=== PATIENT | female | born 1965 | race African-American/Black ===

== ENCOUNTER 2016-10-24 15:32 | Emergency (ER) | payer OTHER ==
[~2016-10-24] VITALS: Ht 167.6 cm; Wt 121.9 kg
[~2016-10-24 15:32] MED LIST: AMOX500C3 PO; ASPCH81X PO; ATOR-54 PO; DEXT1CAP PO; GABA-112 PO; GUAISYP4 PO; HYDR-5688 PO; ISOS30TA35 PO; METO25TA56 PO; MOME100A INH; NICO1DIS TD; NRV5 PO; PARO1TAB29 PO; PRLSR20 PO
[2016-10-24 15:37] VITALS: TEMP 36.7; O2SAT 96; Ht 167.6 cm; Wt 121.9 kg
[2016-10-24] MEDS ORDERED: HYDR-3983 PO (16:12)
--- NOTE | 2016-10-24 16:22 | DIAGNOSTIC IMAGING REPORT ---
CHEST ONE VIEW PORTABLE CLINICAL HISTORY: Atypical chest pain COMPARISON STUDY: 10/01/2016 FINDINGS: The cardiac and mediastinal contours are normal. There is no evidence of focal pulmonary consolidation. There is no evidence of failure. No pleural effusions are visualized.[ IMPRESSION: No active disease in the chest. Electronically signed by: Gómez Verma M.D. 10/24/2016 4:20 PM
[2016-10-24 16:26] LABS: HEMATOCRIT 39.8 % (37-47); MEAN CELL VOLUME 93.2 fL (80-100); MEAN CORPUSCULAR HEMOGLOBIN 30.7 pg (25-34); MEAN CORPUSCULAR HGB CONC 32.9 g/dl (32-36); MEAN PLATELET VOLUME 11.3 fL (7.4-10.4); PLATELET COUNT 241 K/uL (130-400); RED BLOOD COUNT 4.27 M/uL (4.2-5.4); WHITE BLOOD COUNT 8.29 K/uL (4.8-10.8)
[2016-10-24] MEDS ORDERED: METHYLPREDNISOLONE 125 MG VIAL IV STA (16:29)
[2016-10-24] MEDS ORDERED: NITROGLYCERIN 0.4 MG SL PER TAB CHARGE SL PRN (16:30)
[2016-10-24] MEDS ORDERED: ALBUT/IPRATROP 3MG/0.5MG NEB 3 ML VIAL INH ONE (16:30)
[2016-10-24 16:33] LABS: BUN/CREATININE RATIO 11.5 (10-20); CALCIUM 8.9 mg/dl (8.5-10.1); CREATININE 1.1 mg/dl (0.60-1.20)
[2016-10-24 16:36] LABS: INR 0.9 (0.9-1.1); PARTIAL THROMBOPLASTIN RATIO 0.9; PROTHROMBIN TIME (PATIENT) 10.1 SECONDS (9.0-12.0)
[2016-10-24 16:38] LABS: ALB/GLOB RATIO 0.8 (0.9-2); CKMB/CK RATIO 0.8 (0-3.0)
--- NOTE | 2016-10-24 16:43 | EMERGENCY ROOM VISIT NOTE ---
History Report prepared by Lisa: Alexis Garcia Under the Supervision of: Dr. Андрей Reyes D.O. First contact with patient: 16:13 Chief Complaint: CHEST PAIN Stated Complaint: CHST PAIN Nursing Triage Summary: Patient presents with a one day history of left sided chest pain with radiation to left arm. Patient has a chronic history of intermittent chest pain, usually resolved with indur. Patient denies any SOB. Audible wheezing noted, patient has a signifficant smokig history. Negative nausea/vomiting or diaphoresis. History of Present Illness The patient is a 51 year old female who presents to the Emergency Room via ambulance with complaints of persistent left sided chest pain beginning one day prior to arrival. She currently rates her discomfort as a 10/10 in severity. The patient associates shortness of breath, chest pain that radiates into her left shoulder and upper left back, left earache, difficulty swallowing, resolved headache, hot and cold episodes, and intermittent diaphoresis with today's symptoms. She states her chest pain has been worsening and constant today for the past fourteen hours. Her chest pain began yesterday in the early evening but went away while she slept. The patient notes a history of TIAs, in which, she experienced similar chest discomfort. She states she had a stress test, and two stents were placed around 2009. The patient notes she was last on Prednisone for three days, two weeks ago for similar throat symptoms. She states her doctor wanted her to be admitted but she declined at that time. The patient states she is working on quitting smoking, but she smoked four cigarettes yesterday. She notes she has an inhaler and a nebulizer that she uses every six hours. The patient notes a history of asthma. She states she was on a blood thinner, while she was in the hospital a couple of months ago. Pt denies LOC, fevers, visual changes, neck pain, nausea, vomiting, abdominal pain , melena, hematochezia, urinary symptoms, numbness, weakness, lymphadenopathy, rash, or other complaints. 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 A total of ten systems were reviewed and were otherwise negative. Past Medical & Surgical Medical Problems: (1) Acute coronary syndrome (2) Acute CVA (cerebrovascular accident) (3) Acute postoperative pain of right foot (4) Anxiety State Nos (5) Asthma exacerbation (6) Asthma, Unspecified (7) Asthmatic bronchitis (8) CAD (coronary artery disease) (9) Chest pain (10) Depressive Disorder Nec (11) Diab Estrellita Wo Compl, Type Ii Or Unspec Type, Not Uncntrld (12) Diabetes (13) Exacerbation of chronic back pain (14) Exacerbation of chronic back pain (15) Fall (16) Hyperlipidemia Nec/Nos (17) Hypertension Nos (18) Ischemic cerebrovascular accident (CVA) of frontal lobe (19) Left elbow pain (20) Lower back pain (21) Lumbar Disc Displacement (22) Lumbosacral Neuritis Nos (23) Migraine (24) Non-hemorrhagic cerebrovascular accident (25) Osteoarthros Nos-Unspec (26) Posttraumatic Stress Disorder (27) Precordial chest pain (28) Received intravenous tissue plasminogen activator (t-PA) in emergency department (29) Unstable angina Surgical Problems: (1) Stented coronary artery Family History Diabetes mellitus Hypertension Social History Smoking Status: Current Every Day Smoker Alcohol Use: none Drug Use: none Marital Status: in relationship Housing Status: lives with family Occupation Status: unemployed Current/Historical Medications Scheduled Amlodipine Besylate (Amlodipine Besylate), 5 MG PO QAM Amoxicillin (Amoxil), 500 MG PO BID Aspirin (Aspirin Chewable), 81 MG PO QAM Atorvastatin (Lipitor), 40 MG PO QPM Azithromycin (Zithromax Z-Shaan), 0 PO UD Gabapentin (Neurontin), 100 MG PO BID Isosorbide Mononitrate Ext Rel (Imdur Ext Rel), 30 MG PO DAILY Methylprednisolone (Medrol Dosepak), 1 PKT PO UD Metoprolol Tartrate (Lopressor) (Lopressor), 1 TAB PO BID Mometasone Furoate-Formoterol (Dulera 100/5 Mcg), 2 PUFFS INH BID Nicotine (Hm Nicotine Transdermal S), 1 DOSE TD DIRECTED Omeprazole (Prilosec), 20 MG PO QAM Paroxetine (Paxil), 40 MG PO QAM Scheduled PRN Albuterol Hfa (Ventolin Hfa), 2 PUFF INH Q4-6H PRN for Shortness of Breath Hydrocodone/Acetaminophen 7.5MG/325MG ([place] 7.5MG/325MG), 1 TAB PO QID PRN for Pain Maalox/Diphen/Visc. Yahir/Glyc (Magic Swizzle), 5 ML PO Q4H PRN for SORE THROAT Promethazine (Phenergan ), 12.5 MG PO Q12 PRN for Migraine Allergies Coded Allergies: No Known Allergies (Unverified , 10/24/16) Physical Exam Vital Signs Date Time Temp Pulse Resp B/P Pulse Ox O2 Delivery O2 Flow Rate FiO2 10/24/16 19:10 94 20 124/74 97 10/24/16 16:56 90 24 104/59 98 10/24/16 16:46 88 16 95 Room Air 10/24/16 16:13 93 10/24/16 15:42 96 Room Air 10/24/16 15:37 96 Room Air 10/24/16 15:37 36.7 94 22 143/97 95 Room Air Physical Exam GENERAL: Awake, alert, well-appearing, in no distress HENT: Normocephalic, atraumatic. Left ear was dull behind the TM without erythema. Right ear normal. Mild erythema to posterior pharynx, no obvious exudate. EYES: Normal conjunctiva. Sclera non-icteric. NECK: Anterior cervical lymphadenopathy with mild tenderness. Supple. No nuchal rigidity. FROM. No JVD. RESPIRATORY: Coarse rales in the bilateral upper lobes. Rhonchi throughout. Diminished in the bases. CARDIAC: Mildly tachycardic, normal rhythm. No murmurs, gallops, or rubs. ABDOMEN: Soft, non-distended. No tenderness to palpation. No rebound or guarding. No masses. RECTAL: Deferred. MUSCULOSKELETAL: Chest examination reveals no tenderness. The back is symmetrical on inspection without obvious abnormality. There is no CVA tenderness to palpation. No joint edema. LOWER EXTREMITIES: Calves are equal size bilaterally and non-tender. No edema. No discoloration. NEURO: Normal sensorium. No sensory or motor deficits noted. SKIN: No rash or jaundice noted. Medical Decision & Procedures ER Provider Diagnostic Interpretation: X-ray: Per my interpretation, radiologist review. CHEST ONE VIEW PORTABLE CLINICAL HISTORY: Atypical chest pain COMPARISON STUDY: 10/01/2016 FINDINGS: The cardiac and mediastinal contours are normal. There is no evidence of focal pulmonary consolidation. There is no evidence of failure. No pleural effusions are visualized.[ IMPRESSION: No active disease in the chest. Electronically signed by: Gómez Verma M.D. 10/24/2016 4:20 PM Laboratory Results 10/24/16 16:00 10/24/16 16:00 Test 10/24/16 16:00 10/24/16 16:09 Red Blood Count 4.27 M/uL (4.2-5.4) Mean Corpuscular Volume 93.2 fL (80-100) Mean Corpuscular Hemoglobin 30.7 pg (25-34) Mean Corpuscular Hemoglobin Concent 32.9 g/dl (32-36) RDW Standard Deviation 47.9 fL (36.4-46.3) RDW Coefficient of Variation 14.2 % (11.5-14.5) Mean Platelet Volume 11.3 fL (7.4-10.4) Prothrombin Time 10.1 SECONDS (9.0-12.0) Prothromb Time International Ratio 0.9 (0.9-1.1) Activated Partial Thromboplast Time 24.5 SECONDS (21.0-31.0) Partial Thromboplastin Ratio 0.9 Anion Gap 7.0 mmol/L (3-11) Est Creatinine Clear Calc Drug Dose 79.6 ml/min Estimated GFR () 66.8 Estimated GFR (Non- 57.7 BUN/Creatinine Ratio 11.5 (10-20) Calcium Level 8.9 mg/dl (8.5-10.1) Total Bilirubin 0.2 mg/dl (0.2-1) Aspartate Amino Transf (AST/SGOT) 20 U/L (15-37) Alanine Aminotransferase (ALT/SGPT) 24 U/L (12-78) Alkaline Phosphatase 98 U/L (45-117) Total Creatine Kinase 139 U/L (26-192) Creatine Kinase MB 1.1 ng/ml (0.5-3.6) Creatine Kinase MB Ratio 0.8 (0-3.0) Total Protein 6.8 gm/dl (6.4-8.2) Albumin 3.0 gm/dl (3.4-5.0) Globulin 3.8 gm/dl (2.5-4.0) Albumin/Globulin Ratio 0.8 (0.9-2) Bedside Troponin I 0.000 ng/ml (0-0.045) Laboratory results reviewed by me Medications Administered Medications (Trade) Dose Ordered Sig/Jaxon Route Start Time Stop Time Status Last Admin Dose Admin Nitroglycerin (Nitrostat Tab) 0.4 mg Q5M PRN SL 10/24/16 16:30 10/24/16 19:43 DC 10/24/16 16:41 0.4 MG Albuterol/ Ipratropium (Duoneb) 12 ml ONE ONCE INH 10/24/16 16:30 10/24/16 16:31 DC 10/24/16 16:46 12 ML Methylprednisolone Sodium Succinate (Solu-Medrol IV) 125 mg NOW STAT IV 10/24/16 16:29 10/24/16 16:30 DC 10/24/16 16:41 125 MG Azithromycin 500 mg NOW ONCE PO 10/24/16 18:15 10/24/16 18:16 DC 10/24/16 19:03 500 MG Dexamethasone/ Nystatin/ Diphenhydramine HCl/Sucrose/ Microcrystalline Cellulose/Barcode (Decadron Conc Soln/Mycostatin Susp/Benadryl Syrup/Ora-Sweet Syrup/Ora-Plus Susp. Vehicle) TODAY@1815 ONCE PO 10/24/16 18:15 10/24/16 18:51 DC 10/24/16 19:03 5 ML ECG Indication: chest pain Rate (beats per minute): 91 Rhythm: normal sinus Findings: ST elevation (Very mild J-point elevation in V1 and V2.), other ( Regular intervals and segments. Not specific for ischemia, more consistent with LVH.) ED Course 1618: The patient was evaluated in room B10. A complete history and physical exam was performed. It is noted on the portable chest x-ray: No obvious infiltrate or consolidation. 1629: Ordered Solu-Medrol IV 125 mg IV. 1630: Ordered Duoneb 12 ml INH, Nitrostat Tab 0.4 mg SL. 1803: Reevaluated the patient at this time, and she is feeling much better. The lung sounds are clear on the left. Mild expiratory wheeze on the right. While in the room, the patient was on the phone with her doctor, and she will follow up with her physician on Monday. I discussed results and discharge instructions: She verbalized understanding and agreement. The patient is ready for discharge. 1814: Ordered Azithromycin 500 mg PO. Medical Decision Differential diagnosis: Etiologies such as infections, reactive airway disease, pneumonia, pneumothorax , COPD, CHF, cardiac ischemia, pulmonary embolism, musculoskeletal, gastrointestinal, as well as others were entertained. MDM: Patient is a 51-year-old female with history of COPD still smoking 1-2 packs of cigarettes a day. She has had chest pain or shortness of breath since yesterday and constant. She does have a remote history of coronary artery disease that was diagnosed with a stress test which she subsequently underwent 2 coronary stents placed 2 years ago. She's had stable coronary disease since however she has had uncontrolled hypertension. He has been started on new blood pressure medication within the last month. The chest pain that she is currently having is more consistent with a COPD. Denies ever having a heart attack. During her ED evaluation and treatment she was given an hour-long continuous nebulizer with chest x-ray and blood work. Chest x-ray was negative for infiltrate or consolidation. Lab work was unrevealing for anything significant and undetectable troponins. Given that her chest pain and shortness of breath. Greater than 24 hours a single troponin is significant enough to rule out ACS. She feels much better after this CNT and steroids. She also complains of a mildly sore throat and runny nose. Will treat her URI symptoms with pharyngitis as well as bronchospasm COPD exacerbation with steroids and antibiotics and symptomatic treatment she is using Magic mouthwash in the past and would like to use at again. Patient was very much improved with emergency department care provided. She remained stable and comfortable with care will follow-up his primary care provider in a couple of days and take medications as prescribed. The patient's presentation and history is c/w the impression provided. A partial list of DDx that has been considered is listed above. By the evaluation outlined above other emergent etiologies such as those listed in the differential, as well as others, were deemed relatively unlikely. The patient has been informed about today's findings. All questions were answered to satisfaction and understanding. They are pleased with the care provided. Patient education and return instructions were discussed as per my usual and the patient was discharged in stable condition as agreed upon by the patient. The patient was referred for close follow-up and informed that they will need to call to schedule appointment during the next business hours. The chart was completed utilizing a scribe and [employer] Speech voice recognition software. Utilizing these services results in errors at time as they are imperfect. Grammatical errors, random word insertions, pronoun errors, and incomplete sentences are an occasional consequence of this system due to software limitations, ambient noise, and hardware issues. Any formal questions or concerns about the content, text, or information contained within the body of this dictation should be directly addressed to the physician for clarification. Impression Primary Impression: COPD exacerbation Additional Impressions: Bronchospasm, Nonspecific chest pain Scribe Attestation The scribe's documentation has been prepared under my direction and personally reviewed by me in its entirety. I confirm that the note above accurately reflects all work, treatment, procedures, and medical decision making performed by me. Departure Information Dispostion Home / Self-Care Prescriptions Methylprednisolone (MEDROL DOSEPAK) 4 Mg Shaan 1 PKT PO UD for 6 Days, #1 PKT Prov: Андрей Reyes JR., DO 10/24/16 Maalox/Diphen/Visc. Yahir/Glyc (Magic Swizzle) 240 Ml Btl 5 ML PO Q4H Y for SORE THROAT for 5 Days, #1 BTL 0 Refills Prov: Андрей Reyes JR., DO 10/24/16 Azithromycin (ZITHROMAX Z-SHAAN) 250 Mg Tab 0 PO UD, #1 PKT 2 TABS DAY 1, THEN 1 TAB DAILY FOR 4 DAYS Prov: Андрей Reyes JR., DO 10/24/16 Referrals Del Bucio D.[facility] (PCP) Forms HOME CARE DOCUMENTATION FORM, IMPORTANT VISIT INFORMATION, Work Instructions Patient Instructions A Signature Page, ED COPD Flare, ED Chest Pain Atypical Unkn Cause, ED Pharyngitis Viral, My [facility] Additional Instructions Please take all of your medications as directed to completion. See your doctor on Monday. If you are using your nebulizer more than every 3 hours return to the emergency department. Please return to the emergency department if you developed any severe chest pain or any severe shortness of breath not improved with nebulizer.
[2016-10-24 16:46] VITALS: PULSE 88; O2SAT 95
[2016-10-24] MEDS ORDERED: AZITTAB PO (18:12)
[2016-10-24] MEDS ORDERED: MGCS/ PO (18:12)
[2016-10-24] MEDS ORDERED: METH4PAK PO (18:12)
[2016-10-24] MEDS ORDERED: MAGIC MOUTHWASH PO ONE (18:15)
[2016-10-24] MEDS ORDERED: AZITHROMYCIN 250 MG TAB PO ONE (18:15)
[2016-10-24] MEDS ORDERED: DEXAMETHASONE CONC SOLN 3.75 MG, NYSTATIN SUSP 30 ML, DiphenhydrAMINE HCL SYRUP 300 MG,... PO ONE ×5 (18:15)
[2016-10-24 19:10] VITALS: BP 124/74; PULSE 94; O2SAT 97
[2016-11-23] MEDS ORDERED: NTRSLP4 SL (09:39)
[2016-11-23] MEDS ORDERED: IMDSR60 PO (09:39)
[2016-11-23] MEDS ORDERED: NCDT14 TD (09:39)
[2016-11-23] MEDS ORDERED: LPR25 PO (09:39)
[2016-12-14] MEDS ORDERED: GLC/500 PO (12:11)
[2016-12-14] MEDS ORDERED: VNTHFA/IN INH (14:02)
== END 2016-10-24 19:25 | disposition home or self-care (01) ==
LOC: EDBD 15:32 → C.EDB 15:33
DX: J44.1 Chronic obstructive pulmonary disease with (acute) exacerbation (principal); J98.01 Acute bronchospasm; R07.9 Chest pain, unspecified; I25.10 Atherosclerotic heart disease of native coronary artery without angina pectoris; E11.9 Type 2 diabetes mellitus without complications; I10 Essential (primary) hypertension; M19.90 Unspecified osteoarthritis, unspecified site; F32.9 Major depressive disorder, single episode, unspecified; F41.9 Anxiety disorder, unspecified; E78.5 Hyperlipidemia, unspecified; F17.210 Nicotine dependence, cigarettes, uncomplicated; Z91.81 History of falling; Z86.73 Personal history of transient ischemic attack (TIA), and cerebral infarction without residual deficits; Z79.82 Long term (current) use of aspirin; Z79.899 Other long term (current) drug therapy

== ENCOUNTER 2016-11-21 11:48 | Observation (INO) | payer OTHER ==
[~2016-11-21] VITALS: Ht 167.6 cm; Wt 120.3 kg
[~2016-11-21 11:48] MED LIST changes: -DEXT1CAP PO; -GUAISYP4 PO; +HYDR-3983 PO; -HYDR-5688 PO; +MGCS/ PO
[2016-11-21] MEDS ORDERED: TIZA4CAP PO (12:11)
[2016-11-21] MEDS ORDERED: GLC/500 PO (12:11)
[2016-11-21] MEDS ORDERED: PRLSR20 PO (12:11)
[2016-11-21] MEDS ORDERED: ZNTT/150 PO (12:11)
[2016-11-21] MEDS ORDERED: NRN300 PO (12:11)
[2016-11-21 12:18] LABS: MEAN CELL VOLUME 93.4 fL (80-100); MEAN CORPUSCULAR HGB CONC 33.2 g/dl (32-36); MEAN PLATELET VOLUME 11.2 fL (7.4-10.4); PLATELET COUNT 289 K/uL (130-400); RED BLOOD COUNT 4.71 M/uL (4.2-5.4); WHITE BLOOD COUNT 6.77 K/uL (4.8-10.8)
--- NOTE | 2016-11-21 12:27 | DIAGNOSTIC IMAGING REPORT ---
SINGLE VIEW CHEST CLINICAL HISTORY: Atypical chest pain. FINDINGS: An AP, portable, upright chest radiograph is compared to study dated 10/24/2016 and correlated with chest CT dated 03/31/2016. The examination is degraded by portable technique, large body habitus, and patient rotation. The cardiomediastinal silhouette is unremarkable. There is mild elevation of left hemidiaphragm and minimal bibasilar atelectasis. The lungs and pleural spaces are clear. No pneumothorax is seen. The bony thorax is grossly intact. IMPRESSION: No active disease in the chest. Electronically signed by: Marin De La Rosa M.D. 11/21/2016 12:26 PM Dictated Date/Time: 11/21/2016 12:24 PM
[2016-11-21 12:28] LABS: INR 0.9 (0.9-1.1); PARTIAL THROMBOPLASTIN RATIO 0.9; PROTHROMBIN TIME (PATIENT) 10.1 SECONDS (9.0-12.0)
[2016-11-21 12:38] LABS: BUN/CREATININE RATIO 16.4 (10-20); CALCIUM 9.2 mg/dl (8.5-10.1); CREATININE 0.84 mg/dl (0.60-1.20); POTASSIUM 4.1 mmol/L (3.5-5.1)
[2016-11-21 12:43] LABS: ALB/GLOB RATIO 0.9 (0.9-2); CKMB/CK RATIO 1.1 (0-3.0)
[2016-11-21] MEDS ORDERED: MoRPHine SULFATE 4 MG/ML 1 ML CARP\\VIAL IV STA (12:48)
--- NOTE | 2016-11-21 12:56 | EMERGENCY ROOM VISIT NOTE ---
History First contact with patient: 12:37 Chief Complaint: CHEST PAIN Stated Complaint: CHEST PAIN Nursing Triage Summary: PT PRESENTS VIA ALS FROM HOME. PT HAD A SUDDEN ONSET OF SUBSTERNAL "SQUEEZING IN NATURE" CP RADIATING INTO HER BACK, NECK, AND LEFT SHOULDER. PT HAS HX OF CAD. 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 EN [facility] ADMINISTERED SL NITRO SPRAY X3 AND 324 ASA. PT ALSO VERBALIZES FOR THE PAST 4 DAYS SHE HAS HAD A GI ILLNESS WITH NAUSEA AND VOMITING BUT THAT SEEMS TO HAVE RESOLVED TODAY. History of Present Illness The patient is a 51 year old female who presents to the Emergency Room with complaints of chest pain. The patient states she had a GI bug last week for 4 days but that has completely resolved. The patient states she has had a cough and some shortness of breath over the last week. The patient states that she had a headache all day today. She states that around 11 AM she developed a sudden onset of pain in the left side of her chest that radiates to her neck. She states she noticed some tingling in her left hand. The ambulance was summoned. She was given nitroglycerin and aspirin in the ambulance. She states that the third dose of nitroglycerin took her pain from a 10/10 to a 7/ 10. The patient denies any fevers. She denies any weakness. She denies any abdominal pain, nausea or vomiting. The patient is a smoker. She reports history of TIA. The patient states that she had a negative cardiac catheterization 4-5 months ago. The patient is a diabetic. She is obese. She has hyperlipidemia. She states her father age 52 of a myocardial infarction. Review of Systems A 10 system review of systems was completed with positives and pertinent negatives listed in the HPI. Past Medical/Surgical History Medical Problems: (1) Acute coronary syndrome (2) Acute CVA (cerebrovascular accident) (3) Acute postoperative pain of right foot (4) Anxiety State Nos (5) Asthma exacerbation (6) Asthma, Unspecified (7) Asthmatic bronchitis (8) CAD (coronary artery disease) (9) Chest pain (10) Depressive Disorder Nec (11) Diab Estrellita Wo Compl, Type Ii Or Unspec Type, Not Uncntrld (12) Diabetes (13) Exacerbation of chronic back pain (14) Exacerbation of chronic back pain (15) Fall (16) Hyperlipidemia Nec/Nos (17) Hypertension Nos (18) Ischemic cerebrovascular accident (CVA) of frontal lobe (19) Left elbow pain (20) Lower back pain (21) Lumbar Disc Displacement (22) Lumbosacral Neuritis Nos (23) Migraine (24) Non-hemorrhagic cerebrovascular accident (25) Osteoarthros Nos-Unspec (26) Posttraumatic Stress Disorder (27) Precordial chest pain (28) Received intravenous tissue plasminogen activator (t-PA) in emergency department (29) Unstable angina Surgical Problems: (1) Stented coronary artery Family History Diabetes mellitus Hypertension Social History Smoking Status: Current Every Day Smoker Alcohol Use: none Drug Use: none Marital Status: in relationship Housing Status: lives with family Occupation Status: unemployed Current/Historical Medications Scheduled Amlodipine Besylate (Amlodipine Besylate), 5 MG PO QAM Aspirin (Aspirin Chewable), 81 MG PO QAM Atorvastatin (Lipitor), 40 MG PO QPM Gabapentin (Gabapentin), 300 MG PO Q12 Isosorbide Mononitrate Ext Rel (Imdur Ext Rel), 30 MG PO DAILY Metformin Hcl (Glucophage), 1,000 MG PO QAM Metformin Hcl (Glucophage), 500 MG PO QPM Metoprolol Tartrate (Lopressor) (Lopressor), 12.5 MG PO BID Mometasone Furoate-Formoterol (Dulera 100/5 Mcg), 2 PUFFS INH BID Omeprazole (Prilosec), 4 MG PO DAILY Paroxetine (Paxil), 40 MG PO QAM Ranitidine (Zantac), 150 MG PO HS Tizanidine (Zanaflex), 2-4 MG PO TID Scheduled PRN Albuterol Hfa (Ventolin Hfa), 2 PUFF INH Q4-6H PRN for Shortness of Breath Hydrocodone/Acetaminophen 7.5MG/325MG ([place] 7.5MG/325MG), 1 TAB PO QID PRN for Pain Promethazine (Phenergan ), 12.5 MG PO Q12 PRN for Migraine Allergies Coded Allergies: No Known Allergies (Unverified , 10/24/16) Physical Exam Vital Signs Date Time Temp Pulse Resp B/P Pulse Ox O2 Delivery O2 Flow Rate FiO2 11/21/16 14:28 135/92 11/21/16 14:18 104 21 98 11/21/16 13:58 119/73 1/30/17 13:48 97 20 97 11/21/16 13:28 129/81 11/21/16 13:23 111/88 11/21/16 13:14 102 11/21/16 13:03 100 20 116/76 97 Nasal Cannula 2.0 11/21/16 13:02 116/76 11/21/16 12:13 98 Nasal Cannula 2.0 11/21/16 12:13 98 Nasal Cannula 2.0 11/21/16 11:59 96 Room Air 11/21/16 11:59 36.7 110 20 136/89 96 Room Air Physical Exam VITALS: Vitals are noted on the nurse's note and reviewed by myself. Vital signs stable. GENERAL: This is a 51-year-old female, in no acute distress, nondiaphoretic, well-developed well-nourished. SKIN: The skin was without rashes, erythema, edema, or bruising. There is no tenting of the skin. Capillary reflex less than 2 seconds. HEAD: Normocephalic atraumatic. EARS: The external ears are normal in appearance. EYES: Pupils equal round and reactive to light and accommodation. Conjunctivae without injection, sclerae without icterus. Extraocular movements intact. NOSE: Patent, turbinates without inflammation or discharge. MOUTH: Mucous membranes moist. Tonsils are not enlarged. Pharynx without erythema or exudate. Uvula midline. Airway patent. Tongue does not deviate. NECK: Supple without nuchal rigidity. No JVD. HEART: Regular rate and rhythm without murmurs gallops or rubs. LUNGS: Clear to auscultation bilaterally without wheezes, rales or rhonchi. No retractions or accessory muscle use. ABDOMEN: Positive bowel sounds x 4. Soft, nontender, without masses or organomegaly. Wilkes sign negative. MUSCULOSKELETAL: No muscle atrophy, erythema, or edema noted. Full range of motion without joint tenderness in all extremities. With passive range of motion, the patient seems to have weakness in the left lower extremity but when asked to lift the leg off the bed she does so without any difficulty and can hold the left leg up off the bed without any difficulty. The mini extremities are otherwise unremarkable. NEURO: Patient was alert and oriented to person place and time. Cranial nerves II through XII intact. No focal neurological deficits. Medical Decision & Procedures ER Provider Diagnostic Interpretation: SINGLE VIEW CHEST CLINICAL HISTORY: Atypical chest pain. FINDINGS: An AP, portable, upright chest radiograph is compared to study dated 10/24/2016 and correlated with chest CT dated 03/31/2016. The examination is degraded by portable technique, large body habitus, and patient rotation. The cardiomediastinal silhouette is unremarkable. There is mild elevation of left hemidiaphragm and minimal bibasilar atelectasis. The lungs and pleural spaces are clear. No pneumothorax is seen. The bony thorax is grossly intact. IMPRESSION: No active disease in the chest. [~ rep ct add3]] CT SCAN OF THE BRAIN WITHOUT IV CONTRAST CLINICAL HISTORY: Headache. COMPARISON STUDY: CT the brain dated 12/28/2015. MRI of the brain dated 12/29/2015. TECHNIQUE: Unenhanced axial CT scan of the brain is performed from the vertex to the skull base. CT DOSE: 709.48 mGy.cm FINDINGS: Brain parenchyma: The brain parenchyma is normal in appearance. There is no hemorrhage, mass effect, or evidence of acute territorial ischemia by CT criteria. Jose-white matter is preserved. No extra-axial fluid collection is seen. Ventricles, sulci, cisterns: Prominent secondary to involutional change. Intracranial vasculature: There is atherosclerotic calcification of the cavernous carotid arteries. Calvarium: Unremarkable. Sinuses and mastoids: The visualized paranasal sinuses are clear. The mastoid air cells are well pneumatized. Orbits: Postoperative change is identified in the right orbit. The bony orbits are grossly intact. IMPRESSION: There is no hemorrhage, mass effect, or evidence of acute territorial ischemia by CT criteria. Laboratory Results Test 11/21/16 12:00 11/21/16 12:10 Prothrombin Time 10.1 SECONDS (9.0-12.0) Prothromb Time International Ratio 0.9 (0.9-1.1) Activated Partial Thromboplast Time 24.3 SECONDS (21.0-31.0) Partial Thromboplastin Ratio 0.9 Total Bilirubin 0.4 mg/dl (0.2-1) Aspartate Amino Transf (AST/SGOT) 14 U/L (15-37) Alanine Aminotransferase (ALT/SGPT) 25 U/L (12-78) Alkaline Phosphatase 102 U/L (45-117) Total Protein 8.0 gm/dl (6.4-8.2) Albumin 3.7 gm/dl (3.4-5.0) Globulin 4.3 gm/dl (2.5-4.0) Albumin/Globulin Ratio 0.9 (0.9-2) Bedside Troponin I 0.000 ng/ml (0-0.045) Medications Administered Medications (Trade) Dose Ordered Sig/Jaxon Route Start Time Stop Time Status Last Admin Dose Admin Morphine Sulfate (MoRPHine SULFATE INJ) 4 mg NOW STAT IV 11/21/16 12:48 11/21/16 15:16 DC 11/21/16 13:07 4 MG Procedure 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 They maintained a normal sinus rhythm without ectopy. ECG Indication: chest pain Rate (beats per minute): 103 Rhythm: sinus tachycardia Findings: nonspecific-ST abn Change: no significant change ED Course The patient was seen and examined. Previous visits were reviewed. The patient does not have a fever or leukocytosis. She does not have any significant electrolyte abnormalities. Cardiac enzymes were not elevated. INR was 0.9. EKG reveals nonspecific ST-T wave changes which is not significantly changed from previous CT scan of the brain does not reveal any acute abnormality The patient was given 4 mg IV morphine The patient presents with chest pain that radiates to her neck and left arm. She is obese. She has a history of diabetes, hyperlipidemia and hypertension. Her father of an AK at age 52. The patient also reports a history of TIA. The patient would benefit from further evaluation and management in hospital. I discussed the case with the [facility] hospitalist service and they will evaluate the patient. The case was discussed with Dr. Horton who agrees with the assessment and treatment plan Medical Decision DIFFERENTIAL DIAGNOSIS: Aortic dissection, myocarditis, pericarditis, cervical disc disease, costochondritis, herpes zoster, rib fracture, pleuritis, pneumonia , pulmonary embolus, tension pneumothorax, anxiety disorder, somatoform disorder , choledocholithiasis, status, esophagitis, esophageal spasm, esophageal reflux , esophageal rupture, pancreatitis, peptic ulcer disease, cardiac ischemia, ST elevation AK, acute coronary syndrome, arrhythmia, coronary artery vasospasm. vavular heart disease, coronary artery disease, TIA, CVA, among others. Impression Primary Impression: Precordial chest pain Additional Impression: Headache Departure Information Referrals Del Bucio D.O.Int.Med. (PCP) Patient Instructions My [facility] Problem Qualifiers
--- NOTE | 2016-11-21 13:25 | DIAGNOSTIC IMAGING REPORT ---
CT SCAN OF THE BRAIN WITHOUT IV CONTRAST CLINICAL HISTORY: Headache. COMPARISON STUDY: CT the brain dated 12/28/2015. MRI of the brain dated 12/29/2015. TECHNIQUE: Unenhanced axial CT scan of the brain is performed from the vertex to the skull base. CT DOSE: 709.48 mGy.cm FINDINGS: Brain parenchyma: The brain parenchyma is normal in appearance. There is no hemorrhage, mass effect, or evidence of acute territorial ischemia by CT criteria. Jose-white matter is preserved. No extra-axial fluid collection is seen. Ventricles, sulci, cisterns: Prominent secondary to involutional change. Intracranial vasculature: There is atherosclerotic calcification of the cavernous carotid arteries. Calvarium: Unremarkable. Sinuses and mastoids: The visualized paranasal sinuses are clear. The mastoid air cells are well pneumatized. Orbits: Postoperative change is identified in the right orbit. The bony orbits are grossly intact. IMPRESSION: There is no hemorrhage, mass effect, or evidence of acute territorial ischemia by CT criteria. Electronically signed by: Marin De La Rosa M.D. 11/21/2016 1:24 PM Dictated Date/Time: 11/21/2016 1:20 PM
[2016-11-21] MEDS ORDERED: ONDANSETRON INJ 2 MG/ML 2 ML VIAL IV PRN (14:45)
[2016-11-21] MEDS ORDERED: ALUMINUM/MAGNESIUM/SIMETH (MAALOX MAX) 30 ML UDC PO PRN (14:45)
[2016-11-21] MEDS ORDERED: ACETAMINOPHEN 325 MG TAB PO PRN (14:45)
[2016-11-21] MEDS ORDERED: POLYETHYLENE (MIRALAX) 17 GM PACK PO PRN (14:45)
[2016-11-21] MEDS ORDERED: HYDROCODONE/ACETAMINOPHEN 7.5/325MG TAB PO PRN (14:45)
[2016-11-21] MEDS ORDERED: MAGNESIUM HYDROXIDE SUSP 30 ML UDC PO PRN (14:45)
[2016-11-21] MEDS ORDERED: NITROGLYCERIN 0.4 MG SL PER TAB CHARGE SL PRN (14:45)
--- NOTE | 2016-11-21 14:47 | History and Physical ---
History & Physical Date & Time of Service: Nov 21, 2016 at 14:43 Chief Complaint: Chest Pain Primary Care Physician: Del Bucio D.O.Int.Med. History of Present Illness Source: patient, clinic records, hospital records Ms. Islas is a 51 y/o female with PMHx of CAD S/P PCI x 2 with Stent, TIA, Asthma, T2DM, HLD, HTN, Obesity, Tobacco Abuse who presents to the ED c/o sudden onset of L sided CP with radiation to the back and neck with numbness/tingling of L arm that started at 1100 on 11/21/16. She states when she woke up she was her normal self and was standing in the kitchen cooking when the CP occurred. Per patient pointing the area of the most pain is under the L breast with radiation up to the neck. She describes this pain as an ache with exacerbation of a sharp sensation. Rates the pain a 10/10 with improvement to 7/ 10 with Nitro SL spray x 3 and ASA 324 mg en route to ED. Exacerbated with deep breathing but cannot delineate alleviating factors. Associated SOB when pain exacerbates. Reports multiple episodes of similar chest pain in the past prior to the catheterizations. Also reports chronic neck and back pain but states the pain today is not similar to the pain she has from that. Does report LUE and LLE weakness that is greater than baseline. Reports recent GI illness over passed 4 days that has resolved today. Reports nausea and vomiting with this illness. Her last cardiac catheterization was 2014 which was clean. Per [employer], suggestion of Prinzmetal's angina. FMHx significant for father who at 52 due to [place]. She denies fever/chills, N/V, abdominal pain, constipation /diarrhea. In the ED, cardiac enzymes initially negative. EKG with sinus tachy without ST elevations or ischemia present. Head CT negative for acute intracranial findings. CXR without infectious findings. Past Medical/Surgical History Medical Problems: (1) Acute coronary syndrome Status: Resolved (2) Acute CVA (cerebrovascular accident) Status: Resolved (3) Acute postoperative pain of right foot Status: Resolved (4) Anxiety State Nos Status: Chronic (5) Asthma, Unspecified Status: Chronic (6) CAD (coronary artery disease) Status: Chronic (7) Chest pain Status: Resolved (8) Depressive Disorder Nec Status: Chronic (9) Diab Estrellita Wo Compl, Type Ii Or Unspec Type, Not Uncntrld Status: Chronic (10) Diabetes Status: Chronic (11) Exacerbation of chronic back pain Status: Resolved (12) Exacerbation of chronic back pain Status: Resolved (13) Fall Status: Resolved (14) Hyperlipidemia Nec/Nos Status: Chronic (15) Hypertension Nos Status: Chronic (16) Ischemic cerebrovascular accident (CVA) of frontal lobe Status: Resolved (17) Left elbow pain Status: Resolved (18) Lower back pain Status: Chronic (19) Lumbar Disc Displacement Status: Chronic (20) Lumbosacral Neuritis Nos Status: Chronic (21) Migraine Status: Chronic (22) Non-hemorrhagic cerebrovascular accident Status: Resolved (23) Osteoarthros Nos-Unspec Status: Chronic (24) Posttraumatic Stress Disorder Status: Chronic (25) Precordial chest pain Status: Resolved (26) Received intravenous tissue plasminogen activator (t-PA) in emergency department Status: Resolved (27) Unstable angina Status: Resolved Surgical Problems: (1) Stented coronary artery Status: Chronic Family History Diabetes mellitus Hypertension Social History Smoking Status: Current Every Day Smoker Drug Use: none Marital Status: in relationship Housing status: lives with significant other Occupational Status: unemployed Immunizations History of Influenza Vaccine: Yes Influenza Vaccine Date: Aug 17, 2016 History of Tetanus Vaccine?: No History of Pneumococcal: Yes Pneumococcal Date: Sep 07, 2015 History of Hepatitis B Vaccine: No Multi-Drug Resistant Organisms History of MDRO: No Allergies Coded Allergies: No Known Allergies (Unverified , 10/24/16) Home Medications Scheduled Amlodipine Besylate (Amlodipine Besylate), 5 MG PO QAM Aspirin (Aspirin Chewable), 81 MG PO QAM Atorvastatin (Lipitor), 40 MG PO QPM Gabapentin (Gabapentin), 300 MG PO Q12 Isosorbide Mononitrate Ext Rel (Imdur Ext Rel), 30 MG PO DAILY Metformin Hcl (Glucophage), 1,000 MG PO QAM Metformin Hcl (Glucophage), 500 MG PO QPM Metoprolol Tartrate (Lopressor) (Lopressor), 12.5 MG PO BID Mometasone Furoate-Formoterol (Dulera 100/5 Mcg), 2 PUFFS INH BID Omeprazole (Prilosec), 4 MG PO DAILY Paroxetine (Paxil), 40 MG PO QAM Ranitidine (Zantac), 150 MG PO HS Tizanidine (Zanaflex), 2-4 MG PO TID Scheduled PRN Albuterol Hfa (Ventolin Hfa), 2 PUFF INH Q4-6H PRN for Shortness of Breath Hydrocodone/Acetaminophen 7.5MG/325MG ([place] 7.5MG/325MG), 1 TAB PO QID PRN for Pain Promethazine (Phenergan ), 12.5 MG PO Q12 PRN for Migraine Review of Systems Constitutional: No chills, No fever Eyes: No worsening of vision Respiratory: + cough, + shortness of breath Cardiovascular: + chest pain Abdomen: No nausea, No pain, No vomiting Musculoskeletal: + joint pain (neck pain) Genitourinary - Female: No dysuria Neurologic: + numbness/tingling (L arm), + weakness (LUE and LLE) Integumentary: No rash Physical Exam Vital Signs Date Time Temp Pulse Resp B/P Pulse Ox O2 Delivery O2 Flow Rate FiO2 11/21/16 13:14 102 11/21/16 13:03 100 20 116/76 97 Nasal Cannula 2.0 11/21/16 12:13 98 Nasal Cannula 2.0 11/21/16 12:13 98 Nasal Cannula 2.0 11/21/16 11:59 96 Room Air 11/21/16 11:59 36.7 110 20 136/89 96 Room Air General Appearance: WD/WN, + mild distress, + obese Head: normocephalic, atraumatic Eyes: PERRL, sclerae normal ENT: hearing grossly normal Neck: supple, no JVD, trachea midline Respiratory/Chest: lungs clear, normal breath sounds, no respiratory distress, no accessory muscle use Cardiovascular: no gallop, no murmur, + tachycardia Abdomen/GI: normal bowel sounds, non tender, soft Extremities/Musculoskelatal: no pedal edema Neurologic/Psych: alert, oriented x 3, + motor weakness (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, flexion, and extension; RLE weakness to dorsiflexion/plantarflexion and flexion at hip) Skin: normal color, warm/dry Diagnostics Laboratory Results Results Past 24 Hours Test 11/21/16 12:00 11/21/16 12:10 Range/Units White Blood Count 6.77 4.8-10.8 K/uL Red Blood Count 4.71 4.2-5.4 M/uL Hemoglobin 14.6 12.0-16.0 g/dL Hematocrit 44.0 37-47 % Mean Corpuscular Volume 93.4 80-100 fL Mean Corpuscular Hemoglobin 31.0 25-34 pg Mean Corpuscular Hemoglobin Concent 33.2 32-36 g/dl RDW Standard Deviation 47.9 36.4-46.3 fL RDW Coefficient of Variation 14.0 11.5-14.5 % Platelet Count 289 130-400 K/uL Mean Platelet Volume 11.2 7.4-10.4 fL Prothrombin Time 10.1 9.0-12.0 SECONDS Prothromb Time International Ratio 0.9 0.9-1.1 Activated Partial Thromboplast Time 24.3 21.0-31.0 SECONDS Partial Thromboplastin Ratio 0.9 Sodium Level 140 136-145 mmol/L Potassium Level 4.1 3.5-5.1 mmol/L Chloride Level 107 98-107 mmol/L Carbon Dioxide Level 23 21-32 mmol/L Anion Gap 10.0 3-11 mmol/L Blood Urea Nitrogen 14 7-18 mg/dl Creatinine 0.84 0.60-1.20 mg/dl Est Creatinine Clear Calc Drug Dose 104.2 ml/min Estimated GFR () 92.6 Estimated GFR (Non- 79.9 BUN/Creatinine Ratio 16.4 10-20 Random Glucose 100 70-99 mg/dl Calcium Level 9.2 8.5-10.1 mg/dl Total Bilirubin 0.4 0.2-1 mg/dl Aspartate Amino Transf (AST/SGOT) 14 15-37 U/L Alanine Aminotransferase (ALT/SGPT) 25 12-78 U/L Alkaline Phosphatase 102 45-117 U/L Total Creatine Kinase 97 26-192 U/L Creatine Kinase MB 1.1 0.5-3.6 ng/ml Creatine Kinase MB Ratio 1.1 0-3.0 Total Protein 8.0 6.4-8.2 gm/dl Albumin 3.7 3.4-5.0 gm/dl Globulin 4.3 2.5-4.0 gm/dl Albumin/Globulin Ratio 0.9 0.9-2 Bedside Troponin I 0.000 0-0.045 ng/ml Diagnostic Radiology CT SCAN OF THE BRAIN WITHOUT IV CONTRAST CLINICAL HISTORY: Headache. COMPARISON STUDY: CT the brain dated 12/28/2015. MRI of the brain dated 12/29/2015. TECHNIQUE: Unenhanced axial CT scan of the brain is performed from the vertex to the skull base. CT DOSE: 709.48 mGy.cm FINDINGS: Brain parenchyma: The brain parenchyma is normal in appearance. There is no hemorrhage, mass effect, or evidence of acute territorial ischemia by CT criteria. Jose-white matter is preserved. No extra-axial fluid collection is seen. Ventricles, sulci, cisterns: Prominent secondary to involutional change. Intracranial vasculature: There is atherosclerotic calcification of the cavernous carotid arteries. Calvarium: Unremarkable. Sinuses and mastoids: The visualized paranasal sinuses are clear. The mastoid air cells are well pneumatized. Orbits: Postoperative change is identified in the right orbit. The bony orbits are grossly intact. IMPRESSION: There is no hemorrhage, mass effect, or evidence of acute territorial ischemia by CT criteria. SINGLE VIEW CHEST CLINICAL HISTORY: Atypical chest pain. FINDINGS: An AP, portable, upright chest radiograph is compared to study dated 10/24/2016 and correlated with chest CT dated 03/31/2016. The examination is degraded by portable technique, large body habitus, and patient rotation. The cardiomediastinal silhouette is unremarkable. There is mild elevation of left hemidiaphragm and minimal bibasilar atelectasis. The lungs and pleural spaces are clear. No pneumothorax is seen. The bony thorax is grossly intact. IMPRESSION: No active disease in the chest. EKG Sinus tachycardia Possible Left atrial enlargement Left ventricular hypertrophy Nonspecific T wave abnormality Abnormal ECG When compared with ECG of 24-OCT-2016 15:37, No significant change was found Confirmed by BLAINE SIERRA MD ([id number]) on 11/21/2016 2:33:47 PM Impression Assessment and Plan Ms. Islas is a 51 y/o female with PMHx of CAD S/P PCI x 2 with Stent, TIA, Asthma, T2DM, HLD, HTN, Obesity, Tobacco Abuse who presents to the ED c/o sudden onset of L sided CP with radiation to the back and neck with numbness/tingling of L arm that started at 1100 on 11/21/16. Chest Pain: ACS vs Prinzmetal's vs Musculoskeletal: - Patient pinpoints pain in L Chest under breast with radiation and describes this as the pain she has had in the past prior to catheterization -- Significant risk factors of obesity, tobacco abuse, known CAD, T2DM, HTN, HLD - Morphine 2 mg IV PRN and Nitro 0.4 mg SL PRN - ASA 81 mg daily - Serial cardiac enzymes - Stress Echo HTN; HLD; CAD S/P PCI x 2: - Amlodipine 5 mg daily - Atorvastatin 40 mg daily - Imdur 30 mg daily - Metoprolol Tartrate 12.5 mg BID LUE and LLE Weakness: - Patient reports baseline L sided weakness but reports symptoms worsening today - MRI Brain - pending T2DM: - Hold Metformin - due to plan for MRI Combo - SSI - goal range 100-150; correction factor 35 - HbA1c GERD: - Zantac 150 mg HS - Protonix 40 mg daily DVT Prophylaxis: - Will withhold chemical prophylaxis until MRI confirms no intracranial findings Code Status: - FULL RESUSCITATION Level of Care Telemetry Resuscitation Status FULL RESUSCITATION VTE Prophylaxis VTE Risk Assessment Done? Y/N: Yes Risk Level: Moderate Assessment and Plan Attending Addendum: I have physically seen and examined this patient, have directed their medical care, have supervised the PA's activity, and agree with the H&P as noted above, with the following changes: NONE.
[2016-11-21] MEDS ORDERED: IV FLUIDS COMPLETED PRN (15:15)
[2016-11-21] MEDS: MoRPHine SULFATE 2 MG/ML CARP IV PRN ×3 (15:28→20:59)
[2016-11-21 15:45] VITALS: BP 107/70; PULSE 105; TEMP 36.7; O2SAT 97
[2016-11-21 15:59] VITALS: BP 184/85; PULSE 75; TEMP 36.4; O2SAT 95
[2016-11-21] MEDS ORDERED: GLUCOSE 10 TABS/TUBE PO PRN (16:00)
[2016-11-21] MEDS ORDERED: GLUCOSE 40% GEL 15 GM TUBE PO PRN (16:00)
[2016-11-21] MEDS ORDERED: DEXTROSE 50% 50 ML SYR IV PRN (16:00)
[2016-11-21] MEDS ORDERED: GLUCAGON FOR INJ 1 MG VIAL SQ PRN (16:00)
[2016-11-21] MEDS: INSULIN ASPART 100 UNITS/ML 3 ML PEN SC SCH ×2 (16:30→21:09)
[2016-11-21] MEDS ORDERED: NICOTINE 14 MG/24 HR TDSY TD PRN (17:30)
[2016-11-21 17:42] VITALS: BP 138/78; PULSE 111
[2016-11-21 19:04] VITALS: BP 137/87; PULSE 112; TEMP 37; O2SAT 95
[2016-11-21 20:54] VITALS: BP 125/80; PULSE 110; O2SAT 95
[2016-11-21] MEDS: GABAPENTIN 300 MG CAP PO SCH (21:06)
[2016-11-21] MEDS: ATORVASTATIN 40 MG TAB PO SCH (21:06)
[2016-11-21] MEDS: RANITIDINE HCL 150 MG TAB PO SCH (21:06)
[2016-11-21] MEDS: METOPROLOL TARTRATE 25 MG TAB PO SCH (21:06)
[2016-11-21] MEDS ORDERED: GADAVIST IV PRN (23:00)
[2016-11-21 23:46] VITALS: BP 125/80; PULSE 110; PULSE 111; TEMP 37; O2SAT 97; Ht 167.6 cm; Wt 120.3 kg
[2016-11-22] VITALS (10 sets, daily range): BP systolic 113–167; BP diastolic 72–95; PULSE 74–107; TEMP 36.4–36.8; O2SAT 92–99
[2016-11-22] MEDS: MoRPHine SULFATE 2 MG/ML CARP IV PRN ×6 (01:02→20:13)
[2016-11-22 01:27] LABS: CKMB/CK RATIO 0.6 (0-3.0)
[2016-11-22 06:36] LABS: BLOOD UREA NITROGEN 16 mg/dl (7-18); CALCIUM 8.7 mg/dl (8.5-10.1); CARBON DIOXIDE 23 mmol/L (21-32); CHLORIDE 108 mmol/L (98-107); CREATININE 0.83 mg/dl (0.60-1.20); GLUCOSE 110 mg/dl (70-99); SODIUM 140 mmol/L (136-145)
--- NOTE | 2016-11-22 06:48 | DIAGNOSTIC IMAGING REPORT ---
MRI OF THE BRAIN WITHOUT AND WITH IV CONTRAST CLINICAL HISTORY: Increasing left-sided weakness COMPARISON STUDY: CT scan dated 11/21/2016, MRI the brain dated 12/29/2015. TECHNIQUE: MRI of the brain was performed from the vertex to the skull base utilizing various T1 and T2 weighted sequences. Following the IV administration of 12 mL of Gadavist contrast, additional enhanced images were obtained. FINDINGS: Sagittal T1, axial diffusion, proton density and T2 weighted axial, coronal FLAIR, and pre and post axial T1-weighted images were acquired. These were supplemented with post gadolinium coronal T1 weighted images. No intra or extra-axial mass lesions are visualized. Axial diffusion-weighted images reveal no evidence of acute or subacute infarction. There is no evidence of ventricular dilatation. Proton density T2-weighted and FLAIR images reveal a few small foci of increased T2 signal within the white matter, likely a small vessel basis. The largest is located within the right frontal lobe measuring 4 mm. This remains unchanged from the preceding study. There is also a small subtle focus of increased T2 signal within the right lentiform nucleus, possibly related to an old lacunar infarct. There are no abnormal flow voids. There is no evidence of pathologic enhancement. There is a small right frontal scalp lipoma. IMPRESSION: No acute intracranial findings. No evidence of acute or subacute infarction. No evidence of intracranial mass. Electronically signed by: Gómez Verma M.D. 11/22/2016 6:46 AM Dictated Date/Time: 11/22/2016 6:42 AM
[2016-11-22 07:04] LABS: HEMATOCRIT 39.2 % (37-47); MEAN CELL VOLUME 95.4 fL (80-100); MEAN CORPUSCULAR HEMOGLOBIN 30.9 pg (25-34); MEAN PLATELET VOLUME 10.9 fL (7.4-10.4); PLATELET COUNT 248 K/uL (130-400); RED BLOOD COUNT 4.11 M/uL (4.2-5.4); WHITE BLOOD COUNT 6.88 K/uL (4.8-10.8)
[2016-11-22 07:10] LABS: ESTIMATED AVERAGE GLUCOSE 160 mg/dl; HA1C FLAG Normal (Normal)
[2016-11-22 07:12] LABS: MEAN CORPUSCULAR HGB CONC 32.4 g/dl (32-36)
[2016-11-22 07:27] LABS: MAGNESIUM 2.1 mg/dl (1.8-2.4); POTASSIUM 4.3 mmol/L (3.5-5.1)
[2016-11-22] MEDS: PANTOprazole SOD 40 MG TAB PO SCH (08:28)
[2016-11-22] MEDS: GABAPENTIN 300 MG CAP PO SCH ×2 (08:28→20:15)
[2016-11-22] MEDS: METOPROLOL TARTRATE 25 MG TAB PO SCH ×2 (08:28→20:17)
[2016-11-22] MEDS: ASPIRIN 81 MG ECTAB PO SCH (08:29)
[2016-11-22] MEDS: AMLODIPINE BESYLATE 5 MG TAB PO SCH (08:29)
[2016-11-22] MEDS: PAROXETINE 20 MG TAB PO SCH (08:29)
[2016-11-22] MEDS: INSULIN ASPART 100 UNITS/ML 3 ML PEN SC SCH ×4 (08:30→20:24)
[2016-11-22] MEDS ORDERED: ISOSORBIDE MONONITRATE 30 MG TABCR PO SCH (09:00)
--- NOTE | 2016-11-22 11:01 | Progress Note ---
Subjective Date of Service: Nov 22, 2016. Subjective Pt evaluation today including: conversation w/ patient, conversation w/ family , physical exam, chart review, lab review, review of studies, conversation w/ senior consultant, review of inpatient medication list Nurse reported has been asking frequent pain medication by oral or IV because of chest pain When I see her she has no chest pain, however described to me she has deep left chest pain radiation to the shoulder and neck No other complaint Has been sleeping a lot Problem List Medical Problems: (1) Abnormal EKG Status: Acute (2) Anxiety State Nos Status: Chronic (3) Asthma, Unspecified Status: Chronic (4) Bronchospasm Status: Acute (5) CAD (coronary artery disease) Status: Chronic (6) Depressive Disorder Nec Status: Chronic (7) Diab Estrellita Wo Compl, Type Ii Or Unspec Type, Not Uncntrld Status: Chronic (8) Diabetes Status: Chronic (9) Fall Status: Acute (10) Headache Status: Acute (11) Hyperlipidemia Nec/Nos Status: Chronic (12) Hypertension Nos Status: Chronic (13) Hypoxia Status: Acute (14) Lower back pain Status: Chronic (15) Lumbar Disc Displacement Status: Chronic (16) Lumbosacral Neuritis Nos Status: Chronic (17) Migraine Status: Chronic (18) Nonspecific chest pain Status: Acute (19) Osteoarthros Nos-Unspec Status: Chronic (20) Posttraumatic Stress Disorder Status: Chronic (21) Precordial chest pain Status: Acute (22) Precordial chest pain Status: Acute (23) Sacral contusion Status: Acute Review of Systems Constitutional: No chills, No fatigue, No fever, No problem reported, No sweats , No weakness, No weight loss Eyes: No diplopia, No discharge, No eye pain, No redness, No worsening of vision ENT: No dental problems, No hearing loss, No nasal symptoms, No sore throat, No tinnitus, No trouble swallowing, No unusual epistaxis Respiratory: No cough, No dyspnea at rest, No dyspnea on exertion, No hemoptysis, No shortness of breath, No sputum, No wheezing Cardiac: + see HPI, No PND, No claudication, No edema, No palpitations Abdomen: No constipation, No diarrhea, No nausea, No pain, No vomiting Musculoskeletal: No calf pain, No joint pain, No muscle pain, No swelling Female : No abnormal vaginal bleeding, No dysuria, No hematuria, No incontinence, No urinary frequency, No vaginal discharge Neurologic: No balance problems, No memory loss, No numbness/tingling, No paralysis, No vertigo, No weakness Psychiatric: No anhedonism, No anxiety, No depression symptoms, No insomnia, No substance abuse Heme: No abnormal bleeding/bruising, No clotting problems, No night sweats, No swollen lymph nodes Endo: No excessive thirst, No excessive urination, No fatigue Skin: No bleeding, No color change, No itch, No new/changing skin lesions, No rash Objective Vital Signs Date Time Temp Pulse Resp B/P Pulse Ox O2 Delivery O2 Flow Rate FiO2 11/22/16 07:47 36.4 97 18 167/92 99 Room Air 11/22/16 04:05 Room Air 11/22/16 03:52 36.8 107 16 143/95 94 Room Air 107 11/22/16 00:05 Room Air 11/21/16 23:46 37.0 110 20 125/80 97 111 11/21/16 20:54 110 125/80 95 Room Air 11/21/16 19:04 37.0 112 20 137/87 95 Room Air 11/21/16 17:42 111 138/78 11/21/16 15:59 36.4 75 20 184/85 95 Nasal Cannula 2.0 11/21/16 15:45 36.7 105 22 107/70 97 Nasal Cannula 2.0 11/21/16 15:18 106 21 96 11/21/16 14:58 123/79 11/21/16 14:48 106 14 99 11/21/16 14:28 135/92 11/21/16 14:18 104 21 98 11/21/16 13:58 119/73 11/21/16 13:48 97 20 97 11/21/16 13:28 129/81 11/21/16 13:23 111/88 11/21/16 13:14 102 11/21/16 13:03 100 20 116/76 97 Nasal Cannula 2.0 11/21/16 13:02 116/76 11/21/16 12:13 98 Nasal Cannula 2.0 11/21/16 12:13 98 Nasal Cannula 2.0 11/21/16 11:59 96 Room Air 11/21/16 11:59 36.7 110 20 136/89 96 Room Air Physical Exam General Appearance: WD/WN, no apparent distress, + obese Eyes: normal inspection, PERRL, EOMI, sclerae normal ENT: normal ENT inspection, hearing grossly normal, pharynx normal Neck: supple, no adenopathy, thyroid normal, no JVD, no carotid bruits, trachea midline Respiratory/Chest: chest non-tender, normal breath sounds, no respiratory distress, no accessory muscle use, + decreased breath sounds Cardiovascular: regular rate, rhythm, no edema, no gallop, no JVD, no murmur Abdomen: normal bowel sounds, non tender, soft, no organomegaly, no pulsatile mass Extremities: normal range of motion, non-tender, normal inspection, no pedal edema, no calf tenderness, normal capillary refill, pelvis stable Neurologic/Psychiatric: 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, no motor/sensory deficits, alert, normal mood/affect, oriented x 3 Skin: normal color, warm/dry, no rash Lymphatic: no adenopathy Laboratory Results Last 24 Hours Test 11/21/16 12:00 11/21/16 12:10 11/21/16 16:31 11/21/16 18:10 White Blood Count 6.77 K/uL Red Blood Count 4.71 M/uL Hemoglobin 14.6 g/dL Hematocrit 44.0 % Mean Corpuscular Volume 93.4 fL Mean Corpuscular Hemoglobin 31.0 pg Mean Corpuscular Hemoglobin Concent 33.2 g/dl RDW Standard Deviation 47.9 fL RDW Coefficient of Variation 14.0 % Platelet Count 289 K/uL Mean Platelet Volume 11.2 fL Prothrombin Time 10.1 SECONDS Prothromb Time International Ratio 0.9 Activated Partial Thromboplast Time 24.3 SECONDS Partial Thromboplastin Ratio 0.9 Sodium Level 140 mmol/L Potassium Level 4.1 mmol/L Chloride Level 107 mmol/L Carbon Dioxide Level 23 mmol/L Anion Gap 10.0 mmol/L Blood Urea Nitrogen 14 mg/dl Creatinine 0.84 mg/dl Est Creatinine Clear Calc Drug Dose 104.2 ml/min Estimated GFR () 92.6 Estimated GFR (Non- 79.9 BUN/Creatinine Ratio 16.4 Random Glucose 100 mg/dl Calcium Level 9.2 mg/dl Total Bilirubin 0.4 mg/dl Aspartate Amino Transf (AST/SGOT) 14 U/L Alanine Aminotransferase (ALT/SGPT) 25 U/L Alkaline Phosphatase 102 U/L Total Creatine Kinase 97 U/L 127 U/L Creatine Kinase MB 1.1 ng/ml < 0.5 ng/ml Creatine Kinase MB Ratio 1.1 Total Protein 8.0 gm/dl Albumin 3.7 gm/dl Globulin 4.3 gm/dl Albumin/Globulin Ratio 0.9 Bedside Troponin I 0.000 ng/ml Bedside Glucose 132 mg/dl Troponin I < 0.015 ng/ml Test 11/21/16 20:44 11/22/16 00:45 11/22/16 05:25 11/22/16 06:55 Bedside Glucose 177 mg/dl Total Creatine Kinase 179 U/L Creatine Kinase MB 1.0 ng/ml Creatine Kinase MB Ratio 0.6 Troponin I < 0.015 ng/ml Sodium Level 140 mmol/L Potassium Level mmol/L 4.3 mmol/L Chloride Level 108 mmol/L Carbon Dioxide Level 23 mmol/L Anion Gap 9.0 mmol/L Blood Urea Nitrogen 16 mg/dl Creatinine 0.83 mg/dl Est Creatinine Clear Calc Drug Dose 105.4 ml/min Estimated GFR () 94.0 Estimated GFR (Non- 81.1 BUN/Creatinine Ratio 19.0 Random Glucose 110 mg/dl Calcium Level 8.7 mg/dl Magnesium Level mg/dl 2.1 mg/dl White Blood Count 6.88 K/uL Red Blood Count 4.11 M/uL Hemoglobin 12.7 g/dL Hematocrit 39.2 % Mean Corpuscular Volume 95.4 fL Mean Corpuscular Hemoglobin 30.9 pg Mean Corpuscular Hemoglobin Concent 32.4 g/dl RDW Standard Deviation 48.4 fL RDW Coefficient of Variation 13.9 % Platelet Count 248 K/uL Mean Platelet Volume 10.9 fL Estimated Average Glucose 160 mg/dl Hemoglobin A1c 7.2 % Hepatitis C Antibody Screen NEG Test 11/22/16 07:40 Bedside Glucose 115 mg/dl Assessment and Plan 51 y/o female with PMHx of CAD S/P PCI x 2 with Stent, TIA, Asthma, T2DM, HLD, HTN, Obesity, Tobacco Abuse who presents to the ED c/o sudden onset of L sided CP with radiation to the back and neck with numbness/ tingling of L arm that started at 1100 on 1/30/17. She was admitted as observation in the hospital on 11/21/2016 Chest Pain: ACS vs Prinzmetal's vs Musculoskeletal: Her heart score is 4 with Significant risk factors of obesity, tobacco abuse, known CAD, T2DM, HTN, HLD Cardiac enzyme troponin were negative 3 Pending stress echo - Morphine 2 mg IV PRN and Nitro 0.4 mg SL PRN - ASA 81 mg daily HTN; HLD; CAD S/P PCI x 2: - Amlodipine 5 mg daily - Atorvastatin 40 mg daily - Imdur 30 mg daily - Metoprolol Tartrate 12.5 mg BID Morbid obesity with BMI 43: Has counselling her to follow-up with PCP with lifestyle modification I will check d-dimer to rule out PE because of her morbid obesity and risk of PE LUE and LLE Weakness: Totally resolved - Patient reports baseline L sided weakness but reports symptoms worsening upon admission - I feel it is nonspecific - Brain MRI was done has no CVA T2DM: - Hold Metformin - due to plan for MRI Combo - SSI - goal range 100-150; correction factor 35 - HbA1c 7.2 GERD: - Zantac 150 mg HS - Protonix 40 mg daily DVT Prophylaxis: Lovenox Code Status: - FULL RESUSCITATION Will consult cardiology if stress test positive Will discharge home if stress test negative Continued [facility] stay due to: multiple IV medications needed Discharge planning: home
[2016-11-22] MEDS ORDERED: METOPROLOL TARTRATE 1 MG/ML VIAL ONE (11:19)
[2016-11-22] MEDS ORDERED: ATROPINE SULFATE 0.1 MG/ML 5ML SYR ONE (11:19)
[2016-11-22] MEDS ORDERED: DOBUTamine HCL 12.5 MG/ML 20 ML VIAL ONE (11:19)
[2016-11-22] MEDS ORDERED: OPTIRAY 320 IV PRN (13:00)
--- NOTE | 2016-11-22 13:35 | DIAGNOSTIC IMAGING REPORT ---
CHEST CTA for PULMONARY ARTERIES CT DOSE: 614.85 mGy.cm HISTORY: Chest pain dyspnea TECHNIQUE: Multiaxial CT images of the chest were performed following the intravenous administration of contrast to evaluate the pulmonary arteries. Maximal intensity projection images were also obtained. COMPARISON STUDY: 03/31/2016 FINDINGS: There is a normal caliber thoracic aorta with no evidence for dissection. There is no evidence for pulmonary embolus. No pleural effusions. No pneumothorax. The liver and spleen are unremarkable. No mediastinal or hilar lymphadenopathy. The central airways are patent. The lungs are clear. IMPRESSION: No evidence for pulmonary embolus. Lungs are currently considered clear. Electronically signed by: Tl Grullon M.D. 11/22/2016 1:34 PM Dictated Date/Time: 11/22/2016 1:31 PM
--- NOTE | 2016-11-22 14:25 | DOBUTAMINE ECHO ---
*NOTICE TO RECEIVING REPUBL[employer] AGENCY This information is strictly Confidential and protected under [place] law. [place] law prohibits you from making any further disclosure of this information unless further disclosure is expressly permitted by the written consent of the person to whom it pertains or is authorized by law. A general authorization for the release of medical or other information is not sufficient for this purpose. Hospital accepts no responsibility if the information is made available to any other person, INCLUDING THE PATIENT. Interpretation Summary * The stress ECG response was normal * No arrhythmia were noted with stress. * Stress wall motion was normal. * The left ventricular ejection fraction increases normally with stress. The left ventricular end-systolic cavity size reduces post-stress (normal response). The left ventricular wall motion with stress is normal. * -- Conclusions -- * 1Negative dobutamine stress echo for myocardial ischemia at 89% MPHR. * Left ventricular systolic function is mild to moderately reduced. * Ejection Fraction = 40-45%. * There is mild to moderate global hypokinesis of the left ventricle. * There is mild to moderate mitral regurgitation. * Compared with resting echocardiogram, modest decline in systolic dysfunction noted. Procedure Details * DOBUTAMINE ECHO, CPT#[id number] * ECHO COLOR FLOW, CPT #[id number] * ECHO DOPPLER, CPT #[id number] Left Ventricle * The left ventricle is normal in size. * There is normal left ventricular wall thickness. * Left ventricular systolic function is mild to moderately reduced. * Ejection Fraction = 40-45%. * There is mild to moderate global hypokinesis of the left ventricle. Right Ventricle * The right ventricle is normal in size and function. Atria * The left atrial size is normal. * Right atrial size is normal. * The interatrial septum is intact with no evidence for an atrial septal defect. Mitral Valve * The mitral valve is normal in structure and function. * There is mild to moderate mitral regurgitation. Tricuspid Valve * The tricuspid valve is normal in structure and function. * Significant tricuspid regurgitation is absent. Aortic Valve * The aortic valve is normal in structure and function. * No aortic regurgitation is present. Pulmonic Valve * The pulmonary valve is not well seen, but the Doppler examination is normal without significant regurgitation or stenosis. * There is no significant pulmonary regurgitation. Great Vessels * The aortic root is normal size. * No obvious dissection could be visualized. * The pulmonary is not well visualized. Pericardium * There is no pericardial effusion. Stress Parameters * Normal baseline electrocardiogram. * Stress ECG: No ST changes. No arrhythmias. * The stress portion of this study was personally supervised by the undersigned interpreting physician. * Rest heart rate was '82' BPM. * Rest blood pressure was '113/80' * Maximum heart rate achieved was 151 bpm. * Maximum heart rate was 89 % of maximum age-predicted heart rate. * Maximum blood pressure was '200/41' * Maximum Dobutamine infusion rate was '50' mcg/kg/min. * A total of 0.7 mg of intravenous Atropine was used to supplement Dobutamine for heart rate response. * Dobutamine infusion was terminated due to end of protocol/maximum medication doses * A total of 10 mg of IV Metoprolol was administered to reverse Dobutamine-induced tachycardia. Left Ventricular Diastolic Function * Grade I diastolic dysfunction, (abnormal relaxation pattern). MMode 2D Measurements and Calculations IVSd 1.4 cm IVSs 1.8 cm LVIDd 5.1 cm LVIDs 3.9 cm LVPWd 1.3 cm LVPWs 1.4 cm IVS/LVPW 1.1 FS 23.8 % EDV(Teich) 126.0 ml ESV(Teich) 66.5 ml EF(Teich) 47.3 % EDV(cubed) 135.7 ml ESV(cubed) 59.9 ml EF(cubed) 55.8 % % IVS thick 30.5 % % LVPW thick 11.3 % LV mass(C)d 279.6 grams LV mass(C)dI 123.7 grams/m\S\2 LV mass(C)s 251.2 grams LV mass(C)sI 111.1 grams/m\S\2 SV(Teich) 59.5 ml SI(Teich) 26.3 ml/m\S\2 SV(cubed) 75.8 ml SI(cubed) 33.5 ml/m\S\2 Ao root diam 3.0 cm Ao root area 7.2 cm\S\2 ACS 2.0 cm LA dimension 3.4 cm LA/Ao 1.1 LVOT diam 2.3 cm LVOT area 4.3 cm\S\2 LVAd ap4 29.3 cm\S\2 LVLd ap4 7.8 cm EDV(MOD-sp4) 94.1 ml EDV(sp4-el) 93.5 ml LVAs ap4 19.2 cm\S\2 LVLs ap4 6.3 cm ESV(MOD-sp4) 49.9 ml ESV(sp4-el) 49.9 ml EF(MOD-sp4) 47.0 % EF(sp4-el) 46.6 % LVAd ap2 30.6 cm\S\2 LVLd ap2 8.4 cm EDV(MOD-sp2) 93.6 ml EDV(sp2-el) 95.0 ml LVAs ap2 18.6 cm\S\2 LVLs ap2 6.8 cm ESV(MOD-sp2) 44.3 ml ESV(sp2-el) 42.8 ml EF(MOD-sp2) 52.7 % EF(sp2-el) 54.9 % LVLd %diff 7.2 % EDV(MOD-bp) 96.1 ml LVLs %diff 8.0 % ESV(MOD-bp) 48.3 ml EF(MOD-bp) 49.7 % SV(MOD-sp4) 44.2 ml SI(MOD-sp4) 19.6 ml/m\S\2 SV(MOD-sp2) 49.3 ml SI(MOD-sp2) 21.8 ml/m\S\2 SV(MOD-bp) 47.8 ml SI(MOD-bp) 21.1 ml/m\S\2 SV(sp4-el) 43.6 ml SI(sp4-el) 19.3 ml/m\S\2 SV(sp2-el) 52.2 ml SI(sp2-el) 23.1 ml/m\S\2 Doppler Measurements and Calculations MV E max shaq 68.5 cm/sec MV A max shaq 83.6 cm/sec MV E/A 0.82 MV P1/2t max shaq 76.7 cm/sec MV P1/2t 66.2 msec MVA(P1/2t) 3.3 cm\S\2 MV dec slope 339.0 cm/sec\S\2 MV dec time 0.20 sec Ao V2 max 143.8 cm/sec Ao max PG 8.3 mmHg Ao max PG (full) 6.8 mmHg YANDY(V,A) 1.8 cm\S\2 YANDY(V,D) 1.8 cm\S\2 LV V1 max PG 1.4 mmHg LV V1 max 60.0 cm/sec MR max shaq 534.9 cm/sec MR max PG 114.5 mmHg PA V2 max 91.8 cm/sec PA max PG 3.4 mmHg
--- NOTE | 2016-11-22 18:14 | Cardiology Consultation ---
Cardiology Consultation CARDIOLOGY CONSULTATION DATE OF CONSULTATION: November 22, 2016. REFERRING PHYSICIAN: Twin Abbott MD REASON FOR CONSULT: Chest pain in coronary artery disease patient. HISTORY OF PRESENT ILLNESS: 51-year-old woman with history of coronary artery disease (left circumflex distal vessel stenting remotely, widely patent coronaries at cath 2014), asthma , tobacco use, and obesity who was admitted on 11/21/2016 with left-sided chest pain radiating to the back and neck associated with left arm paresthesias. ECG and enzymes overnight were unremarkable. A dobutamine stress echocardiogram this morning showed no ischemia at 89 % maximum predicted heart rate. Of note, her resting left ventricular systolic function was mildly reduced (EF 45 %). She did have a further episode of chest discomfort after (not during) her pharmacologic stress study. MEDICATIONS: Albuterol p.r.n. Amlodipine 5 mg Aspirin 81 mg Atorvastatin 40 mg Gabapentin Isosorbide mononitrate 30 mg daily Metoprolol tartrate 12.5 mg b.i.d. Sixteen patch Nitrostat p.r.n. Protonix Ranitidine ALLERGIES: No known drug allergies. PAST MEDICAL HISTORY: Coronary artery disease, as noted above Possible CVA (? Precipitated by migraine) Asthma Anxiety Depression Diabetes mellitus, type 2 Chronic low back pain Dyslipidemia Hypertension Osteo arthritis Posttraumatic stress disorder PAST SURGICAL HISTORY: Orthopedic procedures. SOCIAL HISTORY: Lives with significant other, unemployed, smokes daily. No drug use. Drinks 3 cans of beer per week. FAMILY HISTORY: Hypertension and diabetes. REVIEW OF SYSTEMS: As per HPI. PHYSICAL EXAMINATION: No distress. Vitals: Afebrile. BP normotensive to mildly hypertensive. Heart rate between 75 and 112. Normal respiratory rate Skin: No unusual lesions or ecchymosis. HEENT: Unremarkable. Neck: Jugular venous pulse at the clavicle at 90, no carotid bruits. Lungs: Clear and equal breath sounds bilaterally. No wheezing or crackles. Cardiac: Regular rhythm with normal S1 and S2. No murmur or gallop. Abdomen: Benign. Extremities: Nontender without edema. Intact peripheral pulses. Neurologic: Normal affect, nonfocal. DATA: Serial ECGs show sinus rhythm/sinus tachycardia with voltage criteria for LVH and left atrial enlargement but no ST abnormalities or Q-waves. Chest x-ray and CT of the chest unremarkable. CT of the head and brain MRI unremarkable. Troponin negative x3. CK negative x3. Normal electrolytes, BUN 16, creatinine 0.8. Hemoglobin A1c 7.2 %. Normal coagulation studies and D-dimer. Normal CBC. Dobutamine stress echocardiogram showed mildly reduced left ventricular systolic function at baseline (EF 45 %) with mild global hypokinesis. Ejection fraction improved appropriately and left ventricular systolic function decline during pharmacologic stress at peak heart rate of 89% maximum predicted. IMPRESSION: 1. Chest pain, etiology uncertain. 2. No evidence of inducible/spontaneous myocardial ischemia. 3. Apparent history of prior coronary artery disease, widely patent coronaries at catheterization 2014. 4. History of asthma, no bronchospasm currently. 5. Hypertension, generally controlled. 6. Mild left ventricular systolic dysfunction (EF 45 %). 7. Diabetes mellitus, on oral agents at home. 8. Obesity. 9. Tobacco use. 10. Other medical problems as noted above. DISCUSSION: Patient with multiple medical problems including apparent history of prior coronary artery disease requiring remote stenting but with widely patent coronaries at cath less than 2 years ago. Etiology of her chest discomfort remains uncertain, but there was no inducible ischemia at high heart rate (89 % predicted maximum). There is a small chance that her symptoms result from supply/demand mismatch due to suboptimally controlled hypertension, as such it is reasonable to increase her metoprolol. Also, the possibility of coronary spasm cannot be excluded, increasing her oral nitrates is reasonable as well. Although these atypical cardiac etiologies are possible, her pain is more likely noncardiac. In a multitude of prior admissions, she has never had a significantly elevated troponin, suggesting an alternative explanation for her chronically recurring chest pain. Recommend increasing activity by walking, in the absence of enzyme elevations or chest pain associated with dynamic ST changes, would not pursue invasive strategy but would attempt to manage her symptoms medically. Thank you for this consultation. Case was discussed with Dr. Abbott.
[2016-11-22] MEDS: ATORVASTATIN 40 MG TAB PO SCH (20:16)
[2016-11-22] MEDS: RANITIDINE HCL 150 MG TAB PO SCH (20:17)
[2016-11-23] VITALS (7 sets, daily range): BP systolic 96–132; BP diastolic 60–93; PULSE 76–87; TEMP 36.6–36.8; O2SAT 92–95
[2016-11-23] MEDS: MoRPHine SULFATE 2 MG/ML CARP IV PRN ×2 (05:26→08:59)
[2016-11-23] MEDS: ALBUTEROL HFA 8 GM INHALER INH PRN ×2 (06:01→08:52)
[2016-11-23] MEDS: INSULIN ASPART 100 UNITS/ML 3 ML PEN SC SCH ×2 (06:30→11:00)
[2016-11-23] MEDS: GABAPENTIN 300 MG CAP PO SCH (08:50)
[2016-11-23] MEDS: PANTOprazole SOD 40 MG TAB PO SCH (08:50)
[2016-11-23] MEDS: ASPIRIN 81 MG ECTAB PO SCH (08:51)
[2016-11-23] MEDS: PAROXETINE 20 MG TAB PO SCH (08:51)
[2016-11-23] MEDS: METOPROLOL TARTRATE 25 MG TAB PO SCH (08:51)
[2016-11-23] MEDS: AMLODIPINE BESYLATE 5 MG TAB PO SCH (08:51)
[2016-11-23] MEDS ORDERED: ISOSORBIDE MONONITRATE 60 MG TABCR PO SCH (09:00)
[2016-11-23] MEDS ORDERED: IMDSR60 PO (09:39)
[2016-11-23] MEDS ORDERED: LPR25 PO (09:39)
[2016-11-23] MEDS ORDERED: NTRSLP4 SL (09:39)
[2016-11-23] MEDS ORDERED: NCDT14 TD (09:39)
--- NOTE | 2016-11-23 09:39 | Discharge Instructions ---
Discharge Instructions Admission Reason for Admission: Chest Pain Discharge Discharge Diagnosis / Problem: atypical chest pain Discharge Goals Goal(s): Decrease discomfort, Improve function, Increase independence, Improve disease control, Improve nutritional status, Learn about illness, Diagnostic testing, Therapeutic intervention, Prevent Disease Progression, Specific goals Activity Recommendations Activity Limitations: resume your previous activity Lifting Limitations: none Exercise/Sports Limitations: none May Resume Sexual Activity: when tolerated Shower/Bathe: no limitations . Instructions / Follow-Up Instructions / Follow-Up you have chest pain , likely from acid reflex but you do have coronary artery disease, hypertension, and decreased heart function, you need to follow up with Dr. Whittington in 2-4 week, RN please give Dr. Whittington' s phone to call for appointment I have your medicine adjusted, please take as instructed - you need to follow up with your primary care physician in 1 week, - take medication as instructed, never overdose or any misuse, or take with alcohol, because misuse of medicine may cause organ damage or , call your primary care physician if have questions of medicaitons. - call your primary care physician OR go to local emergency room if has any fever/chill, chest pain, shortness of breathing, nausea/vomiting/abdominal pain , facial droop/slurry speech/local weakness, or if has any questions. - fall precaution - diet as instructed - you need to follow up with your subspecialists - you should understand that it is important to follow up the above instruction , and "not following the above instruction" may cause delayed or missed care of your medical conditions which may cause permanent organ damage and even . Current Hospital Diet Patient's current hospital diet: AHA Diet (Heart Healthy), Diabetes Type 2 Diet Discharge Diet Recommended Diet: Diabetes Type 2 Diet Procedures Procedures Performed: no Pending Studies Studies pending at discharge: no Laboratory Results Hemoglobin A1c Test 11/22/16 06:55 Range/Units Estimated Average Glucose 160 mg/dl Hemoglobin A1c 7.2 H 4.5-5.6 % Medical Emergencies . Who to Call and When: Medical Emergencies: If at any time you feel your situation is an emergency, please call 911 immediately. . Non-Emergent Contact Non-Emergency issues call your: Primary Care Provider, Graduate Engineer . . "Provider Documentation" section prepared by Twin Abbott. VTE Core Measure Inpt VTE Proph given/why not?: SCD's
--- NOTE | 2016-11-23 10:47 | Discharge Summary ---
Discharge Summary Admission Date: Nov 21, 2016 at 14:41 Discharge Date: Nov 23, 2016 Discharge Disposition: Home Principal Diagnosis: Atypical chest pain , likely from acid reflex Problems/Secondary Diagnoses: coronary artery disease, hypertension chronic congestive heart failure with CHF with EF 40%, compensated (1) Anxiety State Nos Status: Chronic (2) Asthma, Unspecified Status: Chronic (3) CAD (coronary artery disease) Status: Chronic (4) Depressive Disorder Nec Status: Chronic (5) Diab Estrellita Wo Compl, Type Ii Or Unspec Type, Not Uncntrld Status: Chronic (6) Diabetes Status: Chronic (7) Hyperlipidemia Nec/Nos Status: Chronic (8) Hypertension Nos Status: Chronic (9) Lower back pain Status: Chronic (10) Lumbar Disc Displacement Status: Chronic (11) Lumbosacral Neuritis Nos Status: Chronic (12) Migraine Status: Chronic (13) Osteoarthros Nos-Unspec Status: Chronic (14) Posttraumatic Stress Disorder Status: Chronic Immunizations: Have You Had Influenza Vaccine: Yes Influenza Vaccine Date: Aug 17, 2016 History of Tetanus Vaccine?: No History of Pneumococcal: Yes Pneumococcal Date: Sep 07, 2015 History of Hepatitis B Vaccine: No Procedures: Chest CT for PE has rule out PE, Dobutamine stress echo was negative for ACS Consultations: [employer] Medication Reconciliation New Medications: Isosorbide Mononitrate (Isosorbide Mononitrate ER) 60 Mg Tab 60 MG PO DAILY for 30 Days, #30 TAB Metoprolol Tartrate (Lopressor) 25 Mg Tab 25 MG PO BID for 30 Days, #60 TAB hold when sbp<105, or dbp<65, or HR <65 Nicotine (Nicotine) 1 Patch Tdsy 1 PATCH TD DAILY PRN for Cigarette Cravings for 30 Days Nitroglycerin (Nitrostat) 0.4 Mg/1 Tab Subl 0.4 MG SL UD PRN for Chest Pain for 30 Days, #50 Continued Medications: Albuterol Hfa (Ventolin Hfa) 200 Puffs/69917 Mcg Aers 2 PUFF INH Q4-6H PRN for Shortness of Breath Amlodipine Besylate (Amlodipine Besylate) 5 Mg Tab 5 MG PO QAM, #30 TAB Aspirin (Aspirin Chewable) 81 Mg Chew 81 MG PO QAM Atorvastatin (Lipitor) 20 Mg Tab 40 MG PO QPM, TAB Gabapentin (Gabapentin) 300 Mg Cap 300 MG PO Q12 Hydrocodone/Acetaminophen 7.5MG/325MG ([place] 7.5MG/325MG) Tab 1 TAB PO QID PRN for Pain, TAB PRN PAIN Metformin Hcl (Glucophage) 500 Mg Tab 1000 MG PO QAM, TAB Metformin Hcl (Glucophage) 500 Mg Tab 500 MG PO QPM, TAB Mometasone Furoate-Formoterol (Dulera 100/5 Mcg) 1 Aer Aer 2 PUFFS INH BID for 30 Days, #13 GM 2 Refills Omeprazole (Prilosec) 20 Mg Capcr 4 MG PO DAILY, CAP Paroxetine (Paxil) 40 Mg Tab 40 MG PO QAM, TAB Promethazine (Phenergan ) 12.5 Mg Tab 12.5 MG PO Q12 PRN for Migraine, TAB Ranitidine (Zantac) 150 Mg Tab 150 MG PO HS, TAB Tizanidine (Zanaflex) 4 Mg Cap 2-4 MG PO TID, CAP Discontinued Medications: Isosorbide Mononitrate Ext Rel (Imdur Ext Rel) 30 Mg Tabcr 30 MG PO DAILY, #30 Metoprolol Tartrate (Lopressor) (Lopressor) 25 Mg Tab 12.5 MG PO BID for 90 Days, #90 TAB 1 Refill Discharge Exam Feeling okay, no more chest pain, out of bed and eating drinking, no other complaints Review of Systems: Constitutional: + fatigue, No chills, No fever, No problem reported, No sweats, No weakness, No weight loss Eyes: No diplopia, No discharge, No eye pain, No problem reported, No redness, No worsening of vision ENT: No dental problems, No hearing loss, No nasal symptoms, No problem reported, No sore throat, No tinnitus, No trouble swallowing, No unusual epistaxis Respiratory: No cough, No dyspnea at rest, No dyspnea on exertion, No hemoptysis, No problem reported, No shortness of breath, No sputum, No wheezing Cardiovascular: No PND, No chest pain, No claudication, No edema, No orthopnea, No palpitations, No problem reported Abdomen: No GI bleeding, No constipation, No diarrhea, No nausea, No pain, No problem reported, No vomiting Musculoskeletal: No calf pain, No joint pain, No muscle pain, No problem reported, No swelling Genitourinary - Female: No dysmenorrhea, No dysuria, No hematuria, No menorrhagia, No metrorrhagia, No , No problem reported, No rash, No urinary frequency, No urinary incontinence, No urinary retention, No urinary urgency, No vaginal bleeding, No vaginal discharge, No vaginal itching, No vulvodynia Neurologic: No balance problems, No memory loss, No numbness/tingling, No paralysis, No problem reported, No vertigo, No weakness Psychiatric: No anhedonism, No anxiety, No depression symptoms, No insomnia , No problem reported, No substance abuse Endocrine: No excessive thirst, No excessive urination, No fatigue, No problem reported Hematologic / Lymphatic: No abnormal bleeding/bruising, No clotting problems , No night sweats, No problem reported, No swollen lymph nodes Integumentary: No bleeding, No color change, No itch, No new/changing skin lesions, No problem reported, No rash Physical Exam: General Appearance: WD/WN, no apparent distress, + obese Eyes: normal inspection, PERRL, EOMI ENT: normal ENT inspection, hearing grossly normal, TMs normal Neck: supple, no adenopathy, thyroid normal Respiratory/Chest: chest non-tender, normal breath sounds, no respiratory distress, no accessory muscle use, + decreased breath sounds Cardiovascular: regular rate, rhythm, no edema, no gallop Abdomen / GI: normal bowel sounds, non tender, soft, no organomegaly, no pulsatile mass Extremities: normal inspection, no calf tenderness, normal capillary refill , no pedal edema, normal range of motion Neurologic/Psychiatric: supervisor calibration II-XII nml as tested, no motor/sensory deficits , alert, normal mood/affect, normal reflexes, oriented x 3 Skin: normal color, warm/dry, no rash Hospital Course 51 y/o female with PMHx of CAD S/P PCI x 2 with Stent, TIA, Asthma, T2DM, HLD, HTN, Obesity, Tobacco Abuse who presents to the ED c/o sudden onset of L sided CP with radiation to the back and neck with numbness/ tingling of L arm that started at 1100 on 11/21/16. She was admitted as observation in the hospital on 11/21/2016 Chest Pain: ACS vs Prinzmetal's vs Musculoskeletal: Totally resolved, possible from acid reflux, However, Her heart score is 4 with Significant risk factors of obesity, tobacco abuse, known CAD, T2DM, HTN, HLD Cardiac enzyme troponin were negative 3 Stress echo was done was negative there was No evidence of inducible/spontaneous myocardial ischemia. History of prior coronary artery disease, patent coronaries at catheterization 2014. Mild left ventricular systolic dysfunction (EF 45 %). Has increased beta irene metoprolol from 12.5 to 25 mg by mouth twice a day, increased Imdur from 30 to 60mg by mouth daily Cardiology was recs metoprolol could be up to 50 mg by mouth twice a day, I'm doing in a smalled dose for now at 25 mg twice a day, PCP please adjust if need per recommendation from cardiology Morbid obesity with BMI 43: Has counselling her to follow-up with PCP with lifestyle modification checked d-dimer, and chest CT has ruled out PE LUE and LLE Weakness when arriving to the ER per self-report: Totally resolved - Patient reports baseline L sided weakness but reports symptoms worsening upon admission - it is nonspecific - Brain MRI was done, has no CVA T2DM: - Hold Metformin - due to plan for MRI Combo - SSI - goal range 100-150; correction factor 35 - HbA1c 7.2 GERD: - Zantac 150 mg HS - Protonix 40 mg daily Has detail discussion with patient about the care plan and discharge plan, emphasized to follow-up with PCP and director health, patient agreed Tobacco abuse disorder, has counselled to quit smoking and has prescribed a nicotine patch DVT Prophylaxis: Lovenox Code Status: - FULL RESUSCITATION Instructions / Follow-Up you have chest pain , likely from acid reflex but you do have coronary artery disease, hypertension, and decreased heart function, you need to follow up with Dr. Whittington in 2-4 week, RN please give Dr. Whittington' s phone to call for appointment I have your medicine adjusted, please take as instructed - you need to follow up with your primary care physician in 1 week, - take medication as instructed, never overdose or any misuse, or take with alcohol, because misuse of medicine may cause organ damage or , call your primary care physician if have questions of medicaitons. - call your primary care physician OR go to local emergency room if has any fever/chill, chest pain, shortness of breathing, nausea/vomiting/abdominal pain , facial droop/slurry speech/local weakness, or if has any questions. - fall precaution - diet as instructed - you need to follow up with your subspecialists - you should understand that it is important to follow up the above instruction , and "not following the above instruction" may cause delayed or missed care of your medical conditions which may cause permanent organ damage and even . Total Time Spent: Greater than 30 minutes This includes examination of the patient, discharge planning, medication reconciliation, and communication with other providers. Discharge Instructions Please refer to the electronic Patient Visit Report (Discharge Instructions) for additional information. Additional Copies To Rene Whittington M.D.; Del Bucio D.O.Int.Med.
[2016-12-14] MEDS ORDERED: GLC/500 PO (12:11)
[2016-12-14] MEDS ORDERED: VNTHFA/IN INH (14:02)
== END 2016-11-23 13:45 | disposition home or self-care (01) ==
LOC: ENRESERVDT → ENRESERVTM → EDBD 11:48 → C.EDC 11:49 → C.MED 14:41 → EEVIPCON 14:41
PROVIDERS: ADMIT Hospitalist; ATTEND Hospitalist
DX: R07.89 Other chest pain (principal); J45.909 Unspecified asthma, uncomplicated; E11.9 Type 2 diabetes mellitus without complications; I25.10 Atherosclerotic heart disease of native coronary artery without angina pectoris; I10 Essential (primary) hypertension; F17.200 Nicotine dependence, unspecified, uncomplicated; K21.9 Gastro-esophageal reflux disease without esophagitis; E78.5 Hyperlipidemia, unspecified; F32.9 Major depressive disorder, single episode, unspecified; M19.90 Unspecified osteoarthritis, unspecified site; M51.26 Other intervertebral disc displacement, lumbar region; Z98.61 Coronary angioplasty status; E66.01 Morbid (severe) obesity due to excess calories; Z68.41 Body mass index [BMI] 40.0-44.9, adult; Z79.82 Long term (current) use of aspirin; Z86.73 Personal history of transient ischemic attack (TIA), and cerebral infarction without residual deficits; Z82.49 Family history of ischemic heart disease and other diseases of the circulatory system; Z83.3 Family history of diabetes mellitus

== ENCOUNTER 2016-12-14 16:27 | Emergency (ER) | payer OTHER ==
[~2016-12-14] VITALS: Ht 167.6 cm; Wt 115.0 kg
[~2016-12-14 16:27] MED LIST changes: -AMOX500C3 PO; -GABA-112 PO; +GLC/500 PO; +IMDSR60 PO; -ISOS30TA35 PO; +LPR25 PO; -METO25TA56 PO; -MGCS/ PO; +NCDT14 TD; -NICO1DIS TD; +NRN300 PO; +NTRSLP4 SL; +TIZA4CAP PO; +VNTHFA/IN INH; +ZNTT/150 PO
[2016-12-14 16:32] VITALS: TEMP 36.9; Ht 167.6 cm; Wt 115.0 kg
[2016-12-14] MEDS ORDERED: HYDROmorphone INJ 0.5 MG/0.5 ML SYR IV STA ×2 (16:42→19:20)
[2016-12-14] MEDS ORDERED: ONDANSETRON INJ 2 MG/ML 2 ML VIAL IV STA (16:42)
--- NOTE | 2016-12-14 16:51 | EMERGENCY ROOM VISIT NOTE ---
History First contact with patient: 16:29 Chief Complaint: KNEEPAIN Stated Complaint: LEFT KNEE PAIN & SWELLING History of Present Illness The patient is a 51 year old female who presents to the Emergency Room via ambulance with complaints of "left knee pain and swelling". Patient states that she developed left knee pain yesterday while walking in the knee gave out. She states that the pain is worse today, and with flexion of the knee there is extreme pain. She points to the prepatellar region as the location of the pain that she rates as a 10/10 which is worse with walking. She has a history of crushed tibia and fibula which she has had surgical repair in 2009 by a physician in [place]. She notes now that there is left leg swelling which she has had in the past but not like this. She notes that she called the ambulance today because she could not walk on the left knee. She is accompanied by her significant other. She denies any fevers, chills, chest pain, shortness of breath, abdominal pain, falls or trauma to the area. She is a smoker and her tetanus is up-to-date. Review of Systems A complete 10-point Review of Systems was discussed with the patient, with pertinent positives and negatives listed in the History of Present Illness. All remaining Review of Systems questions can be considered negative unless otherwise specified. Past Medical/Surgical History Medical Problems: (1) Acute coronary syndrome (2) Acute CVA (cerebrovascular accident) (3) Acute postoperative pain of right foot (4) Anxiety State Nos (5) Asthma exacerbation (6) Asthma, Unspecified (7) Asthmatic bronchitis (8) CAD (coronary artery disease) (9) Chest pain (10) Depressive Disorder Nec (11) Diab Estrellita Wo Compl, Type Ii Or Unspec Type, Not Uncntrld (12) Diabetes (13) Exacerbation of chronic back pain (14) Exacerbation of chronic back pain (15) Fall (16) Hyperlipidemia Nec/Nos (17) Hypertension Nos (18) Ischemic cerebrovascular accident (CVA) of frontal lobe (19) Left elbow pain (20) Lower back pain (21) Lumbar Disc Displacement (22) Lumbosacral Neuritis Nos (23) Migraine (24) Non-hemorrhagic cerebrovascular accident (25) Osteoarthros Nos-Unspec (26) Posttraumatic Stress Disorder (27) Precordial chest pain (28) Received intravenous tissue plasminogen activator (t-PA) in emergency department (29) Unstable angina Surgical Problems: (1) Stented coronary artery Family History Diabetes mellitus Hypertension Social History Smoking Status: Current Every Day Smoker Alcohol Use: none Drug Use: none Marital Status: in relationship Housing Status: lives with family Occupation Status: unemployed Current/Historical Medications Scheduled Amlodipine Besylate (Amlodipine Besylate), 5 MG PO DAILY Aspirin (Aspirin Ec), 81 MG PO DAILY Atorvastatin (Atorvastatin Calcium), 40 MG PO HS Gabapentin (Gabapentin), 300 MG PO Q12 Isosorbide Mononitrate (Isosorbide Mononitrate ER), 60 MG PO DAILY Metformin HCl (Metformin HCl), 1,000 MG PO QAM Metformin Hcl (Glucophage), 500 MG PO QPM Metoprolol Tartrate (Lopressor) (Lopressor), 25 MG PO BID Mometasone Furoate-Formoterol (Dulera 200/5 Mcg), 2 PUFFS INH BID Nicotine (Sm Nicotine Transdermal S), 1 PATCH TOP DAILY Omeprazole (Prilosec), 40 MG PO DAILY Paroxetine (Paroxetine HCl), 40 MG PO DAILY Ranitidine HCl (Ranitidine HCl), 150 MG PO HS Tizanidine (Tizanidine HCl), 2-4 MG PO TID Scheduled PRN Acetaminophen/Hydrocodone (Hydrocodone/Acetaminophen 5-325 mg), 1 TAB PO Q6H PRN for Pain Albuterol Hfa (Ventolin Hfa), 2 PUFFS INH Q4-6H PRN for Shortness of Breath Ipratropium-Albuterol (Duoneb), 1 TREATMENT INH Q6H PRN for Shortness of Breath Nitroglycerin (Nitrostat), 0.4 MG UT UD PRN for Chest Pain Promethazine (Phenergan ), 12.5 MG PO Q12 PRN for Migraine Allergies Coded Allergies: No Known Allergies (Unverified , 10/24/16) Physical Exam Vital Signs Date Time Temp Pulse Resp B/P Pulse Ox O2 Delivery O2 Flow Rate FiO2 12/14/16 19:32 116 18 149/91 94 12/14/16 18:24 104 20 141/86 96 12/14/16 16:32 36.9 109 20 134/94 96 Room Air Physical Exam VITAL SIGNS - Vital signs and nursing notes were reviewed. Patient is afebrile , unremarkable vital signs other than she is tachycardic rate of 109 bpm. Review GENERAL -51-year-old female appearing her stated age who is in no acute distress. Communicates well with provider and answers questions appropriately. SKIN - Without rashes. No petechial rashes. There is slight edema of the left knee without erythema or excessive warmth. HEAD - NC/AT. EYES - Sclera anicteric. Palpebral conjunctiva pink and moist with no injection noted. EARS - No deformities of external structures noted on gross examination bilaterally. NOSE - Midline and without cyanosis. No epistaxis or purulent drainage noted. Septum midline without deviation or septal hematoma noted. MOUTH/OROPHARYNX - Without perioral cyanosis. Buccal mucosa pink and moist and without leukoplakia. Tongue midline with equal elevation of palate bilaterally. No tonsillar hypertrophy, erythema, or exudates noted. NECK - Neck with FROM. Supple to palpation. No lymphadenopathy noted. No nuchal rigidity. LUNGS - Chest wall symmetric without accessory muscle use, intercostals retractions, or central cyanosis. Normal vesicular breath sounds CTA B/L. No wheezes, rales, or rhonchi appreciated. CARDIAC - RRR with S1/S2. No murmur, rubs, or gallops appreciated. ABDOMEN - Abdominal contour without pulsations or visible masses. BS normoactive all four quadrants. No tenderness, palpable masses, hepatosplenomegaly, or ascites noted. EXTREMITIES - No clubbing or peripheral cyanosis. No pretibial edema present. There is tenderness to palpation of the hips bilaterally as well as the left anterior knee, and left ankle. They're unremarkable to visual inspection. Skin is intact without petechiae. Decreased range of motion of the knee secondary to pain. Vascularly and neurologically intact. +5/5 strength noted in UE/LE bilaterally. NEUROLOGIC - Cranial nerves II through XII grossly intact. Sensory intact to light touch throughout. PSYCH -Pt is very pleasant and interacts well with examiner. Medical Decision & Procedures ER Provider Diagnostic Interpretation: AP PELVIS/BILAT HIP MIN 3-4V, LEFT KNEE 3 VIEWS, LEFT TIBIA/FIBULA 2 VIEWS ROUTINE CLINICAL HISTORY: BILATERAL HIP PAIN. Left leg pain. COMPARISON STUDY: Sacrum/coccyx 02/12/2016. FINDINGS: Mild to moderate degenerative disc disease within the lower lumbar spine. The sacrum appears intact. There is mild osteoarthritis within the bilateral hips and sacroiliac joints. No acute fracture or dislocation within the pelvis, hips, left knee, left tibia, or left fibula. Mild cartilage space narrowing within the medial compartment of the left knee consistent with osteoarthritis. No significant knee effusion. Soft tissues are unremarkable. There is an intramedullary ayaan within the tibia with an old, healed distal tibial fracture. The hardware appears intact. Small plantar heel spur. IMPRESSION: 1. No acute fracture or dislocation within the pelvis, hips, left knee, or left lower leg. 2. Old posttraumatic and postoperative changes within the left tibia. 3. Mild osteoarthritis as described above. Electronically signed by: Octaviano Garcia M.D. LEFT LOWER EXTREMITY ARTERIAL DOPPLER STUDY CLINICAL HISTORY: Left lower leg pain COMPARISON STUDY: None. FINDINGS: The left ankle-brachial index measured with the posterior tibial and dorsalis pedis arteries was 1.2. There are normal biphasic to triphasic waveforms within the left lower extremity arterial system. Velocities are within normal limits. No significant stenosis or occlusion identified. IMPRESSION: No hemodynamically significant stenosis or occlusion seen within the left lower extremity arterial system. Electronically signed by: Octaviano Garcia M.D. 12/14/2016 6:04 PM Dictated Date/Time: 12/14/2016 6:02 PM Laboratory Results 12/14/16 17:00 Red Blood Count 4.23, Mean Corpuscular Volume 93.6, Mean Corpuscular Hemoglobin 30.7, Mean Corpuscular Hemoglobin Concent 32.8, Mean Platelet Volume 11.3, Neutrophils (%) (Auto) 51.0, Lymphocytes (%) (Auto) 41.2, Monocytes (%) (Auto) 5.4, Eosinophils (%) (Auto) 2.0, Basophils (%) (Auto) 0.3, Neutrophils # (Auto) 4.07, Lymphocytes # (Auto) 3.28, Monocytes # (Auto) 0.43, Eosinophils # (Auto) 0.16, Basophils # (Auto) 0.02 12/14/16 17:00 Test 12/14/16 00:00 12/14/16 17:00 Lyme Disease IgG Antibody NEG (NEG) Lyme Disease IgM Antibody NEG (NEG) White Blood Count 7.97 K/uL (4.8-10.8) Red Blood Count 4.23 M/uL (4.2-5.4) Hemoglobin 13.0 g/dL (12.0-16.0) Hematocrit 39.6 % (37-47) Mean Corpuscular Volume 93.6 fL (80-100) Mean Corpuscular Hemoglobin 30.7 pg (25-34) Mean Corpuscular Hemoglobin Concent 32.8 g/dl (32-36) Platelet Count 255 K/uL (130-400) Mean Platelet Volume 11.3 fL (7.4-10.4) Neutrophils (%) (Auto) 51.0 % Lymphocytes (%) (Auto) 41.2 % Monocytes (%) (Auto) 5.4 % Eosinophils (%) (Auto) 2.0 % Basophils (%) (Auto) 0.3 % Neutrophils # (Auto) 4.07 K/uL (1.4-6.5) Lymphocytes # (Auto) 3.28 K/uL (1.2-3.4) Monocytes # (Auto) 0.43 K/uL (0.11-0.59) Eosinophils # (Auto) 0.16 K/uL (0-0.5) Basophils # (Auto) 0.02 K/uL (0-0.2) RDW Standard Deviation 48.4 fL (36.4-46.3) RDW Coefficient of Variation 14.0 % (11.5-14.5) Immature Granulocyte % (Auto) 0.1 % Immature Granulocyte # (Auto) 0.01 K/uL (0.00-0.02) Erythrocyte Sedimentation Rate 48 mm/hr (0-21) Anion Gap 10.0 mmol/L (3-11) Est Creatinine Clear Calc Drug Dose 85.6 ml/min Estimated GFR () 75.9 Estimated GFR (Non- 65.5 BUN/Creatinine Ratio 18.2 (10-20) Calcium Level 9.2 mg/dl (8.5-10.1) C-Reactive Protein 0.95 mg/dl (0-0.29) Medications Administered Medications (Trade) Dose Ordered Sig/Jaxon Route Start Time Stop Time Status Last Admin Dose Admin Hydromorphone HCl (Dilaudid Inj) 0.5 mg NOW STAT IV 12/14/16 16:42 12/14/16 16:47 DC 12/14/16 17:05 0.5 MG Ondansetron HCl (Zofran Inj) 4 mg NOW STAT IV 12/14/16 16:42 12/14/16 16:47 DC 12/14/16 17:05 4 MG Hydromorphone HCl (Dilaudid Inj) 0.5 mg NOW STAT IV 12/14/16 19:20 12/14/16 19:21 DC 12/14/16 19:24 0.5 MG Medical Decision Patient was seen and evaluated as above. After obtaining a thorough history and physical examination the above workup was initiated. The patient does present via ambulance. It was apparent the patient was complaining of pain in the left knee, and inability to bear weight with pain also in the left ankle. She is not complaining of any other symptoms. She denied chest pain, shortness of breath. Previous visit was reviewed, patient does have a history of COPD, as well as vascular history. Due to this concern and arterial study was obtained of the right leg, and although I was able to appreciate pulses I was concerned that in the absence of injury the patient may be experiencing arterial compromise. Results of the study as above. I agree with radiologist findings. Arterial supply is within normal limits. Patient did not have any signs or symptoms suggestive of DVT. Her leg pain was anterior and posterior in the calf. She wanted something for pain, noted that she itches with morphine there she was given 0.5 mg of Dilaudid for her pain. She was also given 4 mg of Zofran for any potential nausea this may elicit. Chest did not reveal any acute finding, this was ordered as the patient was tachycardic and hypertensive. Patient was educated upon her vital sign findings and notes this is usual for her. She notes that she has a problem with hypertension, and is usually tachycardic. I informed her that these are certainly risk factors for life-threatening ailments and that she should follow up with her family doctor soon as possible for further management of this. I do not feel that any management at this time is necessary. In review of her previous medication she is on medication already for her blood pressure. These may need to be adjusted in the outpatient setting. Therefore necessitating prompt follow-up with her family doctor. CBC reveals no leukocytosis or anemia. Inflammatory markers such as ESR and CRP were elevated. PRP reveals slight elevation in chloride, random glucose elevation, and negative Lyme. Radiograph reveals degenerative changes, no fractures. Stable ayaan. Patient is likely experiencing an exacerbation of the arthritis. She was instructed to follow-up with her family doctor regarding this finding as well as orthopedic groups. She was fitted with a knee immobilizer and given crutches. She seemed happy with plan of care. She was given another 0.5 mg of Dilaudid prior to departure. She was in good condition prior to departure. She was educated upon management of these findings, had questions answered prior to discharge, was educated upon worrisome symptoms in which to return and was discharged home in good condition. Although the inflammatory markers were elevated, the knee did not reveal any erythema, edema or undue warmth. I do not suspect septic knee. In the evaluation and treatment of this patient, the following differential diagnoses were considered: Patellar Fracture, Tibial Plateau Fracture, Distal Femur Fracture, ACL Injury, PCL Injury, Collateral Ligament Injury, Pes Anserine Bursitis, Maisonneuve Fracture. Impression Primary Impression: Knee pain Departure Information Dispostion Home / Self-Care Condition GOOD Referrals Del Bucio D.O.[facility].Med. (PCP) Kwaku Poe MD Patient Instructions [facility] Additional Instructions You have been treated in the Emergency Department for Knee Pain. You have received pain medicine in the emergency department which impairs your ability to operate a vehicle. It is illegal for you to drive after receiving these medicines. You may continue your prescribed medications. For pain control, you can use the following [id number] medicines (if >12 yo): - Regular strength (325mg/tab) Tylenol (acetaminophen) 2 tabs every 4-6 hours as needed. Do not exceed 12 tablets in a 24 hour period. Avoid taking more than 4 grams (4000 mg) of Tylenol per day. This includes any other sources of acetaminophen you may take on a regular basis. - Regular strength (200 mg/tab) Advil (ibuprofen) 1-2 tabs every 4-6 hours as needed. Do not exceed a dose of 3200 mg per day. If this is a recent injury (<24 hrs), ice can be applied to the area of pain for the first 3 days to help decrease pain and inflammation. Ice massages can be performed by freezing water in a paper cup, peeling back the cup to expose the ice and then massaging over the affected area. You have been provided the number for an Orthopaedic Surgeon. You should call this number as soon as possible to establish a follow-up visit from today's Emergency Department visit. (Dr. Poe) Your glucose/blood sugar today was 131. Keep the knee brace in place until cleared by Orthopedics. Use the crutches you have been provided to keep ALL weight off of the knee until weight bearing is tolerable. Return to the Emergency Department if your current symptoms worsen despite treatment course outlined above.
[2016-12-14] MEDS ORDERED: PROM12.57 PO (17:07)
[2016-12-14 17:13] LABS: BASO % 0.3 %; BASO ABS # 0.02 K/uL (0-0.2); COMPLETE YES; HEMATOCRIT 39.6 % (37-47); IG% 0.1 %; LYMPH % 41.2 %; LYMPH ABS # 3.28 K/uL (1.2-3.4); MEAN CELL VOLUME 93.6 fL (80-100); MEAN CORPUSCULAR HEMOGLOBIN 30.7 pg (25-34); MEAN CORPUSCULAR HGB CONC 32.8 g/dl (32-36); MEAN PLATELET VOLUME 11.3 fL (7.4-10.4); MONO % 5.4 %; PLATELET COUNT 255 K/uL (130-400); RED BLOOD COUNT 4.23 M/uL (4.2-5.4); WHITE BLOOD COUNT 7.97 K/uL (4.8-10.8)
[2016-12-14] MEDS ORDERED: METO25TA56 PO (17:25)
[2016-12-14] MEDS ORDERED: GABA1CAP4 PO (17:25)
[2016-12-14] MEDS ORDERED: HYDR-4313 PO (17:25)
[2016-12-14] MEDS ORDERED: ZNF/4 PO (17:25)
[2016-12-14] MEDS ORDERED: NRV/5 PO (17:25)
[2016-12-14] MEDS ORDERED: GLC500 PO (17:25)
[2016-12-14] MEDS ORDERED: PRX/40 PO (17:25)
[2016-12-14] MEDS ORDERED: IMDSR/60 PO (17:25)
[2016-12-14] MEDS ORDERED: NTRGSL/4 UT (17:25)
[2016-12-14] MEDS ORDERED: LPT40 PO (17:25)
[2016-12-14] MEDS ORDERED: NICO1DIS TOP (17:25)
[2016-12-14] MEDS ORDERED: MOME200A INH (17:28)
[2016-12-14] MEDS ORDERED: RANI150T2 PO (17:28)
[2016-12-14] MEDS ORDERED: OMEP40CA41 PO (17:28)
[2016-12-14] MEDS ORDERED: IPRASOL4 INH (17:31)
[2016-12-14] MEDS ORDERED: ASPI81TA28 PO (17:31)
[2016-12-14 17:42] LABS: BUN/CREATININE RATIO 18.2 (10-20); C-REACTIVE PROTEIN 0.95 mg/dl (0-0.29); CALCIUM 9.2 mg/dl (8.5-10.1); CREATININE 0.99 mg/dl (0.60-1.20)
[2016-12-14 17:47] LABS: POTASSIUM 4.2 mmol/L (3.5-5.1)
--- NOTE | 2016-12-14 18:05 | DIAGNOSTIC IMAGING REPORT ---
LEFT LOWER EXTREMITY ARTERIAL DOPPLER STUDY CLINICAL HISTORY: Left lower leg pain COMPARISON STUDY: None. FINDINGS: The left ankle-brachial index measured with the posterior tibial and dorsalis pedis arteries was 1.2. There are normal biphasic to triphasic waveforms within the left lower extremity arterial system. Velocities are within normal limits. No significant stenosis or occlusion identified. IMPRESSION: No hemodynamically significant stenosis or occlusion seen within the left lower extremity arterial system. Electronically signed by: Octaviano Garcia M.D. 12/14/2016 6:04 PM Dictated Date/Time: 12/14/2016 6:02 PM
--- NOTE | 2016-12-14 18:32 | DIAGNOSTIC IMAGING REPORT ---
CHEST 1 VW FRONT-NOT PORTABLE HISTORY: TACHYCARDIC COMPARISON: Chest 11/21/2016. FINDINGS: The lungs are clear. Cardiac silhouette is normal in size. No pleural effusions. No pneumothorax. IMPRESSION: No acute process. Electronically signed by: Octaviano Garcia M.D. 12/14/2016 6:31 PM Dictated Date/Time: 12/14/2016 6:30 PM
--- NOTE | 2016-12-14 18:38 | DIAGNOSTIC IMAGING REPORT ---
AP PELVIS/BILAT HIP MIN 3-4V, LEFT KNEE 3 VIEWS, LEFT TIBIA/FIBULA 2 VIEWS ROUTINE CLINICAL HISTORY: BILATERAL HIP PAIN. Left leg pain. COMPARISON STUDY: Sacrum/coccyx 02/12/2016. FINDINGS: Mild to moderate degenerative disc disease within the lower lumbar spine. The sacrum appears intact. There is mild osteoarthritis within the bilateral hips and sacroiliac joints. No acute fracture or dislocation within the pelvis, hips, left knee, left tibia, or left fibula. Mild cartilage space narrowing within the medial compartment of the left knee consistent with osteoarthritis. No significant knee effusion. Soft tissues are unremarkable. There is an intramedullary ayaan within the tibia with an old, healed distal tibial fracture. The hardware appears intact. Small plantar heel spur. IMPRESSION: 1. No acute fracture or dislocation within the pelvis, hips, left knee, or left lower leg. 2. Old posttraumatic and postoperative changes within the left tibia. 3. Mild osteoarthritis as described above. Electronically signed by: Octaviano Garcia M.D. 12/14/2016 6:36 PM Dictated Date/Time: 12/14/2016 6:31 PM
[2016-12-14 19:32] VITALS: BP 149/91; PULSE 116; O2SAT 94
[2016-12-14 19:59] LABS: LYME DISEASE AB IGG NEG (NEG); LYME DISEASE AB IGM NEG (NEG)
== END 2016-12-14 19:32 | disposition home or self-care (01) ==
LOC: EDBD 16:27 → C.EDD 16:28
DX: M25.562 Pain in left knee (principal); Z98.890 Other specified postprocedural states; Z86.73 Personal history of transient ischemic attack (TIA), and cerebral infarction without residual deficits; J45.909 Unspecified asthma, uncomplicated; I25.10 Atherosclerotic heart disease of native coronary artery without angina pectoris; E11.9 Type 2 diabetes mellitus without complications; I10 Essential (primary) hypertension; E78.5 Hyperlipidemia, unspecified; F32.9 Major depressive disorder, single episode, unspecified; F17.200 Nicotine dependence, unspecified, uncomplicated; Z79.82 Long term (current) use of aspirin; Z83.3 Family history of diabetes mellitus; Z82.49 Family history of ischemic heart disease and other diseases of the circulatory system; Z79.899 Other long term (current) drug therapy

== ENCOUNTER 2017-01-30 16:13 | Observation (INO) | payer OTHER ==
[~2017-01-30] VITALS: Ht 167.6 cm; Wt 127.4 kg
[~2017-01-30 16:13] MED LIST changes: -ASPCH81X PO; +ASPI81TA28 PO; -ATOR-54 PO; +GABA1CAP4 PO; +GLC500 PO; -HYDR-3983 PO; +HYDR-4313 PO; +IMDSR/60 PO; -IMDSR60 PO; +IPRASOL4 INH; -LPR25 PO; +LPT40 PO; +METO25TA56 PO; -MOME100A INH; +MOME200A INH; -NCDT14 TD; +NICO1DIS TOP; -NRN300 PO; +NRV/5 PO; -NRV5 PO; +NTRGSL/4 UT; -NTRSLP4 SL; +OMEP40CA41 PO; -PARO1TAB29 PO; -PRLSR20 PO; +PROM12.57 PO; +PRX/40 PO; +RANI150T2 PO; -TIZA4CAP PO; +ZNF/4 PO; -ZNTT/150 PO
[2017-01-30] MEDS ORDERED: SODIUM CHLORIDE 0.9% 1000ML 1,000 ML IV STA (16:19)
--- NOTE | 2017-01-30 16:47 | DIAGNOSTIC IMAGING REPORT ---
CHEST ONE VIEW PORTABLE CLINICAL HISTORY: EVALUATE WEAKNESS mental status change COMPARISON STUDY: 12/14/2016 FINDINGS: The bones soft tissues and hemidiaphragms are normal. The cardiomediastinal silhouette is normal. The lungs are clear. The pulmonary vasculature is normal. IMPRESSION: Negative chest. Electronically signed by: Tl Grullon M.D. 01/30/2017 4:45 PM Dictated Date/Time: 01/30/2017 4:43 PM
[2017-01-30] MEDS ORDERED: ONDANSETRON INJ 2 MG/ML 2 ML VIAL IV STA (16:50)
[2017-01-30] MEDS ORDERED: FENTANYL CITRATE INJ 50 MCG/1 ML 2 ML VIAL IV PRN (17:00)
[2017-01-30 18:10] LABS: HEMATOCRIT 40.1 % (37-47); MEAN CELL VOLUME 91.1 fL (80-100); MEAN CORPUSCULAR HEMOGLOBIN 30.5 pg (25-34); MEAN CORPUSCULAR HGB CONC 33.4 g/dl (32-36); MEAN PLATELET VOLUME 10.9 fL (7.4-10.4); PLATELET COUNT 241 K/uL (130-400); WHITE BLOOD COUNT 9.86 K/uL (4.8-10.8)
[2017-01-30 18:20] LABS: INR 0.9 (0.9-1.1); PARTIAL THROMBOPLASTIN RATIO 0.9; PROTHROMBIN TIME (PATIENT) 10.1 SECONDS (9.0-12.0)
[2017-01-30 18:35] LABS: BLOOD UREA NITROGEN 22 mg/dl (7-18); BUN/CREATININE RATIO 24.6 (10-20); CALCIUM 9.3 mg/dl (8.5-10.1); CARBON DIOXIDE 27 mmol/L (21-32); CHLORIDE 109 mmol/L (98-107); CREATININE 0.88 mg/dl (0.60-1.20); GLUCOSE 102 mg/dl (70-99); MAGNESIUM 2.3 mg/dl (1.8-2.4); POTASSIUM 3.9 mmol/L (3.5-5.1); SODIUM 141 mmol/L (136-145)
[2017-01-30 18:40] LABS: PREG INTERNAL NEGATIVE QC NEG CLEAR BACKGROUND; PREG INTERNAL POSITIVE QC POS CONTROL LINE
[2017-01-30 18:47] LABS: ALKALINE PHOSPHATASE 107 U/L (45-117); ALT/SGPT 24 U/L (12-78); AST/SGOT 15 U/L (15-37); CKMB/CK RATIO 0.4 (0-3.0)
[2017-01-30 19:29] LABS: BASO % 0.2 %; BASO ABS # 0.02 K/uL (0-0.2); COMPLETE YES; EOS % 1.1 %; IG% 0.2 %; LYMPH % 40.9 %; LYMPH ABS # 4.03 K/uL (1.2-3.4); MONO % 6.5 %; NEUT % 51.1 %
[2017-01-30 19:39] LABS: URINE APPEARANCE CLEAR (CLEAR); URINE BILIRUBIN NEG (NEG); URINE COLOR YELLOW; URINE EPITHELIAL CELL AUTO 20-30 /lpf (0-5); URINE NITRITE NEG (NEG); URINE SPECIFIC GRAVITY 1.028 (1.000-1.030); UROBILINOGEN NEG (NEG)
[2017-01-30 19:47] LABS: MANUAL MICROSCOPIC REQUIRED? NO; REVIEW REQ? NO
[2017-01-30] MEDS ORDERED: NITROGLYCERIN OINT 2% 1GM PACKET EXT ONE (20:45)
[2017-01-30] MEDS ORDERED: METOPROLOL TARTRATE 50 MG TAB PO ONE (22:09)
[2017-01-30] MEDS ORDERED: ALBUTEROL HFA 8 GM INHALER INH PRN (22:15)
[2017-01-30] MEDS ORDERED: ALBUT/IPRATROP 3MG/0.5MG NEB 3 ML VIAL INH PRN (22:15)
[2017-01-30] MEDS ORDERED: ACETAMINOPHEN 325 MG TAB PO PRN (22:15)
[2017-01-30] MEDS ORDERED: PROMETHAZINE HCL 25 MG TAB PO PRN (22:15)
[2017-01-30] MEDS ORDERED: NITROGLYCERIN 0.4 MG SL PER TAB CHARGE SL PRN (22:15)
[2017-01-30] MEDS ORDERED: ZOLPIDEM TARTRATE 5 MG TAB PO PRN (22:15)
--- NOTE | 2017-01-30 22:20 | History and Physical ---
History & Physical Date & Time of Service: Jan 30, 2017 at 22:20 Chief Complaint: Chest Pain Primary Care Physician: Del Bucio D.O.Int.Med. History of Present Illness Source: patient, partner The patient is a 51-year-old female who presents emergency department complaining of sudden onset of left-sided chest pain radiating toward her left arm that began just prior to arrival. This began while she was walking. She did have some milder episodes of discomfort the previous 2 days that did resolve with 1 sublingual nitroglycerin, but when the discomfort of today did not resolve with 2 sublingual nitroglycerins, she became concerned and thus is in the emergency department for assessment. She does have a history of coronary artery disease and coronary artery stents having been placed. Her last stress test in October 2016 was normal. Past Medical/Surgical History Medical Problems: (1) Acute coronary syndrome Status: Resolved (2) Acute CVA (cerebrovascular accident) Status: Resolved (3) Acute postoperative pain of right foot Status: Resolved (4) Anxiety State Nos Status: Chronic (5) Asthma, Unspecified Status: Chronic (6) CAD (coronary artery disease) Status: Chronic (7) Chest pain Status: Resolved (8) Depressive Disorder Nec Status: Chronic (9) Diab Estrellita Wo Compl, Type Ii Or Unspec Type, Not Uncntrld Status: Chronic (10) Diabetes Status: Chronic (11) Exacerbation of chronic back pain Status: Resolved (12) Exacerbation of chronic back pain Status: Resolved (13) Fall Status: Resolved (14) Hyperlipidemia Nec/Nos Status: Chronic (15) Hypertension Nos Status: Chronic (16) Ischemic cerebrovascular accident (CVA) of frontal lobe Status: Resolved (17) Left elbow pain Status: Resolved (18) Lower back pain Status: Chronic (19) Lumbar Disc Displacement Status: Chronic (20) Lumbosacral Neuritis Nos Status: Chronic (21) Migraine Status: Chronic (22) Non-hemorrhagic cerebrovascular accident Status: Resolved (23) Osteoarthros Nos-Unspec Status: Chronic (24) Posttraumatic Stress Disorder Status: Chronic (25) Precordial chest pain Status: Resolved (26) Received intravenous tissue plasminogen activator (t-PA) in emergency department Status: Resolved (27) Unstable angina Status: Resolved Surgical Problems: (1) Stented coronary artery Status: Chronic Family History Diabetes mellitus Heart disease Hypertension Social History Smoking Status: Current Every Day Smoker Smokeless Tobacco Use: No Alcohol Use: none Drug Use: none Marital Status: in relationship Housing status: lives with significant other Occupational Status: unemployed Immunizations History of Influenza Vaccine: Yes Influenza Vaccine Date: Aug 17, 2016 History of Tetanus Vaccine?: No History of Pneumococcal: Yes Pneumococcal Date: Sep 07, 2015 History of Hepatitis B Vaccine: No Multi-Drug Resistant Organisms History of MDRO: No Allergies Coded Allergies: No Known Allergies (Unverified , 01/30/17) Home Medications Scheduled Amlodipine Besylate (Amlodipine Besylate), 5 MG PO DAILY Aspirin (Aspirin Ec), 81 MG PO DAILY Atorvastatin (Atorvastatin Calcium), 40 MG PO HS Gabapentin (Gabapentin), 300 MG PO Q12 Isosorbide Mononitrate (Isosorbide Mononitrate ER), 60 MG PO DAILY Metformin HCl (Metformin HCl), 500 MG PO HS Metformin Hcl (Glucophage), 1,000 MG PO QAM Metoprolol Tartrate (Lopressor) (Lopressor), 25 MG PO BID Mometasone Furoate-Formoterol (Dulera 200/5 Mcg), 2 PUFFS INH BID Nicotine (Sm Nicotine Transdermal S), 1 PATCH TOP DAILY Omeprazole (Prilosec), 40 MG PO DAILY Paroxetine (Paroxetine HCl), 40 MG PO DAILY Ranitidine HCl (Ranitidine HCl), 150 MG PO HS Scheduled PRN Acetaminophen/Hydrocodone (Hydrocodone/Acetaminophen 5-325 mg), 1 TAB PO Q6H PRN for Pain Albuterol Hfa (Ventolin Hfa), 2 PUFFS INH Q4-6H PRN for Shortness of Breath Ipratropium-Albuterol (Duoneb), 1 TREATMENT INH Q6H PRN for Shortness of Breath Nitroglycerin (Nitrostat), 0.4 MG UT UD PRN for Chest Pain Promethazine (Phenergan ), 12.5 MG PO Q12 PRN for Migraine Review of Systems The patient denies palpitations, cough, lower extremity swelling, vision change , hearing change, sore throat, fevers, chills, sweats, weight change, fatigue, nausea, vomiting, abdominal pain, pelvic pain, blood in urine or stool, dysuria , urinary frequency or urgency, lightheadedness, dizziness, headache, memory loss, rash, abnormal bruising or bleeding, imbalance, focal or generalized weakness, numbness or tingling in legs, arthralgias or myalgias, back or neck pain, night sweats, or allergy symptoms. The review of systems is otherwise negative other than for that already noted above, and at least 10 systems have been reviewed. Physical Exam Vital Signs Date Time Temp Pulse Resp B/P Pulse Ox O2 Delivery O2 Flow Rate FiO2 01/30/17 22:00 152/94 01/30/17 21:53 107 23 93 01/30/17 21:30 150/101 01/30/17 21:26 106 01/30/17 21:23 106 28 97 01/30/17 21:18 104 22 92 01/30/17 21:00 163/101 01/30/17 20:48 109 23 92 01/30/17 20:30 139/98 01/30/17 20:18 111 22 91 01/30/17 20:13 110 24 93 01/30/17 20:00 156/92 01/30/17 19:43 110 24 92 01/30/17 19:30 140/93 01/30/17 19:24 117 16 149/103 95 Room Air 01/30/17 19:23 149/103 01/30/17 19:13 113 30 93 01/30/17 18:43 113 20 90 01/30/17 18:33 102 20 140/79 93 Room Air 01/30/17 18:31 140/79 01/30/17 18:13 105 33 01/30/17 17:43 110 29 01/30/17 17:16 102 01/30/17 16:42 99 Room Air 01/30/17 16:34 36.9 112 20 119/85 99 Room Air 01/30/17 16:34 99 Room Air 01/30/17 16:18 119/85 The patient is awake, well-developed and adequately nourished, alert and oriented 3, normocephalic and atraumatic, lying in bed and in no acute distress. HEENT--PERRL, EOMI, mucous membranes and oropharynx normal. Neck--supple, no JVD or bruits, thyroid normal, trachea midline, no adenopathy. Heart--normal S1 and S2, no extra beats, no murmurs, rubs or gallops. Lungs--clear bilaterally but diminished throughout, no respiratory distress, no accessory muscle use. Abdomen--normal bowel sounds and soft, nontender and nondistended, no hernias or masses, no organomegaly and obese. Extremities--no cyanosis, clubbing or edema. There are good distal pulses b/l. Dermatologic--normal skin turgor, normal color, warm and dry, no abnormal lymph nodes, no rash. Neurologic--cranial nerves II through XII grossly intact, motor and sensory examination normal. Rheumatologic--normal range of motion, nontender, muscles and joints. Psychiatric--normal affect. Diagnostics Laboratory Results Results Past 24 Hours Test 01/30/17 18:02 01/30/17 19:20 01/30/17 22:17 Range/Units White Blood Count 9.86 4.8-10.8 K/uL Red Blood Count 4.40 4.2-5.4 M/uL Hemoglobin 13.4 12.0-16.0 g/dL Hematocrit 40.1 37-47 % Mean Corpuscular Volume 91.1 80-100 fL Mean Corpuscular Hemoglobin 30.5 25-34 pg Mean Corpuscular Hemoglobin Concent 33.4 32-36 g/dl Platelet Count 241 130-400 K/uL Mean Platelet Volume 10.9 7.4-10.4 fL Neutrophils (%) (Auto) 51.1 % Lymphocytes (%) (Auto) 40.9 % Monocytes (%) (Auto) 6.5 % Eosinophils (%) (Auto) 1.1 % Basophils (%) (Auto) 0.2 % Neutrophils # (Auto) 5.04 1.4-6.5 K/uL Lymphocytes # (Auto) 4.03 1.2-3.4 K/uL Monocytes # (Auto) 0.64 0.11-0.59 K/uL Eosinophils # (Auto) 0.11 0-0.5 K/uL Basophils # (Auto) 0.02 0-0.2 K/uL RDW Standard Deviation 48.4 36.4-46.3 fL RDW Coefficient of Variation 14.4 11.5-14.5 % Immature Granulocyte % (Auto) 0.2 % Immature Granulocyte # (Auto) 0.02 0.00-0.02 K/uL Prothrombin Time 10.1 9.0-12.0 SECONDS Prothromb Time International Ratio 0.9 0.9-1.1 Activated Partial Thromboplast Time 23.8 21.0-31.0 SECONDS Partial Thromboplastin Ratio 0.9 D-Dimer 210 0-500 ug/L FEU Sodium Level 141 136-145 mmol/L Potassium Level 3.9 3.5-5.1 mmol/L Chloride Level 109 98-107 mmol/L Carbon Dioxide Level 27 21-32 mmol/L Anion Gap 5.0 3-11 mmol/L Blood Urea Nitrogen 22 7-18 mg/dl Creatinine 0.88 0.60-1.20 mg/dl Est Creatinine Clear Calc Drug Dose 102.1 ml/min Estimated GFR () 87.6 Estimated GFR (Non- 75.5 BUN/Creatinine Ratio 24.6 10-20 Random Glucose 102 70-99 mg/dl Calcium Level 9.3 8.5-10.1 mg/dl Magnesium Level 2.3 1.8-2.4 mg/dl Total Bilirubin 0.2 0.2-1 mg/dl Direct Bilirubin < 0.1 0-0.2 mg/dl Aspartate Amino Transf (AST/SGOT) 15 15-37 U/L Alanine Aminotransferase (ALT/SGPT) 24 12-78 U/L Alkaline Phosphatase 107 45-117 U/L Total Creatine Kinase 214 26-192 U/L Creatine Kinase MB 0.9 0.5-3.6 ng/ml Creatine Kinase MB Ratio 0.4 0-3.0 Troponin I < 0.015 0-0.045 ng/ml Total Protein 7.6 6.4-8.2 gm/dl Albumin 3.6 3.4-5.0 gm/dl Thyroid Stimulating Hormone (TSH) 1.000 0.300-4.500 uIu/ml Human Chorionic Gonadotropin, Qual NEG NEG Urine Color YELLOW Urine Appearance CLEAR CLEAR Urine pH 5.0 4.5-7.5 Urine Specific [place] 1.028 1.000-1.030 Urine Protein NEG NEG Urine Glucose (UA) NEG NEG Urine Ketones NEG NEG Urine Occult Blood NEG NEG Urine Nitrite NEG NEG Urine Bilirubin NEG NEG Urine Urobilinogen NEG NEG Urine Leukocyte Esterase TRACE NEG Urine WBC (Auto) 1-5 0-5 /hpf Urine RBC (Auto) 0-4 0-4 /hpf Urine Hyaline Casts (Auto) 1-5 0-5 /lpf Urine Epithelial Cells (Auto) 20-30 0-5 /lpf Urine Bacteria (Auto) NEG NEG Diagnostic Radiology Patient Name: CYRUS BLACKWOOD Unit Number: [id number] Dictated: 01/30/171642 Transcribed: 01/30/171642 MS Printed Date/Time: [~ rep prt dt]/[~ rep prt tm] [~ rep ct labl] - [~ rep ct ivnm] [facility] [place] [address] Dictated: 01/30/171642 Transcribed: 01/30/171642 MS Printed Date/Time: [~ rep prt dt]/[~ rep prt tm] [~ rep ct labl] - [~ rep ct ivnm] [~ rep ct add3]] CHEST ONE VIEW PORTABLE CLINICAL HISTORY: EVALUATE WEAKNESS mental status change COMPARISON STUDY: 12/14/2016 FINDINGS: The bones soft tissues and hemidiaphragms are normal. The cardiomediastinal silhouette is normal. The lungs are clear. The pulmonary vasculature is normal. IMPRESSION: Negative chest. Electronically signed by: Tl Grullon M.D. 01/30/2017 4:45 PM Dictated Date/Time: 01/30/2017 4:43 PM The status of this report is Signed. Draft = Not yet reviewed or approved by Radiologist. Signed = Reviewed and approved by Radiologist. <AttendingPhy></AttendingPhy> <FamilyPhy>Del Bucio D.O.Int.Med.</ FamilyPhy> <PrimaryPhy>Del Bucio D.O.Int.Med.</PrimaryPhy> <UnitNumber> [id number]</UnitNumber> <VisitNumber>[id number]</VisitNumber> <PatientName> CYRUS BLACKWOOD</PatientName> <DateOfBirth>1965</DateOfBirth> <Location> [facility]</Location> <ServiceDate>01/30/17</ServiceDate> <MNE>ESINDI</MNE> < OrderingPhy>Alex Cobb MD</OrderingPhy> <OrderingPhyMNE>f rep gautam ortez </OrderingPhyMNE> <DictatingPhyMNE>f rep dict dr ortez</DictatingPhyMNE> < CCListMNE>f rep ct pérez</CCListMNE> <AdmittingPhyMNE>f pt admit dr ortez</ AdmittingPhyMNE> <AttendingPhyMNE>f pt attend dr ortez</AttendingPhyMNE> <ConsultingPhyMNE>f pt consult dr ortez</ConsultingPhyMNE> <FamilyPhyMNE>f pt fam dr ortez</FamilyPhyMNE> <OtherPhyMNE>f pt other dr ortez</OtherPhyMNE> < PrimaryPhyMNE>f pt prim care dr ortez</PrimaryPhyMNE> <ReferringPhyMNE>f pt referring dr ortez</ReferringPhyMNE> EKG EKG shows normal sinus rhythm at 96 bpm, LVH, no change compared to 11/23/2016. Impression Assessment and Plan Unstable angina/CAD/coronary artery stents--the patient will be admitted to the telemetry unit for serial cardiac enzymes, cardiac rhythm monitoring and a 2-D echocardiogram with Dopplers. We will continue amlodipine 5 mg by mouth daily, enteric-coated aspirin 81 mg by mouth daily, isosorbide mononitrate ER 60 mg by mouth daily, metoprolol tartrate 25 mg by mouth twice a day, and will add Nitropaste when his anterior chest wall every 6 hours. Diabetes mellitus--hold metformin 1000 mg by mouth every morning and 500 mg by mouth at bedtime. Place on Accu-Cheks before meals and at bedtime with NovoLog coverage scale. GERD--change omeprazole 40 mg by mouth daily to pantoprazole 40 mg by mouth daily, and continue ranitidine 150 mg by mouth at bedtime. Hypercholesterolemia--continue atorvastatin 40 mg by mouth at bedtime. Cerebrovascular disease/history of ischemic CVA of frontal lobe/history of IV TPA use in the emergency department--no symptoms at this time. Asthma--changed to Dulera 200/5, which is nonformulary, his Symbicort 160/4.5, 2 puffs twice a day. We'll do nebs available to use Q4 hours when necessary. Peripheral neuropathy--continue gabapentin 300 mg by mouth every 12 hours. Depression--continue Peroxin 1540 mg by mouth daily. History of tobacco abuse--continue Transderm nicotine patch. Level of Care Telemetry Advanced Directives Existing Advance Directive: No Existing Living Will: No Existing Power of .Net Programmer: No Resuscitation Status FULL RESUSCITATION VTE Prophylaxis VTE Risk Assessment Done? Y/N: Yes Risk Level: Moderate Given or contraindicated: SCD's Social Service Consult None Apply
[2017-01-30] MEDS ORDERED: GLUCOSE 10 TABS/TUBE PO PRN (22:30)
[2017-01-30] MEDS ORDERED: GLUCAGON FOR INJ 1 MG VIAL SQ PRN (22:30)
[2017-01-30] MEDS ORDERED: DEXTROSE 50% 50 ML SYR IV PRN (22:30)
[2017-01-30] MEDS ORDERED: ONDANSETRON INJ 2 MG/ML 2 ML VIAL IV PRN (22:30)
[2017-01-30] MEDS ORDERED: GLUCOSE 40% GEL 15 GM TUBE PO PRN (22:30)
[2017-01-30 22:46] VITALS: Ht 167.6 cm; Wt 127.4 kg
[2017-01-30 23:10] VITALS: O2SAT 92
[2017-01-30 23:13] LABS: CKMB/CK RATIO 0.5 (0-3.0)
--- NOTE | 2017-01-30 23:28 | EMERGENCY ROOM VISIT NOTE ---
History Report prepared by Lisa: Alexis Garcia Under the Supervision of: Dr. Alex Cobb M.D. First contact with patient: 16:19 Chief Complaint: CHEST PAIN Stated Complaint: CHEST PAIN Nursing Triage Summary: Patient arrived via ALS. Per paramedics and patient went for walk. Came home from walk and was sitting on couch when sudden, aching chest pain began. Patient took nitro x2 at home with little relief. Paramedics noted heavy breathing which patients stated was normal. Patient was given 2 more nitro and 324 aspirin while transporting. Patient c/o 8/10 chest pain that radiates to left arm upon arrival to ER. Patient was here 1 month ago for similar chest pain. Patient has hx of stent x2. History of Present Illness The patient is a 51 year old female who presents to the Emergency Room with complaints of sudden left sided chest pain beginning just prior to arrival. She describes her discomfort as an "ache" and currently rates her discomfort as a 6/ 10 in severity. The patient associates left arm tingling, upper left back pain, left shoulder pain, and feet and leg swelling with today's symptoms. She states she went for two walks, and when she got home and sat on the cough that the chest pain came on suddenly. The patient notes she took two Nitros at home, which alleviated her chest discomfort, but it is returning. She states the paramedics gave her aspirin. The patient notes she has had heart issues in the past, in which, she had cardiac stents placed. She states today's episode feels similar to her previous episodes. The patient notes she experienced chest pains in October, and she had a normal stress test. Pt denies LOC, headache, fevers, chills, diaphoresis, visual changes, neck pain, breathing difficulties, nausea, vomiting, abdominal pain, melena, hematochezia, urinary symptoms, numbness, weakness, lymphadenopathy, rash, recent long travel or other complaints. Source of History: patient Onset: just prior to arrival Position: chest (left) Symptom Intensity: 6/10 Quality: ache Timing: other (sudden) Modifying Factors (Worsening): exertion Modifying Factors (Relieving): other (Nitro) Associated Symptoms: + back pain (upper left), + chest pain Note: Associated symptoms: left arm tingling, left shoulder pain, feet and leg swelling Review of Systems See HPI for pertinent positives and negatives. A total of ten systems were reviewed and were otherwise negative. Past Medical & Surgical Medical Problems: (1) Acute coronary syndrome (2) Acute CVA (cerebrovascular accident) (3) Acute postoperative pain of right foot (4) Anxiety State Nos (5) Asthma exacerbation (6) Asthma, Unspecified (7) Asthmatic bronchitis (8) CAD (coronary artery disease) (9) Chest pain (10) Chest pain radiating to arm (11) Depressive Disorder Nec (12) Diab Estrellita Wo Compl, Type Ii Or Unspec Type, Not Uncntrld (13) Diabetes (14) KLINE (dyspnea on exertion) (15) Exacerbation of chronic back pain (16) Exacerbation of chronic back pain (17) Fall (18) Hyperlipidemia Nec/Nos (19) Hypertension Nos (20) Ischemic cerebrovascular accident (CVA) of frontal lobe (21) Left elbow pain (22) Lower back pain (23) Lumbar Disc Displacement (24) Lumbosacral Neuritis Nos (25) Migraine (26) Non-hemorrhagic cerebrovascular accident (27) Osteoarthros Nos-Unspec (28) Posttraumatic Stress Disorder (29) Precordial chest pain (30) Received intravenous tissue plasminogen activator (t-PA) in emergency department (31) Unstable angina Surgical Problems: (1) Stented coronary artery Family History Diabetes mellitus Heart disease Hypertension Social History Smoking Status: Current Every Day Smoker Alcohol Use: none Drug Use: none Marital Status: in relationship Housing Status: lives with family Occupation Status: unemployed Current/Historical Medications Scheduled Amlodipine Besylate (Amlodipine Besylate), 5 MG PO DAILY Aspirin (Aspirin Ec), 81 MG PO DAILY Atorvastatin (Atorvastatin Calcium), 40 MG PO HS Gabapentin (Gabapentin), 300 MG PO Q12 Isosorbide Mononitrate (Isosorbide Mononitrate ER), 60 MG PO DAILY Metformin HCl (Metformin HCl), 500 MG PO HS Metformin Hcl (Glucophage), 1,000 MG PO QAM Metoprolol Tartrate (Lopressor) (Lopressor), 25 MG PO BID Mometasone Furoate-Formoterol (Dulera 200/5 Mcg), 2 PUFFS INH BID Nicotine (Sm Nicotine Transdermal S), 1 PATCH TOP DAILY Omeprazole (Prilosec), 40 MG PO DAILY Paroxetine (Paroxetine HCl), 40 MG PO DAILY Ranitidine HCl (Ranitidine HCl), 150 MG PO HS Scheduled PRN Acetaminophen/Hydrocodone (Hydrocodone/Acetaminophen 5-325 mg), 1 TAB PO Q6H PRN for Pain Albuterol Hfa (Ventolin Hfa), 2 PUFFS INH Q4-6H PRN for Shortness of Breath Ipratropium-Albuterol (Duoneb), 1 TREATMENT INH Q6H PRN for Shortness of Breath Nitroglycerin (Nitrostat), 0.4 MG UT UD PRN for Chest Pain Promethazine (Phenergan ), 12.5 MG PO Q12 PRN for Migraine Allergies Coded Allergies: No Known Allergies (Unverified , 01/30/17) Physical Exam Vital Signs Date Time Temp Pulse Resp B/P Pulse Ox O2 Delivery O2 Flow Rate FiO2 01/30/17 23:05 99 20 94 01/30/17 23:00 131/84 01/30/17 22:46 Room Air 01/30/17 22:35 102 20 92 01/30/17 22:30 160/101 01/30/17 22:05 104 18 94 01/30/17 22:00 152/94 01/30/17 21:53 107 23 93 01/30/17 21:30 150/101 01/30/17 21:26 106 01/30/17 21:23 106 28 97 01/30/17 21:18 104 22 92 01/30/17 21:00 163/101 01/30/17 20:48 109 23 92 01/30/17 20:30 139/98 01/30/17 20:18 111 22 91 01/30/17 20:13 110 24 93 01/30/17 20:00 156/92 01/30/17 19:43 110 24 92 01/30/17 19:30 140/93 01/30/17 19:24 117 16 149/103 95 Room Air 01/30/17 19:23 149/103 01/30/17 19:13 113 30 93 01/30/17 18:43 113 20 90 01/30/17 18:33 102 20 140/79 93 Room Air 01/30/17 18:31 140/79 01/30/17 18:13 105 33 01/30/17 17:43 110 29 01/30/17 17:16 102 01/30/17 16:42 99 Room Air 01/30/17 16:34 36.9 112 20 119/85 99 Room Air 01/30/17 16:34 99 Room Air 01/30/17 16:18 119/85 Physical Exam GENERAL: Awake, alert, uncomfortable-appearing, in no distress HENT: Normocephalic, atraumatic. Oropharynx unremarkable. EYES: Normal conjunctiva. Sclera non-icteric. NECK: Supple. No nuchal rigidity. FROM. No JVD. RESPIRATORY: Clear to auscultation. CARDIAC: Borderline tachycardic, normal rhythm. Extremities warm and well perfused. Pulses equal. ABDOMEN: Soft, non-distended. No tenderness to palpation. No rebound or guarding. No masses. RECTAL: Deferred. MUSCULOSKELETAL: Chest examination reveals no tenderness. The back is symmetrical on inspection without obvious abnormality. There is no CVA tenderness to palpation. No joint edema. LOWER EXTREMITIES: Calves are equal size bilaterally and non-tender. No edema. No discoloration. NEURO: Normal sensorium. No sensory or motor deficits noted. SKIN: No rash or jaundice noted. Medical Decision & Procedures ER Provider Diagnostic Interpretation: X-ray: Per my interpretation, radiologist review. CHEST ONE VIEW PORTABLE CLINICAL HISTORY: EVALUATE WEAKNESS mental status change COMPARISON STUDY: 12/14/2016 FINDINGS: The bones soft tissues and hemidiaphragms are normal. The cardiomediastinal silhouette is normal. The lungs are clear. The pulmonary vasculature is normal. IMPRESSION: Negative chest. Electronically signed by: Tl Grullon M.D. 01/30/2017 4:45 PM Laboratory Results 01/30/17 18:02 Red Blood Count 4.40, Mean Corpuscular Volume 91.1, Mean Corpuscular Hemoglobin 30.5, Mean Corpuscular Hemoglobin Concent 33.4, Mean Platelet Volume 10.9, Neutrophils (%) (Auto) 51.1, Lymphocytes (%) (Auto) 40.9, Monocytes (%) (Auto) 6.5, Eosinophils (%) (Auto) 1.1, Basophils (%) (Auto) 0.2, Neutrophils # (Auto) 5.04, Lymphocytes # (Auto) 4.03, Monocytes # (Auto) 0.64, Eosinophils # (Auto) 0.11, Basophils # (Auto) 0.02 01/30/17 18:02 Test 01/30/17 18:02 01/30/17 19:20 01/30/17 22:43 White Blood Count 9.86 K/uL (4.8-10.8) Red Blood Count 4.40 M/uL (4.2-5.4) Hemoglobin 13.4 g/dL (12.0-16.0) Hematocrit 40.1 % (37-47) Mean Corpuscular Volume 91.1 fL (80-100) Mean Corpuscular Hemoglobin 30.5 pg (25-34) Mean Corpuscular Hemoglobin Concent 33.4 g/dl (32-36) Platelet Count 241 K/uL (130-400) Mean Platelet Volume 10.9 fL (7.4-10.4) Neutrophils (%) (Auto) 51.1 % Lymphocytes (%) (Auto) 40.9 % Monocytes (%) (Auto) 6.5 % Eosinophils (%) (Auto) 1.1 % Basophils (%) (Auto) 0.2 % Neutrophils # (Auto) 5.04 K/uL (1.4-6.5) Lymphocytes # (Auto) 4.03 K/uL (1.2-3.4) Monocytes # (Auto) 0.64 K/uL (0.11-0.59) Eosinophils # (Auto) 0.11 K/uL (0-0.5) Basophils # (Auto) 0.02 K/uL (0-0.2) RDW Standard Deviation 48.4 fL (36.4-46.3) RDW Coefficient of Variation 14.4 % (11.5-14.5) Immature Granulocyte % (Auto) 0.2 % Immature Granulocyte # (Auto) 0.02 K/uL (0.00-0.02) Prothrombin Time 10.1 SECONDS (9.0-12.0) Prothromb Time International Ratio 0.9 (0.9-1.1) Activated Partial Thromboplast Time 23.8 SECONDS (21.0-31.0) Partial Thromboplastin Ratio 0.9 D-Dimer 210 ug/L FEU (0-500) Anion Gap 5.0 mmol/L (3-11) Est Creatinine Clear Calc Drug Dose 102.1 ml/min Estimated GFR () 87.6 Estimated GFR (Non- 75.5 BUN/Creatinine Ratio 24.6 (10-20) Calcium Level 9.3 mg/dl (8.5-10.1) Magnesium Level 2.3 mg/dl (1.8-2.4) Total Bilirubin 0.2 mg/dl (0.2-1) Direct Bilirubin < 0.1 mg/dl (0-0.2) Aspartate Amino Transf (AST/SGOT) 15 U/L (15-37) Alanine Aminotransferase (ALT/SGPT) 24 U/L (12-78) Alkaline Phosphatase 107 U/L (45-117) Total Protein 7.6 gm/dl (6.4-8.2) Albumin 3.6 gm/dl (3.4-5.0) Thyroid Stimulating Hormone (TSH) 1.000 uIu/ml (0.300-4.500) Human Chorionic Gonadotropin, Qual NEG (NEG) Urine Color YELLOW Urine Appearance CLEAR (CLEAR) Urine pH 5.0 (4.5-7.5) Urine Specific [place] 1.028 (1.000-1.030) Urine Protein NEG (NEG) Urine Glucose (UA) NEG (NEG) Urine Ketones NEG (NEG) Urine Occult Blood NEG (NEG) Urine Nitrite NEG (NEG) Urine Bilirubin NEG (NEG) Urine Urobilinogen NEG (NEG) Urine Leukocyte Esterase TRACE (NEG) Urine WBC (Auto) 1-5 /hpf (0-5) Urine RBC (Auto) 0-4 /hpf (0-4) Urine Hyaline Casts (Auto) 1-5 /lpf (0-5) Urine Epithelial Cells (Auto) 20-30 /lpf (0-5) Urine Bacteria (Auto) NEG (NEG) Total Creatine Kinase 183 U/L (26-192) Creatine Kinase MB 0.9 ng/ml (0.5-3.6) Creatine Kinase MB Ratio 0.5 (0-3.0) Troponin I < 0.015 ng/ml (0-0.045) Laboratory results reviewed by me Medications Administered Medications (Trade) Dose Ordered Sig/Jaxon Route Start Time Stop Time Status Last Admin Dose Admin Sodium Chloride (Nss 1000ml) 1,000 ml @ 125 mls/hr Q8H STAT IV 01/30/17 16:19 01/31/17 00:18 01/30/17 18:32 125 MLS/HR Fentanyl Citrate (Fentanyl Inj) 100 mcg Q15M PRN IV 01/30/17 17:00 02/13/17 16:59 01/30/17 18:32 100 MCG Ondansetron HCl (Zofran Inj) 4 mg NOW STAT IV 01/30/17 16:50 01/30/17 16:51 DC 01/30/17 18:32 4 MG Nitroglycerin (Nitroglycerin 2% Oint) 0.5 inch NOW ONCE EXT 01/30/17 20:45 01/30/17 20:46 DC 01/30/17 21:03 0.5 INCH Metoprolol Tartrate (Lopressor Tab) 50 mg 9 ONCE PO 01/30/17 22:09 01/30/17 22:41 DC 01/30/17 23:07 50 MG ECG Indication: chest pain Rate (beats per minute): 96 Rhythm: normal sinus Findings: no acute ischemic change, no ectopy, other (LVH) Change: Pre-hospital EKG: Sinus tachycardia. Rate 111. No acute ischemia. ED Course 161: Ordered Sodium Chloride 1,000 ml @ 125 mls/hr IV. 164: The patient was evaluated in room C9. A complete history and physical exam was performed. 1649: Ordered Zofran Inj 4 mg IV. 1699: Ordered Fentanyl Inj 100 mcg. 1744: Reevaluated the patient at this time, and the nurses are still working on getting an IV and labs. 2043: Reevaluated the patient at this time, and she is doing well but her chest pain returned a little. 2044: Ordered Nitroglycerin 0.5 inch EXT. 2048: I spoke to NUHA Knox (Hospitalist) about the patient's case, and he will follow the patient for further evaluation. Medical Decision Triage Nursing notes reviewed. The patient's presentation and history were concerning for chest pain. Etiologies such as cardiac ischemia, aortic dissection, pulmonary embolism, pneumonia, pneumothorax, musculoskeletal, infections, gastrointestinal, as well as others were entertained. The patient was evaluated. She had tachycardia but no ischemia on prehospital and ED Ecg. The patient was a difficult lab and IV stick. She was given zofran and fentanyl for symptom control. Xray was unremarkable. Her CBC, chemistry panel, d-dimer, cardiac markers were negative 1. The patient had a slight recurrence of pain. She was given nitro paste. Because of her history and symptoms she will need further evaluation and management in the hospital. Consultation was made with internal medicine and the patient was evaluated for further treatment. The chart was completed utilizing [employer] Speech voice recognition software. Grammatical errors, random word insertions, pronoun errors, and incomplete sentences are an occasional consequence of this system due to software limitations, ambient noise, and hardware issues. Any formal questions or concerns about the content, text, or information contained within the body of this dictation should be directly addressed to the physician for clarification. Consults Time Called: 2045 Consulting Physician: NUHA Knox (Hospitalist) Returned Call: 2048 I spoke to NUHA Knox (Hospitalist) about the patient's case, and he will follow the patient for further evaluation. Impression Primary Impression: Left sided chest pain Scribe Attestation The scribe's documentation has been prepared under my direction and personally reviewed by me in its entirety. I confirm that the note above accurately reflects all work, treatment, procedures, and medical decision making performed by me. Departure Information Dispostion Being Evaluated By Hospitalist (NUHA Knox (Hospitalist)) Referrals Del Bucio D.O.Int.[facility]. (PCP)
[2017-01-30] MEDS ORDERED: IV FLUIDS COMPLETED PRN (23:30)
[2017-01-31 00:08] VITALS: BP 132/82; PULSE 102; TEMP 36.6; O2SAT 92
[2017-01-31] MEDS: MoRPHine SULFATE 2 MG/ML CARP IV PRN ×6 (00:33→17:19)
[2017-01-31] MEDS: NITROGLYCERIN OINT 2% 1GM PACKET EXT SCH ×2 (03:36→12:06)
[2017-01-31 03:38] VITALS: BP 131/87; PULSE 88; TEMP 36.7; O2SAT 94
[2017-01-31 06:59] LABS: BASO % 0.1 %; BASO ABS # 0.01 K/uL (0-0.2); COMPLETE YES; EOS % 1.5 %; HEMATOCRIT 38.4 % (37-47); IG% 0.1 %; LYMPH % 49.4 %; LYMPH ABS # 4.24 K/uL (1.2-3.4); MEAN CELL VOLUME 94.8 fL (80-100); MEAN CORPUSCULAR HEMOGLOBIN 30.6 pg (25-34); MEAN CORPUSCULAR HGB CONC 32.3 g/dl (32-36); MEAN PLATELET VOLUME 11.3 fL (7.4-10.4); MONO % 6.9 %; PLATELET COUNT 244 K/uL (130-400); RED BLOOD COUNT 4.05 M/uL (4.2-5.4); WHITE BLOOD COUNT 8.58 K/uL (4.8-10.8)
[2017-01-31 07:08] LABS: INR 0.9 (0.9-1.1)
[2017-01-31 07:15] LABS: ALT/SGPT 23 U/L (12-78); BLOOD UREA NITROGEN 18 mg/dl (7-18); BUN/CREATININE RATIO 20.1 (10-20); CALCIUM 8.2 mg/dl (8.5-10.1); CARBON DIOXIDE 24 mmol/L (21-32); CHLORIDE 107 mmol/L (98-107); GLUCOSE 156 mg/dl (70-99); SODIUM 139 mmol/L (136-145)
[2017-01-31 07:20] LABS: ALKALINE PHOSPHATASE 102 U/L (45-117); AST/SGOT 17 U/L (15-37); CKMB/CK RATIO 0.6 (0-3.0)
[2017-01-31 07:47] VITALS: BP 127/66; PULSE 97; TEMP 36.7; O2SAT 92
--- NOTE | 2017-01-31 08:13 | Hospitalist Progress Note ---
Hospitalist Progress Note Date of Service Jan 31, 2017. Subjective Pt evaluation today including: conversation w/ patient, physical exam, chart review, lab review, review of studies, review of inpatient medication list Voiding: no voiding problems, no incontinence Patient still complains of left-sided chest pressure radiating to back, left arm /jaw. She states these symptoms are similar when she had an IN. She was seen in October for angina- at that time, cardiology workup unremarkable. Her symptoms are more intense/longer in duration from October visit. Normally her angina is relieved with Nitro- unsuccessful yesterday. She admits to smoking 7-8 cigarettes per day. She states her sugars have been controlled 100-120. She admits to associated lightheadedness and SOB. Patient denies any fever, chills, sweats, dizziness, vision changes, palpitations, edema, wheezing, cough, abdominal pain, nausea, vomiting, diarrhea, urinary symptoms, melena, numbness/ tingling, weakness, muscle/joint pain, anxiety/depression, active bleeding, or new skin discoloration/changes. Medications Current Inpatient Medications Medications (Trade) Dose Ordered Sig/Jaxon Route Start Time Stop Time Status Last Admin Dose Admin Fentanyl Citrate (Fentanyl Inj) 100 mcg Q15M PRN IV 01/30/17 17:00 02/13/17 16:59 01/30/17 18:32 100 MCG Acetaminophen (Tylenol Tab) 650 mg Q4H PRN PO 01/30/17 22:15 03/01/17 22:14 Zolpidem Tartrate (Ambien Tab) 5 mg HSZ PRN PO 01/30/17 22:15 03/01/17 22:14 Nitroglycerin (Nitrostat Tab) 0.4 mg UD PRN SL 01/30/17 22:15 03/01/17 22:14 Nitroglycerin (Nitroglycerin 2% Oint) 1 inch Q6 EXT 01/31/17 04:00 03/02/17 03:59 01/31/17 03:36 1 INCH Morphine Sulfate (MoRPHine SULFATE INJ) 2 mg Q30M PRN IV 01/30/17 22:15 02/13/17 22:14 01/31/17 08:43 2 MG Albuterol (Ventolin Hfa Inhaler) 2 puffs QID PRN INH 01/30/17 22:15 03/01/17 22:14 01/31/17 05:51 2 PUFFS Amlodipine Besylate (Norvasc Tab) 5 mg DAILY PO 01/31/17 09:00 03/02/17 08:59 01/31/17 08:33 5 MG Aspirin (Ecotrin Tab) 81 mg DAILY PO 01/31/17 09:00 03/02/17 08:59 01/31/17 08:34 81 MG Atorvastatin Calcium (Lipitor Tab) 40 mg HS PO 01/31/17 21:00 03/02/17 20:59 Gabapentin (Neurontin Cap) 300 mg Q12 PO 01/31/17 09:00 03/02/17 08:59 01/31/17 08:33 300 MG Albuterol/ Ipratropium (Duoneb) 3 ml Q6H PRN INH 01/30/17 22:15 03/01/17 22:14 Isosorbide Mononitrate (Imdur Ext Rel Tab) 60 mg DAILY PO 01/31/17 09:00 03/02/17 08:59 01/31/17 08:34 60 MG Metoprolol Tartrate (Lopressor Tab) 50 mg BID PO 01/31/17 09:00 03/02/17 08:59 01/31/17 08:34 50 MG Nicotine (Nicoderm Cq 21MG Patch) 1 patch DAILY TD 01/31/17 09:00 03/02/17 08:59 01/31/17 08:36 1 PATCH Promethazine HCl (Phenergan Tab) 12.5 mg Q6H PRN PO 01/30/17 22:15 03/01/17 22:14 Ranitidine HCl (zANTac TAB) 150 mg HS PO 01/31/17 21:00 03/02/17 20:59 Pantoprazole Sodium (Protonix Tab) 40 mg QAM PO 01/31/17 09:00 03/02/17 08:59 01/31/17 08:33 40 MG Paroxetine HCl (pAXil TAB) 40 mg QAM PO 01/31/17 09:00 03/02/17 08:59 01/31/17 08:33 40 MG Ondansetron HCl (Zofran Inj) 4 mg Q6H PRN IV 01/30/17 22:30 03/01/17 22:29 Insulin Aspart (novoLOG ASPART) SLIDING SCALE If C... ACHS SC 01/31/17 06:30 03/02/17 06:59 01/31/17 08:38 4 UNITS Glucose (Glucose 40% Gel) UD PRN PO 01/30/17 22:30 03/01/17 22:29 Glucose (Glucose Chew Tab) 1 tabs UD PRN PO 01/30/17 22:30 03/01/17 22:29 Dextrose (Dextrose 50% 50ML Syringe) 50 ml UD PRN IV 01/30/17 22:30 03/01/17 22:29 Glucagon (Glucagon Inj) 1 mg UD PRN SQ 01/30/17 22:30 03/01/17 22:29 Miscellaneous (Remove Nicoderm Patch) 1 ea QAM N/A 01/31/17 09:00 03/02/17 08:59 Miscellaneous (Iv Fluids Completed) 1 ea PRN PRN N/A 01/30/17 23:30 01/30/18 23:29 Objective Vital Signs Date Time Temp Pulse Resp B/P Pulse Ox O2 Delivery O2 Flow Rate FiO2 01/31/17 07:47 36.7 97 18 127/66 92 Room Air 01/31/17 04:00 Room Air 01/31/17 03:38 36.7 88 18 131/87 94 Room Air 01/31/17 00:30 Room Air 01/31/17 00:08 36.6 102 22 132/82 92 Room Air 01/30/17 23:30 137/77 01/30/17 23:10 105 22 92 01/30/17 23:05 99 20 94 01/30/17 23:00 131/84 01/30/17 22:46 Room Air 01/30/17 22:35 102 20 92 01/30/17 22:30 160/101 01/30/17 22:05 104 18 94 01/30/17 22:00 152/94 01/30/17 21:53 107 23 93 01/30/17 21:30 150/101 01/30/17 21:26 106 01/30/17 21:23 106 28 97 01/30/17 21:18 104 22 92 01/30/17 21:00 163/101 01/30/17 20:48 109 23 92 01/30/17 20:30 139/98 01/30/17 20:18 111 22 91 01/30/17 20:13 110 24 93 01/30/17 20:00 156/92 01/30/17 19:43 110 24 92 01/30/17 19:30 140/93 01/30/17 19:24 117 16 149/103 95 Room Air 01/30/17 19:23 149/103 01/30/17 19:13 113 30 93 01/30/17 18:43 113 20 90 01/30/17 18:33 102 20 140/79 93 Room Air 01/30/17 18:31 140/79 01/30/17 18:13 105 33 01/30/17 17:43 110 29 01/30/17 17:16 102 01/30/17 16:42 99 Room Air 01/30/17 16:34 36.9 112 20 119/85 99 Room Air 01/30/17 16:34 99 Room Air 01/30/17 16:18 119/85 Physical Exam General Appearance: no apparent distress, + obese Eyes: normal inspection, PERRL ENT: hearing grossly normal Neck: supple Respiratory/Chest: no respiratory distress, no accessory muscle use, + rhonchi (throughout all lung mohr ), + wheezing (slight expiratory wheeze throughout lung mohr ) Cardiovascular: regular rate, rhythm Abdomen: normal bowel sounds, non tender, soft Extremities: no pedal edema, no calf tenderness Neurologic/Psychiatric: alert, normal mood/affect, oriented x 3 Skin: normal color, warm/dry, no rash Laboratory Results Last 24 Hours Test 01/30/17 18:02 01/30/17 19:20 01/30/17 22:43 01/31/17 06:17 White Blood Count 9.86 K/uL 8.58 K/uL Red Blood Count 4.40 M/uL 4.05 M/uL Hemoglobin 13.4 g/dL 12.4 g/dL Hematocrit 40.1 % 38.4 % Mean Corpuscular Volume 91.1 fL 94.8 fL Mean Corpuscular Hemoglobin 30.5 pg 30.6 pg Mean Corpuscular Hemoglobin Concent 33.4 g/dl 32.3 g/dl Platelet Count 241 K/uL 244 K/uL Mean Platelet Volume 10.9 fL 11.3 fL Neutrophils (%) (Auto) 51.1 % 42.0 % Lymphocytes (%) (Auto) 40.9 % 49.4 % Monocytes (%) (Auto) 6.5 % 6.9 % Eosinophils (%) (Auto) 1.1 % 1.5 % Basophils (%) (Auto) 0.2 % 0.1 % Neutrophils # (Auto) 5.04 K/uL 3.60 K/uL Lymphocytes # (Auto) 4.03 K/uL 4.24 K/uL Monocytes # (Auto) 0.64 K/uL 0.59 K/uL Eosinophils # (Auto) 0.11 K/uL 0.13 K/uL Basophils # (Auto) 0.02 K/uL 0.01 K/uL RDW Standard Deviation 48.4 fL 50.8 fL RDW Coefficient of Variation 14.4 % 14.7 % Immature Granulocyte % (Auto) 0.2 % 0.1 % Immature Granulocyte # (Auto) 0.02 K/uL 0.01 K/uL Prothrombin Time 10.1 SECONDS 10.0 SECONDS Prothromb Time International Ratio 0.9 0.9 Activated Partial Thromboplast Time 23.8 SECONDS 25.0 SECONDS Partial Thromboplastin Ratio 0.9 1.0 D-Dimer 210 ug/L FEU Sodium Level 141 mmol/L 139 mmol/L Potassium Level 3.9 mmol/L 4.0 mmol/L Chloride Level 109 mmol/L 107 mmol/L Carbon Dioxide Level 27 mmol/L 24 mmol/L Anion Gap 5.0 mmol/L 8.0 mmol/L Blood Urea Nitrogen 22 mg/dl 18 mg/dl Creatinine 0.88 mg/dl 0.90 mg/dl Est Creatinine Clear Calc Drug Dose 102.1 ml/min 99.9 ml/min Estimated GFR () 87.6 85.2 Estimated GFR (Non- 75.5 73.5 BUN/Creatinine Ratio 24.6 20.1 Random Glucose 102 mg/dl 156 mg/dl Calcium Level 9.3 mg/dl 8.2 mg/dl Magnesium Level 2.3 mg/dl 2.0 mg/dl Total Bilirubin 0.2 mg/dl 0.2 mg/dl Direct Bilirubin < 0.1 mg/dl < 0.1 mg/dl Aspartate Amino Transf (AST/SGOT) 15 U/L 17 U/L Alanine Aminotransferase (ALT/SGPT) 24 U/L 23 U/L Alkaline Phosphatase 107 U/L 102 U/L Total Creatine Kinase 214 U/L 183 U/L 159 U/L Creatine Kinase MB 0.9 ng/ml 0.9 ng/ml 0.9 ng/ml Creatine Kinase MB Ratio 0.4 0.5 0.6 Troponin I < 0.015 ng/ml < 0.015 ng/ml < 0.015 ng/ml Total Protein 7.6 gm/dl 6.5 gm/dl Albumin 3.6 gm/dl 3.0 gm/dl Thyroid Stimulating Hormone (TSH) 1.000 uIu/ml Human Chorionic Gonadotropin, Qual NEG Urine Color YELLOW Urine Appearance CLEAR Urine pH 5.0 Urine Specific [place] 1.028 Urine Protein NEG Urine Glucose (UA) NEG Urine Ketones NEG Urine Occult Blood NEG Urine Nitrite NEG Urine Bilirubin NEG Urine Urobilinogen NEG Urine Leukocyte Esterase TRACE Urine WBC (Auto) 1-5 /hpf Urine RBC (Auto) 0-4 /hpf Urine Hyaline Casts (Auto) 1-5 /lpf Urine Epithelial Cells (Auto) 20-30 /lpf Urine Bacteria (Auto) NEG Test 01/31/17 07:21 Bedside Glucose 124 mg/dl Assessment and Plan The patient is a 51-year-old female who presents emergency department complaining of sudden onset of left-sided chest pain radiating toward her left arm that began just prior to arrival. This began while she was walking. She did have some milder episodes of discomfort the previous 2 days that did resolve with 1 sublingual nitroglycerin, but when the discomfort of today did not resolve with 2 sublingual nitroglycerins, she became concerned and thus is in the emergency department for assessment. She does have a history of coronary artery disease and coronary artery stents having been placed. Her last stress test in October 2016 was normal. Unstable angina/CAD s/p left circumflex distal vessel stenting remotely, widely patent coronaries at cath 2015: - Admit to tele observation for cardiac monitoring- NSR - Trend cardiac enzymes- negative - EKG- no significant changes - Continue Amlodipine 5 mg daily, ASA 81 mg daily, Isosorbide mononitrate ER 60 mg daily, Metoprolol tartrate 25 mg BID - Nitropaste q6 hrs - ECHO- Left ventricular systolic function is moderately reduced. Grade I diastolic dysfunction, (abnormal relaxation pattern). There is moderate mitral regurgitation. Compared to a study performed several weeks ago, there is little change - Consult cardiology, appreciate recommendations T2DM: - Hold Metformin 1000 mg QAM and 500 mg HS - BSG ACHS w/ sliding insulin scale - ha1c of 7.2 on 11/22- diabetic eduction GERD: Change Omeprazole 40 mg daily to Pantoprazole 40 mg daily, and continue Ranitidine 150 mg HS Hypercholesterolemia: - Continue Atorvastatin 40 mg HS - Lipid panel 12/27- triglycerides 166, total cholesterol 176, LDL 104, HDL 39 Cerebrovascular disease/history of ischemic CVA of frontal lobe/history of IV TPA use in the emergency department--no symptoms at this time. Asthma: - Changed to Dulera 200/5, which is nonformulary, Symbicort 160/4.5, 2 puffs BID - DuoNebs q4 hrs PRN Peripheral neuropathy: Continue Gabapentin 300 mg BID Depression: Continue Peroxin 1540 mg daily History of tobacco abuse: Continue Transderm nicotine patch GI Prophylaxis: Maalox PRN, IV Zofran PRN, Colace and/or Milk of Mag PRN DVT prophylaxis: HILDA and SCDs, ambulation Code Status: LEVEL I, FULL Dispo: Discharge to home once medically stable
[2017-01-31] MEDS: INSULIN ASPART 100 UNITS/ML 3 ML PEN SC SCH ×3 (08:38→17:21)
[2017-01-31] MEDS ORDERED: AMLODIPINE BESYLATE 5 MG TAB PO SCH (09:00)
[2017-01-31] MEDS ORDERED: PANTOprazole SOD 40 MG TAB PO SCH (09:00)
[2017-01-31] MEDS ORDERED: NICOTINE 21 MG/24 HR TDSY TD SCH (09:00)
[2017-01-31] MEDS ORDERED: GABAPENTIN 300 MG CAP PO SCH (09:00)
[2017-01-31] MEDS ORDERED: ASPIRIN 81 MG ECTAB PO SCH (09:00)
[2017-01-31] MEDS ORDERED: PAROXETINE 20 MG TAB PO SCH (09:00)
[2017-01-31] MEDS ORDERED: ISOSORBIDE MONONITRATE 60 MG TABCR PO SCH (09:00)
[2017-01-31] MEDS ORDERED: METOPROLOL TARTRATE 50 MG TAB PO SCH (09:00)
[2017-01-31 11:03] VITALS: BP 122/61; PULSE 73; TEMP 36.5; O2SAT 95
--- NOTE | 2017-01-31 11:11 | ECHOCARDIOGRAM REPORT ---
*NOTICE TO RECEIVING [employer] This information is strictly Confidential and protected under [place] law. [place] law prohibits you from making any further disclosure of this information unless further disclosure is expressly permitted by the written consent of the person to whom it pertains or is authorized by law. A general authorization for the release of medical or other information is not sufficient for this purpose. Hospital accepts no responsibility if the information is made available to any other person, INCLUDING THE PATIENT. Interpretation Summary * Name: CYRUS BLACKWOOD Study Date: 01/31/2017 09:48 AM BP: 131/87 mmHg * Patient Location: .[facility]\S\N280\S\1 HR: 88 * : 1965 (M/d/yyyy) Gender: Female Height: 66 in * Age: 51 yrs Ethnicity: AA Weight: 280 lb * Ordering Physician: Haresh Jung * Referring Physician: Self, Referred * Performed By: Ana Laura Martinez RCS * * Reason For Study: CHEST PAIN * BSA: 2.3 m2 * -- Conclusions -- * Left ventricular systolic function is moderately reduced. * Grade I diastolic dysfunction, (abnormal relaxation pattern). * There is moderate mitral regurgitation. * Compared to a study performed several weeks ago, there is little change Procedure Details * Left Ventricle The left ventricle is normal in size. There is normal left ventricular wall thickness. Ejection Fraction = 40-45%. Left ventricular systolic function is moderately reduced. Grade I diastolic dysfunction, (abnormal relaxation pattern). * Right Ventricle The right ventricle is grossly normal size. The right ventricular systolic function is normal. * Atria The left atrial size is normal. Right atrial size is normal. * Mitral Valve The mitral valve leaflets appear thickened, but open well. The mitral regurgitant jet is eccentrically directed. There is moderate mitral regurgitation. * Tricuspid Valve The tricuspid valve is not well visualized, but is grossly normal. Significant tricuspid regurgitation is absent. * Aortic Valve The aortic valve is normal in structure and function. No hemodynamically significant valvular aortic stenosis. No aortic regurgitation is present. * Great Vessels The aortic root and proximal ascending aorta are normal sized. * Pericardium/Pleural There is no pericardial effusion. * * MMode 2D Measurements and Calculations * IVSd 0.93 cm * IVSs 1.4 cm * * LVIDd 5.7 cm * LVIDs 4.4 cm * LVPWd 0.95 cm * LVPWs 1.6 cm * * IVS/LVPW 0.98 * FS 22.4 % * EDV(Teich) 160.9 ml * ESV(Teich) 89.2 ml * EF(Teich) 44.5 % * * EDV(cubed) 186.4 ml * ESV(cubed) 87.1 ml * EF(cubed) 53.3 % * % IVS thick 51.4 % * % LVPW thick 65.8 % * * LV mass(C)d 210.2 grams * LV mass(C)dI 91.1 grams/m\S\2 * LV mass(C)s 268.3 grams * LV mass(C)sI 116.3 grams/m\S\2 * * CO(Teich) 5.6 l/min * CI(Teich) 2.4 l/min/m\S\2 * SV(Teich) 71.6 ml * SI(Teich) 31.0 ml/m\S\2 * CO(cubed) 7.7 l/min * CI(cubed) 3.4 l/min/m\S\2 * SV(cubed) 99.3 ml * SI(cubed) 43.0 ml/m\S\2 * * ACS 1.6 cm * LA dimension 3.8 cm * * asc Aorta Diam 3.2 cm * * LVAd ap4 35.3 cm\S\2 * LVLd ap4 8.4 cm * EDV(MOD-sp4) 124.0 ml * LVAs ap4 25.0 cm\S\2 * LVLs ap4 7.8 cm * ESV(MOD-sp4) 67.0 ml * EF(MOD-sp4) 46.0 % * * LVAd ap2 34.1 cm\S\2 * LVLd ap2 9.1 cm * EDV(MOD-sp2) 108.0 ml * LVAs ap2 24.2 cm\S\2 * LVLs ap2 7.9 cm * ESV(MOD-sp2) 64.0 ml * EF(MOD-sp2) 40.7 % * * CO(MOD-sp4) 4.4 l/min * CI(MOD-sp4) 1.9 l/min/m\S\2 * SV(MOD-sp4) 57.0 ml * SI(MOD-sp4) 24.7 ml/m\S\2 * * CO(MOD-sp2) 3.4 l/min * CI(MOD-sp2) 1.5 l/min/m\S\2 * SV(MOD-sp2) 44.0 ml * SI(MOD-sp2) 19.1 ml/m\S\2 * * * Doppler Measurements and Calculations * MV E max shaq 82.4 cm/sec * MV A max shaq 97.7 cm/sec * * MV E/A 0.84 * * MV P1/2t max shaq 96.4 cm/sec * MV P1/2t 91.9 msec * MVA(P1/2t) 2.4 cm\S\2 * MV dec slope 307.1 cm/sec\S\2 * MV dec time 0.31 sec * * Ao V2 max 136.4 cm/sec * Ao max PG 7.4 mmHg * Ao max PG (full) 4.5 mmHg * * LV V1 max PG 3.0 mmHg * * LV V1 max 85.9 cm/sec * * MR max shaq 501.0 cm/sec * MR max PG 100.4 mmHg * * PA V2 max 92.3 cm/sec * PA max PG 3.4 mmHg * * PI max shaq 169.0 cm/sec * PI max PG 11.5 mmHg * PI dec slope 166.4 cm/sec\S\2 * PI P1/2t 297.4 msec * * * * *
--- NOTE | 2017-01-31 14:32 | CARDIOLOGY CONSULTATION ---
DATE OF CONSULTATION: 01/31/2017 REFERRING PHYSICIAN: Dr. Haresh Jung. CHIEF COMPLAINT: Chest pain. HISTORY OF PRESENT ILLNESS: Ms. Deb Islas is a 51-year-old woman with a history of coronary artery disease, who presented to [facility] after experiencing acute onset of left-sided chest pain. The patient states that she was resting when she was awoken by severe sudden sharp pain in the precordial area. This pain radiated through to the back and the left shoulder and eventually generalized to include the left side of her chest and some left arm numbness. She describes a numbness in her left arm and is feeling as if her left arm fell asleep. At that point, she took 1 nitroglycerin with some relief in her symptoms. The pain later returned, however and was more severe. The symptoms were similar in nature and did not respond to 2 sublingual nitroglycerins. At that point, she call 911 and was administered additional nitroglycerin en route without relief of her symptoms. In the Emergency Room of [facility], she was likely administered some analgesics with some improvement in her discomfort. She did have some associated mild dyspnea. The patient states that these symptoms are not characteristic of chest pain she experienced over the past several years and in fact, she was admitted to [facility] in late October with similar symptoms. She states that her current symptoms are more severe, but somewhat similar in character. Generally speaking, she does not have exertional chest pain. She does have an element of exertional dyspnea and reports having some mild shortness of breath when ascending a hill back to her house from the store. This has perhaps been progressive over the past few months. She does not have orthopnea, but does not lay flat on her back due to back pain. She tends to sleep on her left side. She does not generally weak up in the middle of the night with breathing difficulties. She does apparently snore at nighttime and has some date times somnolence. Generally speaking, she is an active individual and was able to ambulate with some limitations due to what she describes as asthma. She does not have exertional chest pain. She denies common dizziness or lightheadedness, but on occasion will have episodes with changes in position. She has not recently suffered a syncopal episode. She is not aware of any current palpitations. PAST MEDICAL HISTORY: Significant for, 1. Coronary artery disease. According to the patient, she had percutaneous intervention in 2007 involving the left circumflex. Her records suggest that this was performed in 2011. The patient has had multiple episodes of chest discomfort, eventually evaluated with coronary angiography in 2014. This demonstrated widely patent left complex and stents as well as no obstructive disease in the main coronary arteries. The patient also underwent stress echocardiography in October of this year, which did not demonstrate any evidence of inducible ischemia. 2. Asthma. 3. Congestive heart failure. The patient was noted on echocardiography in October 2016 to have ejection fraction of 40%-45%. 4. Hyperlipidemia. 5. Hypertension. 6. Lumbar radiculopathy. 7. Migraine. 8. Posttraumatic stress disorder. 9. Transient ischemic attack. 10. History of urinary incontinent. 11. Diabetes. PAST SURGICAL HISTORY: Significant for a left knee surgery secondary to traumatic injury. FAMILY HISTORY: Significant for diabetes and premature coronary artery disease in her father, who at age 52. SOCIAL HISTORY: The patient currently lives alone. She does continue to smoke cigarettes. She has occasional alcohol use and has a history of illicit drugs use. OUTPATIENT MEDICATIONS: Include amlodipine, aspirin, atorvastatin, insulin, divalproex, Dulera, gabapentin, isosorbide mononitrate, metformin, metoprolol, omeprazole, paroxetine, ranitidine, tizanidine and a variety of inhalers for asthma. MEDICAL ALLERGIES: No known medical allergies. REVIEW OF SYSTEMS: A complete 10-system review of systems was performed and the pertinent positives are noted in the history of present illness. The remainder of the review of systems was negative with the swallowing notes. The patient's current chest pain appears to have a positional element as well. She feels better lying on her left side and less comfortable lying on her right side. Very minimal change with deep inspiration. She has occasional headaches. She has occasional indigestion, which appears to be well controlled with her current medical regimen. She denies any recent nausea or vomiting. She has not had any change in her bowel or bladder habits. She has occasional swelling in her lower extremities, which appears to have resolved recently. PHYSICAL EXAMINATION: GENERAL: She was alert and oriented. Mood and affect appeared normal. She answered all questions appropriately. VITAL SIGNS: Include blood pressure 122/61 with pulse of 73. HEENT: Sclerae are anicteric. Pupils are equal and reactive to light and accommodation. Extraocular movements were intact. NECK: Palpation of submandibular region did not reveal any significant lymphadenopathy. The carotids were palpable bilaterally. There were no bruits on auscultation. I did not appreciate jugular venous distention, although the neck tissues are somewhat redundant. There is no thyromegaly. LUNGS: Auscultation of both lungs revealed the absence of rales, but she did have some very mild expiratory wheezing. She had normal respiratory effort, however, without use of accessory muscles. CARDIAC EXAMINATION: Revealed her to be in a regular rhythm. I did not appreciate any murmurs on exam. S1 and S2 appeared to be normal. The PMI was not markedly displaced on palpation. There was no reproduction of her pain with palpation in the sternum. ABDOMEN: Soft and nontender. EXTREMITIES: Evaluation both wrists revealed radial pulses that were equal in intensity. There is no evidence of cyanosis or clubbing. Evaluation of lower extremities did not reveal any significant peripheral edema. I do not appreciate any rashes on exam today. LABORATORY STUDIES: Include a sodium of 139, potassium of 4.0, BUN was 18, and creatinine was 0.9. Liver function tests were normal. Serial cardiac biomarkers were all less than detectable limit. White cell count of 8.5, hemoglobin was 12.4, and platelet count was 244. Single view chest x-ray was obtained at the time of admission, which did not reveal any evidence of acute cardiopulmonary disease. There is no evidence of pulmonary edema. I reviewed the results of her stress echocardiography performed on 11/22/2016. I reviewed an echocardiogram that was performed today, revealing mildly reduced left ventricular systolic function and an element of mitral regurgitation. ASSESSMENT AND PLAN: 1. Noncardiac chest pain: While the patient does have a history of coronary artery disease, her symptoms are somewhat atypical and they began at rest and were fairly extended in duration. The character was somewhat atypical for cardiac ischemia and despite an extended episode, there was no elevation in cardiac biomarkers. She has had similar symptoms over the years. This is a fairly chronic complaint and noninvasive and invasive testing had both suggested this as a noncardiac origin. At this point, I would not advocate any additional testing for recurrent symptoms. 2. Coronary artery disease. Given her history of coronary artery disease, she is on a good medical regimen for secondary prevention to include aspirin and atorvastatin. No current symptoms to suggest angina or coronary ischemia, i.e. no symptoms with exertion. 3. Nonischemic cardiomyopathy. The patient likely has a nonischemic etiology for reduced left ventricular systolic function. She had good augmentation of all ivey with dobutamine infusion, but no associated chest pain and coronary angiography was previously negative. She is on a beta irene and would benefit with being on an VINICIUS inhibitor as well. I think discontinuation of her amlodipine in favor of lisinopril would be a good start. At this point, she does not appear to have significant pulmonary vascular congestion and likely has not required diuretic therapy. FINAL RECOMMENDATIONS: 1. No additional cardiac testing at this time. 2. Continuation of beta irene, aspirin and atorvastatin. 3. Discontinue amlodipine and start lisinopril, perhaps 10 mg daily with followup for increasing titration in the cardiology clinic. MTDD
[2017-01-31 14:54] LABS: CKMB/CK RATIO 0.7 (0-3.0)
[2017-01-31] MEDS ORDERED: LSN5 PO (15:01)
--- NOTE | 2017-01-31 15:06 | Discharge Instructions ---
Discharge Instructions Date of Service Jan 31, 2017. Admission Reason for Admission: Chest Pain Radiating To Arm, [facility] Discharge Discharge Diagnosis / Problem: Angina Discharge Goals Goal(s): Decrease discomfort, Learn about illness, Diagnostic testing, Prevent Disease Progression Activity Recommendations Activity Limitations: resume your previous activity . Instructions / Follow-Up Instructions / Follow-Up New/changed medications: 1. Stop Amlodipine (Norvasc) 2. Start Lisinopril 10 mg by mouth daily This medication is used to treat hypertension (high blood pressure) This medication change was recommended by cardiology. The prescription has been sent to you pharmacy Resume all other regular home medications Please follow-up with your PCP within 5-7 days Please follow-up with Cardiology as instructed by them Please follow-up/keep all of your subspecialty appointments Current Hospital Diet Patient's current hospital diet: AHA Diet (Heart Healthy) Discharge Diet Recommended Diet: AHA Diet (Heart Healthy), Diabetes Type 2 Diet Procedures Procedures Performed: 1. Chest x-ray Pending Studies Studies pending at discharge: no Laboratory Results Hemoglobin A1c Test 11/22/16 06:55 Range/Units Estimated Average Glucose 160 mg/dl Hemoglobin A1c 7.2 H 4.5-5.6 % Medical Emergencies . Who to Call and When: Medical Emergencies: If at any time you feel your situation is an emergency, please call 911 immediately. . Non-Emergent Contact Non-Emergency issues call your: Primary Care Provider . . "Provider Documentation" section prepared by Antoinette Land. VTE Core Measure Inpt VTE Proph given/why not?: SCD's
--- NOTE | 2017-01-31 15:12 | Discharge Summary ---
Discharge Summary Date of Service Jan 31, 2017. Discharge Summary Admission Date: Jan 30, 2017 at 22:17 Discharge Date: Jan 31, 2017 Discharge Disposition: Home Principal Diagnosis: Angina Problems/Secondary Diagnoses: 1. Unstable angina/CAD s/p left circumflex distal vessel stenting remotely, widely patent coronaries at cath 2015: 2. HTN 3. T2DM 4. GERD 5. Hypercholesterolemia 6. Cerebrovascular disease/history of ischemic CVA of frontal lobe/history of IV TPA use in the emergency department 7. Asthma 8. Peripheral neuropathy 9. Depression 10. History of tobacco abuse Immunizations: Have You Had Influenza Vaccine: Yes Influenza Vaccine Date: Aug 17, 2016 History of Tetanus Vaccine?: No History of Pneumococcal: Yes Pneumococcal Date: Sep 07, 2015 History of Hepatitis B Vaccine: No Procedures: CHEST ONE VIEW PORTABLE CLINICAL HISTORY: EVALUATE WEAKNESS mental status change COMPARISON STUDY: 12/14/2016 FINDINGS: The bones soft tissues and hemidiaphragms are normal. The cardiomediastinal silhouette is normal. The lungs are clear. The pulmonary vasculature is normal. IMPRESSION: Negative chest. Electronically signed by: Tl Grullon M.D. 01/30/2017 4:45 PM Dictated Date/Time: 01/30/2017 4:43 PM The status of this report is Signed. Draft = Not yet reviewed or approved by Radiologist. Signed = Reviewed and approved by Radiologist. ECHOCARDIOGRAM: Interpretation Summary * Name: CYRUS BLACKWOOD Study Date: 01/31/2017 09:48 AM BP: 131/87 mmHg * Patient Location: [facility]\\80\S\1 HR: 88 * : 1965 (M/d/yyyy) Gender: Female Height: 66 in * Age: 51 yrs Ethnicity: AA Weight: 280 lb * Ordering Physician: Haresh Jung * Referring Physician: Self, Referred * Performed By: Ana Laura Martinez RCS * * Reason For Study: CHEST PAIN * BSA: 2.3 m2 * -- Conclusions -- * Left ventricular systolic function is moderately reduced. * Grade I diastolic dysfunction, (abnormal relaxation pattern). * There is moderate mitral regurgitation. * Compared to a study performed several weeks ago, there is little change Procedure Details * Left Ventricle The left ventricle is normal in size. There is normal left ventricular wall thickness. Ejection Fraction = 40-45%. Left ventricular systolic function is moderately reduced. Grade I diastolic dysfunction, (abnormal relaxation pattern). * Right Ventricle The right ventricle is grossly normal size. The right ventricular systolic function is normal. * Atria The left atrial size is normal. Right atrial size is normal. * Mitral Valve The mitral valve leaflets appear thickened, but open well. The mitral regurgitant jet is eccentrically directed. There is moderate mitral regurgitation. * Tricuspid Valve The tricuspid valve is not well visualized, but is grossly normal. Significant tricuspid regurgitation is absent. * Aortic Valve The aortic valve is normal in structure and function. No hemodynamically significant valvular aortic stenosis. No aortic regurgitation is present. * Great Vessels The aortic root and proximal ascending aorta are normal sized. * Pericardium/Pleural There is no pericardial effusion. * * MMode 2D Measurements and Calculations * IVSd 0.93 cm * IVSs 1.4 cm * * LVIDd 5.7 cm * LVIDs 4.4 cm * LVPWd 0.95 cm * LVPWs 1.6 cm * * IVS/LVPW 0.98 * FS 22.4 % * EDV(Teich) 160.9 ml * ESV(Teich) 89.2 ml * EF(Teich) 44.5 % * * EDV(cubed) 186.4 ml * ESV(cubed) 87.1 ml * EF(cubed) 53.3 % * % IVS thick 51.4 % * % LVPW thick 65.8 % * * LV mass(C)d 210.2 grams * LV mass(C)dI 91.1 grams/m\S\2 * LV mass(C)s 268.3 grams * LV mass(C)sI 116.3 grams/m\S\2 * * CO(Teich) 5.6 l/min * CI(Teich) 2.4 l/min/m\S\2 * SV(Teich) 71.6 ml * SI(Teich) 31.0 ml/m\S\2 * CO(cubed) 7.7 l/min * CI(cubed) 3.4 l/min/m\S\2 * SV(cubed) 99.3 ml * SI(cubed) 43.0 ml/m\S\2 * * ACS 1.6 cm * LA dimension 3.8 cm * * asc Aorta Diam 3.2 cm * * LVAd ap4 35.3 cm\S\2 * LVLd ap4 8.4 cm * EDV(MOD-sp4) 124.0 ml * LVAs ap4 25.0 cm\S\2 * LVLs ap4 7.8 cm * ESV(MOD-sp4) 67.0 ml * EF(MOD-sp4) 46.0 % * * LVAd ap2 34.1 cm\S\2 * LVLd ap2 9.1 cm * EDV(MOD-sp2) 108.0 ml * LVAs ap2 24.2 cm\S\2 * LVLs ap2 7.9 cm * ESV(MOD-sp2) 64.0 ml * EF(MOD-sp2) 40.7 % * * CO(MOD-sp4) 4.4 l/min * CI(MOD-sp4) 1.9 l/min/m\S\2 * SV(MOD-sp4) 57.0 ml * SI(MOD-sp4) 24.7 ml/m\S\2 * * CO(MOD-sp2) 3.4 l/min * CI(MOD-sp2) 1.5 l/min/m\S\2 * SV(MOD-sp2) 44.0 ml * SI(MOD-sp2) 19.1 ml/m\S\2 * * * Doppler Measurements and Calculations * MV E max shaq 82.4 cm/sec * MV A max shaq 97.7 cm/sec * * MV E/A 0.84 * * MV P1/2t max shaq 96.4 cm/sec * MV P1/2t 91.9 msec * MVA(P1/2t) 2.4 cm\S\2 * MV dec slope 307.1 cm/sec\S\2 * MV dec time 0.31 sec * * Ao V2 max 136.4 cm/sec * Ao max PG 7.4 mmHg * Ao max PG (full) 4.5 mmHg * * LV V1 max PG 3.0 mmHg * * LV V1 max 85.9 cm/sec * * MR max shaq 501.0 cm/sec * MR max PG 100.4 mmHg * * PA V2 max 92.3 cm/sec * PA max PG 3.4 mmHg * * PI max shaq 169.0 cm/sec * PI max PG 11.5 mmHg * PI dec slope 166.4 cm/sec\S\2 * PI P1/2t 297.4 msec * * * * * Consultations: Cardiology- Dr. Dominguez Medication Reconciliation New Medications: Lisinopril (Lisinopril) 5 Mg Tab 10 MG PO DAILY for 30 Days, #60 TABS Continued Medications: Acetaminophen/Hydrocodone (Hydrocodone/Acetaminophen 5-325 mg) 1 Ea Tab 1 TAB PO Q6H PRN for Pain Albuterol Hfa (Ventolin Hfa) 200 Puffs/84968 Mcg Aers 2 PUFFS INH Q4-6H PRN for Shortness of Breath Aspirin (Aspirin Ec) 81 Mg Tab 81 MG PO DAILY Atorvastatin (Atorvastatin Calcium) 40 Mg Tab 40 MG PO HS Gabapentin (Gabapentin) 300 Mg Cap 300 MG PO Q12 Ipratropium-Albuterol (Duoneb) 3 Ml Nebu 1 TREATMENT INH Q6H PRN for Shortness of Breath, INHA Isosorbide Mononitrate (Isosorbide Mononitrate ER) 60 Mg Tabcr 60 MG PO DAILY Metformin Hcl (Glucophage) 500 Mg Tab 1000 MG PO QAM, TAB TAKE THIS MEDICATION WITH FOOD Metformin HCl (Metformin HCl) 500 Mg Tab 500 MG PO HS TAKE THIS MEDICATION WITH FOOD Metoprolol Tartrate (Lopressor) (Lopressor) 25 Mg Tab 25 MG PO BID, TAB Mometasone Furoate-Formoterol (Dulera 200/5 Mcg) 1 Aer Aer 2 PUFFS INH BID Nicotine (Sm Nicotine Transdermal S) 21 Mg/24 Hr Dis 1 PATCH TOP DAILY Nitroglycerin (Nitrostat) 0.4 Mg Tab 0.4 MG UT UD PRN for Chest Pain, BTL PLACE ONE TABLET UNDER THE TONGUE IF NEEDED FOR CHEST PAIN Omeprazole (Prilosec) 40 Mg Cap 40 MG PO DAILY TAKE THIS MEDICATION ONCE DAILY 30 MINUTES BEFORE BREAKFAST Paroxetine (Paroxetine HCl) 40 Mg Tab 40 MG PO DAILY Promethazine (Phenergan ) 12.5 Mg Tab 12.5 MG PO Q12 PRN for Migraine, TAB Ranitidine HCl (Ranitidine HCl) 150 Mg Tab 150 MG PO HS Discontinued Medications: Amlodipine Besylate (Amlodipine Besylate) 5 Mg Tab 5 MG PO DAILY Discharge Exam Review of Systems: Constitutional: No chills, No fatigue, No fever, No sweats, No weakness Respiratory: + shortness of breath, No cough, No hemoptysis Cardiovascular: + chest pain, No edema, No palpitations Abdomen: No constipation, No diarrhea, No nausea, No pain, No vomiting Musculoskeletal: No calf pain, No joint pain, No muscle pain, No swelling Genitourinary - Female: No dysuria, No hematuria Neurologic: No numbness/tingling, No weakness Psychiatric: No anxiety, No depression symptoms Hematologic / Lymphatic: No abnormal bleeding/bruising Integumentary: No itch, No new/changing skin lesions, No rash Physical Exam: General Appearance: no apparent distress, + obese Eyes: normal inspection, PERRL ENT: hearing grossly normal Neck: supple Respiratory/Chest: no respiratory distress, no accessory muscle use, + rhonchi (throughout all lung mohr), + wheezing (slight wheezing throughout all lung mohr ) Cardiovascular: regular rate, rhythm Abdomen / GI: normal bowel sounds, non tender, soft Extremities: no calf tenderness, no pedal edema Neurologic/Psychiatric: alert, normal mood/affect, oriented x 3 Skin: normal color, warm/dry, no rash Hospital Course The patient is a 51-year-old female who presents emergency department complaining of sudden onset of left-sided chest pain radiating toward her left arm that began just prior to arrival. This began while she was walking. She did have some milder episodes of discomfort the previous 2 days that did resolve with 1 sublingual nitroglycerin, but when the discomfort of today did not resolve with 2 sublingual nitroglycerins, she became concerned and thus is in the emergency department for assessment. She does have a history of coronary artery disease and coronary artery stents having been placed. Her last stress test in October 2016 was normal. Unstable angina/CAD s/p left circumflex distal vessel stenting remotely, widely patent coronaries at cath 2015: - Admit to tele observation for cardiac monitoring- NSR - Trend cardiac enzymes- negative - EKG- no significant changes - Continue Amlodipine 5 mg daily, ASA 81 mg daily, Isosorbide mononitrate ER 60 mg daily, Metoprolol tartrate 25 mg BID - Nitropaste q6 hrs - ECHO- Left ventricular systolic function is moderately reduced. Grade I diastolic dysfunction, (abnormal relaxation pattern). There is moderate mitral regurgitation. Compared to a study performed several weeks ago, there is little change - Consult cardiology, appreciate recommendations -- No further cardiac workup at this time HTN: - Norvasc 5 mg PO daily changed to Lisinopril 10 mg daily as per cardiology recommendations T2DM: - Hold Metformin 1000 mg QAM and 500 mg HS - resume at discharge - BSG ACHS w/ sliding insulin scale - ha1c of 7.2 on 11/22- diabetic eduction GERD: Change Omeprazole 40 mg daily to Pantoprazole 40 mg daily, and continue Ranitidine 150 mg HS Hypercholesterolemia: - Continue Atorvastatin 40 mg HS - Lipid panel 12/27- triglycerides 166, total cholesterol 176, LDL 104, HDL 39 Cerebrovascular disease/history of ischemic CVA of frontal lobe/history of IV TPA use in the emergency department--no symptoms at this time. Asthma: - Changed to Dulera 200/5, which is nonformulary, Symbicort 160/4.5, 2 puffs BID - DuoNebs q4 hrs PRN Peripheral neuropathy: Continue Gabapentin 300 mg BID Depression: Continue Peroxin 1540 mg daily History of tobacco abuse: Continue Transderm nicotine patch GI Prophylaxis: Maalox PRN, IV Zofran PRN, Colace and/or Milk of Mag PRN DVT prophylaxis: HILDA and SCDs, ambulation Code Status: LEVEL I, FULL Dispo: Discharge to home Total Time Spent: Greater than 30 minutes This includes examination of the patient, discharge planning, medication reconciliation, and communication with other providers. Discharge Instructions Please refer to the electronic Patient Visit Report (Discharge Instructions) for additional information. Follow-Up Please follow-up with your PCP within 5-7 days Please follow-up with Cardiology as instructed by them Please follow-up/keep all of your subspecialty appointments Additional Copies To [facility].
[2017-01-31 15:14] VITALS: BP 110/70; PULSE 81; TEMP 36.7; O2SAT 95
[2017-01-31 17:30] VITALS: BP 110/70; PULSE 81; TEMP 36.7; O2SAT 95
[2017-01-31] MEDS ORDERED: ATORVASTATIN 40 MG TAB PO SCH (21:00)
[2017-01-31] MEDS ORDERED: RANITIDINE HCL 150 MG TAB PO SCH (21:00)
[2017-02-01] MEDS ORDERED: LISINOPRIL 10 MG TAB PO SCH (09:00)
== END 2017-01-31 17:53 | disposition home or self-care (01) ==
LOC: ENRESERVDT → ENRESERVTM → EDBD 16:13 → C.EDC 16:15 → C.MED 22:17
PROVIDERS: ADMIT Hospitalist; ATTEND Hospitalist
DX: I20.0 Unstable angina (principal); I25.10 Atherosclerotic heart disease of native coronary artery without angina pectoris; Z95.5 Presence of coronary angioplasty implant and graft; I10 Essential (primary) hypertension; E11.9 Type 2 diabetes mellitus without complications; K21.9 Gastro-esophageal reflux disease without esophagitis; E78.00 Pure hypercholesterolemia, unspecified; Z86.73 Personal history of transient ischemic attack (TIA), and cerebral infarction without residual deficits; J45.909 Unspecified asthma, uncomplicated; G62.9 Polyneuropathy, unspecified; Z87.891 Personal history of nicotine dependence; Z83.3 Family history of diabetes mellitus; Z82.49 Family history of ischemic heart disease and other diseases of the circulatory system; F17.200 Nicotine dependence, unspecified, uncomplicated

== ENCOUNTER 2017-05-04 01:14 | Emergency (ER) | payer OTHER ==
[~2017-05-04] VITALS: Ht 167.6 cm; Wt 119.3 kg
[~2017-05-04 01:14] MED LIST changes: -GABA1CAP4 PO; -GLC/500 PO; -GLC500 PO; -HYDR-4313 PO; +LSN5 PO; -NRV/5 PO; -PRX/40 PO; -ZNF/4 PO
[2017-05-04 01:21] VITALS: TEMP 36.6; Ht 167.6 cm; Wt 119.3 kg
[2017-05-04] MEDS ORDERED: ONDANSETRON INJ 2 MG/ML 2 ML VIAL IV STA (01:24)
[2017-05-04] MEDS ORDERED: MoRPHine SULFATE 4 MG/ML 1 ML CARP IV STA (01:24)
[2017-05-04 02:37] LABS: ALKALINE PHOSPHATASE 109 U/L (45-117); ALT/SGPT 30 U/L (12-78); BLOOD UREA NITROGEN 19 mg/dl (7-18); BUN/CREATININE RATIO 20.5 (10-20); CALCIUM 9.4 mg/dl (8.5-10.1); CARBON DIOXIDE 27 mmol/L (21-32); CHLORIDE 106 mmol/L (98-107); CREATININE 0.91 mg/dl (0.60-1.20); GLUCOSE 123 mg/dl (70-99); SODIUM 139 mmol/L (136-145)
[2017-05-04 02:49] VITALS: PULSE 96
[2017-05-04] MEDS ORDERED: LISI-729 PO (02:56)
[2017-05-04] MEDS ORDERED: MELO15TA4 PO (02:58)
[2017-05-04] MEDS ORDERED: KETOROLAC TROMETHAMINE 30 MG/ML VIAL IV STA (03:01)
[2017-05-04 03:52] LABS: BASO % 0.1 %; BASO ABS # 0.01 K/uL (0-0.2); COMPLETE YES; HEMATOCRIT 43.1 % (37-47); IG% 0.1 %; LYMPH % 45.3 %; LYMPH ABS # 4.07 K/uL (1.2-3.4); MEAN CELL VOLUME 93.9 fL (80-100); MEAN CORPUSCULAR HEMOGLOBIN 30.5 pg (25-34); MEAN CORPUSCULAR HGB CONC 32.5 g/dl (32-36); MEAN PLATELET VOLUME 11.6 fL (7.4-10.4); MONO % 6.9 %; NEUT % 45.6 %; PLATELET COUNT 231 K/uL (130-400); RED BLOOD COUNT 4.59 M/uL (4.2-5.4); WHITE BLOOD COUNT 8.99 K/uL (4.8-10.8)
[2017-05-04 04:00] LABS: POTASSIUM 4.3 mmol/L (3.5-5.1)
[2017-05-04 04:06] LABS: AST/SGOT 18 U/L (15-37)
--- NOTE | 2017-05-04 04:14 | EMERGENCY ROOM VISIT NOTE ---
History First contact with patient: 01:21 Chief Complaint: CHEST PAIN Stated Complaint: BACK PAIN,CHEST PAIN Nursing Triage Summary: Patient reports that chest pain began 3 days ago, then patient had a fall today , landing on her back. Patient states that her back pain is much worse than her chest pain. Denies recent travel, denies SOB History of Present Illness The patient is a 51 year old female who presents to the Emergency Room with complaints of left-sided chest pain described as discomfort, ranging in severity currently 8 out of 10. Nothing makes it better or worse. Patient has traveled to [place] recently. No shortness of breath. She does smoke. Prior heart disease. Patient states today she slipped and fell striking her tailbone and her left knee. She's had prior knee surgery and fracture to her coccyx. Patient describes that pain as aching, ranging in severity 7 out of 10 worse with movement and better with rest. Patient denies headache, head injury, neck pain, upper back pain, mid back pain, low back pain, numbness, tingling, loss of bowel or bladder control, abdominal pain, diaphoresis, dyspnea. She is tolerate by mouth fluids and food. Review of Systems See HPI for pertinent positives & negatives. A total of 10 systems reviewed and were otherwise negative. Past Medical/Surgical History Medical Problems: (1) Acute coronary syndrome (2) Acute CVA (cerebrovascular accident) (3) Acute postoperative pain of right foot (4) Anxiety State Nos (5) Asthma exacerbation (6) Asthma, Unspecified (7) Asthmatic bronchitis (8) CAD (coronary artery disease) (9) Chest pain (10) Chest pain radiating to arm (11) Depressive Disorder Nec (12) Diab Estrellita Wo Compl, Type Ii Or Unspec Type, Not Uncntrld (13) Diabetes (14) KLINE (dyspnea on exertion) (15) Exacerbation of chronic back pain (16) Exacerbation of chronic back pain (17) Fall (18) Hyperlipidemia Nec/Nos (19) Hypertension Nos (20) Ischemic cerebrovascular accident (CVA) of frontal lobe (21) Left elbow pain (22) Lower back pain (23) Lumbar Disc Displacement (24) Lumbosacral Neuritis Nos (25) Migraine (26) Non-hemorrhagic cerebrovascular accident (27) Osteoarthros Nos-Unspec (28) Posttraumatic Stress Disorder (29) Precordial chest pain (30) Received intravenous tissue plasminogen activator (t-PA) in emergency department (31) Unstable angina Surgical Problems: (1) Stented coronary artery Family History Diabetes mellitus Heart disease Hypertension Social History Smoking Status: Current Every Day Smoker Alcohol Use: none Drug Use: none Marital Status: in relationship Housing Status: lives with family Occupation Status: unemployed Current/Historical Medications Scheduled Aspirin (Aspirin Ec), 81 MG PO DAILY Atorvastatin (Atorvastatin Calcium), 40 MG PO HS Isosorbide Mononitrate (Isosorbide Mononitrate ER), 60 MG PO DAILY Lisinopril (Zestril), 10 MG PO DAILY Meloxicam (Mobic), 15 MG PO DAILY Metoprolol Tartrate (Lopressor) (Lopressor), 25 MG PO BID Mometasone Furoate-Formoterol (Dulera 200/5 Mcg), 2 PUFFS INH BID Nicotine (Sm Nicotine Transdermal S), 1 PATCH TOP DAILY Omeprazole (Prilosec), 40 MG PO DAILY Ranitidine HCl (Ranitidine HCl), 150 MG PO HS Scheduled PRN Albuterol Hfa (Ventolin Hfa), 2 PUFFS INH Q4-6H PRN for Shortness of Breath Ipratropium-Albuterol (Duoneb), 1 TREATMENT INH Q6H PRN for Shortness of Breath Nitroglycerin (Nitrostat), 0.4 MG UT UD PRN for Chest Pain Promethazine (Phenergan ), 12.5 MG PO Q12 PRN for Migraine Allergies Coded Allergies: No Known Allergies (Unverified , 01/30/17) Physical Exam Vital Signs Date Time Temp Pulse Resp B/P (MAP) Pulse Ox O2 Delivery O2 Flow Rate FiO2 05/04/17 02:49 96 24 150/102 98 Room Air 05/04/17 01:40 Room Air 05/04/17 01:37 103 05/04/17 01:25 98 Room Air 05/04/17 01:21 36.6 82 20 122/93 98 Room Air Physical Exam PHYSICAL EXAM: VITALS: Vitals are noted on the nurse's note and reviewed by myself. Vital signs stable. GENERAL: pleasant female, in no acute distress, nondiaphoretic, well-developed well-nourished. SKIN: The skin was without obvious lacerations or abrasions. Capillary reflex less than 2 seconds. HEAD: Normocephalic atraumatic. EARS: External auditory canals clear, tympanic membranes pearly brennan without erythema or effusion bilaterally. No hemotympanums. No hatch sign. No mastoid tenderness. EYES: Pupils equal round and reactive to light and accommodation. Conjunctivae without injection, sclerae without icterus. Extraocular movements intact. NOSE: Patent, turbinates without inflammation or discharge. MOUTH: Mucous membranes moist. Pharynx without erythema or exudate. Uvula midline. Airway patent. Tongue does not deviate. NECK: Supple without nuchal rigidity. Cervical spine is nontender. Full range of motion of the neck without tenderness. No JVD. HEART: Regular rate and rhythm without murmurs gallops or rubs. LUNGS: Clear to auscultation bilaterally without wheezes, rales or rhonchi. No dullness to percussion. No retractions or accessory muscle use. No chest wall tenderness. ABDOMEN: Positive bowel sounds x 4. Normal tympanic percussion. Soft, nontender, without masses or organomegaly. No guarding or rebound tenderness. MUSCULOSKELETAL: No tenderness of the thoracic or lumbar spine. sacrum TTP left knee tender to palpation with increased pain with range of motion Full range of motion without tenderness to palpation in all other extremities. Normal gait. Strength 5/5 throughout. Peripheral pulses 2+. NEURO: Patient was alert and oriented to person place and time. Normal Mini- Mental status exam. Normal sensation to light and sharp touch. Negative Romberg and pronator drift. Cerebellar function intact. No focal neurological deficits. Medical Decision & Procedures Laboratory Results 05/04/17 02:40 Red Blood Count 4.59, Mean Corpuscular Volume 93.9, Mean Corpuscular Hemoglobin 30.5, Mean Corpuscular Hemoglobin Concent 32.5, Mean Platelet Volume 11.6, Neutrophils (%) (Auto) 45.6, Lymphocytes (%) (Auto) 45.3, Monocytes (%) (Auto) 6.9, Eosinophils (%) (Auto) 2.0, Basophils (%) (Auto) 0.1, Neutrophils # (Auto) 4.10, Lymphocytes # (Auto) 4.07, Monocytes # (Auto) 0.62, Eosinophils # (Auto) 0.18, Basophils # (Auto) 0.01 05/04/17 01:50 05/04/17 02:40 Test 05/04/17 01:50 05/04/17 02:40 05/04/17 03:55 Anion Gap 6.0 mmol/L (3-11) Est Creatinine Clear Calc Drug Dose 95.1 ml/min Estimated GFR () 84.1 Estimated GFR (Non- 72.5 BUN/Creatinine Ratio 20.5 (10-20) Calcium Level 9.4 mg/dl (8.5-10.1) Total Bilirubin 0.2 mg/dl (0.2-1) Alanine Aminotransferase (ALT/SGPT) 30 U/L (12-78) Alkaline Phosphatase 109 U/L (45-117) Troponin I < 0.015 ng/ml (0-0.045) Total Protein 7.3 gm/dl (6.4-8.2) Albumin 3.2 gm/dl (3.4-5.0) Lipase 328 U/L (73-393) White Blood Count 8.99 K/uL (4.8-10.8) Red Blood Count 4.59 M/uL (4.2-5.4) Hemoglobin 14.0 g/dL (12.0-16.0) Hematocrit 43.1 % (37-47) Mean Corpuscular Volume 93.9 fL (80-100) Mean Corpuscular Hemoglobin 30.5 pg (25-34) Mean Corpuscular Hemoglobin Concent 32.5 g/dl (32-36) Platelet Count 231 K/uL (130-400) Mean Platelet Volume 11.6 fL (7.4-10.4) Neutrophils (%) (Auto) 45.6 % Lymphocytes (%) (Auto) 45.3 % Monocytes (%) (Auto) 6.9 % Eosinophils (%) (Auto) 2.0 % Basophils (%) (Auto) 0.1 % Neutrophils # (Auto) 4.10 K/uL (1.4-6.5) Lymphocytes # (Auto) 4.07 K/uL (1.2-3.4) Monocytes # (Auto) 0.62 K/uL (0.11-0.59) Eosinophils # (Auto) 0.18 K/uL (0-0.5) Basophils # (Auto) 0.01 K/uL (0-0.2) RDW Standard Deviation 48.7 fL (36.4-46.3) RDW Coefficient of Variation 14.2 % (11.5-14.5) Immature Granulocyte % (Auto) 0.1 % Immature Granulocyte # (Auto) 0.01 K/uL (0.00-0.02) D-Dimer 290 ug/L FEU (0-500) Direct Bilirubin < 0.1 mg/dl (0-0.2) Aspartate Amino Transf (AST/SGOT) 18 U/L (15-37) Bedside Troponin I < 0.030 ng/ml (0-0.045) Medications Administered Medications (Trade) Dose Ordered Sig/Jaxon Route Start Time Stop Time Status Last Admin Dose Admin Morphine Sulfate (MoRPHine SULFATE INJ) 4 mg NOW STAT IV 05/04/17 01:24 05/04/17 01:28 DC 05/04/17 01:54 4 MG Ondansetron HCl (Zofran Inj) 4 mg NOW STAT IV 05/04/17 01:24 05/04/17 01:28 DC 05/04/17 01:54 4 MG Ketorolac Tromethamine (Toradol Inj) 30 mg NOW STAT IV 05/04/17 03:01 05/04/17 03:03 DC 05/04/17 03:07 30 MG ED Course Prior records/ancillary studies reviewed. Triage Nursing notes reviewed. Additional history obtained from family. The patient's history was concerning for chest pain, back pain and knee pain. Differential diagnosis: Etiologies such as cardiac ischemia, aortic dissection, pulmonary embolism, pneumonia, pneumothorax, musculoskeletal, infections, pericarditis, myocarditis , esophageal rupture, gastrointestinal, sprain, strain, fracture, dislocation as well as others were entertained. Physical examination: As above. ER treatment provided: morphine, zofran On reassessment the patient felt better. Diagnostic interpretation by me: The electrocardiogram was normal sinus, normal intervals, no acute ST-T wave changes, rate of 105. Impression sinus tachycardia interpreted by myself. Repeat EKG is unchanged. Prior EKGs were reviewed and is unchanged. The labs revealed negative troponin 2 that is 2 hours apart. Negative d-dimer Imaging studies: Chest x-ray with no acute consolidation, pneumothorax or free air per my interpretation Knee x-ray with hardware present without acute fracture Coccyx sacrum x-ray concerning for acute on chronic fracture I reviewed the patient's recent admission for cardiac workup and had an unchanged echo. Cardiac cath in 2015. Exam and history seem consistent with chest pain, knee injury and coccyx injury. Patient had unchanged EKG. 2 troponins that are negative 2 hours apart. She was well-appearing. Symptoms have been ongoing for several days now. She is advised to follow-up with family care in orthopedics in a few days or here in the ER sooner for chest pain, difficulty breathing, diaphoresis, worsening signs or symptoms or as needed. Patient had an echo a few months ago that was unchanged. By the evaluation outlined above emergent etiologies such as cardiac ischemia, aortic dissection, pulmonary embolism, pneumonia, pneumothorax, infections, pericarditis, myocarditis, gastrointestinal, as well as others were deemed relatively unlikely. The pt informed about the findings as listed above. All questions were answered and pleased with the treatment. Return instructions were outlined and the patient was discharged in stable condition. Outpatient prescription management: OxyIR Referral: The patient was referred back to orthopedics and primary care physician for follow-up in 2 to 3 days for a recheck of the current condition. Case reviewed with my attending Medical Decision As above [place] Drug Monitoring Program Search Results: patient reviewed within database, see additional documentation (no recent narcotics) Impression Primary Impression: Substernal precordial chest pain Additional Impressions: Left knee injury Fx sacrum/coccyx-closed Departure Information Dispostion Home / Self-Care Condition GOOD Referrals Del Bucio D.O.Int.Med. (PCP) Patient Instructions [facility] Additional Instructions Chest pain: Ibuprofen(Motrin, Advil) may be used for fever or pain. Use 600mg every six hours as needed. Take with food. Avoid using more than 2400mg in a 24 hour period. Do not use 2400mg per day for more than three consecutive days without physician direction. Prolonged inappropriate use can lead to stomach upset or ulcers. (AND/OR) Acetaminophen(Tylenol) may be used for fever or pain. Use 1000mg every six hours as needed. Avoid using more than 4000mg in a 24 hour period. Rest and drink plenty of fluids as tolerated. Continue current medications. Avoid strenuous activities and anything that worsens your pain. Resume normal activities once your symptoms resolve. Return to the ER immediately for worsening or persistent chest pain, abdominal pain, vomiting, fevers, chest pains, difficulty breathing, worsening of your condition, or as needed. Follow up with your primary physician in 2-3 days for a recheck of your current condition. Orthopedic injury: DO NOT drive, drink alcohol, operate machinery, or perform dangerous activities today. You were given medications in the ER that can affect your ability to safely function or operate a vehicle. Oxycodone (OxyIR) 5mg: Take 1-2 pills every four hours for breakthrough pain. Avoid alcohol, operating machinery or dangerous equipment, working on ladders or roofs, DRIVING, or situations where being under the influence may be dangerous. It is recommended to use an [id number] stool softener such as Colace, 100mg twice daily while taking this medication to avoid constipation. Ibuprofen(Motrin, Advil) may be used for fever or pain. Use 600mg every six hours as needed. Take with food. Avoid using more than 2400mg in a 24 hour period. Do not use 2400mg per day for more than three consecutive days without physician direction. Prolonged inappropriate use can lead to stomach upset or ulcers. This medication can be taken if you need to drive, work, or perform activities which may be dangerous when taking narcotic pain medication. (AND/OR) Acetaminophen(Tylenol) may be used for fever or pain. Use 1000mg every six hours as needed. Avoid using more than 3000mg in a 24 hour period. This medication can be taken if you need to drive, work, or perform activities which may be dangerous when taking narcotic pain medication. Ice compresses for 20 minutes at a time four times daily for 2-3 days. Use the crutches as instructed. Sit on doughnut for your tailbone injury. Take a stool softener. Do not strain when you go the bathroom. Rest and elevate your injury. Continue current medications. Return to the ER immediately for any numbness, tingling, severe pain, extreme swelling in the extremity or as needed. Call Orthopedics in 3-5 days if symptoms persist to arrange follow up for your injury. Problem Qualifiers Additional Impressions: Left knee injury Encounter type: initial encounter Qualified Codes: S89.92XA - Unspecified injury of left lower leg, initial encounter Fx sacrum/coccyx-closed Encounter type: initial encounter Qualified Codes: S32.10XA - Unspecified fracture of sacrum, initial encounter for closed fracture; S32.2XXA - Fracture of coccyx, initial encounter for closed fracture
[2017-05-04] MEDS ORDERED: OXYCODONE IR HOME PACK PO ONE (04:15)
[2017-05-04 04:30] VITALS: BP 150/100; O2SAT 95
--- NOTE | 2017-05-04 07:44 | DIAGNOSTIC IMAGING REPORT ---
SACRUM COCCYX MIN 2 VIEWS CLINICAL HISTORY: 51 years-old Female presenting with fall, pain. TECHNIQUE: Frontal and lateral views of the sacrum and coccyx were obtained. COMPARISON: 02/12/2016. FINDINGS: Degenerative changes of the lower lumbar spine noted. No gross evidence of disruption of the arcuate lines to suggest a sacral fracture. Sacroiliac joints congruent. Apparent widening of the sacrococcygeal joint, which measures 4 to 5 mm. Had a similar appearance on prior exam. Visualized osseous pelvis within normal limits. IMPRESSION: 1. No acute osseous injury of the sacrococcygeal region. Widening at the sacrococcygeal joint is chronic. Electronically signed by: Juanito Tsang M.D. 05/04/2017 7:42 AM Dictated Date/Time: 05/04/2017 7:39 AM
--- NOTE | 2017-05-04 08:03 | DIAGNOSTIC IMAGING REPORT ---
CHEST ONE VIEW PORTABLE CLINICAL HISTORY: 51 years-old Female presenting with CHEST PAIN. TECHNIQUE: Portable upright AP view of the chest was obtained. COMPARISON: None. FINDINGS: Cardiomediastinal silhouette normal. Lungs and pleural spaces clear. Osseous structures and upper abdomen normal. IMPRESSION: 1. No acute cardiopulmonary disease. Electronically signed by: Juanito Tsang M.D. 05/04/2017 8:01 AM Dictated Date/Time: 05/04/2017 8:01 AM
--- NOTE | 2017-05-04 08:05 | DIAGNOSTIC IMAGING REPORT ---
LEFT KNEE 3 VIEWS CLINICAL HISTORY: 51 years-old Female presenting with fall, pain. TECHNIQUE: Frontal and crosstable lateral views of the left knee were obtained. COMPARISON: 12/14/2016. FINDINGS: Intramedullary ayaan and interlocking screw fixation of the proximal tibial metadiaphysis with chronic thick periosteal reaction along the lateral aspect of the proximal tibial metaphysis. No apparent hardware complication. Knee joint congruent. Mild asymmetric narrowing of the medial compartment of the knee joint may suggest mild degenerative change. No osteophytosis or subchondral sclerosis. No acute fracture, malalignment, or unexpected radiopaque foreign body. No knee joint effusion. Soft tissues grossly normal. IMPRESSION: 1. No acute osseous injury of the left knee. No hardware complication of the tibial and internal fixation. Electronically signed by: Juanito Tsang M.D. 05/04/2017 8:04 AM Dictated Date/Time: 05/04/2017 8:01 AM
== END 2017-05-04 04:30 | disposition home or self-care (01) ==
LOC: C.EDB 01:15 → C.EDA 04:30
DX: R07.2 Precordial pain (principal); S89.92XA Unspecified injury of left lower leg, initial encounter; S32.10XA Unspecified fracture of sacrum, initial encounter for closed fracture; S32.2XXA Fracture of coccyx, initial encounter for closed fracture; W01.0XXA Fall on same level from slipping, tripping and stumbling without subsequent striking against object, initial encounter; F17.200 Nicotine dependence, unspecified, uncomplicated; M53.3 Sacrococcygeal disorders, not elsewhere classified; F41.1 Generalized anxiety disorder; J45.909 Unspecified asthma, uncomplicated; I25.10 Atherosclerotic heart disease of native coronary artery without angina pectoris; F32.9 Major depressive disorder, single episode, unspecified; E11.9 Type 2 diabetes mellitus without complications; M54.9 Dorsalgia, unspecified; G89.29 Other chronic pain; E78.5 Hyperlipidemia, unspecified; I10 Essential (primary) hypertension; M51.26 Other intervertebral disc displacement, lumbar region; M54.17 Radiculopathy, lumbosacral region; M19.90 Unspecified osteoarthritis, unspecified site; F43.10 Post-traumatic stress disorder, unspecified; Z86.73 Personal history of transient ischemic attack (TIA), and cerebral infarction without residual deficits; Z95.5 Presence of coronary angioplasty implant and graft; Z79.82 Long term (current) use of aspirin; Z83.3 Family history of diabetes mellitus; Z82.49 Family history of ischemic heart disease and other diseases of the circulatory system

== ENCOUNTER 2017-11-04 13:32 | Emergency (ER) | payer OTHER ==
[~2017-11-04] VITALS: Ht 167.6 cm; Wt 128.0 kg
[~2017-11-04 13:32] MED LIST changes: +LISI-729 PO; -LSN5 PO; +MELO15TA4 PO
[2017-11-04 14:00] VITALS: BP 134/93; PULSE 104; TEMP 36.6; O2SAT 97; Ht 167.6 cm; Wt 128.0 kg
--- NOTE | 2017-11-04 14:59 | DIAGNOSTIC IMAGING REPORT ---
R RIBS UNILATERAL WITH PA CHEST CLINICAL HISTORY: R lateral rib pain trauma. Pain. COMPARISON STUDY: FINDINGS: Negative right ribs. No evidence for fracture. Lungs are clear. Diaphragms smooth. IMPRESSION: Negative right ribs. Negative chest. The above report was generated using voice recognition software. It may contain grammatical, syntax or spelling errors. Electronically signed by: Tl Grullon M.D. 11/04/2017 2:58 PM Dictated Date/Time: 11/04/2017 2:57 PM
--- NOTE | 2017-11-04 15:00 | DIAGNOSTIC IMAGING REPORT ---
C-SPINE ROUTINE 4 OR 5 VIEWS HISTORY: Trauma fall, neck pain COMPARISON: None. FINDINGS: The cervical spine is visualized from C1 through the superior endplate of T1. There is no fracture. No subluxation. Moderate degenerative disc change. Prevertebral soft tissues and the atlantodens interval are intact. IMPRESSION: Moderate degenerative change. No acute bony abnormality. The above report was generated using voice recognition software. It may contain grammatical, syntax or spelling errors. Electronically signed by: Tl Grullon M.D. 11/04/2017 2:58 PM Dictated Date/Time: 11/04/2017 2:58 PM
--- NOTE | 2017-11-04 15:01 | DIAGNOSTIC IMAGING REPORT ---
R SHOULDER MIN 2 VIEWS ROUTINE CLINICAL HISTORY: R shoulder pain pain. Trauma. COMPARISON: None. DISCUSSION: The bones and joint spaces appear intact. There is no evidence of fracture, dislocation or bony disease. There is no evidence for soft tissue swelling. IMPRESSION: Negative study. The above report was generated using voice recognition software. It may contain grammatical, syntax or spelling errors. Electronically signed by: Tl Grullon M.D. 11/04/2017 2:59 PM Dictated Date/Time: 11/04/2017 2:59 PM
--- NOTE | 2017-11-04 15:01 | DIAGNOSTIC IMAGING REPORT ---
PELVIS 1 OR 2 VIEW ROUTINE CLINICAL HISTORY: Right iliac crest pain pain COMPARISON: None. DISCUSSION: The bones and joint spaces appear intact. There is no evidence of fracture, dislocation or bony disease. There is no evidence for soft tissue swelling. IMPRESSION: Negative study. The above report was generated using voice recognition software. It may contain grammatical, syntax or spelling errors. Electronically signed by: Tl Grullon M.D. 11/04/2017 3:00 PM Dictated Date/Time: 11/04/2017 3:00 PM
[2017-11-04] MEDS ORDERED: HYDROCODONE/ACETAMOPHEN 5/325MG TAB PO SCH (15:30)
[2017-11-04] MEDS ORDERED: HYDR-5688 PO (15:44)
--- NOTE | 2017-11-04 18:05 | EMERGENCY ROOM VISIT NOTE ---
History First contact with patient: 13:35 Chief Complaint: FALL Stated Complaint: FALL History of Present Illness The patient is a 52 year old -[place] female who presents to the Emergency Room with complaints of neck discomfort, right shoulder pain, right rib pain, and right hip pain after falling today. She walked into the [employer] grocery store and slipped on some water that was in the flower section. She fell onto her right side. She states she did strike a metal table. She laid on the ground for proximate 20 minutes before EMS arrived. She states her head was cocked in an awkward position which caused her neck pain. There was no loss of consciousness. She denies striking her head. Her worst discomfort is over the right ribs and right pelvis. She has not been ambulatory. No symptoms on the left. No numbness or tingling. No nausea or vomiting. She arrives by BLS. Review of Systems REVIEW OF SYSTEM: HEENT: No dizziness, visual problems, hearing loss, or tinnitus. There is no difficulty swallowing and no oral lesions are present. LYMPH: No adenopathy. PULMONARY: No cough, shortness of breath, sputum production or hemoptysis. CARDIOVASCULAR: No chest pain, palpitations, shortness of breath or peripheral edema. GASTROINTESTINAL: No diarrhea, constipation, nausea, vomiting, or abdominal pain. GENITOURINARY: No dysuria, frequency, urgency or nocturia. NEUROLOGIC: No weakness, muscle tenderness, or epilepsy. Positive history of stroke. MUSCULOSKELETAL: No history of joint tenderness/swelling. No history of arthritis or arthralgias. SKIN: No rashes or lesions. PSYCHIATRIC: Positive history of anxiety and PTSD. ENDOCRINE: No history of thyroid disorders, or abnormal hair growth. Past Medical/Surgical History Medical Problems: (1) Acute coronary syndrome (2) Acute CVA (cerebrovascular accident) (3) Acute postoperative pain of right foot (4) Anxiety State Nos (5) Asthma exacerbation (6) Asthma, Unspecified (7) Asthmatic bronchitis (8) CAD (coronary artery disease) (9) Chest pain (10) Chest pain radiating to arm (11) Depressive Disorder Nec (12) Diab Estrellita Wo Compl, Type Ii Or Unspec Type, Not Uncntrld (13) Diabetes (14) KLINE (dyspnea on exertion) (15) Exacerbation of chronic back pain (16) Exacerbation of chronic back pain (17) Fall (18) Hyperlipidemia Nec/Nos (19) Hypertension Nos (20) Ischemic cerebrovascular accident (CVA) of frontal lobe (21) Left elbow pain (22) Lower back pain (23) Lumbar Disc Displacement (24) Lumbosacral Neuritis Nos (25) Migraine (26) Non-hemorrhagic cerebrovascular accident (27) Osteoarthros Nos-Unspec (28) Posttraumatic Stress Disorder (29) Precordial chest pain (30) Received intravenous tissue plasminogen activator (t-PA) in emergency department (31) Unstable angina Surgical Problems: (1) Stented coronary artery Family History Diabetes mellitus Heart disease Hypertension Social History Smoking Status: Never Smoker Smokeless Tobacco Use: No Alcohol Use: none Drug Use: none Marital Status: in relationship Housing Status: lives with family Occupation Status: unemployed Current/Historical Medications Scheduled Aspirin (Aspirin Ec), 81 MG PO DAILY Atorvastatin (Lipitor), 40 MG PO HS Isosorbide Mononitrate (Isosorbide Mononitrate ER), 60 MG PO DAILY Lisinopril (Zestril), 10 MG PO DAILY Meloxicam (Mobic), 15 MG PO DAILY Metoprolol Tartrate (Lopressor) (Lopressor), 25 MG PO BID Mometasone Furoate-Formoterol (Dulera 200/5 Mcg), 2 PUFFS INH BID Omeprazole (Prilosec), 40 MG PO DAILY Ranitidine HCl (Ranitidine HCl), 150 MG PO HS Scheduled PRN Albuterol Hfa (Ventolin Hfa), 2 PUFFS INH Q4-6H PRN for Shortness of Breath Hydrocodone/Acetaminophen 5MG/325MG (Sch[place]enburg 5MG/325MG), 1 TABLET PO Q6H PRN for Pain Ipratropium-Albuterol (Duoneb), 1 TREATMENT INH Q6H PRN for Shortness of Breath Nitroglycerin (Nitrostat), 0.4 MG UT UD PRN for Chest Pain Promethazine (Phenergan ), 12.5 MG PO Q12 PRN for Migraine Physical Exam Vital Signs Date Time Temp Pulse Resp B/P (MAP) Pulse Ox O2 Delivery O2 Flow Rate FiO2 11/04/17 14:00 36.6 104 16 134/93 97 Room Air Physical Exam Gen.: Well-developed, well-nourished, middle-aged -[place] female, in obvious discomfort. No acute distress. Laying on a bed. Alert and oriented. Obese. Skin:Warm and dry with good turgor. No rashes or lesions. No ecchymosis or erythema. The patient is not diaphoretic. Minor abrasions present over her right iliac crest. HEENT: Normocephalic atraumatic. Eyes PERRLA, EOMI. No conjunctiva or scleral injection. Ears TMs intact bilaterally with good light reflexes. No erythema or bulging. No hemotympanum. Canals are patent. Nares patent bilaterally without turbinate enlargement. No significant drainage. No epistaxis. Oropharynx without erythema or exudate. Uvula midline, oral mucosa moist. No lesions present. Lymphatics are palpated without anterior or posterior chain enlargement or tenderness. Heart: Heart RRR. No MGR. Peripheral pulses are 2+. Lungs: Lungs are clear to auscultation. No crackles rhonchi or wheezing. Good air movement. The patient is able to take a deep breath. Abdomen: Abdomen was inspected, auscultated, and palpated. Obese. Bowel sounds present x 4. Soft, nontender to palpation. No hepato-splenomegaly. No masses noted. No rebound, no CVA tenderness. Musculoskeletal: Patient has discomfort with palpation over her right trapezius and paraspinal musculature. Good range of motion of the neck. Right shoulder has no obvious asymmetry or deformity. She has discomfort with palpation over the before meals joint. No pain with palpation over the glenohumeral joint. She describes soreness with palpation over the posterior rotator cuff musculature. Limited shoulder motion secondary to pain. Full range of motion of the elbow, wrist, and digits. Lower extremity evaluation reveals full motion of the left hip, knee, and ankle. She has lateral hip pain and pain over the iliac crest with motion of the right hip. Intact motion to the knee and ankle. No pain with palpation of the groin. No pain with log rolling. Her worst discomfort is over the abrasion at the top of her iliac crest. She also complains of pain with palpation over the right lateral ribs. There is lateral discomfort with AP compression of the chest wall. Neurologic: Gross sensation is intact across the upper and lower extremities by soft touch. Medical Decision & Procedures ER Provider Diagnostic Interpretation: Radiographic imaging obtained today of the cervical spine, right shoulder, right ribs, and pelvis were reviewed by me and read by radiology. No evidence for fracture in any of the films. She does have degenerative change within her lumbar spine and cervical spine. Medications Administered Medications (Trade) Dose Ordered Sig/Jaxon Route Start Time Stop Time Status Last Admin Dose Admin Acetaminophen/ Hydrocodone Bitart (Sch[place] 5/325 Tab) 1 tab TODAY@1530 PO 11/04/17 15:30 11/04/17 16:47 DC 11/04/17 15:56 1 TAB Schulenburg 1 tablet by mouth ED Course Patient was educated regarding today's findings. Conservative care measures were discussed. Thorough examination was performed in A3. Imaging studies were obtained. Patient was reassured that there is no evidence for fracture or dislocation. She was given a tablet of Schulenburg. She likely has multiple contusions and strains. This should resolve on their own. Gentle stretching daily. Ice and elevate intermittently as needed over the next 3 days, then use moist heat. Tylenol and Motrin every 6 hours as needed for mild to moderate discomfort. Substitute Schulenburg 5 mg every 6 hours as needed for more severe pain. Driving precautions were given. Follow-up with her PCP for a therapy referral if symptoms are not improving. She may also return to the ED for any acute changes. Medical Decision Possibility of fracture, contusion, pulmonary injury, and head injury were considered. [place] Drug Monitoring Program Search Results: no issues identified Medication Reconcilliation Current Medication List: was personally reviewed by me Blood Pressure Screening Patient's blood pressure: Normal blood pressure Impression Primary Impression: Contusion of multiple sites Additional Impression: Fall Departure Information Dispostion Home / Self-Care Condition FAIR Prescriptions Hydrocodone/Acetaminophen 5MG/325MG (Schulenburg 5MG/325MG) Tab 1 TABLET PO Q6H Y for Pain, #12 TAB For Initial Treatment Prov: Tremayne Coronado,P.A. 11/04/17 Forms HOME CARE DOCUMENTATION FORM, MOTRIN USE, TYLENOL USE, IMPORTANT VISIT INFORMATION Patient Instructions My [facility] Additional Instructions Gentle stretching daily You may be more sore tomorrow than you are today Follow-up with your PCP this week for reexamination if symptoms persist Return to the ED for any acute worsening of symptoms Use the sling as needed for comfort Tylenol and Motrin every 6 hours as needed for mild to moderate pain Schulenburg 1 tablet every 6 hours as needed for more severe pain-no driving ice and elevate intermittently as needed for discomfort Problem Qualifiers Additional Impression: Fall Encounter type: initial encounter Qualified Codes: W19.XXXA - Unspecified fall, initial encounter
== END 2017-11-04 16:03 | disposition home or self-care (01) ==
LOC: EDBD 13:32 → C.EDA 13:33
DX: S40.011A Contusion of right shoulder, initial encounter (principal); S70.01XA Contusion of right hip, initial encounter; S20.211A Contusion of right front wall of thorax, initial encounter; W01.190A Fall on same level from slipping, tripping and stumbling with subsequent striking against furniture, initial encounter; Y92.512 Supermarket, store or market as the place of occurrence of the external cause; M54.2 Cervicalgia; S70.211A Abrasion, right hip, initial encounter; J45.909 Unspecified asthma, uncomplicated; F41.9 Anxiety disorder, unspecified; I25.10 Atherosclerotic heart disease of native coronary artery without angina pectoris; F32.9 Major depressive disorder, single episode, unspecified; E11.9 Type 2 diabetes mellitus without complications; M54.17 Radiculopathy, lumbosacral region; G89.29 Other chronic pain; E78.5 Hyperlipidemia, unspecified; I10 Essential (primary) hypertension; F43.10 Post-traumatic stress disorder, unspecified; M19.90 Unspecified osteoarthritis, unspecified site; E66.9 Obesity, unspecified; M47.812 Spondylosis without myelopathy or radiculopathy, cervical region; M47.816 Spondylosis without myelopathy or radiculopathy, lumbar region; Z86.73 Personal history of transient ischemic attack (TIA), and cerebral infarction without residual deficits; Z95.5 Presence of coronary angioplasty implant and graft; Z79.82 Long term (current) use of aspirin; Z83.3 Family history of diabetes mellitus; Z82.49 Family history of ischemic heart disease and other diseases of the circulatory system

== ENCOUNTER 2017-11-27 22:12 | Emergency (ER) | payer OTHER ==
[~2017-11-27] VITALS: Ht 167.6 cm; Wt 125.3 kg
[~2017-11-27 22:12] MED LIST changes: +HYDR-5688 PO; -NICO1DIS TOP
[2017-11-27 22:17] VITALS: TEMP 36.6; Ht 167.6 cm; Wt 125.3 kg
[2017-11-27 22:20] VITALS: O2SAT 98
--- NOTE | 2017-11-27 22:38 | DIAGNOSTIC IMAGING REPORT ---
CHEST ONE VIEW PORTABLE CLINICAL HISTORY: Atypical chest pain COMPARISON STUDY: May 04, 2017 FINDINGS: The cardiac and mediastinal contours are normal. There is no evidence of focal pulmonary consolidation. There is no evidence of failure. No pleural effusions are visualized.[ IMPRESSION: No active disease in the chest. Electronically signed by: Gómez Verma M.D. 11/27/2017 10:37 PM Dictated Date/Time: 11/27/2017 10:36 PM
[2017-11-27] MEDS ORDERED: ASPIRIN 324 MG CHEW PO STA (23:11)
[2017-11-27] MEDS ORDERED: NITROGLYCERIN 0.4 MG SL PER TAB CHARGE SL STA (23:11)
[2017-11-27] MEDS ORDERED: HYDR-5688 PO (23:28)
[2017-11-27 23:33] LABS: HEMATOCRIT 40.9 % (37-47); HEMOGLOBIN 13.4 g/dL (12.0-16.0); MEAN CELL VOLUME 94.2 fL (80-100); MEAN CORPUSCULAR HEMOGLOBIN 30.9 pg (25-34); MEAN CORPUSCULAR HGB CONC 32.8 g/dl (32-36); MEAN PLATELET VOLUME 11.3 fL (7.4-10.4); PLATELET COUNT 259 K/uL (130-400); RED CELL DISTRIBUTION WIDTH CV 14.2 % (11.5-14.5); RED CELL DISTRIBUTION WIDTH SD 48.3 fL (36.4-46.3); WHITE BLOOD COUNT 9.18 K/uL (4.8-10.8)
[2017-11-27 23:49] LABS: PTT PATIENT 22.9 SECONDS (21.0-31.0)
[2017-11-27 23:51] LABS: ALBUMIN 3.3 gm/dl (3.4-5.0); ALT/SGPT 26 U/L (12-78); AST/SGOT 18 U/L (15-37); BLOOD UREA NITROGEN 15 mg/dl (7-18); CALCIUM 9.9 mg/dl (8.5-10.1); CARBON DIOXIDE 25 mmol/L (21-32); CREATININE 0.91 mg/dl (0.60-1.20); GLUCOSE 126 mg/dl (70-99); SODIUM 142 mmol/L (136-145)
[2017-11-27 23:57] LABS: ALKALINE PHOSPHATASE 96 U/L (45-117); CKMB 0.7 ng/ml (0.5-3.6); TOTAL PROTEIN 7.4 gm/dl (6.4-8.2)
[2017-11-28] MEDS ORDERED: FAMOTIDINE 20MG/5ML IV PUSH IV STA (00:28)
[2017-11-28] MEDS ORDERED: FENTANYL CITRATE INJ 50 MCG/1 ML 2 ML VIAL IV STA (00:28)
--- NOTE | 2017-11-28 01:12 | EMERGENCY ROOM VISIT NOTE ---
History Report prepared by Lisa: Maranda Dow Under the Supervision of: Dr. Chino James M.D. First contact with patient: 23:05 Chief Complaint: CHEST PAIN Stated Complaint: CHEST PAIN History of Present Illness The patient is a 52 year old female who presents to the Emergency Room with complaints of persistent chest pain starting 45 minutes ago. The pain feels like her previous [place]. The pain radiates into her left shoulder, but not into her arm. She was watching TV in bed when the pain started. She has taken 2 nitro to no significant relief. She has not taken aspirin. She is SOB. She denies any nausea or vomiting. She last had chest pain 2 months ago. She did not see a doctor at that time. 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 She had stents in 2011. Source of History: patient Onset: 45 minutes ago Position: chest Quality: other (pain) Timing: other (persistent) Associated Symptoms: + SOB, No nausea, No vomiting Note: Pt reports left shoulder pain. Review of Systems See HPI for pertinent positives and negatives. A total of ten systems were reviewed and were otherwise negative. Past Medical & Surgical Medical Problems: (1) Acute coronary syndrome (2) Acute CVA (cerebrovascular accident) (3) Acute postoperative pain of right foot (4) Anxiety State Nos (5) Asthma exacerbation (6) Asthma, Unspecified (7) Asthmatic bronchitis (8) CAD (coronary artery disease) (9) Chest pain (10) Chest pain radiating to arm (11) Depressive Disorder Nec (12) Diab Estrellita Wo Compl, Type Ii Or Unspec Type, Not Uncntrld (13) Diabetes (14) KLINE (dyspnea on exertion) (15) Exacerbation of chronic back pain (16) Exacerbation of chronic back pain (17) Fall (18) Hyperlipidemia Nec/Nos (19) Hypertension Nos (20) Ischemic cerebrovascular accident (CVA) of frontal lobe (21) Left elbow pain (22) Lower back pain (23) Lumbar Disc Displacement (24) Lumbosacral Neuritis Nos (25) Migraine (26) Non-hemorrhagic cerebrovascular accident (27) Osteoarthros Nos-Unspec (28) Posttraumatic Stress Disorder (29) Precordial chest pain (30) Received intravenous tissue plasminogen activator (t-PA) in emergency department (31) Unstable angina Surgical Problems: (1) Stented coronary artery Family History Diabetes mellitus Heart disease Hypertension Social History Smoking Status: Current Every Day Smoker Alcohol Use: none Drug Use: none Marital Status: in relationship Housing Status: lives with family Occupation Status: unemployed Current/Historical Medications Scheduled Aspirin (Aspirin Ec), 81 MG PO DAILY Atorvastatin (Lipitor), 40 MG PO HS Isosorbide Mononitrate (Isosorbide Mononitrate ER), 60 MG PO DAILY Lisinopril (Zestril), 10 MG PO DAILY Meloxicam (Mobic), 15 MG PO DAILY Metoprolol Tartrate (Lopressor) (Lopressor), 25 MG PO BID Mometasone Furoate-Formoterol (Dulera 200/5 Mcg), 2 PUFFS INH BID Omeprazole (Prilosec), 40 MG PO DAILY Ranitidine HCl (Ranitidine HCl), 150 MG PO HS Scheduled PRN Albuterol Hfa (Ventolin Hfa), 2 PUFFS INH Q4-6H PRN for Shortness of Breath Hydrocodone/Acetaminophen 5MG/325MG ([place] 5MG/325MG), 1 TABLET PO Q6 PRN for Pain Ipratropium-Albuterol (Duoneb), 1 TREATMENT INH Q6H PRN for Shortness of Breath Nitroglycerin (Nitrostat), 0.4 MG UT UD PRN for Chest Pain Promethazine (Phenergan ), 12.5 MG PO Q12 PRN for Migraine Allergies Coded Allergies: No Known Allergies (Unverified , 11/27/17) Physical Exam Vital Signs Date Time Temp Pulse Resp B/P (MAP) Pulse Ox O2 Delivery O2 Flow Rate FiO2 11/28/17 02:55 88 20 144/70 98 11/28/17 02:19 96 11/28/17 02:11 97 20 122/77 98 Room Air 11/28/17 00:40 100 20 127/79 98 Room Air 11/27/17 23:31 101 20 146/94 97 Room Air 11/27/17 23:01 104 132/91 99 Room Air 11/27/17 22:24 108 11/27/17 22:22 98 Room Air 11/27/17 22:20 98 Room Air 11/27/17 22:17 36.6 109 23 171/103 97 Room Air Physical Exam GENERAL: Awake, alert, uncomfortable-appearing, in no distress HENT: Normocephalic, atraumatic. Dry mucous membranes otherwise oropharynx unremarkable. EYES: Normal conjunctiva. Sclera non-icteric. NECK: Supple. No nuchal rigidity. FROM. No JVD. RESPIRATORY: Clear to auscultation. CARDIAC: Regular rate, normal rhythm. Extremities warm and well perfused. Pulses equal. ABDOMEN: Obese. Soft, non-distended. No tenderness to palpation. No rebound or guarding. No masses. RECTAL: Deferred. MUSCULOSKELETAL: Chest examination reveals no tenderness. The back is symmetrical on inspection without obvious abnormality. There is no CVA tenderness to palpation. No joint edema. LOWER EXTREMITIES: Calves are equal size bilaterally and non-tender. Scant edema. No discoloration. NEURO: Normal sensorium. No sensory or motor deficits noted. SKIN: No rash or jaundice noted. Medical Decision & Procedures ER Provider Diagnostic Interpretation: Xray results as stated below per my and radiologist interpretation: CHEST ONE VIEW PORTABLE CLINICAL HISTORY: Atypical chest pain COMPARISON STUDY: May 04, 2017 FINDINGS: The cardiac and mediastinal contours are normal. There is no evidence of focal pulmonary consolidation. There is no evidence of failure. No pleural effusions are visualized.[ IMPRESSION: No active disease in the chest. Electronically signed by: Gómez Verma M.D. 11/27/2017 10:37 PM Dictated Date/Time: 11/27/2017 10:36 PM Laboratory Results 11/27/17 23:20 11/27/17 23:20 Test 11/27/17 23:20 11/28/17 02:08 Red Blood Count 4.34 M/uL (4.2-5.4) Mean Corpuscular Volume 94.2 fL (80-100) Mean Corpuscular Hemoglobin 30.9 pg (25-34) Mean Corpuscular Hemoglobin Concent 32.8 g/dl (32-36) RDW Standard Deviation 48.3 fL (36.4-46.3) RDW Coefficient of Variation 14.2 % (11.5-14.5) Mean Platelet Volume 11.3 fL (7.4-10.4) Prothrombin Time 10.0 SECONDS (9.0-12.0) Prothromb Time International Ratio 1.0 (0.9-1.1) Activated Partial Thromboplast Time 22.9 SECONDS (21.0-31.0) Partial Thromboplastin Ratio 0.9 Anion Gap 9.0 mmol/L (3-11) Est Creatinine Clear Calc Drug Dose 96.7 ml/min Estimated GFR () 83.5 Estimated GFR (Non- 72.0 BUN/Creatinine Ratio 16.3 (10-20) Calcium Level 9.9 mg/dl (8.5-10.1) Magnesium Level 2.3 mg/dl (1.8-2.4) Total Bilirubin 0.3 mg/dl (0.2-1) Aspartate Amino Transf (AST/SGOT) 18 U/L (15-37) Alanine Aminotransferase (ALT/SGPT) 26 U/L (12-78) Alkaline Phosphatase 96 U/L (45-117) Total Creatine Kinase 93 U/L (26-192) Creatine Kinase MB 0.7 ng/ml (0.5-3.6) Creatine Kinase MB Ratio 0.8 (0-3.0) Troponin I < 0.015 ng/ml (0-0.045) Total Protein 7.4 gm/dl (6.4-8.2) Albumin 3.3 gm/dl (3.4-5.0) Globulin 4.1 gm/dl (2.5-4.0) Albumin/Globulin Ratio 0.8 (0.9-2) Bedside Troponin I < 0.030 ng/ml (0-0.045) Laboratory results reviewed by me Medications Administered Medications (Trade) Dose Ordered Sig/Jaxon Route Start Time Stop Time Status Last Admin Dose Admin Nitroglycerin (Nitrostat Tab) 0.4 mg NOW STAT SL 11/27/17 23:11 11/27/17 23:14 DC 11/27/17 23:11 0.4 MG Aspirin (Aspirin Chew) 324 mg NOW STAT PO 11/27/17 23:11 11/27/17 23:14 DC 11/27/17 23:30 324 MG Fentanyl Citrate (Fentanyl Inj) 50 mcg NOW STAT IV 11/28/17 00:28 11/28/17 00:29 DC 11/28/17 00:37 50 MCG Famotidine (Pepcid 20mg Iv Push) 20 mg NOW STAT IV 11/28/17 00:28 11/28/17 00:29 DC 11/28/17 00:37 20 MG Ketorolac Tromethamine (Toradol Inj) 15 mg NOW STAT IV 11/28/17 01:56 11/28/17 01:58 DC 11/28/17 02:10 15 MG ECG Indication: chest pain Rate (beats per minute): 111 Rhythm: sinus tachycardia Findings: no acute ischemic change, other (normal axis) Change: Patient's electrocardiogram interpreted by me. ED Course 2306: The patient was evaluated in room A9A. A complete history and physical exam was performed. Medical Decision I reviewed the patient's past medical history, medications, and the nursing notes as described above. Differential diagnosis: Etiologies such as cardiac ischemia, aortic dissection, pulmonary embolism, pneumonia, pneumothorax, musculoskeletal, infections, pericarditis, myocarditis , esophageal rupture, gastrointestinal, as well as others were entertained. The patient is a 51-year-old woman with a past medical history of CAD status post stent placement who presents emergency Department with acute onset chest pain per hpi. On arrival patient is uncomfortable but in no acute distress, afebrile stable vital signs. EKG is unremarkable without evidence of acute ischemia. Initial troponin was negative. Labs otherwise unremarkable. Patient was given nitroglycerin without effect. Subsequently given fentanyl and pepcid. Patient has a heart score of 5, moderate risk. Case was d/w Dr. Jung for possible admission. He is familiar with the patient from her previous admission for similar symptoms last year and patient was evaluated by cardiology who believed patient's symptoms were not cardiac at that time given that she had non-obstructive coronary disease with patent stents on [facility] 2014. Thus, plan will be to check and 2 hour delta troponin in the setting of the patient's constant pain. If negative, unlikely to have cardiac etiology to her pain and will be d/c with pcp f/u. Delta troponin negative and unchanged > 4 hours form onset of sx, thus unlikely to be cardiac at this time. Patient's pain improved after Toradol. Findings and plan for follow-up reviewed with patient. Patient agreeable and d/c'd per discharge instructions. Medication Reconcilliation Current Medication List: was personally reviewed by me Blood Pressure Screening Patient's blood pressure: Elevated blood pressure Referred to hospitalist. Impression Primary Impression: Substernal precordial chest pain Scribe Attestation The scribe's documentation has been prepared under my direction and personally reviewed by me in its entirety. I confirm that the note above accurately reflects all work, treatment, procedures, and medical decision making performed by me. Departure Information Dispostion Home / Self-Care Referrals No Doctor, Assigned (PCP) Patient Instructions ED Chest Pain Atypical Unkn Cause, My [facility] Additional Instructions Please follow up with your primary care physician in the next 1-3 days for re- evaluation. The cause of your symptoms is unclear at this time. However, your exam, EKG, chest xray, and lab results did not show signs of an emergent condition at this time. Acetaminophen or ibuprofen for pain and fevers as needed. Drink plenty of fluids to ensure hydration. Return to the emergency department for worsening symptoms as described in the accompanying instructions.
[2017-11-28] MEDS ORDERED: KETOROLAC TROMETHAMINE 30 MG/ML VIAL IV STA (01:56)
[2017-11-28 02:55] VITALS: BP 144/70; PULSE 88; O2SAT 98
== END 2017-11-28 02:56 | disposition home or self-care (01) ==
LOC: C.EDB 22:13 → C.EDA 11-28 02:56
DX: R07.2 Precordial pain (principal); I25.110 Atherosclerotic heart disease of native coronary artery with unstable angina pectoris; I10 Essential (primary) hypertension; I25.2 Old myocardial infarction; Z95.5 Presence of coronary angioplasty implant and graft; E78.5 Hyperlipidemia, unspecified; J45.909 Unspecified asthma, uncomplicated; E11.9 Type 2 diabetes mellitus without complications; F17.200 Nicotine dependence, unspecified, uncomplicated; Z79.82 Long term (current) use of aspirin; Z79.1 Long term (current) use of non-steroidal anti-inflammatories (NSAID); Z79.51 Long term (current) use of inhaled steroids; Z86.73 Personal history of transient ischemic attack (TIA), and cerebral infarction without residual deficits; Z83.3 Family history of diabetes mellitus; Z82.49 Family history of ischemic heart disease and other diseases of the circulatory system

== ENCOUNTER → 2018-05-23 | Outpatient (CLI) | payer OTHER ==
[~2018-05-23] MED LIST changes: +ALPR0.254 PO; +ATOR-26 PO; +ATOR80TA PO; +CLOP1TAB15 PO; +DICL1GEL12 TOP; -HYDR-5688 PO; +INSUINJ20 SC; +IPRA-64 INH; -IPRASOL4 INH; -LPT40 PO; +LVQ500 PO; -MELO15TA4 PO; +METF-384 PO; +METF1000 PO; -METO25TA56 PO; +MRLP17X PO; +NICO14DI5 TD; +NPR250 PO; -OMEP40CA41 PO; +PANT1TAB4 PO; +PANT40TA PO; +PARO40TA3 PO; +PLV75 PO; +POLY335019 PO; +PRD10 PO; +PRED20TA PO; -PROM12.57 PO; +PROM25TA9 PO; +PROP80CA PO; +RBX500 PO; +TRAM-10 PO; +ULT50X PO; +VLTG EXT; +VRP40 PO
[2018-05-23 12:25] LABS: BASO % 0.2 %; BASO ABS # 0.02 K/uL (0-0.2); EOS % 2.1 %; EOS ABS # 0.17 K/uL (0-0.5); HEMATOCRIT 43.2 % (37-47); HEMOGLOBIN 14.1 g/dL (12.0-16.0); IG# 0.01 K/uL (0.00-0.02); LYMPH % 45.3 %; LYMPH ABS # 3.72 K/uL (1.2-3.4); MEAN CELL VOLUME 93.7 fL (80-100); MEAN CORPUSCULAR HEMOGLOBIN 30.6 pg (25-34); MEAN CORPUSCULAR HGB CONC 32.6 g/dl (32-36); MEAN PLATELET VOLUME 11.7 fL (7.4-10.4); MONO % 6.8 %; MONO ABS # 0.56 K/uL (0.11-0.59); NEUT % 45.5 %; NEUT ABS # 3.74 K/uL (1.4-6.5); PLATELET COUNT 231 K/uL (130-400); RED CELL DISTRIBUTION WIDTH CV 14.1 % (11.5-14.5); RED CELL DISTRIBUTION WIDTH SD 47.8 fL (36.4-46.3); WHITE BLOOD COUNT 8.22 K/uL (4.8-10.8)
[2018-05-23 12:40] LABS: HEMOGLOBIN A1C 7.7 % (4.5-5.6)
[2018-05-23 12:48] LABS: ALBUMIN 3.4 gm/dl (3.4-5.0); ALKALINE PHOSPHATASE 110 U/L (45-117); ALT/SGPT 19 U/L (12-78); AST/SGOT 16 U/L (15-37); BLOOD UREA NITROGEN 15 mg/dl (7-18); CALCIUM 9.6 mg/dl (8.5-10.1); CARBON DIOXIDE 25 mmol/L (21-32); CHOLESTEROL 156 mg/dl (0-200); CREATININE 0.85 mg/dl (0.60-1.20); GLUCOSE 141 mg/dl (70-99); LDL CHOLESTEROL CALCULATED 66 mg/dl; POTASSIUM 4.1 mmol/L (3.5-5.1); SODIUM 140 mmol/L (136-145); TOTAL PROTEIN 7.6 gm/dl (6.4-8.2)
== END | disposition home or self-care (01) ==
LOC: C.LAB 09:55
PROVIDERS: ATTEND Family Medicine Adult Medicine
DX: Z51.81 Encounter for therapeutic drug level monitoring (principal); E78.5 Hyperlipidemia, unspecified; E11.9 Type 2 diabetes mellitus without complications

== ENCOUNTER 2018-05-25 09:52 | Emergency (ER) | payer OTHER ==
[~2018-05-25] VITALS: Ht 167.6 cm; Wt 120.2 kg
[~2018-05-25 09:52] MED LIST changes: -ALPR0.254 PO; -ATOR-26 PO; -CLOP1TAB15 PO; -DICL1GEL12 TOP; -INSUINJ20 SC; -LVQ500 PO; -METF-384 PO; -PANT40TA PO; -POLY335019 PO; -PRD10 PO; -PRED20TA PO; -TRAM-10 PO; -VRP40 PO
[2018-05-25 10:02] VITALS: TEMP 36.8; Ht 167.6 cm; Wt 120.2 kg
[2018-05-25] MEDS ORDERED: METHYLPREDNISOLONE 125 MG VIAL IV STA (10:10)
[2018-05-25] MEDS ORDERED: ALBUT/IPRATROP 3MG/0.5MG NEB 3 ML VIAL INH STA (10:10)
[2018-05-25 10:18] LABS: BASO % 0.3 %; BASO ABS # 0.02 K/uL (0-0.2); EOS % 2.8 %; HEMOGLOBIN 12.8 g/dL (12.0-16.0); IG# 0.02 K/uL (0.00-0.02); LYMPH ABS # 2.18 K/uL (1.2-3.4); MEAN CELL VOLUME 93.8 fL (80-100); MEAN CORPUSCULAR HEMOGLOBIN 30.8 pg (25-34); MEAN CORPUSCULAR HGB CONC 32.8 g/dl (32-36); MEAN PLATELET VOLUME 11.3 fL (7.4-10.4); MONO % 8.9 %; MONO ABS # 0.63 K/uL (0.11-0.59); NEUT % 56.7 %; NEUT ABS # 3.99 K/uL (1.4-6.5); PLATELET COUNT 206 K/uL (130-400); RED CELL DISTRIBUTION WIDTH CV 14.3 % (11.5-14.5); RED CELL DISTRIBUTION WIDTH SD 48.6 fL (36.4-46.3); WHITE BLOOD COUNT 7.04 K/uL (4.8-10.8)
[2018-05-25 10:31] LABS: PTT PATIENT 25.1 SECONDS (21.0-31.0)
[2018-05-25] MEDS ORDERED: CLOP1TAB15 PO (10:40)
[2018-05-25] MEDS ORDERED: METF-384 PO (10:40)
[2018-05-25] MEDS ORDERED: POLY335019 PO (10:40)
[2018-05-25] MEDS ORDERED: TRAM-10 PO (10:40)
[2018-05-25] MEDS ORDERED: DICL1GEL12 TOP (10:40)
[2018-05-25] MEDS ORDERED: ATOR-26 PO (10:40)
[2018-05-25] MEDS ORDERED: PANT40TA PO (10:40)
[2018-05-25 10:42] LABS: ALBUMIN 3.4 gm/dl (3.4-5.0); ALKALINE PHOSPHATASE 112 U/L (45-117); ALT/SGPT 24 U/L (12-78); AST/SGOT 21 U/L (15-37); BLOOD UREA NITROGEN 11 mg/dl (7-18); CALCIUM 9.1 mg/dl (8.5-10.1); CARBON DIOXIDE 25 mmol/L (21-32); CKMB < 1.0 ng/ml (0.5-3.6); CREATININE 0.99 mg/dl (0.60-1.20); GLUCOSE 161 mg/dl (70-99); POTASSIUM 3.8 mmol/L (3.5-5.1); SODIUM 142 mmol/L (136-145); TOTAL PROTEIN 7.5 gm/dl (6.4-8.2)
--- NOTE | 2018-05-25 10:42 | DIAGNOSTIC IMAGING REPORT ---
CHEST ONE VIEW PORTABLE HISTORY: 52 years-old Female sob acute shortness of breath COMPARISON: Chest radiograph 03/02/2018 TECHNIQUE: Portable AP view of the chest FINDINGS: Cardiomediastinal and hilar silhouettes are within normal limits. No pneumothorax, pleural effusion, focal airspace consolidation or overt pulmonary edema. Bones of the chest appear grossly intact. IMPRESSION: No acute process. The above report was generated using voice recognition software. It may contain grammatical, syntax or spelling errors. Electronically signed by: Aroldo Cruz M.D. 05/25/2018 10:41 AM Dictated Date/Time: 05/25/2018 10:40 AM
[2018-05-25] MEDS ORDERED: PRED20TA PO (11:59)
--- NOTE | 2018-05-25 12:00 | EMERGENCY ROOM VISIT NOTE ---
History Report prepared by Lisa: Ramo Desai Under the Supervision of: Dr. Hiren Parsons D.O. First contact with patient: 09:58 Chief Complaint: COUGH Stated Complaint: SHORTNESS OF BREATH Nursing Triage Summary: Nonproductive cough, sore throat, ear pain, nasal congestion x3 days. History of asthma, using nebulizers at home. Pain in chest when coughing. History of Present Illness The patient is a 52 year old female who presents to the Emergency Room with complaints of worsening SOB that began 3 days ago. Patient adds she has a productive cough and sore throat. She states the mucous from her cough "stays in her chest". Past medical history includes asthma, CAD, and fluid fill up in her lungs. Patient states she used four nebulizers last night and one this morning without relief of her symptoms. She adds she has an inhaler. Patient states she is a former smoker. She adds she had a fever 3 days ago but it has resolved. She denies leg swelling, weight gain, or any recent use of steroids or antibiotics. Source of History: patient Onset: 3 days ago Position: chest Timing: worsening Modifying Factors (Relieving): other (None) Associated Symptoms: + sorethroat, + cough, No fevers Note: Negative leg swelling. Review of Systems See HPI for pertinent positives & negatives. A total of 10 systems reviewed and were otherwise negative. Past Medical & Surgical Medical Problems: (1) Acute coronary syndrome (2) Acute CVA (cerebrovascular accident) (3) Acute postoperative pain of right foot (4) Anxiety State Nos (5) Asthma (6) Asthma exacerbation (7) Asthma, Unspecified (8) Asthmatic bronchitis (9) CAD (coronary artery disease) (10) CAD (coronary artery disease) (11) Chest pain (12) Chest pain radiating to arm (13) Chronic back pain (14) Depressive Disorder Nec (15) Diab Estrellita Wo Compl, Type Ii Or Unspec Type, Not Uncntrld (16) Diabetes (17) KLINE (dyspnea on exertion) (18) Exacerbation of chronic back pain (19) Exacerbation of chronic back pain (20) Fall (21) Hyperlipidemia Nec/Nos (22) Hypertension Nos (23) Ischemic cerebrovascular accident (CVA) of frontal lobe (24) Left elbow pain (25) Lower back pain (26) Lumbar Disc Displacement (27) Lumbosacral Neuritis Nos (28) Migraine (29) Non-hemorrhagic cerebrovascular accident (30) Osteoarthros Nos-Unspec (31) Posttraumatic Stress Disorder (32) Precordial chest pain (33) Received intravenous tissue plasminogen activator (t-PA) in emergency department (34) TIA (transient ischemic attack) (35) Unstable angina Surgical Problems: (1) Stented coronary artery Family History Diabetes mellitus Heart disease Hypertension Social History Smoking Status: Former Smoker Alcohol Use: none Drug Use: none Marital Status: single Housing Status: lives with family Occupation Status: disabled Current/Historical Medications Scheduled Aspirin (Aspirin Ec), 81 MG PO QAM Atorvastatin (Lipitor), 80 MG PO HS Clopidogrel (Plavix), 75 MG PO QAM Diclofenac Sodium (Topical) (Voltaren 1% Top Gel), 1 APPLN TOP 3XDQ4 Isosorbide Mononitrate (Isosorbide Mononitrate ER), 60 MG PO QAM Lisinopril (Zestril), 15 MG PO QAM Metformin Hcl (Glucophage), 1,000 MG PO BID Mometasone Furoate-Formoterol (Dulera 200/5 Mcg), 2 PUFFS INH BID Pantoprazole (Protonix), 40 MG PO QAM Paroxetine Hcl (Paxil), 1 TAB PO QAM Propranolol Hcl (Propranolol Hcl Er), 60 MG PO QAM Ranitidine HCl (Ranitidine HCl), 150 MG PO HS Scheduled PRN Albuterol Hfa (Ventolin Hfa), 2 PUFFS INH Q4-6H PRN for Shortness of Breath Ipratropium-Albuterol (Duoneb), 1 TREATMENT INH Q6H PRN for Shortness of Breath Nitroglycerin (Nitrostat), 0.4 MG UT UD PRN for Chest Pain Polyethylene Glycol 3350 (Miralax), 17 GM PO DAILY PRN for Constipation Promethazine Hcl (Phenergan), 12.5 MG PO BID PRN for Nausea Tramadol (Ultram), 50 MG PO Q4H PRN for Pain Allergies Coded Allergies: No Known Allergies (Unverified , 05/25/18) Physical Exam Vital Signs Date Time Temp Pulse Resp B/P (MAP) Pulse Ox O2 Delivery O2 Flow Rate FiO2 05/25/18 10:53 99 20 111/102 96 Room Air 05/25/18 10:22 104 05/25/18 10:02 36.8 102 28 136/73 97 Room Air 05/25/18 10:02 97 Room Air Physical Exam CONSTITUTIONAL/VITAL SIGNS: Reviewed / noted above. GENERAL: Non-toxic in appearance. INTEGUMENTARY: Warm, dry, and [place]. HEAD: Normocephalic. EYES: without scleral icterus or trauma. ENT/OROPHARYNX: clear and moist. LYMPHADENOPATHY/NECK: Is supple without lymphadenopathy or meningismus. RESPIRATORY: Lungs reveal scattered rhonchi and wheezes bilaterally. There is mild increased work of breathing. CARDIOVASCULAR: Regular rate and rhythm. GI/ABDOMEN: Soft and nontender. No organomegaly or pulsatile mass. No rebound or guarding. Normal bowel sounds. EXTREMITIES: Warm and well perfused. BACK: No CVA tenderness. NEUROLOGICAL: Intact without focal deficits. PSYCHIATRIC: normal affect. MUSCULOSKELETAL: Normally developed with good muscle tone. TRIAGE NURSING DOCUMENTATION REVIEWED. Medical Decision & Procedures ER Provider Diagnostic Interpretation: Radiology results as stated below per my review and radiologist interpretation: CHEST ONE VIEW PORTABLE HISTORY: 52 years-old Female sob acute shortness of breath COMPARISON: Chest radiograph 03/02/2018 TECHNIQUE: Portable AP view of the chest FINDINGS: Cardiomediastinal and hilar silhouettes are within normal limits. No pneumothorax, pleural effusion, focal airspace consolidation or overt pulmonary edema. Bones of the chest appear grossly intact. IMPRESSION: No acute process. The above report was generated using voice recognition software. It may contain grammatical, syntax or spelling errors. Electronically signed by: Aroldo Cruz M.D. 05/25/2018 10:41 AM Laboratory Results 05/25/18 10:00 Red Blood Count 4.16, Mean Corpuscular Volume 93.8, Mean Corpuscular Hemoglobin 30.8, Mean Corpuscular Hemoglobin Concent 32.8, Mean Platelet Volume 11.3, Neutrophils (%) (Auto) 56.7, Lymphocytes (%) (Auto) 31.0, Monocytes (%) (Auto) 8.9, Eosinophils (%) (Auto) 2.8, Basophils (%) (Auto) 0.3, Neutrophils # (Auto) 3.99, Lymphocytes # (Auto) 2.18, Monocytes # (Auto) 0.63, Eosinophils # (Auto) 0.20, Basophils # (Auto) 0.02 05/25/18 10:00 Test 05/25/18 10:00 White Blood Count 7.04 K/uL (4.8-10.8) Red Blood Count 4.16 M/uL (4.2-5.4) Hemoglobin 12.8 g/dL (12.0-16.0) Hematocrit 39.0 % (37-47) Mean Corpuscular Volume 93.8 fL (80-100) Mean Corpuscular Hemoglobin 30.8 pg (25-34) Mean Corpuscular Hemoglobin Concent 32.8 g/dl (32-36) Platelet Count 206 K/uL (130-400) Mean Platelet Volume 11.3 fL (7.4-10.4) Neutrophils (%) (Auto) 56.7 % Lymphocytes (%) (Auto) 31.0 % Monocytes (%) (Auto) 8.9 % Eosinophils (%) (Auto) 2.8 % Basophils (%) (Auto) 0.3 % Neutrophils # (Auto) 3.99 K/uL (1.4-6.5) Lymphocytes # (Auto) 2.18 K/uL (1.2-3.4) Monocytes # (Auto) 0.63 K/uL (0.11-0.59) Eosinophils # (Auto) 0.20 K/uL (0-0.5) Basophils # (Auto) 0.02 K/uL (0-0.2) RDW Standard Deviation 48.6 fL (36.4-46.3) RDW Coefficient of Variation 14.3 % (11.5-14.5) Immature Granulocyte % (Auto) 0.3 % Immature Granulocyte # (Auto) 0.02 K/uL (0.00-0.02) Prothrombin Time 10.4 SECONDS (9.0-12.0) Prothromb Time International Ratio 1.0 (0.9-1.1) Activated Partial Thromboplast Time 25.1 SECONDS (21.0-31.0) Partial Thromboplastin Ratio 1.0 Anion Gap 7.0 mmol/L (3-11) Est Creatinine Clear Calc Drug Dose 86.8 ml/min Estimated GFR () 75.4 Estimated GFR (Non- 65.1 BUN/Creatinine Ratio 11.1 (10-20) Calcium Level 9.1 mg/dl (8.5-10.1) Total Bilirubin 0.3 mg/dl (0.2-1) Aspartate Amino Transf (AST/SGOT) 21 U/L (15-37) Alanine Aminotransferase (ALT/SGPT) 24 U/L (12-78) Alkaline Phosphatase 112 U/L (45-117) Total Creatine Kinase 432 U/L (26-192) Creatine Kinase MB < 1.0 ng/ml (0.5-3.6) Creatine Kinase MB Ratio (0-3.0) Troponin I < 0.015 ng/ml (0-0.045) Pro-B-Type Natriuretic Peptide 47 pg/ml (0-900) Total Protein 7.5 gm/dl (6.4-8.2) Albumin 3.4 gm/dl (3.4-5.0) Globulin 4.1 gm/dl (2.5-4.0) Albumin/Globulin Ratio 0.8 (0.9-2) Laboratory results as stated above per my review. Medications Administered Medications (Trade) Dose Ordered Sig/Jaxon Route Start Time Stop Time Status Last Admin Dose Admin Albuterol/ Ipratropium (Duoneb) 3 ml NOW STAT INH 05/25/18 10:10 05/25/18 10:12 DC 05/25/18 10:15 3 ML Methylprednisolone Sodium Succinate (Solu-Medrol IV) 125 mg NOW STAT IV 05/25/18 10:10 05/25/18 10:12 DC 05/25/18 10:16 125 MG ECG Per My Interpretation Indication: SOB/dyspnea Rate (beats per minute): 92 Rhythm: normal sinus Findings: no ectopy, other (No ST elevation) ED Course 1006: Previous medical records were reviewed. The patient was evaluated in room A12B. A complete history and physical examination was performed. 1010: Solu-Medrol IV 125mg IV and Duoneb 3ml INH 1202: On reevaluation, the patient is resting comfortably. I discussed the results and findings with the patient. She verbalized agreement of the treatment plan. She was discharged home. Medical Decision the differential was considered includes acute myocardial infarction, acute coronary syndrome, myocarditis, pericarditis, pericardial effusions /tamponad, esophageal perforation, pulmonary embolism, pneumonia, pneumothorax, cardiomyopathy, congestive heart, anemia , COPD/asthma exacerbation. This is a 52-year-old female who presents to the ED with a chief complaint of cough for the past 3 days. She reports that it is a chronic dry cough. She does have a history of asthma and has inhalers and albuterol at home but they do not seem to be helping. She reports some shortness of breath associated with her coughing. She reports that she had a fever on the first day but has not had a fever since. Patient is afebrile here today. Her physical exam reveals scattered rhonchi and wheezes in the bilateral lungs. She has some mild increased work of breathing but her oxygen saturations are within normal limits on room air. A chest x-ray did not show acute process. CBC and complete metabolic panel was unremarkable. Glucose is 161. The patient was told the results of the test. She was treated with a DuoNeb treatment here and IV Solu-Medrol. On reassessment, she seems to be improved. She is felt to be stable for discharge. Prescription for prednisone provided. She will continue inhalers and albuterol nebulizers at home. Impression Primary Impression: Acute bronchiolitis Additional Impression: Asthma exacerbation Scribe Attestation The scribe's documentation has been prepared under my direction and personally reviewed by me in its entirety. I confirm that the note above accurately reflects all work, treatment, procedures, and medical decision making performed by me. Departure Information Dispostion Home / Self-Care Prescriptions Prednisone (Prednisone) 20 Mg Tab 2 TAB PO DAILY for 4 Days, #8 TAB Prov: Hiren Parsons D.O. 05/25/18 Referrals Nita Torres M.D. (PCP) Patient Instructions My [facility] [address] Additional Instructions Prednisone as prescribed. Continue albuterol inhalers and nebulizers at home. Follow-up with your doctor for further care and evaluation in 1-5 days. Return to the emergency department for worsening or new symptoms or any concerns. You have been examined and treated today on an emergency basis only. This is not a substitute for, or an effort to provide, complete comprehensive medical care. It is impossible to recognize and treat all injuries or illnesses in a single emergency department visit. It is therefore important that you follow up closely with your doctor. Call as soon as possible for an appointment. Problem Qualifiers
[2018-05-25 12:11] VITALS: BP 112/79; PULSE 113; O2SAT 94
== END 2018-05-25 12:11 | disposition home or self-care (01) ==
LOC: EDBD 09:52 → C.EDA 09:53
DX: J21.9 Acute bronchiolitis, unspecified (principal); J45.901 Unspecified asthma with (acute) exacerbation; E78.5 Hyperlipidemia, unspecified; I10 Essential (primary) hypertension; E11.9 Type 2 diabetes mellitus without complications; Z79.84 Long term (current) use of oral hypoglycemic drugs; Z79.02 Long term (current) use of antithrombotics/antiplatelets; Z79.82 Long term (current) use of aspirin; F32.9 Major depressive disorder, single episode, unspecified; Z86.73 Personal history of transient ischemic attack (TIA), and cerebral infarction without residual deficits; Z86.79 Personal history of other diseases of the circulatory system; Z87.891 Personal history of nicotine dependence; Z82.49 Family history of ischemic heart disease and other diseases of the circulatory system

== ENCOUNTER 2018-05-29 02:18 | Inpatient (IN) | payer OTHER ==
[2018-05-29] VITALS (19 sets, daily range): BP systolic 124–153; BP diastolic 77–91; PULSE 67–125; TEMP 36.4–37.1; O2SAT 93–100; BMI 43.2
[~2018-05-29] VITALS: Ht 167.6 cm; Wt 117.3 kg
[~2018-05-29 02:18] MED LIST changes: +ATOR-26 PO; -ATOR80TA PO; +CLOP1TAB15 PO; +DICL1GEL12 TOP; +METF-384 PO; -METF1000 PO; -MRLP17X PO; -NICO14DI5 TD; -NPR250 PO; -PANT1TAB4 PO; +PANT40TA PO; -PLV75 PO; +POLY335019 PO; +PRED20TA PO; -RBX500 PO; +TRAM-10 PO; -ULT50X PO; -VLTG EXT
[2018-05-29] MEDS ORDERED: MAGNESIUM SULFATE 1GM / D5W 1 GM BAG IV STA (02:24)
--- NOTE | 2018-05-29 02:29 | EMERGENCY ROOM VISIT NOTE ---
History Report prepared by Lisa: Nataly Ortega Under the Supervision of: Dr. Twin Hannon M.D. First contact with patient: 02:19 Chief Complaint: RESPIRATORY PROBLEMS Stated Complaint: ASTHMA EXCERBATION History of Present Illness The patient is a 52 year old female who presents to the Emergency Room with complaints of an episode of asthma exacerbation. She states she has persistently been having respiratory issues for 4 days and was prescribe Prednisone. She notes she has been getting worse since then. She denies any recent exposure to smoke or animal that could have triggered her asthma. She denies a history of low magnesium. She also complains of chest pain and a headache. She denies fevers, chills, or leg swelling. The patient has a history of diabetes and reports her sugars have been high. Source of History: patient Onset: 4 days ago Position: other (lungs) Timing: other (persistent) Associated Symptoms: + headache, + chest pain, No fevers, No chills Review of Systems See HPI for pertinent positives & negatives. A total of 10 systems reviewed and were otherwise negative. Past Medical & Surgical Medical Problems: (1) Acute coronary syndrome (2) Acute CVA (cerebrovascular accident) (3) Acute postoperative pain of right foot (4) Acute respiratory failure with hypoxemia (5) Acute respiratory failure with hypoxia (6) Anxiety State Nos (7) Asthma (8) Asthma exacerbation (9) Asthma, Unspecified (10) Asthmatic bronchitis (11) CAD (coronary artery disease) (12) CAD (coronary artery disease) (13) Chest pain (14) Chest pain radiating to arm (15) Chronic back pain (16) Depressive Disorder Nec (17) Diab Estrellita Wo Compl, Type Ii Or Unspec Type, Not Uncntrld (18) Diabetes (19) KLINE (dyspnea on exertion) (20) Exacerbation of chronic back pain (21) Exacerbation of chronic back pain (22) Fall (23) Hyperlipidemia Nec/Nos (24) Hypertension Nos (25) Ischemic cerebrovascular accident (CVA) of frontal lobe (26) Left elbow pain (27) Lower back pain (28) Lumbar Disc Displacement (29) Lumbosacral Neuritis Nos (30) Migraine (31) Non-hemorrhagic cerebrovascular accident (32) Osteoarthros Nos-Unspec (33) Posttraumatic Stress Disorder (34) Precordial chest pain (35) Received intravenous tissue plasminogen activator (t-PA) in emergency department (36) TIA (transient ischemic attack) (37) Unstable angina Surgical Problems: (1) Stented coronary artery Family History Diabetes mellitus Heart disease Hypertension Social History Smoking Status: Former Smoker Alcohol Use: none Drug Use: none Marital Status: single Housing Status: lives with family Occupation Status: disabled Current/Historical Medications Scheduled Aspirin (Aspirin Ec), 81 MG PO QAM Atorvastatin (Lipitor), 80 MG PO HS Clopidogrel (Plavix), 75 MG PO QAM Diclofenac Sodium (Topical) (Voltaren 1% Top Gel), 1 APPLN TOP 3XDQ4 Isosorbide Mononitrate (Isosorbide Mononitrate ER), 60 MG PO QAM Lisinopril (Zestril), 15 MG PO QAM Metformin Hcl (Glucophage), 1,000 MG PO BID Mometasone Furoate-Formoterol (Dulera 200/5 Mcg), 2 PUFFS INH BID Pantoprazole (Protonix), 40 MG PO QAM Paroxetine Hcl (Paxil), 1 TAB PO QAM Prednisone (Prednisone), 2 TAB PO DAILY Propranolol Hcl (Propranolol Hcl Er), 60 MG PO QAM Ranitidine HCl (Ranitidine HCl), 150 MG PO HS Scheduled PRN Albuterol Hfa (Ventolin Hfa), 2 PUFFS INH Q4-6H PRN for Shortness of Breath Ipratropium-Albuterol (Duoneb), 1 TREATMENT INH Q6H PRN for Shortness of Breath Nitroglycerin (Nitrostat), 0.4 MG UT UD PRN for Chest Pain Polyethylene Glycol 3350 (Miralax), 17 GM PO DAILY PRN for Constipation Promethazine Hcl (Phenergan), 12.5 MG PO BID PRN for Nausea Tramadol (Ultram), 50 MG PO Q4H PRN for Pain Allergies Coded Allergies: No Known Allergies (Unverified , 05/29/18) Physical Exam Vital Signs Date Time Temp Pulse Resp B/P (MAP) Pulse Ox O2 Delivery O2 Flow Rate FiO2 05/29/18 05:01 105 19 145/84 100 BiPAP 50 05/29/18 04:32 112 24 131/74 100 BiPAP 50 05/29/18 04:06 110 18 117/64 100 BiPAP 50 05/29/18 03:31 112 17 115/77 99 BiPAP 50 05/29/18 03:02 123 24 132/74 100 BiPAP 50 05/29/18 02:39 125 100 50 05/29/18 02:32 125 33 100 BiPAP/CPAP 50 05/29/18 02:29 125 05/29/18 02:20 96 Nasal Cannula 4.0 05/29/18 02:20 96 Nasal Cannula 4.0 05/29/18 02:20 37.1 134 18 128/98 96 Nasal Cannula 4.0 Physical Exam GENERAL: Patient is very unwell appearing and in severe distress. EYES: No scleral icterus, unremarkable pupils. ENT: Mucous membranes moist, no nasal congestion. NECK: No masses appreciated, no meningismus, trachea is midline. RESPIRATORY: Tachypneic, dyspneic, very tight lung sounds with diffuse inspiratory and expiratory wheezing. CARDIOVASCULAR: Tachycardic. No murmurs, rubs, gallops appreciated. GASTROINTESTINAL: Abdomen soft, nontender, no peritonitis. Bowel sounds positive. No masses appreciated. BACK: No midline tenderness, no CVA tenderness EXTREMITIES: Normal motion all extremities, no cyanosis, no edema. NEUROLOGIC: Alert and oriented, no acute motor or sensory deficits, no focal weakness, cranial nerves grossly intact. SKIN: No rash, no jaundice, no diaphoresis. Medical Decision & Procedures ER Provider Diagnostic Interpretation: X ray results are stated below per my interpretation: CHEST X-RAY: 1 VIEW: No infiltrate, no effusion, normal cardiac border. Slightly hyperinflated lungs. Laboratory Results 05/29/18 02:50 Red Blood Count 4.18, Mean Corpuscular Volume 93.8, Mean Corpuscular Hemoglobin 30.1, Mean Corpuscular Hemoglobin Concent 32.1, Mean Platelet Volume 11.5, Neutrophils (%) (Auto) 57.4, Lymphocytes (%) (Auto) 36.2, Monocytes (%) (Auto) 5.9, Eosinophils (%) (Auto) 0.1, Basophils (%) (Auto) 0.1, Neutrophils # (Auto) 9.33, Lymphocytes # (Auto) 5.89, Monocytes # (Auto) 0.96, Eosinophils # (Auto) 0.02, Basophils # (Auto) 0.02 05/29/18 02:50 Test 05/29/18 02:50 05/29/18 02:58 White Blood Count 16.27 K/uL (4.8-10.8) Red Blood Count 4.18 M/uL (4.2-5.4) Hemoglobin 12.6 g/dL (12.0-16.0) Hematocrit 39.2 % (37-47) Mean Corpuscular Volume 93.8 fL (80-100) Mean Corpuscular Hemoglobin 30.1 pg (25-34) Mean Corpuscular Hemoglobin Concent 32.1 g/dl (32-36) Platelet Count 253 K/uL (130-400) Mean Platelet Volume 11.5 fL (7.4-10.4) Neutrophils (%) (Auto) 57.4 % Lymphocytes (%) (Auto) 36.2 % Monocytes (%) (Auto) 5.9 % Eosinophils (%) (Auto) 0.1 % Basophils (%) (Auto) 0.1 % Neutrophils # (Auto) 9.33 K/uL (1.4-6.5) Lymphocytes # (Auto) 5.89 K/uL (1.2-3.4) Monocytes # (Auto) 0.96 K/uL (0.11-0.59) Eosinophils # (Auto) 0.02 K/uL (0-0.5) Basophils # (Auto) 0.02 K/uL (0-0.2) RDW Standard Deviation 50.1 fL (36.4-46.3) RDW Coefficient of Variation 14.7 % (11.5-14.5) Immature Granulocyte % (Auto) 0.3 % Immature Granulocyte # (Auto) 0.05 K/uL (0.00-0.02) Anion Gap 10.0 mmol/L (3-11) Est Creatinine Clear Calc Drug Dose 79.3 ml/min Estimated GFR () 67.1 Estimated GFR (Non- 57.9 BUN/Creatinine Ratio 18.5 (10-20) Estimated Average Glucose 180 mg/dl Hemoglobin A1c 7.9 % (4.5-5.6) Calcium Level 8.9 mg/dl (8.5-10.1) Magnesium Level 2.3 mg/dl (1.8-2.4) Total Creatine Kinase 293 U/L (26-192) Creatine Kinase MB 1.9 ng/ml (0.5-3.6) Creatine Kinase MB Ratio 0.6 (0-3.0) Troponin I < 0.015 ng/ml (0-0.045) Triglycerides Level 159 mg/dl (0-150) Cholesterol Level 154 mg/dl (0-200) HDL Cholesterol 48 mg/dl LDL Cholesterol, Calculated 74 mg/dl VLDL Cholesterol, Calculated 32 mg/dl Cholesterol/HDL Ratio 3.2 Procalcitonin < 0.05 ng/ml (0-0.5) Venous Blood pH 7.37 (7.36-7.41) Venous Blood Partial Pressure CO2 44 mmHg (38.0-50.0) Venous Blood Partial Pressure O2 67 mmHg Venous Blood HCO3 24 mmol/L Venous Blood Oxygen Saturation 91.4 % Venous Blood Base Excess -1.1 mEq/L Bedside Lactic Acid Venous 3.00 mmol/L (0.90-1.70) Laboratory results as reviewed by me. Medications Administered Medications (Trade) Dose Ordered Sig/Jaxon Route Start Time Stop Time Status Last Admin Dose Admin Magnesium Sulfate (Magnesium Sulfate 1gm / D5W) 2 gm NOW STAT IV 05/29/18 02:24 05/29/18 02:25 DC 05/29/18 03:07 2 GM Albuterol/ Ipratropium (Duoneb) 12 ml ONE ONCE INH 05/29/18 02:30 05/29/18 02:31 DC 05/29/18 02:31 12 ML Acetaminophen (Tylenol Tab) 1,000 mg NOW STAT PO 05/29/18 03:23 05/29/18 03:24 DC 05/29/18 03:29 1,000 MG Sodium Chloride 1,000 ml @ 999 mls/hr Q1H1M STAT IV 05/29/18 03:24 05/29/18 04:24 DC 05/29/18 03:28 999 MLS/HR Levofloxacin (Levaquin / D5W) 750 mg NOW ONCE IV 05/29/18 03:45 05/29/18 03:46 DC 05/29/18 04:49 750 MG ECG Per My Interpretation Indication: SOB/dyspnea Rate (beats per minute): 128 Rhythm: sinus tachycardia Findings: no acute ischemic change, no ectopy, other (QTC 449) ED Course 0220: The patient was evaluated in room A9B. A complete history and physical exam was performed. 0305: I rechecked the patient. Her heart rate is coming down and she is breathing more comfortably on BiPAP. She still has diffuse wheezing and tight lung sounds throughout. 0350: I rechecked the patient and she is feeling better. 399: I spoke with Dr. Jung [facility] Hospitalist. He will evaluate the patient for further management. Medical Decision Differential: Acute Asthma, Pneumonia, Pneumothorax, CHF, ACS, Pulmonary Embolism, Dissection, amongst other etiologies entertained. 52 yr old female with asthma who continues to smoke arrives in acute respiratory distress. She is in severe distress with very tight lung mohr and diffuse wheezing. Emergently placed on Bipap with continuous neb. IV obtained and cultures sent. Magnesium ordered. Held Solu-Medrol initially given she reported HIGH glucose and just took Prednisone tonight. Mild lactic acidosis I suspect is secondary to her work of breathing and wbc elevation likely prednisone related, however with her severe symptoms I did feel it prudent to at least start IV abx just in case. She is breathing much more comfortably on Bipap after short while but even just removing for a few moments she becomes severely dyspneic again. I do not feel this is PE given her history and the much higher likelihood this is asthma related. I do not find evidence of ACS, CHF, dissection. No clear evidence of pneumonia. Patient oxygen stable and HR coming down nicely while in ED. Admitted to hospitalist for further management. Medication Reconcilliation Current Medication List: was personally reviewed by me Blood Pressure Screening Patient's blood pressure: Normal blood pressure Consults Time Called: [phone] Consulting Physician: Dr. Jung [facility] Hospitalist Returned Call: [phone] Jung [facility] Hospitalist. He will evaluate the patient for further management. Impression Primary Impression: Acute asthma exacerbation Additional Impression: Respiratory failure Critical Care I have personally spent greater than 45 minutes of critical care time in the direct management of this patient. This was a life/limb threatening event. This includes time spent evaluating patient, direct bedside care, chart review, placing orders, interpretation of diagnostic studies, discussion with consultants, patient, and family members, as well as other required patient management activities. This 45 minutes is in excess of all separately billable procedures. Scribe Attestation The scribe's documentation has been prepared under my direction and personally reviewed by me in its entirety. I confirm that the note above accurately reflects all work, treatment, procedures, and medical decision making performed by me. Departure Information Dispostion Being Evaluated By Hospitalist Referrals Nita Torres M.D. (PCP) Patient Instructions My [facility] Problem Qualifiers
[2018-05-29] MEDS ORDERED: ALBUT/IPRATROP 3MG/0.5MG NEB 3 ML VIAL INH ONE (02:30)
[2018-05-29 03:11] LABS: HEMATOCRIT 39.2 % (37-47); HEMOGLOBIN 12.6 g/dL (12.0-16.0); MEAN CELL VOLUME 93.8 fL (80-100); MEAN CORPUSCULAR HEMOGLOBIN 30.1 pg (25-34); MEAN CORPUSCULAR HGB CONC 32.1 g/dl (32-36); MEAN PLATELET VOLUME 11.5 fL (7.4-10.4); PLATELET COUNT 253 K/uL (130-400); RED CELL DISTRIBUTION WIDTH CV 14.7 % (11.5-14.5); RED CELL DISTRIBUTION WIDTH SD 50.1 fL (36.4-46.3); WHITE BLOOD COUNT 16.27 K/uL (4.8-10.8)
[2018-05-29] MEDS ORDERED: ACETAMINOPHEN 500 MG TAB PO STA (03:23)
[2018-05-29] MEDS ORDERED: PRED20TA PO (03:24)
[2018-05-29] MEDS ORDERED: SODIUM CHLORIDE 0.9% 1000ML 1,000 ML IV STA (03:24)
[2018-05-29 03:30] LABS: BASO % 0.1 %; BASO ABS # 0.02 K/uL (0-0.2); EOS % 0.1 %; EOS ABS # 0.02 K/uL (0-0.5); IG# 0.05 K/uL (0.00-0.02); LYMPH % 36.2 %; LYMPH ABS # 5.89 K/uL (1.2-3.4); MONO % 5.9 %; MONO ABS # 0.96 K/uL (0.11-0.59); NEUT % 57.4 %; NEUT ABS # 9.33 K/uL (1.4-6.5)
[2018-05-29 03:34] LABS: BLOOD UREA NITROGEN 20 mg/dl (7-18); CALCIUM 8.9 mg/dl (8.5-10.1); CARBON DIOXIDE 22 mmol/L (21-32); CKMB 1.9 ng/ml (0.5-3.6); CREATININE 1.09 mg/dl (0.60-1.20); GLUCOSE 226 mg/dl (70-99); POTASSIUM 3.5 mmol/L (3.5-5.1); SODIUM 143 mmol/L (136-145)
[2018-05-29] MEDS ORDERED: LEVAQUIN 750MG / 150ML D5W IV ONE (03:45)
[2018-05-29] MEDS ORDERED: PROMETHAZINE HCL 25 MG TAB PO PRN (05:15)
[2018-05-29] MEDS ORDERED: ONDANSETRON INJ 2 MG/ML 2 ML VIAL IV PRN (05:15)
[2018-05-29] MEDS ORDERED: NITROGLYCERIN 0.4 MG SL PER TAB CHARGE SL PRN (05:15)
[2018-05-29] MEDS ORDERED: POLYETHYLENE (MIRALAX) 17 GM PACK PO PRN (05:15)
[2018-05-29] MEDS ORDERED: GLUCAGON FOR INJ 1 MG VIAL SQ PRN (06:00)
[2018-05-29] MEDS ORDERED: DEXTROSE 50% 50 ML SYR IV PRN (06:00)
[2018-05-29] MEDS ORDERED: CARBOHYDRATES FOR HYPOGLYCEMIA PO PRN (06:00)
[2018-05-29] MEDS ORDERED: GLUCOSE 10 TABS/TUBE PO PRN (06:00)
[2018-05-29] MEDS ORDERED: GLUCOSE 40% GEL 15 GM TUBE PO PRN (06:00)
--- NOTE | 2018-05-29 06:00 | History and Physical ---
History & Physical Date & Time of Service: May 29, 2018 at 05:47 Chief Complaint: Asthma Excerbation Primary Care Physician: Nita Torres M.D. History of Present Illness Source: patient, partner, hospital records The patient is a 52-year-old female initially seen at the emergency department 4 days ago for asthma exacerbation, sent home on oral prednisone, who unfortunately continued to worsen over the past 4 days and now presents to the emergency department with worsening shortness of breath. She feels chest congestion but is unable to clear with a cough. She has a mild frontal headache as well. She does live in the basement of an old house, and reports that she can smell her neighbors cat coming in through the ivey. There has been mold in her house recently as well. She has never had allergy testing performed. She has been using her home metered-dose inhalers and duo nebs as directed. Past Medical/Surgical History Medical Problems: (1) Abnormal EKG (2) Acute bronchiolitis (3) Acute coronary syndrome (4) Acute CVA (cerebrovascular accident) (5) Acute postoperative pain of right foot (6) Acute respiratory failure with hypoxemia (7) Acute respiratory failure with hypoxia (8) Anxiety State Nos (9) Asthma (10) Asthma exacerbation (11) Asthma, Unspecified (12) Asthmatic bronchitis (13) Bronchospasm (14) CAD (coronary artery disease) (15) CAD (coronary artery disease) (16) Chest pain (17) Chest pain radiating to arm (18) Chest pain syndrome (19) Chronic back pain (20) Contusion of multiple sites (21) Contusion of multiple sites (22) COPD exacerbation (23) Depressive Disorder Nec (24) Diab Estrellita Wo Compl, Type Ii Or Unspec Type, Not Uncntrld (25) Diabetes (26) KLINE (dyspnea on exertion) (27) Exacerbation of chronic back pain (28) Exacerbation of chronic back pain (29) Fall (30) Fall (31) Fall (32) Fall (33) Frontal headache (34) Fx sacrum/coccyx-closed (35) Headache (36) Headache (37) Hyperlipidemia Nec/Nos (38) Hypertension Nos (39) Hypoxia (40) Ischemic cerebrovascular accident (CVA) of frontal lobe (41) Knee pain (42) Left elbow pain (43) Left knee injury (44) Left shoulder pain (45) Left sided chest pain (46) Left-sided weakness (47) Lower back pain (48) Lumbar Disc Displacement (49) Lumbosacral Neuritis Nos (50) Migraine (51) Migraine (52) Non-hemorrhagic cerebrovascular accident (53) Nonspecific chest pain (54) Osteoarthros Nos-Unspec (55) Pharyngitis with viral syndrome (56) Posttraumatic Stress Disorder (57) Precordial chest pain (58) Precordial chest pain (59) Precordial chest pain (60) Received intravenous tissue plasminogen activator (t-PA) in emergency department (61) Sacral contusion (62) Substernal precordial chest pain (63) Substernal precordial chest pain (64) TIA (transient ischemic attack) (65) Unstable angina (66) Vertebral artery stenosis (67) Weakness Surgical Problems: (1) Stented coronary artery Family History Diabetes mellitus Heart disease Hypertension Social History Smoking Status: Never Smoker Smokeless Tobacco Use: No Alcohol Use: none Drug Use: none Marital Status: single Housing status: lives with significant other Occupational Status: disabled Immunizations History of Influenza Vaccine: Yes Influenza Vaccine Date: Aug 17, 2016 History of Tetanus Vaccine?: No History of Pneumococcal: Yes Pneumococcal Date: Sep 07, 2015 History of Hepatitis B Vaccine: No Allergies Coded Allergies: No Known Allergies (Unverified , 05/29/18) Home Medications Scheduled Aspirin (Aspirin Ec), 81 MG PO QAM Atorvastatin (Lipitor), 80 MG PO HS Clopidogrel (Plavix), 75 MG PO QAM Diclofenac Sodium (Topical) (Voltaren 1% Top Gel), 1 APPLN TOP [id number] Isosorbide Mononitrate (Isosorbide Mononitrate ER), 60 MG PO QAM Lisinopril (Zestril), 15 MG PO QAM Metformin Hcl (Glucophage), 1,000 MG PO BID Mometasone Furoate-Formoterol (Dulera 200/5 Mcg), 2 PUFFS INH BID Pantoprazole (Protonix), 40 MG PO QAM Paroxetine Hcl (Paxil), 1 TAB PO QAM Prednisone (Prednisone), 2 TAB PO DAILY Propranolol Hcl (Propranolol Hcl Er), 60 MG PO QAM Ranitidine HCl (Ranitidine HCl), 150 MG PO HS Scheduled PRN Albuterol Hfa (Ventolin Hfa), 2 PUFFS INH Q4-6H PRN for Shortness of Breath Ipratropium-Albuterol (Duoneb), 1 TREATMENT INH Q6H PRN for Shortness of Breath Nitroglycerin (Nitrostat), 0.4 MG UT UD PRN for Chest Pain Polyethylene Glycol 3350 (Miralax), 17 GM PO DAILY PRN for Constipation Promethazine Hcl (Phenergan), 12.5 MG PO BID PRN for Nausea Tramadol (Ultram), 50 MG PO Q4H PRN for Pain Review of Systems The patient denies chest pain, lower extremity swelling, sore throat, fevers, chills, sweats, nausea, vomiting, diarrhea, constipation, abdominal pain, pelvic pain, blood in urine or stool, dysuria, urinary frequency or urgency, lightheadedness , dizziness, memory loss, loss of consciousness, rash, abnormal bruising or bleeding, imbalance, focal or generalized weakness, numbness or tingling in arms or legs, generalized arthralgias or myalgias, back or neck pain, or night sweats. The review of systems is otherwise negative other than for that already noted above, and at least 10 systems have been reviewed. Physical Exam Vital Signs Date Time Temp Pulse Resp B/P (MAP) Pulse Ox O2 Delivery O2 Flow Rate FiO2 05/29/18 05:31 106 20 140/83 99 BiPAP 50 05/29/18 05:01 105 19 145/84 100 BiPAP 50 05/29/18 04:32 112 24 131/74 100 BiPAP 50 05/29/18 04:06 110 18 117/64 100 BiPAP 50 05/29/18 03:31 112 17 115/77 99 BiPAP 50 05/29/18 03:02 123 24 132/74 100 BiPAP 50 05/29/18 02:39 125 100 50 05/29/18 02:32 125 33 100 BiPAP/CPAP 50 05/29/18 02:29 125 05/29/18 02:20 96 Nasal Cannula 4.0 05/29/18 02:20 96 Nasal Cannula 4.0 05/29/18 02:20 37.1 134 18 128/98 96 Nasal Cannula 4.0 The patient is awake, alert and oriented 3, normocephalic and atraumatic, has BiPAP mask on, lying in bed and in mild to moderate respiratory distress. HEENT--PERRL, EOMI, mucous membranes and oropharynx dry. Neck--supple. No JVD. No bruits. Thyroid normal, trachea midline, no adenopathy. Heart--normal S1 and S2. No murmurs, rubs or gallops. Lungs--coarse breath sounds and wheezes bilaterally, right greater than left. Mild to moderate respiratory distress. No accessory muscle use. Abdomen--normal bowel sounds and soft. Nontender. Nondistended. Mildly tympanitic Extremities--no cyanosis or clubbing. No edema. There are good distal pulses b/ l. Dermatologic--normal skin turgor, normal color, no abnormal lymph nodes, no rash. Neurologic--cranial nerves II through XII grossly intact. Rheumatologic--normal range of motion. Psychiatric--normal affect. Diagnostics Laboratory Results Results Past 24 Hours Test 05/29/18 02:50 05/29/18 02:58 05/29/18 04:19 05/29/18 05:16 Range/Units White Blood Count 16.27 4.8-10.8 K/uL Red Blood Count 4.18 4.2-5.4 M/uL Hemoglobin 12.6 12.0-16.0 g/dL Hematocrit 39.2 37-47 % Mean Corpuscular Volume 93.8 80-100 fL Mean Corpuscular Hemoglobin 30.1 25-34 pg Mean Corpuscular Hemoglobin Concent 32.1 32-36 g/dl Platelet Count 253 130-400 K/uL Mean Platelet Volume 11.5 7.4-10.4 fL Neutrophils (%) (Auto) 57.4 % Lymphocytes (%) (Auto) 36.2 % Monocytes (%) (Auto) 5.9 % Eosinophils (%) (Auto) 0.1 % Basophils (%) (Auto) 0.1 % Neutrophils # (Auto) 9.33 1.4-6.5 K/uL Lymphocytes # (Auto) 5.89 1.2-3.4 K/uL Monocytes # (Auto) 0.96 0.11-0.59 K/uL Eosinophils # (Auto) 0.02 0-0.5 K/uL Basophils # (Auto) 0.02 0-0.2 K/uL RDW Standard Deviation 50.1 36.4-46.3 fL RDW Coefficient of Variation 14.7 11.5-14.5 % Immature Granulocyte % (Auto) 0.3 % Immature Granulocyte # (Auto) 0.05 0.00-0.02 K/uL Sodium Level 143 136-145 mmol/L Potassium Level 3.5 3.5-5.1 mmol/L Chloride Level 111 98-107 mmol/L Carbon Dioxide Level 22 21-32 mmol/L Anion Gap 10.0 3-11 mmol/L Blood Urea Nitrogen 20 7-18 mg/dl Creatinine 1.09 0.60-1.20 mg/dl Est Creatinine Clear Calc Drug Dose 79.3 ml/min Estimated GFR () 67.1 Estimated GFR (Non- 57.9 BUN/Creatinine Ratio 18.5 10-20 Random Glucose 226 70-99 mg/dl Calcium Level 8.9 8.5-10.1 mg/dl Magnesium Level 2.3 1.8-2.4 mg/dl Total Creatine Kinase 293 26-192 U/L Creatine Kinase MB 1.9 0.5-3.6 ng/ml Creatine Kinase MB Ratio 0.6 0-3.0 Troponin I < 0.015 0-0.045 ng/ml Venous Blood pH 7.37 7.36-7.41 Venous Blood Partial Pressure CO2 44 38.0-50.0 mmHg Venous Blood Partial Pressure O2 67 mmHg Venous Blood HCO3 24 mmol/L Venous Blood Oxygen Saturation 91.4 % Venous Blood Base Excess -1.1 mEq/L Bedside Lactic Acid Venous 3.00 0.90-1.70 mmol/L Microbiology Results 05/29/18 Blood Culture, Received Pending 05/29/18 Blood Culture, Received Pending Impression Assessment and Plan Acute respiratory failure with hypoxia and hypercapnia/asthma exacerbation-- The patient will be admitted to a monitored bed. Levofloxacin 500 mg IV every 24 hours Xopenex/Atrovent nebulizers every 6 hours while awake and every 2 hours as needed. Pulmicort Respules 0.5 mg inhaled twice daily Solu-Medrol 40 mg IV every 6 hours. Guaifenesin extended release 600 mg by mouth twice a day BiPAP / at 60%, with decreased to 50%, then repeat ABG, and follow serial ABGs. Sputum Gram stain and culture. RAST testing for Zone 3 allergens and basic food profile. Consult pulmonology. CAD/stent to coronary artery/cerebrovascular disease/hypertension-- Continue aspirin 81 mg every morning, clopidogrel 75 mg every morning, isosorbide mononitrate ER 60 mg every morning, propranolol ER 60 mg every morning. Hold lisinopril 15 mg every morning. Diabetes mellitus--hold metformin 1000 mg p.o. twice daily. Placed on Accu-Cheks before meals and at bedtime with NovoLog coverage per scale. Follow closely while on Solu-Medrol. Check hemoglobin A1c Hyperlipidemia-- Continue atorvastatin 80 mg at bedtime. Check a fasting lipid panel GERD-- Continue pantoprazole 40 mg every morning and ranitidine at 50 mg in evening. Anxiety-- Continue paroxetine daily every morning. Advanced Directives Existing Advance Directive: No Existing Living Will: No Existing Power of Swimming Coach Or Instructor: No Resuscitation Status VTE Prophylaxis Will order VTE Prophylaxis: Yes Social Service Consult None Apply
[2018-05-29] MEDS: TRAMADOL HCL 50 MG TAB PO PRN ×2 (06:17→17:07)
--- NOTE | 2018-05-29 06:55 | DIAGNOSTIC IMAGING REPORT ---
CHEST ONE VIEW PORTABLE CLINICAL HISTORY: Shortness of breath. COMPARISON STUDY: Chest CT March 02, 2018 and chest radiograph May 25, 2018. FINDINGS: Lung volumes are normal. No pneumothorax or pleural effusion is noted. There is no consolidation or evidence for pulmonary edema. Cardiac size is normal. Mediastinal contours are normal. IMPRESSION: No acute cardiopulmonary findings. Electronically signed by: Giuliano Juares M.D. 05/29/2018 6:54 AM Dictated Date/Time: 05/29/2018 6:53 AM
[2018-05-29] MEDS: LEVALBUTEROL 1.25MG/0.5ML NEB INH SCH ×3 (07:04→19:31)
[2018-05-29] MEDS: IPRATROPIUM BROMIDE NEB SOLN 0.02% 2.5 ML VIAL INH SCH ×3 (07:04→19:31)
[2018-05-29 07:21] LABS: HEMOGLOBIN A1C 7.9 % (4.5-5.6)
[2018-05-29] MEDS ORDERED: BUDESONIDE 0.5 MG/2 ML VIAL (PULMICORT) INH SCH (08:00)
[2018-05-29] MEDS: ACETAMINOPHEN 325 MG TAB PO PRN (08:52)
[2018-05-29] MEDS: GUAIFENESIN 600 MG TABCR PO SCH ×2 (08:52→20:42)
[2018-05-29] MEDS: CLOPIDOGREL BISULFATE 75 MG TAB PO SCH (08:53)
[2018-05-29] MEDS: PAROXETINE 20 MG TAB PO SCH (08:53)
[2018-05-29] MEDS: ISOSORBIDE MONONITRATE 60 MG TABCR PO SCH (08:53)
[2018-05-29] MEDS: PROPRANOLOL HCL 60 MG LA CAP PO SCH (08:53)
[2018-05-29] MEDS: PANTOprazole SOD 40 MG TAB PO SCH (08:53)
[2018-05-29] MEDS: ASPIRIN 81 MG ECTAB PO SCH (08:53)
[2018-05-29] MEDS: METHYLPREDNISOLONE IV 40 MG in SYRINGE 0 ML IV SCH ×3 (08:53→20:02)
[2018-05-29] MEDS: NSS + 20MEQ KCL 1000ML 1,000 ML IV SCH ×2 (08:54→20:01)
[2018-05-29] MEDS: HEPARIN SOD 5000 UNIT/0.5 ML CARP SQ SCH ×3 (08:58→22:16)
[2018-05-29] MEDS ORDERED: MoRPHine SULFATE 2 MG/ML CARP IV STA (08:59)
[2018-05-29] MEDS ORDERED: LISINOPRIL 5 MG TAB PO SCH (09:00)
[2018-05-29] MEDS ORDERED: LEVALBUTEROL/IPRATROPIUM NEB INH SCH (09:00)
[2018-05-29] MEDS: DICLOFENAC SOD 1% GEL 100 GM TUBE EXT SCH ×3 (10:06→16:15)
[2018-05-29] MEDS: INSULIN ASPART 100 UNITS/ML 3 ML PEN SC SCH ×4 (10:08→20:48)
--- NOTE | 2018-05-29 19:39 | Pulmonary Consultation ---
History General Date of Service: May 29, 2018. Stated Complaint: Acute Asthma Excerb.,Acute Resp Failure W/ Hypoxia HPI Dear Dr. Mason, Thank you for your kind referral Mrs. Islas to pulmonary service. This is 52- year-old female with history of COPD, active smoker, also history of asthma since teenage years, presented to the hospital 6 days ago with increasing shortness of breath and cough while she continues to smoke, she was treated with prednisone p.o. in the ER and sent home. The patient returned to the hospital with increasing shortness of breath and cough with sputum production according to her it was colored. The patient did not have any chest pain, hemoptysis, postnasal drip. She did not have any fever or constitutional symptoms. No sick contact. She does not have any pets in the house or birds but she does have a neighbor's pets who come through her corridor according to her. She is active smoker and she lives with a house full of smokers as well including her son and her significant other. The patient did not quit and not willing to quit at this point. She has a nebulizer and an inhaler and she does not use oxygen. The patient did not have any increased swelling in her lower extremities. She does have orthopnea but no nocturnal symptoms. She does not measure her peak flow. Historian: patient, other (Records) Review of Systems Constitutional: denies: no symptoms, as stated in HPI, chills, diaphoresis, fever, malaise, weakness, weight gain, weight loss, other ENT: denies: no symptoms, as stated in HPI, ear pain, ear discharge, loss of hearing, tinnitus, nasal pain, nasal congestion, rhinorrhea, epistaxis, sore throat, stridor, throat swelling, mouth pain, mouth swelling, dental pain, gum swelling, other Respiratory: reports: cough, shortness of breath, stridor, wheezing Gastrointestinal: denies: no symptoms, as stated in HPI, abdominal pain, constipation, diarrhea, nausea, vomiting, hematemesis, hematochezia, hemorrhoids , anorexia, appetite changes, stool changes, flatulence, belching, food intolerance, jaundice, other Genitourinary - Female: denies: no symptoms, as stated in HPI, dysmenorrhea, dysuria, hematuria, hesitancy, menorrhagia, metrorrhagia, , rash, urinary frequency, urinary incontinence, urinary retention, urinary urgency, vaginal bleeding, vaginal discharge, vaginal itching, vulvadynia, other Musculoskeletal: denies: no symptoms, as stated in HPI, arthralgias, neck pain , back pain, joint pain, joint swelling, deformity, myalgias, muscle spasms, other Integumentary: denies: no symptoms, as stated in HPI, rash, redness, warmth, itching, dryness, lesions, lumps, change in color, change in hair/nails, other Neurologic: denies: no symptoms, as stated in HPI, headache, dizziness, general weakness, focal weakness, numbness, tingling, paresthesia, pre-existing deficit, tremors, tics, vertigo, seizure, lethargy, memory loss, other Psychiatric: reports: anxiety Endocrine: denies: no symptoms, as stated in HPI, cold intolerance, heat intolerance, hair changes, goiter, polydipsia, polyuria, skin changes, other Allergic / Immunologic: denies: no symptoms, as stated in HPI, eczema, environmental allergies, frequent infections, hives, multiple food allergies, seasonal allergies, pet sensitivities, poor healing, prolonged convalescence, other Past Medical History Past Medical History: Extensive past medical history significant for COPD, asthma, active smoking, migraine, history of TIA in the past, coronary artery disease, hypertension, hyperlipidemia, anxiety. Family History Diabetes mellitus Heart disease Hypertension Social History Hx Tobacco Use In Past Year?: No Smoking Status: Former Smoker Marital status: single Housing status: lives with significant other Occupational Status: disabled Immunizations History of Influenza Vaccine: Yes Influenza Vaccine Date: Aug 17, 2016 History of Tetanus Vaccine?: No History of Pneumococcal: Yes Pneumococcal Date: Sep 07, 2015 History of Hepatitis B Vaccine: No History of MDRO History of MDRO: No Allergies Coded Allergies: No Known Allergies (Unverified , 05/29/18) Current Medications Reported Home Medications Medications Dose Route/Sig Max Daily Dose Days Date Category Dose Instructions Prednisone 20 Mg Tab 2 Tab PO DAILY 05/29/18 Reported Ultram (Tramadol HCl) 50 Mg Tab 50 Mg PO Q4H PRN 05/25/18 Reported Miralax (Polyethylene Glycol 3350) 1 Pow Pow 17 Gm PO DAILY PRN 05/25/18 Reported Protonix (Pantoprazole Sodium) 40 Mg Tab 40 Mg PO QAM 05/25/18 Reported Glucophage (Metformin Hcl) 1,000 Mg Tab 1,000 Mg PO BID 05/25/18 Reported Voltaren 1% Top Gel (Diclofenac Sodium (Topical)) 1 % Gel 1 Appln TOP [id number] 05/25/18 Reported Plavix (Clopidogrel Bisulfate) 75 Mg Tab 75 Mg PO QAM 05/25/18 Reported Lipitor (Atorvastatin Calcium) 80 Mg Tab 80 Mg PO HS 05/25/18 Reported Phenergan (Promethazine HCl) 25 Mg Tab 12.5 Mg PO BID PRN 03/02/18 Reported Propranolol Hcl Er (Propranolol Hcl) 80 Mg Cap 60 Mg PO QAM 03/02/18 Reported Paxil (Paroxetine Hcl) 40 Mg Tab 1 Tab PO QAM 03/02/18 Reported Zestril (Lisinopril) 5 Mg Tab 15 Mg PO QAM 05/04/17 Reported Duoneb (Ipratropium-Albuterol) 3 Ml Nebu 1 Treatment INH Q6H PRN 12/14/16 Reported Aspirin Ec (Aspirin) 81 Mg Tab 81 Mg PO QAM 12/14/16 Reported Ranitidine HCl 150 Mg Tab 150 Mg PO HS 12/14/16 Reported Dulera 200/5 Mcg (Mometasone Furoate-Formoterol) 1 Aer Aer 2 Puffs INH BID 12/14/16 Reported Nitrostat (Nitroglycerin) 0.4 Mg Tab 0.4 Mg UT UD PRN 12/14/[address] ONE TABLET UNDER THE TONGUE IF NEEDED FOR CHEST PAIN Isosorbide Mononitrate ER (Isosorbide Mononitrate) 60 Mg Tabcr 60 Mg PO QAM 12/14/16 Reported Ventolin Hfa (Albuterol) 200 Puffs/00674 Mcg Aers 2 Puffs INH Q4-6H PRN 07/18/16 Reported Physical Physical Exam Vital Signs: Date Time Temp Pulse Resp B/P (MAP) Pulse Ox O2 Delivery O2 Flow Rate FiO2 05/29/18 18:56 36.4 80 23 137/88 (104) 93 Oxymask 4.0 05/29/18 18:04 67 94 30 05/29/18 17:03 37.1 83 20 153/91 (111) 97 Nasal Cannula 6.0 8/7/18 16:00 97 BiPAP 30 05/29/18 14:14 87 99 40 05/29/18 14:12 87 18 99 BiPAP/CPAP 40 05/29/18 12:12 36.6 84 20 135/90 (105) 99 CPAP 40 05/29/18 08:00 97 CPAP 4.0 40 05/29/18 07:47 36.5 100 18 124/77 (93) 97 CPAP 40 05/29/18 07:07 100 99 50 05/29/18 07:05 100 18 99 BiPAP/CPAP 50 05/29/18 06:24 36.4 100 22 125/80 100 BiPAP 05/29/18 05:51 106 20 140/83 99 05/29/18 05:31 106 20 140/83 99 BiPAP 50 05/29/18 05:01 105 19 145/84 100 BiPAP 50 05/29/18 04:32 112 24 131/74 100 BiPAP 50 05/29/18 04:06 110 18 117/64 100 BiPAP 50 05/29/18 03:31 112 17 115/77 99 BiPAP 50 05/29/18 03:02 123 24 132/74 100 BiPAP 50 05/29/18 02:39 125 100 50 05/29/18 02:32 125 33 100 BiPAP/CPAP 50 05/29/18 02:29 125 05/29/18 02:20 96 Nasal Cannula 4.0 05/29/18 02:20 96 Nasal Cannula 4.0 05/29/18 02:20 37.1 134 18 128/98 96 Nasal Cannula 4.0 General Appearance: NO APPARENT DISTRESS Eyes: EOMI ENT: NORMAL THROAT EXAM, other (Stridor) Neck: TRACHEA MIDLINE Respiratory: rhonchi, wheezing Cardiovasular: REGULAR RATE/RHYTHM, NORMAL S1S2, NO M/G/R Abdomen: NO GUARDING Lower Extremities: NO EDEMA Neuro: ALERT, ORIENTED x 3, NORMAL MOTOR EXAM, NORMAL SENSATION Psychiatric: anxious Diagnostics Labs Results Past 24 Hours Test 05/29/18 02:50 05/29/18 02:58 05/29/18 05:51 05/29/18 07:29 Range/Units White Blood Count 16.27 4.8-10.8 K/uL Red Blood Count 4.18 4.2-5.4 M/uL Hemoglobin 12.6 12.0-16.0 g/dL Hematocrit 39.2 37-47 % Mean Corpuscular Volume 93.8 80-100 fL Mean Corpuscular Hemoglobin 30.1 25-34 pg Mean Corpuscular Hemoglobin Concent 32.1 32-36 g/dl Platelet Count 253 130-400 K/uL Mean Platelet Volume 11.5 7.4-10.4 fL Neutrophils (%) (Auto) 57.4 % Lymphocytes (%) (Auto) 36.2 % Monocytes (%) (Auto) 5.9 % Eosinophils (%) (Auto) 0.1 % Basophils (%) (Auto) 0.1 % Neutrophils # (Auto) 9.33 1.4-6.5 K/uL Lymphocytes # (Auto) 5.89 1.2-3.4 K/uL Monocytes # (Auto) 0.96 0.11-0.59 K/uL Eosinophils # (Auto) 0.02 0-0.5 K/uL Basophils # (Auto) 0.02 0-0.2 K/uL RDW Standard Deviation 50.1 36.4-46.3 fL RDW Coefficient of Variation 14.7 11.5-14.5 % Immature Granulocyte % (Auto) 0.3 % Immature Granulocyte # (Auto) 0.05 0.00-0.02 K/uL Sodium Level 143 136-145 mmol/L Potassium Level 3.5 3.5-5.1 mmol/L Chloride Level 111 98-107 mmol/L Carbon Dioxide Level 22 21-32 mmol/L Anion Gap 10.0 3-11 mmol/L Blood Urea Nitrogen 20 7-18 mg/dl Creatinine 1.09 0.60-1.20 mg/dl Est Creatinine Clear Calc Drug Dose 79.3 ml/min Estimated GFR () 67.1 Estimated GFR (Non- 57.9 BUN/Creatinine Ratio 18.5 10-20 Random Glucose 226 70-99 mg/dl Estimated Average Glucose 180 mg/dl Hemoglobin A1c 7.9 4.5-5.6 % Calcium Level 8.9 8.5-10.1 mg/dl Magnesium Level 2.3 1.8-2.4 mg/dl Total Creatine Kinase 293 26-192 U/L Creatine Kinase MB 1.9 0.5-3.6 ng/ml Creatine Kinase MB Ratio 0.6 0-3.0 Troponin I < 0.015 0-0.045 ng/ml Triglycerides Level 159 0-150 mg/dl Cholesterol Level 154 0-200 mg/dl HDL Cholesterol 48 mg/dl LDL Cholesterol, Calculated 74 mg/dl VLDL Cholesterol, Calculated 32 mg/dl Cholesterol/HDL Ratio 3.2 Procalcitonin < 0.05 0-0.5 ng/ml Venous Blood pH 7.37 7.36-7.41 Venous Blood Partial Pressure CO2 44 38.0-50.0 mmHg Venous Blood Partial Pressure O2 67 mmHg Venous Blood HCO3 24 mmol/L Venous Blood Oxygen Saturation 91.4 % Venous Blood Base Excess -1.1 mEq/L Bedside Lactic Acid Venous 3.00 0.90-1.70 mmol/L Lactic Acid Level 2.1 0.4-2.0 mmol/L Bedside Glucose 173 70-90 mg/dl Test 05/29/18 11:32 05/29/18 16:19 Range/Units Bedside Glucose 144 232 70-90 mg/dl Microbiology Results 05/29/18 Blood Culture, Received Pending 05/29/18 Blood Culture, Received Pending 05/29/18 Gram Stain - Final, Resulted 05/29/18 Sputum Culture, Resulted Pending Diagnostic Radiology Labs were reviewed personally which showed leukocytosis, chest x-ray was completely normal but hyperinflated. Impression Assessment and Plan 1. COPD exacerbation rather than just asthma, the patient does have a fixed defect, she is active smoker. 2. Nicotine addiction. 3. Anxiety is contributing to her upper airway wheezing, stridor which likely representing vocal cord dysfunction as well. 4. I do not see any infectious process at this point. Plan: 1. Continue Solu-Medrol 40 mg IV every 6 hours. 2. The patient needs education about her illness including quitting smoking and measuring her peak flow as well as be yarsani about her inhalers. 3. Discontinue Pulmicort while the patient is on high-dose systemic steroids. 4. Continue current bronchodilators. 5. Add Xanax 0.25 mg p.o. every 8 hours. 6. The patient is on propranolol which has the propensity to cause bronchospasm. The patient takes it due to migraine. May seek alternative. 7. Continue with oxygen, ambulate the patient, will follow daily. Thank you
[2018-05-29] MEDS ORDERED: ALPRAZOLAM 0.25 MG TAB PO SCH (19:45)
[2018-05-29] MEDS: ATORVASTATIN 40 MG TAB PO SCH (20:42)
[2018-05-29] MEDS: RANITIDINE HCL 150 MG TAB PO SCH (20:43)
[2018-05-29] MEDS: IPRATROPIUM BROMIDE NEB SOLN 0.02% 2.5 ML VIAL INH PRN (22:44)
[2018-05-29] MEDS: LEVALBUTEROL 1.25MG/0.5ML NEB INH PRN (22:45)
[2018-05-30] VITALS (14 sets, daily range): BP systolic 138–174; BP diastolic 74–99; PULSE 71–86; TEMP 36.4–37.1; O2SAT 93–97; BMI 43.0
[2018-05-30] MEDS: IPRATROPIUM BROMIDE NEB SOLN 0.02% 2.5 ML VIAL INH SCH ×4 (01:36→19:39)
[2018-05-30] MEDS: LEVALBUTEROL 1.25MG/0.5ML NEB INH SCH ×4 (01:36→19:39)
[2018-05-30] MEDS: METHYLPREDNISOLONE IV 40 MG in SYRINGE 0 ML IV SCH ×4 (01:47→22:10)
[2018-05-30] MEDS ORDERED: COUGH DROP (SUGAR FREE) LOZ 24 LOZ/1 BOX LOZ ONE (03:23)
[2018-05-30] MEDS ORDERED: COUGH DROP (SUGAR FREE) LOZ 24 LOZ/1 BOX LOZ PRN (03:30)
[2018-05-30] MEDS: LEVOFLOXACIN / D5W 500 MG in PREMIXED IN D5W 100 ML IV SCH (05:21)
[2018-05-30] MEDS: ALPRAZOLAM 0.25 MG TAB PO SCH ×3 (05:21→22:09)
[2018-05-30] MEDS: NSS + 20MEQ KCL 1000ML 1,000 ML IV SCH (05:21)
[2018-05-30] MEDS: HEPARIN SOD 5000 UNIT/0.5 ML CARP SQ SCH ×3 (05:26→22:12)
[2018-05-30 06:26] LABS: BASO % 0.1 %; BASO ABS # 0.01 K/uL (0-0.2); HEMATOCRIT 37.2 % (37-47); HEMOGLOBIN 11.9 g/dL (12.0-16.0); IG# 0.07 K/uL (0.00-0.02); LYMPH % 16.6 %; LYMPH ABS # 2.79 K/uL (1.2-3.4); MEAN CELL VOLUME 93.7 fL (80-100); MEAN PLATELET VOLUME 11.7 fL (7.4-10.4); MONO % 1.8 %; MONO ABS # 0.31 K/uL (0.11-0.59); NEUT % 81.1 %; NEUT ABS # 13.67 K/uL (1.4-6.5); PLATELET COUNT 225 K/uL (130-400); RED CELL DISTRIBUTION WIDTH CV 14.2 % (11.5-14.5); RED CELL DISTRIBUTION WIDTH SD 48.9 fL (36.4-46.3); WHITE BLOOD COUNT 16.85 K/uL (4.8-10.8)
[2018-05-30 06:33] LABS: INR 0.9 (0.9-1.1); PTT PATIENT 23.1 SECONDS (21.0-31.0)
[2018-05-30 07:02] LABS: CALCIUM 8.1 mg/dl (8.5-10.1); CREATININE 0.85 mg/dl (0.60-1.20); POTASSIUM 4.4 mmol/L (3.5-5.1)
[2018-05-30] MEDS: ASPIRIN 81 MG ECTAB PO SCH (08:20)
[2018-05-30] MEDS: CLOPIDOGREL BISULFATE 75 MG TAB PO SCH (08:20)
[2018-05-30] MEDS: PAROXETINE 20 MG TAB PO SCH (08:21)
[2018-05-30] MEDS: GUAIFENESIN 600 MG TABCR PO SCH ×2 (08:21→20:46)
[2018-05-30] MEDS: PROPRANOLOL HCL 60 MG LA CAP PO SCH (08:21)
[2018-05-30] MEDS: ISOSORBIDE MONONITRATE 60 MG TABCR PO SCH (08:21)
[2018-05-30] MEDS: DICLOFENAC SOD 1% GEL 100 GM TUBE EXT SCH ×3 (08:21→16:42)
[2018-05-30] MEDS: PANTOprazole SOD 40 MG TAB PO SCH (08:21)
[2018-05-30] MEDS: INSULIN ASPART 100 UNITS/ML 3 ML PEN SC SCH ×4 (08:27→20:51)
[2018-05-30] MEDS ORDERED: LANTUS PER UNIT CHARGE SQ ONE (11:15)
[2018-05-30] MEDS: ACETAMINOPHEN 325 MG TAB PO PRN (12:31)
[2018-05-30] MEDS: TRAMADOL HCL 50 MG TAB PO PRN ×2 (14:18→20:48)
--- NOTE | 2018-05-30 15:17 | Pharmacy Progress Note ---
Glycemic Control: Initial Note Date of Service May 30, 2018. Scope Glycemic Pharmacist to provide recommendations to improve glycemic control (all ICU patients are screened for hyperglycemia and treatment recommendations are provided per protocol). Pt identified with hyperglycemia (BSG above 180) [place] [facility] [place] [facility] Subjective The patient is a 52 year old female admitted on May 29, 2018 at 05:14 for acute asthma exacerbation w hypoxia. Patient's past medical history is significant for type 2 diabetes mellitus. Objective Height (Feet): 5 Height (Inches): 6.00 Weight (Kilograms): 120.800 Accuchecks BSG (last 24hrs): Test 05/29/18 16:19 05/29/18 20:40 05/30/18 05:40 05/30/18 07:24 Bedside Glucose 232 mg/dl (70-90) 329 mg/dl (70-90) 260 mg/dl (70-90) Random Glucose 270 mg/dl (70-99) Test 05/30/18 11:18 Bedside Glucose 224 mg/dl (70-90) Laboratory Data (last 24hrs) Test 05/30/18 05:40 Anion Gap 7.0 mmol/L BUN/Creatinine Ratio 18.5 Blood Urea Nitrogen 16 mg/dl Creatinine 0.85 mg/dl Potassium Level 4.4 mmol/L Sodium Level 136 mmol/L White Blood Count 16.85 K/uL Red Blood Count 3.97 M/uL Hemoglobin 11.9 g/dL Hematocrit 37.2 % Mean Corpuscular Volume 93.7 fL Mean Corpuscular Hemoglobin 30.0 pg Mean Corpuscular Hemoglobin Concent 32.0 g/dl Platelet Count 225 K/uL Mean Platelet Volume 11.7 fL Neutrophils (%) (Auto) 81.1 % Lymphocytes (%) (Auto) 16.6 % Monocytes (%) (Auto) 1.8 % Eosinophils (%) (Auto) 0.0 % Basophils (%) (Auto) 0.1 % Neutrophils # (Auto) 13.67 K/uL Lymphocytes # (Auto) 2.79 K/uL Monocytes # (Auto) 0.31 K/uL Eosinophils # (Auto) 0.00 K/uL Basophils # (Auto) 0.01 K/uL Recent Pertinent Medications Outpatient Anti-diabetic Regimen: * Metformin 1gm PO BID * A1c 7.9% The patient is currently receiving: * Basal Insulin: None * Correctional Insulin: Novolog Correction per scale ACHS Goal Range: Low 110 mg/dL - High 150 mg/dL Correction Factor: 30 mg/dL/unit * Prandial Insulin: Per carb ratio of 1 unit per 10 grams CHO consumed * Oral Agents: None currently Risk Factors for Insulin Resistance: * Steroids: Solu-Medrol 40mg IV Q 8 hours * Infection: Levofloxacin Assessment & Plan ASSESSMENT: * Type 2 diabetic admitted w/ resp failure secondary to COPD / asthma exac * Glycemic control has been poor for > 24 hrs with all BSGs greater than 180 * Poor glycemic control likely attributed to high dose IV steroids and lack of basal insulin * Would recommend adding basal insulin and adjusting rapid acting bolus regimen to allow for larger doses; would recommend basing doses on wt and stress level of 2 to start RECOMMEND: * Holding outpatient oral diabetes medications * Start Lantus 20 units SQ BID - 1st dose STAT * Changing correction factor 20 mg/dl/unit * Changing carb ratio 1 unit per 7 grams CHO consumed * Changing goal range Low 110 mg/dL - High 140 mg/dL * Reassess insulin doses with each step down in steroid dose Pharmacy will continue to provide recommendations in EMR while patient admitted to 1E/2E. Physicians may request pharmacy to continue to follow patient when transferred out of the ICU and/or consult pharmacy to write glycemic control orders * Please note that the plan above was derived based on current level of insulin resistance and hospital stress. These recommendations are appropriate for inpatient admission only. Plan of care upon discharge will need to be reassessed to avoid potential outpatient hypo/hyperglycemia. Thank you.
--- NOTE | 2018-05-30 16:07 | Progress Note ---
Subjective Date of Service: May 30, 2018. Subjective Pt evaluation today including: conversation w/ patient, physical exam, lab review, conversation w/ [facility] adf consultant, review of inpatient medication list Pain: no pain PO Intake: adequate Voiding: no voiding problems patient breathing better today, says that the BIPAP provides her with a lot of relief discussed that she needed to come off positive pressure support, she understood she admitted to snoring at home, tired a lot during the day, falls asleep while sitting on couch she is obese, large neck circumference, discussed that sleep apnea is a real possibility encouraged her to get a sleep study as outpatient reviewed labs, sugars running high due to steroids discussed case with Dr. Brown, appreciate his recommendations Problem List Medical Problems: (1) Abnormal EKG Status: Acute (2) Acute asthma exacerbation Status: Acute (3) Acute bronchiolitis Status: Acute (4) Anxiety State Nos Status: Chronic (5) Asthma, Unspecified Status: Chronic (6) Bronchospasm Status: Acute (7) CAD (coronary artery disease) Status: Chronic (8) Contusion of multiple sites Status: Acute (9) Depressive Disorder Nec Status: Chronic (10) Diab Estrellita Wo Compl, Type Ii Or Unspec Type, Not Uncntrld Status: Chronic (11) Diabetes Status: Chronic (12) Fall Status: Acute (13) Fall Status: Acute (14) Fx sacrum/coccyx-closed Status: Acute (15) Headache Status: Acute (16) Hyperlipidemia Nec/Nos Status: Chronic (17) Hypertension Nos Status: Chronic (18) Hypoxia Status: Acute (19) Knee pain Status: Acute (20) Left knee injury Status: Acute (21) Left sided chest pain Status: Acute (22) Lower back pain Status: Chronic (23) Lumbar Disc Displacement Status: Chronic (24) Lumbosacral Neuritis Nos Status: Chronic (25) Migraine Status: Chronic (26) Migraine Status: Acute (27) Nonspecific chest pain Status: Acute (28) Osteoarthros Nos-Unspec Status: Chronic (29) Posttraumatic Stress Disorder Status: Chronic (30) Precordial chest pain Status: Acute (31) Precordial chest pain Status: Acute (32) Respiratory failure Status: Acute (33) Sacral contusion Status: Acute (34) Substernal precordial chest pain Status: Acute (35) Substernal precordial chest pain Status: Acute (36) Weakness Status: Acute Review of Systems Constitutional: + weakness, + fatigue Respiratory: + cough, + shortness of breath All Other Systems: Reviewed and Negative Medications Current Inpatient Medications Medications (Trade) Dose Ordered Sig/Jaxon Route Start Time Stop Time Status Last Admin Dose Admin Heparin Sodium (Porcine) (Heparin Sq 5000 Unit/0.5ml) 5,000 unit Q8 SQ 05/29/18 07:00 06/28/18 06:59 05/30/18 14:26 5,000 UNIT Acetaminophen (Tylenol Tab) 650 mg Q4H PRN PO 05/29/18 05:15 06/28/18 05:14 05/30/18 12:31 650 MG Nitroglycerin (Nitrostat Tab) 0.4 mg UD PRN SL 05/29/18 05:15 06/28/18 05:14 Aspirin (Ecotrin Tab) 81 mg QAM PO 05/29/18 09:00 06/28/18 08:59 05/30/18 08:20 81 MG Atorvastatin Calcium (Lipitor Tab) 80 mg HS PO 05/29/18 21:00 06/28/18 20:59 05/29/18 20:42 80 MG Clopidogrel Bisulfate (plAVix TAB) 75 mg QAM PO 05/29/18 09:00 06/28/18 08:59 05/30/18 08:20 75 MG Diclofenac Sodium (Voltaren 1% Top Gel) 1 appln [id number] EXT 05/29/18 08:00 06/28/18 07:59 05/30/18 12:31 1 APPLN Isosorbide Mononitrate (Imdur Ext Rel Tab) 60 mg QAM PO 05/29/18 09:00 06/28/18 08:59 05/30/18 08:21 60 MG Pantoprazole Sodium (Protonix Tab) 40 mg QAM PO 05/29/18 09:00 06/28/18 08:59 05/30/18 08:21 40 MG Paroxetine HCl (pAXil TAB) 40 mg QAM PO 05/29/18 09:00 06/28/18 08:59 05/30/18 08:21 40 MG Promethazine HCl (Phenergan Tab) 12.5 mg BID PRN PO 05/29/18 05:15 06/28/18 05:14 Ranitidine HCl (zANTac TAB) 150 mg HS PO 05/29/18 21:00 06/28/18 20:59 05/29/18 20:43 150 MG Tramadol HCl (Ultram Tab) 50 mg Q4H PRN PO 05/29/18 05:15 06/28/18 05:14 05/30/18 14:18 50 MG Polyethylene (Miralax Powder Packet) 17 gm DAILY PRN PO 05/29/18 05:15 06/28/18 05:14 Ondansetron HCl (Zofran Inj) 4 mg Q6H PRN IV 05/29/18 05:15 06/28/18 05:14 Levofloxacin 500 mg/Prmx 100 ml @ 100 mls/hr Q24H IV 05/30/18 05:00 06/04/18 05:59 05/30/18 05:21 100 MLS/HR Guaifenesin (Mucinex Contr Rel Tab) 600 mg Q12 PO 05/29/18 09:00 06/28/18 08:59 05/30/18 08:21 600 MG Ipratropium [place] (Atrovent 0.02% 0.5MG/2.5ML Neb) 0.5 mg Q6R INH 05/29/18 09:00 06/28/18 08:59 05/30/18 14:12 0.5 MG Levalbuterol (Xopenex 1.25MG/ 0.5ML Neb) 1.25 mg Q6R INH 05/29/18 09:00 06/28/18 08:59 05/30/18 14:12 1.25 MG Ipratropium [place] (Atrovent 0.02% 0.5MG/2.5ML Neb) 0.5 mg Q2H PRN INH 05/29/18 05:45 06/28/18 05:44 05/29/18 22:44 0.5 MG Levalbuterol (Xopenex 1.25MG/ 0.5ML Neb) 1.25 mg Q2H PRN INH 05/29/18 05:45 06/28/18 05:44 05/29/18 22:45 1.25 MG Insulin Aspart (novoLOG ASPART) SLIDING SCALE If C... ACHS SC 05/29/18 07:00 06/28/18 06:59 05/30/18 12:33 8 UNITS Glucose (Glucose 40% Gel) 15-30 GRAMS 15 GRAMS... UD PRN PO 05/29/18 06:00 06/28/18 05:59 Glucose (Glucose Chew Tab) 4-8 Tablets 4 Tabl... UD PRN PO 05/29/18 06:00 06/28/18 05:59 Dextrose (Dextrose 50% 50ML Syringe) 25-50ML OF 50% DW IV FOR... UD PRN IV 05/29/18 06:00 06/28/18 05:59 Glucagon (Glucagon Inj) 1 mg UD PRN SQ 05/29/18 06:00 06/28/18 05:59 Carbohydrates (Carbohydrates For Hypoglycemia) 15-30 GRAMS 15 grams if BSG 54-69... UD PRN PO 05/29/18 06:00 06/28/18 05:59 Alprazolam (Xanax Tab) 0.25 mg Q8H PO 05/30/18 06:00 06/29/18 05:59 05/30/18 14:17 0.25 MG Menthol (Nice Julianne) 1 julianne PRN PRN JULIANNE 05/30/18 03:30 06/29/18 03:29 Methylprednisolone Sodium Succinate 40 mg/Syringe 0.64 ml @ 1.5 mls/min Q8 IV 05/30/18 14:00 06/28/18 05:14 05/30/18 14:18 1.5 MLS/MIN Verapamil HCl (Isoptin Tab) 80 mg TID PO 05/31/18 09:00 06/30/18 08:59 Objective Vital Signs Date Time Temp Pulse Resp B/P (MAP) Pulse Ox O2 Delivery O2 Flow Rate FiO2 05/30/18 15:13 37.1 83 22 144/74 (97) 96 Nasal Cannula 3.0 05/30/18 14:12 78 16 97 Nasal Cannula 3.0 05/30/18 11:45 36.9 78 19 142/80 (100) 97 Nasal Cannula 2.0 05/30/18 08:30 94 Nasal Cannula 3.0 05/30/18 07:18 83 95 30 05/30/18 07:18 83 14 95 BiPAP/CPAP 30 05/30/18 07:00 36.4 81 19 156/98 (117) 96 CPAP 05/30/18 05:07 86 96 30 05/30/18 03:12 36.4 80 18 159/98 (118) 95 BiPAP 05/30/18 01:36 71 95 30 05/30/18 01:36 71 14 95 BiPAP/CPAP 30 05/29/18 23:38 BiPAP 05/29/18 23:28 36.8 77 17 142/86 (104) 97 BiPAP 05/29/18 22:45 80 22 97 BiPAP/CPAP 30 05/29/18 22:44 80 97 30 05/29/18 19:37 81 96 30 05/29/18 19:35 81 26 96 BiPAP/CPAP 30 05/29/18 18:56 36.4 80 23 137/88 (104) 93 Oxymask 4.0 05/29/18 18:04 67 94 30 05/29/18 17:03 37.1 83 20 153/91 (111) 97 Nasal Cannula 6.0 05/29/18 16:00 97 BiPAP 30 Physical Exam General Appearance: no apparent distress, + obese Eyes: normal inspection, EOMI ENT: normal ENT inspection, hearing grossly normal, pharynx normal Neck: supple, no adenopathy, no JVD, trachea midline Respiratory/Chest: chest non-tender, normal breath sounds, no respiratory distress, no accessory muscle use, + wheezing (expiratory, bilaterally) Cardiovascular: regular rate, rhythm, no edema, no gallop, no JVD, no murmur Abdomen: normal bowel sounds, non tender, soft, no organomegaly Extremities: normal range of motion, non-tender, normal inspection, no pedal edema, no calf tenderness, pelvis stable Neurologic/Psychiatric: commissioner of conciliation II-XII nml as tested, no motor/sensory deficits, alert, normal mood/affect, oriented x 3 Skin: normal color, warm/dry, no rash Laboratory Results Last 24 Hours Test 05/29/18 16:19 05/29/18 20:40 05/30/18 05:40 05/30/18 07:24 Bedside Glucose 232 mg/dl 329 mg/dl 260 mg/dl White Blood Count 16.85 K/uL Red Blood Count 3.97 M/uL Hemoglobin 11.9 g/dL Hematocrit 37.2 % Mean Corpuscular Volume 93.7 fL Mean Corpuscular Hemoglobin 30.0 pg Mean Corpuscular Hemoglobin Concent 32.0 g/dl Platelet Count 225 K/uL Mean Platelet Volume 11.7 fL Neutrophils (%) (Auto) 81.1 % Lymphocytes (%) (Auto) 16.6 % Monocytes (%) (Auto) 1.8 % Eosinophils (%) (Auto) 0.0 % Basophils (%) (Auto) 0.1 % Neutrophils # (Auto) 13.67 K/uL Lymphocytes # (Auto) 2.79 K/uL Monocytes # (Auto) 0.31 K/uL Eosinophils # (Auto) 0.00 K/uL Basophils # (Auto) 0.01 K/uL RDW Standard Deviation 48.9 fL RDW Coefficient of Variation 14.2 % Immature Granulocyte % (Auto) 0.4 % Immature Granulocyte # (Auto) 0.07 K/uL Prothrombin Time 9.8 SECONDS Prothromb Time International Ratio 0.9 Activated Partial Thromboplast Time 23.1 SECONDS Partial Thromboplastin Ratio 0.9 Sodium Level 136 mmol/L Potassium Level 4.4 mmol/L Chloride Level 107 mmol/L Carbon Dioxide Level 22 mmol/L Anion Gap 7.0 mmol/L Blood Urea Nitrogen 16 mg/dl Creatinine 0.85 mg/dl Est Creatinine Clear Calc Drug Dose 101.4 ml/min Estimated GFR () 90.7 Estimated GFR (Non- 78.2 BUN/Creatinine Ratio 18.5 Random Glucose 270 mg/dl Calcium Level 8.1 mg/dl Magnesium Level 2.4 mg/dl Test 05/30/18 11:18 Bedside Glucose 224 mg/dl Assessment and Plan 52 yo female with h/o asthma, possible COPD, presented with acute worsening of shortness of breath, placed on BIPAP at time of admission Acute respiratory failure with hypoxia and hypercapnia/asthma/COPD exacerbation - improving with Solu Medrol, taper to q8 from q6 - continue Levaquin IV - tapered off of BIPAP today, use CPAP HS - allergen testing sent, still pending - continue nebulizers - appreciate recommendations from Dr. 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 - snores at night, always tired, falls asleep during the day, obese, large neck circumference - use CPAP HS - encouraged her to get sleep study outpatient Migraine headaches - takes propranolol for prophylaxis, change to Verapamil 80mg TID starting tomorrow CAD/stent to coronary artery/cerebrovascular disease/hypertension-- Continue aspirin 81 mg every morning, clopidogrel 75 mg every morning, isosorbide mononitrate ER 60 mg every morning, propranolol ER 60 mg every morning. Hold lisinopril 15 mg every morning. Diabetes mellitus--hold metformin 1000 mg p.o. twice daily. hyperglycemia due to steroids cut back on Solu Medrol, gave a dose of Lantus 15 units, follow sugars Hyperlipidemia-- Continue atorvastatin 80 mg at bedtime. Check a fasting lipid panel GERD-- Continue pantoprazole 40 mg every morning and ranitidine at 50 mg in evening. Anxiety-- Continue paroxetine daily every morning.
--- NOTE | 2018-05-30 17:53 | Pulmonology Progress Note ---
Pulmonary Progress Note Date of Service May 30, 2018. Attending Dr. Brown Subjective The patient is improving clinically, she was sleeping soundly when I saw her, when she wakes up she did not have any shortness of breath, no stridor, occasional cough, she was ambulatory earlier, no chest pain reported. Objective Physical exam on 05/30/2018 showed no stridor, O2 saturation 95% on nasal cannula , no wheezing, S1-S2 regular rate and rhythm, abdomen is benign, no edema. Assessment & Plan 1. COPD exacerbation, gold level 3, with history of asthma according to her since childhood. 2. Nicotine addiction. 3. Stridor, related to vocal cord dysfunction, improving with Xanax. Plan: 1. Continue Solu-Medrol today and change to prednisone p.o. daily starting in a.m. I noted that the dose was decreased to every 8 hours. 2. Keep the patient off Pulmicort. 3. Continue Xanax 3 times daily for at least 14 days. 4. Obtain peak flow measurement. 5. The patient will need pulmonary function test as an outpatient. 6. She will need a follow-up with pulmonary in the office. 7. Ambulate the patient. Thank you Data Medications: Current Inpatient Medications Medications (Trade) Dose Ordered Sig/Jaxon Route Start Time Stop Time Status Last Admin Dose Admin Heparin Sodium (Porcine) (Heparin Sq 5000 Unit/0.5ml) 5,000 unit Q8 SQ 05/29/18 07:00 06/28/18 06:59 05/30/18 14:26 5,000 UNIT Acetaminophen (Tylenol Tab) 650 mg Q4H PRN PO 05/29/18 05:15 06/28/18 05:14 05/30/18 12:31 650 MG Nitroglycerin (Nitrostat Tab) 0.4 mg UD PRN SL 05/29/18 05:15 06/28/18 05:14 Aspirin (Ecotrin Tab) 81 mg QAM PO 05/29/18 09:00 06/28/18 08:59 05/30/18 08:20 81 MG Atorvastatin Calcium (Lipitor Tab) 80 mg HS PO 05/29/18 21:00 06/28/18 20:59 05/29/18 20:42 80 MG Clopidogrel Bisulfate (plAVix TAB) 75 mg QAM PO 05/29/18 09:00 06/28/18 08:59 05/30/18 08:20 75 MG Diclofenac Sodium (Voltaren 1% Top Gel) 1 appln [id number] EXT 05/29/18 08:00 06/28/18 07:59 05/30/18 16:42 1 APPLN Isosorbide Mononitrate (Imdur Ext Rel Tab) 60 mg QAM PO 05/29/18 09:00 06/28/18 08:59 05/30/18 08:21 60 MG Pantoprazole Sodium (Protonix Tab) 40 mg QAM PO 05/29/18 09:00 06/28/18 08:59 05/30/18 08:21 40 MG Paroxetine HCl (pAXil TAB) 40 mg QAM PO 05/29/18 09:00 06/28/18 08:59 05/30/18 08:21 40 MG Promethazine HCl (Phenergan Tab) 12.5 mg BID PRN PO 05/29/18 05:15 06/28/18 05:14 Ranitidine HCl (zANTac TAB) 150 mg HS PO 05/29/18 21:00 06/28/18 20:59 05/29/18 20:43 150 MG Tramadol HCl (Ultram Tab) 50 mg Q4H PRN PO 05/29/18 05:15 06/28/18 05:14 05/30/18 14:18 50 MG Polyethylene (Miralax Powder Packet) 17 gm DAILY PRN PO 05/29/18 05:15 06/28/18 05:14 Ondansetron HCl (Zofran Inj) 4 mg Q6H PRN IV 05/29/18 05:15 06/28/18 05:14 Levofloxacin 500 mg/Prmx 100 ml @ 100 mls/hr Q24H IV 05/30/18 05:00 06/04/18 05:59 05/30/18 05:21 100 MLS/HR Guaifenesin (Mucinex Contr Rel Tab) 600 mg Q12 PO 05/29/18 09:00 06/28/18 08:59 05/30/18 08:21 600 MG Ipratropium [place] (Atrovent 0.02% 0.5MG/2.5ML Neb) 0.5 mg Q6R INH 05/29/18 09:00 06/28/18 08:59 05/30/18 14:12 0.5 MG Levalbuterol (Xopenex 1.25MG/ 0.5ML Neb) 1.25 mg Q6R INH 05/29/18 09:00 06/28/18 08:59 05/30/18 14:12 1.25 MG Ipratropium [place] (Atrovent 0.02% 0.5MG/2.5ML Neb) 0.5 mg Q2H PRN INH 05/29/18 05:45 06/28/18 05:44 05/29/18 22:44 0.5 MG Levalbuterol (Xopenex 1.25MG/ 0.5ML Neb) 1.25 mg Q2H PRN INH 05/29/18 05:45 06/28/18 05:44 05/29/18 22:45 1.25 MG Insulin Aspart (novoLOG ASPART) SLIDING SCALE If C... ACHS SC 05/29/18 07:00 06/28/18 06:59 05/30/18 17:48 10 UNITS Glucose (Glucose 40% Gel) 15-30 GRAMS 15 GRAMS... UD PRN PO 05/29/18 06:00 06/28/18 05:59 Glucose (Glucose Chew Tab) 4-8 Tablets 4 Tabl... UD PRN PO 05/29/18 06:00 06/28/18 05:59 Dextrose (Dextrose 50% 50ML Syringe) 25-50ML OF 50% DW IV FOR... UD PRN IV 05/29/18 06:00 06/28/18 05:59 Glucagon (Glucagon Inj) 1 mg UD PRN SQ 05/29/18 06:00 06/28/18 05:59 Carbohydrates (Carbohydrates For Hypoglycemia) 15-30 GRAMS 15 grams if BSG 54-69... UD PRN PO 05/29/18 06:00 06/28/18 05:59 Alprazolam (Xanax Tab) 0.25 mg Q8H PO 05/30/18 06:00 06/29/18 05:59 05/30/18 14:17 0.25 MG Menthol (Nice [place]) 1 tayo PRN PRN TAYO 05/30/18 03:30 06/29/18 03:29 Methylprednisolone Sodium Succinate 40 mg/Syringe 0.64 ml @ 1.5 mls/min Q8 IV 05/30/18 14:00 06/28/18 05:14 05/30/18 14:18 1.5 MLS/MIN Verapamil HCl (Isoptin Tab) 80 mg TID PO 05/31/18 09:00 06/30/18 08:59 I & O: 24-Hour Column 05/31/18 08:00 Intake Total 430 ml Output Total 800 ml Balance -370 ml Vital Signs: Date Time Temp Pulse Resp B/P (MAP) Pulse Ox O2 Delivery O2 Flow Rate FiO2 05/30/18 15:13 37.1 83 22 144/74 (97) 96 Nasal Cannula 3.0 05/30/18 14:12 78 16 97 Nasal Cannula 3.0 05/30/18 11:45 36.9 78 19 142/80 (100) 97 Nasal Cannula 2.0 05/30/18 08:30 94 Nasal Cannula 3.0 05/30/18 07:18 83 95 30 05/30/18 07:18 83 14 95 BiPAP/CPAP 30 05/30/18 07:00 36.4 81 19 156/98 (117) 96 CPAP 05/30/18 05:07 86 96 30 05/30/18 03:12 36.4 80 18 159/98 (118) 95 BiPAP 05/30/18 01:36 71 95 30 05/30/18 01:36 71 14 95 BiPAP/CPAP 30 05/29/18 23:38 BiPAP 05/29/18 23:28 36.8 77 17 142/86 (104) 97 BiPAP 05/29/18 22:45 80 22 97 BiPAP/CPAP 30 05/29/18 22:44 80 97 30 05/29/18 19:37 81 96 30 05/29/18 19:35 81 26 96 BiPAP/CPAP 30 05/29/18 18:56 36.4 80 23 137/88 (104) 93 Oxymask 4.0 05/29/18 18:04 67 94 30 Laboratory Results: Last 24 Hours Test 05/29/18 20:40 05/30/18 05:40 05/30/18 07:24 05/30/18 11:18 Bedside Glucose 329 mg/dl 260 mg/dl 224 mg/dl White Blood Count 16.85 K/uL Red Blood Count 3.97 M/uL Hemoglobin 11.9 g/dL Hematocrit 37.2 % Mean Corpuscular Volume 93.7 fL Mean Corpuscular Hemoglobin 30.0 pg Mean Corpuscular Hemoglobin Concent 32.0 g/dl Platelet Count 225 K/uL Mean Platelet Volume 11.7 fL Neutrophils (%) (Auto) 81.1 % Lymphocytes (%) (Auto) 16.6 % Monocytes (%) (Auto) 1.8 % Eosinophils (%) (Auto) 0.0 % Basophils (%) (Auto) 0.1 % Neutrophils # (Auto) 13.67 K/uL Lymphocytes # (Auto) 2.79 K/uL Monocytes # (Auto) 0.31 K/uL Eosinophils # (Auto) 0.00 K/uL Basophils # (Auto) 0.01 K/uL RDW Standard Deviation 48.9 fL RDW Coefficient of Variation 14.2 % Immature Granulocyte % (Auto) 0.4 % Immature Granulocyte # (Auto) 0.07 K/uL Prothrombin Time 9.8 SECONDS Prothromb Time International Ratio 0.9 Activated Partial Thromboplast Time 23.1 SECONDS Partial Thromboplastin Ratio 0.9 Sodium Level 136 mmol/L Potassium Level 4.4 mmol/L Chloride Level 107 mmol/L Carbon Dioxide Level 22 mmol/L Anion Gap 7.0 mmol/L Blood Urea Nitrogen 16 mg/dl Creatinine 0.85 mg/dl Est Creatinine Clear Calc Drug Dose 101.4 ml/min Estimated GFR () 90.7 Estimated GFR (Non- 78.2 BUN/Creatinine Ratio 18.5 Random Glucose 270 mg/dl Calcium Level 8.1 mg/dl Magnesium Level 2.4 mg/dl
[2018-05-30] MEDS: ATORVASTATIN 40 MG TAB PO SCH (20:46)
[2018-05-30] MEDS: RANITIDINE HCL 150 MG TAB PO SCH (20:47)
[2018-05-31] VITALS (11 sets, daily range): BP systolic 138–175; BP diastolic 72–118; PULSE 61–87; TEMP 36.4–36.7; O2SAT 93–98; Ht 167.6 cm; Wt 117.3 kg
[2018-05-31] MEDS: TRAMADOL HCL 50 MG TAB PO PRN ×2 (01:14→07:30)
[2018-05-31] MEDS: IPRATROPIUM BROMIDE NEB SOLN 0.02% 2.5 ML VIAL INH SCH ×4 (01:30→19:06)
[2018-05-31] MEDS: LEVALBUTEROL 1.25MG/0.5ML NEB INH SCH ×4 (01:31→19:05)
[2018-05-31] MEDS: LEVOFLOXACIN / D5W 500 MG in PREMIXED IN D5W 100 ML IV SCH (05:22)
[2018-05-31] MEDS: METHYLPREDNISOLONE IV 40 MG in SYRINGE 0 ML IV SCH (05:23)
[2018-05-31] MEDS: ALPRAZOLAM 0.25 MG TAB PO SCH ×3 (05:24→21:10)
[2018-05-31] MEDS: HEPARIN SOD 5000 UNIT/0.5 ML CARP SQ SCH ×3 (05:29→21:06)
[2018-05-31 06:09] LABS: BASO ABS # 0.01 K/uL (0-0.2); HEMATOCRIT 37.8 % (37-47); HEMOGLOBIN 12.2 g/dL (12.0-16.0); IG# 0.07 K/uL (0.00-0.02); LYMPH % 16.2 %; LYMPH ABS # 3.29 K/uL (1.2-3.4); MEAN CELL VOLUME 92.6 fL (80-100); MEAN CORPUSCULAR HEMOGLOBIN 29.9 pg (25-34); MEAN CORPUSCULAR HGB CONC 32.3 g/dl (32-36); MEAN PLATELET VOLUME 11.5 fL (7.4-10.4); MONO ABS # 1.01 K/uL (0.11-0.59); NEUT % 78.5 %; NEUT ABS # 15.89 K/uL (1.4-6.5); PLATELET COUNT 246 K/uL (130-400); RED CELL DISTRIBUTION WIDTH CV 14.1 % (11.5-14.5); RED CELL DISTRIBUTION WIDTH SD 47.5 fL (36.4-46.3); WHITE BLOOD COUNT 20.27 K/uL (4.8-10.8)
[2018-05-31 06:38] LABS: CALCIUM 8.5 mg/dl (8.5-10.1); CREATININE 0.98 mg/dl (0.60-1.20); POTASSIUM 4.1 mmol/L (3.5-5.1)
[2018-05-31 06:43] LABS: PTT PATIENT 23.3 SECONDS (21.0-31.0)
[2018-05-31] MEDS: DICLOFENAC SOD 1% GEL 100 GM TUBE EXT SCH ×3 (07:30→17:03)
[2018-05-31] MEDS: GUAIFENESIN 600 MG TABCR PO SCH ×2 (07:31→21:00)
[2018-05-31] MEDS: PANTOprazole SOD 40 MG TAB PO SCH (07:31)
[2018-05-31] MEDS: ISOSORBIDE MONONITRATE 60 MG TABCR PO SCH (07:31)
[2018-05-31] MEDS: ASPIRIN 81 MG ECTAB PO SCH (07:32)
[2018-05-31] MEDS: CLOPIDOGREL BISULFATE 75 MG TAB PO SCH (07:32)
[2018-05-31] MEDS: PAROXETINE 20 MG TAB PO SCH (07:32)
[2018-05-31] MEDS: VERAPAMIL HCL 40 MG TAB PO SCH ×3 (07:33→20:59)
[2018-05-31] MEDS: INSULIN ASPART 100 UNITS/ML 3 ML PEN SC SCH ×4 (07:39→21:05)
[2018-05-31] MEDS ORDERED: PHARMACY GLYCEMIC MGMT CONSULT PRN (08:16)
[2018-05-31] MEDS ORDERED: INSULIN GLARGINE SOLOSTAR 100 UNITS/ML 3 ML PEN SC ONE (08:45)
--- NOTE | 2018-05-31 11:33 | Pulmonology Progress Note ---
Pulmonary Progress Note Date of Service May 31, 2018. Attending Dr. Brown Subjective The patient is feeling better, she does not have any wheezing, no events overnight, no shortness of breath, she was ambulatory with oxygen. Objective Physical exam on 05/30/2018 showed no stridor, O2 saturation 95% on nasal cannula , no wheezing, S1-S2 regular rate and rhythm, abdomen is benign, no edema. Physical exam on 05/31/2018 showed O2 saturation of 94% on nasal cannula, no wheezing, upper respiratory stridor has resolved, no edema, S1-S2 regular rate and rhythm, abdomen is benign. Labs were consistent with leukocytosis secondary to steroids. Assessment & Plan 1. COPD exacerbation, gold level 3, with history of asthma according to her since childhood. 2. Nicotine addiction. 3. Stridor, related to vocal cord dysfunction, resolved. Plan: 1. Discontinue Solu-Medrol. 2. Start prednisone 60 mg p.o. daily and taper by 10 mg every third day. 3. Continue Xanax 3 times daily for at least 14 days. 4. Patient should be instructed how to use peak flow measurement at home. 5. The patient will need pulmonary function test as an outpatient. 6. She will need a follow-up with pulmonary in the office. 7. Ambulate the patient. 8. Smoking cessation counseling. 9. Discharge the patient to home. She is already on home O2 as she does have inhalers as well. Thank you for your kind referral, will follow as needed. Data Medications: Current Inpatient Medications Medications (Trade) Dose Ordered Sig/Jaxon Route Start Time Stop Time Status Last Admin Dose Admin Heparin Sodium (Porcine) (Heparin Sq 5000 Unit/0.5ml) 5,000 unit Q8 SQ 05/29/18 07:00 06/28/18 06:59 05/31/18 05:29 5,000 UNIT Acetaminophen (Tylenol Tab) 650 mg Q4H PRN PO 05/29/18 05:15 06/28/18 05:14 05/30/18 12:31 650 MG Nitroglycerin (Nitrostat Tab) 0.4 mg UD PRN SL 05/29/18 05:15 06/28/18 05:14 05/30/18 19:26 0.4 MG Aspirin (Ecotrin Tab) 81 mg QAM PO 05/29/18 09:00 06/28/18 08:59 05/31/18 07:32 81 MG Atorvastatin Calcium (Lipitor Tab) 80 mg HS PO 05/29/18 21:00 06/28/18 20:59 05/30/18 20:46 80 MG Clopidogrel Bisulfate (plAVix TAB) 75 mg QAM PO 05/29/18 09:00 06/28/18 08:59 05/31/18 07:32 75 MG Diclofenac Sodium (Voltaren 1% Top Gel) 1 appln [id number] EXT 05/29/18 08:00 06/28/18 07:59 05/31/18 07:30 1 APPLN Isosorbide Mononitrate (Imdur Ext Rel Tab) 60 mg QAM PO 05/29/18 09:00 06/28/18 08:59 05/31/18 07:31 60 MG Pantoprazole Sodium (Protonix Tab) 40 mg QAM PO 05/29/18 09:00 06/28/18 08:59 05/31/18 07:31 40 MG Paroxetine HCl (pAXil TAB) 40 mg QAM PO 05/29/18 09:00 06/28/18 08:59 05/31/18 07:32 40 MG Promethazine HCl (Phenergan Tab) 12.5 mg BID PRN PO 05/29/18 05:15 06/28/18 05:14 Ranitidine HCl (zANTac TAB) 150 mg HS PO 05/29/18 21:00 06/28/18 20:59 05/30/18 20:47 150 MG Tramadol HCl (Ultram Tab) 50 mg Q4H PRN PO 05/29/18 05:15 06/28/18 05:14 05/31/18 07:30 50 MG Polyethylene (Miralax Powder Packet) 17 gm DAILY PRN PO 05/29/18 05:15 06/28/18 05:14 Ondansetron HCl (Zofran Inj) 4 mg Q6H PRN IV 05/29/18 05:15 06/28/18 05:14 Guaifenesin (Mucinex Contr Rel Tab) 600 mg Q12 PO 05/29/18 09:00 06/28/18 08:59 05/31/18 07:31 600 MG Ipratropium [place] (Atrovent 0.02% 0.5MG/2.5ML Neb) 0.5 mg Q6R INH 05/29/18 09:00 06/28/18 08:59 05/31/18 07:00 0.5 MG Levalbuterol (Xopenex 1.25MG/ 0.5ML Neb) 1.25 mg Q6R INH 05/29/18 09:00 06/28/18 08:59 05/31/18 06:59 1.25 MG Ipratropium [place] (Atrovent 0.02% 0.5MG/2.5ML Neb) 0.5 mg Q2H PRN INH 05/29/18 05:45 06/28/18 05:44 05/29/18 22:44 0.5 MG Levalbuterol (Xopenex 1.25MG/ 0.5ML Neb) 1.25 mg Q2H PRN INH 05/29/18 05:45 06/28/18 05:44 05/29/18 22:45 1.25 MG Insulin Aspart (novoLOG ASPART) SLIDING SCALE If C... ACHS SC 05/29/18 07:00 06/28/18 06:59 05/31/18 07:39 11 UNITS Glucose (Glucose 40% Gel) 15-30 GRAMS 15 GRAMS... UD PRN PO 05/29/18 06:00 06/28/18 05:59 Glucose (Glucose Chew Tab) 4-8 Tablets 4 Tabl... UD PRN PO 05/29/18 06:00 06/28/18 05:59 Dextrose (Dextrose 50% 50ML Syringe) 25-50ML OF 50% DW IV FOR... UD PRN IV 05/29/18 06:00 06/28/18 05:59 Glucagon (Glucagon Inj) 1 mg UD PRN SQ 05/29/18 06:00 06/28/18 05:59 Carbohydrates (Carbohydrates For Hypoglycemia) 15-30 GRAMS 15 grams if BSG 54-69... UD PRN PO 05/29/18 06:00 06/28/18 05:59 Alprazolam (Xanax Tab) 0.25 mg Q8H PO 05/30/18 06:00 06/29/18 05:59 05/31/18 05:24 0.25 MG Menthol (Nice Tayo) 1 tayo PRN PRN TAYO 05/30/18 03:30 06/29/18 03:29 Verapamil HCl (Isoptin Tab) 80 mg TID PO 05/31/18 09:00 06/30/18 08:59 05/31/18 07:33 80 MG Miscellaneous Information (Consult Glycemic Management Pharmacy) 1 ea UD PRN N/A 05/31/18 08:16 06/30/18 08:15 Methylprednisolone Sodium Succinate 40 mg/Syringe 0.64 ml @ 1.5 mls/min Q12 IV 05/31/18 21:00 05/31/18 22:00 Prednisone (PredniSONE TAB) 40 mg QAM PO 06/01/18 09:00 07/01/18 08:59 Levofloxacin (Levaquin Tab) 500 mg DAILY@11 PO 06/01/18 11:00 06/08/18 10:59 UNV Vital Signs: Date Time Temp Pulse Resp B/P (MAP) Pulse Ox O2 Delivery O2 Flow Rate FiO2 05/31/18 09:49 152/88 (109) 93 Nasal Cannula 2.0 05/31/18 08:00 94 Nasal Cannula 2.0 05/31/18 07:17 36.4 71 18 175/118 (137) 94 BiPAP 05/31/18 07:00 70 16 93 BiPAP/CPAP 21 05/31/18 07:00 70 93 21 05/31/18 03:43 36.7 85 19 166/104 (124) 96 BiPAP 05/31/18 01:33 61 95 21 05/31/18 01:33 61 16 95 BiPAP/CPAP 21 05/31/18 01:23 Nasal Cannula 05/30/18 23:32 36.7 72 19 174/89 (117) 94 BiPAP 05/30/18 22:15 71 94 21 05/30/18 20:00 37.0 80 22 138/99 (112) 93 Room Air 05/30/18 19:41 72 14 93 Room Air 05/30/18 16:00 96 Nasal Cannula 3.0 05/30/18 15:13 37.1 83 22 144/74 (97) 96 Nasal Cannula 3.0 05/30/18 14:12 78 16 97 Nasal Cannula 3.0 05/30/18 11:45 36.9 78 19 142/80 (100) 97 Nasal Cannula 2.0 Laboratory Results: Last 24 Hours Test 05/30/18 16:30 05/30/18 20:28 05/31/18 05:55 05/31/18 07:21 Bedside Glucose 277 mg/dl 333 mg/dl 299 mg/dl White Blood Count 20.27 K/uL Red Blood Count 4.08 M/uL Hemoglobin 12.2 g/dL Hematocrit 37.8 % Mean Corpuscular Volume 92.6 fL Mean Corpuscular Hemoglobin 29.9 pg Mean Corpuscular Hemoglobin Concent 32.3 g/dl Platelet Count 246 K/uL Mean Platelet Volume 11.5 fL Neutrophils (%) (Auto) 78.5 % Lymphocytes (%) (Auto) 16.2 % Monocytes (%) (Auto) 5.0 % Eosinophils (%) (Auto) 0.0 % Basophils (%) (Auto) 0.0 % Neutrophils # (Auto) 15.89 K/uL Lymphocytes # (Auto) 3.29 K/uL Monocytes # (Auto) 1.01 K/uL Eosinophils # (Auto) 0.00 K/uL Basophils # (Auto) 0.01 K/uL RDW Standard Deviation 47.5 fL RDW Coefficient of Variation 14.1 % Immature Granulocyte % (Auto) 0.3 % Immature Granulocyte # (Auto) 0.07 K/uL Prothrombin Time 10.3 SECONDS Prothromb Time International Ratio 1.0 Activated Partial Thromboplast Time 23.3 SECONDS Partial Thromboplastin Ratio 0.9 Sodium Level 134 mmol/L Potassium Level 4.1 mmol/L Chloride Level 103 mmol/L Carbon Dioxide Level 25 mmol/L Anion Gap 6.0 mmol/L Blood Urea Nitrogen 19 mg/dl Creatinine 0.98 mg/dl Est Creatinine Clear Calc Drug Dose 86.5 ml/min Estimated GFR () 76.3 Estimated GFR (Non- 65.9 BUN/Creatinine Ratio 19.0 Random Glucose 266 mg/dl Calcium Level 8.5 mg/dl Magnesium Level 2.3 mg/dl Test 05/31/18 11:24 Bedside Glucose 319 mg/dl
[2018-05-31] MEDS ORDERED: INSULIN HUMAN REGULAR PER UNIT 7 UNITS in SYRINGE 6.93 ML IV STA (12:49)
--- NOTE | 2018-05-31 13:18 | Pharmacy Progress Note ---
Glycemic Control Intl Consult Date of Service May 31, 2018. Scope Glycemic Pharmacist consulted by Dr Ralph on 05/31/18 for glycemic control and to write orders per [facility] inpatient glycemic control protocol Objective Weight (Kilograms): 117.500 Accuchecks BSG (last 24hrs): Test 05/30/18 16:30 05/30/18 20:28 05/31/18 05:55 05/31/18 07:21 Bedside Glucose 277 mg/dl (70-90) 333 mg/dl (70-90) 299 mg/dl (70-90) Random Glucose 266 mg/dl (70-99) Test 05/31/18 11:24 Bedside Glucose 319 mg/dl (70-90) Laboratory Data (last 24hrs) Test 05/31/18 05:55 Anion Gap 6.0 mmol/L BUN/Creatinine Ratio 19.0 Blood Urea Nitrogen 19 mg/dl Creatinine 0.98 mg/dl Potassium Level 4.1 mmol/L Sodium Level 134 mmol/L White Blood Count 20.27 K/uL Red Blood Count 4.08 M/uL Hemoglobin 12.2 g/dL Hematocrit 37.8 % Mean Corpuscular Volume 92.6 fL Mean Corpuscular Hemoglobin 29.9 pg Mean Corpuscular Hemoglobin Concent 32.3 g/dl Platelet Count 246 K/uL Mean Platelet Volume 11.5 fL Neutrophils (%) (Auto) 78.5 % Lymphocytes (%) (Auto) 16.2 % Monocytes (%) (Auto) 5.0 % Eosinophils (%) (Auto) 0.0 % Basophils (%) (Auto) 0.0 % Neutrophils # (Auto) 15.89 K/uL Lymphocytes # (Auto) 3.29 K/uL Monocytes # (Auto) 1.01 K/uL Eosinophils # (Auto) 0.00 K/uL Basophils # (Auto) 0.01 K/uL HbA1c Test 05/29/18 02:50 Hemoglobin A1c 7.9 % (4.5-5.6) H Recent Pertinent Medications Outpatient Anti-diabetic Regimen: * Metformin 1 g po BID * A1c = 7.9 % on 05/29/18 The patient is currently receiving: * Basal insulin: Lantus 15 units x1 8/8 AM * Correctional Insulin: Novolog Correction per scale ACHS Goal Range: Low 100 mg/dL - High 150 mg/dL Correction Factor: 30 mg/dL/unit * Prandial insulin: Per carb ratio of 1 unit per 10 grams CHO consumed * Oral Agents: On hold Risk Factors for Insulin Resistance: * Steroids: Methylprednisolone 40 mg IV q8h tapered today to prednisone 60 mg po daily * Infection: asthma exacerbation on levofloxacin * Diet: T2DM Assessment & Plan ASSESSMENT: * 52 yo F with asthma exacerbation and acute respiratory failure, now transferred out of MICU to 2W * BSG's ranging 277-319 mg/dL over the last 24 hours * Will give one-time IV bolus dose to immediately bring BSG's less than 300 mg/ dL * Doubled Lantus dose this AM as compared to yesterday (while patient was still on methylprednisolone q8h) * Steroids tapered to prednisone once daily - will change basal insulin from Lantus to NPH for similar pharmacokinetics while on prednisone qAM * Hyperglycemia likely steroid-induced - responds best to tighter CHO ratio. Will tighten significantly today. * Correction factor insufficient overnight to bring BSG's into range this AM - will tighten * Will add one overnight check 2nd significant hyperglycemia today. However, will loosen parameters as compared to above adjustments as steroids tapered to prednisone (effects will dissipate overnight) and given a larger dose of Lantus this AM (effects will persist overnight) PLAN FOR INPATIENT GLYCEMIC CONTROL: * Holding outpatient oral diabetes medications * Basal insulin with LANTUS 30 units SQ x1 (already given this AM) * Change basal insulin to NPH qAM (starting 8/10 AM) * 10 units for BSG less than 120 mg/dL * 20 units for BSG 120-180 mg/dL * 30 units for BSG > 180 mg/dL * Correctional Insulin with NOVOLOG per scale ACHS or Q6hrs while NPO * Goal Range: Low 110 mg/dL - High 150 mg/dL * Correction Factor: 20 mg/dL/unit * Nutritional / Prandial insulin per carb ratio of 1 unit per 6 grams CHO consumed * Correctional Insulin with NOVOLOG x1 overnight check * Goal Range: Low 140 mg/dL - High 180 mg/dL * Correction Factor: 25 mg/dL/unit * Nutritional / Prandial insulin per carb ratio of 1 unit per 9 grams CHO consumed * Please note that the plan above was derived based on current level of insulin resistance and hospital stress. These recommendations are appropriate for inpatient admission only. Plan of care upon discharge will need to be reassessed to avoid potential outpatient hypo/hyperglycemia. Thank you.
[2018-05-31] MEDS ORDERED: METHYLPREDNISOLONE IV 40 MG in SYRINGE 0 ML IV SCH (21:00)
[2018-05-31] MEDS: ATORVASTATIN 40 MG TAB PO SCH (21:00)
[2018-05-31] MEDS: RANITIDINE HCL 150 MG TAB PO SCH (21:00)
--- NOTE | 2018-05-31 22:10 | Progress Note ---
Subjective Date of Service: May 31, 2018. Subjective Pt evaluation today including: conversation w/ patient, conversation w/ family ( at the bedside), physical exam, lab review, conversation w/ business management consultant , review of inpatient medication list Pain: no pain PO Intake: adequate Voiding: no voiding problems breathing better today, stable on 2L NC still with some wheezing, non-productive cough discussed getting sleep study at home, she agreed sugars elevated, consulted pharmacy for glycemic management discussed with Dr. Brown, appreciate his recommendations Problem List Medical Problems: (1) Abnormal EKG Status: Acute (2) Acute asthma exacerbation Status: Acute (3) Acute bronchiolitis Status: Acute (4) Anxiety State Nos Status: Chronic (5) Asthma, Unspecified Status: Chronic (6) Bronchospasm Status: Acute (7) CAD (coronary artery disease) Status: Chronic (8) Contusion of multiple sites Status: Acute (9) Depressive Disorder Nec Status: Chronic (10) Diab Estrellita Wo Compl, Type Ii Or Unspec Type, Not Uncntrld Status: Chronic (11) Diabetes Status: Chronic (12) Fall Status: Acute (13) Fall Status: Acute (14) Fx sacrum/coccyx-closed Status: Acute (15) Headache Status: Acute (16) Hyperlipidemia Nec/Nos Status: Chronic (17) Hypertension Nos Status: Chronic (18) Hypoxia Status: Acute (19) Knee pain Status: Acute (20) Left knee injury Status: Acute (21) Left sided chest pain Status: Acute (22) Lower back pain Status: Chronic (23) Lumbar Disc Displacement Status: Chronic (24) Lumbosacral Neuritis Nos Status: Chronic (25) Migraine Status: Chronic (26) Migraine Status: Acute (27) Nonspecific chest pain Status: Acute (28) Osteoarthros Nos-Unspec Status: Chronic (29) Posttraumatic Stress Disorder Status: Chronic (30) Precordial chest pain Status: Acute (31) Precordial chest pain Status: Acute (32) Respiratory failure Status: Acute (33) Sacral contusion Status: Acute (34) Substernal precordial chest pain Status: Acute (35) Substernal precordial chest pain Status: Acute (36) Weakness Status: Acute Review of Systems Constitutional: + weakness, + fatigue Respiratory: + cough, + wheezing, + shortness of breath, + dyspnea on exertion All Other Systems: Reviewed and Negative Medications Current Inpatient Medications Medications (Trade) Dose Ordered Sig/Jaxon Route Start Time Stop Time Status Last Admin Dose Admin Heparin Sodium (Porcine) (Heparin Sq 5000 Unit/0.5ml) 5,000 unit Q8 SQ 05/29/18 07:00 06/28/18 06:59 05/31/18 21:06 5,000 UNIT Acetaminophen (Tylenol Tab) 650 mg Q4H PRN PO 05/29/18 05:15 06/28/18 05:14 05/30/18 12:31 650 MG Nitroglycerin (Nitrostat Tab) 0.4 mg UD PRN SL 05/29/18 05:15 06/28/18 05:14 05/30/18 19:26 0.4 MG Aspirin (Ecotrin Tab) 81 mg QAM PO 05/29/18 09:00 06/28/18 08:59 05/31/18 07:32 81 MG Atorvastatin Calcium (Lipitor Tab) 80 mg HS PO 05/29/18 21:00 06/28/18 20:59 05/31/18 21:00 80 MG Clopidogrel Bisulfate (plAVix TAB) 75 mg QAM PO 05/29/18 09:00 06/28/18 08:59 05/31/18 07:32 75 MG Diclofenac Sodium (Voltaren 1% Top Gel) 1 appln [id number] EXT 05/29/18 08:00 06/28/18 07:59 05/31/18 17:03 1 APPLN Isosorbide Mononitrate (Imdur Ext Rel Tab) 60 mg QAM PO 05/29/18 09:00 06/28/18 08:59 05/31/18 07:31 60 MG Pantoprazole Sodium (Protonix Tab) 40 mg QAM PO 05/29/18 09:00 06/28/18 08:59 05/31/18 07:31 40 MG Paroxetine HCl (pAXil TAB) 40 mg QAM PO 05/29/18 09:00 06/28/18 08:59 05/31/18 07:32 40 MG Promethazine HCl (Phenergan Tab) 12.5 mg BID PRN PO 05/29/18 05:15 06/28/18 05:14 Ranitidine HCl (zANTac TAB) 150 mg HS PO 05/29/18 21:00 9/6/18 20:59 05/31/18 21:00 150 MG Tramadol HCl (Ultram Tab) 50 mg Q4H PRN PO 05/29/18 05:15 06/28/18 05:14 05/31/18 07:30 50 MG Polyethylene (Miralax Powder Packet) 17 gm DAILY PRN PO 05/29/18 05:15 06/28/18 05:14 Ondansetron HCl (Zofran Inj) 4 mg Q6H PRN IV 05/29/18 05:15 06/28/18 05:14 Guaifenesin (Mucinex Contr Rel Tab) 600 mg Q12 PO 05/29/18 09:00 06/28/18 08:59 05/31/18 21:00 600 MG Ipratropium [place] (Atrovent 0.02% 0.5MG/2.5ML Neb) 0.5 mg Q6R INH 05/29/18 09:00 06/28/18 08:59 05/31/18 19:06 0.5 MG Levalbuterol (Xopenex 1.25MG/ 0.5ML Neb) 1.25 mg Q6R INH 05/29/18 09:00 06/28/18 08:59 05/31/18 19:05 1.25 MG Ipratropium [place] (Atrovent 0.02% 0.5MG/2.5ML Neb) 0.5 mg Q2H PRN INH 05/29/18 05:45 06/28/18 05:44 05/29/18 22:44 0.5 MG Levalbuterol (Xopenex 1.25MG/ 0.5ML Neb) 1.25 mg Q2H PRN INH 05/29/18 05:45 06/28/18 05:44 05/29/18 22:45 1.25 MG Insulin Aspart (novoLOG ASPART) SLIDING SCALE If C... ACHS SC 05/29/18 07:00 06/28/18 06:59 05/31/18 21:05 7 UNITS Glucose (Glucose 40% Gel) 15-30 GRAMS 15 GRAMS... UD PRN PO 05/29/18 06:00 06/28/18 05:59 Glucose (Glucose Chew Tab) 4-8 Tablets 4 Tabl... UD PRN PO 05/29/18 06:00 06/28/18 05:59 Dextrose (Dextrose 50% 50ML Syringe) 25-50ML OF 50% DW IV FOR... UD PRN IV 05/29/18 06:00 06/28/18 05:59 Glucagon (Glucagon Inj) 1 mg UD PRN SQ 05/29/18 06:00 06/28/18 05:59 Carbohydrates (Carbohydrates For Hypoglycemia) 15-30 GRAMS 15 grams if BSG 54-69... UD PRN PO 05/29/18 06:00 06/28/18 05:59 Alprazolam (Xanax Tab) 0.25 mg Q8H PO 05/30/18 06:00 06/29/18 05:59 05/31/18 21:10 0.25 MG Menthol (Nice Julianne) 1 julianne PRN PRN JULIANNE 05/30/18 03:30 06/29/18 03:29 Verapamil HCl (Isoptin Tab) 80 mg TID PO 05/31/18 09:00 06/30/18 08:59 05/31/18 20:59 80 MG Miscellaneous Information (Consult Glycemic Management Pharmacy) 1 ea UD PRN N/A 05/31/18 08:16 06/30/18 08:15 Levofloxacin (Levaquin Tab) 500 mg DAILY@11 PO 06/01/18 11:00 06/05/18 10:59 Prednisone (PredniSONE TAB) 60 mg DAILY PO 05/31/18 12:00 06/30/18 11:59 05/31/18 14:00 60 MG Insulin Human NPH (novoLIN-N NPH) QDB SC 06/01/18 08:00 07/01/18 07:59 Insulin Aspart (novoLOG ASPART) SLIDING SCALE If C... TODAY@0200 ONCE SC 06/01/18 02:00 06/01/18 02:01 Objective Vital Signs Date Time Temp Pulse Resp B/P (MAP) Pulse Ox O2 Delivery O2 Flow Rate FiO2 05/31/18 19:06 87 16 95 Nasal Cannula 2.0 05/31/18 16:00 Nasal Cannula 2.0 05/31/18 14:54 36.7 69 20 144/75 (98) 98 Nasal Cannula 3.0 05/31/18 14:14 77 16 96 Nasal Cannula 2.0 05/31/18 09:49 152/88 (109) 93 Nasal Cannula 2.0 05/31/18 08:00 94 Nasal Cannula 2.0 05/31/18 07:17 36.4 71 18 175/118 (137) 94 BiPAP 05/31/18 07:00 70 16 93 BiPAP/CPAP 21 05/31/18 07:00 70 93 21 05/31/18 03:43 36.7 85 19 166/104 (124) 96 BiPAP 05/31/18 01:33 61 95 21 05/31/18 01:33 61 16 95 BiPAP/CPAP 21 05/31/18 01:23 Nasal Cannula 05/30/18 23:32 36.7 72 19 174/89 (117) 94 BiPAP 05/30/18 22:15 71 94 21 Physical Exam General Appearance: no apparent distress, + obese Eyes: normal inspection, EOMI, sclerae normal ENT: normal ENT inspection, hearing grossly normal, pharynx normal Neck: supple, no adenopathy, no JVD, trachea midline Respiratory/Chest: chest non-tender, normal breath sounds, no respiratory distress, no accessory muscle use, + decreased breath sounds, + wheezing Cardiovascular: regular rate, rhythm, no edema, no gallop, no JVD, no murmur Abdomen: normal bowel sounds, non tender, soft, no organomegaly Extremities: normal range of motion, non-tender, normal inspection, no pedal edema, no calf tenderness Neurologic/Psychiatric: table tender sludge II-XII nml as tested, no motor/sensory deficits, alert, normal mood/affect, oriented x 3 Skin: normal color, warm/dry, no rash Laboratory Results Last 24 Hours Test 05/31/18 05:55 05/31/18 07:21 05/31/18 11:24 05/31/18 16:15 White Blood Count 20.27 K/uL Red Blood Count 4.08 M/uL Hemoglobin 12.2 g/dL Hematocrit 37.8 % Mean Corpuscular Volume 92.6 fL Mean Corpuscular Hemoglobin 29.9 pg Mean Corpuscular Hemoglobin Concent 32.3 g/dl Platelet Count 246 K/uL Mean Platelet Volume 11.5 fL Neutrophils (%) (Auto) 78.5 % Lymphocytes (%) (Auto) 16.2 % Monocytes (%) (Auto) 5.0 % Eosinophils (%) (Auto) 0.0 % Basophils (%) (Auto) 0.0 % Neutrophils # (Auto) 15.89 K/uL Lymphocytes # (Auto) 3.29 K/uL Monocytes # (Auto) 1.01 K/uL Eosinophils # (Auto) 0.00 K/uL Basophils # (Auto) 0.01 K/uL RDW Standard Deviation 47.5 fL RDW Coefficient of Variation 14.1 % Immature Granulocyte % (Auto) 0.3 % Immature Granulocyte # (Auto) 0.07 K/uL Prothrombin Time 10.3 SECONDS Prothromb Time International Ratio 1.0 Activated Partial Thromboplast Time 23.3 SECONDS Partial Thromboplastin Ratio 0.9 Sodium Level 134 mmol/L Potassium Level 4.1 mmol/L Chloride Level 103 mmol/L Carbon Dioxide Level 25 mmol/L Anion Gap 6.0 mmol/L Blood Urea Nitrogen 19 mg/dl Creatinine 0.98 mg/dl Est Creatinine Clear Calc Drug Dose 86.5 ml/min Estimated GFR () 76.3 Estimated GFR (Non- 65.9 BUN/Creatinine Ratio 19.0 Random Glucose 266 mg/dl Calcium Level 8.5 mg/dl Magnesium Level 2.3 mg/dl Bedside Glucose 299 mg/dl 319 mg/dl 179 mg/dl Test 05/31/18 20:16 Bedside Glucose 285 mg/dl Assessment and Plan 52 yo female with h/o asthma, possible COPD, presented with acute worsening of shortness of breath, placed on BIPAP at time of admission Acute respiratory failure with hypoxia and hypercapnia/asthma/COPD exacerbation - improving with Solu Medrol, change to Prednisone 60mg daily tomorrow - continue Levaquin IV - tapered off of BIPAP today, use CPAP HS - allergen testing sent, still pending - continue nebulizers - appreciate recommendations from Dr. 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 - snores at night, always tired, falls asleep during the day, obese, large neck circumference - use CPAP HS - encouraged her to get sleep study outpatient, can set up for home study, will sign order and arrange through case management - confirms that she snores, is tired all the time during the day Migraine headaches - was taking propranolol for prophylaxis, changed to Verapamil 80mg TID to prevent possible bronchospasm CAD/stent to coronary artery/cerebrovascular disease/hypertension-- Continue aspirin 81 mg every morning, clopidogrel 75 mg every morning, isosorbide mononitrate ER 60 mg every morning, propranolol ER 60 mg every morning. Hold lisinopril 15 mg every morning. Diabetes mellitus--hold metformin 1000 mg p.o. twice daily. hyperglycemia due to steroids consult pharmacy for control Hyperlipidemia-- Continue atorvastatin 80 mg at bedtime. Check a fasting lipid panel GERD-- Continue pantoprazole 40 mg every morning and ranitidine at 50 mg in evening. Anxiety-- Continue paroxetine daily every morning. transfer to medical floor
[2018-06-01] VITALS (9 sets, daily range): BP systolic 121–167; BP diastolic 62–111; PULSE 66–102; TEMP 36.3–36.8; O2SAT 93–98
[2018-06-01] MEDS: LEVALBUTEROL 1.25MG/0.5ML NEB INH SCH ×3 (01:47→14:28)
[2018-06-01] MEDS: IPRATROPIUM BROMIDE NEB SOLN 0.02% 2.5 ML VIAL INH SCH ×3 (01:47→14:28)
[2018-06-01] MEDS ORDERED: INSULIN ASPART 100 UNITS/ML 3 ML PEN SC ONE (02:00)
[2018-06-01] MEDS ORDERED: INSULIN ASPART 100 UNITS/ML 3 ML PEN SC STA (02:15)
[2018-06-01] MEDS: ALPRAZOLAM 0.25 MG TAB PO SCH ×2 (06:39→13:52)
[2018-06-01] MEDS: HEPARIN SOD 5000 UNIT/0.5 ML CARP SQ SCH ×2 (06:40→13:54)
[2018-06-01 07:29] LABS: HEMATOCRIT 41.8 % (37-47); HEMOGLOBIN 13.7 g/dL (12.0-16.0); MEAN CELL VOLUME 92.1 fL (80-100); MEAN CORPUSCULAR HEMOGLOBIN 30.2 pg (25-34); MEAN CORPUSCULAR HGB CONC 32.8 g/dl (32-36); MEAN PLATELET VOLUME 11.5 fL (7.4-10.4); PLATELET COUNT 267 K/uL (130-400); RED CELL DISTRIBUTION WIDTH CV 14.3 % (11.5-14.5); RED CELL DISTRIBUTION WIDTH SD 47.8 fL (36.4-46.3)
[2018-06-01] MEDS ORDERED: INSULIN HUMAN NPH SC SCH (08:00)
[2018-06-01] MEDS: VERAPAMIL HCL 40 MG TAB PO SCH ×2 (08:10→13:52)
[2018-06-01] MEDS: ISOSORBIDE MONONITRATE 60 MG TABCR PO SCH (08:10)
[2018-06-01] MEDS: ASPIRIN 81 MG ECTAB PO SCH (08:10)
[2018-06-01] MEDS: PAROXETINE 20 MG TAB PO SCH (08:10)
[2018-06-01] MEDS: GUAIFENESIN 600 MG TABCR PO SCH (08:10)
[2018-06-01] MEDS: PANTOprazole SOD 40 MG TAB PO SCH (08:11)
[2018-06-01] MEDS: CLOPIDOGREL BISULFATE 75 MG TAB PO SCH (08:11)
[2018-06-01] MEDS: DICLOFENAC SOD 1% GEL 100 GM TUBE EXT SCH ×3 (08:11→16:00)
[2018-06-01] MEDS: INSULIN ASPART 100 UNITS/ML 3 ML PEN SC SCH ×3 (08:16→17:12)
[2018-06-01 08:17] LABS: BASO % 0.1 %; BASO ABS # 0.02 K/uL (0-0.2); EOS % 0.1 %; EOS ABS # 0.01 K/uL (0-0.5); IG# 0.13 K/uL (0.00-0.02); LYMPH % 30.2 %; LYMPH ABS # 5.97 K/uL (1.2-3.4); MONO % 7.1 %; NEUT % 61.8 %; NEUT ABS # 12.27 K/uL (1.4-6.5)
[2018-06-01] MEDS ORDERED: LEVOFLOXACIN 500 MG TAB PO SCH (11:00)
[2018-06-01] MEDS: IPRATROPIUM BROMIDE NEB SOLN 0.02% 2.5 ML VIAL INH PRN ×2 (12:16→17:33)
[2018-06-01] MEDS: LEVALBUTEROL 1.25MG/0.5ML NEB INH PRN ×2 (12:16→17:33)
[2018-06-01] MEDS: TRAMADOL HCL 50 MG TAB PO PRN (13:30)
--- NOTE | 2018-06-01 13:42 | Pharmacy Progress Note ---
Pharmacy Glycemic Short Note 2 Date of Service Jun 01, 2018. Outpatient Anti-diabetic Regimen: * Metformin 1 gm po BID * A1c = 7.9 % on 05/29/18 ASSESSMENT: * BSGs have been reasonable so far today since SoluMedrol was discontinued yesterday. * Still expect to see steroid-induced hyperglycemia with Prednisone 60mg daily, so will continue "tight" carb coverage for now. * No additional changes at this time. PLAN FOR INPATIENT GLYCEMIC CONTROL: * Holding outpatient oral diabetes medications * Basal insulin: NPH per scale qAM * 10 units for BSG less than 120 mg/dL * 20 units for BSG 120-180 mg/dL * 30 units for BSG > 180 mg/dL * Correctional Insulin with NOVOLOG per scale ACHS or Q6hrs while NPO * Goal Range: Low 110 mg/dL - High 150 mg/dL * Correction Factor: 20 mg/dL/unit * Nutritional / Prandial insulin per carb ratio of 1 unit per 6 grams CHO consumed PLAN FOR DISCHARGE: * Current A1c (7.9%) indicates suboptimal glycemic control for a 52yo patient. * Expect that patient may resume home regimen on discharge and work toward optimizing A1c with diet/lifestyle modifications. * Consider CDE consult. * Please note that the plan above was derived based on current level of insulin resistance and hospital stress. These recommendations are appropriate for inpatient admission only. Plan of care upon discharge will need to be reassessed to avoid potential outpatient hypo/hyperglycemia. Thank you.
--- NOTE | 2018-06-01 14:52 | Pulmonology Progress Note ---
Pulmonary Progress Note Date of Service Jun 01, 2018. Attending Dr. Brown Subjective The patient did have an episode of stridor today as well as wheezing, the patient is not using the oxygen properly, although she was instructed to do so. Objective Physical exam on 05/30/2018 showed no stridor, O2 saturation 95% on nasal cannula , no wheezing, S1-S2 regular rate and rhythm, abdomen is benign, no edema. Physical exam on 05/31/2018 showed O2 saturation of 94% on nasal cannula, no wheezing, upper respiratory stridor has resolved, no edema, S1-S2 regular rate and rhythm, abdomen is benign. Labs were consistent with leukocytosis secondary to steroids. Her physical exam on 06/01/2018 showed O2 saturation of 93% on room air, no wheezing, minimal stridor, abdomen is benign, no edema. Hyperglycemia noted. Assessment & Plan 1. COPD exacerbation, gold level 3, with history of asthma according to her since childhood. 2. Nicotine addiction. 3. Stridor, related to vocal cord dysfunction, resolved. Plan: 1. Discontinue Solu-Medrol. 2. Start prednisone 60 mg p.o. daily and taper by 10 mg every third day. 3. Continue Xanax 3 times daily for at least 14 days. 4. Patient should be instructed how to use peak flow measurement at home. 5. The patient will need pulmonary function test as an outpatient. 6. She will need a follow-up with pulmonary in the office. 7. Ambulate the patient. With and without oxygen. Evaluation for home O2. Although the patient claims that she does not have the oxygen although she told me before that she did. 8. Smoking cessation counseling. 9. Discharge the patient to home. She is already on home O2 as she does have inhalers as well. Thank you for your kind referral, will follow as needed. Data Medications: Current Inpatient Medications Medications (Trade) Dose Ordered Sig/Jaxon Route Start Time Stop Time Status Last Admin Dose Admin Heparin Sodium (Porcine) (Heparin Sq 5000 Unit/0.5ml) 5,000 unit Q8 SQ 05/29/18 07:00 06/28/18 06:59 06/01/18 13:54 5,000 UNIT Acetaminophen (Tylenol Tab) 650 mg Q4H PRN PO 05/29/18 05:15 06/28/18 05:14 05/30/18 12:31 650 MG Nitroglycerin (Nitrostat Tab) 0.4 mg UD PRN SL 05/29/18 05:15 06/28/18 05:14 05/30/18 19:26 0.4 MG Aspirin (Ecotrin Tab) 81 mg QAM PO 05/29/18 09:00 06/28/18 08:59 06/01/18 08:10 81 MG Atorvastatin Calcium (Lipitor Tab) 80 mg HS PO 05/29/18 21:00 06/28/18 20:59 05/31/18 21:00 80 MG Clopidogrel Bisulfate (plAVix TAB) 75 mg QAM PO 05/29/18 09:00 06/28/18 08:59 06/01/18 08:11 75 MG Diclofenac Sodium (Voltaren 1% Top Gel) 1 appln 3XDQ4 EXT 05/29/18 08:00 06/28/18 07:59 06/01/18 11:47 1 APPLN Isosorbide Mononitrate (Imdur Ext Rel Tab) 60 mg QAM PO 05/29/18 09:00 06/28/18 08:59 06/01/18 08:10 60 MG Pantoprazole Sodium (Protonix Tab) 40 mg QAM PO 05/29/18 09:00 06/28/18 08:59 06/01/18 08:11 40 MG Paroxetine HCl (pAXil TAB) 40 mg QAM PO 05/29/18 09:00 06/28/18 08:59 06/01/18 08:10 40 MG Promethazine HCl (Phenergan Tab) 12.5 mg BID PRN PO 05/29/18 05:15 06/28/18 05:14 Ranitidine HCl (zANTac TAB) 150 mg HS PO 05/29/18 21:00 06/28/18 20:59 05/31/18 21:00 150 MG Tramadol HCl (Ultram Tab) 50 mg Q4H PRN PO 05/29/18 05:15 06/28/18 05:14 06/01/18 13:30 50 MG Polyethylene (Miralax Powder Packet) 17 gm DAILY PRN PO 05/29/18 05:15 06/28/18 05:14 Ondansetron HCl (Zofran Inj) 4 mg Q6H PRN IV 05/29/18 05:15 9/6/18 05:14 Guaifenesin (Mucinex Contr Rel Tab) 600 mg Q12 PO 05/29/18 09:00 06/28/18 08:59 06/01/18 08:10 600 MG Ipratropium [place] (Atrovent 0.02% 0.5MG/2.5ML Neb) 0.5 mg Q6R INH 05/29/18 09:00 06/28/18 08:59 06/01/18 14:28 0.5 MG Levalbuterol (Xopenex 1.25MG/ 0.5ML Neb) 1.25 mg Q6R INH 05/29/18 09:00 06/28/18 08:59 06/01/18 14:28 1.25 MG Ipratropium [place] (Atrovent 0.02% 0.5MG/2.5ML Neb) 0.5 mg Q2H PRN INH 05/29/18 05:45 06/28/18 05:44 06/01/18 12:16 0.5 MG Levalbuterol (Xopenex 1.25MG/ 0.5ML Neb) 1.25 mg Q2H PRN INH 05/29/18 05:45 06/28/18 05:44 06/01/18 12:16 1.25 MG Insulin Aspart (novoLOG ASPART) SLIDING SCALE If C... ACHS SC 05/29/18 07:00 06/28/18 06:59 06/01/18 11:49 10 UNITS Glucose (Glucose 40% Gel) 15-30 GRAMS 15 GRAMS... UD PRN PO 05/29/18 06:00 06/28/18 05:59 Glucose (Glucose Chew Tab) 4-8 Tablets 4 Tabl... UD PRN PO 05/29/18 06:00 06/28/18 05:59 Dextrose (Dextrose 50% 50ML Syringe) 25-50ML OF 50% DW IV FOR... UD PRN IV 05/29/18 06:00 06/28/18 05:59 Glucagon (Glucagon Inj) 1 mg UD PRN SQ 05/29/18 06:00 06/28/18 05:59 Carbohydrates (Carbohydrates For Hypoglycemia) 15-30 GRAMS 15 grams if BSG 54-69... UD PRN PO 05/29/18 06:00 06/28/18 05:59 Alprazolam (Xanax Tab) 0.25 mg Q8H PO 05/30/18 06:00 06/29/18 05:59 06/01/18 13:52 0.25 MG Menthol (Nice Tayo) 1 tayo PRN PRN TAYO 05/30/18 03:30 06/29/18 03:29 Verapamil HCl (Isoptin Tab) 80 mg TID PO 05/31/18 09:00 06/30/18 08:59 06/01/18 13:52 80 MG Miscellaneous Information (Consult Glycemic Management Pharmacy) 1 ea UD PRN N/A 05/31/18 08:16 06/30/18 08:15 Levofloxacin (Levaquin Tab) 500 mg DAILY@11 PO 06/01/18 11:00 06/05/18 10:59 06/01/18 11:46 500 MG Prednisone (PredniSONE TAB) 60 mg DAILY PO 05/31/18 12:00 06/30/18 11:59 06/01/18 08:11 60 MG Insulin Human NPH (novoLIN-N NPH) QDB SC 06/01/18 08:00 07/01/18 07:59 06/01/18 08:16 20 UNITS I & O: 24-Hour Column 06/02/18 08:00 Intake Total 600 ml Balance 600 ml Vital Signs: Date Time Temp Pulse Resp B/P (MAP) Pulse Ox O2 Delivery O2 Flow Rate FiO2 06/01/18 14:28 99 18 98 Nasal Cannula 4.0 06/01/18 12:17 79 18 97 Nasal Cannula 2.0 06/01/18 08:00 Nasal Cannula 2.0 06/01/18 07:53 36.3 80 18 167/111 (129) 95 BiPAP 06/01/18 07:26 74 18 96 BiPAP/CPAP 06/01/18 01:48 66 93 06/01/18 01:47 66 18 95 BiPAP/CPAP 06/01/18 00:05 Nasal Cannula 2.0 05/31/18 23:48 70 95 05/31/18 23:33 36.6 82 18 138/72 (94) 96 Nasal Cannula 2.0 05/31/18 19:06 87 16 95 Nasal Cannula 2.0 05/31/18 16:00 Nasal Cannula 2.0 05/31/18 14:54 36.7 69 20 144/75 (98) 98 Nasal Cannula 3.0 Laboratory Results: Last 24 Hours Test 05/31/18 16:15 05/31/18 20:16 06/01/18 02:04 06/01/18 07:17 Bedside Glucose 179 mg/dl 285 mg/dl 311 mg/dl White Blood Count 19.80 K/uL Red Blood Count 4.54 M/uL Hemoglobin 13.7 g/dL Hematocrit 41.8 % Mean Corpuscular Volume 92.1 fL Mean Corpuscular Hemoglobin 30.2 pg Mean Corpuscular Hemoglobin Concent 32.8 g/dl Platelet Count 267 K/uL Mean Platelet Volume 11.5 fL Neutrophils (%) (Auto) 61.8 % Lymphocytes (%) (Auto) 30.2 % Monocytes (%) (Auto) 7.1 % Eosinophils (%) (Auto) 0.1 % Basophils (%) (Auto) 0.1 % Neutrophils # (Auto) 12.27 K/uL Lymphocytes # (Auto) 5.97 K/uL Monocytes # (Auto) 1.40 K/uL Eosinophils # (Auto) 0.01 K/uL Basophils # (Auto) 0.02 K/uL RDW Standard Deviation 47.8 fL RDW Coefficient of Variation 14.3 % Immature Granulocyte % (Auto) 0.7 % Immature Granulocyte # (Auto) 0.13 K/uL Test 06/01/18 07:49 06/01/18 11:24 Bedside Glucose 156 mg/dl 137 mg/dl
[2018-06-01] MEDS ORDERED: VRP40 PO (16:10)
[2018-06-01] MEDS ORDERED: ALPR0.254 PO (16:10)
[2018-06-01] MEDS ORDERED: PRD10 PO (16:10)
[2018-06-01] MEDS ORDERED: LVQ500 PO (16:10)
[2018-06-01] MEDS ORDERED: INSUINJ20 SC (16:26)
--- NOTE | 2018-06-01 16:35 | Discharge Instructions ---
Discharge Instructions Date of Service Jun 01, 2018. Admission Reason for Admission: Acute Asthma Excerb.,Acute Resp Failure W/ Hypoxia Discharge Discharge Diagnosis / Problem: COPD exacerbation, asthma exacerbation, suspected SMITA Discharge Goals Goal(s): Improve function, Improve disease control, Diagnostic testing ( Pulmonary function testing, sleep study) Activity Recommendations Activity Limitations: resume your previous activity . Instructions / Follow-Up Instructions / Follow-Up Medications: - PREDNISONE: 60mg x 2 days, 50mg x 3 days, 40mg x 3 days, 30mg x 3 days, 20mg x 3 days, 10mg x 3 days - NOVOLIN INSULIN: check sugar in morning * 10 units for BSG less than 120 mg/dL * 20 units for BSG 120-180 mg/dL * 30 units for BSG > 180 mg/dL - XANAX: take three times a day for the next 14 days - LEVAQUIN: 500mg daily for 2 more days - VERAPAMIL: 80mg three times a day for migraine prophylaxis COPD/asthma exacerbation improved with steroids, antibiotics will d/c on Prednisone taper as above, Levaquin for two more days you need to get pulmonary function testing as outpatient, this can be arranged per Dr. Torres you need to take the Xanax three times a day for the next two weeks for vocal cord dysfunction suspected sleep apnea will arrange for sleep study at home, our rifle case repairer will help arrange diabetes with high sugars for the next 8 days, follow the above sliding scale for NPH insulin in the morning this will help prevent high blood sugars due to the Prednisone resume Metformin 1000mg twice a day follow a low carbohydrate diet migraine headaches: changed Propranolol to Verapamil to help prevent bronchospasm FOLLOW UP - Dr. Torres in one week, call on Monday for appointment - she needs to refer you to pulmonology as outpatient for PFT and a follow up visit Current Hospital Diet Patient's current hospital diet: AHA Diet (Heart Healthy), Diabetes Type 2 Diet Discharge Diet Recommended Diet: AHA Diet (Heart Healthy), Diabetes Type 2 Diet Pending Studies Studies pending at discharge: no Laboratory Results Hemoglobin A1c Test 05/29/18 02:50 Range/Units Estimated Average Glucose 180 mg/dl Hemoglobin A1c 7.9 H 4.5-5.6 % Lipid Panel Test 05/29/18 02:50 Range/Units Triglycerides Level 159 H 0-150 mg/dl Cholesterol Level 154 0-200 mg/dl HDL Cholesterol 48 mg/dl Cholesterol/HDL Ratio 3.2 LDL Cholesterol, Calculated 74 mg/dl Medical Emergencies . Who to Call and When: Medical Emergencies: If at any time you feel your situation is an emergency, please call 911 immediately. . Non-Emergent Contact Non-Emergency issues call your: Primary Care Provider Call Non-Emergent contact if: you have any medication questions . . "Provider Documentation" section prepared by Nickolas Ralph. . [place] Drug Monitoring Program Search Results: no issues identified
[2018-06-01] MEDS ORDERED: TRAM-10 PO (17:21)
[2018-06-04 22:19] LABS: RAST ALMOND CLASS 0; RAST ALMOND IGE <0.10 KU/L; SCALLOP CLASS 0; SCALLOP IGE <0.10 KU/L; SHRIMP CLASS 0; SHRIMP IGE <0.10 KU/L
--- NOTE | 2018-06-04 23:17 | Discharge Summary ---
Discharge Summary Date of Service Jun 01, 2018. 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 Brown Medication Reconciliation New Medications: Insulin Isophane (Human) (Novolin N U-100) 100 Unit/Ml Inj 10 UNITS SC QAM for 10 Days, #1 PEN 0 Refills administer per sliding scale provided Alprazolam (Alprazolam) 0.25 Mg Tab 0.25 MG PO Q8H for 14 Days, #42 TAB 0 Refills Levofloxacin (Levofloxacin) 500 Mg Tab 500 MG PO DAILY@11, #2 TAB 0 Refills Prednisone (Prednisone) 10 Mg Tab 60 MG PO DAILY, #57 TABS 0 Refills 60mg (6 tabs) x 2 days, 50mg x 3 days, 40mg x 3 days, 30mg x 3 days, 20mg x 3 days, 10mg x 3 days Verapamil HCl (Verapamil HCl) 40 Mg Tab 80 MG PO TID, #90 TAB 2 Refills Continued Medications: Albuterol Hfa (Ventolin Hfa) 200 Puffs/45051 Mcg Aers 2 PUFFS INH Q4-6H PRN for Shortness of Breath Aspirin (Aspirin Ec) 81 Mg Tab 81 MG PO QAM Atorvastatin (Lipitor) 80 Mg Tab 80 MG PO HS Clopidogrel (Plavix) 75 Mg Tab 75 MG PO QAM Diclofenac Sodium (Topical) (Voltaren 1% Top Gel) 1 % Gel 1 APPLN TOP [id number] Ipratropium-Albuterol (Duoneb) 3 Ml Nebu 1 TREATMENT INH Q6H PRN for Shortness of Breath Isosorbide Mononitrate (Isosorbide Mononitrate ER) 60 Mg Tabcr 60 MG PO QAM Lisinopril (Zestril) 5 Mg Tab 15 MG PO QAM Metformin Hcl (Glucophage) 1,000 Mg Tab 1000 MG PO BID Mometasone Furoate-Formoterol (Dulera 200/5 Mcg) 1 Aer Aer 2 PUFFS INH BID Nitroglycerin (Nitrostat) 0.4 Mg Tab 0.4 MG UT UD PRN for Chest Pain, BTL PLACE ONE TABLET UNDER THE TONGUE IF NEEDED FOR CHEST PAIN Pantoprazole (Protonix) 40 Mg Tab 40 MG PO QAM Paroxetine Hcl (Paxil) 40 Mg Tab 1 TAB PO QAM Polyethylene Glycol 3350 (Miralax) 1 Pow Pow 17 GM PO DAILY PRN for Constipation Promethazine Hcl (Phenergan) 25 Mg Tab 12.5 MG PO BID PRN for Nausea Ranitidine HCl (Ranitidine HCl) 150 Mg Tab 150 MG PO HS Tramadol (Ultram) 50 Mg Tab 50 MG PO Q4H PRN for Pain for 3 Days, #18 (This prescription has been renewed) Discontinued Medications: Prednisone (Prednisone) 20 Mg Tab 2 TAB PO DAILY, #5 TAB Propranolol Hcl (Propranolol Hcl Er) 80 Mg Cap 60 MG PO QAM Discharge Exam Patient feeling well on the day of discharge, breathing easier at rest and on exertion. Dr. Brown recommended two step test to evaluate for oxygen but after that she could be discharged. Two step showed that the patient did not need oxygen either at rest or on exertion. Discussed sleep study at home, nurse navigator had script and would help arrange for testing. Sugars elevated in the afternoon, discussed using NPH insulin at home while on Prednisone high doses. Patient said she felt comfortable doing this, said that she had a meter that works at home. Review of Systems: Constitutional: No fever, No chills, No sweats, No weight loss, No weakness , No fatigue, No problem reported Eyes: No worsening of vision, No eye pain, No redness, No discharge, No diplopia, No problem reported ENT: No hearing loss, No unusual epistaxis, No nasal symptoms, No sore throat, No tinnitus, No dental problems, No trouble swallowing, No problem reported Respiratory: + cough, + dyspnea on exertion, No sputum, No wheezing, No shortness of breath, No dyspnea at rest, No hemoptysis, No problem reported Cardiovascular: No chest pain, No orthopnea, No PND, No edema, No claudication, No palpitations, No problem reported Abdomen: No pain, No nausea, No vomiting, No diarrhea, No constipation, No GI bleeding, No problem reported Musculoskeletal: No joint pain, No muscle pain, No swelling, No calf pain, No problem reported Genitourinary - Female: No dysuria, No urinary frequency, No urinary urgency , No urinary incontinence Neurologic: No memory loss, No paralysis, No weakness, No numbness/tingling , No vertigo, No balance problems, No problem reported Psychiatric: No depression symptoms, No anhedonism, No anxiety, No insomnia , No substance abuse, No problem reported Endocrine: No fatigue, No excessive thirst, No excessive urination, No problem reported Hematologic / Lymphatic: No abnormal bleeding/bruising, No clotting problems , No swollen lymph nodes, No night sweats, No problem reported Integumentary: No rash, No itch, No new/changing skin lesions, No color change, No bleeding, No problem reported Physical Exam: General Appearance: no apparent distress, + obese Eyes: normal inspection, EOMI, sclerae normal ENT: normal ENT inspection, hearing grossly normal, pharynx normal Neck: supple, no adenopathy, no JVD, trachea midline Respiratory/Chest: chest non-tender, normal breath sounds, no respiratory distress, no accessory muscle use, + wheezing (faint, end exhalation) Cardiovascular: regular rate, rhythm, no edema, no gallop, no JVD, no murmur , normal peripheral pulses Abdomen / GI: normal bowel sounds, non tender, soft, no organomegaly Extremities: normal inspection, no calf tenderness, normal capillary refill , no pedal edema, normal range of motion, pelvis stable Neurologic/Psychiatric: executive administrator II-XII nml as tested, no motor/sensory deficits , alert, normal mood/affect, normal reflexes, oriented x 3 Skin: normal color, warm/dry, no rash Hospital Course 52 yo female with h/o asthma, possible COPD, presented with acute worsening of shortness of breath, placed on BIPAP at time of admission Acute respiratory failure with hypoxia and hypercapnia/asthma/COPD exacerbation - improved with Solu Medrol, changed to Prednisone 60mg daily will complete extended taper 60mg x 2 days, then 50mg x 3 days, 40mg x 3 days, 30mg x 3 days, 20mg x 3 days and 10mg x 3 days and stop - complete Levaquin PO daily for 2 more days - allergen testing sent, still pending - continue nebulizers - appreciate recommendations from Dr. 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 - snores at night, always tired, falls asleep during the day, obese, large neck circumference - use CPAP HS, patient felt much better on CPAP, well rested, less fatigue - encouraged her to get sleep study outpatient, can set up for home study, will sign order and arrange through case management - confirms that she snores, is tired all the time during the day Migraine headaches - was taking propranolol for prophylaxis, changed to Verapamil 80mg TID to prevent possible bronchospasm CAD/stent to coronary artery/cerebrovascular disease/hypertension-- Continue aspirin 81 mg every morning, clopidogrel 75 mg every morning, isosorbide mononitrate ER 60 mg every morning, propranolol ER 60 mg every morning. Hold lisinopril 15 mg every morning. Diabetes mellitus--resume metformin 1000 mg p.o. twice daily on discharge hyperglycemia due to steroids will use NPH insulin the next 8 days while on higher doses of Prednisone if morning glucose < 120 she will take 10 units if 120-180 she will take 20 units if > 180 she will take 30 units after 8 days she can just use Metformin instructed to follow low carb diet Hyperlipidemia-- Continue atorvastatin 80 mg at bedtime. Check a fasting lipid panel GERD-- Continue pantoprazole 40 mg every morning and ranitidine at 50 mg in evening. Anxiety-- Continue paroxetine daily every morning. will use Xanax TID for the next 14 days to help prevent any vocal cord spasm Total Time Spent: Greater than 30 minutes This includes examination of the patient, discharge planning, medication reconciliation, and communication with other providers. Discharge Instructions Please refer to the electronic Patient Visit Report (Discharge Instructions) for additional information. Follow-Up Dr. Torres in one week Additional Copies To Nita Torres M.D.
== END 2018-06-01 17:47 | disposition home or self-care (01) | DRG 190 ==
LOC: EDBD 02:18 → C.EDA 02:20 → C.2E 05:14 → ENRESERV 05:42 → C.MS2W 05-31 10:46
PROVIDERS: ADMIT Hospitalist; ATTEND Internal Medicine
DX: J44.1 Chronic obstructive pulmonary disease with (acute) exacerbation (principal); J96.01 Acute respiratory failure with hypoxia; J96.02 Acute respiratory failure with hypercapnia; J45.901 Unspecified asthma with (acute) exacerbation; E11.9 Type 2 diabetes mellitus without complications; I10 Essential (primary) hypertension; E78.5 Hyperlipidemia, unspecified; I25.10 Atherosclerotic heart disease of native coronary artery without angina pectoris; K21.9 Gastro-esophageal reflux disease without esophagitis; F41.9 Anxiety disorder, unspecified; F17.200 Nicotine dependence, unspecified, uncomplicated; G47.33 Obstructive sleep apnea (adult) (pediatric); Z79.02 Long term (current) use of antithrombotics/antiplatelets; Z79.52 Long term (current) use of systemic steroids; Z79.82 Long term (current) use of aspirin; Z79.84 Long term (current) use of oral hypoglycemic drugs; Z79.899 Other long term (current) drug therapy

== ENCOUNTER 2018-12-04 21:14 | Observation (INO) ==
[2018-12-04] MEDS ORDERED: fentaNYL citrate 100 MCG/2 ML VIAL IV STA ×2 (21:28→23:05)
[2018-12-04 21:55] LABS: Hematocrit (blood only) 39.8 % (37-47); Hemoglobin 12.8 g/dL (12.0-16.0); Mean Corpuscular Hgb Conc 32.2 g/dL (32-36); Mean Corpuscular Volume 94.3 fL (80-100); Mean Platelet Volume 10.9 fL (7.4-10.4); Platelet Count 234 K/uL (130-400); RDW Coefficient of Variation 14.3 % (11.5-14.5); RDW Standard Deviation 48.9 fL (36.4-46.3); Red Blood Count 4.22 M/uL (4.2-5.4); White Blood Count 9.06 K/uL (4.8-10.8)
[2018-12-04 21:59] LABS: iSTAT Hemoglobin 13.3 g/dl (12.0-16.0); iSTAT Ionized Calcium 1.2 mmol/l (1.12-1.32)
[2018-12-04] MEDS ORDERED: NITROGLYCERIN 2% OINTMENT 30GM TUBE EXT ONE (22:06)
[2018-12-04 22:14] LABS: Alanine Aminotransferase 25 U/L (12-78); Albumin Level 3.2 gm/dl (3.4-5.0); Aspartate Aminotransferase 15 U/L (15-37); BUN Creatinine Ratio 18.1 (10-20); Blood Urea Nitrogen 16 mg/dl (7-18); Carbon Dioxide 24 mmol/L (21-32); Chloride 108 mmol/L (98-107); Creatinine Clr Calc Pharmacy 92.2 ml/min; Est GFR (African American) 85.2; Est GFR (Non-African American) 73.5; Glucose 143 mg/dl (70-99); Potassium 3.7 mmol/L (3.5-5.1); Sodium 142 mmol/L (136-145)
[2018-12-04 22:19] LABS: Albumin Globulin Ratio 0.8 (0.9-2); Alkaline Phosphatase 105 U/L (45-117); Bilirubin,Total 0.2 mg/dl (0.2-1); Globulin 4.1 gm/dl (2.5-4.0); NT Pro B Type Natriuretic Pept 86 pg/ml (0-900); Total Protein 7.3 gm/dl (6.4-8.2); Troponin I < 0.015 ng/ml (0-0.045)
[2018-12-04] MEDS ORDERED: OPTIRAY 320 125ml IV PRN (22:19)
--- NOTE | 2018-12-04 22:38 | CT Scan Report ---
CT angio chest dissec wo/w con CT DOSE: HISTORY: Pain cp into back TECHNIQUE: Multiaxial CT images of the chest, abdomen, and pelvis were performed both before and afte r the intravenous administration of contrast to evaluate the aorta. Maximal intensity projection imag es were also obtained. A dose lowering technique was utilized adhering to the principles of ALARA. COMPARISON STUDY: 03/02/2018 FINDINGS: Lungs are clear. The thoracic aorta is normal in course and caliber. No evidence for aneury sm or dissection. No significant mediastinal or hilar adenopathy. Moderate degenerative changes thoracic spine. No evidence for compression deformity. IMPRESSION: 1. No evidence for aortic dissection. 2. The lungs are clear. 3. Moderate degenerative changes thoracic spine. The above report was generated using voice recognition software. It may contain grammatical, syntax or spelling errors. Electronically signed by: Tl Grullon M.D. 12/04/2018 10:36 PM
--- NOTE | 2018-12-04 22:42 | CT Scan Report ---
Study: CT angiogram abdomen and pelvis HISTORY: Pain. Prior studies 09/11/2015 FINDINGS: Mild atherosclerotic change of the abdominal and pelvic arterial vasculature. No evidence f or aneurysm or dissection. Overall configuration of liver spleen and pancreas are unremarkable. Nonobstructive bowel pattern. Bl adder is midline. No acute bony abnormality. Moderate degenerative change of the low thoracic as well as lumbar spine. IMPRESSION: 1. Mild scattered abdominal and pelvic atherosclerotic change. 2. No evidence for aneurysm or dissection. 3. Moderate degenerative change of the thoracic and lumbar spine Electronically signed by: Tl Grullon M.D. 12/04/2018 10:41 PM
[2018-12-04 23:11] LABS: Eosinophils # (manual) 0.16 K/uL (0-0.5); Monocytes # (manual) 0.48 K/uL (0.11-0.59); Monocytes % (manual) 5.3 %; Neutrophils % (manual) 28.9 %; RBC Morphology Unremarkable
--- NOTE | 2018-12-05 00:38 | History & Physical Report ---
Date of Service December 04, 2018 Assessment & Plan (1) Chest pain: Known CAD. Multiple risk factors. Atypical presentation of CP. EKG with no evidence of acute ischemia. Troponin x 1 negative -Admit to medical floor with tele -Trend cardiac enzymes -Continue ASA 81mg po daily -Continue Atorvastatin 80mg po daily -Continue Plavix -Continue Lisinopril -Patient may benefit from BB therapy -Patient may benefit from f/u with Cardiology on DC (2) CAD (coronary artery disease): As above. -Continue ASA, Plavix, Lipitor and Lisinopril -Continue Imdur -Patient may benefit from BB therapy (3) Diabetes: EB=999 at present. A1C=8.2 11/07/18 -Lantus 10u BID -ISS (4) Hypertension: Blood pressure stable at present -Continue medications as above -Continue to monitor (5) Asthma: Patient with scattered wheezing on exam -Smoking cessation counseling -Continue tiotropium -Nebs PRN -Continue Singulair (6) GERD (gastroesophageal reflux disease): Continue Protonix and Ranitidine (7) Anxiety: Continue Welbutrin F/E/N - Heplock. Monitor electrolytes and replete as needed. Heart healthy diet Ppx - Ambulation, low risk for DVT. On ASA and Plavix for CAD Code - Full Dispo - Med tele History of Present Illness Chief Complaint: chest pain Primary Care Provider: Nita Torres MD 53yo female with history of CAD s/p stent x 2 in 2011, HTN, HLP, DM, TIA, GERD Anxiety and Asthma presenting with acute onset left sided CP. Patient was washing dishes this evening when she had acute onset of CP on the left side of her chest. Pain radiated to her arm, neck and back. 10/10 in severity, sharp in nature. She became dizzy and diaphoretic and almost fell. Her gave her a Nitro which improved pain to 7/10. Then the patient laid down and the CP returned approximately 30 minutes later with nausea and 3 episodes of non-bloody /non-bilious vomiting. Nitro again with no relief. Patient has been seen in the past for non-cardiac chest pain, most recently 2016. She had a cardiac catheterization performed 04/03/15 which was negative, stents patent. She had a dobutamine stress echocardiogram on 11/21/16 which was negative for inducible ischemia as well. Patient states that she has occasional substernal chest pressure after walking up a hill by her home which is relieved with rest and Nitro. That pain is not like her CP tonight These pains have not become more frequent or severe and typically do not occur at rest. ER Course: Fentanyl 100mcg, Nitropaste, Fentanyl Allergies Allergy/AdvReac Type Severity Reaction Status Date / Time No Known Allergies Allergy Verified 12/04/18 23:14 Home Medications Home Medications Medication Instructions Recorded Confirmed Type albuterol sulfate 2 puff INHALATION Q4 PRN #0 07/18/16 12/04/18 History aspirin [Aspirin Low Dose] 81 mg PO QAM #0 12/14/16 12/04/18 History ipratropium-albuterol 3 ml INHALATION Q6 PRN #0 12/14/16 12/04/18 History isosorbide mononitrate 60 mg PO QAM #0 12/14/16 12/04/18 History nitroglycerin [Nitrostat] 0.4 mg SUBLINGUAL DIRECTED PRN 12/14/16 12/04/18 History #0 btl ranitidine HCl 150 mg PO HS #0 12/14/16 12/04/18 History lisinopril 10 mg PO QAM #0 05/04/17 12/04/18 History atorvastatin 80 mg PO HS #0 05/25/18 12/04/18 History clopidogrel [Plavix] 75 mg PO QAM #0 05/25/18 12/04/18 History diclofenac sodium [Voltaren] 2 g TOPICAL QID PRN #0 05/25/18 12/04/18 History pantoprazole 40 mg PO QAM #0 05/25/18 12/04/18 History insulin NPH isoph U-100 human 10 - 30 unit SUBCUT BIDM 06/28/18 12/04/18 History [Novolin N NPH U-100 Insulin] bupropion HCl 150 mg PO BID 12/04/18 12/04/18 History diclofenac potassium 50 mg PO Q8 PRN 12/04/18 12/04/18 History docusate sodium [Colace] 100 mg PO BID 12/04/18 12/04/18 History ergocalciferol (vitamin D2) 50,000 unit PO WK 12/04/18 12/04/18 History [Vitamin D2] gabapentin 300 mg PO BID 12/04/18 12/04/18 History hydrocortisone-pramoxine 1 applic [place] DIRECTED PRN 12/04/18 12/04/18 History [Proctofoam HC] metformin 1,500 mg PO QDD 12/04/18 12/04/18 History mometasone-formoterol [Dulera] 2 puff INHALATION BID 12/04/18 12/04/18 History montelukast [Singulair] 10 mg PO HS 12/04/18 12/04/18 History polyethylene glycol 3350 [Miralax] 17 g PO DAILY 12/04/18 12/04/18 History prochlorperazine maleate 10 mg PO Q6 PRN 12/04/18 12/04/18 History tiotropium bromide [Spiriva 2 puff INHALATION DAILY 12/04/18 12/04/18 History Respimat] verapamil 80 mg PO TID 12/04/18 12/04/18 History Past Med/Surg History Medical History CAD (coronary artery disease) CHF (congestive heart failure) Leaky heart valve Obstructive sleep apnea on CPAP Anxiety Asthma Atrial tachycardia [facility] Chronic back pain Chronic obstructive pulmonary disease Degenerative disc disease Depression Diabetes mellitus, type 2 IDDM Facial fracture (2014) WITH RECONSTRUCTION Fracture tibia/fibula LEFT WITH ORIF GERD (gastroesophageal reflux disease) History of recent steroid use FINISHED (MEDROL DOSEPAK) MAY 2018 --> ASTHMA FLARE UP Hyperlipidemia Hypertension Migraine Morbid obesity Osteoarthritis Post traumatic stress disorder Transient ischemic attack (TIA) PLAVIX. FOLLOWS WITH PCP Surgical History History of bilateral tubal ligation History of cardiac cath X2 STENTS - (~2010, IN [place], [place]). NO STENTS - ([facility] @ ~2014) History of colonoscopy History of esophagogastroduodenoscopy (EGD) History of heart artery stent X2 STENTS (2010) UNSURE OF KIND. NO STENT CARDS PER PT. Status post right foot surgery Family History Mother Family history of diabetes mellitus Father Family history of diabetes mellitus Social History Current Living Situation: Spouse Other Information That Helps Us Care for You: No Feels Safe at Home: Yes Safety Concerns: Feels Safe At This Time Smoking Status: Current every day smoker Tobacco Type: cigarettes Do You Dip or Chew Tobacco: No Second Hand Exposure: Yes Tobacco Cessation Education Requested by Patient: No Hx Alcohol Use: No Hx Substance Use: No Beliefs That Will Affect Care: None Preferred Language: [place] Communication Ability: Effective Designer Architect Required: No Review of Systems All systems reviewed & are unremarkable except as noted in HPI & below Patient denies worsening anxiety symptoms or GERD symptoms at present Patient denies pulling muscle or straining Physical Exam 2 Vital Signs (Past 24 Hours): Last Vital Signs Temp 36.2 C L 12/04/18 21:12 Pulse 95 H 12/04/18 23:55 Resp 19 12/04/18 23:55 BP 106/67 12/04/18 23:55 Pulse Ox 94 12/04/18 23:55 Physical Exam: General: patient resting comfortably, NAD, non-toxic in appearance, AA&O x 4 Skin: warm, dry, intact, no rashes or lesions HEENT: NC/AT, PERRL, EOMI, anicteric sclera, conjunctiva without injection, external ear normal to inspection and nontender, nares patent, moist mucus membranes, dentition intact, no oropharyngeal lesions, neck supple, trachea midline, no LAD, no thyromegaly, no JVD Heart: +S1/S2, regular, no m/r/g, +CW pain with palpation of left ribs Lungs: equal air entry bilaterally, no rales/rhonchi/wheezes Abd: +BS, soft, NT/ND, no masses/organomegaly/ascites Ext: warm, 2+ pulses in UE/LE bilaterally, no clubbing/cyanosis or edema Neuro: nonfocal, patient AA&O x 4, speech intact, no facial droop, moving all extremities on command with equal strength 5/5 Results & Data Laboratory Results Lab Results 12/04/18 12/04/18 12/04/18 Range/Units 21:38 21:38 21:38 WBC 9.06 (4.8-10.8) K/uL RBC 4.22 (4.2-5.4) M/uL Hgb 12.8 (12.0-16.0) g/dL POC Hgb (12.0-16.0) g/dl Hct 39.8 (37-47) % POC Hct (37-47) % MCV 94.3 (80-100) fL MCH 30.3 (25-34) pg MCHC 32.2 (32-36) g/dL RDW Std Deviation 48.9 H (36.4-46.3) fL RDW Coeff of Majo 14.3 (11.5-14.5) % Plt Count 234 (130-400) K/uL MPV 10.9 H (7.4-10.4) fL Neutrophils % (Manual) 28.9 % Lymphocytes % (Manual) 64.0 % Monocytes % (Manual) 5.3 % Eosinophils % (Manual) 1.8 % Neutrophils # (Manual) 2.62 (1.4-6.5) K/uL Total Absolute Neuts 2.62 (1.4-6.5) K/uL Lymphocytes # (Manual) 5.80 H (1.2-3.4) K/uL Total Abs Lymphocytes 5.80 H (1.2-3.4) K/uL Monocytes # (Manual) 0.48 (0.11-0.59) K/uL Eosinophils # (Manual) 0.16 (0-0.5) K/uL RBC Morphology Unremarkable PT 10.1 (9.0-12.0) Seconds INR 1.0 (0.9-1.1) POC Sodium (135-144) mEq/L Sodium 142 (136-145) mmol/L POC Potassium (3.3-5.0) mEq/L Potassium 3.7 (3.5-5.1) mmol/L POC Chloride (101-112) mEq/L Chloride 108 H (98-107) mmol/L Carbon Dioxide 24 (21-32) mmol/L POC Total CO2 (24-31) mEq/l Anion Gap 10.0 (3-11) POC Anion Gap (16-25) mmol/L POC BUN (7-18) mg/dl BUN 16 (7-18) mg/dl Creatinine 0.89 (0.6-1.2) mg/dl POC Creatinine (0.6-1.3) mg/dl Est Cr Clr Drug Dosing 92.2 ml/min Est GFR ( Amer) 85.2 Est GFR (Non-Af Amer) 73.5 BUN/Creatinine Ratio 18.1 (10-20) Glucose 143 H (70-99) mg/dl POC Glucose (70-99) POC Glucose (other) (70-99) mg/dl Calcium 9.0 (8.5-10.1) mg/dl POC Ioniz Calcium Wilfredo (1.12-1.32) mmol/l Magnesium 2.0 (1.8-2.4) mg/dl Total Bilirubin 0.2 (0.2-1) mg/dl AST 15 (15-37) U/L ALT 25 (12-78) U/L Alkaline Phosphatase 105 (45-117) U/L POC Troponin I (0-0.045) ng/ml Troponin I < 0.015 (0-0.045) ng/ml NT-Pro-B Natriuret Pep 86 (0-900) pg/ml Total Protein 7.3 (6.4-8.2) gm/dl Albumin 3.2 L (3.4-5.0) gm/dl Globulin 4.1 H (2.5-4.0) gm/dl Albumin/Globulin Ratio 0.8 L (0.9-2) Lipase 310 (73-393) U/L 12/04/18 12/04/18 12/05/18 Range/Units 21:44 21:46 01:46 WBC (4.8-10.8) K/uL RBC (4.2-5.4) M/uL Hgb (12.0-16.0) g/dL POC Hgb 13.3 (12.0-16.0) g/dl Hct (37-47) % POC Hct 39 (37-47) % MCV (80-100) fL MCH (25-34) pg MCHC (32-36) g/dL RDW Std Deviation (36.4-46.3) fL RDW Coeff of Majo (11.5-14.5) % Plt Count (130-400) K/uL MPV (7.4-10.4) fL Neutrophils % (Manual) % Lymphocytes % (Manual) % Monocytes % (Manual) % Eosinophils % (Manual) % Neutrophils # (Manual) (1.4-6.5) K/uL Total Absolute Neuts (1.4-6.5) K/uL Lymphocytes # (Manual) (1.2-3.4) K/uL Total Abs Lymphocytes (1.2-3.4) K/uL Monocytes # (Manual) (0.11-0.59) K/uL Eosinophils # (Manual) (0-0.5) K/uL RBC Morphology PT (9.0-12.0) Seconds INR (0.9-1.1) POC Sodium 144 (135-144) mEq/L Sodium (136-145) mmol/L POC Potassium 3.7 (3.3-5.0) mEq/L Potassium (3.5-5.1) mmol/L POC Chloride 106 (101-112) mEq/L Chloride (98-107) mmol/L Carbon Dioxide (21-32) mmol/L POC Total CO2 26 (24-31) mEq/l Anion Gap (3-11) POC Anion Gap 17.0 (16-25) mmol/L POC BUN 16 (7-18) mg/dl BUN (7-18) mg/dl Creatinine (0.6-1.2) mg/dl POC Creatinine 0.9 (0.6-1.3) mg/dl Est Cr Clr Drug Dosing ml/min Est GFR ( Amer) Est GFR (Non-Af Amer) BUN/Creatinine Ratio (10-20) Glucose (70-99) mg/dl POC Glucose 167 H (70-99) POC Glucose (other) 140 H (70-99) mg/dl Calcium (8.5-10.1) mg/dl POC Ioniz Calcium Wilfredo 1.20 (1.12-1.32) mmol/l Magnesium (1.8-2.4) mg/dl Total Bilirubin (0.2-1) mg/dl AST (15-37) U/L ALT (12-78) U/L Alkaline Phosphatase (45-117) U/L POC Troponin I < 0.03 (0-0.045) ng/ml Troponin I (0-0.045) ng/ml NT-Pro-B Natriuret Pep (0-900) pg/ml Total Protein (6.4-8.2) gm/dl Albumin (3.4-5.0) gm/dl Globulin (2.5-4.0) gm/dl Albumin/Globulin Ratio (0.9-2) Lipase (73-393) U/L Diagnostic Findings Study: CT angiogram abdomen and pelvis HISTORY: Pain. Prior studies 09/11/2015 FINDINGS: Mild atherosclerotic change of the abdominal and pelvic arterial vasculature. No evidence for aneurysm or dissection. Overall configuration of liver spleen and pancreas are unremarkable. Nonobstructive bowel pattern. Bladder is midline. No acute bony abnormality. Moderate degenerative change of the low thoracic as well as lumbar spine. IMPRESSION: 1. Mild scattered abdominal and pelvic atherosclerotic change. 2. No evidence for aneurysm or dissection. 3. Moderate degenerative change of the thoracic and lumbar spine Electronically signed by: Tl Grullon M.D. 12/04/2018 10:41 PM Dictated: 12/04/182237 Transcribed: 12/04/182237 CT angio chest dissec wo/w con CT DOSE: HISTORY: Pain cp into back TECHNIQUE: Multiaxial CT images of the chest, abdomen, and pelvis were performed both before and after the intravenous administration of contrast to evaluate the aorta. Maximal intensity projection images were also obtained. A dose lowering technique was utilized adhering to the principles of ALARA. COMPARISON STUDY: 03/02/2018 FINDINGS: Lungs are clear. The thoracic aorta is normal in course and caliber. No evidence for aneurysm or dissection. No significant mediastinal or hilar adenopathy. Moderate degenerative changes thoracic spine. No evidence for compression deformity. IMPRESSION: 1. No evidence for aortic dissection. 2. The lungs are clear. 3. Moderate degenerative changes thoracic spine. The above report was generated using voice recognition software. It may contain grammatical, syntax or spelling errors. Electronically signed by: Tl Grullon M.D. 12/04/2018 10:36 PM ECG Additional Comments: NSR at 100bpm, normal axis, LVH, non-specific TW abnormality, no acute ishemia, [id number] Code Status & VTE Plan Code Status FULL VTE Prophylaxis Plan VTE Prophylaxis will be ordered: Yes Critical Care Time Critical Care Time: No _ (1) Diabetes Diabetes mellitus type: type 2 Diabetes mellitus alf insulin use: with alf use Diabetes mellitus complication status: without complication Qualified Code(s): E11.9 - Type 2 diabetes mellitus without complications; Z79.4 - assisted (current) use of insulin (2) CAD (coronary artery disease) Coronary Disease-Associated Artery/Lesion type: [place] artery [place] vs. transplanted heart: [place] heart Associated angina: with unstable angina Qualified Code(s): I25.110 - Atherosclerotic heart disease of [place] coronary artery with unstable angina pectoris (3) GERD (gastroesophageal reflux disease) Esophagitis presence: esophagitis presence not specified Qualified Code(s): K21.9 - Gastro-esophageal reflux disease without esophagitis (4) Chest pain Chest pain type: unspecified Ischemic chest pain type: Qualified Code(s): R07.9 - Chest pain, unspecified (5) Hypertension Hypertension type: essential hypertension Qualified Code(s): I10 - Essential (primary) hypertension (6) Asthma Asthma severity: mild Asthma persistence: persistent Asthma complication type: uncomplicated Qualified Code(s): J45.30 - Mild persistent asthma, uncomplicated
[2018-12-05] MEDS ORDERED: ACETAMINOPHEN 325 MG TAB PO PRN (01:04)
[2018-12-05] MEDS ORDERED: GLUCOSE 40% GEL 15 GM TUBE PO PRN (01:04)
[2018-12-05] MEDS ORDERED: DICLOFENAC SOD 1% GEL 100 GM TUBE EXT PRN (01:04)
[2018-12-05] MEDS ORDERED: DEXTROSE 50% 50 ML SYRINGE IV PRN (01:04)
[2018-12-05] MEDS ORDERED: ONDANSETRON INJ 2 MG/ML 2 ML VIAL IV PRN (01:04)
[2018-12-05] MEDS ORDERED: GLUCAGON FOR INJ 1 MG VIAL SQ PRN (01:04)
[2018-12-05] MEDS ORDERED: GLUCOSE 10 TABS/TUBE PO PRN (01:04)
[2018-12-05] MEDS ORDERED: ALBUTEROL 0.083% NEBU SOLN 3 ML VIAL NEB PRN (01:04)
[2018-12-05] MEDS ORDERED: CARBOHYDRATES FOR HYPOGLYCEMIA PO PRN (01:04)
[2018-12-05] MEDS: MoRPHine SULFATE 4 MG/ML 1 ML CARP\\VIAL IV PRN ×2 (01:48→03:53)
[2018-12-05] MEDS: INSULIN GLARGINE SOLOSTAR 100 UNITS/ML 3 ML PEN SC SCH ×3 (01:48→21:42)
[2018-12-05 01:50] LABS: Prothrombin Time 10.1 Seconds (9.0-12.0)
[2018-12-05] MEDS: ALBUT/IPRATROP 3MG/0.5MG NEB 3 ML VIAL NEB SCH ×6 (03:30→23:13)
--- NOTE | 2018-12-05 03:59 | Emergency Department Note ---
Entered by Thelma Garcia acting as a scribe for Juana Benavidez DO History of Present Illness General Chief complaint: Chest Pain Stated complaint: CHEST PAIN Time Seen by Provider: 12/04/18 21:15 Source: patient Mode of arrival: EMS Limitations: no limitations History of Present Illness Provider complaint: Chest pain Onset (ago): hour(s) less than 1 Location: chest Radiation: back, neck and other (down left arm) Severity: moderate Pain Consistency: + constant Maximum Pain Intensity: 8 Relieved By: not by immobilization Treatments prior to arrival: other (2 nitro, 1 aspirin) Patient is a 53 year old female presenting to the ED via EMS with left sided chest pain beginning just [employer]. Patient states that she was doing the dishes when she began to feel lightheaded and chest pain started to develop. She notes she lowered herself to the floor upon onset. Patient then adds her took her to lay down to help subside the pain and took 1 nitro. After pain returned, patient took another nitroglycerin and called EMS. EMS did give aspirin in the unit. Patient shares pain was moderate in severity and rated an 8/10. She states pain radiated to up the left jaw, down the left arm and straight through to the back. She shares that she does have a history of TIA and todays lightheadedness feels slightly similar to previous TIA episodes, but new left sided chest pain and radiation is new. She denies feeling lightheaded or dizzy at the moment, but still is having CP. She shares she did have 2 stents placed in 2004 as precaution after stress test showed abnormalities. Patient notes her father of [place] at 53, and mother had heart problems. Patient also includes she has a history of gallbladder infections, but denies kidney problems. She lastly shares she was recently placed on Vitamin D. She did have an increase of metformin from 1000mg to 1500mg, and is now taking her insulin everyday instead of as needed. No recent trauma or illness, no other change in activity recently. Home Medications Home Medications Medication Instructions Recorded Confirmed Type albuterol sulfate 2 puff INHALATION Q4 PRN #0 07/18/16 12/04/18 History aspirin [Aspirin Low Dose] 81 mg PO QAM #0 12/14/16 12/04/18 History ipratropium-albuterol 3 ml INHALATION Q6 PRN #0 12/14/16 12/04/18 History isosorbide mononitrate 60 mg PO QAM #0 12/14/16 12/04/18 History nitroglycerin [Nitrostat] 0.4 mg SUBLINGUAL DIRECTED PRN 12/14/16 12/04/18 History #0 btl ranitidine HCl 150 mg PO HS #0 12/14/16 12/04/18 History lisinopril 10 mg PO QAM #0 05/04/17 12/04/18 History atorvastatin 80 mg PO HS #0 05/25/18 12/04/18 History clopidogrel [Plavix] 75 mg PO QAM #0 05/25/18 12/04/18 History diclofenac sodium [Voltaren] 2 g TOPICAL QID PRN #0 05/25/18 12/04/18 History pantoprazole 40 mg PO QAM #0 05/25/18 12/04/18 History insulin NPH isoph U-100 human 10 - 30 unit SUBCUT BIDM 06/28/18 12/04/18 History [Novolin N NPH U-100 Insulin] bupropion HCl 150 mg PO BID 12/04/18 12/04/18 History diclofenac potassium 50 mg PO Q8 PRN 12/04/18 12/04/18 History docusate sodium [Colace] 100 mg PO BID 12/04/18 12/04/18 History ergocalciferol (vitamin D2) 50,000 unit PO WK 12/04/18 12/04/18 History [Vitamin D2] gabapentin 300 mg PO BID 12/04/18 12/04/18 History hydrocortisone-pramoxine 1 applic SD DIRECTED PRN 12/04/18 12/04/18 History [Proctofoam HC] metformin 1,500 mg PO QDD 12/04/18 12/04/18 History mometasone-formoterol [Dulera] 2 puff INHALATION BID 12/04/18 12/04/18 History montelukast [Singulair] 10 mg PO HS 12/04/18 12/04/18 History polyethylene glycol 3350 [Miralax] 17 g PO DAILY 12/04/18 12/04/18 History prochlorperazine maleate 10 mg PO Q6 PRN 12/04/18 12/04/18 History tiotropium bromide [Spiriva 2 puff INHALATION DAILY 12/04/18 12/04/18 History Respimat] verapamil 80 mg PO TID 12/04/18 12/04/18 History Allergies Allergy/AdvReac Type Severity Reaction Status Date / Time No Known Allergies Allergy Verified 12/04/18 23:14 Past Med/Surg History Medical History CAD (coronary artery disease) CHF (congestive heart failure) Leaky heart valve Obstructive sleep apnea on CPAP Anxiety Asthma Atrial tachycardia [facility] Chronic back pain Chronic obstructive pulmonary disease Degenerative disc disease Depression Diabetes mellitus, type 2 IDDM Facial fracture (2014) WITH RECONSTRUCTION Fracture tibia/fibula LEFT WITH ORIF GERD (gastroesophageal reflux disease) History of recent steroid use FINISHED (MEDROL DOSEPAK) MAY 2018 --> ASTHMA FLARE UP Hyperlipidemia Hypertension Migraine Morbid obesity Osteoarthritis Post traumatic stress disorder Transient ischemic attack (TIA) PLAVIX. FOLLOWS WITH PCP Surgical History History of bilateral tubal ligation History of cardiac cath X2 STENTS - (~2010, IN [place], [place]). NO STENTS - ([facility] @ ~2014) History of colonoscopy History of esophagogastroduodenoscopy (EGD) History of heart artery stent X2 STENTS (2010) UNSURE OF KIND. NO STENT CARDS PER PT. Status post right foot surgery Family History Mother Family history of diabetes mellitus Father Family history of diabetes mellitus Social History Current Living Situation: Spouse Other Information That Helps Us Care for You: No Feels Safe at Home: Yes Safety Concerns: Feels Safe At This Time Smoking Status: Current every day smoker Tobacco Type: cigarettes Do You Dip or Chew Tobacco: No Second Hand Exposure: Yes Tobacco Cessation Education Requested by Patient: No Hx Alcohol Use: No Hx Substance Use: No Beliefs That Will Affect Care: None Preferred Language: Hungarian Communication Ability: Effective Fiscal Accountant Required: No Review of Systems See HPI for pertinent positives & negatives. and A total of 10 systems reviewed and were otherwise negative Physical Exam Vital Signs Vital Signs - 24 hr 12/04/18 21:12 12/04/18 21:40 12/04/18 21:55 Temperature 36.2 C L Temperature Source Oral Sepsis Recent Fever Within 48 Hours No Sepsis New/Unexplained Change in Mental Status No Sepsis Action Taken by Nursing No Action Required Pulse Rate 107 H Pulse Rate [Left Finger] 99 H Pulse Rhythm [Left Finger] Pulse Strength [Left Finger] Respiratory Rate 25 H 27 H Respiratory Effort / Characteristics Respiratory Depth Respiratory Pattern Blood Pressure 128/79 Blood Pressure [Left Arm] 125/77 Blood Pressure [Right Arm] Blood Pressure Mean 95 Blood Pressure Mean [Left Arm] 93 Blood Pressure Mean [Right Arm] Blood Pressure Position [Left Arm] Blood Pressure Position [Right Arm] Pulse Oximetry 96 96 94 Oxygen Delivery Method Room Air Room Air Room Air 12/04/18 23:25 12/04/18 23:55 12/05/18 00:52 Temperature Temperature Source Sepsis Recent Fever Within 48 Hours Sepsis New/Unexplained Change in Mental Status Sepsis Action Taken by Nursing Pulse Rate 95 H Pulse Rate [Left Finger] 90 95 H Pulse Rhythm [Left Finger] Regular Regular Pulse Strength [Left Finger] Normal Normal Respiratory Rate 16 19 16 Respiratory Effort / Characteristics Non-Labored Non-Labored Respiratory Depth Normal Normal Respiratory Pattern Regular Blood Pressure 107/68 Blood Pressure [Left Arm] 110/68 106/67 Blood Pressure [Right Arm] Blood Pressure Mean Blood Pressure Mean [Left Arm] 82 80 Blood Pressure Mean [Right Arm] Blood Pressure Position [Left Arm] Lying Lying Blood Pressure Position [Right Arm] Pulse Oximetry 95 94 98 Oxygen Delivery Method Room Air Room Air Room Air 12/05/18 01:05 12/05/18 01:23 12/05/18 01:43 Temperature 37 C Temperature Source Oral Sepsis Recent Fever Within 48 Hours Sepsis New/Unexplained Change in Mental Status Sepsis Action Taken by Nursing Pulse Rate 92 H Pulse Rate [Left Finger] 108 H Pulse Rhythm [Left Finger] Pulse Strength [Left Finger] Respiratory Rate 22 16 Respiratory Effort / Characteristics Non-Labored Spontaneous Non-Labored Spontaneous Respiratory Depth Normal Normal Respiratory Pattern Regular Regular Blood Pressure Blood Pressure [Left Arm] 128/66 Blood Pressure [Right Arm] Blood Pressure Mean Blood Pressure Mean [Left Arm] 86 Blood Pressure Mean [Right Arm] Blood Pressure Position [Left Arm] Blood Pressure Position [Right Arm] Pulse Oximetry 97 97 Oxygen Delivery Method Room Air Room Air 12/05/18 03:17 12/05/18 03:30 Temperature 36.5 C Temperature Source Oral Sepsis Recent Fever Within 48 Hours Sepsis New/Unexplained Change in Mental Status Sepsis Action Taken by Nursing Pulse Rate Pulse Rate [Left Finger] 96 H 99 H Pulse Rhythm [Left Finger] Pulse Strength [Left Finger] Respiratory Rate 18 17 Respiratory Effort / Characteristics Non-Labored Spontaneous Respiratory Depth Respiratory Pattern Blood Pressure Blood Pressure [Left Arm] Blood Pressure [Right Arm] 115/78 Blood Pressure Mean Blood Pressure Mean [Left Arm] Blood Pressure Mean [Right Arm] 90 Blood Pressure Position [Left Arm] Blood Pressure Position [Right Arm] Lying Pulse Oximetry 98 99 Oxygen Delivery Method CPAP CPAP GENERAL: alert, uncomfortable appearing, mild distress EYE EXAM: normal conjunctiva, PERRL and EOM's grossly intact OROPHARYNX: no exudate, no erythema, lips, buccal mucosa, and tongue normal and mucous membranes are moist NECK: supple, no nuchal rigidity, no adenopathy, non-tender LUNGS: Clear to auscultation. Normal chest wall mechanics, no w/r/r HEART: no murmurs, S1 normal and S2 normal ABDOMEN: abdomen soft, non-tender, normo-active bowel sounds, no masses, no rebound or guarding. BACK: Back is symmetrical on inspection and there is no deformity, no midline tenderness, no CVA tenderness. SKIN: no rashes and no bruising UPPER EXTREMITIES: upper extremities are grossly normal. FROM, nml pulses b/l. LOWER EXTREMITIES: No pitting edema. FROM, nml pulses b/l. NEURO EXAM: Normal sensorium, awake, alert, nml strength b/l UE and LE, nml sensory exam b/l UE and LE, oriented, no ataxia, no facial droop, nml speech. Course 2118: Past medical records reviewed. The patient was evaluated in room B10, and a complete history and physical examination were performed. 2301: Updated patient on lab and radiology results. Discussed plan for admission for cardiac workup. Patient is agreeable to admission. 2308: Discussed patient case with Dr. Livingston, who accepts patient for admission. Administered Medications Albuterol (Duoneb) 3 ml NEB Q4R KARLA Stop: 01/04/19 03:59 Last Admin: 12/05/18 03:30 Dose: 3 ml Insulin Glargine (Lantus Solostar Pen) 10 units SC BID KARLA Stop: 01/04/19 01:44 Last Admin: 12/05/18 01:48 Dose: 10 units Morphine Sulfate (Morphine Sulfate) 2 mg IV Q2H PRN PRN Reason: Pain Stop: 12/19/18 01:03 Last Admin: 12/05/18 01:48 Dose: 2 mg Discontinued Medications Fentanyl Citrate (Fentanyl Citrate) 100 mcg IV NOW STA Stop: 12/04/18 21:29 Last Admin: 12/04/18 21:54 Dose: 100 mcg Fentanyl Citrate (Fentanyl Citrate) 100 mcg IV NOW STA Stop: 12/04/18 23:06 Last Admin: 12/05/18 00:05 Dose: 100 mcg Ioversol (Optiray 320 125ml) 116 ml IV ONCE PRN PRN Reason: Interaction Checking Stop: 12/08/18 22:18 Last Admin: 12/04/18 22:20 Dose: 116 ml Nitroglycerin (Nitro-Bid 2%) 0.5 inch EXT NOW ONE Stop: 12/04/18 22:07 Last Admin: 12/04/18 22:46 Dose: 0.5 inch Medical Decision Making Differential Diagnosis Differential diagnosis: Etiologies such as cardiac ischemia, aortic dissection, pulmonary embolism, pneumonia, pneumothorax, musculoskeletal, infections, pericarditis, myocarditis , esophageal rupture, gastrointestinal, as well as others were entertained. Medical Records Attestation: I reviewed the patient's medical records. Home Medications Current Medication List: was personally reviewed by me Laboratory Data Attestation: I reviewed the patient's lab results. Result diagrams: 12/04/18 21:38 12/04/18 21:38 Lab Results 12/04/18 12/04/18 12/04/18 Range/Units 21:38 21:38 21:38 WBC 9.06 (4.8-10.8) K/uL RBC 4.22 (4.2-5.4) M/uL Hgb 12.8 (12.0-16.0) g/dL POC Hgb (12.0-16.0) g/dl Hct 39.8 (37-47) % POC Hct (37-47) % MCV 94.3 (80-100) fL MCH 30.3 (25-34) pg MCHC 32.2 (32-36) g/dL RDW Std Deviation 48.9 H (36.4-46.3) fL RDW Coeff of Majo 14.3 (11.5-14.5) % Plt Count 234 (130-400) K/uL MPV 10.9 H (7.4-10.4) fL Neutrophils % (Manual) 28.9 % Lymphocytes % (Manual) 64.0 % Monocytes % (Manual) 5.3 % Eosinophils % (Manual) 1.8 % Neutrophils # (Manual) 2.62 (1.4-6.5) K/uL Total Absolute Neuts 2.62 (1.4-6.5) K/uL Lymphocytes # (Manual) 5.80 H (1.2-3.4) K/uL Total Abs Lymphocytes 5.80 H (1.2-3.4) K/uL Monocytes # (Manual) 0.48 (0.11-0.59) K/uL Eosinophils # (Manual) 0.16 (0-0.5) K/uL RBC Morphology Unremarkable PT 10.1 (9.0-12.0) Seconds INR 1.0 (0.9-1.1) POC Sodium (135-144) mEq/L Sodium 142 (136-145) mmol/L POC Potassium (3.3-5.0) mEq/L Potassium 3.7 (3.5-5.1) mmol/L POC Chloride (101-112) mEq/L Chloride 108 H (98-107) mmol/L Carbon Dioxide 24 (21-32) mmol/L POC Total CO2 (24-31) mEq/l Anion Gap 10.0 (3-11) POC Anion Gap (16-25) mmol/L POC BUN (7-18) mg/dl BUN 16 (7-18) mg/dl Creatinine 0.89 (0.6-1.2) mg/dl POC Creatinine (0.6-1.3) mg/dl Est Cr Clr Drug Dosing 92.2 ml/min Est GFR ( Amer) 85.2 Est GFR (Non-Af Amer) 73.5 BUN/Creatinine Ratio 18.1 (10-20) Glucose 143 H (70-99) mg/dl POC Glucose (70-99) POC Glucose (other) (70-99) mg/dl Calcium 9.0 (8.5-10.1) mg/dl POC Ioniz Calcium Wilfredo (1.12-1.32) mmol/l Magnesium 2.0 (1.8-2.4) mg/dl Total Bilirubin 0.2 (0.2-1) mg/dl AST 15 (15-37) U/L ALT 25 (12-78) U/L Alkaline Phosphatase 105 (45-117) U/L POC Troponin I (0-0.045) ng/ml Troponin I < 0.015 (0-0.045) ng/ml NT-Pro-B Natriuret Pep 86 (0-900) pg/ml Total Protein 7.3 (6.4-8.2) gm/dl Albumin 3.2 L (3.4-5.0) gm/dl Globulin 4.1 H (2.5-4.0) gm/dl Albumin/Globulin Ratio 0.8 L (0.9-2) Lipase 310 (73-393) U/L 12/04/18 12/04/18 12/05/18 Range/Units 21:44 21:46 01:46 WBC (4.8-10.8) K/uL RBC (4.2-5.4) M/uL Hgb (12.0-16.0) g/dL POC Hgb 13.3 (12.0-16.0) g/dl Hct (37-47) % POC Hct 39 (37-47) % MCV (80-100) fL MCH (25-34) pg MCHC (32-36) g/dL RDW Std Deviation (36.4-46.3) fL RDW Coeff of Majo (11.5-14.5) % Plt Count (130-400) K/uL MPV (7.4-10.4) fL Neutrophils % (Manual) % Lymphocytes % (Manual) % Monocytes % (Manual) % Eosinophils % (Manual) % Neutrophils # (Manual) (1.4-6.5) K/uL Total Absolute Neuts (1.4-6.5) K/uL Lymphocytes # (Manual) (1.2-3.4) K/uL Total Abs Lymphocytes (1.2-3.4) K/uL Monocytes # (Manual) (0.11-0.59) K/uL Eosinophils # (Manual) (0-0.5) K/uL RBC Morphology PT (9.0-12.0) Seconds INR (0.9-1.1) POC Sodium 144 (135-144) mEq/L Sodium (136-145) mmol/L POC Potassium 3.7 (3.3-5.0) mEq/L Potassium (3.5-5.1) mmol/L POC Chloride 106 (101-112) mEq/L Chloride (98-107) mmol/L Carbon Dioxide (21-32) mmol/L POC Total CO2 26 (24-31) mEq/l Anion Gap (3-11) POC Anion Gap 17.0 (16-25) mmol/L POC BUN 16 (7-18) mg/dl BUN (7-18) mg/dl Creatinine (0.6-1.2) mg/dl POC Creatinine 0.9 (0.6-1.3) mg/dl Est Cr Clr Drug Dosing ml/min Est GFR ( Amer) Est GFR (Non-Af Amer) BUN/Creatinine Ratio (10-20) Glucose (70-99) mg/dl POC Glucose 167 H (70-99) POC Glucose (other) 140 H (70-99) mg/dl Calcium (8.5-10.1) mg/dl POC Ioniz Calcium Wilfredo 1.20 (1.12-1.32) mmol/l Magnesium (1.8-2.4) mg/dl Total Bilirubin (0.2-1) mg/dl AST (15-37) U/L ALT (12-78) U/L Alkaline Phosphatase (45-117) U/L POC Troponin I < 0.03 (0-0.045) ng/ml Troponin I (0-0.045) ng/ml NT-Pro-B Natriuret Pep (0-900) pg/ml Total Protein (6.4-8.2) gm/dl Albumin (3.4-5.0) gm/dl Globulin (2.5-4.0) gm/dl Albumin/Globulin Ratio (0.9-2) Lipase (73-393) U/L Imaging Data Radiologist's Impression: Study: CT angiogram abdomen and pelvis HISTORY: Pain. Prior studies 09/11/2015 FINDINGS: Mild atherosclerotic change of the abdominal and pelvic arterial vasculature. No evidence for aneurysm or dissection. Overall configuration of liver spleen and pancreas are unremarkable. Nonobstructive bowel pattern. Bladder is midline. No acute bony abnormality. Moderate degenerative change of the low thoracic as well as lumbar spine. IMPRESSION: 1. Mild scattered abdominal and pelvic atherosclerotic change. 2. No evidence for aneurysm or dissection. 3. Moderate degenerative change of the thoracic and lumbar spine Electronically signed by: Tl Grullon M.D. 12/04/2018 10:[address] angio chest dissec wo/w con CT DOSE: HISTORY: Pain cp into back TECHNIQUE: Multiaxial CT images of the chest, abdomen, and pelvis were performed both before and after the intravenous administration of contrast to evaluate the aorta. Maximal intensity projection images were also obtained. A dose lowering technique was utilized adhering to the principles of ALARA. COMPARISON STUDY: 03/02/2018 FINDINGS: Lungs are clear. The thoracic aorta is normal in course and caliber. No evidence for aneurysm or dissection. No significant mediastinal or hilar adenopathy. Moderate degenerative changes thoracic spine. No evidence for compression deformity. IMPRESSION: 1. No evidence for aortic dissection. 2. The lungs are clear. 3. Moderate degenerative changes thoracic spine. The above report was generated using voice recognition software. It may contain grammatical, syntax or spelling errors. Electronically signed by: Tl Grullon M.D. 12/04/2018 10:36 PM ECG Data Attestation: I personally reviewed and interpreted this ECG as follows: Indication: chest pain Rate (beats per minute): 100 Rhythm: normal sinus Findings: + other (normal axis, normal intervals); no acute ischemic change and no ectopy Blood Pressure Blood Pressure Findings: Normal blood pressure MDM Narrative Pt here with concerning story and initiall ill appearing. VS stable. Pt with multiple risk factors for ACS and hx of CAD. Given description of pain and accompanying symptoms, concern also initially for dissection and PE. Pt does take asa and plavix daily given hx of CAD. No evidence of acute vascular pathology or PE, no evidence of occult infection. Pt given IV fentanyl. Pt had already had nitro at home and ASA by ems. Given risk and concerning story, despite initial negative troponin, case discussed with hospitalist for additional cardiology evaluation and monitoring. Impression & Plan Chest pain, Lightheadedness, Tobacco abuse, Hyperglycemia Discharge Plan Visit Data *Final* Discharge Date/Time: 12/05/18 00:52 Chief Complaint: Chest Pain Stated Complaint: CHEST PAIN ED Provider: Juana Benavidez Discharge Problem: Chest pain, Lightheadedness, Tobacco abuse, Hyperglycemia Patient Disposition: Admitted As Inpatient Condition: Fair Discharge Instructions Interventions: ED Discharge Assessment Last Done: 12/05/18 00:52 The scribe's documentation has been prepared under my direction and personally reviewed by me in its entirety. I confirm that the note above accurately reflects all work, treatment, procedures, and medical decision making performed by me.
[2018-12-05] MEDS ORDERED: INFLUENZA VIRUS QUAD VACCINE 0.5 ML SYR IM ONE (05:30)
[2018-12-05] MEDS ORDERED: INFLUENZA ADMINISTRATION CHARGE ONE (05:30)
[2018-12-05] MEDS ORDERED: PNEUMOCOCCAL ADMINISTRATION CHARGE ONE (05:30)
[2018-12-05] MEDS ORDERED: PNEUMOCOCCAL POLYSACCHARIDES 25 MCG/0.5 ML VIAL/SYR IM ONE (05:30)
[2018-12-05 06:37] LABS: Hemoglobin 12.8 g/dL (12.0-16.0); Mean Corpuscular Volume 94.3 fL (80-100); Mean Platelet Volume 10.7 fL (7.4-10.4); Platelet Count 224 K/uL (130-400); RDW Coefficient of Variation 14.4 % (11.5-14.5); RDW Standard Deviation 49.4 fL (36.4-46.3); Red Blood Count 4.24 M/uL (4.2-5.4); White Blood Count 8.66 K/uL (4.8-10.8)
[2018-12-05 07:09] LABS: Blood Urea Nitrogen 16 mg/dl (7-18); Calcium 8.5 mg/dl (8.5-10.1); Carbon Dioxide 26 mmol/L (21-32); Chloride 109 mmol/L (98-107); Creatinine Clr Calc Pharmacy 117.1 ml/min; Est GFR (African American) 113.8; Est GFR (Non-African American) 98.2; Glucose 89 mg/dl (70-99); Potassium 3.8 mmol/L (3.5-5.1); Sodium 142 mmol/L (136-145)
[2018-12-05 07:14] LABS: Troponin I < 0.015 ng/ml (0-0.045)
[2018-12-05 07:32] LABS: Basophils # (auto) 0.02 K/uL (0-0.2); Basophils % (auto) 0.2 %; Eosinophils # (auto) 0.21 K/uL (0-0.5); Eosinophils % (auto) 2.4 %; Immature Granulocytes # (auto) 0.02 K/uL (0.00-0.02); Immature Granulocytes % (auto) 0.2 %; Lymphocytes # (auto) 4.76 K/uL (1.2-3.4); Monocytes # (auto) 0.68 K/uL (0.11-0.59); Monocytes % (auto) 7.9 %; Neutrophils # (auto) 2.97 K/uL (1.4-6.5); Neutrophils % (auto) 34.3 %; Smudge Cells Present
[2018-12-05] MEDS: TIOTROPIUM BROMIDE 5 PUFF/90 MCG INH INH SCH (08:27)
[2018-12-05] MEDS: VERAPAMIL HCL 40 MG TAB PO SCH ×3 (08:27→20:24)
[2018-12-05] MEDS: DOCUSATE SODIUM 100 MG CAP PO SCH ×2 (08:28→20:25)
[2018-12-05] MEDS: PANTOprazole 40 MG TAB PO SCH (08:28)
[2018-12-05] MEDS: BuPROPion SR 150 MG TABCR PO SCH ×2 (08:28→20:27)
[2018-12-05] MEDS: LISINOPRIL 10 MG TAB PO SCH (08:28)
[2018-12-05] MEDS: CLOPIDOGREL BISULFATE 75 MG TAB PO SCH (08:28)
[2018-12-05] MEDS: POLYETHYLENE (MIRALAX) 17 GM PACK PO SCH (08:28)
[2018-12-05] MEDS: ASPIRIN 81 MG ECTAB PO SCH (08:28)
[2018-12-05] MEDS: GABAPENTIN 300 MG CAP PO SCH ×2 (08:28→20:25)
[2018-12-05] MEDS: ISOSORBIDE MONO EXTENDED REL 60 MG TABCR PO SCH (08:28)
[2018-12-05] MEDS: INSULIN ASPART 100 UNITS/ML 3 ML PEN SC SCH ×4 (08:30→21:45)
[2018-12-05] MEDS: DULERA~ORDER AWAITING ACTION SCH ×2 (08:37→15:44)
[2018-12-05] MEDS ORDERED: ENOXAPARIN INJ 40 MG/0.4 ML SYR SQ SCH (09:00)
[2018-12-05] MEDS: NITROGLYCERIN SL 0.4 MG/TAB TAB SL PRN ×3 (09:52→10:27)
--- NOTE | 2018-12-05 16:43 | Family Medicine Progress Note ---
Date of Service December 05, 2018 Assessment & Plan (1) Chest pain: 53-year-old female with a past medical history of CAD status post 2 stents in 2011, COPD presents with chest pain. Patient is being evaluated for rule out of acute coronary syndrome. Chest painACS rule out Patient has a history of CAD status post 2 stents in 2011, cardiac catheterization in March 2015negative for obstructive lesions, dobutamine stress test was negative in 2016 EKG was negative for acute changes and troponins were negative x3 CT was negative for dissection Patient is going to be evaluated for a dobutamine stress test tomorrow morning , n.p.o. overnight CAD Continue aspirin, atorvastatin, Plavix Diabetes A1c was 8.2 Continue Lantus 10 units twice daily Hypertension Continue lisinopril, verapamil COPD Continue Spiriva, Singulair Chronic pain Continue gabapentin Depression Continue Wellbutrin Stephanie.p.o. overnight DVT prophylaxisambulation, low risk (2) CAD (coronary artery disease): (3) Asthma: Supervising Physician Co-Signing Physician Notes Resident Physician Supervision Note: I independently interviewed and examined the patient and verified the duran history and physical, reviewed labs and image studies, discussed the case with the resident Dr. Varghese and agree with the findings and care plan. Subjective 53-year-old female with a past medical history of CAD status post 2 stents in 2011, COPD presents with chest pain. Patient is being evaluated for rule out of acute coronary syndrome. Today when I came into the room, the patient describes feeling periods of chest pain this morning. She describes the chest pain as similar to last night which was left-sided, radiating to her neck and back. She stated that the pain was like a wave coming up and was associated with nausea and vomiting. She did receive nitro this morning which relieved the pain. Review of Systems Constitutional; patient denies fevers, chills, night sweats Cardio; chest pain as described above, no palpitations, no shortness of breath Pulmonary; no shortness of breath, no respiratory distress, no cough GI; nausea and vomiting as described above, no abdominal pain Physical Exam 2 Vital Signs (Past 24 Hours): Last Vital Signs Temp 36.8 C 12/05/18 15:07 Pulse 66 12/05/18 15:48 Resp 16 12/05/18 15:48 BP 98/61 L 12/05/18 16:28 Pulse Ox 98 12/05/18 15:48 Physical Exam: General; no acute distress, normocephalic/atraumatic HEENT; neck is supple, nontender, no LAD Cardio; regular rate and rhythm, normal S1-S2, no murmurs/rubs/gallops Pulmonary; diffused wheezing throughout, no respiratory distress, normal respiratory effort GI; nontender, nondistended, normal bowel sounds MSK; no lesions, no deformities, no edema of bilateral lower extremities Results & Data Laboratory Results Laboratory Last Values WBC 8.66 K/uL (4.8-10.8) 12/05/18 06:25 RBC 4.24 M/uL (4.2-5.4) 12/05/18 06:25 Hgb 12.8 g/dL (12.0-16.0) 12/05/18 06:25 POC Hgb 13.3 g/dl (12.0-16.0) 12/04/18 21:46 Hct 40.0 % (37-47) 12/05/18 06:25 POC Hct 39 % (37-47) 12/04/18 21:46 MCV 94.3 fL (80-100) 12/05/18 06:25 MCH 30.2 pg (25-34) 12/05/18 06:25 MCHC 32.0 g/dL (32-36) 12/05/18 06:25 RDW Std Deviation 49.4 fL (36.4-46.3) H 12/05/18 06:25 RDW Coeff of Majo 14.4 % (11.5-14.5) 12/05/18 06:25 Plt Count 224 K/uL (130-400) 12/05/18 06:25 MPV 10.7 fL (7.4-10.4) H 12/05/18 06:25 Immature Gran % (Auto) 0.2 % 12/05/18 06:25 Neut % (Auto) 34.3 % 12/05/18 06:25 Lymph % (Auto) 55.0 % 12/05/18 06:25 [place] % (Auto) 7.9 % 12/05/18 06:25 Eos % (Auto) 2.4 % 12/05/18 06:25 Baso % (Auto) 0.2 % 12/05/18 06:25 Immature Gran # (Auto) 0.02 K/uL (0.00-0.02) 12/05/18 06:25 Neut # (Auto) 2.97 K/uL (1.4-6.5) 12/05/18 06:25 Lymph # (Auto) 4.76 K/uL (1.2-3.4) H 12/05/18 06:25 [place] # (Auto) 0.68 K/uL (0.11-0.59) H 12/05/18 06:25 Eos # (Auto) 0.21 K/uL (0-0.5) 12/05/18 06:25 Baso # (Auto) 0.02 K/uL (0-0.2) 12/05/18 06:25 Neutrophils % (Manual) 28.9 % 12/04/18 21:38 Lymphocytes % (Manual) 64.0 % 12/04/18 21:38 Monocytes % (Manual) 5.3 % 12/04/18 21:38 Eosinophils % (Manual) 1.8 % 12/04/18 21:38 Neutrophils # (Manual) 2.62 K/uL (1.4-6.5) 12/04/18 21:38 Total Absolute Neuts 2.62 K/uL (1.4-6.5) 12/04/18 21:38 Lymphocytes # (Manual) 5.80 K/uL (1.2-3.4) H 12/04/18 21:38 Total Abs Lymphocytes 5.80 K/uL (1.2-3.4) H 12/04/18 21:38 Monocytes # (Manual) 0.48 K/uL (0.11-0.59) 12/04/18 21:38 Eosinophils # (Manual) 0.16 K/uL (0-0.5) 12/04/18 21:38 Smudge Cells Present 12/05/18 06:25 Blood Smear Review 12/04/18 21:38 RBC Morphology Unremarkable 12/04/18 21:38 PT 10.1 Seconds (9.0-12.0) 12/04/18 21:38 INR 1.0 (0.9-1.1) 12/04/18 21:38 POC Sodium 144 mEq/L (135-144) 12/04/18 21:46 Sodium 142 mmol/L (136-145) 12/05/18 06:25 POC Potassium 3.7 mEq/L (3.3-5.0) 12/04/18 21:46 Potassium 3.8 mmol/L (3.5-5.1) 12/05/18 06:25 POC Chloride 106 mEq/L (101-112) 12/04/18 21:46 Chloride 109 mmol/L (98-107) H 12/05/18 06:25 Carbon Dioxide 26 mmol/L (21-32) 12/05/18 06:25 POC Total CO2 26 mEq/l (24-31) 12/04/18 21:46 Anion Gap 7.0 (3-11) 12/05/18 06:25 POC Anion Gap 17.0 mmol/L (16-25) 12/04/18 21:46 POC BUN 16 mg/dl (7-18) 12/04/18 21:46 BUN 16 mg/dl (7-18) 12/05/18 06:25 Creatinine 0.70 mg/dl (0.6-1.2) 12/05/18 06:25 POC Creatinine 0.9 mg/dl (0.6-1.3) 12/04/18 21:46 Est Cr Clr Drug Dosing 117.1 ml/min 12/05/18 06:25 Est GFR ( Amer) 113.8 12/05/18 06:25 Est GFR (Non-Af Amer) 98.2 12/05/18 06:25 BUN/Creatinine Ratio 23.0 (10-20) H 12/05/18 06:25 Glucose 89 mg/dl (70-99) 12/05/18 06:25 POC Glucose 70 (70-99) 12/05/18 11:09 POC Glucose (other) 140 mg/dl (70-99) H 12/04/18 21:46 Calcium 8.5 mg/dl (8.5-10.1) 12/05/18 06:25 POC Ioniz Calcium Wilfredo 1.20 mmol/l (1.12-1.32) 12/04/18 21:46 Magnesium 2.0 mg/dl (1.8-2.4) 12/04/18 21:38 Total Bilirubin 0.2 mg/dl (0.2-1) 12/04/18 21:38 AST 15 U/L (15-37) 12/04/18 21:38 ALT 25 U/L (12-78) 12/04/18 21:38 Alkaline Phosphatase 105 U/L (45-117) 12/04/18 21:38 POC Troponin I < 0.03 ng/ml (0-0.045) 12/04/18 21:44 Troponin I < 0.015 ng/ml (0-0.045) 12/05/18 11:11 NT-Pro-B Natriuret Pep 86 pg/ml (0-900) 12/04/18 21:38 Total Protein 7.3 gm/dl (6.4-8.2) 12/04/18 21:38 Albumin 3.2 gm/dl (3.4-5.0) L 12/04/18 21:38 Globulin 4.1 gm/dl (2.5-4.0) H 12/04/18 21:38 Albumin/Globulin Ratio 0.8 (0.9-2) L 12/04/18 21:38 Lipase 310 U/L (73-393) 12/04/18 21:38 Resident Activity Tracking Resident Involvement: Resident Care Provided Care Provided: [facility] _ (1) CAD (coronary artery disease) Associated angina: with unstable angina Coronary Disease-Associated Artery/ Lesion type: [place] artery [place] vs. transplanted heart: [place] heart Qualified Code(s): I25.110 - Atherosclerotic heart disease of [place] coronary artery with unstable angina pectoris (2) Asthma Asthma complication type: uncomplicated Asthma persistence: persistent Asthma severity: mild Qualified Code(s): J45.30 - Mild persistent asthma, uncomplicated
[2018-12-05] MEDS ORDERED: MONTELUKAST SODIUM 10 MG TABLET PO SCH (21:00)
[2018-12-05] MEDS ORDERED: ATORVASTATIN 40 MG TAB PO SCH (21:00)
[2018-12-06] MEDS ORDERED: BISACODYL 10 MG SUPP PR STA (00:04)
[2018-12-06] MEDS: DULERA~ORDER AWAITING ACTION SCH (01:42)
[2018-12-06] MEDS: ALBUT/IPRATROP 3MG/0.5MG NEB 3 ML VIAL NEB SCH ×4 (03:42→15:09)
[2018-12-06 07:07] LABS: Basophils # (auto) 0.01 K/uL (0-0.2); Basophils % (auto) 0.1 %; Eosinophils # (auto) 0.15 K/uL (0-0.5); Eosinophils % (auto) 1.8 %; Hematocrit (blood only) 38.6 % (37-47); Hemoglobin 12.3 g/dL (12.0-16.0); Immature Granulocytes # (auto) 0.02 K/uL (0.00-0.02); Immature Granulocytes % (auto) 0.2 %; Lymphocytes # (auto) 3.97 K/uL (1.2-3.4); Lymphocytes % (auto) 47.3 %; Mean Corpuscular Hgb Conc 31.9 g/dL (32-36); Mean Corpuscular Volume 94.4 fL (80-100); Monocytes # (auto) 0.59 K/uL (0.11-0.59); Neutrophils # (auto) 3.66 K/uL (1.4-6.5); Neutrophils % (auto) 43.6 %; Platelet Count 226 K/uL (130-400); RDW Coefficient of Variation 14.1 % (11.5-14.5); RDW Standard Deviation 48.9 fL (36.4-46.3); Red Blood Count 4.09 M/uL (4.2-5.4)
[2018-12-06 07:40] LABS: Calcium 8.5 mg/dl (8.5-10.1); Creatinine Clr Calc Pharmacy 96.2 ml/min; Est GFR (Non-African American) 77.7; Potassium 3.9 mmol/L (3.5-5.1)
[2018-12-06] MEDS: INSULIN ASPART 100 UNITS/ML 3 ML PEN SC SCH ×2 (08:58→13:16)
[2018-12-06] MEDS ORDERED: METOPROLOL TARTRATE 1 MG/ML VIAL IV ONE ×2 (09:31→09:32)
[2018-12-06] MEDS ORDERED: DOBUTamine HCL 12.5 MG/ML 20 ML VIAL IV ONE (09:31)
[2018-12-06] MEDS ORDERED: ATROPINE SULFATE 0.1 MG/ML 10ML SYR IV ONE (09:32)
[2018-12-06] MEDS: LISINOPRIL 10 MG TAB PO SCH (11:03)
[2018-12-06] MEDS: DOCUSATE SODIUM 100 MG CAP PO SCH (11:03)
[2018-12-06] MEDS: GABAPENTIN 300 MG CAP PO SCH (11:03)
[2018-12-06] MEDS: CLOPIDOGREL BISULFATE 75 MG TAB PO SCH (11:04)
[2018-12-06] MEDS: PANTOprazole 40 MG TAB PO SCH (11:04)
[2018-12-06] MEDS: BuPROPion SR 150 MG TABCR PO SCH (11:04)
[2018-12-06] MEDS: ISOSORBIDE MONO EXTENDED REL 60 MG TABCR PO SCH (11:04)
[2018-12-06] MEDS: VERAPAMIL HCL 40 MG TAB PO SCH ×2 (11:05→13:18)
[2018-12-06] MEDS: POLYETHYLENE (MIRALAX) 17 GM PACK PO SCH (11:05)
[2018-12-06] MEDS: TIOTROPIUM BROMIDE 5 PUFF/90 MCG INH INH SCH (11:06)
[2018-12-06] MEDS: ASPIRIN 81 MG ECTAB PO SCH (11:06)
[2018-12-06] MEDS: INSULIN GLARGINE SOLOSTAR 100 UNITS/ML 3 ML PEN SC SCH (11:13)
--- NOTE | 2018-12-06 14:43 | Discharge Summary ---
Date of Service December 06, 2018 Admission HPI Per Admitting Provider 53yo female with history of CAD s/p stent x 2 in 2011, HTN, HLP, DM, TIA, GERD Anxiety and Asthma presenting with acute onset left sided CP. Patient was washing dishes this evening when she had acute onset of CP on the left side of her chest. Pain radiated to her arm, neck and back. 10/10 in severity, sharp in nature. She became dizzy and diaphoretic and almost fell. Her gave her a Nitro which improved pain to 7/10. Then the patient laid down and the CP returned approximately 30 minutes later with nausea and 3 episodes of non-bloody /non-bilious vomiting. Nitro again with no relief. Patient has been seen in the past for non-cardiac chest pain, most recently 2016. She had a cardiac catheterization performed 04/03/15 which was negative, stents patent. She had a dobutamine stress echocardiogram on 11/21/16 which was negative for inducible ischemia as well. Patient states that she has occasional substernal chest pressure after walking up a hill by her home which is relieved with rest and Nitro. That pain is not like her CP tonight These pains have not become more frequent or severe and typically do not occur at rest. ER Course: Fentanyl 100mcg, Nitropaste, Fentanyl Principal Diagnosis Viral gastroenteritis/esophageal spasm Discharge Exam Constitutional WD/WN, vitals as above Eyes PERRL, conjunctivae normal, anicteric sclerae ENMT external ear and nose normal, oropharynx normal Neck trachea midline, no thyromegaly Respiratory normal respiratory effort and + cough Auscultation: + wheezes (Diffuse, bilateral) Cardiovascular RRR, no murmur, no edema Gastrointestinal (Abdomen) normal bowel sounds, soft, nontender, no hepatosplenomegaly Musculoskeletal no cyanosis or clubbing, extremities motor strength 5/5 Skin no rashes, warm and dry Discharge Data Allergies Allergy/AdvReac Type Severity Reaction Status Date / Time No Known Allergies Allergy Verified 12/04/18 23:14 Consultations 12/04/18 23:12 ED Decision to Admit Stat Ordered Studies 12/04/18 21:58 CT angio abd pelvis wo/w con Stat CT angio chest dissec wo/w con Stat Dobutamine stress test interpretation summary Normal dobutamine echocardiogram without evidence of inducible ischemia There is borderline concentric left ventricular hypertrophy Left ventricular systolic function is normal Grade 1 diastolic dysfunction, abnormal relaxation pattern There is mild mitral regurgitation Hospital Course (1) Chest pain: 53-year-old female with a past medical history of CAD status post 2 stents in 2011 & COPD presents with chest pain. Patient was evaluated for rule out of acute coronary syndrome. Chest painACS rule out Dobutamine stress test negative for ischemic changes EKG was negative for acute changes, troponins were negative x3 CT was negative for dissection - Chest pain likely GI origin. Nausea/vomiting Patient has had multiple episodes of nausea and vomiting. Likely due to viral gastroenteritis. She may be experiencing esophageal spasm, contributing to pain Recommended continue ranitidine/Protonix Continue chronic disease managementno changes made CAD Continue aspirin, atorvastatin, Plavix Diabetes A1c was 8.2 Hypertension Continue lisinopril, verapamil COPD Continue Spiriva, Singulair Chronic pain Continue gabapentin Depression Continue Wellbutrin (2) CAD (coronary artery disease): (3) Asthma: Total Time Total Time Spent Total Time Spent (In Minutes): Greater than 30 minutes Total Time Includes: Examination of the Patient, Discharge Planning, Medication Reconciliation and Communication With Other Providers Discharge Plan Discharge Items Patient Disposition: Home - Self-Care Reason For Visit: CHEST PAIN Discharge Diagnosis: Viral gastroenteritis/GERD Condition: Fair Discharge Goals: Improve disease control, Improve function and Learn about illness Activity: Per 'Additional Instructions' section Non-emergency contact: Primary Care Provider and [facility] Call non-emergency contact if: you have any medication questions Follow-up/Referrals: Dwayne Guy MD [Tin [facility]acker] - 12/13/18 3:00 pm (Please, follow up at Dr. Guy's office with his phys assistant, Lorraine Mccauley PA-C, on December 13 at 3:00 pm. *This office is located in [address] of [facility] - [facility] building next to this hospital. If you need to change this appointment, call the office at [phone].) Nita Torres MD [Primary Care Provider] - 12/10/18 3:00 pm (Please, follow up with Dr. Torres on MondayDecember 10 at 3:00 pm. *If you need to change this appointment, call the office at [phone].) Diet: Heart Healthy Add Provider Instructions: Ms. Islas, you were admitted to the hospital with chest pain. You are also having episodes of vomiting. We did testing to evaluate for cardiovascular disease. Considering your past medical history of chest pain and stent placement, we decided to do extensive testing. All the testing that we did came back negative. We also did a dobutamine stress test, a test that that allows us to take an image of your heart while it is working hard. This test did not show any signs of decreased blood flow to your heart, making your chest pain unlikely to new heart disease. There is a possibility that your chest pain is related to the stomach symptoms that you are having. As we discussed, your nausea and vomiting may be due to a viral illness. Considering your history of gastric reflux, this in connection with the virus may be causing a esophageal spasm. The esophagus is a tube that runs from your mouth to your stomach. When this tube contracts, "spasms", he can give a pain very similar to chest pain related to cardiovascular disease. With all of this, we would like you to still have very close follow-up with your primary care doctor. We believe that the symptoms will resolve as the virus resolves. You are already on 2 medications for gastric reflux pantoprazole and ranitidine. Continue to take these medications. In addition, be aware of dehydration drink water throughout the day. Prescriptions: Continue albuterol sulfate 90 mcg/actuation Hfa Aerosol Inhaler 2 puff INHALATION Q4 PRN (Reason: Shortness Of Breath Or Wheezing) Qty: 0 RF : 0 isosorbide mononitrate 60 mg Tablet Extended Release 24 Hr 60 mg PO QAM Qty: 0 RF: 0 nitroglycerin [Nitrostat] 0.4 mg Tablet, Sublingual 0.4 mg Sublingual DIRECTED PRN (Reason: Chest Pain) Qty: 0 RF: 0 ranitidine HCl 150 mg Tablet 150 mg PO HS Qty: 0 RF: 0 ipratropium-albuterol 0.5 mg-3 mg(2.5 mg base)/3 mL Solution For Nebulization 3 ml INHALATION Q6 PRN (Reason: Shortness Of Breath Or Wheezing) Qty: 0 RF: 0 aspirin [Aspirin Low Dose] 81 mg Tablet,Delayed Release (Dr/Ec) 81 mg PO QAM Qty: 0 RF: 0 lisinopril 10 mg Tablet 10 mg PO QAM Qty: 0 RF: 0 atorvastatin 80 mg Tablet 80 mg PO HS Qty: 0 RF: 0 clopidogrel [Plavix] 75 mg Tablet 75 mg PO QAM Qty: 0 RF: 0 pantoprazole 40 mg Tablet,Delayed Release (Dr/Ec) 40 mg PO QAM Qty: 0 RF: 0 diclofenac sodium [Voltaren] 1 % Gel 2 g TOPICAL QID PRN (Reason: Pain) Qty: 0 RF: 0 bupropion HCl 150 mg Tablet Sustained-Release 12 Hr 150 mg PO BID RF: 0 polyethylene glycol 3350 [Miralax] 17 gram Powder In Packet 17 g PO DAILY RF: 0 prochlorperazine maleate 10 mg Tablet 10 mg PO Q6 PRN (Reason: Nausea) RF: 0 hydrocortisone-pramoxine [Proctofoam HC] 1-1 % Foam 1 applic AR DIRECTED PRN (Reason: Pain) RF: 0 diclofenac potassium 50 mg Tablet 50 mg PO Q8 PRN (Reason: Pain) RF: 0 docusate sodium [Colace] 100 mg Capsule 100 mg PO BID RF: 0 gabapentin 300 mg Capsule 300 mg PO BID RF: 0 montelukast [Singulair] 10 mg Tablet 10 mg PO HS RF: 0 ergocalciferol (vitamin D2) [Vitamin D2] 50,000 unit Capsule 50,000 unit PO WK RF: 0 verapamil 80 mg Tablet 80 mg PO TID RF: 0 metformin 750 mg Tablet Extended Release 24 Hr 1,500 mg PO QDD RF: 0 mometasone-formoterol [Dulera] 200-5 mcg/actuation Hfa Aerosol Inhaler 2 puff INHALATION BID RF: 0 tiotropium bromide [Spiriva Respimat] 1.25 mcg/actuation Mist 2 puff INHALATION DAILY RF: 0 insulin NPH isoph U-100 human [Novolin N NPH U-100 Insulin] 100 unit/mL Suspension 10 - 30 unit SUBCUT BIDM RF: 0 Stand-Alone Forms: [facility] Discharge Orders: Discharge Order (Routine); Ordered 12/06/18 Ordered By: Izaiah Varghese Admission Data Admit Date/Time: 12/05/18 00:30 Attending Provider: Kristen Castillo Admit Provider: Eve Livnigston Primary Care Provider: Nita Torres Other Providers: Eve Livingston Service: Telemetry Other Interventions: Discharge Summary Assessment (RN) Last Done: 12/06/18 15:08 DC Date/Time DO NOT enter until pt leaves facility: 12/06/18 17:21 Supervising Physician Co-Signing Physician Notes Resident Physician Supervision Note: I independently interviewed and examined the patient and verified the duran history and physical, reviewed labs and image studies, discussed the case with the resident Dr. Varghese and agree with the findings and care plan. Time spent in discharge 35 min Resident Activity Tracking Resident Involvement: Resident Care Provided Care Provided: Adult Hospital Medicine
== END 2018-12-06 17:21 | disposition home or self-care (01) ==
LOC: 2S 21:14 → ED 21:14 → SUATTDRO 12-05 00:30 → 2S 12-05 00:52

== ENCOUNTER 2019-02-07 12:21 | Inpatient (IN) ==
[2019-02-07] MEDS ORDERED: ALBUT/IPRATROP 3MG/0.5MG NEB 3 ML VIAL NEB ONE (12:27)
[2019-02-07] MEDS ORDERED: methylPREDNISolone 125 MG/2 ML VIAL IV STA (12:30)
[2019-02-07 12:52] LABS: Basophils # (auto) 0.03 K/uL (0-0.2); Basophils % (auto) 0.3 %; Eosinophils # (auto) 0.11 K/uL (0-0.5); Immature Granulocytes # (auto) 0.03 K/uL (0.00-0.02); Immature Granulocytes % (auto) 0.3 %; Lymphocytes # (auto) 4.64 K/uL (1.2-3.4); Lymphocytes % (auto) 41.8 %; Mean Corpuscular Hgb Conc 32.5 g/dL (32-36); Mean Corpuscular Volume 95.2 fL (80-100); Mean Platelet Volume 10.4 fL (7.4-10.4); Monocytes # (auto) 0.74 K/uL (0.11-0.59); Monocytes % (auto) 6.7 %; Neutrophils # (auto) 5.55 K/uL (1.4-6.5); Neutrophils % (auto) 49.9 %; Platelet Count 267 K/uL (130-400); RDW Coefficient of Variation 14.8 % (11.5-14.5); RDW Standard Deviation 51.5 fL (36.4-46.3)
--- NOTE | 2019-02-07 12:55 | XRay Report ---
XR chest 1V portable CLINICAL HISTORY: Dyspnea dyspnea COMPARISON STUDY: 02/03/2019 FINDINGS: Minimal atelectasis left base. Lungs otherwise appear clear. Diaphragms are smooth. IMPRESSION: Focal atelectasis left base. Otherwise negative study. The above report was generated using voice recognition software. It may contain grammatical, syntax or spelling errors. Electronically signed by: Tl Grullon M.D. 02/07/2019 12:54 PM
[2019-02-07 13:06] LABS: Partial Thromboplastin Ratio 0.8; Partial Thromboplastin Time 22.2 Seconds (21.0-31.0); Prothrombin Time 10.2 Seconds (9.0-12.0)
[2019-02-07 13:09] LABS: Alanine Aminotransferase 26 U/L (12-78); Albumin Level 3.4 gm/dl (3.4-5.0); Aspartate Aminotransferase 15 U/L (15-37); BUN Creatinine Ratio 12.2 (10-20); Blood Urea Nitrogen 10 mg/dl (7-18); Calcium 9.2 mg/dl (8.5-10.1); Carbon Dioxide 27 mmol/L (21-32); Chloride 108 mmol/L (98-107); Creatinine Clr Calc Pharmacy 96.5 ml/min; Est GFR (Non-African American) 77.7; Glucose 112 mg/dl (70-99); Magnesium 2.1 mg/dl (1.8-2.4); Potassium 3.4 mmol/L (3.5-5.1); Sodium 139 mmol/L (136-145)
[2019-02-07 13:14] LABS: Albumin Globulin Ratio 0.9 (0.9-2); Alkaline Phosphatase 112 U/L (45-117); Bilirubin,Total 0.3 mg/dl (0.2-1); Total Protein 7.4 gm/dl (6.4-8.2); Troponin I < 0.015 ng/ml (0-0.045)
[2019-02-07 13:44] LABS: Influenza A virus by PCR Neg for Influ A (Neg); Influenza B virus by PCR Neg for Influ B (Neg)
--- NOTE | 2019-02-07 14:16 | Emergency Department Note ---
Entered by Bekah Astorga acting as a scribe for History of Present Illness General Chief complaint: Shortness of Breath/Dyspnea Stated complaint: sob Source: patient History of Present Illness Onset (ago): day(s) 4 Location: chest Severity: severe Pain Consistency: + other (episode) Maximum Pain Intensity: 3 Quality: + other (shortness of breath) Relieved By: not by other (breathing treatment) Associated symptoms: + chest pain (secondary to cough) and + other (wheezing); no fever/chills (fever) The patient is a 53 year old female that is presenting to the Emergency Room with complaints of an episode of severe shortness of breath that started four days ago and then worsened this morning during a physical therapy appointment. That patient reports she cannot breath and has an associated productive cough and wheezing. She states that she has had three breathing treatments today. She notes that she had surgery on her left knee 10 days ago and was in the Emergency Room 9 days ago due to a fall. She reports that she received a steroid shot and similar breathing treatment at that time. She denies taking any steroids currently. She notes that her left leg is swollen from the surgery. She reports that she had a similar episode 4 months ago. She notes she has a history of asthma and that she takes Plavix. She states she has chest pain secondary to the coughing. She denies any fever. Home Medications Home Medications Medication Instructions Recorded Confirmed Type albuterol sulfate 2 puff INHALATION Q4 PRN #0 07/18/16 02/07/19 History aspirin [Aspirin Low Dose] 81 mg PO QAM #0 12/14/16 02/07/19 History isosorbide mononitrate 60 mg PO QAM #0 12/14/16 02/07/19 History nitroglycerin [Nitrostat] 0.4 mg SUBLINGUAL DIRECTED PRN 12/14/16 02/07/19 History #0 btl ranitidine HCl 150 mg PO HS #0 12/14/16 02/07/19 History lisinopril 10 mg PO QAM #0 05/04/17 02/07/19 History atorvastatin 80 mg PO HS #0 05/25/18 02/07/19 History clopidogrel [Plavix] 75 mg PO QAM #0 05/25/18 02/07/19 History diclofenac sodium [Voltaren] 2 g TOPICAL QID PRN #0 05/25/18 02/07/19 History pantoprazole 40 mg PO QAM #0 05/25/18 02/07/19 History Novolin N NPH U-100 Insulin 10 - 30 unit SUBCUT BIDM 06/28/18 02/07/19 History Dulera 2 puff INHALATION BID 12/04/18 02/07/19 History Proctofoam HC 1 applic [place] DIRECTED PRN 12/04/18 02/07/19 History Spiriva Respimat 2 puff INHALATION DAILY 12/04/18 02/07/19 History bupropion HCl 150 mg PO BID 12/04/18 02/07/19 History diclofenac potassium 50 mg PO Q8 PRN 12/04/18 02/07/19 History docusate sodium [Colace] 100 mg PO BID 12/04/18 02/07/19 History ergocalciferol (vitamin D2) 50,000 unit PO WK 12/04/18 02/07/19 History [Vitamin D2] gabapentin 300 mg PO BID 12/04/18 02/07/19 History montelukast [Singulair] 10 mg PO HS 12/04/18 02/07/19 History prochlorperazine maleate 10 mg PO Q6 PRN 12/04/18 02/07/19 History verapamil 80 mg PO TID 12/04/18 02/07/19 History metformin 1,500 mg PO DAILY 02/03/19 02/07/19 History oxycodone 5 mg PO Q6H PRN #12 tab 02/03/19 02/07/19 Rx Allergies Allergy/AdvReac Type Severity Reaction Status Date / Time No Known Allergies Allergy Verified 02/07/19 13:34 Past Med/Surg History Medical History Asthma Chronic obstructive pulmonary disease Hypertension Hyperlipidemia Atrial tachycardia [facility] Transient ischemic attack (TIA) PLAVIX. FOLLOWS WITH PCP Migraine Anxiety Depression Post traumatic stress disorder Diabetes mellitus, type 2 IDDM History of recent steroid use FINISHED (MEDROL DOSEPAK) MAY 2018 --> ASTHMA FLARE UP GERD (gastroesophageal reflux disease) Chronic back pain Degenerative disc disease Osteoarthritis Fracture tibia/fibula LEFT WITH ORIF Facial fracture (2014) WITH RECONSTRUCTION Morbid obesity CHF (congestive heart failure) Leaky heart valve CAD (coronary artery disease) Obstructive sleep apnea on CPAP Surgical History History of cardiac cath X2 STENTS - (~2010, IN [place], [place]). NO STENTS - ([facility] @ ~2014) History of heart artery stent X2 STENTS (2010) UNSURE OF KIND. NO STENT CARDS PER PT. History of colonoscopy History of esophagogastroduodenoscopy (EGD) Status post right foot surgery History of bilateral tubal ligation Family History Mother Family history of diabetes mellitus Father Family history of diabetes mellitus Social History Preferred Language: Citizen Of [place] Communication Ability: Effective Visual Impairment: No Limitations Beliefs That Will Affect Care: None Current Living Situation: Spouse Feels Safe at Home: Yes Smoking Status: Former smoker Tobacco Type: cigarettes Cigarettes Per Day: 10 Second Hand Exposure: No Hx Alcohol Use: No Hx Substance Use: No Review of Systems See HPI for pertinent positives & negatives. and A total of 10 systems reviewed and were otherwise negative Physical Exam Vital Signs Vital Signs - 24 hr 02/07/19 12:27 02/07/19 12:43 02/07/19 12:46 Temperature Source Oral Sepsis Recent Fever Within 48 Hours No Sepsis New/Unexplained Change in Mental Status No Sepsis Action Taken by Nursing No Action Required Pulse Rate [Apical] Respiratory Rate 26 H 22 Respiratory Effort / Characteristics Labored Non-Labored Spontaneous Blood Pressure 138/91 Blood Pressure [Left Arm] Blood Pressure Mean 106 Blood Pressure Mean [Left Arm] Blood Pressure Position Sitting Pulse Oximetry 100 98 100 Oxygen Delivery Method Nebulizer Room Air Nebulizer Oxygen Flow Rate 10 10 02/07/19 13:14 02/07/19 15:13 Temperature Source Sepsis Recent Fever Within 48 Hours Sepsis New/Unexplained Change in Mental Status Sepsis Action Taken by Nursing Pulse Rate [Apical] 102 H 102 H Respiratory Rate 17 26 H Respiratory Effort / Characteristics Blood Pressure Blood Pressure [Left Arm] 155/95 H 137/101 H Blood Pressure Mean Blood Pressure Mean [Left Arm] 115 113 Blood Pressure Position Pulse Oximetry 100 100 Oxygen Delivery Method Room Air Nasal Cannula Oxygen Flow Rate 2 GENERAL: Patient is awake alert. She is somewhat anxious appearing. She appears to be having difficulty breathing. EYES: The conjunctivae are clear. The pupils are round and reactive. EARS, NOSE, MOUTH AND THROAT: The nose is without any evidence of any deformity. Mucous membranes are moist tongue is midline NECK: The neck is nontender and supple. RESPIRATORY: Diminished breath sounds were noted throughout. There is expiratory wheezing in both upper lung mohr. There was significant tachypnea with conversational dyspnea. CARDIOVASCULAR: Tachycardic rate with regular rhythm was noted. There is no definite murmur noted. GASTROINTESTINAL: The abdomen is soft. Bowel sounds are present in all quadrants. Abdomen is nontender PELVIS: The Pelvis is stable. No tenderness to palpation is noted. BACK: No midline tenderness or or step-off noted range of motion in flexion extension as well as rotation no signs of muscle spasm noted MUSCULOSKELETAL/EXTREMITIES: Knee immobilizer was noted in the left lower extremity. SKIN: Trace pedal edema was noted bilaterally. Skin was warm and dry. Pulses were symmetric in both feet. NEUROLOGIC: Patient is awake alert and oriented x3. Course 1227:The patient was evaluated in room C10. A complete history and physical examination was performed. 1330: I updated the patient on her current lab and imaging results. 1445: I reviewed the patient's case with Dr. Nickolas Ralph [facility]. He will evaluate the patient for further management. 1457: I discussed laboratory and radiographic results with the patient. She verbalized agreement of the treatment plan. The patient will be evaluated for further management and care. Administered Medications Discontinued Medications Albuterol (Duoneb) 12 ml NEB ONE ONE Stop: 02/07/19 12:28 Last Admin: 02/07/19 12:42 Dose: 12 ml Documented by: [id number] Methylprednisolone (Solumedrol) 125 mg IV NOW STA Stop: 02/07/19 12:31 Last Admin: 02/07/19 12:45 Dose: 125 mg Documented by: [id number] Oxycodone HCl (Roxicodone Immediate Rel) 5 mg PO NOW STA Stop: 02/07/19 15:10 Last Admin: 02/07/19 15:12 Dose: 5 mg Documented by: [id number] Medical Decision Making Differential Diagnosis Differential diagnosis: Etiologies such as infections, reactive airway disease, pneumonia, pneumothorax, COPD, CHF, cardiac ischemia, pulmonary embolism, musculoskeletal, gastrointestinal, as well as others were entertained. Medical Records Attestation: I reviewed the patient's medical records. Home Medications Current Medication List: was personally reviewed by me Laboratory Data Attestation: I reviewed the patient's lab results. Result diagrams: 02/07/19 12:41 02/07/19 12:41 Lab Results 02/07/19 02/07/19 02/07/19 Range/Units 12:41 12:41 12:41 WBC 11.10 H (4.8-10.8) K/uL RBC 4.20 (4.2-5.4) M/uL Hgb 13.0 (12.0-16.0) g/dL Hct 40.0 (37-47) % MCV 95.2 (80-100) fL MCH 31.0 (25-34) pg MCHC 32.5 (32-36) g/dL RDW Std Deviation 51.5 H (36.4-46.3) fL RDW Coeff of Majo 14.8 H (11.5-14.5) % Plt Count 267 (130-400) K/uL MPV 10.4 (7.4-10.4) fL Immature Gran % (Auto) 0.3 % Neut % (Auto) 49.9 % Lymph % (Auto) 41.8 % Stevens % (Auto) 6.7 % Eos % (Auto) 1.0 % Baso % (Auto) 0.3 % Immature Gran # (Auto) 0.03 H (0.00-0.02) K/uL Neut # (Auto) 5.55 (1.4-6.5) K/uL Lymph # (Auto) 4.64 H (1.2-3.4) K/uL Stevens # (Auto) 0.74 H (0.11-0.59) K/uL Eos # (Auto) 0.11 (0-0.5) K/uL Baso # (Auto) 0.03 (0-0.2) K/uL PT 10.2 (9.0-12.0) Seconds INR 1.0 (0.9-1.1) APTT 22.2 (21.0-31.0) Seconds PTT Ratio 0.8 VBG pH (7.36-7.41) VBG pCO2 (38-50) mmHg VBG pO2 mmHg VBG HCO3 mmol/L VBG O2 Saturation % VBG Base Excess mEq/L Barometric Pressure mm/Hg Sodium 139 (136-145) mmol/L Potassium 3.4 L (3.5-5.1) mmol/L Chloride 108 H (98-107) mmol/L Carbon Dioxide 27 (21-32) mmol/L Anion Gap 4.0 (3-11) BUN 10 (7-18) mg/dl Creatinine 0.85 (0.6-1.2) mg/dl Est Cr Clr Drug Dosing 96.5 ml/min Est GFR ( Amer) 90.0 Est GFR (Non-Af Amer) 77.7 BUN/Creatinine Ratio 12.2 (10-20) Glucose 112 H (70-99) mg/dl Calcium 9.2 (8.5-10.1) mg/dl Magnesium 2.1 (1.8-2.4) mg/dl Total Bilirubin 0.3 (0.2-1) mg/dl AST 15 (15-37) U/L ALT 26 (12-78) U/L Alkaline Phosphatase 112 (45-117) U/L Troponin I < 0.015 (0-0.045) ng/ml Total Protein 7.4 (6.4-8.2) gm/dl Albumin 3.4 (3.4-5.0) gm/dl Globulin 4.0 (2.5-4.0) gm/dl Albumin/Globulin Ratio 0.9 (0.9-2) Influenza Type A (PCR) (Neg) Influenza Type B (PCR) (Neg) 02/07/19 02/07/19 Range/Units 12:42 14:59 WBC (4.8-10.8) K/uL RBC (4.2-5.4) M/uL Hgb (12.0-16.0) g/dL Hct (37-47) % MCV (80-100) fL MCH (25-34) pg MCHC (32-36) g/dL RDW Std Deviation (36.4-46.3) fL RDW Coeff of Majo (11.5-14.5) % Plt Count (130-400) K/uL MPV (7.4-10.4) fL Immature Gran % (Auto) % Neut % (Auto) % Lymph % (Auto) % Stevens % (Auto) % Eos % (Auto) % Baso % (Auto) % Immature Gran # (Auto) (0.00-0.02) K/uL Neut # (Auto) (1.4-6.5) K/uL Lymph # (Auto) (1.2-3.4) K/uL Stevens # (Auto) (0.11-0.59) K/uL Eos # (Auto) (0-0.5) K/uL Baso # (Auto) (0-0.2) K/uL PT (9.0-12.0) Seconds INR (0.9-1.1) APTT (21.0-31.0) Seconds PTT Ratio VBG pH 7.47 H (7.36-7.41) VBG pCO2 31 L (38-50) mmHg VBG pO2 43 mmHg VBG HCO3 22 mmol/L VBG O2 Saturation 80.1 % VBG Base Excess -1.1 mEq/L Barometric Pressure 727.5 mm/Hg Sodium (136-145) mmol/L Potassium (3.5-5.1) mmol/L Chloride (98-107) mmol/L Carbon Dioxide (21-32) mmol/L Anion Gap (3-11) BUN (7-18) mg/dl Creatinine (0.6-1.2) mg/dl Est Cr Clr Drug Dosing ml/min Est GFR ( Amer) Est GFR (Non-Af Amer) BUN/Creatinine Ratio (10-20) Glucose (70-99) mg/dl Calcium (8.5-10.1) mg/dl Magnesium (1.8-2.4) mg/dl Total Bilirubin (0.2-1) mg/dl AST (15-37) U/L ALT (12-78) U/L Alkaline Phosphatase (45-117) U/L Troponin I (0-0.045) ng/ml Total Protein (6.4-8.2) gm/dl Albumin (3.4-5.0) gm/dl Globulin (2.5-4.0) gm/dl Albumin/Globulin Ratio (0.9-2) Influenza Type A (PCR) Neg for Influ A (Neg) Influenza Type B (PCR) Neg for Influ B (Neg) Imaging Data Radiologist's Impression: Radiology results as stated below per my review and the radiologist's interpretation: XR chest 1V portable CLINICAL HISTORY: Dyspnea dyspnea COMPARISON STUDY: 02/03/2019 FINDINGS: Minimal atelectasis left base. Lungs otherwise appear clear. Diaphragms are smooth. IMPRESSION: Focal atelectasis left base. Otherwise negative study. The above report was generated using voice recognition software. It may contain grammatical, syntax or spelling errors. Electronically signed by: Tl Grullon M.D. 02/07/2019 12:54 PM ECG Data Attestation: I personally reviewed and interpreted this ECG as follows: Indication: SOB/dyspnea Rate (beats per minute): 99 Rhythm: normal sinus Findings: no PAC, no PVC, no ST depression, no ST elevation, no acute ischemic change and no ectopy Comparison ECG Date: from (02/03/19) Change: no significant change Blood Pressure Blood Pressure Findings: Normal blood pressure MDM Narrative The patient is a 53-year-old female who presented to the emergency department for an evaluation of difficulty breathing. The patient does have a history of a sthma and COPD. The patient was treated with bronchodilator therapy in the emergency department. She was reevaluated multiple times. She was treated with IV steroids. She received an hour-long nebulizer. She was reevaluated and was found to have considerable improvement in her air movement but was still very tachypneic. I discussed the patient's laboratory and radiographic studies with her. I also discussed her case with the on-call [facility] hospitalist. They have agreed to evaluate the patient in the emergency department for further management and disposition. The patient had recent surgery on her leg. She has no signs of acute DVT on physical exam. Given her respiratory findings on physical exam I did not pursue workup for pulmonary embolism at this time. Impression & Plan Respiratory distress, COPD exacerbation Discharge Plan Visit Data Chief Complaint: Shortness of Breath/Dyspnea Stated Complaint: sob ED Provider: Dwayne Pradhan Discharge Problem: Respiratory distress, COPD exacerbation Patient Disposition: Being Evaluated by Hospitalist Forms Stand Alone Forms: My [facility] Prescriptions Prescriptions: No Action albuterol sulfate 90 mcg/actuation Hfa Aerosol Inhaler 2 puff INHALATION Q4 PRN (Reason: Shortness Of Breath Or Wheezing) Qty: 0 RF: 0 isosorbide mononitrate 60 mg Tablet Extended Release 24 Hr 60 mg PO QAM Qty: 0 RF: 0 nitroglycerin [Nitrostat] 0.4 mg Tablet, Sublingual 0.4 mg Sublingual DIRECTED PRN (Reason: Chest Pain) Qty: 0 RF: 0 ranitidine HCl 150 mg Tablet 150 mg PO HS Qty: 0 RF: 0 aspirin [Aspirin Low Dose] 81 mg Tablet,Delayed Release (Dr/Ec) 81 mg PO QAM Qty: 0 RF: 0 lisinopril 10 mg Tablet 10 mg PO QAM Qty: 0 RF: 0 atorvastatin 80 mg Tablet 80 mg PO HS Qty: 0 RF: 0 clopidogrel [Plavix] 75 mg Tablet 75 mg PO QAM Qty: 0 RF: 0 pantoprazole 40 mg Tablet,Delayed Release (Dr/Ec) 40 mg PO QAM Qty: 0 RF: 0 diclofenac sodium [Voltaren] 1 % Gel 2 g TOPICAL QID PRN (Reason: Pain) Qty: 0 RF: 0 bupropion HCl 150 mg Tablet Sustained-Release 12 Hr 150 mg PO BID RF: 0 prochlorperazine maleate 10 mg Tablet 10 mg PO Q6 PRN (Reason: Nausea) RF: 0 Proctofoam HC 1-1 % Foam 1 applic [place] DIRECTED PRN (Reason: Pain) RF: 0 diclofenac potassium 50 mg Tablet 50 mg PO Q8 PRN (Reason: Pain) RF: 0 docusate sodium [Colace] 100 mg Capsule 100 mg PO BID RF: 0 gabapentin 300 mg Capsule 300 mg PO BID RF: 0 montelukast [Singulair] 10 mg Tablet 10 mg PO HS RF: 0 ergocalciferol (vitamin D2) [Vitamin D2] 50,000 unit Capsule 50,000 unit PO WK RF: 0 verapamil 80 mg Tablet 80 mg PO TID RF: 0 Dulera 200-5 mcg/actuation Hfa Aerosol Inhaler 2 puff INHALATION BID RF: 0 Spiriva Respimat 1.25 mcg/actuation Mist 2 puff INHALATION DAILY RF: 0 metformin 750 mg tablet extended release 24 hr 1,500 mg PO DAILY RF: 0 oxycodone 5 mg tablet 5 mg PO Q6H PRN (Reason: pain) Qty: 12 RF: 0 Novolin N NPH U-100 Insulin 100 unit/mL Suspension 10 - 30 unit SUBCUT BIDM RF: 0 Referrals Referrals: Nita Torres MD [Primary Care Provider] - The scribe's documentation has been prepared under my direction and personally reviewed by me in its entirety. I confirm that the note above accurately reflects all work, treatment, procedures, and medical decision making performed by me.
[2019-02-07] MEDS ORDERED: OXYCODONE HCL IR 5 MG TAB (IMMEDIATE RELEASE) PO STA (15:09)
[2019-02-07 15:11] LABS: Base Excess VBG -1.1 mEq/L; Oxygen Saturation VBG 80.1 %; pH VBG 7.47 (7.36-7.41)
--- NOTE | 2019-02-07 16:14 | History & Physical Report ---
Date of Service February 07, 2019 Assessment & Plan (1) Asthma: With acute exacerbation, presented with significant respiratory distress. She was not significantly hypoxic around upon arrival in the ER but had already received treatment with oxygen and nebulizers en route to the hospital. With tachypnea, severe wheezing, use of accessory muscles on admission. Chest x-ray without pneumonia but does have atelectasis possibly from mucous plugging -Admit to telemetry -Continue supplemental O2 to keep pulse ox greater than 90%, make use of BiPAP if pulse ox dropping or patient appears to be tiring out -Continue IV Solu-Medrol at 60 mg IV every 8 hours -Start scheduled duo nebs every 6 hours and every 2 as needed -Given history of smoking and with productive cough, will treat with Levaquin 500 mg IV every 24 hours -Continue home Dulera 2 puffs twice daily (2) Hypertension: Elevated pressures here likely secondary to respiratory distress -Continue home isosorbide 60 mg daily, lisinopril 10 mg daily, and verapamil 80 mg 3 times daily -IV hydralazine as needed SBP greater than 180 or DBP greater than 110 (3) Hyperlipidemia: -Continue atorvastatin (4) Migraine: None currently -Continue verapamil 80 mg p.o. 3 times daily as prophylaxis -Takes diclofenac 50 mg as needed for headache (5) Anxiety: Stable -Continue bupropion (6) Depression: Stable-continue bupropion (7) Diabetes mellitus, type 2: Diabetes mellitus on mealtime insulin and metformin at home, with hyperglycemia here secondary to corticosteroids -Start Lantus 10 units SQ nightly and sliding scale insulin -Accu-Cheks q. before meals and at bedtime -ADA diet -Check hemoglobin A1c in the morning (8) GERD (gastroesophageal reflux disease): -Continue Protonix 40 mg daily and ranitidine 150 mg p.o. nightly (9) Chronic back pain: Is prescribed gabapentin at home but is not taking this -Continue oxycodone as needed (10) Morbid obesity: BMI is 40.2 -Needs counseling on weight loss and dietary changes (11) CHF (congestive heart failure): With chronic diastolic CHF and LVH. No evidence of volume overload at this time -ECG here without ischemic changes -Needs good blood pressure control -Watch for volume overload (12) CAD (coronary artery disease): With a history of stents, no ischemic changes here on ECG -Continue aspirin, Plavix, statin, isosorbide, lisinopril (13) Obstructive sleep apnea on CPAP: -Use CPAP at night at 12 cm H2O (14) Transient ischemic attack (TIA): History of such -Continue aspirin, Plavix, statin (15) Left knee pain: With arthroscopic surgery on the knee on 01/28/[address] Starks -Sustained a fall on 02/03 onto the left knee and now with bruising and swelling with pain Knee x-ray on 02/03 is negative for fracture -Continue icing the area -Orthopedic consult to see her while she is here -Pain meds as needed (16) Hypokalemia: Potassium mildly low at 3.4 on admission (17) Current smoker: Smoked a pack a day x40 years, quit 2 days prior to admission due to severe asthma exacerbation -Encouraged continued sensation -Nicotine patch as needed (18) DVT prophylaxis: Lovenox SQ Disposition-admit to medical floor with telemetry May need PT/OT evaluations given 2 falls in the last 4 days with recent left knee surgery-we will await orthopedic consult before placing PT/OT orders History of Present Illness Chief Complaint: Shortness of breath Primary Care Provider: Ntia Torres MD This patient is a 53-year-old female with a history of asthma, current smoker, HTN, HL, TIA, DM 2, CHF, SMITA on CPAP, obesity, GERD, chronic back pain, depression and PTSD, migraines and OA who presents to the ER with several days of progressively worsening shortness of breath and wheezing. She was seen in the ER for a fall onto her left knee 4 days ago and at that time was noted to have a mild cough and shortness of breath. She was treated with steroids x1 dose in the ER and sent home. She reports her symptoms worsen since then and she quit smoking 2 days ago. She has pain in the chest only with coughing and pain in her abdomen from coughing. Her cough is mildly productive but she cannot get the sputum out. No fevers at home. She has been using her nebulizers at home without relief. She came in by EMS and received oxygen by facemask and a nebulizer treatment on the way here for severe respiratory distress. Her pulse ox here after that treatment was 93% on room air, but she was severely tachypneic and audibly wheezing with evidence of acute respiratory distress. She was treated with IV Solu-Medrol and nebulizer treatment in the ER. She was afebrile and her laboratory values were otherwise fairly unremarkable except for a WBC count of 11.1 and a potassium of 3.4. Her ECG was with normal sinus rhythm and LVH by voltage criteria. Her chest x-ray showed some atelectasis at the left base but no pneumonia. Her VBG was 7.47/31 Allergies Allergy/AdvReac Type Severity Reaction Status Date / Time No Known Allergies Allergy Verified 02/07/19 13:34 Home Medications Home Medications Medication Instructions Recorded Confirmed Type albuterol sulfate 2 puff INHALATION Q4 PRN #0 07/18/16 02/07/19 History aspirin [Aspirin Low Dose] 81 mg PO QAM #0 12/14/16 02/07/19 History isosorbide mononitrate 60 mg PO QAM #0 12/14/16 02/07/19 History nitroglycerin [Nitrostat] 0.4 mg SUBLINGUAL DIRECTED PRN 12/14/16 02/07/19 History #0 btl ranitidine HCl 150 mg PO HS #0 12/14/16 02/07/19 History lisinopril 10 mg PO QAM #0 05/04/17 02/07/19 History atorvastatin 80 mg PO HS #0 05/25/18 02/07/19 History clopidogrel [Plavix] 75 mg PO QAM #0 05/25/18 02/07/19 History diclofenac sodium [Voltaren] 2 g TOPICAL QID PRN #0 05/25/18 02/07/19 History pantoprazole 40 mg PO QAM #0 05/25/18 02/07/19 History Novolin N NPH U-100 Insulin 10 - 30 unit SUBCUT BIDM 06/28/18 02/07/19 History Dulera 2 puff INHALATION BID 12/04/18 02/07/19 History Proctofoam HC 1 applic [place] DIRECTED PRN 12/04/18 02/07/19 History Spiriva Respimat 2 puff INHALATION DAILY 12/04/18 02/07/19 History bupropion HCl 150 mg PO BID 12/04/18 02/07/19 History diclofenac potassium 50 mg PO Q8 PRN 12/04/18 02/07/19 History docusate sodium [Colace] 100 mg PO BID 12/04/18 02/07/19 History ergocalciferol (vitamin D2) 50,000 unit PO WK 12/04/18 02/07/19 History [Vitamin D2] gabapentin 300 mg PO BID 12/04/18 02/07/19 History montelukast [Singulair] 10 mg PO HS 12/04/18 02/07/19 History prochlorperazine maleate 10 mg PO Q6 PRN 12/04/18 02/07/19 History verapamil 80 mg PO TID 12/04/18 02/07/19 History metformin 1,500 mg PO DAILY 02/03/19 02/07/19 History oxycodone 5 mg PO Q6H PRN #12 tab 02/03/19 02/07/19 Rx Past Med/Surg History Medical History Asthma Chronic obstructive pulmonary disease Hypertension Hyperlipidemia Atrial tachycardia [facility] Transient ischemic attack (TIA) PLAVIX. FOLLOWS WITH PCP Migraine Anxiety Depression Post traumatic stress disorder Diabetes mellitus, type 2 IDDM History of recent steroid use FINISHED (MEDROL DOSEPAK) MAY 2018 --> ASTHMA FLARE UP GERD (gastroesophageal reflux disease) Chronic back pain Degenerative disc disease Osteoarthritis Fracture tibia/fibula LEFT WITH ORIF Facial fracture (2014) WITH RECONSTRUCTION Morbid obesity CHF (congestive heart failure) Leaky heart valve CAD (coronary artery disease) Obstructive sleep apnea on CPAP Surgical History History of cardiac cath X2 STENTS - (~2010, IN [place], [place]). NO STENTS - ([facility] @ ~2014) History of heart artery stent X2 STENTS (2010) UNSURE OF KIND. NO STENT CARDS PER PT. History of colonoscopy History of esophagogastroduodenoscopy (EGD) Status post right foot surgery History of bilateral tubal ligation History of mandibular surgery S/P left knee arthroscopy Family History Mother Breast cancer Diabetes Father Diabetes Coronary heart disease Social History Preferred Language: Slovenian Communication Ability: Effective Visual Impairment: No Limitations Beliefs That Will Affect Care: None marital status: Current Living Situation: Spouse Feels Safe at Home: Yes Safety Concerns: Feels Safe At This Time Smoking Status: Current every day smoker Tobacco Type: cigarettes Years Smoked: 40 Cigarettes Per Day: 20 Smoking End Date: 02/05/19 Second Hand Exposure: No Hx Alcohol Use: No Hx Substance Use: No Review of Systems Review of Systems: All systems reviewed & are unremarkable except as noted in HPI & below Physical Exam Constitutional: + acute distress (Tachypneic, speaking only with words and not fluent sentences) and + obese Eyes: PERRL, conjunctivae normal, anicteric sclerae ENMT: external ear and nose normal, oropharynx normal Neck: trachea midline, no thyromegaly Respiratory: + respiratory distress, + labored breathing, + uses accessory muscles and + tachypneic Auscultation: + diminished lung sounds and + wheezes (Diffuse inspiratory and expiratory); no crackles and no rhonchi Cardiovascular: RRR, no murmur, no edema Gastrointestinal (Abdomen): normal bowel sounds, soft, nontender, no hepatosplenomegaly Musculoskeletal: Extremities: + extremities abnormal to inspection (Left knee with moderate effusion, ecchymosis, sutures in place x2 ), no cyanosis and no clubbing Skin: no rashes, warm and dry Neurologic: moves all extremities and awake; no focal motor deficits Psychiatric: A+Ox3, euthymic affect Results & Data Vital Signs (Past 12 Hours) Vital Signs Pulse Resp BP BP Pulse Ox 02/07/19 15:13 102 H 26 H 137/101 H 100 02/07/19 13:14 102 H 17 155/95 H 100 02/07/19 12:46 100 02/07/19 12:43 22 98 02/07/19 12:27 26 H 138/91 100 Laboratory Results 02/07/19 02/07/19 02/07/19 Range/Units 17:43 14:59 12:42 WBC (4.8-10.8) K/uL RBC (4.2-5.4) M/uL Hgb (12.0-16.0) g/dL Hct (37-47) % MCV (80-100) fL MCH (25-34) pg MCHC (32-36) g/dL RDW Std Deviation (36.4-46.3) fL RDW Coeff of Majo (11.5-14.5) % Plt Count (130-400) K/uL MPV (7.4-10.4) fL Immature Gran % (Auto) % Neut % (Auto) % Lymph % (Auto) % Stafford % (Auto) % Eos % (Auto) % Baso % (Auto) % Immature Gran # (Auto) (0.00-0.02) K/uL Neut # (Auto) (1.4-6.5) K/uL Lymph # (Auto) (1.2-3.4) K/uL Stafford # (Auto) (0.11-0.59) K/uL Eos # (Auto) (0-0.5) K/uL Baso # (Auto) (0-0.2) K/uL PT (9.0-12.0) Seconds INR (0.9-1.1) APTT (21.0-31.0) Seconds PTT Ratio VBG pH 7.47 H (7.36-7.41) VBG pCO2 31 L (38-50) mmHg VBG pO2 43 mmHg VBG HCO3 22 mmol/L VBG O2 Saturation 80.1 % VBG Base Excess -1.1 mEq/L Barometric Pressure 727.5 mm/Hg Sodium (136-145) mmol/L Potassium (3.5-5.1) mmol/L Chloride (98-107) mmol/L Carbon Dioxide (21-32) mmol/L Anion Gap (3-11) BUN (7-18) mg/dl Creatinine (0.6-1.2) mg/dl Est Cr Clr Drug Dosing ml/min Est GFR ( Amer) Est GFR (Non-Af Amer) BUN/Creatinine Ratio (10-20) Glucose (70-99) mg/dl POC Glucose 295 H (70-99) Calcium (8.5-10.1) mg/dl Magnesium (1.8-2.4) mg/dl Total Bilirubin (0.2-1) mg/dl AST (15-37) U/L ALT (12-78) U/L Alkaline Phosphatase (45-117) U/L Troponin I (0-0.045) ng/ml Total Protein (6.4-8.2) gm/dl Albumin (3.4-5.0) gm/dl Globulin (2.5-4.0) gm/dl Albumin/Globulin Ratio (0.9-2) Influenza Type A (PCR) Neg for Influ A (Neg) Influenza Type B (PCR) Neg for Influ B (Neg) 02/07/19 02/07/19 02/07/19 Range/Units 12:41 12:41 12:41 WBC 11.10 H (4.8-10.8) K/uL RBC 4.20 (4.2-5.4) M/uL Hgb 13.0 (12.0-16.0) g/dL Hct 40.0 (37-47) % MCV 95.2 (80-100) fL MCH 31.0 (25-34) pg MCHC 32.5 (32-36) g/dL RDW Std Deviation 51.5 H (36.4-46.3) fL RDW Coeff of Majo 14.8 H (11.5-14.5) % Plt Count 267 (130-400) K/uL MPV 10.4 (7.4-10.4) fL Immature Gran % (Auto) 0.3 % Neut % (Auto) 49.9 % Lymph % (Auto) 41.8 % Stafford % (Auto) 6.7 % Eos % (Auto) 1.0 % Baso % (Auto) 0.3 % Immature Gran # (Auto) 0.03 H (0.00-0.02) K/uL Neut # (Auto) 5.55 (1.4-6.5) K/uL Lymph # (Auto) 4.64 H (1.2-3.4) K/uL Stafford # (Auto) 0.74 H (0.11-0.59) K/uL Eos # (Auto) 0.11 (0-0.5) K/uL Baso # (Auto) 0.03 (0-0.2) K/uL PT 10.2 (9.0-12.0) Seconds INR 1.0 (0.9-1.1) APTT 22.2 (21.0-31.0) Seconds PTT Ratio 0.8 VBG pH (7.36-7.41) VBG pCO2 (38-50) mmHg VBG pO2 mmHg VBG HCO3 mmol/L VBG O2 Saturation % VBG Base Excess mEq/L Barometric Pressure mm/Hg Sodium 139 (136-145) mmol/L Potassium 3.4 L (3.5-5.1) mmol/L Chloride 108 H (98-107) mmol/L Carbon Dioxide 27 (21-32) mmol/L Anion Gap 4.0 (3-11) BUN 10 (7-18) mg/dl Creatinine 0.85 (0.6-1.2) mg/dl Est Cr Clr Drug Dosing 96.5 ml/min Est GFR ( Amer) 90.0 Est GFR (Non-Af Amer) 77.7 BUN/Creatinine Ratio 12.2 (10-20) Glucose 112 H (70-99) mg/dl POC Glucose (70-99) Calcium 9.2 (8.5-10.1) mg/dl Magnesium 2.1 (1.8-2.4) mg/dl Total Bilirubin 0.3 (0.2-1) mg/dl AST 15 (15-37) U/L ALT 26 (12-78) U/L Alkaline Phosphatase 112 (45-117) U/L Troponin I < 0.015 (0-0.045) ng/ml Total Protein 7.4 (6.4-8.2) gm/dl Albumin 3.4 (3.4-5.0) gm/dl Globulin 4.0 (2.5-4.0) gm/dl Albumin/Globulin Ratio 0.9 (0.9-2) Influenza Type A (PCR) (Neg) Influenza Type B (PCR) (Neg) Diagnostic Findings Chest x-ray image personally reviewed by me and agree with the following report: XR chest 1V portable CLINICAL HISTORY: Dyspnea dyspnea COMPARISON STUDY: 02/03/2019 FINDINGS: Minimal atelectasis left base. Lungs otherwise appear clear. Diaphragms are smooth. IMPRESSION: Focal atelectasis left base. Otherwise negative study. Code Status & VTE Plan Code Status Full code VTE Prophylaxis Plan VTE Prophylaxis will be ordered: Yes (1) Asthma Asthma severity: moderate Asthma persistence: persistent Asthma complication type: with acute exacerbation Qualified Code(s): J45.41 - Moderate persistent asthma with (acute) exacerbation (2) Hypertension Hypertension type: essential hypertension Qualified Code(s): I10 - Essential (primary) hypertension (3) Hyperlipidemia Hyperlipidemia type: unspecified Qualified Code(s): E78.5 - Hyperlipidemia, unspecified (4) Transient ischemic attack (TIA) Transient cerebral ischemia type: unspecified Qualified Code(s): G45.9 - Transient cerebral ischemic attack, unspecified (5) Migraine Migraine type: unspecified Status migrainosus presence: without status migrainosus Intractability: not intractable Qualified Code(s): G43.909 - Migraine, unspecified, not intractable, without status migrainosus (6) Depression Depression Type: unspecified Qualified Code(s): F32.9 - Major depressive disorder, single episode, unspecified (7) Diabetes mellitus, type 2 Diabetes mellitus senior living insulin use: with lobsterman use Diabetes mellitus complication status: with hyperglycemia Qualified Code(s): E11.65 - Type 2 diabetes mellitus with hyperglycemia; Z79.4 - detention (current) use of insulin
[2019-02-07] MEDS ORDERED: PROCHLORPERAZINE MALEATE 10 MG TAB PO PRN (17:56)
[2019-02-07] MEDS ORDERED: GLUCOSE 40% GEL 15 GM TUBE PO PRN (17:56)
[2019-02-07] MEDS ORDERED: ONDANSETRON INJ 2 MG/ML 2 ML VIAL IV PRN (17:56)
[2019-02-07] MEDS ORDERED: MAGNESIUM HYDROXIDE SUSP 30 ML UDC PO PRN (17:56)
[2019-02-07] MEDS ORDERED: DICLOFENAC SOD 1% GEL 100 GM TUBE EXT PRN (17:56)
[2019-02-07] MEDS ORDERED: GLUCOSE 10 TABS/TUBE PO PRN (17:56)
[2019-02-07] MEDS ORDERED: NITROGLYCERIN SL 0.4 MG/TAB TAB SL PRN (17:56)
[2019-02-07] MEDS ORDERED: POLYETHYLENE (MIRALAX) 17 GM PACK PO PRN (17:56)
[2019-02-07] MEDS ORDERED: CARBOHYDRATES FOR HYPOGLYCEMIA PO PRN (17:56)
[2019-02-07] MEDS ORDERED: DEXTROSE 50% 50 ML SYRINGE IV PRN (17:56)
[2019-02-07] MEDS ORDERED: GLUCAGON FOR INJ 1 MG VIAL SQ PRN (17:56)
[2019-02-07] MEDS ORDERED: ACETAMINOPHEN 325 MG TAB PO PRN (17:56)
[2019-02-07] MEDS ORDERED: ALUMINUM/MAGNESIUM SUSP 30 ML UDC PO PRN (17:56)
[2019-02-07] MEDS: INSULIN ASPART 100 UNITS/ML 3 ML PEN SC SCH ×2 (18:48→21:17)
[2019-02-07] MEDS: LEVOFLOXACIN/D5W 500 MG/100 ML BAG IV SCH (19:50)
[2019-02-07] MEDS: methylPREDNISolone 60 MG in SYRINGE 0 ML IV SCH (19:50)
[2019-02-07] MEDS ORDERED: POTASSIUM CHLORIDE 20 MEQ TABCR PO STA (19:59)
[2019-02-07] MEDS: ALBUT/IPRATROP 3MG/0.5MG NEB 3 ML VIAL NEB SCH (20:09)
[2019-02-07] MEDS ORDERED: INSULIN GLARGINE SOLOSTAR 100 UNITS/ML 3 ML PEN SC SCH (21:00)
[2019-02-07] MEDS ORDERED: NON-FORMULARY MEDICATION (Mometasone-Formoterol [Dulera] 2 PUFFS) INH SCH (21:00)
[2019-02-07] MEDS: DOCUSATE SODIUM 100 MG CAP PO SCH (21:09)
[2019-02-07] MEDS: BuPROPion SR 150 MG TABCR PO SCH (21:10)
[2019-02-07] MEDS: ATORVASTATIN 40 MG TAB PO SCH (21:11)
[2019-02-07] MEDS: ENOXAPARIN INJ 40 MG/0.4 ML SYR SQ SCH (21:11)
[2019-02-07] MEDS: MONTELUKAST SODIUM 10 MG TABLET PO SCH (21:12)
[2019-02-07] MEDS: VERAPAMIL HCL 40 MG TAB PO SCH (21:13)
[2019-02-07] MEDS: OXYCODONE HCL IR 5 MG TAB (IMMEDIATE RELEASE) PO PRN (21:24)
[2019-02-07 23:23] LABS: Appearance Urine Clear (Clear); Bilirubin Urine Negative (Negative); Blood Urine Negative (Negative); Color Urine Yellow; Glucose Urine UA 2+ (Negative); Ketones Urine Negative (Negative); Leukocyte Esterase Urine Negative (Negative); Nitrite Urine Negative (Negative); Protein Urine Negative (Negative); Specific Gravity Urine 1.017 (1.000-1.030); Urobilinogen Urine Negative (Negative)
[2019-02-08] MEDS: OXYCODONE HCL IR 5 MG TAB (IMMEDIATE RELEASE) PO PRN ×4 (03:28→21:31)
[2019-02-08] MEDS: methylPREDNISolone 60 MG in SYRINGE 0 ML IV SCH ×3 (03:29→20:38)
[2019-02-08] MEDS: ALBUT/IPRATROP 3MG/0.5MG NEB 3 ML VIAL NEB SCH ×4 (06:51→19:35)
[2019-02-08 07:03] LABS: BUN Creatinine Ratio 16.7 (10-20); Calcium 9.7 mg/dl (8.5-10.1); Creatinine Clr Calc Pharmacy 86.9 ml/min; Est GFR (African American) 78.7; Est GFR (Non-African American) 67.9; Potassium 4.3 mmol/L (3.5-5.1)
[2019-02-08] MEDS: ISOSORBIDE MONO EXTENDED REL 60 MG TABCR PO SCH (07:39)
[2019-02-08] MEDS: LISINOPRIL 10 MG TAB PO SCH (07:40)
[2019-02-08] MEDS: VERAPAMIL HCL 40 MG TAB PO SCH ×3 (07:40→20:39)
[2019-02-08] MEDS: DOCUSATE SODIUM 100 MG CAP PO SCH ×2 (07:40→20:40)
[2019-02-08] MEDS: PANTOprazole 40 MG TAB PO SCH (07:41)
[2019-02-08] MEDS: BuPROPion SR 150 MG TABCR PO SCH ×2 (07:41→20:45)
[2019-02-08] MEDS: CLOPIDOGREL BISULFATE 75 MG TAB PO SCH (07:41)
[2019-02-08] MEDS: ASPIRIN 81 MG ECTAB PO SCH (07:41)
[2019-02-08] MEDS: INSULIN GLARGINE SOLOSTAR 100 UNITS/ML 3 ML PEN SC SCH ×2 (07:45→20:47)
[2019-02-08] MEDS: INSULIN ASPART 100 UNITS/ML 3 ML PEN SC SCH ×4 (08:24→20:59)
[2019-02-08 09:18] LABS: Estimated Average Glucose 174 mg/dl; Hemoglobin A1C 7.7 % (4.5-5.6)
--- NOTE | 2019-02-08 11:43 | Orthopedic Consultation ---
Date of Consultation February 08, 2019 Assessment & Plan (1) Contusion of left knee: Patient is about 11 days s/p left knee arthroscopy by Dr. Starks. She sustained a mechanical fall and is having increased pain since. X-rays were negative for fracture. I feel patient is having pain from contusion compounded by her surgical pain from recent arthroscopy. Recommend continuing ice as needed, WBAT. Will get sutures out if patient is still inpatient into next week and is unable to keep f/u with Dr. Starks's office. Thank you for this consult, we will follow with patient while she is admitted. (2) S/P left knee arthroscopy: History of Present Illness Reason for Consultation: Left knee pain Attending Physician: Booker Hall History of Present Illness Patient is a 53 year old female who was admitted to medical service for exacerbation of asthma. She is having complaint of left knee pain. She had left knee arthroscopy by Dr. Starks on 01/28/19. On 01/31 she sustained a mechanical fall and landed on her knee. She did go to ED at that time and x-rays in ED were negative for fracture. She has been going to PT 2x's per week. She has an appointment for follow up with Dr. Starks in the office on Monday02/12/19. Allergies Allergy/AdvReac Type Severity Reaction Status Date / Time No Known Allergies Allergy Verified 02/07/19 13:34 Home Medications Home Medications Medication Instructions Recorded Confirmed Type albuterol sulfate 2 puff INHALATION Q4 PRN #0 07/18/16 02/07/19 History aspirin [Aspirin Low Dose] 81 mg PO QAM #0 12/14/16 02/07/19 History isosorbide mononitrate 60 mg PO QAM #0 12/14/16 02/07/19 History nitroglycerin [Nitrostat] 0.4 mg SUBLINGUAL DIRECTED PRN 12/14/16 02/07/19 History #0 btl ranitidine HCl 150 mg PO HS #0 12/14/16 02/07/19 History lisinopril 10 mg PO QAM #0 05/04/17 02/07/19 History atorvastatin 80 mg PO HS #0 05/25/18 02/07/19 History clopidogrel [Plavix] 75 mg PO QAM #0 05/25/18 02/07/19 History diclofenac sodium [Voltaren] 2 g TOPICAL QID PRN #0 05/25/18 02/07/19 History pantoprazole 40 mg PO QAM #0 05/25/18 02/07/19 History Novolin N NPH U-100 Insulin 10 - 30 unit SUBCUT BIDM 06/28/18 02/07/19 History Dulera 2 puff INHALATION BID 12/04/18 02/07/19 History Proctofoam HC 1 applic [place] DIRECTED PRN 12/04/18 02/07/19 History Spiriva Respimat 2 puff INHALATION DAILY 12/04/18 02/07/19 History bupropion HCl 150 mg PO BID 12/04/18 02/07/19 History diclofenac potassium 50 mg PO Q8 PRN 12/04/18 02/07/19 History docusate sodium [Colace] 100 mg PO BID 12/04/18 02/07/19 History ergocalciferol (vitamin D2) 50,000 unit PO WK 12/04/18 02/07/19 History [Vitamin D2] gabapentin 300 mg PO BID 12/04/18 02/07/19 History montelukast [Singulair] 10 mg PO HS 12/04/18 02/07/19 History prochlorperazine maleate 10 mg PO Q6 PRN 12/04/18 02/07/19 History verapamil 80 mg PO TID 12/04/18 02/07/19 History metformin 1,500 mg PO DAILY 02/03/19 02/07/19 History oxycodone 5 mg PO Q6H PRN #12 tab 02/03/19 02/07/19 Rx Patient History Medical History Asthma Chronic obstructive pulmonary disease Hypertension Hyperlipidemia Atrial tachycardia [facility] Transient ischemic attack (TIA) PLAVIX. FOLLOWS WITH PCP Migraine Anxiety Depression Post traumatic stress disorder Diabetes mellitus, type 2 IDDM History of recent steroid use FINISHED (MEDROL DOSEPAK) MAY 2018 --> ASTHMA FLARE UP GERD (gastroesophageal reflux disease) Chronic back pain Degenerative disc disease Osteoarthritis Fracture tibia/fibula LEFT WITH ORIF Facial fracture (2014) WITH RECONSTRUCTION Morbid obesity CHF (congestive heart failure) Leaky heart valve CAD (coronary artery disease) Obstructive sleep apnea on CPAP Surgical History History of cardiac cath X2 STENTS - (~2010, IN [place], [place]). NO STENTS - ([facility] @ ~2014) History of heart artery stent X2 STENTS (2010) UNSURE OF KIND. NO STENT CARDS PER PT. History of colonoscopy History of esophagogastroduodenoscopy (EGD) Status post right foot surgery History of bilateral tubal ligation History of mandibular surgery S/P left knee arthroscopy Family History Mother Breast cancer Diabetes Father Diabetes Coronary heart disease Social History Preferred Language: Frisian Communication Ability: Effective Visual Impairment: No Limitations Beliefs That Will Affect Care: None marital status: Current Living Situation: Spouse Feels Safe at Home: Yes Safety Concerns: Feels Safe At This Time Smoking Status: Current every day smoker Tobacco Type: cigarettes Years Smoked: 40 Cigarettes Per Day: 20 Smoking End Date: 02/05/19 Second Hand Exposure: No Hx Alcohol Use: No Hx Substance Use: No Review of Systems Review of Systems: All systems reviewed & are unremarkable except as noted in HPI & below Physical Exam Constitutional: WD/WN, vitals as above Respiratory: + labored breathing; no audible wheezes Cardiovascular: Rate/Rhythm: regular rate and regular rhythm Musculoskeletal: Left knee with mild swelling noted, does not have a large effusion. She does have mild to moderate ecchymosis. Portals are intact with no drainage or erythema. No erythema to her knee. Calf is soft and non tender. ROM is mildly decreased secondary to pain. Skin: no rashes, warm and dry Psychiatric: A+Ox3, euthymic affect Results & Data Vital Signs (Past 12 Hours) Vital Signs Temp Pulse Pulse Resp BP BP Pulse Ox 02/08/19 11:08 90 18 96 02/08/19 08:00 96 H 02/08/19 07:17 35.9 C L 97 H 20 159/99 H 98 02/08/19 06:53 102 H 18 96 02/08/19 03:33 97 H 166/97 H 02/08/19 03:24 36.7 C 111 H 24 97 02/08/19 02:07 100 H 02/08/19 02:00 36.8 C 52 L 18 177/99 H 95
--- NOTE | 2019-02-08 11:50 | CT Scan Report ---
CT head/brain wo con CT DOSE: HISTORY: Trauma reason fall, head injury TECHNIQUE: Multiaxial CT images of the head were performed without the use of intravenous contrast. A dose lowering technique was utilized adhering to the principles of ALARA. Comparison: None. Findings: The paranasal sinuses and mastoid air cells are clear. The calvarium and skull base are int act. The ventricles and sulci are within normal limits. There is no mass, hematoma, midline shift, or acute infarct. Impression: No acute intracranial abnormality. The above report was generated using voice recognition software. It may contain grammatical, syntax or spelling errors. Electronically signed by: Tl Grullon M.D. 02/08/2019 11:48 AM
--- NOTE | 2019-02-08 11:53 | CT Scan Report ---
CT cervical spine wo con CT DOSE: HISTORY: Trauma. Pain. exquisite tenderness lower c-spine s/p fall TECHNIQUE: Multiaxial CT images of the cervical spine were performed and reformatted in the sagittal and coronal plane without the use of contrast. A dose lowering technique was utilized adhering to th e principles of ALARA. COMPARISON: 03/02/2018 FINDINGS: No evidence for compression deformity. Reversal of the normal cervical curvature consistent with muscular spasm. Considerable degenerative disc change as well as anterior and posterior osteophytic reaction througho ut the entire cervical region. No acute process of the C1-C2 articulation. Posterior arch is intact at all levels. IMPRESSION: 1. No acute process. 2. Muscle spasm. 3. Degenerative change. The above report was generated using voice recognition software. It may contain grammatical, syntax or spelling errors. Electronically signed by: Tl Grullon M.D. 02/08/2019 11:52 AM
--- NOTE | 2019-02-08 11:59 | XRay Report ---
XR chest 2V routine CLINICAL HISTORY: b/l wheezing; eval pneumonia COMPARISON STUDY: 02/07/2019 FINDINGS: Improved exam. Lungs are now considered clear. Diaphragms are smooth. IMPRESSION: No acute process. The lungs are now clear. The above report was generated using voice recognition software. It may contain grammatical, syntax or spelling errors. Electronically signed by: Tl Grullon M.D. 02/08/2019 11:57 AM
[2019-02-08] MEDS: LIDOCAINE 5% 1 PATCH TD SCH (12:05)
--- NOTE | 2019-02-08 12:05 | CT Scan Report ---
CT thoracic spine wo con CT DOSE: 2141.70 mGy.cm HISTORY: Pain. Trauma. pain, t-spine, s/p fall TECHNIQUE: Multiaxial CT images of the thoracic spine were performed and reformatted in the sagittal and coronal plane without the use of contrast. A dose lowering technique was utilized adhering to th e principles of ALARA. COMPARISON: None. FINDINGS: No fractures. No subluxation. Paraspinal soft tissues are unremarkable. Moderate degenerati ve disc and endplate change throughout the entire thoracic region. No evidence for compression deform ity. IMPRESSION: No fractures within the thoracic spine. Moderate degenerative change. The above report was generated using voice recognition software. It may contain grammatical, syntax or spelling errors. Electronically signed by: Tl Grullon M.D. 02/08/2019 12:04 PM
[2019-02-08] MEDS: guaiFENesin 600 MG TABCR PO SCH ×2 (12:06→20:43)
[2019-02-08] MEDS: LEVOFLOXACIN/D5W 500 MG/100 ML BAG IV SCH (17:29)
[2019-02-08] MEDS: ATORVASTATIN 40 MG TAB PO SCH (20:41)
[2019-02-08] MEDS: ENOXAPARIN INJ 40 MG/0.4 ML SYR SQ SCH (20:42)
[2019-02-08] MEDS: MONTELUKAST SODIUM 10 MG TABLET PO SCH (20:44)
--- NOTE | 2019-02-08 20:54 | Hospitalist Progress Note ---
Date of Service February 08, 2019 Assessment & Plan (1) Acute respiratory failure with hypoxia: 2nd to severe asthma exacerbation. cont high-dose IV steroids, nebs, supportive care. repeat cxr today. (2) Asthma: With acute exacerbation. No wean on high-dose IV steroids today. Cont nebs. Cont inhalers. Mucinex. Incentive spirometry. Currently on levaquin - uncertain if needed. Repeat cxr today. Present on Admission?: Yes (3) Left knee pain: s/p arthroscopic surgery 01/28/[address] Starks. Had fall on 02/03 onto the left knee. Continues with pain from that fall. Knee x-rays on 02/03 negative for fracture. Ortho consulted for their opinion. (4) Diabetes mellitus, type 2: Uncontrolled - 2nd to steroids. Increase lantus to 20 units BID. May need larger amounts. Adjust novolog. A1c noted to be 7.7%. Present on Admission?: Yes (5) Neck pain: In the setting of trauma from a fall at home. head CT, CT of c-spine, and CT of t-spine ordered to exclude fractures from the fall. Lidoderm patches. K-pad heating. Present on Admission?: Yes (6) Hypertension: Cont isosorbide 60 mg daily, lisinopril 10 mg daily, and verapamil 80 mg 3 times daily Adjust as needed. (7) Hyperlipidemia: atorvastatin (8) Migraine: Continue verapamil 80 mg p.o. TID for prophylaxis diclofenac 50 mg as needed for headache (9) Anxiety: bupropion (10) Depression: bupropion (11) GERD (gastroesophageal reflux disease): Protonix 40 mg daily and ranitidine 150 mg p.o. nightly (12) Morbid obesity: BMI is 40.7 (13) CAD (coronary artery disease): With a history of stents, no ischemic changes here on ECG or ischemic symptoms at this time. Continue aspirin, Plavix, statin, isosorbide, lisinopril. Uncertain why she is not on beta irene. (14) Obstructive sleep apnea on CPAP: Cont CPAP at night (12 cm H2O) (15) Transient ischemic attack (TIA): History of. Continue aspirin, Plavix, statin for secondary prevention. (16) Current smoker: Long-standing. Smoking cessation counseling. Nicoderm if desired. (17) DVT prophylaxis: Lovenox will obtain PT, OT Subjective pt reports having fallen in the shower at home prior to admission, striking a shower chair and the chair breaking into 2 pieces. her head/neck hit the chair on the way down to the floor of the shower. since that fall she has had significant upper back/lower neck pain and left arm numbness traveling down the back of the arm and into the 4th/5th digits. tele stable overnight. asthma - still very wheezy; minimal cough. Review of Systems Constitutional: no fever Respiratory: + dyspnea on exertion and + wheezing; no hemoptysis Cardiovascular: no chest pain Gastrointestinal: no abdominal pain Physical Exam Constitutional: + acute distress (tachypneic, audible wheezing ) and + morbidly obese ENMT: external ear and nose normal, oropharynx normal Respiratory: + labored breathing and + uses accessory muscles Auscultation: + diminished lung sounds, + rhonchi and + wheezes; no rales Cardiovascular: Rate/Rhythm: regular rate and regular rhythm Heart Sounds: normal S1 and normal S2; no murmur Vessels: normal peripheral pulses; no JVD Extremities: no edema Gastrointestinal (Abdomen): normal bowel sounds, soft, nontender, no hepatosplenomegaly Musculoskeletal: 1. neck - very tender to palpation over lower cervical seg ments/higher thoracic segments. no obvious deformity. 2. no lumbar spine pain to palpation 3. neck - restricted passive range of motion due to pain 4. left knee - arthroscopic incision sites clean, sutures intact; mild effusion present; no deformity. Neurologic: moves all extremities; no focal motor deficits Psychiatric: A+Ox3, euthymic affect Results & Data Vital Signs (Past 12 Hours) Vital Signs Temp Pulse Pulse Resp BP Pulse Ox 02/08/19 20:00 36.7 C 103 H 18 131/79 93 02/08/19 19:36 94 H 18 97 02/08/19 16:00 90 02/08/19 15:10 81 20 99 02/08/19 15:03 37.1 C 85 20 118/67 95 02/08/19 11:45 36.8 C 90 20 104/63 96 02/08/19 11:08 90 18 96 Laboratory Results Laboratory Results - last 24 hr 02/07/19 02/07/19 02/08/19 21:06 22:45 06:17 Sodium Potassium Chloride Carbon Dioxide Anion Gap BUN Creatinine Est Cr Clr Drug Dosing Est GFR ( Amer) Est GFR (Non-Af Amer) BUN/Creatinine Ratio Glucose POC Glucose 298 H Estimat Average Glucose 174 Hemoglobin A1c 7.7 H Calcium Urine Color Yellow Urine Appearance Clear Urine pH 6.0 Ur Specific [place] 1.017 Urine Protein Negative Urine Glucose (UA) 2+ H Urine Ketones Negative Urine Blood Negative Urine Nitrite Negative Urine Bilirubin Negative Urine Urobilinogen Negative Ur Leukocyte Esterase Negative 02/08/19 02/08/19 02/08/19 06:17 08:03 12:08 Sodium 138 Potassium 4.3 D Chloride 106 Carbon Dioxide 24 Anion Gap 8.0 BUN 16 D Creatinine 0.95 Est Cr Clr Drug Dosing 86.9 Est GFR ( Amer) 78.7 Est GFR (Non-Af Amer) 67.9 BUN/Creatinine Ratio 16.7 Glucose 257 H POC Glucose 258 H 192 H Estimat Average Glucose Hemoglobin A1c Calcium 9.7 Urine Color Urine Appearance Urine pH Ur Specific [place] Urine Protein Urine Glucose (UA) Urine Ketones Urine Blood Urine Nitrite Urine Bilirubin Urine Urobilinogen Ur Leukocyte Esterase 02/08/19 16:25 Sodium Potassium Chloride Carbon Dioxide Anion Gap BUN Creatinine Est Cr Clr Drug Dosing Est GFR ( Amer) Est GFR (Non-Af Amer) BUN/Creatinine Ratio Glucose POC Glucose 256 H Estimat Average Glucose Hemoglobin A1c Calcium Urine Color Urine Appearance Urine pH Ur Specific [place] Urine Protein Urine Glucose (UA) Urine Ketones Urine Blood Urine Nitrite Urine Bilirubin Urine Urobilinogen Ur Leukocyte Esterase (1) Diabetes mellitus, type 2 Diabetes mellitus complication status: with hyperglycemia Diabetes mellitus intermediate insulin use: with bed bug exterminator use Qualified Code(s): E11.65 - Type 2 diabetes mellitus with hyperglycemia; Z79.4 - FDC (current) use of insulin (2) CAD (coronary artery disease) Coronary Disease-Associated Artery/Lesion type: [place] artery [place] vs. transplanted heart: [place] heart Associated angina: without angina Qualified Code(s): I25.10 - Atherosclerotic heart disease of [place] coronary artery without angina pectoris (3) Depression Depression Type: unspecified Qualified Code(s): F32.9 - Major depressive disorder, single episode, unspecified (4) Migraine Intractability: not intractable Migraine type: unspecified Status migrainosus presence: without status migrainosus Qualified Code(s): G43.909 - Migraine, unspecified, not intractable, without status migrainosus (5) Hyperlipidemia Hyperlipidemia type: unspecified Qualified Code(s): E78.5 - Hyperlipidemia, unspecified (6) Left knee pain Chronicity: acute Qualified Code(s): M25.562 - Pain in left knee (7) GERD (gastroesophageal reflux disease) Esophagitis presence: esophagitis presence not specified Qualified Code(s): K21.9 - Gastro-esophageal reflux disease without esophagitis (8) Transient ischemic attack (TIA) Transient cerebral ischemia type: unspecified Qualified Code(s): G45.9 - Transient cerebral ischemic attack, unspecified (9) Hypertension Hypertension type: essential hypertension Qualified Code(s): I10 - Essential (primary) hypertension (10) Asthma Asthma complication type: with acute exacerbation Asthma persistence: persistent Asthma severity: moderate Qualified Code(s): J45.41 - Moderate persistent asthma with (acute) exacerbation
[2019-02-08] MEDS ORDERED: INSULIN GLARGINE SOLOSTAR 100 UNITS/ML 3 ML PEN SC ONE (21:15)
[2019-02-09] MEDS: ALBUT/IPRATROP 3MG/0.5MG NEB 3 ML VIAL NEB SCH ×3 (00:02→11:10)
[2019-02-09] MEDS: OXYCODONE HCL IR 5 MG TAB (IMMEDIATE RELEASE) PO PRN ×4 (03:13→22:22)
[2019-02-09] MEDS: methylPREDNISolone 60 MG in SYRINGE 0 ML IV SCH ×3 (03:14→21:13)
[2019-02-09 06:42] LABS: BUN Creatinine Ratio 25.5 (10-20); Calcium 9.5 mg/dl (8.5-10.1); Creatinine Clr Calc Pharmacy 90.7 ml/min; Est GFR (African American) 82.9; Est GFR (Non-African American) 71.5; Potassium 4.6 mmol/L (3.5-5.1)
[2019-02-09] MEDS: LIDOCAINE 5% 1 PATCH TD SCH (08:05)
[2019-02-09] MEDS: ISOSORBIDE MONO EXTENDED REL 60 MG TABCR PO SCH (08:06)
[2019-02-09] MEDS: DOCUSATE SODIUM 100 MG CAP PO SCH ×2 (08:06→20:48)
[2019-02-09] MEDS: VERAPAMIL HCL 40 MG TAB PO SCH ×3 (08:06→20:48)
[2019-02-09] MEDS: PANTOprazole 40 MG TAB PO SCH (08:06)
[2019-02-09] MEDS: ASPIRIN 81 MG ECTAB PO SCH (08:06)
[2019-02-09] MEDS: guaiFENesin 600 MG TABCR PO SCH ×2 (08:06→20:49)
[2019-02-09] MEDS: LISINOPRIL 10 MG TAB PO SCH (08:07)
[2019-02-09] MEDS: BuPROPion SR 150 MG TABCR PO SCH ×2 (08:07→20:49)
[2019-02-09] MEDS: CLOPIDOGREL BISULFATE 75 MG TAB PO SCH (08:07)
[2019-02-09] MEDS: INSULIN ASPART 100 UNITS/ML 3 ML PEN SC SCH ×4 (08:09→21:16)
[2019-02-09] MEDS ORDERED: COUGH DROP (SUGAR FREE) LOZ 24 LOZ/1 BOX BUCCAL ONE (08:19)
[2019-02-09] MEDS ORDERED: INSULIN GLARGINE SOLOSTAR 100 UNITS/ML 3 ML PEN SC SCH (09:00)
--- NOTE | 2019-02-09 09:04 | Orthopedic Progress Note ---
Date of Service February 09, 2019 Assessment & Plan (1) Contusion of left knee: Patient is 12days s/p left knee arthroscopy by Dr. Starks. She has appointment with Dr. Starks on Monday. Knee pain is stable. Continue supportive care. She may be WBAT. Ortho will sign off at this time. F/u with Dr. Starks at scheduled visit for reevaluation and suture removal. Please let us know if you have any questions. (2) S/P left knee arthroscopy: Subjective Patient is resting in bed doing nebulizer treatment. Knee pain is stable. She is POD#12 left knee scope. Physical Exam Physical Exam: Mild to moderate ecchymosis about the knee. Limited ROM secondary to pain. No calf tenderness. N/V status and sensation intact. Results & Data Vital Signs (Past 12 Hours) Vital Signs Temp Pulse Pulse Resp BP BP Pulse Ox 02/09/19 08:04 36.5 C 95 H 22 175/103 H 96 02/09/19 07:28 98 H 02/09/19 07:16 102 H 18 97 02/09/19 03:14 36.6 C 94 H 18 151/92 H 95 02/09/19 01:35 101 H 02/09/19 00:02 91 H 18 94 02/08/19 23:04 37 C 103 H 22 162/89 H 94
[2019-02-09] MEDS ORDERED: INSULIN GLARGINE SOLOSTAR 100 UNITS/ML 3 ML PEN SC STA (09:13)
[2019-02-09] MEDS: INSULIN GLARGINE SOLOSTAR 100 UNITS/ML 3 ML PEN SC SCH ×2 (10:02→21:15)
[2019-02-09] MEDS: LEVALBUTEROL 1.25MG/0.5ML NEB INH SCH ×2 (15:09→19:38)
[2019-02-09] MEDS: IPRATROPIUM BROMIDE NEB SOLN 0.02% 2.5 ML VIAL INH SCH ×2 (15:10→19:38)
[2019-02-09] MEDS: DICLOFENAC SODIUM 25 MG TABDR PO PRN (17:27)
[2019-02-09] MEDS: LEVOFLOXACIN/D5W 500 MG/100 ML BAG IV SCH (17:31)
[2019-02-09] MEDS ORDERED: XOPENEX/ATROVENT 1.25mg/0.5MG NEB COMBO NEB SCH (20:00)
--- NOTE | 2019-02-09 20:44 | Hospitalist Progress Note ---
Date of Service February 09, 2019 Assessment & Plan (1) Acute respiratory failure with hypoxia: 2nd to severe asthma exacerbation. Improving. Cut steroids to q12h dosing. cont nebs, supportive care. repeat cxr yesterday w/o pneumonia. (2) Asthma: With acute exacerbation. IMPROVING. Wean high-dose IV steroids to q12h dosing. Cont nebs. Cont inhalers. Mucinex. Incentive spirometry. Currently on levaquin - uncertain if needed - will d/c especially in light of negative cxr yesterday. (3) Left knee pain: s/p arthroscopic surgery 01/28/[address] Starks. Had fall on 02/03 onto the left knee. Continues with pain from that fall. Knee x-rays on 02/03 negative for fracture. Ortho consulted - contusion suspected - ice, NSAIDs. (4) Diabetes mellitus, type 2: Uncontrolled - 2nd to steroids. Increase lantus again and adjust novolog. Should start to improve w/ weaning of steroids. (5) Neck pain: In the setting of trauma from a fall at home. head CT, CT of c-spine, and CT of t-spine negative for fractures. Lidoderm patches. K-pad heating. NSAIDs prn. Steroids for asthma should help as well. (6) Hypertension: Cont isosorbide 60 mg daily, lisinopril 10 mg daily, and verapamil 80 mg 3 times daily Labile/high - probably due to steroids, pain, etc. Consider titration of VINICIUS tomorrow. (7) Hyperlipidemia: atorvastatin (8) Migraine: Continue verapamil 80 mg p.o. TID for prophylaxis diclofenac 50 mg as needed for headache (9) Anxiety: bupropion (10) Depression: bupropion (11) GERD (gastroesophageal reflux disease): Protonix 40 mg daily and ranitidine 150 mg p.o. nightly (12) Morbid obesity: BMI is 40.7 (13) CAD (coronary artery disease): With a history of stents, no ischemic changes here on ECG or ischemic symptoms at this time. Continue aspirin, Plavix, statin, isosorbide, lisinopril. Uncertain why she is not on beta irene. (14) Obstructive sleep apnea on CPAP: Cont CPAP at night (12 cm H2O) (15) Transient ischemic attack (TIA): History of. Continue aspirin, Plavix, statin for secondary prevention. (16) Current smoker: Long-standing. Smoking cessation counseling. (17) DVT prophylaxis: Lovenox PT / OT evals progressing Subjective patient overall feels better. less cough, much less wheezing. no dyspnea at rest. does have KLINE w/ walking to bathroom. neck/back pain improved. no further paresthesias left arm. left knee pain is similar to past visit. tele stable w/ periods of sinus tach. Review of Systems Constitutional: no fever Respiratory: no change in sputum and no hemoptysis Cardiovascular: no chest pain Gastrointestinal: no abdominal pain, no constipation and no diarrhea/loose stools Physical Exam Constitutional: + morbidly obese; no acute distress and not ill appearing ENMT: external ear and nose normal, oropharynx normal Respiratory: no respiratory distress and no labored breathing Auscultation: + wheezes (improved from yesterday's exam); no rales Cardiovascular: Rate/Rhythm: regular rate and regular rhythm Heart Sounds: normal S1 and normal S2; no murmur Vessels: normal peripheral pulses; no JVD Extremities: no edema Gastrointestinal (Abdomen): normal bowel sounds, soft, nontender, no hepatosplenomegaly Musculoskeletal: minimal tenderness to palpation over upper t-spine and lower c-spine; left knee w/ mild effusion and overlying ecchymoses Neurologic: no focal motor deficits Psychiatric: A+Ox3, euthymic affect Results & Data Vital Signs (Past 12 Hours) Vital Signs Temp Pulse Pulse Resp BP Pulse Ox 02/09/19 19:38 108 H 18 94 02/09/19 19:36 37.1 C 89 17 152/88 H 95 02/09/19 15:14 96 H 18 96 02/09/19 14:59 36.7 C 93 H 20 144/87 H 96 02/09/19 11:38 36.6 C 94 H 18 147/84 H 98 02/09/19 11:10 109 H 20 93 Laboratory Results Laboratory Results - last 24 hr 02/08/19 02/09/19 02/09/19 20:37 05:33 07:48 Sodium 136 Potassium 4.6 Chloride 104 Carbon Dioxide 24 Anion Gap 7.0 BUN 23 H Creatinine 0.91 Est Cr Clr Drug Dosing 90.7 Est GFR ( Amer) 82.9 Est GFR (Non-Af Amer) 71.5 BUN/Creatinine Ratio 25.5 H Glucose 284 H POC Glucose 255 H 259 H Calcium 9.5 Specimen Hemolysis 02/09/19 02/09/19 02/09/19 11:46 16:38 20:27 Sodium Potassium Chloride Carbon Dioxide Anion Gap BUN Creatinine Est Cr Clr Drug Dosing Est GFR ( Amer) Est GFR (Non-Af Amer) BUN/Creatinine Ratio Glucose POC Glucose 291 H 214 H 222 H Calcium Specimen Hemolysis (1) Diabetes mellitus, type 2 Diabetes mellitus complication status: with hyperglycemia 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 transplanted heart: [place] heart Qualified Code(s): I25.10 - Atherosclerotic heart disease of [place] coronary artery without angina pectoris (3) Depression Depression Type: unspecified Qualified Code(s): F32.9 - Major depressive disorder, single episode, unspecified (4) Migraine Intractability: not intractable Migraine type: unspecified Status migrainosus presence: without status migrainosus Qualified Code(s): G43.909 - Migraine, unspecified, not intractable, without status migrainosus (5) Hyperlipidemia Hyperlipidemia type: unspecified Qualified Code(s): E78.5 - Hyperlipidemia, unspecified (6) Left knee pain Chronicity: acute Qualified Code(s): M25.562 - Pain in left knee (7) GERD (gastroesophageal reflux disease) Esophagitis presence: esophagitis presence not specified Qualified Code(s): K21.9 - Gastro-esophageal reflux disease without esophagitis (8) Transient ischemic attack (TIA) Transient cerebral ischemia type: unspecified Qualified Code(s): G45.9 - Transient cerebral ischemic attack, unspecified (9) Hypertension Hypertension type: essential hypertension Qualified Code(s): I10 - Essential (primary) hypertension (10) Asthma Asthma complication type: with acute exacerbation Asthma persistence: persistent Asthma severity: moderate Qualified Code(s): J45.41 - Moderate persistent asthma with (acute) exacerbation
[2019-02-09] MEDS: ATORVASTATIN 40 MG TAB PO SCH (20:48)
[2019-02-09] MEDS: ENOXAPARIN INJ 40 MG/0.4 ML SYR SQ SCH (20:49)
[2019-02-09] MEDS: MONTELUKAST SODIUM 10 MG TABLET PO SCH (20:49)
[2019-02-10] MEDS: IPRATROPIUM BROMIDE NEB SOLN 0.02% 2.5 ML VIAL INH SCH ×4 (01:46→19:28)
[2019-02-10] MEDS: LEVALBUTEROL 1.25MG/0.5ML NEB INH SCH ×4 (01:46→19:27)
[2019-02-10] MEDS: OXYCODONE HCL IR 5 MG TAB (IMMEDIATE RELEASE) PO PRN ×3 (04:19→22:31)
[2019-02-10] MEDS: ISOSORBIDE MONO EXTENDED REL 60 MG TABCR PO SCH (07:58)
[2019-02-10] MEDS: PANTOprazole 40 MG TAB PO SCH (07:58)
[2019-02-10] MEDS: DOCUSATE SODIUM 100 MG CAP PO SCH ×2 (07:58→21:06)
[2019-02-10] MEDS: guaiFENesin 600 MG TABCR PO SCH ×2 (07:58→21:06)
[2019-02-10] MEDS: DICLOFENAC SODIUM 25 MG TABDR PO PRN ×2 (07:59→14:38)
[2019-02-10] MEDS: VERAPAMIL HCL 40 MG TAB PO SCH ×3 (07:59→21:08)
[2019-02-10] MEDS: ASPIRIN 81 MG ECTAB PO SCH (07:59)
[2019-02-10] MEDS: CLOPIDOGREL BISULFATE 75 MG TAB PO SCH (07:59)
[2019-02-10] MEDS: BuPROPion SR 150 MG TABCR PO SCH ×2 (07:59→21:09)
[2019-02-10] MEDS: LIDOCAINE 5% 1 PATCH TD SCH (08:00)
[2019-02-10] MEDS: methylPREDNISolone 60 MG in SYRINGE 0 ML IV SCH (08:01)
[2019-02-10] MEDS: FLUTICASONE/SALMETEROL 250/50 (ADVAIR) 14 PUFF/1 INHALER INH SCH ×2 (08:06→21:04)
[2019-02-10] MEDS: METFORMIN HCL ER 500 MG TABCR PO SCH ×2 (08:06→17:24)
[2019-02-10] MEDS: TIOTROPIUM BROMIDE 5 PUFF/90 MCG INH INH SCH (08:07)
[2019-02-10] MEDS: LISINOPRIL 20 MG TAB PO SCH (08:07)
[2019-02-10] MEDS: INSULIN ASPART 100 UNITS/ML 3 ML PEN SC SCH ×4 (08:54→21:13)
[2019-02-10] MEDS: INSULIN GLARGINE SOLOSTAR 100 UNITS/ML 3 ML PEN SC SCH ×2 (08:54→21:13)
--- NOTE | 2019-02-10 16:00 | Hospitalist Progress Note ---
Date of Service February 10, 2019 Assessment & Plan (1) Acute respiratory failure with hypoxia: 2nd to severe asthma exacerbation. Improving but I feel she would benefit from 1 more day of IV steroids. Cut steroid dose to 40mg q12h then change to po prednisone in am. cont nebs, supportive care. cont pulmonary toilet. Present on Admission?: Yes (2) Asthma: With acute exacerbation. IMPROVING. Cut IV steroids to 40mg q12h then likely PO prednisone in am. Cont nebs. Cont inhalers. Mucinex. Incentive spirometry. Had received IV levaquin; will use doxy 100mg BID to complete antibiotic course (her asthma is likely COPD given her extensive smoking history). (3) Left knee pain: s/p arthroscopic surgery 01/28/[address] Starks. Had fall on 02/03 onto the left knee. Knee x-rays on 02/03 negative for fracture. Ortho consulted - contusion suspected - ice, NSAIDs. WBAT. Brace. (4) Diabetes mellitus, type 2: Improving. Since we are weaning steroids will cut lantus back to 25 units BID. Add metformin 500 BID. Will need to reduce steroids again tomorrow. (5) Neck pain: In the setting of trauma from a fall at home. head CT, CT of c-spine, and CT of t-spine negative for fractures. Lidoderm patches. NSAIDs prn. Steroids for asthma/COPD should help. Overall improved. (6) Hypertension: Cont isosorbide 60 mg daily, lisinopril 10 mg daily, and verapamil 80 mg 3 times daily Labile/high - probably due to steroids, pain, etc. Increase lisinopril to 20mg/day today. (7) Hyperlipidemia: atorvastatin (8) Migraine: Continue verapamil 80 mg p.o. TID for prophylaxis diclofenac 50 mg as needed for headache (9) Anxiety: bupropion (10) Depression: bupropion this should help with smoking cessation as well (11) GERD (gastroesophageal reflux disease): Protonix 40 mg daily and ranitidine 150 mg p.o. nightly (12) Morbid obesity: BMI is 40.7 (13) CAD (coronary artery disease): With a history of stents, no ischemic changes here on ECG or ischemic symptoms at this time. Continue aspirin, Plavix, statin, isosorbide, lisinopril. Uncertain why she is not on beta irene. (14) Obstructive sleep apnea on CPAP: Cont CPAP at night (12 cm H2O) (15) Transient ischemic attack (TIA): History of. Continue aspirin, Plavix, statin for secondary prevention. (16) Current smoker: Long-standing. Smoking cessation counseling. Has been quit for 2 weeks. (17) DVT prophylaxis: Lovenox PT / OT evals appreciated will give a dose of IV steroid tonight, then in am, then hopefully d/c home tomorrow with prednisone updated at bedside Subjective patient again states she is feeling much better. still with chest tightness and KLINE at peak exertion. staff have continued to note tachycardia with minimal exertion and then a prolonged recovery time of the fast heart rate once she rests. cough is becoming productive. she is using incentive and flutter valve. Review of Systems Constitutional: no fever Respiratory: + cough, + dyspnea, + dyspnea on exertion and + wheezing; no hemoptysis and no pain on inspiration Cardiovascular: no chest pain, no orthopnea and no paroxysmal nocturnal dyspnea Gastrointestinal: no abdominal pain and no constipation Physical Exam Constitutional: + morbidly obese; no acute distress and not ill appearing ENMT: external ear and nose normal, oropharynx normal Respiratory: no respiratory distress and no labored breathing Auscultation: + wheezes (mild b/l); no rales Cardiovascular: Rate/Rhythm: regular rhythm and + tachycardic Heart Sounds: normal S1 and normal S2; no murmur Vessels: normal peripheral pulses; no JVD Extremities: no edema Gastrointestinal (Abdomen): normal bowel sounds, soft, nontender, no hepatosplenomegaly Musculoskeletal: tender over lower c-spine to palpation but only mild tenderness; left knee w/ mild joint effusion Neurologic: no focal motor deficits Psychiatric: A+Ox3, euthymic affect Results & Data Vital Signs (Past 12 Hours) Vital Signs Temp Pulse Pulse Pulse Resp BP Pulse Ox 02/10/19 14:53 107 H 02/10/19 13:58 104 H 18 99 02/10/19 11:25 36.6 C 96 H 18 149/89 H 92 02/10/19 07:57 36.5 C 96 H 20 170/101 H 94 02/10/19 07:13 88 02/10/19 06:57 93 H 18 99 02/10/19 06:55 93 H 18 99 02/10/19 04:50 35.9 C L 91 H 18 167/92 H 96 02/10/19 04:22 36.5 C 101 H 18 174/94 H 96 (1) Asthma Asthma severity: moderate Asthma persistence: persistent Asthma complication type: with acute exacerbation Qualified Code(s): J45.41 - Moderate persistent asthma with (acute) exacerbation (2) Left knee pain Chronicity: acute Qualified Code(s): M25.562 - Pain in left knee (3) Diabetes mellitus, type 2 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: with laborer marine terminal use Diabetes mellitus complication status: with hyperglycemia Qualified Code(s): E11.65 - Type 2 diabetes mellitus with hyperglycemia; Z79.4 - skilled nursing (current) use of insulin (4) Hypertension Hypertension type: essential hypertension Qualified Code(s): I10 - Essential (primary) hypertension (5) Hyperlipidemia Hyperlipidemia type: unspecified Qualified Code(s): E78.5 - Hyperlipidemia, unspecified (6) Migraine Migraine type: unspecified Status migrainosus presence: without status migrainosus Intractability: not intractable Qualified Code(s): G43.909 - Migraine, unspecified, not intractable, without status migrainosus (7) Depression Depression Type: unspecified Qualified Code(s): F32.9 - Major depressive disorder, single episode, unspecified (8) GERD (gastroesophageal reflux disease) Esophagitis presence: esophagitis presence not specified Qualified Code(s): K21.9 - Gastro-esophageal reflux disease without esophagitis (9) CAD (coronary artery disease) Coronary Disease-Associated Artery/Lesion type: [place] artery [place] vs. transplanted heart: [place] heart Associated angina: without angina Qualified Code(s): I25.10 - Atherosclerotic heart disease of [place] coronary artery without angina pectoris (10) Transient ischemic attack (TIA) Transient cerebral ischemia type: unspecified Qualified Code(s): G45.9 - Transient cerebral ischemic attack, unspecified
[2019-02-10] MEDS: methylPREDNISolone 40 MG in SYRINGE 0 ML IV SCH (19:52)
[2019-02-10] MEDS: ENOXAPARIN INJ 40 MG/0.4 ML SYR SQ SCH (21:07)
[2019-02-10] MEDS: ATORVASTATIN 40 MG TAB PO SCH (21:07)
[2019-02-10] MEDS: MONTELUKAST SODIUM 10 MG TABLET PO SCH (21:08)
[2019-02-11] MEDS: LEVALBUTEROL 1.25MG/0.5ML NEB INH SCH ×3 (01:43→14:04)
[2019-02-11] MEDS: IPRATROPIUM BROMIDE NEB SOLN 0.02% 2.5 ML VIAL INH SCH ×3 (01:43→14:04)
[2019-02-11] MEDS: OXYCODONE HCL IR 5 MG TAB (IMMEDIATE RELEASE) PO PRN ×2 (04:45→11:08)
[2019-02-11] MEDS: methylPREDNISolone 40 MG in SYRINGE 0 ML IV SCH (08:22)
[2019-02-11] MEDS: INSULIN ASPART 100 UNITS/ML 3 ML PEN SC SCH ×2 (08:22→12:38)
[2019-02-11] MEDS: FLUTICASONE/SALMETEROL 250/50 (ADVAIR) 14 PUFF/1 INHALER INH SCH (08:22)
[2019-02-11] MEDS: LISINOPRIL 20 MG TAB PO SCH (08:23)
[2019-02-11] MEDS: BuPROPion SR 150 MG TABCR PO SCH (08:23)
[2019-02-11] MEDS: LIDOCAINE 5% 1 PATCH TD SCH (08:23)
[2019-02-11] MEDS: guaiFENesin 600 MG TABCR PO SCH (08:23)
[2019-02-11] MEDS: DOCUSATE SODIUM 100 MG CAP PO SCH (08:23)
[2019-02-11] MEDS: VERAPAMIL HCL 40 MG TAB PO SCH (08:23)
[2019-02-11] MEDS: CLOPIDOGREL BISULFATE 75 MG TAB PO SCH (08:24)
[2019-02-11] MEDS: PANTOprazole 40 MG TAB PO SCH (08:24)
[2019-02-11] MEDS: ASPIRIN 81 MG ECTAB PO SCH (08:24)
[2019-02-11] MEDS: ISOSORBIDE MONO EXTENDED REL 60 MG TABCR PO SCH (08:24)
[2019-02-11] MEDS: TIOTROPIUM BROMIDE 5 PUFF/90 MCG INH INH SCH (08:25)
[2019-02-11] MEDS: INSULIN GLARGINE SOLOSTAR 100 UNITS/ML 3 ML PEN SC SCH (08:25)
[2019-02-11] MEDS ORDERED: METFORMIN HCL ER 500 MG TABCR PO SCH (17:00)
[2019-02-13] MEDS ORDERED: ERGOCALCIFEROL 50,000 UNITS CAP PO SCH (09:00)
--- NOTE | 2019-02-21 21:12 | Discharge Summary ---
Date of Service date of admission - February 07, 2019 date of discharge - February 11, 2019 Admission HPI Per Admitting Provider This patient is a 53-year-old female with a history of asthma, current smoker, HTN, HL, TIA, DM 2, CHF, SMITA on CPAP, obesity, GERD, chronic back pain, depression and PTSD, migraines and OA who presents to the ER with several days of progressively worsening shortness of breath and wheezing. She was seen in the ER for a fall onto her left knee 4 days ago and at that time was noted to have a mild cough and shortness of breath. She was treated with steroids x1 dose in the ER and sent home. She reports her symptoms have worsened since then. She also reports that she quit smoking 2 days ago. She has pain in the chest only with coughing and pain in her abdomen from coughing. Her cough is mildly productive but she cannot get the sputum out. No fevers at home. She has been using her nebulizers at home without relief. She came in by EMS and received oxygen by facemask and a nebulizer treatment on the way here for severe respiratory distress. Her pulse ox here after that treatment was 93% on room air, but she was severely tachypneic and audibly wheezing with evidence of acute respiratory distress. She was treated with IV Solu-Medrol and nebulizer treatment in the ER. She was afebrile and her laboratory values were otherwise fairly unremarkable except for a WBC count of 11.1 and a potassium of 3.4. Her ECG was with normal sinus rhythm and LVH by voltage criteria. Her chest x-ray showed some atelectasis at the left base but no pneumonia. Her VBG was 7.47/31 Principal Diagnosis asthma/COPD with exacerbation Discharge Exam Constitutional + morbidly obese; no acute distress and not ill appearing ENMT external ear and nose normal, oropharynx normal Respiratory no respiratory distress and no labored breathing Auscultation: + wheezes (mild b/l); no rales Cardiovascular Rate/Rhythm: regular rhythm and + tachycardic Heart Sounds: normal S1 and normal S2; no murmur Vessels: normal peripheral pulses; no JVD Extremities: no edema Gastrointestinal (Abdomen) normal bowel sounds, soft, nontender, no hepatosplenomegaly Musculoskeletal left knee - minimal effusion, sutures clean/dry/intact; no erythema or warmth Neurologic no focal motor deficits Psychiatric A+Ox3, euthymic affect Discharge Data Allergies Allergy/AdvReac Type Severity Reaction Status Date / Time No Known Allergies Allergy Verified 02/07/19 13:34 Consultations 1. Orthopedic surgery - Juanito Grande M.D.; Alex Almeida PA 2. PT, OT Ordered Studies 1. CT cervical spine - no fractures. 2. CT head - no fracture, no ICH. 3. CT thoracic spine - no fractures. 4. chest x-rays Hospital Course (1) Acute respiratory failure with hypoxia: 2nd to severe asthma exacerbation. Resolved. O2 weaned off. Asthma exacerbation treated with IV steroids. (2) Asthma: With acute exacerbation. Treated with IV steroids, nebs, inhalers, mucolytics, etc. Patient also treated with antibiotics as she likely has a COPD component to her chronic lung disease due to long-standing smoking. All pulmonary symptoms improved with the above. She will complete a steroid taper after discharge, will complete a few more days of antibiotics, and was encouraged to remain smoke-free. Chest x-rays did not demonstrate any pneumonia while hospitalized. (3) Left knee pain: s/p arthroscopic surgery 01/28/[address] Starks. Had a fall on 02/03/2019 onto the left knee. Knee x-rays on 02/03/2019 were negative for fracture. Orthopedics was consulted and left knee contusion was suspected. Ice and NSAIDs were recommended along with brace. She can weight-bear as tolerated on the left leg/knee. (4) Diabetes mellitus, type 2: She required higher amounts of insulin while hospitalized due to steroid use. At discharge she will resume her normal DM medication regimen. (5) Neck pain: The patient had neck pain in the setting of trauma from a fall at home prior to admission. Head CT, CT of c-spine, and CT of t-spine were all negative for fractures. Pain improved with lidoderm patches, heat, etc. (6) Hypertension: Labile/high likely due to steroids, pain, etc while here. Lisinopril was increased to 20mg/day. Other home medications were continued. (7) Hyperlipidemia: atorvastatin (8) Migraine: Continue verapamil 80 mg p.o. TID for prophylaxis. diclofenac 50 mg as needed for headache. (9) Anxiety: Continue bupropion. (10) Depression: Continue bupropion. This should help with smoking cessation as well. (11) GERD (gastroesophageal reflux disease): Protonix 40 mg daily and ranitidine 150 mg p.o. nightly. (12) Morbid obesity: BMI is 40.9. (13) CAD (coronary artery disease): With a history of stents. No ischemic changes on ECG or ischemic symptoms while hospitalized. Continue aspirin, Plavix, statin, isosorbide, lisinopril. Uncertain why she is not on beta irene. (14) Obstructive sleep apnea on CPAP: Cont CPAP at night (12 cm H2O). (15) Transient ischemic attack (TIA): History of. Continue aspirin, Plavix, statin for secondary prevention. (16) Current smoker: Long-standing. Smoking cessation counseling provided. Total Time Total Time Spent Total Time Spent (In Minutes): 45 Total Time Includes: Examination of the Patient, Discharge Planning and Medication Reconciliation Discharge Plan Discharge Items Patient Disposition: Home - Home Health Services Reason For Visit: ASTHMA EXACERBATION Discharge Diagnosis: asthma/COPD exacerbation ("flare up") - improved Discharge Goals: Diagnostic testing and Therapeutic intervention Activity: As commented below Activity Comment: please follow any instructions previously given to you by orthopedics Non-emergency contact: Primary Care Provider Call non-emergency contact if: you have any medication questions and your temperature is above 100.5 Follow-up/Referrals: Nita Torres MD [Primary Care Provider] - 02/15/19 10:00 am (Please, follow up with Dr. Torres on MondayFebruary 15 at 10:00 am. *If you need to change this appointment, call the office at [phone].) Diet: Carb Consistent or DM2 Addtl Provider Instructions: From [facility] Hospitalist - You were treated for asthma/COPD exacerbation with IV steroids, antibiotics, neb treatments, etc. You gradually improved with the above and oxygen was weaned off. Your chest x-rays did not show pneumonia. In addition your neck/upper back hurt from a recent fall - your pain improved with lidoderm patches. Orthopedics saw you for your left knee and they have recommended ongoing use of ice (frequently), weight bearing as tolerated, and use of diclofenac as needed for swelling/pain. At this time please - 1. complete a course of prednisone - start this TOMORROW 02/12/19. Know that the prednisone will make your sugars go up. 2. complete a course of doxycycline antibiotic. Start this TODAY. Know that doxycycline can cause heartburn. It can also cause rash if you go out in the sun while taking it. Cover up in the sun 3. INCREASE your lisinopril to 20mg each day. Start this TOMORROW. New prescription called in. 4. May use lidoderm patches to your neck/back for pain. 5. SCHEDULE your albuterol nebulizer 4 times a day for the next 3-4 days, then use as needed thereafter. 6. Follow-up - * see orthopedics for your left knee as scheduled * see your family doctor as scheduled 7. Return to [facility] [address] if --- * you have fevers over 100.5 degrees * you have worsening shortness of breath or chest pain * you have worsening left knee pain * any other concerns Congratulations on quitting smoking ! -Dr Hall Prescriptions: New prednisone 10 mg tablet 10 mg PO DIRECTED Qty: 27 RF: 0 lisinopril 20 mg tablet 20 mg PO DAILY Qty: 30 RF: 2 lidocaine [Lidoderm] 5 % adhesive patch,medicated 2 patch TOP DAILY Qty: 30 RF: 0 Continued albuterol sulfate 90 mcg/actuation Hfa Aerosol Inhaler 2 puff INHALATION Q4 PRN (Reason: Shortness Of Breath Or Wheezing) Qty: 0 RF: 0 isosorbide mononitrate 60 mg Tablet Extended Release 24 Hr 60 mg PO QAM Qty: 0 RF: 0 nitroglycerin [Nitrostat] 0.4 mg Tablet, Sublingual 0.4 mg Sublingual DIRECTED PRN (Reason: Chest Pain) Qty: 0 RF: 0 ranitidine HCl 150 mg Tablet 150 mg PO HS Qty: 0 RF: 0 aspirin [Aspirin Low Dose] 81 mg Tablet,Delayed Release (Dr/Ec) 81 mg PO QAM Qty: 0 RF: 0 atorvastatin 80 mg Tablet 80 mg PO HS Qty: 0 RF: 0 clopidogrel [Plavix] 75 mg Tablet 75 mg PO QAM Qty: 0 RF: 0 pantoprazole 40 mg Tablet,Delayed Release (Dr/Ec) 40 mg PO QAM Qty: 0 RF: 0 diclofenac sodium [Voltaren] 1 % Gel 2 g TOPICAL QID PRN (Reason: Pain) Qty: 0 RF: 0 bupropion HCl 150 mg Tablet Sustained-Release 12 Hr 150 mg PO BID RF: 0 prochlorperazine maleate 10 mg Tablet 10 mg PO Q6 PRN (Reason: Nausea) RF: 0 Proctofoam HC 1-1 % Foam 1 applic FL DIRECTED PRN (Reason: Pain) RF: 0 diclofenac potassium 50 mg Tablet 50 mg PO Q8 PRN (Reason: Pain) RF: 0 docusate sodium [Colace] 100 mg Capsule 100 mg PO BID RF: 0 gabapentin 300 mg Capsule 300 mg PO BID RF: 0 montelukast [Singulair] 10 mg Tablet 10 mg PO HS RF: 0 ergocalciferol (vitamin D2) [Vitamin D2] 50,000 unit Capsule 50,000 unit PO WK RF: 0 verapamil 80 mg Tablet 80 mg PO TID RF: 0 Dulera 200-5 mcg/actuation Hfa Aerosol Inhaler 2 puff INHALATION BID RF: 0 Spiriva Respimat 1.25 mcg/actuation Mist 2 puff INHALATION DAILY RF: 0 metformin 750 mg tablet extended release 24 hr 1,500 mg PO DAILY RF: 0 oxycodone 5 mg tablet 5 mg PO Q6H PRN (Reason: pain) Qty: 12 RF: 0 Novolin N NPH U-100 Insulin 100 unit/mL Suspension 10 - 30 unit SUBCUT BIDM RF: 0 Stand-Alone Forms: [facility] Discharge Orders: Discharge Order (Routine); Ordered 02/11/19 Ordered By: [facility] Admission Data Admit Date/Time: 02/07/19 16:25 Attending Provider: [facility] Admit Provider: Annemarie Oakes Primary Care Provider: Nita Torres Other Providers: Juanito Grande Service: Telemetry Medical Other Interventions: Discharge Summary Assessment (RN) Last Done: 02/11/19 14:18 DC Date/Time DO NOT enter until pt leaves facility: 02/11/19 14:42
== END 2019-02-11 14:42 | disposition home health service (06) | DRG 190 ==
LOC: ED 12:21 → 2N 16:25 → SUATTDRO 16:25 → 2N 17:21
DX: K21.9 Gastro-esophageal reflux disease without esophagitis; Z68.41 Body mass index [BMI] 40.0-44.9, adult; Z79.4 Long term (current) use of insulin; S80.02XA Contusion of left knee, initial encounter; G43.909 Migraine, unspecified, not intractable, without status migrainosus; E78.5 Hyperlipidemia, unspecified; T38.0X5A Adverse effect of glucocorticoids and synthetic analogues, initial encounter; F41.9 Anxiety disorder, unspecified; M54.2 Cervicalgia; J96.01 Acute respiratory failure with hypoxia; I11.0 Hypertensive heart disease with heart failure; Z79.82 Long term (current) use of aspirin; Z83.3 Family history of diabetes mellitus; F32.9 Major depressive disorder, single episode, unspecified; Z79.02 Long term (current) use of antithrombotics/antiplatelets; G47.33 Obstructive sleep apnea (adult) (pediatric); I25.10 Atherosclerotic heart disease of native coronary artery without angina pectoris; F17.210 Nicotine dependence, cigarettes, uncomplicated; G89.29 Other chronic pain; I50.32 Chronic diastolic (congestive) heart failure; Z98.890 Other specified postprocedural states; Y99.8 Other external cause status; Z51.81 Encounter for therapeutic drug level monitoring; Y92.009 Unspecified place in unspecified non-institutional (private) residence as the place of occurrence of the external cause; E11.65 Type 2 diabetes mellitus with hyperglycemia; E87.6 Hypokalemia; W19.XXXA Unspecified fall, initial encounter; E66.01 Morbid (severe) obesity due to excess calories; Z82.49 Family history of ischemic heart disease and other diseases of the circulatory system; Z86.73 Personal history of transient ischemic attack (TIA), and cerebral infarction without residual deficits; Z79.899 Other long term (current) drug therapy; J44.1 Chronic obstructive pulmonary disease with (acute) exacerbation; Z95.5 Presence of coronary angioplasty implant and graft

== ENCOUNTER 2019-09-04 15:22 | Observation (INO) ==
[2019-09-04] MEDS ORDERED: ONDANSETRON INJ 2 MG/ML 2 ML VIAL IV STA (16:07)
[2019-09-04] MEDS ORDERED: NITROGLYCERIN 2% OINTMENT 30GM TUBE EXT STA (16:07)
[2019-09-04] MEDS ORDERED: fentaNYL citrate 100 MCG/2 ML VIAL IV STA ×2 (16:07→18:59)
[2019-09-04 16:22] LABS: Basophils # (auto) 0.01 K/uL (0-0.2); Basophils % (auto) 0.1 %; Eosinophils # (auto) 0.13 K/uL (0-0.5); Eosinophils % (auto) 1.5 %; Hematocrit (blood only) 42.9 % (37-47); Hemoglobin 13.7 g/dL (12.0-16.0); Immature Granulocytes # (auto) 0.01 K/uL (0.00-0.02); Immature Granulocytes % (auto) 0.1 %; Lymphocytes # (auto) 3.43 K/uL (1.2-3.4); Lymphocytes % (auto) 39.7 %; Mean Corpuscular Hemoglobin 30.4 pg (25-34); Mean Corpuscular Hgb Conc 31.9 g/dL (32-36); Mean Corpuscular Volume 95.1 fL (80-100); Mean Platelet Volume 11.8 fL (7.4-10.4); Monocytes # (auto) 0.45 K/uL (0.11-0.59); Monocytes % (auto) 5.2 %; Neutrophils # (auto) 4.62 K/uL (1.4-6.5); Neutrophils % (auto) 53.4 %; Platelet Count 254 K/uL (130-400); RDW Coefficient of Variation 14.6 % (11.5-14.5); RDW Standard Deviation 50.9 fL (36.4-46.3); Red Blood Count 4.51 M/uL (4.2-5.4); White Blood Count 8.65 K/uL (4.8-10.8)
[2019-09-04 16:28] LABS: Albumin Level 3.3 gm/dl (3.4-5.0); BUN Creatinine Ratio 16.5 (10-20); Calcium 9.2 mg/dl (8.5-10.1); Creatinine Clr Calc Pharmacy 82.1 ml/min; Est GFR (African American) 73.1; Est GFR (Non-African American) 63.1; Potassium 3.9 mmol/L (3.5-5.1)
[2019-09-04 16:31] LABS: Albumin Globulin Ratio 0.9 (0.9-2); Bilirubin,Total 0.2 mg/dl (0.2-1); Globulin 3.8 gm/dl (2.5-4.0); Total Protein 7.1 gm/dl (6.4-8.2)
[2019-09-04 16:32] LABS: Partial Thromboplastin Ratio 0.9; Partial Thromboplastin Time 23.1 Seconds (21.0-31.0); Prothrombin Time 10.3 Seconds (9.0-12.0)
--- NOTE | 2019-09-04 16:50 | XRay Report ---
XR chest 2V PA/lateral HISTORY: 53 years-old Female Chest Pain acute atypical chest pain with cough COMPARISON: Chest radiograph 02/08/2019 TECHNIQUE: PA and lateral views of the chest FINDINGS: Cardiomediastinal and hilar silhouettes are within normal limits. No pneumothorax, pleural effusion, focal airspace consolidation or overt pulmonary edema. Degenerative changes of the shoulders and spin e. IMPRESSION: No acute process. The above report was generated using voice recognition software. It may contain grammatical, syntax o r spelling errors. Electronically signed by: Aroldo Cruz M.D. 09/04/2019 4:49 PM
--- NOTE | 2019-09-04 20:08 | Emergency Department Note ---
Entered by Corin Gamboa acting as a scribe for Ramo Link MD History of Present Illness General Chief complaint: Chest Pain Stated complaint: CHEST PAIN Time Seen by Provider: 09/04/19 16:00 Source: patient History of Present Illness Provider complaint: Chest Pain Onset (ago): day(s) 2 Location: chest (Left sided) Radiation: back, neck and extremity (Shoulder (left)) Pain Consistency: + intermittent Maximum Pain Intensity: 8 Quality: + aching and + sharp Exacerbated By: + movement Associated symptoms: + diaphoresis; no cough, no nausea/vomiting and no shortne ss of breath The patient is a 53 year old female who presents to the Emergency Room with complaints of sharp/achy intermittent left sided chest pain that began 2 days ago and worsened today. The patient states that the pain radiates into her left shoulder, neck and trapezius area and is exacerbated by movement, especially when she coughs. The patient reports experiencing diaphoresis while in the ambulance but denies any shortness of breath. The patient also denies experiencing any cough or nausea/vomiting. The patient mentioned that she has a history of CAD and CHF and that this chest pain feels similar to previous episodes of chest pain. The patient also notes that she took nitro at home but it did not help with the pain. She does state that the ambulance gave her nit roglycerin that seemed to help a little bit. She was also given an aspirin. She states that she has never had an TX but she had an abnormal stress test when she had chest pain. She then had a catheterization which showed CAD without any intervention indicated. Home Medications Home Medications Medication Instructions Recorded Confirmed Type isosorbide mononitrate 60 mg PO QAM #0 12/14/16 09/04/19 History nitroglycerin [Nitrostat] 0.4 mg SUBLINGUAL DIRECTED PRN 12/14/16 09/04/19 History #0 btl ranitidine HCl 150 mg PO HS #0 12/14/16 09/04/19 History clopidogrel [Plavix] 75 mg PO QAM #0 05/25/18 09/04/19 History diclofenac sodium [Voltaren] 2 g TOPICAL QID PRN #0 05/25/18 09/04/19 History pantoprazole 40 mg PO QAM #0 05/25/18 09/04/19 History Novolin N NPH U-100 Insulin 10 - 30 unit SUBCUT BIDM 06/28/18 09/04/19 History Dulera 2 puff INHALATION BID 12/04/18 09/04/19 History docusate sodium [Colace] 100 mg PO BID 12/04/18 09/04/19 History verapamil 80 mg PO TID 12/04/18 09/04/19 History lisinopril 20 mg PO DAILY #30 tab 02/11/19 09/04/19 Rx prochlorperazine maleate 10 mg 10 mg PO Q6 PRN 30 Days #20 tab 03/28/19 09/04/19 Rx tablet aspirin 81 mg tablet,delayed 81 mg PO DAILY #0 tab 07/09/19 09/04/19 History release atorvastatin 80 mg tablet 80 mg PO DAILY 07/09/19 09/04/19 History blood sugar diagnostic #10 ea 07/09/19 07/12/19 History diclofenac potassium 50 mg tablet 50 mg PO Q8H PRN tab 07/09/19 09/04/19 History hydrocortisone 1 %-pramoxine 1 % 1 appln HI QID PRN 07/09/19 09/04/19 History rectal foam insulin syringe-needle U-100 0.5 #1 ea 07/09/19 07/12/19 History mL 30 gauge x 1/2" ipratropium-albuterol 0.5 mg-3 3 ml INH Q6H PRN ml 07/09/19 09/04/19 History mg(2.5 mg base)/3 mL nebulization soln lancets 33 gauge #100 ea 07/09/19 07/12/19 History metformin 500 mg tablet,extended 500 mg PO QAM 07/09/19 09/04/19 History release 24hr montelukast 10 mg tablet 10 mg PO QPM 07/09/19 09/04/19 History metformin 1,000 mg PO QPM 09/04/19 09/04/19 History Allergies Allergy/AdvReac Type Severity Reaction Status Date / Time No Known Allergies Allergy Verified 09/04/19 16:42 Past Med/Surg History Medical History Acid reflux (Acute) Angina pectoris (Acute) Anxiety Arthritis of knee (Acute) Asthma Atrial tachycardia [facility] CAD (coronary artery disease) CHF (congestive heart failure) CHF (congestive heart failure) (Acute) Chronic back pain Chronic obstructive pulmonary disease Degeneration of cervical intervertebral disc (Acute) Degenerative disc disease Depression Depression (Acute) Diabetes mellitus (Acute) Diabetes mellitus, type 2 (Chronic) IDDM External hemorrhoids (Acute) Facial fracture (2015) WITH RECONSTRUCTION Fracture tibia/fibula LEFT WITH ORIF Frequent falls (Acute) GERD (gastroesophageal reflux disease) Hemiplegic migraine (Acute) History of recent steroid use FINISHED (MEDROL DOSEPAK) MAY 2018 --> ASTHMA FLARE UP Hyperlipidemia Hyperlipidemia (Acute) Hypertension Hypertension (Acute) Leaky heart valve Migraine Morbid obesity Obstructive sleep apnea on CPAP Osteoarthritis Post traumatic stress disorder Severe sleep apnea (Acute) Transient ischemic attack (TIA) PLAVIX. FOLLOWS WITH PCP Urinary incontinence (Acute) Vitamin D deficiency (Acute) Surgical History History of bilateral tubal ligation History of cardiac cath X2 STENTS - (~2010, IN [place], [place]). NO STENTS - ([facility] @ ~2014) History of colonoscopy History of esophagogastroduodenoscopy (EGD) History of heart artery stent X2 STENTS (2010) UNSURE OF KIND. NO STENT CARDS PER PT. 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 and A total of 10 systems reviewed and were otherwise negative Physical Exam Vital Signs Vital Signs - 24 hr 09/04/19 15:26 09/04/19 15:28 09/04/19 15:31 Temperature 37.2 C Temperature Source Oral Pulse Rate 109 H 108 H 108 H Pulse Rate from SpO2 Sensor 109 H 108 H Respiratory Rate 16 24 20 Respiratory Effort / Characteristics Non-Labored Spontaneous Respiratory Depth Normal Blood Pressure 112/63 112/63 Blood Pressure Mean 81 79 Pulse Oximetry 96 98 98 Oxygen Delivery Method Room Air Sepsis Recent Fever Within 48 Hours No Sepsis New/Unexplained Change in Mental Status No Sepsis Action Taken by Nursing No Action Required 09/04/19 16:00 09/04/19 16:13 09/04/19 16:30 Temperature Temperature Source Pulse Rate 104 H 99 H Pulse Rate from SpO2 Sensor 103 H 98 H Respiratory Rate 20 22 Respiratory Effort / Characteristics Respiratory Depth Blood Pressure Blood Pressure Mean Pulse Oximetry 97 95 95 Oxygen Delivery Method Room Air Sepsis Recent Fever Within 48 Hours Sepsis New/Unexplained Change in Mental Status Sepsis Action Taken by Nursing 09/04/19 17:05 09/04/19 17:30 09/04/19 17:54 Temperature Temperature Source Pulse Rate 101 H 101 H 102 H Pulse Rate from SpO2 Sensor Respiratory Rate 15 22 Respiratory Effort / Characteristics Respiratory Depth Blood Pressure 121/68 Blood Pressure Mean 92 Pulse Oximetry Oxygen Delivery Method Sepsis Recent Fever Within 48 Hours Sepsis New/Unexplained Change in Mental Status Sepsis Action Taken by Nursing 09/04/19 18:00 09/04/19 18:30 09/04/19 18:31 Temperature Temperature Source Pulse Rate 101 H 103 H 104 H Pulse Rate from SpO2 Sensor Respiratory Rate Respiratory Effort / Characteristics Respiratory Depth Blood Pressure 117/67 Blood Pressure Mean 97 Pulse Oximetry Oxygen Delivery Method Sepsis Recent Fever Within 48 Hours Sepsis New/Unexplained Change in Mental Status Sepsis Action Taken by Nursing 09/04/19 19:00 09/04/19 19:01 09/04/19 19:30 Temperature Temperature Source Pulse Rate 100 H 100 H 99 H Pulse Rate from SpO2 Sensor Respiratory Rate 23 Respiratory Effort / Characteristics Respiratory Depth Blood Pressure 114/75 118/85 Blood Pressure Mean 92 92 Pulse Oximetry Oxygen Delivery Method Sepsis Recent Fever Within 48 Hours Sepsis New/Unexplained Change in Mental Status Sepsis Action Taken by Nursing 09/04/19 19:31 Temperature Temperature Source Pulse Rate 98 H Pulse Rate from SpO2 Sensor Respiratory Rate 24 Respiratory Effort / Characteristics Respiratory Depth Blood Pressure Blood Pressure Mean Pulse Oximetry Oxygen Delivery Method Sepsis Recent Fever Within 48 Hours Sepsis New/Unexplained Change in Mental Status Sepsis Action Taken by Nursing Constitutional: Vital signs reviewed. Eyes: Pupils are equal round reactive to light. Conjunctiva are noninjected. ENT: Pharynx is clear without erythema or exudate. Mucous membranes are moist. Neck supple without meningeal signs. Respiratory: Clear to auscultation bilaterally. Breath sounds are equal bilaterally. Cardiovascular: Regular rate and rhythm. No rubs or gallops. GI: Soft, nondistended and nontender. Bowel sounds are present. Musculoskeletal: No peripheral edema. No lower extremity tenderness. Integumentary: No cyanosis. Neurological: The patient is awake and alert. No focal deficits. Psychiatric: Normal affect. Course Course 1603: Past medical records reviewed. The patient was evaluated in room A11B. A complete history and physical exam was performed. 1718: I reevaluated and discussed test results with the patient. The patient says her chest pain is better and I recommended hospitalization. 1746: I spoke with Dr. Powell- Lenin about the patient's case and she will accept the patient for further evaluation. 1851: Patient is complaining of more chest pain. Administered Medications Discontinued Medications Fentanyl Citrate (Fentanyl Citrate) 50 mcg IV NOW STA Stop: 09/04/19 16:08 Last Admin: 09/04/19 16:18 Dose: 50 mcg Documented by: [id number] Fentanyl Citrate (Fentanyl Citrate) 50 mcg IV NOW STA Stop: 09/04/19 19:00 Last Admin: 09/04/19 19:01 Dose: 50 mcg Documented by: [id number] Nitroglycerin (Nitro-Bid 2%) 0.5 inch EXT NOW STA Stop: 09/04/19 16:08 Last Admin: 09/04/19 16:18 Dose: 0.5 inch Documented by: [id number] Ondansetron HCl (Zofran) 4 mg IV NOW STA Stop: 09/04/19 16:08 Last Admin: 09/04/19 16:18 Dose: 4 mg Documented by: [id number] Medical Decision Making Differential Diagnosis Differential diagnosis includes: Unstable angina, TX, Pleurisy, PE, Pneumonia, as well as others were considered. Medical Records Attestation: I reviewed the patient's medical records. I did perform a limited focused review of portions of the patient's old chart on the electronic medical record. The patient has had no recent pertinent visits to this hospital. Home Medications Current Medication List: was personally reviewed by me Laboratory Data Attestation: I reviewed the patient's lab results. Result diagrams: 09/04/19 15:34 09/04/19 15:34 Lab Results 09/04/19 09/04/19 09/04/19 Range/Units 15:34 15:34 15:34 WBC 8.65 (4.8-10.8) K/uL RBC 4.51 (4.2-5.4) M/uL Hgb 13.7 (12.0-16.0) g/dL Hct 42.9 (37-47) % MCV 95.1 (80-100) fL MCH 30.4 (25-34) pg MCHC 31.9 L (32-36) g/dL RDW Std Deviation 50.9 H (36.4-46.3) fL RDW Coeff of Majo 14.6 H (11.5-14.5) % Plt Count 254 (130-400) K/uL MPV 11.8 H (7.4-10.4) fL Immature Gran % (Auto) 0.1 % Neut % (Auto) 53.4 % Lymph % (Auto) 39.7 % [place] % (Auto) 5.2 % Eos % (Auto) 1.5 % Baso % (Auto) 0.1 % Immature Gran # (Auto) 0.01 (0.00-0.02) K/uL Neut # (Auto) 4.62 (1.4-6.5) K/uL Lymph # (Auto) 3.43 H (1.2-3.4) K/uL [place] # (Auto) 0.45 (0.11-0.59) K/uL Eos # (Auto) 0.13 (0-0.5) K/uL Baso # (Auto) 0.01 (0-0.2) K/uL PT 10.3 (9.0-12.0) Seconds INR 1.0 (0.9-1.1) APTT 23.1 (21.0-31.0) Seconds PTT Ratio 0.9 POC D-Dimer (0-450) ng/mlFEU Sodium 142 (136-145) mmol/L Potassium 3.9 (3.5-5.1) mmol/L Chloride 110 H (98-107) mmol/L Carbon Dioxide 25 (21-32) mmol/L Anion Gap 7.0 (3-11) BUN 17 (7-18) mg/dl Creatinine 1.01 (0.6-1.2) mg/dl Est Cr Clr Drug Dosing 82.1 ml/min Est GFR ( Amer) 73.1 Est GFR (Non-Af Amer) 63.1 BUN/Creatinine Ratio 16.5 (10-20) Glucose 183 H (70-99) mg/dl Calcium 9.2 (8.5-10.1) mg/dl Total Bilirubin 0.2 (0.2-1) mg/dl AST 12 L (15-37) U/L ALT 19 (12-78) U/L Alkaline Phosphatase 123 H (45-117) U/L POC Troponin I (0-0.045) ng/ml Total Protein 7.1 (6.4-8.2) gm/dl Albumin 3.3 L (3.4-5.0) gm/dl Globulin 3.8 (2.5-4.0) gm/dl Albumin/Globulin Ratio 0.9 (0.9-2) 11//19 Range/Units 16:11 WBC (4.8-10.8) K/uL RBC (4.2-5.4) M/uL Hgb (12.0-16.0) g/dL Hct (37-47) % MCV (80-100) fL MCH (25-34) pg MCHC (32-36) g/dL RDW Std Deviation (36.4-46.3) fL RDW Coeff of Majo (11.5-14.5) % Plt Count (130-400) K/uL MPV (7.4-10.4) fL Immature Gran % (Auto) % Neut % (Auto) % Lymph % (Auto) % [place] % (Auto) % Eos % (Auto) % Baso % (Auto) % Immature Gran # (Auto) (0.00-0.02) K/uL Neut # (Auto) (1.4-6.5) K/uL Lymph # (Auto) (1.2-3.4) K/uL [place] # (Auto) (0.11-0.59) K/uL Eos # (Auto) (0-0.5) K/uL Baso # (Auto) (0-0.2) K/uL PT (9.0-12.0) Seconds INR (0.9-1.1) APTT (21.0-31.0) Seconds PTT Ratio POC D-Dimer 388 (0-450) ng/mlFEU Sodium (136-145) mmol/L Potassium (3.5-5.1) mmol/L Chloride (98-107) mmol/L Carbon Dioxide (21-32) mmol/L Anion Gap (3-11) BUN (7-18) mg/dl Creatinine (0.6-1.2) mg/dl Est Cr Clr Drug Dosing ml/min Est GFR ( Amer) Est GFR (Non-Af Amer) BUN/Creatinine Ratio (10-20) Glucose (70-99) mg/dl Calcium (8.5-10.1) mg/dl Total Bilirubin (0.2-1) mg/dl AST (15-37) U/L ALT (12-78) U/L Alkaline Phosphatase (45-117) U/L POC Troponin I < 0.03 (0-0.045) ng/ml Total Protein (6.4-8.2) gm/dl Albumin (3.4-5.0) gm/dl Globulin (2.5-4.0) gm/dl Albumin/Globulin Ratio (0.9-2) Imaging Data Radiologist's Impression: Radiology results as stated below per my review and the radiologist's interpretation: XR chest 2V PA/lateral HISTORY: 53 years-old Female Chest Pain acute atypical chest pain with cough COMPARISON: Chest radiograph 02/08/2019 TECHNIQUE: PA and lateral views of the chest FINDINGS: Cardiomediastinal and hilar silhouettes are within normal limits. No pneumothorax, pleural effusion, focal airspace consolidation or overt pulmonary edema. Degenerative changes of the shoulders and spine. IMPRESSION: No acute process. The above report was generated using voice recognition software. It may contain grammatical, syntax or spelling errors. Electronically signed by: Aroldo Cruz M.D. 09/04/2019 4:49 PM ECG Data Attestation: I personally reviewed and interpreted this ECG as follows: Indication: + chest pain Rate (beats per minute): 107 Rhythm: + sinus tachycardia ECG ST segments: + Normal ST segments ECG Findings: + Other (Biphasic T Waves in lateral leads); no PVCs Comparison ECG Date: from (02/07/2019) Change: no significant change Additional Comments: Repeat EKG done at 1844 showed: Sinus tachycardia with a rate of 101. No ST elevation. No PVCs. No significant change from prior done today at 1526. Blood Pressure Blood Pressure Findings: Normal blood pressure Blood Pressure Disposition: further management by hospitalist QUINN Ohara I did evaluate the patient as noted above. Patient is presenting with left- sided chest pain. She has a known history of CAD. She had some mild relief with nitroglycerin prior to arrival but still has some chest discomfort. I did treat her with IV fentanyl and Zofran. She was also given nitroglycerin paste. The patient was placed on a continuous equipment monitor phototypesetting. I did order and personally review the patient's 12-lead EKG as described above. She had some nonspecific T wave changes but otherwise no ischemia. I did order and personally reviewed the images of the patient's chest x-ray as described above. There is no evidence of infiltrate or acute pathology. I did order and review the patient's blood work as noted in the electronic medical record. Troponin is negative. CBC is unremarkable. Electrolytes are unremarkable. D-dimer is negative. I did reassess the patient. I did discuss the test results with her. She stated that her chest pain was improved. She is agreeable to hospitalization. I did speak to the hospitalist and outpatient case manager. Later the patient complained of increased chest pain. A repeat twelve-lead EKG was performed which showed no acute ischemia. She was given additional fentanyl IV. Impression & Plan Acute chest pain Discharge Plan Visit Data Chief Complaint: Chest Pain Stated Complaint: CHEST PAIN ED Provider: Ramo Link Discharge Problem: Acute chest pain Forms Stand Alone Forms: Call Back Authorization, [facility] Prescriptions Prescriptions: No Action isosorbide mononitrate 60 mg Tablet Extended Release 24 Hr 60 mg PO QAM Qty: 0 RF: 0 nitroglycerin [Nitrostat] 0.4 mg Tablet, Sublingual 0.4 mg Sublingual DIRECTED PRN (Reason: Chest Pain) Qty: 0 RF: 0 ranitidine HCl 150 mg Tablet 150 mg PO HS Qty: 0 RF: 0 clopidogrel [Plavix] 75 mg Tablet 75 mg PO QAM Qty: 0 RF: 0 pantoprazole 40 mg Tablet,Delayed Release (Dr/Ec) 40 mg PO QAM Qty: 0 RF: 0 diclofenac sodium [Voltaren] 1 % Gel 2 g TOPICAL QID PRN (Reason: Pain) Qty: 0 RF: 0 prochlorperazine maleate 10 mg tablet 10 mg PO Q6 PRN (Reason: Nausea) 30 Days Qty: 20 RF: 5 aspirin [Aspirin Low Dose] 81 mg tablet,delayed release (DR/EC) 81 mg PO DAILY Qty: 0 RF: 0 atorvastatin 80 mg tablet 80 mg PO DAILY RF: 0 (DME) insulin syringe-needle U-100 [BD Insulin Syringe Ultra-Fine] 0.5 mL 30 gauge x 1/2" syringe See Dose Instructions .ROUTE .MEDSUPPLY Qty: 1 RF: 0 diclofenac potassium 50 mg tablet 50 mg PO Q8H PRN (Reason: Pain) RF: 0 ipratropium-albuterol 0.5 mg-3 mg(2.5 mg base)/3 mL solution for nebulization 3 ml INH Q6H PRN (Reason: Shortness Of Breath) RF: 0 metformin 500 mg tablet extended release 24hr 500 mg PO QAM RF: 0 montelukast 10 mg tablet 10 mg PO QPM RF: 0 (DME) lancets [OneTouch Delica Lancets] 33 gauge misc See Dose Instructions .ROUTE .MEDSUPPLY Qty: 100 RF: 0 (DME) OneTouch Ultra Blue Test Strip strip See Dose Instructions .ROUTE .MEDSUPPLY Qty: 10 RF: 0 Proctofoam HC 1-1 % foam 1 appln HI QID PRN (Reason: Hemorrhoids) RF: 0 docusate sodium [Colace] 100 mg Capsule 100 mg PO BID RF: 0 verapamil 80 mg Tablet 80 mg PO TID RF: 0 Dulera 200-5 mcg/actuation Hfa Aerosol Inhaler 2 puff INHALATION BID RF: 0 metformin 500 mg Tablet 1,000 mg PO QPM RF: 0 Novolin N NPH U-100 Insulin 100 unit/mL Suspension 10 - 30 unit SUBCUT BIDM RF: 0 lisinopril 20 mg tablet 20 mg PO DAILY Qty: 30 RF: 2 The scribe's documentation has been prepared under my direction and personally reviewed by me in its entirety. I confirm that the note above accurately reflects all work, treatment, procedures, and medical decision making performed by me.
[2019-09-04] MEDS ORDERED: fentaNYL citrate 100 MCG/2 ML VIAL ONE (21:08)
[2019-09-04] MEDS ORDERED: DEXTROSE 50% 50 ML SYRINGE IV PRN (21:32)
[2019-09-04] MEDS ORDERED: GLUCOSE 40% GEL 15 GM TUBE PO PRN (21:32)
[2019-09-04] MEDS ORDERED: MONTELUKAST SODIUM 10 MG TABLET PO SCH (21:32)
[2019-09-04] MEDS ORDERED: DICLOFENAC SOD 1% GEL 100 GM TUBE EXT PRN (21:32)
[2019-09-04] MEDS ORDERED: ALBUT/IPRATROP 3MG/0.5MG NEB 3 ML VIAL INH PRN (21:32)
[2019-09-04] MEDS ORDERED: PROCHLORPERAZINE MALEATE 10 MG TAB PO PRN (21:32)
[2019-09-04] MEDS ORDERED: INSULIN GLARGINE SOLOSTAR 100 UNITS/ML 3 ML PEN SC SCH (21:32)
[2019-09-04] MEDS ORDERED: CARBOHYDRATES FOR HYPOGLYCEMIA PO PRN (21:32)
[2019-09-04] MEDS ORDERED: GLUCOSE 10 TABS/TUBE PO PRN (21:32)
[2019-09-04] MEDS ORDERED: GLUCAGON FOR INJ 1 MG VIAL SQ PRN (21:32)
[2019-09-04] MEDS ORDERED: DICLOFENAC SODIUM 25 MG TABDR PO PRN (21:49)
[2019-09-04] MEDS: NITROGLYCERIN SL 0.4 MG/TAB TAB SL PRN ×3 (22:00→22:16)
[2019-09-04] MEDS: DOCUSATE SODIUM 100 MG CAP PO SCH (22:05)
[2019-09-04] MEDS: INSULIN ASPART 100 UNITS/ML 3 ML PEN SC SCH (22:07)
[2019-09-04] MEDS: MoRPHine SULFATE 2 MG/ML CARP IV PRN ×2 (22:19→22:55)
--- NOTE | 2019-09-04 22:44 | History & Physical Report ---
Date of Service September 04, 2019 Assessment & Plan (1) Acute chest pain: Ms. Islas is a 53-year-old female with a past medical history of CAD s/p placement of 2 stents, obstructive sleep apnea, CHF, GERD, history of TIA, type 2 diabetes mellitus, GERD, asthma and COPD, anxiety and depression, and history of migraines who presents to the emergency department due to chest pain. ED course: 50 mcg IV fentanyl x2, 4 mg IV Zofran, 0.5 inch nitroglycerin paste Chest pain -admit to telemetry -pt has a history of known CAD w/multiple risk factors -Patient has been seen several times in the past for noncardiac chest pain. She underwent a cardiac cath in 2011 for the placement of 2 stents. This was done for a positive stress test. She had a cath performed again in 03/2015 which was negative, and showed patent stents. She had a dobutamine stress echo done in 11/08 which was negative, and again in 12/11 which was also negative. -EKG with no evidence of acute ischemia. Troponin x 1 negative -Low suspicion that this is cardiac in nature, but will monitor and trend trop q6h x2 given significant risk factors -Nitro and morphine ordered as needed for chest pain CAD s/p placement of 2 stents -Continue ASA, plavix, atorvastatin, lisinopril -pt not on a beta irene -Continue Imdur Hx of TIA -continue secondary preventative medications as above Diabetes Mellitus type 2 -HgbA1c = 7.7 on 02/08/19 -hold home metformin -Lantus 10 units BID -BSG AC/HS and ISS Hypertension: -Blood pressure stable at present -Continue medications as above Asthma/COPD -Patient with scattered wheezing on exam -continue home inhalers and nebs -Continue montelukast GERD -Continue Protonix and Ranitidine SMITA -CPAP ordered qhs Migraines -continue verapamil for migraine prevention Code: Full DVT prophylaxis: SCDs Disposition: admit to telemetry (2) Acid reflux: (3) CHF (congestive heart failure): (4) Diabetes mellitus: (5) Severe sleep apnea: (6) Asthma: (7) Chronic obstructive pulmonary disease: (8) Hypertension: (9) Hyperlipidemia: (10) Transient ischemic attack (TIA): (11) History of cardiac cath: (12) Anxiety: (13) Depression: History of Present Illness Chief Complaint: Chest Pain Primary Care Provider: Nita Torres MD Ms. Islas is a 53-year-old female with a past medical history of CAD s/p placement of 2 stents, obstructive sleep apnea, CHF, GERD, history of TIA, type 2 diabetes mellitus, GERD, asthma and COPD, anxiety and depression, and history of migraines who presents to the emergency department due to chest pain. The patient states that her chest pain began 3 days ago, and worsened suddenly today while she was shopping at [email or web address]. The patient states that she normally ambulates with a power chair, however decided to leave it at home today. The patient states that her chest pain was over the left side of her chest, and radiated to the left side of her shoulder and back. This was not relieved with nitroglycerin. She denies associated shortness of breath, diaphoresis, nausea, or vomiting. She states that she has had a cold over the past couple of days, and has a nonproductive cough. She states that her chest pain is worse after she coughs. She reports a long-standing history of chest pain, and states that she cannot walk more than 5 feet without having chest pain. She states that her chest pain is never relieved by rest. She reports that she had 2 stents placed in 2004. She did not have an AK at this time, but rather a positive stress test, and then underwent a cath. She reports that she had another cath in 2014, which was normal. Of note, she has a significant past smoking history. She smoked 1 pack/day for 40 years, and quit on February 11, 2019. Allergies Allergy/AdvReac Type Severity Reaction Status Date / Time No Known Allergies Allergy Verified 09/04/19 16:42 Home Medications Home Medications Medication Instructions Recorded Confirmed Type isosorbide mononitrate 60 mg PO QAM #0 12/14/16 09/04/19 History nitroglycerin [Nitrostat] 0.4 mg SUBLINGUAL DIRECTED PRN 12/14/16 09/04/19 History #0 btl ranitidine HCl 150 mg PO HS #0 12/14/16 09/04/19 History clopidogrel [Plavix] 75 mg PO QAM #0 05/25/18 09/04/19 History diclofenac sodium [Voltaren] 2 g TOPICAL QID PRN #0 05/25/18 09/04/19 History pantoprazole 40 mg PO QAM #0 05/25/18 09/04/19 History Novolin N NPH U-100 Insulin 10 - 30 unit SUBCUT BIDM 06/28/18 09/04/19 History Dulera 2 puff INHALATION BID 12/04/18 09/04/19 History docusate sodium [Colace] 100 mg PO BID 12/04/18 09/04/19 History verapamil 80 mg PO TID 12/04/18 09/04/19 History lisinopril 20 mg PO DAILY #30 tab 02/11/19 09/04/19 Rx prochlorperazine maleate 10 mg 10 mg PO Q6 PRN 30 Days #20 tab 03/28/19 09/04/19 Rx tablet aspirin 81 mg tablet,delayed 81 mg PO DAILY #0 tab 07/09/19 09/04/19 History release atorvastatin 80 mg tablet 80 mg PO DAILY 07/09/19 09/04/19 History blood sugar diagnostic #10 ea 07/09/19 07/12/19 History diclofenac potassium 50 mg tablet 50 mg PO Q8H PRN tab 07/09/19 09/04/19 History hydrocortisone 1 %-pramoxine 1 % 1 appln [place] QID PRN 07/09/19 09/04/19 History rectal foam insulin syringe-needle U-100 0.5 #1 ea 07/09/19 07/12/19 History mL 30 gauge x 1/2" ipratropium-albuterol 0.5 mg-3 3 ml INH Q6H PRN ml 07/09/19 09/04/19 History mg(2.5 mg base)/3 mL nebulization soln lancets 33 gauge #100 ea 07/09/19 07/12/19 History metformin 500 mg tablet,extended 500 mg PO QAM 07/09/19 09/04/19 History release 24hr montelukast 10 mg tablet 10 mg PO QPM 07/09/19 09/04/19 History metformin 1,000 mg PO QPM 09/04/19 09/04/19 History tramadol 50 mg PO Q8H PRN #14 tab 09/05/19 Rx Past Med/Surg History Medical History Acid reflux (Acute) Angina pectoris (Acute) Anxiety Arthritis of knee (Acute) Asthma Atrial tachycardia [facility] CAD (coronary artery disease) CHF (congestive heart failure) CHF (congestive heart failure) (Acute) Chronic back pain Chronic obstructive pulmonary disease Degeneration of cervical intervertebral disc (Acute) Degenerative disc disease Depression Depression (Acute) Diabetes mellitus (Acute) Diabetes mellitus, type 2 (Chronic) IDDM External hemorrhoids (Acute) Facial fracture (2014) WITH RECONSTRUCTION Fracture tibia/fibula LEFT WITH ORIF Frequent falls (Acute) GERD (gastroesophageal reflux disease) Hemiplegic migraine (Acute) History of recent steroid use FINISHED (MEDROL DOSEPAK) MAY 2018 --> ASTHMA FLARE UP Hyperlipidemia Hyperlipidemia (Acute) Hypertension Hypertension (Acute) Leaky heart valve Migraine Morbid obesity Obstructive sleep apnea on CPAP Osteoarthritis Post traumatic stress disorder Severe sleep apnea (Acute) Transient ischemic attack (TIA) PLAVIX. FOLLOWS WITH PCP Urinary incontinence (Acute) Vitamin D deficiency (Acute) Surgical History History of bilateral tubal ligation History of cardiac cath X2 STENTS - (~2010, IN [place], [place]). NO STENTS - ([facility] @ ~2014) History of colonoscopy History of esophagogastroduodenoscopy (EGD) History of heart artery stent X2 STENTS (2010) UNSURE OF KIND. NO STENT CARDS PER PT. 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 Beliefs That Will Affect Care: None marital status: Single Current Living Situation: Spouse Feels Safe at Home: Yes Smoking Status: Never smoker Tobacco Type: cigarettes ; Cigarettes Per Day: 20 ; Second Hand Exposure: Yes ; Hx Alcohol Use: No Hx Substance Use: No Review of Systems Constitutional: no fever and no chills Ear, Nose, Mouth, Throat: no nasal congestion and no sore throat Respiratory: + cough and + wheezing; no dyspnea and no sputum production Cardiovascular: no chest pain, no radiating jaw, neck or arm pain, no palpitations, no syncope, no edema and no calf pain Gastrointestinal: no abdominal pain, no nausea, no vomiting and no change in bowel habits Genitourinary: no dysuria, no difficulty urinating and no urinary frequency Physical Exam Constitutional: WD/WN, vitals as above + well hydrated and + morbidly obese; no acute distress Eyes: PERRL, conjunctivae normal, anicteric sclerae ENMT: external ear and nose normal, oropharynx normal Respiratory: normal respiratory effort Auscultation: + wheezes (Scattered wheezing noted) Cardiovascular: RRR, no murmur, no edema Vessels: posterior tibial pulses present and dorsalis pedis pulses present Extremities: normal capillary refill; no calf tenderness and no pedal edema Gastrointestinal (Abdomen): Inspection/Auscultation: + abdomen distended Percussion/Palpation: abdomen soft; abdomen nontender, no guarding and abdomen not rigid Musculoskeletal: no cyanosis or clubbing, extremities motor strength 5/5 Skin: no rashes, warm and dry Results & Data Vital Signs (Past 12 Hours) Vital Signs Temp Pulse Resp BP BP Pulse Ox 09/04/19 22:15 118/74 09/04/19 22:00 112/72 09/04/19 21:23 36.7 C 18 115/74 94 09/04/19 20:31 102 H 18 09/04/19 20:30 102 H 114/78 09/04/19 20:01 99 H 09/04/19 20:00 103 H 18 130/79 09/04/19 19:31 98 H 24 09/04/19 19:30 99 H 118/85 09/04/19 19:01 100 H 23 09/04/19 19:00 100 H 114/75 09/04/19 18:31 104 H 09/04/19 18:30 103 H 117/67 09/04/19 18:00 101 H 09/04/19 17:54 102 H 121/68 09/04/19 17:30 101 H 22 09/04/19 17:05 101 H 15 09/04/19 16:30 99 H 22 95 09/04/19 16:13 95 09/04/19 16:00 104 H 20 97 09/04/19 15:31 108 H 20 98 09/04/19 15:28 37.2 C 108 H 24 112/63 98 09/04/19 15:26 109 H 16 112/63 96 Code Status & VTE Plan VTE Prophylaxis Plan VTE Prophylaxis will be ordered: Yes Supervising Physician Co-Signing Physician Notes Attending addendum: I have physically seen this patient, have supervised the medical residents activities, and agree with the H&P unless as otherwise noted. Assessment and Plan: Chest pain/CAD/hypertension/history of stented coronary arteries x2- The patient will be admitted to telemetry for serial cardiac enzymes, serial EKG's, cardiac rhythm monitoring and a 2-D echocardiogram with Dopplers. Continue aspirin, clopidogrel, lisinopril, isosorbide mononitrate and atorvastatin. Diabetes mellitus- Hold metformin. Placed on Accu-Cheks before meals and at bedtime with NovoLog coverage per scale. Continue Lantus 10 units subcu twice daily. Remainder of orders and notations as noted. Resident Activity Tracking Resident Involvement: Resident Care Provided Care Provided: Adult Hospital Medicine (1) Depression Depression Type: unspecified Qualified Code(s): F32.9 - Major depressive disorder, single episode, unspecified (2) Hyperlipidemia Hyperlipidemia type: unspecified Qualified Code(s): E78.5 - Hyperlipidemia, unspecified (3) Transient ischemic attack (TIA) Transient cerebral ischemia type: unspecified Qualified Code(s): G45.9 - Transient cerebral ischemic attack, unspecified (4) Hypertension Hypertension type: essential hypertension Qualified Code(s): I10 - Essential (primary) hypertension (5) Asthma Asthma complication type: with acute exacerbation Asthma persistence: persistent Asthma severity: moderate Qualified Code(s): J45.41 - Moderate persistent asthma with (acute) exacerbation
[2019-09-04] MEDS: ACETAMINOPHEN 325 MG TAB PO PRN (23:04)
[2019-09-04] MEDS: DULERA~ORDER AWAITING ACTION SCH (23:45)
[2019-09-05] MEDS ORDERED: INFLUENZA VIRUS QUAD VACCINE 0.5 ML SYR IM ONE (00:30)
[2019-09-05] MEDS ORDERED: PNEUMOCOCCAL ADMINISTRATION CHARGE ONE (00:30)
[2019-09-05] MEDS ORDERED: INFLUENZA ADMINISTRATION CHARGE ONE (00:30)
[2019-09-05] MEDS ORDERED: PNEUMOCOCCAL POLYSACCHARIDES 25 MCG/0.5 ML VIAL/SYR IM ONE (00:30)
[2019-09-05] MEDS: ACETAMINOPHEN 325 MG TAB PO PRN ×2 (03:20→08:05)
[2019-09-05] MEDS: MoRPHine SULFATE 2 MG/ML CARP IV PRN ×2 (03:20→08:05)
[2019-09-05] MEDS: VERAPAMIL HCL 40 MG TAB PO SCH ×2 (08:00→13:27)
[2019-09-05] MEDS: DOCUSATE SODIUM 100 MG CAP PO SCH (08:00)
[2019-09-05] MEDS: INSULIN ASPART 100 UNITS/ML 3 ML PEN SC SCH ×2 (08:18→12:15)
[2019-09-05] MEDS ORDERED: CLOPIDOGREL BISULFATE 75 MG TAB PO SCH (09:00)
[2019-09-05] MEDS ORDERED: ASPIRIN 81 MG ECTAB PO SCH (09:00)
[2019-09-05] MEDS ORDERED: ISOSORBIDE MONO EXTENDED REL 60 MG TABCR PO SCH (09:00)
[2019-09-05] MEDS ORDERED: PANTOprazole 40 MG TAB PO SCH (09:00)
[2019-09-05] MEDS ORDERED: ATORVASTATIN 40 MG TAB PO SCH (09:00)
[2019-09-05] MEDS ORDERED: INSULIN GLARGINE SOLOSTAR 100 UNITS/ML 3 ML PEN SC SCH (09:00)
[2019-09-05] MEDS ORDERED: LISINOPRIL 20 MG TAB PO SCH (09:00)
[2019-09-05] MEDS: DULERA~ORDER AWAITING ACTION SCH (09:44)
--- NOTE | 2019-09-05 16:10 | Discharge Summary ---
Date of Service September 05, 2019 Admission HPI Per Admitting Provider Ms. Islas is a 53-year-old female with a past medical history of CAD s/p placement of 2 stents, obstructive sleep apnea, CHF, GERD, history of TIA, type 2 diabetes mellitus, GERD, asthma and COPD, anxiety and depression, and history of migraines who presents to the emergency department due to chest pain. The patient states that her chest pain began 3 days ago, and worsened suddenly today while she was shopping at [employer]. The patient states that she normally ambulates with a power chair, however decided to leave it at home today. The patient states that her chest pain was over the left side of her chest, and radiated to the left side of her shoulder and back. This was not relieved with nitroglycerin. She denies associated shortness of breath, diaphoresis, nausea, or vomiting. She states that she has had a cold over the past couple of days, and has a nonproductive cough. She states that her chest pain is worse after she coughs. She reports a long-standing history of chest pain, and states that she cannot walk more than 5 feet without having chest pain. She states that her chest pain is never relieved by rest. She reports that she had 2 stents placed in 2004. She did not have an NH at this time, but rather a positive stress test, and then underwent a cath. She reports that she had another cath in 2014, which was normal. Of note, she has a significant past smoking history. She smoked 1 pack/day for 40 years, and quit on February 11, 2019. Principal Diagnosis chest pain, non-cardiac Discharge Data Allergies Allergy/AdvReac Type Severity Reaction Status Date / Time No Known Allergies Allergy Verified 09/04/19 16:42 Consultations 09/04/19 17:18 ED Decision to Admit Stat Hospital Course (1) Acute chest pain: Ms. Islas is a 53-year-old female with a past medical history of CAD s/p placement of 2 stents, obstructive sleep apnea, CHF, GERD, history of TIA, type 2 diabetes mellitus, GERD, asthma and COPD, anxiety and depression, and history of migraines who presents to the emergency department due to chest pain. ED course: 50 mcg IV fentanyl x2, 4 mg IV Zofran, 0.5 inch nitroglycerin paste Chest pain -admit to telemetry -pt has a history of known CAD w/multiple risk factors -Patient has been seen several times in the past for noncardiac chest pain. She underwent a cardiac cath in 2011 for the placement of 2 stents. This was done for a positive stress test. She had a cath performed again in 03/2015 which was negative, and showed patent stents. She had a dobutamine stress echo done in 11/08 which was negative, and again in 12/11 which was also negative. -EKG with no evidence of acute ischemia. Troponin x 1 negative -Low suspicion that this is cardiac in nature, but will monitor and trend trop q6h x2 given significant risk factors -Nitro and morphine ordered as needed for chest pain CAD s/p placement of 2 stents -Continue ASA, plavix, atorvastatin, lisinopril -pt not on a beta irene -Continue Imdur Hx of TIA -continue secondary preventative medications as above Diabetes Mellitus type 2 -HgbA1c = 7.7 on 02/08/19 -hold home metformin -Lantus 10 units BID -BSG AC/HS and ISS Hypertension: -Blood pressure stable at present -Continue medications as above Asthma/COPD -Patient with scattered wheezing on exam -continue home inhalers and nebs -Continue montelukast GERD -Continue Protonix and Ranitidine SMITA -CPAP ordered qhs Migraines -continue verapamil for migraine prevention Code: Full DVT prophylaxis: SCDs Disposition: admit to telemetry (2) Acid reflux: (3) CHF (congestive heart failure): (4) Depression: (5) Diabetes mellitus: (6) Hyperlipidemia: (7) Hypertension: (8) Severe sleep apnea: (9) Asthma: (10) Chronic obstructive pulmonary disease: (11) Transient ischemic attack (TIA): (12) History of cardiac cath: (13) Anxiety: Discharge Plan Discharge Items Patient Disposition: Home - Self-Care Reason For Visit: CHEST PAIN Discharge Diagnosis: Atypical chest pain, non-cardiac Likely musculoskeletal pain Condition on Discharge: Good Goals: improve pain control Activity: Resume your previous activity Non-emergency contact: Primary Care Provider Call non-emergency contact if: you have any medication questions, your symptoms worsen, your pain is not controlled and you have a fever Follow-up/Referrals: Nita Torres MD [Primary Care Provider] - 09/09/19 3:00 pm (Please, follow up with Dr. Torres on MondaySeptember 09 at 3:00 pm. *If you need to change this appointment, call the office at [phone].) Diet: Carb Consistent or DM2 and Heart Healthy Addtl Attending Provider Instructions: Medications: - TRAMADOL: use as needed for pain Chest pain: type of pain, presentation is very atypical for any pain related to your heart since the pain is worse with coughing, makes it more likely musculoskeletal Chest x-ray was normal EKG without ischemic changes troponin (heart enzyme) was negative for three sets recommend that you continue to use anti-inflammatory in form of Diclofenac use Tylenol 650mg every 4 hours scheduled use Tramadol 50mg every 8 hours as needed for pain follow up with PCP in one week for hospital follow up, call for appt Pending Studies at Discharge: No Stand-Alone Forms: Call Back Authorization, My [facility] [employer], Smoking Cessation Medications and DC Order Prescriptions: New tramadol 50 mg tablet 50 mg PO Q8H PRN (Reason: pain) Qty: 14 RF: 0 Continued isosorbide mononitrate 60 mg Tablet Extended Release 24 Hr 60 mg PO QAM Qty: 0 RF: 0 nitroglycerin [Nitrostat] 0.4 mg Tablet, Sublingual 0.4 mg Sublingual DIRECTED PRN (Reason: Chest Pain) Qty: 0 RF: 0 ranitidine HCl 150 mg Tablet 150 mg PO HS Qty: 0 RF: 0 clopidogrel [Plavix] 75 mg Tablet 75 mg PO QAM Qty: 0 RF: 0 pantoprazole 40 mg Tablet,Delayed Release (Dr/Ec) 40 mg PO QAM Qty: 0 RF: 0 diclofenac sodium [Voltaren] 1 % Gel 2 g TOPICAL QID PRN (Reason: Pain) Qty: 0 RF: 0 prochlorperazine maleate 10 mg tablet 10 mg PO Q6 PRN (Reason: Nausea) 30 Days Qty: 20 RF: 5 aspirin [Aspirin Low Dose] 81 mg tablet,delayed release (DR/EC) 81 mg PO DAILY Qty: 0 RF: 0 atorvastatin 80 mg tablet 80 mg PO DAILY RF: 0 (DME) insulin syringe-needle U-100 [BD Insulin Syringe Ultra-Fine] 0.5 mL 30 gauge x 1/2" syringe See Dose Instructions .ROUTE .MEDSUPPLY Qty: 1 RF: 0 diclofenac potassium 50 mg tablet 50 mg PO Q8H PRN (Reason: Pain) RF: 0 ipratropium-albuterol 0.5 mg-3 mg(2.5 mg base)/3 mL solution for nebulization 3 ml INH Q6H PRN (Reason: Shortness Of Breath) RF: 0 metformin 500 mg tablet extended release 24hr 500 mg PO QAM RF: 0 montelukast 10 mg tablet 10 mg PO QPM RF: 0 (DME) lancets [OneTouch Delica Lancets] 33 gauge misc See Dose Instructions .ROUTE .MEDSUPPLY Qty: 100 RF: 0 (DME) OneTouch Ultra Blue Test Strip strip See Dose Instructions .ROUTE .MEDSUPPLY Qty: 10 RF: 0 Proctofoam HC 1-1 % foam 1 appln [place] QID PRN (Reason: Hemorrhoids) RF: 0 docusate sodium [Colace] 100 mg Capsule 100 mg PO BID RF: 0 verapamil 80 mg Tablet 80 mg PO TID RF: 0 Dulera 200-5 mcg/actuation Hfa Aerosol Inhaler 2 puff INHALATION BID RF: 0 metformin 500 mg Tablet 1,000 mg PO QPM RF: 0 Novolin N NPH U-100 Insulin 100 unit/mL Suspension 10 - 30 unit SUBCUT BIDM RF: 0 lisinopril 20 mg tablet 20 mg PO DAILY Qty: 30 RF: 2 Discharge Orders: Discharge Order (Routine); Ordered 09/05/19 Ordered By: Nickolas Ralph Admission Data Admit Date/Time: 09/04/19 20:17 Attending Provider: Nickolas Ralph Admit Provider: Vidal Hernandez Primary Care Provider: Nita Torres Other Providers: Haresh Jung Other Interventions: Discharge Summary Assessment (RN) Last Done: 09/05/19 13:19 DC Date/Time DO NOT enter until pt leaves facility: 09/05/19 14:05
--- NOTE | 2019-09-06 00:44 | Billing Data ---
Coding Level of Care Code 77054 Initial Inpt Care Lvl 3
== END 2019-09-05 14:05 | disposition home or self-care (01) ==
LOC: 2S 15:22 → ED 15:22 → SUATTDRO 20:17 → 2S 20:52

== ENCOUNTER 2019-10-27 03:06 | Observation (INO) ==
[2019-10-27] MEDS ORDERED: ASPIRIN CHEW 324 MG ONE (03:17)
[2019-10-27] MEDS ORDERED: fentaNYL citrate 100 MCG/2 ML VIAL IV ONE (03:24)
[2019-10-27] MEDS ORDERED: ONDANSETRON INJ 2 MG/ML 2 ML VIAL IV STA (04:06)
[2019-10-27 04:14] LABS: Basophils # (auto) 0.01 K/uL (0-0.2); Basophils % (auto) 0.1 %; Eosinophils # (auto) 0.15 K/uL (0-0.5); Eosinophils % (auto) 1.8 %; Hematocrit (blood only) 40.7 % (37-47); Hemoglobin 13.1 g/dL (12.0-16.0); Immature Granulocytes # (auto) 0.01 K/uL (0.00-0.02); Immature Granulocytes % (auto) 0.1 %; Lymphocytes # (auto) 4.08 K/uL (1.2-3.4); Mean Corpuscular Hemoglobin 30.5 pg (25-34); Mean Corpuscular Hgb Conc 32.2 g/dL (32-36); Mean Corpuscular Volume 94.9 fL (80-100); Mean Platelet Volume 11.3 fL (7.4-10.4); Monocytes # (auto) 0.53 K/uL (0.11-0.59); Monocytes % (auto) 6.4 %; Neutrophils # (auto) 3.54 K/uL (1.4-6.5); Neutrophils % (auto) 42.6 %; Platelet Count 222 K/uL (130-400); RDW Coefficient of Variation 14.3 % (11.5-14.5); Red Blood Count 4.29 M/uL (4.2-5.4); White Blood Count 8.32 K/uL (4.8-10.8)
[2019-10-27 04:35] LABS: Alanine Aminotransferase 20 U/L (12-78); Albumin Level 2.8 gm/dl (3.4-5.0); Aspartate Aminotransferase 18 U/L (15-37); BUN Creatinine Ratio 19.5 (10-20); Blood Urea Nitrogen 16 mg/dl (7-18); Calcium 8.6 mg/dl (8.5-10.1); Carbon Dioxide 26 mmol/L (21-32); Chloride 114 mmol/L (98-107); Creatinine Clr Calc Pharmacy 97.3 ml/min; Est GFR (Non-African American) 79.4; Glucose 131 mg/dl (70-99); Lipase 282 U/L (73-393); Potassium 4.1 mmol/L (3.5-5.1); Sodium 142 mmol/L (136-145)
[2019-10-27 04:40] LABS: Albumin Globulin Ratio 0.7 (0.9-2); Alkaline Phosphatase 94 U/L (45-117); Bilirubin,Total 0.2 mg/dl (0.2-1); Globulin 4.1 gm/dl (2.5-4.0); Total Protein 6.9 gm/dl (6.4-8.2); Troponin I < 0.015 ng/ml (0-0.045)
--- NOTE | 2019-10-27 05:35 | History & Physical Report ---
Date of Service October 27, 2019 Assessment & Plan (1) Left-sided chest pain: Obs tele serial trops NTG prn continue isosorbide. Pain and nausea control DVT prophylaxis = SCDs and Lovenox. (2) Chronic obstructive pulmonary disease: No exacerbation Continue prn albuterol nebs, Dulera, and Spiriva. (3) Hypertension: Continue lisinopril (4) Hyperlipidemia: Continue Atorvastatin. (5) Diabetes mellitus, type 2: ADA diet Continue NPH at 20 units BID with meal Sliding scale fast acting insulin Hold Metformin in event she may require dye load. (6) GERD (gastroesophageal reflux disease): Continue pantoprazole and Pepcid (in lieu of Zantac) (7) CAD (coronary artery disease): Continue aspirin and Plavix. Patient had 2 stents placed in 2011. Cath in 03/2015 showed patent stents. dobutamine stress echo on 11/08 and 12/11 were both negative for ischemia. History of Present Illness 54 y/o female presented to the ED via EMS with substernal chest pain radiating to the left chest associated with SOB. No diaphoresis, cough, F/C, abdominal pain, N/V/D, or swelling in the ankles. She had taken 2 NTG around 2030 last night which resolved her symptoms. Then chest pain recurred and awoke her from sleep. As I am seeing the patient, chest pain is improved. Primary Care Provider: Nita Torres MD Allergies Allergy/AdvReac Type Severity Reaction Status Date / Time No Known Allergies Allergy Verified 10/27/19 03:25 Home Medications Home Medications Medication Instructions Recorded Confirmed Type isosorbide mononitrate 60 mg PO QAM #0 12/14/16 10/27/19 History nitroglycerin [Nitrostat] 0.4 mg SUBLINGUAL DIRECTED PRN 12/14/16 10/27/19 History #0 btl ranitidine HCl 150 mg PO HS #0 12/14/16 10/27/19 History clopidogrel [Plavix] 75 mg PO QAM #0 05/25/18 10/27/19 History diclofenac sodium [Voltaren] 2 g TOPICAL QID PRN #0 05/25/18 10/27/19 History pantoprazole 40 mg PO QAM #0 05/25/18 10/27/19 History Novolin N NPH U-100 Insulin 10 - 30 unit SUBCUT BIDM 06/28/18 10/27/19 History Dulera 2 puff INHALATION BID 12/04/18 10/27/19 History docusate sodium [Colace] 100 mg PO BID 12/04/18 10/27/19 History verapamil 80 mg PO TID 12/04/18 10/27/19 History lisinopril 20 mg PO DAILY #30 tab 02/11/19 10/27/19 Rx aspirin 81 mg tablet,delayed 81 mg PO QAM #0 tab 07/09/19 10/27/19 History release atorvastatin 80 mg tablet 80 mg PO HS 07/09/19 10/27/19 History blood sugar diagnostic #10 ea 07/09/19 07/12/19 History diclofenac potassium 50 mg tablet 50 mg PO Q8H PRN tab 07/09/19 10/27/19 History hydrocortisone 1 %-pramoxine 1 % 1 appln TX QID PRN 07/09/19 10/27/19 History rectal foam insulin syringe-needle U-100 0.5 #1 ea 07/09/19 07/12/19 History mL 30 gauge x 1/2" lancets 33 gauge #100 ea 07/09/19 07/12/19 History metformin 500 mg tablet,extended 500 mg PO QPM 07/09/19 10/27/19 History release 24hr montelukast 10 mg tablet 10 mg PO HS 07/09/19 10/27/19 History metformin 1,000 mg PO QAM 09/04/19 10/27/19 History albuterol sulfate 2 puff INHALATION Q4 PRN 09/24/19 10/27/19 History bupropion HCl 150 mg PO BID 09/24/19 10/27/19 History ergocalciferol (vitamin D2) 50,000 unit PO WK 09/24/19 10/27/19 History [Vitamin D2] gabapentin 300 mg PO BID 09/24/19 10/27/19 History lidocaine [Lidoderm] 2 patch TOPICAL DAILY 09/24/19 10/27/19 History prochlorperazine maleate 10 mg PO Q6H PRN 09/24/19 10/27/19 History tiotropium bromide [Spiriva 2 puff INHALATION DAILY 09/24/19 10/27/19 History Respimat] Past Med/Surg History Medical History Angina pectoris (Acute) Anxiety Arthritis of knee (Acute) Asthma Atrial tachycardia [facility] CAD (coronary artery disease) CHF (congestive heart failure) Chronic back pain Chronic obstructive pulmonary disease CSF leak Degeneration of cervical intervertebral disc (Acute) Depression Diabetes mellitus, type 2 (Chronic) IDDM External hemorrhoids (Acute) Fracture tibia/fibula (Resolved) LEFT WITH ORIF Frequent falls (Acute) GERD (gastroesophageal reflux disease) Hemiplegic migraine (Acute) Hyperlipidemia Hypertension Obstructive sleep apnea on CPAP Osteoarthritis Post traumatic stress disorder Transient ischemic attack (TIA) PLAVIX. FOLLOWS WITH PCP Urinary incontinence (Acute) Vitamin D deficiency (Acute) Surgical History Facial fracture (Resolved) (2015) WITH RECONSTRUCTION History of bilateral tubal ligation (Resolved) History of cardiac cath X2 STENTS - (~2010, IN [place], [place]). NO STENTS - ([facility] @ ~2014) History of colonoscopy (Resolved) History of esophagogastroduodenoscopy (EGD) (Resolved) History of heart artery stent (Resolved) X2 STENTS (2010) UNSURE OF KIND. NO STENT CARDS PER PT. History of mandibular surgery S/P left knee arthroscopy Status post right foot surgery (Resolved) Family History Mother Breast cancer Type 2 diabetes mellitus Father Diabetes Coronary heart disease Type 2 diabetes mellitus Myocardial infarction Family/Other Hypertension Social History Preferred Language: Telugu Communication Ability: Effective Visual Impairment: No Limitations Senior Network Architect Required: No Beliefs That Will Affect Care: None marital status: Single Current Living Situation: Spouse Feels Safe at Home: Yes Smoking Status: Current every day smoker Tobacco Type: cigarettes ; Cigarettes Per Day: 20 ; Second Hand Exposure: Yes ; Hx Alcohol Use: No Hx Substance Use: No Review of Systems Review of Systems: Constitutional- no fever; no weight loss Eyes- no acute visual changes ENT- no sinus drainage; no pharyngitis Pulmonary- no cough, no wheezing, no shortness of breath Cardiac- As in HPI. GI- no nausea, no vomiting, no diarrhea, no melena, no hematochezia - no dysuria, no hematuria Musculoskeletal- + chronic back pain, no myalgias Derm- no rashes, no new skin lesions, no changing skin lesions Hematologic- no unusual bruising, no unusual bleeding Lymphatics- no adenopathy Endocrine- no polyuria or polydipsia; no heat or cold intolerance Neuro- no headaches, no focal neurologic symptoms Psych- no anxiety, no depression Physical Exam Physical Exam: General- adult female, NAD Head- atraumatic Eyes- PERRL, EOMI, anicteric ENT- oropharynx clear Neck- supple, no JVD, no adenopathy, no thyromegaly. Lungs- CTA b/l no R/R/W. Heart- regular rhythm; no murmur, no gallop, no rub appreciated Abdomen- normal bowel sounds, soft, nontender. 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 Skin- warm & dry Results & Data Vital Signs (Past 12 Hours) Vital Signs Temp Pulse Resp BP Pulse Ox 10/27/19 04:38 85 14 110/60 95 10/27/19 04:37 85 18 110/60 98 10/27/19 04:30 83 24 97/63 L 95 10/27/19 04:15 87 21 89/54 L 93 10/27/19 04:00 89 22 108/63 95 10/27/19 03:45 88 17 119/66 94 10/27/19 03:30 89 16 99/63 L 96 10/27/19 03:22 37.0 C 97 H 18 92/65 L 97 Laboratory Results Laboratory Results WBC 8.32 K/uL (4.8-10.8) 10/27/19 03:52 RBC 4.29 M/uL (4.2-5.4) 10/27/19 03:52 Hgb 13.1 g/dL (12.0-16.0) 10/27/19 03:52 Hct 40.7 % (37-47) 10/27/19 03:52 MCV 94.9 fL (80-100) 10/27/19 03:52 MCH 30.5 pg (25-34) 10/27/19 03:52 MCHC 32.2 g/dL (32-36) 10/27/19 03:52 RDW Std Deviation 49.0 fL (36.4-46.3) H 10/27/19 03:52 RDW Coeff of Majo 14.3 % (11.5-14.5) 10/27/19 03:52 Plt Count 222 K/uL (130-400) 10/27/19 03:52 MPV 11.3 fL (7.4-10.4) H 10/27/19 03:52 Immature Gran % (Auto) 0.1 % 10/27/19 03:52 Neut % (Auto) 42.6 % 10/27/19 03:52 Lymph % (Auto) 49.0 % 10/27/19 03:52 [place] % (Auto) 6.4 % 10/27/19 03:52 Eos % (Auto) 1.8 % 10/27/19 03:52 Baso % (Auto) 0.1 % 10/27/19 03:52 Immature Gran # (Auto) 0.01 K/uL (0.00-0.02) 10/27/19 03:52 Neut # (Auto) 3.54 K/uL (1.4-6.5) 10/27/19 03:52 Lymph # (Auto) 4.08 K/uL (1.2-3.4) H 10/27/19 03:52 [place] # (Auto) 0.53 K/uL (0.11-0.59) 10/27/19 03:52 Eos # (Auto) 0.15 K/uL (0-0.5) 10/27/19 03:52 Baso # (Auto) 0.01 K/uL (0-0.2) 10/27/19 03:52 Sodium 142 mmol/L (136-145) 10/27/19 03:52 Potassium 4.1 mmol/L (3.5-5.1) 10/27/19 03:52 Chloride 114 mmol/L (98-107) H 10/27/19 03:52 Carbon Dioxide 26 mmol/L (21-32) 10/27/19 03:52 Anion Gap 2.0 (3-11) L 10/27/19 03:52 BUN 16 mg/dl (7-18) 10/27/19 03:52 Creatinine 0.83 mg/dl (0.6-1.2) 10/27/19 03:52 Est Cr Clr Drug Dosing 97.3 ml/min 10/27/19 03:52 Est GFR ( Amer) 92.0 10/27/19 03:52 Est GFR (Non-Af Amer) 79.4 10/27/19 03:52 BUN/Creatinine Ratio 19.5 (10-20) 10/27/19 03:52 Glucose 131 mg/dl (70-99) H 10/27/19 03:52 Calcium 8.6 mg/dl (8.5-10.1) 10/27/19 03:52 Total Bilirubin 0.2 mg/dl (0.2-1) 10/27/19 03:52 AST 18 U/L (15-37) 10/27/19 03:52 ALT 20 U/L (12-78) 10/27/19 03:52 Alkaline Phosphatase 94 U/L (45-117) 10/27/19 03:52 Troponin I < 0.015 ng/ml (0-0.045) 10/27/19 03:52 Total Protein 6.9 gm/dl (6.4-8.2) 10/27/19 03:52 Albumin 2.8 gm/dl (3.4-5.0) L 10/27/19 03:52 Globulin 4.1 gm/dl (2.5-4.0) H 10/27/19 03:52 Albumin/Globulin Ratio 0.7 (0.9-2) L 10/27/19 03:52 Lipase 282 U/L (73-393) 10/27/19 03:52 Code Status & VTE Plan VTE Prophylaxis Plan VTE Prophylaxis will be ordered: Yes PG Care Time/CCT Total # of Minutes Spent Total Time Spent: 50 Total Time Spent with Patient: Total time spent is greater than 50% in coordination of care (as documented) at patient's floor/unit and/or counseling patient: (1) Hypertension Hypertension type: essential hypertension Qualified Code(s): I10 - Essential (primary) hypertension (2) Hyperlipidemia Hyperlipidemia type: unspecified Qualified Code(s): E78.5 - Hyperlipidemia, unspecified (3) Diabetes mellitus, type 2 Diabetes mellitus assisted insulin use: with assisted use Diabetes mellitus complication status: with hyperglycemia Qualified Code(s): E11.65 - Type 2 diabetes mellitus with hyperglycemia; Z79.4 - MCFP (current) use of insulin (4) GERD (gastroesophageal reflux disease) Esophagitis presence: esophagitis presence not specified Qualified Code(s): K21.9 - Gastro-esophageal reflux disease without esophagitis (5) CAD (coronary artery disease) Coronary Disease-Associated Artery/Lesion type: [place] artery [place] vs. transplanted heart: [place] heart Associated angina: with unstable angina Qualified Code(s): I25.110 - Atherosclerotic heart disease of [place] coronary artery with unstable angina pectoris
[2019-10-27] MEDS ORDERED: ACETAMINOPHEN 325 MG TAB PO PRN (06:07)
[2019-10-27] MEDS ORDERED: DEXTROSE 50% 50 ML SYRINGE IV PRN (06:07)
[2019-10-27] MEDS ORDERED: CARBOHYDRATES FOR HYPOGLYCEMIA PO PRN (06:07)
[2019-10-27] MEDS ORDERED: GLUCAGON FOR INJ 1 MG VIAL SQ PRN (06:07)
[2019-10-27] MEDS ORDERED: MoRPHine SULFATE 4 MG/ML 1 ML CARP\\VIAL IV PRN (06:07)
[2019-10-27] MEDS ORDERED: NITROGLYCERIN SL 0.4 MG/TAB TAB SL PRN (06:07)
[2019-10-27] MEDS ORDERED: GLUCOSE 10 TABS/TUBE PO PRN (06:07)
[2019-10-27] MEDS ORDERED: ALBUTEROL 0.083% NEBU SOLN 3 ML VIAL NEB PRN (06:07)
[2019-10-27] MEDS ORDERED: ONDANSETRON INJ 2 MG/ML 2 ML VIAL IV PRN (06:07)
[2019-10-27] MEDS ORDERED: GLUCOSE 40% GEL 15 GM TUBE PO PRN (06:07)
--- NOTE | 2019-10-27 07:03 | XRay Report ---
XR chest 1V portable CLINICAL HISTORY: Chest Pain COMPARISON STUDY: Chest CT December 04, 2018. Chest radiograph September 04, 2019. FINDINGS: Lung volumes are normal. Lungs are clear. There is no pneumothorax or pleural effusion. Car diac size is normal. Mediastinal contours are normal. There is no evidence for pulmonary edema. IMPRESSION: No acute cardiopulmonary findings. ACT 112: Negative or not required by law. Electronically signed by: Giuliano Juares M.D. 10/27/2019 7:02 AM
--- NOTE | 2019-10-27 08:00 | Emergency Department Note ---
Entered by Praful Brown acting as a scribe for History of Present Illness General Chief complaint: Chest Pain Stated complaint: chest pain Time Seen by Provider: 10/27/19 03:12 Source: patient History of Present Illness Onset (ago): day(s) (1999 yesterday) Location: chest (left-sided) Pain Consistency: + constant Maximum Pain Intensity: 5 Current Pain Intensity: 5 Associated symptoms: + other (Positive for swelling in her feet, lightheadedness, weakness, and SOB. Negative for abdominal pain, SOB, and nausea.) The patient is a 54 year old female who presents to the emergency department with complaints of constant left-sided chest pain beginning at 1999 yesterday. The patient states that she was watching TV when her chest pain began. She notes that she then took two nitro and went to bed at 2300. She reports that her chest pain then woke up her this morning. The patient states that she took another nitro and called 911. She notes that she received another nitro en route to the emergency department. She rates her pain as a 5/10. She also complains of swelling in her feet, lightheadedness, weakness, and SOB. She denies any abdominal pain, diaphoresis, and nausea. She reports that she has a history of a previous TIA and two cardiac stents. The patient states that her pain does not feel like GERD. She notes that she is cutting back on smoking cigarettes. Home Medications Home Medications Medication Instructions Recorded Confirmed Type isosorbide mononitrate 60 mg PO QAM #0 12/14/16 10/27/19 History nitroglycerin [Nitrostat] 0.4 mg SUBLINGUAL DIRECTED PRN 12/14/16 10/27/19 History #0 btl ranitidine HCl 150 mg PO HS #0 12/14/16 10/27/19 History clopidogrel [Plavix] 75 mg PO QAM #0 05/25/18 10/27/19 History diclofenac sodium [Voltaren] 2 g TOPICAL QID PRN #0 05/25/18 10/27/19 History pantoprazole 40 mg PO QAM #0 05/25/18 10/27/19 History Novolin N NPH U-100 Insulin 10 - 30 unit SUBCUT BIDM 06/28/18 10/27/19 History Dulera 2 puff INHALATION BID 12/04/18 10/27/19 History docusate sodium [Colace] 100 mg PO BID 12/04/18 10/27/19 History verapamil 80 mg PO TID 12/04/18 10/27/19 History lisinopril 20 mg PO DAILY #30 tab 02/11/19 10/27/19 Rx aspirin 81 mg tablet,delayed 81 mg PO QAM #0 tab 07/09/19 10/27/19 History release atorvastatin 80 mg tablet 80 mg PO HS 07/09/19 10/27/19 History blood sugar diagnostic #10 ea 07/09/19 07/12/19 History diclofenac potassium 50 mg tablet 50 mg PO Q8H PRN tab 07/09/19 10/27/19 History hydrocortisone 1 %-pramoxine 1 % 1 appln MS QID PRN 07/09/19 10/27/19 History rectal foam insulin syringe-needle U-100 0.5 #1 ea 07/09/19 07/12/19 History mL 30 gauge x 1/2" lancets 33 gauge #100 ea 07/09/19 07/12/19 History metformin 500 mg tablet,extended 500 mg PO QPM 07/09/19 10/27/19 History release 24hr montelukast 10 mg tablet 10 mg PO HS 07/09/19 10/27/19 History metformin 1,000 mg PO QAM 09/04/19 10/27/19 History albuterol sulfate 2 puff INHALATION Q4 PRN 09/24/19 10/27/19 History bupropion HCl 150 mg PO BID 09/24/19 10/27/19 History ergocalciferol (vitamin D2) 50,000 unit PO WK 09/24/19 10/27/19 History [Vitamin D2] gabapentin 300 mg PO BID 09/24/19 10/27/19 History lidocaine [Lidoderm] 2 patch TOPICAL DAILY 09/24/19 10/27/19 History prochlorperazine maleate 10 mg PO Q6H PRN 09/24/19 10/27/19 History tiotropium bromide [Spiriva 2 puff INHALATION DAILY 09/24/19 10/27/19 History Respimat] Allergies Allergy/AdvReac Type Severity Reaction Status Date / Time No Known Allergies Allergy Verified 10/27/19 03:25 Past Med/Surg History Medical History Angina pectoris (Acute) Anxiety Arthritis of knee (Acute) Asthma Atrial tachycardia [facility] CAD (coronary artery disease) CHF (congestive heart failure) Chronic back pain Chronic obstructive pulmonary disease CSF leak Degeneration of cervical intervertebral disc (Acute) Depression Diabetes mellitus, type 2 (Chronic) IDDM External hemorrhoids (Acute) Fracture tibia/fibula (Resolved) LEFT WITH ORIF Frequent falls (Acute) GERD (gastroesophageal reflux disease) Hemiplegic migraine (Acute) Hyperlipidemia Hypertension Obstructive sleep apnea on CPAP Osteoarthritis Post traumatic stress disorder Transient ischemic attack (TIA) PLAVIX. FOLLOWS WITH PCP Urinary incontinence (Acute) Vitamin D deficiency (Acute) Surgical History Facial fracture (Resolved) (2015) WITH RECONSTRUCTION History of bilateral tubal ligation (Resolved) History of cardiac cath X2 STENTS - (~2010, IN [place], [place]). NO STENTS - ([facility] @ ~2014) History of colonoscopy (Resolved) History of esophagogastroduodenoscopy (EGD) (Resolved) History of heart artery stent (Resolved) X2 STENTS (2010) UNSURE OF KIND. NO STENT CARDS PER PT. 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 and A total of 10 systems reviewed and were otherwise negative Physical Exam Vital Signs Vital Signs - 24 hr 10/27/19 03:22 10/27/19 03:30 10/27/19 03:45 Temperature 37.0 C Temperature Source Oral Pulse Rate 97 H 89 88 Pulse Rate from SpO2 Sensor 89 88 Pulse Rhythm Regular Pulse Strength Normal Respiratory Rate 18 16 17 Respiratory Effort / Characteristics Non-Labored Spontaneous Respiratory Depth Normal Respiratory Pattern Regular Blood Pressure 92/65 L 99/63 L 119/66 Blood Pressure Mean 74 75 83 Blood Pressure Position Lying Pulse Oximetry 97 96 94 Oxygen Delivery Method Room Air Room Air Room Air Sepsis Recent Fever Within 48 Hours No Sepsis Action Taken by Nursing No Action Required 10/27/19 04:00 10/27/19 04:15 10/27/19 04:30 Temperature Temperature Source Pulse Rate 89 87 83 Pulse Rate from SpO2 Sensor 90 86 83 Pulse Rhythm Pulse Strength Respiratory Rate 22 21 24 Respiratory Effort / Characteristics Respiratory Depth Respiratory Pattern Blood Pressure 108/63 89/54 L 97/63 L Blood Pressure Mean 75 64 78 Blood Pressure Position Pulse Oximetry 95 93 95 Oxygen Delivery Method Room Air Room Air Room Air Sepsis Recent Fever Within 48 Hours Sepsis Action Taken by Nursing 10/27/19 04:37 10/27/19 04:38 10/27/19 04:45 Temperature Temperature Source Pulse Rate 85 85 89 Pulse Rate from SpO2 Sensor 86 84 90 Pulse Rhythm Pulse Strength Respiratory Rate 18 14 25 H Respiratory Effort / Characteristics Respiratory Depth Respiratory Pattern Blood Pressure 110/60 110/60 102/62 Blood Pressure Mean 69 76 72 Blood Pressure Position Pulse Oximetry 98 95 93 Oxygen Delivery Method Room Air Sepsis Recent Fever Within 48 Hours Sepsis Action Taken by Nursing 10/27/19 05:01 10/27/19 05:15 10/27/19 05:16 Temperature Temperature Source Pulse Rate 85 82 83 Pulse Rate from SpO2 Sensor 84 83 82 Pulse Rhythm Pulse Strength Respiratory Rate 21 24 19 Respiratory Effort / Characteristics Respiratory Depth Respiratory Pattern Blood Pressure 117/62 113/71 Blood Pressure Mean 80 83 Blood Pressure Position Pulse Oximetry 96 94 94 Oxygen Delivery Method Room Air Sepsis Recent Fever Within 48 Hours Sepsis Action Taken by Nursing HEENT: Head - normocephalic and atraumatic Pupils are equal, round, and reactive to light. Extraocular eye muscles are intact, and sclera are anicteric. Nose - moist nasal mucosa without discharge. Mouth - moist buccal mucosa. Oropharynx is nonerythematous and there is no tonsillar exudate or edema noted. Neck: Supple; no JVD or auscultated bruits. Heart: Regular rate and rhythm. There is a normal S1 and S2 with no murmurs, clicks, or gallops appreciated. Lungs: Clear to auscultation bilaterally with no wheezes, rales, or rhonchi. Abdomen: Soft, completely nontender, nondistended, with good bowel sounds. There are no palpable pulsatile masses or hepatosplenomegaly. There is no guarding, rigidity, or rebound noted. Extremities: No evidence of cyanosis, clubbing, or edema. There are easily palpable peripheral pulses. Skin: warm and dry with good turgor and no rashes. Course Course 0314: The patient was evaluated in room A11. A complete history and physical exam was performed. Previous electronic medical records were reviewed. Laboratory studies were drawn as above. A twelve-lead EKG was obtained. 0335: Fentanyl Citrate 50mcg IV 0413: Ondansetron 4mg IV. A chest x-ray was performed. I reviewed some of the laboratory studies with the patient. She is currently comfortable. 0503: I rechecked the patient. She is still having some left-sided discomfort. 0508: Upon reevaluation, the patient is stable. I discussed the findings and the treatment plan with the patient. She expresses agreement and understanding. I spoke with Dr. Land of the [facility]. The patient will be evaluated for further management. Consultations Consultation #1: I reviewed the patient's case with Dr. Land - Hospitalist, [facility]. He will evaluate the patient for further management. Time: 05:08 Administered Medications Discontinued Medications Fentanyl Citrate (Fentanyl Citrate) 50 mcg IV NOW ONE Stop: 10/27/19 03:25 Last Admin: 10/27/19 03:35 Dose: 50 mcg Documented by: [id number] Ondansetron HCl (Zofran) 4 mg IV NOW STA Stop: 10/27/19 04:07 Last Admin: 10/27/19 04:13 Dose: 4 mg Documented by: [id number] Medical Decision Making Differential Diagnosis Differential diagnoses include: acute coronary syndrome, STEMI, GERD, aortic dissection, anxiety, and angina. Medical Records Attestation: I reviewed the patient's medical records. Home Medications Current Medication List: was personally reviewed by me Laboratory Data Attestation: I reviewed the patient's lab results. Result diagrams: 10/27/19 03:52 10/27/19 03:52 Lab Results 10/27/19 10/27/19 Range/Units 03:52 03:52 WBC 8.32 (4.8-10.8) K/uL RBC 4.29 (4.2-5.4) M/uL Hgb 13.1 (12.0-16.0) g/dL Hct 40.7 (37-47) % MCV 94.9 (80-100) fL MCH 30.5 (25-34) pg MCHC 32.2 (32-36) g/dL RDW Std Deviation 49.0 H (36.4-46.3) fL RDW Coeff of Majo 14.3 (11.5-14.5) % Plt Count 222 (130-400) K/uL MPV 11.3 H (7.4-10.4) fL Immature Gran % (Auto) 0.1 % Neut % (Auto) 42.6 % Lymph % (Auto) 49.0 % Brewster % (Auto) 6.4 % Eos % (Auto) 1.8 % Baso % (Auto) 0.1 % Immature Gran # (Auto) 0.01 (0.00-0.02) K/uL Neut # (Auto) 3.54 (1.4-6.5) K/uL Lymph # (Auto) 4.08 H (1.2-3.4) K/uL Brewster # (Auto) 0.53 (0.11-0.59) K/uL Eos # (Auto) 0.15 (0-0.5) K/uL Baso # (Auto) 0.01 (0-0.2) K/uL Sodium 142 (136-145) mmol/L Potassium 4.1 (3.5-5.1) mmol/L Chloride 114 H (98-107) mmol/L Carbon Dioxide 26 (21-32) mmol/L Anion Gap 2.0 L (3-11) BUN 16 (7-18) mg/dl Creatinine 0.83 (0.6-1.2) mg/dl Est Cr Clr Drug Dosing 97.3 ml/min Est GFR ( Amer) 92.0 Est GFR (Non-Af Amer) 79.4 BUN/Creatinine Ratio 19.5 (10-20) Glucose 131 H (70-99) mg/dl Calcium 8.6 (8.5-10.1) mg/dl Total Bilirubin 0.2 (0.2-1) mg/dl AST 18 (15-37) U/L ALT 20 (12-78) U/L Alkaline Phosphatase 94 (45-117) U/L Troponin I < 0.015 (0-0.045) ng/ml Total Protein 6.9 (6.4-8.2) gm/dl Albumin 2.8 L (3.4-5.0) gm/dl Globulin 4.1 H (2.5-4.0) gm/dl Albumin/Globulin Ratio 0.7 L (0.9-2) Lipase 282 (73-393) U/L Imaging Data Attestation: I personally reviewed and interpreted this imaging study as follows: My Impression: CHEST X-RAY: Borderline cardiomegaly. No pulmonary infiltrate or consolidation. ECG Data Attestation: I personally reviewed and interpreted this ECG as follows: Indication: + chest pain Rate (beats per minute): 98 Rhythm: + normal sinus ECG ST segments: no ST depression and no ST elevation ECG Findings: + LVH Comparison ECG Date: from (09/04/2019) Change: no significant change Additional Comments: Prolonged QT. Blood Pressure Blood Pressure Findings: Normal blood pressure Blood Pressure Disposition: did not require urgent referral MDM Narrative The patient is a 54 year old female who presents to the emergency department w ith complaints of constant left-sided chest pain beginning at 1999 yesterday. The patient describes having a cardiac history with previous stent placement in 2009. She denies doing any strenuous activity but does describe feeling somewhat nauseated and short of breath with her left-sided chest discomfort. The pain was not reproducible. The patient has no significant EKG changes but with her cardiac history, her symptoms are concerning. I discussed the case with the [facility] Hospitalist and they will evaluate for further management. Impression & Plan Left-sided chest pain Discharge Plan Visit Data *Final* Discharge Date/Time: 10/27/19 05:42 Chief Complaint: Chest Pain Stated Complaint: chest pain ED Provider: Aga Castaneda Discharge Problem: Left-sided chest pain Patient Disposition: Admitted As Inpatient Discharge Instructions Interventions: ED Discharge Assessment Last Done: 10/27/19 05:42 The scribe's documentation has been prepared under my direction and personally reviewed by me in its entirety. I confirm that the note above accurately reflects all work, treatment, procedures, and medical decision making performed by me.
[2019-10-27] MEDS: MoRPHine SULFATE 2 MG/ML CARP IV PRN ×2 (08:38→21:27)
[2019-10-27] MEDS: INSULIN ASPART 100 UNITS/ML 3 ML PEN SC SCH ×4 (08:39→21:21)
[2019-10-27] MEDS: ISOSORBIDE MONO EXTENDED REL 60 MG TABCR PO SCH (08:40)
[2019-10-27] MEDS: BuPROPion SR 150 MG TABCR PO SCH ×2 (08:40→21:20)
[2019-10-27] MEDS: CLOPIDOGREL BISULFATE 75 MG TAB PO SCH (08:40)
[2019-10-27] MEDS: PANTOprazole 40 MG TAB PO SCH (08:40)
[2019-10-27] MEDS: FAMOTIDINE 20 MG TAB PO SCH ×2 (08:41→21:22)
[2019-10-27] MEDS: VERAPAMIL HCL 40 MG TAB PO SCH ×2 (08:41→13:05)
[2019-10-27] MEDS: INSULIN HUMAN NPH SC SCH ×2 (08:41→17:52)
[2019-10-27] MEDS: ASPIRIN 81 MG ECTAB PO SCH (08:41)
[2019-10-27] MEDS: ENOXAPARIN INJ 40 MG/0.4 ML SYR SQ SCH (08:43)
[2019-10-27] MEDS: DOCUSATE SODIUM 100 MG CAP PO SCH ×2 (08:44→21:20)
[2019-10-27] MEDS: TIOTROPIUM BROMIDE 5 PUFF/90 MCG INH INH SCH (08:44)
[2019-10-27] MEDS: GABAPENTIN 300 MG CAP PO SCH ×2 (08:44→21:21)
[2019-10-27] MEDS ORDERED: NON-FORMULARY MEDICATION (Mometasone-Formoterol [Dulera] 2 PUFFS) INH SCH (09:00)
[2019-10-27] MEDS ORDERED: lisinopriL 20 MG TAB PO SCH (09:00)
[2019-10-27] MEDS: FLUTICASONE/SALMETEROL (ADVAIR) 500/50 INH 14 PUFF INH SCH ×2 (12:13→21:19)
[2019-10-27] MEDS: SODIUM CHLORIDE 0.9% 1000ML 1,000 ML IV SCH ×2 (13:06→23:56)
--- NOTE | 2019-10-27 13:08 | Electrocardiogram Report ---
Test Reason : Blood Pressure : / mmHG Vent. Rate : 098 BPM Atrial Rate : 098 BPM P-R Int : 154 ms QRS Dur : 082 ms QT Int : 386 ms P-R-T Axes : 029 -04 040 degrees QTc Int : 492 ms Normal sinus rhythm Possible Left atrial enlargement Left ventricular hypertrophy Nonspecific T wave abnormality Prolonged QT Abnormal ECG When compared with ECG of 04-SEP-2019 21:51, No significant change was found Confirmed by Dwayne Guy ([id number]) on 10/27/2019 1:07:48 PM Referred By: REFERRED SELF Confirmed By:Dwayne Gyu
--- NOTE | 2019-10-27 14:53 | History & Physical Bridge Note ---
Date of Service October 27, 2019 History & Physical Bridge Note I have examined the patient, reviewed the History & Physical and in the interval since the performance of the History & Physical I have noted the following changes of clinical significance: no changes noted -Will add NSS @ 80ml/hr for total of 1 L, given BP 86/46 -- patient low 100s systolic this AM and did receive all anti-HTN agents. Monitor volume status. CXR without evidence of pulmonary edema. Trop negative x 2. Third trop this evening. EKG NSR 98bpm with LAE, LVH. Nonspecific T wave abnormality, prolonged QT at 492ms -Cardiology consult added
[2019-10-27] MEDS ORDERED: MONTELUKAST SODIUM 10 MG TABLET PO SCH (21:00)
[2019-10-27] MEDS ORDERED: ATORVASTATIN 40 MG TAB PO SCH (21:00)
[2019-10-28 07:34] LABS: Hematocrit (blood only) 37.5 % (37-47); Hemoglobin 11.7 g/dL (12.0-16.0); Mean Corpuscular Hgb Conc 31.2 g/dL (32-36); Mean Corpuscular Volume 96.2 fL (80-100); Platelet Count 211 K/uL (130-400); RDW Coefficient of Variation 14.4 % (11.5-14.5); White Blood Count 6.29 K/uL (4.8-10.8)
[2019-10-28 07:35] LABS: Base Excess VBG -0.4 mEq/L; Oxygen Saturation VBG 89.8 %; pH VBG 7.38 (7.36-7.41)
[2019-10-28 08:08] LABS: Albumin Level 2.8 gm/dl (3.4-5.0); BUN Creatinine Ratio 19.7 (10-20); Calcium 8.9 mg/dl (8.5-10.1); Creatinine Clr Calc Pharmacy 93.1 ml/min; Est GFR (African American) 86.9; Potassium 4.1 mmol/L (3.5-5.1)
[2019-10-28 08:11] LABS: Albumin Globulin Ratio 0.8 (0.9-2); Bilirubin,Total 0.2 mg/dl (0.2-1); Globulin 3.7 gm/dl (2.5-4.0); Total Protein 6.5 gm/dl (6.4-8.2)
[2019-10-28] MEDS: ENOXAPARIN INJ 40 MG/0.4 ML SYR SQ SCH (08:13)
[2019-10-28] MEDS: PANTOprazole 40 MG TAB PO SCH (08:14)
[2019-10-28] MEDS: ASPIRIN 81 MG ECTAB PO SCH (08:14)
[2019-10-28] MEDS: FAMOTIDINE 20 MG TAB PO SCH (08:15)
[2019-10-28] MEDS: CLOPIDOGREL BISULFATE 75 MG TAB PO SCH (08:15)
[2019-10-28] MEDS: ISOSORBIDE MONO EXTENDED REL 60 MG TABCR PO SCH (08:15)
[2019-10-28] MEDS: GABAPENTIN 300 MG CAP PO SCH (08:15)
[2019-10-28] MEDS: DOCUSATE SODIUM 100 MG CAP PO SCH (08:15)
[2019-10-28] MEDS: BuPROPion SR 150 MG TABCR PO SCH (08:15)
[2019-10-28] MEDS: FLUTICASONE/SALMETEROL (ADVAIR) 500/50 INH 14 PUFF INH SCH (08:16)
[2019-10-28] MEDS: TIOTROPIUM BROMIDE 5 PUFF/90 MCG INH INH SCH (08:16)
[2019-10-28] MEDS: INSULIN HUMAN NPH SC SCH (08:18)
[2019-10-28] MEDS: INSULIN ASPART 100 UNITS/ML 3 ML PEN SC SCH ×2 (08:19→12:34)
[2019-10-28] MEDS ORDERED: KETOROLAC 30 MG/ML VIAL IV STA (09:08)
--- NOTE | 2019-10-28 09:17 | Cardiology Consultation ---
Date of Consultation October 28, 2019 Assessment & Plan (1) Atypical chest pain: Deb is a 54-year-old obese female with a history of CAD s/p ? LCx Stents x 2 in 2011, Long-Standing Type 2 Diabetes Mellitus, Dyslipidemia, COPD, GERD, CHF, Atypical Chest Pain, Hemiplegic Migraine Headaches, Depression, Anxiety, and PTSD who was admitted to [facility] on 10/27/2019 with an Atypical Chest Pain Syndrome. Thus far her Cardiac Enzymes are negative x 3, her EKG's show no acute or dynamic changes (even while patient having severe chest pain). Her chest pain is described as "sharp and stabbing", is without associated symptoms, does not radiate, and is worsened by coughing, breathing, and certain positions -- which is not consistent with cardiac chest pain. As she is currently having severe chest pain I've ordered IV Toradol 30 mg x one dose now. I have reassured her that in November 2018 her baseline echocardiogram was normal and there was no evidence of myocardial ischemia on dobutamine stress echo, and she had a relatively recent Cardiac Catheterization in 2014 which showed essentially NORMAL CORONARY ARTERIES (with a patent distal LCx, ? presence of a stent in distal LCx). I have also reassured her that she is on the appropriate medications to prevent the development of vascular disease. Based on these factors -- would recommend that patient ambulate in hallway and assess for any symptoms. If she remains asymptomatic would recommend sending her home with a course of NSAID's. If she has exertional symptoms we could do a DSE -- but it most likely be negative. I suspect that some of her symptoms may be secondary to anxiety -- as she was recently notified that her son (against whom she has a PFA order) was recently released from [facility]. Patient was strongly advised to stop smoking. She was also encouraged to aggressively manage her underlying diabetes mellitus. Continue Atorvastatin 80 mg, Aspirin 81 mg, Lisinopril 20 mg, Imdur 60 mg, Plavix 75 mg, and Verapamil 80 mg. (2) CAD (coronary artery disease): Essentially normal coronary arteries on cardiac catheterization 2014, negative DSE in November 2018. -- Continue medications as outlined above. (3) Hypertension: Controlled: -- Continue current medications as outlined above. (4) Hyperlipidemia: Controlled: -- Continue high intensity statin therapy. Supervising Physician Co-Signing Physician Notes Dwayne Guy MD History of Present Illness Reason for Consultation: -- Chest Pain, atypical. Requesting Physician: Addy Sanders MD Attending Physician: Dwayne Guy MD History of Present Illness Deb is a 54-year-old obese female with a history of CAD s/p ? LCx Stents x 2 i n 2011, Long-Standing Type 2 Diabetes Mellitus, Dyslipidemia, COPD, GERD, CHF, Atypical Chest Pain, Hemiplegic Migraine Headaches, Depression, Anxiety, and PTSD who was admitted to [facility] on 10/27/2019 with sharp left-sided chest pain that began intermittently on Monday and her awakened her early in the morning on Monday. She describes it as very sharp stabbing pain in her left chest under her breast, which does not radiate, and is without associated symptoms. She specifically denies any associated nausea, vomiting, diaphoresis, or dyspnea. When it initially began on Monday she took 2 sublingual nitroglycerin and eventually discomfort eased up. When she awakened in the meter tester polyphase hours on Monday she took a sublingual nitroglycerin and went back to sleep. She admits the pain gets worse with position changes, deep breathing, and with coughing. She is currently complaining of severe, stabbing chest pain. And she is repositioning herself multiple times trying to get into a comfortable position. An EKG done this morning while having severe chest pain showed no ST segment deviations. She was given 4 mg of IV morphine and that reduced her chest discomfort significantly. On further questioning today, the patient admitted to having significant stress in her life. She has 2 grown sons, 1 of whom she has a PFA against. She was recently notified that this son was released from [facility] and that has been stressing me out. He has not approached her nor has he made threats towards her. She currently feels safe in her own home. She lives alone. Patient continues to smoke cigarettes. She has not had any recent illnesses, fevers, chills, or viral syndromes. Please note patient underwent cardiac catheterization in 2014 which showed essentially normal coronary arteries, possibly a stent present in distal LCx. Also patient was admitted to [facility] in November 2018 with similar symptoms and had a Negative Stress Echocardiogram at that time. Allergies Allergy/AdvReac Type Severity Reaction Status Date / Time No Known Allergies Allergy Verified 10/27/19 03:25 Home Medications Home Medications Medication Instructions Recorded Confirmed Type isosorbide mononitrate 60 mg PO QAM #0 12/14/16 10/27/19 History nitroglycerin [Nitrostat] 0.4 mg SUBLINGUAL DIRECTED PRN 12/14/16 10/27/19 History #0 btl ranitidine HCl 150 mg PO HS #0 12/14/16 10/27/19 History clopidogrel [Plavix] 75 mg PO QAM #0 05/25/18 10/27/19 History diclofenac sodium [Voltaren] 2 g TOPICAL QID PRN #0 05/25/18 10/27/19 History pantoprazole 40 mg PO QAM #0 05/25/18 10/27/19 History Novolin N NPH U-100 Insulin 10 - 30 unit SUBCUT BIDM 06/28/18 10/27/19 History Dulera 2 puff INHALATION BID 12/04/18 10/27/19 History docusate sodium [Colace] 100 mg PO BID 12/04/18 10/27/19 History verapamil 80 mg PO TID 12/04/18 10/27/19 History lisinopril 20 mg PO DAILY #30 tab 02/11/19 10/27/19 Rx aspirin 81 mg tablet,delayed 81 mg PO QAM #0 tab 07/09/19 10/27/19 History release atorvastatin 80 mg tablet 80 mg PO HS 07/09/19 10/27/19 History blood sugar diagnostic #10 ea 07/09/19 07/12/19 History diclofenac potassium 50 mg tablet 50 mg PO Q8H PRN tab 07/09/19 10/27/19 History hydrocortisone 1 %-pramoxine 1 % 1 appln WI QID PRN 07/09/19 10/27/19 History rectal foam insulin syringe-needle U-100 0.5 #1 ea 07/09/19 07/12/19 History mL 30 gauge x 1/2" lancets 33 gauge #100 ea 07/09/19 07/12/19 History metformin 500 mg tablet,extended 500 mg PO QPM 07/09/19 10/27/19 History release 24hr montelukast 10 mg tablet 10 mg PO HS 07/09/19 10/27/19 History metformin 1,000 mg PO QAM 09/04/19 10/27/19 History albuterol sulfate 2 puff INHALATION Q4 PRN 09/24/19 10/27/19 History bupropion HCl 150 mg PO BID 09/24/19 10/27/19 History ergocalciferol (vitamin D2) 50,000 unit PO WK 09/24/19 10/27/19 History [Vitamin D2] gabapentin 300 mg PO BID 09/24/19 10/27/19 History lidocaine [Lidoderm] 2 patch TOPICAL DAILY 09/24/19 10/27/19 History prochlorperazine maleate 10 mg PO Q6H PRN 09/24/19 10/27/19 History tiotropium bromide [Spiriva 2 puff INHALATION DAILY 09/24/19 10/27/19 History Respimat] Patient History Medical History Angina pectoris (Acute) Anxiety Arthritis of knee (Acute) Asthma Atrial tachycardia [facility] CAD (coronary artery disease) CHF (congestive heart failure) Chronic back pain Chronic obstructive pulmonary disease CSF leak Degeneration of cervical intervertebral disc (Acute) Depression Diabetes mellitus, type 2 (Chronic) IDDM External hemorrhoids (Acute) Fracture tibia/fibula (Resolved) LEFT WITH ORIF Frequent falls (Acute) GERD (gastroesophageal reflux disease) Hemiplegic migraine (Acute) Hyperlipidemia Hypertension Obstructive sleep apnea on CPAP Osteoarthritis Post traumatic stress disorder Transient ischemic attack (TIA) PLAVIX. FOLLOWS WITH PCP Urinary incontinence (Acute) Vitamin D deficiency (Acute) Surgical History Facial fracture (Resolved) (2014) WITH RECONSTRUCTION History of bilateral tubal ligation (Resolved) History of cardiac cath X2 STENTS - (~2010, IN [place], [place]). NO STENTS - ([facility] @ ~2014) History of colonoscopy (Resolved) History of esophagogastroduodenoscopy (EGD) (Resolved) History of heart artery stent (Resolved) X2 STENTS (2010) UNSURE OF KIND. NO STENT CARDS PER PT. History of mandibular surgery S/P left knee arthroscopy Status post right foot surgery (Resolved) Family History Mother Breast cancer Type 2 diabetes mellitus Father Diabetes Coronary heart disease Type 2 diabetes mellitus Myocardial infarction Family/Other Hypertension Social History Preferred Language: Albanian Communication Ability: Effective Visual Impairment: No Limitations Shearer Screen Measurer And Trimmer Required: No Beliefs That Will Affect Care: None marital status: Single Current Living Situation: Spouse Feels Safe at Home: Yes Smoking Status: Current every day smoker Tobacco Type: cigarettes ; Cigarettes Per Day: 20 ; Second Hand Exposure: No ; Hx Alcohol Use: No Hx Substance Use: No Physical Exam Physical Exam: General: Patient lying in bed, she repositions herself frequently. HEENT: Head is atraumatic, normocephalic. EOMs intact. Sclerae anicteric. Facies symmetric. No perioral cyanosis. Neck: No JVD. Carotid upstrokes +2 bilaterally without bruits. JVP is at the level of the clavicle sitting upright. Chest and Lungs: Clear to auscultation throughout all lung mohr, no wheezes, rales, or rhonchi. CVS: S1 and S2 are regular without murmurs, gallops, or rubs. PMI is nonpalpable. No lifts, heaves, or thrills. No abdominal aortic or renal bruits. Abdominal Exam: Bowel sounds present. No masses, organomegaly, or tenderness. Extremities: No clubbing, cyanosis, or edema. Intact posterior tibial and radial pulses bilaterally. Neurologic Exam: Patient is awake, alert, and oriented. Pleasant and cooperative. Answers questions appropriately. Speech is clear. Normal movement in all 4 extremities. Musculoskeletal Exam: No reproducible chest wall tenderness. EKG's have all show normal sinus rhythm with moderate voltage criteria for LVH, non specific T wave abnormalities. Serial cardiac enzymes negative x 3 Negative DSE 12/06/2018. CARDIAC CATHETERIZATION 04/03/2015: -- LMCA -- Angiographically normal. -- LAD -- Angiographically normal. -- LCx -- Co-dominant vessel, normal with possible distal stent - patent. -- RCA -- Co-dominant. Angiographically normal. Results & Data Vital Signs (Past 12 Hours) Vital Signs Temp Pulse Pulse Resp BP BP Pulse Ox 10/28/19 07:46 36.5 C 84 18 122/79 97 10/28/19 04:00 36.5 C 98 H 20 109/69 94 10/28/19 00:48 88 10/28/19 00:21 36.9 C 73 20 106/57 L 94 Laboratory Results Laboratory Results - last 24 hr 10/27/19 10/27/19 10/27/19 11:41 12:01 16:28 WBC RBC Hgb Hct MCV MCH MCHC RDW Std Deviation RDW Coeff of Majo Plt Count MPV VBG pH VBG pCO2 VBG pO2 VBG HCO3 VBG O2 Saturation VBG Base Excess Barometric Pressure Sodium Potassium Chloride Carbon Dioxide Anion Gap BUN Creatinine Est Cr Clr Drug Dosing Est GFR ( Amer) Est GFR (Non-Af Amer) BUN/Creatinine Ratio Glucose POC Glucose 93 295 H Calcium Total Bilirubin AST ALT Alkaline Phosphatase Troponin I < 0.015 Total Protein Albumin Globulin Albumin/Globulin Ratio 10/27/19 10/27/19 10/27/19 16:47 20:03 20:05 WBC RBC Hgb Hct MCV MCH MCHC RDW Std Deviation RDW Coeff of Majo Plt Count MPV VBG pH VBG pCO2 VBG pO2 VBG HCO3 VBG O2 Saturation VBG Base Excess Barometric Pressure Sodium Potassium Chloride Carbon Dioxide Anion Gap BUN Creatinine Est Cr Clr Drug Dosing Est GFR ( Amer) Est GFR (Non-Af Amer) BUN/Creatinine Ratio Glucose POC Glucose 128 H 154 H Calcium Total Bilirubin AST ALT Alkaline Phosphatase Troponin I < 0.015 Total Protein Albumin Globulin Albumin/Globulin Ratio 10/28/19 10/28/19 10/28/19 07:25 07:25 07:25 WBC 6.29 RBC 3.90 L Hgb 11.7 L Hct 37.5 MCV 96.2 MCH 30.0 MCHC 31.2 L RDW Std Deviation 51.0 H RDW Coeff of Majo 14.4 Plt Count 211 MPV 11.0 H VBG pH 7.38 VBG pCO2 43 VBG pO2 59 VBG HCO3 25 VBG O2 Saturation 89.8 VBG Base Excess -0.4 Barometric Pressure 729.4 Sodium 143 Potassium 4.1 Chloride 112 H Carbon Dioxide 24 Anion Gap 7.0 BUN 17 Creatinine 0.87 Est Cr Clr Drug Dosing 93.1 Est GFR ( Amer) 86.9 Est GFR (Non-Af Amer) 75.0 BUN/Creatinine Ratio 19.7 Glucose 102 H POC Glucose Calcium 8.9 Total Bilirubin 0.2 AST 14 L ALT 15 Alkaline Phosphatase 88 Troponin I Total Protein 6.5 Albumin 2.8 L Globulin 3.7 Albumin/Globulin Ratio 0.8 L 10/28/19 07:34 WBC RBC Hgb Hct MCV MCH MCHC RDW Std Deviation RDW Coeff of Majo Plt Count MPV VBG pH VBG pCO2 VBG pO2 VBG HCO3 VBG O2 Saturation VBG Base Excess Barometric Pressure Sodium Potassium Chloride Carbon Dioxide Anion Gap BUN Creatinine Est Cr Clr Drug Dosing Est GFR ( Amer) Est GFR (Non-Af Amer) BUN/Creatinine Ratio Glucose POC Glucose 115 H Calcium Total Bilirubin AST ALT Alkaline Phosphatase Troponin I Total Protein Albumin Globulin Albumin/Globulin Ratio Medications Administered Active Medications Generic Name Dose Route Start Last Admin Trade Name Freq PRN Reason Stop Dose Admin Acetaminophen 650 mg 10/27/19 06:07 10/28/19 08:22 Tylenol PO 11/26/19 06:06 650 mg Q4H PRN Administration mild pain or fever Albuterol 2.5 mg 10/27/19 06:07 Ventolin 0.083% 2.5mg/3ml NEB 11/26/19 06:06 Q4H PRN Shortness Of Breath Or Wheezing Aspirin 81 mg 10/27/19 09:00 10/28/19 08:14 Ecotrin Ectab PO 11/26/19 08:59 81 mg QAM KARLA Administration Atorvastatin Calcium 80 mg 10/27/19 21:00 10/27/19 21:21 Lipitor PO 11/26/19 20:59 80 mg HS KARLA Administration Bupropion HCl 150 mg 10/27/19 09:00 10/28/19 08:15 Wellbutrin-Sr PO 11/26/19 08:59 150 mg BID KARLA Administration Clopidogrel Bisulfate 75 mg 10/27/19 09:00 10/28/19 08:15 Plavix PO 11/26/19 08:59 75 mg QAM KARLA Administration Dextrose 25 - 50 ml 10/27/19 06:07 Dextrose 50% IV 11/26/19 06:06 UD PRN Hypoglycemia Protocol Protocol Docusate Sodium 100 mg 10/27/19 09:00 10/28/19 08:15 Colace PO 11/26/19 08:59 100 mg BID KARLA Administration Enoxaparin Sodium 40 mg 10/27/19 08:00 10/28/19 08:13 Lovenox SQ 11/26/19 07:59 40 mg Q24H KARLA Administration Famotidine 20 mg 10/27/19 09:00 10/28/19 08:15 Pepcid PO 11/26/19 08:59 20 mg BID KARLA Administration Gabapentin 300 mg 10/27/19 09:00 10/28/19 08:15 Neurontin PO 11/26/19 08:59 300 mg BID KARLA Administration Glucagon 1 mg 10/27/19 06:07 Glucagen SQ 11/26/19 06:06 UD PRN Hypoglycemia Protocol Protocol Glucose 4 - 8 tabs 10/27/19 06:07 Dex4 Glucose PO 11/26/19 06:06 UD PRN Hypoglycemia Protocol Protocol Glucose 15 - 30 gm 10/27/19 06:07 Glucose 40% PO 11/26/19 06:06 UD PRN Hypoglycemia Protocol Protocol Sodium Chloride 1,000 mls @ 100 mls/hr 10/27/19 12:45 10/27/19 23:56 Nss 1000ml IV 10/28/19 12:44 100 mls/hr .Q10H KARLA Administration Insulin Aspart 0 units 10/27/19 07:30 10/28/19 08:19 Novolog Flexpen SC 11/26/19 07:29 5 units ACHS KARLA Administration Insulin Human NPH 20 units 10/27/19 08:00 10/28/19 08:18 Novolin N Nph SC 11/26/19 07:59 20 units BIDM KARLA Administration Isosorbide Mononitrate 60 mg 10/27/19 09:00 10/28/19 08:15 Imdur Extended Rel PO 11/26/19 08:59 60 mg QAM KARLA Administration Lisinopril 20 mg 10/27/19 09:00 10/27/19 08:44 Zestril PO 11/26/19 08:59 20 mg DAILY KARLA Administration Miscellaneous 15 - 30 gm 10/27/19 06:07 Carbohydrates For Hypoglycemia PO 11/26/19 06:06 UD PRN Hypoglycemia Protocol Montelukast Sodium 10 mg 10/27/19 21:00 10/27/19 21:23 Singulair PO 11/26/19 20:59 10 mg HS KARLA Administration Morphine Sulfate 2 mg 10/27/19 06:07 10/27/19 21:27 Morphine Sulfate IV 11/10/19 06:06 2 mg Q3H PRN Administration Moderate Pain Morphine Sulfate 4 mg 10/27/19 06:07 10/28/19 08:11 Morphine Sulfate IV 11/10/19 06:06 4 mg Q4H PRN Administration Severe Pain Nitroglycerin 0.4 mg 10/27/19 06:07 Nitrostat SL 11/26/19 06:06 PRN PRN Chest Pain Ondansetron HCl 4 mg 10/27/19 06:07 Zofran IV 11/26/19 06:06 Q6H PRN nausea or vomiting Pantoprazole Sodium 40 mg 10/27/19 09:00 10/28/19 08:14 Protonix PO 11/26/19 08:59 40 mg QAM KARLA Administration Fluticasone/Salmeterol 1 puffs 10/27/19 09:00 10/28/19 08:16 Advair Diskus 500/50 INH 11/26/19 08:59 1 puffs BID KARLA Administration Protocol Tiotropium [place] 2 puffs 10/27/19 09:00 10/28/19 08:16 Spiriva INH 11/26/19 08:59 2 puffs DAILY KARLA Administration Verapamil HCl 80 mg 10/27/19 09:00 10/27/19 13:05 Calan PO 11/26/19 08:59 Not Given TID KARLA PG Care Time/CCT Total # of Minutes Spent Total Time Spent with Patient: Total time spent is greater than 50% in coordination of care (as documented) at patient's floor/unit and/or counseling patient: (1) CAD (coronary artery disease) Associated angina: with unstable angina Coronary Disease-Associated Artery/Lesion type: nome artery [place] vs. transplanted heart: nome heart Qualified Code(s): I25.110 - Atherosclerotic heart disease of nome coronary artery with unstable angina pectoris (2) Hyperlipidemia Hyperlipidemia type: unspecified Qualified Code(s): E78.5 - Hyperlipidemia, unspecified (3) Hypertension Hypertension type: essential hypertension Qualified Code(s): I10 - Essential (primary) hypertension
[2019-10-28] MEDS: SODIUM CHLORIDE 0.9% 1000ML 1,000 ML IV SCH (09:58)
[2019-10-28] MEDS ORDERED: LIDOCAINE 5% 1 PATCH TD SCH (12:15)
--- NOTE | 2019-10-28 14:48 | Electrocardiogram Report ---
Test Reason : Blood Pressure : / mmHG Vent. Rate : 078 BPM Atrial Rate : 078 BPM P-R Int : 164 ms QRS Dur : 082 ms QT Int : 424 ms P-R-T Axes : 035 006 023 degrees QTc Int : 483 ms Normal sinus rhythm Moderate voltage criteria for LVH, may be normal variant Nonspecific T wave abnormality Prolonged QT Abnormal ECG When compared with ECG of 27-OCT-2019 03:10, No significant change was found Confirmed by Dwayne Guy ([id number]) on 10/28/2019 2:47:31 PM Referred By: REFERRED SELF Confirmed By:Dwayne Guy
--- NOTE | 2019-10-28 15:14 | Electrocardiogram Report ---
Test Reason : Blood Pressure : / mmHG Vent. Rate : 083 BPM Atrial Rate : 083 BPM P-R Int : 156 ms QRS Dur : 082 ms QT Int : 386 ms P-R-T Axes : 032 002 020 degrees QTc Int : 453 ms Normal sinus rhythm Left ventricular hypertrophy Nonspecific T wave abnormality Abnormal ECG When compared with ECG of 27-OCT-2019 15:37, (unconfirmed) No significant change was found Confirmed by Dwayne Guy ([id number]) on 10/28/2019 3:13:59 PM Referred By: REFERRED SELF Confirmed By:Dwayne Guy
--- NOTE | 2019-10-28 17:49 | Discharge Summary ---
Date of Service October 28, 2019 Principal Diagnosis Musculoskeletal chest pain Discharge Exam Constitutional WD/WN, vitals as above Eyes EOM intact bilaterally; no conjunctival abnormality ENMT external ear and nose normal, oropharynx normal Neck trachea midline, no thyromegaly normal visual inspection Respiratory normal respiratory effort, lungs clear to auscultation no respiratory distress Cardiovascular RRR, no murmur, no edema Gastrointestinal (Abdomen) Inspection/Auscultation: abdomen normal to inspection; abdomen not distended Musculoskeletal no cyanosis or clubbing, extremities motor strength 5/5 Skin no rashes, warm and dry Neurologic moves all extremities and awake Psychiatric Orientation: alert, oriented to person and cooperative Discharge Data Allergies Allergy/AdvReac Type Severity Reaction Status Date / Time No Known Allergies Allergy Verified 10/27/19 03:25 Consultations 10/27/19 05:09 ED Decision to Admit Stat 10/27/19 14:18 Consult Cardiology Routine Hospital Course (1) Left-sided chest pain: Serial trops were negative. EKGs were negative for acute ischemia. - Seen by cardiology who did not feel it was cardiac in nature. - Attempted Toradol and lidocaine patch. The patient was chest pain free all afternoon even with ambulation around the halls. - Discharged with conservative measures - Sent script for lidocaine patch which she reports helped in the past, but insurance wouldn't pay for previously. She is also already on Voltaren and diclofenac. - Continue isosorbide & nitroglycerin. - Pain and nausea control (2) Chronic obstructive pulmonary disease: No exacerbation. - Continue prn albuterol nebs, Dulera, and Spiriva. (3) Hypertension: Continue lisinopril (4) Hyperlipidemia: Continue atorvastatin. (5) Diabetes mellitus, type 2: ADA diet Continue NPH at 20 units BID with meal Sliding scale fast acting insulin Hold metformin in event she may require dye load. (6) GERD (gastroesophageal reflux disease): Do not think this is GERD. - Continue pantoprazole and Pepcid (in lieu of Zantac). (7) CAD (coronary artery disease): Patient had 2 stents placed in 2011. Cath in 03/2015 showed patent stents. Dobutamine stress echo on 11/08 and 12/11 were both negative for ischemia. - Continue aspirin and Plavix. Total Time Total Time Spent Total Time Spent (In Minutes): 35 Discharge Plan Discharge Items Patient Disposition: Home - Self-Care Reason For Visit: CHEST PAIN Discharge Diagnosis: Musculoskeletal chest pain Activity: Resume your previous activity Non-emergency contact: Primary Care Provider and Medical Lab Technologist Call non-emergency contact if: your symptoms worsen and your pain is not controlled Follow-up/Referrals: Nita Torres MD [Primary Care Provider] - Diet: Heart Healthy Addtl Attending Provider Instructions: You were admitted for chest pain. Your troponins (heart tests) all looked normal and you did not have a heart attack. You were able to walk around without any chest pain. The cardiologists saw you and felt you were able to go home. Please use ibuprofen or your diclofenac pill if you have more chest pain. You can also try lidocaine patches (I sent some to the pharmacy.), hot/cold packs, or your topical Voltaran gel on your chest if it is sore. Pending Studies at Discharge: No Stand-Alone Forms: Call Back Authorization, [facility], Smoking Cessation Medications and DC Order Prescriptions: Continued isosorbide mononitrate 60 mg Tablet Extended Release 24 Hr 60 mg PO QAM Qty: 0 RF: 0 nitroglycerin [Nitrostat] 0.4 mg Tablet, Sublingual 0.4 mg Sublingual DIRECTED PRN (Reason: Chest Pain) Qty: 0 RF: 0 ranitidine HCl 150 mg Tablet 150 mg PO HS Qty: 0 RF: 0 clopidogrel [Plavix] 75 mg Tablet 75 mg PO QAM Qty: 0 RF: 0 pantoprazole 40 mg Tablet,Delayed Release (Dr/Ec) 40 mg PO QAM Qty: 0 RF: 0 diclofenac sodium [Voltaren] 1 % Gel 2 g TOPICAL QID PRN (Reason: Pain) Qty: 0 RF: 0 aspirin [Aspirin Low Dose] 81 mg tablet,delayed release (DR/EC) 81 mg PO QAM Qty: 0 RF: 0 atorvastatin 80 mg tablet 80 mg PO HS RF: 0 (DME) insulin syringe-needle U-100 [BD Insulin Syringe Ultra-Fine] 0.5 mL 30 gauge x 1/2" syringe See Dose Instructions .ROUTE .MEDSUPPLY Qty: 1 RF: 0 diclofenac potassium 50 mg tablet 50 mg PO Q8H PRN (Reason: Pain) RF: 0 metformin 500 mg tablet extended release 24hr 500 mg PO QPM RF: 0 montelukast 10 mg tablet 10 mg PO HS RF: 0 (DME) lancets [OneTouch Delica Lancets] 33 gauge misc See Dose Instructions .ROUTE .MEDSUPPLY Qty: 100 RF: 0 (DME) OneTouch Ultra Blue Test Strip strip See Dose Instructions .ROUTE .MEDSUPPLY Qty: 10 RF: 0 Proctofoam HC 1-1 % foam 1 appln WI QID PRN (Reason: Hemorrhoids) RF: 0 docusate sodium [Colace] 100 mg Capsule 100 mg PO BID RF: 0 verapamil 80 mg Tablet 80 mg PO TID RF: 0 Dulera 200-5 mcg/actuation Hfa Aerosol Inhaler 2 puff INHALATION BID RF: 0 metformin 500 mg Tablet 1,000 mg PO QAM RF: 0 Novolin N NPH U-100 Insulin 100 unit/mL Suspension 10 - 30 unit SUBCUT BIDM RF: 0 lisinopril 20 mg tablet 20 mg PO DAILY Qty: 30 RF: 2 ergocalciferol (vitamin D2) [Vitamin D2] 50,000 unit capsule 50,000 unit PO WK RF: 0 Spiriva Respimat 1.25 mcg/actuation Mist 2 puff INHALATION DAILY RF: 0 bupropion HCl 150 mg Tablet Sustained-Release 12 Hr 150 mg PO BID RF: 0 prochlorperazine maleate 10 mg Tablet 10 mg PO Q6H PRN (Reason: Nausea) RF: 0 gabapentin 300 mg Capsule 300 mg PO BID RF: 0 albuterol sulfate 90 mcg/actuation Hfa Aerosol Inhaler 2 puff INHALATION Q4 PRN (Reason: Shortness Of Breath Or Wheezing) RF: 0 Changed lidocaine [Lidoderm] 5 % adhesive patch,medicated 1 patch topical DAILY Qty: 30 RF: 0 Discharge Orders: Discharge Order (Routine); Ordered 10/28/19 Ordered By: Addy Sanders Admission Data Admit Date/Time: 10/27/19 05:22 Attending Provider: Addy Sanders Admit Provider: Miguel Land Primary Care Provider: Nita Torres Other Providers: Dwayne Guy ; Addy Sanders Other Interventions: Discharge Summary Assessment (RN) Last Done: 10/28/19 15:24 DC Date/Time DO NOT enter until pt leaves facility: 10/28/19 17:19
== END 2019-10-28 17:19 | disposition home or self-care (01) ==
LOC: 2W 03:06 → ED 03:06 → SUATTDRO 05:22 → 2W 05:42

== ENCOUNTER 2020-06-09 18:46 | Observation (INO) ==
[2020-06-09] MEDS ORDERED: MECLIZINE HCL 25 MG TAB PO STA (18:56)
[2020-06-09] MEDS ORDERED: ONDANSETRON INJ 2 MG/ML 2 ML VIAL IV STA (18:56)
[2020-06-09] MEDS ORDERED: DIAZEPAM 5 MG/ML INJ 10ML VIAL IV STA ×2 (18:56→22:45)
[2020-06-09] MEDS ORDERED: ALBUT/IPRATROP 3MG/0.5MG NEB 3 ML VIAL NEB STA (18:56)
--- NOTE | 2020-06-09 18:56 | Emergency Department Note ---
Impression & Plan Dizziness, Nausea & vomiting ED Provider Note INFORMANT: Patient ED PROVIDER(S): Alxe Cobb MD CHIEF COMPLAINT: Dizziness PLAN: Disposition: Admitted Condition: Good MEDICAL DECISION MAKING: Patient presented due to significant dizziness. She had an examination that seemed consistent with positional vertigo however she has an extensive medical history including TIA. Because of this she underwent MR imaging. She was treated with Zofran, meclizine, and Valium. Her laboratory studies including CBC, chemistry panel, troponin, and TSH were negative. Her ECG showed a normal sinus rhythm without ischemia or dysrhythmia. Monitoring was unremarkable. The patient had chronic findings on MRI/MRA. No acute process was noted. The patient was reassessed and was still dizzy. She was given a second dose of IV V alium. She rested. She was observed. She was doing somewhat better lying down and then an ambulatory trial was performed. She did not do well with this. She was extremely dizzy and unsteady. Because of this the patient is not safe to go home at this point time. Internal medicine was consulted. The patient will be admitted under the care of Dr. Haresh Jung for further management. Triage Nursing notes reviewed and agree them. Additional history obtained from her significant other Vital Signs: reviewed and remarkable for mild hypertension Differential diagnosis: Benign positional vertigo, dehydration, hypovolemia, anemia, tumor, infection, hypoglycemia, electrolyte abnormalities, cardiac sources, intracerebral event, toxicologic, neurologic, as well as other pathologies. Diagnostics interpreted by me: ECG:Rate: 83 Rhythm:Normal sinus [place]:Normal QRS:Normal ST segements:No elevation or depression Other:No PACs or PVCs. LVH. Left atrial enlargement Cardiac Monitoring: Cardiac monitoring ordered by me: The patient was placed on continuous cardiac monitoring and observed. It revealed a normal sinus rhythm at 77 beats per minute without ectopy or evidence of dysrhythmia. Imaging studies: MRI and MRA of the head and neck vasculature revealed chronic findings. Mild stenosis noted in the carotids. No acute process. Refer you to the EMR for further details. Consultation(s): [facility] HPI: The patient is a 54 year old female who presents to the Emergency Room with complaints of dizziness. This started 30 minutes ago while driving to the store in her motorized wheelchair and is persistent. The patient also notes the following associated symptoms, ANGELO, nausea and vomiting. Worse with head movement and sitting up. The patient has noted lying flat and still as relieving factors. Current pain is rated as 6/10. No hx of vertigo. Pt denies LOC, headache, fevers, chills, diaphoresis, visual changes, neck pain, chest pain, breathing difficulties, abdominal pain, back pain, melena, hematochezia, urinary symptoms, numbness, weakness, lymphadenopathy, rash, or other complaints. ROS: See above HPI for pertinent positives & negatives. A total of 10 systems reviewed and were otherwise negative. PAST MEDICAL HISTORY:See Below HTN, hyperlipidemia, CHF, TIA, CAD PAST SURGICAL HISTORY:See Below FAMILY HISTORY:See Below SOCIAL HISTORY:See Below no smoking HOME MEDICATIONS:See Below ALLERGIES:See Below VITALS:See Below PHYSICAL EXAMINATION: GENERAL: Awake, alert, well-appearing, in no distress HENT: Normocephalic, atraumatic. Oropharynx unremarkable. EYES: Normal conjunctiva. Sclera non-icteric. EOMI, mild nystagmus. NECK: Inspection normal. Non-tender. Supple. No nuchal rigidity. FROM. No masses. RESPIRATORY: Clear to auscultation. No wheezes. No rales. Normal respiratory effort. CARDIAC: Normal rate. Normal rhythm. HSM present. No rubs. Extremities warm and well perfused. Pulses equal. No JVD. GI: Soft, non-distended. No tenderness to palpation. No rebound or guarding. No masses. RECTAL: Deferred. MUSCULOSKELETAL: Atraumatic. Chest examination reveals no tenderness. The back is symmetrical on inspection without obvious abnormality. There is no CVA tenderness to palpation. No joint edema. LOWER EXTREMITIES: Calves are equal size bilaterally and non-tender. No edema. No discoloration. NEURO: Normal sensorium. No sensory or motor deficits noted. No drift. NML heel to haines and TANGELA. SKIN: No rash or jaundice noted. ED COURSE: Critical Care: None Alex Cobb MD Past Med/Surg History Medical History (Updated 06/09/20 @ 18:53 by Alex Cobb MD) Arthritis of knee CHF (congestive heart failure) Chronic back pain CSF leak Degeneration of cervical intervertebral disc External hemorrhoids Frequent falls TIA (transient ischemic attack) Urinary incontinence Vertebral artery stenosis Surgical History Facial fracture (2014) WITH RECONSTRUCTION History of bilateral tubal ligation History of cardiac cath X2 STENTS - (~2010, IN [place], [place]). NO STENTS - ([facility] @ ~2014) History of colonoscopy History of esophagogastroduodenoscopy (EGD) History of heart artery stent X2 STENTS (2010) UNSURE OF KIND. NO STENT CARDS PER PT. History of mandibular surgery S/P left knee arthroscopy S/p tibial fracture open treatment of Fx with plate/screws, Left leg Status post right foot surgery Family History Mother Breast cancer, Onset Age: 64 Type 2 diabetes mellitus Father Diabetes Coronary heart disease Type 2 diabetes mellitus Myocardial infarction, Onset Age: 52 Family/Other Hypertension sibling Denies family history of Ovarian cancer Social History Smoking Status: Never smoker Second Hand Exposure: No; Hx Alcohol Use: No Hx Substance Use: No Preferred Language: [place] Communication Ability: Effective Visual Impairment: No Limitations Ophthalmology Technician Required: No Beliefs That Will Affect Care: None marital status: Single Current Living Situation: Spouse Feels Safe at Home: Yes Allergies Allergies Allergy/AdvReac Type Severity Reaction Status Date / Time No Known Allergies Allergy Verified 06/09/20 21:43 Home Meds Home Medications Medication Instructions Recorded Confirmed isosorbide mononitrate 60 mg PO QAM #0 12/14/16 06/09/20 nitroglycerin [Nitrostat] 0.4 mg SUBLINGUAL DIRECTED PRN 12/14/16 06/09/20 #0 btl clopidogrel [Plavix] 75 mg PO QAM #0 05/25/18 06/09/20 pantoprazole 40 mg PO QAM #0 05/25/18 06/09/20 Novolin N NPH U-100 Insulin 10 - 30 unit SUBCUT AC 06/28/18 06/09/20 Dulera 2 puff INHALATION BID 12/04/18 06/09/20 docusate sodium [Colace] 100 mg PO BID 12/04/18 06/09/20 aspirin 81 mg tablet,delayed 81 mg PO QAM #0 tab 07/09/19 06/09/20 release atorvastatin 80 mg tablet 80 mg PO HS 07/09/19 06/09/20 montelukast 10 mg tablet 10 mg PO HS 07/09/19 06/09/20 prochlorperazine maleate 10 mg PO Q6H PRN 09/24/19 06/09/20 acetaminophen [Tylenol Extra 1,000 mg PO Q6H PRN 12/23/19 06/09/20 Strength] lisinopril 20 mg PO QAM 12/23/19 06/09/20 metformin 500 mg PO TIDM 12/23/19 06/09/20 lidocaine [Lidoderm] 1 patch TOPICAL DAILY PRN 06/09/20 06/09/20 Previous Rx's Medication Instructions Recorded gabapentin 600 mg tablet 300 mg PO BID #90 tab 11/04/19 verapamil 80 mg tablet 80 mg PO TID #90 tab 11/04/19 hydrocortisone 1 %-pramoxine 1 % 1 appln RI QID PRN #10 gm 12/03/19 rectal foam albuterol sulfate 0.63 mg/3 mL 0.63 mg INH Q6H PRN #75 ml 03/24/20 solution for nebulization albuterol sulfate 90 mcg/actuation 2 puffs INH Q6H PRN #8 gm 03/24/20 aerosol inhaler diclofenac sodium 1 % topical gel 2 g TOPICAL QID PRN #100 gm 03/24/20 hydrocodone-acetaminophen [[place]] 1 tab PO Q6H PRN #10 tab 05/22/20 Results & Data (ED) Vital Signs Vital Signs - 24 hr 06/09/20 19:00 06/09/20 19:09 06/09/20 19:17 Temperature 36.4 C L Temperature Source Oral Pulse Rate 98 H Pulse Rate [Right Finger] Pulse Rhythm [Right Finger] Pulse Strength [Right Finger] Respiratory Rate 22 Respiratory Effort / Characteristics Respiratory Depth Blood Pressure 139/108 H Blood Pressure [Left Arm] Blood Pressure Mean 118 Blood Pressure Mean [Left Arm] Blood Pressure Position [Left Arm] Pulse Oximetry 99 99 99 Oxygen Delivery Method Room Air Room Air Room Air Sepsis Recent Fever Within 48 Hours No Sepsis New/Unexplained Change in Mental Status No Sepsis Action Taken by Nursing No Action Required 06/09/20 19:20 06/09/20 21:06 06/09/20 22:50 Temperature Temperature Source Pulse Rate Pulse Rate [Right Finger] 90 90 86 Pulse Rhythm [Right Finger] Pulse Strength [Right Finger] Respiratory Rate 18 16 20 Respiratory Effort / Characteristics Non-Labored Spontaneous Respiratory Depth Blood Pressure Blood Pressure [Left Arm] 130/78 128/89 Blood Pressure Mean Blood Pressure Mean [Left Arm] 95 102 Blood Pressure Position [Left Arm] Pulse Oximetry 93 97 98 Oxygen Delivery Method Room Air Room Air Room Air Sepsis Recent Fever Within 48 Hours Sepsis New/Unexplained Change in Mental Status Sepsis Action Taken by Nursing 06/10/20 00:27 Temperature Temperature Source Pulse Rate Pulse Rate [Right Finger] 99 H Pulse Rhythm [Right Finger] Regular Pulse Strength [Right Finger] Normal Respiratory Rate 19 Respiratory Effort / Characteristics Non-Labored Spontaneous Respiratory Depth Normal Blood Pressure Blood Pressure [Left Arm] 136/92 Blood Pressure Mean Blood Pressure Mean [Left Arm] 106 Blood Pressure Position [Left Arm] Lying Pulse Oximetry 98 Oxygen Delivery Method Room Air Sepsis Recent Fever Within 48 Hours Sepsis New/Unexplained Change in Mental Status Sepsis Action Taken by Nursing Laboratory Data Result diagrams: 06/09/20 19:38 06/09/20 19:38 Lab Results 06/09/20 06/09/20 Range/Units 19:38 19:38 WBC 8.78 (4.8-10.8) K/uL RBC 4.45 (4.2-5.4) M/uL Hgb 13.5 (12.0-16.0) g/dL Hct 41.9 (37-47) % MCV 94.2 (80-100) fL MCH 30.3 (25-34) pg MCHC 32.2 (32-36) g/dL RDW Std Deviation 47.6 H (36.4-46.3) fL RDW Coeff of Majo 13.8 (11.5-14.5) % Plt Count 232 (130-400) K/uL MPV 11.3 H (7.4-10.4) fL Immature Gran % (Auto) 0.2 % Neut % (Auto) 53.7 % Lymph % (Auto) 36.0 % [place] % (Auto) 9.0 % Eos % (Auto) 1.0 % Baso % (Auto) 0.1 % Neut # (Auto) 4.71 (1.4-6.5) K/uL Lymph # (Auto) 3.16 (1.2-3.4) K/uL [place] # (Auto) 0.79 H (0.11-0.59) K/uL Eos # (Auto) 0.09 (0-0.5) K/uL Baso # (Auto) 0.01 (0-0.2) K/uL Immature Gran # (Auto) 0.02 (0.00-0.02) K/uL Sodium 144 (136-145) mmol/L Potassium 4.0 (3.5-5.1) mmol/L Chloride 111 H (98-107) mmol/L Carbon Dioxide 26 (21-32) mmol/L Anion Gap 6.0 (3-11) BUN 14 (7-18) mg/dl Creatinine 0.93 (0.6-1.2) mg/dl Est Cr Clr Drug Dosing 87.2 ml/min Est GFR ( Amer) 80.2 Est GFR (Non-Af Amer) 69.2 BUN/Creatinine Ratio 14.9 (10-20) Glucose 102 H (70-99) mg/dl Calcium 9.3 (8.5-10.1) mg/dl Magnesium 2.2 (1.8-2.4) mg/dl Total Bilirubin 0.2 (0.2-1) mg/dl AST 17 (15-37) U/L ALT 20 (12-78) U/L Alkaline Phosphatase 108 (45-117) U/L Troponin I < 0.015 (0-0.045) ng/ml Total Protein 7.4 (6.4-8.2) gm/dl Albumin 3.3 L (3.4-5.0) gm/dl Globulin 4.1 H (2.5-4.0) gm/dl Albumin/Globulin Ratio 0.8 L (0.9-2) TSH 1.180 (0.300-4.500) uIu/ml Specimen Hemolysis Administered Medications Discontinued Medications Albuterol (Albut/Ipratrop 3mg/0.5mg Neb 3 Ml Vial) 3 ml NEB NOW STA Stop: 06/09/20 18:57 Last Admin: 06/09/20 19:20 Dose: 3 ml Documented by: [id number] Diazepam (Diazepam 5 Mg/Ml Inj 10ml Vial) 5 mg IV NOW STA Stop: 06/09/20 18:57 Last Admin: 06/09/20 19:30 Dose: 5 mg Documented by: [id number] Diazepam (Diazepam 5 Mg/Ml Inj 10ml Vial) 5 mg IV NOW STA Stop: 06/09/20 22:46 Last Admin: 06/09/20 22:49 Dose: 5 mg Documented by: [id number] Gadobutrol (Gadobutrol 65ml Vial) 11.3 ml IV ONCE ONE Stop: 06/09/20 20:36 Last Admin: 06/09/20 20:36 Dose: 11.3 ml Documented by: [id number] Sodium Chloride (Nss) 500 mls @ 999 mls/hr IV .Q31M KARLA Stop: 06/09/20 19:30 Last Infusion: 06/09/20 20:04 Dose: 0 mls/hr Documented by: [id number] Admin: 06/09/20 19:30 Dose: 999 mls/hr Documented by: [id number] Meclizine HCl (Meclizine Hcl 25 Mg Tab) 25 mg PO NOW STA Stop: 06/09/20 18:57 Last Admin: 06/09/20 19:30 Dose: 25 mg Documented by: [id number] Ondansetron HCl (Ondansetron Inj 2 Mg/Ml 2 Ml Vial) 4 mg IV NOW STA Stop: 06/09/20 18:57 Last Admin: 06/09/20 19:30 Dose: 4 mg Documented by: [id number] Discharge Plan Visit Data Chief Complaint: Dizziness Stated Complaint: dizziness ED Provider: Alex Cobb Discharge Problem: Dizziness, Nausea & vomiting Prescriptions Prescriptions: No Action isosorbide mononitrate 60 mg Tablet Extended Release 24 Hr 60 mg PO QAM Qty: 0 RF: 0 nitroglycerin [Nitrostat] 0.4 mg Tablet, Sublingual 0.4 mg Sublingual DIRECTED PRN (Reason: Chest Pain) Qty: 0 RF: 0 clopidogrel [Plavix] 75 mg Tablet 75 mg PO QAM Qty: 0 RF: 0 pantoprazole 40 mg Tablet,Delayed Release (Dr/Ec) 40 mg PO QAM Qty: 0 RF: 0 aspirin [Aspirin Low Dose] 81 mg tablet,delayed release (DR/EC) 81 mg PO QAM Qty: 0 RF: 0 Proctofoam HC 1-1 % foam 1 appln RI QID PRN (Reason: Hemorrhoids) Qty: 10 RF: 5 albuterol sulfate 90 mcg/actuation HFA aerosol inhaler 2 puffs INH Q6H PRN (Reason: shortness of breath or wheezing) Qty: 8 RF: 0 diclofenac sodium [Voltaren] 1 % gel 2 g TOPICAL QID PRN (Reason: Pain) Qty: 100 RF: 5 albuterol sulfate 0.63 mg/3 mL solution for nebulization 0.63 mg INH Q6H PRN (Reason: shortness of breath or wheezing) Qty: 75 RF: 1 verapamil 80 mg tablet 80 mg PO TID Qty: 90 RF: 5 gabapentin 600 mg tablet 300 mg PO BID Qty: 90 RF: 2 atorvastatin 80 mg tablet 80 mg PO HS RF: 0 montelukast 10 mg tablet 10 mg PO HS RF: 0 docusate sodium [Colace] 100 mg Capsule 100 mg PO BID RF: 0 Dulera 200-5 mcg/actuation Hfa Aerosol Inhaler 2 puff INHALATION BID RF: 0 metformin 500 mg Tablet 500 mg PO TIDM RF: 0 acetaminophen [Tylenol Extra Strength] 500 mg Tablet 1,000 mg PO Q6H PRN (Reason: Pain) RF: 0 lisinopril 20 mg tablet 20 mg PO QAM RF: 0 hydrocodone-acetaminophen [[place]] 5-325 mg tablet 1 tab PO Q6H PRN (Reason: pain) Qty: 10 RF: 0 Novolin N NPH U-100 Insulin 100 unit/mL Suspension 10 - 30 unit SUBCUT AC RF: 0 prochlorperazine maleate 10 mg Tablet 10 mg PO Q6H PRN (Reason: Nausea) RF: 0 lidocaine [Lidoderm] 5 % adhesive patch,medicated 1 patch topical DAILY PRN (Reason: Pain) RF: 0
[2020-06-09] MEDS ORDERED: SODIUM CHLORIDE 0.9% 500 ML IV SCH (19:00)
[2020-06-09 19:45] LABS: Basophils # (auto) 0.01 K/uL (0-0.2); Basophils % (auto) 0.1 %; Eosinophils # (auto) 0.09 K/uL (0-0.5); Hematocrit (blood only) 41.9 % (37-47); Hemoglobin 13.5 g/dL (12.0-16.0); Immature Granulocytes # (auto) 0.02 K/uL (0.00-0.02); Immature Granulocytes % (auto) 0.2 %; Lymphocytes # (auto) 3.16 K/uL (1.2-3.4); Mean Corpuscular Hemoglobin 30.3 pg (25-34); Mean Corpuscular Hgb Conc 32.2 g/dL (32-36); Mean Corpuscular Volume 94.2 fL (80-100); Mean Platelet Volume 11.3 fL (7.4-10.4); Monocytes # (auto) 0.79 K/uL (0.11-0.59); Neutrophils # (auto) 4.71 K/uL (1.4-6.5); Neutrophils % (auto) 53.7 %; Platelet Count 232 K/uL (130-400); RDW Coefficient of Variation 13.8 % (11.5-14.5); RDW Standard Deviation 47.6 fL (36.4-46.3); Red Blood Count 4.45 M/uL (4.2-5.4); White Blood Count 8.78 K/uL (4.8-10.8)
[2020-06-09 20:04] LABS: Alanine Aminotransferase 20 U/L (12-78); Albumin Level 3.3 gm/dl (3.4-5.0); Aspartate Aminotransferase 17 U/L (15-37); BUN Creatinine Ratio 14.9 (10-20); Blood Urea Nitrogen 14 mg/dl (7-18); Calcium 9.3 mg/dl (8.5-10.1); Carbon Dioxide 26 mmol/L (21-32); Chloride 111 mmol/L (98-107); Creatinine Clr Calc Pharmacy 87.2 ml/min; Est GFR (African American) 80.2; Est GFR (Non-African American) 69.2; Glucose 102 mg/dl (70-99); Magnesium 2.2 mg/dl (1.8-2.4); Sodium 144 mmol/L (136-145)
[2020-06-09 20:16] LABS: Albumin Globulin Ratio 0.8 (0.9-2); Alkaline Phosphatase 108 U/L (45-117); Bilirubin,Total 0.2 mg/dl (0.2-1); Globulin 4.1 gm/dl (2.5-4.0); Total Protein 7.4 gm/dl (6.4-8.2); Troponin I < 0.015 ng/ml (0-0.045)
--- NOTE | 2020-06-09 20:29 | Magnetic Resonance Report ---
MR ANGIOGRAPHY OF THE [place] NO CONTRAST CLINICAL HISTORY: dizziness, vomiting, headache COMPARISON STUDY: 03/02/2018 A 3-D [id number] MR angiographic sequence of the [place] was performed. Both the source and projection images were reviewed. There is no evidence of major intracranial branch occlusion. There is a stable less than 50% percent stenosis of the left carotid siphon. There are no lesions suspicious for aneurysm. There is hypoplasi a of the left A1 segment. There is a stable right frontal scalp lipoma IMPRESSION: 1. No acute findings 2. Stable less than 50% stenosis of the left carotid siphon 3. Stable right frontal scalp lipoma 4. No evidence of aneurysm. No evidence of major intracranial branch occlusion. ACT 112: Negative or not required by law. Electronically signed by: Gómez Verma M.D. 06/09/2020 8:28 PM
[2020-06-09] MEDS ORDERED: GADOBUTROL 65ML VIAL IV ONE (20:35)
--- NOTE | 2020-06-09 20:41 | Magnetic Resonance Report ---
MRI OF THE BRAIN WITHOUT CONTRAST CLINICAL HISTORY: dizziness, vomiting COMPARISON STUDY: February 2018, March 2015 FINDINGS: Sagittal T1, axial diffusion, proton density and T2 weighted axial, coronal FLAIR, and axial T1-weigh bubba images were acquired. No intra or extra-axial mass lesions are visualized Axial diffusion-weighted images reveal no evidence of acute or subacute infarction. There is no evidence of ventricular dilatation. Proton density T2-weighted and FLAIR images reveal there is a stable 4 mm focus of increased signal w ithin the right frontal white matter. This is of doubtful clinical significance given the 5 years sta bility. There are minimal foci of increased T2 signal within the mastoids,, similar to the prior stud y and likely on a chronic inflammatory basis. There is a stable focus of increased signal within the region of the right posterior limb of the internal capsule. This could represent a dilated perivascul ar space or old lacunar infarct. There is a persistent right frontal scalp lipoma There are no abnormal flow voids. IMPRESSION: No change from the preceding study. No acute intracranial findings. ACT 112: Negative or not required by law. Electronically signed by: Gómez Verma M.D. 06/09/2020 8:40 PM
--- NOTE | 2020-06-10 01:19 | History & Physical Report ---
Date of Service June 10, 2020 Assessment & Plan (1) Vertigo: Deb is a 54-year-old female with a past medical history of asthma, hypertension, hyperlipidemia, chronic obstructive pulmonary disease, and obesity, atrial tachycardia, PTSD, type 2 diabetes, GERD, OA, and CAD who presents with acute onset of vertigo 12 hours prior to admission. Vertigo suspect labyrinthitis versus BPPV MRI/MRA performed in ED without acute findings Positive Pallavi-Hallpike Symptoms unresolved with bilateral Shanika Patient not improved with meclizine and Valium given on arrival to ED Patient discussed that with lack of concerning findings on MRI/MRA and her otherwise benign physical exam her symptoms are appropriate to follow-up as outpatient. Patient reports that she "cannot function at home "with the dizziness and would like to be admitted for observation. Continue meclizine, admit for observation. Neuro checks every 4 hours Suspect patient may have BPPV versus labyrinthitis, may take several days to resolve. No other neurologic findings on exam. Observe at this time. CAD with history of atrial tachycardia Continue aspirin daily Continue atorvastatin daily Continue Plavix daily Continue lisinopril Continue verapamil GERD Famotidine as needed Type 2 diabetes Hold BLOCK PILER oral anti-glycemic's Weight-based SSI Glucose checks AC/at bedtime COPD, SMITA Albuterol every 6 as needed Continue Dulera Hypertension Continue verapamil, lisinopril as above DVT prophylaxis: Heparin weight-based subcu Diet: Heart healthy, diabetic CODE STATUS: Full code Disposition: [facility]Sur observation (2) Dizziness: (3) Hemiplegic migraine: (4) Obstructive sleep apnea on CPAP: (5) GERD (gastroesophageal reflux disease): (6) Depression: (7) Atrial tachycardia: (8) Anxiety: History of Present Illness Chief Complaint: Dizziness Primary Care Provider: Nita Torres MD Deb was home all day and feeling well. her came home from work and they went out to the store. She got in her power chair, and she was very dizzy when she sat in it. She rode the powerchair through the store. Her head then 'started spinning and getting worse.' She had an episode of nausea and started to return home when she had sudden onset of vomiting. Her head kept spinning and she had two more episodes of vomiting, nonbloody and nonbilious. She returned home and layed on the couch, but 'my head was spinning so bad I had to lay on the floor.' She had one episode of vomiting, then her symptoms started to improve when she was laying on the floor. She waiting for some time, but when she sat up she because dizzy and had one more episode of voming. She then layed down on bed and felt OK, but everytime she sat up or turned her head she viktoria denly got dizzy again. She has never had an episode like this before. Her brother was hospitalized with similar symptoms and recovered normally, and who has no other health problems.No recent illness. No fevers, chills, sweats. She had a slight cough a few days which was normal for her with her asthma. No worsening. no shortness of breath or congestion. She reports she gets ear infections almost every year, but has not had one recently and has no ear pain at time of HPI. No hearing change. At time of HPI she feels 'ok'. No numbness, tingling, or weakness. Medication: Last took her medications Monday. MedHx: Reviewed SurgicalHx:Reviewed Allergies: Reviewed Social: Rare alcohol use, no tobacco use, no marijuana use. Lives at home with her . Allergies Allergy/AdvReac Type Severity Reaction Status Date / Time No Known Allergies Allergy Verified 06/09/20 21:43 Home Medications Home Medications Medication Instructions Recorded Confirmed Type isosorbide mononitrate 60 mg PO QAM #0 12/14/16 06/09/20 History nitroglycerin [Nitrostat] 0.4 mg SUBLINGUAL DIRECTED PRN 12/14/16 06/09/20 History #0 btl clopidogrel [Plavix] 75 mg PO QAM #0 05/25/18 06/09/20 History pantoprazole 40 mg PO QAM #0 05/25/18 06/09/20 History Novolin N NPH U-100 Insulin 10 - 30 unit SUBCUT AC 06/28/18 06/09/20 History Dulera 2 puff INHALATION BID 12/04/18 06/09/20 History docusate sodium [Colace] 100 mg PO BID 12/04/18 06/09/20 History aspirin 81 mg tablet,delayed 81 mg PO QAM #0 tab 07/09/19 06/09/20 History release atorvastatin 80 mg tablet 80 mg PO HS 07/09/19 06/09/20 History montelukast 10 mg tablet 10 mg PO HS 07/09/19 06/09/20 History prochlorperazine maleate 10 mg PO Q6H PRN 09/24/19 06/09/20 History gabapentin 600 mg tablet 300 mg PO BID #90 tab 11/04/19 06/09/20 Rx verapamil 80 mg tablet 80 mg PO TID #90 tab 11/04/19 06/09/20 Rx hydrocortisone 1 %-pramoxine 1 % 1 appln MA QID PRN #10 gm 12/03/19 06/09/20 Rx rectal foam acetaminophen [Tylenol Extra 1,000 mg PO Q6H PRN 12/23/19 06/09/20 History Strength] lisinopril 20 mg PO QAM 12/23/19 06/09/20 History metformin 500 mg PO TIDM 12/23/19 06/09/20 History albuterol sulfate 0.63 mg/3 mL 0.63 mg INH Q6H PRN #75 ml 03/24/20 06/09/20 Rx solution for nebulization albuterol sulfate 90 mcg/actuation 2 puffs INH Q6H PRN #8 gm 03/24/20 06/09/20 Rx aerosol inhaler diclofenac sodium 1 % topical gel 2 g TOPICAL QID PRN #100 gm 03/24/20 06/09/20 Rx hydrocodone-acetaminophen [[place]] 1 tab PO Q6H PRN #10 tab 05/22/20 06/09/20 Rx lidocaine [Lidoderm] 1 patch TOPICAL DAILY PRN 06/09/20 06/09/20 History Past Med/Surg History Medical History (Updated 06/10/20 @ 01:39 by Juanito Moise MD) Arthritis of knee CHF (congestive heart failure) Chronic back pain CSF leak Degeneration of cervical intervertebral disc External hemorrhoids Frequent falls TIA (transient ischemic attack) Urinary incontinence Vertebral artery stenosis Surgical History Facial fracture (2014) WITH RECONSTRUCTION History of bilateral tubal ligation History of cardiac cath X2 STENTS - (~2010, IN [place], [place]). NO STENTS - ([facility] @ ~2014) History of colonoscopy History of esophagogastroduodenoscopy (EGD) History of heart artery stent X2 STENTS (2010) UNSURE OF KIND. NO STENT CARDS PER PT. History of mandibular surgery S/P left knee arthroscopy S/p tibial fracture open treatment of Fx with plate/screws, Left leg Status post right foot surgery Family History Mother Breast cancer, Onset Age: 64 Type 2 diabetes mellitus Father Diabetes Coronary heart disease Type 2 diabetes mellitus Myocardial infarction, Onset Age: 52 Family/Other Hypertension sibling Denies family history of Ovarian cancer Social History Smoking Status: Former smoker Second Hand Exposure: No; Hx Alcohol Use: No Hx Substance Use: No Preferred Language: [place] Communication Ability: Effective Visual Impairment: No Limitations [employer] Teacher Required: No Beliefs That Will Affect Care: None marital status: Single Current Living Situation: Spouse Feels Safe at Home: Yes Review of Systems Review of Systems: All systems reviewed & are unremarkable except as noted in HPI & below Physical Exam Physical Exam: General: A&Ox3. NAD. Cooperative. HEENT: Atraumatic, normocephalic. Pulm: CTAB A&P. -wheezes, -rales, -rhonchi. Symmetrical chest rise. No increase work of breathing. No respiratory distress. Cardiac: RRR, -mrg. Radial pulses intact and symmetrical. Abdominal: Obese, nontender, nondistended, soft. BS present. CN II: Visual mohr are full to confrontation. Pupils are equal and react to light and accomidation. Visual acuity grossly intact. CN III, IV, : At primary gaze, there is no eye deviation. No visual field cuts. Pallavi-Hallpike produces horizontal nystagmus which extinguishes after 2-3 beats and induces vertigo. Bilateral Shanika unsuccessful in resolving vertigo CN V: Facial sensation is intact to soft touch in all 3 divisions bilaterally. CN VII: No facial asymmetry, full strength to eyebrow raise, smile, eye close, and cheek puff. CN VII: Hearing is grossly intact. CN IX, X: Palate elevates symmetrically. Phonation is normal without dysarthria. CN XI: Head turning and shoulder shrug are intact CN XII: Tongue protrudes midline. Strength: RUE: Shoulder flexion/extension/internal rotation/external rotation, elbow flexion/extension, finger flexion/extension, social worker school strength, interosseous 5/5 LUE: Shoulder flexion/extension/internal rotation/external rotation, elbow flexion/extension, finger flexion/extension, social worker school strength, interosseous 5/5 RLE: Hip flexion, knee flexion/extension, ankle plantar flexion/dorsiflexion 5/5 LLE: Hip flexion, knee flexion/extension, ankle plantar flexion/dorsiflexion 5/5 Results & Data Results & Data ([facility]) Vital Signs (Past 12 Hours) Vital Signs Temp Pulse Pulse Resp BP BP Pulse Ox 06/10/20 00:27 99 H 19 136/92 98 06/09/20 22:50 86 20 128/89 98 06/09/20 21:06 90 16 130/78 97 06/09/20 19:20 90 18 93 06/09/20 19:17 36.4 C L 98 H 22 139/108 H 99 06/09/20 19:09 99 06/09/20 19:00 99 Supervising Physician Co-Signing Physician Notes Attending addendum: I have physically seen this patient, have supervised the medical residents activities, and agree with the H&P unless as otherwise noted. Assessment and Plan: Intractable vertigo- Main differential is labyrinthitis versus BPPV. MRI of brain and MRA's normal Positive Pallavi-Hallpike maneuver Patient has ambulatory dysfunction chronically, and feels that she cannot function at home, and therefore will be admitted. CAD/atrial tachycardia- Continue aspirin, clopidogrel, lisinopril, verapamil and atorvastatin. Diabetes mellitus- Hold metformin. Hold Novolin NPH that she is using as needed before meals Placed on Accu-Cheks before meals and at bedtime with NovoLog coverage per scale. Remainder of orders and notations as noted Resident Activity Tracking Resident Involvement: Resident Care Provided Care Provided: Adult Hospital Medicine (1) Depression Depression Type: unspecified Qualified Code(s): F32.9 - Major depressive disorder, single episode, unspecified (2) GERD (gastroesophageal reflux disease) Esophagitis presence: esophagitis presence not specified Qualified Code(s): K21.9 - Gastro-esophageal reflux disease without esophagitis
[2020-06-10] MEDS ORDERED: DICLOFENAC SOD 1% GEL 100 GM TUBE EXT PRN (03:13)
[2020-06-10] MEDS ORDERED: CARBOHYDRATES FOR HYPOGLYCEMIA PO PRN (03:13)
[2020-06-10] MEDS ORDERED: ACETAMINOPHEN 500 MG TAB PO PRN (03:13)
[2020-06-10] MEDS ORDERED: GLUCOSE 10 TABS/TUBE PO PRN (03:13)
[2020-06-10] MEDS ORDERED: GLUCAGON FOR INJ 1 MG VIAL SQ PRN (03:13)
[2020-06-10] MEDS ORDERED: MECLIZINE HCL 25 MG TAB PO PRN (03:13)
[2020-06-10] MEDS ORDERED: DEXTROSE 50% 50 ML SYRINGE IV PRN (03:13)
[2020-06-10] MEDS ORDERED: GLUCOSE 40% GEL 15 GM TUBE PO PRN (03:13)
[2020-06-10] MEDS: HEPARIN SOD 5,000 UNIT/0.5 ML VIAL SQ SCH ×3 (06:19→21:40)
[2020-06-10] MEDS: FLUTICASONE/VILANTEROL 100/25MCG 14 PUFFS/INHALER INH SCH (07:41)
--- NOTE | 2020-06-10 07:41 | Magnetic Resonance Report ---
NECK CTA HISTORY: dizziness, vomiting, headache TECHNIQUE: Multiaxial CT images of the neck were performed following the intravenous administration o f contrast to evaluate the major cervical vessels. Maximum intensity projection images were also obta ined. All measurements were calculated based on NASCET criteria. A dose lowering technique was utili zed adhering to the principles of ALARA. COMPARISON STUDY: Neck MRA 12/27/2015. FINDINGS: The aortic arch and proximal great vessels are widely patent. Bilateral carotid bifurcatio n atherosclerosis. This results in approximately 50% stenosis at the proximal right internal carotid artery and the bilateral external carotid arteries. No significant stenosis within the left internal carotid artery. The bilateral common carotid and vertebral arteries appear patent. IMPRESSION: 1. Approximately 50% stenosis of the proximal right internal carotid artery and bilateral external ca rotid arteries. 2. No significant stenosis within the left carotid arteries. ACT 112: Negative or not required by law. Electronically signed by: Octaviano Garcia M.D. 06/10/2020 7:40 AM
[2020-06-10] MEDS: PANTOprazole 40 MG TAB PO SCH (07:42)
[2020-06-10] MEDS: VERAPAMIL HCL 40 MG TAB PO SCH ×3 (07:42→21:37)
[2020-06-10] MEDS: CLOPIDOGREL BISULFATE 75 MG TAB PO SCH (07:42)
[2020-06-10] MEDS: ISOSORBIDE MONO EXTENDED REL 60 MG TABCR PO SCH (07:43)
[2020-06-10] MEDS: lisinopriL 20 MG TAB PO SCH (07:43)
[2020-06-10] MEDS: HYDROCODONE/ACETAMOPHEN 5/325MG TAB PO PRN ×3 (07:50→21:49)
[2020-06-10] MEDS ORDERED: GABAPENTIN 600 MG TAB PO SCH (09:00)
[2020-06-10 09:04] LABS: Appearance Urine Clear (Clear); Bilirubin Urine Negative (Negative); Blood Urine Negative (Negative); Color Urine Dark Yellow; Glucose Urine UA Negative (Negative); Ketones Urine Negative (Negative); Leukocyte Esterase Urine Negative (Negative); Nitrite Urine Negative (Negative); Protein Urine Negative (Negative); Specific Gravity Urine 1.035 (1.000-1.030); Urobilinogen Urine Negative (Negative)
[2020-06-10] MEDS: ALBUT/IPRATROP 3MG/0.5MG NEB 3 ML VIAL NEB PRN ×2 (09:15→21:55)
[2020-06-10] MEDS: INSULIN GLARGINE SOLOSTAR 100 UNITS/ML 3 ML PEN SC SCH ×2 (09:26→21:39)
[2020-06-10] MEDS: INSULIN ASPART 100 UNITS/ML 3 ML PEN SC SCH ×4 (09:27→21:39)
--- NOTE | 2020-06-10 12:07 | Electrocardiogram Report ---
Test Reason : Blood Pressure : / mmHG Vent. Rate : 083 BPM Atrial Rate : 083 BPM P-R Int : 158 ms QRS Dur : 086 ms QT Int : 408 ms P-R-T Axes : 040 015 040 degrees QTc Int : 479 ms Normal sinus rhythm Possible Left atrial enlargement Left ventricular hypertrophy Abnormal ECG When compared with ECG of 23-DEC-2019 11:53, No significant change was found Confirmed by Dwayne Guy ([id number]) on 06/10/2020 12:06:39 PM Referred By: REFERRED SELF Confirmed By:Dwayne Guy
--- NOTE | 2020-06-10 12:56 | History & Physical Bridge Note ---
Date of Service June 10, 2020 History & Physical Bridge Note Patient more comfortable while lying in bed. Still with vertigo when sits up, but less so than on admission. - PT/OT for Shanika maneuver
[2020-06-10] MEDS: GABAPENTIN 300 MG CAP PO SCH (21:37)
[2020-06-10] MEDS: ATORVASTATIN 40 MG TAB PO SCH (21:37)
[2020-06-10] MEDS: MONTELUKAST SODIUM 10 MG TABLET PO SCH (21:38)
[2020-06-11] MEDS ORDERED: ALBUT/IPRATROP 3MG/0.5MG NEB 3 ML VIAL NEB STA ×2 (00:37→09:43)
--- NOTE | 2020-06-11 04:21 | Billing Data ---
Date of Service June 11, 2020 Coding Level of Care Code 79450 OBS Care - Level 3
[2020-06-11] MEDS: HEPARIN SOD 5,000 UNIT/0.5 ML VIAL SQ SCH ×3 (05:53→22:10)
[2020-06-11] MEDS: ALBUT/IPRATROP 3MG/0.5MG NEB 3 ML VIAL NEB PRN (08:13)
[2020-06-11] MEDS: FLUTICASONE/VILANTEROL 100/25MCG 14 PUFFS/INHALER INH SCH (09:11)
[2020-06-11] MEDS: ISOSORBIDE MONO EXTENDED REL 60 MG TABCR PO SCH (09:12)
[2020-06-11] MEDS: GABAPENTIN 300 MG CAP PO SCH ×2 (09:12→21:44)
[2020-06-11] MEDS: VERAPAMIL HCL 40 MG TAB PO SCH ×3 (09:12→21:45)
[2020-06-11] MEDS: PANTOprazole 40 MG TAB PO SCH (09:13)
[2020-06-11] MEDS: CLOPIDOGREL BISULFATE 75 MG TAB PO SCH (09:13)
[2020-06-11] MEDS: lisinopriL 20 MG TAB PO SCH (09:14)
[2020-06-11] MEDS: INSULIN GLARGINE SOLOSTAR 100 UNITS/ML 3 ML PEN SC SCH ×2 (09:17→21:36)
[2020-06-11] MEDS: INSULIN ASPART 100 UNITS/ML 3 ML PEN SC SCH ×5 (09:17→21:35)
[2020-06-11] MEDS: HYDROCODONE/ACETAMOPHEN 5/325MG TAB PO PRN ×3 (09:23→22:09)
[2020-06-11] MEDS ORDERED: methylPREDNISolone 125 MG in SYRINGE 0 ML IV STA (09:43)
--- NOTE | 2020-06-11 10:24 | XRay Report ---
XR chest 1V portable CLINICAL HISTORY: dyspnea COMPARISON STUDY: 12/23/2019 FINDINGS: The heart is borderline enlarged. There is mild diffuse elevation of interstitium. There ar e subtle septal lines. The findings likely mild interstitial edema.. An interstitial inflammatory pro cesses could appear similar. There are no pleural effusions.[ IMPRESSION: 1. Diffuse elevation of the interstitium, likely secondary to congestive failure with mild interstiti al edema. Clinical and radiographic follow-up is recommended. ACT 112: Negative or not required by law. Electronically signed by: Gómez Verma M.D. 06/11/2020 10:22 AM
[2020-06-11] MEDS: cefTRIAXone SODIUM 1,000 MG in DEXTROSE 5% 50 ML IV SCH (10:35)
[2020-06-11] MEDS ORDERED: FUROSEMIDE 40 MG in SYRINGE 0 ML IV SCH (11:00)
[2020-06-11] MEDS: ALBUT/IPRATROP 3MG/0.5MG NEB 3 ML VIAL NEB SCH ×3 (11:03→19:31)
[2020-06-11] MEDS: AZITHROMYCIN 500 MG in DEXTROSE 5% 250 ML IV SCH (11:08)
--- NOTE | 2020-06-11 12:02 | Hospitalist Progress Note ---
Date of Service June 11, 2020 Assessment & Plan (1) Vertigo: Appears to be benign positional vertigo. MRA/MRI negative on admission. Much improved with meclizine (2) Dizziness: Due to suspected BPV. Resolved Present on Admission?: Yes (3) Hemiplegic migraine: No complaints of migraine symptoms at this time (4) Obstructive sleep apnea on CPAP: Nighttime CPAP has been ordered Present on Admission?: Yes (5) GERD (gastroesophageal reflux disease): Antacid therapy (6) Depression: Continue current medical management (7) Atrial tachycardia: History of paroxysmal atrial tachycardia. Currently normal sinus rhythm (8) Anxiety: Supportive care. Benzodiazepine as needed (9) Acute bronchitis: Start azithromycin and Rocephin. Obtain sputum culture if sputum is produced (10) Exacerbation of asthma: Intravenous Solu-Medrol. Scheduled nebulizer treatments. Treat bronchitis Present on Admission?: No (11) Chest pain: Telemetry. Serial troponins. EKG. Present on Admission?: No Admission and Anticipated Discharge Date Admission Date: June 10, 2020 Subjective Alert but appears anxious. Complaining of shortness of breath and chest pain. She is audibly wheezing. She has developed a nonproductive cough. Stat EKG reveals nonspecific ST and T wave changes. Chest x-ray suggests pulmonary vascular congestion. Solu-Medrol and nebulizer treatment ordered along with a azithromycin and Rocephin. She is asking for her CPAP at bedtime. Troponin is also pending. She will not be able to go home today. Her vertigo however is much better with as needed meclizine. Review of Systems Review of Systems: Constitutional-no fever or chills ENT-no blurred vision, no double vision, no epistaxis, no sore throat Respiratory-short of breath at rest, wheezing, nonproductive cough Cardiac-left parasternal dull chest pain that is not palpable and unchanged with deep inspiration GI-no nausea, vomiting, diarrhea, melena, hematochezia -no urinary retention, no urinary incontinence, no dysuria, no hematuria Musculoskeletal-no joint pain, no muscle tenderness Skin-no bruising, no rashes, no pruritus Neuro-no isolated weakness, no paresthesia, no weakness. Vertigo is much improved Psych-no depression, no anxiety Physical Exam Physical Exam: General-alert and oriented x3, no fevers, no chills HEENT-head atraumatic and normocephalic, TMs intact bilaterally, pupils equal and reactive to light, extraocular muscles intact Neck-no lymphadenopathy or thyromegaly, trachea midline Chest-mildly tachypneic. Midline rhonchi. Bilateral and expiratory wheezes. Prolonged expiratory phase Cardiac-mild sinus tachycardia, normal S1 and S2, no murmurs Abdomen-normal bowel sounds, nontender, no hepatosplenomegaly Extremities-no cyanosis, clubbing, or edema Neuro-cranial nerves II through XII intact, motor and sensory function within normal limits, strength symmetrical 5/5, no focal deficits Psych-normal affect, normal mood Results & Data Results & Data ([facility]) Vital Signs (Past 12 Hours) Vital Signs Temp Pulse Resp BP Pulse Ox 06/11/20 11:05 89 94 06/11/20 10:00 81 20 96 06/11/20 08:14 77 19 95 06/11/20 07:18 36.5 C 89 18 130/84 92 06/11/20 00:49 74 18 96 Laboratory Results 06/09/20 19:38 06/09/20 19:38 PG Care Time/CCT Total # of Minutes Spent Total Time Spent with Patient: Total time spent is greater than 50% in coordin ation of care (as documented) at patient's floor/unit and/or counseling patient: Coding Level of Care Code 30014 Subseq Hosp Care Lvl 3 Diagnoses Vertigo R42 Dizziness R42 Hemiplegic migraine G43.409 Obstructive sleep apnea on CPAP G47.33; Z99.89 GERD (gastroesophageal reflux disease) K21.9 Esophagitis presence: esophagitis presence not specified Depression F32.9 Depression Type: unspecified Atrial tachycardia I47.1 Anxiety F41.9 Acute bronchitis J20.9 Exacerbation of asthma J45.901 Chest pain R07.9 (1) GERD (gastroesophageal reflux disease) Esophagitis presence: esophagitis presence not specified Qualified Code(s): K21.9 - Gastro-esophageal reflux disease without esophagitis (2) Depression Depression Type: unspecified Qualified Code(s): F32.9 - Major depressive disorder, single episode, unspecified
[2020-06-11 12:17] LABS: Basophils # (auto) 0.01 K/uL (0-0.2); Basophils % (auto) 0.1 %; Eosinophils # (auto) 0.09 K/uL (0-0.5); Eosinophils % (auto) 1.2 %; Hematocrit (blood only) 38.8 % (37-47); Hemoglobin 12.2 g/dL (12.0-16.0); Immature Granulocytes # (auto) 0.01 K/uL (0.00-0.02); Immature Granulocytes % (auto) 0.1 %; Lymphocytes # (auto) 2.92 K/uL (1.2-3.4); Lymphocytes % (auto) 37.5 %; Mean Corpuscular Hemoglobin 30.3 pg (25-34); Mean Corpuscular Volume 96.3 fL (80-100); Mean Platelet Volume 11.2 fL (7.4-10.4); Monocytes # (auto) 0.26 K/uL (0.11-0.59); Monocytes % (auto) 3.3 %; Neutrophils # (auto) 4.49 K/uL (1.4-6.5); Neutrophils % (auto) 57.8 %; Platelet Count 223 K/uL (130-400); RDW Coefficient of Variation 13.8 % (11.5-14.5); RDW Standard Deviation 48.9 fL (36.4-46.3); Red Blood Count 4.03 M/uL (4.2-5.4); White Blood Count 7.78 K/uL (4.8-10.8)
[2020-06-11 12:19] LABS: Mean Corpuscular Hgb Conc 31.4 g/dL (32-36)
[2020-06-11 12:36] LABS: BUN Creatinine Ratio 16.6 (10-20); Blood Urea Nitrogen 15 mg/dl (7-18); Calcium 8.6 mg/dl (8.5-10.1); Carbon Dioxide 24 mmol/L (21-32); Chloride 109 mmol/L (98-107); Creatinine Clr Calc Pharmacy 91.7 ml/min; Est GFR (African American) 83.4; Glucose 213 mg/dl (70-99); Potassium 3.8 mmol/L (3.5-5.1); Sodium 140 mmol/L (136-145)
[2020-06-11 12:40] LABS: Troponin I < 0.015 ng/ml (0-0.045)
[2020-06-11] MEDS: methylPREDNISolone 40 MG in SYRINGE 0 ML IV SCH ×2 (14:36→21:42)
[2020-06-11] MEDS ORDERED: INSULIN ASPART 100 UNITS/ML 3 ML PEN SC ONE (17:45)
[2020-06-11] MEDS: MONTELUKAST SODIUM 10 MG TABLET PO SCH (21:44)
[2020-06-11] MEDS: ATORVASTATIN 40 MG TAB PO SCH (21:44)
[2020-06-11] MEDS ORDERED: INSULIN HUMAN REGULAR PER UNIT 5 UNITS in SYRINGE 0 ML IV STA (23:15)
[2020-06-11] MEDS ORDERED: NovoLIN-R INSULIN PER UNIT CHARGE SQ ONE (23:30)
--- NOTE | 2020-06-12 05:33 | Electrocardiogram Report ---
Test Reason : Blood Pressure : / mmHG Vent. Rate : 084 BPM Atrial Rate : 084 BPM P-R Int : 158 ms QRS Dur : 082 ms QT Int : 380 ms P-R-T Axes : 026 009 033 degrees QTc Int : 449 ms Normal sinus rhythm Moderate voltage criteria for LVH, may be normal variant Abnormal ECG When compared with ECG of 09-JUN-2020 19:06, No significant change was found Confirmed by Mor Solis ([id number]) on 06/12/2020 5:33:29 AM Referred By: REFERRED SELF Confirmed By:Mor Solis
[2020-06-12 06:28] LABS: Hematocrit (blood only) 40.1 % (37-47); Hemoglobin 13.2 g/dL (12.0-16.0); Immature Granulocytes # (auto) 0.05 K/uL (0.00-0.02); Immature Granulocytes % (auto) 0.3 %; Lymphocytes # (auto) 2.08 K/uL (1.2-3.4); Lymphocytes % (auto) 12.6 %; Mean Corpuscular Hemoglobin 31.6 pg (25-34); Mean Corpuscular Hgb Conc 32.9 g/dL (32-36); Mean Corpuscular Volume 95.9 fL (80-100); Mean Platelet Volume 11.7 fL (7.4-10.4); Monocytes # (auto) 0.26 K/uL (0.11-0.59); Monocytes % (auto) 1.6 %; Neutrophils # (auto) 14.15 K/uL (1.4-6.5); Neutrophils % (auto) 85.5 %; Platelet Count 255 K/uL (130-400); RDW Coefficient of Variation 14.2 % (11.5-14.5); RDW Standard Deviation 49.8 fL (36.4-46.3); Red Blood Count 4.18 M/uL (4.2-5.4); White Blood Count 16.54 K/uL (4.8-10.8)
[2020-06-12] MEDS: HEPARIN SOD 5,000 UNIT/0.5 ML VIAL SQ SCH (06:32)
[2020-06-12 07:01] LABS: Blood Urea Nitrogen 19 mg/dl (7-18); Carbon Dioxide 23 mmol/L (21-32); Chloride 108 mmol/L (98-107); Creatinine Clr Calc Pharmacy 77.9 ml/min; Est GFR (African American) 68.5; Est GFR (Non-African American) 59.1; Glucose 264 mg/dl (70-99); Potassium 4.2 mmol/L (3.5-5.1); Sodium 139 mmol/L (136-145)
[2020-06-12 07:02] LABS: Troponin I < 0.015 ng/ml (0-0.045)
[2020-06-12 07:03] LABS: Calcium 10.1 mg/dl (8.5-10.1)
[2020-06-12] MEDS: ALBUT/IPRATROP 3MG/0.5MG NEB 3 ML VIAL NEB SCH ×2 (07:19→11:25)
[2020-06-12] MEDS: methylPREDNISolone 40 MG in SYRINGE 0 ML IV SCH (08:45)
[2020-06-12] MEDS: FLUTICASONE/VILANTEROL 100/25MCG 14 PUFFS/INHALER INH SCH (08:52)
[2020-06-12] MEDS: ISOSORBIDE MONO EXTENDED REL 60 MG TABCR PO SCH (08:52)
[2020-06-12] MEDS: GABAPENTIN 300 MG CAP PO SCH (08:53)
[2020-06-12] MEDS: PANTOprazole 40 MG TAB PO SCH (08:53)
[2020-06-12] MEDS: CLOPIDOGREL BISULFATE 75 MG TAB PO SCH (08:53)
[2020-06-12] MEDS: lisinopriL 20 MG TAB PO SCH (08:54)
[2020-06-12] MEDS: VERAPAMIL HCL 40 MG TAB PO SCH (08:54)
[2020-06-12] MEDS ORDERED: Nursing to Pharmacy Communication SCH (09:00)
[2020-06-12] MEDS: AZITHROMYCIN 500 MG in DEXTROSE 5% 250 ML IV SCH (09:02)
[2020-06-12] MEDS: HYDROCODONE/ACETAMOPHEN 5/325MG TAB PO PRN (09:03)
[2020-06-12] MEDS: INSULIN GLARGINE SOLOSTAR 100 UNITS/ML 3 ML PEN SC SCH (09:06)
[2020-06-12] MEDS: INSULIN ASPART 100 UNITS/ML 3 ML PEN SC SCH (09:07)
--- NOTE | 2020-06-12 10:27 | Discharge Summary ---
Date of Service June 12, 2020 Admission HPI Per Admitting Provider Deb was home all day and feeling well. her came home from work and they went out to the store. She got in her power chair, and she was very dizzy when she sat in it. She rode the powerchair through the store. Her head then 'started spinning and getting worse.' She had an episode of nausea and started to return home when she had sudden onset of vomiting. Her head kept spinning and she had two more episodes of vomiting, nonbloody and nonbilious. She returned home and layed on the couch, but 'my head was spinning so bad I had to lay on the floor.' She had one episode of vomiting, then her symptoms started to improve when she was laying on the floor. She waiting for some time, but when she sat up she because dizzy and had one more episode of voming. She then layed down on bed and felt OK, but everytime she sat up or turned her head she suddenly got dizzy again. She has never had an episode like this before. Her brother was hospitalized with similar symptoms and recovered normally, and who has no other health problems.No recent illness. No fevers, chills, sweats. She had a slight cough a few days which was normal for her with her asthma. No worsening. no shortness of breath or congestion. She reports she gets ear infections almost every year, but has not had one recently and has no ear pain at time of HPI. No hearing change. At time of HPI she feels 'ok'. No numbness, tingling, or weakness. Medication: Last took her medications Monday. MedHx: Reviewed SurgicalHx:Reviewed Allergies: Reviewed Social: Rare alcohol use, no tobacco use, no marijuana use. Lives at home with her . Principal Diagnosis BPV Discharge Exam Constitutional WD/WN, vitals as above Eyes PERRL, conjunctivae normal, anicteric sclerae ENMT external ear and nose normal, oropharynx normal Neck trachea midline, no thyromegaly Respiratory diminished breath sounds bilaterally, faint end exp. wheezes and midline ronchi Cardiovascular RRR, no murmur, no edema Gastrointestinal (Abdomen) normal bowel sounds, soft, nontender, no hepatosplenomegaly Musculoskeletal no cyanosis or clubbing, extremities motor strength 5/5 Skin no rashes, warm and dry Neurologic PERRL, EOMI, accommodation nl, no face palsy, no dysarthria CN's II-XI intact bilaterally Psychiatric A+Ox3, euthymic affect Discharge Data Allergies Allergy/AdvReac Type Severity Reaction Status Date / Time No Known Allergies Allergy Verified 06/09/20 21:43 Ordered Studies 06/09/20 18:56 MR angio head wo con Stat MR angio neck wo/w con Stat MR brain wo con Stat Hospital Course (1) Vertigo: Appears to be benign positional vertigo. MRA/MRI negative on admission. Much improved with meclizine (2) Dizziness: Due to suspected BPV. Resolved (3) Hemiplegic migraine: No complaints of migraine symptoms at this time (4) Obstructive sleep apnea on CPAP: Nighttime CPAP has been ordered (5) GERD (gastroesophageal reflux disease): Antacid therapy (6) Depression: Continue current medical management (7) Atrial tachycardia: History of paroxysmal atrial tachycardia. Currently normal sinus rhythm (8) Anxiety: Supportive care. Benzodiazepine as needed (9) Acute bronchitis: Start azithromycin and Rocephin. Obtain sputum culture if sputum is produced (10) Exacerbation of asthma: Intravenous Solu-Medrol. Scheduled nebulizer treatments. Treat bronchitis (11) Chest pain: Telemetry. Serial troponins. EKG. Total Time Total Time Spent Total Time Spent (In Minutes): 35 minutes Discharge Plan Discharge Items Reason For Visit: VERTIGO Medications and DC Order Prescriptions: No Action isosorbide mononitrate 60 mg Tablet Extended Release 24 Hr 60 mg PO QAM Qty: 0 RF: 0 nitroglycerin [Nitrostat] 0.4 mg Tablet, Sublingual 0.4 mg Sublingual DIRECTED PRN (Reason: Chest Pain) Qty: 0 RF: 0 clopidogrel [Plavix] 75 mg Tablet 75 mg PO QAM Qty: 0 RF: 0 pantoprazole 40 mg Tablet,Delayed Release (Dr/Ec) 40 mg PO QAM Qty: 0 RF: 0 aspirin [Aspirin Low Dose] 81 mg tablet,delayed release (DR/EC) 81 mg PO QAM Qty: 0 RF: 0 Proctofoam HC 1-1 % foam 1 appln MO QID PRN (Reason: Hemorrhoids) Qty: 10 RF: 5 albuterol sulfate 90 mcg/actuation HFA aerosol inhaler 2 puffs INH Q6H PRN (Reason: shortness of breath or wheezing) Qty: 8 RF: 0 diclofenac sodium [Voltaren] 1 % gel 2 g TOPICAL QID PRN (Reason: Pain) Qty: 100 RF: 5 albuterol sulfate 0.63 mg/3 mL solution for nebulization 0.63 mg INH Q6H PRN (Reason: shortness of breath or wheezing) Qty: 75 RF: 1 verapamil 80 mg tablet 80 mg PO TID Qty: 90 RF: 5 gabapentin 600 mg tablet 300 mg PO BID Qty: 90 RF: 2 atorvastatin 80 mg tablet 80 mg PO HS RF: 0 montelukast 10 mg tablet 10 mg PO HS RF: 0 docusate sodium [Colace] 100 mg Capsule 100 mg PO BID RF: 0 Dulera 200-5 mcg/actuation Hfa Aerosol Inhaler 2 puff INHALATION BID RF: 0 metformin 500 mg Tablet 500 mg PO TIDM RF: 0 acetaminophen [Tylenol Extra Strength] 500 mg Tablet 1,000 mg PO Q6H PRN (Reason: Pain) RF: 0 lisinopril 20 mg tablet 20 mg PO QAM RF: 0 hydrocodone-acetaminophen [[place]] 5-325 mg tablet 1 tab PO Q6H PRN (Reason: pain) Qty: 10 RF: 0 Novolin N NPH U-100 Insulin 100 unit/mL Suspension 10 - 30 unit SUBCUT AC RF: 0 prochlorperazine maleate 10 mg Tablet 10 mg PO Q6H PRN (Reason: Nausea) RF: 0 lidocaine [Lidoderm] 5 % adhesive patch,medicated 1 patch topical DAILY PRN (Reason: Pain) RF: 0 Admission Data Admit Date/Time: 06/11/20 16:40 Attending Provider: Bunny Ac Admit Provider: Juanito Moise Primary Care Provider: Nita Torres Coding Level of Care Code D/C Day Management >30 mins Diagnoses Vertigo R42 Dizziness R42 Hemiplegic migraine G43.409 Obstructive sleep apnea on CPAP G47.33; Z99.89 GERD (gastroesophageal reflux disease) K21.9 Esophagitis presence: esophagitis presence not specified Depression F32.9 Depression Type: unspecified Atrial tachycardia I47.1 Anxiety F41.9 Acute bronchitis J20.9 Exacerbation of asthma J45.901 Chest pain R07.9
[2020-06-12] MEDS: cefTRIAXone SODIUM 1,000 MG in DEXTROSE 5% 50 ML IV SCH (11:04)
[2020-06-12] MEDS ORDERED: methylPREDNISolone 40 MG in SYRINGE 0 ML IV SCH (16:00)
== END 2020-06-12 11:34 | disposition home or self-care (01) ==
LOC: 3W 18:46 → ED 18:46 → SUATTDRO 06-10 01:49 → 3W 06-10 02:33

== ENCOUNTER 2020-08-07 12:30 | Observation (INO) ==
[2020-08-07] MEDS ORDERED: methylPREDNISolone 125 MG/2 ML VIAL IV STA (13:38)
[2020-08-07] MEDS ORDERED: ALBUT/IPRATROP 3MG/0.5MG NEB 3 ML VIAL NEB ONE (13:38)
[2020-08-07] MEDS ORDERED: MAGNESIUM SULFATE / D5W 1 GM/100 ML BAG IV STA (13:39)
--- NOTE | 2020-08-07 13:41 | XRay Report ---
XR chest 1V portable CLINICAL HISTORY: Shortness of breath. Chest pain. COMPARISON STUDY: Chest radiograph June 20, 2020. FINDINGS: Lung volumes are normal. Lungs are clear. There is no pneumothorax or pleural effusion. Car diac size is normal. Mediastinal contours are normal. There is no evidence for pulmonary edema. IMPRESSION: No acute cardiopulmonary findings. ACT 112: Negative or not required by law. Electronically signed by: Giuliano Juares M.D. 08/07/2020 1:40 PM
--- NOTE | 2020-08-07 13:45 | Emergency Department Note ---
History of Present Illness General Chief complaint: Shortness of Breath/Dyspnea Stated complaint: chest pain sob dry cough x1 week Time Seen by Provider: 08/07/20 13:21 Source: patient History of Present Illness Provider complaint: Chest pain Onset (ago): day(s) Location: chest and left Radiation: non-radiation Severity: moderate Pain Consistency: + intermittent Maximum Pain Intensity: 8 Quality: + aching Exacerbated By: + other (Coughing) Associated symptoms: + chest pain, + cough, + headaches, + nausea/vomiting and + shortness of breath; no fever/chills This is a 54-year-old female who presents with chest pain since yesterday. She describes it as an ache on the left side of her chest. She believes it is from coughing and it is worse with coughing. She has been coughing for about a week. She developed cold symptoms about a week ago. She has had a nonproductive cough with sore throat and a headache. She denies any myalgias or fevers. She has had no contact with [place] [id number] as far she knows and lives with her who is not sick. She does not go out without a mask and is disabled so stays home. She does have a history of asthma and started to become short of breath 2 days ago. She has been wheezing and is using her nebulizer 4 times a day with mild relief. She is not currently on steroids. She denies any loss of taste or smell, abdominal pain, diarrhea or urinary symptoms. She did have one episode of vomiting but believes it was from taking NyQuil. Home Medications Home Medications Medication Instructions Recorded Confirmed Type Dulera 2 puff INHALATION BID 12/04/18 06/22/20 History docusate sodium [Colace] 100 mg PO BID 12/04/18 06/22/20 History aspirin 81 mg tablet,delayed 81 mg PO QAM #0 tab 07/09/19 06/22/20 History release prochlorperazine maleate 10 mg PO Q6H PRN 09/24/19 06/22/20 History verapamil 80 mg tablet 80 mg PO TID #90 tab 11/04/19 06/22/20 Rx hydrocortisone 1 %-pramoxine 1 % 1 appln TN QID PRN #10 gm 12/03/19 06/22/20 Rx rectal foam acetaminophen [Tylenol Extra 1,000 mg PO Q6H PRN 12/23/19 06/22/20 History Strength] albuterol sulfate 0.63 mg/3 mL 0.63 mg INH Q6H PRN #75 ml 03/24/20 06/22/20 Rx solution for nebulization albuterol sulfate 90 mcg/actuation 2 puffs INH Q6H PRN #8 gm 03/24/20 06/22/20 Rx aerosol inhaler diclofenac sodium 1 % topical gel 2 g TOPICAL QID PRN #100 gm 03/24/20 06/22/20 Rx hydrocodone-acetaminophen [Desha] 1 tab PO Q6H PRN #10 tab 05/22/20 06/22/20 Rx lidocaine [Lidoderm] 1 patch TOPICAL DAILY PRN 06/09/20 06/22/20 History meclizine 25 mg PO Q6 PRN #20 tab 06/12/20 06/22/20 Rx atorvastatin 80 mg tablet 80 mg PO HS #90 tab 06/22/20 06/22/20 Rx clopidogrel 75 mg tablet 75 mg PO QAM #90 tab 06/22/20 06/22/20 Rx insulin NPH isoph U-100 human 100 10 - 30 unit SUBCUT AC #30 ml 06/22/20 06/22/20 Rx unit/mL subcutaneous suspension isosorbide mononitrate 60 mg 60 mg PO QAM #90 tab 06/22/20 06/22/20 Rx tablet,extended release 24 hr lisinopril 20 mg tablet 20 mg PO QAM #90 tab 06/22/20 06/22/20 Rx metformin 500 mg tablet 500 mg PO TIDM #270 tab 06/22/20 06/22/20 Rx montelukast 10 mg tablet 10 mg PO HS #90 tab 06/22/20 06/22/20 Rx pantoprazole 40 mg tablet,delayed 40 mg PO QAM #90 tab 06/22/20 06/22/20 Rx release nitroglycerin 0.4 mg sublingual 0.4 mg SUBLINGUAL Q5M PRN #100 tab 06/26/20 Rx tablet Allergies Allergy/AdvReac Type Severity Reaction Status Date / Time No Known Allergies Allergy Verified 06/22/20 09:33 Past Med/Surg History Medical History Arthritis of knee CHF (congestive heart failure) Chronic back pain Chronic low back pain CSF leak Degeneration of cervical intervertebral disc External hemorrhoids Frequent falls TIA (transient ischemic attack) Urinary incontinence Vertebral artery stenosis Surgical History Facial fracture (2014) WITH RECONSTRUCTION History of bilateral tubal ligation History of cardiac cath X2 STENTS - (~2010, [place], [place] NO STENTS - ([facility] @ ~2014) History of colonoscopy History of esophagogastroduodenoscopy (EGD) History of heart artery stent X2 STENTS (2010) UNSURE OF KIND. NO STENT CARDS PER PT. History of mandibular surgery S/P left knee arthroscopy S/p tibial fracture open treatment of Fx with plate/screws, Left leg Status post right foot surgery Family History Mother Breast cancer, Onset Age: 64 Type 2 diabetes mellitus Father Diabetes Coronary heart disease Type 2 diabetes mellitus Myocardial infarction, Onset Age: 52 Family/Other Hypertension sibling Denies family history of Ovarian cancer Social History Smoking Status: Never smoker Tobacco Type: Cigarettes Second Hand Exposure: No; Hx Alcohol Use: No Hx Substance Use: No Preferred Language: Wolof Communication Ability: Effective Visual Impairment: No Limitations Postal Worker Required: No Beliefs That Will Affect Care: None marital status: Current Living Situation: Spouse Feels Safe at Home: Yes Assistive Devices: None Review of Systems See HPI for pertinent positives & negatives. and A total of 10 systems reviewed and were otherwise negative Physical Exam Vital Signs Vital Signs - 24 hr 08/07/20 12:36 08/07/20 12:40 08/07/20 12:55 Temperature 36.8 C Temperature Source Oral Pulse Rate 110 H 110 H 108 H Pulse Rate [Right Finger] Pulse Rate from SpO2 Sensor 109 H 110 H 109 H Pulse Rhythm Regular Pulse Strength Normal Respiratory Rate 24 29 H 29 H Respiratory Effort / Characteristics Respiratory Depth Respiratory Pattern Regular Blood Pressure 120/71 123/69 Blood Pressure Mean 83 81 Pulse Oximetry 96 95 93 Oxygen Delivery Method Room Air Oxygen Flow Rate 0 Fraction of Inspired Oxygen Sepsis Recent Fever Within 48 Hours No Sepsis New/Unexplained Change in Mental Status No Sepsis Action Taken by Nursing No Action Required 08/07/20 13:00 08/07/20 13:01 08/07/20 13:30 Temperature Temperature Source Pulse Rate 108 H 106 H 102 H Pulse Rate [Right Finger] Pulse Rate from SpO2 Sensor 105 H 107 H 98 H Pulse Rhythm Pulse Strength Respiratory Rate 19 19 29 H Respiratory Effort / Characteristics Respiratory Depth Respiratory Pattern Blood Pressure 134/106 H 133/76 Blood Pressure Mean 111 89 Pulse Oximetry 97 96 96 Oxygen Delivery Method Oxygen Flow Rate Fraction of Inspired Oxygen Sepsis Recent Fever Within 48 Hours Sepsis New/Unexplained Change in Mental Status Sepsis Action Taken by Nursing 08/07/20 14:00 08/07/20 14:02 08/07/20 14:30 Temperature Temperature Source Pulse Rate 96 H 96 H 95 H Pulse Rate [Right Finger] Pulse Rate from SpO2 Sensor 92 H 96 H 95 H Pulse Rhythm Pulse Strength Respiratory Rate 25 H 19 16 Respiratory Effort / Characteristics Respiratory Depth Respiratory Pattern Blood Pressure 96/62 L 133/84 Blood Pressure Mean 72 102 Pulse Oximetry 100 98 98 Oxygen Delivery Method Oxygen Flow Rate Fraction of Inspired Oxygen Sepsis Recent Fever Within 48 Hours Sepsis New/Unexplained Change in Mental Status Sepsis Action Taken by Nursing 08/07/20 15:00 08/07/20 15:11 08/07/20 15:30 Temperature Temperature Source Pulse Rate 92 H 94 H Pulse Rate [Right Finger] 91 H Pulse Rate from SpO2 Sensor 94 H Pulse Rhythm Pulse Strength Respiratory Rate 17 19 16 Respiratory Effort / Characteristics Non-Labored Spontaneous Respiratory Depth Respiratory Pattern Blood Pressure 136/73 125/86 Blood Pressure Mean 86 92 Pulse Oximetry 100 100 Oxygen Delivery Method Room Air Oxygen Flow Rate Fraction of Inspired Oxygen Sepsis Recent Fever Within 48 Hours Sepsis New/Unexplained Change in Mental Status Sepsis Action Taken by Nursing 08/07/20 16:00 08/07/20 16:02 08/07/20 16:03 Temperature Temperature Source Pulse Rate 102 H 102 H 101 H Pulse Rate [Right Finger] Pulse Rate from SpO2 Sensor Pulse Rhythm Pulse Strength Respiratory Rate 24 22 15 Respiratory Effort / Characteristics Respiratory Depth Respiratory Pattern Blood Pressure 107/75 Blood Pressure Mean 85 Pulse Oximetry Oxygen Delivery Method Oxygen Flow Rate Fraction of Inspired Oxygen Sepsis Recent Fever Within 48 Hours Sepsis New/Unexplained Change in Mental Status Sepsis Action Taken by Nursing 08/07/20 17:11 Temperature Temperature Source Pulse Rate 88 Pulse Rate [Right Finger] Pulse Rate from SpO2 Sensor Pulse Rhythm Pulse Strength Respiratory Rate 23 Respiratory Effort / Characteristics Non-Labored Spontaneous Respiratory Depth Normal Respiratory Pattern Blood Pressure Blood Pressure Mean Pulse Oximetry 99 Oxygen Delivery Method Oxygen Flow Rate Fraction of Inspired Oxygen 30 Sepsis Recent Fever Within 48 Hours Sepsis New/Unexplained Change in Mental Status Sepsis Action Taken by Nursing Constitutional: Vital signs reviewed. Coughing Eyes: Pupils are equal round reactive to light. Conjunctiva are noninjected. ENT: Pharynx is clear without erythema or exudate. Mucous membranes are moist. Neck supple without meningeal signs. Respiratory: Diffuse wheezing bilaterally. Difficulty speaking in complete sentences. Breath sounds are equal bilaterally. Cardiovascular: Regular rate and rhythm. No rubs or gallops. GI: Soft, nondistended and nontender. Bowel sounds are present. Musculoskeletal: No peripheral edema. No lower extremity tenderness. Integumentary: No cyanosis. or jaundice. Neurological: The patient is awake and alert. No focal deficits. Psychiatric: Normal affect. Not anxious appearing. Course Administered Medications Discontinued Medications Albuterol (Albut/Ipratrop 3mg/0.5mg Neb 3 Ml Vial) 12 ml NEB ONE ONE Stop: 08/07/20 13:39 Last Admin: 08/07/20 15:08 Dose: 12 ml Documented by: [id number] Albuterol (Albut/Ipratrop 3mg/0.5mg Neb 3 Ml Vial) 3 ml NEB NOW STA Stop: 08/07/20 16:47 Last Admin: 08/07/20 16:49 Dose: Not Given Documented by: [id number] Magnesium Sulfate/Dextrose (Magnesium Sulfate / D5w) 1 gm in 100 mls @ 100 mls/hr IV NOW STA Stop: 08/07/20 14:38 Last Infusion: 08/07/20 16:20 Dose: 0 mls/hr Documented by: [id number] Admin: 08/07/20 15:19 Dose: 100 mls/hr Documented by: [id number] Methylprednisolone (Methylprednisolone 125 Mg/2 Ml Vial) 125 mg IV NOW STA Stop: 08/07/20 13:39 Last Admin: 08/07/20 15:20 Dose: 125 mg Documented by: [id number] Critical Care Time Critical Care Time: Yes Total Critical Care Time: 40 I have personally spent approximately 40 minutes of critical care time in the direct management of this patient. This includes bedside care, interpretation of diagnostic studies, and testing, discussion with consultants, patient, and family members, and other required patient management activities. These minutes are in excess of all separately billable procedures. Medical Decision Making Differential Diagnosis Asthma exacerbation, URI, bronchitis, pneumonia, COVID-19 Medical Records Attestation: I reviewed the patient's medical records. The patient was seen here June 20 for left-sided chest pain. This was thought to be musculoskeletal. She had a negative D-dimer and troponin at that time. She was treated with Toradol. Home Medications Current Medication List: was personally reviewed by me Laboratory Data Attestation: I reviewed the patient's lab results. Result diagrams: 08/07/20 14:55 08/07/20 14:55 Lab Results 08/07/20 08/07/20 08/07/20 Range/Units 13:45 13:45 14:55 WBC 8.72 (4.8-10.8) K/uL RBC 4.39 (4.2-5.4) M/uL Hgb 13.3 (12.0-16.0) g/dL Hct 41.7 (37-47) % MCV 95.0 (80-100) fL MCH 30.3 (25-34) pg MCHC 31.9 L (32-36) g/dL RDW Std Deviation 49.8 H (36.4-46.3) fL RDW Coeff of Majo 14.2 (11.5-14.5) % Plt Count 261 (130-400) K/uL MPV 11.6 H (7.4-10.4) fL Immature Gran % (Auto) 0.2 % Neut % (Auto) 49.0 % Lymph % (Auto) 43.7 % Logan % (Auto) 5.7 % Eos % (Auto) 1.1 % Baso % (Auto) 0.3 % Neut # (Auto) 4.26 (1.4-6.5) K/uL Lymph # (Auto) 3.81 H (1.2-3.4) K/uL Logan # (Auto) 0.50 (0.11-0.59) K/uL Eos # (Auto) 0.10 (0-0.5) K/uL Baso # (Auto) 0.03 (0-0.2) K/uL Immature Gran # (Auto) 0.02 (0.00-0.02) K/uL PT INR APTT PTT Ratio Carboxyhemoglobin % THgb Sodium (136-145) mmol/L Potassium (3.5-5.1) mmol/L Chloride (98-107) mmol/L Carbon Dioxide (21-32) mmol/L Anion Gap (3-11) BUN (7-18) mg/dl Creatinine (0.6-1.2) mg/dl Est Cr Clr Drug Dosing ml/min Est GFR ( Amer) Est GFR (Non-Af Amer) BUN/Creatinine Ratio (10-20) Glucose (70-99) mg/dl Calcium (8.5-10.1) mg/dl Total Bilirubin (0.2-1) mg/dl AST (15-37) U/L ALT (12-78) U/L Alkaline Phosphatase (45-117) U/L Troponin I (0-0.045) ng/ml Total Protein (6.4-8.2) gm/dl Albumin (3.4-5.0) gm/dl Globulin (2.5-4.0) gm/dl Albumin/Globulin Ratio (0.9-2) Lipase (73-393) U/L COVID-19 Eval Order Covid19 Done at [facility] COVID-19 PCR NEGATIVE (Negative) 08/07/20 08/07/20 08/07/20 Range/Units 14:55 14:55 15:54 WBC (4.8-10.8) K/uL RBC (4.2-5.4) M/uL Hgb (12.0-16.0) g/dL Hct (37-47) % MCV (80-100) fL MCH (25-34) pg MCHC (32-36) g/dL RDW Std Deviation (36.4-46.3) fL RDW Coeff of Majo (11.5-14.5) % Plt Count (130-400) K/uL MPV (7.4-10.4) fL Immature Gran % (Auto) % Neut % (Auto) % Lymph % (Auto) % Logan % (Auto) % Eos % (Auto) % Baso % (Auto) % Neut # (Auto) (1.4-6.5) K/uL Lymph # (Auto) (1.2-3.4) K/uL Logan # (Auto) (0.11-0.59) K/uL Eos # (Auto) (0-0.5) K/uL Baso # (Auto) (0-0.2) K/uL Immature Gran # (Auto) (0.00-0.02) K/uL PT Cancelled INR Cancelled APTT Cancelled PTT Ratio Cancelled Carboxyhemoglobin 0.0 % THgb Sodium 145 (136-145) mmol/L Potassium 4.4 (3.5-5.1) mmol/L Chloride 111 H (98-107) mmol/L Carbon Dioxide 28 (21-32) mmol/L Anion Gap 6.0 (3-11) BUN 15 (7-18) mg/dl Creatinine 0.99 (0.6-1.2) mg/dl Est Cr Clr Drug Dosing 83.1 ml/min Est GFR ( Amer) 74.4 Est GFR (Non-Af Amer) 64.2 BUN/Creatinine Ratio 15.1 (10-20) Glucose 139 H (70-99) mg/dl Calcium 9.9 (8.5-10.1) mg/dl Total Bilirubin 0.3 (0.2-1) mg/dl AST 19 (15-37) U/L ALT 24 (12-78) U/L Alkaline Phosphatase 120 H (45-117) U/L Troponin I < 0.015 (0-0.045) ng/ml Total Protein 7.7 (6.4-8.2) gm/dl Albumin 3.3 L (3.4-5.0) gm/dl Globulin 4.4 H (2.5-4.0) gm/dl Albumin/Globulin Ratio 0.7 L (0.9-2) Lipase 181 (73-393) U/L COVID-19 Eval Order COVID-19 PCR (Negative) 08/07/20 Range/Units 15:54 WBC (4.8-10.8) K/uL RBC (4.2-5.4) M/uL Hgb (12.0-16.0) g/dL Hct (37-47) % MCV (80-100) fL MCH (25-34) pg MCHC (32-36) g/dL RDW Std Deviation (36.4-46.3) fL RDW Coeff of Majo (11.5-14.5) % Plt Count (130-400) K/uL MPV (7.4-10.4) fL Immature Gran % (Auto) % Neut % (Auto) % Lymph % (Auto) % Logan % (Auto) % Eos % (Auto) % Baso % (Auto) % Neut # (Auto) (1.4-6.5) K/uL Lymph # (Auto) (1.2-3.4) K/uL Logan # (Auto) (0.11-0.59) K/uL Eos # (Auto) (0-0.5) K/uL Baso # (Auto) (0-0.2) K/uL Immature Gran # (Auto) (0.00-0.02) K/uL PT 10.2 INR 1.0 APTT 24.0 PTT Ratio 0.9 Carboxyhemoglobin % THgb Sodium (136-145) mmol/L Potassium (3.5-5.1) mmol/L Chloride (98-107) mmol/L Carbon Dioxide (21-32) mmol/L Anion Gap (3-11) BUN (7-18) mg/dl Creatinine (0.6-1.2) mg/dl Est Cr Clr Drug Dosing ml/min Est GFR ( Amer) Est GFR (Non-Af Amer) BUN/Creatinine Ratio (10-20) Glucose (70-99) mg/dl Calcium (8.5-10.1) mg/dl Total Bilirubin (0.2-1) mg/dl AST (15-37) U/L ALT (12-78) U/L Alkaline Phosphatase (45-117) U/L Troponin I (0-0.045) ng/ml Total Protein (6.4-8.2) gm/dl Albumin (3.4-5.0) gm/dl Globulin (2.5-4.0) gm/dl Albumin/Globulin Ratio (0.9-2) Lipase (73-393) U/L COVID-19 Eval Order COVID-19 PCR (Negative) Imaging Data Radiologist's Impression: XR chest 1V portable CLINICAL HISTORY: Shortness of breath. Chest pain. COMPARISON STUDY: Chest radiograph June 20, 2020. FINDINGS: Lung volumes are normal. Lungs are clear. There is no pneumothorax or pleural effusion. Cardiac size is normal. Mediastinal contours are normal. There is no evidence for pulmonary edema. IMPRESSION: No acute cardiopulmonary findings. ACT 112: Negative or not required by law. Electronically signed by: Giuliano Juares M.D. 08/07/2020 1:40 PM ECG Data Attestation: I personally reviewed and interpreted this ECG as follows: Indication: + chest pain Rate (beats per minute): 111 Rhythm: + sinus tachycardia ECG ST segments: no ST elevation ECG Findings: + LVH; no PVCs MDM Narrative I did evaluate the patient as noted above. The patient is presenting with shortness of breath with cough and cold symptoms and left-sided chest pain. The nurse also informed me that there was a reported gas leak in her apartment building. The patient was placed in respiratory isolation. Rapid Covid testing was obtained. I did treat her with an hour-long continuous DuoNeb as well as Solu-Medrol 125 mg IV and magnesium 1 g IV. IV access was established. I did place an order for continuous cardiac monitoring. The monitor showed sinus tachycardia at a rate of 111. I did order and personally review the patient's 12-lead EKG as described above. She has sinus tachycardia without acute ischemia. There is evidence of LVH. I did order and personally reviewed the images of the patient's chest x-ray as described above. There is no evidence of acute process. I did order and review the patient's blood work as noted in the electronic medical record. CBC is unremarkable with no evidence of leukocytosis or anemia. Carboxyhemoglobin level is 0. LFTs, troponin and electrolytes are unremarkable other than a chloride of 111. COVID-19 testing is negative. She was taken out of respiratory isolation. I did reassess the patient. She is still rather dyspneic. She cannot talk in full sentences. She has still has diffuse wheezing throughout her lung mohr and accessory muscle use. She remains tachypneic. She states she is on CPAP at home when she sleeps. She was agreeable to a trial of BiPAP here. I did order BiPAP for the patient. I did recommend hospitalization. I did discuss the case with the hospitalist and casework manager. Impression & Plan Severe asthma with acute exacerbation, Flu-like symptoms, Left-sided chest pain Discharge Plan Visit Data Chief Complaint: Shortness of Breath/Dyspnea Stated Complaint: chest pain sob dry cough x1 week ED Provider: Ramo Link Discharge Problem: Severe asthma with acute exacerbation, Flu-like symptoms, Left-sided chest pain Forms Stand Alone Forms: [facility] [employer] Prescriptions Prescriptions: No Action aspirin [Aspirin Low Dose] 81 mg tablet,delayed release (DR/EC) 81 mg PO QAM Qty: 0 RF: 0 Proctofoam HC 1-1 % foam 1 appln TN QID PRN (Reason: Hemorrhoids) Qty: 10 RF: 5 albuterol sulfate 90 mcg/actuation HFA aerosol inhaler 2 puffs INH Q6H PRN (Reason: shortness of breath or wheezing) Qty: 8 RF: 0 diclofenac sodium [Voltaren] 1 % gel 2 g TOPICAL QID PRN (Reason: Pain) Qty: 100 RF: 5 albuterol sulfate 0.63 mg/3 mL solution for nebulization 0.63 mg INH Q6H PRN (Reason: shortness of breath or wheezing) Qty: 75 RF: 1 nitroglycerin [Nitrostat] 0.4 mg tablet, sublingual 0.4 mg Sublingual Q5M PRN (Reason: Chest Pain) Qty: 100 RF: 0 verapamil 80 mg tablet 80 mg PO TID Qty: 90 RF: 5 clopidogrel [Plavix] 75 mg tablet 75 mg PO QAM Qty: 90 RF: 3 lisinopril 20 mg tablet 20 mg PO QAM Qty: 90 RF: 3 pantoprazole 40 mg tablet,delayed release (DR/EC) 40 mg PO QAM Qty: 90 RF: 3 montelukast 10 mg tablet 10 mg PO HS Qty: 90 RF: 3 metformin 500 mg tablet 500 mg PO TIDM Qty: 270 RF: 3 Novolin N NPH U-100 Insulin 100 unit/mL suspension 10 - 30 unit SUBCUT AC Qty: 30 RF: 3 atorvastatin 80 mg tablet 80 mg PO HS Qty: 90 RF: 3 isosorbide mononitrate 60 mg tablet extended release 24 hr 60 mg PO QAM Qty: 90 RF: 3 docusate sodium [Colace] 100 mg Capsule 100 mg PO BID RF: 0 Dulera 200-5 mcg/actuation Hfa Aerosol Inhaler 2 puff INHALATION BID RF: 0 acetaminophen [Tylenol Extra Strength] 500 mg Tablet 1,000 mg PO Q6H PRN (Reason: Pain) RF: 0 hydrocodone-acetaminophen [Desha] 5-325 mg tablet 1 tab PO Q6H PRN (Reason: pain) Qty: 10 RF: 0 prochlorperazine maleate 10 mg Tablet 10 mg PO Q6H PRN (Reason: Nausea) RF: 0 lidocaine [Lidoderm] 5 % adhesive patch,medicated 1 patch topical DAILY PRN (Reason: Pain) RF: 0 meclizine 25 mg Tablet 25 mg PO Q6 PRN (Reason: dizziness) Qty: 20 RF: 0 Discharge Problem: Severe asthma with acute exacerbation Qualifiers: Asthma persistence: persistent Qualified Code(s): J45.51 - Severe persistent asthma with (acute) exacerbation
--- NOTE | 2020-08-07 14:54 | Electrocardiogram Report ---
Test Reason : Blood Pressure : / mmHG Vent. Rate : 111 BPM Atrial Rate : 111 BPM P-R Int : 146 ms QRS Dur : 082 ms QT Int : 342 ms P-R-T Axes : 033 002 060 degrees QTc Int : 465 ms Sinus tachycardia Voltage criteria for left ventricular hypertrophy Nonspecific T wave abnormality Abnormal ECG When compared with ECG of 20-JUN-2020 14:15, No significant change was found Confirmed by Dwayne Guy ([id number]) on 08/07/2020 2:54:12 PM Referred By: ED Confirmed By:Dwayne Guy
[2020-08-07 15:26] LABS: Basophils # (auto) 0.03 K/uL (0-0.2); Basophils % (auto) 0.3 %; Eosinophils % (auto) 1.1 %; Hematocrit (blood only) 41.7 % (37-47); Hemoglobin 13.3 g/dL (12.0-16.0); Immature Granulocytes # (auto) 0.02 K/uL (0.00-0.02); Immature Granulocytes % (auto) 0.2 %; Lymphocytes # (auto) 3.81 K/uL (1.2-3.4); Lymphocytes % (auto) 43.7 %; Mean Corpuscular Hemoglobin 30.3 pg (25-34); Mean Corpuscular Hgb Conc 31.9 g/dL (32-36); Mean Platelet Volume 11.6 fL (7.4-10.4); Monocytes % (auto) 5.7 %; Neutrophils # (auto) 4.26 K/uL (1.4-6.5); Platelet Count 261 K/uL (130-400); RDW Coefficient of Variation 14.2 % (11.5-14.5); RDW Standard Deviation 49.8 fL (36.4-46.3); Red Blood Count 4.39 M/uL (4.2-5.4); White Blood Count 8.72 K/uL (4.8-10.8)
[2020-08-07 15:30] LABS: Troponin I < 0.015 ng/ml (0-0.045)
[2020-08-07 15:34] LABS: Alanine Aminotransferase 24 U/L (12-78); Albumin Globulin Ratio 0.7 (0.9-2); Albumin Level 3.3 gm/dl (3.4-5.0); Alkaline Phosphatase 120 U/L (45-117); BUN Creatinine Ratio 15.1 (10-20); Bilirubin,Total 0.3 mg/dl (0.2-1); Blood Urea Nitrogen 15 mg/dl (7-18); Calcium 9.9 mg/dl (8.5-10.1); Carbon Dioxide 28 mmol/L (21-32); Chloride 111 mmol/L (98-107); Creatinine Clr Calc Pharmacy 83.1 ml/min; Est GFR (African American) 74.4; Est GFR (Non-African American) 64.2; Globulin 4.4 gm/dl (2.5-4.0); Glucose 139 mg/dl (70-99); Lipase 181 U/L (73-393); Potassium 4.4 mmol/L (3.5-5.1); Sodium 145 mmol/L (136-145); Total Protein 7.7 gm/dl (6.4-8.2)
[2020-08-07 15:37] LABS: Aspartate Aminotransferase 19 U/L (15-37)
[2020-08-07 16:19] LABS: Partial Thromboplastin Ratio 0.9; Prothrombin Time 10.2 Seconds (9.0-12.0)
[2020-08-07] MEDS ORDERED: ALBUT/IPRATROP 3MG/0.5MG NEB 3 ML VIAL NEB STA (16:46)
[2020-08-07 19:01] LABS: Base Excess ABG 0.5 mEq/L (-9-1.8); HCO3 ABG 25 mmol/L (19-24); Oxygen Saturation ABG 97.8 % (90-95); PCO2 ABG 39 mmHg (35-46); PO2 ABG 101 mmHg (80-95); pH ABG 7.42 (7.35-7.45)
[2020-08-07 19:02] LABS: Allen Test Pos (Pos)
[2020-08-07] MEDS ORDERED: PHARMACY GLYCEMIC MGMT CONSULT PRN (20:04)
[2020-08-07] MEDS ORDERED: ACETAMINOPHEN 500 MG TAB PO PRN (20:04)
[2020-08-07] MEDS ORDERED: PROCHLORPERAZINE MALEATE 10 MG TAB PO PRN (20:04)
[2020-08-07] MEDS ORDERED: DICLOFENAC SOD 1% GEL 100 GM TUBE EXT PRN (20:04)
[2020-08-07] MEDS ORDERED: NITROGLYCERIN SL 0.4 MG/TAB TAB SL PRN (20:04)
[2020-08-07] MEDS ORDERED: ONDANSETRON INJ 2 MG/ML 2 ML VIAL IV PRN (20:04)
[2020-08-07] MEDS ORDERED: ALBUT/IPRATROP 3MG/0.5MG NEB 3 ML VIAL ONE (20:25)
[2020-08-07] MEDS: ALBUT/IPRATROP 3MG/0.5MG NEB 3 ML VIAL NEB SCH ×2 (20:26→22:50)
[2020-08-07] MEDS ORDERED: MECLIZINE HCL 25 MG TAB PO PRN (20:38)
[2020-08-07] MEDS ORDERED: GLUCOSE 40% GEL 15 GM TUBE PO PRN (21:00)
[2020-08-07] MEDS ORDERED: INFLUENZA ADMINISTRATION CHARGE ONE (21:00)
[2020-08-07] MEDS ORDERED: CARBOHYDRATES FOR HYPOGLYCEMIA PO PRN (21:00)
[2020-08-07] MEDS ORDERED: INFLUENZA VIRUS QUAD VACCINE 0.5 ML SYR IM ONE (21:00)
[2020-08-07] MEDS ORDERED: GLUCAGON FOR INJ 1 MG VIAL IM PRN (21:00)
[2020-08-07] MEDS ORDERED: GLUCOSE 10 TABS/TUBE PO PRN (21:00)
[2020-08-07] MEDS ORDERED: DEXTROSE 50% 50 ML SYRINGE IV PRN (21:00)
--- NOTE | 2020-08-07 21:36 | History & Physical Report ---
Date of Service August 07, 2020 Assessment & Plan (1) Severe asthma with acute exacerbation: Suspect exacerbation due to natural gas leak in [place]. Patient reports compliance with maintenance asthma medication. No hypoxia but patient has acute respiratory distress with increased accessory muscle use, labored and increased respiratory rate ABG stat to assess for hypercapnia. Repeat if altered mental state or reduced respiratory drive. COVID-19 PCR negative Carboxyhemoglobin/methemoglobin WNL Continue usual Dulera maintenance inhaler or hospital formulary equivalent Mg sulphate 1g given in ER Duonebs Q4H Methylprednisone 125mg IV given in ER. Further doses based on clinical course. (2) Chest pain: Although she reports this is new it has been recorded multiple times on prior notes and imaging. However given CAD will repeat troponin. EKG reassuring. Most likely chest tightness related to asthma exacerbation. ?GERD - pt notes it feels different to her usual heartburn. Given alternative explanation for shortness of breath, no findings to suggest DVT, low suspicion of PE at this time. May need to be considered if not improving. (3) Obstructive sleep apnea on CPAP: Continue BiPAP at night and as needed (4) Hypertension: Continue verapamil 80 mg p.o. 3 times daily, isosorbide mononitrate 60 mg p.o. every morning, lisinopril 20 mg p.o. every morning (5) Hyperlipidemia: Continue atorvastatin 80 mg p.o. at bedtime (6) Atrial tachycardia: Notable history of this. Currently normal sinus tachycardia Continue verapamil 80 mg p.o. 3 times daily (7) Diabetes mellitus, type 2: HbA1c 7.27 January 2019. We will repeat with a.m. labs. Hold Metformin. Patient reports taking her usual insulin this morning. Due to need for steroids will consult pharmacy for glycemic control (8) GERD (gastroesophageal reflux disease): Continue pantoprazole 40 mg PO every morning (9) CAD (coronary artery disease): Continue aspirin, clopidogrel, atorvastatin (10) DVT prophylaxis: Lovenox 40 mg SQ twice daily Admission and Anticipated Discharge Date Admission Date: 08/07/2020 History of Present Illness Chief Complaint: Shortness of breath, cough Primary Care Provider: Nita Torres MD Deb IslasBerto is a 54-year-old female who presents to the ER with short ness of breath, cough, chest pain. Difficulty taking complete history from the patient due to respiratory distress and currently using BiPAP. She reports her symptoms been getting progressively worse over the last week. She has been taking all her routine medications and using her duo nebs frequently. She has been given asthma rescue packs in the past but currently does not have one and has taken no prednisone since her last hospitalization for asthma exacerbation. She reports having cold-like symptoms 1 week ago with nasal congestion. No known COVID-19 contacts, loss of taste or smell, fevers, chills. COVID-19 testing in the ER was negative. She reports associated symptom of headache for the past 3 days, this is correlated with her smelling natural gas outside her house. Just in the last few hours a natural gas leak has been confirmed in the [facility] where she lives. Regarding her chest pain. Started suddenly today around 1:00pm. Constant aching, tightness in lower chest. No worse on inspiration, palpation, position, exertion. She notes a past medical history of coronary artery disease requiring 2 stents in 2010 of a positive stress test. She denies any history of myocardial infarction. In the ER she was given an hour-long nebulizer, 125 mg IV methylprednisolone and Mg sulphate with mild improvement in her shortness of breath. Allergies Allergy/AdvReac Type Severity Reaction Status Date / Time No Known Allergies Allergy Verified 08/07/20 17:38 Home Medications Home Medications Medication Instructions Recorded Confirmed Type Dulera 2 puff INHALATION BID 12/04/18 08/07/20 History docusate sodium [Colace] 100 mg PO BID 12/04/18 08/07/20 History aspirin 81 mg tablet,delayed 81 mg PO QAM #0 tab 07/09/19 08/07/20 History release prochlorperazine maleate 10 mg PO Q6H PRN 09/24/19 08/07/20 History verapamil 80 mg tablet 80 mg PO TID #90 tab 11/04/19 08/07/20 Rx hydrocortisone 1 %-pramoxine 1 % [address] QID PRN #10 gm 12/03/19 08/07/20 Rx rectal foam acetaminophen [Tylenol Extra 1,000 mg PO Q6H PRN 12/23/19 08/07/20 History Strength] albuterol sulfate 0.63 mg/3 mL 0.63 mg INH Q6H PRN #75 ml 06/02/20 10/16/20 Rx solution for nebulization albuterol sulfate 90 mcg/actuation 2 puffs INH Q6H PRN #8 gm 03/24/20 08/07/20 Rx aerosol inhaler diclofenac sodium 1 % topical gel 2 g TOPICAL QID PRN #100 gm 03/24/20 08/07/20 Rx hydrocodone-acetaminophen [[place]] 1 tab PO Q6H PRN #10 tab 05/22/20 08/07/20 Rx lidocaine [Lidoderm] 1 patch TOPICAL DAILY PRN 06/09/20 08/07/20 History meclizine 25 mg PO Q6 PRN #20 tab 06/12/20 08/07/20 Rx atorvastatin 80 mg tablet 80 mg PO HS #90 tab 06/22/20 08/07/20 Rx clopidogrel 75 mg tablet 75 mg PO QAM #90 tab 06/22/20 08/07/20 Rx insulin NPH isoph U-100 human 100 10 - 30 unit SUBCUT AC #30 ml 06/22/20 08/07/20 Rx unit/mL subcutaneous suspension isosorbide mononitrate 60 mg 60 mg PO QAM #90 tab 06/22/20 08/07/20 Rx tablet,extended release 24 hr lisinopril 20 mg tablet 20 mg PO QAM #90 tab 06/22/20 08/07/20 Rx metformin 500 mg tablet 500 mg PO TIDM #270 tab 06/22/20 08/07/20 Rx montelukast 10 mg tablet 10 mg PO HS #90 tab 06/22/20 08/07/20 Rx pantoprazole 40 mg tablet,delayed 40 mg PO QAM #90 tab 06/22/20 08/07/20 Rx release nitroglycerin 0.4 mg sublingual 0.4 mg SUBLINGUAL Q5M PRN #100 tab 06/26/20 08/07/20 Rx tablet Past Med/Surg History Medical History Arthritis of knee CAD (coronary artery disease) CHF (congestive heart failure) Chronic back pain Chronic low back pain CSF leak Degeneration of cervical intervertebral disc External hemorrhoids Frequent falls TIA (transient ischemic attack) Urinary incontinence Vertebral artery stenosis Surgical History Facial fracture (2014) WITH RECONSTRUCTION History of bilateral tubal ligation History of cardiac cath X2 STENTS - (~2010, IN [place], [place]). NO STENTS - ([facility] @ ~2014) History of colonoscopy History of esophagogastroduodenoscopy (EGD) History of heart artery stent X2 STENTS (2010) UNSURE OF KIND. NO STENT CARDS PER PT. History of mandibular surgery S/P left knee arthroscopy S/p tibial fracture open treatment of Fx with plate/screws, Left leg Status post right foot surgery Family History Mother Breast cancer, Onset Age: 64 Type 2 diabetes mellitus Father Diabetes Coronary heart disease Type 2 diabetes mellitus Myocardial infarction, Onset Age: 52 Family/Other Hypertension sibling Denies family history of Ovarian cancer Social History Smoking Status: Former smoker Tobacco Type: Cigarettes Second Hand Exposure: No; Do You Dip or Chew Tobacco: No; Hx Alcohol Use: No Hx Substance Use: No Preferred Language: Beninese Communication Ability: Effective Visual Impairment: No Limitations Director Community Organization Required: No Beliefs That Will Affect Care: None marital status: Current Living Situation: Spouse Other Information That Helps Us Care for You: No Feels Safe at Home: Yes Safety Concerns: Feels Safe At This Time Assistive Devices: CPAP, Denture - Upper and Glasses Review of Systems Review of Systems: All systems reviewed & are unremarkable except as noted in HPI & below Physical Exam Constitutional: well developed, + acute distress (Respiratory) and + morbidly obese; + not well nourished Eyes: + anicteric sclerae; normal pupil size Neck: normal visual inspection and trachea midline; no tracheal deviation Respiratory: + respiratory distress, + labored breathing, + retractions, + uses accessory muscles and + cough (Frequent dry); + not able to speak in complete sentence Auscultation: + diminished lung sounds (Throughout) and + crackles (Coarse breath sounds throughout); no rales, no rhonchi and no wheezes Cardiovascular: Rate/Rhythm: regular rhythm and + tachycardic Heart Sounds: no murmur Vessels: no JVD Extremities: normal capillary refill; no calf tenderness and no pedal edema Gastrointestinal (Abdomen): normal bowel sounds, soft, nontender, no hepatosplenomegaly Musculoskeletal: no cyanosis or clubbing, extremities motor strength 5/5 Skin: no rashes, warm and dry Neurologic: moves all extremities and awake; no focal motor deficits and not confused Psychiatric: Orientation: alert and oriented x 3 Affect: + anxious affect Genitourinary: no CVA tenderness Lymphatic: no cervical or axillary lymphadenopathy Results & Data Results & Data ([facility]) Vital Signs (Past 12 Hours) Vital Signs Temp Pulse Pulse Resp BP Pulse Ox 08/07/20 17:11 88 23 99 08/07/20 16:03 101 H 15 08/07/20 16:02 102 H 22 107/75 08/07/20 16:00 102 H 24 08/07/20 15:30 94 H 16 125/86 100 08/07/20 15:11 91 H 19 100 08/07/20 15:00 92 H 17 136/73 08/07/20 14:30 95 H 16 133/84 98 08/07/20 14:02 96 H 19 96/62 L 98 08/07/20 14:00 96 H 25 H 100 08/07/20 13:30 102 H 29 H 133/76 96 08/07/20 13:01 106 H 19 134/106 H 96 08/07/20 13:00 108 H 19 97 08/07/20 12:55 108 H 29 H 123/69 93 08/07/20 12:40 110 H 29 H 95 08/07/20 12:36 36.8 C 110 H 24 120/71 96 Diagnostic Findings XR chest 1V portable IMPRESSION: No acute cardiopulmonary findings. ECG Indication: chest pain Rate (beats per minute): 111 Findings: + other (Voltage criteria for left ventricular hypertrophy); no acute ischemic change Comparison ECG Date: from (June 20, 2020) Change: no significant change Code Status & VTE Plan Code Status Full VTE Prophylaxis Plan VTE Prophylaxis will be ordered: Yes PG Care Time/CCT Total # of Minutes Spent Total Time Spent with Patient: Total time spent is greater than 50% in coordination of care (as documented) at patient's floor/unit and/or counseling patient: Coding Level of Care Code 61068 OBS Care - Level 3 Diagnoses Severe asthma with acute exacerbation J45.51 Asthma persistence: persistent Chest pain R07.9 Obstructive sleep apnea on CPAP G47.33; Z99.89 Hypertension I10 Hypertension type: essential hypertension Hyperlipidemia E78.5 Hyperlipidemia type: unspecified Atrial tachycardia I47.1 Diabetes mellitus, type 2 E11.65; Z79.4 Diabetes mellitus complication status: with hyperglycemia Diabetes mellitus prison insulin use: with predatory animal exterminator use GERD (gastroesophageal reflux disease) K21.9 Esophagitis presence: esophagitis presence not specified CAD (coronary artery disease) I25.110 Associated angina: with unstable angina Coronary Disease-Associated Artery/Lesion type: [place] artery [place] vs. transplanted heart: [place] heart DVT prophylaxis Z29.9 (1) Diabetes mellitus, type 2 Diabetes mellitus complication status: with hyperglycemia Diabetes mellitus predatory animal exterminator insulin use: with predatory animal exterminator use Qualified Code(s): E11.65 - Type 2 diabetes mellitus with hyperglycemia; Z79.4 - half-way (current) use of insulin (2) CAD (coronary artery disease) Associated angina: with unstable angina Coronary Disease-Associated Artery/Lesion type: [place] artery [place] vs. transplanted heart: [place] heart Qualified Code(s): I25.110 - Atherosclerotic heart disease of [place] coronary artery with unstable angina pectoris (3) Hyperlipidemia Hyperlipidemia type: unspecified Qualified Code(s): E78.5 - Hyperlipidemia, unspecified (4) GERD (gastroesophageal reflux disease) Esophagitis presence: esophagitis presence not specified Qualified Code(s): K21.9 - Gastro-esophageal reflux disease without esophagitis (5) Hypertension Hypertension type: essential hypertension Qualified Code(s): I10 - Essential (primary) hypertension (6) Severe asthma with acute exacerbation Asthma persistence: persistent Qualified Code(s): J45.51 - Severe persistent asthma with (acute) exacerbation
[2020-08-07] MEDS ORDERED: methylPREDNISolone 60 MG in SYRINGE 0 ML IV STA (21:38)
[2020-08-07] MEDS ORDERED: INSULIN HUMAN REGULAR PER UNIT 10 UNITS in SYRINGE 9.9 ML IV ONE (21:45)
[2020-08-07] MEDS ORDERED: LANTUS PER UNIT CHARGE SQ ONE (22:00)
[2020-08-07] MEDS: INSULIN ASPART 100 UNITS/ML 3 ML PEN SC SCH (22:13)
[2020-08-07] MEDS: VERAPAMIL HCL 40 MG TAB PO SCH (22:17)
[2020-08-07] MEDS: MONTELUKAST SODIUM 10 MG TABLET PO SCH (22:17)
[2020-08-07] MEDS: DOCUSATE SODIUM 100 MG CAP PO SCH (22:18)
[2020-08-07] MEDS: ATORVASTATIN 40 MG TAB PO SCH (22:18)
[2020-08-07] MEDS: ENOXAPARIN INJ 40 MG/0.4 ML SYR SQ SCH (22:25)
[2020-08-08] MEDS: INSULIN ASPART 100 UNITS/ML 3 ML PEN SC SCH ×6 (00:23→20:17)
[2020-08-08] MEDS: ALBUT/IPRATROP 3MG/0.5MG NEB 3 ML VIAL NEB SCH ×6 (03:06→23:03)
--- NOTE | 2020-08-08 08:31 | Hospitalist Progress Note ---
Date of Service August 08, 2020 Assessment & Plan (1) Severe asthma with acute exacerbation: 54 yo F admitted for asthma exacerbation following exposure to gas leak in [facility] for 2 days. 1) Asthma Exacerbation - Methylpred 40 mg IV TID - Duonebs Q4 - Incentive Spirometry - home inhalers of dulera + prn albuterol - singulair 10 mg HS - O2 as needed for SPo2 <90% - COVID 19 negative, pna or viral process unlikely. - titrate down steroids with improvement in pulm exam. Pt likely needs adjustment of home regimen to optimize at home. 2) CAD - continue daily statin, asa 3) HTN - continue imdur, lisinopril, verapamil 4) DM2 - sliding scale insulin for coverage - A1c pending 5) atrial tachycardia - hx, per [facility] cards - apparent on tele. abnormal baseline however does not appear to be abnormal SVT. - continue to monitor and control with home cardiac medications 6) GERD - PPI 40 mg daily - zofran for nausea PRN DVT ppx: lovenox 40 mg FEN/GI: advance as tolerated, encourage PO fluid intake Code Status: Full Code Dispo: Med/Surg with Tele (2) CAD (coronary artery disease): (3) Hypertension: (4) Atrial tachycardia: (5) Hyperlipidemia: (6) Post traumatic stress disorder: (7) Diabetes mellitus, type 2: (8) GERD (gastroesophageal reflux disease): (9) Osteoarthritis: (10) Obstructive sleep apnea on CPAP: Admission and Anticipated Discharge Date Admission Date: August 07, 2020 Supervising Physician Co-Signing Physician Notes I personally examined the patient and verified all duran points of history and exam, discussed case, and agree with decision making with Dr Chang feeling better but still dyspnic. ongoing mild conversational dyspnea as well. does feel less sob than when she came in though. vitals noted nad heent nc at mmm lungs w diffuse expiratory wheeze fortunately good air entry on inhalation and no accessory muscles good mild conversational dyspnea effort skin no rashes no pallor or icterus. asthma exac -improving but still ill -continue current care and follow closely -anticipate improvement Subjective 54 yo F admitted for asthma exacerbation secondary to gas leak in [place]. Feeling better this AM, breathing easier, able to tolerate advancement of diet from clear liquids to thick liquids. No chest pressure or pain. continues to be short of breath if up and walking around. comfortable on room oxygen. Review of Systems Constitutional: no fever and no chills Respiratory: + cough, + dyspnea on exertion and + wheezing; no change in sputum, no dyspnea and no sputum production Cardiovascular: no chest pain and no chest pain with activity Physical Exam Physical Exam: Constitutional: obese, in no apparent distress, sitting comfortably in bed. Eyes: EOMI, pupils equal and reactive bilaterally, no scleral icterus Cardiac: RRR, no murmurs, gallops or rubs. Normal S1, S2 Pulm: CTA BL, end expiratory wheezing, diffuse rhonchi in left mid to lower lungs, audibly wheezing with deep breaths, some conversational dyspnea Results & Data Results & Data ([facility]) Vital Signs (Past 12 Hours) Vital Signs Temp Pulse Pulse Resp BP Pulse Ox 08/08/20 07:48 37.0 C 105 H 18 157/78 H 97 08/08/20 07:25 114 H 20 98 08/08/20 03:28 93 H 27 H 98 08/08/20 03:05 119 H 20 98 08/07/20 23:00 36.7 C 98 H 20 144/74 H 96 08/07/20 22:53 106 H 26 H 96 08/07/20 22:52 106 H 26 H 96 Laboratory Results WBC 8.72 K/uL (4.8-10.8) 08/07/20 14:55 RBC 4.39 M/uL (4.2-5.4) 08/07/20 14:55 Hgb 13.3 g/dL (12.0-16.0) 08/07/20 14:55 Hct 41.7 % (37-47) 08/07/20 14:55 MCV 95.0 fL (80-100) 08/07/20 14:55 MCH 30.3 pg (25-34) 08/07/20 14:55 MCHC 31.9 g/dL (32-36) L 08/07/20 14:55 RDW Std Deviation 49.8 fL (36.4-46.3) H 08/07/20 14:55 RDW Coeff of Majo 14.2 % (11.5-14.5) 08/07/20 14:55 Plt Count 261 K/uL (130-400) 08/07/20 14:55 MPV 11.6 fL (7.4-10.4) H 08/07/20 14:55 Immature Gran % (Auto) 0.2 % 08/07/20 14:55 Neut % (Auto) 49.0 % 08/07/20 14:55 Lymph % (Auto) 43.7 % 08/07/20 14:55 Dundy % (Auto) 5.7 % 08/07/20 14:55 Eos % (Auto) 1.1 % 08/07/20 14:55 Baso % (Auto) 0.3 % 08/07/20 14:55 Neut # (Auto) 4.26 K/uL (1.4-6.5) 08/07/20 14:55 Lymph # (Auto) 3.81 K/uL (1.2-3.4) H 08/07/20 14:55 Dundy # (Auto) 0.50 K/uL (0.11-0.59) 08/07/20 14:55 Eos # (Auto) 0.10 K/uL (0-0.5) 08/07/20 14:55 Baso # (Auto) 0.03 K/uL (0-0.2) 08/07/20 14:55 Immature Gran # (Auto) 0.02 K/uL (0.00-0.02) 08/07/20 14:55 PT 10.2 Seconds (9.0-12.0) 08/07/20 15:54 INR 1.0 (0.9-1.1) 08/07/20 15:54 APTT 24.0 Seconds (21.0-31.0) 08/07/20 15:54 PTT Ratio 0.9 08/07/20 15:54 ABG pH 7.42 (7.35-7.45) 08/07/20 18:46 ABG pCO2 39 mmHg (35-46) 08/07/20 18:46 ABG pO2 101 mmHg (80-95) H 08/07/20 18:46 ABG HCO3 25 mmol/L (19-24) H 08/07/20 18:46 ABG O2 Saturation 97.8 % (90-95) H 08/07/20 18:46 ABG Base Excess 0.5 mEq/L (-9-1.8) 08/07/20 18:46 Luis Test Pos (Pos) 08/07/20 18:46 Carboxyhemoglobin 0.0 % THgb 08/07/20 15:54 Methemoglobin 1.1 % (0.0-1.5) 08/07/20 15:54 Barometric Pressure 735.3 mm/Hg 08/07/20 18:46 Oxygen Given 30% 08/07/20 18:46 Sodium 145 mmol/L (136-145) 08/07/20 14:55 Potassium 4.4 mmol/L (3.5-5.1) 08/07/20 14:55 Chloride 111 mmol/L (98-107) H 08/07/20 14:55 Carbon Dioxide 28 mmol/L (21-32) 08/07/20 14:55 Anion Gap 6.0 (3-11) 08/07/20 14:55 BUN 15 mg/dl (7-18) 08/07/20 14:55 Creatinine 0.99 mg/dl (0.6-1.2) 08/07/20 14:55 Est Cr Clr Drug Dosing 83.1 ml/min 08/07/20 14:55 Est GFR ( Amer) 74.4 08/07/20 14:55 Est GFR (Non-Af Amer) 64.2 08/07/20 14:55 BUN/Creatinine Ratio 15.1 (-20) 08/07/20 14:55 Glucose 139 mg/dl (70-99) H 08/07/20 14:55 POC Glucose 168 mg/dl (70-99) H 08/08/20 11:53 Calcium 9.9 mg/dl (8.5-10.1) 08/07/20 14:55 Total Bilirubin 0.3 mg/dl (0.2-1) 08/07/20 14:55 AST 19 U/L (15-37) 08/07/20 14:55 ALT 24 U/L (12-78) 08/07/20 14:55 Alkaline Phosphatase 120 U/L (45-117) H 08/07/20 14:55 Troponin I < 0.015 ng/ml (0-0.045) 08/07/20 18:46 Total Protein 7.7 gm/dl (6.4-8.2) 08/07/20 14:55 Albumin 3.3 gm/dl (3.4-5.0) L 08/07/20 14:55 Globulin 4.4 gm/dl (2.5-4.0) H 08/07/20 14:55 Albumin/Globulin Ratio 0.7 (0.9-2) L 08/07/20 14:55 Lipase 181 U/L (73-393) 08/07/20 14:55 COVID-19 Eval Order Covid19 Done at [facility] 08/07/20 13:45 COVID-19 PCR NEGATIVE (Negative) 08/07/20 13:45 Resident Activity Tracking Resident Involvement: Resident Care Provided Care Provided: Adult Hospital Medicine (1) Diabetes mellitus, type 2 Diabetes mellitus complication status: with hyperglycemia Diabetes mellitus long term care phlebotomist insulin use: with long term care phlebotomist use Qualified Code(s): E11.65 - Type 2 diabetes mellitus with hyperglycemia; Z79.4 - group home (current) use of insulin (2) CAD (coronary artery disease) Associated angina: with unstable angina Coronary Disease-Associated Artery/Lesion type: [place] artery [place] vs. transplanted heart: [place] heart Qualified Code(s): I25.110 - Atherosclerotic heart disease of [place] coronary ar deborah with unstable angina pectoris (3) Hyperlipidemia Hyperlipidemia type: unspecified Qualified Code(s): E78.5 - Hyperlipidemia, unspecified (4) GERD (gastroesophageal reflux disease) Esophagitis presence: esophagitis presence not specified Qualified Code(s): K21.9 - Gastro-esophageal reflux disease without esophagitis (5) Hypertension Hypertension type: essential hypertension Qualified Code(s): I10 - Essential (primary) hypertension (6) Severe asthma with acute exacerbation Asthma persistence: persistent Qualified Code(s): J45.51 - Severe persistent asthma with (acute) exacerbation
[2020-08-08] MEDS: lisinopril 20 MG TAB PO SCH (09:47)
[2020-08-08] MEDS: VERAPAMIL HCL 40 MG TAB PO SCH ×3 (09:47→20:15)
[2020-08-08] MEDS: PANTOprazole 40 MG TAB PO SCH (09:47)
[2020-08-08] MEDS: DOCUSATE SODIUM 100 MG CAP PO SCH ×2 (09:47→20:30)
[2020-08-08] MEDS: ISOSORBIDE MONO EXTENDED REL 60 MG TABCR PO SCH (09:47)
[2020-08-08] MEDS: CLOPIDOGREL BISULFATE 75 MG TAB PO SCH (09:47)
[2020-08-08] MEDS: ASPIRIN 81 MG ECTAB PO SCH (09:47)
[2020-08-08] MEDS: FLUTICASONE/VILANTEROL 200/25MCG 14 PUFFS/INHALER INH SCH (09:48)
[2020-08-08] MEDS: LIDOCAINE 5% 1 PATCH TD SCH (09:52)
[2020-08-08] MEDS: INSULIN HUMAN NPH SC SCH ×2 (09:53→18:21)
[2020-08-08] MEDS: ENOXAPARIN INJ 40 MG/0.4 ML SYR SQ SCH ×2 (10:12→20:16)
[2020-08-08] MEDS: ACETAMINOPHEN 325 MG TAB PO PRN (10:12)
[2020-08-08] MEDS: methylPREDNISolone 40 MG in SYRINGE 0 ML IV SCH ×3 (10:12→20:14)
--- NOTE | 2020-08-08 14:27 | Pharmacy Report ---
Glycemic Control Consultation - Date of Service August 08, 2020 - Scope Scope: Glycemic Pharmacist consulted for glycemic control and to write orders per [facility] inpatient glycemic control protocol. - Objective Weight: 114.8 kg Accuchecks BSG (last 24hrs): 08/07/20 08/07/20 08/07/20 14:55 21:22 21:25 Glucose 139 H POC Glucose 377 H* 352 H* 08/08/20 08/08/20 08/08/20 00:05 00:07 03:56 Glucose POC Glucose 313 H* 292 H 238 H 08/08/20 08/08/20 07:49 11:53 Glucose POC Glucose 204 H 168 H Laboratory Data (last 24hrs): 08/07/20 14:55 Potassium 4.4 Carbon Dioxide 28 Anion Gap 6.0 Creatinine 0.99 Est Cr Clr Drug Dosing 83.1 - Recent Pertinent Medications Outpatient Anti-diabetic Regimen: * Metformin 500mg TIDm * NPH 10-20 units AC * A1c = 7.7 % 02/08/19, updated A1c ordered Risk Factors for Insulin Resistance: * Steroids: Solu-medrol - 125mg x1 & 60mg x 1 yesterday then 40mg IV TID today * Diet: Clears, Type 2 DM - Assessment & Plan Assessment & Plan: ASSESSMENT: * 54 year old female admitted with SOB, cough, chest pain, asthma exacerbation, possibly d/t natural gas leak last evening. * Type 2 diabetic, steroid induced hyperglycemia, required 10 units IV regular insulin, and one does of Lantus last night, will tighten Novolog parameters and use NPH for basal as patient is on NPH at home and IV Steroids. * Check blood sugars overnight tonight. PLAN FOR INPATIENT GLYCEMIC CONTROL: * Holding outpatient oral diabetes medications * Basal insulin * NPH 30 units SQ BID with meals * Bolus insulin * NovoLog per scale ACHS or Q6hrs while NPO and at 0000 and 0400 * Goal Range: Low 110 mg/dL - High 140 mg/dL * Correction Factor: 15 mg/dL/unit * Nutritional / Prandial insulin per carb ratio of 1 unit per 4 grams CHO consumed * Please note that the plan above was derived based on current level of insulin resistance and hospital stress. These recommendations are appropriate for inpatient admission only. Plan of care upon discharge will need to be reassessed to avoid potential outpatient hypo/hyperglycemia. Thank you.
--- NOTE | 2020-08-08 17:27 | Billing Data ---
Date of Service August 08, 2020 Coding Level of Care Code 03664 Subseq Obs Care Lvl 3
[2020-08-08] MEDS: ATORVASTATIN 40 MG TAB PO SCH (20:15)
[2020-08-08] MEDS: MONTELUKAST SODIUM 10 MG TABLET PO SCH (20:15)
[2020-08-09] MEDS: INSULIN ASPART 100 UNITS/ML 3 ML PEN SC SCH ×6 (01:05→20:37)
[2020-08-09] MEDS: ALBUT/IPRATROP 3MG/0.5MG NEB 3 ML VIAL NEB SCH ×6 (02:52→22:17)
[2020-08-09] MEDS: ASPIRIN 81 MG ECTAB PO SCH (08:12)
[2020-08-09] MEDS: VERAPAMIL HCL 40 MG TAB PO SCH ×3 (08:12→20:38)
[2020-08-09] MEDS: PANTOprazole 40 MG TAB PO SCH (08:12)
[2020-08-09] MEDS: lisinopril 20 MG TAB PO SCH (08:12)
[2020-08-09] MEDS: DOCUSATE SODIUM 100 MG CAP PO SCH ×2 (08:12→20:42)
[2020-08-09] MEDS: LIDOCAINE 5% 1 PATCH TD SCH (08:12)
[2020-08-09] MEDS: ISOSORBIDE MONO EXTENDED REL 60 MG TABCR PO SCH (08:12)
[2020-08-09] MEDS: FLUTICASONE/VILANTEROL 200/25MCG 14 PUFFS/INHALER INH SCH (08:12)
[2020-08-09] MEDS: CLOPIDOGREL BISULFATE 75 MG TAB PO SCH (08:12)
[2020-08-09] MEDS: INSULIN HUMAN NPH SC SCH ×2 (08:13→17:21)
[2020-08-09] MEDS: ENOXAPARIN INJ 40 MG/0.4 ML SYR SQ SCH ×3 (08:22→20:44)
[2020-08-09] MEDS: methylPREDNISolone 40 MG in SYRINGE 0 ML IV SCH ×3 (08:22→20:38)
--- NOTE | 2020-08-09 12:50 | Hospitalist Progress Note ---
Date of Service August 09, 2020 Assessment & Plan (1) Severe asthma with acute exacerbation: 54 yo F admitted for asthma exacerbation following exposure to gas leak in [facility] for 2 days. 1) Asthma Exacerbation : improving - Methylpred 40 mg IV TID - Duonebs Q4 - Incentive Spirometry - singulair 10 mg HS - O2 as needed for SPo2 <90% - COVID 19 negative, pna or viral process unlikely. - titrate down steroids with improvement in pulm exam. Pt likely needs adj ustment of home regimen to optimize at home. Currently on Dulera 200/5 at home, would benefit from switching to 400/10 daily. 2) CAD - continue daily statin, asa 3) HTN - continue imdur, lisinopril, verapamil 4) DM2 - pharmacy consult for glycemic control; baseline Dm2 with concurrent steroid use - sliding scale insulin for coverage - A1c pending monday 5) atrial tachycardia - hx, per [facility] cards - apparent on tele. abnormal baseline however does not appear to be abnormal SVT. - continue to monitor and control with home cardiac medications 6) GERD - PPI 40 mg daily - zofran for nausea PRN DVT ppx: lovenox 40 mg FEN/GI: Dm2, cardiac diet Code Status: Full Code Dispo: Med/Surg with Tele (2) CAD (coronary artery disease): (3) Hypertension: (4) Atrial tachycardia: (5) Hyperlipidemia: (6) Post traumatic stress disorder: (7) Diabetes mellitus, type 2: (8) GERD (gastroesophageal reflux disease): (9) Osteoarthritis: (10) Obstructive sleep apnea on CPAP: Admission and Anticipated Discharge Date Admission Date: August 07, 2020 Supervising Physician Co-Signing Physician Notes I personally examined the patient and verified all duran points of history and exam, discussed case, and agree with decision making with Dr Chang less dyspnea than yesterday - less conversational but still a lot of KLINE. cough wtih feeling like she needs to bring something up but nothign comes - that is getting less as day progresses vitals noted nad heent nc at mmm lungs w faint wheeze diffusely throughout, good air entry on inhalation and no accessory muscles good now no conversational dyspnea but looks fatigued from talking, good effort skin no rashes no pallor or icterus. asthma exac -improving but still ill -continue current care and follow closely, hopefully can start to wean steroids by tomorrow - notes gas leak cleared and they are able to return home - so once she is better will have safe environment otherwise as above Subjective improving with breathing this morning. states her cough has worsened but mucus still not coming up. has been wearing the cpap all night and partially throughout the day. also concerned for some redness of the upper chest and midsternal chest pain, worse when she coughs. Review of Systems Constitutional: no fever, no chills, no body aches and no fatigue Respiratory: + cough; no dyspnea Cardiovascular: + chest pain; no dyspnea and no edema Gastrointestinal: no abdominal pain, no nausea, no vomiting, no constipation and no diarrhea/loose stools Genitourinary: no dysuria Physical Exam Physical Exam: Constitutional: obese, in no apparent distress, sitting comfortably in bed. Cardiac: RRR, no murmurs, gallops or rubs. Normal S1, S2 Pulm: moving more air bilaterally, loud rhonchorous breath sounds all the way through Chest: mild reddening of the chest between clavicle and sternal notch. TTP of sternum/costochondral junctions Results & Data Results & Data ([facility]) Vital Signs (Past 12 Hours) Vital Signs Temp Pulse Pulse Resp BP Pulse Ox 08/09/20 11:19 36.8 C 91 H 20 117/65 93 08/09/20 11:15 93 H 18 96 08/09/20 07:44 36.9 C 91 H 22 111/64 92 08/09/20 07:40 100 H 24 94 08/09/20 07:12 65 08/09/20 03:43 36.7 C 82 18 121/68 97 08/09/20 02:55 78 78 18 98 Laboratory Results WBC 8.72 K/uL (4.8-10.8) 08/07/20 14:55 RBC 4.39 M/uL (4.2-5.4) 08/07/20 14:55 Hgb 13.3 g/dL (12.0-16.0) 08/07/20 14:55 Hct 41.7 % (37-47) 08/07/20 14:55 MCV 95.0 fL (80-100) 08/07/20 14:55 MCH 30.3 pg (25-34) 08/07/20 14:55 MCHC 31.9 g/dL (32-36) L 08/07/20 14:55 RDW Std Deviation 49.8 fL (36.4-46.3) H 08/07/20 14:55 RDW Coeff of Majo 14.2 % (11.5-14.5) 08/07/20 14:55 Plt Count 261 K/uL (130-400) 08/07/20 14:55 MPV 11.6 fL (7.4-10.4) H 08/07/20 14:55 Immature Gran % (Auto) 0.2 % 08/07/20 14:55 Neut % (Auto) 49.0 % 08/07/20 14:55 Lymph % (Auto) 43.7 % 08/07/20 14:55 Greene % (Auto) 5.7 % 08/07/20 14:55 Eos % (Auto) 1.1 % 08/07/20 14:55 Baso % (Auto) 0.3 % 08/07/20 14:55 Neut # (Auto) 4.26 K/uL (1.4-6.5) 08/07/20 14:55 Lymph # (Auto) 3.81 K/uL (1.2-3.4) H 08/07/20 14:55 Greene # (Auto) 0.50 K/uL (0.11-0.59) 08/07/20 14:55 Eos # (Auto) 0.10 K/uL (0-0.5) 08/07/20 14:55 Baso # (Auto) 0.03 K/uL (0-0.2) 08/07/20 14:55 Immature Gran # (Auto) 0.02 K/uL (0.00-0.02) 08/07/20 14:55 PT 10.2 Seconds (9.0-12.0) 08/07/20 15:54 INR 1.0 (0.9-1.1) 08/07/20 15:54 APTT 24.0 Seconds (21.0-31.0) 08/07/20 15:54 PTT Ratio 0.9 08/07/20 15:54 ABG pH 7.42 (7.35-7.45) 08/07/20 18:46 ABG pCO2 39 mmHg (35-46) 08/07/20 18:46 ABG pO2 101 mmHg (80-95) H 08/07/20 18:46 ABG HCO3 25 mmol/L (19-24) H 08/07/20 18:46 ABG O2 Saturation 97.8 % (90-95) H 08/07/20 18:46 ABG Base Excess 0.5 mEq/L (-9-1.8) 08/07/20 18:46 Luis Test Pos (Pos) 08/07/20 18:46 Carboxyhemoglobin 0.0 % THgb 08/07/20 15:54 Methemoglobin 1.1 % (0.0-1.5) 08/07/20 15:54 Barometric Pressure 735.3 mm/Hg 08/07/20 18:46 Oxygen Given 30% 08/07/20 18:46 Sodium 145 mmol/L (136-145) 08/07/20 14:55 Potassium 4.4 mmol/L (3.5-5.1) 08/07/20 14:55 Chloride 111 mmol/L (98-107) H 08/07/20 14:55 Carbon Dioxide 28 mmol/L (21-32) 08/07/20 14:55 Anion Gap 6.0 (3-11) 08/07/20 14:55 BUN 15 mg/dl (7-18) 08/07/20 14:55 Creatinine 0.99 mg/dl (0.6-1.2) 08/07/20 14:55 Est Cr Clr Drug Dosing 83.1 ml/min 08/07/20 14:55 Est GFR ( Amer) 74.4 08/07/20 14:55 Est GFR (Non-Af Amer) 64.2 08/07/20 14:55 BUN/Creatinine Ratio 15.1 (10-20) 08/07/20 14:55 Glucose 139 mg/dl (70-99) H 08/07/20 14:55 POC Glucose 244 mg/dl (70-99) H 08/09/20 11:33 Calcium 9.9 mg/dl (8.5-10.1) 08/07/20 14:55 Total Bilirubin 0.3 mg/dl (0.2-1) 08/07/20 14:55 AST 19 U/L (15-37) 08/07/20 14:55 ALT 24 U/L (12-78) 08/07/20 14:55 Alkaline Phosphatase 120 U/L (45-117) H 08/07/20 14:55 Troponin I < 0.015 ng/ml (0-0.045) 08/07/20 18:46 Total Protein 7.7 gm/dl (6.4-8.2) 08/07/20 14:55 Albumin 3.3 gm/dl (3.4-5.0) L 08/07/20 14:55 Globulin 4.4 gm/dl (2.5-4.0) H 08/07/20 14:55 Albumin/Globulin Ratio 0.7 (0.9-2) L 08/07/20 14:55 Lipase 181 U/L (73-393) 08/07/20 14:55 COVID-19 Eval Order Covid19 Done at [facility] 08/07/20 13:45 COVID-19 PCR NEGATIVE (Negative) 08/07/20 13:45 Resident Activity Tracking Resident Involvement: Resident Care Provided Care Provided: Adult Hospital Medicine (1) Diabetes mellitus, type 2 Diabetes mellitus complication status: with hyperglycemia Diabetes mellitus long term care phlebotomist insulin use: with long term care phlebotomist use Qualified Code(s): E11.65 - Type 2 diabetes mellitus with hyperglycemia; Z79.4 - long term care phlebotomist (current) use of insulin (2) CAD (coronary artery disease) Associated angina: with unstable angina Coronary Disease-Associated Artery/Lesion type: [place] artery [place] vs. transplanted heart: [place] heart Qualified Code(s): I25.110 - Atherosclerotic heart disease of [place] coronary artery with unstable angina pectoris (3) Hyperlipidemia Hyperlipidemia type: unspecified Qualified Code(s): E78.5 - Hyperlipidemia, unspecified (4) GERD (gastroesophageal reflux disease) Esophagitis presence: esophagitis presence not specified Qualified Code(s): K21.9 - Gastro-esophageal reflux disease without esophagitis (5) Hypertension Hypertension type: essential hypertension Qualified Code(s): I10 - Essential (primary) hypertension (6) Severe asthma with acute exacerbation Asthma persistence: persistent Qualified Code(s): J45.51 - Severe persistent asthma with (acute) exacerbation
--- NOTE | 2020-08-09 14:01 | Pharmacy Report ---
Pharmacy Glycemic Short Note 2 - Date of Service August 09, 2020 - Glycemic Short BSG Results (Last 24 hours): 08/08/20 08/08/20 08/09/20 17:27 19:45 01:04 POC Glucose 164 H 278 H 179 H 08/09/20 08/09/20 08/09/20 04:26 07:40 11:33 POC Glucose 181 H 160 H 244 H OUTPATIENT ANTIDIABETIC REGIMEN: * Metformin 500mg TIDm * NPH 10-20 units AC * A1c = 7.7 % 02/08/19, updated A1c ordered Risk Factors for Insulin Resistance: * Steroids: Solu-medrol 40mg IV TID * Diet: Clears, Type 2 DM ASSESSMENT: 08/09/20 * Patient received 141 units of insulin yesterday, 60 units basal * Blood sugars still above goal d/t IV steroids, increase NPH and tighten CF/CR * A1c pending 08/08/20 * 54 year old female admitted with SOB, cough, chest pain, asthma exacerbation, possibly d/t natural gas leak last evening. * Type 2 diabetic, steroid induced hyperglycemia, required 10 units IV regular insulin, and one does of Lantus last night, will tighten Novolog parameters and use NPH for basal as patient is on NPH at home and IV Steroids. * Check blood sugars overnight tonight. PLAN FOR INPATIENT GLYCEMIC CONTROL: * Holding outpatient oral diabetes medications * Basal insulin - increase * NPH 40 units SQ BID with meals * Bolus insulin * NovoLog per scale ACHS or Q6hrs while NPO * Goal Range: Low 110 mg/dL - High 140 mg/dL * tighten: Correction Factor: 10 mg/dL/unit * tighten: Nutritional / Prandial insulin per carb ratio of 1 unit per 3 grams CHO consumed PLAN FOR DISCHARGE: * TBD
--- NOTE | 2020-08-09 17:02 | Billing Data ---
Date of Service August 09, 2020 Coding Level of Care Code 87506 Subseq Hosp Care Lvl 3
[2020-08-09] MEDS: MONTELUKAST SODIUM 10 MG TABLET PO SCH (20:38)
[2020-08-09] MEDS: ATORVASTATIN 40 MG TAB PO SCH (20:38)
[2020-08-10] MEDS: ALBUT/IPRATROP 3MG/0.5MG NEB 3 ML VIAL NEB SCH ×6 (03:03→23:40)
[2020-08-10 06:46] LABS: Estimated Average Glucose 192 mg/dl; Hemoglobin A1C 8.3 % (4.5-5.6)
[2020-08-10] MEDS: VERAPAMIL HCL 40 MG TAB PO SCH ×3 (08:28→21:47)
[2020-08-10] MEDS: ISOSORBIDE MONO EXTENDED REL 60 MG TABCR PO SCH (08:28)
[2020-08-10] MEDS: methylPREDNISolone 40 MG in SYRINGE 0 ML IV SCH ×3 (08:28→21:50)
[2020-08-10] MEDS: PANTOprazole 40 MG TAB PO SCH (08:29)
[2020-08-10] MEDS: ASPIRIN 81 MG ECTAB PO SCH (08:29)
[2020-08-10] MEDS: CLOPIDOGREL BISULFATE 75 MG TAB PO SCH (08:29)
[2020-08-10] MEDS: FLUTICASONE/VILANTEROL 200/25MCG 14 PUFFS/INHALER INH SCH (08:29)
[2020-08-10] MEDS: lisinopril 20 MG TAB PO SCH (08:29)
[2020-08-10] MEDS: LIDOCAINE 5% 1 PATCH TD SCH (08:30)
[2020-08-10] MEDS: INSULIN HUMAN NPH SC SCH ×2 (08:31→17:37)
[2020-08-10] MEDS: INSULIN ASPART 100 UNITS/ML 3 ML PEN SC SCH ×4 (08:34→21:51)
[2020-08-10] MEDS: ACETAMINOPHEN 325 MG TAB PO PRN (08:35)
--- NOTE | 2020-08-10 08:36 | Medical Student Progress Note ---
Date of Service August 10, 2020 Assessment & Plan (1) Severe asthma with acute exacerbation: Ms. Lara is a 54 y/o F with a hx of asthma and possible COPD (no recent PFT), SMITA on CPAP, HTN, HLD, DM2 (A1c 8.3), GERD, CAD (s/p 2x LCX stents in 2011), former smoker (20 pk yrs) who is admitted for hypoxemic respiratory failure following cold symptoms and exposure to natural gas leak. She has much improved, but not near her baseline status. hypoxemic respiratory failure pt with hx of asthma, possible COPD exacerbation 2/2 preceding cold symptoms and natural gas exposure continue breo-ellipta continue methylpred 40mg IV TID continue duoneb q4h continue incentive spirometry continue home singulair 10mg HS continue o2 supp PRN sat >90% continue CPAP when sleeping given former smoking hx (20pk yrs), concern for COPD exacerbation as well will give azithromycin 500mg IV first day, then 250mg IV QD 4 days for COPD exacerbation advise possible increase in dulera to 10/400 on discharge will need to f/u with pulmonology on discharge for PFT chest pain likely costochondritis 2/2 coughing continue voltaren PRN R leg pain new onset this AM concern for DVT given sedentary condition during this admission ordered duplex to r/o DVT CAD s/p 2x LCX stents in 2011 2019: echocardiogram normal, no evidence of myocardial ischemia on dobutamine stress echo Cardiac Catheterization in 2014: NORMAL CORONARY ARTERIES continue home statin, aspirin, imdur HTN continue home lisinopril, verapamil DM2 hold home glargine and tresiba continue ISS while admitted 08/10 A1c: 8.3 advise discussing better glucose control with PCP atrial tachycardia managed with home verapamil GERD continue home pantoprazole zofran PRN DVT ppx: lovenox 40 FEN/GI: DM/cardiac diet full code admitted to med/surg with tele for continued tx of reactive airway disease with steroids and azithromycin, home pending respiratory status Asthma persistence: persistent Qualified Code(s): J45.51 - Severe persistent asthma with (acute) exacerbation Admission and Anticipated Discharge Date Admission Date: August 09, 2020 Supervising Attestation Medical Student Supervision Note: I was personally present during medical student patient encounter and independen tly interviewed and examined the patient and verified the duran history and physical, reviewed labs and image studies, discussed the case with Nickolas Taylor and agree with the findings and care plan. Acute respiratory failure secondary to asthma exacerbation and likely with COPD considering 30pak h/o smoking continue IV steroids, added zithromycin should get PFTs once stable follow. Subjective Ms. Lara was able to sleep through the night on CPAP without issue. She tolerated breathing treatments well. She is continuing to have some chest p ain likely secondary to bouts of coughing associated with some heaviness. The redness on her chest has improved. She continues to have shortness of breath and wheezing, which is exacerbated with any exertion such as walking to the bathroom. She has been attempting to walk around the donis with her . Review of Systems Constitutional: + fatigue Respiratory: + dyspnea and + dyspnea on exertion Cardiovascular: no chest pain, no palpitations and no edema Gastrointestinal: no abdominal pain, no nausea, no vomiting, no change in bowel habits, no change in stools and no constipation Genitourinary: no dysuria and no urinary frequency Musculoskeletal: R leg pain Physical Exam Physical Exam: slight TTP across chest Constitutional: + obese; no acute distress Respiratory: + labored breathing, + audible wheezes and symmetric chest movement; + not able to speak in complete sentence Auscultation: + wheezes and + bronchial breath sounds Cardiovascular: Rate/Rhythm: regular rhythm and + tachycardic Heart Sounds: normal S1 and normal S2; no gallop, no murmur and no cardiac rub Vessels: normal peripheral pulses Extremities: + edema (1+ edema R lower ext) Gastrointestinal (Abdomen): normal bowel sounds, soft, nontender, no hepatosplenomegaly Musculoskeletal: TTP posterior distal right leg Results & Data ([facility]) Vital Signs (Past 12 Hours) Vital Signs Temp Pulse Pulse Resp BP Pulse Ox 08/10/20 07:57 36.9 C 97 H 18 125/78 91 08/10/20 07:11 104 H 22 97 08/10/20 06:58 84 08/10/20 03:42 81 08/10/20 03:34 36.7 C 88 18 151/92 H 95 08/10/20 03:06 74 17 96 08/10/20 03:05 74 17 96 08/09/20 23:07 36.7 C 94 H 18 105/62 94 08/09/20 22:18 79 89 22 97
[2020-08-10] MEDS: DOCUSATE SODIUM 100 MG CAP PO SCH ×2 (08:40→21:54)
[2020-08-10] MEDS ORDERED: AZITHROMYCIN 500 MG in DEXTROSE 5% 250 ML IV ONE (10:30)
[2020-08-10] MEDS: ENOXAPARIN INJ 40 MG/0.4 ML SYR SQ SCH ×2 (10:38→21:50)
[2020-08-10] MEDS: HYDROCODONE/ACETAMOPHEN 5/325MG TAB PO PRN ×2 (13:03→21:53)
--- NOTE | 2020-08-10 14:31 | Pharmacy Report ---
Pharmacy Glycemic Short Note 2 - Date of Service August 10, 2020 - Glycemic Short BSG Results (Last 24 hours): 08/09/20 08/09/20 08/10/20 16:30 20:10 07:42 POC Glucose 201 H 286 H 169 H 08/10/20 08/10/20 08/10/20 11:44 11:47 12:04 POC Glucose 61 L* 62 L* 130 H OUTPATIENT ANTIDIABETIC REGIMEN: * Metformin 500mg TIDm * NPH 10-20 units AC * A1c = 7.7 % 02/08/19, updated A1c ordered * A1c 8.3% 08/08/20 Risk Factors for Insulin Resistance: * Steroids: Solu-medrol 40mg IV TID * Diet: Clears, Type 2 DM ASSESSMENT: 08/10/20 * Patient received 158 units of insulin yesterday, 80 of basal, 78 of prandial/correctional * Patient continues on Solu-medrol 40 mg TID- pts BSGs remained elevated yesterday after tightening CF/CR, therefore tightened CR to 2.5 this AM, patient did have hypoglycemic event prior to lunch (62 mg/dL), therefore loosened again, expect increased basal contributing as well 08/09/20 * Patient received 141 units of insulin yesterday, 60 units basal * Blood sugars still above goal d/t IV steroids, increase NPH and tighten CF/CR * A1c pending 08/08/20 * 54 year old female admitted with SOB, cough, chest pain, asthma exacerbation, possibly d/t natural gas leak last evening. * Type 2 diabetic, steroid induced hyperglycemia, required 10 units IV regular insulin, and one does of Lantus last night, will tighten Novolog parameters and use NPH for basal as patient is on NPH at home and IV Steroids. * Check blood sugars overnight tonight. PLAN FOR INPATIENT GLYCEMIC CONTROL: * Holding outpatient oral diabetes medications * Basal insulin - increase * NPH 40 units SQ BID with meals * Bolus insulin * NovoLog per scale ACHS or Q6hrs while NPO * Goal Range: Low 110 mg/dL - High 140 mg/dL * Correction Factor: 12 mg/dL/unit * tighten: Nutritional / Prandial insulin per carb ratio of 1 unit per 4 grams CHO consumed PLAN FOR DISCHARGE: * TBD
[2020-08-10] MEDS ORDERED: methylPREDNISolone 40 MG in SYRINGE 0 ML IV SCH (21:00)
[2020-08-10] MEDS: ATORVASTATIN 40 MG TAB PO SCH (21:48)
[2020-08-10] MEDS: MONTELUKAST SODIUM 10 MG TABLET PO SCH (21:49)
[2020-08-11] MEDS ORDERED: INSULIN ASPART 100 UNITS/ML 3 ML PEN SC SCH
[2020-08-11] MEDS: ALBUT/IPRATROP 3MG/0.5MG NEB 3 ML VIAL NEB SCH ×6 (03:18→23:02)
[2020-08-11] MEDS: LIDOCAINE 5% 1 PATCH TD SCH (08:20)
[2020-08-11] MEDS: FLUTICASONE/VILANTEROL 200/25MCG 14 PUFFS/INHALER INH SCH (08:20)
[2020-08-11] MEDS: methylPREDNISolone 40 MG in SYRINGE 0 ML IV SCH ×3 (08:20→21:36)
[2020-08-11] MEDS: lisinopril 20 MG TAB PO SCH (08:20)
[2020-08-11] MEDS: CLOPIDOGREL BISULFATE 75 MG TAB PO SCH (08:20)
[2020-08-11] MEDS: ASPIRIN 81 MG ECTAB PO SCH (08:20)
[2020-08-11] MEDS: ENOXAPARIN INJ 40 MG/0.4 ML SYR SQ SCH ×2 (08:20→21:00)
[2020-08-11] MEDS: VERAPAMIL HCL 40 MG TAB PO SCH ×3 (08:20→21:34)
[2020-08-11] MEDS: PANTOprazole 40 MG TAB PO SCH (08:20)
[2020-08-11] MEDS: ISOSORBIDE MONO EXTENDED REL 60 MG TABCR PO SCH (08:20)
[2020-08-11] MEDS: INSULIN HUMAN NPH SC SCH ×2 (08:21→17:20)
[2020-08-11] MEDS: INSULIN ASPART 100 UNITS/ML 3 ML PEN SC SCH ×4 (08:21→21:35)
[2020-08-11] MEDS: DOCUSATE SODIUM 100 MG CAP PO SCH ×2 (08:26→21:38)
--- NOTE | 2020-08-11 08:31 | Medical Student Progress Note ---
Date of Service August 11, 2020 Assessment & Plan (1) Severe asthma with acute exacerbation: Ms. Lara is a 54 y/o F with a hx of asthma and possible COPD (no recent PFT), SMITA on CPAP, HTN, HLD, DM2 (A1c 8.3), GERD, CAD (s/p 2x LCX stents in 2011), former smoker (20 pk yrs) who is admitted for hypoxemic respiratory failure following cold symptoms and exposure to natural gas leak. She has much improved, but still not near her baseline status. hypoxemic respiratory failure pt with hx of asthma, possible COPD exacerbation pt at baseline has some KLINE 2/2 preceding cold symptoms and natural gas exposure continue breo-ellipta continue methylpred 40mg IV TID continue duoneb q4h continue incentive spirometry continue home singulair 10mg HS continue o2 supp PRN sat >90% continue CPAP when sleeping given former smoking hx (20pk yrs), concern for COPD exacerbation as well given azithromycin 500mg IV first day, today is day 1 of 4 of 250mg for COPD exacerbation azithromycin will be switched PO advise possible increase in dulera to 10/400 on discharge will need to f/u with pulmonology on discharge for PFT chest pain likely costochondritis 2/2 coughing continue voltaren PRN R leg pain - resolved concern for DVT given sedentary condition during this admission Duplex: no evidence of right lower extremity DVT CAD s/p 2x LCX stents in 2011 2019: echocardiogram normal, no evidence of myocardial ischemia on dobutamine stress echo Cardiac Catheterization in 2015: NORMAL CORONARY ARTERIES continue home statin, aspirin, imdur HTN continue home lisinopril, verapamil DM2 hold home glargine and tresiba continue ISS while admitted 08/10 A1c: 8.3 advise discussing better glucose control with PCP atrial tachycardia managed with home verapamil GERD continue home pantoprazole zofran PRN DVT ppx: lovenox 40 FEN/GI: DM/cardiac diet full code admitted to med/surg with tele for continued tx of reactive airway disease with steroids and azithromycin, home pending respiratory status improvement to baseline and steroid taper Asthma persistence: persistent Qualified Code(s): J45.51 - Severe persistent asthma with (acute) exacerbation Admission and Anticipated Discharge Date Admission Date: August 09, 2020 Supervising Attestation Medical Student Supervision Note: I was personally present during medical student patient encounter and independently interviewed and examined the patient and verified the duran history and physical, reviewed labs and image studies, discussed the case with Nickolas Taylor and agree with the findings and care plan. Acute respiratory failure Asthma/?COPD exacerbation Deconditioning Increased BMI continue IV steroid- wean dose. continue azithromycin. assess need for O2 on discharge. assess need for sleep study/nocturnal hypoxia if daytime oxygen needs resolved consider echo. Subjective Ms. Lara was able to sleep through the night on CPAP without issue. She had 3 breathing treatments overnight. She is continuing to have some chest pain likely secondary to bouts of coughing relieved with voltaren. She continues to have shortness of breath and wheezing, which is exacerbated with any exertion such as walking to the bathroom. She has been attempting to walk around the donis with her . This morning, she was having significant shortness of breath after having walked to and from the bathroom. She was initially not able to speak in complete sentences but shortness of breath improved after 5-10minutes of rest. She told us today that she normally has some dyspnea on exertion, but she does not feel that she is back yet to that baseline. Overall showing improvement at rest. Review of Systems Constitutional: + fatigue Respiratory: + dyspnea and + dyspnea on exertion Musculoskeletal: minimal chest pain, no palpitations and some leg swelling at baseline no abdominal pain, no nausea, no vomiting, no change in bowel habits, no change in stools and no constipation no dysuria and no urinary frequency R leg pain Physical Exam Physical Exam: slight TTP across chest Constitutional: + obese; no acute distress Respiratory: + labored breathing, + audible wheezes and symmetric chest movement Auscultation: + wheezes and + bronchial breath sounds Cardiovascular: RRR, no murmur, no edema Rate/Rhythm: regular rhythm and + tachycardic Heart Sounds: normal S1 and normal S2; no gallop, no murmur and no cardiac rub Vessels: normal peripheral pulses Extremities: + edema (1+ edema R lower ext) Gastrointestinal (Abdomen): normal bowel sounds, soft, nontender, no hepatosplenomegaly Musculoskeletal: TTP posterior distal right leg Results & Data ([facility]) Vital Signs (Past 12 Hours) Vital Signs Temp Pulse Pulse Resp BP Pulse Ox 08/11/20 07:45 85 08/11/20 07:39 36.5 C 66 18 163/71 H 95 08/11/20 07:31 100 H 22 95 08/11/20 04:00 36.4 C L 88 18 135/80 93 08/11/20 03:20 88 88 20 96 08/10/20 23:54 36.7 C 89 18 134/78 94 08/10/20 23:43 105 H 24 98 08/10/20 23:42 105 H 24 95 08/10/20 23:36 87
[2020-08-11 08:38] LABS: Basophils # (auto) 0.01 K/uL (0-0.2); Basophils % (auto) 0.1 %; Hematocrit (blood only) 37.9 % (37-47); Hemoglobin 11.9 g/dL (12.0-16.0); Immature Granulocytes # (auto) 0.15 K/uL (0.00-0.02); Lymphocytes # (auto) 2.73 K/uL (1.2-3.4); Lymphocytes % (auto) 17.8 %; Mean Corpuscular Hemoglobin 29.9 pg (25-34); Mean Corpuscular Hgb Conc 31.4 g/dL (32-36); Mean Corpuscular Volume 95.2 fL (80-100); Mean Platelet Volume 11.6 fL (7.4-10.4); Monocytes % (auto) 5.9 %; Neutrophils # (auto) 11.56 K/uL (1.4-6.5); Neutrophils % (auto) 75.2 %; Platelet Count 271 K/uL (130-400); RDW Coefficient of Variation 14.6 % (11.5-14.5); RDW Standard Deviation 51.3 fL (36.4-46.3); Red Blood Count 3.98 M/uL (4.2-5.4); White Blood Count 15.35 K/uL (4.8-10.8)
[2020-08-11] MEDS ORDERED: AZITHROMYCIN 250 MG in DEXTROSE 5% 250 ML IV SCH (09:00)
[2020-08-11 09:05] LABS: BUN Creatinine Ratio 23.8 (10-20); Calcium 8.9 mg/dl (8.5-10.1); Creatinine Clr Calc Pharmacy 87.9 ml/min; Est GFR (African American) 78.2; Est GFR (Non-African American) 67.4; Potassium 3.9 mmol/L (3.5-5.1)
--- NOTE | 2020-08-11 10:43 | Pharmacy Report ---
Pharmacy Glycemic Short Note 2 - Date of Service August 11, 2020 - Glycemic Short BSG Results (Last 24 hours): 08/10/20 08/10/20 08/10/20 11:44 11:47 12:04 Glucose POC Glucose 61 L* 62 L* 130 H 08/10/20 08/10/20 08/10/20 16:28 20:18 20:19 Glucose POC Glucose 127 H 345 H* 348 H* 08/11/20 08/11/20 08/11/20 00:45 07:45 07:54 Glucose 151 H POC Glucose 263 H 151 H OUTPATIENT ANTIDIABETIC REGIMEN: * Metformin 500mg TIDm * NPH 10-20 units AC * A1c = 7.7 % 02/08/19, updated A1c ordered * A1c 8.3% 08/08/20 Risk Factors for Insulin Resistance: * Steroids: Solu-medrol 40mg IV TID * Diet: Clears, Type 2 DM ASSESSMENT: 08/11/20: * Pt has been receiving 140-160 units of insulin per day with near adequate control * Glycemic control is complicated by steroids and snacking. Pt with severe hyperglycemia last evening at bedtime because she ate applebees for dinner without CHO coverage. No changes made or orders since high was d/t lack of coverage. Added an additional overnight NovoLog check/coverage for hyperglycemia. * CR adjusted yesterday after pt had LOW BSG at lunch (too much CHO coverage {CR too tight} given at breakfast) * No changes needed today. 08/10/20 * Patient received 158 units of insulin yesterday, 80 of basal, 78 of prandial/correctional * Patient continues on Solu-medrol 40 mg TID- pts BSGs remained elevated yesterday after tightening CF/CR, therefore tightened CR to 2.5 this AM, patient did have hypoglycemic event prior to lunch (62 mg/dL), therefore loosened again, expect increased basal contributing as well 08/09/20 * Patient received 141 units of insulin yesterday, 60 units basal * Blood sugars still above goal d/t IV steroids, increase NPH and tighten CF/CR * A1c pending 08/08/20 * 54 year old female admitted with SOB, cough, chest pain, asthma exacerbation, possibly d/t natural gas leak last evening. * Type 2 diabetic, steroid induced hyperglycemia, required 10 units IV regular insulin, and one does of Lantus last night, will tighten Novolog parameters and use NPH for basal as patient is on NPH at home and IV Steroids. * Check blood sugars overnight tonight. PLAN FOR INPATIENT GLYCEMIC CONTROL: * Holding outpatient oral diabetes medications * Basal insulin * NPH 40 units SQ BID with meals * Bolus insulin * NovoLog per scale ACHS or Q6hrs while NPO * Goal Range: Low 110 mg/dL - High 140 mg/dL * Correction Factor: 12 mg/dL/unit * Nutritional / Prandial insulin per carb ratio of 1 unit per 4 grams CHO consumed * Adjust insulin regimen for each step down in steroid dosing. PLAN FOR DISCHARGE: * TBD
--- NOTE | 2020-08-11 10:48 | Ultrasound Report ---
US venous doppler LE RT CLINICAL HISTORY: calf pain COMPARISON STUDY: 04/29/2020 FINDINGS: Real-time and color flow Doppler imaging were performed. Flow was seen within the femoral, popliteal and calf veins with no intraluminal thrombus demonstrated. The saphenous vein is patent. IMPRESSION: No evidence of right lower extremity DVT ACT 112: Negative or not required by law. Electronically signed by: Gómez Verma M.D. 08/11/2020 10:46 AM
[2020-08-11] MEDS: HYDROCODONE/ACETAMOPHEN 5/325MG TAB PO PRN ×2 (16:51→21:38)
[2020-08-11] MEDS: ATORVASTATIN 40 MG TAB PO SCH (21:35)
[2020-08-11] MEDS: MONTELUKAST SODIUM 10 MG TABLET PO SCH (21:36)
[2020-08-12] MEDS: ALBUT/IPRATROP 3MG/0.5MG NEB 3 ML VIAL NEB SCH ×4 (03:40→15:08)
[2020-08-12 06:16] LABS: Basophils # (auto) 0.01 K/uL (0-0.2); Basophils % (auto) 0.1 %; Hematocrit (blood only) 38.8 % (37-47); Hemoglobin 12.4 g/dL (12.0-16.0); Immature Granulocytes # (auto) 0.15 K/uL (0.00-0.02); Immature Granulocytes % (auto) 0.8 %; Lymphocytes # (auto) 3.14 K/uL (1.2-3.4); Lymphocytes % (auto) 17.3 %; Mean Corpuscular Hemoglobin 30.3 pg (25-34); Mean Corpuscular Volume 94.9 fL (80-100); Mean Platelet Volume 11.4 fL (7.4-10.4); Monocytes # (auto) 0.91 K/uL (0.11-0.59); Neutrophils # (auto) 13.98 K/uL (1.4-6.5); Neutrophils % (auto) 76.8 %; Platelet Count 265 K/uL (130-400); RDW Coefficient of Variation 14.4 % (11.5-14.5); Red Blood Count 4.09 M/uL (4.2-5.4); White Blood Count 18.19 K/uL (4.8-10.8)
[2020-08-12] MEDS ORDERED: AZITHROMYCIN 250 MG TAB PO SCH (09:00)
[2020-08-12] MEDS: methylPREDNISolone 40 MG in SYRINGE 0 ML IV SCH ×2 (09:03→15:07)
[2020-08-12] MEDS: HYDROCODONE/ACETAMOPHEN 5/325MG TAB PO PRN ×2 (09:03→15:10)
[2020-08-12] MEDS: ASPIRIN 81 MG ECTAB PO SCH (09:04)
[2020-08-12] MEDS: FLUTICASONE/VILANTEROL 200/25MCG 14 PUFFS/INHALER INH SCH (09:04)
[2020-08-12] MEDS: ISOSORBIDE MONO EXTENDED REL 60 MG TABCR PO SCH (09:04)
[2020-08-12] MEDS: lisinopril 20 MG TAB PO SCH (09:04)
[2020-08-12] MEDS: CLOPIDOGREL BISULFATE 75 MG TAB PO SCH (09:04)
[2020-08-12] MEDS: PANTOprazole 40 MG TAB PO SCH (09:04)
[2020-08-12] MEDS: VERAPAMIL HCL 40 MG TAB PO SCH ×2 (09:04→15:08)
[2020-08-12] MEDS: LIDOCAINE 5% 1 PATCH TD SCH (09:05)
[2020-08-12] MEDS: ENOXAPARIN INJ 40 MG/0.4 ML SYR SQ SCH (09:05)
[2020-08-12] MEDS: INSULIN ASPART 100 UNITS/ML 3 ML PEN SC SCH ×2 (09:06→12:28)
[2020-08-12] MEDS: INSULIN HUMAN NPH SC SCH (09:07)
[2020-08-12] MEDS: DOCUSATE SODIUM 100 MG CAP PO SCH (09:09)
--- NOTE | 2020-08-12 10:12 | Hospitalist Progress Note ---
Date of Service August 12, 2020 Assessment & Plan Admission and Anticipated Discharge Date Admission Date: August 09, 2020 Subjective Patient without acute events overnight. On first interview patient was seen sleeping comfortably without increased respiratory effort. Results & Data Results & Data ([facility]) Vital Signs (Past 12 Hours) Vital Signs Temp Pulse Pulse Resp BP BP Pulse Ox 08/12/20 09:00 85 08/12/20 08:01 36.8 C 73 20 127/70 96 08/12/20 07:32 81 19 98 08/12/20 04:00 36.4 C L 82 18 131/79 97 08/12/20 03:41 79 14 99 08/12/20 03:40 79 14 99 08/12/20 00:30 88 08/12/20 00:00 36.5 C 80 18 126/70 93 08/11/20 23:06 83 83 18 98
--- NOTE | 2020-08-12 15:44 | Discharge Summary ---
Date of Service August 12, 2020 Admission HPI Per Admitting Provider Deb Lara is a 54-year-old female who presents to the ER with shortness of breath, cough, chest pain. Difficulty taking complete history from the patient due to respiratory distress and currently using BiPAP. She reports her symptoms been getting progressively worse over the last week. She has been taking all her routine medications and using her duo nebs frequently. She has been given asthma rescue packs in the past but currently does not have one and has taken no prednisone since her last hospitalization for asthma exacerbation. She reports having cold-like symptoms 1 week ago with nasal congestion. No known COVID-19 contacts, loss of taste or smell, fevers, chills. COVID-19 testing in the ER was negative. She reports associated symptom of headache for the past 3 days, this is correlated with her smelling natural gas outside her house. Just in the last few hours a natural gas leak has been confirmed in the [facility] where she lives. Regarding her chest pain. Started suddenly today around 1:00pm. Constant aching, tightness in lower chest. No worse on inspiration, palpation, position, exertion. She notes a past medical history of coronary artery disease requiring 2 stents in 2010 of a positive stress test. She denies any history of myocardial infarction. In the ER she was given an hour-long nebulizer, 125 mg IV methylprednisolone and Mg sulphate with mild improvement in her shortness of breath. Admission Exam Per Admitting Provider Constitutional: well developed, + acute distress (Respiratory) and + morbidly obese; + not well nourished Eyes: + anicteric sclerae; normal pupil size Neck: normal visual inspection and trachea midline; no tracheal deviation Respiratory: + respiratory distress, + labored breathing, + retractions, + uses accessory muscles and + cough (Frequent dry); + not able to speak in complete sentence Auscultation: + diminished lung sounds (Throughout) and + crackles (Coarse breath sounds throughout); no rales, no rhonchi and no wheezes Cardiovascular: Rate/Rhythm: regular rhythm and + tachycardic Heart Sounds: no murmur Vessels: no JVD Extremities: normal capillary refill; no calf tenderness and no pedal edema Gastrointestinal (Abdomen): normal bowel sounds, soft, nontender, no hepatosplenomegaly Musculoskeletal: no cyanosis or clubbing, extremities motor strength 5/5 Skin: no rashes, warm and dry Neurologic: moves all extremities and awake; no focal motor deficits and not confused Psychiatric: Orientation: alert and oriented x 3 Affect: + anxious affect Genitourinary: no CVA tenderness Lymphatic: no cervical or axillary lymphadenopathy Principal Diagnosis COPD exacerbation in patient with asthma Discharge Exam Constitutional well developed and + obese; no acute distress and not ill appearing Neck normal visual inspection Respiratory normal respiratory effort, lungs with mild expiratory wheeze but not rhonchorous , saturating well on room air Cardiovascular RRR, no murmur, no edema Gastrointestinal (Abdomen) normal bowel sounds, soft, nontender, no hepatosplenomegaly Skin no rashes, warm and dry Discharge Data Allergies Allergy/AdvReac Type Severity Reaction Status Date / Time No Known Allergies Allergy Verified 08/07/20 17:38 Consultations 08/07/20 16:28 ED Decision to Admit Stat Ordered Studies 08/11/20 10:30 US venous doppler LE RT Routine Hospital Course (1) Severe asthma with acute exacerbation: Ms. Lara is a 54 y/o F with a hx of asthma and possible COPD (no recent PFT), SMITA on CPAP, HTN, HLD, DM2 (A1c 8.3), GERD, CAD (s/p 2x LCX stents in 2011), former smoker (20 pk yrs) who is admitted for hypoxemic respiratory failure following cold symptoms and exposure to natural gas leak. She has much improved, but still not near her baseline status. Acute Hypoxemic respiratory failure 2/2 asthma/COPD exacerbation: - Patient with history of asthma, and long-standing smoking history with COPD. - Has a baseline of dyspnea with activities such as climbing stairs. - On admission with concern for COPD exacerbation, started on IV methylpred and azithromycin. - With continued improvement during admission despite decreasing doses of s teroids. - Will send patient with prednisone taper, starting with 60 milligrams and decreasing by 10 milligrams every 2 days until complete. - Azithromycin to complete total of 5 day course. - Before discharge patient passed 2 Step and does not require home oxygen. - Continue home albuterol inhaler/nebs as needed for SOB. - Increased patient's Dulera to 10/200 given what appears to be fairly sig nificant obstructive airway disease. - Continue montelukast. - Have scheduled patient with follow up with Pulmonology for PFTs and further discussion of inhaler options. May benefit from Spiriva. - Have advised patient to continue CPAP with sleep; given body habitus may benefit from BiPAP if element of obesity hypoventilation. Costochondritis: - Developed while admitted due to coughing spells. - May use Tylenol and Voltaren gel in outpatient setting PRN pain. R Leg Pain: - Has since resolved. - RLE Doppler negative for DVT. CAD: - s/p 2x LCX stents in 2011 - 2018: echocardiogram normal, no evidence of myocardial ischemia on dobutamine stress echo - Most recent Echo in October 2019 showed EF 50-55% without regional wall motion abnormalities or significant valvular pathology. - Continue home statin, aspirin, Imdur. HTN: - Continue home lisinopril, verapamil. DM2: - A1c 8.3% on admission. - Resume home insulin, metformin. - Will need follow up by PCP regarding dietary changes and possible medication changes. Atrial tachycardia: - Managed with home verapamil. GERD: - Continue home pantoprazole (2) CAD (coronary artery disease): (3) Obstructive sleep apnea on CPAP: (4) GERD (gastroesophageal reflux disease): (5) Diabetes mellitus, type 2: (6) Atrial tachycardia: (7) Hyperlipidemia: (8) Hypertension: (9) COPD exacerbation: Total Time Total Time Spent Total Time Spent (In Minutes): see attending attestation Discharge Plan Discharge Items Patient Disposition: Home - Self-Care Reason For Visit: ASTHMA EXACERBATION,CHEST PAIN,NATURAL GAS Discharge Diagnosis: COPD/asthma exacerbation Activity: Per Instructions section Non-emergency contact: Primary Care Provider and Senior Quality Engineer Call non-emergency contact if: you have any medication questions, your symptoms worsen and your temperature is above 101 Follow-up/Referrals: Nita Torres MD [Primary Care Provider] - 08/17/20 10:00 am Adrián Meza MD [Physician] - 08/31/20 10:30 am (DR HERMOSILLO WILL SEE YOU.Follow up following discharge) Diet: Carb Consistent or DM2 and Heart Healthy Addtl Attending Provider Instructions: You were admitted to the hospital for trouble breathing after exposure to gas leak in [place]. You were started on treatment for COPD and asthma exacerbation. This included antibiotics and steroids. With several days of treatment you kept improving, and you were felt to be safe for discharge home with the following recommendations: 1) You will take azithromycin, an anti-inflammatory and antibiotic, one pill daily starting tomorrow. 2) Your steroid medication, called prednisone, will be on a tapered dose. These means that your dose will change every couple of days. See below for the dosing. You will start this medication tomorrow. 08/13 and 08/14: six 10 milligram pills once daily. 08/15 and 08/16: five 10 milligram pills once daily. 08/15 and 08/16: four 10 milligram pills once daily. 08/17 and 08/18: three 10 milligram pills once daily. 08/19 and 08/20: two 10 milligram pills once daily. 08/21 and 08/22: one 10 milligram pills once daily. 08/23 and 08/24: one 10 milligram pills once daily. 3) You can use your albuterol nebulizer and inhalers at home as needed for shortness of breath. You should continue taking your montelukast medication. 4) We increased the dose of your Dulera inhaler medication. You will take 2 puffs twice daily, every day, regardless of how you feel. These medications were sent to the [facility] on [facility]. 5) You should follow up with your primary care doctor within 7 days of discharge. We have provided above the contact information for Pulmonology services; you should have follow up with them to have pulmonary function testing and to discuss medication cahnges to help your respiratory status. Pending Studies at Discharge: No Stand-Alone Forms: My [facility], Smoking Cessation Medications and DC Order Prescriptions: New azithromycin 250 mg Tablet 250 mg PO QAM Qty: 2 RF: 0 Dulera 200-5 mcg/actuation HFA aerosol inhaler 2 inh inhalation BID Qty: 13 RF: 0 prednisone 10 mg tablet See Rx Instructions .ROUTE .COMPLEX Qty: 42 RF: 0 Continued aspirin [Aspirin Low Dose] 81 mg tablet,delayed release (DR/EC) 81 mg PO QAM Qty: 0 RF: 0 Proctofoam HC 1-1 % foam 1 appln IN QID PRN (Reason: Hemorrhoids) Qty: 10 RF: 5 albuterol sulfate 90 mcg/actuation HFA aerosol inhaler 2 puffs INH Q6H PRN (Reason: shortness of breath or wheezing) Qty: 8 RF: 0 diclofenac sodium [Voltaren] 1 % gel 2 g TOPICAL QID PRN (Reason: Pain) Qty: 100 RF: 5 albuterol sulfate 0.63 mg/3 mL solution for nebulization 0.63 mg INH Q6H PRN (Reason: shortness of breath or wheezing) Qty: 75 RF: 1 nitroglycerin [Nitrostat] 0.4 mg tablet, sublingual 0.4 mg Sublingual Q5M PRN (Reason: Chest Pain) Qty: 100 RF: 0 verapamil 80 mg tablet 80 mg PO TID Qty: 90 RF: 5 clopidogrel [Plavix] 75 mg tablet 75 mg PO QAM Qty: 90 RF: 3 lisinopril 20 mg tablet 20 mg PO QAM Qty: 90 RF: 3 pantoprazole 40 mg tablet,delayed release (DR/EC) 40 mg PO QAM Qty: 90 RF: 3 montelukast 10 mg tablet 10 mg PO HS Qty: 90 RF: 3 metformin 500 mg tablet 500 mg PO TIDM Qty: 270 RF: 3 Novolin N NPH U-100 Insulin 100 unit/mL suspension 10 - 30 unit SUBCUT AC Qty: 30 RF: 3 atorvastatin 80 mg tablet 80 mg PO HS Qty: 90 RF: 3 isosorbide mononitrate 60 mg tablet extended release 24 hr 60 mg PO QAM Qty: 90 RF: 3 docusate sodium [Colace] 100 mg Capsule 100 mg PO BID RF: 0 acetaminophen [Tylenol Extra Strength] 500 mg Tablet 1,000 mg PO Q6H PRN (Reason: Pain) RF: 0 hydrocodone-acetaminophen [[place]] 5-325 mg tablet 1 tab PO Q6H PRN (Reason: pain) Qty: 10 RF: 0 prochlorperazine maleate 10 mg Tablet 10 mg PO Q6H PRN (Reason: Nausea) RF: 0 lidocaine [Lidoderm] 5 % adhesive patch,medicated 1 patch topical DAILY PRN (Reason: Pain) RF: 0 meclizine 25 mg Tablet 25 mg PO Q6 PRN (Reason: dizziness) Qty: 20 RF: 0 Discontinued Dulera 200-5 mcg/actuation Hfa Aerosol Inhaler 2 puff INHALATION BID RF: 0 Discharge Orders: Discharge Order (Routine); Ordered 08/12/20 Ordered By: Cheyenne Stallworth/Other Patient Handouts: Managing Type 2 Diabetes, Managing Diabetes: The A1C Test Admission Data Admit Date/Time: 08/09/20 16:55 Attending Provider: Kristen Castillo Admit Provider: Booker Rodriguez Primary Care Provider: Nita Torres Other Providers: Booker Rodriguez ; Jelena Chang ; Shaji Cedillo Other Interventions: Discharge Summary Assessment (RN) Last Done: 08/12/20 14:36 Supervising Physician Co-Signing Physician Notes Resident Physician Supervision Note: I independently interviewed and examined the patient and verified the duran history and physical, reviewed labs and image studies, discussed the case with the resident Dr. Arango and agree with the findings and care plan. Resident Activity Tracking Resident Involvement: Resident Care Provided Care Provided: Adult Hospital Medicine
== END 2020-08-12 17:16 | disposition home or self-care (01) ==
LOC: 2W 12:30 → ED 12:30 → SUATTDRO 17:46 → 2W 19:47 → 2N 08-08 03:27 → SUATTDRO 08-09 16:55

== ENCOUNTER 2020-08-17 10:55 | Observation (INO) ==
[2020-08-17 11:28] LABS: Hemoglobin 13.5 g/dL (12.0-16.0); Mean Corpuscular Hemoglobin 30.6 pg (25-34); Mean Corpuscular Hgb Conc 32.1 g/dL (32-36); Mean Corpuscular Volume 95.2 fL (80-100); Mean Platelet Volume 11.3 fL (7.4-10.4); Platelet Count 253 K/uL (130-400); RDW Coefficient of Variation 14.9 % (11.5-14.5); RDW Standard Deviation 51.4 fL (36.4-46.3); Red Blood Count 4.41 M/uL (4.2-5.4); White Blood Count 17.64 K/uL (4.8-10.8)
[2020-08-17 11:39] LABS: Partial Thromboplastin Ratio 0.7; Partial Thromboplastin Time < 20.0 Seconds (21.0-31.0); Prothrombin Time 10.3 Seconds (9.0-12.0)
[2020-08-17 11:41] LABS: Alanine Aminotransferase 39 U/L (12-78); Aspartate Aminotransferase 15 U/L (15-37); BUN Creatinine Ratio 20.4 (10-20); Blood Urea Nitrogen 16 mg/dl (7-18); Calcium 8.7 mg/dl (8.5-10.1); Carbon Dioxide 27 mmol/L (21-32); Chloride 109 mmol/L (98-107); Creatinine Clr Calc Pharmacy 101.4 ml/min; Est GFR (African American) 96.2; Glucose 121 mg/dl (70-99); Potassium 4.1 mmol/L (3.5-5.1); Sodium 142 mmol/L (136-145)
[2020-08-17 11:43] LABS: Basophils # (auto) 0.01 K/uL (0-0.2); Basophils % (auto) 0.1 %; Eosinophils % (auto) 0.6 %; Immature Granulocytes # (auto) 0.09 K/uL (0.00-0.02); Immature Granulocytes % (auto) 0.5 %; Lymphocytes # (auto) 6.78 K/uL (1.2-3.4); Lymphocytes % (auto) 38.4 %; Monocytes # (auto) 0.85 K/uL (0.11-0.59); Monocytes % (auto) 4.8 %; Neutrophils # (auto) 9.81 K/uL (1.4-6.5); Neutrophils % (auto) 55.6 %
[2020-08-17 11:46] LABS: Albumin Globulin Ratio 0.8 (0.9-2); Alkaline Phosphatase 111 U/L (45-117); Bilirubin,Total 0.5 mg/dl (0.2-1); Globulin 3.9 gm/dl (2.5-4.0); Total Protein 6.9 gm/dl (6.4-8.2); Troponin I < 0.015 ng/ml (0-0.045)
[2020-08-17] MEDS ORDERED: methylPREDNISolone 125 MG/2 ML VIAL IV STA (11:48)
[2020-08-17] MEDS ORDERED: ALBUTEROL 0.083% NEBU SOLN 3 ML VIAL NEB STA (11:48)
--- NOTE | 2020-08-17 11:55 | Emergency Department Note ---
History of Present Illness General Chief complaint: Chest Pain Time Seen by Provider: 08/17/20 11:40 Source: patient, EMS and RN notes reviewed Mode of arrival: EMS Limitations: no limitations History of Present Illness Maximum Pain Intensity: 7 This patient has a history of severe asthma as well as cardiac disease, is sent over by ambulance from her doctor's office after presenting there for a follow- up visit and having chest pain and shortness of breath. She was hospitalized for similar complaints here from August 07 through the . She was on steroids and antibiotic she has tapered off the steroids. She is seen at [facility] today and was feeling worse this sent her here by ambulance. On route they did give her aspirin and nitroglycerin apparently. She has expiratory wheezes. She was Covid negative within the last week when she has similar symptoms. She had no fever chills or cough. This feels like when her asthma gets bad. It hurts when she breathes. No lower extremity pain or swelling no fall or trauma. No blood or melena in her stool. Home Medications Home Medications Medication Instructions Recorded Confirmed Type docusate sodium [Colace] 100 mg PO BID 12/04/18 08/17/20 History aspirin 81 mg tablet,delayed 81 mg PO QAM #0 tab 07/09/19 08/17/20 History release prochlorperazine maleate 10 mg PO Q6H PRN 09/24/19 08/17/20 History verapamil 80 mg tablet 80 mg PO TID #90 tab 11/04/19 08/17/20 Rx hydrocortisone 1 %-pramoxine 1 % 1 appln OK QID PRN #10 gm 12/03/19 08/17/20 Rx rectal foam acetaminophen [Tylenol Extra 1,000 mg PO Q6H PRN 12/23/19 08/17/20 History Strength] albuterol sulfate 0.63 mg/3 mL 0.63 mg INH Q6H PRN #75 ml 03/24/20 08/17/20 Rx solution for nebulization albuterol sulfate 90 mcg/actuation 2 puffs INH Q6H PRN #8 gm 03/24/20 08/17/20 Rx aerosol inhaler diclofenac sodium 1 % topical gel 2 g TOPICAL QID PRN #100 gm 03/24/20 08/17/20 Rx hydrocodone-acetaminophen [[place]] 1 tab PO Q6H PRN #10 tab 05/22/20 08/17/20 Rx lidocaine [Lidoderm] 1 patch TOPICAL DAILY PRN 06/09/20 08/17/20 History meclizine 25 mg PO Q6 PRN #20 tab 06/12/20 08/17/20 Rx atorvastatin 80 mg tablet 80 mg PO HS #90 tab 06/22/20 08/17/20 Rx clopidogrel 75 mg tablet 75 mg PO QAM #90 tab 06/22/20 08/17/20 Rx insulin NPH isoph U-100 human 100 10 - 30 unit SUBCUT AC #30 ml 06/22/20 08/17/20 Rx unit/mL subcutaneous suspension isosorbide mononitrate 60 mg 60 mg PO QAM #90 tab 06/22/20 08/17/20 Rx tablet,extended release 24 hr lisinopril 20 mg tablet 20 mg PO QAM #90 tab 06/22/20 08/17/20 Rx metformin 500 mg tablet 500 mg PO TIDM #270 tab 06/22/20 08/17/20 Rx montelukast 10 mg tablet 10 mg PO HS #90 tab 06/22/20 08/17/20 Rx pantoprazole 40 mg tablet,delayed 40 mg PO QAM #90 tab 06/22/20 08/17/20 Rx release nitroglycerin 0.4 mg sublingual 0.4 mg SUBLINGUAL Q5M PRN #100 tab 06/26/20 08/17/20 Rx tablet mometasone-formoterol [Dulera] 2 inh INHALATION BID #13 g 08/12/20 08/17/20 Rx prednisone See Rx Instructions .ROUTE 08/12/20 08/17/20 Rx .COMPLEX #42 tab Allergies Allergy/AdvReac Type Severity Reaction Status Date / Time No Known Allergies Allergy Verified 08/17/20 09:37 Past Med/Surg History Medical History Arthritis of knee CAD (coronary artery disease) CHF (congestive heart failure) Chronic low back pain CSF leak Degeneration of cervical intervertebral disc External hemorrhoids Frequent falls Left-sided chest pain Severe asthma with acute exacerbation TIA (transient ischemic attack) Urinary incontinence Vertebral artery stenosis Surgical History Facial fracture (2014) WITH RECONSTRUCTION History of bilateral tubal ligation History of cardiac cath X2 STENTS - (~2010, IN [place], [place]). NO STENTS - ([facility] @ ~2014) History of colonoscopy History of esophagogastroduodenoscopy (EGD) History of heart artery stent X2 STENTS (2010) UNSURE OF KIND. NO STENT CARDS PER PT. History of mandibular surgery S/P left knee arthroscopy S/p tibial fracture open treatment of Fx with plate/screws, Left leg Status post right foot surgery Family History Mother Breast cancer, Onset Age: 64 Type 2 diabetes mellitus Father Diabetes Coronary heart disease Type 2 diabetes mellitus Myocardial infarction, Onset Age: 52 Family/Other Hypertension sibling Denies family history of Ovarian cancer Social History Smoking Status: Former smoker Tobacco Type: Cigarettes Second Hand Exposure: No; Hx Alcohol Use: No Hx Substance Use: No Preferred Language: [place]an Communication Ability: Effective Visual Impairment: No Limitations 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/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 Required: No Beliefs That Will Affect Care: None marital status: Current Living Situation: Spouse Feels Safe at Home: Yes Assistive Devices: BiPap Review of Systems A total of 10 systems reviewed and were otherwise negative Physical Exam Vital Signs Vital Signs - 24 hr 08/17/20 11:06 08/17/20 11:09 08/17/20 11:25 Temperature 36.9 C Temperature Source Oral Pulse Rate 104 H Pulse Rate [Finger] 92 H Pulse Rate from SpO2 Sensor Respiratory Rate 22 Respiratory Effort / Characteristics Labored Labored Respiratory Depth Normal Blood Pressure 116/83 Blood Pressure Mean 94 Pulse Oximetry 99 97 Oxygen Delivery Method Room Air Room Air Sepsis Recent Fever Within 48 Hours No Sepsis New/Unexplained Change in Mental Status No Sepsis Action Taken by Nursing No Action Required 08/17/20 11:48 08/17/20 12:00 08/17/20 12:13 Temperature Temperature Source Pulse Rate 96 H 94 H Pulse Rate [Finger] 82 Pulse Rate from SpO2 Sensor 95 H 94 H Respiratory Rate 18 23 18 Respiratory Effort / Characteristics Non-Labored Spontaneous Respiratory Depth Blood Pressure 123/89 Blood Pressure Mean 104 Pulse Oximetry 100 98 98 Oxygen Delivery Method Nasal Cannula Sepsis Recent Fever Within 48 Hours Sepsis New/Unexplained Change in Mental Status Sepsis Action Taken by Nursing 08/17/20 12:30 08/17/20 12:31 08/17/20 13:00 Temperature Temperature Source Pulse Rate 84 88 87 Pulse Rate [Finger] Pulse Rate from SpO2 Sensor 86 87 88 Respiratory Rate 17 22 15 Respiratory Effort / Characteristics Respiratory Depth Blood Pressure 102/70 116/63 Blood Pressure Mean 77 85 Pulse Oximetry 99 100 99 Oxygen Delivery Method Sepsis Recent Fever Within 48 Hours Sepsis New/Unexplained Change in Mental Status Sepsis Action Taken by Nursing 08/17/20 13:01 08/17/20 13:30 08/17/20 13:32 Temperature Temperature Source Pulse Rate 90 104 H 100 H Pulse Rate [Finger] Pulse Rate from SpO2 Sensor 90 105 H 102 H Respiratory Rate 21 22 22 Respiratory Effort / Characteristics Respiratory Depth Blood Pressure 148/71 H Blood Pressure Mean 95 Pulse Oximetry 100 96 97 Oxygen Delivery Method Sepsis Recent Fever Within 48 Hours Sepsis New/Unexplained Change in Mental Status Sepsis Action Taken by Nursing 08/17/20 14:00 08/17/20 14:01 08/17/20 14:30 Temperature Temperature Source Pulse Rate 98 H 96 H 99 H Pulse Rate [Finger] Pulse Rate from SpO2 Sensor 99 H 96 H 100 H Respiratory Rate 33 H 28 H 24 Respiratory Effort / Characteristics Respiratory Depth Blood Pressure 124/78 136/68 Blood Pressure Mean 96 99 Pulse Oximetry 96 96 97 Oxygen Delivery Method Sepsis Recent Fever Within 48 Hours Sepsis New/Unexplained Change in Mental Status Sepsis Action Taken by Nursing General: Well developed well nourished middle-aged feel who is mildly tachypneic complaint shortness of breath and chest pain in no acute distress, breathing comfortably on room air. Normal speech HEENT: Normal cephalic atraumatic. Pupils are equal round and reactive to light. Extraocular movements are intact. Oropharynx is pink with moist mucous membranes. No swelling of the mouth lips or tongue. Neck: Supple with a midline trachea. No meningeal signs or stiffness, no JVD or bruits. No Stridor. Chest: She does have some coarse breath sounds with scattered wheezes. Mild increased work of breathing. Heart: Regular rate and rhythm without murmurs or gallops. Abdomen: Soft nontender, nondistended without rebound guarding or rigidity. Extremities: No cyanosis clubbing or edema. No calf tenderness or assymetry Spine/Back. Non tender to palpation. No CVA tenderness Skin: Good turgor without rashes. Neurologic exam: Cranial nerves two through 12 are intact. Motor and sensation are intact and symmetrical throughout. Course Administered Medications Discontinued Medications Albuterol (Albuterol 0.083% Nebu Soln 3 Ml Vial) 10 mg NEB NOW STA Stop: 08/17/20 11:49 Last Admin: 08/17/20 12:12 Dose: 10 mg Documented by: [id number] Methylprednisolone (Methylprednisolone 125 Mg/2 Ml Vial) 125 mg IV NOW STA Stop: 08/17/20 11:49 Last Admin: 08/17/20 11:54 Dose: 125 mg Documented by: [id number] Morphine Sulfate (Morphine Sulfate 2 Mg/Ml Carp) 2 mg IV NOW STA Stop: 08/17/20 13:31 Last Admin: 08/17/20 13:44 Dose: 2 mg Documented by: [id number] Critical Care Time Critical Care Time: Yes Total Critical Care Time: 30 Due to the patient's shortness of breath and chest pain and need for multiple meds including 1 hour-long med, frequent reassessment, several IV meds, I have personally spent greater than 30 minutes of critical care time in the direct management of this patient. This includes bedside care, interpretation of diagnostic studies, and testing, discussion with consultants, patient, and family members, and other required patient management activities. This 30 minutes is in excess of all separately billable procedures. Medical Decision Making Differential Diagnosis Asthma exacerbation, COPD, CHF, acute coronary syndrome, arrhythmia, infection, pneumothorax, electrolyte or metabolic abnormality Medical Records Attestation: I reviewed the patient's medical records. Home Medications Current Medication List: was personally reviewed by me Laboratory Data Attestation: I reviewed the patient's lab results. Result diagrams: 08/17/20 11:10 08/17/20 11:10 Lab Results 08/17/20 08/17/20 08/17/20 Range/Units 11:10 11:10 11:10 WBC 17.64 H (4.8-10.8) K/uL RBC 4.41 (4.2-5.4) M/uL Hgb 13.5 (12.0-16.0) g/dL Hct 42.0 (37-47) % MCV 95.2 (80-100) fL MCH 30.6 (25-34) pg MCHC 32.1 (32-36) g/dL RDW Std Deviation 51.4 H (36.4-46.3) fL RDW Coeff of Majo 14.9 H (11.5-14.5) % Plt Count 253 (130-400) K/uL MPV 11.3 H (7.4-10.4) fL Immature Gran % (Auto) 0.5 % Neut % (Auto) 55.6 % Lymph % (Auto) 38.4 % [place] % (Auto) 4.8 % Eos % (Auto) 0.6 % Baso % (Auto) 0.1 % Neut # (Auto) 9.81 H (1.4-6.5) K/uL Lymph # (Auto) 6.78 H (1.2-3.4) K/uL [place] # (Auto) 0.85 H (0.11-0.59) K/uL Eos # (Auto) 0.10 (0-0.5) K/uL Baso # (Auto) 0.01 (0-0.2) K/uL Immature Gran # (Auto) 0.09 H (0.00-0.02) K/uL PT 10.3 (9.0-12.0) Seconds INR 1.0 (0.9-1.1) APTT < 20.0 L (21.0-31.0) Seconds PTT Ratio 0.7 Sodium 142 (136-145) mmol/L Potassium 4.1 (3.5-5.1) mmol/L Chloride 109 H (98-107) mmol/L Carbon Dioxide 27 (21-32) mmol/L Anion Gap 6.0 (3-11) BUN 16 (7-18) mg/dl Creatinine 0.80 (0.6-1.2) mg/dl Est Cr Clr Drug Dosing 101.4 ml/min Est GFR ( Amer) 96.2 Est GFR (Non-Af Amer) 83.0 BUN/Creatinine Ratio 20.4 H (10-20) Glucose 121 H (70-99) mg/dl Calcium 8.7 (8.5-10.1) mg/dl Magnesium Total Bilirubin 0.5 (0.2-1) mg/dl AST 15 (15-37) U/L ALT 39 (12-78) U/L Alkaline Phosphatase 111 (45-117) U/L Troponin I < 0.015 (0-0.045) ng/ml NT-Pro-B Natriuret Pep (0-900) pg/ml Total Protein 6.9 (6.4-8.2) gm/dl Albumin 3.0 L (3.4-5.0) gm/dl Globulin 3.9 (2.5-4.0) gm/dl Albumin/Globulin Ratio 0.8 L (0.9-2) Specimen Hemolysis 08/17/20 08/17/20 Range/Units 11:10 11:10 WBC (4.8-10.8) K/uL RBC (4.2-5.4) M/uL Hgb (12.0-16.0) g/dL Hct (37-47) % MCV (80-100) fL MCH (25-34) pg MCHC (32-36) g/dL RDW Std Deviation (36.4-46.3) fL RDW Coeff of Majo (11.5-14.5) % Plt Count (130-400) K/uL MPV (7.4-10.4) fL Immature Gran % (Auto) % Neut % (Auto) % Lymph % (Auto) % [place] % (Auto) % Eos % (Auto) % Baso % (Auto) % Neut # (Auto) (1.4-6.5) K/uL Lymph # (Auto) (1.2-3.4) K/uL [place] # (Auto) (0.11-0.59) K/uL Eos # (Auto) (0-0.5) K/uL Baso # (Auto) (0-0.2) K/uL Immature Gran # (Auto) (0.00-0.02) K/uL PT (9.0-12.0) Seconds INR (0.9-1.1) APTT (21.0-31.0) Seconds PTT Ratio Sodium (136-145) mmol/L Potassium (3.5-5.1) mmol/L Chloride (98-107) mmol/L Carbon Dioxide (21-32) mmol/L Anion Gap (3-11) BUN (7-18) mg/dl Creatinine (0.6-1.2) mg/dl Est Cr Clr Drug Dosing ml/min Est GFR ( Amer) Est GFR (Non-Af Amer) BUN/Creatinine Ratio (10-20) Glucose (70-99) mg/dl Calcium (8.5-10.1) mg/dl Magnesium Cancelled 2.4 Total Bilirubin (0.2-1) mg/dl AST (15-37) U/L ALT (12-78) U/L Alkaline Phosphatase (45-117) U/L Troponin I (0-0.045) ng/ml NT-Pro-B Natriuret Pep 599 (0-900) pg/ml Total Protein (6.4-8.2) gm/dl Albumin (3.4-5.0) gm/dl Globulin (2.5-4.0) gm/dl Albumin/Globulin Ratio (0.9-2) Specimen Hemolysis Imaging Data My Impression: Chest x-ray: No acute infiltrate, failure, pneumothorax seen Radiologist's Impression: XR chest 1V portable CLINICAL HISTORY: Atypical chest pain. COMPARISON STUDY: Chest radiograph August 07, 2020. FINDINGS: Lung volumes are normal. Lungs are clear. There is no pneumothorax or pleural effusion. There is borderline cardiomegaly. Mediastinal contours are normal. There is no evidence for pulmonary edema. IMPRESSION: No acute cardiopulmonary findings. ECG Data Attestation: I personally reviewed and interpreted this ECG as follows: Indication: + chest pain and + SOB/dyspnea Rate (beats per minute): 88 Rhythm: + normal sinus ECG Intervals/blocks: + Normal QRS, + Normal QT and + Normal OK ECG [place]: + Normal ECG ST segments: + Normal ST segments ECG Findings: + LVH; no PACs and no PVCs Comparison ECG Date: from (08/07/20) Change: the following changes noted (Rate has decreased otherwise no acute change) MDM Narrative This patient comes in as described above. She is history of severe asthma as well as cardiac disease/CHF, was recently in the hospital and discharged and was doing well for a few days and then got worse again. She is not severely hypoxemic but does have some wheezing and has had chest pain and discomfort. They gave her nitro without relief in the ambulance. IV access was established blood work was obtained. EKG does not show any acute ischemic changes or ectopy. Her white counts moderately elevated although could be from the steroids. She has no significant electrolyte or metabolic abnormalities. I did order a 1 hour long DuoNeb as well as Solu-Medrol 2 mg IV and she was reassessed frequently. Her shortness of breath did feel better. She did also receive morphine 2 mg IV she does have some chest pain which seems reproducible may be more costochondritis however she does have a cardiac history. Her troponin is negative. Chest x-ray was clear and shows nothing suggest congestive heart failure pneumonia or pneumothorax she has no acute electrolyte or metabolic abnormality. Given her exacerbation of symptoms I do think she needs to be admitted/observed in the hospital. I have consulted the [facility] hospitalist for these measures. Continuous cardiac monitoring: An order was placed in the EMR for continuous cardiac monitoring. She was noted to be in normal sinus rhythm with a heart rate of 85. Impression & Plan Asthma, Chest pain, SOB (shortness of breath), Hx of coronary artery disease Discharge Plan Visit Data Chief Complaint: Chest Pain ED Provider: James Davila Discharge Problem: Asthma, Chest pain, SOB (shortness of breath), Hx of coronary artery disease Forms Stand Alone Forms: My [facility] Prescriptions Prescriptions: No Action aspirin [Aspirin Low Dose] 81 mg tablet,delayed release (DR/EC) 81 mg PO QAM Qty: 0 RF: 0 Proctofoam HC 1-1 % foam 1 appln OK QID PRN (Reason: Hemorrhoids) Qty: 10 RF: 5 albuterol sulfate 90 mcg/actuation HFA aerosol inhaler 2 puffs INH Q6H PRN (Reason: shortness of breath or wheezing) Qty: 8 RF: 0 diclofenac sodium [Voltaren] 1 % gel 2 g TOPICAL QID PRN (Reason: Pain) Qty: 100 RF: 5 albuterol sulfate 0.63 mg/3 mL solution for nebulization 0.63 mg INH Q6H PRN (Reason: shortness of breath or wheezing) Qty: 75 RF: 1 nitroglycerin [Nitrostat] 0.4 mg tablet, sublingual 0.4 mg Sublingual Q5M PRN (Reason: Chest Pain) Qty: 100 RF: 0 verapamil 80 mg tablet 80 mg PO TID Qty: 90 RF: 5 clopidogrel [Plavix] 75 mg tablet 75 mg PO QAM Qty: 90 RF: 3 lisinopril 20 mg tablet 20 mg PO QAM Qty: 90 RF: 3 pantoprazole 40 mg tablet,delayed release (DR/EC) 40 mg PO QAM Qty: 90 RF: 3 montelukast 10 mg tablet 10 mg PO HS Qty: 90 RF: 3 metformin 500 mg tablet 500 mg PO TIDM Qty: 270 RF: 3 Novolin N NPH U-100 Insulin 100 unit/mL suspension 10 - 30 unit SUBCUT AC Qty: 30 RF: 3 atorvastatin 80 mg tablet 80 mg PO HS Qty: 90 RF: 3 isosorbide mononitrate 60 mg tablet extended release 24 hr 60 mg PO QAM Qty: 90 RF: 3 docusate sodium [Colace] 100 mg Capsule 100 mg PO BID RF: 0 acetaminophen [Tylenol Extra Strength] 500 mg Tablet 1,000 mg PO Q6H PRN (Reason: Pain) RF: 0 hydrocodone-acetaminophen [[place]ige[place]] 5-325 mg tablet 1 tab PO Q6H PRN (Reason: pain) Qty: 10 RF: 0 prochlorperazine maleate 10 mg Tablet 10 mg PO Q6H PRN (Reason: Nausea) RF: 0 lidocaine [Lidoderm] 5 % adhesive patch,medicated 1 patch topical DAILY PRN (Reason: Pain) RF: 0 meclizine 25 mg Tablet 25 mg PO Q6 PRN (Reason: dizziness) Qty: 20 RF: 0 Dulera 200-5 mcg/actuation HFA aerosol inhaler 2 inh inhalation BID Qty: 13 RF: 0 prednisone 10 mg tablet See Rx Instructions .ROUTE .COMPLEX Qty: 42 RF: 0 Discharge Problem: Asthma Qualifiers: Asthma severity: moderate Asthma persistence: persistent Asthma complication type: with acute exacerbation Qualified Code(s): J45.41 - Moderate persistent asthma with (acute) exacerbation Chest pain Qualifiers: Chest pain type: precordial pain Qualified Code(s): R07.2 - Precordial pain
[2020-08-17 12:31] LABS: Magnesium 2.4 mg/dl (1.8-2.4)
--- NOTE | 2020-08-17 12:31 | XRay Report ---
XR chest 1V portable CLINICAL HISTORY: Atypical chest pain. COMPARISON STUDY: Chest radiograph August 07, 2020. FINDINGS: Lung volumes are normal. Lungs are clear. There is no pneumothorax or pleural effusion. The re is borderline cardiomegaly. Mediastinal contours are normal. There is no evidence for pulmonary ed fausto. IMPRESSION: No acute cardiopulmonary findings. ACT 112: Negative or not required by law. Electronically signed by: Giuliano Juares M.D. 08/17/2020 12:30 PM
[2020-08-17] MEDS ORDERED: MoRPHine SULFATE 2 MG/ML CARP IV STA (13:30)
--- NOTE | 2020-08-17 16:14 | History & Physical Report ---
Date of Service August 17, 2020 Assessment & Plan (1) Chest pain: 54 yo F PMhx asthma, DM2, HTN, HLD, GERD, CAD, recently discharged from hospital, admitted for worsening shortness of breath. 1) asthma vs COPD - remote smoking hx - no PFTs documented - increased dulera last admission without improvement - may benefit from addition of anticholinergic medication to regimen - Duonebs Q4, incentive spirometry, nasal cannula PRN with goal spO2 88-94 - continue montelukast - CTA to eval pulm disease/PE after COVID negative - continue dulera 2) CAD - EKG sinus tach in ER with LVH, no ST changes - first trop neg, trend trops x3 - echo 10/2019 EF 50-55%, mild MR, mild TR - continue statin, plavix, asa DM2 - continue metformin 500 TID - NPH SS HTN - continue lisinopril 20, isosorbide mononitrate 60, verapamil 80 mg TID DVT ppx: lovenox 40 SQ FEN/GI: Dm2/CAD diet, PO fluids Dispo: med/surg Code Status: Full Code (2) SOB (shortness of breath): (3) CAD (coronary artery disease): (4) Asthma: History of Present Illness 54-year-old female with past medical history of asthma, CAD, COPD, hypertension, hyperlipidemia, depression, DM 2, SMITA on CPAP presenting to the emergency department by ambulance after seeing her PCP for hospital follow-up. Was recently discharged from the hospital last week for an asthma exacerbation brought on by a gas leak in [facility]. Sent home on a steroid taper and increased dose of her daily Dulera. Feeling well at the time of discharge. Today she notes that she had increased work and trouble breathing as well as headache the same night that she got home from discharge. She had to frequently use her albuterol rescue inhaler up to 4 times a day in addition to her Dulera maintenance inhaler. She states that her PCP noted that she is having increased work of breathing at her follow-up appointment today and she was also complaining of central chest pain at the appointment. Chest pain as a pressure that stays in the middle of her chest and does not radiate down her arms or up her neck. Feels like something sitting on her chest. She also states that it is difficult to take a deep breath because it hurts to take a deep breath. Denies any numbness or tingling, nausea, vomiting, diarrhea. She denies any known or suspected Covid contacts since discharge from the hospital. She denies any contacts with people or otherwise generally ill with flulike or cold-like symptoms. En route to hospital from PCP office via ambulance patient received aspirin and nitro. She states that the nitro did not change her chest pain. She received 125 mg IV methyl prednisolone in the ER as well as an hour-long breathing treatment. She states her breathing was a little bit improved after the breathing treatment. Work-up at time of admission included a normal BMP, Leukocytosis at 17k with neutrophilic predominance, CXR negative for acute process, somewhat questionable RLL diffuse infiltrate vs. fuzzy opacity, increased cardiomegaly. She will be admitted to [facility] for observation for likely asthma exacerbation versus chest pain rule out. Primary Care Provider: Nita Torres MD Allergies Allergy/AdvReac Type Severity Reaction Status Date / Time No Known Allergies Allergy Verified 08/17/20 09:37 Home Medications Home Medications Medication Instructions Recorded Confirmed Type docusate sodium [Colace] 100 mg PO BID 12/04/18 08/17/20 History aspirin 81 mg tablet,delayed 81 mg PO QAM #0 tab 07/09/19 08/17/20 History release prochlorperazine maleate 10 mg PO Q6H PRN 09/24/19 08/17/20 History verapamil 80 mg tablet 80 mg PO TID #90 tab 11/04/19 08/17/20 Rx hydrocortisone 1 %-pramoxine 1 % 1 appln [place] QID PRN #10 gm 12/03/19 08/17/20 Rx rectal foam acetaminophen [Tylenol Extra 1,000 mg PO Q6H PRN 12/23/19 08/17/20 History Strength] albuterol sulfate 0.63 mg/3 mL 0.63 mg INH Q6H PRN #75 ml 03/24/20 08/17/20 Rx solution for nebulization albuterol sulfate 90 mcg/actuation 2 puffs INH Q6H PRN #8 gm 03/24/20 08/17/20 Rx aerosol inhaler diclofenac sodium 1 % topical gel 2 g TOPICAL QID PRN #100 gm 03/24/20 08/17/20 Rx hydrocodone-acetaminophen [[place]] 1 tab PO Q6H PRN #10 tab 05/22/20 08/17/20 Rx lidocaine [Lidoderm] 1 patch TOPICAL DAILY PRN 06/09/20 08/17/20 History meclizine 25 mg PO Q6 PRN #20 tab 06/12/20 08/17/20 Rx atorvastatin 80 mg tablet 80 mg PO HS #90 tab 06/22/20 08/17/20 Rx clopidogrel 75 mg tablet 75 mg PO QAM #90 tab 06/22/20 08/17/20 Rx insulin NPH isoph U-100 human 100 10 - 30 unit SUBCUT AC #30 ml 06/22/20 08/17/20 Rx unit/mL subcutaneous suspension isosorbide mononitrate 60 mg 60 mg PO QAM #90 tab 06/22/20 08/17/20 Rx tablet,extended release 24 hr lisinopril 20 mg tablet 20 mg PO QAM #90 tab 06/22/20 08/17/20 Rx metformin 500 mg tablet 500 mg PO TIDM #270 tab 06/22/20 08/17/20 Rx montelukast 10 mg tablet 10 mg PO HS #90 tab 06/22/20 08/17/20 Rx pantoprazole 40 mg tablet,delayed 40 mg PO QAM #90 tab 06/22/20 08/17/20 Rx release nitroglycerin 0.4 mg sublingual 0.4 mg SUBLINGUAL Q5M PRN #100 tab 06/26/20 08/17/20 Rx tablet mometasone-formoterol [Dulera] 2 inh INHALATION BID #13 g 08/12/20 08/17/20 Rx prednisone See Rx Instructions .ROUTE 08/12/20 08/17/20 Rx .COMPLEX #42 tab Past Med/Surg History Medical History Arthritis of knee CAD (coronary artery disease) CHF (congestive heart failure) Chronic low back pain CSF leak Degeneration of cervical intervertebral disc External hemorrhoids Frequent falls Left-sided chest pain Severe asthma with acute exacerbation TIA (transient ischemic attack) Urinary incontinence Vertebral artery stenosis Surgical History Facial fracture (2014) WITH RECONSTRUCTION History of bilateral tubal ligation History of cardiac cath X2 STENTS - (~2010, IN [place], [place]). NO STENTS - ([facility] @ ~2014) History of colonoscopy History of esophagogastroduodenoscopy (EGD) History of heart artery stent X2 STENTS (2010) UNSURE OF KIND. NO STENT CARDS PER PT. History of mandibular surgery S/P left knee arthroscopy S/p tibial fracture open treatment of Fx with plate/screws, Left leg Status post right foot surgery Family History Mother Breast cancer, Onset Age: 64 Type 2 diabetes mellitus Father Diabetes Coronary heart disease Type 2 diabetes mellitus Myocardial infarction, Onset Age: 52 Family/Other Hypertension sibling Denies family history of Ovarian cancer Social History Smoking Status: Former smoker Tobacco Type: Cigarettes Second Hand Exposure: No; Hx Alcohol Use: No Hx Substance Use: No Preferred Language: Tajik Communication Ability: Effective Visual Impairment: No Limitations Administrative Judge Required: No Beliefs That Will Affect Care: None marital status: Current Living Situation: Spouse Feels Safe at Home: Yes Assistive Devices: BiPap Review of Systems Constitutional: no fever and no chills Ear, Nose, Mouth, Throat: no nasal congestion, no post nasal drip, no sore throat and no hoarseness Respiratory: + cough, + dyspnea, + pain on inspiration and + wheezing; no change in sputum and no sputum production Cardiovascular: + chest pain; no palpitations, no lightheadedness and no edema Gastrointestinal: no abdominal pain, no nausea, no vomiting, no hematemesis, no constipation, no diarrhea/loose stools and no blood in stools Genitourinary: no dysuria Integumentary: no rash Neurologic: no unsteadiness, no falls, no tingling and no numbness Physical Exam Physical Exam: Constitutional: obese, anxiously in distress, able to converse Eyes: EOMI, pupils equal and reactive bilaterally, no scleral icterus Cardiac: tachycardic, regular rhythm, no murmurs, gallops or rubs. Normal S1, S2 Pulm: end expiratory wheezes throughout, sounding generally "tight", no rhonchi, no basilar crackles Abd: soft, nontender, nondistended, normal bowel sounds, no rebound or guarding Extremities: 2+ peripheral pulses, no edema Neuro: no focal deficits, moving all 4 limbs, A&Ox3 Results & Data Results & Data ([facility]) Vital Signs (Past 12 Hours) Vital Signs Temp Pulse Pulse Resp BP Pulse Ox 08/17/20 14:30 99 H 24 136/68 97 08/17/20 14:01 96 H 28 H 96 08/17/20 14:00 98 H 33 H 124/78 96 08/17/20 13:32 100 H 22 148/71 H 97 08/17/20 13:30 104 H 22 96 08/17/20 13:01 90 21 100 08/17/20 13:00 87 15 116/63 99 08/17/20 12:31 88 22 100 08/17/20 12:30 84 17 102/70 99 08/17/20 12:13 82 18 98 08/17/20 12:00 94 H 23 123/89 98 08/17/20 11:48 96 H 18 100 08/17/20 11:25 97 08/17/20 11:09 36.9 C 104 H 92 H 22 116/83 99 Vital Signs Temp Pulse Resp BP Pulse Ox 36.9 C 92 H 24 116/83 99 08/17/20 11:09 08/17/20 11:09 08/17/20 11:09 08/17/20 11:09 08/17/20 11:09 Laboratory Results WBC 17.64 K/uL (4.8-10.8) H 08/17/20 11:10 RBC 4.41 M/uL (4.2-5.4) 08/17/20 11:10 Hgb 13.5 g/dL (12.0-16.0) 08/17/20 11:10 Hct 42.0 % (37-47) 08/17/20 11:10 MCV 95.2 fL (80-100) 08/17/20 11:10 MCH 30.6 pg (25-34) 08/17/20 11:10 MCHC 32.1 g/dL (32-36) 08/17/20 11:10 RDW Std Deviation 51.4 fL (36.4-46.3) H 08/17/20 11:10 RDW Coeff of [place]o 14.9 % (11.5-14.5) H 08/17/20 11:10 Plt Count 253 K/uL (130-400) 08/17/20 11:10 MPV 11.3 fL (7.4-10.4) H 08/17/20 11:10 Immature Gran % (Auto) 0.5 % 08/17/20 11:10 Neut % (Auto) 55.6 % 08/17/20 11:10 Lymph % (Auto) 38.4 % 08/17/20 11:10 [place] % (Auto) 4.8 % 08/17/20 11:10 Eos % (Auto) 0.6 % 08/17/20 11:10 Baso % (Auto) 0.1 % 08/17/20 11:10 Neut # (Auto) 9.81 K/uL (1.4-6.5) H 08/17/20 11:10 Lymph # (Auto) 6.78 K/uL (1.2-3.4) H 08/17/20 11:10 [place] # (Auto) 0.85 K/uL (0.11-0.59) H 08/17/20 11:10 Eos # (Auto) 0.10 K/uL (0-0.5) 08/17/20 11:10 Baso # (Auto) 0.01 K/uL (0-0.2) 08/17/20 11:10 Immature Gran # (Auto) 0.09 K/uL (0.00-0.02) H 08/17/20 11:10 PT 10.3 Seconds (9.0-12.0) 08/17/20 11:10 INR 1.0 (0.9-1.1) 08/17/20 11:10 APTT < 20.0 Seconds (21.0-31.0) L 08/17/20 11:10 PTT Ratio 0.7 08/17/20 11:10 Sodium 142 mmol/L (136-145) 08/17/20 11:10 Potassium 4.1 mmol/L (3.5-5.1) 08/17/20 11:10 Chloride 109 mmol/L (98-107) H 08/17/20 11:10 Carbon Dioxide 27 mmol/L (21-32) 08/17/20 11:10 Anion Gap 6.0 (3-11) 08/17/20 11:10 BUN 16 mg/dl (7-18) 08/17/20 11:10 Creatinine 0.80 mg/dl (0.6-1.2) 08/17/20 11:10 Est Cr Clr Drug Dosing 101.4 ml/min 08/17/20 11:10 Est GFR ( Amer) 96.2 08/17/20 11:10 Est GFR (Non-Af Amer) 83.0 08/17/20 11:10 BUN/Creatinine Ratio 20.4 (10-20) H 08/17/20 11:10 Glucose 121 mg/dl (70-99) H 08/17/20 11:10 Calcium 8.7 mg/dl (8.5-10.1) 08/17/20 11:10 Magnesium 2.4 mg/dl (1.8-2.4) 08/17/20 11:10 Magnesium Cancelled 08/17/20 11:10 Total Bilirubin 0.5 mg/dl (0.2-1) 08/17/20 11:10 AST 15 U/L (15-37) 08/17/20 11:10 ALT 39 U/L (12-78) 08/17/20 11:10 Alkaline Phosphatase 111 U/L (45-117) 08/17/20 11:10 Troponin I < 0.015 ng/ml (0-0.045) 08/17/20 11:10 NT-Pro-B Natriuret Pep 599 pg/ml (0-900) 08/17/20 11:10 Total Protein 6.9 gm/dl (6.4-8.2) 08/17/20 11:10 Albumin 3.0 gm/dl (3.4-5.0) L 08/17/20 11:10 Globulin 3.9 gm/dl (2.5-4.0) 08/17/20 11:10 Albumin/Globulin Ratio 0.8 (0.9-2) L 08/17/20 11:10 Specimen Hemolysis 08/17/20 11:10 Code Status & VTE Plan VTE Prophylaxis Plan VTE Prophylaxis will be ordered: Yes Supervising Physician Co-Signing Physician Notes I personally examined the patient and verified all duran points of history and exam, discussed case, and agree with decision making with Dr Chang. feeling chest tightness all day. sob for several days. vitals noted fearful appearing and tearful. heent nc at mmm cardio tachy to about 130-140 sinus reg lungs coarse but fairly good air entry no significant wheeze sounds better than when i last listened to her last week no accessory muscles. dyspnea/chest tightness -normal EKG and now two neg troponins in the face of pain going on all day - highly unlikely to be cardiac -lungs suprisingly clear and not hypoxic, not hypercapnic - CT chest for r/o PE or subtle infiltrate -continue management as COPD/asthma exac for now and follow closely otherwise as above Resident Activity Tracking Resident Involvement: Resident Care Provided Care Provided: Adult Hospital Medicine (1) CAD (coronary artery disease) Associated angina: with unstable angina Coronary Disease-Associated Artery/Lesion type: [place] artery [place] vs. transplanted heart: [place] heart Qualified Code(s): I25.110 - Atherosclerotic heart disease of [place] coronary artery with unstable angina pectoris (2) Chest pain Chest pain type: precordial pain Qualified Code(s): R07.2 - Precordial pain (3) Asthma Asthma complication type: with acute exacerbation Asthma persistence: persistent Asthma severity: moderate Qualified Code(s): J45.41 - Moderate persistent asthma with (acute) exacerbation
[2020-08-17 17:55] LABS: Base Excess ABG -1.2 mEq/L (-9-1.8); HCO3 ABG 23 mmol/L (19-24); PCO2 ABG 37 mmHg (35-46); PO2 ABG 80 mmHg (80-95); pH ABG 7.41 (7.35-7.45)
[2020-08-17 17:57] LABS: Allen Test Pos (Pos)
[2020-08-17] MEDS ORDERED: OPTIRAY 320 125ml IV ONE (21:16)
[2020-08-17] MEDS ORDERED: ALBUTEROL HFA 8 GM INHALER INH PRN ×2 (22:38)
[2020-08-17] MEDS ORDERED: AZITHROMYCIN 250 MG TAB PO ONE (22:38)
[2020-08-17] MEDS ORDERED: ALUMINUM/MAGNESIUM SUSP 30 ML UDC PO PRN (22:38)
[2020-08-17] MEDS ORDERED: LIDOCAINE 5% 1 PATCH TD PRN (22:38)
[2020-08-17] MEDS ORDERED: DICLOFENAC SOD 1% GEL 100 GM TUBE EXT PRN (22:38)
[2020-08-17] MEDS ORDERED: ACETAMINOPHEN 500 MG TAB PO PRN (22:38)
[2020-08-17] MEDS ORDERED: ACETAMINOPHEN 325 MG TAB PO PRN (22:38)
[2020-08-17] MEDS ORDERED: PROCHLORPERAZINE MALEATE 10 MG TAB PO PRN (22:38)
[2020-08-17] MEDS ORDERED: MAGNESIUM HYDROXIDE SUSP 30 ML UDC PO PRN (22:38)
[2020-08-17] MEDS ORDERED: ONDANSETRON INJ 2 MG/ML 2 ML VIAL IV PRN (22:38)
[2020-08-17] MEDS ORDERED: POLYETHYLENE (MIRALAX) 17 GM PACK PO PRN (22:38)
[2020-08-17] MEDS ORDERED: NITROGLYCERIN SL 0.4 MG/TAB TAB SL PRN (22:38)
[2020-08-17] MEDS ORDERED: MECLIZINE HCL 25 MG TAB PO PRN (22:51)
[2020-08-17] MEDS ORDERED: GLUCOSE 10 TABS/TUBE PO PRN ×2 (23:00→23:47)
[2020-08-17] MEDS ORDERED: GLUCAGON FOR INJ 1 MG VIAL IM PRN (23:00)
[2020-08-17] MEDS ORDERED: CARBOHYDRATES FOR HYPOGLYCEMIA PO PRN ×2 (23:00→23:47)
[2020-08-17] MEDS ORDERED: ALBUTEROL 0.083% NEBU SOLN 3 ML VIAL INH PRN (23:00)
[2020-08-17] MEDS ORDERED: GLUCOSE 40% GEL 15 GM TUBE PO PRN ×2 (23:00→23:47)
[2020-08-17] MEDS ORDERED: DEXTROSE 50% 50 ML SYRINGE IV PRN ×2 (23:00→23:47)
[2020-08-17] MEDS: ALBUT/IPRATROP 3MG/0.5MG NEB 3 ML VIAL NEB SCH (23:29)
[2020-08-17] MEDS: VERAPAMIL HCL 40 MG TAB PO SCH (23:40)
[2020-08-17] MEDS: DOCUSATE SODIUM 100 MG CAP PO SCH (23:40)
[2020-08-17] MEDS: ATORVASTATIN 40 MG TAB PO SCH (23:41)
[2020-08-17] MEDS: ENOXAPARIN INJ 40 MG/0.4 ML SYR SQ SCH (23:43)
[2020-08-17] MEDS: MONTELUKAST SODIUM 10 MG TABLET PO SCH (23:43)
[2020-08-17] MEDS ORDERED: GLUCAGON FOR INJ 1 MG VIAL SQ PRN (23:47)
[2020-08-17] MEDS: MoRPHine SULFATE 2 MG/ML CARP IV PRN (23:58)
[2020-08-18] MEDS ORDERED: INSULIN GLARGINE SOLOSTAR 100 UNITS/ML 3 ML PEN SQ STA (00:01)
[2020-08-18] MEDS: INSULIN ASPART 100 UNITS/ML 3 ML PEN SC SCH ×5 (00:59→21:05)
[2020-08-18] MEDS: ALBUT/IPRATROP 3MG/0.5MG NEB 3 ML VIAL NEB SCH ×6 (02:57→23:07)
--- NOTE | 2020-08-18 05:26 | Electrocardiogram Report ---
Test Reason : Blood Pressure : / mmHG Vent. Rate : 088 BPM Atrial Rate : 088 BPM P-R Int : 144 ms QRS Dur : 080 ms QT Int : 360 ms P-R-T Axes : 028 -01 038 degrees QTc Int : 435 ms Poor data quality, interpretation may be adversely affected Normal sinus rhythm Possible Left atrial enlargement Left ventricular hypertrophy Abnormal ECG When compared with ECG of 07-AUG-2020 12:38, Nonspecific T wave abnormality, improved in Lateral leads Confirmed by Mor Solis ([id number]) on 08/18/2020 5:26:20 AM Referred By: Confirmed By:Mor Solis
--- NOTE | 2020-08-18 06:48 | Hospitalist Progress Note ---
Date of Service August 18, 2020 Assessment & Plan (1) Chest pain: 54 yo F PMhx asthma, DM2, HTN, HLD, GERD, CAD, recently discharged from hospital, admitted for worsening shortness of breath and CP. asthma vs COPD - remote smoking hx - no PFTs documented - increased dulera last admission without improvement - may benefit from addition of anticholinergic medication to regimen - Duonebs Q4, incentive spirometry, nasal cannula PRN with goal spO2 88-94 - continue montelukast - CTA to eval pulm disease/PE after COVID negative - PRN albuterol inhalers. - no change to leukocytosis - considered mild chf exac, but less likely given neg CTA and BNP - most likely copd exac w/ some component of anxiety. outpatient pfts DM2 -sugars in the 300s. stopped home metformin while here. 20u glargine + aspart (correction factor 20, 1:7 carb ratio). Will increase AM glargine to 25u. CAD - EKG sinus tach in ER with LVH, no ST changes - first trop neg, trend trops x3 - echo 10/2019 EF 50-55%, mild MR, mild TR - continue statin, plavix, asa - per cardiology note 10/2019, Essentially normal coronary arteries on cardiac catheterization 2014, negative DSE in November 2018. HTN - continue lisinopril 20, isosorbide mononitrate 60, verapamil 80 mg TID DVT ppx: lovenox 40 SQ FEN/GI: Dm2/CAD diet, PO fluids Dispo: med/surg Code Status: Full Code (2) SOB (shortness of breath): (3) CAD (coronary artery disease): (4) Asthma: Admission and Anticipated Discharge Date Admission Date: August 17, 2020 Supervising Physician Co-Signing Physician Notes I personally examined the patient and verified all duran points of history and exam, discussed case, and agree with decision making with Dr Martin. breathing feels a little better chest pain still fairly bad not really ipmroved vitals noted on bipap resting comfortably. heent nc at mmm. lungs cta b/l no r/r/w good effort. heart improved rate. msk/ost - b/l ribs VERY TTP decreased ROM - balanced ligamentous tension - improved tissue texture some - quite painful during BLT treatment but pt tolerated well. dyspnea/chest tightness -w/u very reassuring for threatening pathology -- suspect some asthma/COPD flare but also after further review - strongly suspect biomechanical rib pain causing a lot of pain/pain with breathing/making dyspnea feel worse. continue current lung treatments, see below otherwise rib pain/somatic dysfunction ribcage -OMT as above -topical diclofenac -ongoing PRN morphine otherwise as above Subjective Currently, her breathing is not as bad. No home o2. Uses home nebulizer and cpap. This hospitalization feels about same severity as previous ones. Hasn't seen pulmonary yet, was supposed to f/u after. Former smoker .5 ppd 20 years. last smoked 6 months. no other substances. rare etoh, a drink every 3-4 weeks. hx asthma dx'd as teen. albuterol, dulera, and singular. States that gas leak in [place] last week triggered her sxs. worse than her usual asthma episodes. The prednisone PO that she was discharged home w/ wasn't as helpful as the IV course she had received in the hospital. Still having the CP. 6/10 currently, goes to 4 after morphine, but returns after it wears off. Current cp is more mid-upper sternal. dull. like sitting on chest, pressure. no radiation. sometimes feel near neck. constant. 6/10 severity. onset 2 nights ago while at rest. + [place] (frontal, doesn't feel like migraine). pleuritic. Pressing on it worsens it. not exertional. +vega. breathing is better when lie down flat. Cp feels different from the episode that led to stents (numb L shoulder w/ tingling. cp more at L chest w/ aching) , approx BID hx cad s/p 2 stents s/p abnl stress test. [facility]. 2007 couple TIAs. 2011, 2014 chf (was told bottom of heart was damaged). leg swelling at home sometimes mgf stroke, cancer. mom: cancer dm. mgm cancer, stroke. father: mi at 52. no current cough. transient cough was nonproductive. no uri sxs. had seen [facility] cardiology beginning of this year in past. no recent stress test. Review of Systems Review of Systems: Constitutional: Denies fever, chills, weight change Eyes: Denies blurry vision, vision changes ENT: Denies sore throat, sinus pain Cardiovascular: See HPI Respiratory: See HPI Gastrointestinal: Denies abdominal pain, nausea, vomiting, constipation, diarrhea Genitourinary: Denies urinary symptoms including dysuria Musculoskeletal: Denies weakness, muscle aches/pain, joint aches/pain Neurological: Denies headache, numbness, tingling, focal weakness Physical Exam Physical Exam: General: Grossly A&O. NAD. Cooperative. HEENT: Atraumatic, normocephalic. EOMI. No LAD. No tonsillar exudates. Pulm: Loud low pitched exp wheezes. No respiratory distress. Cardiac: RRR, -mrg. Radial pulses intact and symmetrical. No bruits. 2+ pedal edema. Abdominal: Nontender, nondistended, soft. Msk: CP is reproducible. Results & Data Results & Data ([facility]) Vital Signs (Past 12 Hours) Vital Signs Temp Pulse Pulse Resp BP BP Pulse Ox 08/18/20 04:54 37.1 C 105 H 18 138/86 97 08/18/20 02:59 108 H 20 97 08/18/20 02:58 108 H 20 97 08/17/20 23:31 91 H 18 98 08/17/20 23:30 91 H 18 98 08/17/20 23:10 36.9 C 92 H 19 143/81 H 94 08/17/20 21:42 36.8 C 94 H 18 137/89 99 08/17/20 21:00 91 H 18 152/90 H 97 08/17/20 20:01 90 25 H 148/85 H 98 08/17/20 19:31 120 H 25 H 170/90 H 98 08/17/20 19:00 114 H 17 138/93 94 Resident Activity Tracking Resident Involvement: Resident Care Provided Care Provided: Adult Hospital Medicine (1) CAD (coronary artery disease) Associated angina: with unstable angina Coronary Disease-Associated Artery/Lesion type: [place] artery [place] vs. transplanted heart: [place] heart Qualified Code(s): I25.110 - Atherosclerotic heart disease of [place] coronary artery with unstable angina pectoris (2) Chest pain Chest pain type: precordial pain Qualified Code(s): R07.2 - Precordial pain (3) Asthma Asthma complication type: with acute exacerbation Asthma persistence: persistent Asthma severity: moderate Qualified Code(s): J45.41 - Moderate persistent asthma with (acute) exacerbation
[2020-08-18] MEDS ORDERED: INSULIN HUMAN NPH SQ SCH (07:30)
[2020-08-18] MEDS ORDERED: INFLUENZA ADMINISTRATION CHARGE ONE (08:00)
[2020-08-18] MEDS ORDERED: INFLUENZA VIRUS QUAD VACCINE 0.5 ML SYR IM ONE (08:00)
--- NOTE | 2020-08-18 08:33 | CT Scan Report ---
CHEST CTA for PULMONARY ARTERIES CT DOSE: 553.08 mGycm HISTORY: dyspnea TECHNIQUE: Multiaxial CT images of the chest were performed following the intravenous administration of contrast to evaluate the pulmonary arteries. Maximal intensity projection images were also obtaine d. A dose lowering technique was utilized adhering to the principles of ALARA. COMPARISON STUDY: Chest 08/17/2020. Chest CTA 12/04/2018. FINDINGS: Normal caliber thoracic aorta with no evidence for dissection. The heart is mildly enlarged . No pleural or pericardial effusions. Nondiagnostic evaluation of the subsegmental branches within t he bilateral lower lobes due to the respiratory motion. Otherwise, no filling defects within the frances ining pulmonary arteries to suggest pulmonary embolus. There is 9 mm hypodense nodule within the left thyroid lobe. No mediastinal or hilar lymphadenopathy. The caliber esophagus. Limited views of the u pper abdomen demonstrate a normal liver, spleen, and adrenal glands. No acute fractures within the vi sualized osseous structures. No pneumothorax. The central airways are patent. No focal lung consolida tions to suggest pneumonia. Stable 3 mm subpleural nodule within the right lung apex on image 209. IMPRESSION: 1. No evidence for pulmonary embolus with limitations as described above. 2. Stable 3 mm right upper lobe pulmonary nodule. This is likely benign. ACT 112: Negative or not required by law. Electronically signed by: Octaviano Garcia M.D. 08/18/2020 8:32 AM
[2020-08-18] MEDS: FLUTICASONE/VILANTEROL 100/25MCG 14 PUFFS/INHALER INH SCH (08:47)
[2020-08-18] MEDS: PANTOprazole 40 MG TAB PO SCH (08:48)
[2020-08-18] MEDS: ASPIRIN 81 MG ECTAB PO SCH (08:48)
[2020-08-18] MEDS: ENOXAPARIN INJ 40 MG/0.4 ML SYR SQ SCH ×2 (08:48→20:00)
[2020-08-18] MEDS: ISOSORBIDE MONO EXTENDED REL 60 MG TABCR PO SCH (08:48)
[2020-08-18] MEDS: DOCUSATE SODIUM 100 MG CAP PO SCH ×2 (08:48→19:59)
[2020-08-18] MEDS: VERAPAMIL HCL 40 MG TAB PO SCH ×3 (08:48→19:59)
[2020-08-18] MEDS: lisinopril 20 MG TAB PO SCH (08:49)
[2020-08-18] MEDS: predniSONE 10 MG TABLET PO SCH (08:49)
[2020-08-18] MEDS: CLOPIDOGREL BISULFATE 75 MG TAB PO SCH (08:49)
[2020-08-18] MEDS: HYDROCODONE/ACETAMOPHEN 5/325MG TAB PO PRN ×2 (08:59→15:56)
[2020-08-18] MEDS ORDERED: INSULIN GLARGINE SOLOSTAR 100 UNITS/ML 3 ML PEN SC SCH ×2 (09:00→21:00)
--- NOTE | 2020-08-18 19:25 | Billing Data ---
Date of Service August 18, 2020 Coding Level of Care Code 08926 Subseq Obs Care Lvl 3
--- NOTE | 2020-08-18 19:25 | Hospitalist Progress Note ---
Date of Service August 18, 2020 Assessment & Plan Admission and Anticipated Discharge Date Admission Date: August 17, 2020 Results & Data Results & Data ([facility]) Vital Signs (Past 12 Hours) Vital Signs Temp Pulse Resp BP Pulse Ox 08/18/20 16:13 98.2 F 87 16 100/63 94 08/18/20 15:29 61 17 98 08/18/20 11:09 90 18 96 08/18/20 08:39 98.2 F 89 18 138/89 96 PG Care Time/CCT Total # of Minutes Spent Total Time Spent with Patient: Total time spent is greater than 50% in coordination of care (as documented) at patient's floor/unit and/or counseling patient: Coding Level of Care Code None CPT Codes Musculoskeletal - Musculoskeletal: [address] 1-2 Body regions ([id number])
--- NOTE | 2020-08-18 19:49 | Billing Data ---
Date of Service August 17, 2020 Coding Level of Care Code 21476 OBS Care - Level 3
[2020-08-18] MEDS: ATORVASTATIN 40 MG TAB PO SCH (19:58)
[2020-08-18] MEDS: MONTELUKAST SODIUM 10 MG TABLET PO SCH (19:58)
[2020-08-18] MEDS ORDERED: AZITHROMYCIN 250 MG TAB PO SCH (21:00)
[2020-08-18] MEDS: MoRPHine SULFATE 2 MG/ML CARP IV PRN (22:18)
[2020-08-18] MEDS: DICLOFENAC SOD 1% GEL 100 GM TUBE EXT SCH (23:38)
[2020-08-19] MEDS: ALBUT/IPRATROP 3MG/0.5MG NEB 3 ML VIAL NEB SCH ×4 (03:20→15:12)
[2020-08-19] MEDS: HYDROCODONE/ACETAMOPHEN 5/325MG TAB PO PRN ×3 (05:43→17:19)
--- NOTE | 2020-08-19 06:49 | Hospitalist Progress Note ---
Date of Service August 19, 2020 Assessment & Plan (1) Chest pain: 54 yo F PMhx asthma, DM2, HTN, HLD, GERD, CAD, recently discharged from hospital, admitted for worsening shortness of breath and CP. vitals wnl at 0800 Vicodin received at 0543. Previous dose at 1556 08/18/20 f/u AM sugars leukocytosis 17.64->17.06 azithro qhs bmp ok adjust meds to cover for copd. to include muscarinic spiriva to her meds list. also make sure not using maintenance inhaler as prn. pfts outpatient cp: msk voltaren + short course of pain medicine. OMT referral. continue home dm regimen. A1c 8.3 08/09/20 asthma vs COPD - remote smoking hx - no PFTs documented - increased dulera last admission without improvement - may benefit from addition of anticholinergic medication to regimen - Duonebs Q4, incentive spirometry, nasal cannula PRN with goal spO2 88-94 - continue montelukast - CTA to eval pulm disease/PE after COVID negative - PRN albuterol inhalers. - no change to leukocytosis - considered mild chf exac, but less likely given neg CTA and BNP - most likely copd exac w/ some component of anxiety. outpatient pfts DM2 -sugars in the 300s. stopped home metformin 08/18/20. 20u glargine AM, 20u glargine PM + aspart (correction factor 20, 1:7 carb ratio). CAD - EKG sinus tach in ER with LVH, no ST changes - first trop neg, trend trops x3 - echo 10/2019 EF 50-55%, mild MR, mild TR - continue statin, plavix, asa - per cardiology note 10/2019, Essentially normal coronary arteries on cardiac catheterization 2014, negative DSE in November 2018. HTN - continue lisinopril 20, isosorbide mononitrate 60, verapamil 80 mg TID DVT ppx: lovenox 40 SQ FEN/GI: Dm2/CAD diet, PO fluids Dispo: med/surg Code Status: Full Code (2) SOB (shortness of breath): (3) CAD (coronary artery disease): (4) Asthma: Admission and Anticipated Discharge Date Admission Date: August 17, 2020 Subjective Breathing is better today than yesterday. Almost at her baseline. She woke up w/ the chest pain this AM, 5/10 intensity, currently 3/10 after pain medicine. all ros neg appetite ok. last BM yesterday. possibly ready for dispo. requested to be d/c w/ albuterol and pain medicines. States her leg swelling is a little better. Has not been elevating. Overall, feels better than when she came in. Review of Systems Review of Systems: Constitutional: Denies fever, chills, weight change Eyes: Denies blurry vision, vision changes ENT: Denies sore throat, sinus pain Cardiovascular: Denies chest pain, palpitations Respiratory: Denies shortness of breath, cough, sputum production, difficulty breathing Gastrointestinal: Denies abdominal pain, nausea, vomiting, constipation, diarrhea Genitourinary: Denies urinary symptoms including dysuria Musculoskeletal: Denies weakness, muscle aches/pain, joint aches/pain Neurological: Denies headache, numbness, tingling, focal weakness Physical Exam Physical Exam: General: Grossly A&O. NAD. Cooperative. HEENT: Atraumatic, normocephalic. EOMI Pulm: CTAB. -wheezes, -rales, -rhonchi. No respiratory distress. Cardiac: RRR, -mrg. Radial pulses intact and symmetrical. Abdominal: Nontender, nondistended, soft. diffuse exp wheezes, milder than yesterday. R anterior lung field louder exp wheeze. heart ok. pedal edema trace/1+, improved from yesterday Results & Data Results & Data ([facility]) Vital Signs (Past 12 Hours) Vital Signs Temp Pulse Pulse Resp BP Pulse Ox 08/19/20 03:20 81 81 16 98 08/19/20 00:15 36.8 C 92 H 18 131/82 97 08/18/20 23:09 83 14 98 08/18/20 23:07 83 19 98 08/18/20 20:04 124/75 08/18/20 19:32 96 H 22 99 Resident Activity Tracking Resident Involvement: Resident Care Provided Care Provided: Adult Hospital Medicine (1) CAD (coronary artery disease) Associated angina: with unstable angina Coronary Disease-Associated Artery/Lesion type: [place] artery [place] vs. transplanted heart: [place] heart Qualified Code(s): I25.110 - Atherosclerotic heart disease of [place] coronary artery with unstable angina pectoris (2) Chest pain Chest pain type: precordial pain Qualified Code(s): R07.2 - Precordial pain (3) Asthma Asthma complication type: with acute exacerbation Asthma persistence: persistent Asthma severity: moderate Qualified Code(s): J45.41 - Moderate persistent asthma with (acute) exacerbation
[2020-08-19] MEDS ORDERED: metFORMIN HCL 500 MG TAB PO SCH (08:00)
[2020-08-19] MEDS: DOCUSATE SODIUM 100 MG CAP PO SCH (08:13)
[2020-08-19] MEDS: FLUTICASONE/VILANTEROL 100/25MCG 14 PUFFS/INHALER INH SCH (08:13)
[2020-08-19] MEDS: ENOXAPARIN INJ 40 MG/0.4 ML SYR SQ SCH (08:14)
[2020-08-19] MEDS: CLOPIDOGREL BISULFATE 75 MG TAB PO SCH (08:14)
[2020-08-19] MEDS: predniSONE 10 MG TABLET PO SCH (08:14)
[2020-08-19] MEDS: lisinopril 20 MG TAB PO SCH (08:14)
[2020-08-19] MEDS: VERAPAMIL HCL 40 MG TAB PO SCH ×2 (08:14→13:16)
[2020-08-19] MEDS: ISOSORBIDE MONO EXTENDED REL 60 MG TABCR PO SCH (08:14)
[2020-08-19] MEDS: ASPIRIN 81 MG ECTAB PO SCH (08:14)
[2020-08-19] MEDS: DICLOFENAC SOD 1% GEL 100 GM TUBE EXT SCH ×2 (08:15→13:16)
[2020-08-19 09:00] LABS: Hematocrit (blood only) 40.7 % (37-47); Hemoglobin 12.9 g/dL (12.0-16.0); Mean Corpuscular Hemoglobin 30.4 pg (25-34); Mean Corpuscular Hgb Conc 31.7 g/dL (32-36); Mean Corpuscular Volume 95.8 fL (80-100); Mean Platelet Volume 10.9 fL (7.4-10.4); Platelet Count 212 K/uL (130-400); RDW Coefficient of Variation 15.2 % (11.5-14.5); RDW Standard Deviation 53.2 fL (36.4-46.3); Red Blood Count 4.25 M/uL (4.2-5.4); White Blood Count 17.06 K/uL (4.8-10.8)
[2020-08-19] MEDS ORDERED: INSULIN GLARGINE SOLOSTAR 100 UNITS/ML 3 ML PEN SC SCH (09:00)
[2020-08-19] MEDS: INSULIN ASPART 100 UNITS/ML 3 ML PEN SC SCH ×2 (09:07→13:20)
[2020-08-19] MEDS: PANTOprazole 40 MG TAB PO SCH (09:12)
[2020-08-19 09:31] LABS: BUN Creatinine Ratio 23.6 (10-20); Calcium 8.6 mg/dl (8.5-10.1); Creatinine Clr Calc Pharmacy 91.1 ml/min; Est GFR (African American) 83.4; Potassium 3.5 mmol/L (3.5-5.1)
[2020-08-19 09:34] LABS: Basophils # (auto) 0.01 K/uL (0-0.2); Basophils % (auto) 0.1 %; Eosinophils # (auto) 0.04 K/uL (0-0.5); Eosinophils % (auto) 0.2 %; Immature Granulocytes # (auto) 0.07 K/uL (0.00-0.02); Immature Granulocytes % (auto) 0.4 %; Lymphocytes # (auto) 7.98 K/uL (1.2-3.4); Lymphocytes % (auto) 46.8 %; Monocytes # (auto) 0.96 K/uL (0.11-0.59); Monocytes % (auto) 5.6 %; Neutrophils % (auto) 46.9 %; RBC Morphology Unremarkable
--- NOTE | 2020-08-19 20:04 | Discharge Summary ---
Date of Service August 19, 2020 Principal Diagnosis asthma exacerbation rib related chest pain Discharge Exam gen aaox3 pleasant/smiling, nad heent nc at mmm lungs good air entry faint wheeze mid and upper lung mohr on expiration no rhonchi no rales good effort msk/ost - b/l ribs and intercostals tender/reduced range of motion - balanced ligamentous tension - improved Discharge Data Allergies Allergy/AdvReac Type Severity Reaction Status Date / Time No Known Allergies Allergy Verified 08/17/20 09:37 Consultations 08/17/20 14:21 ED Decision to Admit Stat Ordered Studies 08/17/20 19:40 CT angio chest PE protocol Urgent Hospital Course (1) Chest pain: extensive w/u negative for cardiac and pulmonary cause - VERY tender and did have some tissue response to OMT --> strongly suggestive that the pain is biomechanical/rib related (likely from having been sick w asthma exac for so long) (2) SOB (shortness of breath): exac of chronic lung disease -no PFTs located, and does have prior smoking hx - ?COPD vs asthma - improving/safe for home in either respect - but at least until PFTs can be done will start anticholinergic inhaler -educated on scheduled use of this as well as of her dulera (was using prn) -continue albuterol prn -steroid taper -safe for home --->close outpt f/u, ongoing monitoring and education on useage of inhalers, PFTs once she is at baseline state (3) CAD (coronary artery disease): stable (4) Asthma: see above - PFTs to be done as outpt Total Time Total Time Spent Total Time Spent (In Minutes): <30 Discharge Plan Discharge Items Patient Disposition: Home - Self-Care Reason For Visit: DYSPNEA Discharge Diagnosis: dyspnea Activity: Per Instructions section Non-emergency contact: Primary Care Provider Call non-emergency contact if: you have any medication questions, your symptoms worsen and you have a fever Follow-up/Referrals: Bill Sanders DO [Physician] - 09/10/20 2:40 pm ([facility] Therapy) Nita Torres MD [Primary Care Provider] - 08/26/20 10:15 am (APPT WITH [facility]) Diet: Carb Consistent or DM2 Addtl Attending Provider Instructions: Hi Ms. Lara, You were admitted to [facility] on 08/17[facility]20 after your PCP noticed that you were quite short of breath and you had also complained of chest pain. You were recently seen and discharged from the hospital on 08/12/20 for similar symptoms. You stated that your symptoms had improved at the time of hospital discharge, but they worsened after you went home. Noncardiac chest pain During this hospital admission, we checked multiple labs. You chest xray was normal. You chest CT scan also looked normal and did not show any blood clots or fluid overload. You had some leg swelling, but this the imaging is a better measure of your fluid status. Your troponin (heart enzyme that we check for chest pain complaints) was normal and we had checked 3 sets of this hours apart. Your ekg was normal as well. Given these normal findings, and the history/physical exam of your chest pain, the chest pain is most likely musculoskeletal. Breathing complaint, asthma versus COPD, or both home breathing regimen. albuterol nebulizer as needed up to 4x/day. albuterol inhaler as needed up to 4x/day, 4 doses max/day from either method. Dulera 2 inhalations BID. montelukast 10 mg nightly. Be sure to take the Dulera twice daily and not only when needed. I have added Atrovent (ipratropium bromide) inhaler to help treat likely COPD (especially in context of your smoking history). 2 puffs 3 times a day. I have prescribed PO (pill form) of the steroid medicine (prednisone) and the instruction will be 30 mg for 4 days, 20 mg for 4 days, and 10 mg for 4 days. These are 10 mg tabs, and you can take all the doses at a single time each day. Diabetes - continue home DM regimen. metformin 500mg 3x/day and the Novolin 10u as needed. You said you had previously used the Novolin twice a day, which is ok. See PCP in 1 week. The nursing staff will make the appointment for you and you will be called w/ the appointment time/date. Please see your PCP to follow up on your breathing regarding a pulmonary function test and for refills of your medicines. You will also be contacted about an osteopathic manipulative kajal tment session with Dr. Jonathon Sanders DO. return precautions If you develop any new or worsening symptoms including fever, chills, sweats, chest pain, chest pressure, difficulty breathing, uncontrolled nausea/vomiting, rash, wheezing, passing out or nearly passing out, bleeding, black/bloody bowel movements, or other new or concerning symptoms please call your primary care physician, or call 911 for re-evaluation in the emergency department if you are very concerned. Pending Studies at Discharge: No Stand-Alone Forms: My [facility], Smoking Cessation Medications and DC Order Prescriptions: New prednisone 10 mg tablet See Rx Instructions .ROUTE .COMPLEX Qty: 24 RF: 0 Atrovent HFA 17 mcg/actuation HFA aerosol inhaler 2 inh inhalation TID Qty: 12.9 RF: 0 albuterol sulfate 90 mcg/actuation HFA aerosol inhaler 2 inh inhalation Q6H PRN (Reason: shortness of breath or wheezing) Qty: 18 RF: 0 oxycodone-acetaminophen [Percocet] 5-325 mg tablet 1 tab PO Q8H PRN (Reason: pain (scale score 7-10)) Qty: 7 RF: 0 Continued aspirin [Aspirin Low Dose] 81 mg tablet,delayed release (DR/EC) 81 mg PO QAM Qty: 0 RF: 0 Proctofoam HC 1-1 % foam 1 appln MO QID PRN (Reason: Hemorrhoids) Qty: 10 RF: 5 diclofenac sodium [Voltaren] 1 % gel 2 g TOPICAL QID PRN (Reason: Pain) Qty: 100 RF: 5 albuterol sulfate 0.63 mg/3 mL solution for nebulization 0.63 mg INH Q6H PRN (Reason: shortness of breath or wheezing) Qty: 75 RF: 1 nitroglycerin [Nitrostat] 0.4 mg tablet, sublingual 0.4 mg Sublingual Q5M PRN (Reason: Chest Pain) Qty: 100 RF: 0 verapamil 80 mg tablet 80 mg PO TID Qty: 90 RF: 5 clopidogrel [Plavix] 75 mg tablet 75 mg PO QAM Qty: 90 RF: 3 lisinopril 20 mg tablet 20 mg PO QAM Qty: 90 RF: 3 pantoprazole 40 mg tablet,delayed release (DR/EC) 40 mg PO QAM Qty: 90 RF: 3 montelukast 10 mg tablet 10 mg PO HS Qty: 90 RF: 3 metformin 500 mg tablet 500 mg PO TIDM Qty: 270 RF: 3 Novolin N NPH U-100 Insulin 100 unit/mL suspension 10 - 30 unit SUBCUT AC Qty: 30 RF: 3 atorvastatin 80 mg tablet 80 mg PO HS Qty: 90 RF: 3 isosorbide mononitrate 60 mg tablet extended release 24 hr 60 mg PO QAM Qty: 90 RF: 3 docusate sodium [Colace] 100 mg Capsule 100 mg PO BID RF: 0 acetaminophen [Tylenol Extra Strength] 500 mg Tablet 1,000 mg PO Q6H PRN (Reason: Pain) RF: 0 hydrocodone-acetaminophen [[place]] 5-325 mg tablet 1 tab PO Q6H PRN (Reason: pain) Qty: 10 RF: 0 prochlorperazine maleate 10 mg Tablet 10 mg PO Q6H PRN (Reason: Nausea) RF: 0 lidocaine [Lidoderm] 5 % adhesive patch,medicated 1 patch topical DAILY PRN (Reason: Pain) RF: 0 meclizine 25 mg Tablet 25 mg PO Q6 PRN (Reason: dizziness) Qty: 20 RF: 0 Dulera 200-5 mcg/actuation HFA aerosol inhaler 2 inh inhalation BID Qty: 13 RF: 0 Discontinued albuterol sulfate 90 mcg/actuation HFA aerosol inhaler 2 puffs INH Q6H PRN (Reason: shortness of breath or wheezing) Qty: 8 RF: 0 prednisone 10 mg tablet See Rx Instructions .ROUTE .COMPLEX Qty: 42 RF: 0 Discharge Orders: Discharge Order (Routine); Ordered 08/19/20 Ordered By: Tate Martin Admission Data Admit Date/Time: 08/17/20 15:04 Attending Provider: Shaji Cedillo Admit Provider: Shaji Cedillo Primary Care Provider: Nita Torres Other Providers: Thelma Preez Lawrence Other Interventions: Discharge Summary Assessment (RN) Last Done: 08/19/20 16:51 Coding Level of Care Code 36092 OBS Care - Discharge Diagnoses Chest pain R07.2 Chest pain type: precordial pain SOB (shortness of breath) R06.02 CAD (coronary artery disease) I25.110 Coronary Disease-Associated Artery/Lesion type: [place] artery [place] vs. transplanted heart: [place] heart Associated angina: with unstable angina Asthma J45.41 Asthma severity: moderate Asthma persistence: persistent Asthma complication type: with acute exacerbation
== END 2020-08-19 17:20 | disposition home or self-care (01) ==
LOC: 3N 10:55 → ED 10:55 → 3N 21:20

== ENCOUNTER 2021-07-01 13:37 | Observation (INO) ==
--- NOTE | 2021-07-01 15:10 | XRay Report ---
XR chest 1V portable CLINICAL HISTORY: Chest Pain COMPARISON STUDY: June 19, 2021 FINDINGS: No pneumothorax. No pleural effusion. Diffuse reticular opacities which seen bilaterally are slightly worsened since prior and show interva l development of patchy airspace component throughout bilateral mid to lower lungs. Cardiomediastinal silhouette is slightly enlarged. Pulmonary vasculature is obscured.. Osseous structures: Mild degenerative changes of the spine. IMPRESSION: 1. Mixed reticular and airspace opacities throughout bilateral lungs, worsening since prior could re present multifocal pneumonia and/or pulmonary edema. 2. Redemonstration of mildly enlarged cardiac silhouette. 3. The rest of findings as above. ACT 112: Negative or not required by law. The above report was generated using voice recognition software. It may contain grammatical, syntax o r spelling errors. Electronically signed by: Ju Low DO 07/01/2021 3:09 PM
[2021-07-01] MEDS ORDERED: MoRPHine SULFATE 2 MG/ML CARP IV STA (15:33)
[2021-07-01] MEDS ORDERED: methylPREDNISolone 125 MG/2 ML VIAL IV STA (15:33)
[2021-07-01] MEDS ORDERED: FUROSEMIDE 40 MG/4 ML VIAL IV STA ×2 (15:33→17:47)
[2021-07-01] MEDS ORDERED: ALBUT/IPRATROP 3MG/0.5MG NEB 3 ML VIAL NEB STA (15:33)
--- NOTE | 2021-07-01 15:33 | Emergency Department Note ---
Impression & Plan Chest pain, SOB (shortness of breath) ED Provider Note INFORMANT: Patient ED PROVIDER(S): Alex Cobb MD CHIEF COMPLAINT: Chest pain PLAN: Disposition: Admitted Condition: Good Outpatient prescription management: none Referral: None MEDICAL DECISION MAKING: Patient presented because of chest pain. She was wheezing and short of breath. Her ECG did not reveal any acute findings. The patient's chest x-ray was concerning for pulmonary edema versus atypical infiltrate. Blood work was also concerning due to a elevated BNP and D-dimer. Troponin, CBC and chemistry panel was unremarkable. The patient had received aspirin and nitro prehospital. She was given Lasix, Solu-Medrol, and a DuoNeb here in the emergency department. She was also given a dose of IV morphine. She did feel better after the treatment. Because of the elevated D-dimer the patient went for CT imaging. This confirmed findings of pulmonary edema, pleural effusion and concerning for CHF. No PE was noted. The patient was reassessed and was doing better. Inpatient treatment was recommended and the patient was in agreement this time as she declined that last visit. [facility] Patient was evaluated in the ER for further management. Triage Nursing notes reviewed and agree them. Vital Signs: reviewed and remarkable for no significant abnormalities Differential diagnosis: Reactive airway disease, pneumonia, pneumothorax, COPD, CHF, infections, cardiac ischemia, pulmonary embolism, musculoskeletal, gastrointestinal, as well as other pathologies. Diagnostics interpreted by me: ECG: Twelve-lead ECG revealed normal sinus rhythm at 90 bpm. Left atrial enlargement. LVH. Prolonged QT. Cardiac Monitoring: Cardiac monitoring ordered by me: The patient was placed on continuous cardiac monitoring and observed. It revealed a normal sinus rhythm at 94 beats per minute without ectopy or evidence of dysrhythmia. Imaging studies: Chest x-ray and CT scans as above. I refer you to the EMR for further details. HPI: The patient is a 55 year old female who presents to the Emergency Room with complaints of CP and SOB. This started last several days and is worsening. The patient also notes the following associated symptoms, weight gain, leg swelling, fatigue, abdominal pain, diaphoresis, dry heaves, nausea. The patient has tried CPAP, neb, nitro for relieving factors. Current pain is rated as 7/10. Pt denies LOC, headache, fevers, chills, visual changes, neck pain, vomiting, back pain, melena, hematochezia, urinary symptoms, numbness, lymphadenopathy, rash, or other complaints. ROS: See above HPI for pertinent positives & negatives. A total of 10 systems reviewed and were otherwise negative. PAST MEDICAL HISTORY:See Below , CHF, DM PAST SURGICAL HISTORY:See Below, FAMILY HISTORY:See Below SOCIAL HISTORY:See Below, quit tobacco HOME MEDICATIONS:See Below ALLERGIES:See Below VITALS:See Below PHYSICAL EXAMINATION: GENERAL: Awake, alert, dyspneic and uncomfortable-appearing, in no distress HENT: Normocephalic, atraumatic. Oropharynx unremarkable. EYES: Normal conjunctiva. Sclera non-icteric. NECK: Inspection normal. Non-tender. Supple. No nuchal rigidity. FROM. No john s. RESPIRATORY: Scattered wheezes. Scattered rales. INcreased respiratory effort. CARDIAC: Normal rate. Normal rhythm. No murmurs. No rubs. Extremities warm and well perfused. Pulses equal. No JVD. GI: Soft, non-distended. No tenderness to palpation. No rebound or guarding. No masses. RECTAL: Deferred. MUSCULOSKELETAL: Atraumatic. Chest examination reveals no tenderness. The back is symmetrical on inspection without obvious abnormality. There is no CVA tenderness to palpation. No joint edema. LOWER EXTREMITIES: Calves are equal size bilaterally and non-tender. 1+ edema. No discoloration. NEURO: Normal sensorium. No sensory or motor deficits noted. SKIN: No rash or jaundice noted. Alex Cobb MD Past Med/Surg History Medical History Active asthma Arthritis of knee CHF (congestive heart failure) Chronic low back pain CSF leak Degeneration of cervical intervertebral disc Dizziness External hemorrhoids Frequent falls GERD (gastroesophageal reflux disease) Hemiplegic migraine History of tobacco abuse Left-sided chest pain Morbid obesity due to excess calories Obstructive sleep apnea Severe asthma with acute exacerbation TIA (transient ischemic attack) Urinary incontinence Vertebral artery stenosis Vitamin D deficiency Surgical History Facial fracture History of bilateral tubal ligation History of cardiac cath History of colonoscopy History of esophagogastroduodenoscopy (EGD) History of heart artery stent History of mandibular surgery S/P left knee arthroscopy S/p tibial fracture Status post right foot surgery Family History Mother Breast cancer, Onset Age: 64 Type 2 diabetes mellitus Father Diabetes Coronary heart disease Type 2 diabetes mellitus Myocardial infarction, Onset Age: 52 Family/Other Hypertension sibling Denies family history of Ovarian cancer Social History Smoking Status: Former smoker Tobacco Type: Cigarettes Years Smoked: 40; Second Hand Exposure: Yes; Do You Dip or Chew Tobacco: No; Tobacco Cessation Education Requested by Patient: No Hx Alcohol Use: No Hx Substance Use: No Preferred Language: Belarusian Communication Ability: Effective Visual Impairment: No Limitations [employer] Required: No Beliefs That Will Affect Care: None marital status: Current Living Situation: Spouse Other Information That Helps Us Care for You: No Feels Safe at Home: Yes Safety Concerns: Feels Safe At This Time Assistive Devices: CPAP Allergies Allergies Allergy/AdvReac Type Severity Reaction Status Date / Time No Known Allergies Allergy Verified 06/21/21 12:50 Home Meds Home Medications Medication Instructions Recorded Confirmed albuterol sulfate 0.63 mg/3 mL 0.63 mg CONTINUOUS NEBULIZATION UD 06/19/21 07/01/21 solution for nebulization PRN albuterol sulfate 90 mcg/actuation 2 puff INHALATION Q6 PRN 06/19/21 07/01/21 aerosol inhaler mometasone-formoterol HFA 200 2 puff INHALATION BID 06/19/21 07/01/21 mcg-5 mcg/actuation aerosol inhaler (Dulera) nitroglycerin 0.4 mg sublingual 0.4 mg SUBLINGUAL UD PRN 06/19/21 07/01/21 tablet (Nitrostat) diclofenac sodium 1 % topical gel 2 g TOPICAL QID PRN 07/01/21 07/01/21 ipratropium bromide 17 2 puff INHALATION TID 07/01/21 07/01/21 mcg/actuation HFA aerosol inhaler (Atrovent HFA) Previous Rx's Medication Instructions Recorded cyclobenzaprine 10 mg tablet 10 mg PO HS #30 tab 06/21/21 Results & Data (ED) Vital Signs Vital Signs - 24 hr 07/01/21 13:44 07/01/21 14:00 07/01/21 14:30 Temperature 37.0 C Temperature Source Oral Pulse Rate 101 H 99 H 101 H Pulse Rate [Right Finger] Pulse Rate from SpO2 Sensor 99 H 102 H Respiratory Rate 18 20 29 H Respiratory Effort / Characteristics Spontaneous Blood Pressure 131/79 127/71 143/89 H Blood Pressure Mean 96 89 107 Pulse Oximetry 97 97 99 Oxygen Delivery Method Nasal Cannula Nasal Cannula Nasal Cannula Oxygen Flow Rate 2 2 2 Sepsis Recent Fever Within 48 Hours No Sepsis New/Unexplained Change in Mental Status No Sepsis Action Taken by Nursing No Action Required Oxygen Flow Rate - Titration 2 Fraction of Inspired Oxygen - Titration 97 07/01/21 14:39 07/01/21 15:00 07/01/21 15:30 Temperature Temperature Source Pulse Rate 102 H 103 H Pulse Rate [Right Finger] Pulse Rate from SpO2 Sensor 102 H 103 H Respiratory Rate 21 22 Respiratory Effort / Characteristics Blood Pressure 126/82 145/104 H Blood Pressure Mean 96 117 Pulse Oximetry 100 100 Oxygen Delivery Method Room Air Nasal Cannula Nasal Cannula Oxygen Flow Rate 2 2 2 Sepsis Recent Fever Within 48 Hours Sepsis New/Unexplained Change in Mental Status Sepsis Action Taken by Nursing Oxygen Flow Rate - Titration 2 Fraction of Inspired Oxygen - Titration 07/01/21 16:02 07/01/21 16:43 07/01/21 17:00 Temperature Temperature Source Pulse Rate 102 H 101 H 99 H Pulse Rate [Right Finger] 101 H Pulse Rate from SpO2 Sensor 102 H 98 H Respiratory Rate 26 H 30 H 21 Respiratory Effort / Characteristics Spontaneous Labored Short of Breath Blood Pressure 126/90 122/89 Blood Pressure Mean 134 102 100 Pulse Oximetry 100 99 100 Oxygen Delivery Method Nasal Cannula Nasal Cannula Oxygen Flow Rate 2 2 2 Sepsis Recent Fever Within 48 Hours Sepsis New/Unexplained Change in Mental Status Sepsis Action Taken by Nursing Oxygen Flow Rate - Titration Fraction of Inspired Oxygen - Titration 07/01/21 17:30 Temperature Temperature Source Pulse Rate 103 H Pulse Rate [Right Finger] Pulse Rate from SpO2 Sensor 104 H Respiratory Rate 23 Respiratory Effort / Characteristics Blood Pressure 124/85 Blood Pressure Mean 98 Pulse Oximetry 98 Oxygen Delivery Method Nasal Cannula Oxygen Flow Rate 2 Sepsis Recent Fever Within 48 Hours Sepsis New/Unexplained Change in Mental Status Sepsis Action Taken by Nursing Oxygen Flow Rate - Titration Fraction of Inspired Oxygen - Titration Laboratory Data Result diagrams: 07/01/21 15:26 07/01/21 15:26 Lab Results 07/01/21 07/01/21 07/01/21 Range/Units 15:26 15:26 15:26 WBC 9.28 (4.8-10.8) K/uL RBC 4.15 L (4.2-5.4) M/uL Hgb 13.0 (12.0-16.0) g/dL Hct 40.3 (37-47) % MCV 97.1 (80-100) fL MCH 31.3 (25-34) pg MCHC 32.3 (32-36) g/dL RDW Std Deviation 53.6 H (36.4-46.3) fL RDW Coeff of Majo 15.4 H (11.5-14.5) % Plt Count 235 (130-400) K/uL MPV 11.1 H (7.4-10.4) fL Immature Gran % (Auto) 0.1 % Neut % (Auto) 54.8 % Lymph % (Auto) 37.2 % [place] % (Auto) 6.4 % Eos % (Auto) 1.3 % Baso % (Auto) 0.2 % Neut # (Auto) 5.09 (1.4-6.5) K/uL Lymph # (Auto) 3.45 H (1.2-3.4) K/uL [place] # (Auto) 0.59 (0.11-0.59) K/uL Eos # (Auto) 0.12 (0-0.5) K/uL Baso # (Auto) 0.02 (0-0.2) K/uL Immature Gran # (Auto) 0.01 (0.00-0.02) K/uL PT 10.5 (9.0-12.0) Seconds INR 1.0 (0.9-1.1) APTT 21.4 (21.0-31.0) Seconds PTT Ratio 0.8 D-Dimer 2200 H* (0-500) ug/L FEU Sodium 145 (136-145) mmol/L Potassium 4.2 (3.5-5.1) mmol/L Chloride 117 H (98-107) mmol/L Carbon Dioxide 23 (21-32) mmol/L Anion Gap 5.0 (3-11) BUN 18 (7-18) mg/dl Creatinine 1.02 (0.6-1.2) mg/dl Est Cr Clr Drug Dosing Not Reportable Est GFR ( Amer) 71.2 ml/min Est GFR (Non-Af Amer) 61.4 ml/min BUN/Creatinine Ratio 17.7 (10-20) Glucose 113 H (70-99) mg/dl Calcium 8.6 (8.5-10.1) mg/dl Total Bilirubin 0.5 (0.2-1) mg/dl AST 37 (15-37) U/L ALT 121 H (12-78) U/L Alkaline Phosphatase 109 (45-117) U/L Troponin I < 0.015 (0-0.045) ng/ml NT-Pro-B Natriuret Pep 2767 H (0-900) pg/ml Total Protein 6.5 (6.4-8.2) gm/dl Albumin 2.9 L (3.4-5.0) gm/dl Globulin 3.6 (2.5-4.0) gm/dl Albumin/Globulin Ratio 0.8 L (0.9-2) COVID-19 Eval Order SARS-CoV-2 (PCR) (Negative) 07/01/21 07/01/21 Range/Units 15:50 15:50 WBC (4.8-10.8) K/uL RBC (4.2-5.4) M/uL Hgb (12.0-16.0) g/dL Hct (37-47) % MCV (80-100) fL MCH (25-34) pg MCHC (32-36) g/dL RDW Std Deviation (36.4-46.3) fL RDW Coeff of Majo (11.5-14.5) % Plt Count (130-400) K/uL MPV (7.4-10.4) fL Immature Gran % (Auto) % Neut % (Auto) % Lymph % (Auto) % [place] % (Auto) % Eos % (Auto) % Baso % (Auto) % Neut # (Auto) (1.4-6.5) K/uL Lymph # (Auto) (1.2-3.4) K/uL [place] # (Auto) (0.11-0.59) K/uL Eos # (Auto) (0-0.5) K/uL Baso # (Auto) (0-0.2) K/uL Immature Gran # (Auto) (0.00-0.02) K/uL PT (9.0-12.0) Seconds INR (0.9-1.1) APTT (21.0-31.0) Seconds PTT Ratio D-Dimer (0-500) ug/L FEU Sodium (136-145) mmol/L Potassium (3.5-5.1) mmol/L Chloride (98-107) mmol/L Carbon Dioxide (21-32) mmol/L Anion Gap (3-11) BUN (7-18) mg/dl Creatinine (0.6-1.2) mg/dl Est Cr Clr Drug Dosing Est GFR ( Amer) ml/min Est GFR (Non-Af Amer) ml/min BUN/Creatinine Ratio (10-20) Glucose (70-99) mg/dl Calcium (8.5-10.1) mg/dl Total Bilirubin (0.2-1) mg/dl AST (15-37) U/L ALT (12-78) U/L Alkaline Phosphatase (45-117) U/L Troponin I (0-0.045) ng/ml NT-Pro-B Natriuret Pep (0-900) pg/ml Total Protein (6.4-8.2) gm/dl Albumin (3.4-5.0) gm/dl Globulin (2.5-4.0) gm/dl Albumin/Globulin Ratio (0.9-2) COVID-19 Eval Order Covid19 at [facility] SARS-CoV-2 (PCR) NEGATIVE (Negative) Administered Medications Cyclobenzaprine HCl (Cyclobenzaprine Hcl 10 Mg Tab) 10 mg PO HS KARLA Stop: 07/31/21 21:44 Last Admin: 07/01/21 22:12 Dose: 10 mg Documented by: [id number] Discontinued Medications Albuterol (Albut/Ipratrop 3mg/0.5mg Neb 3 Ml Vial) 3 ml NEB NOW STA Stop: 07/01/21 15:34 Last Admin: 07/01/21 16:02 Dose: 3 ml Documented by: [id number] Furosemide (Furosemide 40 Mg/4 Ml Vial) 40 mg IV NOW STA Stop: 07/01/21 15:34 Last Admin: 07/01/21 15:39 Dose: 40 mg Documented by: [id number] Furosemide (Furosemide 40 Mg/4 Ml Vial) 40 mg IV NOW STA Stop: 07/01/21 17:48 Last Admin: 07/01/21 18:06 Dose: 40 mg Documented by: [id number] Ioversol (Optiray 320 125ml) 121 ml IV ONCE ONE Stop: 07/01/21 16:31 Last Admin: 07/01/21 16:32 Dose: 121 ml Documented by: [id number] Levalbuterol HCl (Levalbuterol Hcl 1.25 Mg/3 Ml Neb) 1.25 mg NEB NOW STA Stop: 07/01/21 20:34 Last Admin: 07/01/21 20:45 Dose: 1.25 mg Documented by: [id number] Methylprednisolone (Methylprednisolone 125 Mg/2 Ml Vial) 125 mg IV NOW STA Stop: 07/01/21 15:34 Last Admin: 07/01/21 15:39 Dose: 125 mg Documented by: [id number] Morphine Sulfate (Morphine Sulfate 2 Mg/Ml Carp) 2 mg IV NOW STA Stop: 07/01/21 15:34 Last Admin: 07/01/21 15:39 Dose: 2 mg Documented by: [id number] Imaging Data Radiologist's Impression: Chest X-Ray 07/01/21 14:37 XR chest 1V portable CLINICAL HISTORY: Chest Pain COMPARISON STUDY: June 19, 2021 FINDINGS: No pneumothorax. No pleural effusion. Diffuse reticular opacities which seen bilaterally are slightly worsened since prior and show interval development of patchy airspace component throughout bilateral mid to lower lungs. Cardiomediastinal silhouette is slightly enlarged. Pulmonary vasculature is obscured.. Osseous structures: Mild degenerative changes of the spine. IMPRESSION: 1. Mixed reticular and airspace opacities throughout bilateral lungs, worsening since prior could represent multifocal pneumonia and/or pulmonary edema. 2. Redemonstration of mildly enlarged cardiac silhouette. 3. The rest of findings as above. ACT 112: Negative or not required by law. The above report was generated using voice recognition software. It may contain grammatical, syntax or spelling errors. Electronically signed by: Ju Low DO 07/01/2021 3:09 PM Chest CTA 07/01/21 16:14 CT angio chest PE protocol CT DOSE: 693.07 mGy.cm HISTORY: 55 years-old Female with SOB, +dimer. Acute shortness of breath with elevated d-dimer TECHNIQUE: Multiple CTA images of the chest were obtained after the intravenous administration of 121 ml Optiray. Coronal and sagittal MIPS were obtained from the axial data set and were submitted for review. All measurements were obtained according to NASCET criteria. A dose lowering technique was utilized adhering to the principles of ALARA. COMPARISON: Chest radiograph of same day, CTA chest 06/19/2021 FINDINGS: CTA: Mild to moderate cardiomegaly. No pericardial effusion. Mild coronary artery calcifications. There is no thoracic aortic aneurysm. The thoracic aorta is suboptimally assessed secondary to contrast bolus timing. The subsegmental branches of the pulmonary arterial tree are not well visualized secondary to co ntrast bolus timing and respiratory motion artifact. No pulmonary emboli are identified. CT CHEST: Heterogeneous thyroid with 1.6 cm left-sided thyroid nodule, unchanged. Mildly enlarged subcarinal and right hilar lymph nodes measure up to 12 mm. Prevascular lymph nodes measure up to 10 mm. These have mildly increased in size from comparison and are likely reactive. Small left and moderate right pleural effusions. No pneumothorax. Intralobular septal thickening with dependent right greater than left bibasilar consolidative and groundglass densities. Mild subpleural bleb formation of the lung apices. Minimal tracheobronchial secretions. No acute process of the imaged upper abdomen. Unremarkable soft tissues. No acute fracture. Degenerative changes of the shoulders and spine. IMPRESSION: 1. Cardiomegaly with pulmonary edema, small left and moderate right pleural effusions. 2. Dependent right greater than left bibasilar opacities are suggestive of atelectasis. Pneumonia could appear similarly however is considered less likely. 3. Mild mediastinal and hilar adenopathy, likely reactive. ACT 112: Negative or not required by law. The above report was generated using voice recognition software. It may contain grammatical, syntax or spelling errors. Electronically signed by: Errol Cruz M.D. 07/01/2021 4:47 PM Discharge Plan Visit Data Chief Complaint: Chest Pain Stated Complaint: CHEST PAIN ED Provider: Alex Cobb Discharge Problem: Chest pain, SOB (shortness of breath) Patient Disposition: Admitted As Inpatient Discharge Instructions Interventions: ED Discharge Assessment Last Done: 07/01/21 20:58
[2021-07-01 15:42] LABS: Basophils # (auto) 0.02 K/uL (0-0.2); Basophils % (auto) 0.2 %; Eosinophils # (auto) 0.12 K/uL (0-0.5); Eosinophils % (auto) 1.3 %; Hematocrit (blood only) 40.3 % (37-47); Immature Granulocytes # (auto) 0.01 K/uL (0.00-0.02); Immature Granulocytes % (auto) 0.1 %; Lymphocytes # (auto) 3.45 K/uL (1.2-3.4); Lymphocytes % (auto) 37.2 %; Mean Corpuscular Hemoglobin 31.3 pg (25-34); Mean Corpuscular Hgb Conc 32.3 g/dL (32-36); Mean Corpuscular Volume 97.1 fL (80-100); Mean Platelet Volume 11.1 fL (7.4-10.4); Monocytes # (auto) 0.59 K/uL (0.11-0.59); Monocytes % (auto) 6.4 %; Neutrophils # (auto) 5.09 K/uL (1.4-6.5); Neutrophils % (auto) 54.8 %; Platelet Count 235 K/uL (130-400); RDW Coefficient of Variation 15.4 % (11.5-14.5); RDW Standard Deviation 53.6 fL (36.4-46.3); Red Blood Count 4.15 M/uL (4.2-5.4); White Blood Count 9.28 K/uL (4.8-10.8)
[2021-07-01 15:58] LABS: Alanine Aminotransferase 121 U/L (12-78); Albumin Level 2.9 gm/dl (3.4-5.0); Aspartate Aminotransferase 37 U/L (15-37); BUN Creatinine Ratio 17.7 (10-20); Blood Urea Nitrogen 18 mg/dl (7-18); Calcium 8.6 mg/dl (8.5-10.1); Carbon Dioxide 23 mmol/L (21-32); Chloride 117 mmol/L (98-107); Est GFR (African American) 71.2 ml/min; Est GFR (Non-African American) 61.4 ml/min; Glucose 113 mg/dl (70-99); Potassium 4.2 mmol/L (3.5-5.1); Sodium 145 mmol/L (136-145)
[2021-07-01 16:02] LABS: Partial Thromboplastin Ratio 0.8; Partial Thromboplastin Time 21.4 Seconds (21.0-31.0); Prothrombin Time 10.5 Seconds (9.0-12.0)
[2021-07-01 16:03] LABS: Albumin Globulin Ratio 0.8 (0.9-2); Alkaline Phosphatase 109 U/L (45-117); Bilirubin,Total 0.5 mg/dl (0.2-1); Globulin 3.6 gm/dl (2.5-4.0); NT Pro B Type Natriuretic Pept 2767 pg/ml (0-900); Total Protein 6.5 gm/dl (6.4-8.2); Troponin I < 0.015 ng/ml (0-0.045)
[2021-07-01 16:12] LABS: D Dimer 2200 ug/L FEU (0-500)
[2021-07-01] MEDS ORDERED: OPTIRAY 320 125ml IV ONE (16:30)
--- NOTE | 2021-07-01 16:49 | CT Scan Report ---
CT angio chest PE protocol CT DOSE: 693.07 mGy.cm HISTORY: 55 years-old Female with SOB, +dimer. Acute shortness of breath with elevated d-dimer TECHNIQUE: Multiple CTA images of the chest were obtained after the intravenous administration of 121 ml Optiray. Coronal and sagittal MIPS were obtained from the axial data set and were submitted for review. All measurements were obtained according to NASCET criteria. A dose lowering technique was u tilized adhering to the principles of ALARA. COMPARISON: Chest radiograph of same day, CTA chest 06/19/2021 FINDINGS: CTA: Mild to moderate cardiomegaly. No pericardial effusion. Mild coronary artery calcifications. There is no thoracic aortic aneurysm. The thoracic aorta is suboptimally assessed secondary to contrast bolus timing. The subsegmental branches of the pulmonary arterial tree are not well visualized secondary t o contrast bolus timing and respiratory motion artifact. No pulmonary emboli are identified. CT CHEST: Heterogeneous thyroid with 1.6 cm left-sided thyroid nodule, unchanged. Mildly enlarged subcarinal an d right hilar lymph nodes measure up to 12 mm. Prevascular lymph nodes measure up to 10 mm. These hav e mildly increased in size from comparison and are likely reactive. Small left and moderate right ple ural effusions. No pneumothorax. Intralobular septal thickening with dependent right greater than lef t bibasilar consolidative and groundglass densities. Mild subpleural bleb formation of the lung apice s. Minimal tracheobronchial secretions. No acute process of the imaged upper abdomen. Unremarkable soft tissues. No acute fracture. Degenerat aliza changes of the shoulders and spine. IMPRESSION: 1. Cardiomegaly with pulmonary edema, small left and moderate right pleural effusions. 2. Dependent right greater than left bibasilar opacities are suggestive of atelectasis. Pneumonia cou ld appear similarly however is considered less likely. 3. Mild mediastinal and hilar adenopathy, likely reactive. ACT 112: Negative or not required by law. The above report was generated using voice recognition software. It may contain grammatical, syntax o r spelling errors. Electronically signed by: Errol Cruz M.D. 07/01/2021 4:47 PM
--- NOTE | 2021-07-01 17:45 | History & Physical Report ---
Date of Service July 01, 2021 Assessment & Plan (1) SOB (shortness of breath): Plan: Patient is being admitted with symptoms of SOB on exertion. Patient has elevated BNP with findings of pulmonary edema. This is likely acute diastolic Congestive heart failure. Patient will receive an additional 40 mg of lasix. Received lasix IV (2) Chronic obstructive pulmonary disease: Plan: continue neb treatments (3) Hypertension: Plan: BP at goal. will monitor. (4) Hyperlipidemia: Plan: LDL at goal. continue lifestyle modifications. will recheck in AM (5) GERD (gastroesophageal reflux disease): Plan: symptoms appear controlled. (6) Diabetes mellitus, type 2: Plan: A1C is elevated. will recheck. (7) Morbid obesity due to excess calories: Plan: recommend lifestyle modfication History of Present Illness Chief Complaint: SOB. Primary Care Provider: Nita Torres MD 55 yo female reports feeling SOB for past 2 weeks. Symptoms ahve been getting worse gradually over past 2 weeks. Patient reports more SOB when ambulating. Patient prefers not to lie flat. SOB was accompanied by midsternum pleuritic moderately intense sharp chest pain. Due to worsening SOB patient came to the ER. Allergies Allergy/AdvReac Type Severity Reaction Status Date / Time No Known Allergies Allergy Verified 06/21/21 12:50 Home Medications Medication Instructions Recorded Confirmed Type albuterol sulfate 0.63 mg/3 mL 0.63 mg CONTINUOUS NEBULIZATION UD 06/19/21 07/01/21 History solution for nebulization PRN albuterol sulfate 90 mcg/actuation 2 puff INHALATION Q6 PRN 06/19/21 07/01/21 History aerosol inhaler mometasone-formoterol HFA 200 2 puff INHALATION BID 06/19/21 07/01/21 History mcg-5 mcg/actuation aerosol inhaler (Dulera) nitroglycerin 0.4 mg sublingual 0.4 mg SUBLINGUAL UD PRN 06/19/21 07/01/21 History tablet (Nitrostat) cyclobenzaprine 10 mg tablet 10 mg PO HS #30 tab 06/21/21 07/01/21 Rx diclofenac sodium 1 % topical gel 2 g TOPICAL QID PRN 07/01/21 07/01/21 History ipratropium bromide 17 2 puff INHALATION TID 07/01/21 07/01/21 History mcg/actuation HFA aerosol inhaler (Atrovent HFA) Past Med/Surg History Medical History Active asthma Arthritis of knee CHF (congestive heart failure) Chronic low back pain CSF leak Degeneration of cervical intervertebral disc Dizziness External hemorrhoids Frequent falls GERD (gastroesophageal reflux disease) Hemiplegic migraine History of tobacco abuse Left-sided chest pain Morbid obesity due to excess calories Obstructive sleep apnea Severe asthma with acute exacerbation TIA (transient ischemic attack) Urinary incontinence Vertebral artery stenosis Vitamin D deficiency Surgical History Facial fracture (2014) WITH RECONSTRUCTION History of bilateral tubal ligation History of cardiac cath X2 STENTS - (~2010, IN [place], [place]). NO STENTS - ([facility] @ ~2014) History of colonoscopy History of esophagogastroduodenoscopy (EGD) History of heart artery stent X2 STENTS (2010) UNSURE OF KIND. NO STENT CARDS PER PT. History of mandibular surgery S/P left knee arthroscopy S/p tibial fracture open treatment of Fx with plate/screws, Left leg Status post right foot surgery Family History Mother Breast cancer, Onset Age: 64 Type 2 diabetes mellitus Father Diabetes Coronary heart disease Type 2 diabetes mellitus Myocardial infarction, Onset Age: 52 Family/Other Hypertension sibling Denies family history of Ovarian cancer Social History Smoking Status: Former smoker Tobacco Type: Cigarettes Years Smoked: 40; Second Hand Exposure: Yes; Do You Dip or Chew Tobacco: No; Tobacco Cessation Education Requested by Patient: No Hx Alcohol Use: No Hx Substance Use: No Preferred Language: Faroese Communication Ability: Effective Visual Impairment: No Limitations Roadway Technician Required: No Beliefs That Will Affect Care: None marital status: Current Living Situation: Spouse Other Information That Helps Us Care for You: No Feels Safe at Home: Yes Safety Concerns: Feels Safe At This Time Assistive Devices: CPAP Review of Systems Review of Systems: All systems reviewed & are unremarkable except as noted in HPI & below Physical Exam Constitutional: WD/WN, vitals as above Eyes: PERRL, conjunctivae normal, anicteric sclerae ENMT: external ear and nose normal, oropharynx normal Neck: trachea midline, no thyromegaly Respiratory: + respiratory distress, + labored breathing and + uses accessory muscles Auscultation: + wheezes (bilaterally) Cardiovascular: Rate/Rhythm: + tachycardic Heart Sounds: normal S1 and normal S2 Gastrointestinal (Abdomen): normal bowel sounds, soft, nontender, no hepatosplenomegaly Musculoskeletal: no cyanosis or clubbing, extremities motor strength 5/5 Skin: no rashes, warm and dry Neurologic: PERRL, EOMI, accommodation nl, no face palsy, no dysarthria Psychiatric: A+Ox3, euthymic affect Lymphatic: no cervical or axillary lymphadenopathy Results & Data Results & Data ([facility]) Vital Signs (Past 12 Hours) Vital Signs Temp Pulse Pulse Resp BP Pulse Ox 07/01/21 17:30 103 H 23 124/85 98 07/01/21 17:00 99 H 21 122/89 100 07/01/21 16:43 101 H 30 H 126/90 99 07/01/21 16:02 102 H 101 H 26 H 100 07/01/21 15:30 103 H 22 145/104 H 100 07/01/21 15:00 102 H 21 126/82 100 07/01/21 14:30 101 H 29 H 143/89 H 99 07/01/21 14:00 99 H 20 127/71 97 07/01/21 13:44 37.0 C 101 H 18 131/79 97 PG Care Time/CCT Total # of Minutes Spent Total Time Spent with Patient: Total time spent is greater than 50% in coordination of care (as documented) at patient's floor/unit and/or counseling patient: Coding Level of Care Code 36577 Initial Inpt Care Lvl 3 Diagnoses SOB (shortness of breath) R06.02 Chronic obstructive pulmonary disease J44.1 COPD type: COPD with acute exacerbation Hypertension I10 Hypertension type: essential hypertension Hyperlipidemia E78.5 Hyperlipidemia type: unspecified GERD (gastroesophageal reflux disease) K21.9 Esophagitis presence: esophagitis presence not specified Diabetes mellitus, type 2 E11.65; Z79.4 Diabetes mellitus retirement insulin use: with retirement use Diabetes mellitus complication status: with hyperglycemia Morbid obesity due to excess calories E66.01 (1) Chronic obstructive pulmonary disease COPD type: COPD with acute exacerbation Qualified Code(s): J44.1 - Chronic obstructive pulmonary disease with (acute) exacerbation (2) Hypertension Hypertension type: essential hypertension Qualified Code(s): I10 - Essential (primary) hypertension (3) Hyperlipidemia Hyperlipidemia type: unspecified Qualified Code(s): E78.5 - Hyperlipidemia, unspecified (4) GERD (gastroesophageal reflux disease) Esophagitis presence: esophagitis presence not specified Qualified Code(s): K21.9 - Gastro-esophageal reflux disease without esophagitis (5) Diabetes mellitus, type 2 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
[2021-07-01] MEDS ORDERED: ACETAMINOPHEN 325 MG TAB PO PRN (18:00)
[2021-07-01] MEDS ORDERED: LEVALBUTEROL HCL 1.25 MG/3 ML NEB NEB STA (20:33)
[2021-07-01] MEDS: CYCLOBENZAPRINE HCL 10 MG TAB PO SCH (22:12)
[2021-07-02] MEDS: LEVALBUTEROL HCL 1.25 MG/3 ML NEB NEB SCH ×4 (01:09→20:45)
[2021-07-02 05:48] LABS: Hematocrit (blood only) 40.2 % (37-47); Hemoglobin 12.7 g/dL (12.0-16.0); Mean Corpuscular Hemoglobin 30.3 pg (25-34); Mean Corpuscular Hgb Conc 31.6 g/dL (32-36); Mean Corpuscular Volume 95.9 fL (80-100); Mean Platelet Volume 10.9 fL (7.4-10.4); Platelet Count 248 K/uL (130-400); RDW Coefficient of Variation 15.1 % (11.5-14.5); RDW Standard Deviation 52.1 fL (36.4-46.3); Red Blood Count 4.19 M/uL (4.2-5.4); White Blood Count 11.06 K/uL (4.8-10.8)
[2021-07-02 06:18] LABS: BUN Creatinine Ratio 18.8 (10-20); Calcium 8.4 mg/dl (8.5-10.1); Creatinine Clr Calc Pharmacy 75.8 ml/min; Est GFR (African American) 70.4 ml/min; Est GFR (Non-African American) 60.7 ml/min; Potassium 4.1 mmol/L (3.5-5.1)
[2021-07-02] MEDS: ASPIRIN 81 MG ECTAB PO SCH (09:34)
[2021-07-02] MEDS: FLUTICASONE/VILANTEROL 200/25MCG 14 PUFFS/INHALER INH SCH (09:35)
[2021-07-02] MEDS: FUROSEMIDE 40 MG in SYRINGE 0 ML IV SCH (09:36)
[2021-07-02] MEDS ORDERED: PHARMACY GLYCEMIC MGMT CONSULT PRN (09:54)
--- NOTE | 2021-07-02 10:11 | Pharmacy Report ---
Pharmacy Glycemic Short Note 2 - Date of Service July 02, 2021 - Glycemic Short BSG Results (Last 24 hours): 07/01/21 07/02/21 07/02/21 15:26 05:34 08:20 Glucose 113 H 247 H POC Glucose 215 H OUTPATIENT ANTIDIABETIC REGIMEN: * n/a * A1c = 8.3% on 08/09/20 {outdated} re-ordered for 07/02/21 ASSESSMENT: * 55yo T2DM female- no outpatient antidiabetic medications. * Pt with hyperglycemia secondary to T2DM + steroids received in ED yesterday. * Will initiate weight based/moderate stress dosing of SQ basal bolus insulin regimen and titrate based on BSG trends. PLAN FOR INPATIENT GLYCEMIC CONTROL: * Basal insulin * Lantus 36 units (~0.33 units/kg) SQ x 1 dose now. Will try to keep Lantus Q24hrs if possible to ease transition to outpatient if insulin needs s tarted at DC based on A1c * Bolus insulin * NovoLog per scale ACHS or Q6hrs while NPO * Goal Range: Low 110 mg/dL - High 140 mg/dL * Correction Factor: 15 mg/dL/unit * Nutritional / Prandial insulin per carb ratio of 1 unit per 5 grams CHO consumed PLAN FOR DISCHARGE: * TBD once A1c results
--- NOTE | 2021-07-02 10:12 | Hospitalist Progress Note ---
Date of Service July 02, 2021 Assessment & Plan (1) SOB (shortness of breath): Plan: Patient is being admitted with symptoms of SOB on exertion. Patient has elevated BNP with findings of pulmonary edema. This is likely acute diastolic Congestive heart failure. Patient appears to have responded to80 mg of lasix the day prior. She is able to lie flat and breath better. Her lungs also appear to be cleaer. Will continue 40 mg of lasix BID for another day. will obtain echocardiogram. concern over fact that patient is non compliant with her diabetes medication. concern over possiblilty of systolic dysfunction. (2) Chronic obstructive pulmonary disease: Plan: continue neb treatments (3) Hypertension: Plan: BP at goal. will monitor. (4) Hyperlipidemia: Plan: LDL at goal. continue lifestyle modifications. will recheck in AM (5) GERD (gastroesophageal reflux disease): Plan: symptoms appear controlled. (6) Diabetes mellitus, type 2: Plan: Patient has long standing diabetes type 2. Patient reports she is non compliant with her medicatins due to diarrhea from her metformin and not liking needles. She reports she has not tried a long acting metformin, nor did she take it on a full stomach. This may help limit her diarrhea. Will repeat a1c, consult diabetes education and glycemic control. Had extensive talk with patient about risks of insulin. (7) Morbid obesity due to excess calories: Plan: recommend lifestyle modfication Admission and Anticipated Discharge Date Admission Date: July 01, 2021 Subjective 55 yo female reports feeling better this AM. She is still fatigued, but reports breathing better. She states she is diabetic but has not been taking her insulin due to not liking her insulin. Review of Systems Review of Systems: All systems reviewed & are unremarkable except as noted in HPI & below Physical Exam Physical Exam: Constitutional: WD/WN, vitals as above Eyes: PERRL, conjunctivae normal, anicteric sclerae ENMT: external ear and nose normal, oropharynx normal Neck: trachea midline, no thyromegaly Respiratory: No longer in respiratory distress Cardiovascular: Rate/Rhythm: RRR, Heart Sounds: normal S1 and normal S2 Gastrointestinal (Abdomen): normal bowel sounds, soft, nontender, no hepatosplenomegaly Musculoskeletal: no cyanosis or clubbing, extremities motor strength 5/5 Skin: no rashes, warm and dry Neurologic: PERRL, EOMI, accommodation nl, no face palsy, no dysarthria Psychiatric: A+Ox3, euthymic affect Lymphatic: no cervical or axillary lymphadenopathy Results & Data Results & Data ([facility]) Vital Signs (Past 12 Hours) Vital Signs Temp Pulse Pulse Pulse Pulse Resp BP 07/02/21 08:00 36.6 C 70 97 H 20 134/87 07/02/21 07:59 70 18 07/02/21 02:49 82 18 07/02/21 01:12 89 22 07/01/21 23:28 72 20 Pulse Ox 07/02/21 08:00 97 07/02/21 07:59 97 07/02/21 02:49 99 07/02/21 01:12 97 07/01/21 23:28 94 PG Care Time/CCT Total # of Minutes Spent Total Time Spent with Patient: Total time spent is greater than 50% in coordination of care (as documented) at patient's floor/unit and/or counseling patient: Coding Level of Care Code 58499 Subseq Hosp Care Lvl 3 Diagnoses SOB (shortness of breath) R06.02 Chronic obstructive pulmonary disease J44.1 COPD type: COPD with acute exacerbation Hypertension I10 Hypertension type: essential hypertension Hyperlipidemia E78.5 Hyperlipidemia type: unspecified GERD (gastroesophageal reflux disease) K21.9 Esophagitis presence: esophagitis presence not specified Diabetes mellitus, type 2 E11.65; Z79.4 Diabetes mellitus terminal supervisor insulin use: with terminal supervisor use Diabetes mellitus complication status: with hyperglycemia Morbid obesity due to excess calories E66.01 Time Spent (min) 35 (1) Chronic obstructive pulmonary disease COPD type: COPD with acute exacerbation Qualified Code(s): J44.1 - Chronic obstructive pulmonary disease with (acute) exacerbation (2) Hypertension Hypertension type: essential hypertension Qualified Code(s): I10 - Essential (primary) hypertension (3) Hyperlipidemia Hyperlipidemia type: unspecified Qualified Code(s): E78.5 - Hyperlipidemia, unspecified (4) GERD (gastroesophageal reflux disease) Esophagitis presence: esophagitis presence not specified Qualified Code(s): K21.9 - Gastro-esophageal reflux disease without esophagitis (5) Diabetes mellitus, type 2 Diabetes mellitus group home insulin use: with terminal supervisor use Diabetes mellitus complication status: with hyperglycemia Qualified Code(s): E11.65 - Type 2 diabetes mellitus with hyperglycemia; Z79.4 - manager terminal (current) use of insulin
[2021-07-02] MEDS ORDERED: INSULIN GLARGINE SOLOSTAR 100 UNITS/ML 3 ML PEN SC ONE (10:15)
[2021-07-02] MEDS ORDERED: CARBOHYDRATES FOR HYPOGLYCEMIA PO PRN (10:15)
[2021-07-02] MEDS ORDERED: DEXTROSE 50% 50 ML SYRINGE IV PRN (10:15)
[2021-07-02] MEDS ORDERED: GLUCOSE 10 TABS/TUBE PO PRN (10:15)
[2021-07-02] MEDS ORDERED: GLUCAGON FOR INJ 1 MG VIAL IM PRN (10:15)
[2021-07-02] MEDS ORDERED: GLUCOSE 40% GEL 15 GM TUBE PO PRN (10:15)
[2021-07-02 10:49] LABS: Estimated Average Glucose 157 mg/dl; Hemoglobin A1C 7.1 % (4.5-5.6)
--- NOTE | 2021-07-02 13:13 | Cardiology Consultation ---
Date of Consultation July 02, 2021 Assessment & Plan (1) Acute on chronic diastolic (congestive) heart failure: (2) Morbid obesity due to excess calories: (3) Chest pain: (4) Chronic obstructive pulmonary disease: (5) Obstructive sleep apnea on CPAP: Acute on chronic diastolic CHF: Patient presented with shortness of breath, edema, orthopnea, and chest tightness. Symptoms likely multi-factorial. CXR consistent with pulmonary edema. BNP is elevated. She is currently being treated with Lasix 40 mg IV. Documented urine output is minimal but patient reports good response. Her weight is trending down. If accurate, she is below her typical dry weight according to the chart. Would recommend daily STANDING weights moving forward. Continue strict I&Os while hospitalized. Low sodium diet, less than 2,000 mg daily. Patient would benefit from ongoing education. Advised that she avoid processed meats once she returns home. She seems receptive to this. Kidney function and electrolytes are stable. Would recommend continued diuresis with a goal of 1-2 L/day until creatinine bumps. Would increase Lasix to BID dosing if not having significant output by tomorrow. Chest pain: EKG unchanged. Troponin negative. She had a cardiac catheterization in 2014 without evidence of disease. Negative dobutamine stress test in 2019. Asthma/COPD: Continue inhalers. Follows with Dr. Slade. PFTs and follow up recommended. Not evaluated since 08/2020. Recommend outpatient follow up to opti uriel treatment options. Suspected GERD like symptoms and referred to GI. Unclear if she followed through. Morbid obesity: Likely a contributing factor to her symptoms. Recommend weight loss with diet and exercise as tolerated. SMITA: Encourage CPAP compliance. Disposition: Recommend outpatient follow up with the heart failiure program. Supervising Physician Co-Signing Physician Notes I saw and examined the patient at the bedside and agree with the documentation by Nita Moon. Briefly, the patient has a long history of asthma and coronary disease reportedly having undergone percutaneous intervention to the left circumflex in 2011. More recent angiography did not reveal any significant coronary disease. She presented with evidence of pulmonary vascular congestion. She did undergo administration of diuretics with what appears to be a good diuresis. However, her symptoms have not improved. I would agree with continuing daily diuresis, but I am skeptical that all of her symptoms are related to pulmonary vascular congestion. On examination she had significant wheezing and likely has an element of bronchospasm as well. She has mildly reduced LV systolic function. When her clinical condition improves institution of beta-blockade would be advisable. Metoprolol would be preferred over carvedilol. Her chest wall pain is longstanding in nature and certainly not ischemic in etiology. In fact, this may be more musculoskeletal. The positional nature of her symptoms suggests pericardial or pleural irritation, but she did undergo an outpatient treatment of steroids without improvement. Unclear etiology overall. I will be away from the hospital for the next 2 days. For any urgent questions please contact the on-call security associate Dr. Rodas. History of Present Illness Reason for Consultation: CHF Requesting Physician: Cresencio Attending Physician: Link Dupont History of Present Illness Deb is a 55-year-old obese female with a history of CAD s/p ? LCx Stents x 2 in 2011, Long-Standing Type 2 Diabetes Mellitus, Dyslipidemia, COPD, GERD, CHF, Atypical Chest Pain, Hemiplegic Migraine Headaches, Depression, Anxiety, and PTSD. She has seen [facility]le[facility] in the past. Recent cardiac studies: 1. 10/28/19 Echo: LV systolic function is normal. No RWMA. Mild concentric LVH. EF 50-55%. Mild-moderate MR. Mild TR. 2. 07/02/21 Echo: Negative DSE 12/06/2018. CARDIAC CATHETERIZATION 04/03/2015: -- LMCA -- Angiographically normal. -- LAD -- Angiographically normal. -- LCx -- Co-dominant vessel, normal with possible distal stent - patent. -- RCA -- Co-dominant. Angiographically normal. Patient reports a history of diastolic heart failure. She has been hospitalized in the past for heart failure while living in [place] but it's been several years. Her most recent hospitalization was in 2019 for atypical chest pain. She routinely follows with [facility] pulmonology for asthma and SMITA management. She wears a CPAP. She does not do daily weights at home. She does not routinely require diuretic therapy. She does not use added salt but admits to high sodium intake ([place], sausage almost daily). Patient was evaluated by her PCP on 06/21/21 for chest wall pain. Patient presented on 07/01/21 with chest pain, shortness of breath, and wheezing. Patient states that since her COVID vaccine in she's been having chest tightness and shortness of breath. She feels this is mostly positional and is worse with movement. It does not radiate. She tried Nitro at home without relief. She states it feels different that her typical asthma symptoms. She has been having worsening orthopnea. She does not weigh herself at home. EKG without acute changes. CXR with pulmonary edema and atypical infiltrate. BNP was elevated at 2k. Troponin was unremarkable. CT negative for PE. She was treated with Lasix, Duoneb, and Solumedrol in the ED. She reports she's feeling slightly improved today. She continues to have intermittent chest pain. She's currently receiving Lasix 40 mg IV. She's had 2 doses so far. She reports increased urine output although her documented output does not reflect as such. She does report at least one unmeasured void during her echocardiogram. Her weight is down 10 lb from admission. This is a bed scale weight so accuracy is questionable. Allergies Allergy/AdvReac Type Severity Reaction Status Date / Time No Known Allergies Allergy Verified 06/21/21 12:50 Home Medications Medication Instructions Recorded Confirmed Type albuterol sulfate 0.63 mg/3 mL 0.63 mg CONTINUOUS NEBULIZATION UD 06/19/21 07/01/21 History solution for nebulization PRN albuterol sulfate 90 mcg/actuation 2 puff INHALATION Q6 PRN 06/19/21 07/01/21 History aerosol inhaler mometasone-formoterol HFA 200 2 puff INHALATION BID 06/19/21 07/01/21 History mcg-5 mcg/actuation aerosol inhaler (Dulera) nitroglycerin 0.4 mg sublingual 0.4 mg SUBLINGUAL UD PRN 06/19/21 07/01/21 History tablet (Nitrostat) cyclobenzaprine 10 mg tablet 10 mg PO HS #30 tab 06/21/21 07/01/21 Rx diclofenac sodium 1 % topical gel 2 g TOPICAL QID PRN 07/01/21 07/01/21 History ipratropium bromide 17 2 puff INHALATION TID 07/01/21 07/01/21 History mcg/actuation HFA aerosol inhaler (Atrovent HFA) Patient History Medical History Active asthma Arthritis of knee CHF (congestive heart failure) Chronic low back pain CSF leak Degeneration of cervical intervertebral disc Dizziness External hemorrhoids Frequent falls GERD (gastroesophageal reflux disease) Hemiplegic migraine History of tobacco abuse Left-sided chest pain Morbid obesity due to excess calories Obstructive sleep apnea Severe asthma with acute exacerbation TIA (transient ischemic attack) Urinary incontinence Vertebral artery stenosis Vitamin D deficiency Surgical History Facial fracture (2014) WITH RECONSTRUCTION History of bilateral tubal ligation History of cardiac cath X2 STENTS - (~2010, IN [place], [place]). NO STENTS - ([facility] @ ~2014) History of colonoscopy History of esophagogastroduodenoscopy (EGD) History of heart artery stent X2 STENTS (2010) UNSURE OF KIND. NO STENT CARDS PER PT. History of mandibular surgery S/P left knee arthroscopy S/p tibial fracture open treatment of Fx with plate/screws, Left leg Status post right foot surgery Family History Mother Breast cancer, Onset Age: 64 Type 2 diabetes mellitus Father Diabetes Coronary heart disease Type 2 diabetes mellitus Myocardial infarction, Onset Age: 52 Family/Other Hypertension sibling Denies family history of Ovarian cancer Social History Smoking Status: Former smoker Tobacco Type: Cigarettes Years Smoked: 40; Second Hand Exposure: Yes; Hx Alcohol Use: No Hx Substance Use: No Preferred Language: Lithuanian Communication Ability: Effective Visual Impairment: No Limitations Case Liner Required: No Beliefs That Will Affect Care: None marital status: Current Living Situation: Spouse Feels Safe at Home: Yes Assistive Devices: None Physical Exam Physical Exam: General: Sitting at the bedside. Appears comfortable, NAD. Room air. HEENT: Head is atraumatic, normocephalic. EOMs intact. Sclerae anicteric. Facies symmetric. No perioral cyanosis. Neck: No JVD. Carotid upstrokes +2 bilaterally without bruits. JVP is at the level of the clavicle sitting upright. Chest and Lungs: Normal respiratory effort. She has scattered expiratory wheezes. CVS: S1 and S2 are regular without murmurs, gallops, or rubs. PMI is nonpalpable. No lifts, heaves, or thrills. No abdominal aortic or renal bruits. Abdominal Exam: Bowel sounds present. No masses, organomegaly, or tenderness. Extremities: No clubbing, cyanosis. Trace lower extremity edema. Intact posterior tibial and radial pulses bilaterally. Neurologic Exam: Patient is awake, alert, and oriented. Pleasant and cooperative. Answers questions appropriately. Speech is clear. Normal movement in all 4 extremities. Results & Data ([facility]) Vital Signs (Past 12 Hours) Vital Signs Temp Pulse Pulse Pulse Pulse Resp BP 07/02/21 08:00 97.9 F 70 97 H 20 134/87 07/02/21 07:59 70 18 07/02/21 02:49 82 18 07/02/21 01:12 89 22 Pulse Ox 07/02/21 08:00 97 07/02/21 07:59 97 07/02/21 02:49 99 07/02/21 01:12 97 PG Care Time/CCT Total # of Minutes Spent Total Time Spent with Patient: Total time spent is greater than 50% in coordination of care (as documented) at patient's floor/unit and/or counseling patient: Coding Level of Care Code 08873 Inpt Consult Level 4 Diagnoses Acute on chronic diastolic (congestive) heart failure I50.33 Morbid obesity due to excess calories E66.01 Chest pain R07.2 Chest pain type: precordial pain Chronic obstructive pulmonary disease J44.1 COPD type: COPD with acute exacerbation Obstructive sleep apnea on CPAP G47.33; Z99.89 (1) Chronic obstructive pulmonary disease COPD type: COPD with acute exacerbation Qualified Code(s): J44.1 - Chronic obstructive pulmonary disease with (acute) exacerbation (2) Chest pain Chest pain type: precordial pain Qualified Code(s): R07.2 - Precordial pain
[2021-07-02] MEDS: INSULIN ASPART 100 UNITS/ML 3 ML PEN SC SCH ×3 (13:21→20:51)
--- NOTE | 2021-07-02 13:35 | XCELERA ---
[id number]
--- NOTE | 2021-07-02 15:14 | Electrocardiogram Report ---
Test Reason : Blood Pressure : / mmHG Vent. Rate : 098 BPM Atrial Rate : 098 BPM P-R Int : 152 ms QRS Dur : 078 ms QT Int : 378 ms P-R-T Axes : 024 008 045 degrees QTc Int : 482 ms Normal sinus rhythm Possible Left atrial enlargement Left ventricular hypertrophy Abnormal ECG When compared with ECG of 19-JUN-2021 16:00, No significant change was found Confirmed by Kwaku Dominguez ([id number]) on 07/02/2021 3:14:16 PM Referred By: Confirmed By:Syd Dominguez
--- NOTE | 2021-07-02 18:06 | Electrocardiogram Report ---
Test Reason : Blood Pressure : / mmHG Vent. Rate : 092 BPM Atrial Rate : 092 BPM P-R Int : 158 ms QRS Dur : 082 ms QT Int : 388 ms P-R-T Axes : 035 012 047 degrees QTc Int : 479 ms Normal sinus rhythm Minimal voltage criteria for LVH, may be normal variant Borderline ECG When compared with ECG of 01-JUL-2021 13:48, No significant change was found Confirmed by Kwaku Dominguez ([id number]) on 07/02/2021 6:06:16 PM Referred By: REFERRED SELF Confirmed By:Syd Dominguez
--- NOTE | 2021-07-02 20:40 | Hospitalist Progress Note ---
Date of Service July 02, 2021 Assessment & Plan (1) SOB (shortness of breath): Plan: Patient is being admitted with symptoms of SOB on exertion. Patient has elevated BNP with findings of pulmonary edema. This is likely acute diastolic Congestive heart failure. Patient appears to have responded to80 mg of lasix the day prior. She is able to lie flat and breath better. Her lungs also appear to be cleaer. Will continue 40 mg of lasix BID for another day. will obtain echocardiogram. concern over fact that patient is non compliant with her diabetes medication. concern over possiblilty of systolic dysfunction. (2) Chronic obstructive pulmonary disease: Plan: continue neb treatments (3) Hypertension: Plan: BP at goal. will monitor. (4) Hyperlipidemia: Plan: LDL at goal. continue lifestyle modifications. will recheck in AM (5) GERD (gastroesophageal reflux disease): Plan: symptoms appear controlled. (6) Diabetes mellitus, type 2: Plan: Patient has long standing diabetes type 2. Patient reports she is non compliant with her medicatins due to diarrhea from her metformin and not liking needles. She reports she has not tried a long acting metformin, nor did she take it on a full stomach. This may help limit her diarrhea. Will repeat a1c, consult diabetes education and glycemic control. Had extensive talk with patient about risks of insulin. (7) Morbid obesity due to excess calories: Plan: recommend lifestyle modfication Admission and Anticipated Discharge Date Admission Date: July 01, 2021 Results & Data Results & Data ([facility]) Vital Signs (Past 12 Hours) Vital Signs Temp Pulse Resp BP Pulse Ox 07/02/21 16:00 36.3 C L 94 H 18 119/78 93 07/02/21 13:44 80 20 94 07/02/21 13:24 91 H 22 124/77 94 PG Care Time/CCT Total # of Minutes Spent Total Time Spent with Patient: Total time spent is greater than 50% in coordination of care (as documented) at patient's floor/unit and/or counseling patient: Coding Diagnoses SOB (shortness of breath) R06.02 Chronic obstructive pulmonary disease J44.1 COPD type: COPD with acute exacerbation Hypertension I10 Hypertension type: essential hypertension Hyperlipidemia E78.5 Hyperlipidemia type: unspecified GERD (gastroesophageal reflux disease) K21.9 Esophagitis presence: esophagitis presence not specified Diabetes mellitus, type 2 E11.65; Z79.4 Diabetes mellitus mcc insulin use: with mcc use Diabetes mellitus complication status: with hyperglycemia Morbid obesity due to excess calories E66.01 (1) Chronic obstructive pulmonary disease COPD type: COPD with acute exacerbation Qualified Code(s): J44.1 - Chronic obstructive pulmonary disease with (acute) exacerbation (2) Hypertension Hypertension type: essential hypertension Qualified Code(s): I10 - Essential (primary) hypertension (3) Hyperlipidemia Hyperlipidemia type: unspecified Qualified Code(s): E78.5 - Hyperlipidemia, unspecified (4) GERD (gastroesophageal reflux disease) Esophagitis presence: esophagitis presence not specified Qualified Code(s): K21.9 - Gastro-esophageal reflux disease without esophagitis (5) Diabetes mellitus, type 2 Diabetes mellitus mcc insulin use: with mcc use Diabetes mellitus complication status: with hyperglycemia Qualified Code(s): E11.65 - Type 2 diabetes mellitus with hyperglycemia; Z79.4 - long term (current) use of insulin
[2021-07-02] MEDS: NITROGLYCERIN SL 0.4 MG/TAB TAB SL PRN (21:06)
[2021-07-02] MEDS: CYCLOBENZAPRINE HCL 10 MG TAB PO SCH (21:06)
[2021-07-03] MEDS: LEVALBUTEROL HCL 1.25 MG/3 ML NEB NEB SCH ×4 (01:25→19:21)
[2021-07-03] MEDS: ASPIRIN 81 MG ECTAB PO SCH (08:09)
[2021-07-03] MEDS: FUROSEMIDE 40 MG in SYRINGE 0 ML IV SCH (08:09)
[2021-07-03] MEDS: FLUTICASONE/VILANTEROL 200/25MCG 14 PUFFS/INHALER INH SCH (08:09)
[2021-07-03] MEDS: INSULIN ASPART 100 UNITS/ML 3 ML PEN SC SCH ×4 (09:20→22:38)
[2021-07-03 09:22] LABS: Hematocrit (blood only) 45.9 % (37-47); Hemoglobin 14.5 g/dL (12.0-16.0); Mean Corpuscular Hgb Conc 31.6 g/dL (32-36); Mean Corpuscular Volume 98.1 fL (80-100); Mean Platelet Volume 11.2 fL (7.4-10.4); Platelet Count 275 K/uL (130-400); RDW Coefficient of Variation 15.2 % (11.5-14.5); RDW Standard Deviation 54.5 fL (36.4-46.3); Red Blood Count 4.68 M/uL (4.2-5.4); White Blood Count 8.56 K/uL (4.8-10.8)
[2021-07-03 09:46] LABS: BUN Creatinine Ratio 21.1 (10-20); Calcium 9.5 mg/dl (8.5-10.1); Creatinine Clr Calc Pharmacy 73.6 ml/min; Est GFR (African American) 68.8 ml/min; Est GFR (Non-African American) 59.3 ml/min; Potassium 3.7 mmol/L (3.5-5.1)
--- NOTE | 2021-07-03 13:42 | Pharmacy Report ---
Pharmacy Glycemic Short Note 2 - Date of Service July 03, 2021 - Glycemic Short BSG Results (Last 24 hours): 07/02/21 07/02/21 07/03/21 17:38 20:26 08:33 Glucose POC Glucose 110 H 122 H 108 H 07/03/21 07/03/21 08:56 12:38 Glucose 110 H POC Glucose 82 OUTPATIENT ANTIDIABETIC REGIMEN: * n/a * A1c = 8.3% on 08/09/20 {outdated} re-ordered for 07/02/21 ASSESSMENT: 07/03 * Blood sugars well controlled over last 24 hours, patient had one dose of Lantus yesterday, euglycemic or under goal since, will only restart Lantus for BSG > 160, may only have been needed to cover steroid * A1c 7.1%, see recommendations below * BSG down to 82mg/dl prior to lunch today, loosen CF/CR 07/02 * 55yo T2DM female- no outpatient antidiabetic medications. * Pt with hyperglycemia secondary to T2DM + steroids received in ED yesterday. * Will initiate weight based/moderate stress dosing of SQ basal bolus insulin regimen and titrate based on BSG trends. PLAN FOR INPATIENT GLYCEMIC CONTROL: * Basal insulin * Lantus 20 units SQ HS for BSG > 160mg/dl * Bolus insulin * NovoLog per scale ACHS or Q6hrs while NPO * Goal Range: Low 110 mg/dL - High 140 mg/dL * Correction Factor: 20 mg/dL/unit * Nutritional / Prandial insulin per carb ratio of 1 unit per 8 grams CHO consumed PLAN FOR DISCHARGE: * A1c 7.1% * Metformin should be started at the time type 2 diabetes is diagnosed unless there are contraindications. Metformin is effective and safe, is inexpensive, and may reduce risk of cardiovascular events and . oB12 supplementation may be necessary with usp metformin use oFDA has revised the label for metformin to reflect its safety in patients with eGFR 30 mL/min or above oRecommend starting: Metformin XR 500mg PO daily with evening meal. Typically the XR formulation of metformin is better tolerated than the immediate release formulation. Continue to titrate metformin dosing upwards as recommended. Dosage increases should be made in increments of 500 mg weekly, up to 2,000 mg/day PO, given in divided doses. Doses above 2000 mg/day may be better tolerated if divided and given 3 times per day with meals. Max: 2,550 mg/day PO, in divided doses * Support Patient Self-Management oHealthy Lifestyle (diet, exercise, and smoking cessation) oDisease self-management (SMBG) oPrevention of complications (BP, Lipid goals, Immunizations) oConsider outpatient Diabetes Self-Management Education & Support
[2021-07-03] MEDS: NITROGLYCERIN SL 0.4 MG/TAB TAB SL PRN ×2 (18:25→18:34)
[2021-07-03] MEDS: ENOXAPARIN INJ 40 MG/0.4 ML SYR SQ SCH (20:31)
[2021-07-03] MEDS: CYCLOBENZAPRINE HCL 10 MG TAB PO SCH (20:31)
--- NOTE | 2021-07-03 21:02 | Hospitalist Progress Note ---
Date of Service July 03, 2021 Assessment & Plan (1) SOB (shortness of breath): Plan: Patient is being admitted with symptoms of SOB on exertion. Patient has elevated BNP with findings of pulmonary edema. This is likely acute diastolic Congestive heart failure. Patient appears to have responded to80 mg of lasix the day prior. She is able to lie flat and breath better. Her lungs also appear to be cleaer. Appears breathing has improved. will obtain echocardiogram. concern over fact that patient is non compliant with her diabetes medication. concern over possiblilty of systolic dysfunction. (2) Chronic obstructive pulmonary disease: Plan: continue neb treatments (3) Hypertension: Plan: BP at goal. will monitor. (4) Hyperlipidemia: Plan: LDL at goal. continue lifestyle modifications. will recheck in AM (5) GERD (gastroesophageal reflux disease): Plan: symptoms appear controlled. (6) Diabetes mellitus, type 2: Plan: Patient has long standing diabetes type 2. Patient reports she is non compliant with her medicatins due to diarrhea from her metformin and not liking needles. She reports she has not tried a long acting metformin, nor did she take it on a full stomach. This may help limit her diarrhea. Will repeat a1c, consult diabetes education and glycemic control. Had extensive talk with patient about risks of insulin. (7) Morbid obesity due to excess calories: Plan: recommend lifestyle modfication (8) Chronic kidney disease, stage 3: Plan: Creatinine appears stable. (9) Acute on chronic diastolic (congestive) heart failure: (10) Chest pain: Plan: Patient reports having sharp severe chest PAIN. EKG was completed, showed no change. Will obtain trop x3. will transfer to [facility]. will cosnult cardio. Patient has atypical features, however she did improve with sbligual nitro. Given that her previous cath was negative,perhap prinzmetal angina? Will obtain doppler ultrasound to check for DVT. Admission and Anticipated Discharge Date Admission Date: July 01, 2021 Subjective Patient reports having chest pain. Patient reports it is sharp but worse. Patient though states that her pain has the same characteristics as before. She also took nitroglycerin and reports that this helped the pain. Review of Systems Review of Systems: All systems reviewed & are unremarkable except as noted in HPI & below Physical Exam Constitutional: WD/WN, vitals as above Eyes: PERRL, conjunctivae normal, anicteric sclerae ENMT: external ear and nose normal, oropharynx normal Neck: trachea midline, no thyromegaly Respiratory: + respiratory distress, + labored breathing and + uses accessory muscles Auscultation: + wheezes (bilaterally) Cardiovascular: Rate/Rhythm: + tachycardic Heart Sounds: normal S1 and normal S2 Gastrointestinal (Abdomen): normal bowel sounds, soft, nontender, no hepatosplenomegaly Musculoskeletal: no cyanosis or clubbing, extremities motor strength 5/5 Skin: no rashes, warm and dry Neurologic: PERRL, EOMI, accommodation nl, no face palsy, no dysarthria Psychiatric: A+Ox3, euthymic affect Lymphatic: no cervical or axillary lymphadenopathy Results & Data Results & Data ([facility]) Vital Signs (Past 12 Hours) Vital Signs Temp Pulse Resp BP Pulse Ox Pulse Ox 07/03/21 19:22 105 H 20 96 07/03/21 18:38 105 H 18 139/86 98 07/03/21 16:00 36.1 C L 97 H 20 122/82 96 96 07/03/21 13:23 108 H 20 96 PG Care Time/CCT Total # of Minutes Spent Total Time Spent with Patient: Total time spent is greater than 50% in coordination of care (as documented) at patient's floor/unit and/or counseling patient: Coding Level of Care Code 30302 Subseq Hosp Care Lvl 3 Diagnoses SOB (shortness of breath) R06.02 Chronic obstructive pulmonary disease J44.1 COPD type: COPD with acute exacerbation Hypertension I10 Hypertension type: essential hypertension Hyperlipidemia E78.5 Hyperlipidemia type: unspecified GERD (gastroesophageal reflux disease) K21.9 Esophagitis presence: esophagitis presence not specified Diabetes mellitus, type 2 E11.65; Z79.4 Diabetes mellitus complication status: with hyperglycemia 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 mellitus 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 tester use Morbid obesity due to excess calories E66.01 Chronic kidney disease, stage 3 N18.30 Acute on chronic diastolic (congestive) heart failure I50.33 Chest pain R07.2 Chest pain type: precordial pain (1) Diabetes mellitus, type 2 Diabetes mellitus complication status: with hyperglycemia Diabetes mellitus intermediate insulin use: with intermediate use Qualified Code(s): E11.65 - Type 2 diabetes mellitus with hyperglycemia; Z79.4 - assisted (current) use of insulin (2) Hyperlipidemia Hyperlipidemia type: unspecified Qualified Code(s): E78.5 - Hyperlipidemia, unspecified (3) Chronic obstructive pulmonary disease COPD type: COPD with acute exacerbation Qualified Code(s): J44.1 - Chronic obstructive pulmonary disease with (acute) exacerbation (4) GERD (gastroesophageal reflux disease) Esophagitis presence: esophagitis presence not specified Qualified Code(s): K21.9 - Gastro-esophageal reflux disease without esophagitis (5) Hypertension Hypertension type: essential hypertension Qualified Code(s): I10 - Essential (primary) hypertension (6) Chest pain Chest pain type: precordial pain Qualified Code(s): R07.2 - Precordial pain
[2021-07-03] MEDS: INSULIN GLARGINE SOLOSTAR 100 UNITS/ML 3 ML PEN SC SCH (22:39)
[2021-07-04] MEDS: LEVALBUTEROL HCL 1.25 MG/3 ML NEB NEB SCH ×4 (00:48→19:28)
--- NOTE | 2021-07-04 07:21 | Ultrasound Report ---
BILATERAL LOWER EXTREMITY VENOUS DOPPLER HISTORY: Acute pain and swelling of the lower legs chest pain COMPARISON STUDY: 08/11/2020. FINDINGS: There is normal compressibility, flow, and augmentation within the bilateral lower extremit y deep venous systems. IMPRESSION: No DVT within the right or left lower extremity. ACT 112: Negative or not required by law. Electronically signed by: Errol Cruz M.D. 07/04/2021 7:20 AM
[2021-07-04] MEDS: ASPIRIN 81 MG ECTAB PO SCH (09:18)
[2021-07-04] MEDS: FLUTICASONE/VILANTEROL 200/25MCG 14 PUFFS/INHALER INH SCH (09:18)
[2021-07-04] MEDS: INSULIN ASPART 100 UNITS/ML 3 ML PEN SC SCH ×4 (09:19→20:15)
--- NOTE | 2021-07-04 11:00 | Cardiology Progress Note ---
Date of Service July 04, 2021 Assessment & Plan Admission and Anticipated Discharge Date Admission Date: July 01, 2021 Subjective Patient notes that she was vaccinated June 18 or with the COVID-19 vaccination. She had a headache that evening and again the next and then she started noticing chest discomfort. She describes the discomfort is worse with a deep breath is also worse lying flat and it does get better sitting up but does not resolve. It does not radiate between her shoulder blades. She denies any fever she had one night of chills but that has resolved she denies any productive sputum. She denies any significant heartburn symptoms and her pain is not reproducible. Results & Data ([facility]) Vital Signs (Past 12 Hours) Vital Signs Temp Pulse Pulse Resp BP Pulse Ox 07/04/21 09:29 93 H 07/04/21 07:49 35.9 C L 89 22 124/86 98 07/04/21 07:08 81 16 93 07/04/21 03:55 82 20 93 07/04/21 03:16 36.8 C 93 H 19 135/87 97 07/04/21 00:48 110 H 22 93 07/03/21 23:33 100 H she is awake alert and oriented x3 she is in no acute distress HEENT: 1+ carotid upstrokes Lungs: Clear to auscultation bilaterally no rales rhonchi or wheezing Heart: Regular rate and rhythm no appreciable murmurs rubs or gallops her heart sounds were not distant Abdomen: Soft nontender senna positive bowel sounds obese extremities: No clubbing cyanosis or edema Psychiatric after appear appropriate She was in the ER and then went home had an EKG at that visit and if you review her EKGs during this visit compared to over a year ago she does have diffuse ST elevation in potentially very subtle SD depression. That ST elevation was not present on her EKGs prior to her COVID-19 vaccination. Her troponins are negative during this entire admission including repeat troponins that were drawn on July 04 x2 (1) Acute on chronic diastolic (congestive) heart failure: (2) Morbid obesity due to excess calories: (3) Chest pain: Likely pericarditis secondary to her COVID-19 vaccination (4) Chronic obstructive pulmonary disease: (5) Obstructive sleep apnea on CPAP: In reviewing her EKGs and her laboratory study as well as her echocardiogram, her history this is most consistent with pericarditis. This would explain why her symptoms do not get better necessarily with nitroglycerin. She had a negative stress test in 2019 and a previous catheterization that did not reveal any evidence of epicardial coronary artery disease. Her most recent ec hocardiogram does not reveal any pericardial effusion. I would start colchicine 0.6 mg twice daily along with Pepcid 20 mg twice daily this should hopefully improve her symptoms in the next 24 hours. She appears more prerenal on her laboratory studies her IV Lasix is currently on hold. I would switch her over to oral Lasix she may only need 20 mg a day as she was not on diuretics according to her home medication list. [facility] any physician group cardiology will return tomorrow to care for her
[2021-07-04] MEDS: FAMOTIDINE 20 MG TAB PO SCH ×2 (12:36→20:10)
[2021-07-04] MEDS: COLCHICINE 0.6 MG TAB PO SCH ×2 (13:18→20:10)
--- NOTE | 2021-07-04 19:41 | Hospitalist Progress Note ---
Date of Service July 04, 2021 Assessment & Plan (1) SOB (shortness of breath): Plan: Patient was admitted with symptoms of SOB on exertion. Patient had elevated BNP with findings of pulmonary edema. This was likely acute diastolic Congestive heart failure. Patient appears to have responded to aggressive doses (80 mg) of lasix, now taking 40 mg daily. She is able to lie flat and breath better. Her lungs also appear to be cleaer. Appears breathing has improved. echo completed. concern over fact that patient is non compliant with her diabetes medication: A1C improved will try metformin as an outpatient given her weightloss. . (2) Chronic obstructive pulmonary disease: Plan: continue neb treatments (3) Hypertension: Plan: BP at goal. will monitor. (4) Hyperlipidemia: Plan: LDL at goal. continue lifestyle modifications. will recheck in AM (5) GERD (gastroesophageal reflux disease): Plan: symptoms appear controlled. (6) Diabetes mellitus, type 2: Plan: Patient has long standing diabetes type 2. Patient reports she is non compliant with her medicatins due to diarrhea from her metformin and not liking needles. She reports she has not tried a long acting metformin, nor did she take it on a full stomach. This may help limit her diarrhea. Will repeat a1c, consult diabetes education and glycemic control. Had extensive talk with patient about risks of insulin. (7) Morbid obesity due to excess calories: Plan: recommend lifestyle modfication (8) Chronic kidney disease, stage 3: Plan: Creatinine appears stable. (9) Acute on chronic diastolic (congestive) heart failure: Plan: as noted above. (10) Chest pain: Plan: Appears to be due to pericarditis. Trops negative doppler u/s for dvt negative CTA lung negative for P/E placed on colchicine and pepcid. (11) Pericarditis: Admission and Anticipated Discharge Date Admission Date: July 01, 2021 Subjective Patient reports feeling better. Her pain has improved and her breathing has as well. Review of Systems Review of Systems: All systems reviewed & are unremarkable except as noted in HPI & below Physical Exam Constitutional: WD/WN, vitals as above Eyes: PERRL, conjunctivae normal, anicteric sclerae ENMT: external ear and nose normal, oropharynx normal Neck: trachea midline, no thyromegaly Respiratory: normal respiratory effort, lungs clear to auscultation Cardiovascular: Rate/Rhythm: regular rate Heart Sounds: normal S1 and normal S2 Gastrointestinal (Abdomen): normal bowel sounds, soft, nontender, no hepatosplenomegaly Musculoskeletal: no cyanosis or clubbing, extremities motor strength 5/5 Skin: no rashes, warm and dry Neurologic: PERRL, EOMI, accommodation nl, no face palsy, no dysarthria Psychiatric: A+Ox3, euthymic affect Lymphatic: no cervical or axillary lymphadenopathy Results & Data Results & Data ([facility]) Vital Signs (Past 12 Hours) Vital Signs Temp Pulse Pulse Resp BP BP Pulse Ox 07/04/21 19:32 71 71 22 94 07/04/21 19:14 36.6 C 95 H 19 144/94 H 92 07/04/21 16:00 96 H 07/04/21 15:00 36.5 C 98 H 20 116/78 95 07/04/21 12:57 105 H 18 95 07/04/21 09:29 93 H 07/04/21 07:49 35.9 C L 89 22 124/86 98 PG Care Time/CCT Total # of Minutes Spent Total Time Spent with Patient: Total time spent is greater than 50% in coordination of care (as documented) at patient's floor/unit and/or counseling patient: Coding Level of Care Code 56227 Subseq Hosp Care Lvl 3 Diagnoses SOB (shortness of breath) R06.02 Chronic obstructive pulmonary disease J44.1 COPD type: COPD with acute exacerbation Hypertension I10 Hypertension type: essential hypertension Hyperlipidemia E78.5 Hyperlipidemia type: unspecified GERD (gastroesophageal reflux disease) K21.9 Esophagitis presence: esophagitis presence not specified Diabetes mellitus, type 2 E11.65; Z79.4 Diabetes mellitus complication status: with hyperglycemia 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: with rotary filter operator use Morbid obesity due to excess calories E66.01 Chronic kidney disease, stage 3 N18.30 Acute on chronic diastolic (congestive) heart failure I50.33 Chest pain R07.2 Chest pain type: precordial pain Pericarditis I31.9 (1) Diabetes mellitus, type 2 Diabetes mellitus complication status: with hyperglycemia 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: with shelter use Qualified Code(s): E11.65 - Type 2 diabetes mellitus with hyperglycemia; Z79.4 - alf (current) use of insulin (2) Hyperlipidemia Hyperlipidemia type: unspecified Qualified Code(s): E78.5 - Hyperlipidemia, unspecified (3) Chronic obstructive pulmonary disease COPD type: COPD with acute exacerbation Qualified Code(s): J44.1 - Chronic obstructive pulmonary disease with (acute) exacerbation (4) GERD (gastroesophageal reflux disease) Esophagitis presence: esophagitis presence not specified Qualified Code(s): K21.9 - Gastro-esophageal reflux disease without esophagitis (5) Chest pain Chest pain type: precordial pain Qualified Code(s): R07.2 - Precordial pain (6) Hypertension Hypertension type: essential hypertension Qualified Code(s): I10 - Essential (primary) hypertension
[2021-07-04] MEDS: INSULIN GLARGINE SOLOSTAR 100 UNITS/ML 3 ML PEN SC SCH (19:59)
[2021-07-04] MEDS: CYCLOBENZAPRINE HCL 10 MG TAB PO SCH (20:10)
[2021-07-04] MEDS: ENOXAPARIN INJ 40 MG/0.4 ML SYR SQ SCH (20:10)
[2021-07-05] MEDS: LEVALBUTEROL HCL 1.25 MG/3 ML NEB NEB SCH ×3 (00:06→13:39)
[2021-07-05 06:34] LABS: BUN Creatinine Ratio 30.3 (10-20); Calcium 8.8 mg/dl (8.5-10.1); Creatinine Clr Calc Pharmacy 82.1 ml/min; Est GFR (African American) 78.6 ml/min; Est GFR (Non-African American) 67.8 ml/min; Potassium 4.4 mmol/L (3.5-5.1)
[2021-07-05 06:44] LABS: Hematocrit (blood only) 46.9 % (37-47); Hemoglobin 14.6 g/dL (12.0-16.0); Mean Corpuscular Hemoglobin 31.1 pg (25-34); Mean Corpuscular Hgb Conc 31.1 g/dL (32-36); Mean Platelet Volume 11.6 fL (7.4-10.4); Platelet Count 225 K/uL (130-400); RDW Standard Deviation 54.7 fL (36.4-46.3); Red Blood Count 4.69 M/uL (4.2-5.4); White Blood Count 6.61 K/uL (4.8-10.8)
--- NOTE | 2021-07-05 08:20 | Hospitalist Progress Note ---
Date of Service July 05, 2021 Assessment & Plan (1) SOB (shortness of breath): Plan: Patient was admitted with symptoms of SOB on exertion. Patient had elevated BNP with findings of pulmonary edema. This was likely acute diastolic Congestive heart failure. Patient appears to have responded to aggressive doses (80 mg) of lasix, now taking 40 mg daily. She is able to lie flat and breath better. Her lungs also appear to be clear. Appears breathing has improved. TTE - LVEF 40-45% (2) Acute on chronic diastolic (congestive) heart failure: Plan: as noted above. (3) Pericarditis: Plan: Colchicine + famotidine per cardiology recommendations. Discussed with Dr Dominguez today and unclear this is true diagnosis as patient was on prednisone prior to admission without improvement. Will continue on treatment for today and monitor for improvement. (4) Chest pain: Plan: Suspected secondary to pericarditis from COVID-19 infection Trops negative doppler u/s for dvt negative CTA lung negative for P/E placed on colchicine and pepcid. (5) Chronic obstructive pulmonary disease: Plan: continue neb treatments (6) Hypertension: Plan: BP at goal. will monitor. (7) Hyperlipidemia: Plan: LDL at goal. continue lifestyle modifications. will recheck in AM (8) GERD (gastroesophageal reflux disease): Plan: symptoms appear controlled. (9) Diabetes mellitus, type 2: Plan: Patient has long standing diabetes type 2. Patient reports she is non compliant with her medications due to diarrhea from her metformin and not liking needles. She reports she has not tried a long acting metformin, nor did she take it on a full stomach. This may help limit her diarrhea. HbA1C 7.1 (10) Morbid obesity due to excess calories: Plan: recommend lifestyle modfication (11) Chronic kidney disease, stage 3: Plan: Creatinine appears stable. Admission and Anticipated Discharge Date Admission Date: July 01, 2021 Subjective Continued chest pain and shortness of breath on exertion. Chest pain and shortness of breath worse lying flat. No radiation. More of pressure than pain. Unable to get to the bathroom easily at home. Discussed care with Dr Dominguez. Review of Systems Review of Systems: All systems reviewed & are unremarkable except as noted in HPI & below Physical Exam Constitutional: WD/WN, vitals as above Neck: trachea midline, no thyromegaly Respiratory: normal respiratory effort Auscultation: no diminished lung sounds, no crackles, no rales and no wheezes Cardiovascular: Rate/Rhythm: regular rate and regular rhythm Heart Sounds: normal S1 and normal S2; no murmur Skin: no rashes, warm and dry Psychiatric: A+Ox3, euthymic affect Results & Data Results & Data ([facility]) Vital Signs (Past 12 Hours) Vital Signs Temp Pulse Pulse Pulse Resp BP Pulse Ox 07/05/21 07:23 36.6 C 98 H 18 117/81 99 07/05/21 03:36 72 22 93 07/05/21 02:51 36.7 C 96 H 24 106/73 98 07/05/21 00:06 72 20 97 07/04/21 23:24 95 H 07/04/21 23:22 36.7 C 97 H 18 106/70 95 07/04/21 22:32 74 22 94 PG Care Time/CCT Total # of Minutes Spent Total Time Spent with Patient: Total time spent is greater than 50% in coordination of care (as documented) at patient's floor/unit and/or counseling patient: Coding Level of Care Code 37040 Subseq Hosp Care Lvl 2 Diagnoses SOB (shortness of breath) R06.02 Chronic obstructive pulmonary disease J44.1 COPD type: COPD with acute exacerbation Hypertension I10 Hypertension type: essential hypertension Hyperlipidemia E78.5 Hyperlipidemia type: unspecified GERD (gastroesophageal reflux disease) K21.9 Esophagitis presence: esophagitis presence not specified Diabetes mellitus, type 2 E11.65; Z79.4 Diabetes mellitus complication status: with hyperglycemia Diabetes mellitus halfway insulin use: with halfway use Morbid obesity due to excess calories E66.01 Chronic kidney disease, stage 3 N18.30 Acute on chronic diastolic (congestive) heart failure I50.33 Chest pain R07.2 Chest pain type: precordial pain Pericarditis I31.9 (1) Diabetes mellitus, type 2 Diabetes mellitus complication status: with hyperglycemia 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 Qualified Code(s): E11.65 - Type 2 diabetes mellitus with hyperglycemia; Z79.4 - superintendent terminal (current) use of insulin (2) Hyperlipidemia Hyperlipidemia type: unspecified Qualified Code(s): E78.5 - Hyperlipidemia, unspecified (3) Chronic obstructive pulmonary disease COPD type: COPD with acute exacerbation Qualified Code(s): J44.1 - Chronic obstructive pulmonary disease with (acute) exacerbation (4) GERD (gastroesophageal reflux disease) Esophagitis presence: esophagitis presence not specified Qualified Code(s): K21.9 - Gastro-esophageal reflux disease without esophagitis (5) Chest pain Chest pain type: precordial pain Qualified Code(s): R07.2 - Precordial pain (6) Hypertension Hypertension type: essential hypertension Qualified Code(s): I10 - Essential (primary) hypertension
[2021-07-05] MEDS: ASPIRIN 81 MG ECTAB PO SCH (08:50)
[2021-07-05] MEDS: FLUTICASONE/VILANTEROL 200/25MCG 14 PUFFS/INHALER INH SCH (08:50)
[2021-07-05] MEDS: COLCHICINE 0.6 MG TAB PO SCH ×2 (08:50→20:17)
[2021-07-05] MEDS: FAMOTIDINE 20 MG TAB PO SCH ×2 (08:50→20:17)
[2021-07-05] MEDS: FUROSEMIDE 20 MG TAB PO SCH (08:50)
[2021-07-05] MEDS: INSULIN ASPART 100 UNITS/ML 3 ML PEN SC SCH ×4 (08:53→20:18)
--- NOTE | 2021-07-05 09:10 | Pharmacy Report ---
Pharmacy Glycemic Short Note 2 - Date of Service July 05, 2021 - Glycemic Short BSG Results (Last 24 hours): 07/04/21 07/04/21 07/04/21 11:21 16:41 19:30 Glucose POC Glucose 125 H 184 H 126 H 07/05/21 07/05/21 05:43 07:34 Glucose 139 H POC Glucose 113 H OUTPATIENT ANTIDIABETIC REGIMEN: * n/a * A1c = 8.3% on 08/09/20 {outdated} re-ordered for 07/02/21 ASSESSMENT: 07/05/21 * BSGs yesterday were [phone] mg/dL with only one BSG above goal range. This was an atypical BSG reading so will continue current regimen. * Fasting BSG is 113 mg/dL today so d/c Lantus. 07/03 * Blood sugars well controlled over last 24 hours, patient had one dose of Lantus yesterday, euglycemic or under goal since, will only restart Lantus for BSG > 160, may only have been needed to cover steroid * A1c 7.1%, see recommendations below * BSG down to 82mg/dl prior to lunch today, loosen CF/CR 07/02 * 55yo T2DM female- no outpatient antidiabetic medications. * Pt with hyperglycemia secondary to T2DM + steroids received in ED yesterday. * Will initiate weight based/moderate stress dosing of SQ basal bolus insulin regimen and titrate based on BSG trends. PLAN FOR INPATIENT GLYCEMIC CONTROL: * Basal insulin- d/c * Bolus insulin * NovoLog per scale ACHS or Q6hrs while NPO * Goal Range: Low 110 mg/dL - High 140 mg/dL * Correction Factor: 20 mg/dL/unit * Nutritional / Prandial insulin per carb ratio of 1 unit per 8 grams CHO consumed PLAN FOR DISCHARGE: * A1c 7.1% * Metformin should be started at the time type 2 diabetes is diagnosed unless there are contraindications. Metformin is effective and safe, is inexpensive, and may reduce risk of cardiovascular events and . 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 Typically the XR formulation of metformin is better tolerated than the immediate release formulation. Continue to titrate metformin dosing upwards as recommended. Dosage increases should be made in increments of 500 mg weekly, up to 2,000 mg/day PO, given in divided doses. Doses above 2000 mg/day may be better tolerated if divided and given 3 times per day with meals. Max: 2,550 mg/day PO, in divided doses * Support Patient Self-Management oHealthy Lifestyle (diet, exercise, and smoking cessation) oDisease self-management (SMBG) oPrevention of complications (BP, Lipid goals, Immunizations) oConsider outpatient Diabetes Self-Management Education & Support
--- NOTE | 2021-07-05 14:55 | Electrocardiogram Report ---
Test Reason : Blood Pressure : / mmHG Vent. Rate : 104 BPM Atrial Rate : 104 BPM P-R Int : 146 ms QRS Dur : 078 ms QT Int : 354 ms P-R-T Axes : 046 041 054 degrees QTc Int : 465 ms Sinus tachycardia Voltage criteria for left ventricular hypertrophy Abnormal ECG When compared with ECG of 02-JUL-2021 13:32, No significant change was found Confirmed by Dwayne Guy ([id number]) on 07/05/2021 2:54:59 PM Referred By: REFERRED SELF Confirmed By:Dwayne Guy
[2021-07-05] MEDS ORDERED: LEVALBUTEROL HCL 1.25 MG/3 ML NEB NEB PRN (15:06)
--- NOTE | 2021-07-05 16:30 | Cardiology Progress Note ---
Date of Service July 05, 2021 Assessment & Plan (1) Acute on chronic diastolic (congestive) heart failure: (2) Morbid obesity due to excess calories: (3) Chest pain: (4) Chronic obstructive pulmonary disease: (5) Obstructive sleep apnea on CPAP: Plan: Acute on chronic diastolic CHF: Overall improved. She continues to have element of dyspnea, but do not believe this is entirely related to pulmonary vascular congestion. She continues on low-dose of Lasix. Preserved LV systolic function. Chest pain: Started on colchicine yesterday. No significant change in her discomfort. I think we will continue for another day and consider discontinuation in the absence of improvement. Asthma/COPD: Morbid obesity: Likely a contributing factor to her symptoms. Recommend weight loss with diet and exercise as tolerated. SMITA: Encourage CPAP compliance. Disposition: Recommend outpatient follow up with the heart failiure program. Admission and Anticipated Discharge Date Admission Date: July 01, 2021 Subjective This morning the patient stated that her breathing is better since admission. However, she still has an element of shortness of breath. Minimal ambulation. Chest pain unchanged. Review of Systems Review of Systems: Per HPI Physical Exam Physical Exam: General: Sitting at the bedside. Appears comfortable, NAD. Room air. HEENT: Head is atraumatic, normocephalic. EOMs intact. Sclerae anicteric. Facies symmetric. No perioral cyanosis. Chest and Lungs: Normal respiratory effort. She has scattered expiratory wheezes. some bronchial breath sounds. CVS: S1 and S2 are regular without murmurs, gallops, or rubs. Extremities: No clubbing, cyanosis. Trace lower extremity edema. Neurologic Exam: Patient is awake, alert, and oriented. Pleasant and cooperative. Answers questions appropriately. Speech is clear. Normal movement in all 4 extremities. Results & Data ([facility]) Vital Signs (Past 12 Hours) Vital Signs Temp Pulse Pulse Resp BP Pulse Ox 07/05/21 15:25 36.7 C 103 H 18 125/81 97 07/05/21 15:00 98 H 07/05/21 13:39 82 18 95 07/05/21 11:59 37 C 95 H 16 112/77 94 07/05/21 10:18 95 H 07/05/21 08:26 85 20 96 07/05/21 07:23 36.6 C 98 H 18 117/81 99 Laboratory Results Abnormal Lab Results 07/04/21 07/04/21 07/05/21 16:41 19:30 05:43 WBC 6.61 RBC 4.69 Hgb 14.6 Hct 46.9 MCV 100.0 MCH 31.1 MCHC 31.1 L RDW Std Deviation 54.7 H RDW Coeff of Majo 15.0 H Plt Count 225 MPV 11.6 H Sodium Potassium Chloride Carbon Dioxide Anion Gap BUN Creatinine Est Cr Clr Drug Dosing Est GFR ( Amer) Est GFR (Non-Af Amer) BUN/Creatinine Ratio Glucose POC Glucose 184 H 126 H Calcium NT-Pro-B Natriuret Pep 07/05/21 07/05/21 07/05/21 05:43 07:34 11:17 WBC RBC Hgb Hct MCV MCH MCHC RDW Std Deviation RDW Coeff of Majo Plt Count MPV Sodium 141 Potassium 4.4 D Chloride 110 H Carbon Dioxide 25 Anion Gap 6.0 BUN 29 H Creatinine 0.94 Est Cr Clr Drug Dosing 82.1 Est GFR ( Amer) 78.6 Est GFR (Non-Af Amer) 67.8 BUN/Creatinine Ratio 30.3 H Glucose 139 H POC Glucose 113 H 125 H Calcium 8.8 NT-Pro-B Natriuret Pep 409 PG Care Time/CCT Total # of Minutes Spent Total Time Spent with Patient: Total time spent is greater than 50% in coordination of care (as documented) at patient's floor/unit and/or counseling patient: Coding Level of Care Code 55964 Subseq Hosp Care Lvl 2 Diagnoses Acute on chronic diastolic (congestive) heart failure I50.33 Morbid obesity due to excess calories E66.01 Chest pain R07.2 Chest pain type: precordial pain Chronic obstructive pulmonary disease J44.1 COPD type: COPD with acute exacerbation Obstructive sleep apnea on CPAP G47.33; Z99.89 (1) Chest pain Chest pain type: precordial pain Qualified Code(s): R07.2 - Precordial pain (2) Chronic obstructive pulmonary disease COPD type: COPD with acute exacerbation Qualified Code(s): J44.1 - Chronic obstructive pulmonary disease with (acute) exacerbation
[2021-07-05] MEDS: CYCLOBENZAPRINE HCL 10 MG TAB PO SCH (20:17)
[2021-07-05] MEDS: ENOXAPARIN INJ 40 MG/0.4 ML SYR SQ SCH (20:17)
[2021-07-06] MEDS: COLCHICINE 0.6 MG TAB PO SCH ×2 (07:22→17:57)
[2021-07-06] MEDS: FAMOTIDINE 20 MG TAB PO SCH ×2 (07:22→17:57)
[2021-07-06] MEDS: FUROSEMIDE 20 MG TAB PO SCH (07:23)
[2021-07-06] MEDS: FLUTICASONE/VILANTEROL 200/25MCG 14 PUFFS/INHALER INH SCH (07:23)
[2021-07-06] MEDS: ASPIRIN 81 MG ECTAB PO SCH (07:23)
[2021-07-06] MEDS: INSULIN ASPART 100 UNITS/ML 3 ML PEN SC SCH ×3 (07:58→16:45)
[2021-07-06 14:51] LABS: BUN Creatinine Ratio 23.8 (10-20); C Reactive Protein 0.7 mg/dl (0-0.29); Est GFR (African American) 73.8 ml/min; Est GFR (Non-African American) 63.7 ml/min; Potassium 4.6 mmol/L (3.5-5.1)
[2021-07-06 17:08] LABS: Albumin Level 3.6 gm/dl (3.4-5.0); Bilirubin Direct 0.2 mg/dl (0-0.2); Bilirubin,Total 0.7 mg/dl (0.2-1); Total Protein 7.4 gm/dl (6.4-8.2)
--- NOTE | 2021-07-08 16:02 | Discharge Summary ---
Date of Service July 08, 2021 Admission HPI Per Admitting Provider 55 yo female reports feeling SOB for past 2 weeks. Symptoms ahve been getting worse gradually over past 2 weeks. Patient reports more SOB when ambulating. Patient prefers not to lie flat. SOB was accompanied by midsternum pleuritic moderately intense sharp chest pain. Due to worsening SOB patient came to the ER. Discharge Data Allergies Allergy/AdvReac Type Severity Reaction Status Date / Time No Known Allergies Allergy Verified 06/21/21 12:50 Consultations 07/01/21 17:32 ED Decision to Admit Stat 07/01/21 17:45 Consult Cardiology Routine 07/01/21 17:55 [facility] CHF Program Referral Routine Ordered Studies 07/01/21 16:14 CT angio chest PE protocol Stat 07/03/21 18:35 US venous doppler LE Routine Hospital Course (1) SOB (shortness of breath): (2) Acute on chronic diastolic (congestive) heart failure: (3) Pericarditis: (4) Chest pain: (5) Chronic obstructive pulmonary disease: (6) Hypertension: (7) Hyperlipidemia: (8) GERD (gastroesophageal reflux disease): (9) Diabetes mellitus, type 2: (10) Morbid obesity due to excess calories: recommend lifestyle modfication (11) Chronic kidney disease, stage 3: Creatinine appears stable. Discharge Plan Discharge Items Patient Disposition: Home - Self-Care Reason For Visit: CHF/COPD Discharge Diagnosis: Acute on chronic diastolic congestive heart failure Possible pericarditis Activity: Resume your previous activity Non-emergency contact: Primary Care Provider Call non-emergency contact if: your symptoms worsen Follow-up/Referrals: Nita Torres MD [Primary Care Provider] - 07/19/21 10:00 am Nita Moon PA-C [Physician Public Safety Director] - 07/09/21 11:00 am (Congestive Heart Failure Program Appointment Information Early follow up is essential to managing your heart failure. An appointment has been scheduled for you with the [facility] Heart Failure Program within 7 days of discharge. Anticipate this visit to be 30-60 minutes long. Please expect a ground operations crew member phone call from one of our nurses approximately 48 hours from discharge. They will also be placing an order for lab work to be completed 1-2 days prior to your heart failure follow up appointment. Please be sure to have this done so we can go over the results when you come in. Office Location The cardiology office building is located in front of the hospital at [address] Bring the following with you to your follow-up doctor appointments: Please bring your daily weight log any discharge paperwork all of your medication bottles with you to this visit. ) Diet: Heart Healthy and Low Sodium (2gm) Addtl Attending Provider Instructions: You were admitted to [facility] from July 01 - 2020 due to shortness of breath and chest pain. This improved with furosemide to help with too much fluid on your lungs (heart failure). Given no significant i mprovement with steroids suspect this is less likely related to your COPD. Possibility of pericarditis due to positional nature of chest pain therefore you were started on colchicine with good resolution of your symptoms, therefore recommend continuing on this for a total of 3 months. You were also started on famotidine therefore some of your pain may be gastrointestinal related and recommend continuing this for one month and stopping to see if your symptoms of chest pain recur. You were started on furosemide 20mg PO daily on discharge. Please continue on this dose and follow up with the heart failure clinic for ongoing adjustments. Kind regards, Dr Booker Rodriguez Pending Studies at Discharge: No Stand-Alone Forms: My [facility], Smoking Cessation Medications and DC Order Prescriptions: New famotidine 20 mg Tablet 20 mg PO QAM 30 Days Qty: 30 RF: 0 furosemide 20 mg Tablet 20 mg PO QAM Qty: 30 RF: 0 colchicine [Colcrys] 0.6 mg Tablet 0.6 mg PO BID 90 Days Qty: 180 RF: 0 Continued cyclobenzaprine 10 mg tablet 10 mg PO HS Qty: 30 RF: 0 albuterol sulfate 0.63 mg/3 mL solution for nebulization 0.63 mg continuous nebulization UD PRN (Reason: Shortness Of Breath) RF: 0 nitroglycerin [Nitrostat] 0.4 mg Tablet, Sublingual 0.4 mg sublingual UD PRN (Reason: Chest Pain) RF: 0 albuterol sulfate 90 mcg/actuation HFA aerosol inhaler 2 puff INHALATION Q6 PRN (Reason: Shortness Of Breath Or Wheezing) RF: 0 Dulera 200-5 mcg/actuation HFA aerosol inhaler 2 puff INHALATION BID RF: 0 Atrovent HFA 17 mcg/actuation HFA aerosol inhaler 2 puff INHALATION TID RF: 0 diclofenac sodium 1 % gel 2 g TOPICAL QID PRN (Reason: Pain) RF: 0 Discharge Orders: Discharge Order (Routine); Ordered 07/06/21 Ordered By: Booker Stallworth/Other Patient Handouts: A1C, Pericarditis, Managing Type 2 Diabetes, ED Chest Pain, Uncertain Cause Admission Data Admit Date/Time: 07/01/21 18:00 Attending Provider: Booker Rodriguez Admit Provider: Link Dupont Primary Care Provider: Nita Torres Other Providers: Link Dupont ; Rambo Dominguez ; Nita Moon Other Interventions: Discharge Summary Assessment (RN) Last Done: 07/06/21 17:43 Coding Diagnoses SOB (shortness of breath) R06.02 Acute on chronic diastolic (congestive) heart failure I50.33 Pericarditis I31.9 Chest pain R07.2 Chest pain type: precordial pain Chronic obstructive pulmonary disease J44.1 COPD type: COPD with acute exacerbation Hypertension I10 Hypertension type: essential hypertension Hyperlipidemia E78.5 Hyperlipidemia type: unspecified GERD (gastroesophageal reflux disease) K21.9 Esophagitis presence: esophagitis presence not specified Diabetes mellitus, type 2 E11.65; Z79.4 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
== END 2021-07-06 18:36 | disposition home or self-care (01) ==
LOC: ED 13:37 → INTOOBSV 18:00 → SUATTDRO 18:00 → 3N 18:00 → 2W 07-03 20:12

== ENCOUNTER 2021-11-10 09:04 | Inpatient (IN) ==
[2021-11-10 09:48] LABS: Basophils # (auto) 0.01 K/uL (0-0.2); Basophils % (auto) 0.1 %; Eosinophils # (auto) 0.07 K/uL (0-0.5); Hematocrit (blood only) 38.6 % (37-47); Hemoglobin 12.1 g/dL (12.0-16.0); Immature Granulocytes # (auto) 0.01 K/uL (0.00-0.02); Immature Granulocytes % (auto) 0.1 %; Lymphocytes # (auto) 2.16 K/uL (1.2-3.4); Lymphocytes % (auto) 30.5 %; Mean Corpuscular Hemoglobin 30.4 pg (25-34); Mean Corpuscular Hgb Conc 31.3 g/dL (32-36); Monocytes % (auto) 5.6 %; Neutrophils # (auto) 4.44 K/uL (1.4-6.5); Neutrophils % (auto) 62.7 %; Platelet Count 376 K/uL (130-400); RDW Coefficient of Variation 15.2 % (11.5-14.5); RDW Standard Deviation 54.2 fL (36.4-46.3); Red Blood Count 3.98 M/uL (4.2-5.4); White Blood Count 7.09 K/uL (4.8-10.8)
[2021-11-10] MEDS ORDERED: ACETAMINOPHEN 1,000 MG/100 ML VIAL IV STA (09:52)
[2021-11-10] MEDS ORDERED: dexAMETHasone**PF** 10 MG/ML VIAL IV ONE (09:52)
[2021-11-10] MEDS ORDERED: FAMOTIDINE 20MG IV PUSH 20 MG/5 ML SYR IV STA (09:52)
[2021-11-10] MEDS ORDERED: ALBUT/IPRATROP 3MG/0.5MG NEB 3 ML VIAL NEB STA (09:52)
[2021-11-10 10:04] LABS: INR 1.1 (0.9-1.1); Prothrombin Time 10.8 Seconds (9.0-12.0)
--- NOTE | 2021-11-10 10:04 | XRay Report ---
XR chest 1V portable HISTORY: Atypical Chest Pain COMPARISON: Chest 09/22/2021. FINDINGS: No pneumothorax. The heart remains mildly enlarged. There is diffuse interstitial/vascular thickening and a trace right pleural effusion. This favors mild interstitial pulmonary edema. Hazy pa tchy airspace opacities have resolved in the interval. A new hazy airspace opacity within the right l ateral lung base may be due to the suspected pleural effusion. Otherwise, no focal lung consolidation s. IMPRESSION: 1. Cardiomegaly with mild interstitial pulmonary edema and a small right pleural effusion. 2. A new hazy airspace opacity within the right lateral lung base may be due to the pleural effusion. ACT 112: Negative or not required by law. Electronically signed by: Octaviano Garcia M.D. 11/10/2021 10:02 AM
[2021-11-10 10:14] LABS: Alanine Aminotransferase 16 U/L (7-52); Albumin Globulin Ratio 0.9 (0.9-2); Albumin Level 3.5 gm/dl (3.4-5.0); Alkaline Phosphatase 89 U/L (34-104); Anion Gap 6 (3-11); Aspartate Aminotransferase 20 U/L (13-39); BUN Creatinine Ratio 17.5 (10-20); Bilirubin,Total 0.3 mg/dl (0.2-1.0); Blood Urea Nitrogen 14 mg/dl (6-23); Calcium 9.2 mg/dl (8.5-10.1); Carbon Dioxide 27 mmol/L (21-32); Chloride 111 mmol/L (98-107); Creatinine Clr Calc Pharmacy 99.5 ml/min; Est GFR (African American) 94.9 ml/min; Est GFR (Non-African American) 81.8 ml/min; Globulin 3.8 gm/dl (2.5-4.0); Glucose 110 mg/dl (70-99(Fasting)); Lipase 25 U/L (11-82); Phosphorus 2.9 mg/dl (2.5-4.9); Sodium 144 mmol/L (136-145); Total Protein 7.3 gm/dl (6.0-8.3)
[2021-11-10 10:27] LABS: Influenza A virus by PCR Negative (Neg); Influenza B virus by PCR Negative (Neg); RSV by PCR Negative (Neg); SARS CoV2 RNA(COVID-19) InHosp NEGATIVE (Negative)
[2021-11-10] MEDS ORDERED: OPTIRAY 320 125ml IV ONE (10:43)
[2021-11-10 10:59] LABS: Troponin I < 0.03 ng/ml (0-0.04)
--- NOTE | 2021-11-10 11:31 | CT Scan Report ---
CHEST CTA for PULMONARY ARTERIES CT DOSE: 690.83 mGy.cm HISTORY: cough, blood tinged sputum, PE TECHNIQUE: Multiaxial CT images of the chest were performed following the intravenous administration of contrast to evaluate the pulmonary arteries. Maximal intensity projection images were also obtaine d. A dose lowering technique was utilized adhering to the principles of ALARA. COMPARISON STUDY: Chest CTA 09/22/2021. FINDINGS: There appears be a focal filling defect within the lateral basal segmental pulmonary artery of the right lower lobe best seen image 94. This is difficult to assess due to the mild motion artif act at this location. There is an associated focal wedge-shaped area of consolidation within the late ral basal segment of the right lower lobe. This appears to represent a pulmonary infarct. Therefore, the filling defect is suspicious for a pulmonary embolus. No additional filling defects within the re maining pulmonary arteries. The heart is enlarged. Mild retrograde opacification of the hepatic veins likely due to right-sided heart failure. No contrast within the thoracic aorta assess for a dissecti on. However, the thoracic aorta is normal in caliber. Small bilateral pleural effusions, right greate r than left. The visualized liver, spleen, and adrenal glands unremarkable. Normal esophagus. A few p rominent AP window lymph nodes. No hilar lymphadenopathy. No pericardial effusion. No fractures withi n the visualized osseous structures. No pneumothorax. Central airways are patent. Mild interlobular s eptal thickening consistent with mild pulmonary edema. This is most pronounced at the lung bases. IMPRESSION: 1. There appears to be a focal filling defect seen within the lateral basal segmental bronchus of the right lower lobe. This is suboptimally assessed due to the motion artifact. However, this most likel y represents a pulmonary embolus given the adjacent focal wedge-shaped consolidation likely represent ing a pulmonary infarct. 2. Cardiomegaly, mild interstitial pulmonary edema, and small bilateral pleural effusions. ACT 112: Negative or not required by law. Electronically signed by: Octaviano Garcia M.D. 11/10/2021 11:30 AM
[2021-11-10] MEDS ORDERED: Heparin IV Adult Wt-Based Standard WITH Bolus Protocol IV STA (12:22)
--- NOTE | 2021-11-10 12:34 | History & Physical Report ---
Date of Service November 10, 2021 Assessment & Plan (1) Acute pulmonary embolism: Plan: No hypoxia Started on heparin standard dose with bolus in the ER. Will continue on this. Since this is the first blood clot no need for hypercoagulable work-up at this time. Given bilateral leg swelling and unprovoked pulmonary emboli we will also get an ultrasound venous Doppler to assess for DVT. Avoid NSAIDs while taking anticoagulation. Acetaminophen 1st line, Tramadol 2nd line for pain. Potential discharge after switching to NOAC tomorrow. Recommend 6 months of treatment despite size given significant symptoms and unprovoked. (2) Hemoptysis: Plan: Suspect from pulmonary infarction. Monitor while on heparin IV drip. Procalcitonin negative. (3) Diabetes mellitus, type 2: Plan: HbA1C 7.4 in June, will repeat with AM labs BSG checks last admission did not require insulin Suspect she is just a high glycosylator given current glucose level 110 on admission is not suggestive of diabetes No need for BSG checks this admission but will keep on a type II diabetic diet. (4) Chronic obstructive pulmonary disease: Plan: Continue Dulera or hospital formulary equivalent Continue ipratropium nebulizers 3 times daily (her usual maintenance) (5) Chronic diastolic congestive heart failure: Plan: Continue Lasix 20mg PO daily. Does not appear to be in acute exacerbation at this time. (6) GERD (gastroesophageal reflux disease): Plan: On no medication for this but with history of nonbleeding ulcers. Monitor for symptoms of reflux. (7) Obstructive sleep apnea on CPAP: Plan: CPAP 12 cm H20 HS Plan: VTE Prophylaxis -Heparin IV Diet - T2DM, low-sodium Disposition - admit to med/tele Admission and Anticipated Discharge Date Admission Date: November 10, 2021 History of Present Illness Chief Complaint: Shortness of breath Primary Care Provider: NO PCP Deb Lara is a 56 year old female who presents to the ER with shortness of breath, chest and back pain starting 6 days ago. She reports initial symptoms of back/chest pain occurred in the middle of the night lasting 5 minutes worse on inspiration, lying flat, movement and palpation, worse at night The pain starts on the right-hand side of her back and radiates around the right side to her sternum. Associated intermittent hemoptysis and coughing She has had multiple intermittent episodes since occurring approximately once a day. She comes to the ER today due to worsening of this back/chest pain and hemoptysis. She denies any fevers or chills. In the ER she underwent CT for PE which showed a focal filling defect in the lateral basal segmental bronchus of the right lower lobe with adjacent focal wedge-shaped consolidation likely representing pulmonary infarct. She was started on heparin standard bolus and IV drip. No current hemoptysis, however her chest pain is ongoing. She was also treated for an asthma/COPD exacerbation with dexamethasone and DuoNeb prior to this diagnosis being made. She was referred to medicine for admission and ongoing management of pulmonary embolism. She denies any recent long-haul journeys or surgeries. She gets around outside with a mobility chair although is mobile in her house without aids. Allergies Allergy/AdvReac Type Severity Reaction Status Date / Time No Known Allergies Allergy Verified 11/10/21 10:25 Home Medications Medication Instructions Recorded Confirmed Type nitroglycerin 0.4 mg sublingual 0.4 mg SUBLINGUAL UD PRN 06/19/21 11/10/21 History tablet (Nitrostat) diclofenac sodium 1 % topical gel 2 g TOPICAL QID PRN 07/01/21 11/10/21 History albuterol sulfate 90 mcg/actuation 2 puff INHALATION Q6 PRN #18 g 08/19/21 11/10/21 Rx aerosol inhaler ipratropium bromide 17 2 puff INHALATION TID #12.9 g 08/19/21 11/10/21 Rx mcg/actuation HFA aerosol inhaler (Atrovent HFA) mometasone-formoterol HFA 200 2 puff INHALATION BID #13 g 08/19/21 11/10/21 Rx mcg-5 mcg/actuation aerosol inhaler (Dulera) furosemide 20 mg tablet 20 mg PO DAILY #7 tab 09/22/21 11/10/21 Rx ibuprofen 800 mg tablet 800 mg PO TID 09/22/21 11/10/21 History albuterol sulfate 2.5 mg INHALATION Q8H PRN #90 ml 10/27/21 11/10/21 Rx hydrocortisone 1 %-pramoxine 1 % 1 applic [place] BID PRN #10 g 10/27/21 11/10/21 Rx rectal foam (Proctofoam HC) Past Med/Surg History Medical History (Updated 11/10/21 @ 14:36 by Booker Rodriguez MD) Active asthma Arthritis of knee CHF (congestive heart failure) Chronic low back pain CSF leak Degeneration of cervical intervertebral disc Dizziness External hemorrhoids Frequent falls GERD (gastroesophageal reflux disease) Hemiplegic migraine History of tobacco abuse Left-sided chest pain Morbid obesity due to excess calories Obstructive sleep apnea Severe asthma with acute exacerbation TIA (transient ischemic attack) Urinary incontinence Vertebral artery stenosis Vitamin D deficiency Surgical History Facial fracture (2014) WITH RECONSTRUCTION History of bilateral tubal ligation History of cardiac cath X2 STENTS - (~2010, IN [place], [place]). NO STENTS - ([facility] @ ~2014) History of colonoscopy History of esophagogastroduodenoscopy (EGD) History of heart artery stent X2 STENTS (2010) UNSURE OF KIND. NO STENT CARDS PER PT. History of mandibular surgery S/P left knee arthroscopy S/p tibial fracture open treatment of Fx with plate/screws, Left leg Status post right foot surgery Family History Mother Breast cancer, Onset Age: 64 Type 2 diabetes mellitus Father Diabetes Coronary heart disease Type 2 diabetes mellitus Myocardial infarction, Onset Age: 52 Family/Other Hypertension sibling Denies family history of Ovarian cancer Social History Smoking Status: Current every day smoker Tobacco Type: Cigarettes Years Smoked: 40; Second Hand Exposure: Yes; Hx Alcohol Use: No Hx Substance Use: No Preferred Language: Mauritian Communication Ability: Effective Visual Impairment: No Limitations Gas Refrigerator Servicer Required: No Beliefs That Will Affect Care: None marital status: Current Living Situation: Spouse Feels Safe at Home: Yes Assistive Devices: CPAP and Nebulizer Review of Systems Review of Systems: All systems reviewed & are unremarkable except as noted in HPI & below Physical Exam Constitutional: well developed and + morbidly obese; no acute distress Eyes: + anicteric sclerae; normal pupil size ENMT: external ear and nose normal, oropharynx normal Neck: trachea midline, no thyromegaly Respiratory: normal respiratory effort; no respiratory distress, not tachypneic and no audible wheezes Auscultation: + diminished lung sounds (Right posteriorly); no crackles and no wheezes Cardiovascular: Rate/Rhythm: regular rhythm and + tachycardic Heart Sounds: no murmur Vessels: no JVD Extremities: normal capillary refill and + pedal edema (Trace ankles bilaterally); no calf tenderness Chest (Breasts): Additional Comments: Right chest wall painful to palpation Gastrointestinal (Abdomen): Percussion/Palpation: abdomen soft; abdomen nontender Musculoskeletal: no cyanosis or clubbing, extremities motor strength 5/5 Spine: + paraspinal tenderness (Right thoracic) Skin: no rashes, warm and dry Neurologic: moves all extremities and awake; not confused Psychiatric: Orientation: alert and oriented x 3 Eye Contact: good eye contact Affect: + tearful affect Results & Data Results & Data ([facility]) Vital Signs (Past 12 Hours) Vital Signs Temp Pulse Pulse Resp BP BP Pulse Ox 11/10/21 10:14 99 H 20 116/84 11/10/21 10:13 101 H 24 116/84 100 11/10/21 09:30 100 H 17 100 11/10/21 09:09 36.9 C 105 H 24 147/86 H 97 Laboratory Results Abnormal lab results 11/10/21 11/10/21 11/10/21 Range/Units 09:30 09:30 09:30 RBC 3.98 L (4.2-5.4) M/uL MCHC 31.3 L (32-36) g/dL RDW Std Deviation 54.2 H (36.4-46.3) fL RDW Coeff of Majo 15.2 H (11.5-14.5) % Chloride 111 H (98-107) mmol/L Glucose 110 H (70-99(Fasting)) mg/dl B-Natriuretic Peptide 644 H (0-100) pg/ml Diagnostic Findings XR chest 1V portable HISTORY: Atypical Chest Pain COMPARISON: Chest 09/22/2021. FINDINGS: No pneumothorax. The heart remains mildly enlarged. There is diffuse interstitial/vascular thickening and a trace right pleural effusion. This favors mild interstitial pulmonary edema. Hazy patchy airspace opacities have resolved in the interval. A new hazy airspace opacity within the right lateral lung base may be due to the suspected pleural effusion. Otherwise, no focal lung consolidations. IMPRESSION: 1. Cardiomegaly with mild interstitial pulmonary edema and a small right pleural effusion. 2. A new hazy airspace opacity within the right lateral lung base may be due to the pleural effusion. CHEST CTA for PULMONARY ARTERIES CT DOSE: 690.83 mGy.cm HISTORY: cough, blood tinged sputum, PE TECHNIQUE: Multiaxial CT images of the chest were performed following the intravenous administration of contrast to evaluate the pulmonary arteries. Maximal intensity projection images were also obtained. A dose lowering technique was utilized adhering to the principles of ALARA. COMPARISON STUDY: Chest CTA 09/22/2021. FINDINGS: There appears be a focal filling defect within the lateral basal segmental pulmonary artery of the right lower lobe best seen image 94. This is difficult to assess due to the mild motion artifact at this location. There is an associated focal wedge-shaped area of consolidation within the lateral basal segment of the right lower lobe. This appears to represent a pulmonary infarct. Therefore, the filling defect is suspicious for a pulmonary embolus. No additional filling defects within the remaining pulmonary arteries. The heart is enlarged. Mild retrograde opacification of the hepatic veins likely due to right-sided heart failure. No contrast within the thoracic aorta assess for a dissection. However, the thoracic aorta is normal in caliber. Small bilateral pleural effusions, right greater than left. The visualized liver, spleen, and adrenal glands unremarkable. Normal esophagus. A few prominent AP window lymph nodes. No hilar lymphadenopathy. No pericardial effusion. No fractures within the visualized osseous structures. No pneumothorax. Central airways are patent. Mild interlobular septal thickening consistent with mild pulmonary edema. This is most pronounced at the lung bases. IMPRESSION: 1. There appears to be a focal filling defect seen within the lateral basal segmental bronchus of the right lower lobe. This is suboptimally assessed due to the motion artifact. However, this most likely represents a pulmonary embolus given the adjacent focal wedge-shaped consolidation likely representing a pulmonary infarct. 2. Cardiomegaly, mild interstitial pulmonary edema, and small bilateral pleural effusions. Medications Administered ER Medications Given: Duoneb 3ml NEB Dexamethasone 10mg IV Acetaminophen 1g IV Famotidine 20mg IV ECG Indication: SOB/dyspnea Rate (beats per minute): 103 Rhythm: sinus tachycardia Findings: no acute ischemic change Comparison ECG Date: from (September 22, 2021) Change: no significant change Code Status & VTE Plan Code Status Full VTE Prophylaxis Plan VTE Prophylaxis will be ordered: Yes PG Care Time/CCT Total # of Minutes Spent Total Time Spent with Patient: Total time spent is greater than 50% in coordination of care (as documented) at patient's floor/unit and/or counseling patient: Coding Level of Care Code 73621 Initial Inpt Care Lvl 2 Diagnoses Acute pulmonary embolism I26.99 Diabetes mellitus, type 2 E11.65; Z79.4 Diabetes mellitus complication status: with hyperglycemia Diabetes mellitus watermelon inspector insulin use: with care home use Chronic obstructive pulmonary disease J44.1 COPD type: COPD with acute exacerbation Chronic diastolic congestive heart failure I50.32 GERD (gastroesophageal reflux disease) K21.9 Esophagitis presence: esophagitis presence not specified Obstructive sleep apnea on CPAP G47.33; Z99.89 Hemoptysis R04.2 (1) Diabetes mellitus, type 2 Diabetes mellitus complication status: with hyperglycemia Diabetes mellitus watermelon inspector insulin use: with watermelon inspector use Qualified Code(s): E11.65 - Type 2 diabetes mellitus with hyperglycemia; Z79.4 - alf (current) use of insulin (2) Chronic obstructive pulmonary disease COPD type: COPD with acute exacerbation Qualified Code(s): J44.1 - Chronic obstructive pulmonary disease with (acute) exacerbation (3) GERD (gastroesophageal reflux disease) Esophagitis presence: esophagitis presence not specified Qualified Code(s): K21.9 - Gastro-esophageal reflux disease without esophagitis
[2021-11-10] MEDS ORDERED: HEPARIN SOD (PORCINE) 1000 UNIT/ML IV ONE ×3 (12:37→23:30)
[2021-11-10] MEDS ORDERED: MoRPHine SULFATE 2 MG/ML CARP IV STA ×2 (12:49→20:13)
[2021-11-10] MEDS ORDERED: Heparin IV Adult Wt-Based Standard WITH Bolus Protocol IV SCH (13:10)
[2021-11-10] MEDS: HEPARIN SODIUM/DEXTROSE 25,000 UNITS/500 ML BAG IV SCH (13:30)
[2021-11-10 13:53] LABS: Partial Thromboplastin Ratio 0.8; Partial Thromboplastin Time 21.1 Seconds (21.0-31.0)
[2021-11-10] MEDS ORDERED: DICLOFENAC SOD 1% GEL 100 GM TUBE EXT PRN (13:54)
[2021-11-10] MEDS ORDERED: ALBUTEROL 0.083% NEBU SOLN 3 ML VIAL INH PRN (13:54)
[2021-11-10] MEDS ORDERED: IPRATROPIUM BROMIDE HFA INHALER INH SCH (14:00)
--- NOTE | 2021-11-10 14:02 | Electrocardiogram Report ---
Test Reason : Blood Pressure : / mmHG Vent. Rate : 103 BPM Atrial Rate : 103 BPM P-R Int : 150 ms QRS Dur : 076 ms QT Int : 360 ms P-R-T Axes : 020 010 045 degrees QTc Int : 471 ms Poor data quality, interpretation may be adversely affected Sinus tachycardia Otherwise normal ECG When compared with ECG of 22-SEP-2021 17:24, No significant change was found Confirmed by Mor Solis ([id number]) on 11/10/2021 2:02:34 PM Referred By: Confirmed By:Mor Solis
--- NOTE | 2021-11-10 16:46 | Emergency Department Note ---
Impression & Plan Pulmonary embolism and infarction, Pulmonary edema, Chronic obstructive pulmonary disease, Hemoptysis ED Provider Note NAME: CYRUS MUELLER AGE: 56 SEX: F ARRIVES VIA: Walk-In INFORMANT: Patient ED PROVIDER(S): Chino James MD CHIEF COMPLAINT: Shortness of breath, Right sided chest pain. PLAN: Disposition: Admit MEDICAL DECISION MAKING: The patient is a pleasant 56 y/o woman with pmhx of COPD, SMITA on CPAP, Tobacco use, dCHF who presents to the emergency department for worsening cough/congestion, sob, right sided cp and blood tinged sputum evolving over the past week. She reports intermittent nausea. She denies fevers, vomiting, d iarrhea, or urinary symptoms. She denies known Covid-19 exposures. She reports pain that is worse with inspiration of her right lower chest and mid-back. She does report she feels as though she has gained but is not sure if this is related to fluid retention. On arrival the patient is uncomfortable but in NAD, AF with HR in the 100s and VSS otherwise stable. O2 saturation is 95% and greater on RA, however she appears mildly dyspneic. She does appear hypervolemic. EKG without overt acute ischemia. CXR demonstrates pulmonary edema with small right pleural effusion. Additionally new opacity of right lung base is seen and was further clarifed on CT, which demonstrates suspected lateral basal segmental PE with likely associated pulmonary infarct. WBC, H/H, platelets wnl. Chemistry without acidosis. Electrolytes unremarkable. LFTs without significant abnormality. Troponin negative/undetectable. BNP 600s without prior for comparison. Covid-19 PCR negative. Influenza and RSV PCR negative. Findings were reviwed with the patient and she agrees with plan for admission. She denies history of GIB or bleeding otherwise. Heparin initiated given pulmonary infarct and hemoptysis. Case was d/w Dr. Rodriguez, [facility] [place] who will evaluate the patient for admission. Triage Nursing notes reviewed and agree them. Prior medical records reviewed Vital Signs: reviewed and remarkable for tachycardia. Differential diagnosis: Reactive airway disease, pneumonia, pneumothorax, COPD, CHF, infections, cardiac ischemia, pulmonary embolism, musculoskeletal, gastrointestinal, as well as other pathologies. ER treatment provided: See below. Diagnostics interpreted by me: ECG: Sinus tachycardia, 103 bpm, no ectopy, no overt ST elevation or depression. Cardiac Monitoring: An order for continuous cardiac monitoring was placed and demonstrated Sinus tachycardia, 103 bpm, no ectopy. Laboratory studies: See below Imaging studies: See below Consultation(s): Case was d/w Dr. Rodriguez, [facility] [place] who will evaluate the patient for admission. HPI: The patient is a pleasant 56 y/o woman with pmhx of COPD, SMITA on CPAP, Tobacco use, dCHF who presents to the emergency department for worsening cough/congestion, sob, right sided cp and blood tinged sputum evolving over the past week. She reports intermittent nausea. She denies fevers, vomiting, diarrhea, or urinary symptoms. She denies known Covid-19 exposures. She reports pain that is worse with inspiration of her right lower chest and mid-back. She does report she feels as though she has gained but is not sure if this is related to fluid retention. ROS: See above HPI for pertinent positives & negatives. A total of 10 systems reviewed and were otherwise negative. PAST MEDICAL HISTORY:See Below PAST SURGICAL HISTORY:See Below FAMILY HISTORY:See Below SOCIAL HISTORY:See Below HOME MEDICATIONS:See Below ALLERGIES:See Below VITALS:See Below PHYSICAL EXAMINATION: GENERAL: Awake, alert, uncomfortable-appearing, in no distress HENT: Normocephalic, atraumatic. Oropharynx unremarkable. EYES: Normal conjunctiva. Sclera non-icteric. NECK: Supple. No nuchal rigidity. FROM. No JVD. RESPIRATORY: Scant intermittent wheeze, diminished right lung base, otherwise, clear. Mildly dyspneic but in NAD. CARDIAC: Regular rate, normal rhythm. Extremities warm and well perfused. Pulses equal. ABDOMEN: Soft, non-distended. No tenderness to palpation. No rebound or guarding. No masses. RECTAL: Deferred. MUSCULOSKELETAL: Chest examination reveals no tenderness. The back is symmetrical on inspection without obvious abnormality. There is no CVA tenderness to palpation. No joint edema. LOWER EXTREMITIES: Calves are equal size bilaterally and non-tender. 1+ BLE edema. No discoloration. NEURO: Normal sensorium. No sensory or motor deficits noted. SKIN: No rash or jaundice noted. ED COURSE: Critical Care: I have personally spent greater than 45 minutes of critical care time in the direct management of this patient. This includes bedside care, interpretation of diagnostic studies, and testing, discussion with consultants, patient, and family members, and other required patient management activities. This 45 minutes is in excess of all separately billable procedures. Chino James MD Past Med/Surg History Medical History Active asthma Arthritis of knee CHF (congestive heart failure) Chronic low back pain CSF leak Degeneration of cervical intervertebral disc Dizziness External hemorrhoids Frequent falls GERD (gastroesophageal reflux disease) Hemiplegic migraine History of tobacco abuse Left-sided chest pain Morbid obesity due to excess calories Obstructive sleep apnea Severe asthma with acute exacerbation TIA (transient ischemic attack) Urinary incontinence Vertebral artery stenosis Vitamin D deficiency Surgical History Facial fracture (2014) WITH RECONSTRUCTION History of bilateral tubal ligation History of cardiac cath X2 STENTS - (~2010, [place], [place] NO STENTS - ([facility] @ ~2014) History of colonoscopy History of esophagogastroduodenoscopy (EGD) History of heart artery stent X2 STENTS (2010) UNSURE OF KIND. NO STENT CARDS PER PT. History of mandibular surgery S/P left knee arthroscopy S/p tibial fracture open treatment of Fx with plate/screws, Left leg Status post right foot surgery Family History Mother Breast cancer, Onset Age: 64 Type 2 diabetes mellitus Father Diabetes Coronary heart disease Type 2 diabetes mellitus Myocardial infarction, Onset Age: 52 Family/Other Hypertension sibling Denies family history of Ovarian cancer Social History Smoking Status: Former smoker Tobacco Type: Cigarettes Years Smoked: 40; Second Hand Exposure: Yes; Do You Dip or Chew Tobacco: No; Tobacco Cessation Education Requested by Patient: No Hx Alcohol Use: No Hx Substance Use: No Preferred Language: Panamanian Communication Ability: Effective Visual Impairment: No Limitations Applications Processor Required: No Beliefs That Will Affect Care: None marital status: Current Living Situation: Spouse Current Living Situation Comment: home with spouse. Other Information That Helps Us Care for You: No Feels Safe at Home: Yes Safety Concerns: Feels Safe At This Time Assistive Devices: Glasses Allergies Allergies Allergy/AdvReac Type Severity Reaction Status Date / Time No Known Allergies Allergy Verified 11/10/21 10:25 Home Meds Home Medications Medication Instructions Recorded Confirmed nitroglycerin 0.4 mg sublingual 0.4 mg SUBLINGUAL UD PRN 06/19/21 11/10/21 tablet (Nitrostat) diclofenac sodium 1 % topical gel 2 g TOPICAL QID PRN 07/01/21 11/10/21 ibuprofen 800 mg tablet 800 mg PO TID 09/22/21 11/10/21 Previous Rx's Medication Instructions Recorded albuterol sulfate 90 mcg/actuation 2 puff INHALATION Q6 PRN #18 g 08/19/21 aerosol inhaler ipratropium bromide 17 2 puff INHALATION TID #12.9 g 08/19/21 mcg/actuation HFA aerosol inhaler (Atrovent HFA) mometasone-formoterol HFA 200 2 puff INHALATION BID #13 g 08/19/21 mcg-5 mcg/actuation aerosol inhaler (Dulera) furosemide 20 mg tablet 20 mg PO DAILY #7 tab 09/22/21 albuterol sulfate 2.5 mg INHALATION Q8H PRN #90 ml 10/27/21 hydrocortisone 1 %-pramoxine 1 % 1 applic DC BID PRN #10 g 10/27/21 rectal foam (Proctofoam HC) Results & Data (ED) Vital Signs Vital Signs - 24 hr 11/10/21 09:09 11/10/21 09:30 11/10/21 10:13 Temperature 36.9 C Temperature Source Oral Pulse Rate 105 H 100 H Pulse Rate [Apical] 101 H Pulse Rhythm Regular Pulse Rhythm [Apical] Regular Pulse Strength Normal Pulse Strength [Apical] Normal Respiratory Rate 24 17 24 Respiratory Effort / Characteristics Non-Labored Spontaneous Labored Non-Labored Respiratory Depth Normal Shallow Normal Respiratory Pattern Regular Regular Regular Blood Pressure 147/86 H Blood Pressure [Right Arm] 116/84 Blood Pressure Mean 106 Blood Pressure Mean [Right Arm] 94 Blood Pressure Position Sitting Pulse Oximetry 97 100 100 Oxygen Delivery Method Room Air Room Air Oxygen Flow Rate 97 Sepsis Recent Fever Within 48 Hours No Sepsis New/Unexplained Change in Mental Status No Sepsis Action Taken by Nursing No Action Required 11/10/21 10:14 Temperature Temperature Source Pulse Rate 99 H Pulse Rate [Apical] Pulse Rhythm Pulse Rhythm [Apical] Pulse Strength Pulse Strength [Apical] Respiratory Rate 20 Respiratory Effort / Characteristics Respiratory Depth Respiratory Pattern Blood Pressure 116/84 Blood Pressure [Right Arm] Blood Pressure Mean 94 Blood Pressure Mean [Right Arm] Blood Pressure Position Pulse Oximetry Oxygen Delivery Method Oxygen Flow Rate Sepsis Recent Fever Within 48 Hours Sepsis New/Unexplained Change in Mental Status Sepsis Action Taken by Nursing Laboratory Data Attestation: I reviewed the patient's lab results. Result diagrams: 11/10/21 09:30 11/10/21 09:30 Lab Results 11/10/21 11/10/21 11/10/21 Range/Units 09:20 09:30 09:30 WBC 7.09 (4.8-10.8) K/uL RBC 3.98 L (4.2-5.4) M/uL Hgb 12.1 (12.0-16.0) g/dL Hct 38.6 (37-47) % MCV 97.0 (80-100) fL MCH 30.4 (25-34) pg MCHC 31.3 L (32-36) g/dL RDW Std Deviation 54.2 H (36.4-46.3) fL RDW Coeff of Majo 15.2 H (11.5-14.5) % Plt Count 376 (130-400) K/uL MPV 10.0 (7.4-10.4) fL Immature Gran % (Auto) 0.1 % Neut % (Auto) 62.7 % Lymph % (Auto) 30.5 % Fleming % (Auto) 5.6 % Eos % (Auto) 1.0 % Baso % (Auto) 0.1 % Neut # (Auto) 4.44 (1.4-6.5) K/uL Lymph # (Auto) 2.16 (1.2-3.4) K/uL Fleming # (Auto) 0.40 (0.11-0.59) K/uL Eos # (Auto) 0.07 (0-0.5) K/uL Baso # (Auto) 0.01 (0-0.2) K/uL Immature Gran # (Auto) 0.01 (0.00-0.02) K/uL PT 10.8 (9.0-12.0) Seconds INR 1.1 (0.9-1.1) APTT 21.1 (21.0-31.0) Seconds PTT Ratio 0.8 Sodium (136-145) mmol/L Potassium (3.5-5.1) mmol/L Chloride (98-107) mmol/L Carbon Dioxide (21-32) mmol/L Anion Gap (3-11) BUN (6-23) mg/dl Creatinine (0.6-1.2) mg/dl Est Cr Clr Drug Dosing ml/min Est GFR ( Amer) ml/min Est GFR (Non-Af Amer) ml/min BUN/Creatinine Ratio (10-20) Glucose (70-99(Fasting)) mg/dl Calcium (8.5-10.1) mg/dl Phosphorus (2.5-4.9) mg/dl Magnesium (1.7-2.4) mg/dl Total Bilirubin (0.2-1.0) mg/dl AST (13-39) U/L ALT (7-52) U/L Alkaline Phosphatase (34-104) U/L Troponin I (0-0.04) ng/ml B-Natriuretic Peptide (0-100) pg/ml Total Protein (6.0-8.3) gm/dl Albumin (3.4-5.0) gm/dl Globulin (2.5-4.0) gm/dl Albumin/Globulin Ratio (0.9-2) Lipase (11-82) U/L Procalcitonin (0-0.5) ng/ml SARS-CoV-2 (PCR) NEGATIVE (Negative) Influenza Type A (PCR) Negative (Neg) Influenza Type B (PCR) Negative (Neg) RSV (RT-PCR) Negative (Neg) 11/10/21 11/10/21 11/10/21 Range/Units 09:30 09:30 09:30 WBC (4.8-10.8) K/uL RBC (4.2-5.4) M/uL Hgb (12.0-16.0) g/dL Hct (37-47) % MCV (80-100) fL MCH (25-34) pg MCHC (32-36) g/dL RDW Std Deviation (36.4-46.3) fL RDW Coeff of Majo (11.5-14.5) % Plt Count (130-400) K/uL MPV (7.4-10.4) fL Immature Gran % (Auto) % Neut % (Auto) % Lymph % (Auto) % Fleming % (Auto) % Eos % (Auto) % Baso % (Auto) % Neut # (Auto) (1.4-6.5) K/uL Lymph # (Auto) (1.2-3.4) K/uL Fleming # (Auto) (0.11-0.59) K/uL Eos # (Auto) (0-0.5) K/uL Baso # (Auto) (0-0.2) K/uL Immature Gran # (Auto) (0.00-0.02) K/uL PT (9.0-12.0) Seconds INR (0.9-1.1) APTT (21.0-31.0) Seconds PTT Ratio Sodium 144 (136-145) mmol/L Potassium 4.0 (3.5-5.1) mmol/L Chloride 111 H (98-107) mmol/L Carbon Dioxide 27 (21-32) mmol/L Anion Gap 6 (3-11) BUN 14 (6-23) mg/dl Creatinine 0.80 (0.6-1.2) mg/dl Est Cr Clr Drug Dosing 99.5 ml/min Est GFR ( Amer) 94.9 ml/min Est GFR (Non-Af Amer) 81.8 ml/min BUN/Creatinine Ratio 17.5 (10-20) Glucose 110 H (70-99(Fasting)) mg/dl Calcium 9.2 (8.5-10.1) mg/dl Phosphorus 2.9 (2.5-4.9) mg/dl Magnesium 2.0 (1.7-2.4) mg/dl Total Bilirubin 0.3 (0.2-1.0) mg/dl AST 20 (13-39) U/L ALT 16 (7-52) U/L Alkaline Phosphatase 89 (34-104) U/L Troponin I < 0.03 (0-0.04) ng/ml B-Natriuretic Peptide 644 H (0-100) pg/ml Total Protein 7.3 (6.0-8.3) gm/dl Albumin 3.5 (3.4-5.0) gm/dl Globulin 3.8 (2.5-4.0) gm/dl Albumin/Globulin Ratio 0.9 (0.9-2) Lipase 25 (11-82) U/L Procalcitonin < 0.05 (0-0.5) ng/ml SARS-CoV-2 (PCR) (Negative) Influenza Type A (PCR) (Neg) Influenza Type B (PCR) (Neg) RSV (RT-PCR) (Neg) 11/10/21 Range/Units 09:30 WBC (4.8-10.8) K/uL RBC (4.2-5.4) M/uL Hgb (12.0-16.0) g/dL Hct (37-47) % MCV (80-100) fL MCH (25-34) pg MCHC (32-36) g/dL RDW Std Deviation (36.4-46.3) fL RDW Coeff of Majo (11.5-14.5) % Plt Count (130-400) K/uL MPV (7.4-10.4) fL Immature Gran % (Auto) % Neut % (Auto) % Lymph % (Auto) % Fleming % (Auto) % Eos % (Auto) % Baso % (Auto) % Neut # (Auto) (1.4-6.5) K/uL Lymph # (Auto) (1.2-3.4) K/uL Fleming # (Auto) (0.11-0.59) K/uL Eos # (Auto) (0-0.5) K/uL Baso # (Auto) (0-0.2) K/uL Immature Gran # (Auto) (0.00-0.02) K/uL PT (9.0-12.0) Seconds INR (0.9-1.1) APTT Cancelled (21.0-31.0) Seconds PTT Ratio Cancelled Sodium (136-145) mmol/L Potassium (3.5-5.1) mmol/L Chloride (98-107) mmol/L Carbon Dioxide (21-32) mmol/L Anion Gap (3-11) BUN (6-23) mg/dl Creatinine (0.6-1.2) mg/dl Est Cr Clr Drug Dosing ml/min Est GFR ( Amer) ml/min Est GFR (Non-Af Amer) ml/min BUN/Creatinine Ratio (10-20) Glucose (70-99(Fasting)) mg/dl Calcium (8.5-10.1) mg/dl Phosphorus (2.5-4.9) mg/dl Magnesium (1.7-2.4) mg/dl Total Bilirubin (0.2-1.0) mg/dl AST (13-39) U/L ALT (7-52) U/L Alkaline Phosphatase (34-104) U/L Troponin I (0-0.04) ng/ml B-Natriuretic Peptide (0-100) pg/ml Total Protein (6.0-8.3) gm/dl Albumin (3.4-5.0) gm/dl Globulin (2.5-4.0) gm/dl Albumin/Globulin Ratio (0.9-2) Lipase (11-82) U/L Procalcitonin (0-0.5) ng/ml SARS-CoV-2 (PCR) (Negative) Influenza Type A (PCR) (Neg) Influenza Type B (PCR) (Neg) RSV (RT-PCR) (Neg) Administered Medications Acetaminophen (Acetaminophen 325 Mg Tab) 650 mg PO Q4H PRN PRN Reason: Pain or Fever Stop: 12/10/21 13:53 Last Admin: 11/10/21 17:45 Dose: 650 mg Documented by: [id number] Heparin Sodium/Dextrose (Heparin Sodium/Dextrose) 25,000 units in 500 mls @ 29 mls/hr IV .[id number] [facility]; Protocol Stop: 12/10/21 12:44 Last Titration: 11/10/21 18:59 Dose: 1,450 units/hr, 29 mls/hr Documented by: [id number] Cosigned by: [id number] Admin: 11/10/21 13:30 Dose: 1,450 units/hr, 29 mls/hr Documented by: [id number] Cosigned by: [id number] Tramadol HCl (Tramadol Hcl 50 Mg Tablet) 50 mg PO Q4H PRN PRN Reason: Pain Stop: 12/10/21 14:38 Last Admin: 11/10/21 17:45 Dose: 50 mg Documented by: [id number] Discontinued Medications Albuterol (Albut/Ipratrop 3mg/0.5mg Neb 3 Ml Vial) 3 ml NEB NOW STA; Protocol Stop: 11/10/21 09:53 Last Admin: 11/10/21 10:05 Dose: 3 ml Documented by: [id number] Albuterol (Albuterol 0.083% Nebu Soln 3 Ml Vial) 2.5 mg INH Q8R PRN; Protocol PRN Reason: bronchospasm Stop: 12/10/21 13:53 Last Admin: 11/10/21 17:48 Dose: 2.5 mg Documented by: [id number] Dexamethasone Sodium Phosphate (DexamethasonePf 10 Mg/Ml Vial) 10 mg IV NOW ONE Stop: 11/10/21 09:53 Last Admin: 11/10/21 10:51 Dose: 10 mg Documented by: [id number] Heparin Sodium (Porcine) (Heparin Sod (Porcine) 1000 Unit/Ml) 6,000 units IV NOW ONE Stop: 11/10/21 13:31 Last Admin: 11/10/21 13:31 Dose: 6,000 units Documented by: [id number] Cosigned by: [id number] Heparin Sodium/Dextrose (Heparin Iv Adult Wt-Based Standard With Bolus Protocol) 1 ea IV NOW STA; Protocol Stop: 11/10/21 12:23 Last Admin: 11/10/21 13:33 Dose: 1 ea Documented by: [id number] Acetaminophen (Ofirmev) 1,000 mg in 100 mls @ 400 mls/hr IV NOW STA Stop: 11/10/21 10:06 Last Infusion: 11/10/21 12:00 Dose: 0 mls/hr Documented by: [id number] Admin: 11/10/21 10:51 Dose: 400 mls/hr Documented by: [id number] Famotidine (Pepcid 20mg Iv Push) 20 mg in 5 mls @ 2.5 mls/min IV NOW STA Stop: 11/10/21 09:53 Last Admin: 11/10/21 10:51 Dose: 2.5 mls/min Documented by: [id number] Ioversol (Optiray 320 125ml) 120 ml IV ONCE ONE Stop: 11/10/21 10:44 Last Admin: 11/10/21 10:43 Dose: 120 ml Documented by: [id number] Ipratropium Oakman (Ipratropium Oakman Hfa Inhaler) 2 puffs INH TIDR KARLA Stop: 12/10/21 13:59 Last Admin: 11/10/21 14:38 Dose: 2 puffs Documented by: [id number] Morphine Sulfate (Morphine Sulfate 2 Mg/Ml Carp) 2 mg IV NOW STA Stop: 11/10/21 12:50 Last Admin: 11/10/21 13:11 Dose: 2 mg Documented by: [id number] Morphine Sulfate (Morphine Sulfate 2 Mg/Ml Carp) 1 mg IV NOW STA Stop: 11/10/21 20:14 Last Admin: 11/10/21 20:45 Dose: 1 mg Documented by: [id number] Imaging Data Radiologist's Impression: Chest CTA 11/10/21 09:52 CHEST CTA for PULMONARY ARTERIES CT DOSE: 690.83 mGy.cm HISTORY: cough, blood tinged sputum, PE TECHNIQUE: Multiaxial CT images of the chest were performed following the intravenous administration of contrast to evaluate the pulmonary arteries. Maximal intensity projection images were also obtained. A dose lowering techn ique was utilized adhering to the principles of ALARA. COMPARISON STUDY: Chest CTA 09/22/2021. FINDINGS: There appears be a focal filling defect within the lateral basal segmental pulmonary artery of the right lower lobe best seen image 94. This is difficult to assess due to the mild motion artifact at this location. There is an associated focal wedge-shaped area of consolidation within the lateral basal segment of the right lower lobe. This appears to represent a pulmonary infarct. Therefore, the filling defect is suspicious for a pulmonary embolus. No additional filling defects within the remaining pulmonary arteries. The heart is enlarged. Mild retrograde opacification of the hepatic veins likely due to right-sided heart failure. No contrast within the thoracic aorta assess for a dissection. However, the thoracic aorta is normal in caliber. Small bilateral pleural effusions, right greater than left. The visualized liver, spleen, and adrenal glands unremarkable. Normal esophagus. A few prominent AP window lymph nodes. No hilar lymphadenopathy. No pericardial effusion. No fractures within the visualized osseous structures. No pneumothorax. Central airways are patent. Mild interlobular septal thickening consistent with mild pulmonary edema. This is most pronounced at the lung bases. IMPRESSION: 1. There appears to be a focal filling defect seen within the lateral basal segm ental bronchus of the right lower lobe. This is suboptimally assessed due to the motion artifact. However, this most likely represents a pulmonary embolus given the adjacent focal wedge-shaped consolidation likely representing a pulmonary infarct. 2. Cardiomegaly, mild interstitial pulmonary edema, and small bilateral pleural effusions. ACT 112: Negative or not required by law. Electronically signed by: Octaviano Garcia M.D. 11/10/2021 11:30 AM Discharge Plan Visit Data Chief Complaint: Shortness of Breath/Dyspnea Stated Complaint: sob, chest pain, blood in mucus ED Provider: Chino James Discharge Problem: Pulmonary embolism and infarction, Pulmonary edema, Chronic obstructive pulmonary disease, Hemoptysis Patient Disposition: Admitted As Inpatient Discharge Instructions Interventions: ED Discharge Assessment Last Done: 11/10/21 15:23 Discharge Problem: Pulmonary edema Qualifiers: Chronicity: acute Qualified Code(s): J81.0 - Acute pulmonary edema
--- NOTE | 2021-11-10 17:10 | Ultrasound Report ---
US venous doppler LE BI CLINICAL HISTORY: unprovoked PE, b/l leg swelling and pain, evaluate for DVT COMPARISON: None available at the time of this dictation. TECHNIQUE: Bilateral lower extremity real-time compression venous ultrasound with Color Doppler imagi ng. Utilizing real-time ultrasonic imaging multiple real time high-resolution ultrasonic images with comp ression and noncompression maneuvers of the deep venous system in addition to color doppler imaging w ere performed from the common femoral vein through the proximal calf veins. FINDINGS: Currently there is normal compressibility of the deep venous system from the common femoral vein thro ugh the proximal calf veins. No current evidence of acute thrombosis is identified. Impression: No evidence of deep venous thrombus. ACT 112: Negative or not required by law. Electronically signed by: Dwayne Maldonado M.D. 11/10/2021 5:09 PM
[2021-11-10] MEDS: traMADol HCL 50 MG TABLET PO PRN (17:45)
[2021-11-10] MEDS: ACETAMINOPHEN 325 MG TAB PO PRN (17:45)
[2021-11-10] MEDS: ALBUT/IPRATROP 3MG/0.5MG NEB 3 ML VIAL NEB PRN (22:59)
[2021-11-10 23:00] LABS: Partial Thromboplastin Ratio 1.4; Partial Thromboplastin Time 36.2 Seconds (21.0-31.0)
[2021-11-11] MEDS: ALBUT/IPRATROP 3MG/0.5MG NEB 3 ML VIAL NEB SCH ×5 (01:02→20:49)
[2021-11-11] MEDS: HEPARIN SODIUM/DEXTROSE 25,000 UNITS/500 ML BAG IV SCH ×3 (03:30→21:54)
[2021-11-11] MEDS: traMADol HCL 50 MG TABLET PO PRN ×2 (05:26→20:41)
[2021-11-11] MEDS: ALBUT/IPRATROP 3MG/0.5MG NEB 3 ML VIAL NEB PRN (05:28)
[2021-11-11 05:54] LABS: Basophils # (auto) 0.01 K/uL (0-0.2); Basophils % (auto) 0.1 %; Hematocrit (blood only) 36.6 % (37-47); Hemoglobin 11.5 g/dL (12.0-16.0); Immature Granulocytes # (auto) 0.02 K/uL (0.00-0.02); Immature Granulocytes % (auto) 0.2 %; Lymphocytes # (auto) 2.38 K/uL (1.2-3.4); Lymphocytes % (auto) 20.1 %; Mean Corpuscular Hemoglobin 30.3 pg (25-34); Mean Corpuscular Hgb Conc 31.4 g/dL (32-36); Mean Corpuscular Volume 96.6 fL (80-100); Mean Platelet Volume 10.7 fL (7.4-10.4); Monocytes # (auto) 0.47 K/uL (0.11-0.59); Neutrophils # (auto) 8.94 K/uL (1.4-6.5); Neutrophils % (auto) 75.6 %; Platelet Count 356 K/uL (130-400); RDW Standard Deviation 53.2 fL (36.4-46.3); Red Blood Count 3.79 M/uL (4.2-5.4); White Blood Count 11.82 K/uL (4.8-10.8)
[2021-11-11 06:04] LABS: Partial Thromboplastin Ratio 1.7; Partial Thromboplastin Time 44.5 Seconds (21.0-31.0)
[2021-11-11 06:09] LABS: BUN Creatinine Ratio 22.2 (10-20); Creatinine Clr Calc Pharmacy 109.7 ml/min; Est GFR (African American) 107.7 ml/min; Potassium 4.3 mmol/L (3.5-5.1)
[2021-11-11] MEDS ORDERED: FUROSEMIDE INJ 20 MG/2 ML VIAL IV ONE (08:10)
[2021-11-11] MEDS ORDERED: GLUCOSE 10 TABS/TUBE PO PRN (08:19)
[2021-11-11] MEDS ORDERED: DEXTROSE 50% 50 ML SYRINGE IV PRN (08:19)
[2021-11-11] MEDS ORDERED: GLUCAGON FOR INJ 1 MG VIAL SQ PRN (08:19)
[2021-11-11] MEDS ORDERED: CARBOHYDRATES FOR HYPOGLYCEMIA PO PRN (08:19)
[2021-11-11] MEDS ORDERED: GLUCOSE 40% GEL 15 GM TUBE PO PRN (08:19)
[2021-11-11] MEDS ORDERED: methylPREDNISolone 125 MG in SYRINGE 0 ML IV ONE (08:45)
[2021-11-11] MEDS ORDERED: FLUTICASONE/VILANTEROL 200/25MCG 14 PUFFS/INHALER INH SCH (09:00)
[2021-11-11] MEDS ORDERED: FUROSEMIDE 20 MG TAB PO SCH (09:00)
[2021-11-11] MEDS: FORMOTEROL 20 MCG/2 ML VIAL NEB SCH ×2 (11:02→19:22)
[2021-11-11] MEDS: BUDESONIDE 0.5 MG/2 ML VIAL (PULMICORT) NEB SCH ×2 (11:03→19:22)
[2021-11-11] MEDS: NICOTINE 21 MG/24 HR TDSY TD SCH (11:25)
[2021-11-11] MEDS: INSULIN ASPART PER UNIT SC SCH ×3 (12:43→20:42)
[2021-11-11 13:19] LABS: Estimated Average Glucose 177 mg/dl; Hemoglobin A1C 7.8 % (4.5-5.6)
[2021-11-11 13:45] LABS: Partial Thromboplastin Ratio 1.5; Partial Thromboplastin Time 38.6 Seconds (21.0-31.0)
[2021-11-11] MEDS: ACETAMINOPHEN 325 MG TAB PO PRN (14:55)
[2021-11-11] MEDS ORDERED: HEPARIN SOD (PORCINE) 1000 UNIT/ML IV ONE (14:57)
[2021-11-11] MEDS: methylPREDNISolone 40 MG in SYRINGE 0 ML IV SCH (17:26)
--- NOTE | 2021-11-11 18:46 | Hospitalist Progress Note ---
Date of Service November 11, 2021 Assessment & Plan (1) Acute pulmonary embolism: Plan: * No hypoxia * Started on heparin standard dose with bolus in the ER. Continue this with likely plan to transition to oral DOAC tomorrow. Given her age and likelihood for not taking a twice daily medication, will likely consider Xarelto. Although will be twice daily upfront, will then transition to once a day * This DVT was unprovoked thus I would recommend lifelong anticoagulation therapy. Would need treatment dose for minimum of 6 months with likely transition to prevention dosing lifelong * No need to do a hypercoagulable panel at this point in time as would be skewed simply from clot burden and from heparin on board. May consider stopping anticoagulation therapy in 6 months to test. Recommend referral to Dr. Lozano to help determine long-term treatment * Venous Doppler negative for DVT * Will obtain an echocardiogram to further assess for LV function (2) Hemoptysis: Plan: * Likely secondary to #1 (3) Bronchospasm: Plan: * Patient with audible wheezes today noted on exam * Imaging does show concern for mild pulmonary vascular congestion and her BNP was slightly elevated in the 600s * Likely does have a component of mild volume overload which could be contributing to her hemoptysis * Will give 1 dose of IV Lasix today and continue oral Lasix starting tomorrow * In addition, she may have an exacerbation of her asthma * Start IV Solu-Medrol and nebulized treatments * She is not hypoxic or requiring supplemental oxygen * Will monitor (4) Diabetes mellitus, type 2: Plan: * repeat A1C * She is now on Solu-Medrol for #3 and will likely have elevated blood sugars as a result * Start Lantus and analog with close blood sugar monitoring and sliding scale/correction dosing for coverage * (5) Chronic obstructive pulmonary disease: Plan: * Routine inhalers have been transitioned to nebulized treatments for now given the acute bronchospasm (6) Chronic diastolic congestive heart failure: Plan: * Again, 1 dose of IV Lasix now with resumption of oral Lasix tomorrow * Does not appear to be in fulminant CHF * Echo being updated (7) GERD (gastroesophageal reflux disease): Plan: On no medication for this but with history of nonbleeding ulcers. Monitor for symptoms of reflux. (8) Obstructive sleep apnea on CPAP: Plan: CPAP 12 cm H20 HS Plan: VTE Prophylaxis -Heparin IV Diet - T2DM, low-sodium Disposition - admit to med/tele Admission and Anticipated Discharge Date Admission Date: November 10, 2021 Subjective Patient seen on daily rounds today. Reports feeling short of breath especially with minimal exertion such as eating/toileting. She is not requiring supplemental oxygen. She denies fevers, chills, chest pain, orthopnea, PND, abdominal pain, nausea or vomiting. Nursing voices no complaints or concerns. Upon further questioning, patient denies recent surgery, recent travel, personal, and/or family history of DVT, PE, blood dyscrasia. She is not up-to-date with her age-appropriate cancer screening as she is past due for her mammogram and Pap smear both. She is up-to-date with her colonoscopy. Review of Systems Review of Systems: All systems reviewed and are unremarkable except as noted in HPI and below Denies fevers, chills, headache, nasal congestion, sore throat, cough, chest pain, palpitations, orthopnea, PND, abdominal pain, nausea, vomiting, diarrhea, constipation, dysuria, hematuria, frequency, back pain, joint pain or swelling, easy bruising or bleeding, skin lesions or rashes. Physical Exam Physical Exam: General: Sitting upright at the side of her bed eating breakfast. She appears winded with audible wheezes at bedside HEENT: Head is AT/NC buccal mucosa is moist and pink Neck: No JVD. Negative hepatojugular reflex Cardiac: Distant heart sounds Lungs: Appears slightly dyspneic without accessory muscle use. Audible wheezes at bedside. Diminished breath sounds throughout with mid to end expiratory wheezes scattered throughout. No rales or rhonchi. Abdomen: Normoactive X4. Soft and nontender in all quadrants. Extremities: No peripheral clubbing cyanosis or edema Neuro: A&O X4 cranial nerves II through XII are grossly intact no focal neuro deficits Skin: No obvious skin lesions or rashes Psych: Appropriate affect pleasant and cooperative Results & Data Results & Data ([facility]) Vital Signs (Past 12 Hours) Vital Signs Temp Pulse Pulse Resp BP Pulse Ox 11/11/21 15:54 104 H 11/11/21 14:42 37.2 C 102 H 16 139/83 98 11/11/21 11:03 97 H 26 H 94 11/11/21 11:00 36.7 C 99 H 20 119/75 96 11/11/21 07:35 82 18 11/11/21 07:33 36.5 C 95 H 16 132/80 98 11/11/21 07:28 93 H Laboratory Results 11/11/21 05:15 11/11/21 05:15 PG Care Time/CCT Total # of Minutes Spent Total Time Spent with Patient: Total time spent is greater than 50% in coordination of care (as documented) at patient's floor/unit and/or counseling patient: Coding Level of Care Code 07349 Subseq Hosp Care Lvl 2 Diagnoses Acute pulmonary embolism I26.99 Hemoptysis R04.2 Diabetes mellitus, type 2 E11.65; Z79.4 Diabetes mellitus chcf insulin use: with meterman use Diabetes mellitus complication status: with hyperglycemia Chronic obstructive pulmonary disease J44.9 Chronic diastolic congestive heart failure I50.32 GERD (gastroesophageal reflux disease) K21.9 Esophagitis presence: esophagitis presence not specified Obstructive sleep apnea on CPAP G47.33; Z99.89 Bronchospasm J98.01 (1) Diabetes mellitus, type 2 Diabetes mellitus chcf insulin use: with meterman use Diabetes mellitus complication status: with hyperglycemia Qualified Code(s): E11.65 - Type 2 diabetes mellitus with hyperglycemia; Z79.4 - retirement (current) use of insulin (2) GERD (gastroesophageal reflux disease) Esophagitis presence: esophagitis presence not specified Qualified Code(s): K21.9 - Gastro-esophageal reflux disease without esophagitis
--- NOTE | 2021-11-11 18:56 | XCELERA ---
[id number]
[2021-11-11] MEDS ORDERED: INSULIN GLARGINE SOLOSTAR 100 UNITS/ML 3 ML PEN SC SCH (21:00)
[2021-11-11 21:34] LABS: Partial Thromboplastin Ratio 1.4; Partial Thromboplastin Time 36.6 Seconds (21.0-31.0)
[2021-11-11] MEDS ORDERED: HEPARIN IV BOLUS 3,000 UNITS in SYRINGE 0 ML IV ONE (22:00)
[2021-11-11] MEDS: BENZONATATE 100 MG CAPSULE PO PRN (22:42)
[2021-11-12] MEDS: ALBUT/IPRATROP 3MG/0.5MG NEB 3 ML VIAL NEB SCH ×3 (00:01→12:52)
[2021-11-12] MEDS: methylPREDNISolone 40 MG in SYRINGE 0 ML IV SCH (04:00)
[2021-11-12 04:20] LABS: Hematocrit (blood only) 35.2 % (37-47); Hemoglobin 10.9 g/dL (12.0-16.0); Immature Granulocytes # (auto) 0.03 K/uL (0.00-0.02); Immature Granulocytes % (auto) 0.2 %; Lymphocytes # (auto) 1.72 K/uL (1.2-3.4); Lymphocytes % (auto) 11.8 %; Mean Corpuscular Hemoglobin 30.4 pg (25-34); Mean Corpuscular Volume 98.1 fL (80-100); Mean Platelet Volume 10.6 fL (7.4-10.4); Monocytes # (auto) 0.48 K/uL (0.11-0.59); Monocytes % (auto) 3.3 %; Neutrophils # (auto) 12.38 K/uL (1.4-6.5); Neutrophils % (auto) 84.7 %; Platelet Count 338 K/uL (130-400); RDW Coefficient of Variation 15.4 % (11.5-14.5); RDW Standard Deviation 55.3 fL (36.4-46.3); Red Blood Count 3.59 M/uL (4.2-5.4); White Blood Count 14.61 K/uL (4.8-10.8)
[2021-11-12 04:40] LABS: BUN Creatinine Ratio 28.6 (10-20); Calcium 9.1 mg/dl (8.5-10.1); Creatinine Clr Calc Pharmacy 112.9 ml/min; Est GFR (African American) 111.5 ml/min; Est GFR (Non-African American) 96.2 ml/min; Magnesium 2.2 mg/dl (1.7-2.4); Potassium 4.4 mmol/L (3.5-5.1)
[2021-11-12 04:51] LABS: Partial Thromboplastin Ratio 1.9
[2021-11-12 04:56] LABS: Partial Thromboplastin Time 49.6 Seconds (21.0-31.0)
[2021-11-12] MEDS: traMADol HCL 50 MG TABLET PO PRN (06:32)
[2021-11-12] MEDS: BUDESONIDE 0.5 MG/2 ML VIAL (PULMICORT) NEB SCH (07:12)
[2021-11-12] MEDS: FORMOTEROL 20 MCG/2 ML VIAL NEB SCH (07:12)
[2021-11-12] MEDS: NICOTINE 21 MG/24 HR TDSY TD SCH (07:58)
[2021-11-12] MEDS: HEPARIN SODIUM/DEXTROSE 25,000 UNITS/500 ML BAG IV SCH (07:59)
[2021-11-12] MEDS: BENZONATATE 100 MG CAPSULE PO PRN (08:04)
[2021-11-12] MEDS: INSULIN ASPART PER UNIT SC SCH ×2 (08:14→13:16)
[2021-11-12] MEDS ORDERED: STOP ORDER: HEPARIN INFUSION ONE (08:59)
[2021-11-12] MEDS ORDERED: RIVAROXABAN 15 MG TAB PO SCH (09:00)
[2021-11-12 12:24] VITALS: TEMP 97.5; O2SAT 96
[2021-11-12 12:57] VITALS: PULSE 92
[2021-11-12 13:47] VITALS: BP 163/107
--- NOTE | 2021-11-12 14:51 | Discharge Summary ---
Date of Service November 12, 2021 Admission HPI Per Admitting Provider Deb Lara is a 56 year old female who presents to the ER with shortness of breath, chest and back pain starting 6 days ago. She reports initial symptoms of back/chest pain occurred in the middle of the night lasting 5 minutes worse on inspiration, lying flat, movement and palpation, worse at night The pain starts on the right-hand side of her back and radiates around the right side to her sternum. Associated intermittent hemoptysis and coughing She has had multiple intermittent episodes since occurring approximately once a day. She comes to the ER today due to worsening of this back/chest pain and hemoptysis. She denies any fevers or chills. In the ER she underwent CT for PE which showed a focal filling defect in the lateral basal segmental bronchus of the right lower lobe with adjacent focal wedge-shaped consolidation likely representing pulmonary infarct. She was started on heparin standard bolus and IV drip. No current hemoptysis, however her chest pain is ongoing. She was also treated for an asthma/COPD exacerbation with dexamethasone and DuoNeb prior to this diagnosis being made. She was referred to medicine for admission and ongoing management of pulmonary embolism. She denies any recent long-haul journeys or surgeries. She gets around outside with a mobility chair although is mobile in her house without aids. Principal Diagnosis 1. Acute Pulmonary Embolism 2. Pulmonary Infarction 3. Acute Bronchospasm-- suspect slightly Volume Overload and Asthma Exacerbation 4. Hemoptysis- resolved Discharge Exam General: Sitting upright in bed. In NAD HEENT: Head is AT/NC buccal mucosa is moist and pink Neck: No JVD. Negative hepatojugular reflex Cardiac: Distant heart sounds Lungs: Breathing comfortably on RA. Normal Respiratory effort. Improved air exchange with end expiratory wheezes in the bases. Abdomen: Normoactive X4. Soft and nontender in all quadrants. Extremities: No peripheral clubbing cyanosis or edema Neuro: A&O X4 cranial nerves II through XII are grossly intact no focal neuro deficits Skin: No obvious skin lesions or rashes Psych: Appropriate affect pleasant and cooperative Discharge Data Allergies Allergy/AdvReac Type Severity Reaction Status Date / Time No Known Allergies Allergy Verified 11/10/21 10:25 Consultations 11/10/21 12:11 ED Decision to Admit Stat Ordered Studies 11/10/21 09:52 CT angio chest PE protocol Stat IMPRESSION: 1. There appears to be a focal filling defect seen within the lateral basal segmental bronchus of the right lower lobe. This is suboptimally assessed due to the motion artifact. However, this most likely represents a pulmonary embolus given the adjacent focal wedge-shaped consolidation likely representing a pulmonary infarct. 2. Cardiomegaly, mild interstitial pulmonary edema, and small bilateral pleural effusions. 11/10/21 14:22 US venous doppler LE BI Routine Impression: No evidence of deep venous thrombus. Hospital Course (1) Acute pulmonary embolism: * 56 y/o WF without no personal and/or family h/o DVT/PE, blood dyscrasia who presented with hemoptysis, SOB and pleurisy * Was found to have a RLL PE with associated infarction. * No hypoxemia * UNPROVOKED- for recent travel, surgery, has h/o covid but >1 year ago, is NOT UTD with age appropriate cancer screen (past due for mammo/pap) * hospitalized on heparin gtt * Venous Doppler negative for DVT * Echocardiogram performed showing no evidence of right-sided heart strain * Hypercoagulable panel not obtained as would be skewed in the setting of acute clot. In addition, had already been started on a heparin drip by ED staff. This is an unprovoked PE and would likely advise lifelong anticoagulation therapy * Patient has remained hemodynamically stable and plan is to transition heparin drip to Xarelto for which she should take 15 mg twice daily for 21 days then transition to 20 mg daily (did run a dummy prescription through the insurance and Xarelto is preferred over Eliquis). * After 6 months time, may consider transition to prevention dose Xarelto. Would recommend referral to anticoagulation clinic with Dr. Lozano to help give recommendations regarding lifelong anticoagulation therapy. May consider discontinuation of Xarelto in 6 months and obtaining a hypercoagulable panel then * Tramadol has been utilized for the pleurisy (2) Hemoptysis: * Likely secondary to #1 (3) Bronchospasm: * Patient with audible wheezes when see on 11/11 * Imaging does show concern for mild pulmonary vascular congestion and her BNP was slightly elevated in the 600s * Likely does have a component of mild volume overload which could be contributing to her hemoptysis * given 1 dose IV lasix and her oral lasix resumed * In addition, she may have an exacerbation of her asthma * IV Solumedrol given along with nebulized treatments. * seen in FU on 11/12. Is responding favorably. SOB improved. still with end expiratory wheezes in the bases but significantly improved. * Stable for discharge to home with continued prednisone taper, nebulized treatments. In addition, patient requesting prescription for Tessalon Perles to use as needed (4) Diabetes mellitus, type 2: * a1c 7.8% * Lengthy discussion with patient regarding the importance of good glycemic control and dietary compliance * Patient did have steroid-induced hyperglycemia for which analog insulin utilized * Discussion with patient that she will likely have continued hyperglycemia whkedar e on prednisone but this is being quickly tapered. * follow up with PCP regarding this issues (5) Chronic obstructive pulmonary disease: * Routine inhalers transitioned to nebulized treatments while in house * transition back to routine inhalers with nebulized treatments PRN at this time (6) Chronic diastolic congestive heart failure: * Again, 1 dose of IV Lasix now with resumption of oral Lasix * Does not appear to be in fulminant CHF, seems euvolemic today * Echo updated. No evidence of right heart strain. EF 50 to 55% with mild concentric LV hypertrophy. Severe left atrial dilation. Severe mitral regurgitation. Mild pulmonary hypertension. (7) GERD (gastroesophageal reflux disease): * On no medication for this * It is reported that she has a history of gastric ulcers * Given the addition of anticoagulation therapy, I have started her on Protonix to help with GI prophylaxis * I have encouraged that she hold off on the routine ibuprofen as this will increase the risk of bleeding ulcers especially in conjunction with anticoagulation therapy (8) Obstructive sleep apnea on CPAP: CPAP 12 cm H20 HS Total Time Total Time Spent Total Time Spent (In Minutes): 45 minutes including time spent with patient, discussion with attending physician, coordination of care, calling pharmacy to determine which DOAC was covered by insurance and preparation of documentation Discharge Plan Discharge Items Patient Disposition: Home - Self-Care Reason For Visit: ACUTE PE Discharge Diagnosis: 1. Acute Pulmonary Embolism with Pulmonary Infarction 2. Acute Asthma Exacerbation 3. Mild Volume Overload Activity: Resume your previous activity Non-emergency contact: Primary Care Provider Call non-emergency contact if: you have any medication questions and your s ymptoms worsen Follow-up/Referrals: Nita Torres MD [Primary Care Provider] - 11/22/21 2:00 pm Diet: Carb Consistent or DM2 Addtl Attending Provider Instructions: * you were hospitalized with a pulmonary embolism (blood clot in your lung) and associated pulmonary infarction which is what was/is causing your pain (this is injury to the lung tissue from lack of blood/oxygen on account of the blood clot) * you have been started on a blood thinner to treat the blood clot (Xarelto). This was chosen specifically as although it is twice a day upfront, it ends up being once a day and as discussed, convenience of this makes it less likely to miss doses * Xarelto is 15mg twice a day for 21 days (next dose due tonight) and then AFTER completing this, is changes to 20mg daily (should be taken with dinner) * given this being an UNPROVOKED clot, I would advised lifelong anticoagulation therapy but not necessarily treatment dose. After 6 months, can consider having the dose adjusted to 10mg daily (prevention dosing). This is at the discretion of your Family Physician. Consider a referral to Dr. Lozano (who specializes in clotting issues/blood thinners) * a hypercoagulable panel was not done in this hospital as results can he skewed just from the clot itself but also from the blood thinner that has already been started. * Ultram is for pain and can be utilized as needed for this pain that you continue to experience in the chest (from the blood clot and tissue injury). This may will continue to improve with resolution of the clot (which will continue to dissipate and be reabsorbed) * Also, you need to be updated on your age appropriate cancer screening (Mammo/PAP) * In addition to this clot, you were noted to have a flare up of your Asthma for which you have been started on a tapering course of prednisone (next dose is due tomorrow). Also, continue using the Nebulizer (Duoneb ordered) in addition to Tessalon Perles (as needed for cough) * IT IS STRONGLY ADVISED THAT YOU STOP SMOKING. A Nicotine patch has been ordered. This will need tapered over the next several months (21mg daily for 4 weeks then 14mg daily x 4 weeks then 7 mg daily x 4 weeks then stop). Not only is the Nicotine habit forming, so is the hand-oral fixation. I strongly advise behavioral modifications (things to "satisfy" this hand-oral fixation) like chewing sugar-free candy/gum, do puzzles * You have been started on Protonix to help protect your stomach given the addition of Xarelto * You do take a significant amount of routine ibuprofen. Would hold off on this for now given the prednisone on board of menses which is a taper) and the Xarelto. These all increase the risk of bleeding in the stomach which you are reported to have a history of * Follow-up with your PCP within 7 to 10 days * Return to the ED for any new or worsening symptoms Pending Studies at Discharge: Yes Stand-Alone Forms: My [facility], Smoking Cessation Medications and DC Order Prescriptions: New ipratropium-albuterol 0.5 mg-3 mg(2.5 mg base)/3 mL Solution For Nebulization 3 ml NEB Q6R PRN (Reason: wheezing/SOB/cough) Qty: 50 RF: 0 nicotine [Nicoderm CQ] 21 mg/24 hr Patch 24 Hour 21 mg transdermal QAM Qty: 30 RF: 0 Xarelto 15 mg Tablet 15 mg PO BIDM Qty: 41 RF: 0 Xarelto 20 mg tablet 20 mg PO DAILY Qty: 30 RF: 0 prednisone 10 mg tablets,dose pack 10 mg PO DIRECTED Qty: 48 RF: 0 tramadol 50 mg Tablet 50 mg PO Q4H PRN (Reason: pain) Qty: 18 RF: 0 benzonatate 100 mg Capsule 100 mg PO Q8H PRN (Reason: cough) Qty: 30 RF: 0 pantoprazole [Protonix] 40 mg tablet,delayed release (DR/EC) 40 mg PO DAILY Qty: 30 RF: 0 Continued albuterol sulfate 90 mcg/actuation HFA aerosol inhaler 2 puff INHALATION Q6 PRN (Reason: Shortness Of Breath Or Wheezing) Qty: 18 RF: 5 Atrovent HFA 17 mcg/actuation HFA aerosol inhaler 2 puff INHALATION TID Qty: 12.9 RF: 5 Dulera 200-5 mcg/actuation HFA aerosol inhaler 2 puff INHALATION BID Qty: 13 RF: 5 Proctofoam HC 1-1 % foam 1 applic IA BID PRN (Reason: hemorrhoids) Qty: 10 RF: 0 nitroglycerin [Nitrostat] 0.4 mg Tablet, Sublingual 0.4 mg sublingual UD PRN (Reason: Chest Pain) RF: 0 diclofenac sodium 1 % gel 2 g TOPICAL QID PRN (Reason: Pain) RF: 0 furosemide 20 mg tablet 20 mg PO DAILY Qty: 7 RF: 0 Discontinued albuterol sulfate 2.5 mg /3 mL (0.083 %) solution for nebulization 2.5 mg inhalation Q8H PRN (Reason: bronchospasm) Qty: 90 RF: 0 ibuprofen 800 mg tablet 800 mg PO TID RF: 0 Discharge Orders: Discharge Order (Routine); Ordered 11/12/21 Ordered By: Nita Stallworth/Other Patient Handouts: Managing Type 2 Diabetes Admission Data Admit Date/Time: 11/10/21 12:37 Attending Provider: Addy Sanders Admit Provider: Booker Rodriguez Primary Care Provider: Nita Torres Other Providers: Addy Sanders Other Interventions: Discharge Summary Assessment (RN) Last Done: 11/12/21 13:46 Supervising Physician Co-Signing Physician Notes I supervised Nita Curry PA-C on the care of this patient. I interviewed and examined the patient independently of her. The plan is as written in her note except for any following changes/exceptions: None Doing well today. Pain is improving. Discussed discharge recs re: lifting and that she could not hurt her lung with movement, but that she should still take it easy. Coding Level of Care Code D/C DAY MANAGEMENT >30 MINS Diagnoses Acute pulmonary embolism I26.99 Hemoptysis R04.2 Bronchospasm J98.01 Diabetes mellitus, type 2 E11.65; Z79.4 Diabetes mellitus complication status: with hyperglycemia Diabetes mellitus snf insulin use: with snf use Chronic obstructive pulmonary disease J44.9 Chronic diastolic congestive heart failure I50.32 GERD (gastroesophageal reflux disease) K21.9 Esophagitis presence: esophagitis presence not specified Obstructive sleep apnea on CPAP G47.33; Z99.89
== END 2021-11-12 14:15 | disposition home or self-care (01) | DRG 176 ==
LOC: ED 09:04 → SUATTDRO 12:37 → 2N 12:37
DX: Z87.891 Personal history of nicotine dependence; E87.70 Fluid overload, unspecified; I50.32 Chronic diastolic (congestive) heart failure; E66.01 Morbid (severe) obesity due to excess calories; Z83.3 Family history of diabetes mellitus; K21.9 Gastro-esophageal reflux disease without esophagitis; I26.99 Other pulmonary embolism without acute cor pulmonale; J44.1 Chronic obstructive pulmonary disease with (acute) exacerbation; E11.9 Type 2 diabetes mellitus without complications; Z95.5 Presence of coronary angioplasty implant and graft; Z68.41 Body mass index [BMI] 40.0-44.9, adult; G47.33 Obstructive sleep apnea (adult) (pediatric)

== ENCOUNTER 2022-05-06 16:09 | Inpatient (IN) ==
[2022-05-06] MEDS ORDERED: ALBUT/IPRATROP 3MG/0.5MG NEB 3 ML VIAL ONE (16:44)
[2022-05-06] MEDS ORDERED: fentaNYL citrate 100 MCG/2 ML VIAL IV STA (17:12)
--- NOTE | 2022-05-06 17:17 | Emergency Department Note ---
Impression & Plan Asthma with severe exacerbation, Chest pain, Fluid overload, Breathlessness ED Provider Note Provider: Kolby Huerta MD DATE OF SERVICE: 05/06/2022 CHIEF COMPLAINT: Shortness of breath, mid to right chest discomfort HISTORY OF PRESENT ILLNESS: Patient is a 56-year-old female history of PE on Xarelto, CKD, pericarditis, chest pain with stents, anxiety, and diabetes presenting here today via ambulance with the onset over the past 2 days of worsening chest tightness and pain predominant in the right side with shortness of breath. Return from [facility] 2 weeks ago. States compliance with home Xarelto. Using her home albuterol without significant improvement. Received aspirin, nitro, Solu-Medrol 125 mg, and a DuoNeb en route without significant improvement. No trauma reported. Denies abdominal symptoms. States feels similar to prior episodes of asthma. No syncope reported. REVIEW OF SYSTEMS: A total of 10 review of systems was obtained and negative except as stated above in the HPI. PAST MEDICAL HISTORY: As noted above MEDICATIONS: Reviewed home medications SOCIAL HISTORY: Former smoker PHYSICAL EXAM: GENERAL: alert and oriented on the stretcher with CPAP appears mildly anxious Head: normocephalic and atraumatic EYES: No injection, discharge or icterus. PERRL, EOMI. NECK: Trachea midline. Supple. ENT: Mucous membranes pink and moist. Pharynx without erythema or exudate. LUNGS: Airway patent. Some tachypnea with scattered wheeze throughout. Increased work of breathing HEART: Regular rate and rhythm. No chest wall tenderness ABDOMEN: Soft and non-tender, without guarding or rebound. SKIN: Acyanotic, warm, dry, without rashes EXTREMITIES: Without tenderness or deformity and perhaps very trace edema bilaterally. NEUROLOGICAL: No focal deficits. No aphasia. No facial droop or slurred speech. EK bpm normal sinus rhythm. No PVC or PAC. No acute ST segment elevation noted with QTC of 474. CONTINUOUS CARDIAC MONITORING: was ordered and showed a heart rate of 80s-100s bpm in normal sinus rhythm to sinus tachycardia Patient's laboratory studies and imaging reviewed. Differential includes Reactive airway disease, pneumonia, pneumothorax, COPD, CHF, infections, cardiac ischemia, pulmonary embolism, musculoskeletal, gastrointestinal, as well as other pathologies. IMPRESSION/MEDICAL DECISION MAKING: Patient with significant medical history multiple comorbidities. While on Xarelto, CT of the chest to exclude PE as well as pneumonia or other occult pulmonary pathology as ordered. EKG and troponin as well as basic labs were sent. Denies significant abdominal symptoms otherwise. No syncope or trauma reported. Given work of breathing was initially put on CPAP upon arrival. Given magnesium. Received steroids in addition to full dose aspirin and a dose of nitroglycerin prior to arrival. No immediate improvement with this. Given some fentanyl for pain. COVID test sent. No significant cytosis or anemia. No severe electrolyte abnormality noted. Normal renal function. No concerning findings for hepatitis or pancreatitis. Troponin elevated EKG without significant changes. Negative , COVID, influenza, and RSV test. Chest x-ray without significant pulmonary pathology noted with some cardiomegaly. CTA of the chest was completed given her complaints. No evidence of PE or pneumonia with a question of some pulmonary vascular congestion/edema. We will give an extra small dose of IV Lasix. Patient much more comfortable now on CPAP. Question if her symptoms are primarily related to asthma. Sounds clear. Discussed with patient trialing off CPAP for a period. Given the extent of her asthma exacerbation requiring CPAP for her. This evening discussed with her further observation overnight to give the steroids down to work and assure stability. Trial off CPAP with increased work of breathing and expiratory wheeze thus put back on CPAP.. Given additional DuoNeb. Discussed with the hospitalist. DIAGNOSIS: Acute asthma exacerbation, shortness of breath, chest pain, fluid overload DISPOSITION: Hospitalist will evaluate Patient was agreeable with this plan. Critical Care I have personally spent 36 minutes of critical care time in the direct management of this patient. This includes bedside care, interpretation of diagnostic studies, and testing, discussion with consultants, patient, and family members, and other required patient management activities. These 36 minutes is in excess of all separately billable procedures. Past Med/Surg History Medical History Active asthma Arthritis of knee CHF (congestive heart failure) Chronic low back pain CSF leak Degeneration of cervical intervertebral disc Dizziness External hemorrhoids Frequent falls GERD (gastroesophageal reflux disease) Hemiplegic migraine History of tobacco abuse Left-sided chest pain Morbid obesity due to excess calories Obstructive sleep apnea Severe asthma with acute exacerbation TIA (transient ischemic attack) Urinary incontinence Vertebral artery stenosis Vitamin D deficiency Surgical History Facial fracture (2014) WITH RECONSTRUCTION History of bilateral tubal ligation History of cardiac cath X2 STENTS - (~2010, [place], [place] NO STENTS - ([facility] @ ~2014) History of colonoscopy History of esophagogastroduodenoscopy (EGD) History of heart artery stent X2 STENTS (2010) UNSURE OF KIND. NO STENT CARDS PER PT. History of mandibular surgery S/P left knee arthroscopy S/p tibial fracture open treatment of Fx with plate/screws, Left leg Status post right foot surgery Family History Mother Breast cancer, Onset Age: 64 Type 2 diabetes mellitus Father Diabetes Coronary heart disease Type 2 diabetes mellitus Myocardial infarction, Onset Age: 52 Family/Other Hypertension sibling Denies family history of Ovarian cancer Social History Smoking Status: Former smoker Tobacco Type: Cigarettes Years Smoked: 40; Second Hand Exposure: Yes; Hx Alcohol Use: No Hx Substance Use: No Preferred Language: Indian Communication Ability: Effective Visual Impairment: No Limitations Fund Raiser Required: No Beliefs That Will Affect Care: None marital status: Current Living Situation: Spouse Current Living Situation Comment: home with spouse. Feels Safe at Home: Yes Assistive Devices: None Allergies Allergies Allergy/AdvReac Type Severity Reaction Status Date / Time No Known Allergies Allergy Verified 05/06/22 18:21 Home Meds Home Medications Medication Instructions Recorded Confirmed ipratropium 0.5 mg-albuterol 3 mg 3 ml NEB Q6H PRN wheezing/SOB/cough 05/06/22 05/06/22 (2.5 mg base)/3 mL nebulization soln rivaroxaban 20 mg tablet (Xarelto) 20 mg PO QPM 05/06/22 05/06/22 Previous Rx's Medication Instructions Recorded nicotine 21 mg/24 hr daily 21 mg transdermal QAM #30 ea 01/26/22 transdermal patch (Nicoderm CQ) albuterol sulfate 90 mcg/actuation 2 puff inhalation Q6 PRN Shortness 05/03/22 aerosol inhaler Of Breath Or Wheezing #18 grams benzonatate 100 mg capsule 100 mg PO Q8H PRN cough #30 caps 05/03/22 cyclobenzaprine 5 mg tablet 5 mg PO TID PRN muscle spasm #30 05/03/22 tabs diclofenac sodium 1 % topical gel 2 g topical QID PRN Pain #100 grams 05/03/22 furosemide 20 mg tablet 20 mg PO DAILY #90 tabs 05/03/22 hydrocortisone 1 %-pramoxine 1 % 1 applic NM BID PRN hemorrhoids 05/03/22 rectal foam (Proctofoam HC) #10 grams ipratropium bromide 17 2 puff inhalation TID #12.9 grams 05/03/22 mcg/actuation HFA aerosol inhaler (Atrovent HFA) lisinopril 10 mg tablet 10 mg PO DAILY #90 tabs 05/03/22 metformin 500 mg tablet,extended 500 mg PO QPM #90 tabs 05/03/22 release 24 hr mometasone-formoterol HFA 200 2 puff inhalation BID #13 grams 05/03/22 mcg-5 mcg/actuation aerosol inhaler (Dulera) nitroglycerin 0.4 mg sublingual 0.4 mg sublingual UD PRN Chest 05/03/22 tablet (Nitrostat) Pain #25 tabs pantoprazole 40 mg tablet,delayed 40 mg PO DAILY #90 tabs 05/03/22 release (Protonix) Results & Data (ED) Vital Signs Vital Signs - 24 hr 05/06/22 16:20 05/06/22 16:21 05/06/22 16:35 Temperature 36.4 C L Temperature Source Axillary Pulse Rate 94 H Pulse Rate [Left Apical] Pulse Rhythm Pulse Rhythm [Left Apical] Pulse Strength [Left Apical] Respiratory Rate 35 H 34 H Respiratory Effort / Characteristics Labored Short of Breath Respiratory Depth Shallow Respiratory Pattern Rapid/Shallow Tachypnea Tachypnea Blood Pressure 125/103 H Blood Pressure [Right Arm] Blood Pressure Mean 110 Blood Pressure Mean [Right Arm] Blood Pressure Position [Right Arm] Pulse Oximetry 100 100 Oxygen Delivery Method CPAP CPAP Oxygen Flow Rate Fraction of Inspired Oxygen 40 Sepsis Recent Fever Within 48 Hours No Sepsis New/Unexplained Change in Mental Status No Sepsis Action Taken by Nursing No Action Required 05/06/22 16:43 05/06/22 16:43 05/06/22 16:47 Temperature Temperature Source Pulse Rate Pulse Rate [Left Apical] 95 H 94 H Pulse Rhythm Pulse Rhythm [Left Apical] Regular Pulse Strength [Left Apical] Normal Respiratory Rate 30 H 34 H Respiratory Effort / Characteristics Labored Short of Breath Spontaneous Respiratory Depth Deep Respiratory Pattern Regular Blood Pressure Blood Pressure [Right Arm] 125/104 H Blood Pressure Mean Blood Pressure Mean [Right Arm] 111 Blood Pressure Position [Right Arm] Lying Pulse Oximetry 100 100 100 Oxygen Delivery Method CPAP CPAP BiPAP Oxygen Flow Rate 14 Fraction of Inspired Oxygen 30 Sepsis Recent Fever Within 48 Hours Sepsis New/Unexplained Change in Mental Status Sepsis Action Taken by Nursing 05/06/22 17:06 05/06/22 18:58 05/06/22 20:08 Temperature Temperature Source Pulse Rate 95 H Pulse Rate [Left Apical] 87 99 H Pulse Rhythm Regular Pulse Rhythm [Left Apical] Regular Pulse Strength [Left Apical] Normal Respiratory Rate 20 19 28 H Respiratory Effort / Characteristics Non-Labored Spontaneous Grunting Labored SOB on Exertion Respiratory Depth Normal Respiratory Pattern Regular Blood Pressure Blood Pressure [Right Arm] 143/76 H Blood Pressure Mean Blood Pressure Mean [Right Arm] 98 Blood Pressure Position [Right Arm] Lying Pulse Oximetry 100 98 30 L Oxygen Delivery Method CPAP CPAP BiPAP Oxygen Flow Rate Fraction of Inspired Oxygen Sepsis Recent Fever Within 48 Hours Sepsis New/Unexplained Change in Mental Status Sepsis Action Taken by Nursing 05/06/22 18:05 05/06/22 18:57 05/06/22 20:53 Temperature Temperature Source Pulse Rate 99 H 90 Pulse Rate [Left Apical] Pulse Rhythm Pulse Rhythm [Left Apical] Pulse Strength [Left Apical] Respiratory Rate 30 H 22 Respiratory Effort / Characteristics Spontaneous Grunting Labored Short of Breath Spontaneous Respiratory Depth Deep Normal Respiratory Pattern Tachypnea Tachypnea Blood Pressure Blood Pressure [Right Arm] Blood Pressure Mean Blood Pressure Mean [Right Arm] Blood Pressure Position [Right Arm] Pulse Oximetry 98 98 Oxygen Delivery Method BiPAP Oxygen Flow Rate Fraction of Inspired Oxygen 30 30 Sepsis Recent Fever Within 48 Hours Sepsis New/Unexplained Change in Mental Status Sepsis Action Taken by Nursing 05/06/22 22:10 Temperature Temperature Source Pulse Rate 100 H Pulse Rate [Left Apical] Pulse Rhythm Pulse Rhythm [Left Apical] Pulse Strength [Left Apical] Respiratory Rate 23 Respiratory Effort / Characteristics Spontaneous SOB on Exertion Respiratory Depth Deep Respiratory Pattern Tachypnea Blood Pressure Blood Pressure [Right Arm] Blood Pressure Mean Blood Pressure Mean [Right Arm] Blood Pressure Position [Right Arm] Pulse Oximetry 96 Oxygen Delivery Method Oxygen Flow Rate Fraction of Inspired Oxygen 21 Sepsis Recent Fever Within 48 Hours Sepsis New/Unexplained Change in Mental Status Sepsis Action Taken by Nursing Laboratory Data Result diagrams: 05/06/22 17:15 05/06/22 17:15 Lab Results 05/06/22 05/06/22 05/06/22 Range/Units 17:15 17:15 17:15 WBC 7.84 (4.8-10.8) K/ul RBC 3.94 (3.93-5.22) M/uL Hgb 12.1 (12.0-16.0) g/dl Hct 38.1 (34.1-44.9) % MCV 96.7 (80.0-100.0) fL MCH 30.7 (25.0-34.0) pg MCHC 31.8 L (32.0-36.0) g/dL RDW Std Deviation 48.9 H (36.4-46.3) fL RDW Coeff of Majo 13.6 (11.5-14.5) % Plt Count 203 (130-400) K/uL MPV 11.4 (9.4-12.3) fL Immature Gran % (Auto) 0.4 % Neut % (Auto) 61.2 % Lymph % (Auto) 31.4 % Ray % (Auto) 5.6 % Eos % (Auto) 1.1 % Baso % (Auto) 0.3 % Neut # (Auto) 4.80 (1.4-6.5) K/uL Lymph # (Auto) 2.46 (1.2-3.4) K/uL Ray # (Auto) 0.44 (0.24-0.82) K/uL Eos # (Auto) 0.09 (0-0.50) K/uL Baso # (Auto) 0.02 (0-0.2) K/uL Immature Gran # (Auto) 0.03 H (0.00-0.02) K/uL ESR (0-30) mm/hr PT 10.4 (9.0-12.0) Seconds INR 1.0 (0.9-1.1) APTT 22.2 (21.0-31.0) Seconds PTT Ratio 0.8 VBG pH (7.36-7.41) VBG pCO2 (38-50) mmHg VBG pO2 mmHg VBG HCO3 mmol/L VBG O2 Saturation % VBG Base Excess mEq/L Sodium 143 (136-145) mmol/L Potassium 3.8 (3.5-5.1) mmol/L Chloride 113 H (98-107) mmol/L Carbon Dioxide 25 (21-32) mmol/L Anion Gap 5 (3-11) BUN 16 (6-23) mg/dl Creatinine 0.99 (0.6-1.2) mg/dl Est Cr Clr Drug Dosing 79.7 ml/min Est GFR ( Amer) 73.3 ml/min Est GFR (Non-Af Amer) 63.3 ml/min BUN/Creatinine Ratio 16.2 (10-20) Glucose 168 H (70-99(Fasting)) mg/dl Calcium 8.9 (8.5-10.1) mg/dl Magnesium 2.0 (1.7-2.4) mg/dl Total Bilirubin 0.3 (0.2-1.0) mg/dl AST 16 (13-39) U/L ALT 14 (7-52) U/L Alkaline Phosphatase 80 (34-104) U/L Troponin I High Sens 10.7 (0-14) pg/ml Total Protein 6.4 (6.0-8.3) gm/dl Albumin 3.5 (3.4-5.0) gm/dl Globulin 2.9 (2.5-4.0) gm/dl Albumin/Globulin Ratio 1.2 (0.9-2) Lipase 36 (11-82) U/L HCG, Qual (Negative) Urine Color Urine Appearance (Clear) Urine pH (4.5-7.5) Ur Specific [place] (1.000-1.030) Urine Protein (Negative) Urine Glucose (UA) (Negative) Urine Ketones (Negative) Urine Blood (Negative) Urine Nitrite (Negative) Urine Bilirubin (Negative) Urine Urobilinogen (Negative) Ur Leukocyte Esterase (Negative) Urine WBC (Auto) (0-5) /hpf Urine RBC (Auto) (0-4) /hpf U Hyaline Cast (Auto) (0-5) /lpf U Epithel Cells (Auto) (0-5) /lpf Urine Bacteria (Auto) (Negative) SARS-CoV-2 (PCR) (Negative) Influenza Type A (PCR) (Neg) Influenza Type B (PCR) (Neg) RSV (RT-PCR) (Neg) 05/06/22 05/06/22 05/06/22 Range/Units 17:15 17:15 17:30 WBC (4.8-10.8) K/ul RBC (3.93-5.22) M/uL Hgb (12.0-16.0) g/dl Hct (34.1-44.9) % MCV (80.0-100.0) fL MCH (25.0-34.0) pg MCHC (32.0-36.0) g/dL RDW Std Deviation (36.4-46.3) fL RDW Coeff of Majo (11.5-14.5) % Plt Count (130-400) K/uL MPV (9.4-12.3) fL Immature Gran % (Auto) % Neut % (Auto) % Lymph % (Auto) % Ray % (Auto) % Eos % (Auto) % Baso % (Auto) % Neut # (Auto) (1.4-6.5) K/uL Lymph # (Auto) (1.2-3.4) K/uL Ray # (Auto) (0.24-0.82) K/uL Eos # (Auto) (0-0.50) K/uL Baso # (Auto) (0-0.2) K/uL Immature Gran # (Auto) (0.00-0.02) K/uL ESR 25 (0-30) mm/hr PT (9.0-12.0) Seconds INR (0.9-1.1) APTT (21.0-31.0) Seconds PTT Ratio VBG pH (7.36-7.41) VBG pCO2 (38-50) mmHg VBG pO2 mmHg VBG HCO3 mmol/L VBG O2 Saturation % VBG Base Excess mEq/L Sodium (136-145) mmol/L Potassium (3.5-5.1) mmol/L Chloride (98-107) mmol/L Carbon Dioxide (21-32) mmol/L Anion Gap (3-11) BUN (6-23) mg/dl Creatinine (0.6-1.2) mg/dl Est Cr Clr Drug Dosing ml/min Est GFR ( Amer) ml/min Est GFR (Non-Af Amer) ml/min BUN/Creatinine Ratio (10-20) Glucose (70-99(Fasting)) mg/dl Calcium (8.5-10.1) mg/dl Magnesium (1.7-2.4) mg/dl Total Bilirubin (0.2-1.0) mg/dl AST (13-39) U/L ALT (7-52) U/L Alkaline Phosphatase (34-104) U/L Troponin I High Sens (0-14) pg/ml Total Protein (6.0-8.3) gm/dl Albumin (3.4-5.0) gm/dl Globulin (2.5-4.0) gm/dl Albumin/Globulin Ratio (0.9-2) Lipase (11-82) U/L HCG, Qual Negative (Negative) Urine Color Urine Appearance (Clear) Urine pH (4.5-7.5) Ur Specific [place] (1.000-1.030) Urine Protein (Negative) Urine Glucose (UA) (Negative) Urine Ketones (Negative) Urine Blood (Negative) Urine Nitrite (Negative) Urine Bilirubin (Negative) Urine Urobilinogen (Negative) Ur Leukocyte Esterase (Negative) Urine WBC (Auto) (0-5) /hpf Urine RBC (Auto) (0-4) /hpf U Hyaline Cast (Auto) (0-5) /lpf U Epithel Cells (Auto) (0-5) /lpf Urine Bacteria (Auto) (Negative) SARS-CoV-2 (PCR) NEGATIVE (Negative) Influenza Type A (PCR) Negative (Neg) Influenza Type B (PCR) Negative (Neg) RSV (RT-PCR) Negative (Neg) 05/06/22 05/06/22 Range/Units 20:45 22:18 WBC (4.8-10.8) K/ul RBC (3.93-5.22) M/uL Hgb (12.0-16.0) g/dl Hct (34.1-44.9) % MCV (80.0-100.0) fL MCH (25.0-34.0) pg MCHC (32.0-36.0) g/dL RDW Std Deviation (36.4-46.3) fL RDW Coeff of Majo (11.5-14.5) % Plt Count (130-400) K/uL MPV (9.4-12.3) fL Immature Gran % (Auto) % Neut % (Auto) % Lymph % (Auto) % Ray % (Auto) % Eos % (Auto) % Baso % (Auto) % Neut # (Auto) (1.4-6.5) K/uL Lymph # (Auto) (1.2-3.4) K/uL Ray # (Auto) (0.24-0.82) K/uL Eos # (Auto) (0-0.50) K/uL Baso # (Auto) (0-0.2) K/uL Immature Gran # (Auto) (0.00-0.02) K/uL ESR (0-30) mm/hr PT (9.0-12.0) Seconds INR (0.9-1.1) APTT (21.0-31.0) Seconds PTT Ratio VBG pH 7.35 L (7.36-7.41) VBG pCO2 37 L (38-50) mmHg VBG pO2 98 mmHg VBG HCO3 20 mmol/L VBG O2 Saturation 98.9 % VBG Base Excess -4.7 mEq/L Sodium (136-145) mmol/L Potassium (3.5-5.1) mmol/L Chloride (98-107) mmol/L Carbon Dioxide (21-32) mmol/L Anion Gap (3-11) BUN (6-23) mg/dl Creatinine (0.6-1.2) mg/dl Est Cr Clr Drug Dosing ml/min Est GFR ( Amer) ml/min Est GFR (Non-Af Amer) ml/min BUN/Creatinine Ratio (10-20) Glucose (70-99(Fasting)) mg/dl Calcium (8.5-10.1) mg/dl Magnesium (1.7-2.4) mg/dl Total Bilirubin (0.2-1.0) mg/dl AST (13-39) U/L ALT (7-52) U/L Alkaline Phosphatase (34-104) U/L Troponin I High Sens (0-14) pg/ml Total Protein (6.0-8.3) gm/dl Albumin (3.4-5.0) gm/dl Globulin (2.5-4.0) gm/dl Albumin/Globulin Ratio (0.9-2) Lipase (11-82) U/L HCG, Qual (Negative) Urine Color Yellow Urine Appearance Clear (Clear) Urine pH 5.0 (4.5-7.5) Ur Specific [place] 1.014 (1.000-1.030) Urine Protein Negative (Negative) Urine Glucose (UA) 2+ H (Negative) Urine Ketones Negative (Negative) Urine Blood Negative (Negative) Urine Nitrite Negative (Negative) Urine Bilirubin Negative (Negative) Urine Urobilinogen Negative (Negative) Ur Leukocyte Esterase Trace H (Negative) Urine WBC (Auto) 1-5 (0-5) /hpf Urine RBC (Auto) 0-4 (0-4) /hpf U Hyaline Cast (Auto) 0 (0-5) /lpf U Epithel Cells (Auto) 5-10 H (0-5) /lpf Urine Bacteria (Auto) Negative (Negative) SARS-CoV-2 (PCR) (Negative) Influenza Type A (PCR) (Neg) Influenza Type B (PCR) (Neg) RSV (RT-PCR) (Neg) Administered Medications Methylprednisolone (Methylprednisolone 40 Mg/Ml Vial) 40 mg IV Q8 [facility] Stop: 06/05/22 21:59 Last Admin: 05/06/22 22:38 Dose: 40 mg Documented By: SW Discontinued Medications Albuterol (Albut/Ipratrop 3mg/0.5mg Neb 3 Ml Vial) Confirm Administered Dose 12 ml .ROUTE .STK-MED ONE Stop: 05/06/22 16:45 Last Admin: 05/06/22 16:47 Dose: 12 ml Documented By: [facility] Albuterol (Albut/Ipratrop 3mg/0.5mg Neb 3 Ml Vial) 12 ml NEB ONE ONE; Protocol Stop: 05/06/22 19:54 Last Admin: 05/06/22 20:07 Dose: 12 ml Documented By: CS Budesonide (Budesonide 0.25 Mg/2 Ml Vial (Pulmicort)) 0.25 mg NEB NOW STA Stop: 05/06/22 20:47 Last Admin: 05/06/22 20:55 Dose: 0.25 mg Documented By: CS Fentanyl Citrate (Fentanyl Citrate 100 Mcg/2 Ml Vial) 50 mcg IV NOW STA Stop: 05/06/22 17:13 Last Admin: 05/06/22 17:26 Dose: 50 mcg Documented By: CELIA Furosemide (Furosemide Inj 20 Mg/2 Ml Vial) 20 mg IV ONE ONE Stop: 05/06/22 19:43 Last Admin: 05/06/22 19:57 Dose: 20 mg Documented By: Magnesium Sulfate/Dextrose (Magnesium Sulfate / D5w) 1 gm in 100 mls @ 600 mls/hr IV Q10M KARLA Stop: 05/06/22 17:18 Last Infusion: 05/06/22 18:11 Dose: 0 mls/hr Documented By: Admin: 05/06/22 17:47 Dose: 600 mls/hr Documented By: Infusion: 05/06/22 17:45 Dose: 0 mls/hr Documented By: Admin: 05/06/22 17:26 Dose: 600 mls/hr Documented By: [facility] Ioversol (Optiray 320 125ml) 119 ml IV ONCE ONE Stop: 05/06/22 19:09 Last Admin: 05/06/22 19:11 Dose: 119 ml Documented By: [facility] Imaging Data Radiologist's Impression: Chest X-Ray 05/06/22 16:59 SINGLE VIEW CHEST CLINICAL HISTORY: Dyspnea. FINDINGS: An AP, portable, upright chest radiograph is compared to chest x-ray and chest CT dated 01/21/2022. The heart is enlarged. The pulmonary vasculature is noncongested. There is mild bibasilar atelectasis. The lungs and pleural spaces are otherwise clear. No pneumothorax is seen. The bony thorax is grossly intact. IMPRESSION: Cardiomegaly with no active disease in the chest. ACT 112: Negative or not required by law. Electronically signed by: Marin De La Rosa M.D. 05/06/2022 5:34 PM Chest CTA 05/06/22 17:12 CT ANGIOGRAM OF THE CHEST CLINICAL HISTORY: Dyspnea. Chest tightness. COMPARISON STUDY: Chest x-ray dated 05/06/2022. Chest CT dated 01/21/2022. TECHNIQUE: Following the IV administration of 119 cc of Optiray 320, CT angiogram of the chest was performed from the upper abdomen to the thoracic inlet utilizing the pulmonary embolus protocol. Images are reviewed in the axial, sagittal, and coronal planes. 3-D MIPS images are created and assessed. IV contrast was administered without complication. A dose lowering technique was utilized adhering to the principles of ALARA. CT DOSE: 667.99 mGy.cm FINDINGS: Thyroid: Mildly enlarged and heterogeneous. Thoracic aorta: There is mild atherosclerotic calcification of the thoracic aorta, which is normal in caliber and demonstrates standard 3-vessel arch anatomy. No dissection is seen. Pulmonary vasculature: The pulmonary trunk is normal in caliber. There are no filling defects identified in main, lobar, or segmental pulmonary branches to suggest pulmonary embolus. Heart: The heart is enlarged and without pericardial effusion. There are coronar y artery calcifications. Lungs and pleural spaces: Mild emphysematous change is noted at the apices. There is trace right pleural effusion and dependent atelectasis. No airspace consolidation is seen typical for pneumonia. Intralobular septal thickening is noted in the lower lobes. The trachea and central airways appear clear. Mediastinum: There is no mediastinal lymphadenopathy. [place]: Clear. Axillae: There is no axillary lymphadenopathy. Upper abdomen: Partially visualized upper abdominal viscera is within normal limits. Skeletal structures: The skeletal structures are osteopenic. Degenerative change is noted throughout the thoracic spine. No lytic or blastic bony lesions are seen. IMPRESSION: 1. There is no evidence of pulmonary embolus in the main, lobar, or segmental pulmonary arteries. 2. Cardiomegaly and mild emphysema. 3. Mild intralobular septal thickening suggests fluid overload/congestive failure. Clinical correlation will be required. 4. Trace right pleural effusion. 5. There is no airspace consolidation typical for pneumonia. 6. Additional findings as above. ACT 112: Negative or not required by law. Electronically signed by: Marin De La Rosa M.D. 05/06/2022 7:30 PM Discharge Plan Visit Data Chief Complaint: Shortness of Breath/Dyspnea Stated Complaint: SOB, CHEST PAIN ED Provider: Kolby Huerta Discharge Problem: Asthma with severe exacerbation, Chest pain, Fluid overload, Breathlessness Patient Disposition: Being Evaluated by Hospitalist Forms Stand Alone Forms: My [employer] Prescriptions Prescriptions: No Action benzonatate 100 mg capsule 100 mg PO Q8H PRN (Reason: cough) Qty: 30 0RF cyclobenzaprine 5 mg tablet 5 mg PO TID PRN (Reason: muscle spasm) Qty: 30 0RF diclofenac sodium 1 % gel 2 g TOPICAL QID PRN (Reason: Pain) Qty: 100 3RF Proctofoam HC 1-1 % foam 1 applic NM BID PRN (Reason: hemorrhoids) Qty: 10 0RF nitroglycerin [Nitrostat] 0.4 mg tablet, sublingual 0.4 mg sublingual UD PRN (Reason: Chest Pain) Qty: 25 3RF albuterol sulfate 90 mcg/actuation HFA aerosol inhaler 2 puff INHALATION Q6 PRN (Reason: Shortness Of Breath Or Wheezing) Qty: 18 5RF furosemide 20 mg tablet 20 mg PO DAILY Qty: 90 3RF Atrovent HFA 17 mcg/actuation HFA aerosol inhaler 2 puff INHALATION TID Qty: 12.9 5RF lisinopril 10 mg tablet 10 mg PO DAILY Qty: 90 1RF metformin 500 mg tablet extended release 24 hr 500 mg PO QPM Qty: 90 3RF Dulera 200-5 mcg/actuation HFA aerosol inhaler 2 puff INHALATION BID Qty: 13 5RF pantoprazole [Protonix] 40 mg tablet,delayed release (DR/EC) 40 mg PO DAILY Qty: 90 1RF nicotine [Nicoderm CQ] 21 mg/24 hr patch 24 hour 21 mg transdermal QAM Qty: 30 0RF ipratropium-albuterol 0.5 mg-3 mg(2.5 mg base)/3 mL solution for nebulization 3 ml NEB Q6H PRN (Reason: wheezing/SOB/cough) Xarelto 20 mg tablet 20 mg PO QPM Rx Instructions: must administer with evening meal Referrals Referrals: James Hendrix DO [Primary Care Provider] -
[2022-05-06] MEDS: MAGNESIUM SULFATE / D5W 1 GM/100 ML BAG IV SCH ×2 (17:26→17:47)
[2022-05-06 17:30] LABS: Basophils # (auto) 0.02 K/uL (0-0.2); Basophils % (auto) 0.3 %; Eosinophils # (auto) 0.09 K/uL (0-0.50); Eosinophils % (auto) 1.1 %; Hematocrit (blood only) 38.1 % (34.1-44.9); Hemoglobin 12.1 g/dl (12.0-16.0); Immature Granulocytes # (auto) 0.03 K/uL (0.00-0.02); Immature Granulocytes % (auto) 0.4 %; Lymphocytes # (auto) 2.46 K/uL (1.2-3.4); Lymphocytes % (auto) 31.4 %; Mean Corpuscular Hemoglobin 30.7 pg (25.0-34.0); Mean Corpuscular Hgb Conc 31.8 g/dL (32.0-36.0); Mean Corpuscular Volume 96.7 fL (80.0-100.0); Mean Platelet Volume 11.4 fL (9.4-12.3); Monocytes # (auto) 0.44 K/uL (0.24-0.82); Monocytes % (auto) 5.6 %; Neutrophils % (auto) 61.2 %; Platelet Count 203 K/uL (130-400); RDW Coefficient of Variation 13.6 % (11.5-14.5); RDW Standard Deviation 48.9 fL (36.4-46.3); Red Blood Count 3.94 M/uL (3.93-5.22); White Blood Count 7.84 K/ul (4.8-10.8)
--- NOTE | 2022-05-06 17:36 | XRay Report ---
SINGLE VIEW CHEST CLINICAL HISTORY: Dyspnea. FINDINGS: An AP, portable, upright chest radiograph is compared to chest x-ray and chest CT dated 01/21. The heart is enlarged. The pulmonary vasculature is noncongested. There is mild bibasilar atel ectasis. The lungs and pleural spaces are otherwise clear. No pneumothorax is seen. The bony thorax i s grossly intact. IMPRESSION: Cardiomegaly with no active disease in the chest. ACT 112: Negative or not required by law. Electronically signed by: Marin De La Rosa M.D. 05/06/2022 5:34 PM
[2022-05-06 17:45] LABS: Partial Thromboplastin Ratio 0.8; Partial Thromboplastin Time 22.2 Seconds (21.0-31.0); Prothrombin Time 10.4 Seconds (9.0-12.0)
[2022-05-06 17:52] LABS: Pregnancy Test, Serum Negative (Negative)
[2022-05-06 17:56] LABS: Albumin Globulin Ratio 1.2 (0.9-2); Albumin Level 3.5 gm/dl (3.4-5.0); BUN Creatinine Ratio 16.2 (10-20); Bilirubin,Total 0.3 mg/dl (0.2-1.0); Calcium 8.9 mg/dl (8.5-10.1); Creatinine Clr Calc Pharmacy 79.7 ml/min; Est GFR (African American) 73.3 ml/min; Est GFR (Non-African American) 63.3 ml/min; Globulin 2.9 gm/dl (2.5-4.0); Potassium 3.8 mmol/L (3.5-5.1); Total Protein 6.4 gm/dl (6.0-8.3)
[2022-05-06 17:58] LABS: Troponin I High Sensitivity 10.7 pg/ml (0-14)
[2022-05-06 18:28] LABS: Influenza A virus by PCR Negative (Neg); Influenza B virus by PCR Negative (Neg); RSV by PCR Negative (Neg); SARS CoV2 RNA(COVID-19) InHosp NEGATIVE (Negative)
[2022-05-06] MEDS ORDERED: OPTIRAY 320 125ml IV ONE (19:08)
--- NOTE | 2022-05-06 19:33 | CT Scan Report ---
CT ANGIOGRAM OF THE CHEST CLINICAL HISTORY: Dyspnea. Chest tightness. COMPARISON STUDY: Chest x-ray dated 05/06/2022. Chest CT dated 01/21/2022. TECHNIQUE: Following the IV administration of 119 cc of Optiray 320, CT angiogram of the chest was pe rformed from the upper abdomen to the thoracic inlet utilizing the pulmonary embolus protocol. Images are reviewed in the axial, sagittal, and coronal planes. 3-D MIPS images are created and assessed. I V contrast was administered without complication. A dose lowering technique was utilized adhering to the principles of ALARA. CT DOSE: 667.99 mGy.cm FINDINGS: Thyroid: Mildly enlarged and heterogeneous. Thoracic aorta: There is mild atherosclerotic calcification of the thoracic aorta, which is normal in caliber and demonstrates standard 3-vessel arch anatomy. No dissection is seen. Pulmonary vasculature: The pulmonary trunk is normal in caliber. There are no filling defects identif ied in main, lobar, or segmental pulmonary branches to suggest pulmonary embolus. Heart: The heart is enlarged and without pericardial effusion. There are coronary artery calcificatio ns. Lungs and pleural spaces: Mild emphysematous change is noted at the apices. There is trace right pleu ral effusion and dependent atelectasis. No airspace consolidation is seen typical for pneumonia. Intr alobular septal thickening is noted in the lower lobes. The trachea and central airways appear clear. Mediastinum: There is no mediastinal lymphadenopathy. Mary Jo: Clear. Axillae: There is no axillary lymphadenopathy. Upper abdomen: Partially visualized upper abdominal viscera is within normal limits. Skeletal structures: The skeletal structures are osteopenic. Degenerative change is noted throughout the thoracic spine. No lytic or blastic bony lesions are seen. IMPRESSION: 1. There is no evidence of pulmonary embolus in the main, lobar, or segmental pulmonary arteries. 2. Cardiomegaly and mild emphysema. 3. Mild intralobular septal thickening suggests fluid overload/congestive failure. Clinical correlati on will be required. 4. Trace right pleural effusion. 5. There is no airspace consolidation typical for pneumonia. 6. Additional findings as above. ACT 112: Negative or not required by law. Electronically signed by: Marin De La Rosa M.D. 05/06/2022 7:30 PM
[2022-05-06] MEDS ORDERED: FUROSEMIDE INJ 20 MG/2 ML VIAL IV ONE (19:42)
[2022-05-06] MEDS ORDERED: ALBUT/IPRATROP 3MG/0.5MG NEB 3 ML VIAL NEB ONE (19:53)
[2022-05-06] MEDS ORDERED: BUDESONIDE 0.25 MG/2 ML VIAL (PULMICORT) NEB STA (20:46)
--- NOTE | 2022-05-06 20:56 | History & Physical Report ---
Date of Service May 06, 2022 Assessment & Plan (1) Asthma: Plan: Patient presents with chest wall pain, dyspnea, and tachypnea, wheezing, with inability to come off BiPAP as symptoms return. CTA is negative for infectious process or PE or any pericardial effusion. Is with increas EOS count as well as CHF component with pulmonary edema and pleural effusion. Reproducible chest wall pain also limiting her inspiratory effort. - Received 2 hour long EDUARD nebulizers, Inhaled corticosteroid, IV steroid, and 2 GM Magnesium - VBG is now pending - Without evidence of hypoxia - Mild increase EOS- will give Montelukast 10mg now- re-eval in AM to continue- she has not had a persistent elevation of these in the past - Last follow up with Pulmonary in 09/12 with PFTS - pulmonary function test 08/19/2021 with slight reduction in FVC and FEV1- Albuterol, Atrovent, Dulera - Diuresed 20mg IV Lasix- repeat in AM or sooner if needed - Continue scheduled nebulizers - Continue methylpred - Should be able to wean off BiPAP - Does not appear anxiety driven and without stridor or paradoxical respiration (2) Chest pain: Plan: Hypersensitive non-cardiac chest wall pain- appears as a chronic problem dating back to 2019 but now with chronic flare - This is primarily keeping her from full inspiratory effort - she denies any physical activity or lifting or injury - CRP/ESR pending - Lidocaine patch placed to right side- eval for any effect - Continue PRN Cyclobenzaprine - +/- Colchicine ? (3) Chronic diastolic congestive heart failure: Plan: Follows with heart failure clinic - Lasix as above- repeat dose in AM IV or change back to PO - Continue VINICIUS (4) GERD (gastroesophageal reflux disease): Plan: Continue with PPI (5) Osteoarthritis: Plan: Bilateral knee and back - previously received injections with Durolane (6) DMII (diabetes mellitus, type 2): Plan: Insulin aspart sliding scale - Hold metformin - CF 20 ratio 0 follow - Goal < 180mg/dl History of Present Illness Primary Care Provider: James Hendrix, DO 56 YOF wt past medical history of: Obesity, Asthma, PE (on Xarelto), chronic back pain, Anxiety, Depression, DM II, SMITA HFpEF, COVID 10/11, . Patient comes to the EMD today for complaints of dyspnea and thoracic chest wall pain/tightness. The patient states that this has been ongoing for the past 2 days. She originally felt more short of breath and using her nebulizers 3 times per day as well as waking up last night to use her inhaler 4 times in the night. This progressed into the morning and she felt her overall chest started to become tight and unable to take a deep breath in. She called EMS and was given 125mg solumederol IV, she was given 2 hour long nebulizers as well as 2 GM magnesium and placed on BiPAP. Patient had CXR done CTA of the chest performed, routine labs to include HScTNI and ECG. She was also given Fentanyl for her chest wall and back pain, and 20mg IV Lasix. Patient states that she does not smoke, but is around smoke at home, although most smoking is done outside. She endorses that she has not missed any doses of her medications specifically her Xarelto. She does not weigh herself daily so is unsure if she is gaining any fluid. She feels that the therapy that helped her the most was when they placed the biPAP mask on her. She had a trial of it off and returned to being dyspneic. Currently she is on / with FIo2 30% and is with RR 20s and SPO2 100% with VT 500s. She is very tender to her chest wall on the front, back, and sides. Appears this has been ongoing with review to her PCP notes as well as pain in her jaw. Her HScTNI was negative as well as her ECG. Will obtain VBG at this time to evaluate her CO2- she is oxygenating well. Her WBC count is without leukocytosis or infective process noted with imaging. Her EOS however are increased to 1.1% and usually she is less. Will give Montelukast 10mg PO now and then daily. Will give one Pulmicort nebulizer as she did not take her evening medications and likley unable to get inspiratory effort in with INH. Continue with scheduled nebulizers, solumederol 40mg IV q8, her Dulera will be changed to equivalnet of BREO. She has voided 3x since Lasix administration. Will admit to PCU to follow her respiratory status and CO2. Multifocal effects on her pulmonary status at this time, will continue with multi-tiered approach as she has evidence of wheezing as well as some volume overload and pleural effusion. COVID/FLU/RSV: NEGATIVE Allergies Allergy/AdvReac Type Severity Reaction Status Date / Time No Known Allergies Allergy Verified 05/06/22 18:21 Home Medications Medication Instructions Recorded Confirmed Type nicotine 21 mg/24 hr daily 21 mg transdermal QAM #30 ea 01/26/22 05/06/22 Rx transdermal patch (Nicoderm CQ) albuterol sulfate 90 mcg/actuation 2 puff inhalation Q6 PRN Shortness 05/03/22 05/06/22 Rx aerosol inhaler Of Breath Or Wheezing #18 grams benzonatate 100 mg capsule 100 mg PO Q8H PRN cough #30 caps 05/03/22 05/06/22 Rx cyclobenzaprine 5 mg tablet 5 mg PO TID PRN muscle spasm #30 05/03/22 05/06/22 Rx tabs diclofenac sodium 1 % topical gel 2 g topical QID PRN Pain #100 grams 05/03/22 05/06/22 Rx furosemide 20 mg tablet 20 mg PO DAILY #90 tabs 05/03/22 05/06/22 Rx hydrocortisone 1 %-pramoxine 1 % 1 applic NE BID PRN hemorrhoids 05/03/22 05/06/22 Rx rectal foam (Proctofoam HC) #10 grams ipratropium bromide 17 2 puff inhalation TID #12.9 grams 05/03/22 05/06/22 Rx mcg/actuation HFA aerosol inhaler (Atrovent HFA) lisinopril 10 mg tablet 10 mg PO DAILY #90 tabs 05/03/22 05/06/22 Rx metformin 500 mg tablet,extended 500 mg PO QPM #90 tabs 05/03/22 05/06/22 Rx release 24 hr mometasone-formoterol HFA 200 2 puff inhalation BID #13 grams 05/03/22 05/06/22 Rx mcg-5 mcg/actuation aerosol inhaler (Dulera) nitroglycerin 0.4 mg sublingual 0.4 mg sublingual UD PRN Chest 05/03/22 05/06/22 Rx tablet (Nitrostat) Pain #25 tabs pantoprazole 40 mg tablet,delayed 40 mg PO DAILY #90 tabs 05/03/22 05/06/22 Rx release (Protonix) ipratropium 0.5 mg-albuterol 3 mg 3 ml NEB Q6H PRN wheezing/SOB/cough 05/06/22 05/06/22 History (2.5 mg base)/3 mL nebulization soln rivaroxaban 20 mg tablet (Xarelto) 20 mg PO QPM 05/06/22 05/06/22 History Past Med/Surg History Medical History Active asthma Arthritis of knee CHF (congestive heart failure) Chronic low back pain CSF leak Degeneration of cervical intervertebral disc Dizziness External hemorrhoids Frequent falls GERD (gastroesophageal reflux disease) Hemiplegic migraine History of tobacco abuse Left-sided chest pain Morbid obesity due to excess calories Obstructive sleep apnea Severe asthma with acute exacerbation TIA (transient ischemic attack) Urinary incontinence Vertebral artery stenosis Vitamin D deficiency Surgical History Facial fracture (2014) WITH RECONSTRUCTION History of bilateral tubal ligation History of cardiac cath X2 STENTS - (~2010, IN [place], [place] NO STENTS - ([facility] @ ~2014) History of colonoscopy History of esophagogastroduodenoscopy (EGD) History of heart artery stent X2 STENTS (2010) UNSURE OF KIND. NO STENT CARDS PER PT. History of mandibular surgery S/P left knee arthroscopy S/p tibial fracture open treatment of Fx with plate/screws, Left leg Status post right foot surgery Family History Mother Breast cancer, Onset Age: 64 Type 2 diabetes mellitus Father Diabetes Coronary heart disease Type 2 diabetes mellitus Myocardial infarction, Onset Age: 52 Family/Other Hypertension sibling Denies family history of Ovarian cancer Social History Smoking Status: Former smoker Tobacco Type: Cigarettes Years Smoked: 40; Second Hand Exposure: Yes; Hx Alcohol Use: No Hx Substance Use: No Preferred Language: Hebrew Communication Ability: Effective Visual Impairment: No Limitations Catering Barista Required: No Beliefs That Will Affect Care: None marital status: Current Living Situation: Spouse Current Living Situation Comment: home with spouse. Other Information That Helps Us Care for You: No Feels Safe at Home: Yes Safety Concerns: Feels Safe At This Time Assistive Devices: Cane and Wheelchair Review of Systems Review of Systems: REVIEW OF SYSTEMS: Constitutional: No fever, sweats or chills Eyes: No diplopia, no worsening or blurred vision ENT: normal hearing, no trouble swallowing Respiratory: (+) dyspnea at rest or on exertion, No cough, sputum, Cardiovascular: (+) musculoskeletal chest pain, tightness, no palpitations Abdomen: No pain, nausea, vomiting, diarrhea or constipation Musculoskeletal: (+) back pain, No joint pain, calf pain, swelling Neurologic: No weakness, numbness/tingling, or balance problems Psychiatric: No anxiety or depression Skin: No rash or itch Physical Exam Physical Exam: PHYSICAL EXAM: General: awake, alert, no apparent distress Head: Normocephalic, atraumatic ENT: PERRLA, EOMI, no pharyngeal exudate, mucous membranes moist Neuro: AAO x 3, speech clear and appropriate, strength intact bilaterally 5/5, sensation intact and equal all extremities and dermatomes, no pronator drift Chest: equal rise and fall of the chest, on BiPAP without distress, inspiratory and expiratory wheezing bilaterally throughout, crackles in base, no stridor Cardiac: Regular rate and rhythm, telemetry reviewed, skin warm dry, cap refill <3 seconds, peripheral pulses +2 no JVD, no murmur, trace edema to bilateral lower extremities GI: NABS x 4 quadrants, soft, nontender to palpation, no rebound, guarding or tenderness : Spontaneously voiding, no pain, no CVA tenderness, MSK: Chest wall pain bilaterally anterior, on the side of both ribs and intercostals around the back. no pain along the spinal column Psych: Normal mood and affect Skin: no rash or erythema Results & Data Results & Data ([facility]) Vital Signs (Past 12 Hours) Vital Signs Temp Pulse Pulse Resp BP BP Pulse Ox 05/06/22 20:53 05/06/22 18:57 90 22 98 05/06/22 18:05 99 H 30 H 98 05/06/22 20:08 99 H 28 H 30 L 05/06/22 18:58 87 19 143/76 H 98 05/06/22 17:06 95 H 20 100 05/06/22 16:47 94 H 34 H 100 05/06/22 16:43 95 H 30 H 125/104 H 100 05/06/22 16:43 100 05/06/22 16:35 05/06/22 16:21 36.4 C L 94 H 34 H 125/103 H 100 05/06/22 16:20 35 H 100 O2 Del Method O2 Flow Rate FiO2 05/06/22 20:53 BiPAP 05/06/22 18:57 30 05/06/22 18:05 30 05/06/22 20:08 BiPAP 05/06/22 18:58 CPAP 05/06/22 17:06 CPAP 05/06/22 16:47 BiPAP 14 30 05/06/22 16:43 CPAP 05/06/22 16:43 CPAP 05/06/22 16:35 CPAP 05/06/22 16:21 CPAP 05/06/22 16:20 40 Laboratory Results Abnormal lab results 05/06/22 05/06/22 Range/Units 17:15 17:15 MCHC 31.8 L (32.0-36.0) g/dL RDW Std Deviation 48.9 H (36.4-46.3) fL Immature Gran # (Auto) 0.03 H (0.00-0.02) K/uL Chloride 113 H (98-107) mmol/L Glucose 168 H (70-99(Fasting)) mg/dl Diagnostic Findings Chest X-Ray 05/06/22 16:59 SINGLE VIEW CHEST CLINICAL HISTORY: Dyspnea. FINDINGS: An AP, portable, upright chest radiograph is compared to chest x-ray and chest CT dated 01/21/2022. The heart is enlarged. The pulmonary vasculature is noncongested. There is mild bibasilar atelectasis. The lungs and pleural spaces are otherwise clear. No pneumothorax is seen. The bony thorax is grossly intact. IMPRESSION: Cardiomegaly with no active disease in the chest. ACT 112: Negative or not required by law. Electronically signed by: Marin De La Rosa M.D. 05/06/2022 5:34 PM Chest CTA 05/06/22 17:12 CT ANGIOGRAM OF THE CHEST CLINICAL HISTORY: Dyspnea. Chest tightness. COMPARISON STUDY: Chest x-ray dated 05/06/2022. Chest CT dated 01/21/2022. TECHNIQUE: Following the IV administration of 119 cc of Optiray 320, CT angiogram of the chest was performed from the upper abdomen to the thoracic inlet utilizing the pulmonary embolus protocol. Images are reviewed in the axial, sagittal, and coronal planes. 3-D MIPS images are created and assessed. IV contrast was administered without complication. A dose lowering technique was utilized adhering to the principles of ALARA. CT DOSE: 667.99 mGy.cm FINDINGS: Thyroid: Mildly enlarged and heterogeneous. Thoracic aorta: There is mild atherosclerotic calcification of the thoracic aorta, which is normal in caliber and demonstrates standard 3-vessel arch anatomy. No dissection is seen. Pulmonary vasculature: The pulmonary trunk is normal in caliber. There are no filling defects identified in main, lobar, or segmental pulmonary branches to suggest pulmonary embolus. Heart: The heart is enlarged and without pericardial effusion. There are coronary artery calcifications. Lungs and pleural spaces: Mild emphysematous change is noted at the apices. There is trace right pleural effusion and dependent atelectasis. No airspace consolidation is seen typical for pneumonia. Intralobular septal thickening is noted in the lower lobes. The trachea and central airways appear clear. Mediastinum: There is no mediastinal lymphadenopathy. Mary Jo: Clear. Axillae: There is no axillary lymphadenopathy. Upper abdomen: Partially visualized upper abdominal viscera is within normal limits. Skeletal structures: The skeletal structures are osteopenic. Degenerative change is noted throughout the thoracic spine. No lytic or blastic bony lesions are seen. IMPRESSION: 1. There is no evidence of pulmonary embolus in the main, lobar, or segmental pulmonary arteries. 2. Cardiomegaly and mild emphysema. 3. Mild intralobular septal thickening suggests fluid overload/congestive failure. Clinical correlation will be required. 4. Trace right pleural effusion. 5. There is no airspace consolidation typical for pneumonia. 6. Additional findings as above. ACT 112: Negative or not required by law. Electronically signed by: Marin De La Rosa M.D. 05/06/2022 7:30 PM Medications Administered Home Medications nicotine 21 mg/24 hr daily transdermal patch (Nicoderm CQ) 21 mg transdermal QAM #30 ea 01/26/22 [Rx Confirmed 05/06/22] albuterol sulfate 90 mcg/actuation aerosol inhaler 2 puff inhalation Q6 PRN Shortness Of Breath Or Wheezing #18 grams 05/03/22 [Rx Confirmed 05/06/22] benzonatate 100 mg capsule 100 mg PO Q8H PRN cough #30 caps 05/03/22 [Rx Confirmed 05/06/22] cyclobenzaprine 5 mg tablet 5 mg PO TID PRN muscle spasm #30 tabs 05/03/22 [Rx Confirmed 05/06/22] diclofenac sodium 1 % topical gel 2 g topical QID PRN Pain #100 grams 05/03/22 [Rx Confirmed 05/06/22] furosemide 20 mg tablet 20 mg PO DAILY #90 tabs 05/03/22 [Rx Confirmed 05/06/22] hydrocortisone 1 %-pramoxine 1 % rectal foam (Proctofoam HC) 1 applic NE BID PRN hemorrhoids #10 grams 05/03/22 [Rx Confirmed 05/06/22] ipratropium bromide 17 mcg/actuation HFA aerosol inhaler (Atrovent HFA) 2 puff inhalation TID #12.9 grams 05/03/22 [Rx Confirmed 05/06/22] lisinopril 10 mg tablet 10 mg PO DAILY #90 tabs 05/03/22 [Rx Confirmed 05/06/22] metformin 500 mg tablet,extended release 24 hr 500 mg PO QPM #90 tabs 05/03/22 [Rx Confirmed 05/06/22] mometasone-formoterol HFA 200 mcg-5 mcg/actuation aerosol inhaler (Dulera) 2 puff inhalation BID #13 grams 05/03/22 [Rx Confirmed 05/06/22] nitroglycerin 0.4 mg sublingual tablet (Nitrostat) 0.4 mg sublingual UD PRN Chest Pain #25 tabs 05/03/22 [Rx Confirmed 05/06/22] pantoprazole 40 mg tablet,delayed release (Protonix) 40 mg PO DAILY #90 tabs 05/03/22 [Rx Confirmed 05/06/22] ipratropium 0.5 mg-albuterol 3 mg (2.5 mg base)/3 mL nebulization soln 3 ml NEB Q6H PRN wheezing/SOB/cough 05/06/22 [History Confirmed 05/06/22] rivaroxaban 20 mg tablet (Xarelto) 20 mg PO QPM 05/06/22 [History Confirmed 04/22 03/13] Active Medications Lidocaine (Lidocaine 5% 1 Patch) 1 patch TD QAM KARLA Stop: 06/06/22 08:59 Methylprednisolone (Methylprednisolone 40 Mg/Ml Vial) 40 mg IV Q8 [facility] Stop: 06/05/22 21:59 Miscellaneous (Remove Lidoderm Patch) 1 each N/A DAILY@2100 [facility] Stop: 06/06/22 20:59 Discontinued Medications Albuterol (Albut/Ipratrop 3mg/0.5mg Neb 3 Ml Vial) Confirm Administered Dose 12 ml .ROUTE .STK-MED ONE Stop: 05/06/22 16:45 Last Admin: 05/06/22 16:47 Dose: 12 ml Documented By: [facility] Albuterol (Albut/Ipratrop 3mg/0.5mg Neb 3 Ml Vial) 12 ml NEB ONE ONE; Protocol Stop: 05/06/22 19:54 Last Admin: 05/06/22 20:07 Dose: 12 ml Documented By: JARRELL Budesonide (Budesonide 0.25 Mg/2 Ml Vial (Pulmicort)) 0.25 mg NEB NOW STA Stop: 05/06/22 20:47 Last Admin: 05/06/22 20:55 Dose: 0.25 mg Documented By: JARRELL Fentanyl Citrate (Fentanyl Citrate 100 Mcg/2 Ml Vial) 50 mcg IV NOW STA Stop: 05/06/22 17:13 Last Admin: 05/06/22 17:26 Dose: 50 mcg Documented By: [facility] Furosemide (Furosemide Inj 20 Mg/2 Ml Vial) 20 mg IV ONE ONE Stop: 05/06/22 19:43 Last Admin: 05/06/22 19:57 Dose: 20 mg Documented By: Magnesium Sulfate/Dextrose (Magnesium Sulfate / D5w) 1 gm in 100 mls @ 600 mls/hr IV Q10M [facility] Stop: 05/06/22 17:18 Last Infusion: 05/06/22 18:11 Dose: 0 mls/hr Documented By: [facility] Admin: 05/06/22 17:47 Dose: 600 mls/hr Documented By: [facility] Infusion: 05/06/22 17:45 Dose: 0 mls/hr Documented By: [facility] Admin: 05/06/22 17:26 Dose: 600 mls/hr Documented By: [facility] Ioversol (Optiray 320 125ml) 119 ml IV ONCE ONE Stop: 05/06/22 19:09 Last Admin: 05/06/22 19:11 Dose: 119 ml Documented By: [facility] ECG Additional Comments: Normal sinus rhythm Possible Left atrial enlargement Left ventricular hypertrophy Abnormal ECG When compared with ECG of 21-JAN-2022 17:05, No significant change was found Code Status & VTE Plan Code Status CODE: FULL VTE: SCD, Xarelto VTE Prophylaxis Plan VTE Prophylaxis will be ordered: Yes Supervising Physician Co-Signing Physician Notes Patient seen and examined, chart reviewed, case discussed with JOSE F Shane and I agree with the assessment and plan as above. In brief, patient is a 56yo female with history of asthma and CHF presenting with dyspnea, wheeze and chest wall discomfort. Symptoms progressive over the last several days BiPAP in ER with improvement in symptoms. Difficulty removing mask as patient becomes tachypneic Adequate oxygenation and ventilation - BiPAP 12/6, 30% FiO2 On exam she is anxious in appearance, NAD, BiPAP in place Skin - warm, dry, intact HEENT - MMM, Neck supple Heart - +S1/S2, regular Lungs - tachypneic, shallow breaths, end-expiratory wheezing, no rhonchi Abd - +BS, soft, NT/ND Ext - no edema Labs and images reviewed. Possible volume overload noted on CTA - no PE or infection Assessment/Plan - 56yo female with history of asthma, CHF presenting with progressive dyspnea, wheeze as well as chest wall discomfort -Lasix given, monitor response and redose -Asthma treatment as above with inhaled steroids and singulair as well -management of chest wall pain with topical lidoderm -Remainder as above PG Care Time/CCT Total # of Minutes Spent Total Time Spent with Patient: Total time spent is greater than 50% in coordination of care (as documented) at patient's floor/unit and/or counseling patient: Coding Level of Care Code 68066 Initial Inpt Care Lvl 3 Diagnoses Asthma J45.909 Chest pain R07.9 Chronic diastolic congestive heart failure I50.32 GERD (gastroesophageal reflux disease) K21.9 Osteoarthritis M19.90 DMII (diabetes mellitus, type 2) E11.9
[2022-05-06 21:08] LABS: Base Excess VBG -4.7 mEq/L; HCO3 VBG 20 mmol/L; Oxygen Saturation VBG 98.9 %; PCO2 VBG 37 mmHg (38-50); PO2 VBG 98 mmHg; pH VBG 7.35 (7.36-7.41)
[2022-05-06 22:37] LABS: Appearance Urine Clear (Clear); Bacteria Urine Automated Negative (Negative); Bilirubin Urine Negative (Negative); Blood Urine Negative (Negative); Cast Urine Automated 0 /lpf (0-5); Color Urine Yellow; Glucose Urine UA 2+ (Negative); Ketones Urine Negative (Negative); Leukocyte Esterase Urine Trace (Negative); Nitrite Urine Negative (Negative); Protein Urine Negative (Negative); RBC Urine Automated 0-4 /hpf (0-4); Specific Gravity Urine 1.014 (1.000-1.030); Urobilinogen Urine Negative (Negative)
[2022-05-07] MEDS ORDERED: CARBOHYDRATES FOR HYPOGLYCEMIA PO PRN
[2022-05-07] MEDS ORDERED: DEXTROSE 50% 50 ML SYRINGE IV PRN
[2022-05-07] MEDS ORDERED: MONTELUKAST SODIUM 10 MG TABLET PO ONE
[2022-05-07] MEDS ORDERED: GLUCAGON FOR INJ 1 MG VIAL SQ PRN
[2022-05-07] MEDS ORDERED: GLUCOSE 40% GEL 15 GM TUBE PO PRN
[2022-05-07] MEDS ORDERED: GLUCOSE 10 TAB/TUBE PO PRN
[2022-05-07] MEDS ORDERED: PNEUMOCOCCAL POLYSACCHARIDES 25 MCG/0.5 ML VIAL/SYR IM ONE (00:24)
[2022-05-07] MEDS: ALBUT/IPRATROP 3MG/0.5MG NEB 3 ML VIAL NEB SCH ×7 (00:37→22:43)
[2022-05-07] MEDS: CYCLOBENZAPRINE HCL 5 MG TAB PO PRN ×3 (00:43→18:44)
[2022-05-07] MEDS: RIVAROXABAN 20 MG TAB PO SCH ×2 (00:43→20:55)
[2022-05-07] MEDS: INSULIN ASPART PER UNIT SC SCH ×5 (00:59→21:06)
[2022-05-07] MEDS: methylPREDNISolone 40 MG in SYRINGE 0 ML IV SCH ×3 (06:41→22:48)
[2022-05-07 08:17] LABS: iSTAT Creatinine 0.9 mg/dl (0.6-1.3); iSTAT Hemoglobin 12.6 g/dl (12.0-16.0); iSTAT Ionized Calcium 1.23 mmol/l (1.12-1.32); iSTAT Potassium 3.7 mmol/L (3.3-5.0)
[2022-05-07] MEDS: FUROSEMIDE INJ 20 MG/2 ML VIAL IV SCH (08:18)
[2022-05-07] MEDS: NICOTINE 21 MG/24 HR TDSY TD SCH (08:18)
[2022-05-07] MEDS: PANTOprazole 40 MG TAB PO SCH (08:19)
[2022-05-07] MEDS: lisinopril 10 MG TAB PO SCH (08:19)
[2022-05-07] MEDS: LIDOCAINE 5% 1 PATCH TD SCH (08:19)
[2022-05-07 08:26] LABS: Basophils # (auto) 0.01 K/uL (0-0.2); Basophils % (auto) 0.1 %; Hematocrit (blood only) 38.6 % (34.1-44.9); Hemoglobin 12.5 g/dl (12.0-16.0); Immature Granulocytes # (auto) 0.08 K/uL (0.00-0.02); Immature Granulocytes % (auto) 0.7 %; Lymphocytes # (auto) 1.19 K/uL (1.2-3.4); Lymphocytes % (auto) 10.1 %; Mean Corpuscular Hemoglobin 31.1 pg (25.0-34.0); Mean Corpuscular Hgb Conc 32.4 g/dL (32.0-36.0); Mean Platelet Volume 11.4 fL (9.4-12.3); Monocytes # (auto) 0.33 K/uL (0.24-0.82); Monocytes % (auto) 2.8 %; Neutrophils # (auto) 10.14 K/uL (1.4-6.5); Neutrophils % (auto) 86.3 %; Platelet Count 216 K/uL (130-400); RDW Coefficient of Variation 13.8 % (11.5-14.5); Red Blood Count 4.02 M/uL (3.93-5.22); White Blood Count 11.75 K/ul (4.8-10.8)
[2022-05-07] MEDS ORDERED: FUROSEMIDE 20 MG TAB PO SCH (09:00)
[2022-05-07 09:15] LABS: Anion Gap 6 (3-11); BUN Creatinine Ratio 24.3 (10-20); Blood Urea Nitrogen 17 mg/dl (6-23); C Reactive Protein < 0.50 mg/dl (0-0.5); Calcium 9.1 mg/dl (8.5-10.1); Carbon Dioxide 23 mmol/L (21-32); Chloride 110 mmol/L (98-107); Creatinine Clr Calc Pharmacy 111.4 ml/min; Est GFR (African American) 111.5 ml/min; Est GFR (Non-African American) 96.2 ml/min; Glucose 241 mg/dl (70-99(Fasting)); Magnesium 2.3 mg/dl (1.7-2.4); Sodium 139 mmol/L (136-145)
--- NOTE | 2022-05-07 11:06 | Electrocardiogram Report ---
Test Reason : Blood Pressure : / mmHG Vent. Rate : 092 BPM Atrial Rate : 092 BPM P-R Int : 160 ms QRS Dur : 080 ms QT Int : 384 ms P-R-T Axes : 033 003 038 degrees QTc Int : 474 ms Poor data quality, interpretation may be adversely affected Normal sinus rhythm Left atrial enlargement Left ventricular hypertrophy Abnormal ECG When compared with ECG of 21-JAN-2022 17:05, No significant change was found Confirmed by Dwayne Guy ([id number]) on 05/07/2022 11:06:16 AM Referred By: REFERRED SELF Confirmed By:Dwayne Guy
--- NOTE | 2022-05-07 11:31 | Hospitalist Progress Note ---
Date of Service May 07, 2022 Assessment & Plan (1) Asthma: Plan: With acute asthma exacerbation Patient presents with chest wall pain, dyspnea, and tachypnea, wheezing, initially requiring BiPAP CTA is negative for infectious process or PE or any pericardial effusion but does have trace right pleural effusion and atelectasis. WIth mildly elevated EOS count as well as CHF component with pulmonary edema and pleural effusion. Reproducible chest wall pain also limiting her inspiratory effort. - Received 2 hour long EDUARD nebulizers, Inhaled corticosteroid, IV steroid, and 2 GM Magnesium in ER- VBG normal - Without evidence of hypoxia - Mild increase EOS- received one dose Montelukast 10mg and on steroids, EOS now 0 - Last follow up with Pulmonary in 09/12 with PFTS - pulmonary function test 08/19/2021 with slight reduction in FVC and FEV1- Albuterol, Atrovent, Dulera - Diuresed 20mg IV Lasix x 2 doses, no BNP checked, has preserved EF on ECHO - Continue scheduled nebulizers - Continue methylpred 40mg IV 8h - CPAP as needed for resp distress -add on guaifenesin DM and tesslon perles prn for cough (2) Chest pain: Plan: Hypersensitive non-cardiac chest wall pain- appears as a chronic problem dating back to 2019 but now with chronic flare ECG no ischemic changes and trop neg - This is primarily keeping her from full inspiratory effort -most likely 2/2 frequent cough, MSK in nature ESR mildly elevated for age at 39 but not overly concerning, CRP normal - she denies any physical activity or lifting or injury - Lidocaine patch placed to right side- eval for any effect - Continue PRN Cyclobenzaprine (3) Chronic diastolic congestive heart failure: Plan: Follows with heart failure clinic - Lasix as above IV and convert to po home dose tomorrow - Continue ACEi (4) GERD (gastroesophageal reflux disease): Plan: Continue with PPI (5) Osteoarthritis: Plan: Bilateral knee and back - previously received injections with Durolane (6) DMII (diabetes mellitus, type 2): Plan: with hyperglycemia 2/2 steroids add on Lantus 8 units daily increase SSI hold home metformin (7) History of pulmonary embolism: Plan: continue Xarelto Plan Dispo-continued stay on tele Admission and Anticipated Discharge Date Admission Date: May 06, 2022 Subjective Pt still having severe coughing fits when she takes a deep breath. Pain persistent and worse with cough in anterior chest wall and all across her back. POx normal but prefers to be on CPAP. Has a h/o hospitalizations for asthma and has "almost" been intubated but has not. No nausea or abd pain, no diarrhea. Tele with NSR, rates 80-90s Review of Systems Review of Systems: All systems reviewed & are unremarkable except as noted in HPI & below Physical Exam Constitutional: WD/WN, vitals as above Eyes: + anicteric sclerae ENMT: CPAP in place Neck: trachea midline, no thyromegaly Respiratory: normal respiratory effort and + cough; no labored breathing Auscultation: + wheezes (diffuse exp wheezes); no crackles and no rhonchi Cardiovascular: RRR, no murmur, no edema Chest (Breasts): Chest: normal inspection of chest Gastrointestinal (Abdomen): normal bowel sounds, soft, nontender, no hepatosplenomegaly Musculoskeletal: Extremities: extremities normal to inspection; no cyanosis and no clubbing Skin: no rashes, warm and dry Neurologic: moves all extremities and awake; no focal motor deficits Psychiatric: A+Ox3, euthymic affect Lymphatic: no lymphedema Results & Data Results & Data ([facility]) Vital Signs (Past 12 Hours) Vital Signs Temp Pulse Pulse Resp BP Pulse Ox O2 Del Method 05/07/22 10:24 103 H 36 H 100 05/07/22 10:24 103 H 36 H 100 CPAP 05/07/22 08:15 36.6 C 90 18 138/67 99 BiPAP 05/07/22 07:08 83 19 98 05/07/22 07:08 83 19 98 CPAP 05/07/22 03:00 36.8 C 93 H 20 138/84 99 05/07/22 03:15 101 H 19 97 05/07/22 03:15 101 H 19 97 CPAP 05/07/22 00:05 97 H 05/07/22 00:38 101 H 37 H 98 BiPAP 05/06/22 23:45 BiPAP 05/07/22 00:00 36.3 C L 94 H 20 129/79 99 BiPAP FiO2 05/07/22 10:24 21 05/07/22 10:24 21 05/07/22 08:15 05/07/22 07:08 21 05/07/22 07:08 21 05/07/22 03:00 05/07/22 03:15 21 05/07/22 03:15 05/07/22 00:05 05/07/22 00:38 24 05/06/22 23:45 05/07/22 00:00 24 Laboratory Results 05/07/22 05/07/22 05/07/22 Range/Units 11:09 09:28 08:03 WBC (4.8-10.8) K/ul RBC (3.93-5.22) M/uL Hgb (12.0-16.0) g/dl POC Hgb (12.0-16.0) g/dl Hct (34.1-44.9) % POC Hct (37-47) % MCV (80.0-100.0) fL MCH (25.0-34.0) pg MCHC (32.0-36.0) g/dL RDW Std Deviation (36.4-46.3) fL RDW Coeff of Majo (11.5-14.5) % Plt Count (130-400) K/uL MPV (9.4-12.3) fL Immature Gran % (Auto) % Neut % (Auto) % Lymph % (Auto) % [place] % (Auto) % Eos % (Auto) % Baso % (Auto) % Neut # (Auto) (1.4-6.5) K/uL Lymph # (Auto) (1.2-3.4) K/uL [place] # (Auto) (0.24-0.82) K/uL Eos # (Auto) (0-0.50) K/uL Baso # (Auto) (0-0.2) K/uL Immature Gran # (Auto) (0.00-0.02) K/uL ESR (0-30) mm/hr PT (9.0-12.0) Seconds INR (0.9-1.1) APTT (21.0-31.0) Seconds PTT Ratio VBG pH (7.36-7.41) VBG pCO2 (38-50) mmHg VBG pO2 mmHg VBG HCO3 mmol/L VBG O2 Saturation % VBG Base Excess mEq/L POC Sodium (135-144) mmol/L Sodium 139 (136-145) mmol/L POC Potassium (3.3-5.0) mmol/L Potassium 4.2 TNP (3.5-5.1) mmol/L POC Chloride (101-112) mmol/L Chloride 110 H (98-107) mmol/L Carbon Dioxide 23 (21-32) mmol/L POC Total CO2 (24-31) mmol/L Anion Gap 6 (3-11) POC Anion Gap (16-25) mmol/L POC BUN (7-18) mg/dl BUN 17 (6-23) mg/dl Creatinine 0.70 (0.6-1.2) mg/dl POC Creatinine (0.6-1.3) mg/dl Est Cr Clr Drug Dosing 111.4 ml/min Est GFR ( Amer) 111.5 ml/min Est GFR (Non-Af Amer) 96.2 ml/min BUN/Creatinine Ratio 24.3 H (10-20) Glucose 241 H (70-99(Fasting)) mg/dl POC Glucose 244 H (70-99) mg/dl POC Glucose (other) (70-99) mg/dl Calcium 9.1 (8.5-10.1) mg/dl POC Ioniz Calcium Wilfredo (1.12-1.32) mmol/l Magnesium 2.3 (1.7-2.4) mg/dl Total Bilirubin (0.2-1.0) mg/dl AST (13-39) U/L ALT (7-52) U/L Alkaline Phosphatase (34-104) U/L Troponin I High Sens (0-14) pg/ml C-Reactive Protein < 0.50 (0-0.5) mg/dl Total Protein (6.0-8.3) gm/dl Albumin (3.4-5.0) gm/dl Globulin (2.5-4.0) gm/dl Albumin/Globulin Ratio (0.9-2) Lipase (11-82) U/L HCG, Qual (Negative) Urine Color Urine Appearance (Clear) Urine pH (4.5-7.5) Ur Specific [place] (1.000-1.030) Urine Protein (Negative) Urine Glucose (UA) (Negative) Urine Ketones (Negative) Urine Blood (Negative) Urine Nitrite (Negative) Urine Bilirubin (Negative) Urine Urobilinogen (Negative) Ur Leukocyte Esterase (Negative) Urine WBC (Auto) (0-5) /hpf Urine RBC (Auto) (0-4) /hpf U Hyaline Cast (Auto) (0-5) /lpf U Epithel Cells (Auto) (0-5) /lpf Urine Bacteria (Auto) (Negative) SARS-CoV-2 (PCR) (Negative) Influenza Type A (PCR) (Neg) Influenza Type B (PCR) (Neg) RSV (RT-PCR) (Neg) 05/07/22 05/07/22 05/07/22 Range/Units 08:03 08:03 07:14 WBC 11.75 H (4.8-10.8) K/ul RBC 4.02 (3.93-5.22) M/uL Hgb 12.5 (12.0-16.0) g/dl POC Hgb (12.0-16.0) g/dl Hct 38.6 (34.1-44.9) % POC Hct (37-47) % MCV 96.0 (80.0-100.0) fL MCH 31.1 (25.0-34.0) pg MCHC 32.4 (32.0-36.0) g/dL RDW Std Deviation 49.0 H (36.4-46.3) fL RDW Coeff of Majo 13.8 (11.5-14.5) % Plt Count 216 (130-400) K/uL MPV 11.4 (9.4-12.3) fL Immature Gran % (Auto) 0.7 % Neut % (Auto) 86.3 % Lymph % (Auto) 10.1 % [place] % (Auto) 2.8 % Eos % (Auto) 0.0 % Baso % (Auto) 0.1 % Neut # (Auto) 10.14 H (1.4-6.5) K/uL Lymph # (Auto) 1.19 L (1.2-3.4) K/uL [place] # (Auto) 0.33 (0.24-0.82) K/uL Eos # (Auto) 0.00 (0-0.50) K/uL Baso # (Auto) 0.01 (0-0.2) K/uL Immature Gran # (Auto) 0.08 H (0.00-0.02) K/uL ESR 40 H (0-30) mm/hr PT (9.0-12.0) Seconds INR (0.9-1.1) APTT (21.0-31.0) Seconds PTT Ratio VBG pH (7.36-7.41) VBG pCO2 (38-50) mmHg VBG pO2 mmHg VBG HCO3 mmol/L VBG O2 Saturation % VBG Base Excess mEq/L POC Sodium (135-144) mmol/L Sodium (136-145) mmol/L POC Potassium (3.3-5.0) mmol/L Potassium (3.5-5.1) mmol/L POC Chloride (101-112) mmol/L Chloride (98-107) mmol/L Carbon Dioxide (21-32) mmol/L POC Total CO2 (24-31) mmol/L Anion Gap (3-11) POC Anion Gap (16-25) mmol/L POC BUN (7-18) mg/dl BUN (6-23) mg/dl Creatinine (0.6-1.2) mg/dl POC Creatinine (0.6-1.3) mg/dl Est Cr Clr Drug Dosing ml/min Est GFR ( Amer) ml/min Est GFR (Non-Af Amer) ml/min BUN/Creatinine Ratio (10-20) Glucose (70-99(Fasting)) mg/dl POC Glucose 235 H (70-99) mg/dl POC Glucose (other) (70-99) mg/dl Calcium (8.5-10.1) mg/dl POC Ioniz Calcium Wilfredo (1.12-1.32) mmol/l Magnesium (1.7-2.4) mg/dl Total Bilirubin (0.2-1.0) mg/dl AST (13-39) U/L ALT (7-52) U/L Alkaline Phosphatase (34-104) U/L Troponin I High Sens (0-14) pg/ml C-Reactive Protein (0-0.5) mg/dl Total Protein (6.0-8.3) gm/dl Albumin (3.4-5.0) gm/dl Globulin (2.5-4.0) gm/dl Albumin/Globulin Ratio (0.9-2) Lipase (11-82) U/L HCG, Qual (Negative) Urine Color Urine Appearance (Clear) Urine pH (4.5-7.5) Ur Specific [place] (1.000-1.030) Urine Protein (Negative) Urine Glucose (UA) (Negative) Urine Ketones (Negative) Urine Blood (Negative) Urine Nitrite (Negative) Urine Bilirubin (Negative) Urine Urobilinogen (Negative) Ur Leukocyte Esterase (Negative) Urine WBC (Auto) (0-5) /hpf Urine RBC (Auto) (0-4) /hpf U Hyaline Cast (Auto) (0-5) /lpf U Epithel Cells (Auto) (0-5) /lpf Urine Bacteria (Auto) (Negative) SARS-CoV-2 (PCR) (Negative) Influenza Type A (PCR) (Neg) Influenza Type B (PCR) (Neg) RSV (RT-PCR) (Neg) 05/06/22 05/06/22 05/06/22 Range/Units 23:58 23:56 22:18 WBC (4.8-10.8) K/ul RBC (3.93-5.22) M/uL Hgb (12.0-16.0) g/dl POC Hgb (12.0-16.0) g/dl Hct (34.1-44.9) % POC Hct (37-47) % MCV (80.0-100.0) fL MCH (25.0-34.0) pg MCHC (32.0-36.0) g/dL RDW Std Deviation (36.4-46.3) fL RDW Coeff of Majo (11.5-14.5) % Plt Count (130-400) K/uL MPV (9.4-12.3) fL Immature Gran % (Auto) % Neut % (Auto) % Lymph % (Auto) % [place] % (Auto) % Eos % (Auto) % Baso % (Auto) % Neut # (Auto) (1.4-6.5) K/uL Lymph # (Auto) (1.2-3.4) K/uL [place] # (Auto) (0.24-0.82) K/uL Eos # (Auto) (0-0.50) K/uL Baso # (Auto) (0-0.2) K/uL Immature Gran # (Auto) (0.00-0.02) K/uL ESR (0-30) mm/hr PT (9.0-12.0) Seconds INR (0.9-1.1) APTT (21.0-31.0) Seconds PTT Ratio VBG pH (7.36-7.41) VBG pCO2 (38-50) mmHg VBG pO2 mmHg VBG HCO3 mmol/L VBG O2 Saturation % VBG Base Excess mEq/L POC Sodium (135-144) mmol/L Sodium (136-145) mmol/L POC Potassium (3.3-5.0) mmol/L Potassium (3.5-5.1) mmol/L POC Chloride (101-112) mmol/L Chloride (98-107) mmol/L Carbon Dioxide (21-32) mmol/L POC Total CO2 (24-31) mmol/L Anion Gap (3-11) POC Anion Gap (16-25) mmol/L POC BUN (7-18) mg/dl BUN (6-23) mg/dl Creatinine (0.6-1.2) mg/dl POC Creatinine (0.6-1.3) mg/dl Est Cr Clr Drug Dosing ml/min Est GFR ( Amer) ml/min Est GFR (Non-Af Amer) ml/min BUN/Creatinine Ratio (10-20) Glucose (70-99(Fasting)) mg/dl POC Glucose 368 H* 351 H* (70-99) mg/dl POC Glucose (other) (70-99) mg/dl Calcium (8.5-10.1) mg/dl POC Ioniz Calcium Wilfredo (1.12-1.32) mmol/l Magnesium (1.7-2.4) mg/dl Total Bilirubin (0.2-1.0) mg/dl AST (13-39) U/L ALT (7-52) U/L Alkaline Phosphatase (34-104) U/L Troponin I High Sens (0-14) pg/ml C-Reactive Protein (0-0.5) mg/dl Total Protein (6.0-8.3) gm/dl Albumin (3.4-5.0) gm/dl Globulin (2.5-4.0) gm/dl Albumin/Globulin Ratio (0.9-2) Lipase (11-82) U/L HCG, Qual (Negative) Urine Color Yellow Urine Appearance Clear (Clear) Urine pH 5.0 (4.5-7.5) Ur Specific [place] 1.014 (1.000-1.030) Urine Protein Negative (Negative) Urine Glucose (UA) 2+ H (Negative) Urine Ketones Negative (Negative) Urine Blood Negative (Negative) Urine Nitrite Negative (Negative) Urine Bilirubin Negative (Negative) Urine Urobilinogen Negative (Negative) Ur Leukocyte Esterase Trace H (Negative) Urine WBC (Auto) 1-5 (0-5) /hpf Urine RBC (Auto) 0-4 (0-4) /hpf U Hyaline Cast (Auto) 0 (0-5) /lpf U Epithel Cells (Auto) 5-10 H (0-5) /lpf Urine Bacteria (Auto) Negative (Negative) SARS-CoV-2 (PCR) (Negative) Influenza Type A (PCR) (Neg) Influenza Type B (PCR) (Neg) RSV (RT-PCR) (Neg) 05/06/22 05/06/22 05/06/22 Range/Units 20:45 17:30 17:26 WBC (4.8-10.8) K/ul RBC (3.93-5.22) M/uL Hgb (12.0-16.0) g/dl POC Hgb 12.6 (12.0-16.0) g/dl Hct (34.1-44.9) % POC Hct 37 (37-47) % MCV (80.0-100.0) fL MCH (25.0-34.0) pg MCHC (32.0-36.0) g/dL RDW Std Deviation (36.4-46.3) fL RDW Coeff of Majo (11.5-14.5) % Plt Count (130-400) K/uL MPV (9.4-12.3) fL Immature Gran % (Auto) % Neut % (Auto) % Lymph % (Auto) % [place] % (Auto) % Eos % (Auto) % Baso % (Auto) % Neut # (Auto) (1.4-6.5) K/uL Lymph # (Auto) (1.2-3.4) K/uL [place] # (Auto) (0.24-0.82) K/uL Eos # (Auto) (0-0.50) K/uL Baso # (Auto) (0-0.2) K/uL Immature Gran # (Auto) (0.00-0.02) K/uL ESR (0-30) mm/hr PT (9.0-12.0) Seconds INR (0.9-1.1) APTT (21.0-31.0) Seconds PTT Ratio VBG pH 7.35 L (7.36-7.41) VBG pCO2 37 L (38-50) mmHg VBG pO2 98 mmHg VBG HCO3 20 mmol/L VBG O2 Saturation 98.9 % VBG Base Excess -4.7 mEq/L POC Sodium 146 H (135-144) mmol/L Sodium (136-145) mmol/L POC Potassium 3.7 (3.3-5.0) mmol/L Potassium (3.5-5.1) mmol/L POC Chloride 111 (101-112) mmol/L Chloride (98-107) mmol/L Carbon Dioxide (21-32) mmol/L POC Total CO2 24 (24-31) mmol/L Anion Gap (3-11) POC Anion Gap 16.0 (16-25) mmol/L POC BUN 15 (7-18) mg/dl BUN (6-23) mg/dl Creatinine (0.6-1.2) mg/dl POC Creatinine 0.9 (0.6-1.3) mg/dl Est Cr Clr Drug Dosing ml/min Est GFR ( Amer) ml/min Est GFR (Non-Af Amer) ml/min BUN/Creatinine Ratio (10-20) Glucose (70-99(Fasting)) mg/dl POC Glucose (70-99) mg/dl POC Glucose (other) 170 H (70-99) mg/dl Calcium (8.5-10.1) mg/dl POC Ioniz Calcium Wilfredo 1.23 (1.12-1.32) mmol/l Magnesium (1.7-2.4) mg/dl Total Bilirubin (0.2-1.0) mg/dl AST (13-39) U/L ALT (7-52) U/L Alkaline Phosphatase (34-104) U/L Troponin I High Sens (0-14) pg/ml C-Reactive Protein (0-0.5) mg/dl Total Protein (6.0-8.3) gm/dl Albumin (3.4-5.0) gm/dl Globulin (2.5-4.0) gm/dl Albumin/Globulin Ratio (0.9-2) Lipase (11-82) U/L HCG, Qual (Negative) Urine Color Urine Appearance (Clear) Urine pH (4.5-7.5) Ur Specific [place] (1.000-1.030) Urine Protein (Negative) Urine Glucose (UA) (Negative) Urine Ketones (Negative) Urine Blood (Negative) Urine Nitrite (Negative) Urine Bilirubin (Negative) Urine Urobilinogen (Negative) Ur Leukocyte Esterase (Negative) Urine WBC (Auto) (0-5) /hpf Urine RBC (Auto) (0-4) /hpf U Hyaline Cast (Auto) (0-5) /lpf U Epithel Cells (Auto) (0-5) /lpf Urine Bacteria (Auto) (Negative) SARS-CoV-2 (PCR) NEGATIVE (Negative) Influenza Type A (PCR) Negative (Neg) Influenza Type B (PCR) Negative (Neg) RSV (RT-PCR) Negative (Neg) 05/06/22 05/06/22 05/06/22 Range/Units 17:15 17:15 17:15 WBC (4.8-10.8) K/ul RBC (3.93-5.22) M/uL Hgb (12.0-16.0) g/dl POC Hgb (12.0-16.0) g/dl Hct (34.1-44.9) % POC Hct (37-47) % MCV (80.0-100.0) fL MCH (25.0-34.0) pg MCHC (32.0-36.0) g/dL RDW Std Deviation (36.4-46.3) fL RDW Coeff of Majo (11.5-14.5) % Plt Count (130-400) K/uL MPV (9.4-12.3) fL Immature Gran % (Auto) % Neut % (Auto) % Lymph % (Auto) % [place] % (Auto) % Eos % (Auto) % Baso % (Auto) % Neut # (Auto) (1.4-6.5) K/uL Lymph # (Auto) (1.2-3.4) K/uL [place] # (Auto) (0.24-0.82) K/uL Eos # (Auto) (0-0.50) K/uL Baso # (Auto) (0-0.2) K/uL Immature Gran # (Auto) (0.00-0.02) K/uL ESR 25 (0-30) mm/hr PT (9.0-12.0) Seconds INR (0.9-1.1) APTT (21.0-31.0) Seconds PTT Ratio VBG pH (7.36-7.41) VBG pCO2 (38-50) mmHg VBG pO2 mmHg VBG HCO3 mmol/L VBG O2 Saturation % VBG Base Excess mEq/L POC Sodium (135-144) mmol/L Sodium (136-145) mmol/L POC Potassium (3.3-5.0) mmol/L Potassium (3.5-5.1) mmol/L POC Chloride (101-112) mmol/L Chloride (98-107) mmol/L Carbon Dioxide (21-32) mmol/L POC Total CO2 (24-31) mmol/L Anion Gap (3-11) POC Anion Gap (16-25) mmol/L POC BUN (7-18) mg/dl BUN (6-23) mg/dl Creatinine (0.6-1.2) mg/dl POC Creatinine (0.6-1.3) mg/dl Est Cr Clr Drug Dosing ml/min Est GFR ( Amer) ml/min Est GFR (Non-Af Amer) ml/min BUN/Creatinine Ratio (10-20) Glucose (70-99(Fasting)) mg/dl POC Glucose (70-99) mg/dl POC Glucose (other) (70-99) mg/dl Calcium (8.5-10.1) mg/dl POC Ioniz Calcium Wilfredo (1.12-1.32) mmol/l Magnesium (1.7-2.4) mg/dl Total Bilirubin (0.2-1.0) mg/dl AST (13-39) U/L ALT (7-52) U/L Alkaline Phosphatase (34-104) U/L Troponin I High Sens (0-14) pg/ml C-Reactive Protein < 0.50 (0-0.5) mg/dl Total Protein (6.0-8.3) gm/dl Albumin (3.4-5.0) gm/dl Globulin (2.5-4.0) gm/dl Albumin/Globulin Ratio (0.9-2) Lipase (11-82) U/L HCG, Qual Negative (Negative) Urine Color Urine Appearance (Clear) Urine pH (4.5-7.5) Ur Specific [place] (1.000-1.030) Urine Protein (Negative) Urine Glucose (UA) (Negative) Urine Ketones (Negative) Urine Blood (Negative) Urine Nitrite (Negative) Urine Bilirubin (Negative) Urine Urobilinogen (Negative) Ur Leukocyte Esterase (Negative) Urine WBC (Auto) (0-5) /hpf Urine RBC (Auto) (0-4) /hpf U Hyaline Cast (Auto) (0-5) /lpf U Epithel Cells (Auto) (0-5) /lpf Urine Bacteria (Auto) (Negative) SARS-CoV-2 (PCR) (Negative) Influenza Type A (PCR) (Neg) Influenza Type B (PCR) (Neg) RSV (RT-PCR) (Neg) 05/06/22 05/06/22 05/06/22 Range/Units 17:15 17:15 17:15 WBC 7.84 (4.8-10.8) K/ul RBC 3.94 (3.93-5.22) M/uL Hgb 12.1 (12.0-16.0) g/dl POC Hgb (12.0-16.0) g/dl Hct 38.1 (34.1-44.9) % POC Hct (37-47) % MCV 96.7 (80.0-100.0) fL MCH 30.7 (25.0-34.0) pg MCHC 31.8 L (32.0-36.0) g/dL RDW Std Deviation 48.9 H (36.4-46.3) fL RDW Coeff of Majo 13.6 (11.5-14.5) % Plt Count 203 (130-400) K/uL MPV 11.4 (9.4-12.3) fL Immature Gran % (Auto) 0.4 % Neut % (Auto) 61.2 % Lymph % (Auto) 31.4 % [place] % (Auto) 5.6 % Eos % (Auto) 1.1 % Baso % (Auto) 0.3 % Neut # (Auto) 4.80 (1.4-6.5) K/uL Lymph # (Auto) 2.46 (1.2-3.4) K/uL [place] # (Auto) 0.44 (0.24-0.82) K/uL Eos # (Auto) 0.09 (0-0.50) K/uL Baso # (Auto) 0.02 (0-0.2) K/uL Immature Gran # (Auto) 0.03 H (0.00-0.02) K/uL ESR (0-30) mm/hr PT 10.4 (9.0-12.0) Seconds INR 1.0 (0.9-1.1) APTT 22.2 (21.0-31.0) Seconds PTT Ratio 0.8 VBG pH (7.36-7.41) VBG pCO2 (38-50) mmHg VBG pO2 mmHg VBG HCO3 mmol/L VBG O2 Saturation % VBG Base Excess mEq/L POC Sodium (135-144) mmol/L Sodium 143 (136-145) mmol/L POC Potassium (3.3-5.0) mmol/L Potassium 3.8 (3.5-5.1) mmol/L POC Chloride (101-112) mmol/L Chloride 113 H (98-107) mmol/L Carbon Dioxide 25 (21-32) mmol/L POC Total CO2 (24-31) mmol/L Anion Gap 5 (3-11) POC Anion Gap (16-25) mmol/L POC BUN (7-18) mg/dl BUN 16 (6-23) mg/dl Creatinine 0.99 (0.6-1.2) mg/dl POC Creatinine (0.6-1.3) mg/dl Est Cr Clr Drug Dosing 79.7 ml/min Est GFR ( Amer) 73.3 ml/min Est GFR (Non-Af Amer) 63.3 ml/min BUN/Creatinine Ratio 16.2 (10-20) Glucose 168 H (70-99(Fasting)) mg/dl POC Glucose (70-99) mg/dl POC Glucose (other) (70-99) mg/dl Calcium 8.9 (8.5-10.1) mg/dl POC Ioniz Calcium Wilfredo (1.12-1.32) mmol/l Magnesium 2.0 (1.7-2.4) mg/dl Total Bilirubin 0.3 (0.2-1.0) mg/dl AST 16 (13-39) U/L ALT 14 (7-52) U/L Alkaline Phosphatase 80 (34-104) U/L Troponin I High Sens 10.7 (0-14) pg/ml C-Reactive Protein (0-0.5) mg/dl Total Protein 6.4 (6.0-8.3) gm/dl Albumin 3.5 (3.4-5.0) gm/dl Globulin 2.9 (2.5-4.0) gm/dl Albumin/Globulin Ratio 1.2 (0.9-2) Lipase 36 (11-82) U/L HCG, Qual (Negative) Urine Color Urine Appearance (Clear) Urine pH (4.5-7.5) Ur Specific Rossiter (1.000-1.030) Urine Protein (Negative) Urine Glucose (UA) (Negative) Urine Ketones (Negative) Urine Blood (Negative) Urine Nitrite (Negative) Urine Bilirubin (Negative) Urine Urobilinogen (Negative) Ur Leukocyte Esterase (Negative) Urine WBC (Auto) (0-5) /hpf Urine RBC (Auto) (0-4) /hpf U Hyaline Cast (Auto) (0-5) /lpf U Epithel Cells (Auto) (0-5) /lpf Urine Bacteria (Auto) (Negative) SARS-CoV-2 (PCR) (Negative) Influenza Type A (PCR) (Neg) Influenza Type B (PCR) (Neg) RSV (RT-PCR) (Neg) PG Care Time/CCT Total # of Minutes Spent Total Time Spent with Patient: Total time spent is greater than 50% in coordination of care (as documented) at patient's floor/unit and/or counseling patient: Coding Level of Care Code 99127 Subseq Hosp Care Lvl 3 Diagnoses Asthma J45.909 Chest pain R07.9 Chronic diastolic congestive heart failure I50.32 GERD (gastroesophageal reflux disease) K21.9 Osteoarthritis M19.90 DMII (diabetes mellitus, type 2) E11.9 History of pulmonary embolism Z86.711
[2022-05-07] MEDS: guaiFENesin/DEXTROM SYRUP 200MG/20MG 10ML UDC PO PRN ×2 (11:38→18:44)
[2022-05-07] MEDS ORDERED: LANTUS PER UNIT CHARGE SQ SCH (11:45)
[2022-05-07] MEDS: ACETAMINOPHEN 325 MG TAB PO PRN ×2 (17:39→22:47)
[2022-05-07] MEDS: DICLOFENAC SOD 1% GEL 100 GM TUBE EXT PRN (22:49)
[2022-05-08] MEDS: ALBUT/IPRATROP 3MG/0.5MG NEB 3 ML VIAL NEB SCH ×6 (02:37→22:25)
[2022-05-08] MEDS: methylPREDNISolone 40 MG in SYRINGE 0 ML IV SCH ×3 (05:48→20:49)
[2022-05-08 06:55] LABS: BUN Creatinine Ratio 36.5 (10-20); Creatinine Clr Calc Pharmacy 92.2 ml/min; Est GFR (African American) 88.2 ml/min; Est GFR (Non-African American) 76.1 ml/min; Magnesium 2.3 mg/dl (1.7-2.4); Potassium 4.6 mmol/L (3.5-5.1)
[2022-05-08 06:58] LABS: Basophils # (auto) 0.02 K/uL (0-0.2); Basophils % (auto) 0.1 %; Hematocrit (blood only) 39.1 % (34.1-44.9); Hemoglobin 12.4 g/dl (12.0-16.0); Immature Granulocytes # (auto) 0.13 K/uL (0.00-0.02); Immature Granulocytes % (auto) 0.7 %; Lymphocytes # (auto) 1.48 K/uL (1.2-3.4); Lymphocytes % (auto) 8.3 %; Mean Corpuscular Hemoglobin 31.5 pg (25.0-34.0); Mean Corpuscular Hgb Conc 31.7 g/dL (32.0-36.0); Mean Corpuscular Volume 99.2 fL (80.0-100.0); Mean Platelet Volume 11.9 fL (9.4-12.3); Monocytes # (auto) 0.41 K/uL (0.24-0.82); Monocytes % (auto) 2.3 %; Neutrophils # (auto) 15.69 K/uL (1.4-6.5); Neutrophils % (auto) 88.6 %; Platelet Count 211 K/uL (130-400); RDW Coefficient of Variation 13.9 % (11.5-14.5); RDW Standard Deviation 51.1 fL (36.4-46.3); Red Blood Count 3.94 M/uL (3.93-5.22); White Blood Count 17.73 K/ul (4.8-10.8)
[2022-05-08] MEDS: LANTUS PER UNIT CHARGE SQ SCH (08:42)
[2022-05-08] MEDS: FUROSEMIDE INJ 20 MG/2 ML VIAL IV SCH (08:42)
[2022-05-08] MEDS: INSULIN ASPART PER UNIT SC SCH ×4 (08:42→20:49)
[2022-05-08] MEDS: LIDOCAINE 5% 1 PATCH TD SCH (08:43)
[2022-05-08] MEDS: PANTOprazole 40 MG TAB PO SCH (08:43)
[2022-05-08] MEDS: lisinopril 10 MG TAB PO SCH (08:43)
[2022-05-08] MEDS: NICOTINE 21 MG/24 HR TDSY TD SCH (08:44)
[2022-05-08] MEDS: guaiFENesin/DEXTROM SYRUP 200MG/20MG 10ML UDC PO PRN ×2 (08:45→20:35)
[2022-05-08] MEDS: BENZONATATE 100 MG CAPSULE PO PRN (12:16)
[2022-05-08] MEDS: DICLOFENAC SOD 1% GEL 100 GM TUBE EXT PRN ×2 (12:55→17:46)
[2022-05-08] MEDS ORDERED: MAGNESIUM SULFATE / D5W 1 GM/100 ML BAG IV ONE (13:17)
[2022-05-08] MEDS ORDERED: HYDROcodone/HOMATROPINE SYRUP 5MG/1.5MG 5ML UDP PO STA ×2 (13:18→15:20)
[2022-05-08] MEDS ORDERED: ALBUT/IPRATROP 3MG/0.5MG NEB 3 ML VIAL NEB STA (13:19)
--- NOTE | 2022-05-08 15:23 | Hospitalist Progress Note ---
Date of Service May 08, 2022 Assessment & Plan (1) Asthma: Plan: With acute asthma exacerbation Patient presents with chest wall pain, dyspnea, and tachypnea, wheezing, initially requiring CPAP,now not requiring CPAP but feels better wearing it CTA is negative for infectious process or PE or any pericardial effusion but does have trace right pleural effusion and atelectasis. WIth mildly elevated EOS count as well as CHF component with pulmonary edema and pleural effusion. Reproducible chest wall pain also limiting her inspiratory effort. - Received 2 hour long EDUARD nebulizers, Inhaled corticosteroid, IV steroid, and 2 GM Magnesium in ER- VBG normal - Without evidence of hypoxia - Mild increase EOS-started Montelukast 10mg daily and on steroids, EOS now 0 - Last follow up with Pulmonary in 09/12 with PFTS - pulmonary function test 08/19/2021 with slight reduction in FVC and FEV1- Albuterol, Atrovent, Dulera - Diuresed 20mg IV Lasix x 3 doses, no BNP checked, has preserved EF on ECHO - Continue scheduled nebulizers and give prn in between - Continue methylpred 40mg IV 8h - CPAP as needed for resp distress -continue guaifenesin DM and tesslon perles prn for cough -add on Hycodan 10mL po q6h prn cough -some anxiety component too but would hesitate to add on lorazepam as may further suppress drive to breathe -consult PULM for Monday given severe exacerbation (2) Chest pain: Plan: Hypersensitive non-cardiac chest wall pain- appears as a chronic problem dating back to 2019 but now with chronic flare ECG no ischemic changes and trop neg - This is primarily keeping her from full inspiratory effort -most likely 2/2 frequent cough, MSK in nature ESR mildly elevated for age at 39 but not overly concerning, CRP normal - she denies any physical activity or lifting or injury - Lidocaine patch placed to right side- eval for any effect - Continue PRN Cyclobenzaprine -add on Hycodan for cough which will also help chest wall pain (3) Chronic diastolic congestive heart failure: Plan: Follows with heart failure clinic - Lasix as above IV and convert to po home dose tomorrow - Continue ACEi (4) GERD (gastroesophageal reflux disease): Plan: Continue with PPI (5) Osteoarthritis: Plan: Bilateral knee and back - previously received injections with Durolane (6) DMII (diabetes mellitus, type 2): Plan: with hyperglycemia 2/2 steroids-worsening today increase Lantus to 15 units daily increase SSI further today hold home metformin (7) History of pulmonary embolism: Plan: CTA chest neg here for PE continue Xarelto Plan Dispo-continued stay on tele Admission and Anticipated Discharge Date Admission Date: May 06, 2022 Subjective Pt reports ongoing severe coughing fits. Added on hycodan 5mL and still no improvement. Still with pain throughout entire rib cage. Nonproductive cough, feels like mucus stuck in chest. Staying on CPAP all day long by choice. RN reports gets tachypneic without CPAP but POx stays normal. Coughing seems improved with CPAP in place. Is on FiO2 21% Tele with NSR, rates 80-100s Review of Systems Review of Systems: All systems reviewed & are unremarkable except as noted in HPI & below Physical Exam Constitutional: WD/WN, vitals as above Eyes: + anicteric sclerae Neck: trachea midline, no thyromegaly Respiratory: normal respiratory effort and + cough; no labored breathing Auscultation: + wheezes (diffuse exp wheezes); no crackles and no rhonchi Cardiovascular: RRR, no murmur, no edema Chest (Breasts): Chest: normal inspection of chest Gastrointestinal (Abdomen): normal bowel sounds, soft, nontender, no hepatosplenomegaly Musculoskeletal: Extremities: extremities normal to inspection; no cyanosis and no clubbing Skin: no rashes, warm and dry Neurologic: moves all extremities and awake; no focal motor deficits Psychiatric: Orientation: alert and oriented x 3 Affect: + anxious affect Lymphatic: no lymphedema Results & Data Results & Data ([facility]) Vital Signs (Past 12 Hours) Vital Signs Temp Pulse Pulse Resp BP Pulse Ox O2 Del Method 05/08/22 14:05 95 H 24 97 05/08/22 14:05 95 H 24 97 CPAP 05/08/22 12:13 36.8 C 100 H 18 116/76 99 CPAP 05/08/22 08:00 CPAP 05/08/22 11:17 102 H 23 98 05/08/22 11:15 103 H 23 98 CPAP 05/08/22 07:40 36.4 C L 90 20 133/86 99 CPAP 05/08/22 07:30 83 05/08/22 07:02 90 27 H 99 05/08/22 07:02 90 27 H 99 CPAP 05/08/22 03:35 36.3 C L 95 H 20 112/72 98 BiPAP FiO2 05/08/22 14:05 21 05/08/22 14:05 21 05/08/22 12:13 05/08/22 08:00 05/08/22 11:17 21 05/08/22 11:15 21 05/08/22 07:40 05/08/22 07:30 05/08/22 07:02 05/08/22 07:02 21 05/08/22 03:35 21 Laboratory Results 05/08/22 05/08/22 05/08/22 Range/Units 11:23 07:39 05:58 WBC (4.8-10.8) K/ul RBC (3.93-5.22) M/uL Hgb (12.0-16.0) g/dl Hct (34.1-44.9) % MCV (80.0-100.0) fL MCH (25.0-34.0) pg MCHC (32.0-36.0) g/dL RDW Std Deviation (36.4-46.3) fL RDW Coeff of Majo (11.5-14.5) % Plt Count (130-400) K/uL MPV (9.4-12.3) fL Immature Gran % (Auto) % Neut % (Auto) % Lymph % (Auto) % [place] % (Auto) % Eos % (Auto) % Baso % (Auto) % Neut # (Auto) (1.4-6.5) K/uL Lymph # (Auto) (1.2-3.4) K/uL [place] # (Auto) (0.24-0.82) K/uL Eos # (Auto) (0-0.50) K/uL Baso # (Auto) (0-0.2) K/uL Immature Gran # (Auto) (0.00-0.02) K/uL Sodium 137 (136-145) mmol/L Potassium 4.6 (3.5-5.1) mmol/L Chloride 108 H (98-107) mmol/L Carbon Dioxide 23 (21-32) mmol/L Anion Gap 6 (3-11) BUN 31 H (6-23) mg/dl Creatinine 0.85 (0.6-1.2) mg/dl Est Cr Clr Drug Dosing 92.2 ml/min Est GFR ( Amer) 88.2 ml/min Est GFR (Non-Af Amer) 76.1 ml/min BUN/Creatinine Ratio 36.5 H (10-20) Glucose 300 H (70-99(Fasting)) mg/dl POC Glucose 248 H 296 H (70-99) mg/dl Calcium 9.0 (8.5-10.1) mg/dl Magnesium 2.3 (1.7-2.4) mg/dl 05/08/22 05/07/22 05/07/22 Range/Units 05:58 21:00 16:13 WBC 17.73 H (4.8-10.8) K/ul RBC 3.94 (3.93-5.22) M/uL Hgb 12.4 (12.0-16.0) g/dl Hct 39.1 (34.1-44.9) % MCV 99.2 (80.0-100.0) fL MCH 31.5 (25.0-34.0) pg MCHC 31.7 L (32.0-36.0) g/dL RDW Std Deviation 51.1 H (36.4-46.3) fL RDW Coeff of Majo 13.9 (11.5-14.5) % Plt Count 211 (130-400) K/uL MPV 11.9 (9.4-12.3) fL Immature Gran % (Auto) 0.7 % Neut % (Auto) 88.6 % Lymph % (Auto) 8.3 % [place] % (Auto) 2.3 % Eos % (Auto) 0.0 % Baso % (Auto) 0.1 % Neut # (Auto) 15.69 H (1.4-6.5) K/uL Lymph # (Auto) 1.48 (1.2-3.4) K/uL [place] # (Auto) 0.41 (0.24-0.82) K/uL Eos # (Auto) 0.00 (0-0.50) K/uL Baso # (Auto) 0.02 (0-0.2) K/uL Immature Gran # (Auto) 0.13 H (0.00-0.02) K/uL Sodium (136-145) mmol/L Potassium (3.5-5.1) mmol/L Chloride (98-107) mmol/L Carbon Dioxide (21-32) mmol/L Anion Gap (3-11) BUN (6-23) mg/dl Creatinine (0.6-1.2) mg/dl Est Cr Clr Drug Dosing ml/min Est GFR ( Amer) ml/min Est GFR (Non-Af Amer) ml/min BUN/Creatinine Ratio (10-20) Glucose (70-99(Fasting)) mg/dl POC Glucose 275 H 194 H (70-99) mg/dl Calcium (8.5-10.1) mg/dl Magnesium (1.7-2.4) mg/dl PG Care Time/CCT Total # of Minutes Spent Total Time Spent with Patient: Total time spent is greater than 50% in coordination of care (as documented) at patient's floor/unit and/or counseling patient: Coding Level of Care Code 33681 Subseq Hosp Care Lvl 3 Diagnoses Asthma J45.909 Chest pain R07.9 Chronic diastolic congestive heart failure I50.32 GERD (gastroesophageal reflux disease) K21.9 Osteoarthritis M19.90 DMII (diabetes mellitus, type 2) E11.9 History of pulmonary embolism Z86.711
[2022-05-08] MEDS: CYCLOBENZAPRINE HCL 5 MG TAB PO PRN (17:21)
[2022-05-08] MEDS: DOCUSATE SODIUM/SENNA 50/8.6MG TAB PO SCH (17:46)
[2022-05-08] MEDS: POLYETHYLENE (MIRALAX) 17 GM PACK PO PRN (17:46)
[2022-05-08] MEDS ORDERED: HYDROcodone/HOMATROPINE SYRUP 5MG/1.5MG 5ML UDP PO PRN (19:00)
[2022-05-08] MEDS: MONTELUKAST SODIUM 10 MG TABLET PO SCH (20:33)
[2022-05-08] MEDS: RIVAROXABAN 20 MG TAB PO SCH (20:34)
[2022-05-08] MEDS: HYDROcodone/HOMATROPINE SYRUP 5MG/1.5MG 5ML UDP PO PRN (20:49)
[2022-05-09] MEDS: ALBUT/IPRATROP 3MG/0.5MG NEB 3 ML VIAL NEB SCH ×4 (02:42→14:50)
[2022-05-09 06:33] LABS: Basophils # (auto) 0.02 K/uL (0-0.2); Basophils % (auto) 0.1 %; Hematocrit (blood only) 40.8 % (34.1-44.9); Hemoglobin 12.7 g/dl (12.0-16.0); Immature Granulocytes # (auto) 0.16 K/uL (0.00-0.02); Immature Granulocytes % (auto) 0.9 %; Lymphocytes # (auto) 1.71 K/uL (1.2-3.4); Lymphocytes % (auto) 9.9 %; Mean Corpuscular Hemoglobin 30.5 pg (25.0-34.0); Mean Corpuscular Hgb Conc 31.1 g/dL (32.0-36.0); Mean Corpuscular Volume 97.8 fL (80.0-100.0); Mean Platelet Volume 11.2 fL (9.4-12.3); Monocytes # (auto) 0.57 K/uL (0.24-0.82); Monocytes % (auto) 3.3 %; Neutrophils # (auto) 14.73 K/uL (1.4-6.5); Neutrophils % (auto) 85.8 %; Platelet Count 210 K/uL (130-400); RDW Coefficient of Variation 13.9 % (11.5-14.5); RDW Standard Deviation 50.7 fL (36.4-46.3); Red Blood Count 4.17 M/uL (3.93-5.22); White Blood Count 17.19 K/ul (4.8-10.8)
[2022-05-09] MEDS: HYDROcodone/HOMATROPINE SYRUP 5MG/1.5MG 5ML UDP PO PRN ×3 (06:39→20:33)
[2022-05-09] MEDS: methylPREDNISolone 40 MG in SYRINGE 0 ML IV SCH ×3 (06:39→20:35)
[2022-05-09 06:53] LABS: BUN Creatinine Ratio 44.6 (10-20); Calcium 8.7 mg/dl (8.5-10.1); Creatinine Clr Calc Pharmacy 94.3 ml/min; Est GFR (African American) 90.7 ml/min; Est GFR (Non-African American) 78.3 ml/min; Magnesium 2.3 mg/dl (1.7-2.4); Potassium 5.1 mmol/L (3.5-5.1)
[2022-05-09] MEDS: BENZONATATE 100 MG CAPSULE PO PRN (07:40)
[2022-05-09] MEDS: DOCUSATE SODIUM/SENNA 50/8.6MG TAB PO SCH (07:40)
[2022-05-09] MEDS: lisinopril 10 MG TAB PO SCH (07:40)
[2022-05-09] MEDS: LANTUS PER UNIT CHARGE SQ SCH (08:14)
[2022-05-09] MEDS: INSULIN ASPART PER UNIT SC SCH ×4 (08:14→19:43)
[2022-05-09] MEDS: NICOTINE 21 MG/24 HR TDSY TD SCH (08:15)
[2022-05-09] MEDS: PANTOprazole 40 MG TAB PO SCH (08:16)
[2022-05-09] MEDS: LIDOCAINE 5% 1 PATCH TD SCH (08:16)
[2022-05-09] MEDS: FUROSEMIDE 20 MG TAB PO SCH (08:16)
[2022-05-09] MEDS: guaiFENesin/DEXTROM SYRUP 200MG/20MG 10ML UDC PO PRN (10:50)
[2022-05-09] MEDS ORDERED: COUGH DROP (SUGAR FREE) LOZ 24 LOZ/1 BOX BUCCAL STA (11:47)
[2022-05-09] MEDS ORDERED: COUGH DROP (SUGAR FREE) LOZ 24 LOZ/1 BOX BUCCAL ONE (11:51)
--- NOTE | 2022-05-09 14:38 | Hospitalist Progress Note ---
Date of Service May 09, 2022 Assessment & Plan (1) Asthma: Plan: With acute asthma exacerbation Patient presents with chest wall pain, dyspnea, and tachypnea, wheezing, initially requiring CPAP,now not requiring CPAP but feels better wearing it CTA is negative for infectious process or PE or any pericardial effusion but does have trace right pleural effusion and atelectasis. WIth mildly elevated EOS count as well as CHF component with pulmonary edema and pleural effusion. Reproducible chest wall pain also limiting her inspiratory effort. - Received 2 hour long EDUARD nebulizers, Inhaled corticosteroid, IV steroid, and 2 GM Magnesium in ER- VBG normal - Without evidence of hypoxia - Mild increase EOS-started Montelukast 10mg daily and on steroids, EOS now 0 - Last follow up with Pulmonary in 09/12 with PFTS - pulmonary function test 08/19/2021 with slight reduction in FVC and FEV1- Albuterol, Atrovent, Dulera - Diuresed 20mg IV Lasix x 3 doses, no BNP checked, has preserved EF on ECHO - Continue scheduled nebulizers and give prn in between - Continue methylpred 40mg IV 8h - CPAP as needed for resp distress -continue guaifenesin DM and tesslon perles prn for cough -add on Hycodan 10mL po q6h prn cough -some anxiety component too but would hesitate to add on lorazepam as may further suppress drive to breathe -consult PULM for Monday given severe exacerbation 05/09: Somewhat better, appears to be on too high steroids but I did not change pending pulmonary consult to avoid multiplicity BNP in a.m. (2) Chest pain: Plan: Hypersensitive non-cardiac chest wall pain- appears as a chronic problem dating back to 2019 but now with chronic flare ECG no ischemic changes and trop neg - This is primarily keeping her from full inspiratory effort -most likely 2/2 frequent cough, MSK in nature ESR mildly elevated for age at 39 but not overly concerning, CRP normal - she denies any physical activity or lifting or injury - Lidocaine patch placed to right side- eval for any effect - Continue PRN Cyclobenzaprine -add on Hycodan for cough which will also help chest wall pain 05/09: Follow clinically (3) Chronic diastolic congestive heart failure: Plan: Follows with heart failure clinic - Lasix as above IV and convert to po home dose tomorrow - Continue ACEi 05/09: As above (4) GERD (gastroesophageal reflux disease): Plan: Continue with PPI (5) Osteoarthritis: Plan: Bilateral knee and back - previously received injections with Durolane (6) DMII (diabetes mellitus, type 2): Plan: with hyperglycemia 2/2 steroids-worsening today increase Lantus to 15 units daily increase SSI further today hold home metformin 05/09: Still high sugars, no change further today (7) History of pulmonary embolism: Plan: CTA chest neg here for PE continue Xarelto (8) Leucocytosis: Plan: Likely steroid relatedfollow Plan Dispo-continued stay on tele Admission and Anticipated Discharge Date Admission Date: May 06, 2022 Subjective Follow-up of shortness of breathfeels somewhat better Physical Exam Physical Exam: Constitutional and general: No acute distress, looks biologic age Head and face: No puffiness, atraumatic Eyes: No scleral icterus, extraocular movements normal Neck: Supple, no JVD Musculoskeletal: No acute joint swelling, no bony abnormalities Skin/dermatologic/integument: No rash, no purpura Hematologic and lymphatic: pallor +, no petechia Gastrointestinal/abdomen: Nondistended, soft, nonacute Neurologic: Cranial nerves intact, nonfocal Psychiatry: Awake, alert, pleasant, communicative Cardiovascular: Heart rhythm regular, no rub, no murmur, no gallop Respiratory: Chest movements equal, no use of accessory muscles, bilateral wheezing Extremities: No edema, no cyanosis Results & Data Results & Data ([facility]) Vital Signs (Past 12 Hours) Vital Signs Temp Pulse Pulse Resp BP Pulse Ox O2 Del Method 05/09/22 11:10 36.6 C 101 H 22 123/80 94 Room Air 05/09/22 10:32 113 H 22 96 Room Air 05/09/22 08:00 Room Air, CPAP 05/09/22 07:21 99 H 05/09/22 07:12 95 H 20 96 Room Air 05/09/22 07:04 36.6 C 95 H 20 137/92 96 CPAP 05/09/22 03:00 36.6 C 96 H 18 127/84 97 05/09/22 02:43 98 H 19 97 05/09/22 02:43 96 H 19 97 CPAP FiO2 05/09/22 11:10 05/09/22 10:32 05/09/22 08:00 21 07/18/22 07:21 05/09/22 07:12 05/09/22 07:04 05/09/22 03:00 05/09/22 02:43 21 05/09/22 02:43 21 PG Care Time/CCT Total # of Minutes Spent Total Time Spent with Patient: Total time spent is greater than 50% in coordination of care (as documented) at patient's floor/unit and/or counseling patient: Coding Level of Care Code 99413 Subseq Hosp Care Lvl 2 Diagnoses Asthma J45.909 Chest pain R07.9 Chronic diastolic congestive heart failure I50.32 GERD (gastroesophageal reflux disease) K21.9 Osteoarthritis M19.90 DMII (diabetes mellitus, type 2) E11.9 History of pulmonary embolism Z86.711 Leucocytosis D72.829
--- NOTE | 2022-05-09 15:32 | Pulmonary Consultation ---
Date of Consultation May 09, 2022 Assessment & Plan (1) Asthma exacerbation in COPD: We will start the patient on Brovana twice daily and budesonide twice daily. We will also add Spiriva/Incruse Ellipta. Patient should be on an ICS/LABA/LAMA inhaler upon discharge. We will start the patient on percussive vest therapy 4 times a day to promote airway clearance. Continue Mucinex. Continue as needed albuterol/ipratropium. Continue IV Solu-Medrol. We will discontinue lisinopril due to her cough. Will need updated PFTs as an outpatient. Pulmonary rehab should be strongly considered in this patient. Allergy referral to be considered as well for biologic therapy. Will continue to follow along with you. (2) History of tobacco abuse: Strongly encouraged to continue with smoking cessation and avoid secondhand smoke exposure as much as possible. (3) Obstructive sleep apnea on CPAP: Compliant with therapy. Continue and has CPAP. (4) History of pulmonary embolism: She is at risk for pulmonary hypertension. We will repeat an echocardiogram. We will need to consider a V/Q scan to evaluate for chronic thromboembolic pulmonary hypertension if right-sided pressures continue to be elevated. May also need to consider a right heart catheterization. Continue anticoagulation given her unprovoked PE history and obesity. (5) Obesity: Weight loss strongly encouraged. Asthma difficult to control in obesity. Plan Thank you for allowing us to participate in this patient's care. Please call with questions. History of Present Illness Reason for Consultation: Asthma Attending Physician: Tamera Caruso MD History of Present Illness 56-year-old female with a past medical history of morbid obesity presenting to the hospital due to shortness of breath. Pulmonary is consulted for asthma exacerbation. She was admitted 05/06/2022. She was given IV diuretics and methylprednisolone during this hospital stay. She is currently on methylprednisolone 40 mg every 8 hours. She is also on Singulair 10 mg p.o. nightly. She is also on albuterol every 4 hours. Chest CTA obtained 05/06/2022 revealed mild intralobular septal thickening and trace right pleural effusion. No airspace opacities. No evidence of PE. Mild emphysematous changes noted. Labs with leukocytosis of 17,000. She had an unprovoked pulmonary embolism in October 2021. Hypercoagulable work- up was negative. Hematology was recommending at least 6 months of anticoagulation with full dose and then transitioning to prophylactic dose anticoagulation. Patient using Dulera 200/5 twice daily as an outpatient. PFT 08/19/2021 reviewed. Nonspecific spirometry with an FEV1 of 76%. No significant postbronchodilator response. TLC mildly reduced at 76%. DLCO reduced to 62%. DL/VA 101%. Echo 11/11/2021 with mildly dilated left ventricle with low normal systolic function of 50 to 55%. Mild pulmonary hypertension noted. Patient has roughly a 76-[id number] smoking history. Patient notes that she quit smoking about 3 months ago. However she feels that this episode of asthma was sent off due to being around smokers on her porch a few days ago. She has had worsening cough with occasional sputum production. Denies hemoptysis. She has chest pain and uses a Lidoderm patch. Allergies Allergy/AdvReac Type Severity Reaction Status Date / Time No Known Allergies Allergy Verified 05/06/22 18:21 Home Medications Medication Instructions Recorded Confirmed Type nicotine 21 mg/24 hr daily 21 mg transdermal QAM #30 ea 01/26/22 05/06/22 Rx transdermal patch (Nicoderm CQ) albuterol sulfate 90 mcg/actuation 2 puff inhalation Q6 PRN Shortness 05/03/22 0 05/06/22 Rx aerosol inhaler Of Breath Or Wheezing #18 grams benzonatate 100 mg capsule 100 mg PO Q8H PRN cough #30 caps 05/03/22 05/06/22 Rx cyclobenzaprine 5 mg tablet 5 mg PO TID PRN muscle spasm #30 05/03/22 05/06/22 Rx tabs diclofenac sodium 1 % topical gel 2 g topical QID PRN Pain #100 grams 05/03/22 05/06/22 Rx furosemide 20 mg tablet 20 mg PO DAILY #90 tabs 05/03/22 05/06/22 Rx hydrocortisone 1 %-pramoxine 1 % 1 applic NE BID PRN hemorrhoids 05/03/22 05/06/22 Rx rectal foam (Proctofoam HC) #10 grams ipratropium bromide 17 2 puff inhalation TID #12.9 grams 05/03/22 05/06/22 Rx mcg/actuation HFA aerosol inhaler (Atrovent HFA) lisinopril 10 mg tablet 10 mg PO DAILY #90 tabs 05/03/22 05/06/22 Rx metformin 500 mg tablet,extended 500 mg PO QPM #90 tabs 05/03/22 05/06/22 Rx release 24 hr mometasone-formoterol HFA 200 2 puff inhalation BID #13 grams 05/03/22 05/06/22 Rx mcg-5 mcg/actuation aerosol inhaler (Dulera) nitroglycerin 0.4 mg sublingual 0.4 mg sublingual UD PRN Chest 05/03/22 05/06/22 Rx tablet (Nitrostat) Pain #25 tabs pantoprazole 40 mg tablet,delayed 40 mg PO DAILY #90 tabs 05/03/22 05/06/22 Rx release (Protonix) ipratropium 0.5 mg-albuterol 3 mg 3 ml NEB Q6H PRN wheezing/SOB/cough 05/06/22 05/06/22 History (2.5 mg base)/3 mL nebulization soln rivaroxaban 20 mg tablet (Xarelto) 20 mg PO QPM 05/06/22 05/06/22 History Patient History Medical History (Updated 05/09/22 @ 16:02 by Gallo Slade MD) Active asthma Arthritis of knee Asthma exacerbation in COPD CHF (congestive heart failure) Chronic low back pain CSF leak Degeneration of cervical intervertebral disc Dizziness External hemorrhoids Frequent falls GERD (gastroesophageal reflux disease) Hemiplegic migraine History of pulmonary embolism History of tobacco abuse History of tobacco abuse Left-sided chest pain Morbid obesity due to excess calories Obesity Obstructive sleep apnea Severe asthma with acute exacerbation TIA (transient ischemic attack) Urinary incontinence Vertebral artery stenosis Vitamin D deficiency Surgical History Facial fracture (2014) WITH RECONSTRUCTION History of bilateral tubal ligation History of cardiac cath X2 STENTS - (~2010, IN [place], [place]). NO STENTS - ([facility] @ ~2014) History of colonoscopy History of esophagogastroduodenoscopy (EGD) History of heart artery stent X2 STENTS (2010) UNSURE OF KIND. NO STENT CARDS PER PT. History of mandibular surgery S/P left knee arthroscopy S/p tibial fracture open treatment of Fx with plate/screws, Left leg Status post right foot surgery Family History Mother Breast cancer, Onset Age: 64 Type 2 diabetes mellitus Father Diabetes Coronary heart disease Type 2 diabetes mellitus Myocardial infarction, Onset Age: 52 Family/Other Hypertension sibling Denies family history of Ovarian cancer Social History Smoking Status: Former smoker Tobacco Type: Cigarettes Years Smoked: 40; Second Hand Exposure: Yes; Hx Alcohol Use: No Hx Substance Use: No Preferred Language: Panamanian Communication Ability: Effective Visual Impairment: No Limitations Senior Underwriter Required: No Beliefs That Will Affect Care: None marital status: Current Living Situation: Spouse Current Living Situation Comment: home with spouse. How many Children do You have: 5 Other Information That Helps Us Care for You: No Feels Safe at Home: Yes Safety Concerns: Feels Safe At This Time Assistive Devices: Cane and Other Assistive Devices Comment: Power Chair Review of Systems Review of Systems: All systems reviewed & are unremarkable except as noted in HPI & below Physical Exam Physical Exam: Constitutional: Obese female who is coughing frequently. No apparent distress. Eyes: Pupils are equal round and reactive to light. Conjunctivae are normal. Anicteric sclera. Ears nose, mouth and throat: Deferred. Neck: Trachea is midline. Visual inspection is normal. Respiratory: Diffuse wheeze b/l. Mildly increased wob. Cardiovascular: Regular rate and rhythm. No murmurs. No edema. Gastrointestinal: Normal bowel sounds, soft, nontender and nondistended. No hepatosplenomegaly noted. Musculoskeletal: No cyanosis. Patient is able to move all extremities. Skin: No rashes, warm dry and intact. Neurologic: No obvious focal neurological deficits seen. Psychiatric: Alert and oriented x3 with a euthymic affect. Results & Data Results & Data ([facility]) Vital Signs (Past 12 Hours) Vital Signs Temp Pulse Pulse Resp BP Pulse Ox O2 Del Method 05/09/22 15:15 36.3 C L 100 H 20 130/83 96 Room Air 05/09/22 14:57 96 H 05/09/22 14:50 98 H 24 100 05/09/22 14:50 98 H 24 100 CPAP 05/09/22 11:10 36.6 C 101 H 22 123/80 94 Room Air 05/09/22 10:32 113 H 22 96 Room Air 05/09/22 08:00 Room Air, CPAP 05/09/22 07:21 99 H 05/09/22 07:12 95 H 20 96 Room Air 05/09/22 07:04 36.6 C 95 H 20 137/92 96 CPAP FiO2 05/09/22 15:15 05/09/22 14:57 05/09/22 14:50 05/09/22 14:50 21 05/09/22 11:10 05/09/22 10:32 05/09/22 08:00 21 05/09/22 07:21 05/09/22 07:12 05/09/22 07:04 PG Care Time/CCT Total # of Minutes Spent Total Time Spent with Patient: Total time spent is greater than 50% in coordination of care (as documented) at patient's floor/unit and/or counseling patient: Coding Level of Care Code 71662 Inpt Consult Level 5 Diagnoses Asthma exacerbation in COPD J44.1; J45.901 History of tobacco abuse Z87.891 Obstructive sleep apnea on CPAP G47.33; Z99.89 History of pulmonary embolism Z86.711 Obesity E66.9
[2022-05-09] MEDS: FORMOTEROL 20 MCG/2 ML VIAL INH SCH (19:07)
[2022-05-09] MEDS: BUDESONIDE 0.5 MG/2 ML VIAL (PULMICORT) NEB SCH (19:08)
[2022-05-09] MEDS: ALBUT/IPRATROP 3MG/0.5MG NEB 3 ML VIAL NEB PRN ×2 (19:08→22:07)
[2022-05-09] MEDS: MONTELUKAST SODIUM 10 MG TABLET PO SCH (19:49)
[2022-05-09] MEDS: guaiFENesin 600 MG TABCR PO SCH (19:50)
[2022-05-09] MEDS: RIVAROXABAN 20 MG TAB PO SCH (19:51)
[2022-05-09] MEDS: CYCLOBENZAPRINE HCL 5 MG TAB PO PRN (21:59)
[2022-05-10] MEDS: methylPREDNISolone 40 MG in SYRINGE 0 ML IV SCH ×3 (05:54→20:41)
[2022-05-10 07:04] LABS: Basophils # (auto) 0.02 K/uL (0-0.2); Basophils % (auto) 0.1 %; Hemoglobin 13.2 g/dl (12.0-16.0); Immature Granulocytes # (auto) 0.17 K/uL (0.00-0.02); Immature Granulocytes % (auto) 1.1 %; Lymphocytes # (auto) 1.63 K/uL (1.2-3.4); Lymphocytes % (auto) 10.6 %; Mean Corpuscular Hgb Conc 32.2 g/dL (32.0-36.0); Mean Corpuscular Volume 96.2 fL (80.0-100.0); Mean Platelet Volume 11.4 fL (9.4-12.3); Monocytes % (auto) 3.9 %; Neutrophils # (auto) 12.98 K/uL (1.4-6.5); Neutrophils % (auto) 84.3 %; Platelet Count 222 K/uL (130-400); RDW Coefficient of Variation 13.9 % (11.5-14.5); RDW Standard Deviation 48.9 fL (36.4-46.3); Red Blood Count 4.26 M/uL (3.93-5.22)
[2022-05-10] MEDS: BUDESONIDE 0.5 MG/2 ML VIAL (PULMICORT) NEB SCH ×2 (07:16→19:20)
[2022-05-10] MEDS: FORMOTEROL 20 MCG/2 ML VIAL INH SCH ×2 (07:16→19:20)
[2022-05-10] MEDS: ALBUT/IPRATROP 3MG/0.5MG NEB 3 ML VIAL NEB PRN ×3 (07:16→14:55)
[2022-05-10 07:43] LABS: Albumin Globulin Ratio 1.2 (0.9-2); Albumin Level 3.5 gm/dl (3.4-5.0); Bilirubin,Total 0.2 mg/dl (0.2-1.0); Creatinine Clr Calc Pharmacy 88.3 ml/min; Est GFR (African American) 83.4 ml/min; Est GFR (Non-African American) 71.9 ml/min; Magnesium 2.3 mg/dl (1.7-2.4); Potassium 4.6 mmol/L (3.5-5.1); Total Protein 6.5 gm/dl (6.0-8.3)
[2022-05-10] MEDS: NICOTINE 21 MG/24 HR TDSY TD SCH (08:29)
[2022-05-10] MEDS: guaiFENesin 600 MG TABCR PO SCH ×2 (08:29→20:42)
[2022-05-10] MEDS: POLYETHYLENE (MIRALAX) 17 GM PACK PO PRN (08:29)
[2022-05-10] MEDS: DICLOFENAC SOD 1% GEL 100 GM TUBE EXT PRN (08:29)
[2022-05-10] MEDS: PANTOprazole 40 MG TAB PO SCH (08:30)
[2022-05-10] MEDS: LIDOCAINE 5% 1 PATCH TD SCH (08:30)
[2022-05-10] MEDS: DOCUSATE SODIUM/SENNA 50/8.6MG TAB PO SCH (08:30)
[2022-05-10] MEDS: FUROSEMIDE 20 MG TAB PO SCH (08:30)
[2022-05-10] MEDS: INSULIN ASPART PER UNIT SC SCH ×4 (08:30→20:36)
[2022-05-10] MEDS: LANTUS PER UNIT CHARGE SQ SCH (08:31)
[2022-05-10] MEDS: UMECLIDINIUM BROMIDE 62.5MCG/BLISTER 7 PUFFS/INHALER INH SCH (08:44)
[2022-05-10] MEDS ORDERED: LANTUS PER UNIT CHARGE SQ ONE (09:15)
--- NOTE | 2022-05-10 13:53 | Pulmonology Progress Note ---
Date of Service May 10, 2022 Assessment & Plan (1) Asthma exacerbation in COPD: Plan: Continue Brovana twice daily and budesonide twice daily. Continue incruse. Patient should be on an ICS/LABA/LAMA inhaler upon discharge. Patient has not been started on percussive vest therapy despite being ordered. We will check with the respiratory therapist. Continue Mucinex. Continue as needed albuterol/ipratropium. Continue IV Solu-Medrol. Lisinopril was discontinued. Will need updated PFTs as an outpatient. Pulmonary rehab should be strongly considered in this patient. Allergy referral to be considered as well for biologic therapy. Will continue to follow along with you. (2) History of tobacco abuse: Plan: Strongly encouraged to continue with smoking cessation and avoid secondhand smoke exposure as much as possible. (3) Obstructive sleep apnea on CPAP: Plan: Compliant with therapy. Continue and has CPAP. (4) History of pulmonary embolism: Plan: She is at risk for pulmonary hypertension. Repeat echocardiogram pending. We will need to consider a V/Q scan to evaluate for chronic thromboembolic pulmonary hypertension if right-sided pressures continue to be elevated. May also need to consider a right heart catheterization. Continue anticoagulation given her unprovoked PE history and obesity. (5) Obesity: Plan: Weight loss strongly encouraged. Asthma difficult to control in obesity. Plan Thank you for allowing us to participate in this patient's care. Please call with questions. Admission and Anticipated Discharge Date Admission Date: May 06, 2022 Subjective Patient seen and examined today. Continues with cough and shortness of breath. She notes some mild improvement compared to yesterday. She is currently laying in bed. Review of Systems Review of Systems: All systems reviewed & are unremarkable except as noted in HPI & below Physical Exam Physical Exam: Constitutional: Obese female who is coughing frequently. No apparent distress. Eyes: Pupils are equal round and reactive to light. Conjunctivae are normal. Anicteric sclera. Ears nose, mouth and throat: Deferred. Neck: Trachea is midline. Visual inspection is normal. Respiratory: Diffuse wheeze b/l. No increased work of breathing. Cardiovascular: Regular rate and rhythm. No murmurs. No edema. Gastrointestinal: Normal bowel sounds, soft, nontender and nondistended. No hepatosplenomegaly noted. Musculoskeletal: No cyanosis. Patient is able to move all extremities. Skin: No rashes, warm dry and intact. Neurologic: No obvious focal neurological deficits seen. Psychiatric: Alert and oriented x3 with a euthymic affect. Results & Data Results & Data ([facility]) Vital Signs (Past 12 Hours) Vital Signs Temp Pulse Pulse Pulse Resp BP Pulse Ox 05/10/22 11:30 36.7 C 104 H 18 143/90 H 95 05/10/22 08:00 05/10/22 10:14 97 H 19 98 05/10/22 08:05 36.4 C L 93 H 20 133/91 100 05/10/22 07:18 77 19 95 05/10/22 07:18 77 19 95 05/10/22 02:56 36.5 C 101 H 20 156/84 H 96 05/10/22 02:13 107 H 22 98 O2 Del Method FiO2 05/10/22 11:30 Room Air 05/10/22 08:00 Room Air 05/10/22 10:14 Room Air 05/10/22 08:05 BiPAP 05/10/22 07:18 05/10/22 07:18 Room Air, CPAP 05/10/22 02:56 CPAP 05/10/22 02:13 21 PG Care Time/CCT Total # of Minutes Spent Total Time Spent with Patient: Total time spent is greater than 50% in coordination of care (as documented) at patient's floor/unit and/or counseling patient: Coding Level of Care Code 40980 Subseq Hosp Care Lvl 2 Diagnoses Asthma exacerbation in COPD J44.1; J45.901 History of tobacco abuse Z87.891 Obstructive sleep apnea on CPAP G47.33; Z99.89 History of pulmonary embolism Z86.711 Obesity E66.9
--- NOTE | 2022-05-10 15:57 | Hospitalist Progress Note ---
Date of Service May 10, 2022 Assessment & Plan (1) Asthma: Plan: With COPD Pulmonary input greatly appreciated; on Brovana, budesonide, Spiriva, Incruse Ellipta with percussive therapy ordered Pulmonary recommends continue current methylprednisolone Outpatient pulmonary follow-up (2) Chest pain: Plan: Suspect noncardiacfollow clinical (3) GERD (gastroesophageal reflux disease): Plan: Continue with PPI (4) Osteoarthritis: Plan: Bilateral knee and back - previously received injections with Durolane (5) Combined systolic and diastolic congestive heart failure: Plan: Now LV systolic dysfunction, severe MR not new but now systolic dysfunction more prominent On Lasix, worth adding ARB and cardiology input (6) DMII (diabetes mellitus, type 2): Plan: Sugars persistently high, increase Lantus (7) History of pulmonary embolism: Plan: CTA chest neg here for PE continue Xarelto (8) Leucocytosis: Plan: Likely steroid relatedfollow Admission and Anticipated Discharge Date Admission Date: May 06, 2022 Subjective Follow-up of shortness of breathdoing somewhat better Physical Exam Physical Exam: Constitutional and general: No acute distress, looks biologic age Head and face: No puffiness, atraumatic Eyes: No scleral icterus, extraocular movements normal Neck: Supple, no JVD Musculoskeletal: No acute joint swelling, no bony abnormalities Skin/dermatologic/integument: No rash, no purpura Hematologic and lymphatic: pallor +, no petechia Gastrointestinal/abdomen: Nondistended, soft, nonacute Neurologic: Cranial nerves intact, nonfocal Psychiatry: Awake, alert, pleasant, communicative Cardiovascular: Heart rhythm regular, no rub, no murmur, no gallop Respiratory: Chest movements equal, +use of accessory muscles, actually no significant wheezing when seen Extremities: No edema, no cyanosis Results & Data Results & Data ([facility]) Vital Signs (Past 12 Hours) Vital Signs Temp Pulse Pulse Pulse Resp BP Pulse Ox 05/10/22 14:56 113 H 18 98 05/10/22 11:30 36.7 C 104 H 18 143/90 H 95 05/10/22 08:00 05/10/22 10:14 97 H 19 98 05/10/22 08:05 36.4 C L 93 H 20 133/91 100 05/10/22 07:18 77 19 95 07/19/22 07:18 77 19 95 O2 Del Method 05/10/22 14:56 Room Air 05/10/22 11:30 Room Air 05/10/22 08:00 Room Air 05/10/22 10:14 Room Air 05/10/22 08:05 BiPAP 05/10/22 07:18 05/10/22 07:18 Room Air, CPAP Laboratory Results Laboratory Results - last 24 hr 05/09/22 05/09/22 05/10/22 16:04 19:31 06:35 WBC 15.40 H RBC 4.26 Hgb 13.2 Hct 41.0 MCV 96.2 MCH 31.0 MCHC 32.2 RDW Std Deviation 48.9 H RDW Coeff of Majo 13.9 Plt Count 222 MPV 11.4 Immature Gran % (Auto) 1.1 Neut % (Auto) 84.3 Lymph % (Auto) 10.6 Foard % (Auto) 3.9 Eos % (Auto) 0.0 Baso % (Auto) 0.1 Neut # (Auto) 12.98 H Lymph # (Auto) 1.63 Foard # (Auto) 0.60 Eos # (Auto) 0.00 Baso # (Auto) 0.02 Immature Gran # (Auto) 0.17 H Sodium Potassium Chloride Carbon Dioxide Anion Gap BUN Creatinine Est Cr Clr Drug Dosing Est GFR ( Amer) Est GFR (Non-Af Amer) POC Glucose 148 H 224 H Fasting Glucose Calcium Magnesium Total Bilirubin AST ALT Alkaline Phosphatase B-Natriuretic Peptide Total Protein Albumin Globulin Albumin/Globulin Ratio 05/10/22 05/10/22 05/10/22 06:35 06:35 07:34 WBC RBC Hgb Hct MCV MCH MCHC RDW Std Deviation RDW Coeff of Majo Plt Count MPV Immature Gran % (Auto) Neut % (Auto) Lymph % (Auto) Foard % (Auto) Eos % (Auto) Baso % (Auto) Neut # (Auto) Lymph # (Auto) Foard # (Auto) Eos # (Auto) Baso # (Auto) Immature Gran # (Auto) Sodium 137 Potassium 4.6 Chloride 105 Carbon Dioxide 25 Anion Gap 7 BUN 38 H Creatinine 0.89 Est Cr Clr Drug Dosing 88.3 Est GFR ( Amer) 83.4 Est GFR (Non-Af Amer) 71.9 POC Glucose 301 H* Fasting Glucose 322 H* Calcium 9.0 Magnesium 2.3 Total Bilirubin 0.2 AST 11 L ALT 14 Alkaline Phosphatase 98 B-Natriuretic Peptide 189 H Total Protein 6.5 Albumin 3.5 Globulin 3.0 Albumin/Globulin Ratio 1.2 05/10/22 05/10/22 07:36 11:26 WBC RBC Hgb Hct MCV MCH MCHC RDW Std Deviation RDW Coeff of Majo Plt Count MPV Immature Gran % (Auto) Neut % (Auto) Lymph % (Auto) Foard % (Auto) Eos % (Auto) Baso % (Auto) Neut # (Auto) Lymph # (Auto) Foard # (Auto) Eos # (Auto) Baso # (Auto) Immature Gran # (Auto) Sodium Potassium Chloride Carbon Dioxide Anion Gap BUN Creatinine Est Cr Clr Drug Dosing Est GFR ( Amer) Est GFR (Non-Af Amer) POC Glucose 305 H* 291 H Fasting Glucose Calcium Magnesium Total Bilirubin AST ALT Alkaline Phosphatase B-Natriuretic Peptide Total Protein Albumin Globulin Albumin/Globulin Ratio PG Care Time/CCT Total # of Minutes Spent Total Time Spent with Patient: Total time spent is greater than 50% in coordination of care (as documented) at patient's floor/unit and/or counseling patient: Coding Level of Care Code 67669 Subseq Hosp Care Lvl 2 Diagnoses Asthma J45.909 Chest pain R07.9 GERD (gastroesophageal reflux disease) K21.9 Osteoarthritis M19.90 Combined systolic and diastolic congestive heart failure I50.40 DMII (diabetes mellitus, type 2) E11.9 History of pulmonary embolism Z86.711 Leucocytosis D72.829
[2022-05-10] MEDS: HYDROcodone/HOMATROPINE SYRUP 5MG/1.5MG 5ML UDP PO PRN (18:41)
[2022-05-10] MEDS: RIVAROXABAN 20 MG TAB PO SCH (20:41)
[2022-05-10] MEDS: MONTELUKAST SODIUM 10 MG TABLET PO SCH (20:42)
[2022-05-10] MEDS: CYCLOBENZAPRINE HCL 5 MG TAB PO PRN (21:42)
[2022-05-11] MEDS: methylPREDNISolone 40 MG in SYRINGE 0 ML IV SCH (06:10)
[2022-05-11 06:30] LABS: Basophils # (auto) 0.03 K/uL (0-0.2); Basophils % (auto) 0.2 %; Hematocrit (blood only) 42.8 % (34.1-44.9); Hemoglobin 13.7 g/dl (12.0-16.0); Immature Granulocytes # (auto) 0.22 K/uL (0.00-0.02); Immature Granulocytes % (auto) 1.2 %; Lymphocytes # (auto) 1.91 K/uL (1.2-3.4); Lymphocytes % (auto) 10.4 %; Mean Corpuscular Hemoglobin 30.9 pg (25.0-34.0); Mean Corpuscular Volume 96.6 fL (80.0-100.0); Mean Platelet Volume 11.5 fL (9.4-12.3); Monocytes # (auto) 0.61 K/uL (0.24-0.82); Monocytes % (auto) 3.3 %; Neutrophils # (auto) 15.67 K/uL (1.4-6.5); Neutrophils % (auto) 84.9 %; Platelet Count 216 K/uL (130-400); RDW Coefficient of Variation 13.6 % (11.5-14.5); RDW Standard Deviation 48.6 fL (36.4-46.3); Red Blood Count 4.43 M/uL (3.93-5.22); White Blood Count 18.44 K/ul (4.8-10.8)
[2022-05-11 06:55] LABS: Albumin Globulin Ratio 1.1 (0.9-2); Albumin Level 3.4 gm/dl (3.4-5.0); Bilirubin,Total 0.2 mg/dl (0.2-1.0); Calcium 8.8 mg/dl (8.5-10.1); Creatinine Clr Calc Pharmacy 87.3 ml/min; Est GFR (African American) 82.3 ml/min; Globulin 3.1 gm/dl (2.5-4.0); Magnesium 2.4 mg/dl (1.7-2.4); Potassium 4.7 mmol/L (3.5-5.1); Total Protein 6.5 gm/dl (6.0-8.3)
[2022-05-11] MEDS: BUDESONIDE 0.5 MG/2 ML VIAL (PULMICORT) NEB SCH ×2 (07:12→19:47)
[2022-05-11] MEDS: ALBUT/IPRATROP 3MG/0.5MG NEB 3 ML VIAL NEB PRN (07:12)
[2022-05-11] MEDS: FORMOTEROL 20 MCG/2 ML VIAL INH SCH ×2 (07:12→19:47)
[2022-05-11] MEDS ORDERED: PHARMACY GLYCEMIC MGMT CONSULT PRN (07:24)
[2022-05-11] MEDS: NICOTINE 21 MG/24 HR TDSY TD SCH (08:05)
[2022-05-11] MEDS: LOSARTAN POTASSIUM 25 MG TAB PO SCH (08:06)
[2022-05-11] MEDS: guaiFENesin 600 MG TABCR PO SCH ×2 (08:06→20:30)
[2022-05-11] MEDS: HYDROcodone/HOMATROPINE SYRUP 5MG/1.5MG 5ML UDP PO PRN (08:06)
[2022-05-11] MEDS: PANTOprazole 40 MG TAB PO SCH (08:06)
[2022-05-11] MEDS: DOCUSATE SODIUM/SENNA 50/8.6MG TAB PO SCH (08:06)
[2022-05-11] MEDS: FUROSEMIDE 20 MG TAB PO SCH (08:06)
[2022-05-11] MEDS: LIDOCAINE 5% 1 PATCH TD SCH (08:07)
[2022-05-11] MEDS: UMECLIDINIUM BROMIDE 62.5MCG/BLISTER 7 PUFFS/INHALER INH SCH (08:09)
--- NOTE | 2022-05-11 08:33 | Pharmacy Report ---
Pharmacy Glycemic Short Note 2 - Date of Service May 11, 2022 - Glycemic Short BSG Results (Last 24 hours): 05/10/22 05/10/22 05/10/22 11:26 16:49 20:21 POC Glucose 291 H 240 H 398 H* Fasting Glucose 05/11/22 05/11/22 06:10 07:47 POC Glucose 247 H Fasting Glucose 312 H* OUTPATIENT ANTIDIABETIC REGIMEN: * metformin 500 mg PO qPM HbA1c: 7.8% (11/11/21) ASSESSMENT: * HEMANT is a 56 year-old female admitted to [facility] on 05/06/22 with asthma exacerbation * Pharmacy consulted for glycemic management this morning (05/11/22) due to persistent hyperglycemia (steroid-induced) * Currently ordered methylprednisolone 40 mg IV q8h, will adjust insulin as steroids are tapered * Methylprednisolone discontinued today, starting prednisone 40 mg PO daily on 05/12/22 * Will increase basal insulin today to ~0.4 unit/kg to cover steroids and tighten Novolog to weight-based stress of 3 dosing * ~1050 patient complained of 10/10 chest pain, heart alert called and patient went to cardiac laborer bituminous paving * BSG at this time was 344 mg/dL, post-procedure BSG is 209 mg/dL with no insulin administered at time of 344 mg/dL BSG PLAN FOR INPATIENT GLYCEMIC CONTROL: * Hold outpatient oral diabetes medications * Basal insulin * Lantus 40 units SQ daily (~0.4 unit/kg) * Reassess tomorrow with change in steroids * Bolus insulin * NovoLog per scale ACHS or Q6hrs while NPO * Goal Range: Low 110 mg/dL - High 140 mg/dL * Correction Factor: 20 mg/dL/unit * Nutritional / Prandial insulin per carb ratio of 1 unit per 6 grams CHO consumed
[2022-05-11] MEDS: INSULIN ASPART PER UNIT SC SCH ×5 (08:55→20:22)
[2022-05-11] MEDS ORDERED: LANTUS PER UNIT CHARGE SQ SCH ×3 (09:00)
--- NOTE | 2022-05-11 09:42 | Pulmonology Progress Note ---
Date of Service May 11, 2022 Assessment & Plan (1) Asthma exacerbation in COPD: Plan: Continue Brovana twice daily and budesonide twice daily. Continue incruse. Patient should be on an ICS/LABA/LAMA inhaler upon discharge. Percussive vest therapy started. Continue Mucinex. Continue as needed albuterol/ipratropium. We will transition IV Solu-Medrol to prednisone. Avoid VINICIUS inhibitor. Will need updated PFTs as an outpatient. Pulmonary rehab should be strongly considered in this patient. Allergy referral to be considered as well for biologic therapy. Will continue to follow along with you. (2) History of tobacco abuse: Plan: Strongly encouraged to continue with smoking cessation and avoid secondhand smoke exposure as much as possible. (3) Obstructive sleep apnea on CPAP: Plan: Compliant with therapy. Continue and has CPAP. (4) History of pulmonary embolism: Plan: Repeat echo with evidence of mildly elevated right-sided pressures likely secondary to mitral valve regurgitation. LVEF is slightly lower than prior echo. Cardiology consulted per hospitalist service. Continue with anticoagulation given her history of PE and DVT. (5) Obesity: Plan: Weight loss strongly encouraged. Asthma difficult to control in obesity. Plan Thank you for allowing us to participate in this patient's care. Please call with questions. Admission and Anticipated Discharge Date Admission Date: May 06, 2022 Subjective Patient significantly improved today with less shortness of breath and coughing. She was transferred to PCU status to [facility] status. She has been using the vest therapy which she feels is helping her cough and shortness of breath. Review of Systems Review of Systems: All systems reviewed & are unremarkable except as noted in HPI & below Physical Exam Physical Exam: Constitutional: Obese female in no apparent distress. Eyes: Pupils are equal round and reactive to light. Conjunctivae are normal. Anicteric sclera. Ears nose, mouth and throat: Deferred. Neck: Trachea is midline. Visual inspection is normal. Respiratory: Wheezing significantly improved. Minimal cough. No increased work of breathing. Cardiovascular: Regular rate and rhythm. No murmurs. No edema. Gastrointestinal: Normal bowel sounds, soft, nontender and nondistended. No hepatosplenomegaly noted. Musculoskeletal: No cyanosis. Patient is able to move all extremities. Skin: No rashes, warm dry and intact. Neurologic: No obvious focal neurological deficits seen. Psychiatric: Alert and oriented x3 with a euthymic affect. Results & Data Results & Data ([facility]) Vital Signs (Past 12 Hours) Vital Signs Temp Pulse Pulse Resp BP Pulse Ox O2 Del Method 05/11/22 07:39 36.4 C L 103 H 16 148/98 H 97 Room Air 05/11/22 06:13 96 H 05/11/22 07:16 104 H 17 99 Room Air 05/11/22 02:53 36.5 C 90 20 155/98 H 98 CPAP 05/11/22 02:33 92 H 19 98 05/10/22 22:44 36.5 C 106 H 20 157/93 H 99 CPAP 05/10/22 22:00 110 H 30 H 95 05/10/22 22:48 107 H 05/10/22 21:46 CPAP FiO2 05/11/22 07:39 05/11/22 06:13 05/11/22 07:16 05/11/22 02:53 05/11/22 02:33 21 05/10/22 22:44 05/10/22 22:00 21 05/10/22 22:48 05/10/22 21:46 PG Care Time/CCT Total # of Minutes Spent Total Time Spent with Patient: Total time spent is greater than 50% in coordination of care (as documented) at patient's floor/unit and/or counseling patient: Coding Level of Care Code 16593 Subseq Hosp Care Lvl 2 Diagnoses Asthma exacerbation in COPD J44.1; J45.901 History of tobacco abuse Z87.891 Obstructive sleep apnea on CPAP G47.33; Z99.89 History of pulmonary embolism Z86.711 Obesity E66.9
[2022-05-11] MEDS ORDERED: NITROGLYCERIN SL 0.4 MG/TAB TAB ONE (10:49)
[2022-05-11] MEDS ORDERED: MoRPHine SULFATE 4 MG/ML 1 ML CARP\\VIAL ONE (10:58)
[2022-05-11] MEDS ORDERED: FUROSEMIDE 40 MG/4 ML VIAL IV ONE (11:02)
[2022-05-11] MEDS ORDERED: ASPIRIN 81 MG CHEW ONE (11:09)
[2022-05-11] MEDS ORDERED: NITROGLYCERIN 2% OINTMENT 30GM TUBE ONE ×4 (11:10→11:16)
[2022-05-11] MEDS ORDERED: MIDAZOLAM HCL 1 MG/ML 2ML VIAL ONE (11:34)
[2022-05-11] MEDS ORDERED: HEPARIN (PORCINE) 1000 UNIT/ML 10 ML (CATH LAB USE ONLY) ONE (11:34)
[2022-05-11] MEDS ORDERED: fentaNYL citrate 100 MCG/2 ML VIAL ONE (11:34)
[2022-05-11] MEDS ORDERED: niCARdipine HCL INJ 2.5 MG/ML 10 ML AMP ONE (11:34)
[2022-05-11] MEDS ORDERED: NITROGLYCERIN/D5W 100MCG/ML 20ML SYR ONE (11:35)
--- NOTE | 2022-05-11 11:35 | XRay Report ---
XR chest 1V portable HISTORY: Atypical CHEST PAIN COMPARISON: Chest 05/06/2022. FINDINGS: There are low lung volumes. No pneumothorax. Trace bilateral pleural effusions. The heart i s enlarged. There is diffuse interstitial/vascular thickening which is slightly progressed. This sugg ests mild pulmonary edema. Otherwise, no new focal lung consolidations to suggest pneumonia. IMPRESSION: Cardiomegaly with mild interstitial pulmonary edema and trace bilateral pleural effusions. This has s lightly progressed. ACT 112: Negative or not required by law. Electronically signed by: Octaviano Garcia M.D. 05/11/2022 11:33 AM
--- NOTE | 2022-05-11 12:51 | Pre Anesthesia Assessment ---
Date of Service May 11, 2022 Pre Sedation Assessment Vital Signs Temp Pulse Pulse Pulse Resp BP Pulse Ox 05/11/22 12:40 117 H 17 110/75 95 05/11/22 09:39 05/11/22 07:39 97.5 F L 103 H 16 148/98 H 97 05/11/22 06:13 96 H 05/11/22 07:16 104 H 17 99 05/11/22 02:53 97.7 F 90 20 155/98 H 98 05/11/22 02:33 92 H 19 98 05/10/22 22:44 97.7 F 106 H 20 157/93 H 99 05/10/22 22:00 110 H 30 H 95 05/10/22 22:48 107 H 05/10/22 21:46 05/10/22 19:23 110 H 25 H 96 05/10/22 17:56 112 H 05/10/22 18:16 05/10/22 15:53 98.1 F 106 H 18 115/72 92 05/10/22 14:56 113 H 18 98 O2 Del Method FiO2 05/11/22 12:40 Room Air 05/11/22 09:39 Room Air, CPAP 05/11/22 07:39 Room Air 05/11/22 06:13 05/11/22 07:16 Room Air 05/11/22 02:53 CPAP 05/11/22 02:33 21 05/10/22 22:44 CPAP 05/10/22 22:00 21 05/10/22 22:48 05/10/22 21:46 CPAP 05/10/22 19:23 Room Air 21 05/10/22 17:56 05/10/22 18:16 Room Air, CPAP 05/10/22 15:53 Room Air 05/10/22 14:56 Room Air Cardiovascular RRR, no murmur, no edema Respiratory normal respiratory effort, lungs clear to auscultation Pre-Sedation Airway Assessment Smoking Status: Former smoker Hx Sleep Apnea: No Hx Difficult Intubation: No Short, Thick Neck: No Thyromental Distance: > or= 3.5 Finger Breadths Oral Cavity: + WNL Mallampati Class: III ASA: ASA3 Procedure Planning Contraindications for Sedation: none Current Medications Reviewed: Yes Notes The planned sedation has been discussed with the patient. Informed Consent was obtained. I have identified the patient, determined the appropriateness of sedation and have assessed the patient immediately prior to the procedure. All medicine(s) and interventions are by my order.
--- NOTE | 2022-05-11 12:52 | Post Anesthesia Assessment ---
Date of Service May 11, 2022 Post Sedation Assessment Vital Signs Temp Pulse Pulse Pulse Resp BP Pulse Ox 05/11/22 12:40 117 H 17 110/75 95 05/11/22 09:39 05/11/22 07:39 97.5 F L 103 H 16 148/98 H 97 05/11/22 06:13 96 H 05/11/22 07:16 104 H 17 99 05/11/22 02:53 97.7 F 90 20 155/98 H 98 05/11/22 02:33 92 H 19 98 05/10/22 22:44 97.7 F 106 H 20 157/93 H 99 05/10/22 22:00 110 H 30 H 95 05/10/22 22:48 107 H 05/10/22 21:46 05/10/22 19:23 110 H 25 H 96 05/10/22 17:56 112 H 05/10/22 18:16 05/10/22 15:53 98.1 F 106 H 18 115/72 92 05/10/22 14:56 113 H 18 98 O2 Del Method FiO2 05/11/22 12:40 Room Air 05/11/22 09:39 Room Air, CPAP 05/11/22 07:39 Room Air 05/11/22 06:13 05/11/22 07:16 Room Air 05/11/22 02:53 CPAP 05/11/22 02:33 21 05/10/22 22:44 CPAP 05/10/22 22:00 21 05/10/22 22:48 05/10/22 21:46 CPAP 05/10/22 19:23 Room Air 21 05/10/22 17:56 05/10/22 18:16 Room Air, CPAP 05/10/22 15:53 Room Air 05/10/22 14:56 Room Air Recovery Score Activity: Moves 4 extremities Respiration: Deep Breath/Cough Circulation: +/-20% PreAnes Value Consciousness: Fully Awake Oxygen Saturation: > 92% On Room Air Post Anesthesia Score: 10 Discharge Sedation Level of Care: Fast Track Phase II Post Sedation Plan On clinical assessment, the patient appears to have tolerated the sedation without complications. Patient is recovering as anticipated. Patient will continue to be monitored by nursing and may be discharged when sedation discharge criteria are met per below protocol. Upon Completions of procedure up to 15 minutes continue every 5 minute vital signs and the P.A.R. score; then discharge to a Phase I or Fast Track to Phase II per the following guidelines: * Discharge Patient to appropriate Phase II area if PAR is 8 or greater or return to pre- procedure baseline. The post - procedure orders will be as directed. * If PAR score is less than 8 or not return to pre-procedure baseline then patient will follow Phase I monitoring till PAR is reached for Phase II. The Phase I may be done in procedure room or may call to secure a Phase I area. * If naloxone or flumazenil are used for reversal, hold in Phase I for continued monitoring from when last reversal dose was given for a minimum of 60 minutes or longer pending the nurse and/or physician discretion of patient condition before discharge to Phase II. Please call the Sedation Physician to re-evaluate and complete post-note for discharge to Phase II area. Do NOT discharge from procedure sedation or Phase 1 until post- sedation evaluation note is complete by procedure /sedation MD Sedation Discharge Instructions to be given to the patient at discharge to home.
--- NOTE | 2022-05-11 13:04 | Cardiac Catheterization ---
[facility] Data: Clutch Specialist Cardiac Status Clinical evaluation leading to the procedure CAD Presenation: Unstable angina Anginal Classification: CCS IV Diagnostic Physicians Name: Kwaku Tafoya MD Closure Device Recommendations: Medical Therapy and/or Counseling and Valve Replacement Cardiac Cath Procedure Full Procedure Date May 11, 2022 Pre-Procedure Diagnosis Pre-Procedure Diagnosis: Acute Coronary Syndrome and Valvular Disease AUC Score AUC Score: 7 Post-Procedure Diagnosis Post-Procedure Diagnosis: Normal Coronary Arteries and Normal Intracardiac Pressures Procedure(s) Performed Procedure(s) Performed: Coronary Angiography, Left Heart Cath, Right Heart Cath and Ultrasound Guided Vascular Access Certified Medication Aide Kwaku Tafoya MD Regional Project Manager(s) Del Estimated Blood Loss Estimated Blood Loss: 15 Medication(s) Medication(s): Fentanyl, Heparin, Lidocaine 1%, Nicardipine and Nitroglycerin Summary of Findings Indication: Acute chest pain, suspected ACS, severe mitral regurgitation, new LV dysfunction Access: 6 Fr right ulnar artery under ultrasound guidance, 6 Fr right antecubital vein under ultrasound guidance Catheters: Gregory, pigtail, 6 Fr swan Findings: LM -medium caliber, no significant disease LAD -medium caliber vessel that wraps around the apex, gives off small D1, medium D2. Angiographically normal Circumflex -medium caliber, gives off large OM1. Angiographically normal RCA -dominant, antegrade takeoff, medium caliber, angiographically normal Right heart cath: RA 3 RV 28/5 PA 32/15 (22) PAWP 17 LVEDP 6 PaSat 56% AoSat 93% [place] CO/CI 4.7/2.2 Arterial Closure: TR band Summary: 1. Angiographically normal coronary arteries 2. Normal left and right-sided filling pressures 3. Normal pulmonary artery pressures 4. Normal cardiac output Recommendations: Referral for mitral valve repair per Dr. Guy Additional evaluation for noncardiac causes of chest pain Hemodynamics Rest Ao:: [id number] Final Ao: 121/89/99 LV: 118/6 Recommendations Recommendations: Medical Therapy and/or Counseling and Valve Replacement Specimens Specimens: None Radiation Exposure (mGy) 816 Contrast (mls) 50 Anesthesia Moderate [id number] Procedural Complication(s) None Disposition Clutch Specialist Holding/Recovery I attest to the content of the Intraoperative Record and any orders documented therein. Any exceptions are noted below. [employer] Card Cath Procedure Codes Cardiac Catheterization Procedure 1: Cardiovascular Cath Procedures: 20113 Coronaries & LHC (+/-LV) & RHC Therapeutic Services & Ancillary Proc Procedure 1: Cardiovascular Tx and Anc Procedures: 36741 Ultrasonic Guidance Vascular Access Procedure 2: Cardiovascular Tx and Anc Procedures: 84756 Ultrasonic Guidance Vascular Access Moderate Sedation Procedure 1: Sedation/Anesthesia: 85080 Mod Sedation by the same physician;Init15 Min Child Age 5 & Up Procedure 2: Sedation/Anesthesia: 27120 Mod Sedation by the same physician; Ea [id number] Minutes PG Care Time/CCT Total # of Minutes Spent Total Time Spent with Patient: Total time spent is greater than 50% in coordination of care (as documented) at patient's floor/unit and/or counseling patient:
[2022-05-11] MEDS ORDERED: SODIUM CHLORIDE 0.9% 1000ML 1,000 ML IV SCH (13:15)
--- NOTE | 2022-05-11 13:54 | Cardiology Consultation ---
Date of Consultation May 11, 2022 Assessment & Plan (1) Combined systolic and diastolic congestive heart failure: -well compensated at this time. -normal pulmonary capillary wedge pressure of 17 on catheterization today. -continue daily weights and sliding-scale diuretics. -mild left ventricular dysfunction noted on echocardiogram yesterday. -mitral regurgitation is severe. -may benefit from the addition of metoprolol succinate 25 mg daily. -continue losartan. (2) Mitral regurgitation: -severe mitral regurgitation with evidence of new, mild, left ventricular dysfunction. -needs referral to CT surgery for mitral valve repair/replacement. (3) Hx of coronary artery disease: -normal coronary arteries on catheterization today. -LCx stents are patent. -continue medical management and risk factor reduction. (4) Pulmonary embolism and infarction: -occurred in October 2021. -continue Xarelto. History of Present Illness Attending Physician: Tamera Caruso MD History of Present Illness Mrs. Acostaston is a 56-year-old female admitted on May 06 with an asthmatic exacerbation. This consultation was ordered as she had an abnormal echocardiogram performed yesterday. Of note, the patient is followed in our Heart failure [facility] by Nita Moon PA-C. Echocardiogram performed yesterday noted mild left ventricular dysfunction with ejection fraction 45-50%. There was mild LVH along with severe left atrial dilatation. There was mitral annular dilatation with severe mitral regurgitation. Compared with the study done in October 2021, left ventricular dysfunction now present. Results personally reviewed and discussed with the patient at the bedside. Prior to my visit with the patient this morning, she developed acute substernal chest pain and a heart alert was called. Fortunately, her coronary arteries were angiographically normal. Right heart pressures were also normal. Results reviewed with the patient. She was previously diagnosed with chronic diastolic CHF. The patient has been careful to follow a low-salt diet, however, does admit to noncompliance at times eating moreau and sausage. She follow daily weights at home and notes a dry weight of 240 lb. She typically takes Lasix 20 mg daily with an additional dose when necessary for weight gain. Currently, patient is resting comfortably in bed without complaints. Past medical and surgical history 1. Coronary artery disease 2. LCx stent times -2011 3. Hypercholesterolemia 4. Diabetes mellitus 5. Asthma/COPD 6. GERD 7. Anxiety/depression 8. Vitamin-D deficiency 9. Hemiplegia migraine headaches 10. Obesity 11. Obstructive sleep apnea 12. Pulmonary embolism-October 2021 13. History of mandibular surgery 14. Left knee arthroscopy 15. Tubal ligation 16. ORIF left tibia-2014 Social history and lives with her No tobacco alcohol Family history Father at 52 from an [place] Mother at 64 from breast carcinoma Review of systems A 10 review systems was undertaken and negative except that described above. Allergies Allergy/AdvReac Type Severity Reaction Status Date / Time No Known Allergies Allergy Verified 05/06/22 18:21 Home Medications Medication Instructions Recorded Confirmed Type nicotine 21 mg/24 hr daily 21 mg transdermal QAM #30 ea 01/26/22 05/06/22 Rx transdermal patch (Nicoderm CQ) albuterol sulfate 90 mcg/actuation 2 puff inhalation Q6 PRN Shortness 05/03/22 05/06/22 Rx aerosol inhaler Of Breath Or Wheezing #18 grams benzonatate 100 mg capsule 100 mg PO Q8H PRN cough #30 caps 05/03/22 05/06/22 Rx cyclobenzaprine 5 mg tablet 5 mg PO TID PRN muscle spasm #30 05/03/22 05/06/22 Rx tabs diclofenac sodium 1 % topical gel 2 g topical QID PRN Pain #100 grams 05/03/22 05/06/22 Rx furosemide 20 mg tablet 20 mg PO DAILY #90 tabs 05/03/22 05/06/22 Rx hydrocortisone 1 %-pramoxine 1 % 1 applic AL BID PRN hemorrhoids 05/03/22 05/06/22 Rx rectal foam (Proctofoam HC) #10 grams ipratropium bromide 17 2 puff inhalation TID #12.9 grams 05/03/22 05/06/22 Rx mcg/actuation HFA aerosol inhaler (Atrovent HFA) lisinopril 10 mg tablet 10 mg PO DAILY #90 tabs 05/03/22 05/06/22 Rx metformin 500 mg tablet,extended 500 mg PO QPM #90 tabs 05/03/22 05/06/22 Rx release 24 hr mometasone-formoterol HFA 200 2 puff inhalation BID #13 grams 05/03/22 05/06/22 Rx mcg-5 mcg/actuation aerosol inhaler (Dulera) nitroglycerin 0.4 mg sublingual 0.4 mg sublingual UD PRN Chest 05/03/22 05/06/22 Rx tablet (Nitrostat) Pain #25 tabs pantoprazole 40 mg tablet,delayed 40 mg PO DAILY #90 tabs 05/03/22 05/06/22 Rx release (Protonix) ipratropium 0.5 mg-albuterol 3 mg 3 ml NEB Q6H PRN wheezing/SOB/cough 05/06/22 05/06/22 History (2.5 mg base)/3 mL nebulization soln rivaroxaban 20 mg tablet (Xarelto) 20 mg PO QPM 05/06/22 05/06/22 History Patient History Medical History (Updated 05/11/22 @ 14:02 by Dwayne Guy MD) Active asthma Arthritis of knee Asthma exacerbation in COPD CHF (congestive heart failure) Chronic low back pain CSF leak Degeneration of cervical intervertebral disc Dizziness External hemorrhoids Frequent falls GERD (gastroesophageal reflux disease) Hemiplegic migraine History of pulmonary embolism History of tobacco abuse History of tobacco abuse Left-sided chest pain Morbid obesity due to excess calories Obesity Obstructive sleep apnea Severe asthma with acute exacerbation TIA (transient ischemic attack) Urinary incontinence Vertebral artery stenosis Vitamin D deficiency Surgical History Facial fracture (2014) WITH RECONSTRUCTION History of bilateral tubal ligation History of cardiac cath X2 STENTS - (~2010, IN [place], [place]). NO STENTS - ([facility] @ ~2014) History of colonoscopy History of esophagogastroduodenoscopy (EGD) History of heart artery stent X2 STENTS (2010) UNSURE OF KIND. NO STENT CARDS PER PT. History of mandibular surgery S/P left knee arthroscopy S/p tibial fracture open treatment of Fx with plate/screws, Left leg Status post right foot surgery Family History Mother Breast cancer, Onset Age: 64 Type 2 diabetes mellitus Father Diabetes Coronary heart disease Type 2 diabetes mellitus Myocardial infarction, Onset Age: 52 Family/Other Hypertension sibling Denies family history of Ovarian cancer Social History Smoking Status: Former smoker Tobacco Type: Cigarettes Years Smoked: 40; Second Hand Exposure: Yes; Hx Alcohol Use: No Hx Substance Use: No Preferred Language: Greenlandic Communication Ability: Effective Visual Impairment: No Limitations Sharepoint 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 How many Children do You have: 5 Other Information That Helps Us Care for You: No Feels Safe at Home: Yes Safety Concerns: Feels Safe At This Time Assistive Devices: Cane and Other Assistive Devices Comment: Power Chair Physical Exam Physical Exam: In general this is an obese black female lying supine in bed without complaints. HEENT exam is negative. Neck is supple with full carotid upstrokes. No carotid bruits. Jugular is pressure is flat at 90. There is no thyromegaly. Cardiovascular exam reveals a regular rhythm with normal S1 and S2. Heart sounds are distant. No obvious murmurs. Lungs are clear without rales, rhonchi, wheezes. Abdomen is obese without bruits. Extremities reveal i ntact radial artery pulses bilaterally. There is no peripheral edema. Results & Data ([facility]) Vital Signs (Past 12 Hours) Vital Signs Temp Pulse Pulse Resp BP Pulse Ox O2 Del Method 05/11/22 13:23 113 H 17 135/87 92 Room Air 05/11/22 12:56 115 H 17 123/78 95 Room Air 05/11/22 12:40 117 H 17 110/75 95 Room Air 05/11/22 09:39 Room Air, CPAP 05/11/22 07:39 36.4 C L 103 H 16 148/98 H 97 Room Air 05/11/22 06:13 96 H 05/11/22 07:16 104 H 17 99 Room Air 05/11/22 02:53 36.5 C 90 20 155/98 H 98 CPAP 05/11/22 02:33 92 H 19 98 FiO2 05/11/22 13:23 05/11/22 12:56 05/11/22 12:40 05/11/22 09:39 05/11/22 07:39 05/11/22 06:13 05/11/22 07:16 05/11/22 02:53 05/11/22 02:33 21 Laboratory Results CBC notes hemoglobin 13.7, hematocrit 42.8, white count 18.4, platelet count [id number]. Electrolytes note a sodium of 137, potassium 4.7, chloride 105, bicarb 26, BUN 36, creatinine 0.9, and glucose of 247. High sensitivity troponin was 10.7 on admission. BNP mildly elevated 189 on admission. PG Care Time/CCT Total # of Minutes Spent Total Time Spent with Patient: Total time spent is greater than 50% in coordination of care (as documented) at patient's floor/unit and/or counseling patient: Coding Level of Care Code 52115 Office/OBS Consult Lvl 5 Diagnoses Combined systolic and diastolic congestive heart failure I50.40 Mitral regurgitation I34.0 Hx of coronary artery disease Z86.79 Pulmonary embolism and infarction I26.99
[2022-05-11] MEDS: MoRPHine SULFATE 4 MG/ML 1 ML CARP\\VIAL IV PRN ×2 (14:04→22:05)
[2022-05-11 14:51] LABS: D Dimer < 190 ug/L FEU (0-500)
[2022-05-11] MEDS: POLYETHYLENE (MIRALAX) 17 GM PACK PO PRN (15:29)
--- NOTE | 2022-05-11 16:28 | Hospitalist Progress Note ---
Date of Service May 11, 2022 Assessment & Plan (1) Acute chest pain: Plan: Severe acute chest pain this a.m.; received nitro, followed by Nitropaste, aspirin, morphinetaken to [place], no chronic disease; normal pressure; continues intermittentlysymptomatic treatment; etiology not clear; D-dimer negative (on Xarelto) empiric IV; PPI and symptomatic treatment for now (2) Asthma: Plan: Exacerbation along with COPD original presentationcoming along well on from this perspective Pulmonary input greatly appreciated; on Brovana, budesonide, Spiriva, Incruse Ellipta with percussive therapy ordered Pulmonary recommends continue current methylprednisolone Outpatient pulmonary follow-up (3) GERD (gastroesophageal reflux disease): Plan: Empirically made IV, can adjust; follow; will consider GI consult depending on course though not typical of GERD (4) Osteoarthritis: Plan: Bilateral knee and back - previously received injections with Durolane (5) Combined systolic and diastolic congestive heart failure: Plan: Now LV systolic dysfunction, severe MR -added ARB, added metoprolol succinate; MR will have to be addressed by CT surgery consult, as outpatient per discussion with cardiology (6) DMII (diabetes mellitus, type 2): Plan: Sugars persistently high-steroids cut back, pharmacy consult (7) History of pulmonary embolism: Plan: CTA chest neg here for PE continue Xarelto (8) Leucocytosis: Plan: Likely steroid relatedfollow Admission and Anticipated Discharge Date Admission Date: May 06, 2022 Subjective Follow-up of original presentation with shortness of breathwas doing better during rounds this a.m.; later during the morning developed sudden severe chest pain and had several interventions followed by coronary angiographyno significant coronary disease; continues intermittent pain Physical Exam Physical Exam: Constitutional and general: No acute distress, looks biologic age Head and face: No puffiness, atraumatic Eyes: No scleral icterus, extraocular movements normal Neck: Supple, no JVD Musculoskeletal: No acute joint swelling, no bony abnormalities Skin/dermatologic/integument: No rash, no purpura Hematologic and lymphatic: pallor +, no petechia Gastrointestinal/abdomen: Nondistended, soft, nonacute Neurologic: Cranial nerves intact, nonfocal Psychiatry: Awake, alert, pleasant, communicative Cardiovascular: Heart rhythm regular, no rub, no murmur, no gallop Respiratory: Chest movements equal, +use of accessory muscles, actually no significant wheezing when seen Extremities: No edema, no cyanosis Results & Data Results & Data ([facility]) Vital Signs (Past 12 Hours) Vital Signs Temp Pulse Pulse Resp BP BP Pulse Ox 05/11/22 15:50 36.4 C L 112 H 14 113/67 94 05/11/22 15:04 36.6 C 118 H 16 100/69 96 05/11/22 13:45 05/11/22 14:33 36.6 C 111 H 16 121/77 96 05/11/22 14:05 36.8 C 118 H 18 123/86 95 05/11/22 13:47 121 H 30 H 131/94 96 05/11/22 13:44 36.4 C L 115 H 24 117/77 94 05/11/22 13:23 113 H 17 135/87 92 05/11/22 12:56 115 H 17 123/78 95 05/11/22 12:40 117 H 17 110/75 95 05/11/22 09:39 05/11/22 07:39 36.4 C L 103 H 16 148/98 H 97 05/11/22 06:13 96 H 05/11/22 07:16 104 H 17 99 O2 Del Method 05/11/22 15:50 Room Air 05/11/22 15:04 Room Air 05/11/22 13:45 Room Air 05/11/22 14:33 Room Air 05/11/22 14:05 Room Air 05/11/22 13:47 Room Air 05/11/22 13:44 Room Air 05/11/22 13:23 Room Air 05/11/22 12:56 Room Air 05/11/22 12:40 Room Air 05/11/22 09:39 Room Air, CPAP 05/11/22 07:39 Room Air 05/11/22 06:13 05/11/22 07:16 Room Air Laboratory Results Laboratory Results - last 24 hr 05/10/22 05/10/22 05/11/22 16:49 20:21 06:10 WBC 18.44 H RBC 4.43 Hgb 13.7 Hct 42.8 MCV 96.6 MCH 30.9 MCHC 32.0 RDW Std Deviation 48.6 H RDW Coeff of Majo 13.6 Plt Count 216 MPV 11.5 Immature Gran % (Auto) 1.2 Neut % (Auto) 84.9 Lymph % (Auto) 10.4 Lynn % (Auto) 3.3 Eos % (Auto) 0.0 Baso % (Auto) 0.2 Neut # (Auto) 15.67 H Lymph # (Auto) 1.91 Lynn # (Auto) 0.61 Eos # (Auto) 0.00 Baso # (Auto) 0.03 Immature Gran # (Auto) 0.22 H D-Dimer Sodium Potassium Chloride Carbon Dioxide Anion Gap BUN Creatinine Est Cr Clr Drug Dosing Est GFR ( Amer) Est GFR (Non-Af Amer) POC Glucose 240 H 398 H* Fasting Glucose Calcium Magnesium Total Bilirubin AST ALT Alkaline Phosphatase Total Protein Albumin Globulin Albumin/Globulin Ratio 05/11/22 05/11/22 05/11/22 06:10 07:47 10:48 WBC RBC Hgb Hct MCV MCH MCHC RDW Std Deviation RDW Coeff of Majo Plt Count MPV Immature Gran % (Auto) Neut % (Auto) Lymph % (Auto) Lynn % (Auto) Eos % (Auto) Baso % (Auto) Neut # (Auto) Lymph # (Auto) Lynn # (Auto) Eos # (Auto) Baso # (Auto) Immature Gran # (Auto) D-Dimer Sodium 137 Potassium 4.7 Chloride 105 Carbon Dioxide 26 Anion Gap 6 BUN 36 H Creatinine 0.90 Est Cr Clr Drug Dosing 87.3 Est GFR ( Amer) 82.3 Est GFR (Non-Af Amer) 71.0 POC Glucose 247 H 344 H* Fasting Glucose 312 H* Calcium 8.8 Magnesium 2.4 Total Bilirubin 0.2 AST 9 L ALT 14 Alkaline Phosphatase 103 Total Protein 6.5 Albumin 3.4 Globulin 3.1 Albumin/Globulin Ratio 1.1 05/11/22 05/11/22 14:07 14:21 WBC RBC Hgb Hct MCV MCH MCHC RDW Std Deviation RDW Coeff of Majo Plt Count MPV Immature Gran % (Auto) Neut % (Auto) Lymph % (Auto) Lynn % (Auto) Eos % (Auto) Baso % (Auto) Neut # (Auto) Lymph # (Auto) Lynn # (Auto) Eos # (Auto) Baso # (Auto) Immature Gran # (Auto) D-Dimer < 190 Sodium Potassium Chloride Carbon Dioxide Anion Gap BUN Creatinine Est Cr Clr Drug Dosing Est GFR ( Amer) Est GFR (Non-Af Amer) POC Glucose 209 H Fasting Glucose Calcium Magnesium Total Bilirubin AST ALT Alkaline Phosphatase Total Protein Albumin Globulin Albumin/Globulin Ratio PG Care Time/CCT Total # of Minutes Spent Total Time Spent with Patient: Total time spent is greater than 50% in coordination of care (as documented) at patient's floor/unit and/or counseling patient: Coding Level of Care Code 73132 Subseq Hosp Care Lvl 3 Diagnoses Acute chest pain R07.9 Asthma J45.909 GERD (gastroesophageal reflux disease) K21.9 Osteoarthritis M19.90 Combined systolic and diastolic congestive heart failure I50.40 DMII (diabetes mellitus, type 2) E11.9 History of pulmonary embolism Z86.711 Leucocytosis D72.829
--- NOTE | 2022-05-11 16:51 | Electrocardiogram Report ---
Test Reason : Blood Pressure : / mmHG Vent. Rate : 110 BPM Atrial Rate : 110 BPM P-R Int : 154 ms QRS Dur : 078 ms QT Int : 328 ms P-R-T Axes : 041 031 068 degrees QTc Int : 443 ms Sinus tachycardia Right atrial enlargement Voltage criteria for left ventricular hypertrophy Abnormal ECG When compared with ECG of 06-MAY-2022 16:16, T wave amplitude has increased in Anterior leads Confirmed by Dwayne Guy ([id number]) on 05/11/2022 4:51:15 PM Referred By: REFERRED SELF Confirmed By:Dwayne Guy
[2022-05-11] MEDS: METOPROLOL SUCC 25MG EXT REL TAB PO SCH (17:36)
[2022-05-11] MEDS ORDERED: OPTIRAY 320 125ml IV ONE (18:44)
--- NOTE | 2022-05-11 19:18 | CT Scan Report ---
CT ANGIOGRAM OF THE CHEST COMBO CLINICAL HISTORY: Atypical chest pain. Dyspnea. COMPARISON STUDY: Chest CT dated 05/06/2022 end 11/22/2016. TECHNIQUE: Before and following the IV administration of 120 cc of Optiray 320, CT angiogram of the c hest was performed from the thoracic inlet to the upper abdomen utilizing the dissection protocol. Im ages are reviewed in the axial, sagittal, and coronal planes. 3-D MIPS images are created and assesse d. IV contrast was administered without complication. A dose lowering technique was utilized adherin g to the principles of ALARA. CT DOSE: 1624.39 mGy.cm FINDINGS: Thyroid: Mildly enlarged and heterogeneous. A 14 mm nodule is noted in the left lobe. Thoracic aorta: No intramural hematoma is seen on the unenhanced series. There is evidence carotid ca lcification of the thoracic aorta, which is normal in caliber and demonstrates standard 3-vessel arch anatomy. No dissection is seen. The arch vessels are widely patent. Pulmonary vasculature: The pulmonary trunk is normal in caliber. There are no central filling defects identified in the pulmonary vessels to suggest pulmonary embolus. Note that this examination was not specifically protocoled to assess for pulmonary emboli. Heart: The heart is enlarged and without pericardial effusion. There are coronary artery calcificatio ns. Lungs and pleural spaces: Mild emphysematous change is noted at the apices. No airspace consolidation or pleural effusion is identified. A 3 mm right upper lobe pulmonary nodule on image #85 is unchange d from 2017 and of doubtful significance. The trachea and central airways appear clear. Mediastinum: There is no mediastinal lymphadenopathy. Mary Jo: Clear. Axillae: There is no axillary lymphadenopathy. Upper abdomen: A 1.6 cm cyst is noted in the upper pole of the right kidney. Partially visualized upp er abdominal viscera is otherwise within normal limits. Skeletal structures: The skeletal structures are osteopenic. Degenerative change is noted throughout the thoracic spine. No lytic or blastic bony lesions are seen. IMPRESSION: 1. Unremarkable CT angiogram of the thoracic aorta. No change from the 05/06/2022 examination. 2. Cardiomegaly and mild emphysema. 3. There is no airspace consolidation or pleural effusion. 4. There is a 13 mm low-attenuation nodule in the left lobe of the thyroid. Nonemergent/outpatient th yroid ultrasound is recommended in follow-up. 5. Additional findings as above. ACT 112: Negative or not required by law. Electronically signed by: Marin De La Rosa M.D. 05/11/2022 7:16 PM
[2022-05-11] MEDS: MONTELUKAST SODIUM 10 MG TABLET PO SCH (20:30)
[2022-05-11] MEDS: PANTOprazole 40 MG in SYRINGE 0 ML IV SCH (20:30)
[2022-05-11] MEDS: RIVAROXABAN 20 MG TAB PO SCH (20:31)
[2022-05-12] MEDS: INSULIN ASPART PER UNIT SC SCH ×4 (07:44→21:21)
[2022-05-12] MEDS: BUDESONIDE 0.5 MG/2 ML VIAL (PULMICORT) NEB SCH ×2 (08:01→19:46)
[2022-05-12] MEDS: FORMOTEROL 20 MCG/2 ML VIAL INH SCH ×2 (08:01→19:46)
[2022-05-12] MEDS: ACETAMINOPHEN 325 MG TAB PO PRN (08:54)
[2022-05-12] MEDS: INSULIN HUMAN NPH SC SCH (08:56)
[2022-05-12] MEDS: FUROSEMIDE 20 MG TAB PO SCH (08:57)
[2022-05-12] MEDS: DOCUSATE SODIUM/SENNA 50/8.6MG TAB PO SCH (08:57)
[2022-05-12] MEDS: guaiFENesin 600 MG TABCR PO SCH ×2 (08:57→21:30)
[2022-05-12] MEDS: LIDOCAINE 5% 1 PATCH TD SCH (08:58)
[2022-05-12] MEDS: LOSARTAN POTASSIUM 25 MG TAB PO SCH (08:59)
[2022-05-12] MEDS ORDERED: predniSONE 20 MG TAB PO SCH (09:00)
[2022-05-12] MEDS: NICOTINE 21 MG/24 HR TDSY TD SCH (09:00)
[2022-05-12] MEDS: METOPROLOL SUCC 25MG EXT REL TAB PO SCH (09:00)
[2022-05-12] MEDS: UMECLIDINIUM BROMIDE 62.5MCG/BLISTER 7 PUFFS/INHALER INH SCH (09:02)
[2022-05-12] MEDS: PANTOprazole 40 MG in SYRINGE 0 ML IV SCH (09:07)
[2022-05-12] MEDS: HYDROcodone/HOMATROPINE SYRUP 5MG/1.5MG 5ML UDP PO PRN (09:17)
[2022-05-12 09:18] LABS: Hematocrit (blood only) 46.3 % (34.1-44.9); Hemoglobin 14.5 g/dl (12.0-16.0); Mean Corpuscular Hemoglobin 30.5 pg (25.0-34.0); Mean Corpuscular Hgb Conc 31.3 g/dL (32.0-36.0); Mean Corpuscular Volume 97.3 fL (80.0-100.0); Mean Platelet Volume 11.5 fL (9.4-12.3); Platelet Count 233 K/uL (130-400); RDW Standard Deviation 50.4 fL (36.4-46.3); Red Blood Count 4.76 M/uL (3.93-5.22); White Blood Count 13.28 K/ul (4.8-10.8)
[2022-05-12 09:38] LABS: Albumin Globulin Ratio 1.1 (0.9-2); Albumin Level 3.3 gm/dl (3.4-5.0); Bilirubin,Total 0.3 mg/dl (0.2-1.0); Creatinine Clr Calc Pharmacy 79.4 ml/min; Est GFR (African American) 73.3 ml/min; Est GFR (Non-African American) 63.3 ml/min; Magnesium 2.4 mg/dl (1.7-2.4); Total Protein 6.3 gm/dl (6.0-8.3)
[2022-05-12 09:44] LABS: Basophils # (auto) 0.02 K/uL (0-0.2); Basophils % (auto) 0.2 %; Eosinophils # (auto) 0.03 K/uL (0-0.50); Eosinophils % (auto) 0.2 %; Immature Granulocytes % (auto) 0.8 %; Lymphocytes # (auto) 5.08 K/uL (1.2-3.4); Lymphocytes % (auto) 38.3 %; Monocytes # (auto) 0.71 K/uL (0.24-0.82); Monocytes % (auto) 5.3 %; Neutrophils # (auto) 7.34 K/uL (1.4-6.5); Neutrophils % (auto) 55.2 %; RBC Morphology Unremarkable
[2022-05-12 10:25] LABS: Estimated Average Glucose 169 mg/dl; Hemoglobin A1C 7.5 % (4.5-5.6)
--- NOTE | 2022-05-12 11:42 | Pulmonology Progress Note ---
Date of Service May 12, 2022 Assessment & Plan (1) Asthma exacerbation in COPD: Plan: Continue Brovana twice daily and budesonide twice daily. Continue incruse. Patient should be on an ICS/LABA/LAMA inhaler upon discharge. Percussive vest therapy.. Continue Mucinex. Continue as needed albuterol/ipratropium. Continue prednisone and taper over the course of 2 weeks. Patient can likely be discharged home tomorrow. Will need updated PFTs as an outpatient. Pulmonary rehab should be strongly considered in this patient. Allergy referral to be considered as well for biologic therapy. Will sign off at this time. Please call with questions. Thank you for the consultation. (2) History of tobacco abuse: Plan: Strongly encouraged to continue with smoking cessation and avoid secondhand smoke exposure as much as possible. (3) Obstructive sleep apnea on CPAP: Plan: Compliant with therapy. Continue and has CPAP. (4) History of pulmonary embolism: Plan: Repeat echo with evidence of mildly elevated right-sided pressures likely secondary to mitral valve regurgitation. LVEF is slightly lower than prior echo. Continue with anticoagulation given her history of PE and DVT. (5) Obesity: Plan: Weight loss strongly encouraged. Asthma difficult to control in obesity. (6) Acute chest pain: Plan: Patient had a left and right heart cath yesterday which was largely unrevealing. She did have a mildly elevated wedge pressure consistent with diastolic dysfunction and her known mitral valve regurgitation. Patient will need an outpatient CT surgery follow-up regarding her mitral valve. D-dimer negative and patient already on anticoagulation with Xarelto. Unlikely pulmonary etiology for chest pain. Possible reflux related discomfort. Plan Thank you for allowing us to participate in this patient's care. Please call with questions. Admission and Anticipated Discharge Date Admission Date: May 06, 2022 Subjective Patient denies any shortness of breath. Cough improved significantly improved. She does have some mild dull chest pain that is 4 out of 10. No fevers or chills overnight. Review of Systems Review of Systems: All systems reviewed & are unremarkable except as noted in HPI & below Physical Exam Physical Exam: Constitutional: Obese female in no apparent distress. Eyes: Pupils are equal round and reactive to light. Conjunctivae are normal. Anicteric sclera. Ears nose, mouth and throat: Deferred. Neck: Trachea is midline. Visual inspection is normal. Respiratory: Wheezing significantly improved. Minimal cough. No increased work of breathing. Cardiovascular: Regular rate and rhythm. No murmurs. No edema. Gastrointestinal: Normal bowel sounds, soft, nontender and nondistended. No hepatosplenomegaly noted. Musculoskeletal: No cyanosis. Patient is able to move all extremities. Skin: No rashes, warm dry and intact. Neurologic: No obvious focal neurological deficits seen. Psychiatric: Alert and oriented x3 with a euthymic affect. Results & Data Results & Data ([facility]) Vital Signs (Past 12 Hours) Vital Signs Temp Pulse Pulse Resp BP BP Pulse Ox 05/12/22 11:04 36.4 C L 98 H 17 140/76 92 05/12/22 08:02 106 H 18 96 05/12/22 06:45 96 H 05/12/22 04:47 36.7 C 96 H 16 125/84 98 05/12/22 02:57 105 H 20 95 05/12/22 00:07 36.9 C 98 H 15 126/86 97 05/11/22 23:51 104 H O2 Del Method FiO2 05/12/22 11:04 Room Air 05/12/22 08:02 Room Air 05/12/22 06:45 05/12/22 04:47 BiPAP 21 05/12/22 02:57 21 05/12/22 00:07 BiPAP 05/11/22 23:51 PG Care Time/CCT Total # of Minutes Spent Total Time Spent with Patient: Total time spent is greater than 50% in coordination of care (as documented) at patient's floor/unit and/or counseling patient: Coding Level of Care Code 51020 Subseq Hosp Care Lvl 2 Diagnoses Asthma exacerbation in COPD J44.1; J45.901 History of tobacco abuse Z87.891 Obstructive sleep apnea on CPAP G47.33; Z99.89 History of pulmonary embolism Z86.711 Obesity E66.9 Acute chest pain R07.9
--- NOTE | 2022-05-12 12:25 | Pharmacy Report ---
Pharmacy Glycemic Short Note 2 - Date of Service May 12, 2022 - Glycemic Short BSG Results (Last 24 hours): 05/11/22 05/11/22 05/11/22 14:07 16:28 20:07 POC Glucose 209 H 145 H 134 H Fasting Glucose 05/12/22 05/12/22 05/12/22 07:18 08:28 11:17 POC Glucose 115 H 89 Fasting Glucose 112 H OUTPATIENT ANTIDIABETIC REGIMEN: * metformin 500 mg PO qPM HbA1c: 7.8% (11/11/21) ASSESSMENT: 05/12/22: * BSGs trended down nicely following 344 mg/dL at mid-morning * Received 78 units of insulin (40 units of Lantus and 38 units of prandial/correctional Novolog) * Steroids changed to prednisone 40 mg PO daily today * Will switch from Lantus to NPH to mimic PK of steroid * Will be somewhat conservative given BSG downtrend yesterday * Fasting BSG of 115 mg/dL this morning 05/11/22: * HEMANT is a 56 year-old female admitted to [facility] on 05/06/22 with asthma exacerbation * Pharmacy consulted for glycemic management this morning (05/11/22) due to persistent hyperglycemia (steroid-induced) * Currently ordered methylprednisolone 40 mg IV q8h, will adjust insulin as steroids are tapered * Methylprednisolone discontinued today, starting prednisone 40 mg PO daily on 05/12/22 * Will increase basal insulin today to ~0.4 unit/kg to cover steroids and tighten Novolog to weight-based stress of 3 dosing * ~1050 patient complained of 10/10 chest pain, heart alert called and 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
--- NOTE | 2022-05-12 18:01 | Hospitalist Progress Note ---
Date of Service May 12, 2022 Assessment & Plan (1) Acute chest pain: Plan: Yesterday chest pain, work-up of negative, today pain-free, observe; empiric PPI (2) Asthma: Plan: Exacerbation along with COPD original presentationcoming along well on from this perspective Pulmonary input greatly appreciated; on Brovana, budesonide, Spiriva, Incruse Ellipta with percussive therapy ordered Continue prednisone, taper over tube Outpatient pulmonary follow-up (3) GERD (gastroesophageal reflux disease): Plan: Empirically made IV on account of chest pain, no change today; will consider outpatient GI GI history of (4) Osteoarthritis: Plan: Bilateral knee and back - previously received injections with Durolane (5) Combined systolic and diastolic congestive heart failure: Plan: Now LV systolic dysfunction, severe MR -added ARB, added metoprolol succinate; MR will have to be addressed by CT surgery consult, as outpatient per discussion with cardiology (6) DMII (diabetes mellitus, type 2): Plan: Sugars persistently high-steroids cut back, pharmacy consulted (7) History of pulmonary embolism: Plan: CTA chest neg here for PE continue Xarelto (8) Leucocytosis: Plan: Likely steroid relatedfollow Admission and Anticipated Discharge Date Admission Date: May 06, 2022 Subjective Follow-up of presentation with shortness of breath, chest pain yesterdayno complaints voiced today Physical Exam Physical Exam: Constitutional and general: No acute distress, looks biologic age Head and face: No puffiness, atraumatic Eyes: No scleral icterus, extraocular movements normal Neck: Supple, no JVD Musculoskeletal: No acute joint swelling, no bony abnormalities Skin/dermatologic/integument: No rash, no purpura Hematologic and lymphatic: pallor +, no petechia Gastrointestinal/abdomen: Nondistended, soft, nonacute Neurologic: Cranial nerves intact, nonfocal Psychiatry: Awake, alert, pleasant, communicative Cardiovascular: Heart rhythm regular, no rub, no murmur, no gallop Respiratory: Chest movements equal, +use of accessory muscles, actually no significant wheezing when seen Extremities: No edema, no cyanosis Results & Data Results & Data ([facility]) Vital Signs (Past 12 Hours) Vital Signs Temp Pulse Pulse Resp BP BP Pulse Ox 05/12/22 08:15 05/12/22 16:38 37.1 C 95 H 18 109/76 94 05/12/22 14:07 93 H 05/12/22 11:04 36.4 C L 98 H 17 140/76 92 05/12/22 08:02 106 H 18 96 05/12/22 06:45 96 H O2 Del Method 05/12/22 08:15 Room Air 05/12/22 16:38 Room Air 05/12/22 14:07 05/12/22 11:04 Room Air 05/12/22 08:02 Room Air 05/12/22 06:45 Laboratory Results Laboratory Results - last 24 hr 05/11/22 05/12/22 05/12/22 20:07 07:18 08:28 WBC 13.28 H RBC 4.76 Hgb 14.5 Hct 46.3 H MCV 97.3 MCH 30.5 MCHC 31.3 L RDW Std Deviation 50.4 H RDW Coeff of Majo 14.0 Plt Count 233 MPV 11.5 Immature Gran % (Auto) 0.8 Neut % (Auto) 55.2 Lymph % (Auto) 38.3 Sanders % (Auto) 5.3 Eos % (Auto) 0.2 Baso % (Auto) 0.2 Neut # (Auto) 7.34 H Lymph # (Auto) 5.08 H Sanders # (Auto) 0.71 Eos # (Auto) 0.03 Baso # (Auto) 0.02 Immature Gran # (Auto) 0.10 H RBC Morphology Unremarkable Sodium Potassium Chloride Carbon Dioxide Anion Gap BUN Creatinine Est Cr Clr Drug Dosing Est GFR ( Amer) Est GFR (Non-Af Amer) POC Glucose 134 H 115 H Fasting Glucose Estimat Average Glucose Hemoglobin A1c Calcium Magnesium Total Bilirubin AST ALT Alkaline Phosphatase Total Protein Albumin Globulin Albumin/Globulin Ratio 05/12/22 05/12/22 05/12/22 08:28 08:28 11:17 WBC RBC Hgb Hct MCV MCH MCHC RDW Std Deviation RDW Coeff of Majo Plt Count MPV Immature Gran % (Auto) Neut % (Auto) Lymph % (Auto) Sanders % (Auto) Eos % (Auto) Baso % (Auto) Neut # (Auto) Lymph # (Auto) Sanders # (Auto) Eos # (Auto) Baso # (Auto) Immature Gran # (Auto) RBC Morphology Sodium 140 Potassium 4.0 Chloride 107 Carbon Dioxide 26 Anion Gap 7 BUN 36 H Creatinine 0.99 Est Cr Clr Drug Dosing 79.4 Est GFR ( Amer) 73.3 Est GFR (Non-Af Amer) 63.3 POC Glucose 89 Fasting Glucose 112 H Estimat Average Glucose 169 Hemoglobin A1c 7.5 H Calcium 8.0 L Magnesium 2.4 Total Bilirubin 0.3 AST 11 L ALT 13 Alkaline Phosphatase 82 Total Protein 6.3 Albumin 3.3 L Globulin 3.0 Albumin/Globulin Ratio 1.1 05/12/22 16:09 WBC RBC Hgb Hct MCV MCH MCHC RDW Std Deviation RDW Coeff of Majo Plt Count MPV Immature Gran % (Auto) Neut % (Auto) Lymph % (Auto) Sanders % (Auto) Eos % (Auto) Baso % (Auto) Neut # (Auto) Lymph # (Auto) Sanders # (Auto) Eos # (Auto) Baso # (Auto) Immature Gran # (Auto) RBC Morphology Sodium Potassium Chloride Carbon Dioxide Anion Gap BUN Creatinine Est Cr Clr Drug Dosing Est GFR ( Amer) Est GFR (Non-Af Amer) POC Glucose 247 H Fasting Glucose Estimat Average Glucose Hemoglobin A1c Calcium Magnesium Total Bilirubin AST ALT Alkaline Phosphatase Total Protein Albumin Globulin Albumin/Globulin Ratio PG Care Time/CCT Total # of Minutes Spent Total Time Spent with Patient: Total time spent is greater than 50% in coordination of care (as documented) at patient's floor/unit and/or counseling patient: Coding Level of Care Code 61684 Subseq Hosp Care Lvl 2 Diagnoses Acute chest pain R07.9 Asthma J45.909 GERD (gastroesophageal reflux disease) K21.9 Osteoarthritis M19.90 Combined systolic and diastolic congestive heart failure I50.40 DMII (diabetes mellitus, type 2) E11.9 History of pulmonary embolism Z86.711 Leucocytosis D72.829
[2022-05-12] MEDS: MoRPHine SULFATE 4 MG/ML 1 ML CARP\\VIAL IV PRN (20:09)
[2022-05-12] MEDS: MONTELUKAST SODIUM 10 MG TABLET PO SCH (21:30)
[2022-05-12] MEDS: RIVAROXABAN 20 MG TAB PO SCH (21:31)
[2022-05-12] MEDS: PANTOprazole 40 MG TAB PO SCH (21:31)
[2022-05-13] MEDS: ALBUT/IPRATROP 3MG/0.5MG NEB 3 ML VIAL NEB PRN (07:10)
[2022-05-13] MEDS: FORMOTEROL 20 MCG/2 ML VIAL INH SCH (07:10)
[2022-05-13] MEDS: BUDESONIDE 0.5 MG/2 ML VIAL (PULMICORT) NEB SCH (07:10)
[2022-05-13 08:02] LABS: Basophils # (auto) 0.02 K/uL (0-0.2); Basophils % (auto) 0.1 %; Eosinophils # (auto) 0.08 K/uL (0-0.50); Eosinophils % (auto) 0.5 %; Hematocrit (blood only) 41.5 % (34.1-44.9); Hemoglobin 13.2 g/dl (12.0-16.0); Immature Granulocytes # (auto) 0.11 K/uL (0.00-0.02); Immature Granulocytes % (auto) 0.7 %; Lymphocytes # (auto) 4.19 K/uL (1.2-3.4); Lymphocytes % (auto) 28.4 %; Mean Corpuscular Hemoglobin 30.5 pg (25.0-34.0); Mean Corpuscular Hgb Conc 31.8 g/dL (32.0-36.0); Mean Corpuscular Volume 95.8 fL (80.0-100.0); Mean Platelet Volume 11.5 fL (9.4-12.3); Monocytes # (auto) 1.05 K/uL (0.24-0.82); Monocytes % (auto) 7.1 %; Neutrophils # (auto) 9.31 K/uL (1.4-6.5); Neutrophils % (auto) 63.2 %; Platelet Count 216 K/uL (130-400); RDW Coefficient of Variation 13.9 % (11.5-14.5); RDW Standard Deviation 49.6 fL (36.4-46.3); Red Blood Count 4.33 M/uL (3.93-5.22); White Blood Count 14.76 K/ul (4.8-10.8)
[2022-05-13 08:22] LABS: Albumin Globulin Ratio 1.1 (0.9-2); Albumin Level 3.1 gm/dl (3.4-5.0); Bilirubin,Total 0.2 mg/dl (0.2-1.0); Calcium 7.9 mg/dl (8.5-10.1); Creatinine Clr Calc Pharmacy 103.2 ml/min; Est GFR (African American) 100.9 ml/min; Est GFR (Non-African American) 87.1 ml/min; Globulin 2.8 gm/dl (2.5-4.0); Magnesium 2.6 mg/dl (1.7-2.4); Potassium 4.3 mmol/L (3.5-5.1); Total Protein 5.9 gm/dl (6.0-8.3)
[2022-05-13] MEDS: INSULIN ASPART PER UNIT SC SCH ×2 (08:25→12:21)
[2022-05-13] MEDS: LOSARTAN POTASSIUM 25 MG TAB PO SCH (08:26)
[2022-05-13] MEDS: FUROSEMIDE 20 MG TAB PO SCH (08:26)
[2022-05-13] MEDS: guaiFENesin 600 MG TABCR PO SCH (08:26)
[2022-05-13] MEDS: METOPROLOL SUCC 25MG EXT REL TAB PO SCH (08:26)
[2022-05-13] MEDS: PANTOprazole 40 MG TAB PO SCH (08:26)
[2022-05-13] MEDS: DOCUSATE SODIUM/SENNA 50/8.6MG TAB PO SCH (08:27)
[2022-05-13] MEDS: NICOTINE 21 MG/24 HR TDSY TD SCH (08:28)
[2022-05-13] MEDS: LIDOCAINE 5% 1 PATCH TD SCH (08:28)
[2022-05-13] MEDS: INSULIN HUMAN NPH SC SCH (08:29)
[2022-05-13] MEDS: UMECLIDINIUM BROMIDE 62.5MCG/BLISTER 7 PUFFS/INHALER INH SCH (08:29)
--- NOTE | 2022-05-13 08:37 | Pharmacy Report ---
Pharmacy Glycemic Short Note 2 - Date of Service May 13, 2022 - Glycemic Short BSG Results (Last 24 hours): 05/12/22 05/12/22 05/12/22 08:28 11:17 16:09 POC Glucose 89 247 H Fasting Glucose 112 H 05/12/22 05/13/22 05/13/22 20:03 03:23 06:22 POC Glucose 244 H 94 Fasting Glucose 79 05/13/22 07:22 POC Glucose 97 Fasting Glucose OUTPATIENT ANTIDIABETIC REGIMEN: * metformin 500 mg PO qPM HbA1c: 7.8% (11/11/21) ASSESSMENT: 05/13/22: * BSGs trended up throughout the day yesterday * Received 68 units of insulin (30 units of NPH and 38 units of prandial/correctional Novolog) * Steroids reduced today from prednisone 40 mg to 30 mg * Will maintain current NPH dose (~0.3 unit/kg) and tighten Novolog 05/12/22: * BSGs trended down nicely following 344 mg/dL at mid-morning * Received 78 units of insulin (40 units of Lantus and 38 units of prandial/correctional Novolog) * Steroids changed to prednisone 40 mg PO daily today * Will switch from Lantus to NPH to mimic PK of steroid * Will be somewhat conservative given BSG downtrend yesterday * Fasting BSG of 115 mg/dL this morning 05/11/22: * HEMANT is a 56 year-old female admitted to [facility] on 05/06/22 with asthma exacerbation * Pharmacy consulted for glycemic management this morning (05/11/22) due to persistent hyperglycemia (steroid-induced) * Currently ordered methylprednisolone 40 mg IV q8h, will adjust insulin as steroids are tapered * Methylprednisolone discontinued today, starting prednisone 40 mg PO daily on 05/12/22 * Will increase basal insulin today to ~0.4 unit/kg to cover steroids and tighten Novolog to weight-based stress of 3 dosing * ~1050 patient complained of 10/10 chest pain, heart alert called and 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
[2022-05-13] MEDS: MoRPHine SULFATE 4 MG/ML 1 ML CARP\\VIAL IV PRN (08:38)
[2022-05-13] MEDS ORDERED: predniSONE 10 MG TABLET PO SCH (09:00)
[2022-05-13 13:45] LABS: iSTAT Arterial Blood Gas HCO3 25 meg/L (19-24); iSTAT Arterial Blood Gas pCO2 38 mmHg (35-46); iSTAT Arterial Blood Gas pH 7.42 (7.35-7.45); iSTAT Arterial Blood Gas pO2 67 mmHg (80-95); iSTAT Carbon Dioxide 26 mmol/L (24-31)
--- NOTE | 2022-05-13 14:10 | Cardiology Progress Note ---
Date of Service May 13, 2022 Assessment & Plan (1) Combined systolic and diastolic congestive heart failure: Plan: -well compensated at this time. -normal PCWP at time of cath. -continue daily weights and sliding-scale diuretics. -mild left ventricular dysfunction noted on echocardiogram. -mitral regurgitation is severe. -continue metoprolol succinate and losartan. (2) Mitral regurgitation: Plan: -severe mitral regurgitation with evidence of new, mild, left ventricular dysfunction. -needs referral to CT surgery for mitral valve repair/replacement. (3) Hx of coronary artery disease: Plan: -normal coronary arteries on catheterization. -LCx stents are patent. -continue medical management and risk factor reduction. (4) Pulmonary embolism and infarction: Plan: -occurred in October 2021. -continue Xarelto. Admission and Anticipated Discharge Date Admission Date: May 06, 2022 Subjective The patient is resting comfortably in bed without complaints of chest pain or dyspnea. We have discussed the need for evaluation with Cardiothoracic surgery to consider valve replacement. Her son was present via telephone. All of her questions were answered. Physical Exam Physical Exam: In general this is an obese black female lying supine in bed without complaints. HEENT exam is negative. Neck is supple with full carotid upstrokes. No carotid bruits. Jugular is pressure is flat at 90. There is no thyromegaly. Cardiovascular exam reveals a regular rhythm with normal S1 and S2. Heart sounds are distant. No obvious murmurs. Lungs are clear without r ales, rhonchi, wheezes. Abdomen is obese without bruits. Extremities reveal intact radial artery pulses bilaterally. There is no peripheral edema. Results & Data ([facility]) Vital Signs (Past 12 Hours) Vital Signs Temp Pulse Pulse Resp BP BP Pulse Ox 05/13/22 11:44 37 C 95 H 18 112/70 98 05/13/22 09:11 88 05/13/22 09:11 05/13/22 07:34 36.3 C L 96 H 18 107/71 99 05/13/22 07:12 96 H 18 97 05/13/22 03:10 89 16 98 05/13/22 03:00 36.6 C 90 20 125/79 98 O2 Del Method FiO2 05/13/22 11:44 Room Air 05/13/22 09:11 05/13/22 09:11 Room Air 05/13/22 07:34 Nebulizer 05/13/22 07:12 Room Air 05/13/22 03:10 21 05/13/22 03:00 Room Air Diagnostic Findings case monitor notes normal sinus rhythm with occasional PACs. PG Care Time/CCT Total # of Minutes Spent Total Time Spent with Patient: Total time spent is greater than 50% in coordination of care (as documented) at patient's floor/unit and/or counseling patient: Coding Level of Care Code 37328 Subseq Hosp Care Lvl 3 Diagnoses Combined systolic and diastolic congestive heart failure I50.40 Mitral regurgitation I34.0 Hx of coronary artery disease Z86.79 Pulmonary embolism and infarction I26.99
--- NOTE | 2022-05-13 15:56 | Discharge Summary ---
Date of Service May 13, 2022 Admission HPI Per Admitting Provider 56 YOF wtih past medical history of: Obesity, Asthma, PE (on Xarelto), chronic back pain, Anxiety, Depression, DM II, SMITA HFpEF, COVID 10/11, . Patient comes to the EMD today for complaints of dyspnea and thoracic chest wall pain/tightness. The patient states that this has been ongoing for the past 2 days. She originally felt more short of breath and using her nebulizers 3 times per day as well as waking up last night to use her inhaler 4 times in the night. This progressed into the morning and she felt her overall chest started to become tight and unable to take a deep breath in. She called EMS and was given 125mg solumederol IV, she was given 2 hour long nebulizers as well as 2 GM magnesium and placed on BiPAP. Patient had CXR done CTA of the chest performed, routine labs to include HScTNI and ECG. She was also given Fentanyl for her chest wall and back pain, and 20mg IV Lasix. Patient states that she does not smoke, but is around smoke at home, although most smoking is done outside. She endorses that she has not missed any doses of her medications specifically her Xarelto. She does not weigh herself daily so is unsure if she is gaining any fluid. She feels that the therapy that helped her the most was when they placed the biPAP mask on her. She had a trial of it off and returned to being dyspneic. Currently she is on 09/27 with FIo2 30% and is with RR 20s and SPO2 100% with VT 500s. She is very tender to her chest wall on the front, back, and sides. Appears this has been ongoing with review to her PCP notes as well as pain in her jaw. Her HScTNI was negative as well as her ECG. Will obtain VBG at this time to evaluate her CO2- she is oxygenating well. Her WBC count is without leukocytosis or infective process noted with imaging. Her EOS however are increased to 1.1% and usually she is less. Will give Montelukast 10mg PO now and then daily. Will give one Pulmicort nebulizer as she did not take her evening medications and likley unable to get inspiratory effort in with INH. Continue with scheduled nebulizers, solumederol 40mg IV q8, her Dulera will be changed to equivalnet of BREO. She has voided 3x since Lasix administration. Will admit to PCU to follow her respiratory status and CO2. Multifocal effects on her pulmonary status at this time, will continue with multi-tiered approach as she has evidence of wheezing as well as some volume overload and pleural effusion. COVID/FLU/RSV: NEGATIVE Principal Diagnosis Asthma exacerbation with COPD Discharge Exam No acute distress Chest clear Vital Signs Temp Pulse Pulse Resp BP BP Pulse Ox 05/13/22 15:24 37.1 C 100 H 18 143/77 H 94 05/13/22 11:44 37 C 95 H 18 112/70 98 05/13/22 09:11 88 05/13/22 09:11 05/13/22 07:34 36.3 C L 96 H 18 107/71 99 05/13/22 07:12 96 H 18 97 05/13/22 03:10 89 16 98 05/13/22 03:00 36.6 C 90 20 125/79 98 05/12/22 23:37 107 H 05/12/22 22:45 109 H 24 97 05/12/22 22:25 36.8 C 99 H 16 119/77 96 05/12/22 21:43 05/12/22 19:47 101 H 20 98 05/12/22 19:00 36.8 C 60 16 111/75 97 05/12/22 16:38 37.1 C 95 H 18 109/76 94 O2 Del Method FiO2 05/13/22 15:24 Room Air 05/13/22 11:44 Room Air 05/13/22 09:11 05/13/22 09:11 Room Air 05/13/22 07:34 Nebulizer 05/13/22 07:12 Room Air 05/13/22 03:10 21 05/13/22 03:00 Room Air 05/12/22 23:37 05/12/22 22:45 21 05/12/22 22:25 Room Air 05/12/22 21:43 Room Air, CPAP 05/12/22 19:47 Room Air 05/12/22 19:00 Room Air 05/12/22 16:38 Room Air Intake and Output 05/13/22 05/13/22 05/13/22 06:59 14:59 22:59 Intake Total 200 / 950 Balance 200 / 950 Intake: Oral 200 / 950 Other: Weight 111.2 kg Weight Measurement Method Built in [facility] Discharge Data Allergies Allergy/AdvReac Type Severity Reaction Status Date / Time No Known Allergies Allergy Verified 05/06/22 18:21 Consultations 05/06/22 19:55 ED Decision to Admit Stat 05/08/22 15:22 Consult Pulmonology Routine 05/10/22 16:05 Consult Cardiology Routine Procedures Performed Operation Date: 05/11/22 11:30 Actual Procedures p Cath, Right and Left Heart - Rambo Tafoya MD s Ultrasound Vascular Access - Rambo Tafoya MD s Cineradiography w/Routine Exam - Rambo Tafoya MD Ordered Studies 05/06/22 17:12 CT angio chest PE protocol Stat 05/11/22 11:28 CL Cath Imgs for PACS use only Stat 05/11/22 18:05 CTA chest dissec wo/w con [CT angio chest dissec wo/w con] Stat Hospital Course (1) Acute chest pain: Yesterday chest pain, work-up of negative, empirically PPI increased to twice daily; consider GI consult as outpatient, particularly if recurs; defer to PCP (2) Asthma: Exacerbation along with COPD original presentationimproved and wants to go home DC on LAMA; already on ICS/LABA Allergy and pulmonology follow-up; prednisone taper (3) GERD (gastroesophageal reflux disease): As above (4) Osteoarthritis: Bilateral knee and back - previously received injections with Durolane (5) Combined systolic and diastolic congestive heart failure: Now LV systolic dysfunction, severe MR -added ARB, added metoprolol succinate; MR will have to be addressed by CT surgery consult, as outpatient per discussion with cardiology (6) DMII (diabetes mellitus, type 2): Sugars better, steroid being tapered; discharged on NovoLog sliding scale; note A1c 7.5 on admission (7) History of pulmonary embolism: CTA chest neg here for PE continue Xarelto (8) Leucocytosis: Likely steroid relatedfollow Total Time Total Time Spent Total Time Spent (In Minutes): 45 Discharge Plan Discharge Items Patient Disposition: Home - Self-Care Reason For Visit: ASTHMA EXACERBATION, CHEST WALL PAIN Discharge Diagnosis: Asthma exacerbation Activity: As commented below Activity Comment: as tolerated Non-emergency contact: Primary Care Provider and Procurement Buyer Call non-emergency contact if: your symptoms worsen Follow-up/Referrals: Dwayne Guy MD [Physician] - (Severe mitral regurg, seen in house) Gallo Slade MD [Physician] - (2 weeks -seen in house) Nita Moon PA-C [Physician Emergency Room Doctor] - (CHF, post hospitalization follow-up) James Hendrix DO [Primary Care Provider] - Kita Soni MD [Physician] - (Asthma) Dwayne Sanches MD [Outside Practitioners] - (Severe MR) Diet: Carb Consistent or DM2 Addtl Attending Provider Instructions: Check your blood sugar 4 times a day before meals and bedtime and insulin as separately prescribed according to return scale as explained by me; take the record to your primary physician Pending Studies at Discharge: No Stand-Alone Forms: My [facility] [employer], Smoking Cessation Medications and DC Order Prescriptions: New benzonatate 100 mg Capsule 200 mg PO TID PRN (Reason: cough) Qty: 180 0RF Incruse Ellipta 62.5 mcg/actuation Blister With Device 1 inh inhalation QAM Qty: 30 0RF losartan 25 mg Tablet 25 mg PO QAM Qty: 60 0RF metoprolol succinate 25 mg Tablet Extended Release 24 Hr 25 mg PO QAM Qty: 60 0RF prednisone 10 mg Tablet 30 mg PO DAILY Qty: 24 0RF Rx Instructions: Take 3 tablets daily for 4 days, 2 tablets daily for 4 days, 1 tablet daily for 4 days and then stop cyclobenzaprine 5 mg Tablet 5 mg PO TID PRN (Reason: muscle spasm) Qty: 30 0RF pantoprazole 40 mg Tablet,Delayed Release (Dr/Ec) 40 mg PO BID Qty: 60 0RF Rx Instructions: New dose of this medication Continued cyclobenzaprine 5 mg tablet 5 mg PO TID PRN (Reason: muscle spasm) Qty: 30 0RF diclofenac sodium 1 % gel 2 g TOPICAL QID PRN (Reason: Pain) Qty: 100 3RF Proctofoam HC 1-1 % foam 1 applic VT BID PRN (Reason: hemorrhoids) Qty: 10 0RF albuterol sulfate 90 mcg/actuation HFA aerosol inhaler 2 puff INHALATION Q6 PRN (Reason: Shortness Of Breath Or Wheezing) Qty: 18 5RF furosemide 20 mg tablet 20 mg PO DAILY Qty: 90 3RF Atrovent HFA 17 mcg/actuation HFA aerosol inhaler 2 puff INHALATION TID Qty: 12.9 5RF metformin 500 mg tablet extended release 24 hr 500 mg PO QPM Qty: 90 3RF Dulera 200-5 mcg/actuation HFA aerosol inhaler 2 puff INHALATION BID Qty: 13 5RF nicotine [Nicoderm CQ] 21 mg/24 hr patch 24 hour 21 mg transdermal QAM Qty: 30 0RF ipratropium-albuterol 0.5 mg-3 mg(2.5 mg base)/3 mL solution for nebulization 3 ml NEB Q6H PRN (Reason: wheezing/SOB/cough) Xarelto 20 mg tablet 20 mg PO QPM Rx Instructions: must administer with evening meal Discontinued benzonatate 100 mg capsule 100 mg PO Q8H PRN (Reason: cough) Qty: 30 0RF nitroglycerin [Nitrostat] 0.4 mg tablet, sublingual 0.4 mg sublingual UD PRN (Reason: Chest Pain) Qty: 25 3RF lisinopril 10 mg tablet 10 mg PO DAILY Qty: 90 1RF pantoprazole [Protonix] 40 mg tablet,delayed release (DR/EC) 40 mg PO DAILY Qty: 90 1RF Discharge Orders: Discharge Order (Routine); Ordered 05/13/22 Ordered By: Tamera Caruso Admission Data Admit Date/Time: 05/06/22 20:52 Attending Provider: Tamera Caruso Admit Provider: Eve Livingston Primary Care Provider: James Hendrix Other Providers: Annemarie Oakes ; Eve Livingston ; Bobo Zarate ; Dwayne Guy Coding Level of Care Code D/C DAY MANAGEMENT >30 MINS Diagnoses Acute chest pain R07.9 Asthma J45.909 GERD (gastroesophageal reflux disease) K21.9 Osteoarthritis M19.90 Combined systolic and diastolic congestive heart failure I50.40 DMII (diabetes mellitus, type 2) E11.9 History of pulmonary embolism Z86.711 Leucocytosis D72.829
== END 2022-05-13 17:57 | disposition home or self-care (01) | DRG 287 ==
LOC: ED 16:09 → 2S 20:52 → SUATTDRO 20:52 → 2S 23:49 → 2N 05-10 18:10 → 2S 05-10 18:11

== ENCOUNTER 2022-07-25 21:19 | Observation (INO) ==
[2022-07-25 23:03] LABS: Basophils # (auto) 0.03 K/uL (0-0.2); Basophils % (auto) 0.4 %; Eosinophils # (auto) 0.08 K/uL (0-0.50); Hematocrit (blood only) 39.7 % (34.1-44.9); Hemoglobin 12.6 g/dl (12.0-16.0); Immature Granulocytes # (auto) 0.02 K/uL (0.00-0.02); Immature Granulocytes % (auto) 0.3 %; Lymphocytes # (auto) 3.31 K/uL (1.2-3.4); Lymphocytes % (auto) 42.1 %; Mean Corpuscular Hemoglobin 30.6 pg (25.0-34.0); Mean Corpuscular Hgb Conc 31.7 g/dL (32.0-36.0); Mean Corpuscular Volume 96.4 fL (80.0-100.0); Mean Platelet Volume 11.6 fL (9.4-12.3); Monocytes # (auto) 0.52 K/uL (0.24-0.82); Monocytes % (auto) 6.6 %; Neutrophils # (auto) 3.91 K/uL (1.4-6.5); Neutrophils % (auto) 49.6 %; Platelet Count 192 K/uL (130-400); RDW Coefficient of Variation 13.5 % (11.5-14.5); RDW Standard Deviation 48.1 fL (36.4-46.3); Red Blood Count 4.12 M/uL (3.93-5.22); White Blood Count 7.87 K/ul (4.8-10.8)
[2022-07-25 23:43] LABS: Alanine Aminotransferase 8 U/L (7-52); Albumin Globulin Ratio 1.5 (0.9-2); Albumin Level 3.6 gm/dl (3.4-5.0); Alkaline Phosphatase 95 U/L (34-104); Anion Gap 8 (3-11); Aspartate Aminotransferase 13 U/L (13-39); BUN Creatinine Ratio 16.7 (10-20); Bilirubin,Total 0.2 mg/dl (0.2-1.0); Blood Urea Nitrogen 14 mg/dl (6-23); Carbon Dioxide 22 mmol/L (21-32); Chloride 108 mmol/L (98-107); Est GFR (African American) 89.4 ml/min; Est GFR (Non-African American) 77.2 ml/min; Globulin 2.4 gm/dl (2.5-4.0); Glucose 302 mg/dl (70-99(Fasting)); Lipase 38 U/L (11-82); Potassium 4.2 mmol/L (3.5-5.1); Sodium 138 mmol/L (136-145); Troponin I High Sensitivity 17.2 pg/ml (0-14)
[2022-07-25] MEDS ORDERED: NovoLIN-R INSULIN PER UNIT CHARGE SC STA (23:57)
[2022-07-25] MEDS ORDERED: ALBUTEROL 0.083% NEBU SOLN 3 ML VIAL NEB STA (23:57)
[2022-07-25] MEDS ORDERED: MoRPHine SULFATE 4 MG/ML 1 ML CARP\\VIAL IV STA (23:57)
[2022-07-25] MEDS ORDERED: NITROGLYCERIN 2% OINTMENT 30GM TUBE EXT STA (23:58)
--- NOTE | 2022-07-26 00:48 | Emergency Department Note ---
History of Present Illness General Chief complaint: Chest Pain Stated complaint: chest pain Time Seen by Provider: 07/25/22 23:24 Source: patient Mode of arrival: ambulatory Limitations: no limitations History of Present Illness Provider complaint: chest pain Onset (ago): hour(s) Maximum Pain Intensity: 7 Associated symptoms: + chest pain and + shortness of breath; no diaphoresis, no fever/chills, no loss of appetite or no nausea/vomiting Treatments prior to arrival: aspirin and other This is a 56-year-old female presents emergency department complaining of chest pain. Patient states she was seated this evening when she began having central chest pain wrapping around bilaterally into her back. She states she also has some accompanying discomfort in her left shoulder. No neck or jaw pain. She states she was slightly short of breath but denies any diaphoresis, dizziness, nausea or vomiting. Patient states she does have a history of asthma and does feel as though her asthma is worse also. She states she took 2 nitro at home with mild relief his pain improved to a 6 out of 10. She also took 4 baby asp irin in route from EMS. No other treatment prior to arrival. Patient states this is similar to prior episodes of pain she has had. She states she has 2 coronary artery stents and follows with Dr. Guy of cardiology as well as Elvira Santana PA-C. She states they have been monitoring her valve states she has bad heart valves but does not know which one. She states she is scheduled for a valve repair later this month at [facility] in [place]. She denies any recent change in medications, fevers, chills, URI symptoms, or leg swelling. Home Medications Medication Instructions Recorded Confirmed Type nicotine 21 mg/24 hr daily 21 mg transdermal QAM #30 ea 01/26/22 06/30/22 Rx transdermal patch (Nicoderm CQ) albuterol sulfate 90 mcg/actuation 2 puff inhalation Q6 PRN Shortness 05/03/22 06/30/22 Rx aerosol inhaler Of Breath Or Wheezing #18 grams ipratropium bromide 17 2 puff inhalation TID #12.9 grams 05/03/22 06/30/22 Rx mcg/actuation HFA aerosol inhaler (Atrovent HFA) ipratropium 0.5 mg-albuterol 3 mg 3 ml NEB Q6H PRN wheezing/SOB/cough 05/06/22 06/30/22 History (2.5 mg base)/3 mL nebulization soln benzonatate 100 mg capsule 200 mg PO TID PRN cough #180 caps 05/13/22 06/30/22 Rx metformin 750 mg tablet,extended 750 mg PO BID #60 tabs 05/13/22 06/30/22 Rx release 24 hr pantoprazole 40 mg tablet,delayed 40 mg PO BID #60 tabs 05/13/22 06/30/22 Rx release umeclidinium 62.5 mcg/actuation 1 inh inhalation QAM #30 ea 05/13/22 06/30/22 Rx blister powder for inhalation (Incruse Ellipta) nitroglycerin 0.4 mg sublingual 0.4 mg sublingual Q5M PRN Chest 05/16/22 06/30/22 History tablet Pain arformoterol 15 mcg/2 mL solution 2 ml inhalation BID #120 mL 05/24/22 06/30/22 Rx for nebulization (Brovana) budesonide 0.5 mg/2 mL suspension 0.5 mg (2 mL) inhalation BID #60 mL 05/24/22 06/30/22 Rx for nebulization furosemide 20 mg tablet 20 mg PO QAM 05/24/22 06/30/22 History linaclotide 145 mcg capsule 145 mcg PO QAM 05/24/22 06/30/22 History (Linzess) clotrimazole 10 mg day 10 mg mucous membrane 5XD #35 tabs 06/16/22 06/30/22 Rx acetaminophen 300 mg-codeine 30 mg 1 tab PO Q8H PRN pain #3 tabs 06/18/22 06/30/22 Rx tablet rivaroxaban 20 mg tablet (Xarelto) 20 mg PO QPM #90 tabs 07/07/22 Rx cyclobenzaprine 5 mg tablet 5 mg PO TID PRN muscle spasm #30 07/18/22 Rx tabs diclofenac sodium 1 % topical gel 2 g topical QID PRN Pain #100 grams 07/18/22 Rx hydrocortisone 1 %-pramoxine 1 % 1 applic NM BID PRN hemorrhoids 07/18/22 Rx rectal foam (Proctofoam HC) #10 grams losartan 25 mg tablet 25 mg PO QAM #60 tabs 09/26/22 Rx metoprolol succinate 25 mg 25 mg PO QAM #60 tabs 07/18/22 Rx tablet,extended release 24 hr Allergies Allergy/AdvReac Type Severity Reaction Status Date / Time No Known Allergies Allergy Verified 06/30/22 13:08 Past Med/Surg History Medical History Acute chest pain Asthma exacerbation in COPD Asthma-COPD overlap syndrome Chest pain Chronic diastolic congestive heart failure Chronic low back pain Degeneration of cervical intervertebral disc Diabetes mellitus, type 2 oral medication Dyspnea on exertion so severe pt is wheelchair bound (per [facility] record) External hemorrhoids GERD (gastroesophageal reflux disease) Hemiplegic migraine History of COVID-19 diagnosed 2yrs ago---mild symptoms, no symptoms now History of pulmonary embolism on xarelto Hoarseness of voice Mitral valve insufficiency Obesity SMITA on CPAP Urinary incontinence Vertebral artery stenosis Vitamin D deficiency Surgical History Facial fracture (2014) WITH RECONSTRUCTION History of bilateral tubal ligation History of cardiac cath X2 STENTS - (~2010, IN [place], [place]). NO STENTS - ([facility] @ ~2014) No stents ([facility] 05/11/2022) - Follows Nita Moon [place] [facility] [place] of colonoscopy History of esophagogastroduodenoscopy (EGD) History of heart artery stent X2 STENTS (2010) UNSURE OF KIND. NO STENT CARDS PER PT. History of hemorrhoidectomy (~2017) @ [facility] History of mandibular surgery History of transesophageal echocardiography (GEORGETTE) performed 06/21/22 @ [facility]---per report pt has severe mitral valve insufficiency S/P left knee arthroscopy S/p tibial fracture open treatment of Fx with plate/screws, Left leg Status post right foot surgery Family History Mother Breast cancer, Onset Age: 64 Type 2 diabetes mellitus Father Diabetes Coronary heart disease Type 2 diabetes mellitus Myocardial infarction, Onset Age: 52 Family/Other Hypertension sibling Denies family history of Ovarian cancer Social History Smoking Status: Current every day smoker Tobacco Type: Cigarettes Years Smoked: 40; Cigarettes Per Day: 1 pk/day; Second Hand Exposure: No; Hx Alcohol Use: Yes Alcohol type: beer Hx Substance Use: No Preferred Language: Telugu Communication Ability: Effective Visual Impairment: No Limitations Operational Review Sergeant Required: No Beliefs That Will Affect Care: None marital status: Current Living Situation: Spouse Current Living Situation Comment: home with spouse. How many Children do You have: 5 Feels Safe at Home: Yes Assistive Devices: Cane and Wheelchair Review of Systems A total of 10 systems reviewed and were otherwise negative All systems reviewed & are unremarkable except as noted in HPI & below Physical Exam Vital Signs Vital Signs - 24 hr 07/25/22 21:24 07/25/22 21:30 07/26/22 00:30 Temperature 36.8 C Temperature Source Oral Pulse Rate 103 H 103 H Pulse Rate [Apical] 102 H Respiratory Rate 16 20 26 H Respiratory Effort / Characteristics Non-Labored Spontaneous Respiratory Depth Normal Respiratory Pattern Regular Blood Pressure 146/77 H 146/77 H Blood Pressure [Left Arm] 147/84 H Blood Pressure Mean 100 100 Blood Pressure Mean [Left Arm] 105 Blood Pressure Position Lying Pulse Oximetry 99 98 Oxygen Delivery Method Room Air Sepsis Recent Fever Within 48 Hours No Sepsis New/Unexplained Change in Mental Status N/A Sepsis Action Taken by Nursing No Action Required GENERAL: alert, well appearing, well nourished, no distress, non-toxic EYE EXAM: normal conjunctiva, PERRL and EOM's grossly intact OROPHARYNX: no exudate, no erythema, lips, buccal mucosa, and tongue normal and mucous membranes are moist NECK: supple, no nuchal rigidity, no adenopathy, non-tender LUNGS: Clear to auscultation. Normal chest wall mechanics, no r/r, scattered b/l exp wheeze HEART: no murmurs, S1 normal and S2 normal, no reproducible chest wall tenderness with palpation ABDOMEN: abdomen soft, non-tender, normo-active bowel sounds, no masses, no rebound or guarding. BACK: Back is symmetrical on inspection and there is no deformity, no midline tenderness, no CVA tenderness. SKIN: no rashes and no bruising UPPER EXTREMITIES: upper extremities are grossly normal. FROM, nml pulses b/l. LOWER EXTREMITIES: No pitting edema. FROM, nml pulses b/l. NEURO EXAM: Normal sensorium, cranial nerves II-XII grossly intact, normal speech, no gross weakness of arms, no gross weakness of legs. Gross sensation intact. Course Course 010: Patient states wheezing and breathing are improved. She states her pain is improved also after several medications but not yet completely resolved. Administered Medications Discontinued Medications Acetaminophen (Acetaminophen 325 Mg Tab) 650 mg PO Q4H PRN PRN Reason: pain/fever Stop: 08/25/22 05:00 Last Admin: 07/26/22 07:59 Dose: 650 mg Documented By: ALEJANDRO Albuterol (Albuterol 0.083% Nebu Soln 3 Ml Vial) 2.5 mg NEB NOW STA; Protocol Stop: 07/25/22 23:58 Last Admin: 07/26/22 00:13 Dose: 2.5 mg Documented By: MANUEL Budesonide (Budesonide 0.5 Mg/2 Ml Vial (Pulmicort)) 0.5 mg INH BIDR KARLA Stop: 08/25/22 06:59 Last Admin: 07/26/22 07:30 Dose: 0.5 mg Documented By: IDALMIS Formoterol Fumarate (Formoterol 20 Mcg/2 Ml Vial) 20 mcg INH BIDR KARLA Stop: 08/25/22 06:59 Last Admin: 07/26/22 07:30 Dose: 20 mcg Documented By: IDALMIS Furosemide (Furosemide 20 Mg Tab) 20 mg PO QAM KARLA Stop: 08/25/22 08:59 Last Admin: 07/26/22 08:00 Dose: 20 mg Documented By: ALEJANDRO Sodium Chloride (Nss 1000ml) 1,000 mls @ 100 mls/hr IV .Q10H KARLA Stop: 08/25/22 02:59 Last Infusion: 07/26/22 07:28 Dose: 0 mls/hr Documented By: Admin: 07/26/22 04:48 Dose: 100 mls/hr Documented By: MARIE Acetaminophen (Ofirmev) 1,000 mg in 100 mls @ 400 mls/hr IV NOW STA Stop: 07/26/22 03:05 Last Infusion: 07/26/22 04:45 Dose: 0 mls/hr Documented By: Admin: 07/26/22 04:09 Dose: 400 mls/hr Documented By: OMAR Insulin Aspart (Insulin Aspart Per Unit) 0 units SC ACHS KARLA Stop: 08/25/22 07:29 Last Admin: 07/26/22 13:01 Dose: 5 units Documented By: ALEJANDRO Co-signed By: VICENTE Admin: 07/26/22 09:26 Dose: 6 units Documented By: ALEJANDRO Co-signed By: DIONE Insulin Glargine (Lantus Per Unit Charge) 7 units SQ BID [facility] Stop: 08/25/22 08:59 Last Admin: 07/26/22 09:27 Dose: 7 units Documented By: ALEJANDRO Co-signed By: DIONE Insulin Human Regular (Novolin-R Insulin Per Unit Charge) 6 units SC NOW STA Stop: 07/25/22 23:58 Last Admin: 07/26/22 00:13 Dose: 6 units Documented By: MANUEL Co-signed By: OMAR Insulin Human Regular (Novolin-R Insulin Per Unit Charge) 6 units SC NOW [facility] Stop: 07/26/22 01:49 Last Admin: 07/26/22 01:55 Dose: 6 units Documented By: MANUEL Co-signed By: OMAR Ipratropium [place] (Ipratropium [place] Hfa Inhaler) 2 puffs INH TID [facility] Stop: 08/25/22 08:59 Last Admin: 07/26/22 13:17 Dose: 2 puffs Documented By: Admin: 07/26/22 07:30 Dose: 2 puffs Documented By: IDALMIS Linaclotide (Linaclotide 145 Mcg Capsule) 145 mcg PO QAM [facility] Stop: 08/25/22 08:59 Last Admin: 07/26/22 08:01 Dose: 145 mcg Documented By: ALEJANDRO Losartan Potassium (Losartan Potassium 25 Mg Tab) [facility] Stop: 08/25/22 08:59 Last Admin: 07/26/22 08:01 Dose: 25 mg Documented By: ALEJANDRO Metoprolol Succinate (Metoprolol Succ 25mg Ext Rel Tab) 25 mg PO QAM [facility] Stop: 08/25/22 08:59 Last Admin: 07/26/22 08:01 Dose: 25 mg Documented By: ALEJANDRO Miscellaneous (Remove Nicoderm Patch) 1 each N/A DAILY@0859 [facility] Stop: 08/25/22 08:58 Last Admin: 07/26/22 08:04 Dose: Not Given Documented By: ALEJANDRO Morphine Sulfate (Morphine Sulfate 4 Mg/Ml 1 Ml Carp\Vial) 4 mg IV NOW [facility] Stop: 07/25/22 23:58 Last Admin: 07/26/22 00:13 Dose: 4 mg Documented By: SM Morphine Sulfate (Morphine Sulfate 4 Mg/Ml 1 Ml Carp\Vial) 4 mg IV NOW STA Stop: 07/26/22 01:13 Last Admin: 07/26/22 01:36 Dose: 4 mg Documented By: SM Nicotine (Nicotine 21 Mg/24 Hr Tdsy) 21 mg TD QAM [facility] Stop: 08/25/22 08:59 Last Admin: 07/26/22 08:03 Dose: 21 mg Documented By: OO Nitroglycerin (Nitroglycerin 2% Ointment 30gm Tube) 1 inch EXT NOW STA Stop: 07/25/22 23:59 Last Admin: 07/26/22 00:14 Dose: 1 inch Documented By: MANUEL Pantoprazole Sodium (Pantoprazole 40 Mg Tab) 40 mg PO BID [facility] Stop: 08/25/22 08:59 Last Admin: 07/26/22 08:01 Dose: 40 mg Documented By: OO Umeclidinium [place] (Umeclidinium [place] 62.5mcg/Blister 7 Puffs/Inhaler) 1 [facility] [place] Stop: 08/25/22 08:59 Last Admin: 07/26/22 08:02 Dose: 1 puffs Documented By: OO Medical Decision Making Differential Diagnosis Differential diagnoses includes but is not limited to acute coronary syndrome, myocardial infarction, pericarditis, pulmonary embolus, aortic dissection, pneumonia, pneumothorax, musculoskeletal, shingles, esophageal. Medical Records Attestation: I reviewed the patient's medical records. Home Medications Current Medication List: was personally reviewed by me Laboratory Data Attestation: I reviewed the patient's lab results. Result diagrams: 07/25/22 22:46 07/25/22 22:46 Lab Results 07/25/22 07/25/22 07/26/22 Range/Units 22:46 22:46 00:48 WBC 7.87 (4.8-10.8) K/ul RBC 4.12 (3.93-5.22) M/uL Hgb 12.6 (12.0-16.0) g/dl Hct 39.7 (34.1-44.9) % MCV 96.4 (80.0-100.0) fL MCH 30.6 (25.0-34.0) pg MCHC 31.7 L (32.0-36.0) g/dL RDW Std Deviation 48.1 H (36.4-46.3) fL RDW Coeff of Majo 13.5 (11.5-14.5) % Plt Count 192 (130-400) K/uL MPV 11.6 (9.4-12.3) fL Immature Gran % (Auto) 0.3 % Neut % (Auto) 49.6 % Lymph % (Auto) 42.1 % Perry % (Auto) 6.6 % Eos % (Auto) 1.0 % Baso % (Auto) 0.4 % Neut # (Auto) 3.91 (1.4-6.5) K/uL Lymph # (Auto) 3.31 (1.2-3.4) K/uL Perry # (Auto) 0.52 (0.24-0.82) K/uL Eos # (Auto) 0.08 (0-0.50) K/uL Baso # (Auto) 0.03 (0-0.2) K/uL Immature Gran # (Auto) 0.02 (0.00-0.02) K/uL Sodium 138 (136-145) mmol/L Potassium 4.2 (3.5-5.1) mmol/L Chloride 108 H (98-107) mmol/L Carbon Dioxide 22 (21-32) mmol/L Anion Gap 8 (3-11) BUN 14 (6-23) mg/dl Creatinine 0.84 (0.6-1.2) mg/dl Est Cr Clr Drug Dosing Not Reportable Est GFR ( Amer) 89.4 ml/min Est GFR (Non-Af Amer) 77.2 ml/min BUN/Creatinine Ratio 16.7 (10-20) Glucose 302 H* (70-99(Fasting)) mg/dl POC Glucose 302 H* (70-99) mg/dl Calcium 9.0 (8.5-10.1) mg/dl Magnesium 1.8 (1.7-2.4) mg/dl Total Bilirubin 0.2 (0.2-1.0) mg/dl AST 13 (13-39) U/L ALT 8 (7-52) U/L Alkaline Phosphatase 95 (34-104) U/L Troponin I High Sens 17.2 H D (0-14) pg/ml Total Protein 6.0 (6.0-8.3) gm/dl Albumin 3.6 (3.4-5.0) gm/dl Globulin 2.4 L (2.5-4.0) gm/dl Albumin/Globulin Ratio 1.5 (0.9-2) Lipase 38 (11-82) U/L SARS-CoV-2, RNA, NAAT (NEGATIVE) 07/26/22 07/26/22 07/26/22 Range/Units 01:42 01:45 02:55 WBC (4.8-10.8) K/ul RBC (3.93-5.22) M/uL Hgb (12.0-16.0) g/dl Hct (34.1-44.9) % MCV (80.0-100.0) fL MCH (25.0-34.0) pg MCHC (32.0-36.0) g/dL RDW Std Deviation (36.4-46.3) fL RDW Coeff of Majo (11.5-14.5) % Plt Count (130-400) K/uL MPV (9.4-12.3) fL Immature Gran % (Auto) % Neut % (Auto) % Lymph % (Auto) % Perry % (Auto) % Eos % (Auto) % Baso % (Auto) % Neut # (Auto) (1.4-6.5) K/uL Lymph # (Auto) (1.2-3.4) K/uL Perry # (Auto) (0.24-0.82) K/uL Eos # (Auto) (0-0.50) K/uL Baso # (Auto) (0-0.2) K/uL Immature Gran # (Auto) (0.00-0.02) K/uL Sodium (136-145) mmol/L Potassium (3.5-5.1) mmol/L Chloride (98-107) mmol/L Carbon Dioxide (21-32) mmol/L Anion Gap (3-11) BUN (6-23) mg/dl Creatinine (0.6-1.2) mg/dl Est Cr Clr Drug Dosing Est GFR ( Amer) ml/min Est GFR (Non-Af Amer) ml/min BUN/Creatinine Ratio (10-20) Glucose (70-99(Fasting)) mg/dl POC Glucose 307 H* 222 H (70-99) mg/dl Calcium (8.5-10.1) mg/dl Magnesium (1.7-2.4) mg/dl Total Bilirubin (0.2-1.0) mg/dl AST (13-39) U/L ALT (7-52) U/L Alkaline Phosphatase (34-104) U/L Troponin I High Sens (0-14) pg/ml Total Protein (6.0-8.3) gm/dl Albumin (3.4-5.0) gm/dl Globulin (2.5-4.0) gm/dl Albumin/Globulin Ratio (0.9-2) Lipase (11-82) U/L SARS-CoV-2, RNA, NAAT NEGATIVE (NEGATIVE) Imaging Data My Impression: X-ray: I interpreted the following studies. Chest: A single view study of the chest was reviewed and was negative for focal infiltrate, effusion, pulmonary edema, or wide mediastinum. Mild CM noted. ECG Data Attestation: I personally reviewed and interpreted this ECG as follows: Indication: + chest pain Rate (beats per minute): 102 Rhythm: + sinus tachycardia ECG Intervals/blocks: + Normal QRS and + Normal QT ECG Faxon: + Normal ECG ST segments: + Nonspecific ST abnormalities MDM Narrative An order was placed for continuous cardiac monitoring. The monitor shows a rate of _96__ with _normal sinus_ rhythm. This is a 56-year-old female who presents to the emergency department with concern for chest pain. Patient also noted to have wheezing on exam and does have a history of asthma/COPD and tobacco abuse. Patient was afebrile, had a mild sinus tachycardia was otherwise uncomfortable appearing. She did receive 2 doses of nitro at home as well as 324 mg of aspirin. Patient given Nitropaste here additional morphine added. She was given a nebulizer treatments which she did help with her wheezing. Patient had slowly improving pain with medication. Given extensive cardiac history including prior LA with 2 stents and ongoing monitoring of severe mitral regurg that is being followed at [facility] in [place], case discussed with hospitalist for additional evaluation and management here. No evidence of acute CHF. I do not suspect acute valve failure. Patient is already anticoagulated due to prior history of PE, I do not suspect recurrent PE, dissection, thoracic aneurysm, perforation, or cardiac tamponade. Patient was noted to have hyperglycemia. She was given 2 doses of subcutaneous insulin in order to improve this check of her glucose. No evidence of DKA. Gentle IV fluid rehydration was also added. Impression & Plan Chest pain, Asthma, Tobacco abuse, Hyperglycemia Discharge Plan Visit Data Chief Complaint: Chest Pain Stated Complaint: chest pain ED Provider: Juana Benavidez Discharge Problem: Chest pain, Asthma, Tobacco abuse, Hyperglycemia Patient Disposition: Admitted As Inpatient Discharge Instructions Interventions: ED Discharge Assessment Last Done: 07/26/22 04:14
[2022-07-26] MEDS ORDERED: MoRPHine SULFATE 4 MG/ML 1 ML CARP\\VIAL IV STA (01:12)
[2022-07-26] MEDS ORDERED: NovoLIN-R INSULIN PER UNIT CHARGE SC STA (01:48)
[2022-07-26 02:11] LABS: Magnesium 1.8 mg/dl (1.7-2.4)
[2022-07-26] MEDS ORDERED: ACETAMINOPHEN 1,000 MG/100 ML VIAL IV STA (02:51)
[2022-07-26] MEDS ORDERED: SODIUM CHLORIDE 0.9% 1000ML 1,000 ML IV SCH (03:00)
--- NOTE | 2022-07-26 03:12 | History & Physical Report ---
Date of Service July 26, 2022 Assessment & Plan (1) Chest pain: Plan: 56-year-old female with history of diabetes, hypertension, hyperlipidemia presenting with chest pain that began earlier this evening around 1830. Pain at rest, substernal with radiation to the left neck and shoulder. She has some nonspecific ST changes present on EKG as well as a mildly elevated high- sensitivity troponin at 17.2. Patient has longstanding history of nonischemic chest pain. She had a recent cardiac catheterization performed on 05/11/2022 which showed angiographically normal coronary arteries as well as normal left and right-sided pressures. She has since been referred for mitral valve repair which she is to have done at [place] later this month. Pain is reproducible with compression of the ribs Observation to medical telemetry Trend troponin EKG as needed with chest pain Nitro as needed for pain Morphine as needed for pain Heat as needed (2) Asthma: Plan: Chronic. Stable. Presently without wheeze Continue albuterol as needed Continue arformoterol inhaled twice daily Continue budesonide inhaled twice daily (3) Hypertension: Plan: Chronic. -Continue Losartan -Continue metoprolol -Continue to monitor (4) Diabetes mellitus, type 2: Plan: Chronic. Overall, fairly well controlled. Last hemoglobin A1c = 7.5 on 05/12/2022. Elevated blood sugars today upon arrival which improved with administration of IV insulin.. Lantus 7 units twice daily Insulin sliding scale Goal blood sugar 1 10-1 40 (5) CHF (congestive heart failure): Plan: Chronic. Compensated.No evidence of failure present on exam Continue Lasix 20 mg p.o. every morning (6) Obstructive sleep apnea on CPAP: Plan: Chronic. CPAP nightly as directed (7) GERD (gastroesophageal reflux disease): Plan: Chronic. Stable. Continue Protonix 40 mg p.o. twice daily History of Present Illness Chief Complaint: Chest pain Primary Care Provider: DO Deb Hines is a 56yo female With history of asthma, diastolic CHF, diabetes, GERD, SMITA and obesity presenting with chest pain that started last evening. Patient was resting comfortably on the couch around 1830 when she developed substernal chest pain which radiated to the left breast, neck and shoulder. Also bandlike pain going around her entire body. She had some shortness of breath as well as dizziness during the episode of pain. Patient took 2 nitroglycerin at home with minimal improvement. She was given ASA 324 mg by EMS with additional improvement. Upon arrival to the ER still with very dull chest pain, much improved from prior. Patient has frequent episodes of chest pain. This is similar to her last episod e several months ago. She is to go to [place] later this month for mitral valve replacement due to chronic MR In the ER she had a mildly elevated troponin at 17.2, EKG with no acute ischemic changes. Allergies Allergy/AdvReac Type Severity Reaction Status Date / Time No Known Allergies Allergy Verified 06/30/22 13:08 Home Medications Medication Instructions Recorded Confirmed Type nicotine 21 mg/24 hr daily 21 mg transdermal QAM #30 ea 01/26/22 06/30/22 Rx transdermal patch (Nicoderm CQ) albuterol sulfate 90 mcg/actuation 2 puff inhalation Q6 PRN Shortness 05/03/22 06/30/22 Rx aerosol inhaler Of Breath Or Wheezing #18 grams ipratropium bromide 17 2 puff inhalation TID #12.9 grams 05/03/22 06/30/22 Rx mcg/actuation HFA aerosol inhaler (Atrovent HFA) ipratropium 0.5 mg-albuterol 3 mg 3 ml NEB Q6H PRN wheezing/SOB/cough 05/06/22 06/30/22 History (2.5 mg base)/3 mL nebulization soln benzonatate 100 mg capsule 200 mg PO TID PRN cough #180 caps 05/13/22 06/30/22 Rx metformin 750 mg tablet,extended 750 mg PO BID #60 tabs 05/13/22 06/30/22 Rx release 24 hr pantoprazole 40 mg tablet,delayed 40 mg PO BID #60 tabs 05/13/22 06/30/22 Rx release umeclidinium 62.5 mcg/actuation 1 inh inhalation QAM #30 ea 05/13/22 06/30/22 Rx blister powder for inhalation (Incruse Ellipta) nitroglycerin 0.4 mg sublingual 0.4 mg sublingual Q5M PRN Chest 05/16/22 06/30/22 History tablet Pain arformoterol 15 mcg/2 mL solution 2 ml inhalation BID #120 mL 05/24/22 06/30/22 Rx for nebulization (Brovana) budesonide 0.5 mg/2 mL suspension 0.5 mg (2 mL) inhalation BID #60 mL 05/24/22 06/30/22 Rx for nebulization furosemide 20 mg tablet 20 mg PO QAM 05/24/22 06/30/22 History linaclotide 145 mcg capsule 145 mcg PO QAM 05/24/22 06/30/22 History (Linzess) clotrimazole 10 mg day 10 mg mucous membrane 5XD #35 tabs 06/16/22 06/30/22 Rx acetaminophen 300 mg-codeine 30 mg 1 tab PO Q8H PRN pain #3 tabs 06/18/22 06/30/22 Rx tablet rivaroxaban 20 mg tablet (Xarelto) 20 mg PO QPM #90 tabs 07/07/22 Rx cyclobenzaprine 5 mg tablet 5 mg PO TID PRN muscle spasm #30 07/18/22 Rx tabs diclofenac sodium 1 % topical gel 2 g topical QID PRN Pain #100 grams 07/18/22 Rx hydrocortisone 1 %-pramoxine 1 % 1 applic AR BID PRN hemorrhoids 07/18/22 Rx rectal foam (Proctofoam HC) #10 grams losartan 25 mg tablet 25 mg PO QAM #60 tabs 07/18/22 Rx metoprolol succinate 25 mg 25 mg PO QAM #60 tabs 07/18/22 Rx tablet,extended release 24 hr Past Med/Surg History Medical History Acute chest pain Asthma exacerbation in COPD Asthma-COPD overlap syndrome Chest pain Chronic diastolic congestive heart failure Chronic low back pain Degeneration of cervical intervertebral disc Diabetes mellitus, type 2 oral medication Dyspnea on exertion so severe pt is wheelchair bound (per [employer] record) External hemorrhoids GERD (gastroesophageal reflux disease) Hemiplegic migraine History of COVID-19 diagnosed 2yrs ago---mild symptoms, no symptoms now History of pulmonary embolism on xarelto Hoarseness of voice Mitral valve insufficiency Obesity SMITA on CPAP Urinary incontinence Vertebral artery stenosis Vitamin D deficiency Surgical History Facial fracture (2014) WITH RECONSTRUCTION History of bilateral tubal ligation History of cardiac cath X2 STENTS - (~2010, IN [place], [place]). NO STENTS - ([facility] @ ~2014) No stents ([facility] 05/11/2022) - Follows Nita Moon - [facility] [place] History of colonoscopy History of esophagogastroduodenoscopy (EGD) History of heart artery stent X2 STENTS (2010) UNSURE OF KIND. NO STENT CARDS PER PT. History of hemorrhoidectomy (~2017) @ [facility] History of mandibular surgery History of transesophageal echocardiography (GEORGETTE) performed 06/21/22 @ [facility]---per report pt has severe mitral valve insufficiency S/P left knee arthroscopy S/p tibial fracture open treatment of Fx with plate/screws, Left leg Status post right foot surgery Family History Mother Breast cancer, Onset Age: 64 Type 2 diabetes mellitus Father Diabetes Coronary heart disease Type 2 diabetes mellitus Myocardial infarction, Onset Age: 52 Family/Other Hypertension sibling Denies family history of Ovarian cancer Social History Smoking Status: Current every day smoker Tobacco Type: Cigarettes Years Smoked: 40; Cigarettes Per Day: 1 pk/day; Second Hand Exposure: No; Hx Alcohol Use: No Hx Substance Use: No Preferred Language: Sammarinese Communication Ability: Effective Visual Impairment: No Limitations School Director Required: No Beliefs That Will Affect Care: None marital status: Current Living Situation: Spouse Current Living Situation Comment: home with spouse. How many Children do You have: 5 Feels Safe at Home: Yes Assistive Devices: Cane, CPAP, Glasses, Nebulizer and Wheelchair Review of Systems Review of Systems: All systems reviewed & are unremarkable except as noted in HPI & below Physical Exam Physical Exam: General: patient resting comfortably, NAD, non-toxic in appearance, AA&O x 4 Skin: warm, dry, intact, no rashes or lesions HEENT: NC/AT, PERRL, EOMI, anicteric sclera, conjunctiva without injection, external ear normal to inspection and nontender, nares patent, moist mucus membranes, dentition intact, no oropharyngeal lesions, neck supple, trachea midline, no LAD, no thyromegaly, no JVD Heart: +S1/S2, regular, no m/r/g, Chest pain reproducible with rib compression Lungs: equal air entry bilaterally, no rales/rhonchi/wheezes Abd: +BS, soft, NT/ND, no masses/organomegaly/ascites Ext: warm, 2+ pulses in UE/LE bilaterally, no clubbing/cyanosis or edema Neuro: nonfocal, patient AA&O x 4, speech intact, no facial droop, moving all extremities on command with equal strength 5/5 Results & Data Results & Data ([facility]) Vital Signs (Past 12 Hours) Vital Signs Temp Pulse Pulse Resp BP BP Pulse Ox 07/26/22 02:00 103 H 22 150/82 H 95 07/26/22 00:30 102 H 26 H 147/84 H 07/25/22 21:30 103 H 20 146/77 H 98 07/25/22 21:24 36.8 C 103 H 16 146/77 H 99 O2 Del Method 07/26/22 02:00 Room Air 07/26/22 00:30 07/25/22 21:30 07/25/22 21:24 Room Air Laboratory Results Laboratory Results WBC 7.87 K/ul (4.8-10.8) 07/25/22 22:46 RBC 4.12 M/uL (3.93-5.22) 07/25/22 22:46 Hgb 12.6 g/dl (12.0-16.0) 07/25/22 22:46 Hct 39.7 % (34.1-44.9) 07/25/22 22:46 MCV 96.4 fL (80.0-100.0) 07/25/22 22:46 MCH 30.6 pg (25.0-34.0) 07/25/22 22:46 MCHC 31.7 g/dL (32.0-36.0) L 07/25/22 22:46 RDW Std Deviation 48.1 fL (36.4-46.3) H 07/25/22 22:46 RDW Coeff of Majo 13.5 % (11.5-14.5) 07/25/22 22:46 Plt Count 192 K/uL (130-400) 07/25/22 22:46 MPV 11.6 fL (9.4-12.3) 07/25/22 22:46 Immature Gran % (Auto) 0.3 % 07/25/22 22:46 Neut % (Auto) 49.6 % 07/25/22 22:46 Lymph % (Auto) 42.1 % 07/25/22 22:46 [place] % (Auto) 6.6 % 07/25/22 22:46 Eos % (Auto) 1.0 % 07/25/22 22:46 Baso % (Auto) 0.4 % 07/25/22 22:46 Neut # (Auto) 3.91 K/uL (1.4-6.5) 07/25/22 22:46 Lymph # (Auto) 3.31 K/uL (1.2-3.4) 07/25/22 22:46 [place] # (Auto) 0.52 K/uL (0.24-0.82) 07/25/22 22:46 Eos # (Auto) 0.08 K/uL (0-0.50) 07/25/22 22:46 Baso # (Auto) 0.03 K/uL (0-0.2) 07/25/22 22:46 Immature Gran # (Auto) 0.02 K/uL (0.00-0.02) 07/25/22 22:46 Sodium 138 mmol/L (136-145) 07/25/22 22:46 Potassium 4.2 mmol/L (3.5-5.1) 07/25/22 22:46 Chloride 108 mmol/L (98-107) H 07/25/22 22:46 Carbon Dioxide 22 mmol/L (21-32) 07/25/22 22:46 Anion Gap 8 (3-11) 07/25/22 22:46 BUN 14 mg/dl (6-23) 07/25/22 22:46 Creatinine 0.84 mg/dl (0.6-1.2) 07/25/22 22:46 Est Cr Clr Drug Dosing Not Reportable 07/25/22 22:46 Est GFR ( Amer) 89.4 ml/min 07/25/22 22:46 Est GFR (Non-Af Amer) 77.2 ml/min 07/25/22 22:46 BUN/Creatinine Ratio 16.7 (10-20) 07/25/22 22:46 Glucose 302 mg/dl (70-99(Fasting)) H* 07/25/22 22:46 POC Glucose 222 mg/dl (70-99) H 07/26/22 02:55 Calcium 9.0 mg/dl (8.5-10.1) 07/25/22 22:46 Magnesium 1.8 mg/dl (1.7-2.4) 07/25/22 22:46 Total Bilirubin 0.2 mg/dl (0.2-1.0) 07/25/22 22:46 AST 13 U/L (13-39) 07/25/22 22:46 ALT 8 U/L (7-52) 07/25/22 22:46 Alkaline Phosphatase 95 U/L (34-104) 07/25/22 22:46 Troponin I High Sens 17.2 pg/ml (0-14) H D 07/25/22 22:46 Total Protein 6.0 gm/dl (6.0-8.3) 07/25/22 22:46 Albumin 3.6 gm/dl (3.4-5.0) 07/25/22 22:46 Globulin 2.4 gm/dl (2.5-4.0) L 07/25/22 22:46 Albumin/Globulin Ratio 1.5 (0.9-2) 07/25/22 22:46 Lipase 38 U/L (11-82) 07/25/22 22:46 SARS-CoV-2, RNA, NAAT NEGATIVE (NEGATIVE) 07/26/22 01:45 ECG Additional Comments: EKG was sinus tachycardia at 102, AR = 164, QRS = 76, QTc = 422, nonspecific ST changes present in anterior leads PG Care Time/CCT Total # of Minutes Spent Total Time Spent with Patient: Total time spent is greater than 50% in coordination of care (as documented) at patient's floor/unit and/or counseling patient: Coding Level of Care Code INT OBSERVATION CARE 70M LVL 3 Diagnoses Chest pain R07.9 Asthma J45.41 Asthma severity: moderate Asthma persistence: persistent Asthma complication type: with acute exacerbation Hypertension I10 Hypertension type: essential hypertension Diabetes mellitus, type 2 E11.65; Z79.4 Diabetes mellitus detention insulin use: with detention use Diabetes mellitus complication status: with hyperglycemia CHF (congestive heart failure) I50.9 Obstructive sleep apnea on CPAP G47.33; Z99.89 GERD (gastroesophageal reflux disease) K21.9 (1) Asthma Asthma severity: moderate Asthma persistence: persistent Asthma complication type: with acute exacerbation Qualified Code(s): J45.41 - Moderate persistent asthma with (acute) exacerbation (2) Hypertension Hypertension type: essential hypertension Qualified Code(s): I10 - Essential (primary) hypertension (3) Diabetes mellitus, type 2 Diabetes mellitus detention insulin 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
[2022-07-26] MEDS ORDERED: GLUCAGON FOR INJ 1 MG VIAL SQ PRN (05:01)
[2022-07-26] MEDS ORDERED: CARBOHYDRATES FOR HYPOGLYCEMIA PO PRN (05:01)
[2022-07-26] MEDS ORDERED: ACETAMINOPHEN 325 MG TAB PO PRN (05:01)
[2022-07-26] MEDS ORDERED: ONDANSETRON INJ 2 MG/ML 2 ML VIAL IV PRN (05:01)
[2022-07-26] MEDS ORDERED: GLUCOSE 40% GEL 15 GM TUBE PO PRN (05:01)
[2022-07-26] MEDS ORDERED: GLUCOSE 10 TAB/TUBE PO PRN (05:01)
[2022-07-26] MEDS ORDERED: DEXTROSE 50% 50 ML SYRINGE IV PRN (05:01)
[2022-07-26] MEDS ORDERED: NITROGLYCERIN 0.3 MG/1 TAB 100 TAB BTL SL PRN (05:31)
[2022-07-26] MEDS ORDERED: MoRPHine SULFATE 2 MG/ML CARP IV PRN (05:31)
[2022-07-26] MEDS ORDERED: DICLOFENAC SOD 1% GEL 100 GM TUBE EXT PRN (05:33)
[2022-07-26] MEDS ORDERED: ALBUT/IPRATROP 3MG/0.5MG NEB 3 ML VIAL NEB PRN (05:33)
[2022-07-26] MEDS ORDERED: CYCLOBENZAPRINE HCL 5 MG TAB PO PRN (05:33)
[2022-07-26] MEDS ORDERED: ALBUTEROL HFA 8 GM INHALER INH PRN (05:33)
[2022-07-26] MEDS ORDERED: Patient's HEIGHT &/or WEIGHT Needed SCH (05:45)
[2022-07-26] MEDS ORDERED: FORMOTEROL 20 MCG/2 ML VIAL INH SCH (07:00)
[2022-07-26] MEDS ORDERED: BUDESONIDE 0.5 MG/2 ML VIAL (PULMICORT) INH SCH (07:00)
[2022-07-26] MEDS: IPRATROPIUM BROMIDE HFA INHALER INH SCH ×2 (07:30→13:17)
--- NOTE | 2022-07-26 08:48 | Electrocardiogram Report ---
Test Reason : Blood Pressure : / mmHG Vent. Rate : 102 BPM Atrial Rate : 102 BPM P-R Int : 164 ms QRS Dur : 076 ms QT Int : 324 ms P-R-T Axes : 031 -01 047 degrees QTc Int : 422 ms Poor data quality, interpretation may be adversely affected Sinus tachycardia Possible Left atrial enlargement Left ventricular hypertrophy Abnormal ECG When compared with ECG of 11-MAY-2022 10:50, Nonspecific T wave abnormality now evident in Anterior leads Confirmed by Kwaku Dominguez ([id number]) on 07/26/2022 8:47:48 AM Referred By: REFERRED SELF Confirmed By:Syd Dominguez
--- NOTE | 2022-07-26 08:51 | XRay Report ---
XR chest 1V portable HISTORY: Atypical Chest Pain COMPARISON: Chest 05/11/2022. FINDINGS: No pleural effusions. No pneumothorax. No focal lung consolidations to suggest a pneumonia. No evidence for pulmonary edema. The cardiac silhouette remains mildly enlarged. IMPRESSION: Stable mild cardiomegaly. ACT 112: Negative or not required by law. Electronically signed by: Octaviano Garcia M.D. 07/26/2022 8:50 AM
[2022-07-26] MEDS ORDERED: LINACLOTIDE 145 MCG CAPSULE PO SCH (09:00)
[2022-07-26] MEDS ORDERED: UMECLIDINIUM BROMIDE 62.5MCG/BLISTER 7 PUFFS/INHALER INH SCH (09:00)
[2022-07-26] MEDS ORDERED: LANTUS PER UNIT CHARGE SQ SCH (09:00)
[2022-07-26] MEDS ORDERED: METOPROLOL SUCC 25MG EXT REL TAB PO SCH (09:00)
[2022-07-26] MEDS ORDERED: FUROSEMIDE 20 MG TAB PO SCH (09:00)
[2022-07-26] MEDS ORDERED: LOSARTAN POTASSIUM 25 MG TAB PO SCH (09:00)
[2022-07-26] MEDS ORDERED: NICOTINE 21 MG/24 HR TDSY TD SCH (09:00)
[2022-07-26] MEDS ORDERED: PANTOprazole 40 MG TAB PO SCH (09:00)
[2022-07-26] MEDS: INSULIN ASPART PER UNIT SC SCH ×2 (09:26→13:01)
--- NOTE | 2022-07-26 13:15 | Discharge Summary ---
Date of Service July 26, 2022 Admission HPI Per Admitting Provider Deb Lara is a 56yo female With history of asthma, diastolic CHF, diabetes, GERD, SMITA and obesity presenting with chest pain that started last evening. Patient was resting comfortably on the couch around 1830 when she developed substernal chest pain which radiated to the left breast, neck and shoulder. Also bandlike pain going around her entire body. She had some shortness of breath as well as dizziness during the episode of pain. Patient took 2 nitroglycerin at home with minimal improvement. She was given ASA 324 mg by EMS with additional improvement. Upon arrival to the ER still with very dull chest pain, much improved from prior. Patient has frequent episodes of chest pain. This is similar to her last episode several months ago. She is to go to [place] later this month for mitral valve replacement due to chronic MR In the ER she had a troponin of 17.2, EKG with no acute ischemic changes. Principal Diagnosis 1. Chest pain, reproducible, ACS ruled out 2. Severe MR Discharge Exam GENERAL: 56 yo Well-developed, well-nourished obese BF. NAD. LUNGS: Clear to auscultation bilaterally. No W/R/R. CARDIOVASCULAR: Regular rate and rhythm. 3/6 murmur noted LSB ABDOMEN: Soft, non-tender and non-distended. BS normoactive x 4 quad. EXTREMITIES: No edema. Non-tender. Peripheral pulses +2/4. NEUROLOGIC: A&O x3. PSYCHIATRIC: Cooperative. Appropriate mood and affect. SKIN: Warm, dry, intact. No rashes or lesions. Discharge Data Allergies Allergy/AdvReac Type Severity Reaction Status Date / Time No Known Allergies Allergy Verified 06/30/22 13:08 Consultations 07/26/22 01:35 ED Decision to Admit Stat Hospital Course (1) Chest pain: 56-year-old female with history of diabetes, hypertension, hyperlipidemia presenting with chest pain that began earlier this evening around 1830. Pain at rest, substernal with radiation to the left neck and shoulder. She has some nonspecific ST changes present on EKG as well as a mildly elevated high- sensitivity troponin at 17.2. Patient has longstanding history of nonischemic chest pain. She had a recent cardiac catheterization performed on 05/11/2022 which showed angiographically normal coronary arteries as well as normal left and right-sided pressures. She has since been referred for mitral valve repair which she is to have done at [place] later this month. Pain is reproducible with compression of the ribs Observation to medical telemetry Trended troponin EKG as needed with chest pain Nitro as needed for pain Morphine as needed for pain Heat as needed - ruled out for acs with 3 negative troponins - EKG nonacute - CP resolved - Pt for mitral valve replacement/repair in [facility] on 08/01 (2) Asthma: Chronic. Stable. Presently without wheeze Continue albuterol as needed Continue arformoterol inhaled twice daily Continue budesonide inhaled twice daily (3) Hypertension: Chronic. -Continue Losartan -Continue metoprolol -Continue to monitor (4) Diabetes mellitus, type 2: Chronic. Overall, fairly well controlled. Last hemoglobin A1c = 7.5 on 05/12/2022. Elevated blood sugars today upon arrival which improved with administration of IV insulin.. Lantus 7 units twice daily Insulin sliding scale Goal blood sugar 1 10-1 40 (5) CHF (congestive heart failure): Chronic. Compensated.No evidence of failure present on exam Continue Lasix 20 mg p.o. every morning (6) Obstructive sleep apnea on CPAP: Chronic. CPAP nightly as directed (7) GERD (gastroesophageal reflux disease): Chronic. Stable. Continue Protonix 40 mg p.o. twice daily Plan Patient is CP free, has ruled out for ACS. She is medically and hemodynamically stable for discharge home today. Plan d/w Dr. Moise who has also seen and evaluated this patient prior to dc and agreed with aforementioned. Total Time Total Time Spent Total Time Spent (In Minutes): <30 minutes Discharge Plan Discharge Items Patient Disposition: Home - Self-Care Reason For Visit: CHEST PAIN Discharge Diagnosis: chest pain, not acute coronary syndrome Activity: Resume your previous activity Non-emergency contact: Primary Care Provider Call non-emergency contact if: you have any medication questions and your symptoms worsen Follow-up/Referrals: James Hendrix DO [Primary Care Provider] - 08/04/22 11:30 am Diet: Carb Consistent or DM2 Addtl Attending Provider Instructions: You were hospitalized due to chest pain - thankfully, your heart markers in your blood were not elevated and your EKG was not grossly abnormal to suggest that you had a heart attack. However, it is known that you have a very leaky mitral valve. It is advised that you follow up with your cardiology team for planned mitral valve repair/placement as scheduled. Also follow up with your family doctor upon discharge from the hospital when able. If you have any questions/concerns following your discharge that can not be answered by your family doctor, you may call the nonemergency number listed on your discharge paperwork. In the event of a medical emergency, call 911. Pending Studies at Discharge: No Stand-Alone Forms: My [facility], Smoking Cessation Medications and DC Order Prescriptions: Continued albuterol sulfate 90 mcg/actuation HFA aerosol inhaler 2 puff INHALATION Q6 PRN (Reason: Shortness Of Breath Or Wheezing) Qty: 18 5RF Atrovent HFA 17 mcg/actuation HFA aerosol inhaler 2 puff INHALATION TID Qty: 12.9 5RF clotrimazole 10 mg day 10 mg mucous membrane 5XD Qty: 35 0RF Xarelto 20 mg tablet 20 mg PO QPM Qty: 90 1RF Rx Instructions: must administer with evening meal cyclobenzaprine 5 mg tablet 5 mg PO TID PRN (Reason: muscle spasm) Qty: 30 0RF diclofenac sodium 1 % gel 2 g TOPICAL QID PRN (Reason: Pain) Qty: 100 3RF Proctofoam HC 1-1 % foam 1 applic SD BID PRN (Reason: hemorrhoids) Qty: 10 0RF losartan 25 mg tablet 25 mg PO QAM Qty: 60 5RF metoprolol succinate 25 mg tablet extended release 24 hr 25 mg PO QAM Qty: 60 5RF nitroglycerin 0.4 mg tablet, sublingual 0.4 mg sublingual Q5M PRN (Reason: Chest Pain) Rx Instructions: do not exceed 3 doses per episode budesonide 0.5 mg/2 mL suspension for nebulization 0.5 mg inhalation BID Qty: 60 2RF arformoterol [Brovana] 15 mcg/2 mL solution for nebulization 2 ml inhalation BID Qty: 120 2RF nicotine [Nicoderm CQ] 21 mg/24 hr patch 24 hour 21 mg transdermal QAM Qty: 30 0RF ipratropium-albuterol 0.5 mg-3 mg(2.5 mg base)/3 mL solution for nebulization 3 ml NEB Q6H PRN (Reason: wheezing/SOB/cough) benzonatate 100 mg Capsule 200 mg PO TID PRN (Reason: cough) Qty: 180 0RF Incruse Ellipta 62.5 mcg/actuation Blister With Device 1 inh inhalation QAM Qty: 30 0RF pantoprazole 40 mg Tablet,Delayed Release (Dr/Ec) 40 mg PO BID Qty: 60 0RF Rx Instructions: New dose of this medication metformin 750 mg tablet extended release 24 hr 750 mg PO BID Qty: 60 0RF furosemide 20 mg tablet 20 mg PO QAM Linzess 145 mcg capsule 145 mcg PO QAM acetaminophen-codeine 300-30 mg tablet 1 tab PO Q8H PRN (Reason: pain) Qty: 3 0RF Discharge Orders: Discharge Order (Routine); Ordered 07/26/22 Ordered By: Libia Santos Admission Data Admit Date/Time: 07/26/22 03:11 Attending Provider: Juanito Moise Admit Provider: Eve Livingston Primary Care Provider: James Hendrix Other Providers: Eve Livingston Other Interventions: Discharge Summary Assessment (RN) Last Done: 07/26/22 14:31 Supervising Physician Co-Signing Physician Notes Patient seen and examined, chart reviewed, case discussed with Libia Santos PA-C and I agree with the assessment and plan as above except as otherwise noted Labs and images reviewed General: A&Ox3. NAD. Cooperative. HEENT: Atraumatic, normocephalic. Pulm: CTAB A&P. -wheezes, -rales, -rhonchi. Symmetrical chest rise. No increase in work of breathing. No respiratory distress. Cardiac: RRR, -mrg. Radial pulses intact and symmetrical. Abdominal: Nontender, nondistended, soft. BS present. 56yo F presented with chest pain, cardiac eval as above. Agree with management above Coding Level of Care Code None Diagnoses Chest pain R07.9 Asthma J45.41 Asthma complication type: with acute exacerbation Asthma persistence: persistent Asthma severity: moderate Hypertension I10 Hypertension type: essential hypertension Diabetes mellitus, type 2 E11.65; Z79.4 Diabetes mellitus complication status: with hyperglycemia Diabetes mellitus custodial insulin use: with custodial use CHF (congestive heart failure) I50.9 Obstructive sleep apnea on CPAP G47.33; Z99.89 GERD (gastroesophageal reflux disease) K21.9
[2022-07-26] MEDS ORDERED: RIVAROXABAN 20 MG TAB PO SCH (16:30)
== END 2022-07-26 15:24 | disposition home or self-care (01) ==
LOC: 4W 21:19 → ED 21:19 → SUATTDRO 07-26 03:11 → 4W 07-26 04:14
DX: Z79.84 Long term (current) use of oral hypoglycemic drugs; F17.210 Nicotine dependence, cigarettes, uncomplicated; K21.9 Gastro-esophageal reflux disease without esophagitis; G47.33 Obstructive sleep apnea (adult) (pediatric); Z79.899 Other long term (current) drug therapy; R07.9 Chest pain, unspecified; I11.0 Hypertensive heart disease with heart failure; E11.65 Type 2 diabetes mellitus with hyperglycemia; I34.0 Nonrheumatic mitral (valve) insufficiency; I50.9 Heart failure, unspecified; J45.909 Unspecified asthma, uncomplicated

== ENCOUNTER 2022-09-13 11:13 | Observation (INO) ==
[2022-09-13] MEDS ORDERED: ONDANSETRON INJ 2 MG/ML 2 ML VIAL IV STA (12:08)
--- NOTE | 2022-09-13 12:12 | Emergency Department Note ---
Impression & Plan Chest pain, Elevated troponin ED Provider Note NAME: CYRUS MUELLER AGE: 56 SEX: F : 1965 ARRIVES VIA: Ambulance INFORMANT: Patient ED PROVIDER(S): Shaji Horton DO CHIEF COMPLAINT: chest pain HPI: Patient is a 56-year-old female with a past medical history of asthma, hyperglycemia, hypertension, hyperlipidemia, atrial tachycardia, diabetes, CHF, CAD with stent and recent valve replacement on the third who presents the ER for 2 separate types of chest pain. She describes pain under her left breast which are sharp and stabbing. Worsens with twisting, turning, and bending. She also has a pressure throughout her entire chest which comes and goes intermittently since last night. Denies any belly pain, nausea, vomiting, or diarrhea. No dysuria, urgency, or frequency. No other exacerbating or remitting factors. ROS: See above HPI for pertinent positives & negatives. A total of 10 systems reviewed and were otherwise negative. PAST MEDICAL HISTORY:See Below PAST SURGICAL HISTORY:See Below FAMILY HISTORY:See Below SOCIAL HISTORY:See Below HOME MEDICATIONS:See Below ALLERGIES:See Below VITALS:See Below PHYSICAL EXAMINATION: GENERAL: Sitting up in bed, alert, well appearing, well nourished, no distress, non-toxic EYE EXAM: normal conjunctiva. PERRL and EOM's intact. OROPHARYNX: no exudate, no erythema, lips, buccal mucosa, and tongue normal and mucous membranes are moist NECK: supple, no nuchal rigidity, no adenopathy, non-tender LUNGS: Clear to auscultation. Normal chest wall mechanics CHEST: Reproducible anterior chest wall pain under the left breast. Incision is clean dry intact. HEART: no murmurs, S1 normal and S2 normal ABDOMEN: abdomen soft, non-tender, normo-active bowel sounds, no masses, no rebound or guarding. BACK: Back is symmetrical on inspection and there is no deformity, no midline tenderness, no CVA tenderness. SKIN: no rashes and no bruising UPPER EXTREMITIES: upper extremities are grossly normal. LOWER EXTREMITIES: No pitting edema. NEURO EXAM: Normal sensorium, cranial nerves II-XII intact, normal speech, no weakness of arms, no weakness of legs. No drift. Finger to nose intact. Gross s ensation intact. MEDICAL DECISION MAKING: Patient is a 56-year-old female who presents the ER with past medical history of mitral valve repair, A. fib and previous stents for 2 different types of chest pain. One is clearly reproducible on exam the other she describes as a pressure which resolved with nitro. IV was established blood work was obtained. Labs showed no significant leukocytosis. Mild anemia 10. BMP along with LFTs bilirubin was unremarkable. Initial troponin was 93. Lipase normal. Troponin was negative. Chest x-ray was unremarkable. EKG was nonsignificant change from previous. Patient was given IV morphine. She is given fluids. Updated bed side. Discussed with the hospitalist for further work-up Triage Nursing notes reviewed. Limited review of prior medical records performed Vital Signs: reviewed and remarkable for no significant abnormalities Differential diagnosis: Cardiac ischemia, aortic dissection, pulmonary embolism, pneumothorax, pneumonia, pericarditis, myocarditis, esophageal rupture, GERD, cholecystitis, pancreatitis, musculoskeletal, as well as other pathologies. ER treatment provided: See below Diagnostics interpreted by me: ECG:Sinus rhythm rate of 60 Normal axis No PVCs QTC 472 T wave inversions in the high lateral leads T wave inversions are new in comparison to last month Cardiac Monitoring: An order was placed for continuous cardiac monitoring. The m onitor shows a rate of 62 with sinus rhythm. Laboratory studies: As stated above and show below. Imaging studies: Portable AP upright 1 view of the chest unremarkable Consultation(s): Discussed with Juanito from [facility] hospitalist service for further evaluation Procedures: none Critical Care: None Past Med/Surg History Medical History (Updated 09/13/22 @ 16:01 by Shaji Horton DO) Acute chest pain Asthma exacerbation in COPD Asthma-COPD overlap syndrome Atrial fibrillation Chest pain Chronic diastolic congestive heart failure Chronic low back pain Degeneration of cervical intervertebral disc Diabetes mellitus, type 2 oral medication Dyspnea on exertion so severe pt is wheelchair bound (per [facility] record) External hemorrhoids GERD (gastroesophageal reflux disease) Hemiplegic migraine History of COVID-19 diagnosed 2yrs ago---mild symptoms, no symptoms now History of pulmonary embolism on xarelto Hoarseness of voice Mitral valve insufficiency Obesity SMITA on CPAP Urinary incontinence Vertebral artery stenosis Vitamin D deficiency Surgical History (Updated 09/13/22 @ 14:15 by Marysol Golden PA-C) Facial fracture (2014) WITH RECONSTRUCTION History of bilateral tubal ligation History of cardiac cath X2 STENTS - (~2010, IN [place], [place]). NO STENTS - ([facility] @ ~2014) No stents ([facility] 05/11/2022) - Follows Nita Moon - [facility] History of colonoscopy History of esophagogastroduodenoscopy (EGD) History of heart artery stent X2 STENTS (2010) UNSURE OF KIND. NO STENT CARDS PER PT. History of hemorrhoidectomy (~2017) @ [facility] History of mandibular surgery History of transesophageal echocardiography (GEORGETTE) performed 06/21/22 @ [facility]---per report pt has severe mitral valve insufficiency S/P left knee arthroscopy S/p tibial fracture open treatment of Fx with plate/screws, Left leg Status post right foot surgery Family History Mother Breast cancer, Onset Age: 64 Type 2 diabetes mellitus Father Diabetes Coronary heart disease Type 2 diabetes mellitus Myocardial infarction, Onset Age: 52 Family/Other Hypertension sibling Denies family history of Ovarian cancer Social History Smoking Status: Former smoker Tobacco Type: Cigarettes Cigarettes Per Day: 1 pk/day; Second Hand Exposure: No; Hx Alcohol Use: Yes Alcohol type: beer Hx Substance Use: No Preferred Language: Slovak Communication Ability: Effective Visual Impairment: No Limitations 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 How many Children do You have: 5 Feels Safe at Home: Yes Assistive Devices: Cane and Wheelchair Allergies Allergies Allergy/AdvReac Type Severity Reaction Status Date / Time No Known Allergies Allergy Verified 09/09/22 11:37 Home Meds Home Medications Medication Instructions Recorded Confirmed ipratropium 0.5 mg-albuterol 3 mg 3 ml NEB Q6H PRN wheezing/SOB/cough 05/06/22 09/12/22 (2.5 mg base)/3 mL nebulization soln nitroglycerin 0.4 mg sublingual 0.4 mg sublingual Q5M PRN Chest 05/16/22 09/12/22 tablet Pain linaclotide 145 mcg capsule 145 mcg PO QAM 05/24/22 09/09/22 (Linzess) amiodarone 200 mg tablet 200 mg PO DAILY 09/02/22 09/12/22 atorvastatin 40 mg tablet 40 mg PO QPM 09/02/22 09/12/22 chlorhexidine gluconate 0.12 % 15 ml buccal BID 09/02/22 09/12/22 mouthwash diclofenac sodium 1 % topical gel 4 g topical QID 09/02/22 09/12/22 (Arthritis Pain (diclofenac)) docusate sodium 100 mg capsule 100 mg PO BID 09/02/22 09/12/22 fluticasone propionate 100 1 inh inhalation BID 09/02/22 09/12/22 mcg/actuation blister powder for inhalation furosemide 20 mg tablet 40 mg PO QAM 09/02/22 09/12/22 mometasone-formoterol HFA 200 2 puff inhalation Q12H 09/02/22 09/12/22 mcg-5 mcg/actuation aerosol inhaler (Dulera) potassium chloride 20 mEq 20 meq PO BID 09/02/22 09/12/22 tablet,extended release sennosides 8.6 mg capsule (senna) 8.6 mg PO BID 09/02/22 09/12/22 warfarin 5 mg tablet 5 mg PO DAILY 09/02/22 09/12/22 Previous Rx's Medication Instructions Recorded nicotine 21 mg/24 hr daily 21 mg transdermal QAM #30 ea 01/26/22 transdermal patch (Nicoderm CQ) albuterol sulfate 90 mcg/actuation 2 puff inhalation Q6 PRN Shortness 05/03/22 aerosol inhaler Of Breath Or Wheezing #18 grams ipratropium bromide 17 2 puff inhalation TID #12.9 grams 05/03/22 mcg/actuation HFA aerosol inhaler (Atrovent HFA) benzonatate 100 mg capsule 200 mg PO TID PRN cough #180 caps 05/13/22 metformin 750 mg tablet,extended 750 mg PO BID #60 tabs 05/13/22 release 24 hr pantoprazole 40 mg tablet,delayed 40 mg PO BID #60 tabs 05/13/22 release umeclidinium 62.5 mcg/actuation 1 inh inhalation QAM #30 ea 05/13/22 blister powder for inhalation (Incruse Ellipta) arformoterol 15 mcg/2 mL solution 2 ml inhalation BID #120 mL 05/24/22 for nebulization (Brovana) budesonide 0.5 mg/2 mL suspension 0.5 mg (2 mL) inhalation BID #60 mL 05/24/22 for nebulization diclofenac sodium 1 % topical gel 2 g topical QID PRN Pain #100 grams 07/18/22 hydrocortisone 1 %-pramoxine 1 % 1 applic VA BID PRN hemorrhoids 07/18/22 rectal foam (Proctofoam HC) #10 grams losartan 25 mg tablet 25 mg PO QAM #60 tabs 07/18/22 Bedside Commode #1 ea 08/04/22 gabapentin 300 mg capsule See Rx Instructions PO DAILY 08/10/22 chronic pain #60 caps Hospital Bed Homecare #1 ea 08/12/22 metoprolol succinate 25 mg 50 mg PO QAM #60 tabs 09/02/22 tablet,extended release 24 hr oxycodone 5 mg tablet 5 mg PO Q8H PRN pain #30 tabs 09/09/22 Results & Data (ED) Vital Signs Vital Signs - 24 hr 09/13/22 10:43 09/13/22 11:59 09/13/22 12:30 Temperature 36.7 C Temperature Source Oral Pulse Rate 58 L Pulse Rate [Apical] 52 L Respiratory Rate 18 25 H Respiratory Effort / Characteristics Non-Labored Non-Labored Spontaneous Respiratory Depth Normal Normal Blood Pressure 111/78 Blood Pressure [Right Arm] 107/48 L Blood Pressure Mean 89 Blood Pressure Mean [Right Arm] 67 Pulse Oximetry 95 95 95 Oxygen Delivery Method Room Air Room Air Room Air Sepsis Recent Fever Within 48 Hours No Sepsis New/Unexplained Change in Mental Status N/A Sepsis Action Taken by Nursing No Action Required 09/13/22 11:17 09/13/22 14:00 09/13/22 15:15 Temperature Temperature Source Pulse Rate Pulse Rate [Apical] 58 L 50 L Respiratory Rate 24 20 Respiratory Effort / Characteristics Non-Labored Spontaneous Non-Labored Spontaneous Respiratory Depth Normal Normal Blood Pressure Blood Pressure [Right Arm] 109/61 118/66 Blood Pressure Mean Blood Pressure Mean [Right Arm] 77 83 Pulse Oximetry 96 94 Oxygen Delivery Method Room Air Room Air Room Air Sepsis Recent Fever Within 48 Hours Sepsis New/Unexplained Change in Mental Status Sepsis Action Taken by Nursing Laboratory Data Result diagrams: 09/13/22 11:26 09/13/22 11:26 Lab Results 11/09/13/22 09/13/22 Range/Units 11:26 11:26 11:26 WBC 7.99 (4.8-10.8) K/ul RBC 3.39 L (3.93-5.22) M/uL Hgb 9.9 L (12.0-16.0) g/dl Hct 32.3 L (34.1-44.9) % MCV 95.3 (80.0-100.0) fL MCH 29.2 (25.0-34.0) pg MCHC 30.7 L (32.0-36.0) g/dL RDW Std Deviation 47.9 H (36.4-46.3) fL RDW Coeff of Majo 13.9 (11.5-14.5) % Plt Count 431 H (130-400) K/uL MPV 10.3 (9.4-12.3) fL Immature Gran % (Auto) 0.3 % Neut % (Auto) 55.4 % Lymph % (Auto) 35.0 % Tift % (Auto) 6.8 % Eos % (Auto) 2.0 % Baso % (Auto) 0.5 % Neut # (Auto) 4.43 (1.4-6.5) K/uL Lymph # (Auto) 2.80 (1.2-3.4) K/uL Tift # (Auto) 0.54 (0.24-0.82) K/uL Eos # (Auto) 0.16 (0-0.50) K/uL Baso # (Auto) 0.04 (0-0.2) K/uL Immature Gran # (Auto) 0.02 (0.00-0.02) K/uL PT 15.2 H (9.0-12.0) Seconds INR 1.5 H (0.9-1.1) Sodium 140 (136-145) mmol/L Potassium 4.3 (3.5-5.1) mmol/L Chloride 102 (98-107) mmol/L Carbon Dioxide 30 (21-32) mmol/L Anion Gap 8 (3-11) BUN 19 (6-23) mg/dl Creatinine 1.08 (0.6-1.2) mg/dl Est Cr Clr Drug Dosing 73.8 ml/min Est GFR ( Amer) 66.0 ml/min Est GFR (Non-Af Amer) 56.9 ml/min BUN/Creatinine Ratio 17.6 (10-20) Glucose 114 H (70-99(Fasting)) mg/dl Calcium 9.2 (8.5-10.1) mg/dl Total Bilirubin 0.4 (0.2-1.0) mg/dl AST 23 (13-39) U/L ALT 26 (7-52) U/L Alkaline Phosphatase 134 H (34-104) U/L Troponin I High Sens 93.2 H* D (0-14) pg/ml Total Protein 7.6 (6.0-8.3) gm/dl Albumin 3.7 (3.4-5.0) gm/dl Globulin 3.9 (2.5-4.0) gm/dl Albumin/Globulin Ratio 0.9 (0.9-2) Lipase 57 (11-82) U/L SARS-CoV-2, RNA, NAAT (NEGATIVE) 09/13/22 09/13/22 Range/Units 13:28 13:42 WBC (4.8-10.8) K/ul RBC (3.93-5.22) M/uL Hgb (12.0-16.0) g/dl Hct (34.1-44.9) % MCV (80.0-100.0) fL MCH (25.0-34.0) pg MCHC (32.0-36.0) g/dL RDW Std Deviation (36.4-46.3) fL RDW Coeff of Majo (11.5-14.5) % Plt Count (130-400) K/uL MPV (9.4-12.3) fL Immature Gran % (Auto) % Neut % (Auto) % Lymph % (Auto) % Tift % (Auto) % Eos % (Auto) % Baso % (Auto) % Neut # (Auto) (1.4-6.5) K/uL Lymph # (Auto) (1.2-3.4) K/uL Tift # (Auto) (0.24-0.82) K/uL Eos # (Auto) (0-0.50) K/uL Baso # (Auto) (0-0.2) K/uL Immature Gran # (Auto) (0.00-0.02) K/uL PT (9.0-12.0) Seconds INR (0.9-1.1) Sodium (136-145) mmol/L Potassium (3.5-5.1) mmol/L Chloride (98-107) mmol/L Carbon Dioxide (21-32) mmol/L Anion Gap (3-11) BUN (6-23) mg/dl Creatinine (0.6-1.2) mg/dl Est Cr Clr Drug Dosing ml/min Est GFR ( Amer) ml/min Est GFR (Non-Af Amer) ml/min BUN/Creatinine Ratio (10-20) Glucose (70-99(Fasting)) mg/dl Calcium (8.5-10.1) mg/dl Total Bilirubin (0.2-1.0) mg/dl AST (13-39) U/L ALT (7-52) U/L Alkaline Phosphatase (34-104) U/L Troponin I High Sens 95.1 H* (0-14) pg/ml Total Protein (6.0-8.3) gm/dl Albumin (3.4-5.0) gm/dl Globulin (2.5-4.0) gm/dl Albumin/Globulin Ratio (0.9-2) Lipase (11-82) U/L SARS-CoV-2, RNA, NAAT NEGATIVE (NEGATIVE) Administered Medications Discontinued Medications Sodium Chloride (Nss) 500 mls @ 999 mls/hr IV .Q31M ONE Stop: 09/13/22 12:55 Last Infusion: 09/13/22 13:04 Dose: 0 mls/hr Documented By: Admin: 09/13/22 12:30 Dose: 999 mls/hr Documented By: Morphine Sulfate (Morphine Sulfate 4 Mg/Ml 1 Ml Carp\Vial) 4 mg IV NOW STA Stop: 09/13/22 12:09 Last Admin: 09/13/22 12:27 Dose: 2 mg Documented By: Admin: 09/13/22 12:27 Dose: Not Given Documented By: Morphine Sulfate (Morphine Sulfate 2 Mg/Ml Carp) 1 mg IV NOW STA Stop: 09/13/22 14:27 Last Admin: 09/13/22 15:26 Dose: 1 mg Documented By: Ondansetron HCl (Ondansetron Inj 2 Mg/Ml 2 Ml Vial) 4 mg IV NOW STA Stop: 09/13/22 12:09 Last Admin: 09/13/22 12:26 Dose: 4 mg Documented By: Imaging Data Radiologist's Impression: Chest X-Ray 09/13/22 11:59 SINGLE VIEW CHEST CLINICAL HISTORY: Atypical chest pain. FINDINGS: An AP, portable, upright chest radiograph is compared to study dated 07/25/2022 and correlated with chest CT dated 05/11/2022. The patient is status post midline sternotomy and cardiac valve surgery. This is new from 07/25/2022. The heart is enlarged. There is mild pulmonary vascular congestion. Atelectasis is noted at the lung bases. The lungs and pleural spaces are otherwise clear. No pneumothorax is seen. The skeletal structures are osteopenic. The bony thorax is grossly intact. IMPRESSION: 1. Cardiomegaly with mild pulmonary vascular congestion. 2. Postsurgical change is new from 07/25/2022. ACT 112: Negative or not required by law. Electronically signed by: Marin De La Rosa M.D. 09/13/2022 12:23 PM Discharge Plan Visit Data Chief Complaint: Chest Pain Stated Complaint: CARDIAC SX ED Provider: Shaji Horton Discharge Problem: Chest pain, Elevated troponin Discharge Instructions Interventions: ED Discharge Assessment Last Done: 09/13/22 16:01 Forms Stand Alone Forms: [facility] [employer] Prescriptions Prescriptions: No Action albuterol sulfate 90 mcg/actuation HFA aerosol inhaler 2 puff INHALATION Q6 PRN (Reason: Shortness Of Breath Or Wheezing) Qty: 18 5RF Atrovent HFA 17 mcg/actuation HFA aerosol inhaler 2 puff INHALATION TID Qty: 12.9 5RF diclofenac sodium 1 % gel 2 g TOPICAL QID PRN (Reason: Pain) Qty: 100 3RF Proctofoam HC 1-1 % foam 1 applic VA BID PRN (Reason: hemorrhoids) Qty: 10 0RF losartan 25 mg tablet 25 mg PO QAM Qty: 60 5RF gabapentin 300 mg capsule See Rx Instructions PO DAILY Qty: 60 2RF Rx Instructions: 300mg poqam for 1 week then increase to 300mg bid orally daily; (DME) Hospital Bed Homecare Misc See Rx Instructions .Route Qty: 1 0RF Rx Instructions: As directed-HOSPITAL BED, LENGTH OF NEED 99 MONTHS, DX CODE; Z98.890 amiodarone 200 mg tablet 200 mg PO DAILY furosemide 20 mg tablet 40 mg PO QAM potassium chloride 20 mEq tablet extended release 20 meq PO BID atorvastatin 40 mg tablet 40 mg PO QPM metoprolol succinate 25 mg tablet extended release 24 hr 50 mg PO QAM Qty: 60 5RF fluticasone propionate 100 mcg/actuation blister with device 1 inh inhalation BID Dulera 200-5 mcg/actuation HFA aerosol inhaler 2 puff inhalation Q12H chlorhexidine gluconate 0.12 % mouthwash 15 ml buccal BID diclofenac sodium [Arthritis Pain (diclofenac)] 1 % gel 4 g topical QID Rx Instructions: apply to single knee, ankle, foot; for foot includes sole/toes/top of foot docusate sodium 100 mg capsule 100 mg PO BID senna 8.6 mg capsule 8.6 mg PO BID nitroglycerin 0.4 mg tablet, sublingual 0.4 mg sublingual Q5M PRN (Reason: Chest Pain) Rx Instructions: do not exceed 3 doses per episode budesonide 0.5 mg/2 mL suspension for nebulization 0.5 mg inhalation BID Qty: 60 2RF arformoterol [Brovana] 15 mcg/2 mL solution for nebulization 2 ml inhalation BID Qty: 120 2RF (DME) Bedside Commode Misc See Rx Instructions .Route Qty: 1 0RF Rx Instructions: As directed warfarin 5 mg tablet 5 mg PO DAILY nicotine [Nicoderm CQ] 21 mg/24 hr patch 24 hour 21 mg transdermal QAM Qty: 30 0RF oxycodone 5 mg tablet 5 mg PO Q8H PRN (Reason: pain) Qty: 30 0RF ipratropium-albuterol 0.5 mg-3 mg(2.5 mg base)/3 mL solution for nebulization 3 ml NEB Q6H PRN (Reason: wheezing/SOB/cough) benzonatate 100 mg Capsule 200 mg PO TID PRN (Reason: cough) Qty: 180 0RF Incruse Ellipta 62.5 mcg/actuation Blister With Device 1 inh inhalation QAM Qty: 30 0RF pantoprazole 40 mg Tablet,Delayed Release (Dr/Ec) 40 mg PO BID Qty: 60 0RF Rx Instructions: New dose of this medication metformin 750 mg tablet extended release 24 hr 750 mg PO BID Qty: 60 0RF Linzess 145 mcg capsule 145 mcg PO QAM Referrals Referrals: James Hendrix DO [Primary Care Provider] -
[2022-09-13 12:21] LABS: Basophils # (auto) 0.04 K/uL (0-0.2); Basophils % (auto) 0.5 %; Eosinophils # (auto) 0.16 K/uL (0-0.50); Hematocrit (blood only) 32.3 % (34.1-44.9); Hemoglobin 9.9 g/dl (12.0-16.0); Immature Granulocytes # (auto) 0.02 K/uL (0.00-0.02); Immature Granulocytes % (auto) 0.3 %; Mean Corpuscular Hemoglobin 29.2 pg (25.0-34.0); Mean Corpuscular Hgb Conc 30.7 g/dL (32.0-36.0); Mean Corpuscular Volume 95.3 fL (80.0-100.0); Mean Platelet Volume 10.3 fL (9.4-12.3); Monocytes # (auto) 0.54 K/uL (0.24-0.82); Monocytes % (auto) 6.8 %; Neutrophils # (auto) 4.43 K/uL (1.4-6.5); Neutrophils % (auto) 55.4 %; Platelet Count 431 K/uL (130-400); RDW Coefficient of Variation 13.9 % (11.5-14.5); RDW Standard Deviation 47.9 fL (36.4-46.3); Red Blood Count 3.39 M/uL (3.93-5.22); White Blood Count 7.99 K/ul (4.8-10.8)
--- NOTE | 2022-09-13 12:24 | XRay Report ---
SINGLE VIEW CHEST CLINICAL HISTORY: Atypical chest pain. FINDINGS: An AP, portable, upright chest radiograph is compared to study dated 07/25/2022 and correlat ed with chest CT dated 05/11/2022. The patient is status post midline sternotomy and cardiac valve joel shamika. This is new from 07/25/2022. The heart is enlarged. There is mild pulmonary vascular congestion. Atelectasis is noted at the lung bases. The lungs and pleural spaces are otherwise clear. No pneumot horax is seen. The skeletal structures are osteopenic. The bony thorax is grossly intact. IMPRESSION: 1. Cardiomegaly with mild pulmonary vascular congestion. 2. Postsurgical change is new from 07/25/2022. ACT 112: Negative or not required by law. Electronically signed by: Marin De La Rosa M.D. 09/13/2022 12:23 PM
[2022-09-13] MEDS ORDERED: SODIUM CHLORIDE 0.9% 500 ML IV ONE (12:25)
[2022-09-13] MEDS: MoRPHine SULFATE 4 MG/ML 1 ML CARP\\VIAL IV STA ×2 (12:27)
[2022-09-13 12:29] LABS: Albumin Globulin Ratio 0.9 (0.9-2); Albumin Level 3.7 gm/dl (3.4-5.0); BUN Creatinine Ratio 17.6 (10-20); Bilirubin,Total 0.4 mg/dl (0.2-1.0); Calcium 9.2 mg/dl (8.5-10.1); Creatinine Clr Calc Pharmacy 73.8 ml/min; Est GFR (Non-African American) 56.9 ml/min; Globulin 3.9 gm/dl (2.5-4.0); Potassium 4.3 mmol/L (3.5-5.1); Total Protein 7.6 gm/dl (6.0-8.3)
[2022-09-13 12:59] LABS: Troponin I High Sensitivity 93.2 pg/ml (0-14)
--- NOTE | 2022-09-13 13:41 | History & Physical Report ---
Date of Service September 13, 2022 Assessment & Plan (1) Chest pain: Plan: - 2 episodes of left rib/breast pain w/in the past 24 hours associated with pain on inspiration, nausea, vomiting. - s/p MVR at [facility] [place] 08/25. - Initial trop 93, repeat after 2 hours--95. - Trend troponin, echo in AM. - Nitroglycerin, morphine prn for chest pain; will try lidocaine patches with Tylenol and NSAIDs for suspected rib/MSK pain. (2) S/P MVR (mitral valve repair): Plan: - 31 mm [place]i mechanical valve, performed on 08/25 at [facility] [place]. - Complicated by new onset A. fib, NSR achieved with IV and oral amiodarone. - Started on Coumadin for A. fib and mechanical valve. - Continues to have mild postoperative/surgical site discomfort, unchanged today. (3) Chronic obstructive pulmonary disease: Plan: - Continue home inhalers. - No evidence of acute exacerbation. (4) Hypertension: Plan: - Continue losartan, metoprolol. (5) Diabetes mellitus, type 2: Plan: - Hold metformin. -Weight based basal/bolus insulin with Accuchecks ACHS. (6) CHF (congestive heart failure): Plan: - Continue Lasix 40 mg daily. - Echo in AM. - Echo 06/21/22: EF 35-39%, diffuse hypokinesis, severe MR (7) Atrial fibrillation: Plan: - New onset earlier this month during hospitalization for MVR. - NSR today. - Continue on amiodarone and warfarin. History of Present Illness Chief Complaint: chest pain x 1 day Primary Care Provider: DO Deb Hines is a 56-year-old female past medical history significant for CAD and mitral valve repair on 08/25 at [facility] complicated by new onset a fib during hospitalization, as well as asthma, diabetes, hypertension, and hyperlipidemia who is presenting today with chest pain. Since discharge from [facility], she has had some mild chest pressure at/around the site of her incision which she has been able to control at home with medication. Last evening, she noticed left chest pain under her left breast which she describes as a squeezing sensation. Shortly after onset she did become nauseous and vomited up several meals she had throughout the night. The pain is worse with twisting movements, sitting up too quickly, and breathing deeply. She feels short of breath as it is painful for her to take deep breaths and, otherwise has not had any shortness of breath or orthopnea since her mitral valve was replaced. She took nitro at home for this pain, which alleviated it, however woke with it again this morning and presented to the ED for further ev aluation. Upon presentation to the ED, she is mildly bradycardic with HR in 50s, otherwise vital signs within normal limits and stable. Initial troponin 93. Labs otherwise notable for normocytic anemia, with an Hgb of 9.9, decreased from 12.6 one month ago. CXR shows cardiomegaly with mild pulmonary vascular congestion and postsurgical changes from recent valve replacement. Allergies Allergy/AdvReac Type Severity Reaction Status Date / Time No Known Allergies Allergy Verified 09/09/22 11:37 Home Medications Medication Instructions Recorded Confirmed Type nicotine 21 mg/24 hr daily 21 mg transdermal QAM #30 ea 01/26/22 09/09/22 Rx transdermal patch (Nicoderm CQ) albuterol sulfate 90 mcg/actuation 2 puff inhalation Q6 PRN Shortness 05/03/22 09/12/22 Rx aerosol inhaler Of Breath Or Wheezing #18 grams ipratropium bromide 17 2 puff inhalation TID #12.9 grams 05/03/22 09/12/22 Rx mcg/actuation HFA aerosol inhaler (Atrovent HFA) ipratropium 0.5 mg-albuterol 3 mg 3 ml NEB Q6H PRN wheezing/SOB/cough 05/06/22 09/12/22 History (2.5 mg base)/3 mL nebulization soln benzonatate 100 mg capsule 200 mg PO TID PRN cough #180 caps 05/13/22 09/12/22 Rx metformin 750 mg tablet,extended 750 mg PO BID #60 tabs 05/13/22 09/12/22 Rx release 24 hr pantoprazole 40 mg tablet,delayed 40 mg PO BID #60 tabs 05/13/22 09/12/22 Rx release umeclidinium 62.5 mcg/actuation 1 inh inhalation QAM #30 ea 05/13/22 09/12/22 Rx blister powder for inhalation (Incruse Ellipvicki) nitroglycerin 0.4 mg sublingual 0.4 mg sublingual Q5M PRN Chest 05/16/22 09/13/22 History tablet Pain arformoterol 15 mcg/2 mL solution 2 ml inhalation BID #120 mL 05/24/22 09/12/22 Rx for nebulization (Brovana) budesonide 0.5 mg/2 mL suspension 0.5 mg (2 mL) inhalation BID #60 mL 05/24/22 09/12/22 Rx for nebulization linaclotide 145 mcg capsule 145 mcg PO QAM 05/24/22 09/09/22 History (Linzess) diclofenac sodium 1 % topical gel 2 g topical QID PRN Pain #100 grams 07/18/22 09/12/22 Rx hydrocortisone 1 %-pramoxine 1 % 1 applic NE BID PRN hemorrhoids 07/18/22 09/12/22 Rx rectal foam (Proctofoam HC) #10 grams losartan 25 mg tablet 25 mg PO QAM #60 tabs 07/18/22 09/13/22 Rx Bedside Commode #1 ea 08/04/22 09/12/22 Rx gabapentin 300 mg capsule See Rx Instructions PO DAILY 08/10/22 09/13/22 Rx chronic pain #60 caps Hospital Bed Homecare #1 ea 08/12/22 09/12/22 Rx amiodarone 200 mg tablet 200 mg PO DAILY 09/02/22 09/13/22 History atorvastatin 40 mg tablet 40 mg PO QPM 09/02/22 09/12/22 History chlorhexidine gluconate 0.12 % 15 ml buccal BID 09/02/22 09/12/22 History mouthwash diclofenac sodium 1 % topical gel 4 g topical QID 09/02/22 09/12/22 History (Arthritis Pain (diclofenac)) docusate sodium 100 mg capsule 100 mg PO BID 09/02/22 09/12/22 History fluticasone propionate 100 1 inh inhalation BID 09/02/22 09/12/22 History mcg/actuation blister powder for inhalation furosemide 20 mg tablet 40 mg PO QAM 09/02/22 09/13/22 History metoprolol succinate 25 mg 50 mg PO QAM #60 tabs 09/02/22 09/13/22 Rx tablet,extended release 24 hr mometasone-formoterol HFA 200 2 puff inhalation Q12H 09/02/22 09/12/22 History mcg-5 mcg/actuation aerosol inhaler (Dulera) potassium chloride 20 mEq 20 meq PO BID 09/02/22 09/12/22 History tablet,extended release sennosides 8.6 mg capsule (senna) 8.6 mg PO BID 09/02/22 09/12/22 History warfarin 5 mg tablet 5 mg PO DAILY 09/02/22 09/13/22 History oxycodone 5 mg tablet 5 mg PO Q8H PRN pain #30 tabs 09/09/22 09/12/22 Rx Past Med/Surg History Medical History (Updated 09/13/22 @ 16:01 by Shaji Horton, ) Acute chest pain Asthma exacerbation in COPD Asthma-COPD overlap syndrome Atrial fibrillation Chest pain Chronic diastolic congestive heart failure Chronic low back pain Degeneration of cervical intervertebral disc Diabetes mellitus, type 2 oral medication Dyspnea on exertion so severe pt is wheelchair bound (per [facility] record) External hemorrhoids GERD (gastroesophageal reflux disease) Hemiplegic migraine History of COVID-19 diagnosed 2yrs ago---mild symptoms, no symptoms now History of pulmonary embolism on xarelto Hoarseness of voice Mitral valve insufficiency Obesity SMITA on CPAP Urinary incontinence Vertebral artery stenosis Vitamin D deficiency Surgical History (Updated 09/13/22 @ 14:15 by Marysol Golden PA-C) Facial fracture (2014) WITH RECONSTRUCTION History of bilateral tubal ligation History of cardiac cath X2 STENTS - (~2010, IN [place], [place]). NO STENTS - ([facility] @ ~2014) No stents ([facility] 05/11/2022) - Follows Nita Moon [facility] History of colonoscopy History of esophagogastroduodenoscopy (EGD) History of heart artery stent X2 STENTS (2010) UNSURE OF KIND. NO STENT CARDS PER PT. History of hemorrhoidectomy (~2017) @ [facility] History of mandibular surgery History of transesophageal echocardiography (GEORGETTE) [facility]per report pt has severe mitral valve insufficiency S/P left knee arthroscopy S/p tibial fracture open treatment of Fx with plate/screws, Left leg Status post right foot surgery Family History Mother Breast cancer, Onset Age: 64 Type 2 diabetes mellitus Father Diabetes Coronary heart disease Type 2 diabetes mellitus Myocardial infarction, Onset Age: 52 Family/Other Hypertension sibling Denies family history of Ovarian cancer Social History Smoking Status: Former smoker Tobacco Type: Cigarettes Cigarettes Per Day: 1 pk/day; Second Hand Exposure: No; Hx Alcohol Use: No Hx Substance Use: No Preferred Language: Lebanese Communication Ability: Effective Visual Impairment: No Limitations Supervisor Phosphoric Acid Required: No Beliefs That Will Affect Care: None marital status: Current Living Situation: Alone Current Living Situation Comment: home with How many Children do You have: 5 Other Information That Helps Us Care for You: No Feels Safe at Home: Yes Safety Concerns: Feels Safe At This Time Assistive Devices: Cane, CPAP, Hospital Bed and Scooter/Electric Scooter Review of Systems Review of Systems: Constitutional: No fever/chills, weakness, fatigue, myalgias, anorexia, night sweats Eyes: No diplopia, no worsening or blurred vision ENT: normal hearing, no trouble swallowing Respiratory: pain with inspiration x1 day; No cough, sputum, dyspnea at rest or on exertion Cardiovascular: left breast/rib "squeezing: sensation at rest x2 in past 24 hours; no palpitations Abdomen: nausea w/ vomiting associated with chest pain; no diarrhea or constipation : Denies dysuria, hematuria, increased urgency/frequency, urinary retention Musculoskeletal: No joint pain, calf pain, swelling Neurologic: No weakness, numbness/tingling, or balance problems Psychiatric: No anxiety or depression Skin: No rash or itch Physical Exam Physical Exam: General: awake, alert, no apparent distress Head: Normocephalic, atraumatic ENT: PERRL, EOMI, no pharyngeal exudate, mucous membranes moist Chest: TTP along left anterolateral chest wall; Clear to auscultation, on room air, no adventitious breath sounds Cardiac: Regular rate and rhythm, no murmur, no JVD, normal peripheral pulses, good capillary refill Abdominal: NABS x 4 quadrants, soft, nontender to palpation, no rebound, guarding or tenderness Extremities: Normal inspection, no peripheral edema or erythema, calfs nontender to palpation Psych: Normal mood and affect Neuro: AAO x 3, strength intact bilaterally and rated 5/5, no motor deficits, speech is clear, no peripheral sensory deficits Skin: sternal scar appears to be healing well without evidence of infection; no rash or erythema Results & Data Results & Data ([facility]) Vital Signs (Past 12 Hours) Vital Signs Temp Pulse Pulse Resp BP BP Pulse Ox 09/13/22 11:17 09/13/22 12:30 52 L 25 H 107/48 L 95 09/13/22 11:59 95 09/13/22 10:43 36.7 C 58 L 18 111/78 95 O2 Del Method 09/13/22 11:17 Room Air 09/13/22 12:30 Room Air 09/13/22 11:59 Room Air 09/13/22 10:43 Room Air Laboratory Results Abnormal lab results 09/13/22 09/13/22 Range/Units 11:26 11:26 RBC 3.39 L (3.93-5.22) M/uL Hgb 9.9 L (12.0-16.0) g/dl Hct 32.3 L (34.1-44.9) % MCHC 30.7 L (32.0-36.0) g/dL RDW Std Deviation 47.9 H (36.4-46.3) fL Plt Count 431 H (130-400) K/uL Glucose 114 H (70-99(Fasting)) mg/dl Alkaline Phosphatase 134 H (34-104) U/L Troponin I High Sens 93.2 H* D (0-14) pg/ml Diagnostic Findings Chest X-Ray 09/13/22 11:59 SINGLE VIEW CHEST CLINICAL HISTORY: Atypical chest pain. FINDINGS: An AP, portable, upright chest radiograph is compared to study dated 07/25/2022 and correlated with chest CT dated 05/11/2022. The patient is status post midline sternotomy and cardiac valve surgery. This is new from 07/25/2022. The heart is enlarged. There is mild pulmonary vascular congestion. Atelectasis is noted at the lung bases. The lungs and pleural spaces are otherwise clear. No pneumothorax is seen. The skeletal structures are osteopenic. The bony thorax is grossly intact. IMPRESSION: 1. Cardiomegaly with mild pulmonary vascular congestion. 2. Postsurgical change is new from 07/25/2022. ACT 112: Negative or not required by law. Electronically signed by: Marin De La Rosa M.D. 09/13/2022 12:23 PM ECG Additional Comments: Normal sinus rhythm Nonspecific T wave abnormality Prolonged QT Abnormal ECG When compared with ECG of 25-JUL-2022 21:24, Vent. rate has decreased BY 42 BPM Minimal criteria for Septal infarct are no longer Present. Code Status & VTE Plan Code Status Full Code. Supervising Physician Co-Signing Physician Notes Patient seen and examined, chart reviewed, case discussed with Marysol Golden PA-C and I agree with the assessment and plan as above except as otherwise noted Labs and images reviewed 56-year-old female with past medical history of mitral valve repair 08/25, CAD, type II DM, tobacco use, GERD, SMITA, asthma/COPD overlap who presented with chest pain and who is recommended for an evaluation and cardiac rule out. EKG without acute ST changes. Trope 93 on admission, trended. Does indorse pain aroudn sternum and breast which is exquisetly tender to palpation, ?costocondritis. Repeat EKG without ST/acute changes. Breathing is unlabored, heart rate is regular at bedside. Continue cardiac eval, +APAP and voltarin to chest. CPAP qHS ordered. No additional questions at time of visit, agree with management above PG Care Time/CCT Total # of Minutes Spent Total Time Spent with Patient: Total time spent is greater than 50% in coordination of care (as documented) at patient's floor/unit and/or counseling patient: Coding Level of Care Code INT OBSERVATION CARE 70M LVL 3 Diagnoses Chest pain R07.9 S/P MVR (mitral valve repair) Z98.890 Chronic obstructive pulmonary disease J44.9 Hypertension I10 Hypertension type: essential hypertension Diabetes mellitus, type 2 E11.65; Z79.4 Diabetes mellitus complication status: with hyperglycemia Diabetes mellitus exterminator insulin use: with group home use CHF (congestive heart failure) I50.9 Atrial fibrillation I48.91 (1) Diabetes mellitus, type 2 Diabetes mellitus complication status: with hyperglycemia Diabetes mellitus exterminator insulin use: with group home use Qualified Code(s): E11.65 - Type 2 diabetes mellitus with hyperglycemia; Z79.4 - 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
[2022-09-13 13:45] LABS: INR 1.5 (0.9-1.1); Prothrombin Time 15.2 Seconds (9.0-12.0)
[2022-09-13] MEDS ORDERED: MoRPHine SULFATE 2 MG/ML CARP IV STA ×2 (14:26→23:12)
[2022-09-13] MEDS ORDERED: ONDANSETRON INJ 2 MG/ML 2 ML VIAL IV PRN (16:34)
[2022-09-13] MEDS ORDERED: DEXTROSE 50% 50 ML SYRINGE IV PRN (16:34)
[2022-09-13] MEDS ORDERED: ALUMINUM/MAGNESIUM SUSP 30 ML UDC PO PRN (16:34)
[2022-09-13] MEDS ORDERED: NON-FORMULARY MEDICATION (Mometasone-Formoterol [Dulera] 200-5 mcg/actuation HFA aerosol i INH SCH (16:34)
[2022-09-13] MEDS ORDERED: GLUCOSE 40% GEL 15 GM TUBE PO PRN (16:34)
[2022-09-13] MEDS ORDERED: GLUCOSE 10 TAB/TUBE PO PRN (16:34)
[2022-09-13] MEDS ORDERED: IPRATROPIUM BROMIDE HFA INHALER INH SCH ×2 (16:34→19:00)
[2022-09-13] MEDS ORDERED: BENZONATATE 100 MG CAPSULE PO PRN (16:34)
[2022-09-13] MEDS ORDERED: ALBUT/IPRATROP 3MG/0.5MG NEB 3 ML VIAL NEB PRN (16:34)
[2022-09-13] MEDS ORDERED: GLUCAGON FOR INJ 1 MG VIAL SQ PRN (16:34)
[2022-09-13] MEDS ORDERED: CARBOHYDRATES FOR HYPOGLYCEMIA PO PRN (16:34)
[2022-09-13] MEDS ORDERED: oxyCODONE HCL IR 5 MG TAB (IMMEDIATE RELEASE) PO PRN (16:34)
[2022-09-13] MEDS ORDERED: ALBUTEROL HFA 8 GM INHALER INH PRN (16:34)
[2022-09-13] MEDS ORDERED: ACETAMINOPHEN 325 MG TAB PO PRN (16:34)
[2022-09-13] MEDS: INSULIN ASPART PER UNIT SC SCH ×2 (17:31→20:41)
[2022-09-13] MEDS: DICLOFENAC SOD 1% GEL 100 GM TUBE EXT SCH ×2 (17:56→20:30)
[2022-09-13] MEDS ORDERED: HYDROCORTISONE HC 2.5% CRM 30GM TUBE EXT PRN (18:05)
[2022-09-13] MEDS ORDERED: NITROGLYCERIN 2% OINTMENT 30GM TUBE EXT STA (18:15)
[2022-09-13] MEDS ORDERED: WARFARIN SOD 5 MG TAB PO SCH (20:00)
[2022-09-13] MEDS: POTASSIUM CHLORIDE CRTAB 20 MEQ TABCR PO SCH (20:32)
[2022-09-13] MEDS: SENNA 8.6 MG TAB PO SCH (20:32)
[2022-09-13] MEDS: GABAPENTIN 300 MG CAP PO SCH (20:33)
[2022-09-13] MEDS: PANTOprazole 40 MG TAB PO SCH (20:34)
[2022-09-13] MEDS: DOCUSATE SODIUM 100 MG CAP PO SCH (20:34)
[2022-09-13] MEDS: LANTUS PER UNIT CHARGE SQ SCH (20:41)
[2022-09-13] MEDS ORDERED: BUDESONIDE 0.5 MG/2 ML VIAL (PULMICORT) INH SCH (21:00)
[2022-09-13] MEDS ORDERED: ATORVASTATIN 40 MG TAB PO SCH (21:00)
[2022-09-13] MEDS ORDERED: ARFORMOTEROL TART 15MCG/2ML VIAL INH SCH (21:00)
[2022-09-13] MEDS: NITROGLYCERIN SL 0.4 MG/TAB TAB SL PRN ×2 (23:01→23:06)
[2022-09-13] MEDS ORDERED: LIDOCAINE 5% 1 PATCH TD SCH (23:35)
[2022-09-14] MEDS: DOCUSATE SODIUM 100 MG CAP PO SCH (08:20)
[2022-09-14] MEDS: GABAPENTIN 300 MG CAP PO SCH (08:21)
[2022-09-14] MEDS: SENNA 8.6 MG TAB PO SCH (08:21)
[2022-09-14] MEDS: PANTOprazole 40 MG TAB PO SCH (08:22)
[2022-09-14] MEDS: POTASSIUM CHLORIDE CRTAB 20 MEQ TABCR PO SCH (08:22)
[2022-09-14] MEDS: DICLOFENAC SOD 1% GEL 100 GM TUBE EXT SCH (08:22)
[2022-09-14] MEDS: INSULIN ASPART PER UNIT SC SCH (08:33)
[2022-09-14] MEDS: LANTUS PER UNIT CHARGE SQ SCH (08:34)
[2022-09-14] MEDS ORDERED: LOSARTAN POTASSIUM 25 MG TAB PO SCH (09:00)
[2022-09-14] MEDS ORDERED: FLUTICASONE/VILANTEROL 200/25MCG 14 PUFFS/INHALER INH SCH (09:00)
[2022-09-14] MEDS ORDERED: NICOTINE 21 MG/24 HR TDSY TD SCH (09:00)
[2022-09-14] MEDS ORDERED: FUROSEMIDE 40 MG TAB PO SCH (09:00)
[2022-09-14] MEDS ORDERED: AMIODARONE 200 MG TAB PO SCH (09:00)
[2022-09-14] MEDS ORDERED: LINACLOTIDE 145 MCG CAPSULE PO SCH (09:00)
[2022-09-14] MEDS ORDERED: METOPROLOL SUCC 50MG EXT REL TAB PO SCH (09:00)
[2022-09-14] MEDS ORDERED: UMECLIDINIUM BROMIDE 62.5MCG/BLISTER 7 PUFFS/INHALER INH SCH (09:00)
[2022-09-14] MEDS ORDERED: LIDOCAINE 5% 1 PATCH TD SCH (09:00)
[2022-09-14] MEDS ORDERED: WARFARIN SOD 5 MG TAB PO SCH (09:00)
--- NOTE | 2022-09-14 10:24 | Cardiology Consultation ---
Date of Consultation September 14, 2022 Assessment & Plan (1) Musculoskeletal chest pain: -history strongly suggests a musculoskeletal origin for her discomfort. -she is only 3 weeks out from mitral valve replacement surgery. -her symptoms have resolved at the time of my evaluation today. -stable for hospital discharge. -she is scheduled to be seen in my office on September 21. (2) Elevated troponin: -likely secondary to her recent cardiothoracic surgical procedure. -does not represent an acute coronary syndrome. -had normal coronary arteries at the time of a cardiac catheterization in April. -no further cardiac evaluation necessary. (3) S/P MVR (mitral valve repair): -s/p St. Yasmani's 31 mm mechanical prosthesis on August 25. (4) Hypertension: -adequate control on current regimen. (5) Hyperlipidemia: -continue atorvastatin. History of Present Illness Attending Physician: Zenobia Serna MD History of Present Illness Mrs. Lara is a 56-year-old female admitted yesterday with a chest pain syndrome. This consultation was ordered to assist in her cardiac management. Of note, patient is well known to me from a prior hospitalization. The patient's recent history began on May 06 when she was admitted to our hospital with respiratory failure felt secondary to her asthma and chronic diastolic CHF. During the hospitalization, patient developed a chest pain syndrome and a heart alert was called that she was taken to the cardiac catheterization laboratory urgently. Fortunately, she had angiographically normal coronary arteries. There was no evidence of an intracoronary stent. Unfortunately, she was found to have new, severe mitral regurgitation with mild left ventricular dysfunction. She was referred to CT surgery at [facility] for consideration of a valve replacement. She did undergo mitral valve replacement with a [facility] Judes 31 mm mechanical valve on August 25 a [facility]. Her postoperative course was complicated by an episode of atrial fibrillation requiring use of amiodarone. She was discharged home on August 31 in stable fashion. On the day of presentation, the patient noted a left-sided chest discomfort which was worse with twisting motion and deep inspiration. Her discomfort resolved if she lifted her left breast and moved towards the midline. There were no other associated symptoms such as shortness of breath, nausea, vomiting, or diaphoresis. She has not experienced any exertional chest pain or limiting dyspnea. Currently, patient is resting comfortably in bed and without complaints. Past medical and surgical history 1. Coronary artery disease-clean coronary arteries May 11, 2022 2. ? LCx stent times 2-2011 3. MVR-St Yasmani's, 31 mm, August 25, 2022 3. Hypercholesterolemia 4. Diabetes mellitus 5. Asthma/COPD 6. GERD 7. Anxiety/depression 8. Vitamin-D deficiency 9. Hemiplegia migraine headaches 10. Obesity 11. Obstructive sleep apnea 12. Pulmonary embolism-October 2021 13. History of mandibular surgery 14. Left knee arthroscopy 15. Tubal ligation 16. ORIF left tibia-2014 Social history and lives with her No tobacco alcohol Family history Father at 52 from an [facility] Mother at 64 from breast carcinoma Review of systems A 10 review systems was undertaken and negative except that described above. Allergies Allergy/AdvReac Type Severity Reaction Status Date / Time No Known Allergies Allergy Verified 09/09/22 11:37 Home Medications Medication Instructions Recorded Confirmed Type nicotine 21 mg/24 hr daily 21 mg transdermal QAM #30 ea 01/26/22 09/09/22 Rx transdermal patch (Nicoderm CQ) albuterol sulfate 90 mcg/actuation 2 puff inhalation Q6 PRN Shortness 05/03/22 09/12/22 Rx aerosol inhaler Of Breath Or Wheezing #18 grams ipratropium bromide 17 2 puff inhalation TID #12.9 grams 05/03/22 09/12/22 Rx mcg/actuation HFA aerosol inhaler (Atrovent HFA) ipratropium 0.5 mg-albuterol 3 mg 3 ml NEB Q6H PRN wheezing/SOB/cough 05/06/22 09/12/22 History (2.5 mg base)/3 mL nebulization soln benzonatate 100 mg capsule 200 mg PO TID PRN cough #180 caps 05/13/22 09/12/22 Rx metformin 750 mg tablet,extended 750 mg PO BID #60 tabs 05/13/22 09/12/22 Rx release 24 hr pantoprazole 40 mg tablet,delayed 40 mg PO BID #60 tabs 05/13/22 09/12/22 Rx release umeclidinium 62.5 mcg/actuation 1 inh inhalation QAM #30 ea 05/13/22 09/12/22 Rx blister powder for inhalation (Incruse Ellipta) nitroglycerin 0.4 mg sublingual 0.4 mg sublingual Q5M PRN Chest 05/16/22 09/13/22 History tablet Pain arformoterol 15 mcg/2 mL solution 2 ml inhalation BID #120 mL 05/24/22 09/12/22 Rx for nebulization (Brovana) budesonide 0.5 mg/2 mL suspension 0.5 mg (2 mL) inhalation BID #60 mL 05/24/22 09/12/22 Rx for nebulization linaclotide 145 mcg capsule 145 mcg PO QAM 05/24/22 09/09/22 History (Linzess) diclofenac sodium 1 % topical gel 2 g topical QID PRN Pain #100 grams 07/18/22 09/12/22 Rx hydrocortisone 1 %-pramoxine 1 % 1 applic [place] BID PRN hemorrhoids 07/18/22 09/12/22 Rx rectal foam (Proctofoam HC) #10 grams losartan 25 mg tablet 25 mg PO QAM #60 tabs 07/18/22 09/13/22 Rx Bedside Commode #1 ea 08/04/22 09/12/22 Rx gabapentin 300 mg capsule See Rx Instructions PO DAILY 08/10/22 09/13/22 Rx chronic pain #60 caps Hospital Bed Homecare #1 ea 08/12/22 09/12/22 Rx amiodarone 200 mg tablet 200 mg PO DAILY 09/02/22 09/13/22 History atorvastatin 40 mg tablet 40 mg PO QPM 09/02/22 09/12/22 History chlorhexidine gluconate 0.12 % 15 ml buccal BID 09/02/22 09/12/22 History mouthwash diclofenac sodium 1 % topical gel 4 g topical QID 09/02/22 09/12/22 History (Arthritis Pain (diclofenac)) docusate sodium 100 mg capsule 100 mg PO BID 09/02/22 09/12/22 History fluticasone propionate 100 1 inh inhalation BID 09/02/22 09/12/22 History mcg/actuation blister powder for inhalation furosemide 20 mg tablet 40 mg PO QAM 09/02/22 09/13/22 History metoprolol succinate 25 mg 50 mg PO QAM #60 tabs 09/02/22 09/13/22 Rx tablet,extended release 24 hr mometasone-formoterol HFA 200 2 puff inhalation Q12H 09/02/22 09/12/22 History mcg-5 mcg/actuation aerosol inhaler (Dulera) potassium chloride 20 mEq 20 meq PO BID 09/02/22 09/12/22 History tablet,extended release sennosides 8.6 mg capsule (senna) 8.6 mg PO BID 09/02/22 09/12/22 History warfarin 5 mg tablet 5 mg PO DAILY 09/02/22 09/13/22 History oxycodone 5 mg tablet 5 mg PO Q8H PRN pain #30 tabs 09/09/22 09/12/22 Rx Patient History Medical History (Updated 09/14/22 @ 10:37 by Dwayne Guy MD) Acute chest pain Asthma exacerbation in COPD Asthma-COPD overlap syndrome Atrial fibrillation Chest pain Chronic diastolic congestive heart failure Chronic low back pain Degeneration of cervical intervertebral disc Diabetes mellitus, type 2 oral medication Dyspnea on exertion so severe pt is wheelchair bound (per [facility] record) External hemorrhoids GERD (gastroesophageal reflux disease) Hemiplegic migraine History of COVID-19 diagnosed 2yrs ago---mild symptoms, no symptoms now History of pulmonary embolism on xarelto Hoarseness of voice Mitral valve insufficiency Obesity SMITA on CPAP Urinary incontinence Vertebral artery stenosis Vitamin D deficiency Surgical History (Updated 09/13/22 @ 14:15 by Marysol Golden PA-C) Facial fracture (2014) WITH RECONSTRUCTION History of bilateral tubal ligation History of cardiac cath X2 STENTS - (~2010, IN [place], [place] NO STENTS - ([facility] @ ~2014) No stents ([facility] 05/11/2022) - Follows [facility] - [facility] [place] History of colonoscopy History of esophagogastroduodenoscopy (EGD) History of heart artery stent X2 STENTS (2010) UNSURE OF KIND. NO STENT CARDS PER PT. History of hemorrhoidectomy (~2017) @ [facility] History of mandibular surgery History of transesophageal echocardiography (GEORGETTE) performed 06/21/22 @ [facility]---per report pt has severe mitral valve insufficiency S/P left knee arthroscopy S/p tibial fracture open treatment of Fx with plate/screws, Left leg Status post right foot surgery Family History Mother Breast cancer, Onset Age: 64 Type 2 diabetes mellitus Father Diabetes Coronary heart disease Type 2 diabetes mellitus Myocardial infarction, Onset Age: 52 Family/Other Hypertension sibling Denies family history of Ovarian cancer Social History Smoking Status: Former smoker Tobacco Type: Cigarettes Cigarettes Per Day: 1 pk/day; Second Hand Exposure: No; Hx Alcohol Use: No Hx Substance Use: No Preferred Language: Guyanese Communication Ability: Effective Visual Impairment: No Limitations Pharmacognosist Required: No Beliefs That Will Affect Care: None marital status: Current Living Situation: Alone Current Living Situation Comment: home with How many Children do You have: 5 Other Information That Helps Us Care for You: No Feels Safe at Home: Yes Safety Concerns: Feels Safe At This Time Assistive Devices: Cane, CPAP, Hospital Bed and Scooter/Electric Scooter Physical Exam Physical Exam: In general this is an obese black female lying supine in bed without complaints. HEENT exam is negative. Neck is supple with full carotid upstrokes. No carotid bruits. Jugular is pressure is flat at 90. There is no thyromegaly. Cardiovascular exam reveals a regular rhythm with normal S1 and S2. Heart sounds are crisp. No obvious murmurs. Chest reveals a well-healing midline scar. Lungs are clear without rales, rhonchi, wheezes. Abdomen is obese without bruits. Extremities reveal intact radial artery pulses bilaterally. There is no peripheral edema. Results & Data ([facility]) Vital Signs (Past 12 Hours) Vital Signs Temp Pulse Pulse Resp BP Pulse Ox O2 Del Method 09/14/22 07:54 36.8 C 55 L 18 129/67 99 Nasal Cannula 09/14/22 03:00 36.6 C 52 L 20 118/64 95 CPAP 09/14/22 03:28 53 L 13 96 09/13/22 23:13 59 L 22 97 09/14/22 00:00 51 L O2 Flow Rate 09/14/22 07:54 2 09/14/22 03:00 09/14/22 03:28 2 09/13/22 23:13 2 09/14/22 00:00 Laboratory Results CBC notes hemoglobin of 9.9, hematocrit 32.3, white count 7.99, platelet count 431 1000. Electrolytes note a sodium of 140, potassium 4.3, chloride 102, bicarb 30, BUN 19, creatinine 1.08, glucose of 114. Initial high sensitivity troponin was 93.2 with follow-up values of 95.1, 85.6, 87.7, and 92.4. Diagnostic Findings EKG notes sinus bradycardia and nonspecific ST and T-wave abnormality. Chest x- ray notes mild cardiomegaly and postoperative changes. No acute disease. PG Care Time/CCT Total # of Minutes Spent Total Time Spent with Patient: Total time spent is greater than 50% in coordination of care (as documented) at patient's floor/unit and/or counseling patient: Coding Level of Care Code 30843 Office/OBS Consult Lvl 4 Diagnoses Musculoskeletal chest pain R07.89 Elevated troponin R77.8 S/P MVR (mitral valve repair) Z98.890 Hypertension I10 Hypertension type: essential hypertension Hyperlipidemia E78.5 Hyperlipidemia type: unspecified (1) Hypertension Hypertension type: essential hypertension Qualified Code(s): I10 - Essential (primary) hypertension (2) Hyperlipidemia Hyperlipidemia type: unspecified Qualified Code(s): E78.5 - Hyperlipidemia, unspecified
--- NOTE | 2022-09-14 11:43 | Discharge Summary ---
Date of Service September 14, 2022 Admission HPI Per Admitting Provider Debmalena Lara is a 56-year-old female past medical history significant for CAD and mitral valve repair on 08/25 at [facility] complicated by new onset a fib during hospitalization, as well as asthma, diabetes, hypertension, and hyperlipidemia who is presenting today with chest pain. Since discharge from [facility], she has had some mild chest pressure at/around the site of her incision which she has been able to control at home with medication. Last evening, she noticed left chest pain under her left breast which she describes as a squeezing sensation. Shortly after onset she did become nauseous and vomited up several meals she had throughout the night. The pain is worse with twisting movements, sitting up too quickly, and breathing deeply. She feels short of breath as it is painful for her to take deep breaths and, otherwise has not had any shortness of breath or orthopnea since her mitral valve was replaced. She took nitro at home for this pain, which alleviated it, however woke with it again this morning and presented to the ED for further evaluation. Upon presentation to the ED, she is mildly bradycardic with HR in 50s, otherwise vital signs within normal limits and stable. Initial troponin 93. Labs otherwise notable for normocytic anemia, with an Hgb of 9.9, decreased from 12.6 one month ago. CXR shows cardiomegaly with mild pulmonary vascular congestion and postsurgical changes from recent valve replacement. Principal Diagnosis musculoskeletal chest pain Discharge Exam The patient is awake, alert and oriented 3, well developed and well nourished, normocephalic and atraumatic, lying in bed and in no acute distress. HEENT--PERRL, EOMI, mucous membranes and oropharynx mildly dry Neck--supple. No JVD. No bruits. Thyroid normal, trachea midline, no adenopathy. Heart--normal S1 and S2. No murmurs, rubs or gallops. Lungs--clear bilaterally, no respiratory distress, no accessory muscle use. Abdomen--normal bowel sounds and soft. Mild epigastric and left sided abdominal pain Extremities--no cyanosis or clubbing. No edema. Dermatologic--normal skin turgor, normal color, no abnormal lymph nodes, no rash. Neurologic--cranial nerves II through XII grossly intact. Rheumatologic--normal range of motion. Psychiatric--normal affect. Discharge Data Allergies Allergy/AdvReac Type Severity Reaction Status Date / Time No Known Allergies Allergy Verified 09/09/22 11:37 Consultations 09/13/22 13:14 ED Decision to Admit Stat 09/13/22 16:34 Consult Cardiology Routine Hospital Course (1) Chest pain: - 2 episodes of left rib/breast pain w/in the past 24 hours associated with pain on inspiration, nausea, vomiting. - s/p MVR at [facility] 08/25. - Initial trop 93, trended down - Nitroglycerin, morphine prn for chest pain; will try lidocaine patches with Tylenol and NSAIDs for suspected rib/MSK pain. (2) S/P MVR (mitral valve repair): - 31 mm [employer] Yasmani mechanical valve, performed on 08/25 at [facility]. - Complicated by new onset A. fib, NSR achieved with IV and oral amiodarone. - Started on Coumadin for A. fib and mechanical valve. - Continues to have mild postoperative/surgical site discomfort, unchanged today. (3) Chronic obstructive pulmonary disease: - Continue home inhalers. - No evidence of acute exacerbation. (4) Hypertension: - Continue losartan, metoprolol. (5) Diabetes mellitus, type 2: - Hold metformin. -Weight based basal/bolus insulin with Accuchecks ACHS. (6) CHF (congestive heart failure): - Continue Lasix 40 mg daily. - Echo in AM. - Echo 06/21/22: EF 35-39%, diffuse hypokinesis, severe MR (7) Atrial fibrillation: - New onset earlier this month during hospitalization for MVR. - NSR today. - Continue on amiodarone and warfarin. (8) Elevated troponin: Most likely due to demand ischemia Trop has trended down No EKG chabges Plan d/c home Total Time Total Time Spent Total Time Spent (In Minutes): 35 min Discharge Plan Discharge Items Patient Disposition: Home - Self-Care Reason For Visit: CHEST PAIN Discharge Diagnosis: musculoskeletal chest pain Activity: Resume your previous activity Non-emergency contact: Primary Care Provider and Optometric Technician Call non-emergency contact if: you have any medication questions Follow-up/Referrals: James Hendrix DO [Primary Care Provider] - 09/19/22 11:30 am Diet: Regular Addtl Attending Provider Instructions: please make appointment to follow up with your regular PCP and rock lather Pending Studies at Discharge: No Stand-Alone Forms: My [facility] [employer], Smoking Cessation Medications and DC Order Prescriptions: Continued albuterol sulfate 90 mcg/actuation HFA aerosol inhaler 2 puff INHALATION Q6 PRN (Reason: Shortness Of Breath Or Wheezing) Qty: 18 5RF Atrovent HFA 17 mcg/actuation HFA aerosol inhaler 2 puff INHALATION TID Qty: 12.9 5RF diclofenac sodium 1 % gel 2 g TOPICAL QID PRN (Reason: Pain) Qty: 100 3RF Proctofoam HC 1-1 % foam 1 applic [place] BID PRN (Reason: hemorrhoids) Qty: 10 0RF losartan 25 mg tablet 25 mg PO QAM Qty: 60 5RF gabapentin 300 mg capsule See Rx Instructions PO DAILY Qty: 60 2RF Rx Instructions: 300mg poqam for 1 week then increase to 300mg bid orally daily; (DME) [facility] See Rx Instructions .Route Qty: 1 0RF Rx Instructions: As directed-HOSPITAL BED, LENGTH OF NEED 99 MONTHS, DX CODE; Z98.890 amiodarone 200 mg tablet 200 mg PO DAILY furosemide 20 mg tablet 40 mg PO QAM potassium chloride 20 mEq tablet extended release 20 meq PO BID atorvastatin 40 mg tablet 40 mg PO QPM metoprolol succinate 25 mg tablet extended release 24 hr 50 mg PO QAM Qty: 60 5RF fluticasone propionate 100 mcg/actuation blister with device 1 inh inhalation BID Dulera 200-5 mcg/actuation HFA aerosol inhaler 2 puff inhalation Q12H chlorhexidine gluconate 0.12 % mouthwash 15 ml buccal BID diclofenac sodium [Arthritis Pain (diclofenac)] 1 % gel 4 g topical QID Rx Instructions: apply to single knee, ankle, foot; for foot includes sole/toes/top of foot docusate sodium 100 mg capsule 100 mg PO BID senna 8.6 mg capsule 8.6 mg PO BID nitroglycerin 0.4 mg tablet, sublingual 0.4 mg sublingual Q5M PRN (Reason: Chest Pain) Rx Instructions: do not exceed 3 doses per episode budesonide 0.5 mg/2 mL suspension for nebulization 0.5 mg inhalation BID Qty: 60 2RF arformoterol [Brovana] 15 mcg/2 mL solution for nebulization 2 ml inhalation BID Qty: 120 2RF (DME) Bedside Commode Misc See Rx Instructions .Route Qty: 1 0RF Rx Instructions: As directed warfarin 5 mg tablet 5 mg PO DAILY Rx Instructions: takes in evening at 8 nicotine [Nicoderm CQ] 21 mg/24 hr patch 24 hour 21 mg transdermal QAM Qty: 30 0RF oxycodone 5 mg tablet 5 mg PO Q8H PRN (Reason: pain) Qty: 30 0RF ipratropium-albuterol 0.5 mg-3 mg(2.5 mg base)/3 mL solution for nebulization 3 ml NEB Q6H PRN (Reason: wheezing/SOB/cough) benzonatate 100 mg Capsule 200 mg PO TID PRN (Reason: cough) Qty: 180 0RF Incruse Ellipta 62.5 mcg/actuation Blister With Device 1 inh inhalation QAM Qty: 30 0RF pantoprazole 40 mg Tablet,Delayed Release (Dr/Ec) 40 mg PO BID Qty: 60 0RF Rx Instructions: New dose of this medication metformin 750 mg tablet extended release 24 hr 750 mg PO BID Qty: 60 0RF Linzess 145 mcg capsule 145 mcg PO QAM Discharge Orders: Discharge Order (Routine); Ordered 09/14/22 Ordered By: Zenobia Serna Admission Data Admit Date/Time: 09/13/22 13:47 Attending Provider: Zenobia Serna Admit Provider: Juanito Moise Primary Care Provider: James Hendrix Other Providers: Juanito Moise ; Mor Solis Other Interventions: Discharge Summary Assessment (RN) Last Done: 09/14/22 11:32 Coding Level of Care Code D/C DAY MANAGEMENT >30 MINS Diagnoses Chest pain R07.9 S/P MVR (mitral valve repair) Z98.890 Chronic obstructive pulmonary disease J44.9 Hypertension I10 Hypertension type: essential hypertension Diabetes mellitus, type 2 E11.65; Z79.4 Diabetes mellitus private advisor insulin use: with usp use Diabetes mellitus complication status: with hyperglycemia CHF (congestive heart failure) I50.9 Atrial fibrillation I48.91 Elevated troponin R77.8 Time Spent (min) 35
--- NOTE | 2022-09-14 18:32 | XCELERA ---
[id number]
--- NOTE | 2022-09-15 06:18 | Electrocardiogram Report ---
Test Reason : Blood Pressure : / mmHG Vent. Rate : 060 BPM Atrial Rate : 060 BPM P-R Int : 144 ms QRS Dur : 080 ms QT Int : 480 ms P-R-T Axes : -13 009 098 degrees QTc Int : 480 ms Normal sinus rhythm Nonspecific T wave abnormality Prolonged QT Abnormal ECG When compared with ECG of 25-JUL-2022 21:24, Vent. rate has decreased BY 42 BPM Minimal criteria for Septal infarct are no longer Present Confirmed by Mor Solis ([id number]) on 09/15/2022 6:17:31 AM Referred By: Confirmed By:Mor Solis
--- NOTE | 2022-09-15 06:38 | Electrocardiogram Report ---
Test Reason : Blood Pressure : / mmHG Vent. Rate : 051 BPM Atrial Rate : 051 BPM P-R Int : 156 ms QRS Dur : 082 ms QT Int : 528 ms P-R-T Axes : 054 089 099 degrees QTc Int : 486 ms Sinus bradycardia Nonspecific T wave abnormality Prolonged QT Abnormal ECG When compared with ECG of 13-SEP-2022 11:19, Questionable change in QRS axis Confirmed by Mor Solis ([id number]) on 09/15/2022 6:37:49 AM Referred By: REFERRED SELF Confirmed By:Mor Solis
--- NOTE | 2022-09-15 06:45 | Electrocardiogram Report ---
Test Reason : Blood Pressure : / mmHG Vent. Rate : 056 BPM Atrial Rate : 056 BPM P-R Int : 150 ms QRS Dur : 080 ms QT Int : 490 ms P-R-T Axes : -17 028 093 degrees QTc Int : 472 ms Sinus bradycardia T wave abnormality, consider lateral ischemia Abnormal ECG When compared with ECG of 13-SEP-2022 18:36, Questionable change in QRS axis T wave inversion less evident in Lateral leads Confirmed by Mor Solis ([id number]) on 09/15/2022 6:44:40 AM Referred By: REFERRED SELF Confirmed By:Mor Solis
== END 2022-09-14 12:30 | disposition home or self-care (01) ==
LOC: ED 11:13 → 2N 11:13 → SUATTDRO 13:47 → 2N 16:01

== ENCOUNTER 2022-09-23 18:50 | Inpatient (IN) ==
[2022-09-23] MEDS ORDERED: ALBUT/IPRATROP 3MG/0.5MG NEB 3 ML VIAL NEB STA (19:47)
[2022-09-23] MEDS ORDERED: guaiFENesin 600 MG TABCR PO STA (19:48)
--- NOTE | 2022-09-23 20:00 | Emergency Department Note ---
Impression & Plan CHF (congestive heart failure), History of mitral valve replacement with mechanical valve, Chronic obstructive pulmonary disease, Hyperglycemia due to type 2 diabetes mellitus ED Provider Note NAME: CYRUS MUELLER AGE: 56 SEX: F ARRIVES VIA: Walk-In INFORMANT: Patient ED PROVIDER(S): Chino James MD CHIEF COMPLAINT: Shortness of breath PLAN: Disposition: Admit MEDICAL DECISION MAKING: The patient is a pleasant 56-year-old woman with a past medical history of COPD, asthma, pulmonary embolism on anticoagulation, SMITA on home CPAP, diastolic heart failure, NIDDM 2, recent mechanical mitral valve replacement on warfarin, atrial fibrillation, hypertension, hyperlipidemia who presents to the emergency department accompanied by her as a walk-in for evaluation of symptoms of chest pain/tightness and shortness of breath that has been evolving since yesterday where she reports being told by her visiting nurse that she did not "look well today". Her glucose she says was in the 100s this morning but prior to eating dinner tonight was in the 500s. She does admit that she missed her metformin dose in the morning. She reports feeling feverish but denies subjective fevers. She reports she is recently been put on antibiotics for infection of a trocar site on her upper abdomen. She reports generalized malaise/weakness and body aches. She denies nausea, vomiting, diarrhea or urinary symptoms. She reports she does feel as though she has been retaining fluid and her weight has been up and so her diuretic has been increased. She reports she has been taking her nebulizers at home and this does help her symptoms for a time. On arrival the patient is dyspneic appearing but no acute distress, afebrile with stable vital signs. O2 saturation is 98% on room air though with mild dyspnea. She has mild bilateral lower extremity edema. She has mild rhonchi and wheezing of bilateral lower lung mohr. EKG without overt acute ischemia. CXR with vascular congestion and mild pulmonary edema. WBC and platelets within normal limits. H/H similar to prior values. INR 1.3 in the setting of being on Lovenox bridging to warfarin. VBG unremarkable. Chemistry without metabolic acidosis. Initial glucose 400. Improved to 280s following 10 units of regular insulin. Lactic acid 3.2 improved to 2.8. High- sensitivity troponin 27.7, nonspecific with BNP 1200 increased from prior values in the setting of history of CHF with development of systolic dysfunction since her last BNP in April. UA without convincing evidence of infection with epithelial cells present. Respiratory viral panel/bio fire was negative. CTA of the chest was performed and was negative for PE or focal infiltrates. CT of the abdomen pelvis was negative for acute abnormalities. Upon reevaluation patient did report improvement after treatment with DuoNeb and guaifenesin for component of bronchospasm on exam. Given chest x-ray with evidence of hypervolemia in the setting of the patient's report of fluid retention and increased weight gain she was ordered for IV Lasix. She agrees with plan for admission for further management. Case was discussed with NUHA Florez hospitalist, who will evaluate the patient for admission. Triage Nursing notes reviewed and agree them. Prior medical records reviewed Vital Signs: reviewed Differential diagnosis: Reactive airway disease, pneumonia, pneumothorax, COPD, CHF, infections, cardiac ischemia, pulmonary embolism, musculoskeletal, gastrointestinal, as well as other pathologies. ER treatment provided: See below. Diagnostics interpreted by me: ECG: Atrial fibrillation, 54 bpm, no ectopy, ST and T wave abnormality, no overt ST elevation, QTC 476, QRS 106. Cardiac Monitoring: An order for continuous cardiac monitoring was placed and demonstrated Atrial fibrillation, 54 bpm, no ectopy. Laboratory studies: See below Imaging studies: See below Consultation(s): NUHA Florez hospitalist HPI: The patient is a pleasant 56-year-old woman with a past medical history of COPD, asthma, pulmonary embolism on anticoagulation, SMITA on home CPAP, diastolic heart failure, NIDDM 2, recent mechanical mitral valve replacement on warfarin, atrial fibrillation, hypertension, hyperlipidemia who presents to the emergency department accompanied by her as a walk-in for evaluation of symptoms of chest pain/tightness and shortness of breath that has been evolving since yesterday where she reports being told by her visiting nurse that she did not "look well today". Her glucose she says was in the 100s this morning but prior to eating dinner tonight was in the 500s. She does admit that she missed her me tformin dose in the morning. She reports feeling feverish but denies subjective fevers. She reports she is recently been put on antibiotics for infection of a trocar site on her upper abdomen. She reports generalized malaise/weakness and body aches. She denies nausea, vomiting, diarrhea or urinary symptoms. She reports she does feel as though she has been retaining fluid and her weight has been up and so her diuretic has been increased. She reports she has been taking her nebulizers at home and this does help her symptoms for a time. ROS: See above HPI for pertinent positives & negatives. A total of 10 systems reviewed and were otherwise negative. VITALS:See Below PHYSICAL EXAMINATION: GENERAL: Awake, alert, mild dyspneic-appearing, in no distress HENT: Normocephalic, atraumatic. Oropharynx unremarkable. EYES: Normal conjunctiva. Sclera non-icteric. NECK: Supple. No nuchal rigidity. FROM. No JVD. RESPIRATORY: Mild rhonchi and wheezing of bilateral lower lung mohr. CARDIAC: Regular rate, normal rhythm. Extremities warm and well perfused. Pulses equal. ABDOMEN: Soft, non-distended. No tenderness to palpation. No rebound or guarding. ~2cm upper abdominal ulceration with mild surrounding erythema without active discharge, fluctuance, induration, or crepitus. RECTAL: Deferred. MUSCULOSKELETAL: Chest examination reveals no tenderness. The back is symmetrical on inspection without obvious abnormality. There is no CVA tenderness to palpation. No joint edema. LOWER EXTREMITIES: Calves are equal size bilaterally and non-tender. Mild BLE edema. No discoloration. NEURO: Normal sensorium. No sensory or motor deficits noted. SKIN: No rash or jaundice noted. Chino James MD Past Med/Surg History Medical History Acute chest pain Asthma exacerbation in COPD Asthma-COPD overlap syndrome Atrial fibrillation Chest pain Chronic diastolic congestive heart failure Chronic low back pain Degeneration of cervical intervertebral disc Diabetes mellitus, type 2 oral medication Dyspnea on exertion so severe pt is wheelchair bound (per [facility] record) External hemorrhoids GERD (gastroesophageal reflux disease) Hemiplegic migraine History of COVID-19 diagnosed 2yrs ago---mild symptoms, no symptoms now History of pulmonary embolism on xarelto Hoarseness of voice Mitral valve insufficiency Obesity SMITA on CPAP Urinary incontinence Vertebral artery stenosis Vitamin D deficiency Surgical History Facial fracture (2014) WITH RECONSTRUCTION History of bilateral tubal ligation History of cardiac cath X2 STENTS - (~2010, IN [place], [place]). NO STENTS - ([facility] @ ~2014) No stents ([facility] 05/11/2022) - Follows Nita Moon - [facility] – [place] History of colonoscopy History of esophagogastroduodenoscopy (EGD) History of heart artery stent X2 STENTS (2010) UNSURE OF KIND. NO STENT CARDS PER PT. History of hemorrhoidectomy (~2017) @ [facility] History of mandibular surgery History of transesophageal echocardiography ([facility]) performed 06/21/22 @ [facility]---per report pt has severe mitral valve insufficiency S/P left knee arthroscopy S/P MVR (mitral valve repair) S/p tibial fracture open treatment of Fx with plate/screws, Left leg Status post right foot surgery Family History Mother Breast cancer, Onset Age: 64 Type 2 diabetes mellitus Father Diabetes Coronary heart disease Type 2 diabetes mellitus Myocardial infarction, Onset Age: 52 Family/Other Hypertension sibling Denies family history of Ovarian cancer Social History Smoking Status: Former smoker Tobacco Type: Cigarettes Cigarettes Per Day: 1 pk/day; Second Hand Exposure: No; Hx Alcohol Use: No Hx Substance Use: No Preferred Language: [place] Communication Ability: Effective Visual Impairment: No Limitations Organ Teacher Required: No Beliefs That Will Affect Care: None marital status: Current Living Situation: Alone Current Living Situation Comment: home with How many Children do You have: 5 Feels Safe at Home: Yes Assistive Devices: Cane, CPAP, Hospital Bed and Scooter/Electric Scooter Allergies Allergies Allergy/AdvReac Type Severity Reaction Status Date / Time No Known Allergies Allergy Verified 09/21/22 10:21 Home Meds Home Medications Medication Instructions Recorded Confirmed ipratropium 0.5 mg-albuterol 3 mg 3 ml NEB Q6H PRN wheezing/SOB/cough 05/06/22 09/24/22 (2.5 mg base)/3 mL nebulization soln nitroglycerin 0.4 mg sublingual 0.4 mg sublingual Q5M PRN Chest 05/16/22 09/24/22 tablet Pain amiodarone 200 mg tablet 200 mg PO QAM 09/02/22 09/24/22 atorvastatin 40 mg tablet 40 mg PO QPM 09/02/22 09/24/22 chlorhexidine gluconate 0.12 % 15 ml buccal BID 09/02/22 09/24/22 mouthwash diclofenac sodium 1 % topical gel 4 g topical QID 09/02/22 09/24/22 (Arthritis Pain (diclofenac)) fluticasone propionate 100 1 inh inhalation BID 09/02/22 09/24/22 mcg/actuation blister powder for inhalation mometasone-formoterol HFA 200 2 puff inhalation Q12H 09/02/22 09/24/22 mcg-5 mcg/actuation aerosol inhaler (Dulera) potassium chloride 20 mEq 20 meq PO QAM 09/02/22 09/24/22 tablet,extended release warfarin 5 mg tablet 5 mg PO DAILY 09/22/22 09/24/22 metoprolol succinate 25 mg 25 mg PO QAM 09/23/22 09/23/22 tablet,extended release 24 hr fluticasone furoate 100 1 inh inhalation DAILY 09/24/22 09/24/22 mcg-vilanterol 25 mcg/dose inhalation powder (Breo Ellipta) gabapentin 300 mg capsule 300 mg PO BID chronic pain 09/24/22 09/24/22 metformin 750 mg tablet,extended 750 mg PO AMHS 09/24/22 09/24/22 release 24 hr pantoprazole 40 mg tablet,delayed 40 mg PO AMHS 09/24/22 09/24/22 release vitamin with calcium 1 tab PO QAM 09/24/22 09/24/22 no.72-iron 27 mg-folic acid 1 mg tablet ( Vitamins Plus Low Iron) sennosides 8.6 mg tablet (senna) 8.6 mg PO AMHS 09/24/22 09/24/22 Previous Rx's Medication Instructions Recorded nicotine 21 mg/24 hr daily 21 mg transdermal QAM #30 ea 01/26/22 transdermal patch (Nicoderm CQ) albuterol sulfate 90 mcg/actuation 2 puff inhalation Q6 PRN Shortness 05/03/22 aerosol inhaler Of Breath Or Wheezing #18 grams ipratropium bromide 17 2 puff inhalation TID #12.9 grams 05/03/22 mcg/actuation HFA aerosol inhaler (Atrovent HFA) benzonatate 100 mg capsule 200 mg PO TID PRN cough #180 caps 05/13/22 hydrocortisone 1 %-pramoxine 1 % 1 applic ID BID PRN hemorrhoids 07/18/22 rectal foam (Proctofoam HC) #10 grams losartan 25 mg tablet 25 mg PO QAM #60 tabs 07/18/22 Bedside Commode #1 ea 08/04/22 Hospital Bed Homecare #1 ea 08/12/22 oxycodone 5 mg tablet 5 mg PO Q8H PRN pain #30 tabs 09/09/22 cyclobenzaprine 5 mg tablet 5 mg PO TID PRN muscle spasm #30 09/19/22 tabs furosemide 40 mg tablet 40 mg PO QAM #30 tabs 09/19/22 clindamycin HCl 300 mg capsule 300 mg PO Q6H #28 caps 09/20/22 enoxaparin 100 mg/mL subcutaneous 100 mg subcut Q12H #10 syringes 09/22/22 syringe Results & Data (ED) Vital Signs Vital Signs - 24 hr 09/23/22 19:13 09/23/22 19:42 09/23/22 19:42 Temperature 36.5 C Temperature Source Temporal Artery Scan Pulse Rate 56 L Pulse Rate [Apical] Pulse Rate from SpO2 Sensor Respiratory Rate 22 Respiratory Effort / Characteristics Non-Labored Spontaneous Non-Labored Respiratory Depth Normal Normal Respiratory Pattern Blood Pressure 152/72 H Blood Pressure [Right Arm] Blood Pressure Mean 98 Blood Pressure Mean [Right Arm] Blood Pressure Position [Right Arm] Pulse Oximetry 98 97 97 Oxygen Delivery Method Room Air Room Air Room Air Sepsis New/Unexplained Change in Mental Status N/A Sepsis Action Taken by Nursing No Action Required 09/23/22 19:42 09/23/22 19:21 09/23/22 19:21 Temperature Temperature Source Pulse Rate Pulse Rate [Apical] Pulse Rate from SpO2 Sensor Respiratory Rate 21 Respiratory Effort / Characteristics Non-Labored Spontaneous Respiratory Depth Respiratory Pattern Blood Pressure Blood Pressure [Right Arm] Blood Pressure Mean Blood Pressure Mean [Right Arm] Blood Pressure Position [Right Arm] Pulse Oximetry 97 97 Oxygen Delivery Method Room Air Room Air Sepsis New/Unexplained Change in Mental Status Sepsis Action Taken by Nursing 09/23/22 21:00 09/23/22 23:15 09/24/22 00:10 Temperature Temperature Source Pulse Rate 50 L 50 L Pulse Rate [Apical] 57 L Pulse Rate from SpO2 Sensor 49 L Respiratory Rate 18 31 H 22 Respiratory Effort / Characteristics Respiratory Depth Respiratory Pattern Blood Pressure 149/80 H Blood Pressure [Right Arm] Blood Pressure Mean 103 Blood Pressure Mean [Right Arm] Blood Pressure Position [Right Arm] Pulse Oximetry 96 95 95 Oxygen Delivery Method Room Air Room Air Sepsis New/Unexplained Change in Mental Status Sepsis Action Taken by Nursing 09/24/22 01:38 Temperature Temperature Source Pulse Rate Pulse Rate [Apical] 53 L Pulse Rate from SpO2 Sensor Respiratory Rate 20 Respiratory Effort / Characteristics Non-Labored Spontaneous Respiratory Depth Normal Respiratory Pattern Regular Blood Pressure Blood Pressure [Right Arm] 149/67 H Blood Pressure Mean Blood Pressure Mean [Right Arm] 94 Blood Pressure Position [Right Arm] Lying Pulse Oximetry 97 Oxygen Delivery Method Room Air Sepsis New/Unexplained Change in Mental Status Sepsis Action Taken by Nursing Laboratory Data Attestation: I reviewed the patient's lab results. Result diagrams: 09/23/22 21:06 09/23/22 21:06 Lab Results 09/23/22 09/23/22 09/23/22 Range/Units 19:17 19:23 21:06 WBC 7.46 (4.8-10.8) K/ul RBC 3.35 L (3.93-5.22) M/uL Hgb 10.0 L (12.0-16.0) g/dl Hct 32.3 L (34.1-44.9) % MCV 96.4 (80.0-100.0) fL MCH 29.9 (25.0-34.0) pg MCHC 31.0 L (32.0-36.0) g/dL RDW Std Deviation 49.0 H (36.4-46.3) fL RDW Coeff of Majo 13.7 (11.5-14.5) % Plt Count 291 (130-400) K/uL MPV 10.8 (9.4-12.3) fL Immature Gran % (Auto) 0.5 % Neut % (Auto) 81.8 % Lymph % (Auto) 16.1 % [place] % (Auto) 1.5 % Eos % (Auto) 0.0 % Baso % (Auto) 0.1 % Neut # (Auto) 6.10 (1.4-6.5) K/uL Lymph # (Auto) 1.20 (1.2-3.4) K/uL [place] # (Auto) 0.11 L (0.24-0.82) K/uL Eos # (Auto) 0.00 (0-0.50) K/uL Baso # (Auto) 0.01 (0-0.2) K/uL Immature Gran # (Auto) 0.04 H (0.00-0.02) K/uL PT (9.0-12.0) Seconds INR (0.9-1.1) APTT (21.0-31.0) Seconds PTT Ratio VBG pH (7.36-7.41) VBG pCO2 (38-50) mmHg VBG pO2 mmHg VBG HCO3 mmol/L VBG O2 Saturation % VBG Base Excess mEq/L Sodium (136-145) mmol/L Potassium (3.5-5.1) mmol/L Chloride (98-107) mmol/L Carbon Dioxide (21-32) mmol/L Anion Gap (3-11) BUN (6-23) mg/dl Creatinine (0.6-1.2) mg/dl Est Cr Clr Drug Dosing Est GFR ( Amer) ml/min Est GFR (Non-Af Amer) ml/min BUN/Creatinine Ratio (10-20) Glucose (70-99(Fasting)) mg/dl POC Glucose 479 H* 467 H* (70-99) mg/dl Osmolality (280-300) mOsm/kg Lactate (0.4-2.0) mmol/L Calcium (8.5-10.1) mg/dl Magnesium (1.7-2.4) mg/dl Total Bilirubin (0.2-1.0) mg/dl AST (13-39) U/L ALT (7-52) U/L Alkaline Phosphatase (34-104) U/L Troponin I High Sens (0-14) pg/ml B-Natriuretic Peptide (0-100) pg/ml Total Protein (6.0-8.3) gm/dl Albumin (3.4-5.0) gm/dl Globulin (2.5-4.0) gm/dl Albumin/Globulin Ratio (0.9-2) Procalcitonin (0-0.5) ng/ml Urine Color Urine Appearance (Clear) Urine pH (4.5-7.5) Ur Specific [place] (1.000-1.030) Urine Protein (Negative) Urine Glucose (UA) (Negative) Urine Ketones (Negative) Urine Blood (Negative) Urine Nitrite (Negative) Urine Bilirubin (Negative) Urine Urobilinogen (Negative) Ur Leukocyte Esterase (Negative) Urine WBC (Auto) (0-5) /hpf Urine RBC (Auto) (0-4) /hpf U Hyaline Cast (Auto) (0-5) /lpf U Epithel Cells (Auto) (0-5) /lpf Urine Bacteria (Auto) (Negative) Adenovirus (PCR) (NotDetected) B. pertussis DNA (PCR) (NotDetected) B.parapertussis DNA PCR (NotDetected) C. pneumoniae DNA (PCR) (NotDetected) Coronavirus OC43 (PCR) (NotDetected) Coronavirus HKU1 (PCR) (NotDetected) Coronavirus 229E (PCR) (NotDetected) SARS-CoV-2 (PCR) (NotDetected) Coronavirus NL63 (PCR) (NotDetected) Human Metapneumovir PCR (NotDetected) Influenza Type A (PCR) (NotDetected) Influenza Type B (PCR) (NotDetected) M. pneumoniae (PCR) (NotDetected) Parainfluenza 1 (PCR) (NotDetected) Parainfluenza 2 (PCR) (NotDetected) Parainfluenza 3 (PCR) (NotDetected) Parainfluenza 4 (PCR) (NotDetected) RSV (PCR) (NotDetected) Entero/Rhino (PCR) (NotDetected) 09/23/22 09/23/22 09/23/22 Range/Units 21:06 21:06 21:06 WBC (4.8-10.8) K/ul RBC (3.93-5.22) M/uL Hgb (12.0-16.0) g/dl Hct (34.1-44.9) % MCV (80.0-100.0) fL MCH (25.0-34.0) pg MCHC (32.0-36.0) g/dL RDW Std Deviation (36.4-46.3) fL RDW Coeff of Majo (11.5-14.5) % Plt Count (130-400) K/uL MPV (9.4-12.3) fL Immature Gran % (Auto) % Neut % (Auto) % Lymph % (Auto) % [place] % (Auto) % Eos % (Auto) % Baso % (Auto) % Neut # (Auto) (1.4-6.5) K/uL Lymph # (Auto) (1.2-3.4) K/uL [place] # (Auto) (0.24-0.82) K/uL Eos # (Auto) (0-0.50) K/uL Baso # (Auto) (0-0.2) K/uL Immature Gran # (Auto) (0.00-0.02) K/uL PT 13.9 H (9.0-12.0) Seconds INR 1.3 H (0.9-1.1) APTT 27.3 (21.0-31.0) Seconds PTT Ratio 1.0 VBG pH (7.36-7.41) VBG pCO2 (38-50) mmHg VBG pO2 mmHg VBG HCO3 mmol/L VBG O2 Saturation % VBG Base Excess mEq/L Sodium 137 (136-145) mmol/L Potassium 4.6 (3.5-5.1) mmol/L Chloride 107 (98-107) mmol/L Carbon Dioxide 20 L (21-32) mmol/L Anion Gap 10 (3-11) BUN 23 (6-23) mg/dl Creatinine 0.91 (0.6-1.2) mg/dl Est Cr Clr Drug Dosing Not Reportable Est GFR ( Amer) 81.2 ml/min Est GFR (Non-Af Amer) 70.0 ml/min BUN/Creatinine Ratio 25.3 H (10-20) Glucose 413 H* (70-99(Fasting)) mg/dl POC Glucose (70-99) mg/dl Osmolality (280-300) mOsm/kg Lactate 3.2 H* (0.4-2.0) mmol/L Calcium 9.3 (8.5-10.1) mg/dl Magnesium 2.2 (1.7-2.4) mg/dl Total Bilirubin 0.3 (0.2-1.0) mg/dl AST 14 (13-39) U/L ALT 16 (7-52) U/L Alkaline Phosphatase 109 H (34-104) U/L Troponin I High Sens 27.7 H D (0-14) pg/ml B-Natriuretic Peptide (0-100) pg/ml Total Protein 7.3 (6.0-8.3) gm/dl Albumin 3.7 (3.4-5.0) gm/dl Globulin 3.6 (2.5-4.0) gm/dl Albumin/Globulin Ratio 1.0 (0.9-2) Procalcitonin (0-0.5) ng/ml Urine Color Urine Appearance (Clear) Urine pH (4.5-7.5) Ur Specific [place] (1.000-1.030) Urine Protein (Negative) Urine Glucose (UA) (Negative) Urine Ketones (Negative) Urine Blood (Negative) Urine Nitrite (Negative) Urine Bilirubin (Negative) Urine Urobilinogen (Negative) Ur Leukocyte Esterase (Negative) Urine WBC (Auto) (0-5) /hpf Urine RBC (Auto) (0-4) /hpf U Hyaline Cast (Auto) (0-5) /lpf U Epithel Cells (Auto) (0-5) /lpf Urine Bacteria (Auto) (Negative) Adenovirus (PCR) (NotDetected) B. pertussis DNA (PCR) (NotDetected) B.parapertussis DNA PCR (NotDetected) C. pneumoniae DNA (PCR) (NotDetected) Coronavirus OC43 (PCR) (NotDetected) Coronavirus HKU1 (PCR) (NotDetected) Coronavirus 229E (PCR) (NotDetected) SARS-CoV-2 (PCR) (NotDetected) Coronavirus NL63 (PCR) (NotDetected) Human Metapneumovir PCR (NotDetected) Influenza Type A (PCR) (NotDetected) Influenza Type B (PCR) (NotDetected) M. pneumoniae (PCR) (NotDetected) Parainfluenza 1 (PCR) (NotDetected) Parainfluenza 2 (PCR) (NotDetected) Parainfluenza 3 (PCR) (NotDetected) Parainfluenza 4 (PCR) (NotDetected) RSV (PCR) (NotDetected) Entero/Rhino (PCR) (NotDetected) 09/23/22 09/23/22 09/23/22 Range/Units 21:06 21:06 21:06 WBC (4.8-10.8) K/ul RBC (3.93-5.22) M/uL Hgb (12.0-16.0) g/dl Hct (34.1-44.9) % MCV (80.0-100.0) fL MCH (25.0-34.0) pg MCHC (32.0-36.0) g/dL RDW Std Deviation (36.4-46.3) fL RDW Coeff of Majo (11.5-14.5) % Plt Count (130-400) K/uL MPV (9.4-12.3) fL Immature Gran % (Auto) % Neut % (Auto) % Lymph % (Auto) % [place] % (Auto) % Eos % (Auto) % Baso % (Auto) % Neut # (Auto) (1.4-6.5) K/uL Lymph # (Auto) (1.2-3.4) K/uL [place] # (Auto) (0.24-0.82) K/uL Eos # (Auto) (0-0.50) K/uL Baso # (Auto) (0-0.2) K/uL Immature Gran # (Auto) (0.00-0.02) K/uL PT (9.0-12.0) Seconds INR (0.9-1.1) APTT (21.0-31.0) Seconds PTT Ratio VBG pH (7.36-7.41) VBG pCO2 (38-50) mmHg VBG pO2 mmHg VBG HCO3 mmol/L VBG O2 Saturation % VBG Base Excess mEq/L Sodium (136-145) mmol/L Potassium (3.5-5.1) mmol/L Chloride (98-107) mmol/L Carbon Dioxide (21-32) mmol/L Anion Gap (3-11) BUN (6-23) mg/dl Creatinine (0.6-1.2) mg/dl Est Cr Clr Drug Dosing Est GFR ( Amer) ml/min Est GFR (Non-Af Amer) ml/min BUN/Creatinine Ratio (10-20) Glucose (70-99(Fasting)) mg/dl POC Glucose (70-99) mg/dl Osmolality 315 H (280-300) mOsm/kg Lactate (0.4-2.0) mmol/L Calcium (8.5-10.1) mg/dl Magnesium (1.7-2.4) mg/dl Total Bilirubin (0.2-1.0) mg/dl AST (13-39) U/L ALT (7-52) U/L Alkaline Phosphatase (34-104) U/L Troponin I High Sens (0-14) pg/ml B-Natriuretic Peptide 1271 H (0-100) pg/ml Total Protein (6.0-8.3) gm/dl Albumin (3.4-5.0) gm/dl Globulin (2.5-4.0) gm/dl Albumin/Globulin Ratio (0.9-2) Procalcitonin < 0.05 (0-0.5) ng/ml Urine Color Urine Appearance (Clear) Urine pH (4.5-7.5) Ur Specific [place] (1.000-1.030) Urine Protein (Negative) Urine Glucose (UA) (Negative) Urine Ketones (Negative) Urine Blood (Negative) Urine Nitrite (Negative) Urine Bilirubin (Negative) Urine Urobilinogen (Negative) Ur Leukocyte Esterase (Negative) Urine WBC (Auto) (0-5) /hpf Urine RBC (Auto) (0-4) /hpf U Hyaline Cast (Auto) (0-5) /lpf U Epithel Cells (Auto) (0-5) /lpf Urine Bacteria (Auto) (Negative) Adenovirus (PCR) (NotDetected) B. pertussis DNA (PCR) (NotDetected) B.parapertussis DNA PCR (NotDetected) C. pneumoniae DNA (PCR) (NotDetected) Coronavirus OC43 (PCR) (NotDetected) Coronavirus HKU1 (PCR) (NotDetected) Coronavirus 229E (PCR) (NotDetected) SARS-CoV-2 (PCR) (NotDetected) Coronavirus NL63 (PCR) (NotDetected) Human Metapneumovir PCR (NotDetected) Influenza Type A (PCR) (NotDetected) Influenza Type B (PCR) (NotDetected) M. pneumoniae (PCR) (NotDetected) Parainfluenza 1 (PCR) (NotDetected) Parainfluenza 2 (PCR) (NotDetected) Parainfluenza 3 (PCR) (NotDetected) Parainfluenza 4 (PCR) (NotDetected) RSV (PCR) (NotDetected) Entero/Rhino (PCR) (NotDetected) 09/23/22 09/23/22 09/23/22 Range/Units 21:06 21:55 22:53 WBC (4.8-10.8) K/ul RBC (3.93-5.22) M/uL Hgb (12.0-16.0) g/dl Hct (34.1-44.9) % MCV (80.0-100.0) fL MCH (25.0-34.0) pg MCHC (32.0-36.0) g/dL RDW Std Deviation (36.4-46.3) fL RDW Coeff of Majo (11.5-14.5) % Plt Count (130-400) K/uL MPV (9.4-12.3) fL Immature Gran % (Auto) % Neut % (Auto) % Lymph % (Auto) % [place] % (Auto) % Eos % (Auto) % Baso % (Auto) % Neut # (Auto) (1.4-6.5) K/uL Lymph # (Auto) (1.2-3.4) K/uL [place] # (Auto) (0.24-0.82) K/uL Eos # (Auto) (0-0.50) K/uL Baso # (Auto) (0-0.2) K/uL Immature Gran # (Auto) (0.00-0.02) K/uL PT (9.0-12.0) Seconds INR (0.9-1.1) APTT (21.0-31.0) Seconds PTT Ratio VBG pH 7.43 H (7.36-7.41) VBG pCO2 36 L (38-50) mmHg VBG pO2 60 mmHg VBG HCO3 24 mmol/L VBG O2 Saturation 93.2 % VBG Base Excess -0.1 mEq/L Sodium (136-145) mmol/L Potassium (3.5-5.1) mmol/L Chloride (98-107) mmol/L Carbon Dioxide (21-32) mmol/L Anion Gap (3-11) BUN (6-23) mg/dl Creatinine (0.6-1.2) mg/dl Est Cr Clr Drug Dosing Est GFR ( Amer) ml/min Est GFR (Non-Af Amer) ml/min BUN/Creatinine Ratio (10-20) Glucose (70-99(Fasting)) mg/dl POC Glucose (70-99) mg/dl Osmolality (280-300) mOsm/kg Lactate (0.4-2.0) mmol/L Calcium (8.5-10.1) mg/dl Magnesium (1.7-2.4) mg/dl Total Bilirubin (0.2-1.0) mg/dl AST (13-39) U/L ALT (7-52) U/L Alkaline Phosphatase (34-104) U/L Troponin I High Sens (0-14) pg/ml B-Natriuretic Peptide (0-100) pg/ml Total Protein (6.0-8.3) gm/dl Albumin (3.4-5.0) gm/dl Globulin (2.5-4.0) gm/dl Albumin/Globulin Ratio (0.9-2) Procalcitonin (0-0.5) ng/ml Urine Color Yellow Urine Appearance Clear (Clear) Urine pH 6.5 (4.5-7.5) Ur Specific [place] 1.032 H (1.000-1.030) Urine Protein Negative (Negative) Urine Glucose (UA) 3+ H (Negative) Urine Ketones Negative (Negative) Urine Blood Negative (Negative) Urine Nitrite Negative (Negative) Urine Bilirubin Negative (Negative) Urine Urobilinogen Negative (Negative) Ur Leukocyte Esterase Trace H (Negative) Urine WBC (Auto) 5-10 H (0-5) /hpf Urine RBC (Auto) 0-4 (0-4) /hpf U Hyaline Cast (Auto) 0 (0-5) /lpf U Epithel Cells (Auto) >30 H (0-5) /lpf Urine Bacteria (Auto) Negative (Negative) Adenovirus (PCR) Not Detected (NotDetected) B. pertussis DNA (PCR) Not Detected (NotDetected) B.parapertussis DNA PCR Not Detected (NotDetected) C. pneumoniae DNA (PCR) Not Detected (NotDetected) Coronavirus OC43 (PCR) Not Detected (NotDetected) Coronavirus HKU1 (PCR) Not Detected (NotDetected) Coronavirus 229E (PCR) Not Detected (NotDetected) SARS-CoV-2 (PCR) Not Detected (NotDetected) Coronavirus NL63 (PCR) Not Detected (NotDetected) Human Metapneumovir PCR Not Detected (NotDetected) Influenza Type A (PCR) Not Detected (NotDetected) Influenza Type B (PCR) Not Detected (NotDetected) M. pneumoniae (PCR) Not Detected (NotDetected) Parainfluenza 1 (PCR) Not Detected (NotDetected) Parainfluenza 2 (PCR) Not Detected (NotDetected) Parainfluenza 3 (PCR) Not Detected (NotDetected) Parainfluenza 4 (PCR) Not Detected (NotDetected) RSV (PCR) Not Detected (NotDetected) Entero/Rhino (PCR) Not Detected (NotDetected) 09/23/22 09/24/22 Range/Units 23:27 00:23 WBC (4.8-10.8) K/ul RBC (3.93-5.22) M/uL Hgb (12.0-16.0) g/dl Hct (34.1-44.9) % MCV (80.0-100.0) fL MCH (25.0-34.0) pg MCHC (32.0-36.0) g/dL RDW Std Deviation (36.4-46.3) fL RDW Coeff of Majo (11.5-14.5) % Plt Count (130-400) K/uL MPV (9.4-12.3) fL Immature Gran % (Auto) % Neut % (Auto) % Lymph % (Auto) % [place] % (Auto) % Eos % (Auto) % Baso % (Auto) % Neut # (Auto) (1.4-6.5) K/uL Lymph # (Auto) (1.2-3.4) K/uL [place] # (Auto) (0.24-0.82) K/uL Eos # (Auto) (0-0.50) K/uL Baso # (Auto) (0-0.2) K/uL Immature Gran # (Auto) (0.00-0.02) K/uL PT (9.0-12.0) Seconds INR (0.9-1.1) APTT (21.0-31.0) Seconds PTT Ratio VBG pH (7.36-7.41) VBG pCO2 (38-50) mmHg VBG pO2 mmHg VBG HCO3 mmol/L VBG O2 Saturation % VBG Base Excess mEq/L Sodium (136-145) mmol/L Potassium (3.5-5.1) mmol/L Chloride (98-107) mmol/L Carbon Dioxide (21-32) mmol/L Anion Gap (3-11) BUN (6-23) mg/dl Creatinine (0.6-1.2) mg/dl Est Cr Clr Drug Dosing Est GFR ( Amer) ml/min Est GFR (Non-Af Amer) ml/min BUN/Creatinine Ratio (10-20) Glucose (70-99(Fasting)) mg/dl POC Glucose 284 H (70-99) mg/dl Osmolality (280-300) mOsm/kg Lactate 2.8 H* (0.4-2.0) mmol/L Calcium (8.5-10.1) mg/dl Magnesium (1.7-2.4) mg/dl Total Bilirubin (0.2-1.0) mg/dl AST (13-39) U/L ALT (7-52) U/L Alkaline Phosphatase (34-104) U/L Troponin I High Sens (0-14) pg/ml B-Natriuretic Peptide (0-100) pg/ml Total Protein (6.0-8.3) gm/dl Albumin (3.4-5.0) gm/dl Globulin (2.5-4.0) gm/dl Albumin/Globulin Ratio (0.9-2) Procalcitonin (0-0.5) ng/ml Urine Color Urine Appearance (Clear) Urine pH (4.5-7.5) Ur Specific [place] (1.000-1.030) Urine Protein (Negative) Urine Glucose (UA) (Negative) Urine Ketones (Negative) Urine Blood (Negative) Urine Nitrite (Negative) Urine Bilirubin (Negative) Urine Urobilinogen (Negative) Ur Leukocyte Esterase (Negative) Urine WBC (Auto) (0-5) /hpf Urine RBC (Auto) (0-4) /hpf U Hyaline Cast (Auto) (0-5) /lpf U Epithel Cells (Auto) (0-5) /lpf Urine Bacteria (Auto) (Negative) Adenovirus (PCR) (NotDetected) B. pertussis DNA (PCR) (NotDetected) B.parapertussis DNA PCR (NotDetected) C. pneumoniae DNA (PCR) (NotDetected) Coronavirus OC43 (PCR) (NotDetected) Coronavirus HKU1 (PCR) (NotDetected) Coronavirus 229E (PCR) (NotDetected) SARS-CoV-2 (PCR) (NotDetected) Coronavirus NL63 (PCR) (NotDetected) Human Metapneumovir PCR (NotDetected) Influenza Type A (PCR) (NotDetected) Influenza Type B (PCR) (NotDetected) M. pneumoniae (PCR) (NotDetected) Parainfluenza 1 (PCR) (NotDetected) Parainfluenza 2 (PCR) (NotDetected) Parainfluenza 3 (PCR) (NotDetected) Parainfluenza 4 (PCR) (NotDetected) RSV (PCR) (NotDetected) Entero/Rhino (PCR) (NotDetected) Administered Medications Discontinued Medications Albuterol (Albut/Ipratrop 3mg/0.5mg Neb 3 Ml Vial) 3 ml NEB NOW STA; Protocol Stop: 09/23/22 19:48 Last Admin: 09/23/22 20:25 Dose: 3 ml Documented By: HARESH Enoxaparin Sodium (Enoxaparin Inj 120 Mg/0.8 Ml Syr) 111 mg SQ TODAY@2622 [facility] Stop: 09/24/22 01:00 Last Admin: 09/24/22 00:16 Dose: 111 mg Documented By: Furosemide (Furosemide 40 Mg/4 Ml Vial) 40 mg IV ONE ONE Stop: 09/24/22 01:28 Last Admin: 09/24/22 01:39 Dose: 40 mg Documented By: JR Guaifenesin (Guaifenesin 600 Mg Tabcr) 600 mg PO NOW STA Stop: 09/23/22 19:49 Last Admin: 09/23/22 20:25 Dose: 600 mg Documented By: HARESH Insulin Human Regular (Novolin-R Insulin Per Unit Charge) 10 units IV NOW STA Stop: 09/23/22 23:23 Last Admin: 09/24/22 00:17 Dose: 10 units Documented By: Co-signed By: SUZY Ioversol (Optiray 320 500ml) 105 ml IV ONCE ONE Stop: 09/23/22 23:51 Last Admin: 09/23/22 23:46 Dose: 105 ml Documented By: ARCADIO Imaging Data Radiologist's Impression: Chest X-Ray 09/23/22 19:21 XR chest 1V portable CLINICAL HISTORY: SOB TECHNIQUE: Single frontal radiograph of the chest was obtained. Comparison: Comparison is made to chest radiograph 09/13/2022 FINDINGS: Median sternotomy wires are unchanged. Alveolar prosthesis is noted. Cardiomegaly is noted. There is prominence and cephalization of the vasculature with Fara B lines seen. No evidence of pleural effusion or pneumothorax. IMPRESSION: Cardiomegaly and moderate pulmonary edema. ACT 112: Negative or not required by law. Electronically signed by: Nickolas Horta M.D. 09/23/2022 8:34 PM [facility] Preliminary Findings Only See Final Report For Complete Findings CT CHEST With Contrast: There is reasonable opacification of the pulmonary arterial tree, no pulmonary arterial filling defect is seen. The heart is enlarged with a prostatic mitral valve. There is reflux of contrast into the intrahepatic IVC suggesting some element of underlying right heart failure. There are scattered areas of varus impaction and some atelectasis without dense focal consolidation, pleural effusion, or pneumothorax. Radiologist: Kojo Castro MD Study ready at 23:56 and initial results transmitted at 01:18 Preliminary Findings Only See Final Report For Complete Findings CT ABDOMEN & PELVIS With Contrast: No acute findings are noted in the abdomen or pelvis. Please see the dedicated interpretation of the thorax. Radiologist: Kojo Castro MD Study ready at 00:06 and initial results transmitted at 01:24 Discharge Plan Visit Data Chief Complaint: Shortness of Breath/Dyspnea Stated Complaint: HIGH BP, SOB, CHEST PAIN ED Provider: Chino James Discharge Problem: CHF (congestive heart failure), History of mitral valve replacement with mechanical valve, Chronic obstructive pulmonary disease, Hyperglycemia due to type 2 diabetes mellitus Forms Stand Alone Forms: [facility] [place] [employer] Prescriptions Prescriptions: No Action warfarin 5 mg tablet 5 mg PO DAILY Rx Instructions: 08/01// or UD [facility] Anticoagulation Clinic takes in evening at 8 enoxaparin 100 mg/mL syringe 100 mg subcut Q12H Qty: 10 0RF Rx Instructions: Take every 12 hours on days as directed by [facility] Anticoagulation Clinic albuterol sulfate 90 mcg/actuation HFA aerosol inhaler 2 puff INHALATION Q6 PRN (Reason: Shortness Of Breath Or Wheezing) Qty: 18 5RF Atrovent HFA 17 mcg/actuation HFA aerosol inhaler 2 puff INHALATION TID Qty: 12.9 5RF Proctofoam HC 1-1 % foam 1 applic ID BID PRN (Reason: hemorrhoids) Qty: 10 0RF losartan 25 mg tablet 25 mg PO QAM Qty: 60 5RF (DME) Hospital Bed [facility] See Rx Instructions .Route Qty: 1 0RF Rx Instructions: As directed-HOSPITAL BED, LENGTH OF NEED 99 MONTHS, DX CODE; Z98.890 amiodarone 200 mg tablet 200 mg PO QAM potassium chloride 20 mEq tablet extended release 20 meq PO QAM atorvastatin 40 mg tablet 40 mg PO QPM fluticasone propionate 100 mcg/actuation blister with device 1 inh inhalation BID Dulera 200-5 mcg/actuation HFA aerosol inhaler 2 puff inhalation Q12H chlorhexidine gluconate 0.12 % mouthwash 15 ml buccal BID diclofenac sodium [Arthritis Pain (diclofenac)] 1 % gel 4 g topical QID Rx Instructions: apply to single knee, ankle, foot; for foot includes sole/toes/top of foot cyclobenzaprine 5 mg tablet 5 mg PO TID PRN (Reason: muscle spasm) Qty: 30 0RF furosemide 40 mg tablet 40 mg PO QAM Qty: 30 2RF clindamycin HCl 300 mg capsule 300 mg PO Q6H Qty: 28 0RF nitroglycerin 0.4 mg tablet, sublingual 0.4 mg sublingual Q5M PRN (Reason: Chest Pain) Rx Instructions: do not exceed 3 doses per episode (DME) Bedside Commode Misc See Rx Instructions .Route Qty: 1 0RF Rx Instructions: As directed nicotine [Nicoderm CQ] 21 mg/24 hr patch 24 hour 21 mg transdermal QAM Qty: 30 0RF oxycodone 5 mg tablet 5 mg PO Q8H PRN (Reason: pain) Qty: 30 0RF ipratropium-albuterol 0.5 mg-3 mg(2.5 mg base)/3 mL solution for nebulization 3 ml NEB Q6H PRN (Reason: wheezing/SOB/cough) benzonatate 100 mg Capsule 200 mg PO TID PRN (Reason: cough) Qty: 180 0RF metoprolol succinate 25 mg tablet extended release 24 hr 25 mg PO QAM metformin 750 mg tablet extended release 24 hr 750 mg PO AMHS pantoprazole 40 mg tablet,delayed release (DR/EC) 40 mg PO AMHS Vitamin Plus Low Iron 27 mg iron- 1 mg tablet 1 tab PO QAM sennosides [senna] 8.6 mg tablet 8.6 mg PO AMHS gabapentin 300 mg capsule 300 mg PO BID Rx Instructions: 300mg poqam for 1 week then increase to 300mg bid orally daily; fluticasone furoate-vilanterol [Breo Ellipta] 100-25 mcg/dose Blister With Device 1 inh INHALATION DAILY Referrals Referrals: James Hendrix DO [Primary Care Provider] -
--- NOTE | 2022-09-23 20:35 | XRay Report ---
XR chest 1V portable CLINICAL HISTORY: SOB TECHNIQUE: Single frontal radiograph of the chest was obtained. Comparison: Comparison is made to chest radiograph 09/13/2022 FINDINGS: Median sternotomy wires are unchanged. Alveolar prosthesis is noted. Cardiomegaly is noted. There is prominence and cephalization of the vasculature with Fara B lines seen. No evidence of pleural effu yariel or pneumothorax. IMPRESSION: Cardiomegaly and moderate pulmonary edema. ACT 112: Negative or not required by law. Electronically signed by: Nickolas Horta M.D. 09/23/2022 8:34 PM
[2022-09-23 21:16] LABS: Base Excess VBG -0.1 mEq/L; HCO3 VBG 24 mmol/L; Oxygen Saturation VBG 93.2 %; PCO2 VBG 36 mmHg (38-50); PO2 VBG 60 mmHg; pH VBG 7.43 (7.36-7.41)
[2022-09-23 21:19] LABS: Basophils # (auto) 0.01 K/uL (0-0.2); Basophils % (auto) 0.1 %; Hematocrit (blood only) 32.3 % (34.1-44.9); Immature Granulocytes # (auto) 0.04 K/uL (0.00-0.02); Immature Granulocytes % (auto) 0.5 %; Lymphocytes % (auto) 16.1 %; Mean Corpuscular Hemoglobin 29.9 pg (25.0-34.0); Mean Corpuscular Volume 96.4 fL (80.0-100.0); Mean Platelet Volume 10.8 fL (9.4-12.3); Monocytes # (auto) 0.11 K/uL (0.24-0.82); Monocytes % (auto) 1.5 %; Neutrophils % (auto) 81.8 %; Platelet Count 291 K/uL (130-400); RDW Coefficient of Variation 13.7 % (11.5-14.5); Red Blood Count 3.35 M/uL (3.93-5.22); White Blood Count 7.46 K/ul (4.8-10.8)
[2022-09-23 21:29] LABS: INR 1.3 (0.9-1.1); Partial Thromboplastin Time 27.3 Seconds (21.0-31.0); Prothrombin Time 13.9 Seconds (9.0-12.0)
[2022-09-23 21:51] LABS: Alanine Aminotransferase 16 U/L (7-52); Albumin Level 3.7 gm/dl (3.4-5.0); Alkaline Phosphatase 109 U/L (34-104); Anion Gap 10 (3-11); Aspartate Aminotransferase 14 U/L (13-39); BUN Creatinine Ratio 25.3 (10-20); Bilirubin,Total 0.3 mg/dl (0.2-1.0); Blood Urea Nitrogen 23 mg/dl (6-23); Calcium 9.3 mg/dl (8.5-10.1); Carbon Dioxide 20 mmol/L (21-32); Chloride 107 mmol/L (98-107); Est GFR (African American) 81.2 ml/min; Globulin 3.6 gm/dl (2.5-4.0); Glucose 413 mg/dl (70-99(Fasting)); Magnesium 2.2 mg/dl (1.7-2.4); Potassium 4.6 mmol/L (3.5-5.1); Sodium 137 mmol/L (136-145); Total Protein 7.3 gm/dl (6.0-8.3); Troponin I High Sensitivity 27.7 pg/ml (0-14)
[2022-09-23 23:03] LABS: Adenovirus PCR Not Detected (NotDetected); Bordetella parapertussis PCR Not Detected (NotDetected); Bordetella pertussis PCR Not Detected (NotDetected); Chlamydia pneumoniae PCR Not Detected (NotDetected); Coronavirus 229E PCR Not Detected (NotDetected); Coronavirus CoV-2 (COVID19)PCR Not Detected (NotDetected); Coronavirus HKU1 PCR Not Detected (NotDetected); Coronavirus NL63 PCR Not Detected (NotDetected); Coronavirus OC43PCR Not Detected (NotDetected); Human Metapneumovirus PCR Not Detected (NotDetected); Influenza A PCR Not Detected (NotDetected); Influenza B PCR Not Detected (NotDetected); Mycoplasma pneumoniae PCR Not Detected (NotDetected); Parainfluenza Virus 1 PCR Not Detected (NotDetected); Parainfluenza Virus 2 PCR Not Detected (NotDetected); Parainfluenza Virus 3 PCR Not Detected (NotDetected); Parainfluenza Virus 4 PCR Not Detected (NotDetected); Respiratory Syncytial VirusPCR Not Detected (NotDetected); Rhinovirus/Enterovirus PCR Not Detected (NotDetected)
[2022-09-23 23:20] LABS: Appearance Urine Clear (Clear); Bacteria Urine Automated Negative (Negative); Bilirubin Urine Negative (Negative); Blood Urine Negative (Negative); Cast Urine Automated 0 /lpf (0-5); Color Urine Yellow; Epithelial Cell Urine Auto >30 /lpf (0-5); Glucose Urine UA 3+ (Negative); Ketones Urine Negative (Negative); Leukocyte Esterase Urine Trace (Negative); Nitrite Urine Negative (Negative); Protein Urine Negative (Negative); RBC Urine Automated 0-4 /hpf (0-4); Specific Gravity Urine 1.032 (1.000-1.030); Urobilinogen Urine Negative (Negative); pH Urine 6.5 (4.5-7.5)
[2022-09-23] MEDS ORDERED: ENOXAPARIN 1 MG/KG SC STA (23:21)
[2022-09-23] MEDS ORDERED: NovoLIN-R INSULIN PER UNIT CHARGE IV STA (23:22)
[2022-09-23] MEDS ORDERED: ENOXAPARIN INJ 120 MG/0.8 ML SYR SQ SCH (23:22)
[2022-09-23] MEDS ORDERED: OPTIRAY 320 500ml IV ONE (23:50)
[2022-09-24] MEDS ORDERED: FUROSEMIDE 40 MG/4 ML VIAL IV ONE (01:27)
--- NOTE | 2022-09-24 02:26 | History & Physical Report ---
Date of Service September 24, 2022 Assessment & Plan (1) CHF exacerbation: Plan: Deb is a 56-year-old female with a past medical history of COPD, asthma, PE, SMITA on CPAP, CHF, DM 2, mitral valve replacement, atrial fibrillation, hypertension, hyperlipidemia who presented due to chest discomfort and shortness of breath. CHF exacerbation BNP of 1271 Evidence of pulmonary vascular congestion on chest imaging Last echo 09/14 showing EF of 35 to 40% Received Lasix 40 mg IV x1 in ED Previously on Lasix 40 mg p.o. daily at home she states that she was recently switched to 80 mg p.o. daily but had yet to start this dose Will order Lasix 40 mg IV twice daily Monitor kidney function Monitor I's and O's, daily weights Low-sodium diet Admit to telemetry History of mitral valve replacement with mechanical valve, surgical site infection INR of 1.3 on admission Was bridging with Lovenox until INR 2.5-3.5 on warfarin 10 mg daily Lovenox 1 mg/kg ordered Continue warfarin 10 mg daily Trend INR Continue clindamycin clarify duration Atrial fibrillation Per chart review developed atrial fibrillation after MV surgery Anticoagulated as above Continue amiodarone and metoprolol COPD/asthma Patient was unclear about her inhaler regimen, stated she would have her communicate her medication list to us clarify regimen For now will continue listed regimen, as I compared this with several of her past visit notes Albuterol as needed, Breo Ellipta 1 inhalation daily, fluticasone propionate 1 inhalation twice daily, ipratropium bromide 2 puffs 3 times daily, DuoNebs as needed, mometasone formoterol 2 puffs every 12 hours Tessalon Perles as needed Hypertension/hyperlipidemia Continue losartan, metoprolol, furosemide as above Continue atorvastatin DM2 Basal/SSI while admitted Glycemic consult GERD Pantoprazole 40 mg twice daily Tobacco use Nicotine patch ordered Chronic pain/muscle spasms Continue gabapentin 300 mg twice daily and cyclobenzaprine 5 mg 3 times daily as needed SMITA CPAP at bedtime Diet: Heart healthy, DM 2, low-sodium DVT prophylaxis: Anticoagulated as above Dispo: Telemetry CODE STATUS: Full (2) History of mitral valve replacement with mechanical valve: (3) Atrial fibrillation: (4) Chronic obstructive pulmonary disease: (5) Asthma: (6) Hypertension: (7) Hyperlipidemia: (8) Anxiety: (9) Depression: (10) Diabetes mellitus, type 2: (11) Obstructive sleep apnea on CPAP: (12) GERD (gastroesophageal reflux disease): History of Present Illness Primary Care Provider: James HendrixDO Boyd is a 56-year-old female with a past medical history of COPD, asthma, PE, SMITA on CPAP, CHF, DM 2, mitral valve replacement, atrial fibrillation, hypertension, hyperlipidemia who presented due to chest discomfort and shortness of breath starting last night. She took a dose of nitroglycerin, which alleviated the pain, but the pain returned earlier on the morning of 09/23. She states it has been harder to catch her breath during this time. While she does tend to have swelling in her legs in the evenings, she has not noticed any more swelling there than usual. Of note, the patient had mitral valve replacement in [facility] in early August. She does state she is on antibiotics for an infection at her surgical site. She cannot recall what this antibiotic is and states that her has a list of her medications, but he has left for the night. She does state that her warfarin was increased to 10 mg daily and she has been on therapeutic Lovenox while bridging. She also states that yesterday she was instructed to increase her Lasix dose to 80 mg daily, but she did not start this dose prior to arrival in hospital. She does not have nausea, vomiting, headache, dizziness, fever, chills, rashes, joint aches, muscle aches, diarrhea, constipation. In the ED, patient had work-up significant for hemoglobin of 10, normal white count, INR 1.3, normal electrolytes, glucose on arrival 413, lactate of 2.8, alk phos 109, troponin 27.7, BNP 1271, negative procalcitonin. Chest x-ray showing cardiomegaly and moderate pulmonary edema. Chest CTA showing "reasonable opacification of the pulmonary arterial tree, no pulmonary arterial filling defect is seen. The heart is enlarged with a prostatic mitral valve. There is reflux of contrast into the intrahepatic IVC suggesting some element of underlying right heart failure." CT A/P without significant acute findings (see stat rad read for further details). EKG without any overt signs of ischemia. She received Lasix 40 mg IV x1, Lovenox 111 mg x 1, DuoNeb x1, Mucinex 600 mg x 1, regular insulin 10 units x 1 (with improvement of glucose to 281). Allergies Allergy/AdvReac Type Severity Reaction Status Date / Time No Known Allergies Allergy Verified 09/21/22 10:21 Home Medications Medication Instructions Recorded Confirmed Type nicotine 21 mg/24 hr daily 21 mg transdermal QAM #30 ea 01/26/22 09/24/22 Rx transdermal patch (Nicoderm CQ) albuterol sulfate 90 mcg/actuation 2 puff inhalation Q6 PRN Shortness 05/03/22 09/24/22 Rx aerosol inhaler Of Breath Or Wheezing #18 grams ipratropium bromide 17 2 puff inhalation TID #12.9 grams 05/03/22 09/24/22 Rx mcg/actuation HFA aerosol inhaler (Atrovent HFA) ipratropium 0.5 mg-albuterol 3 mg 3 ml NEB Q6H PRN wheezing/SOB/cough 05/06/22 1 11/25/21 History (2.5 mg base)/3 mL nebulization soln benzonatate 100 mg capsule 200 mg PO TID PRN cough #180 caps 05/13/22 09/24/22 Rx nitroglycerin 0.4 mg sublingual 0.4 mg sublingual Q5M PRN Chest 05/16/22 09/24/22 History tablet Pain hydrocortisone 1 %-pramoxine 1 % 1 applic ID BID PRN hemorrhoids 07/18/22 09/24/22 Rx rectal foam (Proctofoam HC) #10 grams losartan 25 mg tablet 25 mg PO QAM #60 tabs 07/18/22 09/24/22 Rx Bedside Commode #1 ea 08/04/22 09/22/22 Rx Hospital Bed Homecare #1 ea 08/12/22 09/22/22 Rx amiodarone 200 mg tablet 200 mg PO QAM 09/02/22 09/24/22 History atorvastatin 40 mg tablet 40 mg PO QPM 09/02/22 09/24/22 History chlorhexidine gluconate 0.12 % 15 ml buccal BID 09/02/22 09/24/22 History mouthwash diclofenac sodium 1 % topical gel 4 g topical QID 09/02/22 09/24/22 History (Arthritis Pain (diclofenac)) fluticasone propionate 100 1 inh inhalation BID 09/02/22 09/24/22 History mcg/actuation blister powder for inhalation mometasone-formoterol HFA 200 2 puff inhalation Q12H 09/02/22 09/24/22 History mcg-5 mcg/actuation aerosol inhaler (Dulera) potassium chloride 20 mEq 20 meq PO QAM 09/02/22 09/24/22 History tablet,extended release oxycodone 5 mg tablet 5 mg PO Q8H PRN pain #30 tabs 09/09/22 09/24/22 Rx cyclobenzaprine 5 mg tablet 5 mg PO TID PRN muscle spasm #30 09/19/22 09/24/22 Rx tabs furosemide 40 mg tablet 40 mg PO QAM #30 tabs 09/19/22 09/24/22 Rx clindamycin HCl 300 mg capsule 300 mg PO Q6H #28 caps 09/20/22 09/23/22 Rx enoxaparin 100 mg/mL subcutaneous 100 mg subcut Q12H #10 syringes 09/22/22 09/24/22 Rx syringe warfarin 5 mg tablet 5 mg PO DAILY 09/22/22 09/24/22 History metoprolol succinate 25 mg 25 mg PO QAM 09/23/22 09/23/22 History tablet,extended release 24 hr fluticasone furoate 100 1 inh inhalation DAILY 09/24/22 09/24/22 History mcg-vilanterol 25 mcg/dose inhalation powder (Breo Ellipta) gabapentin 300 mg capsule 300 mg PO BID chronic pain 09/24/22 09/24/22 History metformin 750 mg tablet,extended 750 mg PO AMHS 09/24/22 09/24/22 History release 24 hr pantoprazole 40 mg tablet,delayed 40 mg PO AMHS 09/24/22 09/24/22 History release vitamin with calcium 1 tab PO QAM 09/24/22 09/24/22 History no.72-iron 27 mg-folic acid 1 mg tablet ( Vitamins Plus Low Iron) sennosides 8.6 mg tablet (senna) 8.6 mg PO AMHS 09/24/22 09/24/22 History Past Med/Surg History Medical History Acute chest pain Asthma exacerbation in COPD Asthma-COPD overlap syndrome Atrial fibrillation Chest pain Chronic diastolic congestive heart failure Chronic low back pain Degeneration of cervical intervertebral disc Diabetes mellitus, type 2 oral medication Dyspnea on exertion so severe pt is wheelchair bound (per [facility] record) External hemorrhoids GERD (gastroesophageal reflux disease) Hemiplegic migraine History of COVID-19 diagnosed 2yrs ago---mild symptoms, no symptoms now History of pulmonary embolism on xarelto Hoarseness of voice Mitral valve insufficiency Obesity SMITA on CPAP Urinary incontinence Vertebral artery stenosis Vitamin D deficiency Surgical History Facial fracture (2014) WITH RECONSTRUCTION History of bilateral tubal ligation History of cardiac cath X2 STENTS - (~2010, IN [place], [place] NO STENTS - ([facility] @ ~2014) No stents ([facility] 05/11/2022) - Follows Nita Moon - [facility] [place] History of colonoscopy History of esophagogastroduodenoscopy (EGD) History of heart artery stent X2 STENTS (2010) UNSURE OF KIND. NO STENT CARDS PER PT. History of hemorrhoidectomy (~2017) @ [facility] History of mandibular surgery History of transesophageal echocardiography (GEORGETTE) performed 06/21/22 @ [facility]---per report pt has severe mitral valve insufficiency S/P left knee arthroscopy S/P MVR (mitral valve repair) S/p tibial fracture open treatment of Fx with plate/screws, Left leg Status post right foot surgery Family History Mother Breast cancer, Onset Age: 64 Type 2 diabetes mellitus Father Diabetes Coronary heart disease Type 2 diabetes mellitus Myocardial infarction, Onset Age: 52 Family/Other Hypertension sibling Denies family history of Ovarian cancer Social History Smoking Status: Never smoker Tobacco Type: Cigarettes Cigarettes Per Day: 1 pk/day; Second Hand Exposure: No; Hx Alcohol Use: No Hx Substance Use: No Preferred Language: Bermudian Communication Ability: Effective Visual Impairment: No Limitations Hog Ringer Required: No Beliefs That Will Affect Care: None marital status: Current Living Situation: Spouse Current Living Situation Comment: home with How many Children do You have: 5 Feels Safe at Home: Yes Safety Concerns: Feels Safe At This Time Assistive Devices: Glasses, Scooter/Electric Scooter, Walker and Wheelchair Review of Systems Review of Systems: Per HPI Physical Exam Physical Exam: GENERAL: A&Ox3. NAD. HEENT: PERRL, EOMI. Moist mucous membranes. NECK: No lymphadenopathy. CHEST/LUNGS: Crackles at bilateral bases, decreased air entry bilaterally HEART: RRR. No m/g/r. No carotid bruits. ABDOMEN: NT/ND, soft. BS+ x4. Upper abdominal lesion with mild erythema, no bleeding/drainage. EXTREMITIES: 1+ bilateral lower extremity pitting edema. No cyanosis, no clubbing. SKIN: Warm and dry. No rashes or lesions. PSYCHIATRIC: Euthymic affect, no SI, no pressured speech, no hallucinations NEUROLOGIC: No FND. CN II-XII grossly intact. Results & Data Results & Data ([facility]) Vital Signs (Past 12 Hours) Vital Signs Temp Pulse Pulse Resp BP BP Pulse Ox 09/24/22 01:38 53 L 20 149/67 H 97 09/24/22 00:10 50 L 22 95 09/23/22 23:15 50 L 31 H 149/80 H 95 09/23/22 21:00 57 L 18 96 09/23/22 19:21 97 09/23/22 19:21 09/23/22 19:42 21 97 09/23/22 19:42 97 09/23/22 19:42 97 09/23/22 19:13 36.5 C 56 L 22 152/72 H 98 O2 Del Method 09/24/22 01:38 Room Air 09/24/22 00:10 Room Air 09/23/22 23:15 Room Air 09/23/22 21:00 09/23/22 19:21 Room Air 09/23/22 19:21 Room Air 09/23/22 19:42 09/23/22 19:42 Room Air 09/23/22 19:42 Room Air 09/23/22 19:13 Room Air Code Status & VTE Plan VTE Prophylaxis Plan VTE Prophylaxis will be ordered: No Supervising Physician Co-Signing Physician Notes Patient seen and examined, chart reviewed, case discussed with Dr. Hernandez and I agree with the assessment and plan as above. In brief, patient is a 56yo female with COPD, DM, CHF, recent mitral valve replacement, AF and HLP presenting with chest discomfort and SOB ongoing since the AM. Elevated BNP of 1271. CXR with evidence of vascular congestion On exam she is afebrile, HD stable, bradycardic Skin - intact, surgical sites appear clean and healing well with exception of small open area on abdomen HEENT - NC/AT, PERRL, MMM, No JVD Heart - +S1/S2, irregular, bradycardic, no m/r/g Lungs - +crackles Abd - +BS, soft, NT/ND Ext - trace edema Labs and images reviewed Assessment/Plan: Suspect acute exacerbation of CHF -Diuresis with lasix 40mg IV BID -Monitor renal function and elctrolytes -Remainder as above Resident Activity Tracking Resident Involvement: Resident Care Provided Care Provided: Adult Hospital Medicine (1) Diabetes mellitus, type 2 Diabetes mellitus complication status: with hyperglycemia Diabetes mellitus senior care insulin use: with termite treater helper use Qualified Code(s): E11.65 - Type 2 diabetes mellitus with hyperglycemia; Z79.4 - senior care (current) use of insulin (2) Depression Depression Type: unspecified Qualified Code(s): F32.9 - Major depressive disorder, single episode, unspecified (3) Hyperlipidemia Hyperlipidemia type: unspecified Qualified Code(s): E78.5 - Hyperlipidemia, unspecified (4) Hypertension Hypertension type: essential hypertension Qualified Code(s): I10 - Essential (primary) hypertension (5) Asthma Asthma complication type: with acute exacerbation Asthma persistence: persistent Asthma severity: moderate Qualified Code(s): J45.41 - Moderate persistent asthma with (acute) exacerbation
[2022-09-24] MEDS ORDERED: ALBUT/IPRATROP 3MG/0.5MG NEB 3 ML VIAL NEB PRN (04:27)
[2022-09-24] MEDS ORDERED: PHARMACY GLYCEMIC MGMT CONSULT PRN (04:27)
[2022-09-24] MEDS ORDERED: BENZONATATE 100 MG CAPSULE PO PRN (04:27)
[2022-09-24] MEDS ORDERED: oxyCODONE HCL IR 5 MG TAB (IMMEDIATE RELEASE) PO PRN (04:27)
[2022-09-24] MEDS ORDERED: ALUMINUM/MAGNESIUM SUSP 30 ML UDC PO PRN (04:27)
[2022-09-24] MEDS ORDERED: DEXTROSE 50% 50 ML SYRINGE IV PRN (04:27)
[2022-09-24] MEDS ORDERED: HYDROCORTISONE ACETATE 25 MG SUPP PR PRN (04:27)
[2022-09-24] MEDS ORDERED: GLUCOSE 40% GEL 15 GM TUBE PO PRN (04:27)
[2022-09-24] MEDS ORDERED: NITROGLYCERIN SL 0.4 MG/TAB TAB SL PRN (04:27)
[2022-09-24] MEDS ORDERED: ACETAMINOPHEN 325 MG TAB PO PRN (04:27)
[2022-09-24] MEDS ORDERED: GLUCOSE 10 TAB/TUBE PO PRN (04:27)
[2022-09-24] MEDS ORDERED: ALBUTEROL HFA 8 GM INHALER INH PRN (04:27)
[2022-09-24] MEDS ORDERED: POLYETHYLENE (MIRALAX) 17 GM PACK PO PRN (04:27)
[2022-09-24] MEDS ORDERED: ONDANSETRON INJ 2 MG/ML 2 ML VIAL IV PRN (04:27)
[2022-09-24] MEDS ORDERED: GLUCAGON FOR INJ 1 MG VIAL SQ PRN (04:27)
[2022-09-24] MEDS ORDERED: CARBOHYDRATES FOR HYPOGLYCEMIA PO PRN (04:27)
[2022-09-24] MEDS ORDERED: CYCLOBENZAPRINE HCL 5 MG TAB PO PRN (04:27)
[2022-09-24] MEDS ORDERED: WARFARIN SOD 5 MG TAB PO ONE (04:27)
[2022-09-24] MEDS ORDERED: NON-FORMULARY MEDICATION (Mometasone-Formoterol [Dulera] 200-5 mcg/actuation HFA aerosol i INH SCH (04:30)
[2022-09-24] MEDS: IPRATROPIUM BROMIDE HFA INHALER INH SCH ×3 (05:33→19:07)
[2022-09-24] MEDS ORDERED: CLINDAMYCIN HCL 150 MG CAP PO SCH (06:00)
--- NOTE | 2022-09-24 06:58 | Hospitalist Progress Note ---
Date of Service September 24, 2022 Assessment & Plan (1) CHF exacerbation: Plan: Deb is a 56-year-old female with a past medical history of COPD, asthma, PE, SMITA on CPAP, CHF, DM 2, mitral valve replacement, atrial fibrillation, hypertension, hyperlipidemia who presented due to chest discomfort and shortness of breath. CHF exacerbation BNP of 1271 Evidence of pulmonary vascular congestion on chest imaging Last echo 09/14 showing EF of 35 to 40% Previously on Lasix 40 mg p.o. daily at home she states that she was recently switched to 80 mg p.o. daily but had yet to start this dose Continue Lasix 40 mg IV twice daily Monitor kidney function Monitor I's and O's, daily weights Low-sodium diet - Cardiology consulted; appreciate recs - Repeat CXR in morning History of mitral valve replacement with mechanical valve, surgical site infection INR of 1.3 on admission; 1.4 today Was bridging with Lovenox until INR 2.5-3.5 on warfarin 10 mg daily Lovenox 1 mg/kg ordered Continue warfarin 10 mg daily Trend INR Stop clindamycin; no signs of active skin infection. Atrial fibrillation Per chart review developed atrial fibrillation after MV surgery Anticoagulated as above Continue amiodarone and metoprolol COPD/asthma Patient was unclear about her inhaler regimen, stated she would have her talked to pharmacist yesterday in regards to home regimen; will f/u Albuterol as needed, Breo Ellipta 1 inhalation daily, fluticasone propionate 1 inhalation twice daily, ipratropium bromide 2 puffs 3 times daily, DuoNebs as needed, mometasone formoterol 2 puffs every 12 hours Tessalon Perles as needed Hypertension/hyperlipidemia Continue losartan, metoprolol, furosemide as above Continue atorvastatin DM2 Basal/SSI while admitted Glycemic consult GERD Pantoprazole 40 mg twice daily Tobacco use Nicotine patch ordered Chronic pain/muscle spasms Continue gabapentin 300 mg twice daily and cyclobenzaprine 5 mg 3 times daily as needed SMITA CPAP at bedtime Diet: Heart healthy, DM 2, low-sodium DVT prophylaxis: Anticoagulated as above Dispo: Telemetry CODE STATUS: Full (2) History of mitral valve replacement with mechanical valve: (3) Atrial fibrillation: (4) Chronic obstructive pulmonary disease: (5) Asthma: (6) Hypertension: (7) Hyperlipidemia: (8) Anxiety: (9) Depression: (10) Diabetes mellitus, type 2: (11) Obstructive sleep apnea on CPAP: (12) GERD (gastroesophageal reflux disease): Admission and Anticipated Discharge Date Admission Date: September 24, 2022 Supervising Physician Co-Signing Physician Notes I independently saw the patient and discussed the case with the resident physician. Agree with impression plan as noted the resident documentation. She is feeling generally well, albeit tired, this morning. She notes less dyspnea as compared to yesterday. She reports having headache yesterday which she attributed to her elevated blood pressure; she has no headache at present time. Exam 166/68, 61, 18, 36.6, 99% room air She is pleasant alert. No distress appreciated. She has a scar on the anterior chest wall consistent with her recent valve surgery, is nontender, there is no erythemano evidence of infection Heart regular rate and rhythm, auscultated rate 64 Lungs are clear in the apices, decreased in the bases bilaterally Abdomen soft and nontender Data Hemoglobin 10, platelet count 291 INR 1.4 Sodium 137, potassium 4.6, BUN 23, creatinine 0.91 BNP 1271 Blood cultures are pending Impression and plan Acute on chronic systolic congestive heart failure, with reduced ejection fra ction Continue diuresis Chest x-ray in a.m. Trend BMP History of postoperative atrial fibrillation Continue amiodarone Cardiology consultation appreciated History of mitral valve replacement with mechanical valve Need for chronic systemic anticoagulation Continue warfarin Daily PT/INR and warfarin adjustment as needed Continue bridging Lovenox 1 mg/kg twice daily until therapeutic with warfarin Insulin-dependent diabetes Glycemic consultation appreciated Additional per resident documentation Morgan Boyd is a 56-year-old female with a past medical history of COPD, asthma, PE, SMITA on CPAP, CHF, DM 2, mitral valve replacement, atrial fibrillation, hypertension, hyperlipidemia. Doing well this morning. States her shortness of breath and lower extremity edema has improved. Review of Systems Review of Systems: Per HPI Physical Exam Physical Exam: Constitutional: well-appearing, no acute distress HEENT: NCAT, no conjunctival injection CV: regular rhythm, no murmur appreciated, extremities well-perfused, trace LE edema, scar on anterior chest-> well healing Resp: CTABL, no wheezes/rales/rhonchi appreciated, no increased work of breathing GI: soft, nondistended, nontender, BS normoactive MSK: no gross deformities appreciated Skin: warm, dry, no rash appreciated Neuro: alert, oriented, no focal neurologic deficit appreciated Results & Data Results & Data ([facility]) Vital Signs (Past 12 Hours) Vital Signs Temp Pulse Pulse Resp BP BP Pulse Ox 09/24/22 06:41 09/24/22 05:44 65 26 H 96 09/24/22 05:35 87 16 95 09/24/22 05:24 18 95 09/24/22 05:21 65 09/24/22 04:24 09/24/22 04:18 36.7 C 66 19 103/77 95 09/24/22 04:30 09/24/22 03:00 49 L 23 146/69 H 94 09/24/22 03:30 52 L 22 09/24/22 01:40 53 L 21 149/67 H 09/24/22 01:20 52 L 22 09/24/22 01:10 52 L 23 09/24/22 01:00 50 L 22 09/24/22 00:50 50 L 22 09/24/22 00:40 49 L 17 09/24/22 01:38 53 L 20 149/67 H 97 09/24/22 00:10 50 L 22 95 09/23/22 23:15 50 L 31 H 149/80 H 95 09/23/22 21:00 57 L 18 96 09/23/22 19:21 97 09/23/22 19:21 09/23/22 19:42 21 97 09/23/22 19:42 97 09/23/22 19:42 97 09/23/22 19:13 36.5 C 56 L 22 152/72 H 98 O2 Del Method FiO2 09/24/22 06:41 Room Air, CPAP 09/24/22 05:44 28 09/24/22 05:35 Room Air 09/24/22 05:24 Room Air 09/24/22 05:21 09/24/22 04:24 Room Air 09/24/22 04:18 Room Air 09/24/22 04:30 Room Air 09/24/22 03:00 Room Air 09/24/22 03:30 09/24/22 01:40 09/24/22 01:20 09/24/22 01:10 09/24/22 01:00 09/24/22 00:50 09/24/22 00:40 09/24/22 01:38 Room Air 09/24/22 00:10 Room Air 09/23/22 23:15 Room Air 09/23/22 21:00 09/23/22 19:21 Room Air 09/23/22 19:21 Room Air 09/23/22 19:42 09/23/22 19:42 Room Air 09/23/22 19:42 Room Air 09/23/22 19:13 Room Air (1) Diabetes mellitus, type 2 Diabetes mellitus complication status: with hyperglycemia Diabetes mellitus retirement insulin use: with retirement use Qualified Code(s): E11.65 - Type 2 diabetes mellitus with hyperglycemia; 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
--- NOTE | 2022-09-24 07:22 | CT Scan Report ---
CHEST CTA for PULMONARY ARTERIES CT DOSE: 2446.03 mGy.cm HISTORY: 1mo s/p mech mitral valve replacement with shortness of breath, PE TECHNIQUE: Multiaxial CT images of the chest were performed following the intravenous administration of contrast to evaluate the pulmonary arteries. Maximal intensity projection images were also obtaine d. A dose lowering technique was utilized adhering to the principles of ALARA. COMPARISON STUDY: Chest CTA 05/11/2022. FINDINGS: Stable 13 mm nodule within the left thyroid lobe. Interval poststernotomy changes and a axel ral valve replacement. There is retrosternal density which favors trace hemorrhage related to the rec ent postoperative change. No mediastinal or hilar lymphadenopathy. Normal esophagus. No mediastinal o r hilar lymphadenopathy. Normal caliber thoracic aorta with no evidence for dissection. The heart is mildly enlarged. This is similar to the prior study. No pleural or pericardial effusions. The visuali zed liver and spleen are unremarkable. No filling defects within the pulmonary arteries to suggest a pulmonary embolus. No pneumothorax. The central airways are patent. Stable 3 mm nodule within the rig ht upper lobe on image 194. A few scattered linear densities favor subsegmental atelectasis. Otherwis e, no focal lung consolidations to suggest a pneumonia. No evidence for pulmonary edema. IMPRESSION: 1. No evidence for a pulmonary embolus. 2. Interval poststernotomy changes for a mitral valve replacement. 3. Trace retrosternal density favors hemorrhage in the setting of recent postoperative change. 4. Cardiomegaly, unchanged. ACT 112: Negative or not required by law. Electronically signed by: Octaviano Garcia M.D. 09/24/2022 7:20 AM
[2022-09-24 07:25] LABS: INR 1.4 (0.9-1.1); Prothrombin Time 14.3 Seconds (9.0-12.0)
--- NOTE | 2022-09-24 07:26 | CT Scan Report ---
ABDOMEN AND PELVIS CT WITH IV CONTRAST CT DOSE: HISTORY: 1mo s/p mech MVR, SOB/. Evaluate abdominal wound TECHNIQUE: Multiaxial CT images of the abdomen and pelvis were performed following the use of intrave nous contrast. A dose lowering technique was utilized adhering to the principles of ALARA. COMPARISON STUDY: Abdomen and pelvis CT 09/20/2021. FINDINGS: Poststernotomy changes and a mitral valve prosthesis are partially visualized. No acute fra ctures within the visualized osseous structures. The liver, spleen, adrenal glands, pancreas, gallbla dder, kidneys are unremarkable. No hydronephrosis. No retroperitoneal lymphadenopathy. The main witner l vein is patent. Calcified plaque within the normal caliber abdominal aorta. The bladder, uterus, bi lateral adnexa are within normal limits. No significant pelvic free fluid or pelvic lymphadenopathy. No bowel wall thickening or obstruction. Colonic diverticulosis. No evidence for acute diverticulitis . No loculated fluid collections to suggest an abscess. IMPRESSION: 1. No bowel wall thickening or obstruction. 2. Please refer to the same day chest CTA for further evaluation of the chest. ACT 112: Negative or not required by law. Electronically signed by: Octaviano Garcia M.D. 09/24/2022 7:24 AM
[2022-09-24] MEDS: METOPROLOL SUCC 25MG EXT REL TAB PO SCH (08:01)
[2022-09-24] MEDS: AMIODARONE 200 MG TAB PO SCH (08:01)
[2022-09-24] MEDS: LOSARTAN POTASSIUM 25 MG TAB PO SCH (08:01)
[2022-09-24] MEDS ORDERED: PANTOprazole 40 MG TAB PO SCH (09:00)
[2022-09-24] MEDS ORDERED: LANTUS PER UNIT CHARGE SQ SCH ×3 (09:00→21:00)
[2022-09-24] MEDS ORDERED: GABAPENTIN 300 MG CAP PO SCH (09:00)
[2022-09-24] MEDS ORDERED: FLUTICASONE/VILANTEROL 100/25MCG 14 PUFFS/INHALER INH SCH (09:00)
[2022-09-24] MEDS: SENNA 8.6 MG TAB PO SCH ×2 (09:07→20:37)
[2022-09-24] MEDS: FUROSEMIDE 40 MG/4 ML VIAL IV SCH ×2 (09:07→17:41)
[2022-09-24] MEDS: PANTOprazole 40 MG TAB PO SCH ×2 (09:08→20:38)
[2022-09-24] MEDS: POTASSIUM CHLORIDE CRTAB 20 MEQ TABCR PO SCH ×2 (09:08→20:36)
[2022-09-24] MEDS: GABAPENTIN 300 MG CAP PO SCH ×2 (09:08→20:39)
[2022-09-24] MEDS: PRENATAL VITAMIN 1 TAB PO SCH (09:08)
[2022-09-24] MEDS: DICLOFENAC SOD 1% GEL 100 GM TUBE EXT SCH ×4 (09:09→20:38)
[2022-09-24] MEDS: NICOTINE 21 MG/24 HR TDSY TD SCH (09:10)
[2022-09-24] MEDS: FLUTICASONE/VILANTEROL 200/25MCG 14 PUFFS/INHALER INH SCH (09:11)
[2022-09-24] MEDS: INSULIN ASPART PER UNIT SC SCH ×4 (09:11→20:32)
[2022-09-24] MEDS: ENOXAPARIN INJ 120 MG/0.8 ML SYR SQ SCH ×2 (10:04→23:31)
[2022-09-24 11:37] LABS: Estimated Average Glucose 212 mg/dl
[2022-09-24] MEDS ORDERED: INSULIN HUMAN REGULAR PER UNIT 10 UNITS in SYRINGE 9.9 ML IV SCH (12:45)
--- NOTE | 2022-09-24 14:08 | Cardiology Consultation ---
Date of Consultation September 24, 2022 Assessment & Plan (1) Chronic systolic (congestive) heart failure: -suspect her recent decompensation is related to dietary indiscretion with salt. -we have discussed importance of a salt restricted diet (less than 2000 mg daily). -we have again reviewed the concept of daily weights and sliding-scale diuretics. -echocardiogram performed last month noted an ejection fraction of 35-40%. -continue metoprolol and losartan. (2) Atrial fibrillation: -no evidence of atrial fibrillation. -would continue amiodarone for total of 3 months postop (D/C in November). -consider reducing amiodarone to 100 mg daily if her bradycardia persists. (3) History of mitral valve replacement with mechanical valve: -proper function on her most recent echocardiogram. History of Present Illness Attending Physician: Lester Kline, DO History of Present Illness Mrs. Lara is a 56-year-old female admitted earlier today with mildly decompensated systolic CHF. This consultation was ordered to assist in her management. The patient was in her usual state of health until approximately 2-3 days prior to presentation. She began to note increasing lower extremity edema along with some exertional dyspnea. She follows daily weights at home and noticed an increase from her typical dry weight of 237 up to a weight of 240 to on the day of presentation. She typically takes Lasix 40 mg with an additional dose when necessary for weight gain. Unfortunately, she had not administered any additional diuretics. The patient attempts to follow a salt restricted diet, however, informs me that she has been eating foods out of her air fryer. I have suggested she check labels and restrict salt intake to 2000 mg daily. We have also reviewed daily weights and sliding-scale diuretics. The patient's recent history began on May 06 when she was admitted to our hospital with respiratory failure felt secondary to her asthma and chronic diastolic CHF. During the hospitalization, patient developed a chest pain syndrome and a heart alert was called that she was taken to the cardiac catheterization laboratory urgently. Fortunately, she had angiographically normal coronary arteries. There was no evidence of an intracoronary stent. U nfortunately, she was found to have new, severe mitral regurgitation with mild left ventricular dysfunction. She was referred to CT surgery at [facility] for consideration of a valve replacement. She did undergo mitral valve replacement with a [employer] 31 mm mechanical valve on August 25 a [facility]. Her postoperative course was complicated by an episode of atrial fibrillation requiring use of amiodarone. She was discharged home on August 31 in stable fashion. Currently, patient is resting comfortably in bed without complaints. Past medical and surgical history 1. Coronary artery disease-clean coronary arteries May 11, 2022 2. ? LCx stent times 2-2011 3. MVR-[facility] [employer], 31 mm, August 25, 2022 3. Hypercholesterolemia 4. Diabetes mellitus 5. Asthma/COPD 6. GERD 7. Anxiety/depression 8. Vitamin-D deficiency 9. Hemiplegia migraine headaches 10. Obesity 11. Obstructive sleep apnea 12. Pulmonary embolism-October 2021 13. History of mandibular surgery 14. Left knee arthroscopy 15. Tubal ligation 16. ORIF left tibia-2014 Social history and lives with her No tobacco alcohol Family history Father at 52 from an [place] Mother at 64 from breast carcinoma Review of systems A 10 review systems was undertaken and negative except that described above. Allergies Allergy/AdvReac Type Severity Reaction Status Date / Time No Known Allergies Allergy Verified 09/21/22 10:21 Home Medications Medication Instructions Recorded Confirmed Type nicotine 21 mg/24 hr daily 21 mg transdermal QAM #30 ea 01/26/22 09/24/22 Rx transdermal patch (Nicoderm CQ) albuterol sulfate 90 mcg/actuation 2 puff inhalation Q6 PRN Shortness 05/03/22 09/24/22 Rx aerosol inhaler Of Breath Or Wheezing #18 grams ipratropium bromide 17 2 puff inhalation TID #12.9 grams 05/03/22 09/24/22 Rx mcg/actuation HFA aerosol inhaler (Atrovent HFA) ipratropium 0.5 mg-albuterol 3 mg 3 ml NEB Q6H PRN wheezing/SOB/cough 05/06/22 09/24/22 History (2.5 mg base)/3 mL nebulization soln benzonatate 100 mg capsule 200 mg PO TID PRN cough #180 caps 05/13/22 09/24/22 Rx nitroglycerin 0.4 mg sublingual 0.4 mg sublingual Q5M PRN Chest 05/16/22 09/24/22 History tablet Pain hydrocortisone 1 %-pramoxine 1 % 1 applic [place] BID PRN hemorrhoids 07/18/22 09/24/22 Rx rectal foam (Proctofoam HC) #10 grams losartan 25 mg tablet 25 mg PO QAM #60 tabs 07/18/22 09/24/22 Rx Bedside Commode #1 ea 08/04/22 09/22/22 Rx Hospital Bed Homecare #1 ea 08/12/22 09/22/22 Rx amiodarone 200 mg tablet 200 mg PO QAM 09/02/22 09/24/22 History atorvastatin 40 mg tablet 40 mg PO QPM 09/02/22 09/24/22 History chlorhexidine gluconate 0.12 % 15 ml buccal BID 09/02/22 09/24/22 History mouthwash diclofenac sodium 1 % topical gel 4 g topical QID 09/02/22 09/24/22 History (Arthritis Pain (diclofenac)) fluticasone propionate 100 1 inh inhalation BID 09/02/22 09/24/22 History mcg/actuation blister powder for inhalation mometasone-formoterol HFA 200 2 puff inhalation Q12H 09/02/22 09/24/22 History mcg-5 mcg/actuation aerosol inhaler (Dulera) potassium chloride 20 mEq 20 meq PO QAM 09/02/22 09/24/22 History tablet,extended release oxycodone 5 mg tablet 5 mg PO Q8H PRN pain #30 tabs 09/09/22 09/24/22 Rx cyclobenzaprine 5 mg tablet 5 mg PO TID PRN muscle spasm #30 09/19/22 09/24/22 Rx tabs furosemide 40 mg tablet 40 mg PO QAM #30 tabs 09/19/22 09/24/22 Rx clindamycin HCl 300 mg capsule 300 mg PO Q6H #28 caps 09/20/22 09/23/22 Rx enoxaparin 100 mg/mL subcutaneous 100 mg subcut Q12H #10 syringes 09/22/22 09/24/22 Rx syringe warfarin 5 mg tablet 5 mg PO DAILY 09/22/22 09/24/22 History metoprolol succinate 25 mg 25 mg PO QAM 09/23/22 09/23/22 History tablet,extended release 24 hr fluticasone furoate 100 1 inh inhalation DAILY 09/24/22 09/24/22 History mcg-vilanterol 25 mcg/dose inhalation powder (Breo Ellipta) gabapentin 300 mg capsule 300 mg PO BID chronic pain 09/24/22 09/24/22 History metformin 750 mg tablet,extended 750 mg PO AMHS 09/24/22 09/24/22 History release 24 hr pantoprazole 40 mg tablet,delayed 40 mg PO AMHS 09/24/22 09/24/22 History release vitamin with calcium 1 tab PO QAM 09/24/22 09/24/22 History no.72-iron 27 mg-folic acid 1 mg tablet ( Vitamins Plus Low Iron) sennosides 8.6 mg tablet (senna) 8.6 mg PO AMHS 09/24/22 09/24/22 History Patient History Medical History Acute chest pain Asthma exacerbation in COPD Asthma-COPD overlap syndrome Atrial fibrillation Chest pain Chronic diastolic congestive heart failure Chronic low back pain Degeneration of cervical intervertebral disc Diabetes mellitus, type 2 oral medication Dyspnea on exertion so severe pt is wheelchair bound (per [facility] record) External hemorrhoids GERD (gastroesophageal reflux disease) Hemiplegic migraine History of COVID-19 diagnosed 2yrs ago---mild symptoms, no symptoms now History of pulmonary embolism on xarelto Hoarseness of voice Mitral valve insufficiency Obesity SMITA on CPAP Urinary incontinence Vertebral artery stenosis Vitamin D deficiency Surgical History Facial fracture (2014) WITH RECONSTRUCTION History of bilateral tubal ligation History of cardiac cath X2 STENTS - (~2010, IN [place], [place] NO STENTS - ([facility] @ ~2014) No stents ([facility] 05/11/2022) - [place] [facility] [place] [facility] of colonoscopy History of esophagogastroduodenoscopy (EGD) History of heart artery stent X2 STENTS (2010) UNSURE OF KIND. NO STENT CARDS PER PT. History of hemorrhoidectomy (~2017) @ [facility] History of mandibular surgery History of transesophageal echocardiography (GEORGETTE) [facility]per report pt has severe mitral valve insufficiency S/P left knee arthroscopy S/P MVR (mitral valve repair) S/p tibial fracture open treatment of Fx with plate/screws, Left leg Status post right foot surgery Family History Mother Breast cancer, Onset Age: 64 Type 2 diabetes mellitus Father Diabetes Coronary heart disease Type 2 diabetes mellitus Myocardial infarction, Onset Age: 52 Family/Other Hypertension sibling Denies family history of Ovarian cancer Social History Smoking Status: Never smoker Tobacco Type: Cigarettes Cigarettes Per Day: 1 pk/day; Second Hand Exposure: No; Hx Alcohol Use: No Hx Substance Use: No Preferred Language: French Communication Ability: Effective Visual Impairment: No Limitations Brass Cutter Required: No Beliefs That Will Affect Care: None marital status: Current Living Situation: Spouse Current Living Situation Comment: home with How many Children do You have: 5 Feels Safe at Home: Yes Safety Concerns: Feels Safe At This Time Assistive Devices: Glasses, Scooter/Electric Scooter, Walker and Wheelchair Physical Exam Physical Exam: In general this is an obese black female lying supine in bed without complaints. HEENT exam is negative. Neck is supple with full carotid upstrokes. No carotid bruits. Jugular is pressure is flat at 90. There is no thyromegaly. Cardiovascular exam reveals a regular rhythm with normal S1 and S2. Heart sounds are crisp. No obvious murmurs. Chest reveals a well-healed midline scar. Lungs are clear without rales, rhonchi, wheezes. Abdomen is obese without bruits. Extremities reveal intact radial artery pulses bilaterally. There is no peripheral edema. Results & Data ([facility]) Vital Signs (Past 12 Hours) Vital Signs Temp Pulse Pulse Pulse Resp BP Pulse Ox 09/24/22 12:40 61 18 99 09/24/22 10:58 36.6 C 52 L 20 166/68 H 97 09/24/22 07:33 36.1 C L 52 L 20 143/73 H 99 09/24/22 06:55 56 L 09/24/22 06:41 09/24/22 05:44 65 26 H 96 09/24/22 05:35 87 16 95 09/24/22 05:24 18 95 09/24/22 05:21 65 09/24/22 04:24 09/24/22 04:18 36.7 C 66 19 103/77 95 09/24/22 04:30 09/24/22 03:00 49 L 23 146/69 H 94 09/24/22 03:30 52 L 22 O2 Del Method FiO2 09/24/22 12:40 Room Air 09/24/22 10:58 Room Air 09/24/22 07:33 BiPAP 09/24/22 06:55 09/24/22 06:41 Room Air, CPAP 09/24/22 05:44 28 09/24/22 05:35 Room Air 09/24/22 05:24 Room Air 09/24/22 05:21 09/24/22 04:24 Room Air 09/24/22 04:18 Room Air 09/24/22 04:30 Room Air 09/24/22 03:00 Room Air 09/24/22 03:30 Laboratory Results CBC notes hemoglobin 10.0, hematocrit 32.3, white count 7.46, platelet count 700681. Electrolytes note a sodium of 137, potassium 4.6, chloride 107, bicarb 20, BUN 23, creatinine 0.91, and glucose of 284. High sensitivity troponins 27.7. BNP is 1271. Diagnostic Findings EKG notes a junctional rhythm and left ventricle hypertrophy with repolarization changes. Echocardiogram performed on September 13 noted mild to moderate left ventricular dysfunction with ejection fraction of 35-40%. There is a properly functioning mitral valve prosthesis. Chest x-ray notes cardiomegaly and postoperative changes. There was mild pulmonary edema. PG Care Time/CCT Total # of Minutes Spent Total Time Spent with Patient: Total time spent is greater than 50% in coordination of care (as documented) at patient's floor/unit and/or counseling patient: Coding Level of Care Code 47384 Office/OBS Consult Lvl 4 Diagnoses Chronic systolic (congestive) heart failure I50.22 Atrial fibrillation I48.91 History of mitral valve replacement with mechanical valve Z95.2
--- NOTE | 2022-09-24 14:11 | Pharmacy Report ---
Pharmacy Glycemic Short Note 2 - Date of Service September 24, 2022 - Glycemic Short BSG Results (Last 24 hours): 09/23/22 09/23/22 09/23/22 19:17 19:23 21:06 Glucose 413 H* POC Glucose 479 H* 467 H* 09/24/22 09/24/22 09/24/22 00:23 04:32 07:30 Glucose POC Glucose 284 H 274 H 301 H* 09/24/22 09/24/22 09/24/22 07:31 11:15 11:15 Glucose POC Glucose 322 H* 323 H* 336 H* OUTPATIENT ANTIDIABETIC REGIMEN: * Metformin ER 750 mg PO BID ASSESSMENT: * 56 y/o F admitted for CHF exacerbation. Patient with history of Type 2 diabetes managed at home on Metformin. * Blood sugars above 400 mg/dl on admission, trended down to 274 mg/dl early this AM. * Lantus 20 units x1 dose given this morning and Novolog started with parameters based on wt and stress of 3. * BSGs above 300 mg/dl still at lunch time. Regular insulin 10 units IV bolus was given at that time in addition to the Novolog correction and carb coverage. * Expecting BSGs to trend down this evening. * Additional Lantus dose scale ordered based on BSG at HS. PLAN FOR INPATIENT GLYCEMIC CONTROL: * Hold outpatient oral diabetes medications * Basal insulin * Lantus 20 units SQ this AM * Lantus 20-30 units scale based on BSG at HS * Bolus insulin * NovoLog per scale ACHS or Q6hrs while NPO * Goal Range: Low 110 mg/dL - High 140 mg/dL * Correction Factor: 15 mg/dL/unit * Nutritional / Prandial insulin per carb ratio of 1 unit per 5 grams CHO consumed
--- NOTE | 2022-09-24 14:34 | Electrocardiogram Report ---
Test Reason : Blood Pressure : / mmHG Vent. Rate : 054 BPM Atrial Rate : 080 BPM P-R Int : 000 ms QRS Dur : 106 ms QT Int : 502 ms P-R-T Axes : 000 012 120 degrees QTc Int : 476 ms Junctional rhythm Left ventricular hypertrophy with repolarization abnormality Prolonged QT Abnormal ECG When compared with ECG of 13-SEP-2022 23:19, Junctional rhythm has replaced Sinus rhythm T wave inversion more evident in Lateral leads Confirmed by Dwayne Guy ([id number]) on 09/24/2022 2:34:35 PM Referred By: Provider Outside Confirmed By:Dwayne Guy
[2022-09-24] MEDS ORDERED: WARFARIN SOD 10 MG TAB PO SCH (20:00)
[2022-09-24] MEDS ORDERED: ATORVASTATIN 40 MG TAB PO SCH (21:00)
[2022-09-25] MEDS: INSULIN ASPART PER UNIT SC SCH ×4 (00:11→11:48)
--- NOTE | 2022-09-25 00:18 | Billing Data ---
Date of Service September 24, 2022 Coding Level of Care Code 56763 Initial Inpt Care Lvl 3
--- NOTE | 2022-09-25 06:57 | Hospitalist Progress Note ---
Date of Service September 25, 2022 Assessment & Plan (1) CHF exacerbation: Plan: Deb is a 56-year-old female with a past medical history of COPD, asthma, PE, SMITA on CPAP, CHF, DM 2, mitral valve replacement, atrial fibrillation, hypertension, hyperlipidemia who presented due to chest discomfort and shortness of breath. CHF exacerbation BNP of 1271 Evidence of pulmonary vascular congestion on chest imaging Last echo 09/14 showing EF of 35 to 40% Previously on Lasix 40 mg p.o. daily at home she states that she was recently switched to 80 mg p.o. daily but had yet to start this dose Continue Lasix 40 mg IV twice daily Monitor kidney function Monitor I's and O's, daily weights Low-sodium diet - Cardiology consulted; appreciate recs - Repeat CXR in morning History of mitral valve replacement with mechanical valve, surgical site infection INR of 1.3 on admission; today Was bridging with Lovenox until INR 2.5-3.5 on warfarin 10 mg daily Lovenox 1 mg/kg ordered Continue warfarin 10 mg daily - See anticoagulation clinic; on 09/22 they told her to take warfarin 08/01//03/01 and also to take enoxaparin 100 mg BID x 3 days -> today would be day 3 on this regimen Trend INR Stop clindamycin; no signs of active skin infection. Atrial fibrillation Per chart review developed atrial fibrillation after MV surgery Anticoagulated as above Continue amiodarone and metoprolol COPD/asthma Patient was unclear about her inhaler regimen, stated she would have her talked to pharmacist yesterday in regards to home regimen; will f/u Albuterol as needed, Breo Ellipta 1 inhalation daily, fluticasone propionate 1 inhalation twice daily, ipratropium bromide 2 puffs 3 times daily, DuoNebs as needed, mometasone formoterol 2 puffs every 12 hours Tessalon Perles as needed Hypertension/hyperlipidemia Continue losartan, metoprolol, furosemide as above Continue atorvastatin DM2 - OP regimen is 750 Metformin BID Basal/SSI while admitted Glycemic consult - Hemoglobin A1c= 9.0; 05/13= 7.5 GERD Pantoprazole 40 mg twice daily Tobacco use Nicotine patch ordered Chronic pain/muscle spasms Continue gabapentin 300 mg twice daily and cyclobenzaprine 5 mg 3 times daily as needed SMITA CPAP at bedtime Diet: Heart healthy, DM 2, low-sodium DVT prophylaxis: Anticoagulated as above Dispo: Telemetry CODE STATUS: Full (2) History of mitral valve replacement with mechanical valve: (3) Atrial fibrillation: (4) Chronic obstructive pulmonary disease: (5) Asthma: (6) Hypertension: (7) Hyperlipidemia: (8) Anxiety: (9) Depression: (10) Diabetes mellitus, type 2: (11) Obstructive sleep apnea on CPAP: (12) GERD (gastroesophageal reflux disease): Admission and Anticipated Discharge Date Admission Date: September 24, 2022 Morgan Boyd is a 56-year-old female with a past medical history of COPD, asthma, PE, SMITA on CPAP, CHF, DM 2, mitral valve replacement, atrial fibrillation, hypertension, hyperlipidemia. Doing well this morning. States her shortness of breath and lower extremity edema has improved. Review of Systems Review of Systems: Per HPI Physical Exam 2 Physical Exam: Constitutional: well-appearing, no acute distress HEENT: NCAT, no conjunctival injection CV: regular rhythm, no murmur appreciated, extremities well-perfused, trace LE edema, scar on anterior chest-> well healing Resp: CTABL, no wheezes/rales/rhonchi appreciated, no increased work of breathing GI: soft, nondistended, nontender, BS normoactive MSK: no gross deformities appreciated Skin: warm, dry, no rash appreciated Neuro: alert, oriented, no focal neurologic deficit appreciated Results & Data Results & Data ([facility]) Vital Signs (Past 12 Hours) Vital Signs Temp Pulse Pulse Pulse Resp BP Pulse Ox 09/25/22 05:15 54 L 09/25/22 03:17 36.5 C 60 18 160/82 H 98 09/25/22 02:10 60 16 100 09/24/22 22:50 36.5 C 58 L 19 144/74 H 100 09/24/22 20:00 20 100 09/24/22 21:36 54 L 22 100 09/24/22 21:34 54 L 22 100 09/24/22 20:00 09/24/22 18:56 36.8 C 53 L 18 148/76 H 95 O2 Del Method FiO2 09/25/22 05:15 09/25/22 03:17 Room Air 09/25/22 02:10 21 09/24/22 22:50 CPAP 09/24/22 20:00 CPAP 21 09/24/22 21:36 CPAP 09/24/22 21:34 21 09/24/22 20:00 Room Air 09/24/22 18:56 Room Air (1) Asthma Asthma severity: moderate Asthma persistence: persistent Asthma complication type: with acute exacerbation Qualified Code(s): J45.41 - Moderate persistent asthma with (acute) exacerbation (2) Hypertension Hypertension type: essential hypertension Qualified Code(s): I10 - Essential (primary) hypertension (3) Hyperlipidemia Hyperlipidemia type: unspecified Qualified Code(s): E78.5 - Hyperlipidemia, unspecified (4) Depression Depression Type: unspecified Qualified Code(s): F32.9 - Major depressive disorder, single episode, unspecified (5) Diabetes mellitus, type 2 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
[2022-09-25] MEDS: IPRATROPIUM BROMIDE HFA INHALER INH SCH ×2 (07:17→12:24)
[2022-09-25 07:49] LABS: Basophils # (auto) 0.01 K/uL (0-0.2); Basophils % (auto) 0.1 %; Eosinophils # (auto) 0.02 K/uL (0-0.50); Eosinophils % (auto) 0.1 %; Hematocrit (blood only) 33.1 % (34.1-44.9); Hemoglobin 10.3 g/dl (12.0-16.0); Immature Granulocytes # (auto) 0.07 K/uL (0.00-0.02); Immature Granulocytes % (auto) 0.5 %; Lymphocytes # (auto) 3.33 K/uL (1.2-3.4); Lymphocytes % (auto) 22.8 %; Mean Corpuscular Hemoglobin 29.3 pg (25.0-34.0); Mean Corpuscular Hgb Conc 31.1 g/dL (32.0-36.0); Mean Platelet Volume 11.2 fL (9.4-12.3); Monocytes # (auto) 0.91 K/uL (0.24-0.82); Monocytes % (auto) 6.2 %; Neutrophils # (auto) 10.28 K/uL (1.4-6.5); Neutrophils % (auto) 70.3 %; Platelet Count 307 K/uL (130-400); RDW Coefficient of Variation 14.2 % (11.5-14.5); RDW Standard Deviation 49.1 fL (36.4-46.3); Red Blood Count 3.52 M/uL (3.93-5.22); White Blood Count 14.62 K/ul (4.8-10.8)
[2022-09-25 08:01] LABS: INR 1.4 (0.9-1.1); Prothrombin Time 14.6 Seconds (9.0-12.0)
[2022-09-25 08:20] LABS: Albumin Level 3.5 gm/dl (3.4-5.0); BUN Creatinine Ratio 34.1 (10-20); Bilirubin,Total 0.3 mg/dl (0.2-1.0); Calcium 9.2 mg/dl (8.5-10.1); Creatinine Clr Calc Pharmacy 85.3 ml/min; Est GFR (African American) 81.2 ml/min; Globulin 3.6 gm/dl (2.5-4.0); Magnesium 2.3 mg/dl (1.7-2.4); Potassium 4.1 mmol/L (3.5-5.1); Total Protein 7.1 gm/dl (6.0-8.3)
[2022-09-25] MEDS: DICLOFENAC SOD 1% GEL 100 GM TUBE EXT SCH ×2 (08:21→13:06)
[2022-09-25] MEDS: SENNA 8.6 MG TAB PO SCH (08:22)
[2022-09-25] MEDS: GABAPENTIN 300 MG CAP PO SCH (08:23)
[2022-09-25] MEDS: LOSARTAN POTASSIUM 25 MG TAB PO SCH (08:23)
[2022-09-25] MEDS: PANTOprazole 40 MG TAB PO SCH (08:23)
[2022-09-25] MEDS: FUROSEMIDE 40 MG/4 ML VIAL IV SCH ×2 (08:23→10:16)
[2022-09-25] MEDS: NICOTINE 21 MG/24 HR TDSY TD SCH (08:23)
[2022-09-25] MEDS: METOPROLOL SUCC 25MG EXT REL TAB PO SCH (08:24)
[2022-09-25] MEDS: PRENATAL VITAMIN 1 TAB PO SCH (08:24)
[2022-09-25] MEDS: FLUTICASONE/VILANTEROL 200/25MCG 14 PUFFS/INHALER INH SCH (08:24)
[2022-09-25] MEDS: AMIODARONE 200 MG TAB PO SCH (08:24)
[2022-09-25] MEDS ORDERED: LANTUS PER UNIT CHARGE SQ SCH (09:00)
--- NOTE | 2022-09-25 09:44 | XRay Report ---
XR chest 2V PA/lateral HISTORY: Shortness of breath. Fluid Overload COMPARISON: Chest 09/23/2022. FINDINGS: Cardiomegaly with poststernotomy changes and a mitral valve prosthesis are again noted. No pneumothorax. No pleural effusions. There is mild central pulmonary vascular congestion without overt edema. This remains unchanged. No new focal lung consolidations identified. A few linear densities s uggestive of subsegmental atelectasis again noted. IMPRESSION: Cardiomegaly with mild central pulmonary vascular congestion without overt edema. ACT 112: Negative or not required by law. Electronically signed by: Octaviano Garcia M.D. 09/25/2022 9:42 AM
[2022-09-25] MEDS: POTASSIUM CHLORIDE CRTAB 20 MEQ TABCR PO SCH (10:15)
--- NOTE | 2022-09-25 10:49 | Cardiology Progress Note ---
Date of Service September 25, 2022 Assessment & Plan (1) Chronic systolic (congestive) heart failure: Plan: -suspect her decompensation is related to dietary indiscretion with salt. -needs to follow a salt restricted diet (less than 2000 mg daily). -reviewed the concept of daily weights and sliding-scale diuretics. -echocardiogram performed last month noted an EF of 35-40%. -continue metoprolol and losartan. (2) Atrial fibrillation: Plan: -no evidence of atrial fibrillation. -would continue amiodarone for total of 3 months postop (D/C in November). (3) History of mitral valve replacement with mechanical valve: Plan: -proper function on her most recent echocardiogram. Admission and Anticipated Discharge Date Admission Date: September 24, 2022 Subjective The patient is resting comfortably in bed without complaints of chest pain, dyspnea, orthopnea, or PND. Her is at the bedside. Physical Exam Physical Exam: In general this is an obese black female lying supine in bed without complaints. HEENT exam is negative. Neck is supple with full carotid upstrokes. No carotid bruits. Jugular is pressure is flat at 90. There is no thyromegaly. Cardiovascular exam reveals a regular rhythm with normal S1 and S2. Heart sounds are crisp. No obvious murmurs. Chest reveals a well-healed midline scar. Lungs are clear without rales, rhonchi, wheezes. Abdomen is obese without bruits. Extremities reveal intact radial artery pulses bilate rally. There is no peripheral edema. Results & Data ([facility]) Vital Signs (Past 12 Hours) Vital Signs Temp Pulse Pulse Pulse Resp BP Pulse Ox 09/25/22 08:00 09/25/22 08:06 48 L 09/25/22 07:18 74 16 99 09/25/22 07:07 36.8 C 58 L 20 157/80 H 99 09/25/22 05:15 54 L 09/25/22 03:17 36.5 C 60 18 160/82 H 98 09/25/22 02:10 60 16 100 09/24/22 22:50 36.5 C 58 L 19 144/74 H 100 O2 Del Method FiO2 09/25/22 08:00 Room Air 09/25/22 08:06 09/25/22 07:18 Room Air 09/25/22 07:07 CPAP 09/25/22 05:15 09/25/22 03:17 Room Air 09/25/22 02:10 21 09/24/22 22:50 CPAP Diagnostic Findings child care development specialist notes sinus rhythm. PG Care Time/CCT Total # of Minutes Spent Total Time Spent with Patient: Total time spent is greater than 50% in coordination of care (as documented) at patient's floor/unit and/or counseling patient: Coding Level of Care Code 58124 Subseq Hosp Care Lvl 3 Diagnoses Chronic systolic (congestive) heart failure I50.22 Atrial fibrillation I48.91 History of mitral valve replacement with mechanical valve Z95.2
[2022-09-25] MEDS: ENOXAPARIN INJ 120 MG/0.8 ML SYR SQ SCH (11:48)
--- NOTE | 2022-09-25 13:12 | Discharge Summary ---
Date of Service September 25, 2022 Admission HPI Per Admitting Provider Deb is a 56-year-old female with a past medical history of COPD, asthma, PE, SMITA on CPAP, CHF, DM 2, mitral valve replacement, atrial fibrillation, hypertension, hyperlipidemia who presented due to chest discomfort and shortness of breath starting last night. She took a dose of nitroglycerin, which alleviated the pain, but the pain returned earlier on the morning of 09/23. She states it has been harder to catch her breath during this time. While she does tend to have swelling in her legs in the evenings, she has not noticed any more swelling there than usual. Of note, the patient had mitral valve replacem ent in [facility] in early August. She does state she is on antibiotics for an infection at her surgical site. She cannot recall what this antibiotic is and states that her has a list of her medications, but he has left for the night. She does state that her warfarin was increased to 10 mg daily and she has been on therapeutic Lovenox while bridging. She also states that yesterday she was instructed to increase her Lasix dose to 80 mg daily, but she did not start this dose prior to arrival in hospital. She does not have nausea, vomiting, headache, dizziness, fever, chills, rashes, joint aches, muscle aches, diarrhea, constipation. In the ED, patient had work-up significant for hemoglobin of 10, normal white count, INR 1.3, normal electrolytes, glucose on arrival 413, lactate of 2.8, alk phos 109, troponin 27.7, BNP 1271, negative procalcitonin. Chest x-ray showing cardiomegaly and moderate pulmonary edema. Chest CTA showing "reasonable opacification of the pulmonary arterial tree, no pulmonary arterial filling defect is seen. The heart is enlarged with a prostatic mitral valve. There is reflux of contrast into the intrahepatic IVC suggesting some element of underlying right heart failure." CT A/P without significant acute findings (see stat rad read for further details). EKG without any overt signs of ischemia. She received Lasix 40 mg IV x1, Lovenox 111 mg x 1, DuoNeb x1, Mucinex 600 mg x 1, regular insulin 10 units x 1 (with improvement of glucose to 281). Principal Diagnosis Acute on Chronic CHF Discharge Exam Constitutional: well-appearing, no acute distress HEENT: NCAT, no conjunctival injection CV: regular rhythm, no murmur appreciated, extremities well-perfused, trace LE edema, scar on anterior chest-> well healing Resp: CTABL, no wheezes/rales/rhonchi appreciated, no increased work of breathing GI: soft, nondistended, nontender, BS normoactive MSK: no gross deformities appreciated Skin: warm, dry, no rash appreciated Neuro: alert, oriented, no focal neurologic deficit appreciated Discharge Data Allergies Allergy/AdvReac Type Severity Reaction Status Date / Time No Known Allergies Allergy Verified 09/21/22 10:21 Consultations 09/24/22 01:28 ED Decision to Admit Stat 09/24/22 09:52 Consult Cardiology Routine Ordered Studies 09/23/22 23:23 CT abd pelvis IV con only Urgent CT angio chest PE protocol Urgent Laboratory Results WBC 14.62 K/ul (4.8-10.8) H 09/25/22 07:05 RBC 3.52 M/uL (3.93-5.22) L 09/25/22 07:05 Hgb 10.3 g/dl (12.0-16.0) L 09/25/22 07:05 Hct 33.1 % (34.1-44.9) L 09/25/22 07:05 MCV 94.0 fL (80.0-100.0) 09/25/22 07:05 MCH 29.3 pg (25.0-34.0) 09/25/22 07:05 MCHC 31.1 g/dL (32.0-36.0) L 09/25/22 07:05 RDW Std Deviation 49.1 fL (36.4-46.3) H 09/25/22 07:05 RDW Coeff of Majo 14.2 % (11.5-14.5) 09/25/22 07:05 Plt Count 307 K/uL (130-400) 09/25/22 07:05 MPV 11.2 fL (9.4-12.3) 09/25/22 07:05 Immature Gran % (Auto) 0.5 % 09/25/22 07:05 Neut % (Auto) 70.3 % 09/25/22 07:05 Lymph % (Auto) 22.8 % 09/25/22 07:05 Faulk % (Auto) 6.2 % 09/25/22 07:05 Eos % (Auto) 0.1 % 09/25/22 07:05 Baso % (Auto) 0.1 % 09/25/22 07:05 Neut # (Auto) 10.28 K/uL (1.4-6.5) H 09/25/22 07:05 Lymph # (Auto) 3.33 K/uL (1.2-3.4) 09/25/22 07:05 Faulk # (Auto) 0.91 K/uL (0.24-0.82) H 09/25/22 07:05 Eos # (Auto) 0.02 K/uL (0-0.50) 09/25/22 07:05 Baso # (Auto) 0.01 K/uL (0-0.2) 09/25/22 07:05 Immature Gran # (Auto) 0.07 K/uL (0.00-0.02) H 09/25/22 07:05 PT 14.6 Seconds (9.0-12.0) H 09/25/22 07:05 INR 1.4 (0.9-1.1) H 09/25/22 07:05 APTT 27.3 Seconds (21.0-31.0) 09/23/22 21:06 PTT Ratio 1.0 09/23/22 21:06 VBG pH 7.43 (7.36-7.41) H 09/23/22 21:06 VBG pCO2 36 mmHg (38-50) L 09/23/22 21:06 VBG pO2 60 mmHg 09/23/22 21:06 VBG HCO3 24 mmol/L 09/23/22 21:06 VBG O2 Saturation 93.2 % 09/23/22 21:06 VBG Base Excess -0.1 mEq/L 09/23/22 21:06 Sodium 140 mmol/L (136-145) 09/25/22 07:05 Potassium 4.1 mmol/L (3.5-5.1) 09/25/22 07:05 Chloride 106 mmol/L (98-107) 09/25/22 07:05 Carbon Dioxide 28 mmol/L (21-32) 09/25/22 07:05 Anion Gap 6 (3-11) 09/25/22 07:05 BUN 31 mg/dl (6-23) H 09/25/22 07:05 Creatinine 0.91 mg/dl (0.6-1.2) 09/25/22 07:05 Est Cr Clr Drug Dosing 85.3 ml/min 09/25/22 07:05 Est GFR ( Amer) 81.2 ml/min 09/25/22 07:05 Est GFR (Non-Af Amer) 70.0 ml/min 09/25/22 07:05 BUN/Creatinine Ratio 34.1 (10-20) H 09/25/22 07:05 Glucose 111 mg/dl (70-99(Fasting)) H 09/25/22 07:05 POC Glucose 119 mg/dl (70-99) H 09/25/22 11:26 Estimat Average Glucose 212 mg/dl 09/24/22 06:28 Hemoglobin A1c 9.0 % (4.5-5.6) H 09/24/22 06:28 Osmolality 315 mOsm/kg (280-300) H 09/23/22 21:06 Lactate 2.8 mmol/L (0.4-2.0) H* 09/23/22 23:27 Calcium 9.2 mg/dl (8.5-10.1) 09/25/22 07:05 Magnesium 2.3 mg/dl (1.7-2.4) 09/25/22 07:05 Total Bilirubin 0.3 mg/dl (0.2-1.0) 09/25/22 07:05 AST 13 U/L (13-39) 09/25/22 07:05 ALT 14 U/L (7-52) 09/25/22 07:05 Alkaline Phosphatase 90 U/L (34-104) 09/25/22 07:05 Troponin I High Sens 28.9 pg/ml (0-14) H 09/24/22 06:28 B-Natriuretic Peptide 1271 pg/ml (0-100) H 09/23/22 21:06 Total Protein 7.1 gm/dl (6.0-8.3) 09/25/22 07:05 Albumin 3.5 gm/dl (3.4-5.0) 09/25/22 07:05 Globulin 3.6 gm/dl (2.5-4.0) 09/25/22 07:05 Albumin/Globulin Ratio 1.0 (0.9-2) 09/25/22 07:05 Procalcitonin < 0.05 ng/ml (0-0.5) 09/23/22 21:06 Urine Color Yellow 09/23/22 22:53 Urine Appearance Clear (Clear) 09/23/22 22:53 Urine pH 6.5 (4.5-7.5) 09/23/22 22:53 Ur Specific Cranston 1.032 (1.000-1.030) H 09/23/22 22:53 Urine Protein Negative (Negative) 09/23/22 22:53 Urine Glucose (UA) 3+ (Negative) H 09/23/22 22:53 Urine Ketones Negative (Negative) 09/23/22 22:53 Urine Blood Negative (Negative) 09/23/22 22:53 Urine Nitrite Negative (Negative) 09/23/22 22:53 Urine Bilirubin Negative (Negative) 09/23/22 22:53 Urine Urobilinogen Negative (Negative) 09/23/22 22:53 Ur Leukocyte Esterase Trace (Negative) H 09/23/22 22:53 Urine WBC (Auto) 5-10 /hpf (0-5) H 09/23/22 22:53 Urine RBC (Auto) 0-4 /hpf (0-4) 09/23/22 22:53 U Hyaline Cast (Auto) 0 /lpf (0-5) 09/23/22 22:53 U Epithel Cells (Auto) >30 /lpf (0-5) H 09/23/22 22:53 Urine Bacteria (Auto) Negative (Negative) 09/23/22 22:53 Adenovirus (PCR) Not Detected (NotDetected) 09/23/22 21:55 B. pertussis DNA (PCR) Not Detected (NotDetected) 09/23/22 21:55 B.parapertussis DNA PCR Not Detected (NotDetected) 09/23/22 21:55 C. pneumoniae DNA (PCR) Not Detected (NotDetected) 09/23/22 21:55 Coronavirus OC43 (PCR) Not Detected (NotDetected) 09/23/22 21:55 Coronavirus HKU1 (PCR) Not Detected (NotDetected) 09/23/22 21:55 Coronavirus 229E (PCR) Not Detected (NotDetected) 09/23/22 21:55 SARS-CoV-2 (PCR) Not Detected (NotDetected) 09/23/22 21:55 Coronavirus NL63 (PCR) Not Detected (NotDetected) 09/23/22 21:55 Human Metapneumovir PCR Not Detected (NotDetected) 09/23/22 21:55 Influenza Type A (PCR) Not Detected (NotDetected) 09/23/22 21:55 Influenza Type B (PCR) Not Detected (NotDetected) 09/23/22 21:55 M. pneumoniae (PCR) Not Detected (NotDetected) 09/23/22 21:55 Parainfluenza 1 (PCR) Not Detected (NotDetected) 09/23/22 21:55 Parainfluenza 2 (PCR) Not Detected (NotDetected) 09/23/22 21:55 Parainfluenza 3 (PCR) Not Detected (NotDetected) 09/23/22 21:55 Parainfluenza 4 (PCR) Not Detected (NotDetected) 09/23/22 21:55 RSV (PCR) Not Detected (NotDetected) 09/23/22 21:55 Entero/Rhino (PCR) Not Detected (NotDetected) 09/23/22 21:55 Impressions Abdomen/Pelvis CT 09/23/22 23:[address] WITH IV CONTRAST CT DOSE: HISTORY: 1mo s/p mech MVR, SOB/. Evaluate abdominal wound TECHNIQUE: Multiaxial CT images of the abdomen and pelvis were performed following the use of intravenous contrast. A dose lowering technique was utilized adhering to the principles of ALARA. COMPARISON STUDY: Abdomen and pelvis CT 09/20/2021. FINDINGS: Poststernotomy changes and a mitral valve prosthesis are partially visualized. No acute fractures within the visualized osseous structures. The liver, spleen, adrenal glands, pancreas, gallbladder, kidneys are unremarkable. No hydronephrosis. No retroperitoneal lymphadenopathy. The main portal vein is patent. Calcified plaque within the normal caliber abdominal aorta. The bladder, uterus, bilateral adnexa are within normal limits. No significant pelvic free fluid or pelvic lymphadenopathy. No bowel wall thickening or obstruction. Colonic diverticulosis. No evidence for acute diverticulitis. No loculated fluid collections to suggest an abscess. IMPRESSION: 1. No bowel wall thickening or obstruction. 2. Please refer to the same day chest CTA for further evaluation of the chest. ACT 112: Negative or not required by law Electronically signed by: Octaviano Garcia M.D. 09/24/2022 7:24 AM Chest CTA 09/23/22 23:23 CHEST CTA for PULMONARY ARTERIES CT DOSE: 2446.03 mGy.cm HISTORY: 1mo s/p mech mitral valve replacement with shortness of breath, PE TECHNIQUE: Multiaxial CT images of the chest were performed following the intravenous administration of contrast to evaluate the pulmonary arteries. Maximal intensity projection images were also obtained. A dose lowering technique was utilized adhering to the principles of ALARA. COMPARISON STUDY: Chest CTA 05/11/2022. FINDINGS: Stable 13 mm nodule within the left thyroid lobe. Interval poststernotomy changes and a mitral valve replacement. There is retrosternal density which favors trace hemorrhage related to the recent postoperative change. No mediastinal or hilar lymphadenopathy. Normal esophagus. No mediastinal or hilar lymphadenopathy. Normal caliber thoracic aorta with no evidence for dissection. The heart is mildly enlarged. This is similar to the prior study. No pleural or pericardial effusions. The visualized liver and spleen are unremarkable. No filling defects within the pulmonary arteries to suggest a pulmonary embolus. No pneumothorax. The central airways are patent. Stable 3 mm nodule within the right upper lobe on image 194. A few scattered linear densities favor subsegmental atelectasis. Otherwise, no focal lung consolidations to suggest a pneumonia. No evidence for pulmonary edema. IMPRESSION: 1. No evidence for a pulmonary embolus. 2. Interval poststernotomy changes for a mitral valve replacement. 3. Trace retrosternal density favors hemorrhage in the setting of recent postoperative change. 4. Cardiomegaly, unchanged. ACT 112: Negative or not required by law Electronically signed by: Octaviano Garcia M.D. 09/24/2022 7:20 AM Chest X-Ray 09/25/22 08:59 XR chest 2V PA/lateral HISTORY: Shortness of breath. Fluid Overload COMPARISON: Chest 09/23/2022. FINDINGS: Cardiomegaly with poststernotomy changes and a mitral valve prosthesis are again noted. No pneumothorax. No pleural effusions. There is mild central pulmonary vascular congestion without overt edema. This remains unchanged. No new focal lung consolidations identified. A few linear densities suggestive of subsegmental atelectasis again noted. IMPRESSION: Cardiomegaly with mild central pulmonary vascular congestion without overt edema. ACT 112: Negative or not required by law. Electronically signed by: Octaviano Garcia M.D. 09/25/2022 9:42 AM Diabetes Follow up Diabetes Follow-up Needed for HgbA1c >9% Hospital Course (1) CHF exacerbation: Deb is a 56-year-old female with a past medical history of COPD, asthma, PE, SMITA on CPAP, CHF, DM 2, mitral valve replacement, atrial fibrillation, hypertension, hyperlipidemia who presented due to chest discomfort and shortness of breath. CHF exacerbation BNP of 1271 Evidence of pulmonary vascular congestion on chest imaging; repeat CXR prior to d/c with improvement Last echo 09/14 showing EF of 35 to 40% Previously on Lasix 40 mg p.o. daily at home - Seen by cardiology Was diuresed with IV Lasix and then transitioned to her home dose. Will take 40mg daily and will do daily weights. Will take extra dose if above dry weight. - Kidney function was stable at her baseline Low-sodium diet - F/u with cardiology History of mitral valve replacement with mechanical valve, surgical site infection INR of 1.3 on admission; 1.4 today Has appointment with anticoagulation clinic 09/27. Until then she will continue with Lovenox bridge; states she has enough at home and doesn't need refill. - Continue warfarin per anticoagulation clinic dosing (08/01//03/01) Stop clindamycin; no signs of active skin infection. Will order mupirocin. Atrial fibrillation Per chart review developed atrial fibrillation after MV surgery Anticoagulated as above Continue amiodarone and metoprolol COPD/asthma Continue home inhaler regimen Tessalon Perles as needed Hypertension/hyperlipidemia Continue losartan, metoprolol, furosemide as above Continue atorvastatin DM2 Current home regimen 750 metformin BID. States she has been on insulin in the past, but not for a number of year. - Hemoglobin A1c= 9.0; will need to adjust medications at f/u with PCP GERD Pantoprazole 40 mg twice daily Chronic pain/muscle spasms Continue gabapentin 300 mg twice daily and cyclobenzaprine 5 mg 3 times daily as needed SMITA CPAP at bedtime (2) History of mitral valve replacement with mechanical valve: (3) Atrial fibrillation: (4) Chronic obstructive pulmonary disease: (5) Asthma: (6) Hypertension: (7) Hyperlipidemia: (8) Anxiety: (9) Depression: (10) Diabetes mellitus, type 2: (11) Obstructive sleep apnea on CPAP: (12) GERD (gastroesophageal reflux disease): Total Time Total Time Spent Total Time Spent (In Minutes): 30 Discharge Plan Discharge Items Patient Disposition: Home - Self-Care Reason For Visit: CP, SOB Discharge Diagnosis: Acute in Chronic CHF Activity: Resume your previous activity Non-emergency contact: Primary Care Provider Call non-emergency contact if: you have any medication questions Follow-up/Referrals: Dwayne Guy MD [Physician] - 10/05/22 1:00 pm (With [facility] [address]) James Hendrix DO [Primary Care Provider] - 09/28/22 2:45 pm (BONNY Eaton at [facility] ) Diet: Regular Addtl Attending Provider Instructions: You were admitted to the hospital for an acute exacerbation of heart failure. You were treated with diuretics and seen by the general office associate. We would like you to continue to take 40mg of Lasix everyday. You should weight yourself daily and if your weight is above your dry weight, then you can take an extra dose of the lasix. You should also continue to limit the sodium in your diet. You are taking Warfarin and have been following with the Anticoagulation clinic to have your dose adjusted. Until your visit with them on 09/27, I would like you to continue to use the Lovenox injections and to continue to take the warfarin based on their directions that are written on the instructions for your prescription. You will need to have your INR checked again when you follow up with them. Your hemoglobin a1c was found to be 9.0. This is higher than it has been in the past. At your appointment with your PCP tomorrow, you should discuss how he would like to adjust your medications. You can stop taking the clindamycin, as your incision does not look infected currently. I will send a topical antibiotic ointment to your pharmacy that you can use on it. A discharge summary will be sent to your primary care physician to ensure continuity of care. Please bring this discharge summary with you to your next o ffice appointment so that your provider can review it at that time. Follow-up appointments: Make a follow-up appointment with your PCP within the next week. It is very important that you follow up with them shortly after discharge from the hospital. - We requested a follow up appointment with the general office associate as well. CONTACT YOUR PRIMARY CARE PROVIDER if you experience any of the following: Your shortness of breath returns Your have questions about how to take you Lovenox/warfarin. Difficulty following your treatment plan, or difficulty taking medications CALL 911 OR GO TO THE EMERGENCY DEPARTMENT if you experience any of the following: Sudden, severe abdominal pain or nausea/vomiting Severe chest pain, or chest pain that radiates (moves) to your jaw or arm Sudden, severe shortness of breath or difficulty breathing Thank you for allowing us to participate in your care. Pending Studies at Discharge: No Stand-Alone Forms: [facility], Smoking Cessation Medications and DC Order Prescriptions: New potassium chloride 10 mEq capsule, extended release 20 meq PO DAILY 30 Days Qty: 60 0RF mupirocin 2 % ointment 1 applic topical TID Qty: 15 0RF Continued warfarin 5 mg tablet 5 mg PO DAILY Rx Instructions: 08/01// or UD [facility] Anticoagulation Clinic takes in evening at 8 enoxaparin 100 mg/mL syringe 100 mg subcut Q12H Qty: 10 0RF Rx Instructions: Take every 12 hours on days as directed by [facility] Anticoagulation Clinic albuterol sulfate 90 mcg/actuation HFA aerosol inhaler 2 puff INHALATION Q6 PRN (Reason: Shortness Of Breath Or Wheezing) Qty: 18 5RF Atrovent HFA 17 mcg/actuation HFA aerosol inhaler 2 puff INHALATION TID Qty: 12.9 5RF Proctofoam HC 1-1 % foam 1 applic KS BID PRN (Reason: hemorrhoids) Qty: 10 0RF losartan 25 mg tablet 25 mg PO QAM Qty: 60 5RF (DME) Hospital Bed Homecare Misc See Rx Instructions .Route Qty: 1 0RF Rx Instructions: As directed-HOSPITAL BED, LENGTH OF NEED 99 MONTHS, DX CODE; Z98.890 amiodarone 200 mg tablet 200 mg PO QAM atorvastatin 40 mg tablet 40 mg PO QPM fluticasone propionate 100 mcg/actuation blister with device 1 inh inhalation BID Dulera 200-5 mcg/actuation HFA aerosol inhaler 2 puff inhalation Q12H chlorhexidine gluconate 0.12 % mouthwash 15 ml buccal BID diclofenac sodium [Arthritis Pain (diclofenac)] 1 % gel 4 g topical QID Rx Instructions: apply to single knee, ankle, foot; for foot includes sole/toes/top of foot cyclobenzaprine 5 mg tablet 5 mg PO TID PRN (Reason: muscle spasm) Qty: 30 0RF furosemide 40 mg tablet 40 mg PO QAM Qty: 30 2RF nitroglycerin 0.4 mg tablet, sublingual 0.4 mg sublingual Q5M PRN (Reason: Chest Pain) Rx Instructions: do not exceed 3 doses per episode (DME) Bedside Commode Misc See Rx Instructions .Route Qty: 1 0RF Rx Instructions: As directed nicotine [Nicoderm CQ] 21 mg/24 hr patch 24 hour 21 mg transdermal QAM Qty: 30 0RF oxycodone 5 mg tablet 5 mg PO Q8H PRN (Reason: pain) Qty: 30 0RF ipratropium-albuterol 0.5 mg-3 mg(2.5 mg base)/3 mL solution for nebulization 3 ml NEB Q6H PRN (Reason: wheezing/SOB/cough) benzonatate 100 mg Capsule 200 mg PO TID PRN (Reason: cough) Qty: 180 0RF metoprolol succinate 25 mg tablet extended release 24 hr 25 mg PO QAM metformin 750 mg tablet extended release 24 hr 750 mg PO [facility] pantoprazole 40 mg tablet,delayed release (DR/EC) 40 mg PO [facility] Vitamin Plus Low Iron 27 mg iron- 1 mg tablet 1 tab PO QAM sennosides [senna] 8.6 mg tablet 8.6 mg PO [facility] gabapentin 300 mg capsule 300 mg PO BID Rx Instructions: 300mg poqam for 1 week then increase to 300mg bid orally daily; fluticasone furoate-vilanterol [Breo Ellipta] 100-25 mcg/dose Blister With De vice 1 inh INHALATION DAILY Discontinued potassium chloride 20 mEq tablet extended release 20 meq PO QAM clindamycin HCl 300 mg capsule 300 mg PO Q6H Qty: 28 0RF Discharge Orders: Discharge Order (Routine); Ordered 09/25/22 Ordered By: Fidelia Stallworth/Other Patient Handouts: Heart Failure Make Changes Diet, Low Salt Diet Dc Admission Data Admit Date/Time: 09/24/22 02:00 Attending Provider: Lester Kline Admit Provider: Enzo Estevez Primary Care Provider: James Hendrix Other Providers: Eve Livingston ; Dwayne Guy ; [facility] Other Interventions: Discharge Summary Assessment (RN) Last Done: 09/25/22 14:46 Supervising Physician Co-Signing Physician Notes I independently saw the patient and discussed the case with the resident physician. Agree with impression plan as noted the resident documentation. She tells us that she feels quite well today. Denies headache. No shortness of breath. Exam 160/84, 74, 16, 36.4, 9% on room air She is pleasant alert. No distress appreciated. She has a scar on the anterior chest wall consistent with her recent valve surgery, is nontender, there is no erythemano evidence of infection She has a open surgical wound below the midline scar, it is about 1 cm in length and about 0.5 cm wide; no erythema, appears to be some granulation tissue. Heart regular rate and rhythm Lungs are clear Abdomen soft and nontender Data WBC 14.6, hemoglobin 10.3, platelet count 307 INR 1.4 Sodium 140, potassium 4.1, BUN 31, creatinine 0.91 A1c 9% Blood cultures showed no growth at 24 hours Chest x-ray dated 09/25/2022 shows cardiomegaly with mild central pulmonary vascular congestion without overt edema Impression and plan Acute on chronic systolic congestive heart failure, with reduced ejection fraction Symptomatically improved Diet discussed with regards to salt, especially Resume home dose of Lasix 40 mg, with extra dose if above dry weight (previous instruction, although she was not taking the extra dose when indicated) Follow-up with cardiology/CHF clinic History of postoperative atrial fibrillation Continue amiodarone Cardiology consultation appreciated History of mitral valve replacement with mechanical valve Need for chronic systemic anticoagulation Continue warfarin as directed by Coumadin clinic Continue bridging Lovenox 1 mg/kg twice daily until therapeutic with warfarin Insulin-dependent diabetes Glycemic consultation appreciated A1c elevated compared to last check She tells us that she was on insulin previous, although does not use currently since her blood sugars have been better controlled She has follow-up with family medicine early this upcoming week, so will defer additional medications Additional per resident documentation
== END 2022-09-25 15:04 | disposition home or self-care (01) | DRG 291 ==
LOC: ED 18:50 → 2S 09-24 02:00 → SUATTDRO 09-24 02:00 → 2S 09-24 04:30

== ENCOUNTER 2023-01-11 14:32 | Inpatient (IN) ==
[2023-01-11] MEDS ORDERED: ALBUT/IPRATROP 3MG/0.5MG NEB 3 ML VIAL NEB ONE (15:15)
[2023-01-11] MEDS ORDERED: MoRPHine SULFATE 4 MG/ML 1 ML CARP\\VIAL IV STA ×2 (15:15→18:02)
--- NOTE | 2023-01-11 15:27 | Emergency Department Note ---
Impression & Plan Sternal pain, Asthma with COPD, History of mitral valve replacement with mechanical valve, Acute dyspnea, Elevated troponin I level, Subtherapeutic anticoagulation, Infection due to human metapneumovirus (hMPV) ED Provider Note Provider: Kolby Huerta MD DATE OF SERVICE: 01/11/2023 CHIEF COMPLAINT: Shortness of breath, chest pain HISTORY OF PRESENT ILLNESS: Patient is a 57-year-old female history of COPD, CHF now with mechanical mitral valve replacement, atrial fibrillation, type 2 diab etes, GERD, and PE on anticoagulation presenting here today reporting chronic chest discomfort ongoing since this valve replacement in August. Seen here several days ago for this. States over the last day or 2 however developed worsening shortness of breath. Treatments received nebulizer treatment as well as given 125 mg of Solu-Medrol. Patient denies other significant sick contact or significant leg swelling. Denies GI disturbance. Ongoing chest discomfort but she states this has been an ongoing issue although still causing discomfort and Tylenol is not helping with it. States she been using her nebulizers at home without improvement of symptoms with her breathing. Does have a sig nificant history of asthma states she has been previously hospitalized for asthma exacerbations. PAST MEDICAL HISTORY: As noted above MEDICATIONS: Reviewed home medications and she states compliance with her home warfarin SOCIAL HISTORY: Former smoker, PHYSICAL EXAM: GENERAL: alert and oriented seated on the stretcher with nebulizer in place Head: normocephalic and atraumatic EYES: No injection, discharge or icterus. NECK: Trachea midline. Supple. ENT: Mucous membranes pink and moist. LUNGS: Airway patent. No retractions. Breath sounds with some diffuse expiratory wheeze, somewhat tachypneic HEART: Regular rate and rhythm. Healing midline sternotomy wound without significant erythema some mild diffuse tenderness. ABDOMEN: Soft and non-tender, without guarding or rebound. SKIN: Acyanotic, warm, dry, without rashes with a few scattered small contusions in the upper extremities. EXTREMITIES: Without swelling, tenderness or deformity NEUROLOGICAL: No focal deficits. No aphasia. No facial droop or slurred speech. EK bpm normal sinus rhythm. No PVC or PAC. No acute ST segment elevation with some nonspecific lateral and inferior T wave flattening. QTc 462. CONTINUOUS CARDIAC MONITORING: was ordered and showed a heart rate of 70s-80s bpm in normal sinus rhythm Patient's laboratory studies and imaging reviewed. Differential includes Reactive airway disease, pneumonia, pneumothorax, COPD, CHF, infections, cardiac ischemia, pulmonary embolism, musculoskeletal, gastrointestinal, as well as other pathologies. IMPRESSION/MEDICAL DECISION MAKING: Patient significant extensive history. Now does sound wheezy. Received IV steroids as well as nebulizer prior to arrival given additional DuoNeb. Anticoagulated lowers my suspicion for VTE and had a CT of the chest last month. INR checked. Basic labs checked. EKG and troponin to be completed but chest pain seems more musculoskeletal and likely postoperative related. Given some morphine for this. Respiratory viral panel will be sent. Chest x-ray be obtained to exclude pneumonia. More concerned at this time regarding her breathing status and the necessary of the chest pain has been evaluated multiple times in the past again basic evaluation including troponin and EKG will be completed. She has been referred to pain management for discomfort in her chest previously. Blood work with minimal anemia no leukocytosis. INR subtherapeutic at 1.4. Doubt acute PE and less than 36 hours. Concerning given her history of mechanical heart valve. Troponin mildly elevated 19.5. BNP minimally elevated much less than previous and chest x-ray on review and report does question some pulmonary edema of the lower suspicion for acute ACS. Doubt significant fluid overload. Respiratory viral panel does combat positive for metapneumovirus likely triggering some asthma/COPD and some of her shortness of breath symptoms. Again her received steroids and getting DuoNeb. Discussed with anticoagulation clinic Dr. Lozano options for heparin versus Lovenox with the need for anticoagulation. Did recommend a extra dose of warfarin tonight. Given her significant symptoms with the slightly elevated troponin and subtherapeutic INR discussed with the hospitalist for further care here. Lovenox ordered. DIAGNOSIS: Shortness of breath, human metapneumovirus, acute asthma flare, subtherapeutic INR, mechanical mitral valve DISPOSITION: Hospitalist will evaluate Patient was agreeable with this plan. Past Med/Surg History Medical History Acute chest pain Asthma exacerbation in COPD Asthma-COPD overlap syndrome Atrial fibrillation Bronchospasm Chest pain Chest pain CHF exacerbation Chronic diastolic congestive heart failure Chronic low back pain CSF leak hx Degeneration of cervical intervertebral disc Diabetes mellitus, type 2 oral medication DVT prophylaxis Dyspnea on exertion so severe pt is wheelchair bound (per [facility]) External hemorrhoids GERD (gastroesophageal reflux disease) Hemiplegic migraine History of COVID-19 diagnosed 2yrs ago---mild symptoms, no symptoms now History of pulmonary embolism on xarelto Hoarseness of voice Hx of coronary artery disease Hyperglycemia due to type 2 diabetes mellitus Mitral valve insufficiency Obesity SMITA on CPAP Postoperative keloid scar sternal Sternal pain Urinary incontinence Vertebral artery stenosis Vertigo Vitamin D deficiency Surgical History Facial fracture (2014) WITH RECONSTRUCTION History of bilateral tubal ligation History of cardiac cath X2 STENTS - (~2010, IN [place], [place]). NO STENTS - ([facility] @ ~2014) No stents ([facility] 05/11/2022) [place] [facility] [place] of colonoscopy History of esophagogastroduodenoscopy (EGD) History of heart artery stent X2 STENTS (2010) UNSURE OF KIND. NO STENT CARDS PER PT. History of hemorrhoidectomy (~2017) @ [facility] History of mandibular surgery History of transesophageal echocardiography (GEORGETTE) performed 06/21/22 @ [facility]---per report pt has severe mitral valve insufficiency S/P left knee arthroscopy S/P MVR (mitral valve repair) S/p tibial fracture open treatment of Fx with plate/screws, Left leg Status post right foot surgery Family History Mother Breast cancer, Onset Age: 64 Type 2 diabetes mellitus Father Diabetes Coronary heart disease Type 2 diabetes mellitus Myocardial infarction, Onset Age: 52 Family/Other Hypertension sibling Denies family history of Ovarian cancer Social History Smoking Status: Former smoker Tobacco Type: Cigarettes Age Started Using Tobacco: 13; Age Quit Using Tobacco: 56; packs per day: 0.5; Cigarettes Per Day: 1/2 pack per day; Second Hand Exposure: No; Do You Dip or Chew Tobacco: No; Tobacco Cessation Education Requested by Patient: No Hx Alcohol Use: No Hx Substance Use: No Preferred Language: Tamazight Communication Ability: Effective Visual Impairment: No Limitations Hearing Ability: Normal Elephant Keeper Required: No Beliefs That Will Affect Care: None marital status: Current Living Situation: Spouse Current Living Situation Comment: Home with current occupational status: disabled How many Children do You have: 5 Other Information That Helps Us Care for You: No Feels Safe at Home: Yes Safety Concerns: Feels Safe At This Time Childhood Exposure to Second-Hand Smoke: No caffeine: Yes (1/2 cup of coffee a day) during the past year weight has: remained stable Dental Care, Regularly: No Physical Activity Frequency: 1-2 Times per Week Seatbelt Use: always Sunscreen Use: No Assistive Devices: Cane, CPAP, Nebulizer and Scooter/Electric Scooter Allergies Allergies Allergy/AdvReac Type Severity Reaction Status Date / Time No Known Allergies Allergy Verified 01/11/23 15:27 Home Meds Home Medications Medication Instructions Recorded Confirmed atorvastatin 40 mg tablet 40 mg PO QPM 09/02/22 01/11/23 chlorhexidine gluconate 0.12 % 15 ml buccal BID 09/02/22 01/11/23 mouthwash diclofenac sodium 1 % topical gel 4 g topical QID PRN Pain 09/02/22 01/11/23 (Arthritis Pain (diclofenac)) fluticasone propionate 100 1 inh inhalation BID 09/02/22 01/11/23 mcg/actuation blister powder for inhalation mometasone-formoterol HFA 200 2 puff inhalation Q12H 09/02/22 01/11/23 mcg-5 mcg/actuation aerosol inhaler (Dulera) metoprolol succinate 25 mg 25 mg PO QAM 09/23/22 01/11/23 tablet,extended release 24 hr fluticasone furoate 100 1 inh inhalation DAILY 09/24/22 01/11/23 mcg-vilanterol 25 mcg/dose inhalation powder (Breo Ellipta) pantoprazole 40 mg tablet,delayed 40 mg PO AMHS 09/24/22 01/11/23 release furosemide 40 mg tablet 80 mg PO QAM 11/01/22 01/11/23 warfarin 5 mg tablet See Rx Instructions .Route .COMPLEX 12/27/22 01/11/23 dulaglutide 0.75 mg/0.5 mL 0.75 mg subcut WK 01/11/23 01/11/23 subcutaneous pen injector (Trulicity) Previous Rx's Medication Instructions Recorded nicotine 21 mg/24 hr daily 21 mg transdermal QAM #30 ea 01/26/22 transdermal patch (Nicoderm CQ) albuterol sulfate 90 mcg/actuation 2 puff inhalation Q6 PRN Shortness 05/03/22 aerosol inhaler Of Breath Or Wheezing #18 grams ipratropium bromide 17 2 puff inhalation TID #12.9 grams 05/03/22 mcg/actuation HFA aerosol inhaler (Atrovent HFA) hydrocortisone 1 %-pramoxine 1 % 1 applic DC BID PRN hemorrhoids 07/18/22 rectal foam (Proctofoam HC) #10 grams losartan 25 mg tablet 25 mg PO QAM #60 tabs 07/18/22 Bedside Commode #1 ea 08/04/22 Hospital Bed Homecare #1 ea 08/12/22 mupirocin 2 % topical ointment 1 applic topical TID #15 grams 09/25/22 metformin 750 mg tablet,extended 750 mg PO TID #90 tabs 09/26/22 release 24 hr ipratropium 0.5 mg-albuterol 3 mg 3 ml NEB Q6H PRN 11/02/22 (2.5 mg base)/3 mL nebulization wheezing/SOB/cough #180 mL soln nitroglycerin 0.4 mg sublingual 0.4 mg sublingual Q5M PRN Chest 11/02/22 tablet Pain #30 tabs potassium chloride 10 mEq 20 meq PO DAILY 30 days #120 caps 11/02/22 capsule,extended release cyclobenzaprine 5 mg tablet 5 mg PO TID PRN muscle spasm #30 12/26/22 tabs pregabalin 50 mg capsule 50 mg PO TID #90 caps 01/03/23 Results & Data (ED) Vital Signs Vital Signs - 24 hr 01/11/23 14:14 01/11/23 14:26 01/11/23 14:48 Temperature 36.6 C Temperature Source Oral Pulse Rate 81 80 Pulse Rate [Finger] Respiratory Rate 24 Respiratory Effort / Characteristics Non-Labored Spontaneous Respiratory Depth Normal Respiratory Pattern Tachypnea Blood Pressure 122/74 Blood Pressure [Right Arm] Blood Pressure Mean 90 Blood Pressure Mean [Right Arm] Pulse Oximetry 100 100 Oxygen Delivery Method Nasal Cannula Nasal Cannula Oxygen Flow Rate 8 8 Sepsis Recent Fever Within 48 Hours No Sepsis New/Unexplained Change in Mental Status N/A Sepsis Action Taken by Nursing No Action Required 01/11/23 15:16 01/11/23 15:48 01/11/23 16:49 Temperature Temperature Source Pulse Rate Pulse Rate [Finger] 83 78 80 Respiratory Rate 26 H 20 22 Respiratory Effort / Characteristics Labored Respiratory Depth Normal Normal Respiratory Pattern Blood Pressure Blood Pressure [Right Arm] 151/77 H 140/83 161/92 H Blood Pressure Mean Blood Pressure Mean [Right Arm] 101 102 115 Pulse Oximetry 99 97 100 Oxygen Delivery Method Nebulizer Nebulizer Nebulizer Oxygen Flow Rate 7 7 7 Sepsis Recent Fever Within 48 Hours Sepsis New/Unexplained Change in Mental Status Sepsis Action Taken by Nursing 01/11/23 17:29 Temperature Temperature Source Pulse Rate Pulse Rate [Finger] 85 Respiratory Rate 20 Respiratory Effort / Characteristics Respiratory Depth Respiratory Pattern Blood Pressure Blood Pressure [Right Arm] 161/89 H Blood Pressure Mean Blood Pressure Mean [Right Arm] 113 Pulse Oximetry 96 Oxygen Delivery Method Room Air Oxygen Flow Rate Sepsis Recent Fever Within 48 Hours Sepsis New/Unexplained Change in Mental Status Sepsis Action Taken by Nursing Laboratory Data 01/11/23 15:15 01/11/23 15:15 Lab Results 01/11/23 01/11/23 01/11/23 Range/Units 15:15 15:15 15:15 WBC 6.74 (4.8-10.8) K/ul RBC 4.18 L (4.20-5.40) M/uL Hgb 11.7 L (12.0-16.0) g/dl Hct 37.9 (37.0-47.0) % MCV 90.7 (80.0-100.0) fL MCH 28.0 (25.0-34.0) pg MCHC 30.9 L (32.0-36.0) g/dL RDW Std Deviation 56.4 H (36.4-46.3) fL RDW Coeff of Majo 16.9 H (11.5-14.5) % Plt Count 231 (130-400) K/uL MPV 11.6 (9.4-12.4) fL Immature Gran % (Auto) 0.3 % Neut % (Auto) 48.1 % Lymph % (Auto) 42.1 % [place] % (Auto) 6.4 % Eos % (Auto) 2.7 % Baso % (Auto) 0.4 % Neut # (Auto) 3.24 (1.40-6.50) K/uL Lymph # (Auto) 2.84 (1.2-3.4) K/uL [place] # (Auto) 0.43 (0.11-0.59) K/uL Eos # (Auto) 0.18 (0-0.50) K/uL Baso # (Auto) 0.03 (0-0.2) K/uL Immature Gran # (Auto) 0.02 (0.01-0.20) K/uL PT 15.1 H (9.0-12.0) Seconds INR 1.4 H (0.9-1.1) APTT 30.9 (21.0-31.0) Seconds PTT Ratio 1.1 Sodium 142 (136-145) mmol/L Potassium 4.3 (3.5-5.1) mmol/L Chloride 110 H (98-107) mmol/L Carbon Dioxide 26 (21-32) mmol/L Anion Gap 6 (3-11) BUN 13 (6-23) mg/dl Creatinine 0.99 (0.6-1.2) mg/dl Est Cr Clr Drug Dosing 81.0 ml/min Est GFR ( Amer) 72.8 ml/min Est GFR (Non-Af Amer) 62.8 ml/min BUN/Creatinine Ratio 13.1 (10-20) Glucose 124 H (70-99(Fasting)) mg/dl Calcium 9.2 (8.6-10.3) mg/dl Magnesium 1.9 (1.7-2.4) mg/dl Total Bilirubin 0.3 (0.2-1.0) mg/dl AST 30 (13-39) U/L ALT 24 (7-52) U/L Alkaline Phosphatase 102 (34-104) U/L Troponin I High Sens 19.5 H (0-14) pg/ml B-Natriuretic Peptide (0-100) pg/ml Total Protein 7.5 (6.0-8.3) gm/dl Albumin 4.0 (3.4-5.0) gm/dl Globulin 3.5 (2.5-4.0) gm/dl Albumin/Globulin Ratio 1.1 (0.9-2) HCG, Qual (Negative) Urine Color Urine Appearance (Clear) Urine pH (4.5-7.5) Ur Specific [place] (1.000-1.030) Urine Protein (Negative) Urine Glucose (UA) (Negative) Urine Ketones (Negative) Urine Blood (Negative) Urine Nitrite (Negative) Urine Bilirubin (Negative) Urine Urobilinogen (Negative) Ur Leukocyte Esterase (Negative) Adenovirus (PCR) (NotDetected) B. pertussis DNA (PCR) (NotDetected) B.parapertussis DNA PCR (NotDetected) C. pneumoniae DNA (PCR) (NotDetected) Coronavirus OC43 (PCR) (NotDetected) Coronavirus HKU1 (PCR) (NotDetected) Coronavirus 229E (PCR) (NotDetected) SARS-CoV-2 (PCR) (NotDetected) Coronavirus NL63 (PCR) (NotDetected) Human Metapneumovir PCR (NotDetected) Influenza Type A (PCR) (NotDetected) Influenza Type B (PCR) (NotDetected) M. pneumoniae (PCR) (NotDetected) Parainfluenza 1 (PCR) (NotDetected) Parainfluenza 2 (PCR) (NotDetected) Parainfluenza 3 (PCR) (NotDetected) Parainfluenza 4 (PCR) (NotDetected) RSV (PCR) (NotDetected) Entero/Rhino (PCR) (NotDetected) 01/11/23 01/11/23 01/11/23 Range/Units 15:15 15:15 15:15 WBC (4.8-10.8) K/ul RBC (4.20-5.40) M/uL Hgb (12.0-16.0) g/dl Hct (37.0-47.0) % MCV (80.0-100.0) fL MCH (25.0-34.0) pg MCHC (32.0-36.0) g/dL RDW Std Deviation (36.4-46.3) fL RDW Coeff of Majo (11.5-14.5) % Plt Count (130-400) K/uL MPV (9.4-12.4) fL Immature Gran % (Auto) % Neut % (Auto) % Lymph % (Auto) % [place] % (Auto) % Eos % (Auto) % Baso % (Auto) % Neut # (Auto) (1.40-6.50) K/uL Lymph # (Auto) (1.2-3.4) K/uL [place] # (Auto) (0.11-0.59) K/uL Eos # (Auto) (0-0.50) K/uL Baso # (Auto) (0-0.2) K/uL Immature Gran # (Auto) (0.01-0.20) K/uL PT (9.0-12.0) Seconds INR (0.9-1.1) APTT (21.0-31.0) Seconds PTT Ratio Sodium (136-145) mmol/L Potassium (3.5-5.1) mmol/L Chloride (98-107) mmol/L Carbon Dioxide (21-32) mmol/L Anion Gap (3-11) BUN (6-23) mg/dl Creatinine (0.6-1.2) mg/dl Est Cr Clr Drug Dosing ml/min Est GFR ( Amer) ml/min Est GFR (Non-Af Amer) ml/min BUN/Creatinine Ratio (10-20) Glucose (70-99(Fasting)) mg/dl Calcium (8.6-10.3) mg/dl Magnesium (1.7-2.4) mg/dl Total Bilirubin (0.2-1.0) mg/dl AST (13-39) U/L ALT (7-52) U/L Alkaline Phosphatase (34-104) U/L Troponin I High Sens (0-14) pg/ml B-Natriuretic Peptide 151 H (0-100) pg/ml Total Protein (6.0-8.3) gm/dl Albumin (3.4-5.0) gm/dl Globulin (2.5-4.0) gm/dl Albumin/Globulin Ratio (0.9-2) HCG, Qual Negative (Negative) Urine Color Urine Appearance (Clear) Urine pH (4.5-7.5) Ur Specific [place] (1.000-1.030) Urine Protein (Negative) Urine Glucose (UA) (Negative) Urine Ketones (Negative) Urine Blood (Negative) Urine Nitrite (Negative) Urine Bilirubin (Negative) Urine Urobilinogen (Negative) Ur Leukocyte Esterase (Negative) Adenovirus (PCR) Not Detected (NotDetected) B. pertussis DNA (PCR) Not Detected (NotDetected) B.parapertussis DNA PCR Not Detected (NotDetected) C. pneumoniae DNA (PCR) Not Detected (NotDetected) Coronavirus OC43 (PCR) Not Detected (NotDetected) Coronavirus HKU1 (PCR) Not Detected (NotDetected) Coronavirus 229E (PCR) Not Detected (NotDetected) SARS-CoV-2 (PCR) Not Detected (NotDetected) Coronavirus NL63 (PCR) Not Detected (NotDetected) Human Metapneumovir PCR DETECTED A* (NotDetected) Influenza Type A (PCR) Not Detected (NotDetected) Influenza Type B (PCR) Not Detected (NotDetected) M. pneumoniae (PCR) Not Detected (NotDetected) Parainfluenza 1 (PCR) Not Detected (NotDetected) Parainfluenza 2 (PCR) Not Detected (NotDetected) Parainfluenza 3 (PCR) Not Detected (NotDetected) Parainfluenza 4 (PCR) Not Detected (NotDetected) RSV (PCR) Not Detected (NotDetected) Entero/Rhino (PCR) Not Detected (NotDetected) 01/11/23 Range/Units 16:45 WBC (4.8-10.8) K/ul RBC (4.20-5.40) M/uL Hgb (12.0-16.0) g/dl Hct (37.0-47.0) % MCV (80.0-100.0) fL MCH (25.0-34.0) pg MCHC (32.0-36.0) g/dL RDW Std Deviation (36.4-46.3) fL RDW Coeff of Majo (11.5-14.5) % Plt Count (130-400) K/uL MPV (9.4-12.4) fL Immature Gran % (Auto) % Neut % (Auto) % Lymph % (Auto) % [place] % (Auto) % Eos % (Auto) % Baso % (Auto) % Neut # (Auto) (1.40-6.50) K/uL Lymph # (Auto) (1.2-3.4) K/uL [place] # (Auto) (0.11-0.59) K/uL Eos # (Auto) (0-0.50) K/uL Baso # (Auto) (0-0.2) K/uL Immature Gran # (Auto) (0.01-0.20) K/uL PT (9.0-12.0) Seconds INR (0.9-1.1) APTT (21.0-31.0) Seconds PTT Ratio Sodium (136-145) mmol/L Potassium (3.5-5.1) mmol/L Chloride (98-107) mmol/L Carbon Dioxide (21-32) mmol/L Anion Gap (3-11) BUN (6-23) mg/dl Creatinine (0.6-1.2) mg/dl Est Cr Clr Drug Dosing ml/min Est GFR ( Amer) ml/min Est GFR (Non-Af Amer) ml/min BUN/Creatinine Ratio (10-20) Glucose (70-99(Fasting)) mg/dl Calcium (8.6-10.3) mg/dl Magnesium (1.7-2.4) mg/dl Total Bilirubin (0.2-1.0) mg/dl AST (13-39) U/L ALT (7-52) U/L Alkaline Phosphatase (34-104) U/L Troponin I High Sens (0-14) pg/ml B-Natriuretic Peptide (0-100) pg/ml Total Protein (6.0-8.3) gm/dl Albumin (3.4-5.0) gm/dl Globulin (2.5-4.0) gm/dl Albumin/Globulin Ratio (0.9-2) HCG, Qual (Negative) Urine Color Yellow Urine Appearance Clear (Clear) Urine pH 5.0 (4.5-7.5) Ur Specific [place] 1.013 (1.000-1.030) Urine Protein Negative (Negative) Urine Glucose (UA) Negative (Negative) Urine Ketones Negative (Negative) Urine Blood Negative (Negative) Urine Nitrite Negative (Negative) Urine Bilirubin Negative (Negative) Urine Urobilinogen Negative (Negative) Ur Leukocyte Esterase Negative (Negative) Adenovirus (PCR) (NotDetected) B. pertussis DNA (PCR) (NotDetected) B.parapertussis DNA PCR (NotDetected) C. pneumoniae DNA (PCR) (NotDetected) Coronavirus OC43 (PCR) (NotDetected) Coronavirus HKU1 (PCR) (NotDetected) Coronavirus 229E (PCR) (NotDetected) SARS-CoV-2 (PCR) (NotDetected) Coronavirus NL63 (PCR) (NotDetected) Human Metapneumovir PCR (NotDetected) Influenza Type A (PCR) (NotDetected) Influenza Type B (PCR) (NotDetected) M. pneumoniae (PCR) (NotDetected) Parainfluenza 1 (PCR) (NotDetected) Parainfluenza 2 (PCR) (NotDetected) Parainfluenza 3 (PCR) (NotDetected) Parainfluenza 4 (PCR) (NotDetected) RSV (PCR) (NotDetected) Entero/Rhino (PCR) (NotDetected) Administered Medications Acetaminophen (Acetaminophen 325 Mg Tab) 650 mg PO Q4H PRN PRN Reason: Pain (1-5) Or Fever Stop: 02/10/23 19:36 Last Admin: 01/11/23 20:20 Dose: 650 mg Documented By: SAMEER Atorvastatin Calcium (Atorvastatin 40 Mg Tab) 40 mg PO QPM KARLA Stop: 02/10/23 20:59 Last Admin: 01/11/23 21:12 Dose: 40 mg Documented By: SAMEER Azithromycin (Azithromycin 250 Mg Tab) 500 mg PO QPM KRALA Stop: 01/14/23 20:59 Last Admin: 01/11/23 21:11 Dose: 500 mg Documented By: MNLuc Budesonide (Budesonide 0.5 Mg/2 Ml Vial (Pulmicort)) 0.5 mg NEB BIDR KARLA Stop: 02/10/23 19:36 Last Admin: 01/11/23 20:54 Dose: 0.5 mg Documented By: ND Enoxaparin Sodium (Enoxaparin Inj 120 Mg/0.8 Ml Syr) 120 mg SQ Q12H KARLA Stop: 02/10/23 17:29 Last Admin: 01/11/23 17:32 Dose: 120 mg Documented By: Formoterol Fumarate (Formoterol 20 Mcg/2 Ml Vial) 20 mcg NEB BID KARLA Stop: 02/10/23 20:59 Last Admin: 01/11/23 20:54 Dose: 20 mcg Documented By: MARCELO Methylprednisolone 40 mg/ (Syringe) 0.64 mls @ 1.5 mls/min IV TID KARLA Stop: 02/10/23 20:59 Last Admin: 01/11/23 21:15 Dose: 1.5 mls/min Documented By: SAMEER Insulin Aspart (Insulin Aspart Per Unit Charge) 0 units SC ACHS KARLA Stop: 02/10/23 20:59 Last Admin: 01/11/23 21:07 Dose: 6 units Documented By: SAMEER Co-signed By: ALBERT Insulin Glargine (Lantus Per Unit Charge) 20 units SQ BID [facility] Stop: 02/10/23 20:59 Last Admin: 01/11/23 21:08 Dose: 20 units Documented By: SAMEER Co-signed By: ALBERT Mupirocin (Mupirocin 2% Oint 22 Gm Tube) 1 appln TOP TID [facility] Stop: 02/10/23 20:59 Last Admin: 01/11/23 21:17 Dose: 1 appln Documented By: SAMEER Pantoprazole Sodium (Pantoprazole 40 Mg Tab) 40 mg PO AMHS [facility] Stop: 02/10/23 20:59 Last Admin: 01/11/23 21:12 Dose: 40 mg Documented By: SAMEER Pregabalin (Pregabalin 50 Mg Cap) 50 mg PO TID [facility] Stop: 02/10/23 20:59 Last Admin: 01/11/23 20:20 Dose: 50 mg Documented By: SAMEER Discontinued Medications Albuterol (Albut/Ipratrop 3mg/0.5mg Neb 3 Ml Vial) 12 ml NEB ONE ONE; Protocol Stop: 01/11/23 15:16 Last Admin: 01/11/23 15:21 Dose: 12 ml Documented By: Magnesium Sulfate/Dextrose (Magnesium Sulfate / D5w) 1 gm in 100 mls @ 600 mls /hr IV Q10M KARLA Stop: 01/11/23 18:34 Last Infusion: 01/11/23 18:48 Dose: 0 mls/hr Documented By: Admin: 01/11/23 18:35 Dose: 600 mls/hr Documented By: Infusion: 01/11/23 18:30 Dose: 600 mls/hr Documented By: Admin: 01/11/23 18:19 Dose: 600 mls/hr Documented By: Methylprednisolone (Methylprednisolone 125 Mg/2 Ml Vial) 125 mg IV NOW STA Stop: 01/11/23 18:00 Last Admin: 01/11/23 18:14 Dose: Not Given Documented By: JS Morphine Sulfate (Morphine Sulfate 4 Mg/Ml 1 Ml Carp\Vial) 4 mg IV NOW STA Stop: 01/11/23 15:16 Last Admin: 01/11/23 15:20 Dose: 4 mg Documented By: Morphine Sulfate (Morphine Sulfate 4 Mg/Ml 1 Ml Carp\Vial) 4 mg IV NOW STA Stop: 01/11/23 18:03 Last Admin: 01/11/23 18:35 Dose: 4 mg Documented By: Warfarin Sodium (Warfarin Sod 7.5 Mg Tab) 15 mg PO NOW ONE Stop: 01/11/23 18:36 Last Admin: 01/11/23 20:00 Dose: 15 mg Documented By: MNM Imaging Data Radiologist's Impression: Chest X-Ray 01/11/23 15:15 XR chest 1V portable CLINICAL HISTORY: Dyspnea COMPARISON STUDY: Chest CT December 15, 2022. Chest radiograph January 09, 2023. FINDINGS: Median sternotomy wires and prosthetic mitral valve are noted. Cardiomediastinal silhouette is stable. There is no pneumothorax or pleural effusion. There is no consolidation to suggest pneumonia. Minimal linear bibasilar densities favor atelectasis. There is pulmonary vascular congestion without overt pulmonary edema. IMPRESSION: Pulmonary vascular congestion without overt pulmonary edema. ACT 112: Negative or not required by law. Electronically signed by: Giuliano Juares M.D. 01/11/2023 3:55 PM Discharge Plan Visit Data Chief Complaint: Shortness of Breath/Dyspnea Stated Complaint: SOB ED Provider: Kolby Huerta Discharge Problem: Sternal pain, Asthma with COPD, History of mitral valve replacement with mechanical valve, Acute dyspnea, Elevated troponin I level, Subtherapeutic anticoagulation, Infection due to human metapneumovirus (hMPV) Patient Disposition: Admitted As Inpatient Discharge Instructions Interventions: ED Discharge Assessment Last Done: 01/11/23 18:47
[2023-01-11 15:45] LABS: Basophils # (auto) 0.03 K/uL (0-0.2); Basophils % (auto) 0.4 %; Eosinophils # (auto) 0.18 K/uL (0-0.50); Eosinophils % (auto) 2.7 %; Hematocrit (blood only) 37.9 % (37.0-47.0); Hemoglobin 11.7 g/dl (12.0-16.0); Immature Granulocytes # (auto) 0.02 K/uL (0.01-0.20); Immature Granulocytes % (auto) 0.3 %; Lymphocytes # (auto) 2.84 K/uL (1.2-3.4); Lymphocytes % (auto) 42.1 %; Mean Corpuscular Hgb Conc 30.9 g/dL (32.0-36.0); Mean Corpuscular Volume 90.7 fL (80.0-100.0); Mean Platelet Volume 11.6 fL (9.4-12.4); Monocytes # (auto) 0.43 K/uL (0.11-0.59); Monocytes % (auto) 6.4 %; Neutrophils # (auto) 3.24 K/uL (1.40-6.50); Neutrophils % (auto) 48.1 %; Platelet Count 231 K/uL (130-400); RDW Coefficient of Variation 16.9 % (11.5-14.5); RDW Standard Deviation 56.4 fL (36.4-46.3); Red Blood Count 4.18 M/uL (4.20-5.40); White Blood Count 6.74 K/ul (4.8-10.8)
--- NOTE | 2023-01-11 15:56 | XRay Report ---
XR chest 1V portable CLINICAL HISTORY: Dyspnea COMPARISON STUDY: Chest CT December 15, 2022. Chest radiograph January 09, 2023. FINDINGS: Median sternotomy wires and prosthetic mitral valve are noted. Cardiomediastinal silhouette is stable. There is no pneumothorax or pleural effusion. There is no consolidation to suggest pneumo armaan. Minimal linear bibasilar densities favor atelectasis. There is pulmonary vascular congestion wit hout overt pulmonary edema. IMPRESSION: Pulmonary vascular congestion without overt pulmonary edema. ACT 112: Negative or not required by law. Electronically signed by: Giuliano Juares M.D. 01/11/2023 3:55 PM
[2023-01-11 16:09] LABS: Albumin Globulin Ratio 1.1 (0.9-2); BUN Creatinine Ratio 13.1 (10-20); Bilirubin,Total 0.3 mg/dl (0.2-1.0); Calcium 9.2 mg/dl (8.6-10.3); Est GFR (African American) 72.8 ml/min; Est GFR (Non-African American) 62.8 ml/min; Globulin 3.5 gm/dl (2.5-4.0); Magnesium 1.9 mg/dl (1.7-2.4); Potassium 4.3 mmol/L (3.5-5.1); Total Protein 7.5 gm/dl (6.0-8.3)
[2023-01-11 16:12] LABS: Pregnancy Test, Serum Negative (Negative)
[2023-01-11 16:17] LABS: Troponin I High Sensitivity 19.5 pg/ml (0-14)
[2023-01-11 16:18] LABS: INR 1.4 (0.9-1.1); Partial Thromboplastin Ratio 1.1; Partial Thromboplastin Time 30.9 Seconds (21.0-31.0); Prothrombin Time 15.1 Seconds (9.0-12.0)
--- NOTE | 2023-01-11 16:38 | Electrocardiogram Report ---
Test Reason : Blood Pressure : / mmHG Vent. Rate : 078 BPM Atrial Rate : 078 BPM P-R Int : 150 ms QRS Dur : 078 ms QT Int : 406 ms P-R-T Axes : 000 017 138 degrees QTc Int : 462 ms Poor data quality, interpretation may be adversely affected Ectopic atrial rhythm versus junctional T wave abnormality, consider lateral ischemia Abnormal ECG Confirmed by Kwaku Dominguez ([id number]) on 01/11/2023 4:38:26 PM Referred By: Confirmed By:Syd Dominguez
[2023-01-11 16:48] LABS: Adenovirus PCR Not Detected (NotDetected); Bordetella parapertussis PCR Not Detected (NotDetected); Bordetella pertussis PCR Not Detected (NotDetected); Chlamydia pneumoniae PCR Not Detected (NotDetected); Coronavirus 229E PCR Not Detected (NotDetected); Coronavirus CoV-2 (COVID19)PCR Not Detected (NotDetected); Coronavirus HKU1 PCR Not Detected (NotDetected); Coronavirus NL63 PCR Not Detected (NotDetected); Coronavirus OC43PCR Not Detected (NotDetected); Influenza A PCR Not Detected (NotDetected); Influenza B PCR Not Detected (NotDetected); Mycoplasma pneumoniae PCR Not Detected (NotDetected); Parainfluenza Virus 1 PCR Not Detected (NotDetected); Parainfluenza Virus 2 PCR Not Detected (NotDetected); Parainfluenza Virus 3 PCR Not Detected (NotDetected); Parainfluenza Virus 4 PCR Not Detected (NotDetected); Respiratory Syncytial VirusPCR Not Detected (NotDetected); Rhinovirus/Enterovirus PCR Not Detected (NotDetected)
[2023-01-11 16:54] LABS: Human Metapneumovirus PCR DETECTED (NotDetected)
[2023-01-11 17:16] LABS: Appearance Urine Clear (Clear); Bilirubin Urine Negative (Negative); Blood Urine Negative (Negative); Color Urine Yellow; Glucose Urine UA Negative (Negative); Ketones Urine Negative (Negative); Leukocyte Esterase Urine Negative (Negative); Nitrite Urine Negative (Negative); Protein Urine Negative (Negative); Specific Gravity Urine 1.013 (1.000-1.030); Urobilinogen Urine Negative (Negative)
--- NOTE | 2023-01-11 17:26 | History & Physical Report ---
Date of Service January 11, 2023 Assessment & Plan (1) Acute asthma exacerbation: Plan: Severe exacerbation with moving little air on auscultation, speaking in single words, agitated and using accessory muscles. Duonebs q4h Formoterol Neb BID Budesonide NEB BID Solu-medrol 125mg IM given en route. Continue 40mg IV TID. Mg sulfate 2g IV over 20 minutes ordered Azithromycin 500mg PO daily for 3 days (2) Infection due to human metapneumovirus (hMPV): Plan: Suspect cause of acute asthma exacerbation (3) Chest pain: Plan: Appear to be chronic since her TAVR procedure. Acutely worse due to asthma exacerbation and coughing. Not concerning for ACS. Troponin only minimally elevated. (4) History of mitral valve replacement with mechanical valve: Plan: Aim INR 2.5-3.5 Start Lovenox while INR <2 Give increased dose of warfarin today 15mg PO then continue her usual schedule. Likely to go up with azithromycin in addition. (5) CHF (congestive heart failure): Plan: Will continue her usual Lasix dosing currently as suspect mostly her presentation is asthma induced. Consider IV Lasix if breathing remains layered as mild pulmonary vascular congestion suspected on CXR. Low Na diet I&Os (6) DMII (diabetes mellitus, type 2): Plan: Hemoglobin A1C 9.0 in September 2022, will repeat with AM labs Hold metformin and Trulicity Start Lantus 10mg units BID Novolog: --Goal BSG Range: Low 110 mg/dL, High 140 mg/dL --Correction Factor: 45 mg/dL/unit --Carbohydrate ratio = 15 g/unit --BSGs ACHS if eating, q6h if npo Consult pharmacy for glycemic control in the setting of steroid use (7) GERD (gastroesophageal reflux disease): Plan: Continue pantoprazole 40mg PO BID (8) SMITA on CPAP: Plan: CPAP HS Plan VTE Prophylaxis - bridging lovenox + warfarin Diet - low Na, heart healthy, T2DM Disposition - observation status to PCU Admission and Anticipated Discharge Date Admission Date: January 11, 2023 History of Present Illness Chief Complaint: Shortness of breath Primary Care Provider: DO Burak Hinesndy LynnetteyeimyKirill is a 57 year old female with congestive heart failure, mitral valve replacement, asthma-COPD overlap, history of pulmonary embolism who presents to the ER with shortness of breath. She reports a 2 day history of shortness of breath and chest tightness which feels similar to her prior asthma exacerbation. She denies any fever, chills, nasal congestion or sinus pain. She has an associated dry cough. She has had chest pain since her mitral valve replacement which has not significant changed but worse when she coughs. En route in the ambulance she was given a duoneb and Solu-medrol 125mg IM. She reports some mild improvement with nebulizers given in the ER. Historically it has taken her several days to improve from her asthma exacerbations in hospital. In the ER she is metapneumovirus positive on the [employer] PCR. She is maintaining saturation > 92% on room air. However due to work of breathing, wheezing and lack of air movement she was referred to medicine for admission.Her INR is subtherapeutic for her mitral valve replacement and the ER provider discussed with Dr Lozano who recommended bridging anticogulation at this time. Allergies Allergy/AdvReac Type Severity Reaction Status Date / Time No Known Allergies Allergy Verified 01/11/23 15:27 Home Medications Medication Instructions Recorded Confirmed Type nicotine 21 mg/24 hr daily 21 mg transdermal QAM #30 ea 01/26/22 01/11/23 Rx transdermal patch (Nicoderm CQ) albuterol sulfate 90 mcg/actuation 2 puff inhalation Q6 PRN Shortness 05/03/22 01/11/23 Rx aerosol inhaler Of Breath Or Wheezing #18 grams ipratropium bromide 17 2 puff inhalation TID #12.9 grams 05/03/22 01/11/23 Rx mcg/actuation HFA aerosol inhaler (Atrovent HFA) hydrocortisone 1 %-pramoxine 1 % 1 applic MA BID PRN hemorrhoids 07/18/22 01/11/23 Rx rectal foam (Proctofoam HC) #10 grams losartan 25 mg tablet 25 mg PO QAM #60 tabs 07/18/22 01/11/23 Rx Bedside Commode #1 ea 08/04/22 12/27/22 Rx Hospital Bed Homecare #1 ea 08/12/22 12/27/22 Rx atorvastatin 40 mg tablet 40 mg PO QPM 09/02/22 01/11/23 History chlorhexidine gluconate 0.12 % 15 ml buccal BID 09/02/22 01/11/23 History mouthwash diclofenac sodium 1 % topical gel 4 g topical QID PRN Pain 09/02/22 01/11/23 History (Arthritis Pain (diclofenac)) fluticasone propionate 100 1 inh inhalation BID 09/02/22 01/11/23 History mcg/actuation blister powder for inhalation mometasone-formoterol HFA 200 2 puff inhalation Q12H 09/02/22 01/11/23 History mcg-5 mcg/actuation aerosol inhaler (Dulera) metoprolol succinate 25 mg 25 mg PO QAM 09/23/22 01/11/23 History tablet,extended release 24 hr fluticasone furoate 100 1 inh inhalation DAILY 09/24/22 01/11/23 History mcg-vilanterol 25 mcg/dose inhalation powder (Breo Ellipta) pantoprazole 40 mg tablet,delayed 40 mg PO AMHS 09/24/22 01/11/23 History release mupirocin 2 % topical ointment 1 applic topical TID #15 grams 09/25/22 01/11/23 Rx metformin 750 mg tablet,extended 750 mg PO TID #90 tabs 09/26/22 01/11/23 Rx release 24 hr furosemide 40 mg tablet 80 mg PO QAM 11/01/22 01/11/23 History ipratropium 0.5 mg-albuterol 3 mg 3 ml NEB Q6H PRN 11/02/22 01/11/23 Rx (2.5 mg base)/3 mL nebulization wheezing/SOB/cough #180 mL soln nitroglycerin 0.4 mg sublingual 0.4 mg sublingual Q5M PRN Chest 11/02/22 01/11/23 Rx tablet Pain #30 tabs potassium chloride 10 mEq 20 meq PO DAILY 30 days #120 caps 11/02/22 01/11/23 Rx capsule,extended release cyclobenzaprine 5 mg tablet 5 mg PO TID PRN muscle spasm #30 12/26/22 01/11/23 Rx tabs warfarin 5 mg tablet See Rx Instructions .Route .COMPLEX 12/27/22 01/11/23 History pregabalin 50 mg capsule 50 mg PO TID #90 caps 01/03/23 01/11/23 Rx dulaglutide 0.75 mg/0.5 mL 0.75 mg subcut WK 01/11/23 01/11/23 History subcutaneous pen injector (Trulicity) Past Med/Surg History Medical History Acute chest pain Asthma exacerbation in COPD Asthma-COPD overlap syndrome Atrial fibrillation Bronchospasm Chest pain Chest pain CHF exacerbation Chronic diastolic congestive heart failure Chronic low back pain CSF leak hx Degeneration of cervical intervertebral disc Diabetes mellitus, type 2 oral medication DVT prophylaxis Dyspnea on exertion so severe pt is wheelchair bound (per [facility] record) External hemorrhoids GERD (gastroesophageal reflux disease) Hemiplegic migraine History of COVID-19 diagnosed 2yrs ago---mild symptoms, no symptoms now History of pulmonary embolism on xarelto Hoarseness of voice Hx of coronary artery disease Hyperglycemia due to type 2 diabetes mellitus Mitral valve insufficiency Obesity SMITA on CPAP Postoperative keloid scar sternal Sternal pain Urinary incontinence Vertebral artery stenosis Vertigo Vitamin D deficiency Surgical History Facial fracture (2014) WITH RECONSTRUCTION History of bilateral tubal ligation History of cardiac cath X2 STENTS - (~2010, IN [place], [place]). NO STENTS - ([facility] @ ~2014) No stents ([facility] 05/11/2022) - [place] [facility] [place] [facility] [place] History of colonoscopy History of esophagogastroduodenoscopy (EGD) History of heart artery stent X2 STENTS (2010) UNSURE OF KIND. NO STENT CARDS PER PT. History of hemorrhoidectomy (~2017) @ [facility] History of mandibular surgery History of transesophageal [facility]GETTE) [facility]per report pt has severe mitral valve insufficiency S/P left knee arthroscopy S/P MVR (mitral valve repair) S/p tibial fracture open treatment of Fx with plate/screws, Left leg Status post right foot surgery Family History Mother Breast cancer, Onset Age: 64 Type 2 diabetes mellitus Father Diabetes Coronary heart disease Type 2 diabetes mellitus Myocardial infarction, Onset Age: 52 Family/Other Hypertension sibling Denies family history of Ovarian cancer Social History Smoking Status: Former smoker Tobacco Type: Cigarettes Age Started Using Tobacco: 13; Age Quit Using Tobacco: 56; packs per day: 0.5; Cigarettes Per Day: 1/2 pack per day; Second Hand Exposure: No; Do You Dip or Chew Tobacco: No; Tobacco Cessation Education Requested by Patient: No Hx Alcohol Use: No Hx Substance Use: No Preferred Language: Martiniquais Communication Ability: Effective Visual Impairment: No Limitations Hearing Ability: Normal Nut Packer Required: No Beliefs That Will Affect Care: None marital status: Current Living Situation: Spouse Current Living Situation Comment: Home with current occupational status: disabled How many Children do You have: 5 Other Information That Helps Us Care for You: No Feels Safe at Home: Yes Safety Concerns: Feels Safe At This Time Childhood Exposure to Second-Hand Smoke: No caffeine: Yes (1/2 cup of coffee a day) during the past year weight has: remained stable Dental Care, Regularly: No Physical Activity Frequency: 1-2 Times per Week Seatbelt Use: always Sunscreen Use: No Assistive Devices: Cane, CPAP, Nebulizer and Scooter/Electric Scooter Review of Systems Review of Systems: All systems reviewed & are unremarkable except as noted in HPI & below Physical Exam Constitutional: WD/WN, vitals as above Eyes: PERRL, conjunctivae normal, anicteric sclerae ENMT: external ear and nose normal, oropharynx normal Respiratory: + respiratory distress, + labored breathing, + uses accessory muscles, + cough and + pursed lip breathing; + not able to speak in complete sentence and no stridor Auscultation: + breath sounds absent (bibasal), + diminished lung sounds (severely throughout) and + wheezes (expiratory); no crackles Cardiovascular: Rate/Rhythm: regular rate and regular rhythm Heart Sounds: + click Extremities: normal capillary refill; no pedal edema Chest (Breasts): Additional Comments: Ches tpain worse on palpation Gastrointestinal (Abdomen): normal bowel sounds, soft, nontender, no hepatosplenomegaly Musculoskeletal: no cyanosis or clubbing, extremities motor strength 5/5 Skin: no rashes, warm and dry Neurologic: moves all extremities and awake; not confused Psychiatric: Orientation: alert and oriented x 3 Affect: + anxious affect Results & Data Results & Data Vital Signs (Past 12 Hours) Vital Signs Temp Pulse Pulse Resp BP BP Pulse Ox 01/11/23 16:49 80 22 161/92 H 100 01/11/23 15:48 78 20 140/83 97 01/11/23 15:16 83 26 H 151/77 H 99 01/11/23 14:48 80 01/11/23 14:26 100 01/11/23 14:14 36.6 C 81 24 122/74 100 O2 Del Method O2 Flow Rate 01/11/23 16:49 Nebulizer 7 01/11/23 15:48 Nebulizer 7 01/11/23 15:16 Nebulizer 7 01/11/23 14:48 01/11/23 14:26 Nasal Cannula 8 01/11/23 14:14 Nasal Cannula 8 Laboratory Results Abnormal lab results 01/11/23 01/11/23 01/11/23 Range/Units 15:15 15:15 15:15 RBC 4.18 L (4.20-5.40) M/uL Hgb 11.7 L (12.0-16.0) g/dl MCHC 30.9 L (32.0-36.0) g/dL RDW Std Deviation 56.4 H (36.4-46.3) fL RDW Coeff of Majo 16.9 H (11.5-14.5) % PT 15.1 H (9.0-12.0) Seconds INR 1.4 H (0.9-1.1) Chloride 110 H (98-107) mmol/L Glucose 124 H (70-99(Fasting)) mg/dl Troponin I High Sens 19.5 H (0-14) pg/ml B-Natriuretic Peptide (0-100) pg/ml Human Metapneumovir PCR (NotDetected) 01/11/23 01/11/23 Range/Units 15:15 15:15 RBC (4.20-5.40) M/uL Hgb (12.0-16.0) g/dl MCHC (32.0-36.0) g/dL RDW Std Deviation (36.4-46.3) fL RDW Coeff of Majo (11.5-14.5) % PT (9.0-12.0) Seconds INR (0.9-1.1) Chloride (98-107) mmol/L Glucose (70-99(Fasting)) mg/dl Troponin I High Sens (0-14) pg/ml B-Natriuretic Peptide 151 H (0-100) pg/ml Human Metapneumovir PCR DETECTED A* (NotDetected) Diagnostic Findings XR chest 1V portable CLINICAL HISTORY: Dyspnea COMPARISON STUDY: Chest CT December 15, 2022. Chest radiograph January 09, 2023. FINDINGS: Median sternotomy wires and prosthetic mitral valve are noted. Cardiomediastinal silhouette is stable. There is no pneumothorax or pleural effusion. There is no consolidation to suggest pneumonia. Minimal linear bibasilar densities favor atelectasis. There is pulmonary vascular congestion without overt pulmonary edema. IMPRESSION: Pulmonary vascular congestion without overt pulmonary edema. Medications Administered ER Medications Given: Duoneb 12ml NEB Morphine 4mg IV ECG Rate (beats per minute): 78 Rhythm: other (ectopic atrial vs. junctional) Findings: + other (T wave abnormality, consider lateral ischemia) Comparison ECG Date: from (January 09, 2023) Change: no significant change Code Status & VTE Plan Code Status Full VTE Prophylaxis Plan VTE Prophylaxis will be ordered: Yes PG Care Time/CCT Total # of Minutes Spent Total Time Spent with Patient: Total time spent is greater than 50% in coordination of care (as documented) at patient's floor/unit and/or counseling patient: Coding Level of Care Code 26891 INT INP/OBS CARE 3/75MIN Diagnoses Acute asthma exacerbation J45.901 Infection due to human metapneumovirus (hMPV) B34.8 Chest pain R07.9 Chest pain type: unspecified History of mitral valve replacement with mechanical valve Z95.2 CHF (congestive heart failure) I50.9 DMII (diabetes mellitus, type 2) E11.9 GERD (gastroesophageal reflux disease) K21.9 Esophagitis presence: esophagitis presence not specified SMITA on CPAP G47.33; Z99.89 (3) Chest pain Chest pain type: unspecified Qualified Code(s): R07.9 - Chest pain, unspecified (7) GERD (gastroesophageal reflux disease) Esophagitis presence: esophagitis presence not specified Qualified Code(s): K21.9 - Gastro-esophageal reflux disease without esophagitis
[2023-01-11] MEDS ORDERED: ENOXAPARIN 1 MG/KG SQ SCH (17:30)
[2023-01-11] MEDS: ENOXAPARIN INJ 120 MG/0.8 ML SYR SQ SCH (17:32)
[2023-01-11] MEDS ORDERED: methylPREDNISolone 125 MG/2 ML VIAL IV STA (17:59)
[2023-01-11] MEDS: MAGNESIUM SULFATE / D5W 1 GM/100 ML BAG IV SCH ×2 (18:19→18:35)
[2023-01-11] MEDS ORDERED: WARFARIN SOD 7.5 MG TAB PO ONE (18:35)
[2023-01-11] MEDS ORDERED: CARBOHYDRATES FOR HYPOGLYCEMIA PO PRN (19:37)
[2023-01-11] MEDS ORDERED: GLUCOSE 10 TAB/TUBE PO PRN (19:37)
[2023-01-11] MEDS ORDERED: DEXTROSE 50% 50 ML SYRINGE IV PRN (19:37)
[2023-01-11] MEDS ORDERED: ACETAMINOPHEN 325 MG TAB PO PRN ×2 (19:37→20:06)
[2023-01-11] MEDS ORDERED: GLUCOSE 40% GEL 15 GM TUBE PO PRN (19:37)
[2023-01-11] MEDS ORDERED: GLUCAGON FOR INJ 1 MG VIAL SQ PRN (19:37)
[2023-01-11] MEDS ORDERED: PHARMACY GLYCEMIC MGMT CONSULT PRN ×2 (19:37)
[2023-01-11] MEDS: PREGABALIN 50 MG CAP PO SCH (20:20)
[2023-01-11] MEDS: FORMOTEROL 20 MCG/2 ML VIAL NEB SCH (20:54)
[2023-01-11] MEDS: BUDESONIDE 0.5 MG/2 ML VIAL (PULMICORT) NEB SCH (20:54)
[2023-01-11] MEDS ORDERED: LANTUS PER UNIT CHARGE SQ SCH (21:00)
[2023-01-11] MEDS: INSULIN ASPART PER UNIT CHARGE SC SCH (21:07)
[2023-01-11] MEDS: AZITHROMYCIN 250 MG TAB PO SCH (21:11)
[2023-01-11] MEDS: ATORVASTATIN 40 MG TAB PO SCH (21:12)
[2023-01-11] MEDS: PANTOprazole 40 MG TAB PO SCH (21:12)
[2023-01-11] MEDS: methylPREDNISolone 40 MG in SYRINGE 0 ML IV SCH (21:15)
[2023-01-11] MEDS: MUPIROCIN 2% OINT 22 GM TUBE TOP SCH (21:17)
[2023-01-11] MEDS: MoRPHine SULFATE 2 MG/ML CARP IV PRN (22:06)
[2023-01-11] MEDS: CYCLOBENZAPRINE HCL 5 MG TAB PO PRN (22:07)
[2023-01-11] MEDS: COUGH DROP (SUGAR FREE) LOZ 24 LOZ/1 BOX BUCCAL PRN (23:26)
[2023-01-11] MEDS: ALBUT/IPRATROP 3MG/0.5MG NEB 3 ML VIAL NEB SCH (23:28)
[2023-01-12] MEDS: INSULIN ASPART PER UNIT CHARGE SC SCH ×6 (00:23→20:23)
[2023-01-12] MEDS: MoRPHine SULFATE 2 MG/ML CARP IV PRN ×6 (02:40→23:55)
[2023-01-12] MEDS: ALBUT/IPRATROP 3MG/0.5MG NEB 3 ML VIAL NEB SCH ×6 (03:06→22:47)
[2023-01-12] MEDS: ENOXAPARIN INJ 120 MG/0.8 ML SYR SQ SCH ×2 (04:26→16:05)
[2023-01-12] MEDS: FORMOTEROL 20 MCG/2 ML VIAL NEB SCH ×2 (06:46→18:58)
[2023-01-12] MEDS: BUDESONIDE 0.5 MG/2 ML VIAL (PULMICORT) NEB SCH ×2 (06:46→18:58)
[2023-01-12 07:24] LABS: Hematocrit (blood only) 34.4 % (37.0-47.0); Immature Granulocytes # (auto) 0.02 K/uL (0.01-0.20); Immature Granulocytes % (auto) 0.2 %; Lymphocytes # (auto) 1.65 K/uL (1.2-3.4); Lymphocytes % (auto) 19.8 %; Mean Corpuscular Hemoglobin 28.4 pg (25.0-34.0); Mean Corpuscular Volume 88.9 fL (80.0-100.0); Mean Platelet Volume 11.7 fL (9.4-12.4); Monocytes # (auto) 0.19 K/uL (0.11-0.59); Monocytes % (auto) 2.3 %; Neutrophils # (auto) 6.48 K/uL (1.40-6.50); Neutrophils % (auto) 77.7 %; Platelet Count 224 K/uL (130-400); RDW Standard Deviation 54.6 fL (36.4-46.3); Red Blood Count 3.87 M/uL (4.20-5.40); White Blood Count 8.34 K/ul (4.8-10.8)
[2023-01-12 07:33] LABS: BUN Creatinine Ratio 17.7 (10-20); Calcium 8.8 mg/dl (8.6-10.3); Creatinine Clr Calc Pharmacy 99.2 ml/min; Est GFR (African American) 95.6 ml/min; Est GFR (Non-African American) 82.5 ml/min; Potassium 4.4 mmol/L (3.5-5.1)
[2023-01-12 07:50] LABS: INR 1.5 (0.9-1.1); Prothrombin Time 15.3 Seconds (9.0-12.0)
[2023-01-12 08:08] LABS: Estimated Average Glucose 154 mg/dl
[2023-01-12] MEDS: methylPREDNISolone 40 MG in SYRINGE 0 ML IV SCH (08:18)
[2023-01-12] MEDS: LOSARTAN POTASSIUM 25 MG TAB PO SCH (08:19)
[2023-01-12] MEDS: METOPROLOL SUCC 25MG EXT REL TAB PO SCH (08:19)
[2023-01-12] MEDS: PANTOprazole 40 MG TAB PO SCH ×2 (08:19→20:25)
[2023-01-12] MEDS: MUPIROCIN 2% OINT 22 GM TUBE TOP SCH ×3 (08:20→20:25)
[2023-01-12] MEDS: POTASSIUM CHLORIDE CRTAB 20 MEQ TABCR PO SCH (08:20)
[2023-01-12] MEDS: PREGABALIN 50 MG CAP PO SCH ×3 (08:26→20:25)
[2023-01-12] MEDS: LANTUS PER UNIT CHARGE SQ SCH ×2 (08:27→20:23)
[2023-01-12] MEDS ORDERED: FUROSEMIDE 80 MG TAB PO SCH (09:00)
--- NOTE | 2023-01-12 09:21 | Pharmacy Report ---
Pharmacy Glycemic Short Note 2 - Date of Service January 12, 2023 - Glycemic Short BSG Results (Last 24 hours): 01/11/23 01/11/23 01/12/23 15:15 19:43 00:14 Glucose 124 H POC Glucose 275 H 245 H 01/12/23 01/12/23 01/12/23 03:55 06:49 07:08 Glucose 171 H POC Glucose 229 H 173 H OUTPATIENT ANTIDIABETIC REGIMEN: * metformin, trulicity * A1c 7% on admission ASSESSMENT: * 57 year old admitted with asthma exacerbation. Type 2 diabetic managed only on metformin and trulicity outpatient. Steroids started in ER yesterday evening. Solumedrol 40 mg tid increased to 60 mg q6 hr this morning therefore anticipate blood sugars to rise * Patient received total of 32 units of insulin yesterday, of which 20 units were basal. Received 12 units correctional insulin overnight - fasting BSG 173 mg/dL * Will utilize stress of 3 for insulin needs today and increase to 25 units bid of basal insulin. May tighten novolog slightly more today if still >200 PLAN FOR INPATIENT GLYCEMIC CONTROL: * Hold outpatient oral diabetes medications * Basal insulin - increase * Lantus 25 units bid * Bolus insulin * NovoLog per scale ACHS or Q6hrs while NPO * Goal Range: Low 110 mg/dL - High 140 mg/dL * Correction Factor: 15 mg/dL/unit * Nutritional / Prandial insulin per carb ratio of 1 unit per 5 grams CHO consumed
[2023-01-12] MEDS ORDERED: methylPREDNISolone 20 MG in SYRINGE 0 ML IV ONE (09:45)
[2023-01-12] MEDS: FUROSEMIDE 40 MG/4 ML VIAL IV SCH ×2 (09:55→20:22)
[2023-01-12] MEDS: methylPREDNISolone 60 MG in SYRINGE 0 ML IV SCH ×2 (13:54→20:21)
--- NOTE | 2023-01-12 15:05 | Hospitalist Progress Note ---
Date of Service January 12, 2023 Assessment & Plan (1) Acute asthma exacerbation: Plan: Parenteral steroid therapy increased. Continue nebulizers. Parenteral Lasix diuresis to ensure dry lungs. Serial chest x-rays. (2) Infection due to human metapneumovirus (hMPV): Plan: Suspected cause of acute asthma exacerbation (3) Chest pain: Plan: Appear to be chronic since her TAVR procedure. Acutely worse due to asthma exacerbation and coughing. Not concerning for ACS. Troponin only minimally elevated. No acute EKG changes. (4) History of mitral valve replacement with mechanical valve: Plan: Aim INR 2.5-3.5 Start Lovenox while INR <2 Give increased dose of warfarin today 15mg PO then continue her usual schedule. Likely to go up with azithromycin in addition. (5) CHF (congestive heart failure): Plan: Known ejection fraction of 35%. Pulmonary vascular congestion noted on chest x- ray. BNP pending. Parenteral Lasix diuresis ordered. Monitor intake and output. Serial chest x-ray Low Na diet I&Os (6) DMII (diabetes mellitus, type 2): Plan: Holding metformin and Trulicity. Hemoglobin A1c 7.0. Expect glucose elevations with parenteral steroid therapy. Sliding scale coverage as needed. Basal Lantus. (7) GERD (gastroesophageal reflux disease): Plan: Continue pantoprazole 40mg PO BID (8) SMITA on CPAP: Plan: CPAP HS Plan VTE Prophylaxis - bridging lovenox + warfarin Diet - low Na, heart healthy, T2DM Disposition -eventual discharge to home Admission and Anticipated Discharge Date Admission Date: January 11, 2023 Subjective Tachypneic and appears anxious although she is no longer requiring any oxygen. Parenteral steroid therapy has been increased. Chest x-ray interpreted as pulmonary vascular congestion. IV Lasix ordered. We will check BN P level. She is now off oxygen. INR low at 1.5. Continue Coumadin 15 mg daily until INR is therapeutic. She remains on Lovenox 1 mg/kg every 12 hours until INR is therapeutic. Known ejection fraction of 35% with past history of combined s ystolic/diastolic CHF. Glucose 171 despite steroid therapy. She has a history of TAVR and mechanical mitral valve replacement. I suspect she may have had rheumatic fever when she was younger. Review of Systems Review of Systems: Constitutional-no fever or chills ENT-no blurred vision, no double vision, no epistaxis, no sore throat Respiratory-nonproductive cough. Wheezy. Shortness of breath with minimal exertion. Cardiac-no palpitations, no chest pain, no syncope GI-no nausea, vomiting, diarrhea, melena, hematochezia -no urinary retention, no urinary incontinence, no dysuria, no hematuria Musculoskeletal-no joint pain, no muscle tenderness Skin-no bruising, no rashes, no pruritus Neuro-no isolated weakness, no paresthesia, no weakness Psych-no depression, no anxiety Physical Exam Physical Exam: General-alert and oriented x3. Appears anxious HEENT-head atraumatic and normocephalic, pupils equal and reactive to light, extraocular muscles intact Neck-no lymphadenopathy or thyromegaly, trachea midline Chest-mild tachypnea. Bilateral expiratory wheezes. No dullness to percussion. Midline rhonchi audible with forced cough Cardiac-regular rate and rhythm, normal S1 and S2 Abdomen-normal bowel sounds, no hepatosplenomegaly Extremities-no cyanosis, clubbing, or edema Neuro-cranial nerves II through XII intact, motor and sensory function within normal limits, strength symmetrical , no focal deficits Psych-normal affect, normal mood Results & Data Results & Data Vital Signs (Past 12 Hours) Vital Signs Temp Pulse Pulse Resp BP Pulse Ox O2 Del Method 01/12/23 14:55 86 20 98 Room Air 01/12/23 11:20 36.6 C 81 16 135/74 94 Room Air 01/12/23 10:34 83 18 96 Room Air 01/12/23 08:00 96 Room Air 01/12/23 10:09 Room Air 01/12/23 07:00 36.9 C 70 21 137/75 93 Nasal Cannula 01/12/23 06:46 68 18 94 Room Air 01/12/23 03:28 36.7 C 80 24 159/72 H 94 Nasal Cannula 01/12/23 03:08 112 H 26 H 99 CPAP 01/12/23 03:06 112 H 28 H 99 O2 Flow Rate 01/12/23 14:55 01/12/23 11:20 01/12/23 10:34 01/12/23 08:00 01/12/23 10:09 01/12/23 07:00 2 01/12/23 06:46 01/12/23 03:28 2 01/12/23 03:08 2 01/12/23 03:06 2 Laboratory Results 01/12/23 06:49 01/12/23 06:49 PG Care Time/CCT Total # of Minutes Spent Total Time Spent with Patient: Total time spent is greater than 50% in coordination of care (as documented) at patient's floor/unit and/or counseling patient: Coding Level of Care Code 95446 SUB INP/OBS CARE 3/50MIN Diagnoses Acute asthma exacerbation J45.901 Infection due to human metapneumovirus (hMPV) B34.8 Chest pain R07.9 Chest pain type: unspecified History of mitral valve replacement with mechanical valve Z95.2 CHF (congestive heart failure) I50.9 DMII (diabetes mellitus, type 2) E11.9 GERD (gastroesophageal reflux disease) K21.9 Esophagitis presence: esophagitis presence not specified SMITA on CPAP G47.33; Z99.89 (3) Chest pain Chest pain type: unspecified Qualified Code(s): R07.9 - Chest pain, unspecified (7) GERD (gastroesophageal reflux disease) Esophagitis presence: esophagitis presence not specified Qualified Code(s): K21.9 - Gastro-esophageal reflux disease without esophagitis
[2023-01-12] MEDS ORDERED: WARFARIN SOD 10 MG TAB PO SCH (16:00)
[2023-01-12] MEDS ORDERED: WARFARIN SOD 7.5 MG TAB PO SCH (16:00)
[2023-01-12] MEDS: CYCLOBENZAPRINE HCL 5 MG TAB PO PRN ×2 (16:07→22:08)
[2023-01-12] MEDS: ATORVASTATIN 40 MG TAB PO SCH (20:22)
[2023-01-12] MEDS: AZITHROMYCIN 250 MG TAB PO SCH (20:22)
[2023-01-13] MEDS: methylPREDNISolone 60 MG in SYRINGE 0 ML IV SCH ×4 (02:46→19:50)
[2023-01-13] MEDS: ALBUT/IPRATROP 3MG/0.5MG NEB 3 ML VIAL NEB SCH ×6 (03:08→22:40)
[2023-01-13] MEDS: ENOXAPARIN INJ 120 MG/0.8 ML SYR SQ SCH (06:01)
[2023-01-13] MEDS: BUDESONIDE 0.5 MG/2 ML VIAL (PULMICORT) NEB SCH ×2 (06:53→18:56)
[2023-01-13] MEDS: FORMOTEROL 20 MCG/2 ML VIAL NEB SCH ×2 (06:53→18:56)
[2023-01-13 07:21] LABS: Basophils # (auto) 0.02 K/uL (0-0.2); Basophils % (auto) 0.1 %; Hematocrit (blood only) 35.5 % (37.0-47.0); Hemoglobin 11.1 g/dl (12.0-16.0); Immature Granulocytes # (auto) 0.07 K/uL (0.01-0.20); Immature Granulocytes % (auto) 0.5 %; Lymphocytes # (auto) 1.99 K/uL (1.2-3.4); Lymphocytes % (auto) 13.2 %; Mean Corpuscular Hemoglobin 28.2 pg (25.0-34.0); Mean Corpuscular Hgb Conc 31.3 g/dL (32.0-36.0); Mean Corpuscular Volume 90.1 fL (80.0-100.0); Mean Platelet Volume 11.8 fL (9.4-12.4); Monocytes # (auto) 0.47 K/uL (0.11-0.59); Monocytes % (auto) 3.1 %; Neutrophils # (auto) 12.56 K/uL (1.40-6.50); Neutrophils % (auto) 83.1 %; Platelet Count 246 K/uL (130-400); RDW Coefficient of Variation 17.1 % (11.5-14.5); RDW Standard Deviation 56.4 fL (36.4-46.3); Red Blood Count 3.94 M/uL (4.20-5.40); White Blood Count 15.11 K/ul (4.8-10.8)
[2023-01-13 07:39] LABS: BUN Creatinine Ratio 31.1 (10-20); Creatinine Clr Calc Pharmacy 76.9 ml/min; Est GFR (African American) 69.4 ml/min; Est GFR (Non-African American) 59.9 ml/min; Potassium 4.4 mmol/L (3.5-5.1)
[2023-01-13 07:52] LABS: INR 2.4 (0.9-1.1); Prothrombin Time 24.5 Seconds (9.0-12.0)
[2023-01-13] MEDS: MoRPHine SULFATE 2 MG/ML CARP IV PRN ×4 (08:06→21:59)
[2023-01-13] MEDS: INSULIN ASPART PER UNIT CHARGE SC SCH ×4 (08:34→21:47)
[2023-01-13] MEDS: PREGABALIN 50 MG CAP PO SCH ×3 (08:35→21:52)
[2023-01-13] MEDS: LANTUS PER UNIT CHARGE SQ SCH ×2 (08:35→21:50)
[2023-01-13] MEDS: FUROSEMIDE 40 MG/4 ML VIAL IV SCH ×2 (08:35→21:50)
[2023-01-13] MEDS: METOPROLOL SUCC 25MG EXT REL TAB PO SCH (08:36)
[2023-01-13] MEDS: POTASSIUM CHLORIDE CRTAB 20 MEQ TABCR PO SCH (08:36)
[2023-01-13] MEDS: LOSARTAN POTASSIUM 25 MG TAB PO SCH (08:36)
[2023-01-13] MEDS: MUPIROCIN 2% OINT 22 GM TUBE TOP SCH ×3 (11:29→21:52)
[2023-01-13] MEDS: PANTOprazole 40 MG TAB PO SCH ×2 (11:29→21:51)
--- NOTE | 2023-01-13 11:36 | Electrocardiogram Report ---
Test Reason : Blood Pressure : / mmHG Vent. Rate : 080 BPM Atrial Rate : 080 BPM P-R Int : 098 ms QRS Dur : 090 ms QT Int : 410 ms P-R-T Axes : 000 017 141 degrees QTc Int : 472 ms Ectopic atrial rhythm versus junctional Left ventricular hypertrophy with repolarization abnormality Nonspecific ST abnormality Abnormal ECG Confirmed by Kwaku Dominguez ([id number]) on 01/13/2023 11:35:56 AM Referred By: REFERRED SELF Confirmed By:Syd Dominguez
--- NOTE | 2023-01-13 15:17 | Hospitalist Progress Note ---
Date of Service January 13, 2023 Assessment & Plan (1) Chest pain: Plan: Chronic. No evidence of acute coronary syndrome. Telemetry (2) History of mitral valve replacement with mechanical valve: Plan: Continue Coumadin therapy. Lovenox 1 mg/kg subcutaneously every 12 hours until INR is therapeutic (3) Acute severe exacerbation of intrinsic asthma: Plan: Improving with intravenous steroids and continued nebulizer treatments (4) Subtherapeutic anticoagulation: Plan: Lovenox bridge until INR therapeutic (5) Infection due to human metapneumovirus (hMPV): Plan: Viral infection has caused exacerbation of asthma. See current treatment plan (6) Hypertension: Plan: Continue current medical management. Not controlled (7) Hyperlipidemia: Plan: Low-fat diet. Continue current medication (8) Dysfunctional uterine bleeding: Plan: Pelvic ultrasound ordered. She will need outpatient [facility] follow-up Plan Hopeful discharge back to home when bronchospasm breaks Admission and Anticipated Discharge Date Admission Date: January 12, 2023 Subjective Alert and oriented. Respiratory status has improved. She did have some dy sfunctional uterine bleeding. She is on anticoagulants. Pelvic ultrasound ordered. INR 2.4. We will continue Coumadin and discontinue Lovenox. We will decrease Solu-Medrol dosing since her respiratory status is improving. Repeat chest x-ray pending Review of Systems Review of Systems: Constitutional-no fever or chills ENT-no blurred vision, no double vision, no epistaxis, no sore throat Respiratory-nonproductive cough. Wheezing is improved. Dyspnea on exertion Cardiac-no palpitations, no syncope. She has chronic chest pain which is unchanged GI-no nausea, vomiting, diarrhea, melena, hematochezia -no urinary retention, no urinary incontinence, no dysuria, no hematuria. She has developed some dysfunctional uterine bleeding Musculoskeletal-no joint pain, no muscle tenderness Skin-no bruising, no rashes, no pruritus Neuro-no isolated weakness, no paresthesia, no weakness Psych-no depression, no anxiety Physical Exam Physical Exam: General-alert and oriented x3, no fevers, no chills HEENT-head atraumatic and normocephalic, pupils equal and reactive to light, extraocular muscles intact Neck-no lymphadenopathy or thyromegaly, trachea midline Chest-bilateral expiratory wheezes have improved. No dullness to percussion. No rhonchi Cardiac-regular rate and rhythm, normal S1 and S2 Abdomen-normal bowel sounds, nontender, no hepatosplenomegaly Extremities-no cyanosis, clubbing, or edema Neuro-cranial nerves II through XII intact, motor and sensory function within normal limits, strength symmetrical , no focal deficits Psych-normal affect, normal mood Results & Data Results & Data Vital Signs (Past 12 Hours) Vital Signs Temp Pulse Pulse Resp BP Pulse Ox O2 Del Method 01/13/23 11:57 36.7 C 74 20 138/77 95 Nasal Cannula 01/13/23 11:03 72 18 98 Nasal Cannula 01/13/23 08:31 66 16 153/80 H 97 Nasal Cannula 01/13/23 08:00 37.1 C 76 22 179/90 H 96 Nasal Cannula 01/13/23 06:53 62 15 98 CPAP 01/13/23 06:53 62 15 98 O2 Flow Rate 01/13/23 11:57 2 01/13/23 11:03 2 01/13/23 08:31 2 01/13/23 08:00 2 01/13/23 06:53 2 01/13/23 06:53 2 Laboratory Results 01/13/23 06:34 01/13/23 06:34 PG Care Time/CCT Total # of Minutes Spent Total Time Spent with Patient: Total time spent is greater than 50% in coordination of care (as documented) at patient's floor/unit and/or counseling patient: Coding Level of Care Code 46767 SUB INP/OBS CARE 3/50MIN Diagnoses Chest pain R07.9 Chest pain type: unspecified History of mitral valve replacement with mechanical valve Z95.2 Acute severe exacerbation of intrinsic asthma J45.901 Subtherapeutic anticoagulation Z51.81; Z79.01 Infection due to human metapneumovirus (hMPV) B34.8 Hypertension I10 Hypertension type: essential hypertension Hyperlipidemia E78.5 Hyperlipidemia type: unspecified Dysfunctional uterine bleeding N93.8 (1) Chest pain Chest pain type: unspecified Qualified Code(s): R07.9 - Chest pain, unspecified (6) Hypertension Hypertension type: essential hypertension Qualified Code(s): I10 - Essential (primary) hypertension (7) Hyperlipidemia Hyperlipidemia type: unspecified Qualified Code(s): E78.5 - Hyperlipidemia, unspecified
[2023-01-13] MEDS ORDERED: WARFARIN SOD 7.5 MG TAB PO SCH (16:00)
[2023-01-13] MEDS ORDERED: WARFARIN SOD 10 MG TAB PO SCH (16:00)
--- NOTE | 2023-01-13 16:46 | XRay Report ---
XR chest 1V portable CLINICAL HISTORY: Asthma exacerbation. COMPARISON STUDY: Chest CT December 14, 2022 chest radiograph January 11, 2023. FINDINGS: No pneumothorax or pleural effusion is present. There is no consolidation to suggest pneumo armaan. Mild interstitial prominence is unchanged. This may reflect pulmonary vascular congestion. No ev idence for pulmonary edema. Cardiomediastinal silhouette is stable. There are median sternotomy wires and a prosthetic mitral valve. IMPRESSION: 1. No consolidation to suggest pneumonia. 2. Stable interstitial prominence which may reflect pulmonary vascular congestion. ACT 112: Negative or not required by law. Electronically signed by: Giuliano Jaures M.D. 01/13/2023 4:45 PM
--- NOTE | 2023-01-13 21:48 | Ultrasound Report ---
Exam(s): US PELVIS EXAM: US Pelvis Transabdominal, Complete CLINICAL HISTORY: Reason for exam: DUB. TECHNIQUE: Real-time complete transabdominal pelvic ultrasound with image documentation. COMPARISON: CT scan from September 23, 2022 FINDINGS: Uterus/cervix: The uterus measures 6.8 x 2.3 x 3.6 cm and is anteverted. There are several 3 mm calcifications in the superficial aspect of the anterior myometrium. No soft tissue mass is seen. The endometrial stripe is normal measuring 3 mm with normal smooth contour. There is a 3 mm nabothian cyst within the cervix. Right ovary: Not visible. Left ovary: Not visible. Free fluid: No free fluid is seen within the pelvis. Bladder: Unremarkable as visualized. Wall is normal thickness for degree of distention. IMPRESSION: No acute findings in the pelvis. Electronically signed by: Kolby Livingston MD 01/13/23 21:47 PM
[2023-01-13] MEDS: ATORVASTATIN 40 MG TAB PO SCH (21:51)
[2023-01-13] MEDS: AZITHROMYCIN 250 MG TAB PO SCH (21:51)
[2023-01-14] MEDS: ALBUT/IPRATROP 3MG/0.5MG NEB 3 ML VIAL NEB SCH ×6 (03:12→22:20)
[2023-01-14] MEDS: methylPREDNISolone 60 MG in SYRINGE 0 ML IV SCH ×4 (03:20→20:44)
[2023-01-14] MEDS: MoRPHine SULFATE 2 MG/ML CARP IV PRN ×4 (06:10→22:31)
[2023-01-14] MEDS: CYCLOBENZAPRINE HCL 5 MG TAB PO PRN ×2 (06:13→22:31)
[2023-01-14 06:18] LABS: Hematocrit (blood only) 35.3 % (37.0-47.0); Hemoglobin 11.3 g/dl (12.0-16.0); Mean Corpuscular Hemoglobin 28.8 pg (25.0-34.0); Mean Corpuscular Volume 89.8 fL (80.0-100.0); Mean Platelet Volume 10.9 fL (9.4-12.4); Platelet Count 257 K/uL (130-400); RDW Coefficient of Variation 17.2 % (11.5-14.5); RDW Standard Deviation 56.4 fL (36.4-46.3); Red Blood Count 3.93 M/uL (4.20-5.40); White Blood Count 17.41 K/ul (4.8-10.8)
[2023-01-14 06:37] LABS: Basophils # (auto) 0.03 K/uL (0-0.2); Basophils % (auto) 0.2 %; Immature Granulocytes # (auto) 0.15 K/uL (0.01-0.20); Immature Granulocytes % (auto) 0.9 %; Lymphocytes # (auto) 2.94 K/uL (1.2-3.4); Lymphocytes % (auto) 16.9 %; Monocytes # (auto) 0.64 K/uL (0.11-0.59); Monocytes % (auto) 3.7 %; Neutrophils # (auto) 13.65 K/uL (1.40-6.50); Neutrophils % (auto) 78.3 %; RBC Morphology Unremarkable
[2023-01-14 06:43] LABS: BUN Creatinine Ratio 34.9 (10-20); Calcium 8.7 mg/dl (8.6-10.3); Creatinine Clr Calc Pharmacy 72.2 ml/min; Est GFR (African American) 64.8 ml/min; Est GFR (Non-African American) 55.9 ml/min; Potassium 3.8 mmol/L (3.5-5.1)
[2023-01-14 06:53] LABS: INR 2.9 (0.9-1.1); Prothrombin Time 29.6 Seconds (9.0-12.0)
[2023-01-14] MEDS: BUDESONIDE 0.5 MG/2 ML VIAL (PULMICORT) NEB SCH ×2 (06:59→19:26)
[2023-01-14] MEDS: FORMOTEROL 20 MCG/2 ML VIAL NEB SCH ×2 (06:59→19:26)
[2023-01-14] MEDS: METOPROLOL SUCC 25MG EXT REL TAB PO SCH (08:45)
[2023-01-14] MEDS: PANTOprazole 40 MG TAB PO SCH ×2 (08:45→20:45)
[2023-01-14] MEDS: POTASSIUM CHLORIDE CRTAB 20 MEQ TABCR PO SCH (08:45)
[2023-01-14] MEDS: LOSARTAN POTASSIUM 25 MG TAB PO SCH (08:46)
[2023-01-14] MEDS: MUPIROCIN 2% OINT 22 GM TUBE TOP SCH ×3 (08:47→20:46)
[2023-01-14] MEDS: INSULIN ASPART PER UNIT CHARGE SC SCH ×4 (08:48→20:43)
[2023-01-14] MEDS: FUROSEMIDE 40 MG/4 ML VIAL IV SCH ×2 (08:48→20:45)
[2023-01-14] MEDS: LANTUS PER UNIT CHARGE SQ SCH ×2 (08:50→20:43)
[2023-01-14] MEDS: PREGABALIN 50 MG CAP PO SCH ×3 (08:54→20:45)
--- NOTE | 2023-01-14 14:23 | Hospitalist Progress Note ---
Date of Service January 14, 2023 Assessment & Plan (1) Chest pain: Plan: Chronic. No evidence of acute coronary syndrome. Telemetry (2) History of mitral valve replacement with mechanical valve: Plan: Continue Coumadin therapy. INR is therapeutic. Lovenox has been discontinued. (3) Acute severe exacerbation of intrinsic asthma: Plan: Improving with intravenous steroids and continued nebulizer treatments (4) Subtherapeutic anticoagulation: Plan: Lovenox has been discontinued. INR now therapeutic (5) Infection due to human metapneumovirus (hMPV): Plan: Viral infection has caused exacerbation of asthma. See current treatment plan (6) Hypertension: Plan: Continue current medical management. Now controlled (7) Hyperlipidemia: Plan: Low-fat diet. Continue current medication (8) Dysfunctional uterine bleeding: Plan: Pelvic ultrasound negative for any significant pathology. She will need outpatient [facility] follow-up (9) Acute respiratory failure with hypoxia: Plan: Present on admission. Now resolved. 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 Known ejection fraction 35%. Much improved with intravenous Lasix diuresis. Monitor intake and output. Serial chest x-ray Plan Hopeful discharge back to home this week Admission and Anticipated Discharge Date Admission Date: January 12, 2023 Subjective Alert and oriented. Overall she is improving. INR has risen to 2.9. Coumadin dosage has been decreased. Pelvic ultrasound is negative. Chest x-ray done yesterday, January 13, looks better. She continues to diurese with intravenous Lasix. She is now on room air. Review of Systems Review of Systems: Constitutional-no fever or chills ENT-no blurred vision, no double vision, no epistaxis, no sore throat Respiratory-nonproductive cough. Wheezing has improved. Dyspnea on exertion has lessened Cardiac-no palpitations, no syncope. She has chronic chest pain which is unchanged GI-no nausea, vomiting, diarrhea, melena, hematochezia -no urinary retention, no urinary incontinence, no dysuria, no hematuria. She has developed some dysfunctional uterine bleeding Musculoskeletal-no joint pain, no muscle tenderness Skin-no bruising, no rashes, no pruritus Neuro-no isolated weakness, no paresthesia, no weakness Psych-no depression, no anxiety Physical Exam Physical Exam: General-alert and oriented x3, no fevers, no chills HEENT-head atraumatic and normocephalic, pupils equal and reactive to light, extraocular muscles intact Neck-no lymphadenopathy or thyromegaly, trachea midline Chest-bilateral expiratory wheezes have improved. No dullness to percussion. No rhonchi Cardiac-regular rate and rhythm, normal S1 and S2 Abdomen-normal bowel sounds, nontender, no hepatosplenomegaly Extremities-no cyanosis, clubbing, or edema Neuro-cranial nerves II through XII intact, motor and sensory function within normal limits, strength symmetrical , no focal deficits Psych-normal affect, normal mood Results & Data Results & Data Vital Signs (Past 12 Hours) Vital Signs Temp Pulse Pulse Resp BP Pulse Ox O2 Del Method 01/14/23 12:45 63 01/14/23 12:45 Nasal Cannula 01/14/23 11:43 36.7 C 74 18 125/80 97 Nasal Cannula 01/14/23 11:32 91 H 28 H 96 Nasal Cannula 01/14/23 07:49 36.4 C L 73 18 135/76 94 Room Air 01/14/23 07:01 65 20 97 Nasal Cannula 01/14/23 03:55 36.7 C 62 18 134/77 100 CPAP 01/14/23 03:13 16 CPAP 01/14/23 03:13 16 O2 Flow Rate 01/14/23 12:45 01/14/23 12:45 2 01/14/23 11:43 2 01/14/23 11:32 2 01/14/23 07:49 01/14/23 07:01 2 01/14/23 03:55 01/14/23 03:13 2 01/14/23 03:13 2 Laboratory Results 01/14/23 05:47 01/14/23 05:47 PG Care Time/CCT Total # of Minutes Spent Total Time Spent with Patient: Total time spent is greater than 50% in coordination of care (as documented) at patient's floor/unit and/or counseling patient: Coding Level of Care Code 15944 SUB INP/OBS CARE 3/50MIN Diagnoses Chest pain R07.9 Chest pain type: unspecified History of mitral valve replacement with mechanical valve Z95.2 Acute severe exacerbation of intrinsic asthma J45.901 Subtherapeutic anticoagulation Z51.81; Z79.01 Infection due to human metapneumovirus (hMPV) B34.8 Hypertension I10 Hypertension type: essential hypertension Hyperlipidemia E78.5 Hyperlipidemia type: unspecified Dysfunctional uterine bleeding N93.8 Acute respiratory failure with hypoxia J96.01 Congestive heart failure due to valvular disease I50.9; I38 (1) Chest pain Chest pain type: unspecified Qualified Code(s): R07.9 - Chest pain, unspecified (6) Hypertension Hypertension type: essential hypertension Qualified Code(s): I10 - Essential (primary) hypertension (7) Hyperlipidemia Hyperlipidemia type: unspecified Qualified Code(s): E78.5 - Hyperlipidemia, unspecified
[2023-01-14] MEDS: WARFARIN SOD 5 MG TAB PO SCH (16:00)
[2023-01-14] MEDS: ATORVASTATIN 40 MG TAB PO SCH (20:45)
[2023-01-15] MEDS: ALBUT/IPRATROP 3MG/0.5MG NEB 3 ML VIAL NEB SCH ×6 (02:31→22:11)
[2023-01-15] MEDS: methylPREDNISolone 60 MG in SYRINGE 0 ML IV SCH ×2 (02:34→08:52)
[2023-01-15] MEDS: BUDESONIDE 0.5 MG/2 ML VIAL (PULMICORT) NEB SCH ×2 (07:04→18:52)
[2023-01-15] MEDS: FORMOTEROL 20 MCG/2 ML VIAL NEB SCH ×2 (07:04→18:52)
[2023-01-15] MEDS: LANTUS PER UNIT CHARGE SQ SCH ×2 (08:51→22:33)
[2023-01-15] MEDS: LOSARTAN POTASSIUM 25 MG TAB PO SCH (08:52)
[2023-01-15] MEDS: PREGABALIN 50 MG CAP PO SCH ×3 (08:52→22:37)
[2023-01-15] MEDS: POTASSIUM CHLORIDE CRTAB 20 MEQ TABCR PO SCH (08:52)
[2023-01-15] MEDS: METOPROLOL SUCC 25MG EXT REL TAB PO SCH (08:52)
[2023-01-15] MEDS: MoRPHine SULFATE 2 MG/ML CARP IV PRN ×4 (08:52→22:42)
[2023-01-15] MEDS: PANTOprazole 40 MG TAB PO SCH ×2 (08:52→22:36)
[2023-01-15] MEDS: INSULIN ASPART PER UNIT CHARGE SC SCH ×4 (08:53→22:33)
[2023-01-15] MEDS: MUPIROCIN 2% OINT 22 GM TUBE TOP SCH ×3 (08:53→22:36)
[2023-01-15] MEDS: FUROSEMIDE 40 MG/4 ML VIAL IV SCH ×2 (08:53→22:33)
[2023-01-15 09:41] LABS: Hematocrit (blood only) 34.9 % (37.0-47.0); Hemoglobin 11.2 g/dl (12.0-16.0); Mean Corpuscular Hemoglobin 28.4 pg (25.0-34.0); Mean Corpuscular Hgb Conc 32.1 g/dL (32.0-36.0); Mean Corpuscular Volume 88.6 fL (80.0-100.0); Platelet Count 271 K/uL (130-400); RDW Coefficient of Variation 17.2 % (11.5-14.5); RDW Standard Deviation 55.8 fL (36.4-46.3); Red Blood Count 3.94 M/uL (4.20-5.40); White Blood Count 17.37 K/ul (4.8-10.8)
[2023-01-15 10:06] LABS: INR 3.2 (0.9-1.1); Prothrombin Time 32.2 Seconds (9.0-12.0)
[2023-01-15 10:07] LABS: Basophils # (auto) 0.05 K/uL (0-0.2); Basophils % (auto) 0.3 %; Immature Granulocytes # (auto) 0.25 K/uL (0.01-0.20); Immature Granulocytes % (auto) 1.4 %; Lymphocytes # (auto) 3.65 K/uL (1.2-3.4); Monocytes # (auto) 0.61 K/uL (0.11-0.59); Monocytes % (auto) 3.5 %; Neutrophils # (auto) 12.81 K/uL (1.40-6.50); Neutrophils % (auto) 73.8 %
[2023-01-15 10:29] LABS: Calcium 8.4 mg/dl (8.6-10.3); Potassium 3.6 mmol/L (3.5-5.1)
[2023-01-15 10:39] LABS: Creatinine Clr Calc Pharmacy 81.1 ml/min; Est GFR (African American) 74.6 ml/min; Est GFR (Non-African American) 64.4 ml/min
--- NOTE | 2023-01-15 10:50 | XRay Report ---
XR chest 1V portable CLINICAL HISTORY: CHF TECHNIQUE: Single frontal radiograph of the chest was obtained. Comparison: Comparison is made to chest radiograph 01/13/2023 FINDINGS: Median sternotomy wires are unchanged. Valvular prosthesis is noted. The cardiomediastinal silhouette is normal. The lungs are clear. No evidence of pleural effusion or pneumothorax. IMPRESSION: No acute abnormality and in particular no evidence of pulmonary edema. ACT 112: Negative or not required by law. Electronically signed by: Nickolas Horta M.D. 01/15/2023 10:48 AM
--- NOTE | 2023-01-15 12:55 | Hospitalist Progress Note ---
Date of Service January 15, 2023 Assessment & Plan (1) Chest pain: Plan: Chronic. Post sternotomy chest wall etiology. No evidence of acute coronary syndrome. Telemetry (2) History of mitral valve replacement with mechanical valve: Plan: Continue Coumadin therapy. INR is therapeutic. Goal INR range 2.5-3.5. Lovenox has been discontinued. (3) Acute severe exacerbation of intrinsic asthma: Plan: Improving with intravenous steroids and continued nebulizer treatments. Solu- Medrol dosage has been tapered down. Eventual switch to oral prednisone in a tapering dose fashion (4) Subtherapeutic anticoagulation: Plan: Lovenox has been discontinued. INR now therapeutic (5) Infection due to human metapneumovirus (hMPV): Plan: Suspected viral infection has caused exacerbation of asthma. See current treatment plan (6) Hypertension: Plan: Continue current medical management. Now controlled (7) Hyperlipidemia: Plan: Low-fat diet. Continue current medication (8) Dysfunctional uterine bleeding: Plan: Pelvic ultrasound negative for any significant pathology. She will need outpatient [facility] follow-up. Hemoglobin is stable (9) Acute respiratory failure with hypoxia: Plan: Present on admission. Much improved. Wean off oxygen as tolerated. 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 Known ejection fraction 35%. Much improved with intravenous Lasix diuresis. Monitor intake and output. Chest x-ray is now clear. Plan Anticipate discharge to SNF this week. Admission and Anticipated Discharge Date Admission Date: January 12, 2023 Subjective Alert and oriented. Chest x-ray is now clear. INR is 3.2 with target 2.5-3.5 considering she has a mechanical valve. Still some wheezing but overall improved. Oxygen requirements have decreased considerably since admission. Solu-Medrol dosage will be tapered down today, January 15. Eventual switch to oral prednisone in tapering dose fashion. She remains on parenteral Lasix. Hemoglobin is stable and her pelvic ultrasound evaluation was negative. She can follow-up with [facility] as an outpatient. Her chest pain is poststernotomy chest wall in origin. OT and PT assessments pending. I suspect she will need SNF placement Review of Systems Review of Systems: Constitutional-no fever or chills ENT-no blurred vision, no double vision, no epistaxis, no sore throat Respiratory-nonproductive cough. Wheezing has improved. Dyspnea on exertion has lessened Cardiac-no palpitations, no syncope. She has chronic chest pain which is unchanged GI-no nausea, vomiting, diarrhea, melena, hematochezia -no urinary retention, no urinary incontinence, no dysuria, no hematuria. She has developed some dysfunctional uterine bleeding Musculoskeletal-no joint pain, no muscle tenderness Skin-no bruising, no rashes, no pruritus Neuro-no isolated weakness, no paresthesia, no weakness Psych-no depression, no anxiety Physical Exam Physical Exam: General-alert and oriented x3, no fevers, no chills HEENT-head atraumatic and normocephalic, pupils equal and reactive to light, extraocular muscles intact Neck-no lymphadenopathy or thyromegaly, trachea midline Chest-bilateral expiratory wheezes have improved. No dullness to percussion. No rhonchi Cardiac-regular rate and rhythm, normal S1 and S2 Abdomen-normal bowel sounds, nontender, no hepatosplenomegaly Extremities-no cyanosis, clubbing, or edema Neuro-cranial nerves II through XII intact, motor and sensory function within normal limits, strength symmetrical , no focal deficits Psych-normal affect, normal mood Results & Data Results & Data Vital Signs (Past 12 Hours) Vital Signs Temp Pulse Resp BP Pulse Ox O2 Del Method O2 Flow Rate 01/15/23 10:59 72 24 97 Nasal Cannula 2 01/15/23 08:05 36.5 C 77 18 140/69 97 Room Air 01/15/23 07:04 80 24 96 Nasal Cannula 2 01/15/23 03:58 36.4 C L 60 20 135/78 98 CPAP 01/15/23 02:31 CPAP 01/15/23 02:31 12 2 Laboratory Results 01/15/23 08:40 01/15/23 08:40 PG Care Time/CCT Total # of Minutes Spent Total Time Spent with Patient: Total time spent is greater than 50% in coordination of care (as documented) at patient's floor/unit and/or counseling patient: Coding Level of Care Code 84451 SUB INP/OBS CARE 3/50MIN Diagnoses Chest pain R07.9 Chest pain type: unspecified History of mitral valve replacement with mechanical valve Z95.2 Acute severe exacerbation of intrinsic asthma J45.901 Subtherapeutic anticoagulation Z51.81; Z79.01 Infection due to human metapneumovirus (hMPV) B34.8 Hypertension I10 Hypertension type: essential hypertension Hyperlipidemia E78.5 Hyperlipidemia type: unspecified Dysfunctional uterine bleeding N93.8 Acute respiratory failure with hypoxia J96.01 Congestive heart failure due to valvular disease I50.9; I38 (1) Chest pain Chest pain type: unspecified Qualified Code(s): R07.9 - Chest pain, unspecified (6) Hypertension Hypertension type: essential hypertension Qualified Code(s): I10 - Essential (primary) hypertension (7) Hyperlipidemia Hyperlipidemia type: unspecified Qualified Code(s): E78.5 - Hyperlipidemia, unspecified
[2023-01-15] MEDS: methylPREDNISolone 40 MG in SYRINGE 0 ML IV SCH (16:03)
[2023-01-15] MEDS: WARFARIN SOD 5 MG TAB PO SCH (16:03)
[2023-01-15] MEDS: ATORVASTATIN 40 MG TAB PO SCH (22:32)
[2023-01-15] MEDS: CYCLOBENZAPRINE HCL 5 MG TAB PO PRN (22:49)
[2023-01-16] MEDS: methylPREDNISolone 40 MG in SYRINGE 0 ML IV SCH ×3 (01:30→16:49)
[2023-01-16] MEDS: ALBUT/IPRATROP 3MG/0.5MG NEB 3 ML VIAL NEB SCH ×6 (03:08→22:43)
[2023-01-16] MEDS: MoRPHine SULFATE 2 MG/ML CARP IV PRN ×4 (05:40→22:10)
[2023-01-16] MEDS: FORMOTEROL 20 MCG/2 ML VIAL NEB SCH ×2 (07:16→19:13)
[2023-01-16] MEDS: BUDESONIDE 0.5 MG/2 ML VIAL (PULMICORT) NEB SCH ×2 (07:17→19:13)
[2023-01-16] MEDS: INSULIN ASPART PER UNIT CHARGE SC SCH ×4 (08:03→22:05)
[2023-01-16] MEDS: LANTUS PER UNIT CHARGE SQ SCH ×2 (08:04→22:07)
[2023-01-16] MEDS: PANTOprazole 40 MG TAB PO SCH ×2 (08:07→22:08)
[2023-01-16] MEDS: POTASSIUM CHLORIDE CRTAB 20 MEQ TABCR PO SCH (08:07)
[2023-01-16] MEDS: FUROSEMIDE 40 MG/4 ML VIAL IV SCH (08:08)
[2023-01-16] MEDS: LOSARTAN POTASSIUM 25 MG TAB PO SCH (08:08)
[2023-01-16] MEDS: METOPROLOL SUCC 25MG EXT REL TAB PO SCH (08:10)
[2023-01-16] MEDS: CYCLOBENZAPRINE HCL 5 MG TAB PO PRN ×2 (08:10→22:11)
[2023-01-16] MEDS: MUPIROCIN 2% OINT 22 GM TUBE TOP SCH ×3 (08:11→22:08)
[2023-01-16] MEDS: PREGABALIN 50 MG CAP PO SCH ×3 (08:14→22:10)
[2023-01-16 08:18] LABS: Hematocrit (blood only) 38.7 % (37.0-47.0); Mean Corpuscular Hemoglobin 27.8 pg (25.0-34.0); Mean Corpuscular Volume 89.8 fL (80.0-100.0); Mean Platelet Volume 11.3 fL (9.4-12.4); Platelet Count 307 K/uL (130-400); RDW Standard Deviation 56.3 fL (36.4-46.3); Red Blood Count 4.31 M/uL (4.20-5.40); White Blood Count 18.58 K/ul (4.8-10.8)
[2023-01-16 08:31] LABS: Prothrombin Time 30.5 Seconds (9.0-12.0)
[2023-01-16 08:42] LABS: Basophils # (auto) 0.03 K/uL (0-0.2); Basophils % (auto) 0.2 %; Immature Granulocytes # (auto) 0.33 K/uL (0.01-0.20); Immature Granulocytes % (auto) 1.8 %; Lymphocytes # (auto) 3.51 K/uL (1.2-3.4); Lymphocytes % (auto) 18.9 %; Monocytes # (auto) 0.99 K/uL (0.11-0.59); Monocytes % (auto) 5.3 %; Neutrophils # (auto) 13.72 K/uL (1.40-6.50); Neutrophils % (auto) 73.8 %
[2023-01-16 08:48] LABS: Calcium 8.4 mg/dl (8.6-10.3); Creatinine Clr Calc Pharmacy 81.1 ml/min; Est GFR (African American) 74.6 ml/min; Est GFR (Non-African American) 64.4 ml/min; Potassium 3.7 mmol/L (3.5-5.1)
[2023-01-16] MEDS: WARFARIN SOD 5 MG TAB PO SCH (16:48)
--- NOTE | 2023-01-16 18:25 | Hospitalist Progress Note ---
Date of Service January 16, 2023 Assessment & Plan (1) Acute severe exacerbation of intrinsic asthma: Plan: Improving with intravenous steroids and continued nebulizer treatments, but with ongoing severe wheezing, some cough -continue current dose of IV steroids -continue scheduled nebs, Budesonide,formoterol (2) Infection due to human metapneumovirus (hMPV): Plan: Suspected viral infection has caused exacerbation of asthma. continue supportive care and tx for asthma -add isolation precautions (3) Acute respiratory failure with hypoxia: Plan: Present on admission. Much improved. Wean off oxygen as tolerated. 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 Known ejection fraction 35%. Much improved with intravenous Lasix diuresis. Monitor intake and output. Chest x-ray is now clear. -dc IV lasix and convert to home po lasix 80mg po daily -continue Toprol XL,losartan (5) Chest pain: Plan: Chronic. Post sternotomy chest wall etiology. No evidence of acute coronary syndrome. Telemetry -continue Lyrica, flexeril, morphine prn -sees Pain Management as outpt (6) History of mitral valve replacement with mechanical valve: Plan: Continue Coumadin therapy. INR is therapeutic. Goal INR range 2.5-3.5. Follow INR (7) Hypertension: Plan: Continue current medical management. Now controlled -continue home Toprol XL, losartan, lasix (8) Hyperlipidemia: Plan: Low-fat diet. Continue current statin (9) Dysfunctional uterine bleeding: Plan: Pelvic ultrasound negative for any significant pathology. She will need outpatient [facility] follow-up. Hemoglobin is stable (10) Odynophagia: Plan: sensation of chest pain and cough after eating at times advised EGD as outpt vs Barium swallow but needs to recover from asthma exacerbation first Plan DVT [id number] Dispo-continued stay on tele, will need rehab but not likely ready for dc for 2- 3 more days Admission and Anticipated Discharge Date Admission Date: January 12, 2023 Subjective Still coughing a lot and especially after eating, feels like things get stucks sometimes in her chest ever since her open heart surgery. Still very SOB, wheezing a lot. Has chronic daily chest pain since her sternotomy. Moving bowels, no urinary issues. Tele with NSR, rates 60-70s Physical Exam Constitutional: WD/WN, vitals as above Respiratory: normal respiratory effort and + cough Auscultation: + wheezes (diffusely); no crackles and no rhonchi Cardiovascular: RRR, no murmur, no edema Gastrointestinal (Abdomen): normal bowel sounds, soft, nontender, no hepatosplenomegaly Musculoskeletal: Extremities: extremities normal to inspection; no cyanosis and no clubbing Skin: no rashes, warm and dry Neurologic: moves all extremities and awake; no focal motor deficits Psychiatric: A+Ox3, euthymic affect Lymphatic: no lymphedema Results & Data Results & Data Vital Signs (Past 12 Hours) Vital Signs Temp Pulse Pulse Resp BP Pulse Ox O2 Del Method 01/16/23 16:24 71 01/16/23 16:00 36.7 C 75 18 111/64 98 Nasal Cannula 01/16/23 15:23 74 22 98 Nasal Cannula 01/16/23 11:29 76 22 96 Nasal Cannula 01/16/23 11:07 36.8 C 82 20 126/81 93 Nasal Cannula 01/16/23 10:26 63 01/16/23 10:26 Room Air 01/16/23 07:18 65 22 96 Nasal Cannula 01/16/23 07:36 36.5 C 76 20 176/96 H 94 Room Air O2 Flow Rate 01/16/23 16:24 01/16/23 16:00 2 01/16/23 15:23 2 01/16/23 11:29 2 01/16/23 11:07 2 01/16/23 10:26 01/16/23 10:26 01/16/23 07:18 2 01/16/23 07:36 Laboratory Results CBC, BMP reviewed PG Care Time/CCT Total # of Minutes Spent Total Time Spent with Patient: Total time spent is greater than 50% in coordination of care (as documented) at patient's floor/unit and/or counseling patient: Coding Level of Care Code 71088 SUB INP/OBS CARE 2/35MIN Diagnoses Acute severe exacerbation of intrinsic asthma J45.901 Infection due to human metapneumovirus (hMPV) B34.8 Acute respiratory failure with hypoxia J96.01 Congestive heart failure due to valvular disease I50.9; I38 Chest pain R07.9 Chest pain type: unspecified History of mitral valve replacement with mechanical valve Z95.2 Hypertension I10 Hypertension type: essential hypertension Hyperlipidemia E78.5 Hyperlipidemia type: unspecified Dysfunctional uterine bleeding N93.8 Odynophagia R13.10 (5) Chest pain Chest pain type: unspecified Qualified Code(s): R07.9 - Chest pain, unspecified (7) Hypertension Hypertension type: essential hypertension Qualified Code(s): I10 - Essential (primary) hypertension (8) Hyperlipidemia Hyperlipidemia type: unspecified Qualified Code(s): E78.5 - Hyperlipidemia, unspecified
[2023-01-16] MEDS: ATORVASTATIN 40 MG TAB PO SCH (22:04)
[2023-01-17] MEDS: methylPREDNISolone 40 MG in SYRINGE 0 ML IV SCH ×4 (00:43→23:18)
[2023-01-17] MEDS: MoRPHine SULFATE 2 MG/ML CARP IV PRN ×5 (03:14→23:17)
[2023-01-17] MEDS: ALBUT/IPRATROP 3MG/0.5MG NEB 3 ML VIAL NEB SCH ×6 (03:27→23:02)
[2023-01-17] MEDS: BUDESONIDE 0.5 MG/2 ML VIAL (PULMICORT) NEB SCH ×2 (07:11→19:02)
[2023-01-17] MEDS: FORMOTEROL 20 MCG/2 ML VIAL NEB SCH ×2 (07:11→19:02)
[2023-01-17 07:30] LABS: Basophils # (auto) 0.03 K/uL (0-0.2); Basophils % (auto) 0.2 %; Hematocrit (blood only) 34.4 % (37.0-47.0); Hemoglobin 10.7 g/dl (12.0-16.0); Immature Granulocytes # (auto) 0.34 K/uL (0.01-0.20); Immature Granulocytes % (auto) 1.8 %; Lymphocytes # (auto) 3.15 K/uL (1.2-3.4); Lymphocytes % (auto) 16.3 %; Mean Corpuscular Hemoglobin 28.2 pg (25.0-34.0); Mean Corpuscular Hgb Conc 31.1 g/dL (32.0-36.0); Mean Corpuscular Volume 90.5 fL (80.0-100.0); Mean Platelet Volume 11.6 fL (9.4-12.4); Monocytes # (auto) 1.14 K/uL (0.11-0.59); Monocytes % (auto) 5.9 %; Neutrophils # (auto) 14.63 K/uL (1.40-6.50); Neutrophils % (auto) 75.8 %; Platelet Count 279 K/uL (130-400); RDW Coefficient of Variation 16.9 % (11.5-14.5); RDW Standard Deviation 55.8 fL (36.4-46.3); White Blood Count 19.29 K/ul (4.8-10.8)
[2023-01-17 07:44] LABS: Prothrombin Time 29.8 Seconds (9.0-12.0)
[2023-01-17 07:55] LABS: BUN Creatinine Ratio 34.7 (10-20); Calcium 8.2 mg/dl (8.6-10.3); Creatinine Clr Calc Pharmacy 83.3 ml/min; Est GFR (African American) 76.5 ml/min
[2023-01-17] MEDS: PANTOprazole 40 MG TAB PO SCH ×2 (09:10→21:35)
[2023-01-17] MEDS: FUROSEMIDE 80 MG TAB PO SCH (09:10)
[2023-01-17] MEDS: INSULIN ASPART PER UNIT CHARGE SC SCH ×4 (09:10→21:34)
[2023-01-17] MEDS: POTASSIUM CHLORIDE CRTAB 20 MEQ TABCR PO SCH (09:10)
[2023-01-17] MEDS: LANTUS PER UNIT CHARGE SQ SCH ×2 (09:10→21:35)
[2023-01-17] MEDS: LOSARTAN POTASSIUM 25 MG TAB PO SCH (09:10)
[2023-01-17] MEDS: METOPROLOL SUCC 25MG EXT REL TAB PO SCH (09:10)
[2023-01-17] MEDS ORDERED: INSULIN ASPART PER UNIT CHARGE SC ONE (09:11)
[2023-01-17] MEDS ORDERED: LANTUS PER UNIT CHARGE SQ ONE (09:11)
[2023-01-17] MEDS: PREGABALIN 50 MG CAP PO SCH ×2 (09:34→12:47)
[2023-01-17] MEDS: MUPIROCIN 2% OINT 22 GM TUBE TOP SCH ×3 (09:34→21:35)
--- NOTE | 2023-01-17 15:44 | Hospitalist Progress Note ---
Date of Service January 17, 2023 Assessment & Plan (1) Acute severe exacerbation of intrinsic asthma: Plan: Improving with intravenous steroids and continued nebulizer treatments, but with ongoing wheezing, cough -continue current dose of IV steroids -continue scheduled nebs, Budesonide,formoterol -add on Robitussin DM scheduled q6 hours (2) Infection due to human metapneumovirus (hMPV): Plan: Suspected viral infection has caused exacerbation of asthma. continue supportive care and tx for asthma - isolation precautions (3) Acute respiratory failure with hypoxia: Plan: Present on admission. Much improved. Wean off oxygen as tolerated. 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 Known ejection fraction 35%. Much improved with intravenous Lasix diuresis. Monitor intake and output. Chest x-ray is now clear. -dc'd IV lasix and converted to home po lasix 80mg po daily -continue Toprol XL,losartan (5) Chest pain: Plan: Chronic. Post sternotomy chest wall etiology. No evidence of acute coronary syndrome. Telemetry -continue Lyrica but increase dose to 75mg po tid -continue flexeril, morphine prn -sees Pain Management as outpt -add home Voltaren gel (6) History of mitral valve replacement with mechanical valve: Plan: Continue Coumadin therapy. INR is therapeutic. Goal INR range 2.5-3.5. Follow INR (7) Hypertension: Plan: Continue current medical management. Now controlled -continue home Toprol XL, losartan, lasix (8) Hyperlipidemia: Plan: Low-fat diet. Continue current statin (9) Dysfunctional uterine bleeding: Plan: Pelvic ultrasound negative for any significant pathology. She will need outpatient PLASTIC CUTTER follow-up. Hemoglobin is stable (10) Odynophagia: Plan: sensation of chest pain and cough after eating at times advised EGD as outpt vs Barium swallow but needs to recover from asthma exacerbation first Plan DVT proph-coumadin Dispo-continued stay on tele, will need rehab but not likely ready for dc for 2- 3 more days Admission and Anticipated Discharge Date Admission Date: January 12, 2023 Subjective Feeling a little better, less wheezing. Still with severe shooting sharp pains through her chest all day long, L>R. Tele with ectopic/junctional rhythm, normal rates Physical Exam Constitutional: WD/WN, vitals as above Respiratory: normal respiratory effort and + cough Auscultation: + wheezes (diffusely); no crackles and no rhonchi Cardiovascular: RRR, no murmur, no edema Gastrointestinal (Abdomen): normal bowel sounds, soft, nontender, no hepatosplenomegaly Musculoskeletal: Extremities: extremities normal to inspection; no cyanosis and no clubbing Skin: no rashes, warm and dry Neurologic: moves all extremities and awake; no focal motor deficits Psychiatric: A+Ox3, euthymic affect Lymphatic: no lymphedema Results & Data Results & Data Vital Signs (Past 12 Hours) Vital Signs Temp Pulse Pulse Resp BP Pulse Ox O2 Del Method 01/17/23 15:26 36.9 C 74 19 117/76 94 Room Air 01/17/23 15:15 97 01/17/23 14:57 72 20 98 Room Air 01/17/23 11:50 37.0 C 85 19 143/86 H 93 Room Air 01/17/23 08:00 62 01/17/23 08:00 Room Air 01/17/23 10:17 111 H 18 95 Room Air 01/17/23 08:54 68 20 92 Room Air 01/17/23 08:15 36.8 C 75 20 133/76 93 Room Air 01/17/23 04:37 66 Laboratory Results CBC, INR, BMP reviewed PG Care Time/CCT Total # of Minutes Spent Total Time Spent with Patient: Total time spent is greater than 50% in coordination of care (as documented) at patient's floor/unit and/or counseling patient: Coding Level of Care Code 66617 SUB INP/OBS CARE 3/50MIN Diagnoses Acute severe exacerbation of intrinsic asthma J45.901 Infection due to human metapneumovirus (hMPV) B34.8 Acute respiratory failure with hypoxia J96.01 Congestive heart failure due to valvular disease I50.9; I38 Chest pain R07.9 Chest pain type: unspecified History of mitral valve replacement with mechanical valve Z95.2 Hypertension I10 Hypertension type: essential hypertension Hyperlipidemia E78.5 Hyperlipidemia type: unspecified Dysfunctional uterine bleeding N93.8 Odynophagia R13.10 (5) Chest pain Chest pain type: unspecified Qualified Code(s): R07.9 - Chest pain, unspecified (7) Hypertension Hypertension type: essential hypertension Qualified Code(s): I10 - Essential (primary) hypertension (8) Hyperlipidemia Hyperlipidemia type: unspecified Qualified Code(s): E78.5 - Hyperlipidemia, unspecified
[2023-01-17] MEDS ORDERED: PREGABALIN 25 MG CAP PO ONE (15:45)
[2023-01-17] MEDS: guaiFENesin/DEXTROM SYRUP 200MG/20MG 10ML UDC PO SCH ×2 (16:19→21:36)
[2023-01-17] MEDS: DICLOFENAC SOD 1% GEL 100 GM TUBE EXT PRN (16:19)
[2023-01-17] MEDS: WARFARIN SOD 5 MG TAB PO SCH (16:20)
[2023-01-17] MEDS: ATORVASTATIN 40 MG TAB PO SCH (21:35)
[2023-01-17] MEDS: CYCLOBENZAPRINE HCL 5 MG TAB PO PRN (21:36)
[2023-01-17] MEDS: PREGABALIN 75 MG CAP PO SCH (21:36)
[2023-01-18] MEDS: guaiFENesin/DEXTROM SYRUP 200MG/20MG 10ML UDC PO SCH ×4 (03:39→20:46)
[2023-01-18] MEDS: ALBUT/IPRATROP 3MG/0.5MG NEB 3 ML VIAL NEB SCH ×6 (03:40→22:42)
[2023-01-18] MEDS: MoRPHine SULFATE 2 MG/ML CARP IV PRN ×6 (04:37→23:56)
[2023-01-18] MEDS: BUDESONIDE 0.5 MG/2 ML VIAL (PULMICORT) NEB SCH ×2 (06:52→19:25)
[2023-01-18] MEDS: FORMOTEROL 20 MCG/2 ML VIAL NEB SCH ×2 (06:52→19:25)
[2023-01-18 07:01] LABS: Basophils # (auto) 0.03 K/uL (0-0.2); Basophils % (auto) 0.2 %; Hematocrit (blood only) 34.8 % (37.0-47.0); Immature Granulocytes # (auto) 0.51 K/uL (0.01-0.20); Immature Granulocytes % (auto) 2.7 %; Lymphocytes # (auto) 2.68 K/uL (1.2-3.4); Mean Corpuscular Hemoglobin 28.3 pg (25.0-34.0); Mean Corpuscular Hgb Conc 31.6 g/dL (32.0-36.0); Mean Corpuscular Volume 89.5 fL (80.0-100.0); Mean Platelet Volume 11.5 fL (9.4-12.4); Monocytes # (auto) 1.11 K/uL (0.11-0.59); Monocytes % (auto) 5.8 %; Neutrophils # (auto) 14.85 K/uL (1.40-6.50); Neutrophils % (auto) 77.3 %; Nucleated RBC # (auto) 0.02 K/uL (0-0.12); Nucleated RBC % (auto) 0.1 %; Platelet Count 273 K/uL (130-400); RDW Coefficient of Variation 16.7 % (11.5-14.5); RDW Standard Deviation 54.1 fL (36.4-46.3); Red Blood Count 3.89 M/uL (4.20-5.40); White Blood Count 19.18 K/ul (4.8-10.8)
[2023-01-18 07:26] LABS: INR 2.9 (0.9-1.1); Prothrombin Time 28.7 Seconds (9.0-12.0)
[2023-01-18 07:57] LABS: BUN Creatinine Ratio 36.3 (10-20); Calcium 8.2 mg/dl (8.6-10.3); Creatinine Clr Calc Pharmacy 86.1 ml/min; Est GFR (African American) 80.6 ml/min; Est GFR (Non-African American) 69.5 ml/min; Potassium 4.1 mmol/L (3.5-5.1)
[2023-01-18] MEDS: PREGABALIN 75 MG CAP PO SCH ×3 (08:37→20:46)
[2023-01-18] MEDS: POTASSIUM CHLORIDE CRTAB 20 MEQ TABCR PO SCH (08:37)
[2023-01-18] MEDS: CYCLOBENZAPRINE HCL 5 MG TAB PO PRN (08:37)
[2023-01-18] MEDS: METOPROLOL SUCC 25MG EXT REL TAB PO SCH (08:38)
[2023-01-18] MEDS: FUROSEMIDE 80 MG TAB PO SCH (08:38)
[2023-01-18] MEDS: DICLOFENAC SOD 1% GEL 100 GM TUBE EXT PRN (08:38)
[2023-01-18] MEDS: LOSARTAN POTASSIUM 25 MG TAB PO SCH (08:38)
[2023-01-18] MEDS: PANTOprazole 40 MG TAB PO SCH ×2 (08:39→20:46)
[2023-01-18] MEDS: INSULIN ASPART PER UNIT CHARGE SC SCH ×4 (08:49→20:45)
[2023-01-18] MEDS: LANTUS PER UNIT CHARGE SQ SCH ×2 (08:49→20:45)
[2023-01-18] MEDS: MUPIROCIN 2% OINT 22 GM TUBE TOP SCH ×3 (08:50→20:46)
[2023-01-18] MEDS: methylPREDNISolone 40 MG in SYRINGE 0 ML IV SCH ×3 (08:55→23:56)
--- NOTE | 2023-01-18 13:09 | XRay Report ---
XR chest 1V portable HISTORY: 57 years-old Female f/u bronchitis,assess for PNA acute shortness of breath COMPARISON: Chest radiograph 01/15/2023 TECHNIQUE: AP view of the chest FINDINGS: Cardiac silhouette is upper limits of normal in size. Prior median sternotomy with cardiac valvular p rosthesis. No pneumothorax, pleural effusion, airspace consolidation or pulmonary edema. Bones appear grossly intact. IMPRESSION: No acute process. ACT 112: Negative or not required by law. The above report was generated using voice recognition software. It may contain grammatical, syntax o r spelling errors. Electronically signed by: Errol Cruz M.D. 01/18/2023 1:08 PM
--- NOTE | 2023-01-18 14:18 | Hospitalist Progress Note ---
Date of Service January 18, 2023 Assessment & Plan (1) Acute severe exacerbation of intrinsic asthma: Plan: Very slow improvement with intravenous steroids and continued nebulizer treatments, but with ongoing wheezing, cough -continue current dose of IV steroids -continue scheduled nebs, Budesonide,formoterol -continue on Robitussin DM scheduled q6 hours (2) Infection due to human metapneumovirus (hMPV): Plan: Suspected viral infection has caused exacerbation of asthma. continue supportive care and tx for asthma - isolation precautions (3) Acute respiratory failure with hypoxia: Plan: Present on admission. Much improved. Wean off oxygen as tolerated. 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 Known ejection fraction 35%. Much improved with intravenous Lasix diuresis. Monitor intake and output. Chest x-ray is now clear. -dc'd IV lasix and converted to home po lasix 80mg po daily -continue Toprol XL,losartan (5) Chest pain: Plan: Chronic. Post sternotomy chest wall etiology. No evidence of acute coronary syndrome. -continue Lyrica but increased dose to 75mg po tid -continue flexeril, morphine prn -sees Pain Management as outpt -continue Voltaren gel (6) History of mitral valve replacement with mechanical valve: Plan: Continue Coumadin therapy. INR is therapeutic. Goal INR range 2.5-3.5. Follow INR (7) Hypertension: Plan: Continue current medical management. Now controlled -continue home Toprol XL, losartan, lasix (8) Hyperlipidemia: Plan: Low-fat diet. Continue current statin (9) Dysfunctional uterine bleeding: Plan: Pelvic ultrasound negative for any significant pathology. 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 Hemoglobin is stable (10) Odynophagia: Plan: sensation of chest pain and cough after eating at times advised EGD as outpt vs Barium swallow but needs to recover from asthma exacerbation first Plan DVT proph-coumadin Dispo-continued stay but downgrade from tele, will need rehab but not likely ready for dc for 2-3 more days Admission and Anticipated Discharge Date Admission Date: January 12, 2023 Subjective Feels her wheezing is a little better today. Still with same ongoing chest pain.No other concerns. No N/V, is moving bowels. Tele with junctional/ectopic atrial rhythm, rates 60s Physical Exam Constitutional: WD/WN, vitals as above Respiratory: normal respiratory effort and + cough Auscultation: + wheezes (diffusely); no crackles and no rhonchi moving air better today Cardiovascular: RRR, no murmur, no edema Gastrointestinal (Abdomen): normal bowel sounds, soft, nontender, no hepatosplenomegaly Musculoskeletal: Extremities: extremities normal to inspection; no cyanosis and no clubbing Skin: no rashes, warm and dry Neurologic: moves all extremities and awake; no focal motor deficits Psychiatric: A+Ox3, euthymic affect Lymphatic: no lymphedema Results & Data Results & Data Vital Signs (Past 12 Hours) Vital Signs Temp Pulse Pulse Resp BP Pulse Ox O2 Del Method 01/18/23 11:33 73 01/18/23 11:15 36.9 C 69 19 131/79 94 Room Air 01/18/23 11:08 78 18 100 Room Air 01/18/23 09:12 Room Air 01/18/23 07:08 37.0 C 71 19 131/80 92 Room Air 01/18/23 06:53 71 22 94 Room Air 01/18/23 03:40 16 CPAP 01/18/23 03:40 16 01/18/23 02:31 36.8 C 60 20 157/96 H 99 BiPAP O2 Flow Rate 01/18/23 11:33 01/18/23 11:15 01/18/23 11:08 01/18/23 09:12 01/18/23 07:08 01/18/23 06:53 01/18/23 03:40 2 01/18/23 03:40 2 01/18/23 02:31 Laboratory Results CBC, BMP, INR, Mag level reviewed Diagnostic Findings CXR image reviewed PG Care Time/CCT Total # of Minutes Spent Total Time Spent with Patient: Total time spent is greater than 50% in coordination of care (as documented) at patient's floor/unit and/or counseling patient: Coding Level of Care Code 09092 SUB INP/OBS CARE 2/35MIN Diagnoses Acute severe exacerbation of intrinsic asthma J45.901 Infection due to human metapneumovirus (hMPV) B34.8 Acute respiratory failure with hypoxia J96.01 Congestive heart failure due to valvular disease I50.9; I38 Chest pain R07.9 Chest pain type: unspecified History of mitral valve replacement with mechanical valve Z95.2 Hypertension I10 Hypertension type: essential hypertension Hyperlipidemia E78.5 Hyperlipidemia type: unspecified Dysfunctional uterine bleeding N93.8 Odynophagia R13.10 (5) Chest pain Chest pain type: unspecified Qualified Code(s): R07.9 - Chest pain, unspecified (7) Hypertension Hypertension type: essential hypertension Qualified Code(s): I10 - Essential (primary) hypertension (8) Hyperlipidemia Hyperlipidemia type: unspecified Qualified Code(s): E78.5 - Hyperlipidemia, unspecified
[2023-01-18] MEDS: WARFARIN SOD 5 MG TAB PO SCH (16:12)
[2023-01-18] MEDS: ATORVASTATIN 40 MG TAB PO SCH (20:46)
[2023-01-19] MEDS: ALBUT/IPRATROP 3MG/0.5MG NEB 3 ML VIAL NEB SCH ×6 (03:31→23:14)
[2023-01-19] MEDS: guaiFENesin/DEXTROM SYRUP 200MG/20MG 10ML UDC PO SCH ×4 (04:45→21:00)
[2023-01-19] MEDS: MoRPHine SULFATE 2 MG/ML CARP IV PRN ×3 (04:49→21:07)
[2023-01-19 06:59] LABS: Basophils # (auto) 0.03 K/uL (0-0.2); Basophils % (auto) 0.2 %; Hematocrit (blood only) 35.6 % (37.0-47.0); Hemoglobin 11.4 g/dl (12.0-16.0); Immature Granulocytes # (auto) 0.61 K/uL (0.01-0.20); Immature Granulocytes % (auto) 3.1 %; Lymphocytes # (auto) 2.32 K/uL (1.2-3.4); Lymphocytes % (auto) 11.7 %; Mean Corpuscular Hemoglobin 28.8 pg (25.0-34.0); Mean Corpuscular Volume 89.9 fL (80.0-100.0); Mean Platelet Volume 11.5 fL (9.4-12.4); Monocytes % (auto) 4.5 %; Neutrophils # (auto) 15.98 K/uL (1.40-6.50); Neutrophils % (auto) 80.5 %; Nucleated RBC # (auto) 0.03 K/uL (0-0.12); Nucleated RBC % (auto) 0.2 %; Platelet Count 287 K/uL (130-400); RDW Coefficient of Variation 16.9 % (11.5-14.5); RDW Standard Deviation 55.3 fL (36.4-46.3); Red Blood Count 3.96 M/uL (4.20-5.40); White Blood Count 19.84 K/ul (4.8-10.8)
[2023-01-19] MEDS: BUDESONIDE 0.5 MG/2 ML VIAL (PULMICORT) NEB SCH ×2 (07:00→19:55)
[2023-01-19] MEDS: FORMOTEROL 20 MCG/2 ML VIAL NEB SCH ×2 (07:00→19:55)
[2023-01-19 07:29] LABS: BUN Creatinine Ratio 38.5 (10-20); Calcium 8.3 mg/dl (8.6-10.3); Creatinine Clr Calc Pharmacy 81.6 ml/min; Est GFR (African American) 75.6 ml/min; Est GFR (Non-African American) 65.2 ml/min; Potassium 4.3 mmol/L (3.5-5.1)
[2023-01-19 07:50] LABS: INR 2.4 (0.9-1.1); Prothrombin Time 24.1 Seconds (9.0-12.0)
[2023-01-19] MEDS: FUROSEMIDE 80 MG TAB PO SCH (09:20)
[2023-01-19] MEDS: POTASSIUM CHLORIDE CRTAB 20 MEQ TABCR PO SCH (09:20)
[2023-01-19] MEDS: LOSARTAN POTASSIUM 25 MG TAB PO SCH (09:20)
[2023-01-19] MEDS: INSULIN ASPART PER UNIT CHARGE SC SCH ×5 (09:20→23:48)
[2023-01-19] MEDS: METOPROLOL SUCC 25MG EXT REL TAB PO SCH (09:20)
[2023-01-19] MEDS: PANTOprazole 40 MG TAB PO SCH ×2 (09:20→21:00)
[2023-01-19] MEDS: MUPIROCIN 2% OINT 22 GM TUBE TOP SCH ×3 (09:21→21:00)
[2023-01-19] MEDS: LANTUS PER UNIT CHARGE SQ SCH ×2 (09:21→20:59)
[2023-01-19] MEDS: CYCLOBENZAPRINE HCL 5 MG TAB PO PRN ×2 (09:22→21:07)
[2023-01-19] MEDS: PREGABALIN 75 MG CAP PO SCH ×3 (09:28→21:00)
[2023-01-19] MEDS: methylPREDNISolone 40 MG in SYRINGE 0 ML IV SCH ×3 (09:29→23:48)
[2023-01-19] MEDS: WARFARIN SOD 10 MG TAB PO SCH (17:06)
--- NOTE | 2023-01-19 20:50 | Hospitalist Progress Note ---
Date of Service January 19, 2023 Assessment & Plan (1) Acute severe exacerbation of intrinsic asthma: Plan: Very slow improvement with intravenous steroids and continued nebulizer treatments, but remains with ongoing wheezing, cough and dyspnea on minimal exertion Not requiring oxygen -continue current dose of IV steroids -continue scheduled nebs, Budesonide,formoterol -continue on Robitussin DM scheduled q6 hours (2) Infection due to human metapneumovirus (hMPV): Plan: Suspected viral infection has caused exacerbation of asthma. continue supportive care and tx for asthma - isolation precautions (3) Acute respiratory failure with hypoxia: Plan: Present on admission. Much improved. 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 Known ejection fraction 35%. Much improved with intravenous Lasix diuresis. Monitor intake and output. Chest x-ray is now clear. -Continue home lasix 80mg po daily -continue Toprol XL,losartan (5) Chest pain: Plan: Chronic. Post sternotomy chest wall etiology. No evidence of acute coronary syndrome. -continue Lyrica but increased dose to 75mg po tid and has had some slight improvement -continue flexeril, morphine prn -sees Pain Management as outpt -continue Voltaren gel (6) History of mitral valve replacement with mechanical valve: Plan: Continue Coumadin therapy. INR is now sub-therapeutic. Goal INR range 2.5-3.5. Increase Coumadin to 10 mg daily on 01/19 Follow INR daily (7) Hypertension: Plan: Continue current medical management. Now controlled -continue home Toprol XL, losartan, lasix (8) Hyperlipidemia: Plan: Low-fat diet. Continue current statin (9) Dysfunctional uterine bleeding: Plan: Pelvic ultrasound negative for any significant pathology. 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 Hemoglobin is stable (10) Odynophagia: Plan: sensation of chest pain and cough after eating at times advised EGD as outpt vs Barium swallow but needs to recover from asthma exacerbation first Plan DVT proph-coumadin Dispo-continued stay, will need rehab but not likely ready for dc for 2-3 more days due to ongoing significant wheezing and dyspnea with minimal exertion Admission and Anticipated Discharge Date Admission Date: January 12, 2023 Subjective Patient reports ongoing chest pain but feels that her wheezing and shortness of breath are improving. She does feel that the chest pain has improved somewhat since increasing her Lyrica dose. Otherwise she is doing well, moving bowels, eating, no other concerns. She just returned from the bathroom I saw her and was tachypneic at rest. Physical Exam Constitutional: WD/WN, vitals as above Respiratory: + cough and + tachypneic Auscultation: + wheezes (diffusely); no crackles and no rhonchi Moving air better today Cardiovascular: RRR, no murmur, no edema Gastrointestinal (Abdomen): normal bowel sounds, soft, nontender, no hepatosplenomegaly Musculoskeletal: Extremities: extremities normal to inspection; no cyanosis and no clubbing Skin: no rashes, warm and dry Neurologic: moves all extremities and awake; no focal motor deficits Psychiatric: A+Ox3, euthymic affect Lymphatic: no lymphedema Results & Data Results & Data Vital Signs (Past 12 Hours) Vital Signs Temp Pulse Resp BP Pulse Ox O2 Del Method 01/19/23 19:56 77 16 98 Room Air 01/19/23 15:40 36.7 C 73 16 130/76 98 Room Air 01/19/23 15:22 76 18 99 Room Air 01/19/23 09:20 Room Air 01/19/23 11:11 72 16 96 Room Air Laboratory Results CBC, BMP, and INR reviewed PG Care Time/CCT Total # of Minutes Spent Total Time Spent with Patient: Total time spent is greater than 50% in coordination of care (as documented) at patient's floor/unit and/or counseling patient: Coding Level of Care Code 30928 SUB INP/OBS CARE 2/35MIN Diagnoses Acute severe exacerbation of intrinsic asthma J45.901 Infection due to human metapneumovirus (hMPV) B34.8 Acute respiratory failure with hypoxia J96.01 Congestive heart failure due to valvular disease I50.9; I38 Chest pain R07.9 Chest pain type: unspecified History of mitral valve replacement with mechanical valve Z95.2 Hypertension I10 Hypertension type: essential hypertension Hyperlipidemia E78.5 Hyperlipidemia type: unspecified Dysfunctional uterine bleeding N93.8 Odynophagia R13.10 (5) Chest pain Chest pain type: unspecified Qualified Code(s): R07.9 - Chest pain, unspecified (7) Hypertension Hypertension type: essential hypertension Qualified Code(s): I10 - Essential (primary) hypertension (8) Hyperlipidemia Hyperlipidemia type: unspecified Qualified Code(s): E78.5 - Hyperlipidemia, unspecified
[2023-01-19] MEDS: ATORVASTATIN 40 MG TAB PO SCH (20:59)
[2023-01-20] MEDS: MoRPHine SULFATE 2 MG/ML CARP IV PRN ×4 (02:04→22:59)
[2023-01-20] MEDS: ALBUT/IPRATROP 3MG/0.5MG NEB 3 ML VIAL NEB SCH ×6 (03:35→22:55)
[2023-01-20] MEDS: guaiFENesin/DEXTROM SYRUP 200MG/20MG 10ML UDC PO SCH ×4 (04:32→21:45)
[2023-01-20] MEDS: INSULIN ASPART PER UNIT CHARGE SC SCH ×5 (04:32→21:43)
[2023-01-20 06:52] LABS: Basophils # (auto) 0.04 K/uL (0-0.2); Basophils % (auto) 0.2 %; Hematocrit (blood only) 35.5 % (37.0-47.0); Hemoglobin 11.3 g/dl (12.0-16.0); Immature Granulocytes % (auto) 3.5 %; Lymphocytes # (auto) 2.72 K/uL (1.2-3.4); Mean Corpuscular Hemoglobin 28.4 pg (25.0-34.0); Mean Corpuscular Hgb Conc 31.8 g/dL (32.0-36.0); Mean Corpuscular Volume 89.2 fL (80.0-100.0); Mean Platelet Volume 11.5 fL (9.4-12.4); Monocytes # (auto) 1.22 K/uL (0.11-0.59); Monocytes % (auto) 5.4 %; Neutrophils # (auto) 17.94 K/uL (1.40-6.50); Neutrophils % (auto) 78.9 %; Nucleated RBC # (auto) 0.04 K/uL (0-0.12); Nucleated RBC % (auto) 0.2 %; Platelet Count 278 K/uL (130-400); RDW Coefficient of Variation 17.4 % (11.5-14.5); Red Blood Count 3.98 M/uL (4.20-5.40); White Blood Count 22.72 K/ul (4.8-10.8)
[2023-01-20 07:10] LABS: BUN Creatinine Ratio 42.2 (10-20); Est GFR (African American) 81.7 ml/min; Est GFR (Non-African American) 70.5 ml/min; Potassium 4.4 mmol/L (3.5-5.1)
[2023-01-20] MEDS: FORMOTEROL 20 MCG/2 ML VIAL NEB SCH ×2 (07:22→19:18)
[2023-01-20] MEDS: BUDESONIDE 0.5 MG/2 ML VIAL (PULMICORT) NEB SCH ×2 (07:22→19:18)
--- NOTE | 2023-01-20 08:53 | Hospitalist Progress Note ---
Date of Service January 20, 2023 Assessment & Plan (1) Acute severe exacerbation of intrinsic asthma: Plan: -Very slow improvement with intravenous steroids and continued nebulizer treatments, still with some dyspnea on minimal exertion, at times is on 1 L of oxygen but generally doing much better -Continue current dose of IV steroids decreased to every 12 hours, continue to decrease as able. Patient is WBC count is elevated in the setting of steroid use, no evidence of acute bacterial infection, Pro-Franck negative -Continue scheduled nebs, Budesonide, formoterol -Continue Robitussin DM scheduled q6 hours (2) Infection due to human metapneumovirus (hMPV): Plan: - Viral human metapneumovirus infection as suspected cause of asthma exacerbation, care of such as described above - Isolation precautions (3) Acute respiratory failure with hypoxia: Plan: -Present on admission. Much improved. 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 Known ejection fraction 35%. Much improved with intravenous Lasix diuresis. Monitor intake and output. Chest x-ray is now clear. -Continue home lasix 80mg po daily, no longer receiving IV diuresis -continue Toprol XL, losartan (5) Chest pain: Plan: -Chronic. Post sternotomy chest wall etiology. No evidence of acute coronary syndrome. -continue Lyrica at increased dose to 75mg po tid due to some slight improvement, continue this on discharge -continue flexeril, morphine prn -sees Pain Management as outpt -continue Voltaren gel (6) History of mitral valve replacement with mechanical valve: Plan: -Continue increased dose Coumadin therapy 10 mg daily. Goal INR range 2.5-3.5. -Repeat INR in a.m. (7) Hypertension: Plan: -continue home Toprol XL, losartan, lasix, BP normotensive (8) Hyperlipidemia: Plan: -Low-fat diet. Continue current statin (9) Dysfunctional uterine bleeding: Plan: - Pelvic ultrasound negative for any significant pathology. 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 Hemoglobin is stable at 11.3 today (10) Odynophagia: Plan: -sensation of chest pain and cough after eating at times -advised EGD as outpt vs Barium swallow but needs to recover from asthma exacerbation first, will get patient outpatient GI follow-up Plan DVT proph-coumadin Dispo-continued stay, ultimately to rehab facility on discharge Admission and Anticipated Discharge Date Admission Date: January 12, 2023 Subjective Patient with improvement in symptoms today, reports she is having more productive mucus that she can get up rather than it feeling stuck in her throat. Denies shortness of breath at the time of my evaluation. Denies other complaints. Review of Systems Review of Systems: All systems reviewed & are unremarkable except as noted in Subjective Physical Exam Constitutional: WD/WN, vitals as above Respiratory: Expiratory wheezes bilaterally, intermittent Cardiovascular: RRR, no murmur, no edema Gastrointestinal (Abdomen): normal bowel sounds, soft, nontender, no hepatosplenomegaly Skin: no rashes, warm and dry Psychiatric: A+Ox3, euthymic affect Results & Data Results & Data Vital Signs (Past 12 Hours) Vital Signs Temp Pulse Pulse Resp BP Pulse Ox O2 Del Method 01/20/23 08:00 36.6 C 72 18 152/85 H 100 Room Air 01/20/23 07:25 69 16 96 Room Air 01/20/23 03:35 64 19 100 CPAP 01/20/23 03:35 64 19 100 01/19/23 23:16 56 L 22 99 CPAP 01/19/23 23:16 56 L 22 99 01/19/23 23:12 Room Air 01/19/23 23:07 36.6 C 66 18 156/70 H 96 Room Air O2 Flow Rate FiO2 01/20/23 08:00 01/20/23 07:25 21 01/20/23 03:35 2 01/20/23 03:35 2 01/19/23 23:16 2 01/19/23 23:16 2 01/19/23 23:12 01/19/23 23:07 PG Care Time/CCT Total # of Minutes Spent Total Time Spent with Patient: Total time spent is greater than 50% in coordination of care (as documented) at patient's floor/unit and/or counseling patient: Coding Level of Care Code 85024 SUB INP/OBS CARE 2/35MIN Diagnoses Acute severe exacerbation of intrinsic asthma J45.901 Infection due to human metapneumovirus (hMPV) B34.8 Acute respiratory failure with hypoxia J96.01 Congestive heart failure due to valvular disease I50.9; I38 Chest pain R07.9 Chest pain type: unspecified History of mitral valve replacement with mechanical valve Z95.2 Hypertension I10 Hypertension type: essential hypertension Hyperlipidemia E78.5 Hyperlipidemia type: unspecified Dysfunctional uterine bleeding N93.8 Odynophagia R13.10 (5) Chest pain Chest pain type: unspecified Qualified Code(s): R07.9 - Chest pain, unspecified (7) Hypertension Hypertension type: essential hypertension Qualified Code(s): I10 - Essential (primary) hypertension (8) Hyperlipidemia Hyperlipidemia type: unspecified Qualified Code(s): E78.5 - Hyperlipidemia, unspecified
[2023-01-20] MEDS ORDERED: methylPREDNISolone 40 MG in SYRINGE 0 ML IV SCH ×2 (09:00→23:30)
[2023-01-20] MEDS: oxyCODONE HCL IR 5 MG TAB (IMMEDIATE RELEASE) PO PRN ×2 (10:32→16:24)
[2023-01-20] MEDS: METOPROLOL SUCC 25MG EXT REL TAB PO SCH (10:34)
[2023-01-20] MEDS: FUROSEMIDE 80 MG TAB PO SCH (10:34)
[2023-01-20] MEDS: PANTOprazole 40 MG TAB PO SCH ×2 (10:35→20:23)
[2023-01-20] MEDS: LOSARTAN POTASSIUM 25 MG TAB PO SCH (10:35)
[2023-01-20] MEDS: CYCLOBENZAPRINE HCL 5 MG TAB PO PRN (10:35)
[2023-01-20] MEDS: DICLOFENAC SOD 1% GEL 100 GM TUBE EXT PRN (10:38)
[2023-01-20] MEDS: LANTUS PER UNIT CHARGE SQ SCH ×3 (10:46→22:18)
[2023-01-20] MEDS: POTASSIUM CHLORIDE CRTAB 20 MEQ TABCR PO SCH (10:47)
[2023-01-20] MEDS: PREGABALIN 75 MG CAP PO SCH ×3 (10:47→20:22)
[2023-01-20] MEDS: MUPIROCIN 2% OINT 22 GM TUBE TOP SCH ×3 (10:52→20:23)
[2023-01-20] MEDS: methylPREDNISolone 40 MG in SYRINGE 0 ML IV SCH (16:12)
[2023-01-20] MEDS: WARFARIN SOD 10 MG TAB PO SCH (16:23)
[2023-01-20] MEDS: ATORVASTATIN 40 MG TAB PO SCH (20:23)
[2023-01-20] MEDS: COUGH DROP (SUGAR FREE) LOZ 24 LOZ/1 BOX BUCCAL PRN (20:23)
[2023-01-21] MEDS: ALBUT/IPRATROP 3MG/0.5MG NEB 3 ML VIAL NEB SCH ×6 (02:42→23:03)
[2023-01-21] MEDS: oxyCODONE HCL IR 5 MG TAB (IMMEDIATE RELEASE) PO PRN ×2 (02:49→19:45)
[2023-01-21] MEDS: guaiFENesin/DEXTROM SYRUP 200MG/20MG 10ML UDC PO SCH ×4 (03:33→21:54)
[2023-01-21] MEDS: MoRPHine SULFATE 2 MG/ML CARP IV PRN ×4 (05:53→22:07)
[2023-01-21 06:48] LABS: Hematocrit (blood only) 36.7 % (37.0-47.0); Hemoglobin 11.4 g/dl (12.0-16.0); Mean Corpuscular Hemoglobin 28.1 pg (25.0-34.0); Mean Corpuscular Hgb Conc 31.1 g/dL (32.0-36.0); Mean Corpuscular Volume 90.4 fL (80.0-100.0); Mean Platelet Volume 11.4 fL (9.4-12.4); Nucleated RBC # (auto) 0.04 K/uL (0-0.12); Nucleated RBC % (auto) 0.2 %; Platelet Count 287 K/uL (130-400); RDW Coefficient of Variation 17.5 % (11.5-14.5); RDW Standard Deviation 57.7 fL (36.4-46.3); Red Blood Count 4.06 M/uL (4.20-5.40); White Blood Count 23.42 K/ul (4.8-10.8)
[2023-01-21 07:02] LABS: BUN Creatinine Ratio 37.1 (10-20); Calcium 8.1 mg/dl (8.6-10.3); Creatinine Clr Calc Pharmacy 80.7 ml/min; Est GFR (African American) 74.6 ml/min; Est GFR (Non-African American) 64.4 ml/min; Potassium 4.6 mmol/L (3.5-5.1)
[2023-01-21] MEDS: FORMOTEROL 20 MCG/2 ML VIAL NEB SCH ×2 (07:21→19:01)
[2023-01-21] MEDS: BUDESONIDE 0.5 MG/2 ML VIAL (PULMICORT) NEB SCH ×2 (07:21→19:01)
--- NOTE | 2023-01-21 07:32 | Hospitalist Progress Note ---
Date of Service January 21, 2023 Assessment & Plan (1) Acute severe exacerbation of intrinsic asthma: Plan: -Very slow improvement with intravenous steroids and continued nebulizer treatments, will transition today to oral steroids and arrange for discharge home potentially tomorrow with home health physical therapy -Patient is WBC count is elevated in the setting of steroid use, no evidence of acute bacterial infection, Pro-Franck negative; anticipate this will continue to improve with de-escalation of steroids -Continue scheduled nebs, Budesonide, formoterol -Continue Robitussin DM scheduled q6 hours (2) Infection due to human metapneumovirus (hMPV): Plan: - Viral human metapneumovirus infection as suspected cause of asthma exacerbation, care of such as described above - Isolation precautions (3) Acute respiratory failure with hypoxia: Plan: -Present on admission. Much improved. 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 Known ejection fraction 35%. Much improved with intravenous Lasix diuresis. Monitor intake and output. Chest x-ray is now clear -Continue home lasix 80mg po daily, no longer receiving IV diuresis -Continue Toprol XL, losartan (5) Chest pain: Plan: -Chronic. Post sternotomy chest wall etiology. No evidence of acute coronary syndrome. -continue Lyrica at increased dose to 75mg po tid due to some improvement, continue this on discharge -continue flexeril, morphine prn -continue Voltaren gel -sees Pain Management as outpt in the near future (6) History of mitral valve replacement with mechanical valve: Plan: -Continue increased dose Coumadin therapy 10 mg daily. Goal INR range 2.5-3.5 -INR 2.7 today, continue daily INR while admitted with follow-up outpatient regarding her warfarin dosing after discharge (7) Hypertension: Plan: -continue home Toprol XL, losartan, lasix; BP normotensive (8) Hyperlipidemia: Plan: -Low-fat diet. Continue current statin (9) Dysfunctional uterine bleeding: Plan: - Pelvic ultrasound negative for any significant pathology. She will need outpatient WOODEN FENCE E[employer]OR follow-up. Hemoglobin is stable at 11.3 today (10) Odynophagia: Plan: -Sensation of chest pain and cough after eating at times, possibly some element secondary to post sternotomy? -advised EGD as outpt vs Barium swallow but needs to recover from asthma exacerbation first, will get patient outpatient GI follow-up Plan DVT proph-coumadin Dispo-anticipate discharge to home with home therapy tomorrow as long as patient's symptoms continue to improve with de-escalation of steroids Admission and Anticipated Discharge Date Admission Date: January 12, 2023 Subjective Patient with continued improvement in respiratory symptoms, reports she feels "pretty good", not requiring oxygen for hypoxia but does per patient wear oxygen at times at home for "comfort". Is feeling much stronger than she was prior to admission, still with chest wall pain and has upcoming appointments, but is thinking about discharge to home rather than to facility. Review of Systems Review of Systems: All systems reviewed & are unremarkable except as noted in Subjective Physical Exam Constitutional: WD/WN, vitals as above Respiratory: Expiratory wheezes bilaterally, intermittent, greatly improved air movement from yesterday Cardiovascular: RRR, no murmur, no edema Gastrointestinal (Abdomen): normal bowel sounds, soft, nontender, no hepatosplenomegaly Skin: no rashes, warm and dry Psychiatric: A+Ox3, euthymic affect Results & Data Results & Data Vital Signs (Past 12 Hours) Vital Signs Temp Pulse Pulse Resp BP Pulse Ox O2 Del Method 01/21/23 07:22 68 22 99 Nasal Cannula 01/21/23 02:42 72 22 99 CPAP 01/21/23 02:42 72 22 99 01/20/23 20:10 Room Air 01/20/23 22:56 68 22 98 BiPAP 01/20/23 22:56 68 22 98 01/20/23 20:55 36.9 C 76 18 137/75 97 Room Air O2 Flow Rate 01/21/23 07:22 2 01/21/23 02:42 2 01/21/23 02:42 2 01/20/23 20:10 01/20/23 22:56 2 01/20/23 22:56 2 01/20/23 20:55 PG Care Time/CCT Total # of Minutes Spent Total Time Spent with Patient: Total time spent is greater than 50% in coordination of care (as documented) at patient's floor/unit and/or counseling patient: Coding Level of Care Code 51978 SUB INP/OBS CARE MIN Diagnoses Acute severe exacerbation of intrinsic asthma J45.901 Infection due to human metapneumovirus (hMPV) B34.8 Acute respiratory failure with hypoxia J96.01 Congestive heart failure due to valvular disease I50.9; I38 Chest pain R07.9 Chest pain type: unspecified History of mitral valve replacement with mechanical valve Z95.2 Hypertension I10 Hypertension type: essential hypertension Hyperlipidemia E78.5 Hyperlipidemia type: unspecified Dysfunctional uterine bleeding N93.8 Odynophagia R13.10 (5) Chest pain Chest pain type: unspecified Qualified Code(s): R07.9 - Chest pain, unspecified (7) Hypertension Hypertension type: essential hypertension Qualified Code(s): I10 - Essential (primary) hypertension (8) Hyperlipidemia Hyperlipidemia type: unspecified Qualified Code(s): E78.5 - Hyperlipidemia, u nspecified
[2023-01-21 07:40] LABS: INR 2.7 (0.9-1.1)
[2023-01-21] MEDS ORDERED: methylPREDNISolone 40 MG in SYRINGE 0 ML IV SCH (09:00)
[2023-01-21] MEDS: INSULIN ASPART PER UNIT CHARGE SC SCH ×4 (09:19→21:47)
[2023-01-21] MEDS: LANTUS PER UNIT CHARGE SQ SCH ×2 (09:21→21:49)
[2023-01-21] MEDS: PANTOprazole 40 MG TAB PO SCH ×2 (09:23→21:52)
[2023-01-21] MEDS: CYCLOBENZAPRINE HCL 5 MG TAB PO PRN (09:24)
[2023-01-21] MEDS: LOSARTAN POTASSIUM 25 MG TAB PO SCH (09:24)
[2023-01-21] MEDS: FUROSEMIDE 80 MG TAB PO SCH (09:24)
[2023-01-21] MEDS: METOPROLOL SUCC 25MG EXT REL TAB PO SCH (09:26)
[2023-01-21] MEDS: MUPIROCIN 2% OINT 22 GM TUBE TOP SCH ×3 (09:26→22:06)
[2023-01-21] MEDS: POTASSIUM CHLORIDE CRTAB 20 MEQ TABCR PO SCH (09:45)
[2023-01-21] MEDS: PREGABALIN 75 MG CAP PO SCH ×3 (09:45→22:06)
[2023-01-21] MEDS: WARFARIN SOD 10 MG TAB PO SCH (17:31)
[2023-01-21] MEDS ORDERED: NICOTINE 21 MG/24 HR TDSY TD SCH (18:00)
[2023-01-21] MEDS: ATORVASTATIN 40 MG TAB PO SCH (21:52)
[2023-01-22] MEDS: oxyCODONE HCL IR 5 MG TAB (IMMEDIATE RELEASE) PO PRN ×3 (02:31→13:57)
[2023-01-22] MEDS: ALBUT/IPRATROP 3MG/0.5MG NEB 3 ML VIAL NEB SCH ×3 (02:50→09:46)
[2023-01-22] MEDS: guaiFENesin/DEXTROM SYRUP 200MG/20MG 10ML UDC PO SCH ×2 (03:57→08:46)
[2023-01-22] MEDS: MoRPHine SULFATE 2 MG/ML CARP IV PRN (06:17)
[2023-01-22] MEDS: FORMOTEROL 20 MCG/2 ML VIAL NEB SCH (07:20)
[2023-01-22] MEDS: BUDESONIDE 0.5 MG/2 ML VIAL (PULMICORT) NEB SCH (07:20)
[2023-01-22 07:47] LABS: INR 3.1 (0.9-1.1)
[2023-01-22] MEDS: CYCLOBENZAPRINE HCL 5 MG TAB PO PRN (08:40)
[2023-01-22] MEDS: FUROSEMIDE 80 MG TAB PO SCH (08:41)
[2023-01-22] MEDS: LOSARTAN POTASSIUM 25 MG TAB PO SCH (08:41)
[2023-01-22] MEDS: METOPROLOL SUCC 25MG EXT REL TAB PO SCH (08:42)
[2023-01-22] MEDS: MUPIROCIN 2% OINT 22 GM TUBE TOP SCH (08:45)
[2023-01-22] MEDS ORDERED: FIRST - Mouthwash BLM 5 ML UDP PO ONE (09:00)
[2023-01-22] MEDS ORDERED: LIDOCAINE 5% 1 PATCH TD SCH (09:00)
[2023-01-22] MEDS ORDERED: predniSONE 20 MG TAB PO SCH (09:00)
[2023-01-22] MEDS: PREGABALIN 75 MG CAP PO SCH (09:13)
[2023-01-22] MEDS: POTASSIUM CHLORIDE CRTAB 20 MEQ TABCR PO SCH (09:14)
[2023-01-22] MEDS: INSULIN ASPART PER UNIT CHARGE SC SCH ×2 (09:16→12:46)
[2023-01-22] MEDS: LANTUS PER UNIT CHARGE SQ SCH (09:17)
--- NOTE | 2023-01-22 09:31 | Discharge Summary ---
Discharge Summary Date of Service January 22, 2023 Admission HPI Per Admitting Provider Deb Lara is a 57 year old female with congestive heart failure, mitral valve replacement, asthma-COPD overlap, history of pulmonary embolism who presents to the ER with shortness of breath. She reports a 2 day history of shortness of breath and chest tightness which feels similar to her prior asthma exacerbation. She denies any fever, chills, nasal congestion or sinus pain. She has an associated dry cough. She has had chest pain since her mitral valve replacement which has not significant changed but worse when she coughs. En route in the ambulance she was given a duoneb and Solu-medrol 125mg IM. She reports some mild improvement with nebulizers given in the ER. Historically it has taken her several days to improve from her asthma exacerbations in hospital. In the ER she is metapneumovirus positive on the [employer] PCR. She is maintaining saturation > 92% on room air. However due to work of breathing, wheezing and lack of air movement she was referred to medicine for admission.Her INR is subtherapeutic for her mitral valve replacement and the ER provider discussed with Dr Lozano who recommended bridging anticogulation at this time. Admission Exam Per Admitting Provider Constitutional: WD/WN, vitals as above Eyes: PERRL, conjunctivae normal, anicteric sclerae ENMT: external ear and nose normal, oropharynx normal Respiratory: + respiratory distress, + labored breathing, + uses accessory muscles, + cough and + pursed lip breathing; + not able to speak in complete sentence and no stridor Auscultation: + breath sounds absent (bibasal), + diminished lung sounds (severely throughout) and + wheezes (expiratory); no crackles Cardiovascular: Rate/Rhythm: regular rate and regular rhythm Heart Sounds: + click Extremities: normal capillary refill; no pedal edema Chest (Breasts): Additional Comments:Chest pain worse on palpation Gastrointestinal (Abdomen): normal bowel sounds, soft, nontender, no hepatosplenomegaly Musculoskeletal: no cyanosis or clubbing, extremities motor strength 5/5 Skin: no rashes, warm and dry Neurologic: moves all extremities and awake; not confused Psychiatric: Orientation: alert and oriented x 3 Affect: + anxious affect Principal Dx & Hospital Course #1 = Principal Diagnosis (1) Acute severe exacerbation of intrinsic asthma: -Very slow improvement with intravenous steroids and continued nebulizer treatments, transitioned to oral steroid taper on discharge home -Patient's WBC count is elevated in the setting of steroid use, no evidence of acute bacterial infection, Pro-Franck negative; anticipate this will continue to improve with de-escalation of steroids -Continue nebs, home inhalers, prednisone taper at home, with home physical therapy/cardiac rehab -Can use Robitussin/Mucinex at home for cough/congestion -Dyspnea on exertion with physical therapy secondary to cardiac causes, not suspected to be secondary to lung pathology at this point given normal lung exam and patient is no longer hypoxic (2) Infection due to human metapneumovirus (hMPV): - Viral human metapneumovirus infection as suspected cause of asthma exacerbation, care of such as described above - Isolation precautions (3) Acute respiratory failure with hypoxia: -Present on admission. Much improved. -Is now weaned off oxygen to room air at rest, two-step did not qualify patient for home oxygen (4) Congestive heart failure due to valvular disease: -Acute on chronic combined systolic and diastolic CHF. Known ejection fraction 35%. Much improved with intravenous Lasix diuresis. Monitor intake and output. Chest x-ray is now clear -Continue home lasix 80mg po daily -Continue Toprol XL, losartan -Close follow-up with outpatient cardiology and cardiac rehab (5) Chest pain: -Chronic. Post sternotomy chest wall etiology. No evidence of acute coronary syndrome -Continue Lyrica at increased dose to 75mg po tid due to some improvement -Can continue [id number]-[id number] Voltaren gel/lidocaine patches for localized relief -Sees Pain Management as outpt in the near future -Very short course oxycodone 5 mg every 8 hours x15 tablets as needed for severe pain not improved with the above interventions (6) History of mitral valve replacement with mechanical valve: -Continue increased dose Coumadin therapy 10 mg daily. Goal INR range 2.5-3.5 -INR 3.1 today, continue increased dose Coumadin on discharge with INR follow-up by PCP (7) Hypertension: -continue home Toprol XL, losartan, lasix; BP normotensive (8) Hyperlipidemia: -Low-fat diet. Continue current statin (9) Dysfunctional uterine bleeding: - Pelvic ultrasound negative for any significant pathology. 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 Hemoglobin is stable at 11.3 today (10) Odynophagia: -Sensation of chest pain and cough after eating at times, possibly some element secondary to post sternotomy -Advised EGD as outpt vs Barium swallow but needs to recover from asthma exacerbation first, recommend outpatient GI follow-up Plan Dispo: discharge to home, follow up with OBGYN, GI, Cardiology Discharge Exam Constitutional WD/WN, vitals as above Respiratory normal respiratory effort, lungs clear to auscultation Cardiovascular RRR, no murmur, no edema Psychiatric A+Ox3, euthymic affect Updated Medication List Medication Instructions Recorded Confirmed Type nicotine 21 mg/24 hr daily 21 mg transdermal QAM #30 ea 01/26/22 01/11/23 Rx transdermal patch (Nicoderm CQ) albuterol sulfate 90 mcg/actuation 2 puff inhalation Q6 PRN Shortness 05/03/22 01/11/23 Rx aerosol inhaler Of Breath Or Wheezing #18 grams ipratropium bromide 17 2 puff inhalation TID #12.9 grams 05/03/22 01/11/23 Rx mcg/actuation HFA aerosol inhaler (Atrovent HFA) hydrocortisone 1 %-pramoxine 1 % 1 applic OR BID PRN hemorrhoids 07/18/22 01/11/23 Rx rectal foam (Proctofoam HC) #10 grams losartan 25 mg tablet 25 mg PO QAM #60 tabs 07/18/22 01/11/23 Rx Bedside Commode #1 ea 08/04/22 12/27/22 Rx Hospital Bed Homecare #1 ea 08/12/22 12/27/22 Rx atorvastatin 40 mg tablet 40 mg PO QPM 09/02/22 01/11/23 History chlorhexidine gluconate 0.12 % 15 ml buccal BID 09/02/22 01/11/23 History mouthwash diclofenac sodium 1 % topical gel 4 g topical QID PRN Pain 09/02/22 01/11/23 History (Arthritis Pain (diclofenac)) fluticasone propionate 100 1 inh inhalation BID 09/02/22 01/11/23 History mcg/actuation blister powder for inhalation mometasone-formoterol HFA 200 2 puff inhalation Q12H 09/02/22 01/11/23 History mcg-5 mcg/actuation aerosol inhaler (Dulera) metoprolol succinate 25 mg 25 mg PO QAM 09/23/22 01/11/23 History tablet,extended release 24 hr fluticasone furoate 100 1 inh inhalation DAILY 09/24/22 01/11/23 History mcg-vilanterol 25 mcg/dose inhalation powder (Breo Ellipta) pantoprazole 40 mg tablet,delayed 40 mg PO AMHS 09/24/22 01/11/23 History release mupirocin 2 % topical ointment 1 applic topical TID #15 grams 09/25/22 01/11/23 Rx metformin 750 mg tablet,extended 750 mg PO TID #90 tabs 09/26/22 01/11/23 Rx release 24 hr furosemide 40 mg tablet 80 mg PO QAM 11/01/22 01/11/23 History nitroglycerin 0.4 mg sublingual 0.4 mg sublingual Q5M PRN Chest 11/02/22 01/11/23 Rx tablet Pain #30 tabs potassium chloride 10 mEq 20 meq PO DAILY 30 days #120 caps 11/02/22 01/11/23 Rx capsule,extended release cyclobenzaprine 5 mg tablet 5 mg PO TID PRN muscle spasm #30 12/26/22 01/11/23 Rx tabs warfarin 5 mg tablet See Rx Instructions .Route .COMPLEX 12/27/22 01/11/23 History pregabalin 50 mg capsule 50 mg PO TID #90 caps 01/03/23 01/11/23 Rx dulaglutide 0.75 mg/0.5 mL 0.75 mg subcut WK 01/11/23 01/11/23 History subcutaneous pen injector (Trulicity) ipratropium 0.5 mg-albuterol 3 mg 3 ml NEB Q6H PRN 01/22/23 Rx (2.5 mg base)/3 mL nebulization wheezing/SOB/cough #180 mL soln lidocaine 5 % topical patch 1 patch topical DAILY #30 ea 01/22/23 Rx nystatin 100,000 unit/mL oral 5 ml PO QID 10 days #200 mL 01/22/23 Rx suspension oxycodone 5 mg tablet 5 mg PO TID PRN pain #15 tabs 01/22/23 Rx prednisone 10 mg tablet See Rx Instructions .Route 01/22/23 Rx .COMPLEX #30 tabs warfarin 10 mg tablet 10 mg PO DAILY@1600 30 days #30 01/22/23 Rx tabs Hospital Stay Data Consultations 01/11/23 17:20 ED Decision to Admit Stat Diagnostic Imagining Performed 01/13/23 15:09 US pelvic complete Urgent 01/13/23 20:45 US transvaginal Routine Discharge Instructions Given to Patient (Per Discharging Provider) You were admitted to the hospital for trouble breathing, and found to have asthma/COPD exacerbation. You were given IV steroids, azithromycin, and breathing treatments with improvement in your symptoms. You did have some shortness of breath with walking longer distances, but this is due to your cardiac history, so you need to continue cardiac rehab. Unfortunately you did not qualify for home oxygen, but we can send you nebulizers, oral steroids, pain medicine, and oral thrush medicine to the [facility] pharmacy. 1. Your steroid is a taper. 40milligrams daily x3 days, 30 milligrams daily x3 days, 20 milligrams daily x3 days, 10 milligrams daily x3 days, then stop 2. Due to your need for cardiac rehab, it was recommended that you go to skilled facility. Since you felt safe to go home, we arranged outpatient therapy. It is important to work with the therapists, with small bursts of activity, and use your shortness of breath to tell you when to take a break. You can do your nor mal home inhalers daily, and then use your rescue nebulizer every 6 hours if you need it for chest tightness. 3. Nystatin was sent for oral thrush. Be sure to rinse your mouth after using inhalers and nebulizers, and to do the thrush medicine every 6 hours for the next 10 days. 4. You can take the oxycodone for chest wall pain, and also can use lidocaine patches which can provide local relief. These meds were sent to [facility]. 5. You should follow up with OBGYN about your vaginal bleeding, their info was attached to this sheet. Total Time Total Time Spent Total Time Spent (In Minutes): 45 min Coding Level of Care Code 66765 INP/OBS DISCH >30 MIN Diagnoses Acute severe exacerbation of intrinsic asthma J45.901 Infection due to human metapneumovirus (hMPV) B34.8 Acute respiratory failure with hypoxia J96.01 Congestive heart failure due to valvular disease I50.9; I38 Chest pain R07.9 Chest pain type: unspecified History of mitral valve replacement with mechanical valve Z95.2 Hypertension I10 Hypertension type: essential hypertension Hyperlipidemia E78.5 Hyperlipidemia type: unspecified Dysfunctional uterine bleeding N93.8 Odynophagia R13.10
[2023-01-22] MEDS: NYSTATIN SUSP 500,000 U/5 ML UDC PO SCH ×2 (10:19→12:46)
[2023-01-22] MEDS: PANTOprazole 40 MG TAB PO SCH (12:53)
== END 2023-01-22 14:10 | disposition home health service (06) | DRG 202 ==
LOC: ED 14:32 → 2S 18:25 → INTOOBSV 18:25 → SUATTDRO 18:25 → 2S 18:47 → SUATTDRO 01-12 15:06 → 3W 01-18 16:40

== ENCOUNTER 2023-04-18 11:07 | Observation (INO) ==
[2023-04-18] MEDS ORDERED: ALBUT/IPRATROP 3MG/0.5MG NEB 3 ML VIAL NEB STA ×2 (11:47→11:48)
[2023-04-18] MEDS ORDERED: ASPIRIN 81 MG CHEW PO STA (12:11)
[2023-04-18 12:32] LABS: Base Excess VBG 6.7 mEq/L; HCO3 VBG 30 mmol/L; Oxygen Saturation VBG 78.2 %; PCO2 VBG 39 mmHg (38-50); PO2 VBG 46 mmHg
[2023-04-18 12:33] LABS: Basophils # (auto) 0.02 K/uL (0-0.2); Basophils % (auto) 0.2 %; Eosinophils % (auto) 1.1 %; Hematocrit (blood only) 40.9 % (37.0-47.0); Hemoglobin 13.3 g/dl (12.0-16.0); Immature Granulocytes # (auto) 0.02 K/uL (0.01-0.20); Immature Granulocytes % (auto) 0.2 %; Lymphocytes # (auto) 3.42 K/uL (1.2-3.4); Lymphocytes % (auto) 38.5 %; Mean Corpuscular Hemoglobin 29.8 pg (25.0-34.0); Mean Corpuscular Hgb Conc 32.5 g/dL (32.0-36.0); Mean Corpuscular Volume 91.5 fL (80.0-100.0); Mean Platelet Volume 11.5 fL (9.4-12.4); Monocytes # (auto) 0.48 K/uL (0.11-0.59); Monocytes % (auto) 5.4 %; Neutrophils # (auto) 4.84 K/uL (1.40-6.50); Neutrophils % (auto) 54.6 %; Platelet Count 314 K/uL (130-400); RDW Coefficient of Variation 14.9 % (11.5-14.5); RDW Standard Deviation 50.2 fL (36.4-46.3); Red Blood Count 4.47 M/uL (4.20-5.40); White Blood Count 8.88 K/ul (4.8-10.8)
--- NOTE | 2023-04-18 12:36 | XRay Report ---
TWO VIEW CHEST CLINICAL HISTORY: Cough. FINDINGS: PA and lateral chest radiographs are compared to study dated 02/22/2023. The patient is statu s post midline sternotomy and cardiac valve surgery. The heart is mildly enlarged. The pulmonary vasc ulature is noncongested. Chronic interstitial thickening is similar to previous. There is mild bibas ilar scarring/atelectasis. The lungs and pleural spaces are otherwise clear. There is no pneumothorax . The skeletal structures are osteopenic. The bony thorax appears intact. IMPRESSION: Cardiomegaly with no active disease in the chest. ACT 112: Negative or not required by law. Electronically signed by: Marin De La Rosa M.D. 04/18/2023 12:35 PM
[2023-04-18 12:44] LABS: BUN Creatinine Ratio 14.4 (10-20); Calcium 9.6 mg/dl (8.6-10.3); Creatinine Clr Calc Pharmacy 85.2 ml/min; Est GFR (African American) 81.7 ml/min; Est GFR (Non-African American) 70.5 ml/min; Magnesium 1.6 mg/dl (1.7-2.4); Potassium 3.5 mmol/L (3.5-5.1)
[2023-04-18 12:50] LABS: Troponin I High Sensitivity 18.9 pg/ml (0-14)
[2023-04-18 13:01] LABS: INR 2.2 (0.9-1.1); Partial Thromboplastin Ratio 1.2; Partial Thromboplastin Time 33.9 Seconds (21.0-31.0); Prothrombin Time 22.8 Seconds (9.0-12.0)
[2023-04-18 13:30] LABS: Adenovirus PCR Not Detected (NotDetected); Bordetella parapertussis PCR Not Detected (NotDetected); Bordetella pertussis PCR Not Detected (NotDetected); Chlamydia pneumoniae PCR Not Detected (NotDetected); Coronavirus 229E PCR Not Detected (NotDetected); Coronavirus CoV-2 (COVID19)PCR Not Detected (NotDetected); Coronavirus HKU1 PCR Not Detected (NotDetected); Coronavirus NL63 PCR Not Detected (NotDetected); Coronavirus OC43PCR Not Detected (NotDetected); Human Metapneumovirus PCR Not Detected (NotDetected); Influenza A PCR Not Detected (NotDetected); Influenza B PCR Not Detected (NotDetected); Mycoplasma pneumoniae PCR Not Detected (NotDetected); Parainfluenza Virus 1 PCR Not Detected (NotDetected); Parainfluenza Virus 2 PCR Not Detected (NotDetected); Parainfluenza Virus 4 PCR Not Detected (NotDetected); Respiratory Syncytial VirusPCR Not Detected (NotDetected); Rhinovirus/Enterovirus PCR Not Detected (NotDetected)
[2023-04-18] MEDS ORDERED: AZITHROMYCIN 500 MG in DEXTROSE 5% 250 ML IV STA (13:37)
[2023-04-18 13:38] LABS: Parainfluenza Virus 3 PCR DETECTED (NotDetected)
--- NOTE | 2023-04-18 14:16 | History & Physical Report ---
Date of Service April 18, 2023 Assessment & Plan (1) Asthma exacerbation with COPD (chronic obstructive pulmonary disease): Plan: -Admit to the PCU on tele and cont pulse oximetry -Currently in mild-moderate respiratory distress but stable on RA -At this time she appears to be in an asthma and COPD exacerbation due to acute Parainfluenza virus infection -She does have a Hx of HFrEF but appears euvolemic-slightly dry on exam, do not think she is in a CHF exacerbation at this time -Hemodynamically stable and stable on RA, has been taking Warfarin except for dose yesterday, INR is 2.2 today, but lower suspicion for PE at this time -S/P albuterol and 125 mg IV Solu-Medrol by EMS and 2 DuoNebs + 324 mg Asipirin and a dose of Azithromycin in the ED -Patient with significant cough, limiting her ability to speak in full sentences and take PO meds at this time -Will give 10 mg PO Guaifenesin/Codeine syrup and 2gm IV mag-sulfate STAT -Will give her dose of Breo-Ellipta now then give a 1-hour DuoNeb neb as she is still very wheezy -Will switch her to BID Doxycycline instead of Azithromycin as her QTc is in the 480's today -Will obtain sputum culture, BNP,sputum culture and STAT CT of the Chest wo con for further evaluation -Continue home breathing treatments, 60 mg IV Solu-medrol daily, prn O2 to keep SpO2 between 88-92%, prn antitussive, prn DuoNebs -Will monitor q4h ABG until her respiratory status is stable -Pulmonology consult placed -Home Warfarin for DVT PPX -DM II and HH diet, will start with clears and can advance as tolerated when her respiratory status is stable -AM CBC, BMP, Mag, PT/INR (2) Elevated troponin: Plan: -Initial high sen trop elevated at 18.9 -No acute ECG changes -Patient without acute changes in her chronic chest pain from her sternotomy l ast year for mitral valve replacement -Will repeat a 2 hour STAT repeat trop now -Continue to monitor on tele (3) Parainfluenza infection: Plan: -Supportive care as explained in asthma/COPD exacerbation (4) Chronic chest pain: Plan: -Currently at baseline at rest but exacerbated with coughing -Will continue Flexeril and lidocaine patch -Will hold prn Oxycodone for now to prevent respiratory suppression while on codeine/Guaifenesin for cough (5) History of mitral valve replacement with mechanical valve: Plan: -Goal INR is 2.5-3.5, currently at 2.2 today -Has not had her dose today -Will give 7.5 mg PO STAT, continue with 5 mg MWF and 7.5 mg on all other days -Monitor AM INR and adjust dosing as needed (6) Hypertension: Plan: -Stable -Continue losartan (7) Chronic systolic (congestive) heart failure: Plan: -Examines euvolemic-slightly dry on admission -Will obtain BNP and CT chest for further evaluation -Continue daily lasix and PO KCL for now (8) Hyperlipidemia: Plan: -Continue statin (9) Atrial fibrillation: Plan: -Currently in NSR -Continue metoprolol and Warfarin (10) Tobacco abuse: Plan: -Currently on Nicotine patches outpatient, will continue while admitted (11) Diabetes mellitus, type 2: Plan: -Hold metformin and Trulicity -Will need to monitor for hyperglycemia with steroid treatment -Monitor BSG q4h until respiratory status is stable, goal is 110-160 while on steroids -Start 5 units lantus BID, CF of 50 and CR of 15 -Clear liquid diet, advance to HH and DMII when respiratory status is stable -Adjust regimen as needed (12) Obstructive sleep apnea on CPAP: Plan: -HS CPAP ordered (13) GERD (gastroesophageal reflux disease): Plan: -Continue BID pantoprazole History of Present Illness Chief Complaint: URI symptoms, SOB Primary Care Provider: DO Deb [place] is a 57 year old female with a PMH significant for HFrEF (LVEF of 35-40%), mitral valve replacement on Warfarin, asthma-COPD overlap, history of pulmonary embolism, DMII, and HTN who presented to the [facility] ED via EMS from her PCPs office due to URI symptoms and increased WOB. Per chart review, the patient returned from a cruise on 04/03, started to develop URI symptoms on 04/10. Since 04/10 the patient has had significant SOB and wheezing, and has been needing to use her prn DuoNebs more frequently without improvement of symptoms. In the ED, vitals were stable. Labs were significant for an INR of 2.2, VBG pH of 7.50, mag of 1.6, initial high sen trop of 18.9, and full respiratory biofire positive for Parainfluenza virus 3. Chest xray was read as "Cardiomegaly with no active disease in the chest." and ECG shows NSR without acute ST segment or T-wave changes. Per the ED staff, the patient was given an albuterol treatment and IV solu-medrol in route. Prior to admission the the patient was given 324 mg Aspirin, 2 albuterol treatments, and a dose of Az ithromycin. At the time of the exam the patient was sitting in bed in respiratory distress. She has a severe cough, audible wheezing without stridor, and is unable to speak in full sentences. She confirms that she has been having progressive SOB, cough with increased sputum production, and wheezing since 04/10. She has been using her scheduled Breo-Ellipta and prn DuoNebs without relief. Her cough has been so severe over the past 24 hours that she has been unable to take her oral medications. She has chronic chest pain at her sternal surgical site which has been exacerbated with her cough, the patient does not radiate other than her chronic pain location. She does not have sputum production at baseline but has been having clear-yellow sputum production over the past few days. The DuoNeb treatments she received in the ED gave her minimal relief. She denies recent fever, abd pain, nausea, vomiting, diarrhea, dysuria, hematuria, melena, LE swelling, and recent trauma. She is no longer smoking and currently using nicotine patches. She is a full code and wishes for her to make medical decisions for her if she cannot make them herself. Please refer to Dr. Moise's attestation for any changes to the treatment plan Allergies Allergy/AdvReac Type Severity Reaction Status Date / Time No Known Allergies Allergy Verified 04/18/23 10:01 Home Medications Medication Instructions Recorded Confirmed Type nicotine 21 mg/24 hr daily 21 mg transdermal QAM #30 ea 01/26/22 04/18/23 Rx transdermal patch (Nicoderm CQ) albuterol sulfate 90 mcg/actuation 2 puff inhalation Q6 PRN Shortness 05/03/22 04/18/23 Rx aerosol inhaler Of Breath Or Wheezing #18 grams ipratropium bromide 17 2 puff inhalation TID #12.9 grams 05/03/22 04/18/23 Rx mcg/actuation HFA aerosol inhaler (Atrovent HFA) hydrocortisone 1 %-pramoxine 1 % 1 applic [place] BID PRN hemorrhoids 07/18/22 04/18/23 Rx rectal foam (Proctofoam HC) #10 grams losartan 25 mg tablet 25 mg PO QAM #60 tabs 07/18/22 04/18/23 Rx Bedside Commode #1 ea 08/04/22 04/18/23 Rx Hospital Bed Homecare #1 ea 08/12/22 04/18/23 Rx atorvastatin 40 mg tablet 40 mg PO QPM 09/02/22 04/18/23 History diclofenac sodium 1 % topical gel 4 g topical QID PRN Pain 09/02/22 04/18/23 History (Arthritis Pain (diclofenac)) metoprolol succinate 25 mg 25 mg PO QAM 09/23/22 04/18/23 History tablet,extended release 24 hr fluticasone furoate 100 1 inh inhalation DAILY 09/24/22 04/18/23 History mcg-vilanterol 25 mcg/dose inhalation powder (Breo Ellipta) pantoprazole 40 mg tablet,delayed 40 mg PO AMHS 09/24/22 04/18/23 History release mupirocin 2 % topical ointment 1 applic topical TID #15 grams 09/25/22 04/18/23 Rx metformin 750 mg tablet,extended 750 mg PO TID #90 tabs 09/26/22 04/18/23 Rx release 24 hr furosemide 40 mg tablet 80 mg PO QAM 11/01/22 04/18/23 History nitroglycerin 0.4 mg sublingual 0.4 mg sublingual Q5M PRN Chest 11/02/22 04/18/23 Rx tablet Pain #30 tabs potassium chloride 10 mEq 20 meq PO DAILY 30 days #120 caps 11/02/22 04/18/23 Rx capsule,extended release pregabalin 50 mg capsule 50 mg PO TID #90 caps 01/03/23 04/18/23 Rx ipratropium 0.5 mg-albuterol 3 mg 3 ml NEB Q6H PRN 01/22/23 04/18/23 Rx (2.5 mg base)/3 mL nebulization wheezing/SOB/cough #180 mL soln lidocaine 5 % topical patch 1 patch topical DAILY #30 ea 01/22/23 04/18/23 Rx oxycodone 5 mg tablet 5 mg PO TID PRN pain #15 tabs 01/22/23 04/18/23 Rx aspirin 81 mg tablet,delayed 81 mg PO DAILY 03/09/23 04/18/23 History release (Ecotrin Low Strength) chlorhexidine gluconate 0.12 % 15 ml buccal BID #118 mL 03/13/23 04/18/23 Rx mouthwash cyclobenzaprine 5 mg tablet 5 mg PO TID PRN muscle spasm #30 03/13/23 04/18/23 Rx tabs dulaglutide 0.75 mg/0.5 mL 0.75 mg (0.5 mL) subcut WK #2 mL 03/13/23 04/18/23 Rx subcutaneous pen injector (Trulicity) warfarin 5 mg tablet See Rx Instructions .Route .COMPLEX 03/23/23 04/18/23 History Past Med/Surg History Medical History Acute chest pain Acute severe exacerbation of intrinsic asthma Asthma exacerbation in COPD Asthma-COPD overlap syndrome Atrial fibrillation Bronchospasm Chest pain Chest pain CHF exacerbation Chronic diastolic congestive heart failure Chronic low back pain CSF leak hx Degeneration of cervical intervertebral disc Diabetes mellitus, type 2 oral medication DVT prophylaxis Dyspnea on exertion so severe pt is wheelchair bound (per [facility] record) Elevated troponin I level External hemorrhoids GERD (gastroesophageal reflux disease) Hemiplegic migraine History of COVID-19 diagnosed 2yrs ago---mild symptoms, no symptoms now History of pulmonary embolism on xarelto Hoarseness of voice Hx of coronary artery disease Hyperglycemia due to type 2 diabetes mellitus Mitral valve insufficiency Obesity SMITA on CPAP Postoperative keloid scar sternal Sternal pain Urinary incontinence Vertebral artery stenosis Vertigo Vitamin D deficiency Surgical History Facial fracture (2014) WITH RECONSTRUCTION History of bilateral tubal ligation History of cardiac cath X2 STENTS - (~2010, IN [place], [place] NO STENTS - ([facility] @ ~2014) No stents ([facility] 05/11/2022) - Follows Nita Moon - [facility] [place] History of colonoscopy History of esophagogastroduodenoscopy (EGD) History of heart artery stent X2 STENTS (2010) UNSURE OF KIND. NO STENT CARDS PER PT. History of hemorrhoidectomy (~2018) @ [facility] History of mandibular surgery History of transesophageal echocardiography ([facility]) performed 06/21/22 @ [facility]---per report pt has severe mitral valve insufficiency S/P left knee arthroscopy S/P MVR (mitral valve repair) S/p tibial fracture open treatment of Fx with plate/screws, Left leg Status post right foot surgery Family History Mother Breast cancer, Onset Age: 64 Type 2 diabetes mellitus Father Diabetes Coronary heart disease Type 2 diabetes mellitus Myocardial infarction, Onset Age: 52 Family/Other Hypertension sibling Denies family history of Ovarian cancer Social History Smoking Status: Former smoker Tobacco Type: Cigarettes Age Started Using Tobacco: 13; Age Quit Using Tobacco: 56; packs per day: 0.5; Cigarettes Per Day: 1/2 pack per day; Second Hand Exposure: No; Do You Dip or Chew Tobacco: No; Hx Alcohol Use: No Hx Substance Use: No Preferred Language: Malay Communication Ability: Effective Visual Impairment: No Limitations Hearing Ability: Normal 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 Beliefs That Will Affect Care: None marital status: Current Living Situation: Spouse Current Living Situation Comment: Home with current occupational status: disabled How many Children do You have: 5 Feels Safe at Home: Yes Childhood Exposure to Second-Hand Smoke: No Diet: low salt caffeine: Yes (1/2 cup of coffee a day) during the past year weight has: remained stable Dental Care, Regularly: No Physical Activity Frequency: 1-2 Times per Week Seatbelt Use: always Sunscreen Use: No Assistive Devices: Cane, CPAP, Glasses, Nebulizer and Walker Physical Exam Physical Exam: Physical Exam: General: In acute distress, older than stated age, ill-appearing but non- toxic HEENT: Normocephalic, atraumatic, no scleral icterus, pupils around round, symmetrical, and reactive to light, dry mucus membranes, trachea midline, no thy romegaly Chest/Pulm: Sternotomy scar appears well-healed, tender to palpation over the sternotomy site and left chest (at baseline), mild-moderate respiratory distress, unable to speak in full sentences, severe cough, symmetrical chest expansion, expiratory wheezing noted throughout Cardiac: RRR, no murmurs noted Abdomen: Negative for ascites and bruising, normoactive bowel sounds, soft, non-tender to palpation throughout Musculoskeletal: Symmetrical and without signs of acute trauma, upper and lower extremities with full ROM, no atrophy, spasticity, or flaccidity Extremities: Radial, dorsalis pedis, and posterior tibial pulses are intact and symmetrical, no edema noted in the BL LE's Skin: Warm, dry, no rashes , lesions, or scars noted Neuro: Alert and oriented to person, place, month, year, and president, no focal defects, no tremors noted Psych: In mild distress due to respiratory status but pleasant and cooperative during the exam Results & Data Results & Data Vital Signs (Past 12 Hours) Vital Signs Temp Pulse Pulse Resp BP BP Pulse Ox 04/18/23 13:00 85 04/18/23 12:34 89 24 165/77 H 97 04/18/23 11:55 85 99 04/18/23 11:22 36.6 C 92 H 23 141/94 H 97 O2 Del Method 04/18/23 13:00 04/18/23 12:34 Room Air 04/18/23 11:55 Nebulizer 04/18/23 11:22 Room Air Laboratory Results Abnormal lab results 04/18/23 04/18/23 04/18/23 Range/Units 12:03 12:03 12:03 RDW Std Deviation 50.2 H (36.4-46.3) fL RDW Coeff of Majo 14.9 H (11.5-14.5) % Lymph # (Auto) 3.42 H (1.2-3.4) K/uL PT 22.8 H (9.0-12.0) Seconds INR 2.2 H (0.9-1.1) APTT 33.9 H (21.0-31.0) Seconds VBG pH (7.36-7.41) Glucose 136 H (70-99(Fasting)) mg/dl Magnesium 1.6 L (1.7-2.4) mg/dl Troponin I High Sens 18.9 H (0-14) pg/ml Parainfluenza 3 (PCR) (NotDetected) 04/18/23 04/18/23 Range/Units 12:15 12:15 RDW Std Deviation (36.4-46.3) fL RDW Coeff of Majo (11.5-14.5) % Lymph # (Auto) (1.2-3.4) K/uL PT (9.0-12.0) Seconds INR (0.9-1.1) APTT (21.0-31.0) Seconds VBG pH 7.50 H (7.36-7.41) Glucose (70-99(Fasting)) mg/dl Magnesium (1.7-2.4) mg/dl Troponin I High Sens (0-14) pg/ml Parainfluenza 3 (PCR) DETECTED A* (NotDetected) Diagnostic Findings Chest X-Ray 04/18/23 11:47 TWO VIEW CHEST CLINICAL HISTORY: Cough. FINDINGS: PA and lateral chest radiographs are compared to study dated 02/22/2023. The patient is status post midline sternotomy and cardiac valve surgery. The heart is mildly enlarged. The pulmonary vasculature is noncongested. Chronic interstitial thickening is similar to previous. There is mild bibasilar scarring/atelectasis. The lungs and pleural spaces are otherwise clear. There is no pneumothorax. The skeletal structures are osteopenic. The bony thorax appears intact. IMPRESSION: Cardiomegaly with no active disease in the chest. ACT 112: Negative or not required by law. Electronically signed by: Marin De La Rosa M.D. 04/18/2023 12:35 PM ECG Additional Comments: Normal sinus rhythm Minimal voltage criteria for LVH, may be normal variant ( R in aVL ) Nonspecific T wave abnormality Abnormal ECG When compared with ECG of 22-FEB-2023 11:24, Previous ECG has undetermined rhythm, needs review Criteria for Septal infarct are no longer Present Code Status & VTE Plan Code Status Full code VTE Prophylaxis Plan VTE Prophylaxis will be ordered: Yes Supervising Physician Co-Signing Physician Notes Deb is a 57-year-old female with a past medical history of asthma/COPD overla p, mitral valve replacement with mechanical valve, A-fib, anticoagulation with warfarin, type II DM, history of tobacco abuse, GERD, and PE who presents with asthma/COPD exacerbation, tachypnea, and congestion and who was found to be parainfluenza positive. CXR: Cardiomegaly with no active disease Last PFTs 08/29/2022: FVC 2.3 (65% predicted) FEV1 1.99 (72% predicted), FEV1/FVC ratio 86 (109% predicted), DLCO 68% predicted. Nonspecific, significant postbronchodilator response, mild to moderate reduction in DLCO. This [place] [facility] [place]History of heart failure with reduced ejection fraction 35-40% Admission EKG sinus without acute ischemic changes. Trope mildly elevated 18.9, repeat pending suspect demand BMP is pending Mag 1.6, repleted Noted no leukocytosis INR 2.2 on admission, patient is compliant with warfarin regimen No edema VBG on admit 7.5/39/46/30 Lungs diffusely coarse with diffuse wheezing throughout She is not hypoxic at time of bedside assessment Continue nebs, continue inhalers Do not hyper oxygenate Supportive care for parainfluenza Received 125 mg methylprednisolone load, continue steroids and wean as able. PPV ordered Azithromycin course ordered for COPD exacerbation Flutter valve, incentive spirometry Significantly increased work of breathing at bedside. CTchest is pending. Pulmonary consulted, appreciate recommendations Agree with management of chronic medical issues as noted above PG Care Time/CCT Total # of Minutes Spent Total Time Spent with Patient: Total time spent is greater than 50% in coordination of care (as documented) at patient's floor/unit and/or counseling patient: Coding [place] [address] INT INP/OBS CARE 3/75MIN Patient Type Established Medical Decision Making High Complexity Diagnoses Asthma exacerbation with COPD (chronic obstructive pulmonary disease) J44.1; J45.901 Elevated troponin R77.8 Parainfluenza infection B34.8 Chronic chest pain R07.9; G89.29 History of mitral valve replacement with mechanical valve Z95.2 Hypertension I10 Hypertension type: essential hypertension Chronic systolic (congestive) heart failure I50.22 Hyperlipidemia E78.5 Hyperlipidemia type: unspecified Atrial fibrillation I48.91 Tobacco abuse Z72.0 Diabetes mellitus, type 2 E11.65; Z79.4 Diabetes mellitus complication status: with hyperglycemia 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: with correction use Obstructive sleep apnea on CPAP G47.33; Z99.89 GERD (gastroesophageal reflux disease) K21.9 (6) Hypertension Hypertension type: essential hypertension Qualified Code(s): I10 - Essential (primary) hypertension (8) Hyperlipidemia Hyperlipidemia type: unspecified Qualified Code(s): E78.5 - Hyperlipidemia, unspecified (11) Diabetes mellitus, type 2 Diabetes mellitus complication status: with hyperglycemia 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
[2023-04-18] MEDS ORDERED: guaiFENesin/CODEINE 100MG/10MG 5ML UDC PO STA (14:20)
--- NOTE | 2023-04-18 14:26 | Electrocardiogram Report ---
Test Reason : Blood Pressure : / mmHG Vent. Rate : 093 BPM Atrial Rate : 093 BPM P-R Int : 150 ms QRS Dur : 072 ms QT Int : 388 ms P-R-T Axes : 000 004 069 degrees QTc Int : 482 ms Ectopic atrial rhythm Voltage criteria for left ventricular hypertrophy Diffuse Minor Nonspecific T wave abnormality Abnormal ECG When compared with ECG of 22-FEB-2023 11:24, Criteria for Septal infarct are no longer Present Confirmed by Rene Whittington ([id number]) on 04/18/2023 2:26:21 PM Referred By: Confirmed By:Rene Whittington
[2023-04-18] MEDS: MAGNESIUM SULFATE / D5W 1 GM/100 ML BAG IV SCH ×2 (14:28→15:23)
[2023-04-18] MEDS ORDERED: WARFARIN SOD 5 MG TAB PO ONE (14:39)
[2023-04-18] MEDS ORDERED: ALBUT/IPRATROP 3MG/0.5MG NEB 3 ML VIAL NEB ONE (14:43)
[2023-04-18] MEDS ORDERED: FLUTICASONE/VILANTEROL 100/25MCG 14 PUFFS/INHALER INH SCH (14:45)
[2023-04-18] MEDS ORDERED: MOMETASONE FUROATE 14 PUFF/1 INHALER INH SCH (14:45)
[2023-04-18] MEDS ORDERED: WARFARIN SOD 7.5 MG TAB PO ONE (14:48)
[2023-04-18] MEDS ORDERED: DEXTROSE 50% 50 ML SYRINGE IV PRN ×2 (15:15→17:25)
[2023-04-18] MEDS ORDERED: GLUCOSE 40% GEL 15 GM TUBE PO PRN ×2 (15:15→17:25)
[2023-04-18] MEDS ORDERED: CARBOHYDRATES FOR HYPOGLYCEMIA PO PRN ×2 (15:15→17:25)
[2023-04-18] MEDS ORDERED: GLUCAGON FOR INJ 1 MG VIAL SQ PRN ×2 (15:15→17:25)
[2023-04-18] MEDS ORDERED: GLUCOSE 10 TAB/TUBE PO PRN ×2 (15:15→17:25)
[2023-04-18] MEDS ORDERED: INSULIN ASPART PER UNIT CHARGE SC SCH (15:15)
--- NOTE | 2023-04-18 15:42 | Pulmonary Consultation ---
Date of Consultation April 18, 2023 Assessment & Plan (1) Parainfluenza infection: (2) Asthma exacerbation with COPD (chronic obstructive pulmonary disease): Plan Impression: 57-year-old female with severe cough and bronchospasm associated with parainfluenza infection. Recommendations: 1. Parainfluenza: No therapy available to treat this infection. Supportive care. Unclear if steroids are beneficial or harmful however given bronchospasm seems reasonable to continue. 2. Asthma exacerbation secondary to viral infection: Continue supportive management. Will place on nebulized budesonide, Perforomist, and DuoNeb scheduled. Additional cough suppression using Tessalon and codeine cough syrup. Low-dose benzodiazepines may also be effective if cough persists 3. Recommend the patient use CPAP nightly as this was effective. If her respiratory status should deteriorate, consideration for BiPAP might be appropriate. We will place an order for CPAP at 12 cmH2O and have her bring in her home machine when he can. 4. Management patient's other medical issues is deferred to the primary admitting service. We will continue to follow with you. Feel free to contact us with questions or concerns History of Present Illness History of Present Illness Asked by hospitalist to evaluate this patient with reported history of asthma and wheezing. History is obtained from discussion with the patient as well as review the electronic medical record. Patient is a 57-year-old female with a history of mitral valve replacement. She also reports a history of asthma/COPD. Last PFTs were performed August 2022 which showed no evidence of airflow obstruction with an FEV1 of 1.99 L or 72% predicted and an FVC of 2.3 L or 65% predicted and a ratio of 86. There was a 17% improvement in the FEV1 postbronchodilator administration. Lung volumes showed a total capacity of 87% predicted and diffusion capacity was 68% predicted. The patient presented to the emergency room today from her primary care's office with complaints of URI symptoms and increased work of breathing. The patient has been feeling poorly for about a week. In the emergency room she was noted to be wheezing and received steroids magnesium and inhaled bronchodilators. She was noted to be parainfluenza positive. Patient reports smoking cessation. Unclear which medications in the form of inhalers the patient was taking at home. Patient has a CPAP which she uses at 12 cmH2O at home. She states the CPAP has been effective in improving her cough. She does not report any ill contacts at home. Her is at the bedside. Allergies Allergy/AdvReac Type Severity Reaction Status Date / Time No Known Allergies Allergy Verified 04/18/23 10:01 Home Medications Medication Instructions Recorded Confirmed Type nicotine 21 mg/24 hr daily 21 mg transdermal QAM #30 ea 01/26/22 04/18/23 Rx transdermal patch (Nicoderm CQ) albuterol sulfate 90 mcg/actuation 2 puff inhalation Q6 PRN Shortness 05/03/22 04/18/23 Rx aerosol inhaler Of Breath Or Wheezing #18 grams ipratropium bromide 17 2 puff inhalation TID #12.9 grams 05/03/22 04/18/23 Rx mcg/actuation HFA aerosol inhaler (Atrovent HFA) hydrocortisone 1 %-pramoxine 1 % 1 applic MS BID PRN hemorrhoids 07/18/22 04/18/23 Rx rectal foam (Proctofoam HC) #10 grams losartan 25 mg tablet 25 mg PO QAM #60 tabs 07/18/22 04/18/23 Rx Bedside Commode #1 ea 08/04/22 04/18/23 Rx Hospital Bed Homecare #1 ea 08/12/22 04/18/23 Rx atorvastatin 40 mg tablet 40 mg PO QPM 09/02/22 04/18/23 History diclofenac sodium 1 % topical gel 4 g topical QID PRN Pain 09/02/22 04/18/23 History (Arthritis Pain (diclofenac)) metoprolol succinate 25 mg 25 mg PO QAM 09/23/22 04/18/23 History tablet,extended release 24 hr fluticasone furoate 100 1 inh inhalation DAILY 09/24/22 04/18/23 History mcg-vilanterol 25 mcg/dose inhalation powder (Breo Ellipta) pantoprazole 40 mg tablet,delayed 40 mg PO AMHS 09/24/22 04/18/23 History release mupirocin 2 % topical ointment 1 applic topical TID #15 grams 09/25/22 04/18/23 Rx metformin 750 mg tablet,extended 750 mg PO TID #90 tabs 09/26/22 04/18/23 Rx release 24 hr furosemide 40 mg tablet 80 mg PO QAM 11/01/22 04/18/23 History nitroglycerin 0.4 mg sublingual 0.4 mg sublingual Q5M PRN Chest 11/02/22 04/18/23 Rx tablet Pain #30 tabs potassium chloride 10 mEq 20 meq PO DAILY 30 days #120 caps 11/02/22 04/18/23 Rx capsule,extended release pregabalin 50 mg capsule 50 mg PO TID #90 caps 01/03/23 04/18/23 Rx ipratropium 0.5 mg-albuterol 3 mg 3 ml NEB Q6H PRN 01/22/23 04/18/23 Rx (2.5 mg base)/3 mL nebulization wheezing/SOB/cough #180 mL soln lidocaine 5 % topical patch 1 patch topical DAILY #30 ea 01/22/23 04/18/23 Rx oxycodone 5 mg tablet 5 mg PO TID PRN pain #15 tabs 01/22/23 04/18/23 Rx aspirin 81 mg tablet,delayed 81 mg PO DAILY 03/09/23 04/18/23 History release (Ecotrin Low Strength) chlorhexidine gluconate 0.12 % 15 ml buccal BID #118 mL 03/13/23 04/18/23 Rx mouthwash cyclobenzaprine 5 mg tablet 5 mg PO TID PRN muscle spasm #30 03/13/23 04/18/23 Rx tabs dulaglutide 0.75 mg/0.5 mL 0.75 mg (0.5 mL) subcut WK #2 mL 03/13/23 04/18/23 Rx subcutaneous pen injector (Trulicity) warfarin 5 mg tablet See Rx Instructions .Route .COMPLEX 03/23/23 04/18/23 History Patient History Medical History Acute chest pain Acute severe exacerbation of intrinsic asthma Asthma exacerbation in COPD Asthma-COPD overlap syndrome Atrial fibrillation Bronchospasm Chest pain Chest pain CHF exacerbation Chronic diastolic congestive heart failure Chronic low back pain CSF leak hx Degeneration of cervical intervertebral disc Diabetes mellitus, type 2 oral medication DVT prophylaxis Dyspnea on exertion so severe pt is wheelchair bound (per [facility] record) Elevated troponin I level External hemorrhoids GERD (gastroesophageal reflux disease) Hemiplegic migraine History of COVID-19 diagnosed 2yrs ago---mild symptoms, no symptoms now History of pulmonary embolism on xarelto Hoarseness of voice Hx of coronary artery disease Hyperglycemia due to type 2 diabetes mellitus Mitral valve insufficiency Obesity SMITA on CPAP Postoperative keloid scar sternal Sternal pain Urinary incontinence Vertebral artery stenosis Vertigo Vitamin D deficiency Surgical History Facial fracture (2014) WITH RECONSTRUCTION History of bilateral tubal ligation History of cardiac cath X2 STENTS - (~2010, [place], [place] NO STENTS - ([facility] @ ~2014) No stents ([facility] 05/11/2022) - Follows Nita Moon - [facility] [place] History of colonoscopy History of esophagogastroduodenoscopy (EGD) History of heart artery stent X2 STENTS (2010) UNSURE OF KIND. NO STENT CARDS PER PT. History of hemorrhoidectomy (~2017) @ [facility] History of mandibular surgery History of transesophageal echocardiography (GEORGETTE) performed 06/21/22 @ [facility]---per report pt has severe mitral valve insufficiency S/P left knee arthroscopy S/P MVR (mitral valve repair) S/p tibial fracture open treatment of Fx with plate/screws, Left leg Status post right foot surgery Family History Mother Breast cancer, Onset Age: 64 Type 2 diabetes mellitus Father Diabetes Coronary heart disease Type 2 diabetes mellitus Myocardial infarction, Onset Age: 52 Family/Other Hypertension sibling Denies family history of Ovarian cancer Social History Smoking Status: Former smoker Tobacco Type: Cigarettes Age Started Using Tobacco: 13; Age Quit Using Tobacco: 56; packs per day: 0.5; Cigarettes Per Day: 1/2 pack per day; Second Hand Exposure: No; Do You Dip or Chew Tobacco: No; Tobacco Cessation Education Requested by Patient: No Hx Alcohol Use: No Hx Substance Use: No Preferred Language: Sammarinese Communication Ability: Effective Visual Impairment: No Limitations Hearing Ability: Normal Siderographer Required: No Beliefs That Will Affect Care: None marital status: Current Living Situation: Spouse Current Living Situation Comment: Home with current occupational status: disabled How many Children do You have: 5 Other Information That Helps Us Care for You: No Feels Safe at Home: Yes Safety Concerns: Feels Safe At This Time Childhood Exposure to Second-Hand Smoke: No Diet: low salt caffeine: Yes (1/2 cup of coffee a day) during the past year weight has: remained stable Dental Care, Regularly: No Physical Activity Frequency: 1-2 Times per Week Seatbelt Use: always Sunscreen Use: No Assistive Devices: Cane, CPAP, Glasses, Nebulizer and Walker Review of Systems Review of Systems: All systems reviewed & are unremarkable except as noted in Subjective Physical Exam Constitutional: WD/WN, vitals as above Neck: trachea midline, no thyromegaly Respiratory: normal respiratory effort, lungs clear to auscultation Cardiovascular: RRR, no murmur, no edema Gastrointestinal (Abdomen): normal bowel sounds, soft, nontender, no hepatosplenomegaly Musculoskeletal: Extremities: extremities normal to inspection Skin: no rashes, warm and dry Neurologic: Nonfocal exam Lymphatic: no cervical lymphadenopathy Results & Data Results & Data Vital Signs (Past 12 Hours) Vital Signs Temp Pulse Pulse Resp BP BP Pulse Ox 04/18/23 14:52 86 24 129/64 95 04/18/23 14:10 84 25 H 93 04/18/23 14:01 85 18 94 04/18/23 14:01 129/64 04/18/23 14:00 85 23 95 04/18/23 13:50 86 17 97 04/18/23 13:40 87 17 97 04/18/23 13:30 88 16 97 04/18/23 13:20 88 19 95 04/18/23 13:10 86 15 97 04/18/23 13:00 86 16 96 04/18/23 13:00 168/93 H 04/18/23 12:50 86 25 H 98 04/18/23 12:40 88 17 94 04/18/23 12:35 165/77 H 04/18/23 12:35 89 18 04/18/23 12:30 87 19 04/18/23 12:27 93 H 25 H 04/18/23 12:10 88 25 H 98 04/18/23 12:00 85 23 100 04/18/23 11:50 87 04/18/23 11:40 92 H 04/18/23 11:30 91 H 18 96 04/18/23 11:23 98 H 21 99 04/18/23 14:00 86 17 96 04/18/23 14:15 17 129/64 96 04/18/23 13:00 85 06/27/23 12:34 89 24 165/77 H 97 04/18/23 11:55 85 99 04/18/23 11:22 36.6 C 92 H 23 141/94 H 97 O2 Del Method 04/18/23 14:52 Room Air 04/18/23 14:10 04/18/23 14:01 04/18/23 14:01 04/18/23 14:00 04/18/23 13:50 04/18/23 13:40 04/18/23 13:30 04/18/23 13:20 04/18/23 13:10 04/18/23 13:00 04/18/23 13:00 04/18/23 12:50 04/18/23 12:40 04/18/23 12:35 04/18/23 12:35 04/18/23 12:30 04/18/23 12:27 04/18/23 12:10 04/18/23 12:00 04/18/23 11:50 04/18/23 11:40 04/18/23 11:30 04/18/23 11:23 04/18/23 14:00 Room Air 04/18/23 14:15 04/18/23 13:00 04/18/23 12:34 Room Air 04/18/23 11:55 Nebulizer 04/18/23 11:22 Room Air Critical Care Results & Data Vital Signs (Past 12 Hours) Vital Signs Temp Pulse Pulse Resp BP BP Pulse Ox 04/18/23 14:52 86 24 129/64 95 04/18/23 14:10 84 25 H 93 04/18/23 14:01 85 18 94 04/18/23 14:01 129/64 04/18/23 14:00 85 23 95 04/18/23 13:50 86 17 97 04/18/23 13:40 87 17 97 04/18/23 13:30 88 16 97 04/18/23 13:20 88 19 95 04/18/23 13:10 86 15 97 04/18/23 13:00 86 16 96 04/18/23 13:00 168/93 H 04/18/23 12:50 86 25 H 98 04/18/23 12:40 88 17 94 04/18/23 12:35 165/77 H 04/18/23 12:35 89 18 04/18/23 12:30 87 19 04/18/23 12:27 93 H 25 H 04/18/23 12:10 88 25 H 98 04/18/23 12:00 85 23 100 04/18/23 11:50 87 04/18/23 11:40 92 H 04/18/23 11:30 91 H 18 96 04/18/23 11:23 98 H 21 99 04/18/23 14:00 86 17 96 04/18/23 14:15 17 129/64 96 04/18/23 13:00 85 04/18/23 12:34 89 24 165/77 H 97 04/18/23 11:55 85 99 04/18/23 11:22 36.6 C 92 H 23 141/94 H 97 O2 Del Method 04/18/23 14:52 Room Air 04/18/23 14:10 04/18/23 14:01 04/18/23 14:01 04/18/23 14:00 04/18/23 13:50 04/18/23 13:40 04/18/23 13:30 04/18/23 13:20 04/18/23 13:10 04/18/23 13:00 04/18/23 13:00 04/18/23 12:50 04/18/23 12:40 04/18/23 12:35 04/18/23 12:35 04/18/23 12:30 04/18/23 12:27 04/18/23 12:10 04/18/23 12:00 04/18/23 11:50 04/18/23 11:40 04/18/23 11:30 04/18/23 11:23 04/18/23 14:00 Room Air 04/18/23 14:15 04/18/23 13:00 04/18/23 12:34 Room Air 04/18/23 11:55 Nebulizer 04/18/23 11:22 Room Air Lab & Micro Results (Past 24 Hours) RBC 4.47 M/uL (4.20-5.40) 04/18/23 WBC 8.88 K/ul (4.8-10.8) 04/18/23 Hgb 13.3 g/dl (12.0-16.0) 04/18/23 Hct 40.9 % (37.0-47.0) 04/18/23 MCV 91.5 fL (80.0-100.0) 04/18/23 MCH 29.8 pg (25.0-34.0) 04/18/23 MCHC 32.5 g/dL (32.0-36.0) 04/18/23 RDW Standard Deviation 50.2 fL (36.4-46.3) H 04/18/23 RDW Coefficient of Variation 14.9 % (11.5-14.5) H 04/18/23 Plt Count 314 K/uL (130-400) 04/18/23 MPV 11.5 fL (9.4-12.4) 04/18/23 Neutrophils (%) (Auto) 54.6 % 04/18/23 Lymphocytes (%) (Auto) 38.5 % 04/18/23 Monocytes # (Auto) 0.48 K/uL (0.11-0.59) 04/18/23 Eosinophils # (Auto) 0.10 K/uL (0-0.50) 04/18/23 Immature Granulocyte % (Auto) 0.2 % 04/18/23 Neutrophils # (Auto) 4.84 K/uL (1.40-6.50) 04/18/23 Lymphocytes # (Auto) 3.42 K/uL (1.2-3.4) H 04/18/23 Monocytes # (Auto) 0.48 K/uL (0.11-0.59) 04/18/23 Eosinophils # (Auto) 0.10 K/uL (0-0.50) 04/18/23 Basophils # (Auto) 0.02 K/uL (0-0.2) 04/18/23 Immature Granulocyte # (Auto) 0.02 K/uL (0.01-0.20) 3 Na 139 mmol/L (136-145) 04/18/23 K 3.5 mmol/L (3.5-5.1) 04/18/23 Cl 103 mmol/L (98-107) 04/18/23 CO2 26 mmol/L (21-32) 04/18/23 Anion Gap 10 (3-11) 04/18/23 BUN 13 mg/dl (6-23) 04/18/23 Creatinine 0.90 mg/dl (0.6-1.2) 04/18/23 Estimated GFR ( Amer) 81.7 ml/min 04/18/23 Estimated GFR (Non-Af Amer) 70.5 ml/min 04/18/23 BUN/Creatinine Ratio 14.4 (10-20) 04/18/23 Glu 136 mg/dl (70-99(Fasting)) H 04/18/23 Ca 9.6 mg/dl (8.6-10.3) 04/18/23 Mg 1.6 mg/dl (1.7-2.4) L 04/18/23 12:03 Calcium Level 9.6 mg/dl (8.6-10.3) 04/18/23 12:03 Prothromb Time International Ratio 2.2 (0.9-1.1) H 04/18/23 12 :03 Venous Blood pH 7.50 (7.36-7.41) H 04/18/23 12:15 Venous Blood Partial Pressure CO2 39 mmHg (38-50) 04/18/23 12:1 5 Venous Blood Partial Pressure O2 46 mmHg 04/18/23 12:15 Venous Blood HCO3 30 mmol/L 04/18/23 12:15 Venous Blood Base Excess 6.7 mEq/L 04/18/23 12:15 Venous Blood Oxygen Saturation 78.2 % 04/18/23 12:15 Arterial Blood pH 7.49 (7.35-7.45) H 04/18/23 15:39 Arterial Blood Partial Pressure CO2 37 mmHg (35-46) 04/18/23 15 :39 Arterial Blood Partial Pressure O2 122 mmHg (80-95) H 04/18/23 15:39 Arterial Blood HCO3 28 mmol/L (19-24) H 04/18/23 15:39 Arterial Blood Base Excess 4.7 mEq/L (-9-1.8) H 04/18/23 15:39 Arterial Blood Oxygen Saturation 99.0 % (90-95) H 04/18/23 15:3 9 Blood Gas Oxygen Given 6L 04/18/23 15:39 Luis Test POS (Pos) 04/18/23 15:39 Diagnostic Findings (Past 24 Hours) Chest X-Ray 04/18/23 11:47 TWO VIEW CHEST CLINICAL HISTORY: Cough. FINDINGS: PA and lateral chest radiographs are compared to study dated 02/22/2023. The patient is status post midline sternotomy and cardiac valve surgery. The heart is mildly enlarged. The pulmonary vasculature is noncongested. Chronic interstitial thickening is similar to previous. There is mild bibasilar scarring/atelectasis. The lungs and pleural spaces are otherwise clear. There is no pneumothorax. The skeletal structures are osteopenic. The bony thorax appears intact. IMPRESSION: Cardiomegaly with no active disease in the chest. ACT 112: Negative or not required by law. Electronically signed by: Marin De La Rosa M.D. 04/18/2023 12:35 PM I & O Totals 24 Hours 04/17/23 04/18/23 04/19/23 06:59 06:59 06:59 Intake Total 100 / 100 Balance 100 / 100 Cumulative 04/18/23 10:57 thru 04/18/23 15:14 Intake Total 100 Balance 100 RT Ventilator Mngmt (Last Documented) Ventilator Ordered Settings Respiratory Rate 24 04/18/23 14:52 Ventilator - PT Measurements Respiratory Rate 24 PG Care Time/CCT Total # of Minutes Spent Total Time Spent with Patient: Total time spent is greater than 50% in coordination of care (as documented) at patient's floor/unit and/or counseling patient: Coding Level of Care Code 49175 OFFICE CONSULT LVL M Diagnoses Parainfluenza infection B34.8 Asthma exacerbation with COPD (chronic obstructive pulmonary disease) J44.1; J45.901
[2023-04-18 15:54] LABS: Base Excess ABG 4.7 mEq/L (-9-1.8); HCO3 ABG 28 mmol/L (19-24); PCO2 ABG 37 mmHg (35-46); PO2 ABG 122 mmHg (80-95); pH ABG 7.49 (7.35-7.45)
[2023-04-18 16:10] LABS: Allen Test POS (Pos)
--- NOTE | 2023-04-18 16:42 | CT Scan Report ---
CT SCAN OF THE CHEST WITHOUT IV CONTRAST CLINICAL HISTORY: Respiratory distress. COMPARISON STUDY: Chest x-ray dated 04/18/2023. Chest CT dated 12/14/2022. TECHNIQUE: CT scan of the thorax was performed from the thoracic inlet to the upper abdomen. Images are reviewed in the axial, sagittal, and coronal planes. IV contrast was not administered for this ex amination as per the referring clinician. A dose lowering technique was utilized adhering to the sonya dk of BONITA. CT DOSE: 806.44 mGy.cm FINDINGS: Thyroid: Imaged portions of the thyroid gland are normal in size and attenuation. A 1.7 cm low-attenu ation nodule is seen in the left lobe. Thoracic aorta: There is moderate atherosclerotic calcification of the thoracic aorta, which is zbigniew l in caliber and demonstrates standard 3-vessel arch anatomy. Heart: The patient is status post midline sternotomy. There is evidence of previous mitral valve surg sravanthi. The heart is top normal in size and without pericardial effusion. Lungs and pleural spaces: There is moderate emphysema. Scarring/atelectasis is seen at both lung base s. Subpleural reticulation is seen throughout both lungs. No airspace consolidation or pleural effusi on is identified. The trachea and central airways are clear. Mild tree-in-bud opacities are seen in t he left lower lobe and there is diffuse peribronchial thickening. A 2 mm pleural-based nodule in the right upper lobe on image #73 is unchanged. Mediastinum: There is no mediastinal lymphadenopathy. Mary Jo: Not well assessed without IV contrast. Axillae: There is no axillary lymphadenopathy. Upper abdomen: Partially visualized upper abdominal viscera is within normal limits. Skeletal structures: The skeletal structures are osteopenic. Degenerative change is noted in the thor acic spine. No lytic or blastic bony lesions are seen. IMPRESSION: 1. There are tree in bud airspace opacities in the left lower lobe with associated diffuse peribronch ial thickening. This is likely on an infectious/inflammatory basis. Clinical correlation will be requ ired. A follow-up chest CT in 3-6 months time is recommended to document complete resolution. 2. There is no lobar consolidation or pleural effusion. 3. Mild emphysema. 4. A 1.7 cm low-attenuation nodule is seen in the left lobe of the thyroid gland. If not previously p erformed, a nonemergent thyroid ultrasound is recommended in follow-up. 5. Additional findings as above. ACT 112: Negative or not required by law. Electronically signed by: Marin De La Rosa M.D. 04/18/2023 4:40 PM
[2023-04-18] MEDS ORDERED: WARFARIN SOD 5 MG TAB PO SCH (17:08)
[2023-04-18] MEDS ORDERED: INSULIN HUMAN REGULAR PER UNIT 10 UNITS in SYRINGE 0 ML IV STA (17:39)
[2023-04-18] MEDS ORDERED: INSULIN HUMAN REGULAR PER UNIT 10 UNITS in SYRINGE 9.9 ML IV STA (17:53)
[2023-04-18] MEDS: WARFARIN SOD 7.5 MG TAB PO SCH (18:28)
[2023-04-18] MEDS ORDERED: ONDANSETRON 2 MG OD TAB PO STA (19:14)
--- NOTE | 2023-04-18 19:55 | Emergency Department Note ---
History of Present Illness General Chief Complaint: Shortness of Breath/Dyspnea Stated Complaint: SOB, COUGH Time Seen by Provider: 04/18/23 11:39 History of Present Illness Provider Complaint: shortness of breath, cough and "asthma attack" Onset (ago): week(s) (1) Severity: severe Consistency/Duration: + progressively worsening Relieved By: + bronchodilators Exacerbated By: + exertion and + coughing Context: + recent travel (Recently on a cruise) Known history of: COPD, asthma and PE Associated symptoms: + chest pain, + pain with inspiration, + cough, + wheezing, + sputum production and + chest congestion; no hemoptysis, no nausea/vomiting, no abdominal pain or no rash Treatment prior to arrival: bronchodilator and other (Solu-Medrol 125 mg via EMS) Home Medications Medication Instructions Recorded Confirmed Type nicotine 21 mg/24 hr daily 21 mg transdermal QAM #30 ea 01/26/22 04/18/23 Rx transdermal patch (Nicoderm CQ) albuterol sulfate 90 mcg/actuation 2 puff inhalation Q6 PRN Shortness 05/03/22 04/18/23 Rx aerosol inhaler Of Breath Or Wheezing #18 grams ipratropium bromide 17 2 puff inhalation TID #12.9 grams 05/03/22 04/18/23 Rx mcg/actuation HFA aerosol inhaler (Atrovent HFA) hydrocortisone 1 %-pramoxine 1 % 1 applic VT BID PRN hemorrhoids 07/18/22 04/18/23 Rx rectal foam (Proctofoam HC) #10 grams losartan 25 mg tablet 25 mg PO QAM #60 tabs 07/18/22 04/18/23 Rx Bedside Commode #1 ea 08/04/22 04/18/23 Rx Hospital Bed Homecare #1 ea 08/12/22 04/18/23 Rx atorvastatin 40 mg tablet 40 mg PO QPM 09/02/22 04/18/23 History diclofenac sodium 1 % topical gel 4 g topical QID PRN Pain 09/02/22 04/18/23 History (Arthritis Pain (diclofenac)) metoprolol succinate 25 mg 25 mg PO QAM 09/23/22 04/18/23 History tablet,extended release 24 hr fluticasone furoate 100 1 inh inhalation DAILY 09/24/22 04/18/23 History mcg-vilanterol 25 mcg/dose inhalation powder (Breo Ellipta) pantoprazole 40 mg tablet,delayed 40 mg PO AMHS 09/24/22 04/18/23 History release mupirocin 2 % topical ointment 1 applic topical TID #15 grams 09/25/22 04/18/23 Rx metformin 750 mg tablet,extended 750 mg PO TID #90 tabs 09/26/22 04/18/23 Rx release 24 hr furosemide 40 mg tablet 80 mg PO QAM 11/01/22 04/18/23 History nitroglycerin 0.4 mg sublingual 0.4 mg sublingual Q5M PRN Chest 11/02/22 04/18/23 Rx tablet Pain #30 tabs potassium chloride 10 mEq 20 meq PO DAILY 30 days #120 caps 11/02/22 04/18/23 Rx capsule,extended release pregabalin 50 mg capsule 50 mg PO TID #90 caps 01/03/23 04/18/23 Rx ipratropium 0.5 mg-albuterol 3 mg 3 ml NEB Q6H PRN 01/22/23 04/18/23 Rx (2.5 mg base)/3 mL nebulization wheezing/SOB/cough #180 mL soln lidocaine 5 % topical patch 1 patch topical DAILY #30 ea 01/22/23 04/18/23 Rx oxycodone 5 mg tablet 5 mg PO TID PRN pain #15 tabs 01/22/23 04/18/23 Rx aspirin 81 mg tablet,delayed 81 mg PO DAILY 03/09/23 04/18/23 History release (Ecotrin Low Strength) chlorhexidine gluconate 0.12 % 15 ml buccal BID #118 mL 03/13/23 04/18/23 Rx mouthwash cyclobenzaprine 5 mg tablet 5 mg PO TID PRN muscle spasm #30 03/13/23 04/18/23 Rx tabs dulaglutide 0.75 mg/0.5 mL 0.75 mg (0.5 mL) subcut WK #2 mL 03/13/23 04/18/23 Rx subcutaneous pen injector (Trulicity) warfarin 5 mg tablet See Rx Instructions .Route .COMPLEX 03/23/23 04/18/23 History Allergies Allergy/AdvReac Type Severity Reaction Status Date / Time No Known Allergies Allergy Verified 04/18/23 10:01 Past Med/Surg History Medical History Acute chest pain Acute severe exacerbation of intrinsic asthma Asthma exacerbation in COPD Asthma-COPD overlap syndrome Atrial fibrillation Bronchospasm Chest pain Chest pain CHF exacerbation Chronic diastolic congestive heart failure Chronic low back pain CSF leak hx Degeneration of cervical intervertebral disc Diabetes mellitus, type 2 oral medication DVT prophylaxis Dyspnea on exertion so severe pt is wheelchair bound (per [facility] record) Elevated troponin I level External hemorrhoids GERD (gastroesophageal reflux disease) Hemiplegic migraine History of COVID-19 diagnosed 2yrs ago---mild symptoms, no symptoms now History of pulmonary embolism on xarelto Hoarseness of voice Hx of coronary artery disease Hyperglycemia due to type 2 diabetes mellitus Mitral valve insufficiency Obesity SMITA on CPAP Postoperative keloid scar sternal Sternal pain Urinary incontinence Vertebral artery stenosis Vertigo Vitamin D deficiency Surgical History Facial fracture (2014) WITH RECONSTRUCTION History of bilateral tubal ligation History of cardiac cath X2 STENTS - (~2010, IN [place], [place]). NO STENTS - ([facility] @ ~2014) No stents ([facility] 05/11/2022) - [place]s [facility] [place] [facility] [place] of colonoscopy History of esophagogastroduodenoscopy (EGD) History of heart artery stent X2 STENTS (2010) UNSURE OF KIND. NO STENT CARDS PER PT. History of hemorrhoidectomy (~2017) @ [facility] History of mandibular surgery History of transesophageal echocardiography (GEORGETTE) performed 06/21/22 @ [facility]---per report pt has severe mitral valve insufficiency S/P left knee arthroscopy S/P MVR (mitral valve repair) S/p tibial fracture open treatment of Fx with plate/screws, Left leg Status post right foot surgery Family History Mother Breast cancer, Onset Age: 64 Type 2 diabetes mellitus Father Diabetes Coronary heart disease Type 2 diabetes mellitus Myocardial infarction, Onset Age: 52 Family/Other Hypertension sibling Denies family history of Ovarian cancer Social History Smoking Status: Former smoker Tobacco Type: Cigarettes Age Started Using Tobacco: 13; Age Quit Using Tobacco: 56; packs per day: 0.5; Cigarettes Per Day: 1/2 pack per day; Second Hand Exposure: No; Do You Dip or Chew Tobacco: No; Hx Alcohol Use: No Hx Substance Use: No Preferred Language: Sinhala Communication Ability: Effective Visual Impairment: No Limitations Hearing Ability: Normal [employer] Required: No Beliefs That Will Affect Care: None marital status: Current Living Situation: Spouse Current Living Situation Comment: Home with current occupational status: disabled How many Children do You have: 5 Feels Safe at Home: Yes Childhood Exposure to Second-Hand Smoke: No Diet: low salt caffeine: Yes (1/2 cup of coffee a day) during the past year weight has: remained stable Dental Care, Regularly: No Physical Activity Frequency: 1-2 Times per Week Seatbelt Use: always Sunscreen Use: No Assistive Devices: Cane, CPAP, Glasses, Nebulizer and Walker Physical Exam Vital Signs: Vital Signs - 24 hr 04/18/23 11:22 04/18/23 11:55 04/18/23 12:34 Temperature 36.6 C Temperature Source Oral Pulse Rate 92 H 85 Pulse Rate [Apical ] 89 Pulse Rate from Sp O2 Sensor Pulse Rhythm Regular Respiratory Rate 23 24 Respiratory Effort / Characteristics Accessory Muscle U se Respiratory Depth Shallow Blood Pressure 141/94 H Blood Pressure [Ri ght Arm] 165/77 H Blood Pressure Nicole n 109 Blood Pressure Nicole n [Right Arm] 106 Pulse Oximetry 97 99 97 Oxygen Delivery Me thod Room Air Nebulizer Room Air Sepsis Recent Feve r Within 48 Hours No Sepsis New/Unexpla ined Change in Men sasha Status No Sepsis Action Take n by Nursing No Action Required 04/18/23 13:00 04/18/23 14:00 04/18/23 11:23 Temperature Temperature Source Pulse Rate 85 98 H Pulse Rate [Apical ] 86 Pulse Rate from Sp O2 Sensor 98 H Pulse Rhythm Respiratory Rate 17 21 Respiratory Effort / Characteristics Respiratory Depth Blood Pressure Blood Pressure [Ri ght Arm] Blood Pressure Nicole n Blood Pressure Nicole n [Right Arm] Pulse Oximetry 96 99 Oxygen Delivery Me thod Room Air Sepsis Recent Feve r Within 48 Hours Sepsis New/Unexpla ined Change in Men sasha Status Sepsis Action Take n by Nursing 04/18/23 11:30 04/18/23 11:40 04/18/23 11:50 Temperature Temperature Source Pulse Rate 91 H 92 H 87 Pulse Rate [Apical ] Pulse Rate from Sp O2 Sensor 93 H Pulse Rhythm Respiratory Rate 18 Respiratory Effort / Characteristics Respiratory Depth Blood Pressure Blood Pressure [Ri ght Arm] Blood Pressure Nicole n Blood Pressure Nicole n [Right Arm] Pulse Oximetry 96 Oxygen Delivery Me thod Sepsis Recent Feve r Within 48 Hours Sepsis New/Unexpla ined Change in Men sasha Status Sepsis Action Take n by Nursing 04/18/23 12:00 04/18/23 12:10 04/18/23 12:27 Temperature Temperature Source Pulse Rate 85 88 93 H Pulse Rate [Apical ] Pulse Rate from Sp O2 Sensor 85 88 Pulse Rhythm Respiratory Rate 23 25 H 25 H Respiratory Effort / Characteristics Respiratory Depth Blood Pressure Blood Pressure [Ri ght Arm] Blood Pressure Nicole n Blood Pressure Nicole n [Right Arm] Pulse Oximetry 100 98 Oxygen Delivery Me thod Sepsis Recent Feve r Within 48 Hours Sepsis New/Unexpla ined Change in Men sasha Status Sepsis Action Take n by Nursing 04/18/23 12:30 04/18/23 12:35 04/18/23 12:35 Temperature Temperature Source Pulse Rate 87 89 Pulse Rate [Apical ] Pulse Rate from Sp O2 Sensor Pulse Rhythm Respiratory Rate 19 18 Respiratory Effort / Characteristics Respiratory Depth Blood Pressure 165/77 H Blood Pressure [Ri ght Arm] Blood Pressure Nicole n 106 Blood Pressure Nicole n [Right Arm] Pulse Oximetry Oxygen Delivery Me thod Sepsis Recent Feve r Within 48 Hours Sepsis New/Unexpla ined Change in Men sasha Status Sepsis Action Take n by Nursing 04/18/23 12:40 04/18/23 12:50 04/18/23 13:00 Temperature Temperature Source Pulse Rate 88 86 Pulse Rate [Apical ] Pulse Rate from Sp O2 Sensor 88 84 Pulse Rhythm Respiratory Rate 17 25 H Respiratory Effort / Characteristics Respiratory Depth Blood Pressure 168/93 H Blood Pressure [Ri ght Arm] Blood Pressure Nicole n 118 Blood Pressure Nicole n [Right Arm] Pulse Oximetry 94 98 Oxygen Delivery Me thod Sepsis Recent Feve r Within 48 Hours Sepsis New/Unexpla ined Change in Men sasha Status Sepsis Action Take n by Nursing 04/18/23 13:00 04/18/23 13:10 04/18/23 13:20 Temperature Temperature Source Pulse Rate 86 86 88 Pulse Rate [Apical ] Pulse Rate from Sp O2 Sensor 90 86 88 Pulse Rhythm Respiratory Rate 16 15 19 Respiratory Effort / Characteristics Respiratory Depth Blood Pressure Blood Pressure [Ri ght Arm] Blood Pressure Nicole n Blood Pressure Nicole n [Right Arm] Pulse Oximetry 96 97 95 Oxygen Delivery Me thod Sepsis Recent Feve r Within 48 Hours Sepsis New/Unexpla ined Change in Men sasha Status Sepsis Action Take n by Nursing 04/18/23 13:30 04/18/23 13:40 04/18/23 13:50 Temperature Temperature Source Pulse Rate 88 87 86 Pulse Rate [Apical ] Pulse Rate from Sp O2 Sensor 88 87 87 Pulse Rhythm Respiratory Rate 16 17 17 Respiratory Effort / Characteristics Respiratory Depth Blood Pressure Blood Pressure [Ri ght Arm] Blood Pressure Nicole n Blood Pressure Nicole n [Right Arm] Pulse Oximetry 97 97 97 Oxygen Delivery Me thod Sepsis Recent Feve r Within 48 Hours Sepsis New/Unexpla ined Change in Men sasha Status Sepsis Action Take n by Nursing 04/18/23 14:00 04/18/23 14:01 04/18/23 14:01 Temperature Temperature Source Pulse Rate 85 85 Pulse Rate [Apical ] Pulse Rate from Sp O2 Sensor 85 85 Pulse Rhythm Respiratory Rate 23 18 Respiratory Effort / Characteristics Respiratory Depth Blood Pressure 129/64 Blood Pressure [Ri ght Arm] Blood Pressure Nicole n 85 Blood Pressure Nicole n [Right Arm] Pulse Oximetry 95 94 Oxygen Delivery Me thod Sepsis Recent Feve r Within 48 Hours Sepsis New/Unexpla ined Change in Men sasha Status Sepsis Action Take n by Nursing Physical Exam: Physical Exam GENERAL: oriented to person, place, and time. appears well-developed and well- nourished. HENT: Exam performed. - Head: Normocephalic and atraumatic. EYES: Conjunctivae and EOM are normal. Right eye exhibits no discharge. Left eye exhibits no discharge. No scleral icterus. NECK: Normal range of motion. Neck supple. No JVD present. CV: Normal rate, regular rhythm, normal heart sounds and intact distal pulses. There is no peripheral edema. Palpable radial pulses bue. PULM/CHEST: Rhonchi bilaterally with diffuse expiratory wheezes bilaterally. ABD: The abdomen is soft. There is no tenderness. NEURO: Motor and sensation grossly intact. SKIN: Skin is warm and dry. He is not diaphoretic. PSYCH: normal mood and affect. Behavior is normal. Judgment and thought content normal. Course Course 1139: The patient was evaluated in room A4. A complete history and physical exam was performed Cardiac monitoring: An order was placed for continuous cardiac monitoring. The monitor shows a rate of 90 with sinus rhythm interpreted by me 1340: Vital signs stable. Status post 2 additional DuoNebs patient is still having wheezing. Patient was having chest pain which improved with sublingual nitroglycerin. Patient's INR is therapeutic. White count is normal. VBG is within normal limits.Imaging shows no acute infiltrate. Patient BioFire is positive for parainfluenza. Given the patient's long history of obstructive lung disease we will also give the patient azithromycin 500 mg. Given that the patient was recently on a cruise ship and when her symptoms developed she will also be tested for Legionella. [facility] team Dr. Alejandrina shah. Administered Medications Guaifenesin/Codeine Phosphate (Guaifenesin/Codeine 200mg/20mg 10ml Udc) 10 ml PO Q6H PRN PRN Reason: Cough Stop: 05/18/23 18:59 Last Admin: 04/18/23 18:32 Dose: 10 ml Documented By: VICENTE Warfarin Sodium (Warfarin Sod 7.5 Mg Tab) 7.5 mg PO [id number]@1600 KARLA Stop: 05/18/23 15:59 Last Admin: 04/18/23 18:28 Dose: 7.5 mg Documented By: VICENTE Discontinued Medications Albuterol (Albut/Ipratrop 3mg/0.5mg Neb 3 Ml Vial) 3 ml NEB NOW STA; Protocol Stop: 04/18/23 11:48 Last Admin: 04/18/23 11:53 Dose: 3 ml Documented By: BINA Albuterol (Albut/Ipratrop 3mg/0.5mg Neb 3 Ml Vial) 3 ml NEB NOW STA; Protocol Stop: 04/18/23 11:49 Last Admin: 04/18/23 11:53 Dose: 3 ml Documented By: BINA Albuterol (Albut/Ipratrop 3mg/0.5mg Neb 3 Ml Vial) 12 ml NEB ONE ONE; Protocol Stop: 04/18/23 14:44 Last Admin: 04/18/23 15:23 Dose: 12 ml Documented By: BINA Aspirin (Aspirin 81 Mg Chew) 324 mg PO NOW STA Stop: 04/18/23 12:12 Last Admin: 04/18/23 12:35 Dose: 324 mg Documented By: BINA Guaifenesin/Codeine Phosphate (Guaifenesin/Codeine 100mg/10mg 5ml Udc) 10 ml PO NOW STA Stop: 04/18/23 14:21 Last Admin: 04/18/23 14:28 Dose: 10 ml Documented By: BNIA Azithromycin 500 mg/ Dextrose 255 mls @ 127.5 mls/hr IV NOW STA Stop: 04/18/23 15:36 Last Infusion: 04/18/23 17:39 Dose: 0 mls/hr Documented By: Admin: 04/18/23 14:14 Dose: 127.5 mls/hr Documented By: BINA Magnesium Sulfate/Dextrose (Magnesium Sulfate / D5w) 1 gm in 100 mls @ 600 mls/hr IV Q10M KARLA Stop: 04/18/23 14:26 Last Infusion: 04/18/23 16:18 Dose: 0 mls/hr Documented By: Admin: 04/18/23 15:23 Dose: 600 mls/hr Documented By: Infusion: 04/18/23 15:14 Dose: 0 mls/hr Documented By: Admin: 04/18/23 14:28 Dose: 600 mls/hr Documented By: BINA Insulin Human Regular 10 units (/ Syringe) 10 mls @ 0 mls/hr IV ONE STA Stop: 04/18/23 17:54 Last Admin: 04/18/23 18:28 Dose: 10 mls/hr Documented By: VICENTE Co-signed By: ZACH Insulin Aspart (Insulin Aspart Per Unit Charge) 0 units SC Q4H [facility] Stop: 05/18/23 15:14 Last Admin: 04/18/23 18:26 Dose: 7 units Documented By: VICENTE Co-signed By: ZACH Mometasone Furoate (Mometasone Furoate 14 Puff/1 Inhaler) 1 puffs INH Q12H [facility] Stop: 05/18/23 14:44 Last Admin: 04/18/23 17:39 Dose: Not Given Documented By: VICENTE Warfarin Sodium (Warfarin Sod 7.5 Mg Tab) 7.5 mg PO NOW ONE Stop: 04/18/23 14:49 Last Admin: 04/18/23 18:32 Dose: Not Given Documented By: VICENTE Medical Decision Making Laboratory Data Attestation: I reviewed the patient's lab results. 04/18/23 12:03 04/18/23 12:03 Lab Results 04/18/23 04/18/23 04/18/23 Range/Units 12:03 12:03 12:03 WBC 8.88 (4.8-10.8) K/ul RBC 4.47 (4.20-5.40) M/uL Hgb 13.3 (12.0-16.0) g/dl Hct 40.9 (37.0-47.0) % MCV 91.5 (80.0-100.0) fL MCH 29.8 (25.0-34.0) pg MCHC 32.5 (32.0-36.0) g/dL RDW Std Deviation 50.2 H (36.4-46.3) fL RDW Coeff of Majo 14.9 H (11.5-14.5) % Plt Count 314 (130-400) K/uL MPV 11.5 (9.4-12.4) fL Immature Gran % (Auto) 0.2 % Neut % (Auto) 54.6 % Lymph % (Auto) 38.5 % [place] % (Auto) 5.4 % Eos % (Auto) 1.1 % Baso % (Auto) 0.2 % Neut # (Auto) 4.84 (1.40-6.50) K/uL Lymph # (Auto) 3.42 H (1.2-3.4) K/uL [place] # (Auto) 0.48 (0.11-0.59) K/uL Eos # (Auto) 0.10 (0-0.50) K/uL Baso # (Auto) 0.02 (0-0.2) K/uL Immature Gran # (Auto) 0.02 (0.01-0.20) K/uL PT 22.8 H (9.0-12.0) Seconds INR 2.2 H (0.9-1.1) APTT 33.9 H (21.0-31.0) Seconds PTT Ratio 1.2 VBG pH (7.36-7.41) VBG pCO2 (38-50) mmHg VBG pO2 mmHg VBG HCO3 mmol/L VBG O2 Saturation % VBG Base Excess mEq/L Sodium 139 (136-145) mmol/L Potassium 3.5 (3.5-5.1) mmol/L Chloride 103 (98-107) mmol/L Carbon Dioxide 26 (21-32) mmol/L Anion Gap 10 (3-11) BUN 13 (6-23) mg/dl Creatinine 0.90 (0.6-1.2) mg/dl Est Cr Clr Drug Dosing 85.2 ml/min Est GFR ( Amer) 81.7 ml/min Est GFR (Non-Af Amer) 70.5 ml/min BUN/Creatinine Ratio 14.4 (10-20) Glucose 136 H (70-99(Fasting)) mg/dl Calcium 9.6 (8.6-10.3) mg/dl Magnesium 1.6 L (1.7-2.4) mg/dl Troponin I High Sens 18.9 H (0-14) pg/ml Adenovirus (PCR) (NotDetected) B. pertussis DNA (PCR) (NotDetected) B.parapertussis DNA PCR (NotDetected) C. pneumoniae DNA (PCR) (NotDetected) Coronavirus OC43 (PCR) (NotDetected) Coronavirus HKU1 (PCR) (NotDetected) Coronavirus 229E (PCR) (NotDetected) SARS-CoV-2 (PCR) (NotDetected) Coronavirus NL63 (PCR) (NotDetected) Human Metapneumovir PCR (NotDetected) Influenza Type A (PCR) (NotDetected) Influenza Type B (PCR) (NotDetected) M. pneumoniae (PCR) (NotDetected) Parainfluenza 1 (PCR) (NotDetected) Parainfluenza 2 (PCR) (NotDetected) Parainfluenza 3 (PCR) (NotDetected) Parainfluenza 4 (PCR) (NotDetected) RSV (PCR) (NotDetected) Entero/Rhino (PCR) (NotDetected) 04/18/23 04/18/23 Range/Units 12:15 12:15 WBC (4.8-10.8) K/ul RBC (4.20-5.40) M/uL Hgb (12.0-16.0) g/dl Hct (37.0-47.0) % MCV (80.0-100.0) fL MCH (25.0-34.0) pg MCHC (32.0-36.0) g/dL RDW Std Deviation (36.4-46.3) fL RDW Coeff of Majo (11.5-14.5) % Plt Count (130-400) K/uL MPV (9.4-12.4) fL Immature Gran % (Auto) % Neut % (Auto) % Lymph % (Auto) % [place] % (Auto) % Eos % (Auto) % Baso % (Auto) % Neut # (Auto) (1.40-6.50) K/uL Lymph # (Auto) (1.2-3.4) K/uL [place] # (Auto) (0.11-0.59) K/uL Eos # (Auto) (0-0.50) K/uL Baso # (Auto) (0-0.2) K/uL Immature Gran # (Auto) (0.01-0.20) K/uL PT (9.0-12.0) Seconds INR (0.9-1.1) APTT (21.0-31.0) Seconds PTT Ratio VBG pH 7.50 H (7.36-7.41) VBG pCO2 39 (38-50) mmHg VBG pO2 46 mmHg VBG HCO3 30 mmol/L VBG O2 Saturation 78.2 % VBG Base Excess 6.7 mEq/L Sodium (136-145) mmol/L Potassium (3.5-5.1) mmol/L Chloride (98-107) mmol/L Carbon Dioxide (21-32) mmol/L Anion Gap (3-11) BUN (6-23) mg/dl Creatinine (0.6-1.2) mg/dl Est Cr Clr Drug Dosing ml/min Est GFR ( Amer) ml/min Est GFR (Non-Af Amer) ml/min BUN/Creatinine Ratio (10-20) Glucose (70-99(Fasting)) mg/dl Calcium (8.6-10.3) mg/dl Magnesium (1.7-2.4) mg/dl Troponin I High Sens (0-14) pg/ml Adenovirus (PCR) Not Detected (NotDetected) B. pertussis DNA (PCR) Not Detected (NotDetected) B.parapertussis DNA PCR Not Detected (NotDetected) C. pneumoniae DNA (PCR) Not Detected (NotDetected) Coronavirus OC43 (PCR) Not Detected (NotDetected) Coronavirus HKU1 (PCR) Not Detected (NotDetected) Coronavirus 229E (PCR) Not Detected (NotDetected) SARS-CoV-2 (PCR) Not Detected (NotDetected) Coronavirus NL63 (PCR) Not Detected (NotDetected) Human Metapneumovir PCR Not Detected (NotDetected) Influenza Type A (PCR) Not Detected (NotDetected) Influenza Type B (PCR) Not Detected (NotDetected) M. pneumoniae (PCR) Not Detected (NotDetected) Parainfluenza 1 (PCR) Not Detected (NotDetected) Parainfluenza 2 (PCR) Not Detected (NotDetected) Parainfluenza 3 (PCR) DETECTED A* (NotDetected) Parainfluenza 4 (PCR) Not Detected (NotDetected) RSV (PCR) Not Detected (NotDetected) Entero/Rhino (PCR) Not Detected (NotDetected) Imaging Data Attestation: I personally reviewed and interpreted this imaging study as follows: My Impression: Chest x-ray negative. Airway clear. No pneumothorax. No consolidation. No cardiomegaly or cephalization.. No free air under the diaphragm. No fractures of the skeletal structures. Radiologist's Impression: TWO VIEW CHEST CLINICAL HISTORY: Cough. FINDINGS: PA and lateral chest radiographs are compared to study dated 02/22/2023. The patient is status post midline sternotomy and cardiac valve surgery. The heart is mildly enlarged. The pulmonary vasculature is noncongested. Chronic interstitial thickening is similar to previous. There is mild bibasilar scarring/atelectasis. The lungs and pleural spaces are otherwise clear. There is no pneumothorax. The skeletal structures are osteopenic. The bony thorax appears intact. IMPRESSION: Cardiomegaly with no active disease in the chest. ACT 112: Negative or not required by law. Electronically signed by: Marin De La Rosa M.D. 04/18/2023 12:35 PM Dictated:04/18/23 1234 Transcribed: 04/18/23 1234 ECG Data Attestation: I personally reviewed and interpreted this ECG as follows: Interpretation: Sinus rhythm with rate 93. VT 150 QRS 72 QTc 482. Left ventricular hypertrophy present. No ST elevation or ST depression. [facility] Narrative 1139: The patient was evaluated in room A4. A complete history and physical exam was performed Cardiac monitoring: An order was placed for continuous cardiac monitoring. The monitor shows a rate of 90 with sinus rhythm interpreted by me 1340: Vital signs stable. Status post 2 additional DuoNebs patient is still having wheezing. Patient was having chest pain which improved with sublingual nitroglycerin. Patient's INR is therapeutic. White count is normal. VBG is within normal limits.Imaging shows no acute infiltrate. Patient BioFire is positive for parainfluenza. Given the patient's long history of obstructive lung disease we will also give the patient azithromycin 500 mg. Given that the patient was recently [place] a cruise ship and when her symptoms developed she will also be tested for Legionella. Patient will be [facility] team Dr. Alejandrina shah. Impression & Plan Asthma-COPD overlap syndrome, Parainfluenza Discharge Plan Visit Data Chief Complaint: Shortness of Breath/Dyspnea Stated Complaint: SOB, COUGH ED Provider: Ghulam Ruiz Discharge Problem: Asthma-COPD overlap syndrome, Parainfluenza Patient Disposition: Admitted As Inpatient Discharge Instructions Interventions: ED Discharge Assessment Last Done: 04/18/23 16:19
[2023-04-18] MEDS: FORMOTEROL 20 MCG/2 ML VIAL NEB SCH (19:59)
[2023-04-18] MEDS: BUDESONIDE 0.5 MG/2 ML VIAL (PULMICORT) NEB SCH (19:59)
[2023-04-18] MEDS: INSULIN ASPART PER UNIT CHARGE SC SCH (20:21)
[2023-04-18] MEDS: LANTUS PER UNIT CHARGE SQ SCH (20:23)
[2023-04-18] MEDS: CHLORHEXIDINE GLUCONATE 0.12% 480 ML MT SCH (20:33)
[2023-04-18] MEDS: PANTOprazole 40 MG TAB PO SCH (20:34)
[2023-04-18] MEDS: BENZONATATE 100 MG CAPSULE PO SCH (20:34)
[2023-04-18] MEDS: ATORVASTATIN 40 MG TAB PO SCH (20:34)
[2023-04-18] MEDS: PREGABALIN 50 MG CAP PO SCH (20:34)
[2023-04-18] MEDS: DOXYCYCLINE HYCLATE 100 MG in DEXTROSE 5% 100 ML IV SCH (20:35)
[2023-04-18 20:37] LABS: HCO3 ABG 22 mmol/L (19-24); Oxygen Saturation ABG 99.1 % (90-95); PCO2 ABG 36 mmHg (35-46); PO2 ABG 138 mmHg (80-95)
[2023-04-18 20:39] LABS: Allen Test POS (Pos)
[2023-04-18] MEDS: ACETAMINOPHEN 325 MG TAB PO PRN (20:54)
[2023-04-18] MEDS ORDERED: LANTUS PER UNIT CHARGE SQ SCH (21:00)
[2023-04-18] MEDS ORDERED: FORMOTEROL 20 MCG/2 ML VIAL NEB SCH (21:00)
[2023-04-18] MEDS: CYCLOBENZAPRINE HCL 5 MG TAB PO PRN (21:03)
[2023-04-18] MEDS: ALBUT/IPRATROP 3MG/0.5MG NEB 3 ML VIAL NEB PRN (22:43)
[2023-04-19 00:51] LABS: Base Excess ABG 1.9 mEq/L (-9-1.8); HCO3 ABG 27 mmol/L (19-24); Oxygen Saturation ABG 95.1 % (90-95); PCO2 ABG 41 mmHg (35-46); PO2 ABG 76 mmHg (80-95); pH ABG 7.42 (7.35-7.45)
[2023-04-19 00:56] LABS: Allen Test Pos (Pos)
[2023-04-19] MEDS: ALBUT/IPRATROP 3MG/0.5MG NEB 3 ML VIAL NEB PRN (02:01)
[2023-04-19] MEDS: INSULIN ASPART PER UNIT CHARGE SC SCH ×4 (02:16→21:10)
[2023-04-19 04:40] LABS: HCO3 ABG 27 mmol/L (19-24); Oxygen Saturation ABG 97.7 % (90-95); PCO2 ABG 40 mmHg (35-46); PO2 ABG 84 mmHg (80-95); pH ABG 7.43 (7.35-7.45)
[2023-04-19 04:42] LABS: Allen Test Pos (Pos)
[2023-04-19 04:49] LABS: Basophils # (auto) 0.02 K/uL (0-0.2); Basophils % (auto) 0.1 %; Hemoglobin 11.6 g/dl (12.0-16.0); Immature Granulocytes % (auto) 0.7 %; Lymphocytes # (auto) 2.33 K/uL (1.2-3.4); Lymphocytes % (auto) 16.5 %; Mean Corpuscular Hemoglobin 29.8 pg (25.0-34.0); Mean Corpuscular Hgb Conc 32.2 g/dL (32.0-36.0); Mean Corpuscular Volume 92.5 fL (80.0-100.0); Mean Platelet Volume 11.3 fL (9.4-12.4); Neutrophils # (auto) 10.93 K/uL (1.40-6.50); Neutrophils % (auto) 77.7 %; Platelet Count 286 K/uL (130-400); RDW Coefficient of Variation 14.7 % (11.5-14.5); RDW Standard Deviation 49.9 fL (36.4-46.3); Red Blood Count 3.89 M/uL (4.20-5.40); White Blood Count 14.08 K/ul (4.8-10.8)
[2023-04-19 05:06] LABS: Albumin Globulin Ratio 1.1 (0.9-2); Albumin Level 3.7 gm/dl (3.4-5.0); BUN Creatinine Ratio 19.8 (10-20); Bilirubin,Total 0.3 mg/dl (0.2-1.0); Calcium 9.5 mg/dl (8.6-10.3); Creatinine Clr Calc Pharmacy 84.2 ml/min; Est GFR (African American) 80.6 ml/min; Est GFR (Non-African American) 69.5 ml/min; Globulin 3.3 gm/dl (2.5-4.0); Magnesium 2.2 mg/dl (1.7-2.4); Potassium 4.1 mmol/L (3.5-5.1)
[2023-04-19 05:18] LABS: INR 1.8 (0.9-1.1); Prothrombin Time 18.8 Seconds (9.0-12.0)
[2023-04-19] MEDS: BUDESONIDE 0.5 MG/2 ML VIAL (PULMICORT) NEB SCH ×2 (07:02→19:48)
[2023-04-19] MEDS: FORMOTEROL 20 MCG/2 ML VIAL NEB SCH ×2 (07:02→19:48)
[2023-04-19] MEDS: LANTUS PER UNIT CHARGE SQ SCH (08:12)
[2023-04-19] MEDS: BENZONATATE 100 MG CAPSULE PO SCH ×3 (08:17→21:32)
[2023-04-19] MEDS: PANTOprazole 40 MG TAB PO SCH ×2 (08:17→21:37)
[2023-04-19] MEDS: ASPIRIN 81 MG ECTAB PO SCH (08:17)
[2023-04-19] MEDS: METOPROLOL SUCC 25MG EXT REL TAB PO SCH (08:18)
[2023-04-19] MEDS: CHLORHEXIDINE GLUCONATE 0.12% 480 ML MT SCH ×2 (08:18→21:32)
[2023-04-19] MEDS: LOSARTAN POTASSIUM 25 MG TAB PO SCH (08:19)
[2023-04-19] MEDS: FUROSEMIDE 80 MG TAB PO SCH (08:19)
[2023-04-19] MEDS: NICOTINE 21 MG/24 HR TDSY TD SCH (08:19)
[2023-04-19] MEDS: POTASSIUM CHLORIDE CRTAB 20 MEQ TABCR PO SCH (08:19)
[2023-04-19] MEDS: DOXYCYCLINE HYCLATE 100 MG in DEXTROSE 5% 100 ML IV SCH (08:25)
[2023-04-19] MEDS: LIDOCAINE 5% 1 PATCH TD SCH (08:25)
[2023-04-19] MEDS: CYCLOBENZAPRINE HCL 5 MG TAB PO PRN ×2 (08:26→21:34)
[2023-04-19] MEDS: PREGABALIN 50 MG CAP PO SCH ×3 (08:35→21:32)
[2023-04-19] MEDS ORDERED: methylPREDNISolone 125 MG/2 ML VIAL IV SCH (09:00)
[2023-04-19] MEDS ORDERED: methylPREDNISolone 60 MG in SYRINGE 0 ML IV SCH (09:00)
[2023-04-19] MEDS ORDERED: FLUTICASONE/VILANTEROL 200/25MCG 14 PUFFS/INHALER INH SCH (09:00)
[2023-04-19] MEDS ORDERED: POTASSIUM CHLORIDE CRTAB 20 MEQ TABCR PO STA (09:03)
--- NOTE | 2023-04-19 13:11 | Pulmonology Progress Note ---
Date of Service April 19, 2023 Assessment & Plan (1) Parainfluenza infection: (2) Asthma exacerbation with COPD (chronic obstructive pulmonary disease): Plan Impression: 57-year-old female with severe cough and bronchospasm associated with parainfluenza infection. Recommendations: 1. Parainfluenza: No therapy available to treat this infection. Supportive care. Unclear if steroids are beneficial or harmful however given bronchospasm seems reasonable to continue. 2. Asthma exacerbation secondary to viral infection: Continue supportive management. Continue nebulized budesonide, Perforomist, and DuoNeb scheduled. Discontinue Breo. Additional cough suppression using Tessalon and codeine cough syrup. May consider gabapentin for neuromodulation of cough if sx persist al though patient already taking Lyrica. 3. Recommend the patient use CPAP nightly at 12 cm H2O. Pt can bring in her home machine to use if needed. 4. Management patient's other medical issues is deferred to the primary admitting service. We will continue to follow with you. Feel free to contact us with questions or concerns Admission and Anticipated Discharge Date Admission Date: April 18, 2023 Subjective Patient seen and examined. EMR reviewed. The patient initially was quite comfortable lying in a lateral decubitus position with no respiratory distress. Upon my entering the room she started coughing and exhibiting some rhonchorous breathing. Overall the patient states she is improved from yesterday. She did use her CPAP overnight and states that it was beneficial. Her cough remains nonproductive. She believes the nebulized therapies are beneficial. Review of Systems Review of Systems: All systems reviewed & are unremarkable except as noted in Subjective Physical Exam Constitutional: WD/WN, vitals as above Neck: trachea midline, no thyromegaly Respiratory: + cough; no respiratory distress, no labored breathing and not tachypneic Auscultation: + rhonchi and + wheezes; no crackles Cardiovascular: RRR, no murmur, no edema Gastrointestinal (Abdomen): normal bowel sounds, soft, nontender, no hepatosplenomegaly Musculoskeletal: Extremities: extremities normal to inspection Skin: no rashes, warm and dry Lymphatic: no cervical lymphadenopathy Results & Data Results & Data Vital Signs (Past 12 Hours) Vital Signs Temp Pulse Pulse Resp BP Pulse Ox O2 Del Method 04/19/23 12:21 36.8 C 77 18 133/73 96 Room Air 04/19/23 10:00 89 04/19/23 08:00 84 04/19/23 08:00 Room Air, CPAP 04/19/23 07:44 36.7 C 72 18 144/74 H 97 Nasal Cannula 04/19/23 07:02 81 18 94 Room Air 04/19/23 02:03 79 15 99 04/19/23 02:02 79 14 99 CPAP O2 Flow Rate 04/19/23 12:21 04/19/23 10:00 04/19/23 08:00 04/19/23 08:00 04/19/23 07:44 2 04/19/23 07:02 04/19/23 02:03 04/19/23 02:02 Laboratory Results 04/19/23 04:21 04/19/23 04:[address] SCAN OF THE CHEST WITHOUT IV CONTRAST 04/18/23 independently reviewed CLINICAL HISTORY: Respiratory distress. COMPARISON STUDY: Chest x-ray dated 04/18/2023. Chest CT dated 12/14/2022. TECHNIQUE: CT scan of the thorax was performed from the thoracic inlet to the upper abdomen. Images are reviewed in the axial, sagittal, and coronal planes. IV contrast was not administered for this examination as per the referring clinician. A dose lowering technique was utilized adhering to the principles of ALARA. CT DOSE: 806.44 mGy.cm FINDINGS: Thyroid: Imaged portions of the thyroid gland are normal in size and attenuation. A 1.7 cm low-attenuation nodule is seen in the left lobe. Thoracic aorta: There is moderate atherosclerotic calcification of the thoracic aorta, which is normal in caliber and demonstrates standard 3-vessel arch anatomy. Heart: The patient is status post midline sternotomy. There is evidence of previous mitral valve surgery. The heart is top normal in size and without pericardial effusion. Lungs and pleural spaces: There is moderate emphysema. Scarring/atelectasis is seen at both lung bases. Subpleural reticulation is seen throughout both lungs. No airspace consolidation or pleural effusion is identified. The trachea and central airways are clear. Mild tree-in-bud opacities are seen in the left lower lobe and there is diffuse peribronchial thickening. A 2 mm pleural-based nodule in the right upper lobe on image #73 is unchanged. Mediastinum: There is no mediastinal lymphadenopathy. Mary Jo: Not well assessed without IV contrast. Axillae: There is no axillary lymphadenopathy. Upper abdomen: Partially visualized upper abdominal viscera is within normal limits. Skeletal structures: The skeletal structures are osteopenic. Degenerative change is noted in the thoracic spine. No lytic or blastic bony lesions are seen. IMPRESSION: 1. There are tree in bud airspace opacities in the left lower lobe with associated diffuse peribronchial thickening. This is likely on an infectious/inflammatory basis. Clinical correlation will be required. A follow- up chest CT in 3-6 months time is recommended to document complete resolution. 2. There is no lobar consolidation or pleural effusion. 3. Mild emphysema. 4. A 1.7 cm low-attenuation nodule is seen in the left lobe of the thyroid gland. If not previously performed, a nonemergent thyroid ultrasound is recommen ded in follow-up. 5. Additional findings as above. PG Care Time/CCT Total # of Minutes Spent Total Time Spent with Patient: Total time spent is greater than 50% in coordination of care (as documented) at patient's floor/unit and/or counseling patient: Coding Level of Care Code 61660 SUB INP/OBS CARE 2/35MIN Diagnoses Parainfluenza infection B34.8 Asthma exacerbation with COPD (chronic obstructive pulmonary disease) J44.1; J45.901
--- NOTE | 2023-04-19 13:35 | Hospitalist Progress Note ---
Date of Service April 19, 2023 Assessment & Plan (1) Asthma exacerbation with COPD (chronic obstructive pulmonary disease): Plan: Asthma and COPD exacerbation due to acute Parainfluenza virus infection Hemodynamically stable and stable on RA, -S/P albuterol and 125 mg IV Solu-Medrol by EMS and 2 DuoNebs + 324 mg Asipirin and a dose of Azithromycin in the ED, -S/P 10 mg PO Guaifenesin/Codeine syrup and 2gm IV mag-sulfate -Switched to BID Doxycycline instead of Azithromycin as her QTc is in the 480's today -Continue home breathing treatments, prn DuoNebs -Pulmonary consulted -switch to PO instead of IV prednisone, continue formoterol, discontinue beroduo inhaler. (2) Elevated troponin: Plan: trop: 18.9 > 16.8 No acute ECG changes Patient without acute changes in her chronic chest pain from her sternotomy last year for mitral valve replacement -Continue to monitor on tele (3) Parainfluenza infection: Plan: -Supportive care as explained in asthma/COPD exacerbation (4) Chronic chest pain: Plan: Currently at baseline at rest but exacerbated with coughing Lidocaine patch was reportedly unhelpful by the patient. -Was seen by wound care who reported no acute concerns - Chest CT did not indicate infectious etiology for continued pain. -Will continue Cyclobenzaprine -Will hold prn Oxycodone for now to prevent respiratory suppression while on codeine/Guaifenesin for cough (5) History of mitral valve replacement with mechanical valve: Plan: Goal INR is 2.5-3.5, currently at 1.8 today -Will give 7.5 mg PO STAT, continue with 5 mg MWF and 7.5 mg on all other days -Monitor AM INR and adjust dosing as needed (6) Hypertension: Plan: Stable -Continue losartan (7) Chronic systolic (congestive) heart failure: Plan: Examines euvolemic-slightly dry on admission -Will obtain BNP and CT chest for further evaluation -Continue daily lasix and PO KCL for now (8) Hyperlipidemia: Plan: -Continue statin (9) Atrial fibrillation: Plan: -Currently in NSR -Continue metoprolol and Warfarin (10) Tobacco abuse: Plan: -Currently on Nicotine patches outpatient, will continue while admitted (11) Diabetes mellitus, type 2: Plan: -Hold metformin and Trulicity -Will need to monitor for hyperglycemia with steroid treatment -Monitor BSG q4h until respiratory status is stable, goal is 110-160 while on steroids -Start 5 units lantus BID, CF of 50 and CR of 15 -HH and DMII (12) Obstructive sleep apnea on CPAP: Plan: -HS CPAP ordered (13) GERD (gastroesophageal reflux disease): Plan: -Continue BID pantoprazole Plan DVT: Warfarin F/E/N: Clears advancing to HH and DMII as tolerated by respiratory status. FULL CODE Dispo: Med Admission and Anticipated Discharge Date Admission Date: April 18, 2023 Supervising Physician Co-Signing Physician Notes Medical Student Supervision Note: I was personally present during medical student patient encounter and independently interviewed and examined the patient and verified the duran history and physical, reviewed labs and image studies, discussed the case with Kari Lizama and agree with the findings and care plan. Acute severe persistent asthma exacerbation sec to parainfluenza infection - steroids, nebs, inhalers. antitussive. chest wall pain - chronic. follow. Subjective No acute events overnight. Today, Deb's feels unwell. She is has a persistent, productive cough that is making her quite short of breath. She additionally is experiencing chest pain around the area of a keloid scar following open heart surgery which she reports was 7 months ago. The increased coughing is contributing the the pain of the scar. She does not endorse fevers or chills, crushing chest pain, or dizziness. Review of Systems Constitutional: Denied fever, night sweats, fatigue, weakness, dizziness Respiratory: Severe productive cough and shortness of breath. Cardiovascular: Additional Comments: Chest pain. Denies palpitations Gastrointestinal: Denied nausea, vomiting, diarrhea, abdominal pain. Neurologic: Denied weaknesss, numbness, or tingling. Physical Exam Constitutional: Alert and oriented x3, in hopsital bed, appears considerably uncomfortable with intractable coughing. Neck: Respiratory: Cough, shortness of breath, labored breathing, bronchial wheezing, sounds are present, could not hear crackles Cardiovascular: Normal rate and regular rhythmn. No heart sounds ausculated. Radial pulses equal b/l. Capillary refill less than 2 sec. Gastrointestinal (Abdomen): Nondistended, nontender, normoactive bowel sounds. Musculoskeletal: Could adjust herself in bed independently. Skin: Warm dry, no apparent rashed. Psychiatric: Appropriate mood and affect. Lymphatic: No lymphadenopathy in the neck and cervical region. Results & Data Results & Data Vital Signs (Past 12 Hours) Vital Signs Temp Pulse Pulse Resp BP Pulse Ox O2 Del Method 04/19/23 12:21 36.8 C 77 18 133/73 96 Room Air 04/19/23 10:00 89 04/19/23 08:00 84 04/19/23 08:00 Room Air, CPAP 04/19/23 07:44 36.7 C 72 18 144/74 H 97 Nasal Cannula 04/19/23 07:02 81 18 94 Room Air 04/19/23 02:03 79 15 99 04/19/23 02:02 79 14 99 CPAP O2 Flow Rate 04/19/23 12:21 04/19/23 10:00 04/19/23 08:00 04/19/23 08:00 04/19/23 07:44 2 04/19/23 07:02 04/19/23 02:03 04/19/23 02:[address] 04/18/23 14:56 CT SCAN OF THE CHEST WITHOUT IV CONTRAST CLINICAL HISTORY: Respiratory distress. COMPARISON STUDY: Chest x-ray dated 04/18/2023. Chest CT dated 12/14/2022. TECHNIQUE: CT scan of the thorax was performed from the thoracic inlet to the upper abdomen. Images are reviewed in the axial, sagittal, and coronal planes. IV contrast was not administered for this examination as per the referring clinician. A dose lowering technique was utilized adhering to the principles of ALARA. CT DOSE: 806.44 mGy.cm FINDINGS: Thyroid: Imaged portions of the thyroid gland are normal in size and attenuation. A 1.7 cm low-attenuation nodule is seen in the left lobe. Thoracic aorta: There is moderate atherosclerotic calcification of the thoracic aorta, which is normal in caliber and demonstrates standard 3-vessel arch anatomy. Heart: The patient is status post midline sternotomy. There is evidence of previous mitral valve surgery. The heart is top normal in size and without pericardial effusion. Lungs and pleural spaces: There is moderate emphysema. Scarring/atelectasis is seen at both lung bases. Subpleural reticulation is seen throughout both lungs. No airspace consolidation or pleural effusion is identified. The trachea and central airways are clear. Mild tree-in-bud opacities are seen in the left lower lobe and there is diffuse peribronchial thickening. A 2 mm pleural-based nodule in the right upper lobe on image #73 is unchanged. Mediastinum: There is no mediastinal lymphadenopathy. Mary Jo: Not well assessed without IV contrast. Axillae: There is no axillary lymphadenopathy. Upper abdomen: Partially visualized upper abdominal viscera is within normal limits. Skeletal structures: The skeletal structures are osteopenic. Degenerative change is noted in the thoracic spine. No lytic or blastic bony lesions are seen. IMPRESSION: 1. There are tree in bud airspace opacities in the left lower lobe with associated diffuse peribronchial thickening. This is likely on an infectious/inflammatory basis. Clinical correlation will be required. A follow- up chest CT in 3-6 months time is recommended to document complete resolution. 2. There is no lobar consolidation or pleural effusion. 3. Mild emphysema. 4. A 1.7 cm low-attenuation nodule is seen in the left lobe of the thyroid gland. If not previously performed, a nonemergent thyroid ultrasound is recommended in follow-up. 5. Additional findings as above. ACT 112: Negative or not required by law. Electronically signed by: Marin De La Rosa M.D. 04/18/2023 4:40 PM (6) Hypertension Hypertension type: essential hypertension Qualified Code(s): I10 - Essential (primary) hypertension (8) Hyperlipidemia Hyperlipidemia type: unspecified Qualified Code(s): E78.5 - Hyperlipidemia, unspecified (11) Diabetes mellitus, type 2 Diabetes mellitus complication status: with hyperglycemia Diabetes mellitus terminal clerk insulin use: with terminal clerk use Qualified Code(s): E11.65 - Type 2 diabetes mellitus with hyperglycemia; Z79.4 - superintendent container terminal (current) use of insulin
[2023-04-19] MEDS ORDERED: predniSONE 20 MG TAB PO SCH ×2 (14:30→15:30)
[2023-04-19] MEDS: WARFARIN SOD 5 MG TAB PO SCH (15:38)
[2023-04-19] MEDS ORDERED: COUGH DROP (SUGAR FREE) LOZ 24 LOZ/1 BOX BUCCAL PRN (16:54)
[2023-04-19] MEDS ORDERED: PHARMACY GLYCEMIC MGMT CONSULT PRN (17:16)
[2023-04-19] MEDS ORDERED: INSULIN HUMAN REGULAR PER UNIT 10 UNITS in SYRINGE 9.9 ML IV ONE (17:45)
[2023-04-19] MEDS ORDERED: LANTUS PER UNIT CHARGE SQ SCH (21:00)
[2023-04-19] MEDS: AZITHROMYCIN 250 MG TAB PO SCH (21:32)
[2023-04-19] MEDS: ACETAMINOPHEN 325 MG TAB PO PRN (21:33)
[2023-04-19] MEDS: ATORVASTATIN 40 MG TAB PO SCH (21:36)
[2023-04-19] MEDS ORDERED: KETOROLAC TROMETHAMINE 15 MG/ML VIAL IV ONE (22:09)
[2023-04-19] MEDS ORDERED: INSULIN ASPART PER UNIT CHARGE SC SCH (22:30)
[2023-04-20] MEDS ORDERED: INSULIN HUMAN REGULAR PER UNIT 10 UNITS in SYRINGE 9.9 ML IV ONE (00:30)
[2023-04-20] MEDS: INSULIN ASPART PER UNIT CHARGE SC SCH ×6 (00:43→21:39)
[2023-04-20] MEDS: ALBUT/IPRATROP 3MG/0.5MG NEB 3 ML VIAL NEB PRN ×2 (02:10→10:37)
[2023-04-20 06:13] LABS: Basophils # (auto) 0.01 K/uL (0-0.2); Basophils % (auto) 0.1 %; Hematocrit (blood only) 35.9 % (37.0-47.0); Hemoglobin 11.5 g/dl (12.0-16.0); Immature Granulocytes % (auto) 0.6 %; Lymphocytes # (auto) 2.94 K/uL (1.2-3.4); Lymphocytes % (auto) 18.3 %; Mean Corpuscular Hemoglobin 29.6 pg (25.0-34.0); Mean Corpuscular Volume 92.5 fL (80.0-100.0); Mean Platelet Volume 11.4 fL (9.4-12.4); Monocytes # (auto) 0.91 K/uL (0.11-0.59); Monocytes % (auto) 5.7 %; Neutrophils # (auto) 12.07 K/uL (1.40-6.50); Neutrophils % (auto) 75.3 %; Platelet Count 282 K/uL (130-400); RDW Coefficient of Variation 14.8 % (11.5-14.5); RDW Standard Deviation 50.3 fL (36.4-46.3); Red Blood Count 3.88 M/uL (4.20-5.40); White Blood Count 16.03 K/ul (4.8-10.8)
[2023-04-20 06:38] LABS: INR 2.1 (0.9-1.1); Prothrombin Time 22.1 Seconds (9.0-12.0)
[2023-04-20 06:46] LABS: Albumin Level 3.4 gm/dl (3.4-5.0); BUN Creatinine Ratio 29.5 (10-20); Bilirubin,Total 0.2 mg/dl (0.2-1.0); Calcium 9.4 mg/dl (8.6-10.3); Creatinine Clr Calc Pharmacy 87.1 ml/min; Est GFR (African American) 83.9 ml/min; Est GFR (Non-African American) 72.4 ml/min; Globulin 3.3 gm/dl (2.5-4.0); Magnesium 2.2 mg/dl (1.7-2.4); Potassium 3.8 mmol/L (3.5-5.1); Total Protein 6.7 gm/dl (6.0-8.3)
[2023-04-20] MEDS: BUDESONIDE 0.5 MG/2 ML VIAL (PULMICORT) NEB SCH ×2 (07:40→20:16)
[2023-04-20] MEDS: FORMOTEROL 20 MCG/2 ML VIAL NEB SCH ×2 (07:40→20:16)
[2023-04-20] MEDS: ASPIRIN 81 MG ECTAB PO SCH (08:05)
[2023-04-20] MEDS: AZITHROMYCIN 250 MG TAB PO SCH (08:07)
[2023-04-20] MEDS: BENZONATATE 100 MG CAPSULE PO SCH ×3 (08:08→21:38)
[2023-04-20] MEDS: CHLORHEXIDINE GLUCONATE 0.12% 480 ML MT SCH ×2 (08:09→21:38)
[2023-04-20] MEDS: LIDOCAINE 5% 1 PATCH TD SCH (08:10)
[2023-04-20] MEDS: FUROSEMIDE 80 MG TAB PO SCH (08:10)
[2023-04-20] MEDS: METOPROLOL SUCC 25MG EXT REL TAB PO SCH (08:11)
[2023-04-20] MEDS: LOSARTAN POTASSIUM 25 MG TAB PO SCH (08:11)
[2023-04-20] MEDS: NICOTINE 21 MG/24 HR TDSY TD SCH (08:12)
[2023-04-20] MEDS: PANTOprazole 40 MG TAB PO SCH ×2 (08:13→21:40)
[2023-04-20] MEDS: POTASSIUM CHLORIDE CRTAB 20 MEQ TABCR PO SCH (08:13)
[2023-04-20] MEDS: LANTUS PER UNIT CHARGE SQ SCH ×2 (09:22→21:39)
[2023-04-20] MEDS ORDERED: KETOROLAC TROMETHAMINE 15 MG/ML VIAL IV ONE (09:22)
--- NOTE | 2023-04-20 09:26 | Hospitalist Progress Note ---
Date of Service April 20, 2023 Assessment & Plan (1) Asthma exacerbation with COPD (chronic obstructive pulmonary disease): Plan: -Asthma and COPD exacerbation due to acute parainfluenza virus infection -Hemodynamically stable and stable on RA at present -S/P albuterol and 125 mg IV Solu-Medrol by EMS and 2 DuoNebs + 324 mg Asipirin and azithromycin in the ED, 2gm Mg -Pulmonary consulted and following, supportive care as below -Prednisone 40 mg daily -Perforomist BID -Budesonide BD -Azithromycin 250 mg daily -Cough suppression- benzonatate TID, guaifenesin/codeine PRN -Duoneb PRN (2) Elevated troponin: Plan: Troponin on admission: 18.9 > 16.8 No acute ECG changes Patient without acute changes in her chronic chest pain from her sternotomy last year for mitral valve replacement (3) Chronic chest pain: Plan: -Superficial pain over sternotomy scar, I do not suspect ACS/cardiac etiology of chest pain -Currently at baseline at rest but exacerbated with coughing -Was seen by wound care who reported no acute concerns - Chest CT did not indicate infectious etiology for continued pain. -Continue cyclobenzaprine -Toradol PRN (4) History of mitral valve replacement with mechanical valve: Plan: Goal INR is 2.5-3.5, currently at 2.1 -Continue warfarin -Monitor PT/INR (5) Hypertension: Plan: Chronic, stable -Continue losartan, metoprolol -BP elevation may occur 2/2 systemic steroids, will monitor (6) Chronic systolic (congestive) heart failure: Plan: -Not in exacerbation, pt with euvolemic status -08/2022 TTE- EF 35-40% -BNP pending -Continue home furosemide 80 mg daily (7) Atrial fibrillation: Plan: -Currently in NSR, rate-controlled -Continue metoprolol and warfarin (8) Tobacco abuse: Plan: -Currently on nicotine patches outpatient, continue while admitted (9) Diabetes mellitus, type 2: Plan: -Hold home metformin and Trulicity -Will need to monitor for hyperglycemia with steroid treatment -Lantus 5u BID, SSI (10) Obstructive sleep apnea on CPAP: Plan: -HS CPAP (11) GERD (gastroesophageal reflux disease): Plan: -Continue BID pantoprazole Plan DVT: Warfarin F/E/N: DM2, heart healthy FULL CODE Dispo: Medical/surgical Admission and Anticipated Discharge Date Admission Date: April 18, 2023 Supervising Physician Co-Signing Physician Notes Resident Physician Supervision Note: I independently interviewed and examined the patient and verified the duran history and physical, reviewed labs and image studies and agree with resident findings and care plan. Subjective No acute events overnight. Pt notes no significant change from day prior- continues to report non- productive cough with associated dyspnea. Still having chest pain over her sternotomy scar and received Toradol PRN overnight which did help. Denies fever, chills. Review of Systems Review of Systems: Per HPI/Subjective Physical Exam Constitutional: WD/WN, vitals as above Neck: trachea midline, no thyromegaly Respiratory: + cough; no respiratory distress, no labored breathing and not tachypneic Auscultation: + rhonchi and + wheezes Cardiovascular: RRR, no murmur, no edema Gastrointestinal (Abdomen): normal bowel sounds, soft, nontender, no hepatosplenomegaly Musculoskeletal: Extremities: extremities normal to inspection Skin: no rashes, warm and dry Results & Data Results & Data Vital Signs (Past 12 Hours) Vital Signs Temp Pulse Pulse Resp BP Pulse Ox O2 Del Method 04/20/23 07:37 36.5 C 76 20 150/84 H 99 Room Air 04/20/23 07:35 83 18 94 Room Air 04/20/23 04:09 36.5 C 69 22 129/78 97 CPAP 04/20/23 02:10 66 16 95 CPAP 04/20/23 02:09 66 16 97 04/20/23 00:00 36.8 C 67 24 130/80 98 CPAP 04/19/23 23:54 Room Air 04/19/23 21:50 26 H 94 FiO2 04/20/23 07:37 04/20/23 07:35 04/20/23 04:09 04/20/23 02:10 21 04/20/23 02:09 21 04/20/23 00:00 04/19/23 23:54 04/19/23 21:50 21 Resident Activity Tracking Resident Involvement: Resident Care Provided Care Provided: Adult Hospital Medicine (5) Hypertension Hypertension type: essential hypertension Qualified Code(s): I10 - Essential (primary) hypertension (9) Diabetes mellitus, type 2 Diabetes mellitus complication status: with hyperglycemia Diabetes mellitus nursing home insulin use: with terminal operations supervisor use Qualified Code(s): E11.65 - Type 2 diabetes mellitus with hyperglycemia; Z79.4 - prison (current) use of insulin
[2023-04-20] MEDS: PREGABALIN 50 MG CAP PO SCH ×3 (09:29→21:40)
[2023-04-20] MEDS: predniSONE 20 MG TAB PO SCH (10:34)
--- NOTE | 2023-04-20 11:52 | Pharmacy Report ---
Pharmacy Glycemic Short Note 2 - Date of Service April 20, 2023 - Glycemic Short BSG Results (Last 24 hours): 04/19/23 04/19/23 04/19/23 11:54 16:54 16:55 Glucose POC Glucose 269 H 377 H* 349 H* 04/19/23 04/20/23 04/20/23 19:54 00:19 04:08 Glucose POC Glucose 437 H* 467 H* 194 H 04/20/23 04/20/23 04/20/23 05:46 07:39 11:10 Glucose 88 POC Glucose 93 196 H OUTPATIENT ANTIDIABETIC REGIMEN: * Metformin ER 750 mg PO BID * Dulaglutide 0.75 mg/wk HbA1c: 7% on 01/12/23 ASSESSMENT: * 57 y/o F admitted for asthma and COPD exacerbation from vial infection. She has history of Type 2 diabetes managed at home on oral Metformin and Trulicity SQ. * Blood sugars were elevated on admission on 04/18. She was started on low dose basal insulin BID and Novolog ACHS with parameters based on stress of 1. * BSGs trended down to in the 200s yesterday. Patient received IV solumedrol and oral Prednisone which caused BSGs to rise again above 300 mg/dl. * Pharmacy consulted last night. Novolog parameters tightened at HS and Lantus dose increased based on stress of 3. Also patient received two doses of IV insulin 10 units. * Patient received a total of 93 units of insulin yesterday; 38 units basal and 55 units bolus. * Fasting BSG today was 88 mg/dl. Will continue with stress of 3 parameters for Novolog and Lantus dosing. * Oral Prednisone 40 mg daily continued. Timing changed to QAM. * Patient known to glycemic service from prior admission past January. She required basal insulin ~25 units BID. Will use this again. May need to cut back on dosing if steroid dose decreased. PLAN FOR INPATIENT GLYCEMIC CONTROL: * Hold outpatient diabetes medications * Basal insulin * Lantus 25 units SQ BID * Bolus insulin * NovoLog per scale ACHS or Q6hrs while NPO * Goal Range: Low 110 mg/dL - High 140 mg/dL * Correction Factor: 15 mg/dL/unit * Nutritional / Prandial insulin per carb ratio of 1 unit per 5 grams CHO consumed
--- NOTE | 2023-04-20 12:11 | Pulmonology Progress Note ---
Date of Service April 20, 2023 Assessment & Plan (1) Parainfluenza infection: (2) Asthma exacerbation with COPD (chronic obstructive pulmonary disease): Plan Attending: Dr. Zarate Impression: 57-year-old female with severe cough and bronchospasm associated with parainfluenza infection. History of asthma with COPD. Previous admissions with similar complaints Recommendations: 1. Parainfluenza: No therapy available to treat this infection other than supportive care. Okay to continue steroids for now secondary to wheezes. Will order DuoNeb at this time due to increased wheezes. Also suggest CPAP as needed during the day to help patient lay flat. 2. Asthma exacerbation secondary to viral infection: Continue supportive management. Continue nebulized budesonide, Perforomist, and DuoNeb scheduled. Discontinue Breo. Additional cough suppression using Tessalon and codeine cough syrup. Patient is currently taking Lyrica. We will hold off on addition of gabapentin as patient states that her cough seems to be improving other than when recumbent 3. Recommend the patient use CPAP nightly at 12 cm H2O. Pt can bring in her home machine to use if needed. Patient does note that she had improved sleep last night with use of CPAP. Suggested the patient uses CPAP during the day when laying down as this seemed to help with cough last night. 4. Management patient's other medical issues is deferred to the primary admitting service. We will continue to follow with you. Feel free to contact us with questions or concerns Please refer to Dr. Zarate's addendum for any corrections or recommendations Admission and Anticipated Discharge Date Admission Date: April 18, 2023 Subjective Attending: Dr. Zarate Patient seen and examined in room 454 bed 2. Patient reports that she is feeling better today and that she has noticeable although minimal improvement daily. Continues with wheezes when she lays flat. Otherwise, breathing is improved when she is sitting upright or in bedside chair. No cough or sputum production. No fever. No new acute pulmonary complaints. Review of Systems Review of Systems: A total of 10 systems was reviewed and is negative other than as listed in the HPI Physical Exam Physical Exam: GENERAL : No acute distress EYES: No icterus, gaze conjugate NOSE: No evidence of epistaxis MOUTH: No lesions or candidiasis NECK: Supple LUNGS: Scattered wheezes with upper field rhonchi bilaterally. Induced cough with deep inspiration. Patient does not appear to be using sensory muscles. No acute respiratory distress. HEART: Regular, rate controlled ABDOMEN: Soft, NT, ND, BS Present EXTREMITIES: No LE edema, pedal pulses intact NEURO: A&OX3 Results & Data Results & Data Vital Signs (Past 12 Hours) Vital Signs Temp Pulse Pulse Resp BP Pulse Ox O2 Del Method 04/20/23 11:32 63 04/20/23 10:37 66 18 96 CPAP 04/20/23 10:37 68 18 96 04/20/23 07:37 36.5 C 76 20 150/84 H 99 Room Air 04/20/23 07:35 83 18 94 Room Air 04/20/23 04:09 36.5 C 69 22 129/78 97 CPAP 04/20/23 02:10 66 16 95 CPAP 04/20/23 02:09 66 16 97 FiO2 04/20/23 11:32 04/20/23 10:37 21 04/20/23 10:37 21 04/20/23 07:37 04/20/23 07:35 04/20/23 04:09 04/20/23 02:10 21 04/20/23 02:09 21 Critical Care Results & Data Vital Signs (Past 12 Hours) Vital Signs Temp Pulse Pulse Resp BP Pulse Ox O2 Del Method 04/20/23 11:32 63 04/20/23 10:37 66 18 96 CPAP 04/20/23 10:37 68 18 96 04/20/23 07:37 36.5 C 76 20 150/84 H 99 Room Air 04/20/23 07:35 83 18 94 Room Air 04/20/23 04:09 36.5 C 69 22 129/78 97 CPAP 04/20/23 02:10 66 16 95 CPAP 04/20/23 02:09 66 16 97 FiO2 04/20/23 11:32 04/20/23 10:37 21 04/20/23 10:37 21 04/20/23 07:37 04/20/23 07:35 04/20/23 04:09 04/20/23 02:10 21 04/20/23 02:09 21 Lab & Micro Results (Past 24 Hours) RBC 3.88 M/uL (4.20-5.40) L 04/20/23 WBC 16.03 K/ul (4.8-10.8) H 04/20/23 Hgb 11.5 g/dl (12.0-16.0) L 04/20/23 Hct 35.9 % (37.0-47.0) L 04/20/23 MCV 92.5 fL (80.0-100.0) 04/20/23 MCH 29.6 pg (25.0-34.0) 04/20/23 MCHC 32.0 g/dL (32.0-36.0) 04/20/23 RDW Standard Deviation 50.3 fL (36.4-46.3) H 04/20/23 RDW Coefficient of Variation 14.8 % (11.5-14.5) H 04/20/23 Plt Count 282 K/uL (130-400) 04/20/23 MPV 11.4 fL (9.4-12.4) 04/20/23 Neutrophils (%) (Auto) 75.3 % 04/20/23 Lymphocytes (%) (Auto) 18.3 % 04/20/23 Monocytes # (Auto) 0.91 K/uL (0.11-0.59) H 04/20/23 Eosinophils # (Auto) 0.00 K/uL (0-0.50) 04/20/23 Immature Granulocyte % (Auto) 0.6 % 04/20/23 Neutrophils # (Auto) 12.07 K/uL (1.40-6.50) H 04/20/23 Lymphocytes # (Auto) 2.94 K/uL (1.2-3.4) 04/20/23 Monocytes # (Auto) 0.91 K/uL (0.11-0.59) H 04/20/23 Eosinophils # (Auto) 0.00 K/uL (0-0.50) 04/20/23 Basophils # (Auto) 0.01 K/uL (0-0.2) 04/20/23 Immature Granulocyte # (Auto) 0.10 K/uL (0.01-0.20) 3 Na 142 mmol/L (136-145) 04/20/23 K 3.8 mmol/L (3.5-5.1) 04/20/23 Cl 108 mmol/L (98-107) H 04/20/23 CO2 29 mmol/L (21-32) 04/20/23 Anion Gap 5 (3-11) 04/20/23 BUN 26 mg/dl (6-23) H 04/20/23 Creatinine 0.88 mg/dl (0.6-1.2) 04/20/23 Estimated GFR ( Amer) 83.9 ml/min 04/20/23 Estimated GFR (Non-Af Amer) 72.4 ml/min 04/20/23 BUN/Creatinine Ratio 29.5 (10-20) H 04/20/23 Glu 88 mg/dl (70-99(Fasting)) 04/20/23 Ca 9.4 mg/dl (8.6-10.3) 04/20/23 Total Bilirubin 0.2 mg/dl (0.2-1.0) 04/20/23 AST 15 U/L (13-39) 04/20/23 ALT 12 U/L (7-52) 04/20/23 Alkaline Phosphatase 95 U/L (34-104) 04/20/23 TP 6.7 gm/dl (6.0-8.3) 04/20/23 Albumin 3.4 gm/dl (3.4-5.0) 04/20/23 Globulin 3.3 gm/dl (2.5-4.0) 04/20/23 Albumin/Globulin Ratio 1.0 (0.9-2) 04/20/23 Mg 2.2 mg/dl (1.7-2.4) 04/20/23 05:46 Calcium Level 9.4 mg/dl (8.6-10.3) 04/20/23 05:46 Prothromb Time International Ratio 2.1 (0.9-1.1) H 04/20/23 05 :46 I & O Totals 24 Hours 04/19/23 04/20/23 04/21/23 06:59 06:59 06:59 Intake Total 1165 / 1165 2300 / 2300 Balance 1165 / 1165 2300 / 2300 Cumulative 04/18/23 10:57 thru 04/20/23 05:24 Intake Total 3465 Balance 3465 RT Ventilator Mngmt (Last Documented) Ventilator Ordered Settings Respiratory Rate 18 04/20/23 10:37 Fraction of Inspired Oxygen 21 04/20/23 10:37 Ventilator - PT Measurements Respiratory Rate 18 PG Care Time/CCT Total # of Minutes Spent Total Time Spent with Patient: Total time spent is greater than 50% in coordination of care (as documented) at patient's floor/unit and/or counseling patient: 20 Coding Level of Care Code 17417 SUB INP/OBS CARE 11/16MIN Diagnoses Parainfluenza infection B34.8 Asthma exacerbation with COPD (chronic obstructive pulmonary disease) J44.1; J45.901 Time Spent (min) 20
[2023-04-20] MEDS: WARFARIN SOD 7.5 MG TAB PO SCH (15:38)
[2023-04-20] MEDS: ATORVASTATIN 40 MG TAB PO SCH (21:38)
[2023-04-20] MEDS: CYCLOBENZAPRINE HCL 5 MG TAB PO PRN (21:47)
[2023-04-21] MEDS: CYCLOBENZAPRINE HCL 5 MG TAB PO PRN ×3 (05:33→21:45)
[2023-04-21 06:26] LABS: Basophils # (auto) 0.01 K/uL (0-0.2); Basophils % (auto) 0.1 %; Eosinophils # (auto) 0.01 K/uL (0-0.50); Eosinophils % (auto) 0.1 %; Hematocrit (blood only) 33.9 % (37.0-47.0); Hemoglobin 10.5 g/dl (12.0-16.0); Immature Granulocytes # (auto) 0.06 K/uL (0.01-0.20); Immature Granulocytes % (auto) 0.5 %; Lymphocytes # (auto) 3.73 K/uL (1.2-3.4); Lymphocytes % (auto) 31.7 %; Mean Corpuscular Hemoglobin 29.9 pg (25.0-34.0); Mean Corpuscular Volume 96.6 fL (80.0-100.0); Mean Platelet Volume 11.5 fL (9.4-12.4); Monocytes # (auto) 0.78 K/uL (0.11-0.59); Monocytes % (auto) 6.6 %; Neutrophils # (auto) 7.18 K/uL (1.40-6.50); Platelet Count 252 K/uL (130-400); RDW Coefficient of Variation 15.1 % (11.5-14.5); RDW Standard Deviation 54.1 fL (36.4-46.3); Red Blood Count 3.51 M/uL (4.20-5.40); White Blood Count 11.77 K/ul (4.8-10.8)
[2023-04-21 06:52] LABS: Albumin Globulin Ratio 1.1 (0.9-2); Albumin Level 3.4 gm/dl (3.4-5.0); BUN Creatinine Ratio 37.5 (10-20); Bilirubin,Total 0.3 mg/dl (0.2-1.0); Calcium 8.5 mg/dl (8.6-10.3); Creatinine Clr Calc Pharmacy 106.5 ml/min; Est GFR (Non-African American) 92.3 ml/min; Potassium 3.6 mmol/L (3.5-5.1); Total Protein 6.4 gm/dl (6.0-8.3)
[2023-04-21 07:09] LABS: INR 2.2 (0.9-1.1); Prothrombin Time 23.3 Seconds (9.0-12.0)
--- NOTE | 2023-04-21 07:51 | Hospitalist Progress Note ---
Date of Service April 21, 2023 Assessment & Plan (1) Asthma exacerbation with COPD (chronic obstructive pulmonary disease): Plan: -Asthma and COPD exacerbation due to acute parainfluenza virus infection -Hemodynamically stable and stable on RA at present -S/P albuterol and 125 mg IV Solu-Medrol by EMS and 2 DuoNebs + 324 mg Asipirin and azithromycin in the ED, 2gm Mg -Pulmonary consulted and following, supportive care as below -Prednisone 40 mg daily -Perforomist BID -Budesonide BD -Azithromycin 250 mg daily -Cough suppression- benzonatate TID, guaifenesin/codeine PRN -Duoneb PRN (2) Elevated troponin: Plan: Troponin on admission: 18.9 > 16.8 No acute ECG changes Patient without acute changes in her chronic chest pain from her sternotomy last year for mitral valve replacement (3) Chronic chest pain: Plan: -Superficial pain over sternotomy scar, I do not suspect ACS/cardiac etiology of chest pain -Currently at baseline at rest but exacerbated with coughing -Was seen by wound care who reported no acute concerns - Chest CT did not indicate infectious etiology for continued pain. -Continue cyclobenzaprine - 04/21: changed APAP from prn to scheduled, gave one-time dose of tramadol 50mg, assess response (4) History of mitral valve replacement with mechanical valve: Plan: Goal INR is 2.5-3.5, currently at 2.1 -Continue warfarin -Monitor PT/INR (5) Hypertension: Plan: Chronic, stable -Continue losartan, metoprolol -BP elevation may occur 2/2 systemic steroids, will monitor (6) Chronic systolic (congestive) heart failure: Plan: -Not in exacerbation, pt with euvolemic status -08/2022 TTE- EF 35-40% -BNP pending -Continue home furosemide 80 mg daily (7) Atrial fibrillation: Plan: -Currently in NSR, rate-controlled -Continue metoprolol and warfarin (8) Tobacco abuse: Plan: -Currently on nicotine patches outpatient, continue while admitted (9) Diabetes mellitus, type 2: Plan: -Hold home metformin and Trulicity -Will need to monitor for hyperglycemia with steroid treatment -Lantus 5u BID, SSI (10) Obstructive sleep apnea on CPAP: Plan: -HS CPAP (11) GERD (gastroesophageal reflux disease): Plan: -Continue BID pantoprazole Plan DVT: Warfarin F/E/N: DM2, heart healthy FULL CODE Dispo: Medical/surgical Admission and Anticipated Discharge Date Admission Date: April 18, 2023 Supervising Physician Co-Signing Physician Notes Resident Physician Supervision Note: I independently interviewed and examined the patient and verified the duran history and physical, reviewed labs and image studies and agree with resident findings and care plan. Subjective Patient seen and evaluated at bedside this morning. Patient feels well today and notes her SOB has significantly improved compared to yesterday. However patient does note that her sternal pain persists and is particularly bothersome. Patient denies headache, CP, abdominal pain, vomiting, and diarrhea. Review of Systems Review of Systems: See HPI Physical Exam Physical Exam: Constitutional: well-appearing, no acute distress HEENT: oxymask in place delivering neb CV: heart sounds distant Resp: CTABL, no wheezes/rales/rhonchi appreciated, no increased work of breathing Neuro: alert, oriented, no focal neurologic deficit appreciated Results & Data Results & Data Vital Signs (Past 12 Hours) Vital Signs Temp Pulse Pulse Resp BP Pulse Ox O2 Del Method 04/21/23 03:15 66 29 H 99 04/21/23 02:54 36.5 C 61 18 155/79 H 98 BiPAP 04/20/23 23:00 62 04/21/23 00:09 26 H 97 04/20/23 23:25 36.5 C 62 18 125/61 96 BiPAP 04/20/23 21:30 CPAP 04/20/23 20:20 70 24 94 Room Air 04/20/23 20:16 70 24 94 FiO2 04/21/23 03:15 21 04/21/23 02:54 04/20/23 23:00 04/21/23 00:09 21 04/20/23 23:25 04/20/23 21:30 04/20/23 20:20 21 04/20/23 20:16 Resident Activity Tracking Resident Involvement: Resident Care Provided Care Provided: Adult Hospital Medicine (5) Hypertension Hypertension type: essential hypertension Qualified Code(s): I10 - Essential (primary) hypertension (9) Diabetes mellitus, type 2 Diabetes mellitus complication status: with hyperglycemia Diabetes mellitus exterminator termite insulin use: with prison use Qualified Code(s): E11.65 - Type 2 diabetes mellitus with hyperglycemia; Z79.4 - extermination inspector (current) use of insulin
[2023-04-21] MEDS: BUDESONIDE 0.5 MG/2 ML VIAL (PULMICORT) NEB SCH ×2 (07:58→20:04)
[2023-04-21] MEDS: FORMOTEROL 20 MCG/2 ML VIAL NEB SCH ×2 (07:58→20:04)
[2023-04-21] MEDS: PREGABALIN 50 MG CAP PO SCH ×3 (08:51→21:40)
[2023-04-21] MEDS: LANTUS PER UNIT CHARGE SQ SCH ×2 (08:51→21:38)
[2023-04-21] MEDS: INSULIN ASPART PER UNIT CHARGE SC SCH ×4 (08:52→21:38)
[2023-04-21] MEDS: LIDOCAINE 5% 1 PATCH TD SCH (08:55)
[2023-04-21] MEDS: NICOTINE 21 MG/24 HR TDSY TD SCH (08:55)
[2023-04-21] MEDS ORDERED: traMADol HCL 50 MG TABLET PO STA (08:56)
[2023-04-21] MEDS: BENZONATATE 100 MG CAPSULE PO SCH ×3 (08:57→21:39)
[2023-04-21] MEDS: PANTOprazole 40 MG TAB PO SCH ×2 (08:57→21:41)
[2023-04-21] MEDS: AZITHROMYCIN 250 MG TAB PO SCH (08:58)
[2023-04-21] MEDS: POTASSIUM CHLORIDE CRTAB 20 MEQ TABCR PO SCH (08:58)
[2023-04-21] MEDS: predniSONE 20 MG TAB PO SCH (08:58)
[2023-04-21] MEDS: ASPIRIN 81 MG ECTAB PO SCH (08:59)
[2023-04-21] MEDS: LOSARTAN POTASSIUM 25 MG TAB PO SCH (08:59)
[2023-04-21] MEDS: METOPROLOL SUCC 25MG EXT REL TAB PO SCH (08:59)
[2023-04-21] MEDS: FUROSEMIDE 80 MG TAB PO SCH (09:00)
[2023-04-21] MEDS: CHLORHEXIDINE GLUCONATE 0.12% 480 ML MT SCH ×2 (09:01→21:39)
[2023-04-21] MEDS: INSULIN HUMAN NPH SC SCH (09:16)
[2023-04-21] MEDS: ACETAMINOPHEN 325 MG TAB PO SCH ×4 (09:17→21:38)
--- NOTE | 2023-04-21 09:18 | Pulmonology Progress Note ---
Date of Service April 21, 2023 Assessment & Plan (1) Parainfluenza infection: (2) Asthma exacerbation with COPD (chronic obstructive pulmonary disease): Plan Impression: 57-year-old female with severe cough and bronchospasm associated with parainfluenza infection. She is slowly showing clinical progress. Recommendations: 1. Parainfluenza: No therapy available to treat this infection. Supportive care. Unclear if steroids are beneficial or harmful however given bronchospasm seems reasonable to continue. 2. Asthma exacerbation secondary to viral infection: Continue supportive management. Continue nebulized budesonide, Perforomist, and DuoNeb scheduled. Continue prednisone for now. Complete 5-day course of oral azithromycin 3. Recommend the patient use CPAP nightly at 12 cm H2O. Pt can bring in her home machine to use if needed. She can use it during the day when sleeping or if she feels she needs it for cough suppression 4. Management patient's other medical issues is deferred to the primary admitting service. 5. Increase ambulation and out of bed to chair as much as possible. This will improve pulmonary/respiratory mechanics. We will continue to follow with you. Feel free to contact us with questions or concerns Admission and Anticipated Discharge Date Admission Date: April 18, 2023 Subjective Patient seen and examined. EMR reviewed. The patient reports that she continues to improve clinically. She is coughing less. She continues to feel that CPAP is beneficial. Her wheezing is still present but is improved. She states she was able to expectorate some phlegm. She has not had fevers chills or night sweats overnight. She is tolerating a diet and able to eat. She remains on room air. Review of Systems Review of Systems: All systems reviewed & are unremarkable except as noted in Subjective Physical Exam Constitutional: WD/WN, vitals as above Neck: trachea midline, no thyromegaly Respiratory: + cough; no respiratory distress, no labored breathing and not tachypneic Auscultation: + rhonchi and + wheezes; no crackles Cardiovascular: RRR, no murmur, no edema Gastrointestinal (Abdomen): normal bowel sounds, soft, nontender, no hepatosplenomegaly Musculoskeletal: Extremities: extremities normal to inspection Skin: no rashes, warm and dry Lymphatic: no cervical lymphadenopathy Results & Data Results & Data Vital Signs (Past 12 Hours) Vital Signs Temp Pulse Pulse Resp BP Pulse Ox O2 Del Method 06/30/23 07:21 36.5 C 62 19 163/73 H 96 Room Air 04/21/23 07:58 73 18 97 Room Air 04/21/23 03:15 66 29 H 99 04/21/23 02:54 36.5 C 61 18 155/79 H 98 BiPAP 04/20/23 23:00 62 04/21/23 00:09 26 H 97 04/20/23 23:25 36.5 C 62 18 125/61 96 BiPAP 04/20/23 21:30 CPAP FiO2 04/21/23 07:21 04/21/23 07:58 04/21/23 03:15 21 04/21/23 02:54 04/20/23 23:00 04/21/23 00:09 21 04/20/23 23:25 04/20/23 21:30 Laboratory Results 04/21/23 05:33 04/21/23 05:33 Diagnostic Findings No new imaging PG Care Time/CCT Total # of Minutes Spent Total Time Spent with Patient: Total time spent is greater than 50% in coordination of care (as documented) at patient's floor/unit and/or counseling patient: Coding Level of Care Code 39802 SUB INP/OBS CARE 2/35MIN Diagnoses Parainfluenza infection B34.8 Asthma exacerbation with COPD (chronic obstructive pulmonary disease) J44.1; J45.901
[2023-04-21 09:24] LABS: Chol HDL Ratio 3.8 (0-5)
--- NOTE | 2023-04-21 11:55 | Pharmacy Report ---
Pharmacy Glycemic Short Note 2 - Date of Service April 21, 2023 - Glycemic Short BSG Results (Last 24 hours): 04/20/23 04/20/23 04/21/23 16:33 19:55 05:33 Glucose 143 H POC Glucose 294 H 319 H* 04/21/23 04/21/23 07:20 11:17 Glucose POC Glucose 136 H 133 H OUTPATIENT ANTIDIABETIC REGIMEN: * Metformin ER 750 mg PO BID * Dulaglutide 0.75 mg/wk HbA1c: 7% on 01/12/23 ASSESSMENT: 04/21: * Patient received total 103 units of insulin yesterday; 50 units basal and 53 units bolus * BSGs yesterday were [phone] mg/dl. Fasting BSG today was 136 mg/dl. * Continues on Prednisone 40 mg daily which was given yesterday around 10 AM. This led to elevated BSGs at dinner and HS yesterday. * NPH insulin 0.14 units/kg was added on today to be given with the Prednisone 40 mg daily. A lower dose of NPH was ordered than typical (usual dose is 0.4 units/kg) since Novolog parameters were also tightened this AM. NPH insulin dosing may need increased tomorrow. * Basal Lantus 25 units BID continued the same as yesterday. 04/20/23: * 57 y/o F admitted for asthma and COPD exacerbation from vial infection. She has history of Type 2 diabetes managed at home on oral Metformin and Trulicity SQ. * Blood sugars were elevated on admission on 04/18. She was started on low dose basal insulin BID and Novolog ACHS with parameters based on stress of 1. * BSGs trended down to in the 200s yesterday. Patient received IV solumedrol and oral Prednisone which caused BSGs to rise again above 300 mg/dl. * Pharmacy consulted last night. Novolog parameters tightened at HS and Lantus dose increased based on stress of 3. Also patient received two doses of IV insulin 10 units. * Patient received a total of 93 units of insulin yesterday; 38 units basal and 55 units bolus. * Fasting BSG today was 88 mg/dl. Will continue with stress of 3 parameters for Novolog and Lantus dosing. * Oral Prednisone 40 mg daily continued. Timing changed to QAM. * Patient known to glycemic service from prior admission past January. She required basal insulin ~25 units BID. Will use this again. May need to cut back on dosing if steroid dose decreased. PLAN FOR INPATIENT GLYCEMIC CONTROL: * Hold outpatient diabetes medications * Basal insulin * Lantus 25 units SQ BID * NPH 15 units SQ QAM with Prednisone 40 mg PO daily * Bolus insulin * NovoLog per scale ACHS or Q6hrs while NPO * Goal Range: Low 110 mg/dL - High 140 mg/dL * Correction Factor: 12 mg/dL/unit * Nutritional / Prandial insulin per carb ratio of 1 unit per 4 grams CHO consumed
[2023-04-21] MEDS: WARFARIN SOD 5 MG TAB PO SCH (15:23)
[2023-04-21] MEDS: ATORVASTATIN 40 MG TAB PO SCH (21:41)
[2023-04-21] MEDS: ALBUT/IPRATROP 3MG/0.5MG NEB 3 ML VIAL NEB PRN (22:31)
[2023-04-22] MEDS: ACETAMINOPHEN 325 MG TAB PO SCH ×4 (01:15→14:16)
[2023-04-22] MEDS: ALBUT/IPRATROP 3MG/0.5MG NEB 3 ML VIAL NEB PRN (02:49)
[2023-04-22 06:18] LABS: Hematocrit (blood only) 36.7 % (37.0-47.0); Hemoglobin 11.6 g/dl (12.0-16.0); Mean Corpuscular Hemoglobin 29.7 pg (25.0-34.0); Mean Corpuscular Hgb Conc 31.6 g/dL (32.0-36.0); Mean Corpuscular Volume 93.9 fL (80.0-100.0); Mean Platelet Volume 11.5 fL (9.4-12.4); Platelet Count 265 K/uL (130-400); RDW Coefficient of Variation 14.9 % (11.5-14.5); RDW Standard Deviation 51.8 fL (36.4-46.3); Red Blood Count 3.91 M/uL (4.20-5.40); White Blood Count 13.91 K/ul (4.8-10.8)
[2023-04-22 06:34] LABS: BUN Creatinine Ratio 36.9 (10-20); Calcium 8.8 mg/dl (8.6-10.3); Creatinine Clr Calc Pharmacy 91.9 ml/min; Est GFR (African American) 88.8 ml/min; Est GFR (Non-African American) 76.6 ml/min; Potassium 3.7 mmol/L (3.5-5.1)
--- NOTE | 2023-04-22 06:57 | Hospitalist Progress Note ---
Date of Service April 22, 2023 Assessment & Plan (1) Asthma exacerbation with COPD (chronic obstructive pulmonary disease): Plan: 57 year old female w/ PmHx HFrEF (LVEF of 35-40%), mitral valve replacement on Warfarin, asthma-COPD overlap, history of pulmonary embolism, DMII, and HTN admitted for asthma/COPD exacerbation due to parainfluenza virus. Asthma exacerbation with COPD: -Asthma and COPD exacerbation due to acute parainfluenza virus infection -Hemodynamically stable and stable on RA at present -S/P albuterol and 125 mg IV Solu-Medrol by EMS and 2 DuoNebs + 324 mg Asipirin and azithromycin in the ED, 2gm Mg -Pulmonary consulted and following, supportive care as below -Prednisone 40 mg daily -Perforomist BID -Budesonide BD -Azithromycin 250 mg daily -Cough suppression- benzonatate TID, guaifenesin/codeine PRN -Duoneb PRN Elevated troponin: -Troponin on admission: 18.9 > 16.8 -No acute ECG changes -Patient without acute changes in her chronic chest pain from her sternotomy last year for mitral valve replacement Chronic chest pain: -Superficial pain over sternotomy scar, I do not suspect ACS/cardiac etiology of chest pain -Currently at baseline at rest but exacerbated with coughing -Was seen by wound care who reported no acute concerns -Chest CT did not indicate infectious etiology for continued pain. -Continue cyclobenzaprine - Tylenol changed to scheduled on 04/21. - Added back home oxycodone 5mg PRN with BID frequency. History of mitral valve replacement with mechanical valve: Goal INR is 2.5-3.5, currently at 2.1 -Continue warfarin -Monitor PT/INR HTN: Chronic, stable -Continue losartan, metoprolol -BP elevation may occur 2/2 systemic steroids, will monitor Chronic systolic heart failure: -Not in exacerbation, pt with euvolemic status -08/2022 TTE- EF 35-40% -BNP pending -Continue home furosemide 80 mg daily Atrial Fibrillation: -Currently in NSR, rate-controlled -Continue metoprolol and warfarin Tobacco use disorder: -Currently on nicotine patches outpatient, continue while admitted T2DM: -Hold home metformin and Trulicity -Will need to monitor for hyperglycemia with steroid treatment -Lantus 5u BID, SSI SMITA: -HS CPAP GERD: -Continue BID pantoprazole DVT: Warfarin F/E/N: DM2, heart healthy FULL CODE Dispo: Medical/surgical (2) Elevated troponin: (3) Chronic chest pain: (4) History of mitral valve replacement with mechanical valve: (5) Hypertension: (6) Chronic systolic (congestive) heart failure: (7) Atrial fibrillation: (8) Tobacco abuse: (9) Diabetes mellitus, type 2: (10) Obstructive sleep apnea on CPAP: (11) GERD (gastroesophageal reflux disease): Admission and Anticipated Discharge Date Admission Date: April 18, 2023 Subjective Patient seen at the bedside this morning saying that her chronic chest pain is the most prominent factor in her troubles. The pain, again, is across the chest but mostly on left side. She states that the ice helps with the keloid pain however the tylenol alone isn't quite helping totally for the pain. She states that she has a lot of mucous that she finds hard to bring up. Denies any fevers, chills, nausea. Review of Systems Review of Systems: See HPI Physical Exam Constitutional: WD/WN, vitals as above Eyes: PERRL, conjunctivae normal, anicteric sclerae Respiratory: Diffusely mildly course with end expiratory wheeze. Not in acute distress. Cardiovascular: RRR, no murmur, no edema Gastrointestinal (Abdomen): normal bowel sounds, soft, nontender, no hepatosplenomegaly Psychiatric: A+Ox3, euthymic affect Results & Data Results & Data Vital Signs (Past 12 Hours) Vital Signs Temp Pulse Pulse Pulse Resp BP BP 04/22/23 02:50 17 04/22/23 02:50 87 17 04/22/23 02:00 36.5 C 69 13 143/87 H 04/21/23 23:20 36.4 C L 70 21 121/55 L 04/21/23 23:00 63 04/21/23 22:32 77 24 04/21/23 22:32 77 24 04/21/23 20:06 77 18 04/21/23 19:25 36.6 C 73 20 110/63 04/21/23 19:26 Pulse Ox O2 Del Method FiO2 04/22/23 02:50 98 21 04/22/23 02:50 CPAP 21 04/22/23 02:00 99 Room Air 06/30/23 23:20 95 CPAP 04/21/23 23:00 04/21/23 22:32 99 21 04/21/23 22:32 99 CPAP 21 04/21/23 20:06 98 Room Air 04/21/23 19:25 98 CPAP 04/21/23 19:26 CPAP Resident Activity Tracking Resident Involvement: Resident Care Provided Care Provided: Adult Hospital Medicine (5) Hypertension Hypertension type: essential hypertension Qualified Code(s): I10 - Essential (primary) hypertension (9) Diabetes mellitus, type 2 Diabetes mellitus complication status: with hyperglycemia Diabetes mellitus termite exterminator insulin use: with halfway use Qualified Code(s): E11.65 - Type 2 diabetes mellitus with hyperglycemia; Z79.4 - termite exterminator (current) use of insulin
[2023-04-22] MEDS: BUDESONIDE 0.5 MG/2 ML VIAL (PULMICORT) NEB SCH (07:31)
[2023-04-22] MEDS: FORMOTEROL 20 MCG/2 ML VIAL NEB SCH (07:31)
[2023-04-22] MEDS ORDERED: oxyCODONE HCL IR 5 MG TAB (IMMEDIATE RELEASE) PO PRN (08:48)
[2023-04-22] MEDS ORDERED: LANTUS PER UNIT CHARGE SQ SCH (09:00)
--- NOTE | 2023-04-22 09:04 | Pulmonology Progress Note ---
Date of Service April 22, 2023 Assessment & Plan (1) Parainfluenza infection: (2) Asthma exacerbation with COPD (chronic obstructive pulmonary disease): Plan Impression: 57-year-old female with severe cough and bronchospasm associated with parainfluenza infection. She continues to show clinical improvement. Recommendations: 1. Parainfluenza: No therapy available to treat this infection. Supportive care. 2. Asthma exacerbation secondary to viral infection: Continue supportive management. Continue nebulized budesonide, Perforomist, and DuoNeb scheduled. Continue prednisone for now. Complete 5-day course of oral azithromycin 3. Recommend the patient use CPAP nightly at 12 cm H2O. Pt can bring in her home machine to use if needed. She can use it during the day when sleeping or if she feels she needs it for cough suppression Patient appears to be approaching her baseline. All of her therapies can potentially be administered in the outpatient setting. If the patient is comfortable going home, she can go home on her oral prednisone course and nebulized and follow-up with her primary care provider. Feel free to contact us with questions or concerns. Admission and Anticipated Discharge Date Admission Date: April 18, 2023 Subjective Patient appears to be doing well clinically. She was seen using her CPAP this morning. She feels that her wheezing is better. She is coughing and expectorating some phlegm. She overall feels improved Review of Systems Review of Systems: All systems reviewed & are unremarkable except as noted in Subjective Physical Exam Constitutional: WD/WN, vitals as above Neck: trachea midline, no thyromegaly Respiratory: normal respiratory effort, lungs clear to auscultation no respiratory distress, no labored breathing, no cough and not tachypneic Auscultation: + rhonchi and + wheezes; no crackles Cardiovascular: RRR, no murmur, no edema Gastrointestinal (Abdomen): normal bowel sounds, soft, nontender, no hepatosplenomegaly Musculoskeletal: Extremities: extremities normal to inspection Skin: no rashes, warm and dry Lymphatic: no cervical lymphadenopathy Results & Data Results & Data Vital Signs (Past 12 Hours) Vital Signs Temp Pulse Pulse Pulse Resp BP BP 04/22/23 08:12 36.3 C L 72 20 134/78 04/22/23 07:32 70 18 04/22/23 02:50 17 04/22/23 02:50 87 17 04/22/23 02:00 36.5 C 69 13 143/87 H 04/21/23 23:20 36.4 C L 70 21 121/55 L 04/21/23 23:00 63 04/21/23 22:32 77 24 04/21/23 22:32 77 24 Pulse Ox O2 Del Method FiO2 04/22/23 08:12 96 CPAP 04/22/23 07:32 98 Room Air 04/22/23 02:50 98 21 04/22/23 02:50 CPAP 21 04/22/23 02:00 99 Room Air 04/21/23 23:20 95 CPAP 04/21/23 23:00 04/21/23 22:32 99 21 04/21/23 22:32 99 CPAP 21 Laboratory Results 04/22/23 05:49 04/22/23 05:49 Diagnostic Findings No new imaging PG Care Time/CCT Total # of Minutes Spent Total Time Spent with Patient: Total time spent is greater than 50% in coordination of care (as documented) at patient's floor/unit and/or counseling patient: Coding Level of Care Code 61504 SUB INP/OBS CARE 2/35MIN Diagnoses Parainfluenza infection B34.8 Asthma exacerbation with COPD (chronic obstructive pulmonary disease) J44.1; J45.901
[2023-04-22] MEDS: BENZONATATE 100 MG CAPSULE PO SCH ×2 (09:05→14:16)
[2023-04-22] MEDS: ASPIRIN 81 MG ECTAB PO SCH (09:05)
[2023-04-22] MEDS: PANTOprazole 40 MG TAB PO SCH (09:05)
[2023-04-22] MEDS: POTASSIUM CHLORIDE CRTAB 20 MEQ TABCR PO SCH (09:06)
[2023-04-22] MEDS: METOPROLOL SUCC 25MG EXT REL TAB PO SCH (09:06)
[2023-04-22] MEDS: CYCLOBENZAPRINE HCL 5 MG TAB PO PRN (09:06)
[2023-04-22] MEDS: AZITHROMYCIN 250 MG TAB PO SCH (09:06)
[2023-04-22] MEDS: FUROSEMIDE 80 MG TAB PO SCH (09:06)
[2023-04-22] MEDS: NICOTINE 21 MG/24 HR TDSY TD SCH (09:06)
[2023-04-22] MEDS: LOSARTAN POTASSIUM 25 MG TAB PO SCH (09:07)
[2023-04-22] MEDS: predniSONE 20 MG TAB PO SCH (09:07)
[2023-04-22] MEDS: INSULIN HUMAN NPH SC SCH (09:15)
[2023-04-22] MEDS: INSULIN ASPART PER UNIT CHARGE SC SCH ×2 (09:16→12:46)
[2023-04-22] MEDS: LIDOCAINE 5% 1 PATCH TD SCH (09:18)
[2023-04-22] MEDS: PREGABALIN 50 MG CAP PO SCH ×2 (09:19→14:16)
[2023-04-22] MEDS: CHLORHEXIDINE GLUCONATE 0.12% 480 ML MT SCH (09:26)
--- NOTE | 2023-04-22 15:29 | Discharge Summary ---
Date of Service April 22, 2023 Admission HPI Per Admitting Provider Deb Lara is a 57 year old female with a PMH significant for HFrEF (LVEF of 35-40%), mitral valve replacement on Warfarin, asthma-COPD overlap, history of pulmonary embolism, DMII, and HTN who presented to the [facility] ED via EMS from her PCPs office due to URI symptoms and increased WOB. Per chart review, the patient returned from a cruise on 04/03, started to develop URI symptoms on 04/10. Since 04/10 the patient has had significant SOB and wheezing, and has been needing to use her prn DuoNebs more frequently without improvement of symptoms. In the ED, vitals were stable. Labs were significant for an INR of 2.2, VBG pH of 7.50, mag of 1.6, initial high sen trop of 18.9, and full respiratory biofire positive for Parainfluenza virus 3. Chest xray was read as "Cardiomegaly with no active disease in the chest." and ECG shows NSR without acute ST segment or T-wave changes. Per the ED staff, the patient was given an albuterol treatment and IV solu-medrol in route. Prior to admission the the patient was given 324 mg Aspirin, 2 albuterol treatments, and a dose of Azithromycin. At the time of the exam the patient was sitting in bed in respiratory distress. She has a severe cough, audible wheezing without stridor, and is unable to speak in full sentences. She confirms that she has been having progressive SOB, cough with increased sputum production, and wheezing since 04/10. She has been using her scheduled Breo-Ellipta and prn DuoNebs without relief. Her cough has been so severe over the past 24 hours that she has been unable to take her oral medications. She has chronic chest pain at her sternal surgical site which has been exacerbated with her cough, the patient does not radiate other than her chronic pain location. She does not have sputum production at baseline but has been having clear-yellow sputum production over the past few days. The DuoNeb treatments she received in the ED gave her minimal relief. She denies recent fever, abd pain, nausea, vomiting, diarrhea, dysuria, hematuria, melena, LE swelling, and recent trauma. She is no longer smoking and currently using nicotine patches. She is a full code and wishes for her to make medical decisions for her if she cannot make them herself. Please refer to Dr. Moise's attestation for any changes to the treatment plan Admission Exam Per Admitting Provider Physical Exam: General:In acute distress, older than stated age, ill-appearing but non- toxic HEENT:Normocephalic, atraumatic, no scleral icterus, pupils around round, symmetrical, and reactive to light, dry mucus membranes, trachea midline, no thyromegaly Chest/Pulm:Sternotomy scar appears well-healed, tender to palpation over the sternotomy site and left chest (at baseline), mild-moderate respiratory distress, unable to speak in full sentences, severe cough, symmetrical chest expansion, expiratory wheezing noted throughout Cardiac:RRR, no murmurs noted Abdomen:Negative for ascites and bruising, normoactive bowel sounds, soft, non-tender to palpation throughout Musculoskeletal:Symmetrical and without signs of acute trauma, upper and lower extremities with full ROM, no atrophy, spasticity, or flaccidity Extremities:Radial, dorsalis pedis, and posterior tibial pulses are intact and symmetrical, no edema noted in the BL LE's Skin:Warm, dry, no rashes , lesions, or scars noted Neuro:Alert and oriented to person, place, month, year, and president, no focal defects, no tremors noted Psych:In mild distress due to respiratory status but pleasant and cooperative during the exam Principal Diagnosis Parainfluenza asthma/copd exacerbation Discharge Exam Constitutional WD/WN, vitals as above Respiratory Mildly course to auscultation bilaterally, end expiratory wheeze present. Cardiovascular RRR, no murmur, no edema Gastrointestinal (Abdomen) normal bowel sounds, soft, nontender, no hepatosplenomegaly Psychiatric A+Ox3, euthymic affect Discharge Data Allergies Allergy/AdvReac Type Severity Reaction Status Date / Time No Known Allergies Allergy Verified 04/18/23 10:01 Consultations 04/18/23 13:37 ED Decision to Admit Stat 04/18/23 14:38 Consult Pulmonology Routine Ordered Studies 04/18/23 14:56 CT chest diagnostic wo con Stat IMPRESSION: 1. There are tree in bud airspace opacities in the left lower lobe with associated diffuse peribronchial thickening. This is likely on an infectious/inflammatory basis. Clinical correlation will be required. A follow- up chest CT in 3-6 months time is recommended to document complete resolution. 2. There is no lobar consolidation or pleural effusion. 3. Mild emphysema. 4. A 1.7 cm low-attenuation nodule is seen in the left lobe of the thyroid gland. If not previously performed, a nonemergent thyroid ultrasound is recommended in follow-up. 5. Additional findings as above. Hospital Course (1) Asthma exacerbation with COPD (chronic obstructive pulmonary disease): 57 year old female w/ PmHx HFrEF (LVEF of 35-40%), mitral valve replacement on Warfarin, asthma-COPD overlap, history of pulmonary embolism, DMII, and HTN admitted for asthma/COPD exacerbation due to parainfluenza virus. Asthma exacerbation with COPD: -Asthma and COPD exacerbation due to acute parainfluenza virus infection -Hemodynamically stable and stable on RA at time of discharge -S/P albuterol and 125 mg IV Solu-Medrol by EMS and 2 DuoNebs; and azithromycin in the ED, 2gm Mg -Pulmonary consulted and following, supportive care with following regimen while in hospital -Prednisone 40 mg daily -Perforomist BID -Budesonide BD -Azithromycin 250 mg daily -Cough suppression- benzonatate TID, guaifenesin/codeine PRN -Duoneb PRN -Continued patients Azithromycin and prednisone for additional day to make 5 days. Prednisone will be tapered with script that was sent (10mg increments over 2 days each). -Sent script for codeine/guaifenesin 1 week duration until can see PCP. Elevated troponin: -Troponin on admission: 18.9 > 16.8 -No acute ECG changes -Patient without acute changes in her chronic chest pain from her sternotomy last year for mitral valve replacement Chronic chest pain: -Superficial pain over sternotomy scar, I do not suspect ACS/cardiac etiology of chest pain -Currently at baseline at rest but exacerbated with coughing -Was seen by wound care who reported no acute concerns -Chest CT did not indicate infectious etiology for continued pain. -Sent patient with script for 2 days of oxycodone 5mg PRN BID to get through weekend, patient will need to call PCP office where opioid contract is initiated for full refill. History of mitral valve replacement with mechanical valve: Goal INR is 2.5-3.5, INR 2.2 -Patient will need INR rechecked with anticoagulation clinic. (2) Elevated troponin: (3) Chronic chest pain: (4) History of mitral valve replacement with mechanical valve: (5) Hypertension: (6) Chronic systolic (congestive) heart failure: (7) Atrial fibrillation: (8) Tobacco abuse: (9) Diabetes mellitus, type 2: (10) Obstructive sleep apnea on CPAP: (11) GERD (gastroesophageal reflux disease): Total Time Total Time Spent Total Time Spent (In Minutes): Please see attending attestation. Discharge Plan Discharge Items Patient Disposition: Home - Self-Care Reason For Visit: SHORTNESS OF BREATH Discharge Diagnosis: Parainfluenza asthma/copd exacerbation Activity: Per Instructions section Non-emergency contact: Primary Care Provider Call non-emergency contact if: your symptoms worsen, your pain is worsening and your temperature is above 101 Follow-up/Referrals: James Hendrix DO [Primary Care Provider] - Diet: Regular Addtl Attending Provider Instructions: A discharge summary will be sent to your primary care physician to ensure continuity of care. You came into the hospital for difficulty with breathing. You were found to have a respiratory virus, known as parainfluenza virus, that was causing you difficulties. Over the course of your hospital stay you were given steroids, azithromycin, and breathing treatments and had good improvement. At this point you are ready to continue treatment at home. Please continue breathing treatments at home and continue one more day of azithromycin 250mg and one more day of prednisone 40mg before tapering down. Follow-up: * You should be seen by your primary physician within the next week. Medications: Your medication list has been reviewed and reconciled upon discharge to ensure accuracy and continuity of care. An updated list of all your medications is included with your hospital discharge paperwork. Please review this list closely, and make note of any changes. * A script for prednisone and tapering the prednisone will be sent to your pharmacy. Please take 40mg tomorrow morning, followed by 30mg daily for 2 days followed by 20mg for two days followed by 10mg for two days. * A script for Azithromycin will be sent to your pharmacy. Please take one more day of the Azithromycin 250mg to complete the course. * A script for oxycodone 5mg to take twice a day as needed will be sent to your pharmacy for the chronic chest pain. Due to an narcotic contract being initiated with your outpatient doctor for the oxycodone we can only provide you with enough oxycodone to get through the weekend and you will need to call your outpatient office Monday morning to request a refill. * A script for codeine/guaifenisin will be sent to your pharmacy to take for your cough. For the prednisone taperin tablets on day 1 from discharge from hospital 3 tablets each day on days 2 and 3 2 tablets each day on days 4 and 5 1 tablet each day on days 6 and 7 Please be sure to monitor your glucose levels at home if possible while on the steroid, if your sugars go above 250 please notify your primary care office. CONTACT YOUR PRIMARY CARE PROVIDER if you experience any of the following: * Fevers or shaking chills * Shortness of breath not relieved by inhalers, fainting * Sudden abdominal distension not relieved by catheterization. * Difficulty following your treatment plan, or difficulty taking medications CALL 911 OR GO TO THE EMERGENCY DEPARTMENT if you experience any of the following: * Sudden, severe abdominal pain or nausea/vomiting * Severe chest pain, or chest pain that radiates (moves) to your jaw or arm * Sudden, severe shortness of breath or difficulty breathing It was was our pleasure taking care of you here at [facility] . Thank you for allowing us to participate in your care. Pending Studies at Discharge: No Stand-Alone Forms: [facility], Smoking Cessation Medications and DC Order Prescriptions: New azithromycin 250 mg Tablet 250 mg PO QAM 1 Days Qty: 1 0RF prednisone 10 mg tablet 10 mg PO DIRECTED 7 Days Qty: 7 0RF Rx Instructions: 4 tablets on day 1 from discharge from hospital 3 tablets each day on days 2 and 3 2 tablets each day on days 4 and 5 1 tablet each day on days 6 and 7 benzonatate 100 mg Capsule 100 mg PO TID Qty: 10 0RF codeine-guaifenesin 10-100 mg/5 mL Liquid 10 ml PO Q6H PRN (Reason: Cough) Qty: 100 0RF oxycodone 5 mg Tablet 5 mg PO BID PRN (Reason: Pain, Severe) Qty: 4 0RF Continued pregabalin 50 mg capsule 50 mg PO TID Qty: 90 2RF aspirin [Ecotrin Low Strength] 81 mg tablet,delayed release (DR/EC) 81 mg PO DAILY warfarin 5 mg tablet See Rx Instructions .ROUTE .COMPLEX Rx Instructions: 5 mg MWF and 7.5 mg x 4 days; albuterol sulfate 90 mcg/actuation HFA aerosol inhaler 2 puff INHALATION Q6 PRN (Reason: Shortness Of Breath Or Wheezing) Qty: 18 5RF Atrovent HFA 17 mcg/actuation HFA aerosol inhaler 2 puff INHALATION TID Qty: 12.9 5RF Proctofoam HC 1-1 % foam 1 applic RI BID PRN (Reason: hemorrhoids) Qty: 10 0RF losartan 25 mg tablet 25 mg PO QAM Qty: 60 5RF (DME) Hospital Bed Homecare [facility] See Rx Instructions .Route Qty: 1 0RF Rx Instructions: As directed-HOSPITAL BED, LENGTH OF NEED 99 MONTHS, DX CODE; Z98.890 atorvastatin 40 mg tablet 40 mg PO QPM diclofenac sodium [Arthritis Pain (diclofenac)] 1 % gel 4 g topical QID PRN (Reason: Pain) potassium chloride 10 mEq capsule, extended release 20 meq PO DAILY 30 Days Qty: 120 5RF nitroglycerin 0.4 mg tablet, sublingual 0.4 mg sublingual Q5M PRN (Reason: Chest Pain) Qty: 30 6RF Rx Instructions: do not exceed 3 doses per episode chlorhexidine gluconate 0.12 % mouthwash 15 ml buccal BID Qty: 118 0RF cyclobenzaprine 5 mg tablet 5 mg PO TID PRN (Reason: muscle spasm) Qty: 30 0RF Trulicity 0.75 mg/0.5 mL pen injector 0.75 mg subcut WK Qty: 2 0RF (DME) Bedside Commode Misc See Rx Instructions .Route Qty: 1 0RF Rx Instructions: As directed nicotine [Nicoderm CQ] 21 mg/24 hr patch 24 hour 21 mg transdermal QAM Qty: 30 0RF metformin 750 mg tablet extended release 24 hr 750 mg PO TID Qty: 90 3RF furosemide 40 mg tablet 80 mg PO QAM metoprolol succinate 25 mg tablet extended release 24 hr 25 mg PO QAM pantoprazole 40 mg tablet,delayed release (DR/EC) 40 mg PO [facility] fluticasone furoate-vilanterol [Breo Ellipta] 100-25 mcg/dose Blister With Device 1 inh INHALATION DAILY mupirocin 2 % ointment 1 applic topical TID Qty: 15 0RF ipratropium-albuterol 0.5 mg-3 mg(2.5 mg base)/3 mL solution for nebulization 3 ml NEB Q6H PRN (Reason: wheezing/SOB/cough) Qty: 180 4RF lidocaine 5 % adhesive patch,medicated 1 patch topical DAILY Qty: 30 0RF Rx Instructions: leave on most painful area for up to 12 hrs Discontinued oxycodone 5 mg tablet 5 mg PO TID PRN (Reason: pain) Qty: 15 0RF Discharge Orders: Discharge Order (Routine); Ordered 04/22/23 Ordered By: Bishop Price Admission Data Admit Date/Time: 04/18/23 14:44 Attending Provider: Kristen Castillo Admit Provider: Juanito Moise Primary Care Provider: James Hendrix Other Providers: Juanito oMise ; Bobo Zarate Other Interventions: Discharge Summary Assessment (RN) Last Done: 04/22/23 16:21 Supervising Physician Co-Signing Physician Notes Resident Physician Supervision Note: I independently interviewed and examined the patient and verified the duran history and physical, reviewed labs and image studies and agree with resident findings and care plan. Resident Activity Tracking Resident Involvement: Resident Care Provided Care Provided: Adult Hospital Medicine
[2023-04-22] MEDS: WARFARIN SOD 7.5 MG TAB PO SCH (16:33)
== END 2023-04-22 16:59 | disposition home or self-care (01) | DRG 191 ==
LOC: ED 11:07 → 4W 14:07 → SUATTDRO 14:07 → INTOOBSV 14:44 → 4W 16:19

== ENCOUNTER 2023-09-22 16:26 | Observation (INO) ==
--- NOTE | 2023-09-22 17:02 | XRay Report ---
XR chest 1V not portable CLINICAL HISTORY: Chest pain, nonspecific TECHNIQUE: Single frontal radiograph of the chest was obtained. Comparison: Comparison is made to chest radiograph 04/18/2023 FINDINGS: Median sternotomy wires are unchanged. Lobular prosthesis is seen. The lungs are clear. No evidence o f pleural effusion or pneumothorax. IMPRESSION: No acute chest disease. ACT 112: Negative or not required by law. Electronically signed by: Nickolas Horta M.D. 09/22/2023 5:00 PM
[2023-09-22 17:23] LABS: Basophils # (auto) 0.03 K/uL (0.00-0.20); Basophils % (auto) 0.3 %; Eosinophils # (auto) 0.14 K/uL (0.00-0.50); Eosinophils % (auto) 1.3 %; Hematocrit (blood only) 40.3 % (37.0-47.0); Hemoglobin 12.6 g/dl (12.0-16.0); Immature Granulocytes # (auto) 0.03 K/uL (0.01-0.20); Immature Granulocytes % (auto) 0.3 %; Lymphocytes # (auto) 4.28 K/uL (1.20-3.40); Lymphocytes % (auto) 39.8 %; Mean Corpuscular Hemoglobin 28.6 pg (25.0-34.0); Mean Corpuscular Hgb Conc 31.3 g/dL (32.0-36.0); Mean Corpuscular Volume 91.4 fL (80.0-100.0); Mean Platelet Volume 11.8 fL (9.4-12.4); Monocytes # (auto) 0.59 K/uL (0.11-0.59); Monocytes % (auto) 5.5 %; Neutrophils # (auto) 5.68 K/uL (1.40-6.50); Neutrophils % (auto) 52.8 %; Platelet Count 284 K/uL (130-400); RDW Coefficient of Variation 15.9 % (11.5-14.5); RDW Standard Deviation 52.8 fL (36.4-46.3); Red Blood Count 4.41 M/uL (4.20-5.40); White Blood Count 10.75 K/ul (4.8-10.8)
[2023-09-22 17:39] LABS: Alanine Aminotransferase 15 U/L (7-52); Albumin Globulin Ratio 1.2 (0.9-2); Albumin Level 4.1 gm/dl (3.4-5.0); Alkaline Phosphatase 115 U/L (34-104); Anion Gap 8 (3-11); Aspartate Aminotransferase 23 U/L (13-39); BUN Creatinine Ratio 22.5 (10-20); Bilirubin,Total 0.4 mg/dl (0.2-1.0); Blood Urea Nitrogen 23 mg/dl (6-23); Calcium 9.3 mg/dl (8.6-10.3); Carbon Dioxide 30 mmol/L (21-32); Chloride 105 mmol/L (98-107); Est GFR (African American) 70.2 ml/min; Est GFR (Non-African American) 60.6 ml/min; Globulin 3.5 gm/dl (2.5-4.0); Glucose 105 mg/dl (70-99(Fasting)); Sodium 143 mmol/L (136-145); Total Protein 7.6 gm/dl (6.0-8.3)
[2023-09-22 18:04] LABS: INR 3.5 (0.9-1.1); Partial Thromboplastin Ratio 1.5; Prothrombin Time 35.5 Seconds (9.0-12.0)
[2023-09-22 18:11] LABS: Partial Thromboplastin Time 41.6 Seconds (21.0-31.0)
[2023-09-22] MEDS ORDERED: ACETAMINOPHEN 1,000 MG/100 ML VIAL IV STA (20:44)
[2023-09-22] MEDS ORDERED: METHOCARBAMOL 500 MG TABLET PO STA (20:44)
[2023-09-22] MEDS ORDERED: MoRPHine SULFATE 4 MG/ML 1 ML CARP\\VIAL IV STA (20:44)
[2023-09-22] MEDS ORDERED: GABAPENTIN 100 MG CAP PO STA (20:44)
--- NOTE | 2023-09-22 21:43 | Emergency Department Note ---
Impression & Plan Chest pain, Abdominal pain, Back pain, Acute lumbar radiculopathy ED Provider Note ED Provider Note NAME: CYRUS BLACKWOOD AGE:57 SEX: Female : 1965 ARRIVES VIA: EMS INFORMANT: Patient ED PROVIDER(s): Juana Benavidez DO CHIEF COMPLAINT: abdominal pain, back pain, chest pain HPI: This is a 57 yo female who presents to the ER due to concern for worsening RUQ, right flank, and low back pain. Patient concerned as she has had chronic pain at her sternotomy site after her operation last year for a valve replacement. She states "she didn't heal correctly". She states she was seen by neurology and then by pain mgmt. She states she had a series of injections into her scar which gave her worsening pain along her rib edge on the right which began to move into her back. She states she has chronic back pain and has DDD but that is worse also and radiates down her right leg and gives her paresthesias. She denies recent URI, fevers/chills, change in urine or stools. She states she saw pain mgmt again and they plan to "burn her nerve" but that appointment isn't until November. She states she cannot move without pain. PAST MEDICAL HISTORY:See Below PAST SURGICAL HISTORY:See Below FAMILY HISTORY:See Below SOCIAL HISTORY:See Below HOME MEDICATIONS:See Below ALLERGIES:See Below VITALS:See Below PHYSICAL EXAMINATION: GENERAL: alert, well appearing, well nourished, no distress, non-toxic EYE EXAM: normal conjunctiva, PERRL and EOM's grossly intact OROPHARYNX: no exudate, no erythema, lips, buccal mucosa, and tongue normal and mucous membranes are moist NECK: supple, no nuchal rigidity, no adenopathy, non-tender LUNGS: Clear to auscultation. Normal chest wall mechanics, no w/r/r HEART: no murmurs, S1 normal and S2 normal, keloid over midline sternotomy scar which is hyperesthetic and tender with light touch ABDOMEN: abdomen soft, non-tender, normo-active bowel sounds, no masses, no rebound or guarding. BACK: Back is symmetrical on inspection and there is no deformity, no midline tenderness, no CVA tenderness. Pain with palpation along b/l paraspinal muscles in lumbar region SKIN: no rashes, petechiae, orbruising UPPER EXTREMITIES: upper extremities are grossly normal. FROM, nml pulses b/l. LOWER EXTREMITIES: No pitting edema. FROM LLE, RLE pain with ROM testing and altered subjective sensation per her report, nml pulses b/l. NEURO EXAM: Normal sensorium, cranial nerves II-XII grossly intact, normal speech, no facial droop,nogross weakness of arms, no gross weakness of legs. Gross sensation intact. No ataxia. Vital Signs: reviewed and remarkable Differential Diagnosis: neuropathy, medication adr, colitis, cholecystitis, lumbar radiculoapthy, sbo, pna, CRPS, as well as others were considered MEDICAL DECISION MAKING: THis is a 57 yo female who presents with acute on chronic pain despite evaluation and tx as an outpatient. Patient concerned as she states now with difficulty walking/performing adl's. VS stable and patient afebrile. Labs drawn and sent, IV established, EKG and CXR performed and interpreted at bedside, and patient placed on telemetry. She was sent for CT a/p and CT lumbar spine additionally due to concern for location of pain. She was given IVF, IV morphine, IV tylenol, gabapentin with improvement. Patient cannot take NSAIDS due to anticoagulation. She was unable to be transitioned to oral meds as oxycodone, IV decadron, and lidoderm path added and patient did not feel pain controlled that she could lay flat or walk. Case discussed with hospitalist for additional evaluation and mgmt. Consultation(s): 0202: Discussed with CONSUELO Florez hospitalist for additional evaluation and mgmt. ER Treatment Provided: See below Diagnostics Interpreted By Me: -ECG: rate 78, nml axis, nml intervals, nonspecific ST/T wave changes -Cardiac Monitoring: An order was placed for continuous cardiac monitoring. The monitor shows a rate of 70 with normal sinus rhythm. -Laboratory studies: As stated above and show below. -Imaging studies: X-ray Chest: A single view study of the chest was reviewed and was negative for cardiomegaly, focal infiltrate, effusion, pulmonary edema, or wide mediastinum. Sternotomy wires noted. Triage Nursing Note Reviewed Prior/Outside Records Reviewed Procedures: [] Critical Care: [] Past Med/Surg History Medical History (Updated 09/23/23 @ 16:07 by Kwaku Bedoya MD) Obstructive sleep apnea on CPAP Diabetes mellitus, type 2 Hyperlipidemia Lumbar facet joint syndrome Parainfluenza infection with pneumonia > resolved per pt Asthma exacerbation with COPD (chronic obstructive pulmonary disease) uses res inh approx 2x per week Postoperative keloid scar sternal Chronic systolic (congestive) heart failure CHF exacerbation Hyperglycemia due to type 2 diabetes mellitus Atrial fibrillation no pacer > med controlled per pt Tobacco abuse Dyspnea on exertion so severe pt is wheelchair bound (per [facility] record) Mitral valve insufficiency History of COVID-2020 Asthma-COPD overlap syndrome History of pulmonary embolism on warfarin > 2021 > no known cause Chronic diastolic congestive heart failure GERD (gastroesophageal reflux disease) Hx of coronary artery disease Chronic low back pain Vertigo CSF leak hx > resolved per pt Degeneration of cervical intervertebral disc External hemorrhoids Hemiplegic migraine Urinary incontinence Vitamin D deficiency Hypertension Vertebral artery stenosis Surgical History History of mitral valve replacement with mechanical valve S/P MVR (mitral valve repair) Aug 26 2022 > [place] History [facility]GEORGETTE[facility] report pt has severe mitral valve insufficiency History of hemorrhoidectomy (~2017) @ [facility] S/p tibial fracture open treatment of Fx with plate/screws, Left leg History of mandibular surgery S/P left knee arthroscopy History of bilateral tubal ligation Status post right foot surgery Facial fracture (2014) WITH RECONSTRUCTION History of esophagogastroduodenoscopy (EGD) History of colonoscopy History of heart artery stent X2 STENTS (2010) UNSURE OF KIND. NO STENT CARDS PER PT. History of cardiac cath X2 STENTS - (~2010, IN [place], [place]). NO STENTS - ([facility] @ ~2014) No stents ([facility] 05/11/2022) - Follows Nita BREEN Family History Mother Breast cancer, Onset Age: 64 Type 2 diabetes mellitus Father Diabetes Coronary heart disease Type 2 diabetes mellitus Myocardial infarction, Onset Age: 52 Family/Other Hypertension sibling Grandmother (Maternal) Cancer Grandfather (Maternal) Cancer Denies family history of Ovarian cancer Social History Smoking Status: Current every day smoker Tobacco Type: Cigarettes Age Started Using Tobacco: 13; Age Quit Using Tobacco: 56; packs per day: 0.5; Cigarettes Per Day: 3-7; Second Hand Exposure: No; Do You Dip or Chew Tobacco: No; Hx Alcohol Use: No Hx Substance Use: No Preferred Language: Pashto Communication Ability: Effective Visual Impairment: No Limitations Hearing Ability: Normal Milk Receiver Required: No Beliefs That Will Affect Care: None marital status: Current Living Situation: Spouse Current Living Situation Comment: Home with current occupational status: disabled How many Children do You have: 5 Feels Safe at Home: Yes Childhood Exposure to Second-Hand Smoke: No Diet: low salt caffeine: Yes (1/2 cup of coffee a day) during the past year weight has: remained stable Dental Care, Regularly: No Physical Activity Frequency: 1-2 Times per Week Seatbelt Use: always Sunscreen Use: No Assistive Devices: Cane, Glasses and Wheelchair Allergies Allergies Allergy/AdvReac Type Severity Reaction Status Date / Time No Known Allergies Allergy Verified 09/19/23 08:21 Home Meds Home Medications Medication Instructions Recorded Confirmed aspirin 81 mg tablet,delayed 81 mg PO QAM 07/24/23 09/22/23 release (Ecotrin Low Strength) fluticasone furoate 100 1 inh inhalation QAM 07/24/23 09/22/23 mcg-vilanterol 25 mcg/dose inhalation powder (Breo Ellipta) pantoprazole 40 mg tablet,delayed 40 mg PO PM 07/24/23 09/22/23 release potassium chloride 10 mEq 20 meq PO QAM 07/24/23 09/22/23 capsule,extended release Previous Rx's Medication Instructions Recorded Bedside Commode #1 ea 08/04/22 Hospital Bed Homecare #1 ea 08/12/22 ipratropium 0.5 mg-albuterol 3 mg 3 ml NEB Q6H PRN 01/22/23 (2.5 mg base)/3 mL nebulization wheezing/SOB/cough #180 mL soln albuterol sulfate 90 mcg/actuation 2 puff inhalation Q6 PRN Shortness 05/17/23 aerosol inhaler Of Breath Or Wheezing #18 grams hydrocortisone 1 %-pramoxine 1 % 1 applic MO BID PRN hemorrhoids 05/17/23 rectal foam (Proctofoam HC) #10 grams ipratropium bromide 17 2 puff inhalation TID #12.9 grams 05/17/23 mcg/actuation HFA aerosol inhaler (Atrovent HFA) losartan 25 mg tablet 25 mg PO QAM 90 days #90 tabs 05/17/23 metoprolol succinate 25 mg 25 mg PO QAM 90 days #90 tabs 05/17/23 tablet,extended release 24 hr atorvastatin 40 mg tablet 40 mg PO QPM 90 days #90 tabs 06/19/23 furosemide 40 mg tablet 80 mg (2 x 40 mg) PO QAM 90 days 06/19/23 #180 tabs pregabalin 150 mg capsule 150 mg PO TID 30 days #90 caps 07/07/23 rimegepant 75 mg disintegrating 75 mg PO DIRECTED PRN Migraine 07/07/23 tablet (Nurtec ODT) Headache #8 tabs blood-glucose meter (OneTouch #1 ea 07/13/23 Verio Flex Meter) lidocaine 5 % topical patch 1 patch topical DAILY #15 ea 07/16/23 (Lidoderm) blood sugar diagnostic (OneTouch #100 ea 07/27/23 Verio test strips) lancets 30 gauge (OneTouch #100 ea 07/27/23 UltraSoft 2 Lancet) nitroglycerin 0.4 mg sublingual 0.4 mg sublingual Q5M PRN Chest 08/09/23 tablet Pain #30 tabs Stair Langtry #1 ea 08/10/23 diclofenac sodium 1 % topical gel 4 g topical QID PRN Pain #100 grams 09/02/23 (Arthritis Pain (diclofenac)) cyclobenzaprine 5 mg tablet 5 mg PO DAILY PRN muscle spasm 30 09/07/23 days #10 tabs metformin 500 mg tablet 1,000 mg (2 x 500 mg) PO BID 90 09/12/23 days #360 tabs warfarin 5 mg tablet See Rx Instructions PO UD #260 tabs 09/18/23 dulaglutide 4.5 mg/0.5 mL 4.5 mg (0.5 mL) subcut .q7days 28 09/19/23 subcutaneous pen injector days #2 mL oxycodone 5 mg tablet 5 mg PO BID PRN Pain, Severe 30 09/19/23 days #30 tabs Results & Data (ED) Vital Signs Vital Signs - 24 hr 09/22/23 16:34 09/22/23 20:16 09/22/23 20:16 Temperature 36.0 C L Temperature Source Temporal Artery Scan Pulse Rate 85 Pulse Rhythm Regular Pulse Strength Normal Respiratory Rate 20 Respiratory Effort / Characteristics Non-Labored Spontaneous Respiratory Depth Normal Respiratory Pattern Regular Blood Pressure 99/60 L Blood Pressure Mean 73 Blood Pressure Position Sitting Pulse Oximetry 99 97 Oxygen Delivery Method Room Air Room Air Room Air Oxygen Flow Rate 0 Sepsis Recent Fever Within 48 Hours No Sepsis New/Unexplained Change in Mental Status No Sepsis Action Taken by Nursing No Action Required 09/22/23 20:27 09/22/23 20:27 09/22/23 20:30 Temperature Temperature Source Pulse Rate 68 68 Pulse Rhythm Pulse Strength Respiratory Rate 18 Respiratory Effort / Characteristics Respiratory Depth Respiratory Pattern Blood Pressure 112/50 L Blood Pressure Mean 58 Blood Pressure Position Pulse Oximetry Oxygen Delivery Method Oxygen Flow Rate Sepsis Recent Fever Within 48 Hours Sepsis New/Unexplained Change in Mental Status Sepsis Action Taken by Nursing 09/22/23 20:30 09/22/23 20:40 09/22/23 20:50 Temperature Temperature Source Pulse Rate 67 69 66 Pulse Rhythm Pulse Strength Respiratory Rate 20 15 18 Respiratory Effort / Characteristics Respiratory Depth Respiratory Pattern Blood Pressure Blood Pressure Mean Blood Pressure Position Pulse Oximetry Oxygen Delivery Method Oxygen Flow Rate Sepsis Recent Fever Within 48 Hours Sepsis New/Unexplained Change in Mental Status Sepsis Action Taken by Nursing 09/22/23 21:00 09/22/23 21:00 09/22/23 21:10 Temperature Temperature Source Pulse Rate 68 67 Pulse Rhythm Pulse Strength Respiratory Rate 14 18 Respiratory Effort / Characteristics Respiratory Depth Respiratory Pattern Blood Pressure 122/63 Blood Pressure Mean 95 Blood Pressure Position Pulse Oximetry Oxygen Delivery Method Oxygen Flow Rate Sepsis Recent Fever Within 48 Hours Sepsis New/Unexplained Change in Mental Status Sepsis Action Taken by Nursing 09/22/23 21:20 09/22/23 21:30 09/22/23 21:40 Temperature Temperature Source Pulse Rate 67 64 66 Pulse Rhythm Pulse Strength Respiratory Rate 23 20 23 Respiratory Effort / Characteristics Respiratory Depth Respiratory Pattern Blood Pressure Blood Pressure Mean Blood Pressure Position Pulse Oximetry Oxygen Delivery Method Oxygen Flow Rate Sepsis Recent Fever Within 48 Hours Sepsis New/Unexplained Change in Mental Status Sepsis Action Taken by Nursing 09/22/23 22:16 09/22/23 22:20 09/22/23 22:30 Temperature Temperature Source Pulse Rate 67 64 67 Pulse Rhythm Pulse Strength Respiratory Rate 21 18 24 Respiratory Effort / Characteristics Respiratory Depth Respiratory Pattern Blood Pressure Blood Pressure Mean Blood Pressure Position Pulse Oximetry Oxygen Delivery Method Oxygen Flow Rate Sepsis Recent Fever Within 48 Hours Sepsis New/Unexplained Change in Mental Status Sepsis Action Taken by Nursing 09/22/23 22:30 09/22/23 22:40 09/22/23 22:50 Temperature Temperature Source Pulse Rate 65 64 Pulse Rhythm Pulse Strength Respiratory Rate 17 18 Respiratory Effort / Characteristics Respiratory Depth Respiratory Pattern Blood Pressure 129/62 Blood Pressure Mean 76 Blood Pressure Position Pulse Oximetry Oxygen Delivery Method Oxygen Flow Rate Sepsis Recent Fever Within 48 Hours Sepsis New/Unexplained Change in Mental Status Sepsis Action Taken by Nursing 09/22/23 23:00 09/22/23 23:00 09/22/23 23:30 Temperature Temperature Source Pulse Rate 64 64 Pulse Rhythm Pulse Strength Respiratory Rate 14 17 Respiratory Effort / Characteristics Respiratory Depth Respiratory Pattern Blood Pressure 113/45 L 103/49 L Blood Pressure Mean 68 67 Blood Pressure Position Pulse Oximetry Oxygen Delivery Method Oxygen Flow Rate Sepsis Recent Fever Within 48 Hours Sepsis New/Unexplained Change in Mental Status Sepsis Action Taken by Nursing 09/23/23 00:00 09/23/23 00:42 09/23/23 01:00 Temperature Temperature Source Pulse Rate 64 70 67 Pulse Rhythm Pulse Strength Respiratory Rate 15 18 Respiratory Effort / Characteristics Respiratory Depth Respiratory Pattern Blood Pressure 93/48 L 106/34 L Blood Pressure Mean 63 58 Blood Pressure Position Pulse Oximetry Oxygen Delivery Method Oxygen Flow Rate Sepsis Recent Fever Within 48 Hours Sepsis New/Unexplained Change in Mental Status Sepsis Action Taken by Nursing 09/23/23 01:30 Temperature Temperature Source Pulse Rate 67 Pulse Rhythm Pulse Strength Respiratory Rate 15 Respiratory Effort / Characteristics Respiratory Depth Respiratory Pattern Blood Pressure 100/43 L Blood Pressure Mean 62 Blood Pressure Position Pulse Oximetry Oxygen Delivery Method Oxygen Flow Rate Sepsis Recent Fever Within 48 Hours Sepsis New/Unexplained Change in Mental Status Sepsis Action Taken by Nursing Laboratory Data 09/24/23 06:45 09/24/23 06:45 Lab Results 09/22/23 Range/Units 17:07 WBC 10.75 (4.8-10.8) K/ul RBC 4.41 (4.20-5.40) M/uL Hgb 12.6 (12.0-16.0) g/dl Hct 40.3 (37.0-47.0) % MCV 91.4 (80.0-100.0) fL MCH 28.6 (25.0-34.0) pg MCHC 31.3 L (32.0-36.0) g/dL RDW Std Deviation 52.8 H (36.4-46.3) fL RDW Coeff of Majo 15.9 H (11.5-14.5) % Plt Count 284 (130-400) K/uL MPV 11.8 (9.4-12.4) fL Immature Gran % (Auto) 0.3 % Neut % (Auto) 52.8 % Lymph % (Auto) 39.8 % [place] % (Auto) 5.5 % Eos % (Auto) 1.3 % Baso % (Auto) 0.3 % Neut # (Auto) 5.68 (1.40-6.50) K/uL Lymph # (Auto) 4.28 H (1.20-3.40) K/uL [place] # (Auto) 0.59 (0.11-0.59) K/uL Eos # (Auto) 0.14 (0.00-0.50) K/uL Baso # (Auto) 0.03 (0.00-0.20) K/uL Immature Gran # (Auto) 0.03 (0.01-0.20) K/uL PT 35.5 H (9.0-12.0) Seconds INR 3.5 H (0.9-1.1) APTT 41.6 H* (21.0-31.0) Seconds PTT Ratio 1.5 Sodium 143 (136-145) mmol/L Potassium 4.0 (3.5-5.1) mmol/L Chloride 105 (98-107) mmol/L Carbon Dioxide 30 (21-32) mmol/L Anion Gap 8 (3-11) BUN 23 (6-23) mg/dl Creatinine 1.02 (0.6-1.2) mg/dl Est Cr Clr Drug Dosing Not Reportable Est GFR ( Amer) 70.2 ml/min Est GFR (Non-Af Amer) 60.6 ml/min BUN/Creatinine Ratio 22.5 H (10-20) Glucose 105 H (70-99(Fasting)) mg/dl Calcium 9.3 (8.6-10.3) mg/dl Total Bilirubin 0.4 (0.2-1.0) mg/dl AST 23 (13-39) U/L ALT 15 (7-52) U/L Alkaline Phosphatase 115 H (34-104) U/L Troponin I High Sens 9.0 (0-14) pg/ml Total Protein 7.6 (6.0-8.3) gm/dl Albumin 4.1 (3.4-5.0) gm/dl Globulin 3.5 (2.5-4.0) gm/dl Albumin/Globulin Ratio 1.2 (0.9-2) Administered Medications Acetaminophen (Acetaminophen 500 Mg Tab) 1,000 mg PO Q8 [facility] Stop: 10/23/23 05:59 Last Admin: 09/24/23 06:33 Dose: 1,000 mg Documented By: Admin: 09/23/23 21:40 Dose: 1,000 mg Documented By: Admin: 09/23/23 13:36 Dose: 1,000 mg Documented By: Admin: 09/23/23 05:56 Dose: 1,000 mg Documented By: JAMISON Aspirin (Aspirin 81 Mg Ectab) 81 mg PO [facility] Stop: 10/23/23 08:59 Last Admin: 09/24/23 08:11 Dose: 81 mg Documented By: Admin: 09/23/23 08:59 Dose: 81 mg Documented By: COLIN Atorvastatin Calcium (Atorvastatin 40 Mg Tab) 40 mg PO QPM [facility] Stop: 10/23/23 20:59 Last Admin: 09/23/23 21:40 Dose: 40 mg Documented By: LV Cyclobenzaprine HCl (Cyclobenzaprine Hcl 5 Mg Tab) 5 mg PO BID PRN PRN Reason: spasm Stop: 10/23/23 05:11 Last Admin: 09/24/23 04:50 Dose: 5 mg Documented By: Admin: 09/23/23 21:40 Dose: 5 mg Documented By: Admin: 09/23/23 19:33 Dose: 5 mg Documented By: LV Fluticasone/Vilanterol (Fluticasone/Vilanterol 100/25mcg 14 Puffs/Inhaler) 1 puffs INH [facility] Stop: 10/23/23 08:59 Last Admin: 09/24/23 09:42 Dose: 1 puffs Documented By: Admin: 09/23/23 09:00 Dose: 1 puffs Documented By: COLIN Insulin Aspart (Insulin Aspart Per Unit Charge) 0 units SC ACHS [facility] Stop: 10/23/23 07:29 Last Admin: 09/24/23 08:40 Dose: 4 units Documented By: LV Co-signed By: COLIN Admin: 09/23/23 21:39 Dose: 6 units Documented By: LV Co-signed By: ESEQUIEL Admin: 09/23/23 17:31 Dose: 5 units Documented By: COLIN Co-signed By: AMS Admin: 09/23/23 13:36 Dose: 9 units Documented By: COLIN Co-signed By: JEY Admin: 09/23/23 09:01 Dose: 6 units Documented By: COLIN Co-signed By: JEY Insulin Glargine (Lantus Per Unit Charge) 7 units SQ BID [facility] Stop: 10/23/23 08:59 Last Admin: 09/24/23 08:40 Dose: 7 units Documented By: LV Co-signed By: COLIN Admin: 09/23/23 21:39 Dose: 7 units Documented By: LV Co-signed By: ESEQUIEL Admin: 09/23/23 09:02 Dose: 7 units Documented By: COLIN Co-signed By: JEY Ipratropium Piercy (Ipratropium Piercy Hfa Inhaler) 2 puffs INH TIDR [facility] Stop: 10/23/23 06:59 Last Admin: 09/24/23 12:11 Dose: 2 puffs Documented By: ESEQUIEL(2) Admin: 09/24/23 08:14 Dose: 2 puffs Documented By: [id number] Admin: 09/23/23 19:54 Dose: 2 puffs Documented By: Admin: 09/23/23 12:52 Dose: 2 puffs Documented By: [id number] Admin: 09/23/23 08:24 Dose: 2 puffs Documented By: ESEQUIEL(2) Lidocaine (Lidocaine 5% 1 Patch) 1 patch TD DAILY@0900 [facility] Stop: 10/24/23 08:59 Last Admin: 09/24/23 08:12 Dose: 1 patch Documented By: LV Losartan Potassium (Losartan Potassium 25 Mg Tab) 25 mg PO QAM [facility] Stop: 10/23/23 08:59 Last Admin: 09/24/23 08:12 Dose: 25 mg Documented By: Admin: 09/23/23 08:59 Dose: 25 mg Documented By: COLIN Metoprolol Succinate (Metoprolol Succ 25mg Ext Rel Tab) 25 mg PO [facility] Stop: 10/23/23 08:59 Last Admin: 09/24/23 08:11 Dose: Not Given Documented By: Admin: 09/23/23 09:00 Dose: 25 mg Documented By: COLIN Miscellaneous (Remove Nicoderm Patch) 1 each N/A DAILY@0859 [facility] Stop: 10/23/23 08:58 Last Admin: 09/24/23 08:12 Dose: 1 each Documented By: Admin: 09/23/23 09:15 Dose: 1 each Documented By: COLIN Morphine Sulfate (Morphine Sulfate 2 Mg/Ml Carp) 2 mg IV Q4H PRN PRN Reason: Breakthrough Pain Stop: 10/07/23 05:11 Last Admin: 09/24/23 10:26 Dose: 2 mg Documented By: LV Nicotine (Nicotine 21 Mg/24 Hr Tdsy) 21 mg TD [facility] Stop: 10/23/23 08:59 Last Admin: 09/24/23 08:12 Dose: 21 mg Documented By: Admin: 09/23/23 09:01 Dose: 21 mg Documented By: COLIN Oxycodone HCl (Oxycodone Hcl Ir 5 Mg Tab (Immediate Release)) 5 mg PO QID PRN PRN Reason: Pain Stop: 10/07/23 12:14 Last Admin: 09/24/23 04:50 Dose: 5 mg Documented By: Admin: 09/23/23 22:05 Dose: 5 mg Documented By: Admin: 09/23/23 14:51 Dose: 5 mg Documented By: COLIN Pantoprazole Sodium (Pantoprazole 40 Mg Tab) 40 mg PO PM [facility] Stop: 10/23/23 20:59 Last Admin: 09/23/23 21:40 Dose: 40 mg Documented By: LV Polyethylene Glycol (Polyethylene (Miralax) 17 Gm Pack) 17 gm PO DAILY [facility] Stop: 10/23/23 08:59 Last Admin: 09/24/23 08:11 Dose: 17 gm Documented By: Admin: 09/23/23 09:01 Dose: 17 gm Documented By: COLIN Pregabalin (Pregabalin 150 Mg Cap) 150 mg PO TID [facility] Stop: 10/23/23 08:59 Last Admin: 09/24/23 08:11 Dose: 150 mg Documented By: Admin: 09/23/23 21:40 Dose: 150 mg Documented By: Admin: 09/23/23 13:36 Dose: 150 mg Documented By: Admin: 09/23/23 09:11 Dose: 150 mg Documented By: COLIN Warfarin Sodium (Warfarin Sod 5 Mg Tab) 15 mg PO DAILY@1600 [facility] Stop: 10/23/23 15:59 Last Admin: 09/23/23 16:18 Dose: 15 mg Documented By: COLIN Discontinued Medications Dexamethasone Sodium Phosphate (DexamethasonePf 10 Mg/Ml Vial) 10 mg IV NOW ONE Stop: 09/23/23 00:40 Last Admin: 09/23/23 00:50 Dose: 10 mg Documented By: MAMIE [facility] ([facility] 80 Mg [facility]) [facility]: 10/23/23 08:59 Last Admin: 09/23/23 08:59 Dose: 80 mg Documented By: COLIN Gabapentin (Gabapentin 100 Mg Cap) 100 mg PO NOW STA Stop: 09/22/23 20:45 Last Admin: 09/22/23 22:02 Dose: 100 mg Documented By: CATARINO Acetaminophen (Ofirmev) 1,000 mg in 100 mls @ 400 mls/hr IV NOW STA Stop: 09/22/23 20:58 Last Infusion: 09/22/23 21:54 Dose: Infused Documented By: Admin: 09/22/23 20:55 Dose: 400 mls/hr Documented By: CATARINO Ioversol (Optiray 320 500ml) 82 ml IV ONCE ONE Stop: 09/22/23 22:08 Last Admin: 09/22/23 22:09 Dose: 82 ml Documented By: KADY Lidocaine (Lidocaine 5% 1 Patch) 1 patch TD NOW STA Stop: 09/23/23 00:40 Last Admin: 09/23/23 00:50 Dose: 1 patch Documented By: MAMIE Methocarbamol (Methocarbamol 500 Mg Tablet) 500 mg PO NOW STA Stop: 09/22/23 20:45 Last Admin: 09/22/23 22:02 Dose: 500 mg Documented By: CATARINO Miscellaneous (Remove Lidoderm Patch) 1 each N/A TODAY@1229 ONE Stop: 09/23/23 12:30 Last Admin: 09/23/23 12:51 Dose: 1 each Documented By: COLIN Morphine Sulfate (Morphine Sulfate 4 Mg/Ml 1 Ml Carp\\Vial) 4 mg IV NOW STA Stop: 09/22/23 20:45 Last Admin: 09/22/23 20:55 Dose: 4 mg Documented By: CATARINO Morphine Sulfate (Morphine Sulfate 4 Mg/Ml 1 Ml Carp\\Vial) 4 mg IV NOW STA Stop: 09/23/23 01:57 Last Admin: 09/23/23 02:40 Dose: 4 mg Documented By: MAMIE Morphine Sulfate (Morphine Sulfate 4 Mg/Ml 1 Ml Carp\\Vial) 4 mg IV Q3H PRN PRN Reason: Pain (6,7,8,9,10) Stop: 10/07/23 05:11 Last Admin: 09/23/23 09:11 Dose: 4 mg Documented By: Admin: 09/23/23 05:59 Dose: 4 mg Documented By: JAMISON Oxycodone HCl (Oxycodone Hcl Ir 5 Mg Tab (Immediate Release)) 5 mg PO NOW STA Stop: 09/23/23 00:41 Last Admin: 09/23/23 00:49 Dose: 5 mg Documented By: MAMIE Warfarin Sodium (Warfarin Sod 5 Mg Tab) 15 mg PO NOW ONE Stop: 09/23/23 00:40 Last Admin: 09/23/23 05:53 Dose: 15 mg Documented By: JAMISON Imaging Data Radiologist's Impression: Chest X-Ray 09/22/23 16:39 XR chest 1V not portable CLINICAL HISTORY: Chest pain, nonspecific TECHNIQUE: Single frontal radiograph of the chest was obtained. Comparison: Comparison is made to chest radiograph 04/18/2023 FINDINGS: Median sternotomy wires are unchanged. Lobular prosthesis is seen. The lungs are clear. No evidence of pleural effusion or pneumothorax. IMPRESSION: No acute chest disease. ACT 112: Negative or not required by law. Electronically signed by: Nickolas Horta M.D. 09/22/2023 5:00 PM Abdomen/Pelvis CT 09/22/23 20:46 Exam(s): CT ABDOMEN + PELVIS With Contrast IV Amt: 82 ml opti 320 EXAM: CT Abdomen and Pelvis With Intravenous Contrast CLINICAL HISTORY: Reason for exam: RUQ/right flank pain. TECHNIQUE: Axial computed tomography images of the abdomen and pelvis with intravenous contrast. CTDI is 28.14 mGy and DLP is 1352.6 mGy-cm. Automated exposure control was utilized for the study. A dose lowering technique was utilized adhering to the principles of ALARA. CONTRAST: Patient received 82 ml opti 320 of IV contrast COMPARISON: No relevant prior studies available. FINDINGS: Lung bases: Unremarkable. No mass. No consolidation. ABDOMEN: Liver: Unremarkable. No mass. Gallbladder and bile ducts: Unremarkable. No calcified stones. No ductal dilation. Pancreas: Unremarkable. No mass. No ductal dilation. Spleen: Unremarkable. No splenomegaly. Adrenals: Unremarkable. No mass. Kidneys and ureters: Unremarkable. No solid mass. No hydronephrosis. Stomach and bowel: Diverticulosis, without acute diverticulitis. No small bowel obstruction. No free intraperitoneal air. PELVIS: Appendix: Normal appendix. Bladder: Unremarkable. No mass. Reproductive: Unremarkable as visualized. ABDOMEN and PELVIS: Intraperitoneal space: Unremarkable. No free air. No significant fluid collection. Bones/joints: Degenerative changes of the spine. No acute fracture. No dislocation. Soft tissues: Unremarkable. Vasculature: Atherosclerotic changes of the aorta. No abdominal aortic aneurysm. Lymph nodes: Unremarkable. No enlarged lymph nodes. IMPRESSION: No acute findings in the abdomen or pelvis. Electronically signed by: Rich Fallon MD 09/22/23 23:[address] 09/22/23 20:46 Exam(s): CT L SPINE With Contrast IV Amt: 82 ml opti 320 EXAM: CT Lumbar Spine With Intravenous Contrast CLINICAL HISTORY: Reason for exam: low back pain with radiculopathy. TECHNIQUE: Axial computed tomography images of the lumbar spine with intravenous contrast. CTDI is 28.14 mGy and DLP is 1345.04 mGy-cm. Automated exposure control was utilized for the study. A dose lowering technique was utilized adhering to the principles of ALARA. CONTRAST: Patient received 82 ml opti 320 of IV contrast COMPARISON: No relevant prior studies available. FINDINGS: The vertebral body heights are maintained. The lumbar lordosis is preserved. There is no spondylolisthesis. The posterior elements are maintained, without evidence of acute fracture. The pedicles are intact. Multilevel lumbar spondylosis and degenerative disc disease. IMPRESSION: No acute fracture or subluxation of the lumbar spine. Electronically signed by: Rich Fallon MD 09/22/23 22:52 PM Discharge Plan Visit Data Chief Complaint: Back Injury/Pain Stated Complaint: LOWER BACK PAIN ED Provider: Juana Benavidez Discharge Problem: Chest pain, Abdominal pain, Back pain, Acute lumbar radiculopathy Patient Disposition: Admitted As Inpatient Discharge Instructions Interventions: ED Discharge Assessment Last Done: 09/23/23 04:05
[2023-09-22] MEDS ORDERED: OPTIRAY 320 500ml IV ONE (22:07)
--- NOTE | 2023-09-22 22:54 | CT Scan Report ---
Exam(s): CT L SPINE With Contrast IV Amt: 82 ml opti 320 EXAM: CT Lumbar Spine With Intravenous Contrast CLINICAL HISTORY: Reason for exam: low back pain with radiculopathy. TECHNIQUE: Axial computed tomography images of the lumbar spine with intravenous contrast. CTDI is 28.14 mGy and DLP is 1345.04 mGy-cm. Automated exposure control was utilized for the study. A dose lowering technique was utilized adhering to the principles of ALARA. CONTRAST: Patient received 82 ml opti 320 of IV contrast COMPARISON: No relevant prior studies available. FINDINGS: The vertebral body heights are maintained. The lumbar lordosis is preserved. There is no spondylolisthesis. The posterior elements are maintained, without evidence of acute fracture. The pedicles are intact. Multilevel lumbar spondylosis and degenerative disc disease. IMPRESSION: No acute fracture or subluxation of the lumbar spine. Electronically signed by: Rich Fallon MD 09/22/23 22:52 PM
--- NOTE | 2023-09-22 23:22 | CT Scan Report ---
Exam(s): CT ABDOMEN + PELVIS With Contrast IV Amt: 82 ml opti 320 EXAM: CT Abdomen and Pelvis With Intravenous Contrast CLINICAL HISTORY: Reason for exam: RUQ/right flank pain. TECHNIQUE: Axial computed tomography images of the abdomen and pelvis with intravenous contrast. CTDI is 28.14 mGy and DLP is 1352.6 mGy-cm. Automated exposure control was utilized for the study. A dose lowering technique was utilized adhering to the principles of ALARA. CONTRAST: Patient received 82 ml opti 320 of IV contrast COMPARISON: No relevant prior studies available. FINDINGS: Lung bases: Unremarkable. No mass. No consolidation. ABDOMEN: Liver: Unremarkable. No mass. Gallbladder and bile ducts: Unremarkable. No calcified stones. No ductal dilation. Pancreas: Unremarkable. No mass. No ductal dilation. Spleen: Unremarkable. No splenomegaly. Adrenals: Unremarkable. No mass. Kidneys and ureters: Unremarkable. No solid mass. No hydronephrosis. Stomach and bowel: Diverticulosis, without acute diverticulitis. No small bowel obstruction. No free intraperitoneal air. PELVIS: Appendix: Normal appendix. Bladder: Unremarkable. No mass. Reproductive: Unremarkable as visualized. ABDOMEN and PELVIS: Intraperitoneal space: Unremarkable. No free air. No significant fluid collection. Bones/joints: Degenerative changes of the spine. No acute fracture. No dislocation. Soft tissues: Unremarkable. Vasculature: Atherosclerotic changes of the aorta. No abdominal aortic aneurysm. Lymph nodes: Unremarkable. No enlarged lymph nodes. IMPRESSION: No acute findings in the abdomen or pelvis. Electronically signed by: Rich Fallon MD 09/22/23 23:20 PM
[2023-09-23] MEDS ORDERED: WARFARIN SOD 10 MG TAB PO ONE (00:39)
[2023-09-23] MEDS ORDERED: LIDOCAINE 5% 1 PATCH TD STA (00:39)
[2023-09-23] MEDS ORDERED: WARFARIN SOD 5 MG TAB PO ONE ×2 (00:39→03:39)
[2023-09-23] MEDS ORDERED: dexAMETHasone**PF** 10 MG/ML VIAL IV ONE (00:39)
[2023-09-23] MEDS ORDERED: oxyCODONE HCL IR 5 MG TAB (IMMEDIATE RELEASE) PO STA (00:40)
[2023-09-23] MEDS ORDERED: MoRPHine SULFATE 4 MG/ML 1 ML CARP\\VIAL IV STA (01:56)
--- NOTE | 2023-09-23 02:59 | History & Physical Report ---
Date of Service September 23, 2023 Assessment & Plan (1) Acute lumbar radiculopathy: Plan: 57yo female presenting with acute lumbar pain, radiculopathy. No neurologic deficits. -Observation to medical -Tylenol 1gm PO TID -Lidoderm patch -Morphine PRN -Continue Lyrica 150mg po TID -Diclofenac topical -Flexeril 5mg po BID PRN (2) Type 2 diabetes mellitus with obesity: Plan: Overall un-controlled. Last LyiW4R=3.5 on 08/10/23 -Novolog sliding scale -Lanuts 7u BID (3) Obstructive sleep apnea on CPAP: Plan: Chronic. Stable. Patient is compliant with CPAP -CPAP qHS (4) GERD (gastroesophageal reflux disease): Plan: Chronic. Stable -Continue Protonix 40mg po daily (5) Hyperlipidemia: Plan: Chronic. Stable -Continue Atorvastatin 40mg po daily History of Present Illness Chief Complaint: back pain Primary Care Provider: Sugar Weber MD Deb Thomson is a 57yo female with history of COPD/Asthma, SMITA on CPAP, HTN, HLP, AF and DM as well as mechanical mitral valve on Coumadin anticoagulation presenting from home with right lumbar and sciatic pain. Patient reports she has had ongoing pain at her sternotomy site and bandlike pain around her chest since having her valve replacement. She follows with Pain Management and has had injections in her keloids for attempted pain control. She reports not much relief with this. She is to have her nerves ablation with Pain Management in the future. She has also had pain and buckling in her right knee. She has fallen in the past but nothing recent. She most recently began developing lumbar pain on the right side over the last three weeks. Over the last 3-4 days she has developed right buttock pain with radiation down the posterior thigh to the knee. She has had some difficulty with ambulation due to pain. She was able to sit upright several days ago but now has too much discomfort in any position other than left lateral recumbent. she has been taking Oxycodone 5mg po BID at home with no relief. She denies trauma. No complaints of bowel or bladder involvement. No additional complaints such as fever, chills, cough, SOB, abdominal pain, nausea, vomiting, diarrhea ER Course: Morphine 4mg IV x 2 Tylenol 1gm IV Gabapentin 100mg Methocarbamol 500mg Oxycodone 5mg PO Dexamethasone 10mg IV Lidoderm patch Allergies Allergy/AdvReac Type Severity Reaction Status Date / Time No Known Allergies Allergy Verified 09/19/23 08:21 Home Medications Medication Instructions Recorded Confirmed Type Bedside Commode #1 ea 08/04/22 09/19/23 Rx Hospital Bed Homecare #1 ea 08/12/22 09/19/23 Rx ipratropium 0.5 mg-albuterol 3 mg 3 ml NEB Q6H PRN 01/22/23 09/22/23 Rx (2.5 mg base)/3 mL nebulization wheezing/SOB/cough #180 mL soln albuterol sulfate 90 mcg/actuation 2 puff inhalation Q6 PRN Shortness 05/17/23 09/22/23 Rx aerosol inhaler Of Breath Or Wheezing #18 grams hydrocortisone 1 %-pramoxine 1 % 1 applic KS BID PRN hemorrhoids 05/17/23 09/22/23 Rx rectal foam (Proctofoam HC) #10 grams ipratropium bromide 17 2 puff inhalation TID #12.9 grams 05/17/23 09/22/23 Rx mcg/actuation HFA aerosol inhaler (Atrovent HFA) losartan 25 mg tablet 25 mg PO QAM 90 days #90 tabs 05/17/23 09/22/23 Rx metoprolol succinate 25 mg 25 mg PO QAM 90 days #90 tabs 05/17/23 09/22/23 Rx tablet,extended release 24 hr atorvastatin 40 mg tablet 40 mg PO QPM 90 days #90 tabs 06/19/23 09/22/23 Rx furosemide 40 mg tablet 80 mg (2 x 40 mg) PO QAM 90 days 06/19/23 09/22/23 Rx #180 tabs pregabalin 150 mg capsule 150 mg PO TID 30 days #90 caps 07/07/23 09/22/23 Rx rimegepant 75 mg disintegrating 75 mg PO DIRECTED PRN Migraine 07/07/23 09/22/23 Rx tablet (Nurtec ODT) Headache #8 tabs blood-glucose meter (OneTouch #1 ea 07/13/23 09/19/23 Rx Verio Flex Meter) lidocaine 5 % topical patch 1 patch topical DAILY #15 ea 07/16/23 09/22/23 Rx (Lidoderm) aspirin 81 mg tablet,delayed 81 mg PO QAM 07/24/23 09/22/23 History release (Ecotrin Low Strength) fluticasone furoate 100 1 inh inhalation QAM 07/24/23 09/22/23 History mcg-vilanterol 25 mcg/dose inhalation powder (Breo Ellipta) pantoprazole 40 mg tablet,delayed 40 mg PO PM 07/24/23 09/22/23 History release potassium chloride 10 mEq 20 meq PO QAM 07/24/23 09/22/23 History capsule,extended release blood sugar diagnostic (OneTouch #100 ea 07/27/23 09/19/23 Rx Verio test strips) lancets 30 gauge (OneTouch #100 ea 07/27/23 09/19/23 Rx UltraSoft 2 Lancet) nitroglycerin 0.4 mg sublingual 0.4 mg sublingual Q5M PRN Chest 08/09/23 09/22/23 Rx tablet Pain #30 tabs Stair [place] #1 ea 08/10/23 09/19/23 Rx diclofenac sodium 1 % topical gel 4 g topical QID PRN Pain #100 grams 09/02/23 09/22/23 Rx (Arthritis Pain (diclofenac)) cyclobenzaprine 5 mg tablet 5 mg PO DAILY PRN muscle spasm 30 09/07/23 09/22/23 Rx days #10 tabs metformin 500 mg tablet 1,000 mg (2 x 500 mg) PO BID 90 09/12/23 09/22/23 Rx days #360 tabs warfarin 5 mg tablet See Rx Instructions PO UD #260 tabs 09/18/23 09/22/23 Rx dulaglutide 4.5 mg/0.5 mL 4.5 mg (0.5 mL) subcut .q7days 28 09/19/23 09/22/23 Rx subcutaneous pen injector days #2 mL oxycodone 5 mg tablet 5 mg PO BID PRN Pain, Severe 30 09/19/23 09/22/23 Rx days #30 tabs Past Med/Surg History Medical History (Updated 09/23/23 @ 03:54 by Eve Livingston DO) Obstructive sleep apnea on CPAP Diabetes mellitus, type 2 Hyperlipidemia Lumbar facet joint syndrome Parainfluenza infection with pneumonia > resolved per pt Asthma exacerbation with COPD (chronic obstructive pulmonary disease) uses res inh approx 2x per week Postoperative keloid scar sternal Chronic systolic (congestive) heart failure CHF exacerbation Hyperglycemia due to type 2 diabetes mellitus Atrial fibrillation no pacer > med controlled per pt Tobacco abuse Dyspnea on exertion so severe pt is wheelchair bound (per [facility] record) Mitral valve insufficiency History of COVID-2020 Asthma-COPD overlap syndrome History of pulmonary embolism on warfarin > 2021 > no known cause Chronic diastolic congestive heart failure GERD (gastroesophageal reflux disease) Hx of coronary artery disease Chronic low back pain Vertigo CSF leak hx > resolved per pt Degeneration of cervical intervertebral disc External hemorrhoids Hemiplegic migraine Urinary incontinence Vitamin D deficiency Hypertension Vertebral artery stenosis Surgical History History of mitral valve replacement with mechanical valve S/P MVR (mitral valve repair) Aug 26 2022 > [place] History of [facility]TE[facility]per report pt has severe mitral valve insufficiency History of hemorrhoidectomy (~2017) @ [facility] S/p tibial fracture open treatment of Fx with plate/screws, Left leg History of mandibular surgery S/P left knee arthroscopy History of bilateral tubal ligation Status post right foot surgery Facial fracture (2014) WITH RECONSTRUCTION History of esophagogastroduodenoscopy (EGD) History of colonoscopy History of heart artery stent X2 STENTS (2010) UNSURE OF KIND. NO STENT CARDS PER PT. History of cardiac cath X2 STENTS - (~2010, IN [place], [place]). NO STENTS - ([facility] @ ~2014) No stents ([facility] 05/11/2022) - Follows Nita BREEN Family History Mother Breast cancer, Onset Age: 64 Type 2 diabetes mellitus Father Diabetes Coronary heart disease Type 2 diabetes mellitus Myocardial infarction, Onset Age: 52 Family/Other Hypertension sibling Grandmother (Maternal) Cancer Grandfather (Maternal) Cancer Denies family history of Ovarian cancer Social History Smoking Status: Current every day smoker Tobacco Type: Cigarettes Age Started Using Tobacco: 13; Age Quit Using Tobacco: 56; packs per day: 0.5; Cigarettes Per Day: No cig's today, Is trying to quit; Second Hand Exposure: No; Do You Dip or Chew Tobacco: No; Hx Alcohol Use: No Hx Substance Use: No Preferred Language: Kazakh Communication Ability: Effective Visual Impairment: No Limitations Hearing Ability: Normal Implementation Consultant Required: No Beliefs That Will Affect Care: None marital status: Current Living Situation: Spouse Current Living Situation Comment: Home with current occupational status: disabled How many Children do You have: 5 Feels Safe at Home: Yes Childhood Exposure to Second-Hand Smoke: No Diet: low salt caffeine: Yes (1/2 cup of coffee a day) during the past year weight has: remained stable Dental Care, Regularly: No Physical Activity Frequency: 1-2 Times per Week Seatbelt Use: always Sunscreen Use: No Assistive Devices: Cane, CPAP, Glasses, Nebulizer, Walker and Wheelchair Review of Systems Review of Systems: All systems reviewed & are unremarkable except as noted in HPI & below Physical Exam Physical Exam: General: patient resting comfortably, NAD, non-toxic in appearance, AA&O x 4 Skin: warm, dry, intact, no rashes or lesions HEENT: NC/AT, PERRL, EOMI, anicteric sclera, conjunctiva without injection, external ear normal to inspection and nontender, nares patent, moist mucus membranes, dentition intact, no oropharyngeal lesions, neck supple, trachea midline, no LAD, no thyromegaly, no JVD Heart: +S1/S2, regular, no m/r/g Lungs: equal air entry bilaterally, no rales/rhonchi, diffuse end-expiratory wheezing Abd: +BS, soft, NT/ND, no masses/organomegaly/ascites Ext: warm, 2+ pulses in UE/LE bilaterally, no clubbing/cyanosis or edema Neuro: nonfocal, patient AA&O x 4, speech intact, no facial droop, moving all extremities on command with equal strength 5/5 Acute pain and sensitivity with palpation of right lumbar region and buttock. Some muscular tension and warmth noted. Results & Data Results & Data Vital Signs (Past 12 Hours) Vital Signs Temp Pulse Resp BP Pulse Ox O2 Del Method O2 Flow Rate 09/23/23 01:30 67 15 100/43 L 09/23/23 01:00 67 18 106/34 L 09/23/23 00:42 70 12/02/23 00:00 64 15 93/48 L 09/22/23 23:30 64 17 103/49 L 09/22/23 23:00 64 14 09/22/23 23:00 113/45 L 09/22/23 22:50 64 18 09/22/23 22:40 65 17 09/22/23 22:30 129/62 09/22/23 22:30 67 24 09/22/23 22:20 64 18 09/22/23 22:16 67 21 09/22/23 21:40 66 23 09/22/23 21:30 64 20 09/22/23 21:20 67 23 09/22/23 21:10 67 18 09/22/23 21:00 122/63 09/22/23 21:00 68 14 09/22/23 20:50 66 18 09/22/23 20:40 69 15 09/22/23 20:30 67 20 09/22/23 20:30 112/50 L 09/22/23 20:27 68 18 09/22/23 20:27 68 09/22/23 20:16 Room Air 09/22/23 20:16 97 Room Air 0 09/22/23 16:34 36.0 C L 85 20 99/60 L 99 Room Air Laboratory Results Laboratory Results WBC 10.75 K/ul (4.8-10.8) 09/22/23 17:07 RBC 4.41 M/uL (4.20-5.40) 09/22/23 17:07 Hgb 12.6 g/dl (12.0-16.0) 09/22/23 17:07 Hct 40.3 % (37.0-47.0) 09/22/23 17:07 MCV 91.4 fL (80.0-100.0) 09/22/23 17:07 MCH 28.6 pg (25.0-34.0) 09/22/23 17:07 MCHC 31.3 g/dL (32.0-36.0) L 09/22/23 17:07 RDW Std Deviation 52.8 fL (36.4-46.3) H 09/22/23 17:07 RDW Coeff of Majo 15.9 % (11.5-14.5) H 09/22/23 17:07 Plt Count 284 K/uL (130-400) 09/22/23 17:07 MPV 11.8 fL (9.4-12.4) 09/22/23 17:07 Immature Gran % (Auto) 0.3 % 09/22/23 17:07 Neut % (Auto) 52.8 % 09/22/23 17:07 Lymph % (Auto) 39.8 % 09/22/23 17:07 Meade % (Auto) 5.5 % 09/22/23 17:07 Eos % (Auto) 1.3 % 09/22/23 17:07 Baso % (Auto) 0.3 % 09/22/23 17:07 Neut # (Auto) 5.68 K/uL (1.40-6.50) 09/22/23 17:07 Lymph # (Auto) 4.28 K/uL (1.20-3.40) H 09/22/23 17:07 Meade # (Auto) 0.59 K/uL (0.11-0.59) 09/22/23 17:07 Eos # (Auto) 0.14 K/uL (0.00-0.50) 09/22/23 17:07 Baso # (Auto) 0.03 K/uL (0.00-0.20) 09/22/23 17:07 Immature Gran # (Auto) 0.03 K/uL (0.01-0.20) 09/22/23 17:07 PT 35.5 Seconds (9.0-12.0) H 09/22/23 17:07 INR 3.5 (0.9-1.1) H 09/22/23 17:07 APTT 41.6 Seconds (21.0-31.0) H* 09/22/23 17:07 PTT Ratio 1.5 09/22/23 17:07 Sodium 143 mmol/L (136-145) 09/22/23 17:07 Potassium 4.0 mmol/L (3.5-5.1) 09/22/23 17:07 Chloride 105 mmol/L (98-107) 09/22/23 17:07 Carbon Dioxide 30 mmol/L (21-32) 09/22/23 17:07 Anion Gap 8 (3-11) 09/22/23 17:07 BUN 23 mg/dl (6-23) 09/22/23 17:07 Creatinine 1.02 mg/dl (0.6-1.2) 09/22/23 17:07 Est Cr Clr Drug Dosing Not Reportable 09/22/23 17:07 Est GFR ( Amer) 70.2 ml/min 09/22/23 17:07 Est GFR (Non-Af Amer) 60.6 ml/min 09/22/23 17:07 BUN/Creatinine Ratio 22.5 (10-20) H 09/22/23 17:07 Glucose 105 mg/dl (70-99(Fasting)) H 09/22/23 17:07 Calcium 9.3 mg/dl (8.6-10.3) 09/22/23 17:07 Total Bilirubin 0.4 mg/dl (0.2-1.0) 09/22/23 17:07 AST 23 U/L (13-39) 09/22/23 17:07 ALT 15 U/L (7-52) 09/22/23 17:07 Alkaline Phosphatase 115 U/L (34-104) H 09/22/23 17:07 Troponin I High Sens 9.0 pg/ml (0-14) 09/22/23 17:07 Total Protein 7.6 gm/dl (6.0-8.3) 09/22/23 17:07 Albumin 4.1 gm/dl (3.4-5.0) 09/22/23 17:07 Globulin 3.5 gm/dl (2.5-4.0) 09/22/23 17:07 Albumin/Globulin Ratio 1.2 (0.9-2) 09/22/23 17:07 Impressions Chest X-Ray 09/22/23 16:39 XR chest 1V not portable CLINICAL HISTORY: Chest pain, nonspecific TECHNIQUE: Single frontal radiograph of the chest was obtained. Comparison: Comparison is made to chest radiograph 04/18/2023 FINDINGS: Median sternotomy wires are unchanged. Lobular prosthesis is seen. The lungs are clear. No evidence of pleural effusion or pneumothorax. IMPRESSION: No acute chest disease. ACT 112: Negative or not required by law. Electronically signed by: Nickolas Horta M.D. 09/22/2023 5:00 PM Abdomen/Pelvis CT 09/22/23 20:46 Exam(s): CT ABDOMEN + PELVIS With Contrast IV Amt: 82 ml opti 320 EXAM: CT Abdomen and Pelvis With Intravenous Contrast CLINICAL HISTORY: Reason for exam: RUQ/right flank pain. TECHNIQUE: Axial computed tomography images of the abdomen and pelvis with intravenous contrast. CTDI is 28.14 mGy and DLP is 1352.6 mGy-cm. Automated exposure control was utilized for the study. A dose lowering technique was utilized adhering to the principles of ALARA. CONTRAST: Patient received 82 ml opti 320 of IV contrast COMPARISON: No relevant prior studies available. FINDINGS: Lung bases: Unremarkable. No mass. No consolidation. ABDOMEN: Liver: Unremarkable. No mass. Gallbladder and bile ducts: Unremarkable. No calcified stones. No ductal dilation. Pancreas: Unremarkable. No mass. No ductal dilation. Spleen: Unremarkable. No splenomegaly. Adrenals: Unremarkable. No mass. Kidneys and ureters: Unremarkable. No solid mass. No hydronephrosis. Stomach and bowel: Diverticulosis, without acute diverticulitis. No small bowel obstruction. No free intraperitoneal air. PELVIS: Appendix: Normal appendix. Bladder: Unremarkable. No mass. Reproductive: Unremarkable as visualized. ABDOMEN and PELVIS: Intraperitoneal space: Unremarkable. No free air. No significant fluid collection. Bones/joints: Degenerative changes of the spine. No acute fracture. No dislocation. Soft tissues: Unremarkable. Vasculature: Atherosclerotic changes of the aorta. No abdominal aortic aneurysm. Lymph nodes: Unremarkable. No enlarged lymph nodes. IMPRESSION: No acute findings in the abdomen or pelvis. Electronically signed by: Rich Fallon MD 09/22/23 23:[address] 09/22/23 20:46 Exam(s): CT L SPINE With Contrast IV Amt: 82 ml opti 320 EXAM: CT Lumbar Spine With Intravenous Contrast CLINICAL HISTORY: Reason for exam: low back pain with radiculopathy. TECHNIQUE: Axial computed tomography images of the lumbar spine with intravenous contrast. CTDI is 28.14 mGy and DLP is 1345.04 mGy-cm. Automated exposure control was utilized for the study. A dose lowering technique was utilized adhering to the principles of ALARA. CONTRAST: Patient received 82 ml opti 320 of IV contrast COMPARISON: No relevant prior studies available. FINDINGS: The vertebral body heights are maintained. The lumbar lordosis is preserved. There is no spondylolisthesis. The posterior elements are maintained, without evidence of acute fracture. The pedicles are intact. Multilevel lumbar spondylosis and degenerative disc disease. IMPRESSION: No acute fracture or subluxation of the lumbar spine. Electronically signed by: Rich Fallon MD 09/22/23 22:52 PM PG Care Time/CCT Total # of Minutes Spent Total Time Spent with Patient: Total time spent is greater than 50% in coordination of care (as documented) at patient's floor/unit and/or counseling patient: Coding Level of Care Code 75488 INT INP/OBS CARE 3/75MIN Diagnoses Acute lumbar radiculopathy M54.16 Type 2 diabetes mellitus with obesity E11.69; E66.9 Obstructive sleep apnea on CPAP G47.33; Z99.89 GERD (gastroesophageal reflux disease) K21.9 Hyperlipidemia, unspecified hyperlipidemia type E78.5 Hyperlipidemia type: unspecified (5) Hyperlipidemia Hyperlipidemia type: unspecified Qualified Code(s): E78.5 - Hyperlipidemia, unspecified
[2023-09-23] MEDS ORDERED: MoRPHine SULFATE 2 MG/ML CARP IV PRN (05:12)
[2023-09-23] MEDS ORDERED: ONDANSETRON INJ 2 MG/ML 2 ML VIAL IV PRN (05:12)
[2023-09-23] MEDS ORDERED: CARBOHYDRATES FOR HYPOGLYCEMIA PO PRN (05:12)
[2023-09-23] MEDS ORDERED: GLUCOSE 40% GEL 15 GM TUBE PO PRN (05:12)
[2023-09-23] MEDS ORDERED: ALBUT/IPRATROP 3MG/0.5MG NEB 3 ML VIAL NEB PRN (05:12)
[2023-09-23] MEDS ORDERED: ALBUTEROL HFA 8 GM INHALER INH PRN (05:12)
[2023-09-23] MEDS ORDERED: GLUCAGON FOR INJ 1 MG VIAL SQ PRN (05:12)
[2023-09-23] MEDS ORDERED: DICLOFENAC SOD 1% GEL 100 GM TUBE EXT PRN (05:12)
[2023-09-23] MEDS ORDERED: DEXTROSE 50% 50 ML SYRINGE IV PRN (05:12)
[2023-09-23] MEDS ORDERED: GLUCOSE 10 TAB/TUBE PO PRN (05:12)
[2023-09-23] MEDS: ACETAMINOPHEN 500 MG TAB PO SCH ×3 (05:56→21:40)
[2023-09-23] MEDS: MoRPHine SULFATE 4 MG/ML 1 ML CARP\\VIAL IV PRN ×2 (05:59→09:11)
--- NOTE | 2023-09-23 07:42 | Hospitalist Progress Note ---
Date of Service September 23, 2023 Assessment & Plan (1) Acute lumbar radiculopathy: (2) Diabetes mellitus, type 2: (3) History of mitral valve replacement with mechanical valve: (4) Morbid obesity due to excess calories: (5) Knee pain, right: Plan Acute lumbar radiculopathy 57yo female presenting with acute lumbar pain, radiculopathy. No neurologic deficits. -Observation to medical -Tylenol 1gm PO TID -Morphine PRN (4 --> 2 g Q4h) due to transitioning to oxycodone, 5 mg, PO, QID -Continue Lyrica 150mg po TID -Flexeril 5mg po BID PRN -Lidoderm patch -Diclofenac topical - Patient says she has nerve ablation therapy appt scheduled for 12/15 T2DM, with obesity Overall un-controlled. Last [id number] on 08/10/23 -Novolog sliding scale -Lanuts 7u BID Obstructive sleep apnea on CPAP Chronic. Stable. Patient is compliant with CPAP -CPAP qHS GERD Chronic. Stable -Continue Protonix 40mg po daily Hyperlipidemia Chronic. Stable -Continue Atorvastatin 40mg po daily Admission and Anticipated Discharge Date Admission Date: September 23, 2023 Supervising Physician Co-Signing Physician Notes Attending attestation Pt seen and examined in concert with Dr. Bedoya. In agreement with the documented findings as noted in the resident documentation with any exceptions or additions as noted here. Reports waxing/waning pain based on position/with activity with max of 7/10 presently with 4mg morphine. On examination, S1/S2 nl RRR no MCG. CTAB. Abd NT/ND BS+ve VS: 173/65, 71, 14, 36.5, 98% RA Data: WBC 6.73, Hgb 12, INR 3.4 Intractable lower back pain with radicular symptoms - continue lyrica, flexeril, topical lidocaine, topical diclofenac and TID APAP. Change to oxycodone 5mg q6hr PRN with additional 2mg morphine q4h PRN for addtl breakthrough Chronic anticoagulation w/ goal of 2.5 - 3.5 - within INR goal, monitor Else see resident documentation as noted. Subjective [Chief Complaint: back pain Primary Care Provider: Sugar Weber MD] Deb Thomson is a 57 yo F with PMHx of COPD/Asthma, SMITA on CPAP, HTN, HLP, AF and T2DM as well as mechanical mitral valve on Coumadin anticoagulation presenting from home with right lumbar and sciatic pain. Patient reports she has had ongoing pain at her sternotomy site and bandlike pain around her chest since having her valve replacement. She follows with Pain Management and has had injections in her keloids for attempted pain control. Reports little pain relief with this. Scheduled/plans to have nerve ablation with Pain Management in the future. She has also had pain and buckling in her right knee. She has fallen in the past but nothing recent. She most recently began developing lumbar pain on the right side over the last three weeks. Over the last 3-4 days she has developed right buttock pain with radiation down the posterior thigh to the knee. She has had some difficulty with ambulation due to pain. She was able to sit upright several days ago but now has too much discomfort in any position other than left lateral recumbent. she has been taking Oxycodone 5mg po BID at home with no relief. She denies trauma. No complaints of bowel or bladder involvement. No additional complaints such as fever, chills, cough, SOB, abdominal pain, nausea, vomiting, diarrhea ER Course: Morphine 4mg IV x 2 Tylenol 1gm IV Gabapentin 100mg Methocarbamol 500mg Oxycodone 5mg PO Dexamethasone 10mg IV Lidoderm patch Review of Systems Constitutional: no fever, no chills and no weakness Respiratory: no cough and no dyspnea Cardiovascular: no chest pain and no palpitations Gastrointestinal: no nausea, no vomiting, no constipation and no diarrhea/loose stools Genitourinary: no dysuria and no urinary frequency Musculoskeletal: + back pain and + joint pain Physical Exam Constitutional: WD/WN, vitals as above Respiratory: normal respiratory effort, lungs clear to auscultation Cardiovascular: RRR, no murmur, no edema Gastrointestinal (Abdomen): normal bowel sounds, soft, nontender, no hepatosplenomegaly Musculoskeletal: Knee: + joint line tenderness; knee normal to inspection, no effusion and normal ROM of knee right knee Results & Data Results & Data Vital Signs (Past 12 Hours) Vital Signs Temp Pulse Pulse Resp BP BP Pulse Ox 09/23/23 05:00 36.6 C 65 18 128/55 L 94 09/23/23 04:40 09/23/23 03:31 66 13 118/45 L 09/23/23 03:00 66 24 09/23/23 02:30 72 22 09/23/23 01:30 67 15 100/43 L 09/23/23 01:00 67 18 106/34 L 09/23/23 00:42 70 09/23/23 00:00 64 15 93/48 L 09/22/23 23:30 64 17 103/49 L 09/22/23 23:00 64 14 09/22/23 23:00 113/45 L 09/22/23 22:50 64 18 09/22/23 22:40 65 17 09/22/23 22:30 129/62 09/22/23 22:30 67 24 09/22/23 22:20 64 18 09/22/23 22:16 67 21 09/22/23 21:40 66 23 09/22/23 21:30 64 20 09/22/23 21:20 67 23 09/22/23 21:10 67 18 09/22/23 21:00 122/63 09/22/23 21:00 68 14 09/22/23 20:50 66 18 09/22/23 20:40 69 15 09/22/23 20:30 67 20 09/22/23 20:30 112/50 L 09/22/23 20:27 68 18 09/22/23 20:27 68 09/22/23 20:16 09/22/23 20:16 97 O2 Del Method O2 Flow Rate 09/23/23 05:00 Room Air 09/23/23 04:40 Room Air, CPAP 09/23/23 03:31 09/23/23 03:00 09/23/23 02:30 09/23/23 01:30 09/23/23 01:00 09/23/23 00:42 09/23/23 00:00 09/22/23 23:30 09/22/23 23:00 09/22/23 23:00 09/22/23 22:50 09/22/23 22:40 09/22/23 22:30 09/22/23 22:30 09/22/23 22:20 09/22/23 22:16 09/22/23 21:40 09/22/23 21:30 09/22/23 21:20 09/22/23 21:10 09/22/23 21:00 09/22/23 21:00 09/22/23 20:50 09/22/23 20:40 09/22/23 20:30 09/22/23 20:30 09/22/23 20:27 09/22/23 20:27 09/22/23 20:16 Room Air 09/22/23 20:16 Room Air 0 Resident Activity Tracking Resident Involvement: Resident Care Provided Care Provided: Adult Hospital Medicine (2) Diabetes mellitus, type 2 Diabetes mellitus complication status: with hyperglycemia Diabetes mellitus shotblaster insulin use: with mcfp use Qualified Code(s): E11.65 - Type 2 diabetes mellitus with hyperglycemia; Z79.4 - [facility] (current) use of insulin
[2023-09-23] MEDS: IPRATROPIUM BROMIDE HFA INHALER INH SCH ×3 (08:24→19:54)
[2023-09-23] MEDS: ASPIRIN 81 MG ECTAB PO SCH (08:59)
[2023-09-23] MEDS: LOSARTAN POTASSIUM 25 MG TAB PO SCH (08:59)
[2023-09-23] MEDS: METOPROLOL SUCC 25MG EXT REL TAB PO SCH (09:00)
[2023-09-23] MEDS ORDERED: FUROSEMIDE 80 MG TAB PO SCH (09:00)
[2023-09-23] MEDS: FLUTICASONE/VILANTEROL 100/25MCG 14 PUFFS/INHALER INH SCH (09:00)
[2023-09-23] MEDS: POLYETHYLENE (MIRALAX) 17 GM PACK PO SCH (09:01)
[2023-09-23] MEDS: NICOTINE 21 MG/24 HR TDSY TD SCH (09:01)
[2023-09-23] MEDS: INSULIN ASPART PER UNIT CHARGE SC SCH ×4 (09:01→21:39)
[2023-09-23] MEDS: LANTUS PER UNIT CHARGE SQ SCH ×2 (09:02→21:39)
[2023-09-23] MEDS: PREGABALIN 150 MG CAP PO SCH ×3 (09:11→21:40)
--- NOTE | 2023-09-23 11:53 | Electrocardiogram Report ---
Test Reason : Blood Pressure : / mmHG Vent. Rate : 078 BPM Atrial Rate : 078 BPM P-R Int : 152 ms QRS Dur : 084 ms QT Int : 396 ms P-R-T Axes : 000 008 075 degrees QTc Int : 451 ms Unusual P axis, possible ectopic atrial rhythm Minimal voltage criteria for LVH, may be normal variant ( R in aVL ) Borderline ECG When compared with ECG of 18-APR-2023 11:26, No significant change Confirmed by Dwayne Guy ([id number]) on 09/23/2023 11:52:37 AM Referred By: REFERRED SELF Confirmed By:Dwayne Guy
[2023-09-23 13:02] LABS: Basophils # (auto) 0.01 K/uL (0.00-0.20); Basophils % (auto) 0.1 %; Immature Granulocytes # (auto) 0.01 K/uL (0.01-0.20); Immature Granulocytes % (auto) 0.1 %; Lymphocytes # (auto) 1.66 K/uL (1.20-3.40); Lymphocytes % (auto) 24.7 %; Mean Corpuscular Hemoglobin 28.6 pg (25.0-34.0); Mean Corpuscular Hgb Conc 32.4 g/dL (32.0-36.0); Mean Corpuscular Volume 88.1 fL (80.0-100.0); Mean Platelet Volume 11.7 fL (9.4-12.4); Monocytes # (auto) 0.25 K/uL (0.11-0.59); Monocytes % (auto) 3.7 %; Neutrophils % (auto) 71.4 %; Platelet Count 273 K/uL (130-400); RDW Coefficient of Variation 15.5 % (11.5-14.5); RDW Standard Deviation 49.1 fL (36.4-46.3); White Blood Count 6.73 K/ul (4.8-10.8)
[2023-09-23 13:21] LABS: Albumin Level 3.9 gm/dl (3.4-5.0); Bilirubin,Total 0.3 mg/dl (0.2-1.0); Calcium 9.6 mg/dl (8.6-10.3); Potassium 4.1 mmol/L (3.5-5.1)
[2023-09-23 13:28] LABS: Albumin Globulin Ratio 1.1 (0.9-2); BUN Creatinine Ratio 23.1 (10-20); Creatinine Clr Calc Pharmacy 102.2 ml/min; Est GFR (African American) 97.1 ml/min; Est GFR (Non-African American) 83.8 ml/min; Globulin 3.4 gm/dl (2.5-4.0); Total Protein 7.3 gm/dl (6.0-8.3)
[2023-09-23 13:29] LABS: INR 3.4 (0.9-1.1); Prothrombin Time 34.2 Seconds (9.0-12.0)
[2023-09-23] MEDS: oxyCODONE HCL IR 5 MG TAB (IMMEDIATE RELEASE) PO PRN ×2 (14:51→22:05)
[2023-09-23 15:28] LABS: Appearance Urine Clear (Clear); Bilirubin Urine Negative (Negative); Blood Urine Negative (Negative); Color Urine Yellow; Glucose Urine UA Negative (Negative); Ketones Urine Negative (Negative); Leukocyte Esterase Urine Negative (Negative); Nitrite Urine Negative (Negative); Protein Urine Negative (Negative); Specific Gravity Urine 1.008 (1.000-1.030); Urobilinogen Urine Negative (Negative); pH Urine 6.5 (4.5-7.5)
[2023-09-23] MEDS ORDERED: WARFARIN SOD 5 MG TAB PO SCH (16:00)
[2023-09-23] MEDS: CYCLOBENZAPRINE HCL 5 MG TAB PO PRN ×2 (19:33→21:40)
[2023-09-23] MEDS: ATORVASTATIN 40 MG TAB PO SCH (21:40)
[2023-09-23] MEDS: PANTOprazole 40 MG TAB PO SCH (21:40)
[2023-09-24] MEDS: CYCLOBENZAPRINE HCL 5 MG TAB PO PRN ×2 (04:50→21:46)
[2023-09-24] MEDS: oxyCODONE HCL IR 5 MG TAB (IMMEDIATE RELEASE) PO PRN (04:50)
[2023-09-24] MEDS: ACETAMINOPHEN 500 MG TAB PO SCH ×3 (06:33→21:46)
[2023-09-24 07:15] LABS: Hematocrit (blood only) 33.5 % (37.0-47.0); Hemoglobin 10.7 g/dl (12.0-16.0); Mean Corpuscular Hemoglobin 28.8 pg (25.0-34.0); Mean Corpuscular Hgb Conc 31.9 g/dL (32.0-36.0); Mean Corpuscular Volume 90.1 fL (80.0-100.0); Mean Platelet Volume 11.9 fL (9.4-12.4); Platelet Count 237 K/uL (130-400); RDW Coefficient of Variation 15.8 % (11.5-14.5); RDW Standard Deviation 51.8 fL (36.4-46.3); Red Blood Count 3.72 M/uL (4.20-5.40); White Blood Count 10.47 K/ul (4.8-10.8)
--- NOTE | 2023-09-24 07:32 | Discharge Summary ---
Date of Service September 24, 2023 Admission HPI Per Admitting Provider Deb Thomson is a 57yo female with history of COPD/Asthma, SMITA on CPAP, HTN, HLP, AF and DM as well as mechanical mitral valve on Coumadin anticoagulation presenting from home with right lumbar and sciatic pain. Patient reports she has had ongoing pain at her sternotomy site and bandlike pain around her chest since having her valve replacement. She follows with Pain Management and has had injections in her keloids for attempted pain control. She reports not much relief with this. She is to have her nerves ablation with Pain Management in the future. She has also had pain and buckling in her right knee. She has fallen in the past but nothing recent. She most recently began developing lumbar pain on the right side over the last three weeks. Over the last 3-4 days she has developed right buttock pain with radiation down the posterior thigh to the knee. She has had some difficulty with ambulation due to pain. She was able to sit upright several days ago but now has too much discomfort in any position other than left lateral recumbent. she has been taking Oxycodone 5mg po BID at home with no relief. She denies trauma. No complaints of bowel or bladder involvement. No additional complaints such as fever, chills, cough, SOB, abdominal pain, nausea, vomiting, diarrhea ER Course: Morphine 4mg IV x 2 Tylenol 1gm IV Gabapentin 100mg Methocarbamol 500mg Oxycodone 5mg PO Dexamethasone 10mg IV Lidoderm patch Discharge Exam Constitutional WD/WN, vitals as above Respiratory normal respiratory effort, lungs clear to auscultation Cardiovascular RRR, no murmur, no edema Gastrointestinal (Abdomen) normal bowel sounds, soft, nontender, no hepatosplenomegaly Musculoskeletal Knee: + joint line tenderness; knee normal to inspection, no effusion and normal ROM of knee Discharge Data Allergies Allergy/AdvReac Type Severity Reaction Status Date / Time No Known Allergies Allergy Verified 09/19/23 08:21 Consultations 09/23/23 02:52 ED Decision to Admit Stat 09/23/23 05:12 Consult Pain Management Routine Ordered Studies 09/22/23 20:46 CT abd pelvis IV con only Stat CT lumbar spine w con Stat Hospital Course (1) Acute lumbar radiculopathy: (2) Diabetes mellitus, type 2: (3) History of mitral valve replacement with mechanical valve: (4) Morbid obesity due to excess calories: (5) Knee pain, right: Plan Acute lumbar radiculopathy 57yo female presenting with acute lumbar pain, radiculopathy. No neurologic deficits. -Observation to medical -Tylenol 1gm PO TID -Morphine PRN (4 --> 2 g Q4h) due to transitioning to oxycodone, 5 mg, PO, QID -Continue Lyrica 150mg po TID -Flexeril 5mg po BID PRN -Lidoderm patch -Diclofenac topical - Patient says she has nerve ablation therapy appt scheduled for 12/15 T2DM, with obesity Overall un-controlled. Last [id number]=3.5 on 08/10/23 -Novolog sliding scale -Lanuts 7u BID Obstructive sleep apnea on CPAP Chronic. Stable. Patient is compliant with CPAP -CPAP qHS GERD Chronic. Stable -Continue Protonix 40mg po daily Hyperlipidemia Chronic. Stable -Continue Atorvastatin 40mg po daily Discharge Plan Discharge Items Reason For Visit: BACK PAIN Follow-up/Referrals: Sugar Weber MD [Primary Care Provider] - Medications and DC Order Prescriptions: No Action warfarin 5 mg tablet See Rx Instructions PO UD Qty: 260 1RF Rx Instructions: 15mg daily per [facility] orally use as directed; (DME) [facility] See Rx Instructions .Route Qty: 1 0RF Rx Instructions: As directed-HOSPITAL BED, LENGTH OF NEED 99 MONTHS, DX CODE; Z98.890 albuterol sulfate 90 mcg/actuation HFA aerosol inhaler 2 puff INHALATION Q6 PRN (Reason: Shortness Of Breath Or Wheezing) Qty: 18 5RF Proctofoam HC 1-1 % foam 1 applic [place] BID PRN (Reason: hemorrhoids) Qty: 10 0RF Atrovent HFA 17 mcg/actuation HFA aerosol inhaler 2 puff INHALATION TID Qty: 12.9 5RF losartan 25 mg tablet 25 mg PO QAM 90 Days Qty: 90 5RF metoprolol succinate 25 mg tablet extended release 24 hr 25 mg PO QAM 90 Days Qty: 90 4RF atorvastatin 40 mg tablet 40 mg PO QPM 90 Days Qty: 90 2RF furosemide 40 mg tablet 80 mg PO QAM 90 Days Qty: 180 2RF lidocaine [Lidoderm] 5 % adhesive patch,medicated 1 patch topical DAILY Qty: 15 1RF Rx Instructions: leave on most painful area for up to 12 hrs nitroglycerin 0.4 mg tablet, sublingual 0.4 mg sublingual Q5M PRN (Reason: Chest Pain) Qty: 30 6RF Rx Instructions: do not exceed 3 doses per episode (DME) St[facility] See Rx Instructions .Route .MEDSUPPLY Qty: 1 0RF Rx Instructions: To be installed and used as directed to allow safe ambulation of stairs in patient home diclofenac sodium [Arthritis Pain (diclofenac)] 1 % gel 4 g topical QID PRN (Reason: Pain) Qty: 100 0RF cyclobenzaprine 5 mg tablet 5 mg PO DAILY PRN (Reason: muscle spasm) 30 Days Qty: 10 0RF oxycodone 5 mg tablet 5 mg PO BID PRN (Reason: Pain, Severe) 30 Days Qty: 30 0RF dulaglutide 4.5 mg/0.5 mL pen injector 4.5 mg subcut .q7days 28 Days Qty: 2 5RF Rx Instructions: please inject 4.5mg once every 7 days (DME) Bedside Commode [facility] See Rx Instructions .Route Qty: 1 0RF Rx Instructions: As directed pregabalin 150 mg capsule 150 mg PO TID 30 Days Qty: 90 3RF Nurtec ODT 75 mg tablet,disintegrating 75 mg PO DIRECTED PRN (Reason: Migraine Headache) Qty: 8 5RF Rx Instructions: 75 mg PO take one tablet at migraine onset as directed; metformin 500 mg tablet 1,000 mg PO BID 90 Days Qty: 360 2RF (DME) blood-glucose meter [OneTouch Verio Flex meter] [facility] See Rx Instructions .Route Qty: 1 0RF Rx Instructions: Check blood sugar 1-2 times daily (DME) OneTouch Verio test strips Strip See Rx Instructions .Route Qty: 100 3RF Rx Instructions: Test blood sugar once daily and as needed (DME) lancets [OneTouch UltraSoft 2 Lancet] 30 gauge [facility] [place] See Rx Instructions .Route Qty: 100 3RF Rx Instructions: Test blood sugar once daily and as needed potassium chloride 10 mEq capsule, extended release 20 meq PO QAM aspirin [Ecotrin Low Strength] 81 mg tablet,delayed release (DR/EC) 81 mg PO QAM pantoprazole 40 mg tablet,delayed release (DR/EC) 40 mg PO PM fluticasone furoate-vilanterol [Breo Ellipta] 100-25 mcg/dose blister with device 1 inh INHALATION QAM ipratropium-albuterol 0.5 mg-3 mg(2.5 mg base)/3 mL solution for nebulization 3 ml NEB Q6H PRN (Reason: wheezing/SOB/cough) Qty: 180 4RF Admission Data Admit Date/Time: 09/23/23 02:58 Attending Provider: Kwaku Madison Admit Provider: Eve Livingston Primary Care Provider: Sugar Weber Other Providers: Eve Livingston; Drake Robert Resident Activity Tracking Resident Involvement: Resident Care Provided Care Provided: Adult Hospital Medicine
[2023-09-24 07:40] LABS: BUN Creatinine Ratio 27.6 (10-20); Calcium 8.7 mg/dl (8.6-10.3); Creatinine Clr Calc Pharmacy 104.9 ml/min; Est GFR (African American) 100.2 ml/min; Est GFR (Non-African American) 86.5 ml/min
[2023-09-24 07:48] LABS: Prothrombin Time 54.8 Seconds (9.0-12.0)
[2023-09-24 07:52] LABS: INR 5.6 (0.9-1.1)
[2023-09-24] MEDS: PREGABALIN 150 MG CAP PO SCH ×3 (08:11→21:47)
[2023-09-24] MEDS: POLYETHYLENE (MIRALAX) 17 GM PACK PO SCH ×3 (08:11→21:47)
[2023-09-24] MEDS: METOPROLOL SUCC 25MG EXT REL TAB PO SCH (08:11)
[2023-09-24] MEDS: ASPIRIN 81 MG ECTAB PO SCH (08:11)
[2023-09-24] MEDS: LIDOCAINE 5% 1 PATCH TD SCH (08:12)
[2023-09-24] MEDS: LOSARTAN POTASSIUM 25 MG TAB PO SCH (08:12)
[2023-09-24] MEDS: NICOTINE 21 MG/24 HR TDSY TD SCH (08:12)
[2023-09-24] MEDS: IPRATROPIUM BROMIDE HFA INHALER INH SCH ×3 (08:14→19:29)
[2023-09-24] MEDS: INSULIN ASPART PER UNIT CHARGE SC SCH ×4 (08:40→20:45)
[2023-09-24] MEDS: LANTUS PER UNIT CHARGE SQ SCH ×2 (08:40→20:45)
[2023-09-24] MEDS: FLUTICASONE/VILANTEROL 100/25MCG 14 PUFFS/INHALER INH SCH (09:42)
[2023-09-24] MEDS ORDERED: FUROSEMIDE 80 MG TAB PO SCH ×2 (10:00→22:00)
[2023-09-24] MEDS: MoRPHine SULFATE 2 MG/ML CARP IV PRN ×3 (10:26→20:57)
[2023-09-24] MEDS: DULoxetine HCL 30 MG CAP PO SCH (13:29)
--- NOTE | 2023-09-24 16:21 | Hospitalist Progress Note ---
Date of Service September 24, 2023 Assessment & Plan (1) Acute lumbar radiculopathy: (2) Diabetes mellitus, type 2: (3) History of mitral valve replacement with mechanical valve: (4) Morbid obesity due to excess calories: (5) Knee pain, right: Plan Acute lumbar radiculopathy 57yo female presenting with acute lumbar pain, radiculopathy. No neurologic deficits. -Observation to medical -Tylenol 1gm PO TID -Morphine PRN (4 --> 2 g Q4h) due to transitioning to oxycodone, 5 mg, PO, QID -Continue Lyrica 150mg po TID -Flexeril 5mg po BID PRN -Lidoderm patch -Diclofenac topical - Duloxetine, 30 mg, PO, daily started (09/24/23) - Patient says she has nerve ablation therapy appt scheduled for 12/15 Elevated INR/mild anemia - INR 5.6 (09.24.23) <-- 3.4 - warfarin dose held today, will decrease by 10% for tomorrow - Hgb 10.7 (.01.12) <-- 12.0 - FOBT ordered, results pending Constipation - patient stated today she had not had BM in 4 days, likely etiology chronic opiate Rx, other lifestyle factors/relative inactivity - Miralax, 17 g, QID T2DM, with obesity Overall un-controlled. Last [id number]=6.5 on 08/10/23 -Novolog sliding scale -Lanuts 7u BID - Glu has been 105 - 260, will control more tightly if pt's hosp stay is extended Obstructive sleep apnea on CPAP Chronic. Stable. Patient is compliant with CPAP -CPAP qHS GERD Chronic. Stable -Continue Protonix 40mg po daily Hyperlipidemia Chronic. Stable -Continue Atorvastatin 40mg po daily Admission and Anticipated Discharge Date Admission Date: September 23, 2023 Supervising Physician Co-Signing Physician Notes Attending attestation Pt seen and examined in concert with Dr. Bedoya. In agreement with the documented findings as noted in the resident documentation with any exceptions or additions as noted here. Ongoing radicular lower back pain. Reviewed documented recommendation to initiate duloxetine and patient open to doing so. On examination, S1/S2 nl RRR no MCG. CTAB. Abd NT/ND BS+ve VS: 127/55, 66, 18, 36.5C, 97 RA Intractable lower back pain with radicular symptoms - continue lyrica, flexeril, topical lidocaine, topical diclofenac and TID APAP. Encourage routine use of oxycodone to gauge appropriate medication regimen as c/o pain but also past due for medication. Add duloxetine 30mg. Supratherapeutic INR - 5.6 - patient reports adherence to this regimen with more veggies at home than here. Hold today, restart at 10% reduction tomorrow PM. daily measure. Goal 2.5 to 3.5 Anemia - new decrease in HGB with negative FOBT today and no sx. Monitor Else see resident documentation as noted. Subjective [Chief Complaint: back pain Primary Care Provider: Sugar Weber MD] Deb Thomson is a 57 yo F with PMHx of COPD/Asthma, SMITA on CPAP, HTN, HLP, AF and T2DM as well as mechanical mitral valve on Coumadin anticoagulation presenting from home with right lumbar and sciatic pain. Patient reports she has had ongoing pain at her sternotomy site and bandlike pain around her chest since having her valve replacement. She follows with Pain Management and has had injections in her keloids for attempted pain control. Reports little pain relief with this. Scheduled/plans to have nerve ablation with Pain Management in the future. She has also had pain and buckling in her right knee. She has fallen in the past but nothing recent. She most recently began developing lumbar pain on the right side over the last three weeks. Over the last 3-4 days she has developed right buttock pain with radiation down the posterior thigh to the knee. She has had some difficulty with ambulation due to pain. She was able to sit upright several days ago but now has too much discomfort in any position other than left lateral recumbent. she has been taking Oxycodone 5mg po BID at home with no relief. She denies trauma. No complaints of bowel or bladder involvement. No additional complaints such as fever, chills, cough, SOB, abdominal pain, nausea, vomiting, diarrhea ER Course: Morphine 4mg IV x 2 Tylenol 1gm IV Gabapentin 100mg Methocarbamol 500mg Oxycodone 5mg PO Dexamethasone 10mg IV Lidoderm patch Review of Systems Constitutional: no fever, no chills and no weakness Respiratory: no cough and no dyspnea Cardiovascular: no chest pain and no palpitations Gastrointestinal: + constipation (when talking w/ pt today she admitted has not had BM for 4 days); no nausea, no vomiting and no diarrhea/loose stools Genitourinary: no dysuria and no urinary frequency Musculoskeletal: + back pain and + joint pain Physical Exam Constitutional: WD/WN, vitals as above Respiratory: normal respiratory effort, lungs clear to auscultation Cardiovascular: RRR, no murmur, no edema Gastrointestinal (Abdomen): normal bowel sounds, soft, nontender, no hepatosplenomegaly Musculoskeletal: Spine: + thoracic spinal tenderness and + paraspinal tenderness Knee: + joint line tenderness; knee normal to inspection, no effusion and normal ROM of knee Patient endorses sciatic pain down her r. hip, post buttock, r. post thigh Results & Data Results & Data Vital Signs (Past 12 Hours) Vital Signs Temp Pulse Resp BP Pulse Ox O2 Del Method O2 Flow Rate 09/24/23 16:05 36.5 C 66 18 127/55 L 97 Room Air 09/24/23 12:11 70 20 93 Room Air 09/24/23 08:41 36.7 C 60 18 151/83 H 94 Room Air 09/24/23 08:14 68 12 97 Room Air 09/24/23 07:58 36.4 C L 76 16 91/50 L 98 Room Air 09/24/23 04:59 15 2 FiO2 09/24/23 16:05 09/24/23 12:11 09/24/23 08:41 09/24/23 08:14 21 09/24/23 07:58 09/24/23 04:59 (2) Diabetes mellitus, type 2 Diabetes mellitus complication status: with hyperglycemia Diabetes mellitus intermediate manager insulin use: with intermediate manager use Qualified Code(s): E11.65 - Type 2 diabetes mellitus with hyperglycemia; Z79.4 - [facility] (current) use of insulin
[2023-09-24] MEDS: PANTOprazole 40 MG TAB PO SCH (21:46)
[2023-09-24] MEDS: ATORVASTATIN 40 MG TAB PO SCH (21:47)
[2023-09-25] MEDS: ACETAMINOPHEN 500 MG TAB PO SCH ×2 (06:36→13:34)
[2023-09-25] MEDS: POLYETHYLENE (MIRALAX) 17 GM PACK PO SCH ×3 (06:39→17:19)
[2023-09-25] MEDS: MoRPHine SULFATE 2 MG/ML CARP IV PRN ×2 (06:39→14:13)
[2023-09-25] MEDS: IPRATROPIUM BROMIDE HFA INHALER INH SCH ×2 (07:07→13:03)
[2023-09-25] MEDS: PREGABALIN 150 MG CAP PO SCH ×2 (08:47→13:34)
[2023-09-25] MEDS: oxyCODONE HCL IR 5 MG TAB (IMMEDIATE RELEASE) PO PRN (08:47)
[2023-09-25] MEDS: INSULIN ASPART PER UNIT CHARGE SC SCH ×3 (08:48→17:19)
[2023-09-25] MEDS: LANTUS PER UNIT CHARGE SQ SCH (08:48)
[2023-09-25] MEDS: NICOTINE 21 MG/24 HR TDSY TD SCH (08:49)
[2023-09-25] MEDS: LOSARTAN POTASSIUM 25 MG TAB PO SCH (08:49)
[2023-09-25] MEDS: DULoxetine HCL 30 MG CAP PO SCH (08:51)
[2023-09-25] MEDS: CYCLOBENZAPRINE HCL 5 MG TAB PO PRN (08:51)
[2023-09-25] MEDS: ASPIRIN 81 MG ECTAB PO SCH (08:51)
[2023-09-25] MEDS: METOPROLOL SUCC 25MG EXT REL TAB PO SCH (08:51)
[2023-09-25] MEDS: FLUTICASONE/VILANTEROL 100/25MCG 14 PUFFS/INHALER INH SCH (08:52)
--- NOTE | 2023-09-25 09:19 | Pain Management Consultation ---
Date of Consultation September 25, 2023 Assessment & Plan (1) Lumbar spinal stenosis: (2) Sacroiliac joint dysfunction of right side: (3) Lumbar facet joint syndrome: (4) Chronic anticoagulation: (5) History of mitral valve replacement with mechanical valve: (6) Postoperative keloid scar: (7) Morbid obesity due to excess calories: Plan 1. Recommend updating MRI imaging of the lumbar spine without contrast to better delineate anatomy. Order placed, most recent MRI 02/13/2020. 2. Suspect lumbar facet syndrome versus right-sided inflammatory sacroiliitis as etiology of pain. Patient is not a candidate for interventional pain management due to INR of 5.6 currently. 3. Recommend continued utilization of Lidoderm patch, oxycodone, steroids, Lyrica, judicious utilization of oxycodone and IV morphine. 4. Colace 100 mg p.o. twice daily ordered to augment bowel regimen. 5. We will follow-up with the patient once MRI results are available. Thank you for this consultation. History of Present Illness Attending Physician: Shaji Cedillo DO History of Present Illness 57-year-old female admitted with 80% axial to 20% right lower extremity symptoms along her posterior lateral thigh not past the level of the knee. She states she was at a pharmacy and had difficulty walking secondary to pain and thus called 911 and presented to the [facility] emergency room. She has previously had this pain and had been participating in physical therapy for 2 months July or August of this year without improvement. She previously had a radiofrequency ablation of her bilateral L4, L5, S1 lumbar medial branches in 2016 with good effect. Her pain currently is presenting similar to prior to her RFA (scheduled for repeat RFA in November 2023). Pain today ranges between 6-8 out of 10 sharp stabbing shooting. She denies overt motor weakness, falls, foot drop, saddle anesthesia, bowel or bladder incontinence. She notes ambulatory dysfunction only secondary to pain. She notes modest benefit from oral oxycodone and IV morphine. She denies any injury or trauma as a cause of her current pain. She also has a history of chronic anterior chest wall pain after a median sternotomy for mitral valve replacement. She recently had a keloid scar injection on 08/23/2023 without benefit. She reports aching pain over her anterior chest wall with keloid sensitivity. She has failed compound cream, Voltaren, lidocaine, Lyrica 150 mg p.o. 3 times daily. She reports her anterior chest wall pain is unchanged from prior to admission. Pain Assessment Full Body Front + Back: 2 1. 2. 3. 4. [facility] Combined Pain Scale: 8-Debilitating - Impairs activity. Can't maintain a conversation. Allergies Allergy/AdvReac Type Severity Reaction Status Date / Time No Known Allergies Allergy Verified 09/19/23 08:21 Home Medications Medication Instructions Recorded Confirmed Type Bedside Commode #1 ea 08/04/22 09/19/23 Rx Hospital Bed Homecare #1 ea 08/12/22 09/19/23 Rx ipratropium 0.5 mg-albuterol 3 mg 3 ml NEB Q6H PRN 01/22/23 09/22/23 Rx (2.5 mg base)/3 mL nebulization wheezing/SOB/cough #180 mL soln albuterol sulfate 90 mcg/actuation 2 puff inhalation Q6 PRN Shortness 05/17/23 09/22/23 Rx aerosol inhaler Of Breath Or Wheezing #18 grams hydrocortisone 1 %-pramoxine 1 % 1 applic GA BID PRN hemorrhoids 05/17/23 09/22/23 Rx rectal foam (Proctofoam HC) #10 grams ipratropium bromide 17 2 puff inhalation TID #12.9 grams 05/17/23 09/22/23 Rx mcg/actuation HFA aerosol inhaler (Atrovent HFA) losartan 25 mg tablet 25 mg PO QAM 90 days #90 tabs 05/17/23 09/22/23 Rx metoprolol succinate 25 mg 25 mg PO QAM 90 days #90 tabs 05/17/23 09/22/23 Rx tablet,extended release 24 hr atorvastatin 40 mg tablet 40 mg PO QPM 90 days #90 tabs 06/19/23 09/22/23 Rx furosemide 40 mg tablet 80 mg (2 x 40 mg) PO QAM 90 days 06/19/23 09/22/23 Rx #180 tabs pregabalin 150 mg capsule 150 mg PO TID 30 days #90 caps 07/07/23 09/22/23 Rx rimegepant 75 mg disintegrating 75 mg PO DIRECTED PRN Migraine 07/07/23 09/22/23 Rx tablet (Nurtec ODT) Headache #8 tabs blood-glucose meter (OneTouch #1 ea 07/13/23 09/19/23 Rx Verio Flex Meter) lidocaine 5 % topical patch 1 patch topical DAILY #15 ea 07/16/23 09/22/23 Rx (Lidoderm) aspirin 81 mg tablet,delayed 81 mg PO QAM 07/24/23 09/22/23 History release (Ecotrin Low Strength) fluticasone furoate 100 1 inh inhalation QAM 07/24/23 09/22/23 History mcg-vilanterol 25 mcg/dose inhalation powder (Breo Ellipta) pantoprazole 40 mg tablet,delayed 40 mg PO PM 07/24/23 09/22/23 History release potassium chloride 10 mEq 20 meq PO QAM 07/24/23 09/22/23 History capsule,extended release blood sugar diagnostic (OneTouch #100 ea 07/27/23 09/19/23 Rx Verio test strips) lancets 30 gauge (OneTouch #100 ea 07/27/23 09/19/23 Rx UltraSoft 2 Lancet) nitroglycerin 0.4 mg sublingual 0.4 mg sublingual Q5M PRN Chest 08/09/23 09/22/23 Rx tablet Pain #30 tabs Stair [place] #1 ea 08/10/23 09/19/23 Rx diclofenac sodium 1 % topical gel 4 g topical QID PRN Pain #100 grams 09/02/23 09/22/23 Rx (Arthritis Pain (diclofenac)) cyclobenzaprine 5 mg tablet 5 mg PO DAILY PRN muscle spasm 30 09/07/23 09/22/23 Rx days #10 tabs metformin 500 mg tablet 1,000 mg (2 x 500 mg) PO BID 90 09/12/23 09/22/23 Rx days #360 tabs warfarin 5 mg tablet See Rx Instructions PO UD #260 tabs 09/18/23 09/22/23 Rx dulaglutide 4.5 mg/0.5 mL 4.5 mg (0.5 mL) subcut .q7days 28 09/19/23 09/22/23 Rx subcutaneous pen injector days #2 mL oxycodone 5 mg tablet 5 mg PO BID PRN Pain, Severe 30 09/19/23 09/22/23 Rx days #30 tabs Patient History Medical History (Updated 09/25/23 @ 09:14 by Nita Patel DO) Lumbar spinal stenosis Obstructive sleep apnea on CPAP Diabetes mellitus, type 2 Hyperlipidemia Lumbar facet joint syndrome Parainfluenza infection with pneumonia > resolved per pt Asthma exacerbation with COPD (chronic obstructive pulmonary disease) uses res inh approx 2x per week Postoperative keloid scar sternal Chronic systolic (congestive) heart failure CHF exacerbation Hyperglycemia due to type 2 diabetes mellitus Atrial fibrillation no pacer > med controlled per pt Tobacco abuse Dyspnea on exertion so severe pt is wheelchair bound (per [facility] record) Mitral valve insufficiency History of COVID-2020 Asthma-COPD overlap syndrome History of pulmonary embolism on warfarin > 2021 > no known cause Chronic diastolic congestive heart failure GERD (gastroesophageal reflux disease) Hx of coronary artery disease Chronic low back pain Vertigo CSF leak hx > resolved per pt Degeneration of cervical intervertebral disc External hemorrhoids Hemiplegic migraine Urinary incontinence Vitamin D deficiency Hypertension Vertebral artery stenosis Surgical History History of mitral valve replacement with mechanical valve S/P MVR (mitral valve repair) Aug 26 2022 > [facility] History of transesophageal echocardiography (GEORGETTE) performed 06/21/22 @ [facility]---per report pt has severe mitral valve insufficiency History of hemorrhoidectomy (~2017) @ [facility] S/p tibial fracture open treatment of Fx with plate/screws, Left leg History of mandibular surgery S/P left knee arthroscopy History of bilateral tubal ligation Status post right foot surgery Facial fracture (2014) WITH RECONSTRUCTION History of esophagogastroduodenoscopy (EGD) History of colonoscopy History of heart artery stent X2 STENTS (2010) UNSURE OF KIND. NO STENT CARDS PER PT. History of cardiac cath X2 STENTS - (~2010, IN [place], [place]). NO STENTS - ([facility] @ ~2014) No stents ([facility] 05/11/2022) - Follows [facility] Family History Mother Breast cancer, Onset Age: 64 Type 2 diabetes mellitus Father Diabetes Coronary heart disease Type 2 diabetes mellitus Myocardial infarction, Onset Age: 52 Family/Other Hypertension sibling Grandmother (Maternal) Cancer Grandfather (Maternal) Cancer Denies family history of Ovarian cancer Social History Smoking Status: Current every day smoker Tobacco Type: Cigarettes Age Started Using Tobacco: 13; Age Quit Using Tobacco: 56; packs per day: 0.5; Cigarettes Per Day: 3-7; Second Hand Exposure: No; Do You Dip or Chew Tobacco: No; Hx Alcohol Use: No Hx Substance Use: No Preferred Language: Grenadian Communication Ability: Effective Visual Impairment: No Limitations Hearing Ability: Normal Hvac Service Manager Required: No Beliefs That Will Affect Care: None marital status: Current Living Situation: Spouse Current Living Situation Comment: Home with current occupational status: disabled How many Children do You have: 5 Feels Safe at Home: Yes Childhood Exposure to Second-Hand Smoke: No Diet: low salt caffeine: Yes (1/2 cup of coffee a day) during the past year weight has: remained stable Dental Care, Regularly: No Physical Activity Frequency: 1-2 Times per Week Seatbelt Use: always Sunscreen Use: No Assistive Devices: Cane, Glasses and Wheelchair Physical Exam 2 Physical Exam: Constitutional: Morbidly obese and deconditioned Psych: Awake, alert, and oriented 3 with normal affect and mood. Recent memory appears grossly intact Eyes: Pupils are equally round and reactive to light with normal size pupils, eyelids appear normal Ear, nose, mouth, and throat: Moist nasal and oral membranes, lips and tongues appear normal, no external ear abnormalities are noted Neck: The trachea is midline without deviation and no thyromegaly is noted Respiratory: Normal respiratory effort without distress, no audible wheezes or rhonchi CV: Normal S1 and S2, warm distal extremities with 2+ dorsalis pedis pulses bilaterally Chest: Sternotomy scar noted with keloid formation. Previous injection site well-healed without anomaly GI/abdomen: Non-tender mild distention Musculoskeletal: Head is normocephalic and atraumatic, gait not observed. Patient has some difficulty logrolling in bed Cervical: Range of motion is normal with extension, flexion, side-bending, rotation Strength: Strength is grossly equal bilaterally with 5 out of 5 strength in all planes Lumbar: Lordotic curve: Loss of lumbar lordosis Range of motion is decreased in all planes Tenderness: Moderately tender over the axial midline L4-S1 Facet provocation: Positive bilaterally Straight leg raise: Negative left, positive on the right only with Achilles stretch Step-off injuries: None Strength: Strength is equal bilaterally with 5 out of 5 strength in all planes Sensation of lower extremities: Intact bilaterally Deep tendon reflexes: Rated at 1+ in bilateral L4 and S1 Myofascial spasm: Mild to moderate lumbar spasm. No discrete trigger points noted Greater trochanters: Nontender bilaterally Sacroiliac joints: Nontender on the left positive on the right Thigh thrust Fabere and Gaenslens: negative on the left positive on the right Pathologic reflexes noted: None Skin: No rashes, lesions, ulcers, or induration noted Neuro: No nystagmus noted, the tongue is midline, the patient is able to rotate their head bilaterally : Deferred Results (Pain Clinic) Diagnostic Review MRI: non enhanced, reports reviewed and findings discussed with patient MRI Findings: 02/13/20 MR lumbar spine wo con CLINICAL HISTORY: 54 years-old Female with disc issues, pain down legs, thighs. Acute severe low back pain with radiation into the bilateral lower extremities COMPARISON: MRI lumbar spine 12/29/2014 TECHNIQUE: Multiplanar, multi sequence MRI of the lumbar spine was performed without intravenous contrast. FINDINGS: Technical Support Manager localizer images demonstrate no gross extraspinal abnormality. There is no aortic aneurysm or adenopathy. Moderate intramuscular edema of the left psoas is seen most prominently the level of L3-L4 (please see bookmarks). Additionally, there is mild soft tissue edema surrounding the left L3-L4 facets. Remote appearing Schmorl's nodes are seen at the L3, L4 and L5 levels. Additionally, there is mild bone marrow edema involving the left aspect of the L4 vertebral body aT without acute fracture line. No acute fracture, subluxation or additional significant bone marrow edema. Conus medullaris terminates at the L1 level. Cauda equina appear to be within normal limits. 12-L1: Minimal spondylitic spurring with mild facet arthrosis. No central canal or foraminal narrowing. L1-L2: Minimal spondylitic spurring with mild to moderate facet arthrosis. No central canal or foraminal narrowing. L2-L3: Minimal spondylitic spurring with moderate facet arthrosis. Ligamentum flavum thickening. Mild narrowing of the inferior neuroforamina bilaterally. Central canal is patent. L3-L4: Moderate disc space narrowing with spondylitic spurring, circumferential annular disc bulge with ligamentum flavum thickening and severe facet arthrosis. Flattening of the ventral thecal sac results in moderate central canal stenosis with moderate narrowing of the lateral recesses. Moderate bilateral foraminal stenosis. L4-L5: Moderate disc space narrowing with spondylitic spurring, circumferential annular disc bulge, ligamentum flavum thickening and severe facet arthrosis. Flattening of the ventral thecal sac results in mild central canal stenosis with mild to moderate right and moderate left lateral recess narrowing. Moderate to severe left with moderate right foraminal narrowing. L5-S1: Moderate disc space narrowing with spondylitic spurring, circumferential annular disc bulge, ligamentum flavum thickening and severe facet arthrosis with trace facet effusions. Flattening of the ventral thecal sac without concentric canal stenosis. Mild narrowing of the lateral recesses. Severe right and moderate left foraminal stenosis. IMPRESSION: 1. Moderate intramuscular edema of the left psoas muscle, centered at the L3-L4 level is suggestive of an acute muscle strain. 2. Mild soft tissue edema surrounding the L3-L4 facets is likely on a reactive basis. 3. Multilevel discogenic degeneration, ligamentum flavum thickening and facet arthrosis, most pronounced at the L3-L4 through L5-S1 levels as detailed above results in multilevel foraminal narrowing. 4. Moderate central canal stenosis at L3-L4. No high-grade central canal narrowing CT: non enhanced, reports reviewed and findings discussed with patient CT Findings: 09/22/23 CT Lumbar Spine With Intravenous Contrast CLINICAL HISTORY: Reason for exam: low back pain with radiculopathy. TECHNIQUE: Axial computed tomography images of the lumbar spine with intravenous contrast. CTDI is 28.14 mGy and DLP is 1345.04 mGy-cm. Automated exposure control was utilized for the study. A dose lowering technique was utilized adhering to the principles of ALARA. CONTRAST: Patient received 82 ml opti 320 of IV contrast COMPARISON: No relevant prior studies available. FINDINGS: The vertebral body heights are maintained. The lumbar lordosis is preserved. There is no spondylolisthesis. The posterior elements are maintained, without evidence of acute fracture. The pedicles are intact. Multilevel lumbar spondylosis and degenerative disc disease. IMPRESSION: No acute fracture or subluxation of the lumbar spine. 09/22/23 EXAM: CT Abdomen and Pelvis With Intravenous Contrast CLINICAL HISTORY: Reason for exam: RUQ/right flank pain. TECHNIQUE: Axial computed tomography images of the abdomen and pelvis with intravenous contrast. CTDI is 28.14 mGy and DLP is 1352.6 mGy-cm. Automated exposure control was utilized for the study. A dose lowering technique was utilized adhering to the principles of ALARA. CONTRAST: Patient received 82 ml opti 320 of IV contrast COMPARISON: No relevant prior studies available. FINDINGS: Lung bases: Unremarkable. No mass. No consolidation. ABDOMEN: Liver: Unremarkable. No mass. Gallbladder and bile ducts: Unremarkable. No calcified stones. No ductal dilation. Pancreas: Unremarkable. No mass. No ductal dilation. Spleen: Unremarkable. No splenomegaly. Adrenals: Unremarkable. No mass. Kidneys and ureters: Unremarkable. No solid mass. No hydronephrosis. Stomach and bowel: Diverticulosis, without acute diverticulitis. No small bowel obstruction. No free intraperitoneal air. PELVIS: Appendix: Normal appendix. Bladder: Unremarkable. No mass. Reproductive: Unremarkable as visualized. ABDOMEN and PELVIS: Intraperitoneal space: Unremarkable. No free air. No significant fluid collection. Bones/joints: Degenerative changes of the spine. No acute fracture. No dislocation. Soft tissues: Unremarkable. Vasculature: Atherosclerotic changes of the aorta. No abdominal aortic aneurysm. Lymph nodes: Unremarkable. No enlarged lymph nodes. IMPRESSION: No acute findings in the abdomen or pelvis. Previous Records Review Previous Records: personally reviewed by me
[2023-09-25 09:38] LABS: Hematocrit (blood only) 37.6 % (37.0-47.0); Hemoglobin 11.8 g/dl (12.0-16.0); Mean Corpuscular Hemoglobin 28.2 pg (25.0-34.0); Mean Corpuscular Hgb Conc 31.4 g/dL (32.0-36.0); Platelet Count 246 K/uL (130-400); RDW Coefficient of Variation 15.9 % (11.5-14.5); RDW Standard Deviation 52.7 fL (36.4-46.3); Red Blood Count 4.18 M/uL (4.20-5.40); White Blood Count 6.77 K/ul (4.8-10.8)
[2023-09-25 10:01] LABS: Albumin Globulin Ratio 1.2 (0.9-2); Albumin Level 3.6 gm/dl (3.4-5.0); BUN Creatinine Ratio 23.1 (10-20); Bilirubin,Total 0.3 mg/dl (0.2-1.0); Calcium 8.8 mg/dl (8.6-10.3); Creatinine Clr Calc Pharmacy 87.6 ml/min; Est GFR (African American) 80.6 ml/min; Est GFR (Non-African American) 69.5 ml/min; Globulin 2.9 gm/dl (2.5-4.0); Potassium 3.8 mmol/L (3.5-5.1); Total Protein 6.5 gm/dl (6.0-8.3)
[2023-09-25 10:07] LABS: INR 3.8 (0.9-1.1); Prothrombin Time 38.4 Seconds (9.0-12.0)
[2023-09-25] MEDS: LIDOCAINE 5% 1 PATCH TD SCH (10:19)
[2023-09-25 10:37] LABS: Basophils # (auto) 0.04 K/uL (0.00-0.20); Basophils % (auto) 0.6 %; Eosinophils # (auto) 0.12 K/uL (0.00-0.50); Eosinophils % (auto) 1.8 %; Immature Granulocytes # (auto) 0.01 K/uL (0.01-0.20); Immature Granulocytes % (auto) 0.1 %; Lymphocytes # (auto) 3.87 K/uL (1.20-3.40); Lymphocytes % (auto) 57.2 %; Monocytes # (auto) 0.47 K/uL (0.11-0.59); Monocytes % (auto) 6.9 %; Neutrophils # (auto) 2.26 K/uL (1.40-6.50); Neutrophils % (auto) 33.4 %
[2023-09-25] MEDS ORDERED: LORazepam 1 MG in SYRINGE 0.5 ML IV ONE (15:23)
--- NOTE | 2023-09-25 17:55 | Discharge Summary ---
Date of Service September 25, 2023 Admission HPI Per Admitting Provider Deb Thomson is a 57yo female with history of COPD/Asthma, SMITA on CPAP, HTN, HLP, AF and DM as well as mechanical mitral valve on Coumadin anticoagulation presenting from home with right lumbar and sciatic pain. Patient reports she has had ongoing pain at her sternotomy site and bandlike pain around her chest since having her valve replacement. She follows with Pain Management and has had injections in her keloids for attempted pain control. She reports not much relief with this. She is to have her nerves ablation with Pain Management in the future. She has also had pain and buckling in her right knee. She has fallen in the past but nothing recent. She most recently began developing lumbar pain on the right side over the last three weeks. Over the last 3-4 days she has developed right buttock pain with radiation down the posterior thigh to the knee. She has had some difficulty with ambulation due to pain. She was able to sit upright several days ago but now has too much discomfort in any position other than left lateral recumbent. she has been taking Oxycodone 5mg po BID at home with no relief. She denies trauma. No complaints of bowel or bladder involvement. No additional complaints such as fever, chills, cough, SOB, abdominal pain, nausea, vomiting, diarrhea ER Course: Morphine 4mg IV x 2 Tylenol 1gm IV Gabapentin 100mg Methocarbamol 500mg Oxycodone 5mg PO Dexamethasone 10mg IV Lidoderm patch Admission Exam Per Admitting Provider Physical Exam: General: patient resting comfortably, NAD, non-toxic in appearance, AA&O x 4 Skin: warm, dry, intact, no rashes or lesions HEENT: NC/AT, PERRL, EOMI, anicteric sclera, conjunctiva without injection, external ear normal to inspection and nontender, nares patent, moist mucus membranes, dentition intact, no oropharyngeal lesions, neck supple, trachea midline, no LAD, no thyromegaly, no JVD Heart: +S1/S2, regular, no m/r/g Lungs: equal air entry bilaterally, no rales/rhonchi, diffuse end-expiratory wheezing Abd: +BS, soft, NT/ND, no masses/organomegaly/ascites Ext: warm, 2+ pulses in UE/LE bilaterally, no clubbing/cyanosis or edema Neuro: nonfocal, patient AA&O x 4, speech intact, no facial droop, moving all extremities on command with equal strength 5/5 Acute pain and sensitivity with palpation of right lumbar region and buttock. Some muscular tension and warmth noted. Principal Diagnosis Acute lumbar radiculopathy Discharge Exam Constitutional WD/WN, vitals as above Respiratory normal respiratory effort, lungs clear to auscultation Cardiovascular RRR, no murmur, no edema Gastrointestinal (Abdomen) normal bowel sounds, soft, nontender, no hepatosplenomegaly Musculoskeletal Spine: + thoracic spinal tenderness and + paraspinal tenderness Psychiatric A+Ox3, euthymic affect Discharge Data Allergies Allergy/AdvReac Type Severity Reaction Status Date / Time No Known Allergies Allergy Verified 09/19/23 08:21 Consultations 09/23/23 02:52 ED Decision to Admit Stat 09/23/23 05:12 Consult Pain Management Routine Ordered Studies 09/22/23 20:46 CT abd pelvis IV con only Stat CT lumbar spine w con Stat 09/25/23 08:43 MR lumbar spine wo con Routine Hospital Course (1) Acute lumbar radiculopathy: (2) Diabetes mellitus, type 2: (3) History of mitral valve replacement with mechanical valve: (4) Morbid obesity due to excess calories: (5) Knee pain, right: (6) Lumbar spinal stenosis: (7) Sacroiliac joint dysfunction of right side: Plan Plan Acute lumbar radiculopathy 57yo female presenting with acute lumbar pain, radiculopathy. No neurologic deficits. - Observation to medical - Tylenol 1gm PO TID - Morphine PRN (4 --> 2 g Q4h) due to transitioning to oxycodone, 5 mg, PO, QID - Continue Lyrica 150mg po TID - Flexeril 5mg po BID PRN - Lidoderm patch -Diclofenac 1% topical - Duloxetine, 30 mg, PO, daily --> continue as outpt - Patient says she has nerve ablation therapy appt scheduled for 12/15 - F/U w/ PCP for bridge pain mgmt until surgery in Nov 2022 Elevated INR/mild anemia - INR 3.8 <-- 5.6 (.03.) <-- 3.4 - warfarin dose held yesterday, pt recommended to continue home medication dose after discharge, F/U w/ PCP - Hgb 11.8 (12.04.23) <-- 12.0 - FOBT ordered, negative Constipation - patient stated today she had not had BM in 4 days, likely etiology chronic opiate Rx, other lifestyle factors/relative inactivity - Miralax, 17 g, QID T2DM, with obesity Overall un-controlled. Last [id number]=7.5 on 08/10/23 -Novolog sliding scale -Lantus 7u BID - Glu has been 105 - 260, will control more tightly if pt's hospital stay is extended Obstructive sleep apnea on CPAP Chronic. Stable. Patient is compliant with CPAP -CPAP qHS GERD Chronic. Stable -Continue Protonix 40mg po daily Hyperlipidemia Chronic. Stable -Continue Atorvastatin 40mg po daily Total Time Total Time Spent Total Time Spent (In Minutes): <30 Discharge Plan Discharge Items Patient Disposition: Home - Self-Care Reason For Visit: INTRACTABLE BACK PAIN Discharge Diagnosis: lumbar radiculopathy Activity: Resume your previous activity Non-emergency contact: Primary Care Provider, Neurologist and Pain Management Call non-emergency contact if: you have any medication questions, your symptoms worsen and your pain is concerning for you Follow-up/Referrals: Sugar Weber MD [Primary Care Provider] - Diet: Regular Addtl Attending Provider Instructions: You were admitted to the hospital for intractable back pain. With recommendations from pain management, we optimized your pain regimen as well as added some new medications for further relief. Changes: Oxycodone 5mg to be taken 4 times per day as needed Cyclobenzaprine 5mg to be taken 2 times per day as needed Tylenol 1000mg two times a day scheduled Docusate sodium 100mg twice a day scheduled Miralax 17 gram packet twice a day scheduled Duloxetine 30mg daily scheduled You may also purchase lidocaine patches over the counter for additional topical relief at site of back pain. Prior to discharge we obtained a new low back MRI. You should follow up with your pain management doctor to discuss these results. In addition to this, your INR was elevated while in the hospital. It seems to be coming back down to therapeutic levels. You can restart your home warfarin dose tomorrow and follow up with the coumadin clinic. Pending Studies at Discharge: Yes (MRI has been done, radiologist's reading of the films pending) Stand-Alone Forms: [facility], Smoking Cessation Medications and DC Order Prescriptions: New polyethylene glycol 3350 [Miralax] 17 gram Powder In Packet 17 g PO BID Qty: 30 0RF docusate sodium 100 mg Capsule 100 mg PO BID Qty: 30 0RF duloxetine 30 mg Capsule,Delayed Release(Dr/Ec) 30 mg PO QAM Qty: 30 0RF acetaminophen [Tylenol Extra Strength] 500 mg Tablet 1,000 mg PO BID Qty: 60 0RF Continued warfarin 5 mg tablet See Rx Instructions PO UD Qty: 260 1RF Rx Instructions: 15mg daily per [facility] orally use as directed; (DME) Hospital Bed Homecare [facility] [place] See Rx Instructions .Route Qty: 1 0RF Rx Instructions: As directed-HOSPITAL BED, LENGTH OF NEED 99 MONTHS, DX CODE; Z98.890 albuterol sulfate 90 mcg/actuation HFA aerosol inhaler 2 puff INHALATION Q6 PRN (Reason: Shortness Of Breath Or Wheezing) Qty: 18 5RF Proctofoam HC 1-1 % foam 1 applic CO BID PRN (Reason: hemorrhoids) Qty: 10 0RF Atrovent HFA 17 mcg/actuation HFA aerosol inhaler 2 puff INHALATION TID Qty: 12.9 5RF losartan 25 mg tablet 25 mg PO QAM 90 Days Qty: 90 5RF metoprolol succinate 25 mg tablet extended release 24 hr 25 mg PO QAM 90 Days Qty: 90 4RF atorvastatin 40 mg tablet 40 mg PO QPM 90 Days Qty: 90 2RF furosemide 40 mg tablet 80 mg PO QAM 90 Days Qty: 180 2RF lidocaine [Lidoderm] 5 % adhesive patch,medicated 1 patch topical DAILY Qty: 15 1RF Rx Instructions: leave on most painful area for up to 12 hrs nitroglycerin 0.4 mg tablet, sublingual 0.4 mg sublingual Q5M PRN (Reason: Chest Pain) Qty: 30 6RF Rx Instructions: do not exceed 3 doses per episode (DME) [facility] [place] See Rx Instructions .Route .MEDSUPPLY Qty: 1 0RF Rx Instructions: To be installed and used as directed to allow safe ambulation of stairs in patient home diclofenac sodium [Arthritis Pain (diclofenac)] 1 % gel 4 g topical QID PRN (Reason: Pain) Qty: 100 0RF dulaglutide 4.5 mg/0.5 mL pen injector 4.5 mg subcut .q7days 28 Days Qty: 2 5RF Rx Instructions: please inject 4.5mg once every 7 days (DME) Bedside Commode Misc See Rx Instructions .Route Qty: 1 0RF Rx Instructions: As directed pregabalin 150 mg capsule 150 mg PO TID 30 Days Qty: 90 3RF Nurtec ODT 75 mg tablet,disintegrating 75 mg PO DIRECTED PRN (Reason: Migraine Headache) Qty: 8 5RF Rx Instructions: 75 mg PO take one tablet at migraine onset as directed; metformin 500 mg tablet 1,000 mg PO BID 90 Days Qty: 360 2RF (DME) blood-glucose meter [OneTouch Verio Flex meter] [facility] [place] See Rx Instructions .Route Qty: 1 0RF Rx Instructions: Check blood sugar 1-2 times daily (DME) OneTouch Verio test strips Strip See Rx Instructions .Route Qty: 100 3RF Rx Instructions: Test blood sugar once daily and as needed (DME) lancets [OneTouch UltraSoft 2 Lancet] [facility] See Rx Instructions .Route Qty: 100 3RF Rx Instructions: Test blood sugar once daily and as needed potassium chloride 10 mEq capsule, extended release 20 meq PO QAM aspirin [Ecotrin Low Strength] 81 mg tablet,delayed release (DR/EC) 81 mg PO QAM pantoprazole 40 mg tablet,delayed release (DR/EC) 40 mg PO PM fluticasone furoate-vilanterol [Breo Ellipta] 100-25 mcg/dose blister with device 1 inh INHALATION QAM ipratropium-albuterol 0.5 mg-3 mg(2.5 mg base)/3 mL solution for nebulization 3 ml NEB Q6H PRN (Reason: wheezing/SOB/cough) Qty: 180 4RF Changed cyclobenzaprine 5 mg tablet 5 mg PO BID PRN (Reason: muscle spasm) 30 Days Qty: 20 0RF oxycodone 5 mg tablet 5 mg PO QID PRN (Reason: Pain, Severe) 30 Days Qty: 25 0RF Discharge Orders: Discharge Order (Routine); Ordered 09/25/23 Ordered By: Shaji Cedillo Admission Data Admit Date/Time: 09/25/23 15:44 Attending Provider: Shaji Cedillo Admit Provider: Eve Livingston Primary Care Provider: Sugar Weber Other Providers: Eve Livingston; Drake Robert; Kwaku Madison Other Interventions: Discharge Summary Assessment (RN) Last Done: 09/25/23 18:34 Supervising Physician Co-Signing Physician Notes I personally examined the patient and verified all duran points of history and exam, discussed case, and agree with decision making with Dr Bedoya a lot of pain, but notes that medicines are helping a good bit. Once she takes medicines she is able to at least ambulate, and take care of ADLs. She would like to go home after MRI is complete. Definitely is going to follow-up with pain management for ablation, but right now that is scheduled for about 2 months from now. She feels with her current medical regimen she will probably be okay at home. In review of PDMP, she had recently had a new prescription for oxycodone sent, but obviously the frequency has now been increased. Vitals noted, in general she is awake and alert pleasant no distress. HEENT normocephalic atraumatic mucous membranes moist. Breathing unlabored no accessory muscle use good effort. Skin shows no rashes no pallor or icterus. Neuro without focal deficits. Lumbar radiculopathy/intractable low back painnow improved on current med regimen. Anticipate the ability to wean meds after pain management interventional procedurebut obviously this will require for planning and coordination across multiple specialties, right now is scheduled for about 2 months from now, and may not be able to be moved up. She is currently stable and able to be discharged from the hospital on her current, albeit escalated med regimen. For pain control, oxycodone has been increased to 5 mg 4 times daily as needed, Tylenol scheduled, cyclobenzaprine increased to twice daily as needed. Safe/stable for home, close outpatient follow-up with PCP, pain management, etc. INR later this coming week.
--- NOTE | 2023-09-25 18:14 | Billing Data ---
Date of Service September 25, 2023 Coding Level of Care Code 68355 IN/OBS DISCH 30 MIN/LESS
--- NOTE | 2023-09-25 18:15 | Billing Data ---
Date of Service September 25, 2023 Coding Level of Care Code 51928 IN/OBS DISCH 30 MIN/LESS
--- NOTE | 2023-09-25 19:38 | Magnetic Resonance Report ---
MRI OF THE LUMBAR SPINE WITHOUT IV CONTRAST CLINICAL HISTORY: Chronic low back pain. Right lower extremity radiculopathy. COMPARISON STUDY: MRI of the lumbar spine dated 02/13/2020. CT of the lumbar spine dated 09/22/2023. TECHNIQUE: MRI of the lumbar spine was performed utilizing various T1 and T2-weighted sequences in th e axial and sagittal planes. IV contrast was not administered for this examination. The examination i s degraded by motion artifact. FINDINGS: Lumbar spine: Vertebral body height and alignment are maintained throughout the lumbar spine. Anterio r and lateral marginal osteophytes are seen throughout. The transverse and spinous processes appear i ntact. There is no evidence of spondylolysis. A small hemangioma is noted in the body of L1. No destr uctive bony lesion is seen. Chronic degenerative endplate changes noted at several levels. This is gr eatest at L5-S1. No significant endplate edema is identified. Intervertebral discs: Disc desiccation is seen throughout the lumbar spine. Mild to moderate loss of height is seen at L3-L4, L4-L5, and L5-S1. Spinal cord: The visualized spinal cord is normal in morphology and signal intensity. The conus medul scooter terminates at the level of L1. The nerve roots of the cauda equina are normal in morphology. L1-L2: Unremarkable. L2-L3: There is minimal posterior disc bulge. The central canal and neural foramina are clear. L3-L4: There is broad-based posterior disc bulge which abuts the transiting nerve roots. There is min imal acquired compromise of the central canal at this level with a minimum AP diameter of 8 mm. Later al disc bulges contribute to bilateral subarticular stenosis. These may abut the exiting bilateral L3 nerve roots. In conjunction with facet arthropathy, there is minimal bilateral neural foraminal narr owing. L4-L5: There is broad-based posterior disc bulge with annular fissure. This abuts the transiting nerv e roots. There is no significant acquired compromise of the central canal this level. Lateral disc bu lges contribute to bilateral subarticular stenosis and may abut the exiting bilateral L4 nerve roots. In conjunction with facet arthropathy, there is mild right and [id number] left neural foramina l stenosis. L5-S1: There is broad-based posterior disc bulge with annular fissure. This abuts the transiting nerv e roots. An inferiorly extruded and possibly sequestered fragment is seen eccentric to left on axial image #29 and sagittal image #7. This impinges on the transiting right S1 nerve root. The extruded fr agment measures up to 9 mm. There is no significant central canal stenosis at this level. Lateral dis c bulges contribute to bilateral subarticular stenosis with probable impingement on the exiting bilat eral L5 nerve roots. In conjunction with facet arthropathy, there is moderate to severe bilateral wallace ral foraminal narrowing, left greater than right. Sacrum: The visualized sacrum is normal in morphology and signal intensity. Soft tissues: The paraspinous soft tissues are within normal limits. The visualized retroperitoneal s tructures are grossly unremarkable but incompletely evaluated. A cystic structure is partially visual ized in the right adnexa on sagittal image #4. IMPRESSION: 1. Inferiorly extruded and possibly sequestered disc fragment eccentric to the right at L5-S1. This i mpinges on the transiting right S1 nerve root. 2. Multilevel lumbosacral spondylosis at additional levels as above. See discussion for detailed leve l by level analysis. 3. No destructive bony lesion is seen. 4. Degenerative disc disease as above with chronic endplate change. 5. An indeterminate cystic structure is partially visualized in the left adnexa. Nonemergent pelvic u ltrasound and gynecology evaluation is recommended. Dictated: 09/25/2023 6:21 PM Transcribed: 09/25/2023 6:42 PM Roseanne [id number] Electronically signed by: Marin De La Rosa M.D. 09/25/2023 7:36 PM
[2023-09-25] MEDS ORDERED: DOCUSATE SODIUM 100 MG CAP PO SCH (21:00)
== END 2023-09-25 19:05 | disposition home or self-care (01) | DRG 552 ==
LOC: ED 16:26 → 3W 16:26 → SUATTDRO 09-23 02:58 → 3W 09-23 04:05

== ENCOUNTER 2023-10-26 10:46 | Observation (INO) ==
--- NOTE | 2023-10-26 11:03 | Emergency Department Note ---
Impression & Plan Chest pain ED Provider Note NAME: CYRUS HALL AGE: 58 SEX: F : 1965 ARRIVES VIA: Ambulance INFORMANT: Patient, ED PROVIDER(S): Denise Eubanks MD CHIEF COMPLAINT: Chest pain HPI: This is a 58-year-old female with history of CHF, TIA, mitral valve replacement, type 2 diabetes presenting for chest pain. Patient states the last few days she has had intermittent episodes of chest pain. She notes it is worse with coughing. Also notes that she has had headache, nausea and episode of vomiting. She has noticed diaphoresis occasionally as well related to the chest pain. She does she does have a mechanical heart valve now and takes warfarin. ROS: See above HPI for pertinent positives & negatives. A total of 10 systems reviewed and were otherwise negative. PAST MEDICAL HISTORY: See Below PAST SURGICAL HISTORY: See Below FAMILY HISTORY: See Below SOCIAL HISTORY: See Below HOME MEDICATIONS: See Below ALLERGIES: See Below VITALS: See Below PHYSICAL EXAMINATION: General: resting comfortably in no acute distress Head: Normocephalic and atraumatic Eyes: Normal inspection, extraocular muscles intact Ear, nose, throat: Normal external exam Neck: Normal range of motion Respiratory: lungs clear to auscultation bilaterally Cardiovascular: Regular rate/rhythm, no murmur GI: soft, nontender, no guarding or rebound Extremities: nontender, moves all extremities Neuro: The patient awake and alert, appropriately conversive, no focal deficits, symmetric faces Skin: Warm, dry, and intact MEDICAL DECISION MAKING: This is a 58-year-old female with history of CHF, TIA, collateral placement not had 2 diabetes transferred chest pain. Patient has had multiple day history. patient has moderate heart score already. -Chest Xray independently interpreted by me showing cardiomegaly but no pneumothorax, focal opacity, or pleural effusions. -ECG independently interpreted by me with unusual P wave axis, rate of 79, normal MO, normal QRS, normal QTc, no ST segment elevations consistent with STEMI criteria -Lab work is effusion leukocytosis, no anemia, INR is 3.0. -Troponins initially negative -Patient has persistent chest pain at this time, will admit for further ACS rule out as patient does have extensive cardiac history Past Med/Surg History Medical History Lumbar disc herniation with radiculopathy Lumbar spinal stenosis Obstructive sleep apnea on CPAP Diabetes mellitus, type 2 Hyperlipidemia Lumbar facet joint syndrome Parainfluenza infection with pneumonia > resolved per pt Asthma exacerbation with COPD (chronic obstructive pulmonary disease) uses res inh approx 2x per week Postoperative keloid scar sternal Chronic systolic (congestive) heart failure CHF exacerbation Hyperglycemia due to type 2 diabetes mellitus Atrial fibrillation no pacer > med controlled per pt Tobacco abuse Dyspnea on exertion so severe pt is wheelchair bound (per [facility] record) Mitral valve insufficiency History of COVID-2020 Asthma-COPD overlap syndrome History of pulmonary embolism on warfarin > 2021 > no known cause Chronic diastolic congestive heart failure GERD (gastroesophageal reflux disease) Hx of coronary artery disease Chronic low back pain Vertigo CSF leak hx > resolved per pt Degeneration of cervical intervertebral disc External hemorrhoids Hemiplegic migraine Urinary incontinence Vitamin D deficiency Hypertension Vertebral artery stenosis Surgical History History of mitral valve replacement with mechanical valve S/P MVR (mitral valve repair) Aug 26 2022 > [place] History of transesophageal echocardiography (GEORGETTE) performed 06/21/22 @ [facility]---per report pt has severe mitral valve insufficiency History of hemorrhoidectomy (~2017) @ [facility] S/p tibial fracture open treatment of Fx with plate/screws, Left leg History of mandibular surgery S/P left knee arthroscopy History of bilateral tubal ligation Status post right foot surgery Facial fracture (2014) WITH RECONSTRUCTION History of esophagogastroduodenoscopy (EGD) History of colonoscopy History of heart artery stent X2 STENTS (2010) UNSURE OF KIND. NO STENT CARDS PER PT. History of cardiac cath X2 STENTS - (~2010, IN [place], [place] NO STENTS - ([facility] @ ~2014) No stents ([facility] 05/11/2022) - Follows Nita JOHNSON Family History Mother Breast cancer, Onset Age: 64 Type 2 diabetes mellitus Father Diabetes Coronary heart disease Type 2 diabetes mellitus Myocardial infarction, Onset Age: 52 Family/Other Hypertension sibling Grandmother (Maternal) Cancer Grandfather (Maternal) Cancer Denies family history of Ovarian cancer Social History Smoking Status: Current every day smoker Tobacco Type: Cigarettes Age Started Using Tobacco: 13; Age Quit Using Tobacco: 56; packs per day: 0.5; Cigarettes Per Day: 3-7; Second Hand Exposure: No; Do You Dip or Chew Tobacco: No; Hx Alcohol Use: No Hx Substance Use: No Preferred Language: Namibian Communication Ability: Effective Visual Impairment: No Limitations Hearing Ability: Normal 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 Beliefs That Will Affect Care: None marital status: Current Living Situation: Spouse Current Living Situation Comment: Home with current occupational status: disabled How many Children do You have: 5 Feels Safe at Home: Yes Childhood Exposure to Second-Hand Smoke: No Diet: low salt caffeine: Yes (1/2 cup of coffee a day) during the past year weight has: remained stable Dental Care, Regularly: No Physical Activity Frequency: 1-2 Times per Week Seatbelt Use: always Sunscreen Use: No Assistive Devices: Cane, Nebulizer and Wheelchair Allergies Allergies Allergy/AdvReac Type Severity Reaction Status Date / Time No Known Allergies Allergy Verified 10/26/23 16:22 Home Meds Home Medications Medication Instructions Recorded Confirmed aspirin 81 mg tablet,delayed 81 mg PO QAM 07/24/23 10/26/23 release (Ecotrin Low Strength) fluticasone furoate 100 1 inh inhalation QAM 07/24/23 10/26/23 mcg-vilanterol 25 mcg/dose inhalation powder (Breo Ellipta) pantoprazole 40 mg tablet,delayed 40 mg PO PM 07/24/23 10/26/23 release potassium chloride 10 mEq 20 meq PO BID 09/26/23 10/26/23 capsule,extended release dulaglutide 4.5 mg/0.5 mL 4.5 mg subcut WK 10/26/23 10/26/23 subcutaneous pen injector ipratropium 0.5 mg-albuterol 3 mg 3 ml NEB Q6H 10/26/23 10/26/23 (2.5 mg base)/3 mL nebulization soln nicotine 21 mg/24 hr daily 21 mg transdermal QAM 10/26/23 10/26/23 transdermal patch warfarin 5 mg tablet 10 mg PO 3XWK 10/26/23 10/26/23 warfarin 5 mg tablet 15 mg PO 4XWK 10/26/23 10/26/23 Previous Rx's Medication Instructions Recorded Bedside Commode #1 ea 08/04/22 Hospital Bed Homecare #1 ea 08/12/22 albuterol sulfate 90 mcg/actuation 2 puff inhalation Q6 PRN Shortness 05/17/23 aerosol inhaler Of Breath Or Wheezing #18 grams hydrocortisone 1 %-pramoxine 1 % 1 applic MO BID PRN hemorrhoids 05/17/23 rectal foam (Proctofoam HC) #10 grams ipratropium bromide 17 2 puff inhalation TID #12.9 grams 05/17/23 mcg/actuation HFA aerosol inhaler (Atrovent HFA) losartan 25 mg tablet 25 mg PO QAM 90 days #90 tabs 05/17/23 metoprolol succinate 25 mg 25 mg PO QAM 90 days #90 tabs 05/17/23 tablet,extended release 24 hr atorvastatin 40 mg tablet 40 mg PO QPM 90 days #90 tabs 06/19/23 pregabalin 150 mg capsule 150 mg PO TID 30 days #90 caps 07/07/23 rimegepant 75 mg disintegrating 75 mg PO DIRECTED PRN Migraine 07/07/23 tablet (Nurtec ODT) Headache #8 tabs blood-glucose meter (OneTouch #1 ea 07/13/23 Verio Flex Meter) lidocaine 5 % topical patch 1 patch topical DAILY #15 ea 07/16/23 (Lidoderm) blood sugar diagnostic (OneTouch #100 ea 07/27/23 Verio test strips) lancets 30 gauge (OneTouch #100 ea 07/27/23 UltraSoft 2 Lancet) nitroglycerin 0.4 mg sublingual 0.4 mg sublingual Q5M PRN Chest 08/09/23 tablet Pain #30 tabs Stair [place] #1 ea 08/10/23 diclofenac sodium 1 % topical gel 4 g topical QID PRN Pain #100 grams 09/02/23 (Arthritis Pain (diclofenac)) metformin 500 mg tablet 1,000 mg (2 x 500 mg) PO BID 90 09/12/23 days #360 tabs acetaminophen 500 mg tablet 1,000 mg (2 x 500 mg) PO BID #60 09/25/23 (Tylenol Extra Strength) tabs docusate sodium 100 mg capsule 100 mg PO BID #30 caps 09/25/23 polyethylene glycol 3350 17 gram 17 g PO BID #30 ea 09/25/23 oral powder packet (Miralax) furosemide 40 mg tablet 80 mg (2 x 40 mg) PO QAM 90 days 10/02/23 #180 tabs cyclobenzaprine 5 mg tablet 5 mg PO BID PRN muscle spasm 30 10/26/23 days #20 tabs duloxetine 30 mg capsule,delayed 30 mg PO QAM 30 days #30 caps 10/26/23 release oxycodone 5 mg tablet 5 mg PO QID PRN Pain, Severe 30 10/26/23 days #25 tabs Results & Data (ED) Vital Signs Vital Signs - 24 hr 10/26/23 10:55 10/26/23 11:00 10/26/23 11:01 Temperature 37.1 C Temperature Source Oral Pulse Rate 82 80 82 Pulse Rate [Apical] Pulse Rate from SpO2 Sensor 81 83 Respiratory Rate 21 17 18 Respiratory Depth Normal Blood Pressure 164/81 H Blood Pressure [Right Arm] Blood Pressure Mean 108 Blood Pressure Mean [Right Arm] Pulse Oximetry 98 99 99 Oxygen Delivery Method Room Air Sepsis Recent Fever Within 48 Hours No Sepsis New/Unexplained Change in Mental Status No Sepsis Action Taken by Nursing No Action Required 10/26/23 11:01 10/26/23 11:11 10/26/23 12:00 Temperature Temperature Source Pulse Rate 82 76 Pulse Rate [Apical] Pulse Rate from SpO2 Sensor Respiratory Rate 18 Respiratory Depth Blood Pressure 164/81 H Blood Pressure [Right Arm] Blood Pressure Mean 97 Blood Pressure Mean [Right Arm] Pulse Oximetry Oxygen Delivery Method Sepsis Recent Fever Within 48 Hours Sepsis New/Unexplained Change in Mental Status Sepsis Action Taken by Nursing 10/26/23 12:09 10/26/23 12:09 10/26/23 12:33 Temperature Temperature Source Pulse Rate 75 Pulse Rate [Apical] 74 Pulse Rate from SpO2 Sensor Respiratory Rate 20 18 Respiratory Depth Blood Pressure Blood Pressure [Right Arm] 164/81 H Blood Pressure Mean Blood Pressure Mean [Right Arm] 108 Pulse Oximetry 98 97 Oxygen Delivery Method Room Air Room Air Sepsis Recent Fever Within 48 Hours Sepsis New/Unexplained Change in Mental Status Sepsis Action Taken by Nursing 10/26/23 13:00 10/26/23 14:00 10/26/23 14:00 Temperature Temperature Source Pulse Rate 74 73 Pulse Rate [Apical] 72 Pulse Rate from SpO2 Sensor Respiratory Rate 16 18 22 Respiratory Depth Blood Pressure Blood Pressure [Right Arm] 164/81 H Blood Pressure Mean Blood Pressure Mean [Right Arm] 108 Pulse Oximetry 98 Oxygen Delivery Method Sepsis Recent Fever Within 48 Hours Sepsis New/Unexplained Change in Mental Status Sepsis Action Taken by Nursing 10/26/23 15:00 10/26/23 16:00 10/26/23 16:14 Temperature Temperature Source Pulse Rate 71 79 79 Pulse Rate [Apical] Pulse Rate from SpO2 Sensor 81 Respiratory Rate 24 25 H Respiratory Depth Blood Pressure Blood Pressure [Right Arm] Blood Pressure Mean Blood Pressure Mean [Right Arm] Pulse Oximetry 98 Oxygen Delivery Method Room Air Sepsis Recent Fever Within 48 Hours Sepsis New/Unexplained Change in Mental Status Sepsis Action Taken by Nursing Laboratory Data 10/26/23 11:02 10/26/23 11:02 Lab Results 10/26/23 Range/Units 11:02 WBC 8.01 (4.8-10.8) K/ul RBC 4.58 (4.20-5.40) M/uL Hgb 12.9 (12.0-16.0) g/dl Hct 41.4 (37.0-47.0) % MCV 90.4 (80.0-100.0) fL MCH 28.2 (25.0-34.0) pg MCHC 31.2 L (32.0-36.0) g/dL RDW Std Deviation 52.3 H (36.4-46.3) fL RDW Coeff of Majo 15.8 H (11.5-14.5) % Plt Count 251 (130-400) K/uL MPV 11.7 (9.4-12.4) fL Immature Gran % (Auto) 0.1 % Neut % (Auto) 54.3 % Lymph % (Auto) 38.2 % [place] % (Auto) 5.6 % Eos % (Auto) 1.6 % Baso % (Auto) 0.2 % Neut # (Auto) 4.34 (1.40-6.50) K/uL Lymph # (Auto) 3.06 (1.20-3.40) K/uL [place] # (Auto) 0.45 (0.11-0.59) K/uL Eos # (Auto) 0.13 (0.00-0.50) K/uL Baso # (Auto) 0.02 (0.00-0.20) K/uL Immature Gran # (Auto) 0.01 (0.01-0.20) K/uL PT 30.6 H (9.0-12.0) Seconds INR 3.0 H (0.9-1.1) Sodium 141 (136-145) mmol/L Potassium 3.5 (3.5-5.1) mmol/L Chloride 103 (98-107) mmol/L Carbon Dioxide 29 (21-32) mmol/L Anion Gap 9 (3-11) BUN 19 (6-23) mg/dl Creatinine 0.87 (0.6-1.2) mg/dl Est Cr Clr Drug Dosing 89.9 ml/min Est GFR ( Amer) 84.5 ml/min Est GFR (Non-Af Amer) 72.9 ml/min BUN/Creatinine Ratio 21.8 H (10-20) Glucose 136 H (70-99(Fasting)) mg/dl Calcium 9.4 (8.6-10.3) mg/dl Total Bilirubin 0.4 (0.2-1.0) mg/dl AST 21 (13-39) U/L ALT 15 (7-52) U/L Alkaline Phosphatase 142 H (34-104) U/L Troponin I High Sens 8.4 (0-14) pg/ml Total Protein 7.9 (6.0-8.3) gm/dl Albumin 4.3 (3.4-5.0) gm/dl Globulin 3.6 (2.5-4.0) gm/dl Albumin/Globulin Ratio 1.2 (0.9-2) Lipase 64 (11-82) U/L SARS-CoV-2 (PCR) NEGATIVE (Negative) Influenza Type A (PCR) Negative (Neg) Influenza Type B (PCR) Negative (Neg) RSV (RT-PCR) Negative (Neg) Administered Medications Discontinued Medications Lidocaine (Lidocaine 5% 1 Patch) 1 patch TD NOW STA Stop: 10/26/23 15:11 Last Admin: 10/26/23 15:46 Dose: 1 patch Documented By: KATIE Imaging Data Radiologist's Impression: Chest X-Ray 10/26/23 11:00 SINGLE VIEW CHEST CLINICAL HISTORY: Atypical chest pain. FINDINGS: An AP, portable, upright chest radiograph is compared to study dated 09/22/2023 and correlated with chest CT dated 04/18/2023. The patient is status post midline sternotomy and cardiac valve surgery. The heart is enlarged. The pulmonary vasculature is noncongested. Chronic interstitial thickening is similar to previous. There is mild bibasilar scarring/atelectasis. The lungs and pleural spaces are otherwise clear. No pneumothorax is seen. The skeletal structures are osteopenic. The bony thorax is grossly intact. IMPRESSION: Cardiomegaly with no active disease in the chest. ACT 112: Negative or not required by law. Electronically signed by: Marin De La Rosa M.D. 10/26/2023 11:16 AM Discharge Plan Visit Data Chief Complaint: Chest Pain ED Provider: Denise Eubanks Discharge Problem: Chest pain Forms Stand Alone Forms: [facility] Prescriptions Prescriptions: No Action (DME) Hospital Bed Homecare Replaced By [facility] See Rx Instructions .Route Qty: 1 0RF Rx Instructions: As directed-HOSPITAL BED, LENGTH OF NEED 99 MONTHS, DX CODE; Z98.890 albuterol sulfate 90 mcg/actuation HFA aerosol inhaler 2 puff INHALATION Q6 PRN (Reason: Shortness Of Breath Or Wheezing) Qty: 18 5RF Proctofoam HC 1-1 % foam 1 applic MO BID PRN (Reason: hemorrhoids) Qty: 10 0RF Atrovent HFA 17 mcg/actuation HFA aerosol inhaler 2 puff INHALATION TID Qty: 12.9 5RF losartan 25 mg tablet 25 mg PO QAM 90 Days Qty: 90 5RF metoprolol succinate 25 mg tablet extended release 24 hr 25 mg PO QAM 90 Days Qty: 90 4RF atorvastatin 40 mg tablet 40 mg PO QPM 90 Days Qty: 90 2RF lidocaine [Lidoderm] 5 % adhesive patch,medicated 1 patch topical DAILY Qty: 15 1RF Rx Instructions: leave on most painful area for up to 12 hrs nitroglycerin 0.4 mg tablet, sublingual 0.4 mg sublingual Q5M PRN (Reason: Chest Pain) Qty: 30 6RF Rx Instructions: do not exceed 3 doses per episode (DME) Stair Brighton See Rx Instructions .Route .MEDSUPPLY Qty: 1 0RF Rx Instructions: To be installed and used as directed to allow safe ambulation of stairs in patient home diclofenac sodium [Arthritis Pain (diclofenac)] 1 % gel 4 g topical QID PRN (Reason: Pain) Qty: 100 0RF potassium chloride 10 mEq capsule, extended release 20 meq PO BID Patient Comments: PT STATES THAT SHE TAKES TWICE A DAY. 12/5 furosemide 40 mg tablet 80 mg PO QAM 90 Days Qty: 180 2RF Rx Instructions: MAY TAKE AN EXTRA 40MG DAILY, NEEDED, FOR WEIGHT GAIN. duloxetine 30 mg capsule,delayed release(DR/EC) 30 mg PO QAM 30 Days Qty: 30 3RF oxycodone 5 mg tablet 5 mg PO QID PRN (Reason: Pain, Severe) 30 Days Qty: 25 0RF cyclobenzaprine 5 mg tablet 5 mg PO BID PRN (Reason: muscle spasm) 30 Days Qty: 20 1RF (DME) Bedside Commode Mis See Rx Instructions .Route Qty: 1 0RF Rx Instructions: As directed pregabalin 150 mg capsule 150 mg PO TID 30 Days Qty: 90 3RF Nurtec ODT 75 mg tablet,disintegrating 75 mg PO DIRECTED PRN (Reason: Migraine Headache) Qty: 8 5RF Rx Instructions: 75 mg PO take one tablet at migraine onset as directed; metformin 500 mg tablet 1,000 mg PO BID 90 Days Qty: 360 2RF (DME) blood-glucose meter [OneTouch Verio Flex meter] [facility] See Rx Instructions .Route Qty: 1 0RF Rx Instructions: Check blood sugar 1-2 times daily (DME) OneTouch Verio test strips Strip See Rx Instructions .Route Qty: 100 3RF Rx Instructions: Test blood sugar once daily and as needed (DME) lancets [OneTouch UltraSoft 2 Lancet] 30 gauge [facility] See Rx Instructions .Route Qty: 100 3RF Rx Instructions: Test blood sugar once daily and as needed aspirin [Ecotrin Low Strength] 81 mg tablet,delayed release (DR/EC) 81 mg PO QAM pantoprazole 40 mg tablet,delayed release (DR/EC) 40 mg PO PM fluticasone furoate-vilanterol [Breo Ellipta] 100-25 mcg/dose blister with device 1 inh INHALATION QAM polyethylene glycol 3350 [Miralax] 17 gram Powder In Packet 17 g PO BID Qty: 30 0RF docusate sodium 100 mg Capsule 100 mg PO BID Qty: 30 0RF acetaminophen [Tylenol Extra Strength] 500 mg Tablet 1,000 mg PO BID Qty: 60 0RF dulaglutide 4.5 mg/0.5 mL pen injector 4.5 mg subcut WK Rx Instructions: please inject 4.5mg once every MONDAY ipratropium-albuterol 0.5 mg-3 mg(2.5 mg base)/3 mL solution for nebulization 3 ml NEB Q6H nicotine 21 mg/24 hr patch 24 hour 21 mg transdermal QAM warfarin 5 mg tablet 10 mg PO 3XWK Rx Instructions: 10/26/23 : TAKE 10MG EVERY MONDAY/MONDAY/MONDAY. warfarin 5 mg Tablet 15 mg PO 4XWK Rx Instructions: 10/26/23 : TAKE 15MG EVERY MONDAY/MONDAY/MONDAY/MONDAY. Referrals Referrals: Sugar Weber MD [Primary Care Provider] -
--- NOTE | 2023-10-26 11:19 | XRay Report ---
SINGLE VIEW CHEST CLINICAL HISTORY: Atypical chest pain. FINDINGS: An AP, portable, upright chest radiograph is compared to study dated 09/22/2023 and correlat ed with chest CT dated 04/18/2023. The patient is status post midline sternotomy and cardiac valve joel shamika. The heart is enlarged. The pulmonary vasculature is noncongested. Chronic interstitial thickeni ng is similar to previous. There is mild bibasilar scarring/atelectasis. The lungs and pleural spaces are otherwise clear. No pneumothorax is seen. The skeletal structures are osteopenic. The bony thora x is grossly intact. IMPRESSION: Cardiomegaly with no active disease in the chest. ACT 112: Negative or not required by law. Electronically signed by: Marin De La Rosa M.D. 10/26/2023 11:16 AM
[2023-10-26 11:26] LABS: Basophils # (auto) 0.02 K/uL (0.00-0.20); Basophils % (auto) 0.2 %; Eosinophils # (auto) 0.13 K/uL (0.00-0.50); Eosinophils % (auto) 1.6 %; Hematocrit (blood only) 41.4 % (37.0-47.0); Hemoglobin 12.9 g/dl (12.0-16.0); Immature Granulocytes # (auto) 0.01 K/uL (0.01-0.20); Immature Granulocytes % (auto) 0.1 %; Lymphocytes # (auto) 3.06 K/uL (1.20-3.40); Lymphocytes % (auto) 38.2 %; Mean Corpuscular Hemoglobin 28.2 pg (25.0-34.0); Mean Corpuscular Hgb Conc 31.2 g/dL (32.0-36.0); Mean Corpuscular Volume 90.4 fL (80.0-100.0); Mean Platelet Volume 11.7 fL (9.4-12.4); Monocytes # (auto) 0.45 K/uL (0.11-0.59); Monocytes % (auto) 5.6 %; Neutrophils # (auto) 4.34 K/uL (1.40-6.50); Neutrophils % (auto) 54.3 %; Platelet Count 251 K/uL (130-400); RDW Coefficient of Variation 15.8 % (11.5-14.5); RDW Standard Deviation 52.3 fL (36.4-46.3); Red Blood Count 4.58 M/uL (4.20-5.40); White Blood Count 8.01 K/ul (4.8-10.8)
[2023-10-26 11:38] LABS: Albumin Globulin Ratio 1.2 (0.9-2); Albumin Level 4.3 gm/dl (3.4-5.0); BUN Creatinine Ratio 21.8 (10-20); Bilirubin,Total 0.4 mg/dl (0.2-1.0); Calcium 9.4 mg/dl (8.6-10.3); Creatinine Clr Calc Pharmacy 89.9 ml/min; Est GFR (African American) 84.5 ml/min; Est GFR (Non-African American) 72.9 ml/min; Globulin 3.6 gm/dl (2.5-4.0); Potassium 3.5 mmol/L (3.5-5.1); Total Protein 7.9 gm/dl (6.0-8.3)
[2023-10-26 11:44] LABS: Troponin I High Sensitivity 8.4 pg/ml (0-14)
[2023-10-26 12:06] LABS: Prothrombin Time 30.6 Seconds (9.0-12.0)
[2023-10-26 12:10] LABS: Influenza A virus by PCR Negative (Neg); Influenza B virus by PCR Negative (Neg); RSV by PCR Negative (Neg); SARS CoV2 RNA(COVID-19) Ceph NEGATIVE (Negative)
--- NOTE | 2023-10-26 14:31 | History & Physical Report ---
Date of Service October 26, 2023 Assessment & Plan (1) Chest pain: Plan: Deb is a 58-year-old female with a history of CHF, MVR, type II DM, TIA who presents with intermittent chest pain for several days which is worse when coughing. Chest pain Patient with 24-48 hours of left-sided chest pain under her breast with radiation to her left shoulder associated with sweats and shortness of breath 8/10 in quality and unremitting over the last 24 hours. This is not worsened with exertion and does not have a correlation with exercise. Pain is strongly reproducible on left breast and shoulder palpation, patient denies injury/trauma. Full range of motion of the left shoulder without pain hs-trop normal. repeat pending EKG: Normal sinus rhythm without territorial ST segment changes, T wave inversions are present in lateral leads with no change compared to EKG 09/22/2023 Patient has a history of keloid and complicated regional pain syndrome following valve replacement, she feels that her pain is completely different in quality in a different location than prior pain. Does not appear consistent with ACS. Low suspicion for cardiac etiology, discussed with cardiology and reasonable to get a echo. No additional cardiac testing indicated at this time. - INR 3.0 on admission Patient has been within therapeutic range with very limited lows on past review and was actually high earlier this month. Low suspicion for VTE/PE as cause of pain Patient has complex chronic pain. Will obtain echo as noted, low suspicion for VTE/PE, and easily reproducible pain on palpation is suggestive of musculoskeletal/costochondritis pain especially as this started after and is worse with coughing. continue multimodal pain control, continue home pain regimen. (2) Chronic systolic (congestive) heart failure: Plan: CHF Last echo 07/2023: EF 60 to 65%. Mechanical valve with normal opening. No wall motion abnormalities. Heart cath 04/2022 was with angiographically normal coronary arteries. Subsequently referred for mitral repair. Noted to have noncardiac causes of chest pain at that time Anticoagulated with warfarin due to mechanical valve replacement, therapeutic with goal 2.53.5 (3) SMITA on CPAP: Plan: SMITA CPAP nightly (4) DMII (diabetes mellitus, type 2): Plan: Type II DM, poor control Goal BSG 164708 Lantus 7 units twice daily Continue sliding scale Type II DM diet Home dulaglutide/metformin held (5) GERD (gastroesophageal reflux disease): Plan: GERD Protonix daily, no acute exacerbation (6) Chronic pain syndrome: Plan: Chronic low back pain/lumbar disc of radiculopathy Follows with pain management and Dr. Cheney as outpatient No indication for acute change in management Last pain management visit 10/02/2023 noted to be stable on Lyrica, oxycodone, duloxetine, cyclobenzaprine. Pending orthospine follow-up as outpatient. - No limb weakness/sensory loss on admit. Ches tpain is not in a dermatomal/radicular distribution. EMG 09/26/2023: Consistent with diabetic neuropathy and pinched nerve Plan DVT prophylaxis: Anticoagulated Disposition: Medical telemetry for chest pain Diet: Heart healthy/DM2 CODE STATUS: Full code History of Present Illness Primary Care Provider: Sugar eWber MD 3-4 days ago has some nausea. 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 Endorses shortness of breath with it. Has vomited 3x as well, no blood. +having sweats last night and this morning without fever. Pain has not gone away at any point. Pain is 8/10 in intensity and has not improved since last night and is an achy to sharp pain. Much worse with cough, feels like a 'stabbing pain.'. No history of leg swelling. She is on warfarin for her mechanical valve. Goal is 2.5-3.5. INR today is 3.0. Pain is worse with coughing no other worsening factors. No worsening with exertion. Pain persists at rest. Diarrhea light brown yesterday NO pain with meals. No gallstone problems, has a history of cholecystitis without cholecystectomy. Tx with abx. Hx of PE prior to being on warfarin. She has had genetic testing at that time which was negative. Did have some type of damage around the clot at the time. This was in ebeg of 2021, started wafarin a few months later after having her valve replaced. OPen heart surgery was Aug 26 2023. Did not take any medications this morning. EF 07/2023 with normal EF no wall motion abnormalities. Medical History: Reviewed Medications: Reviewed Surgical History: Reviewed Family history: Reviewed Allergies: Reviewed Social History: Reviewed Code Status: Full Allergies Allergy/AdvReac Type Severity Reaction Status Date / Time No Known Allergies Allergy Verified 10/02/23 08:07 Home Medications Medication Instructions Recorded Confirmed Type Bedside Commode #1 ea 08/04/22 10/20/23 Rx Hospital Bed Homecare #1 ea 08/12/22 10/20/23 Rx ipratropium 0.5 mg-albuterol 3 mg 3 ml NEB Q6H PRN 01/22/23 10/20/23 Rx (2.5 mg base)/3 mL nebulization wheezing/SOB/cough #180 mL soln albuterol sulfate 90 mcg/actuation 2 puff inhalation Q6 PRN Shortness 05/17/23 10/20/23 Rx aerosol inhaler Of Breath Or Wheezing #18 grams hydrocortisone 1 %-pramoxine 1 % 1 applic LA BID PRN hemorrhoids 05/17/23 10/20/23 Rx rectal foam (Proctofoam HC) #10 grams ipratropium bromide 17 2 puff inhalation TID #12.9 grams 05/17/23 10/20/23 Rx mcg/actuation HFA aerosol inhaler (Atrovent HFA) losartan 25 mg tablet 25 mg PO QAM 90 days #90 tabs 05/17/23 10/20/23 Rx metoprolol succinate 25 mg 25 mg PO QAM 90 days #90 tabs 05/17/23 10/20/23 Rx tablet,extended release 24 hr atorvastatin 40 mg tablet 40 mg PO QPM 90 days #90 tabs 06/19/23 10/20/23 Rx pregabalin 150 mg capsule 150 mg PO TID 30 days #90 caps 07/07/23 10/20/23 Rx rimegepant 75 mg disintegrating 75 mg PO DIRECTED PRN Migraine 07/07/23 10/20/23 Rx tablet (Nurtec ODT) Headache #8 tabs blood-glucose meter (OneTouch #1 ea 07/13/23 10/20/23 Rx Verio Flex Meter) lidocaine 5 % topical patch 1 patch topical DAILY #15 ea 07/16/23 10/20/23 Rx (Lidoderm) aspirin 81 mg tablet,delayed 81 mg PO QAM 07/24/23 10/20/23 History release (Ecotrin Low Strength) fluticasone furoate 100 1 inh inhalation QAM 07/24/23 10/20/23 History mcg-vilanterol 25 mcg/dose inhalation powder (Breo Ellipta) pantoprazole 40 mg tablet,delayed 40 mg PO PM 07/24/23 10/20/23 History release blood sugar diagnostic (OneTouch #100 ea 07/27/23 10/20/23 Rx Verio test strips) lancets 30 gauge (OneTouch #100 ea 07/27/23 10/20/23 Rx UltraSoft 2 Lancet) nitroglycerin 0.4 mg sublingual 0.4 mg sublingual Q5M PRN Chest 08/09/23 10/20/23 Rx tablet Pain #30 tabs Stair Gentry #1 ea 08/10/23 10/20/23 Rx diclofenac sodium 1 % topical gel 4 g topical QID PRN Pain #100 grams 09/02/23 10/20/23 Rx (Arthritis Pain (diclofenac)) metformin 500 mg tablet 1,000 mg (2 x 500 mg) PO BID 90 09/12/23 10/20/23 Rx days #360 tabs dulaglutide 4.5 mg/0.5 mL 4.5 mg (0.5 mL) subcut .q7days 28 09/19/23 10/20/23 Rx subcutaneous pen injector days #2 mL acetaminophen 500 mg tablet 1,000 mg (2 x 500 mg) PO BID #60 09/25/23 10/20/23 Rx (Tylenol Extra Strength) tabs docusate sodium 100 mg capsule 100 mg PO BID #30 caps 09/25/23 10/20/23 Rx polyethylene glycol 3350 17 gram 17 g PO BID #30 ea 09/25/23 10/20/23 Rx oral powder packet (Miralax) potassium chloride 10 mEq 20 meq PO BID 09/26/23 10/20/23 History capsule,extended release furosemide 40 mg tablet 80 mg (2 x 40 mg) PO QAM 90 days 10/02/23 10/20/23 Rx #180 tabs warfarin 5 mg tablet See Rx Instructions PO UD #240 tabs 10/04/23 10/20/23 Rx cyclobenzaprine 5 mg tablet 5 mg PO BID PRN muscle spasm 30 10/26/23 Rx days #20 tabs duloxetine 30 mg capsule,delayed 30 mg PO QAM 30 days #30 caps 10/26/23 Rx release oxycodone 5 mg tablet 5 mg PO QID PRN Pain, Severe 30 10/26/23 Rx days #25 tabs Past Med/Surg History Medical History Lumbar disc herniation with radiculopathy Lumbar spinal stenosis Obstructive sleep apnea on CPAP Diabetes mellitus, type 2 Hyperlipidemia Lumbar facet joint syndrome Parainfluenza infection with pneumonia > resolved per pt Asthma exacerbation with COPD (chronic obstructive pulmonary disease) uses res inh approx 2x per week Postoperative keloid scar sternal Chronic systolic (congestive) heart failure CHF exacerbation Hyperglycemia due to type 2 diabetes mellitus Atrial fibrillation no pacer > med controlled per pt Tobacco abuse Dyspnea on exertion so severe pt is wheelchair bound (per [facility]) Mitral valve insufficiency History of COVID-2020 Asthma-COPD overlap syndrome History of pulmonary embolism on warfarin > 2021 > no known cause Chronic diastolic congestive heart failure GERD (gastroesophageal reflux disease) Hx of coronary artery disease Chronic low back pain Vertigo CSF leak hx > resolved per pt Degeneration of cervical intervertebral disc External hemorrhoids Hemiplegic migraine Urinary incontinence Vitamin D deficiency Hypertension Vertebral artery stenosis Surgical History History of mitral valve replacement with mechanical valve S/P MVR (mitral valve repair) Aug 26 2022 > [place] History of transesophageal echocardiography (GEORGETTE) performed 06/21/22 @ [facility]---per report pt has severe mitral valve insufficiency History of hemorrhoidectomy (~2017) @ [facility] S/p tibial fracture open treatment of Fx with plate/screws, Left leg History of mandibular surgery S/P left knee arthroscopy History of bilateral tubal ligation Status post right foot surgery Facial fracture (2014) WITH RECONSTRUCTION History of esophagogastroduodenoscopy (EGD) History of colonoscopy History of heart artery stent X2 STENTS (2010) UNSURE OF KIND. NO STENT CARDS PER PT. History of cardiac cath X2 STENTS - (~2010, IN [place], [place]). NO STENTS - ([facility] @ ~2014) No stents ([facility] 05/11/2022) - Follows Ntia Dietz [facility] [place] Family History Mother Breast cancer, Onset Age: 64 Type 2 diabetes mellitus Father Diabetes Coronary heart disease Type 2 diabetes mellitus Myocardial infarction, Onset Age: 52 Family/Other Hypertension sibling Grandmother (Maternal) Cancer Grandfather (Maternal) Cancer Denies family history of Ovarian cancer Social History Smoking Status: Current every day smoker Tobacco Type: Cigarettes Age Started Using Tobacco: 13; Age Quit Using Tobacco: 56; packs per day: 0.5; Cigarettes Per Day: 3-7; Second Hand Exposure: No; Do You Dip or Chew Tobacco: No; Hx Alcohol Use: No Hx Substance Use: No Preferred Language: Mauritanian Communication Ability: Effective Visual Impairment: No Limitations Hearing Ability: Normal Associate Spa Director Required: No Beliefs That Will Affect Care: None marital status: Current Living Situation: Spouse Current Living Situation Comment: Home with current occupational status: disabled How many Children do You have: 5 Feels Safe at Home: Yes Childhood Exposure to Second-Hand Smoke: No Diet: low salt caffeine: Yes (1/2 cup of coffee a day) during the past year weight has: remained stable Dental Care, Regularly: No Physical Activity Frequency: 1-2 Times per Week Seatbelt Use: always Sunscreen Use: No Assistive Devices: Cane, Nebulizer and Wheelchair Physical Exam Physical Exam: General: A&Ox3. NAD. Cooperative. Skin w arm and dry HEENT: Atraumatic, normocephalic.Vision/hearing intact. Thorax: Midline keloid present without overriding erythema/warmth. Patient is very tender overlying the keloid. In addition to this has focal tenderness underlying the left breast and left chest wall which is strongly reproducible on light palpation with radiation into the shoulder. No crepitus. No warmth/erythema. Pulm: CTAB A&P. -wheezes, -rales, -rhonchi. Symmetrical chest rise. No increased work of breathing. No respiratory distress. Cardiac: RRR Radial pulses intact and symmetrical. Abdominal: Nontender, nondistended, soft. BS present. Extremities: Clamper strength, elbow flexion, shoulder flexion 5/5 bilaterally. Left shoulder range of motion to flexion/abduction/internal/external rotation is intact without worsening pain. Sensation intact in fingertips bilaterally. Sensation to soft touch in feet intact bilaterally, ankle dorsiflexion/plantarflexion intact Results & Data Results & Data Vital Signs (Past 12 Hours) Vital Signs Temp Pulse Pulse Resp BP BP Pulse Ox 10/26/23 12:33 74 18 164/81 H 97 10/26/23 12:09 75 20 98 10/26/23 12:09 10/26/23 11:11 82 10/26/23 10:55 37.1 C 82 21 164/81 H 98 O2 Del Method 10/26/23 12:33 10/26/23 12:09 Room Air 10/26/23 12:09 Room Air 10/26/23 11:11 10/26/23 10:55 Room Air PG Care Time/CCT Total # of Minutes Spent Total Time Spent with Patient: Total time spent is greater than 50% in coordination of care (as documented) at patient's floor/unit and/or counseling patient: Coding Level of Care Code 59743 INT INP/OBS CARE 3/75MIN Diagnoses Chest pain R07.9 Chronic systolic (congestive) heart failure I50.22 SMITA on CPAP G47.33; Z99.89 DMII (diabetes mellitus, type 2) E11.9 Gastroesophageal reflux disease, esophagitis presence not specified K21.9 Esophagitis presence: esophagitis presence not specified Chronic pain syndrome G89.4 (5) GERD (gastroesophageal reflux disease) Esophagitis presence: esophagitis presence not specified Qualified Code(s): K21.9 - Gastro-esophageal reflux disease without esophagitis
--- NOTE | 2023-10-26 14:44 | Electrocardiogram Report ---
Test Reason : Blood Pressure : / mmHG Vent. Rate : 079 BPM Atrial Rate : 079 BPM P-R Int : 152 ms QRS Dur : 080 ms QT Int : 392 ms P-R-T Axes : 000 002 104 degrees QTc Int : 449 ms Unusual P axis, possible ectopic atrial rhythm T wave abnormality, consider lateral ischemia Abnormal ECG When compared with ECG of 22-SEP-2023 17:10, No significant change Confirmed by Dwayne Guy ([id number]) on 10/26/2023 2:44:16 PM Referred By: Confirmed By:Dwayne Guy
[2023-10-26] MEDS ORDERED: GLUCOSE 40% GEL 15 GM TUBE PO PRN (15:07)
[2023-10-26] MEDS ORDERED: DEXTROSE 50% 50 ML SYRINGE IV PRN (15:07)
[2023-10-26] MEDS ORDERED: GLUCOSE 10 TAB/TUBE PO PRN (15:07)
[2023-10-26] MEDS ORDERED: CARBOHYDRATES FOR HYPOGLYCEMIA PO PRN (15:07)
[2023-10-26] MEDS ORDERED: GLUCAGON FOR INJ 1 MG VIAL SQ PRN (15:07)
[2023-10-26] MEDS ORDERED: LIDOCAINE 5% 1 PATCH TD STA (15:10)
[2023-10-26] MEDS ORDERED: WARFARIN SOD 5 MG TAB PO SCH (16:00)
[2023-10-26] MEDS ORDERED: DICLOFENAC SOD 1% GEL 100 GM TUBE EXT PRN (17:59)
[2023-10-26] MEDS ORDERED: ALBUTEROL HFA 8 GM INHALER INH PRN (17:59)
[2023-10-26] MEDS: INSULIN ASPART PER UNIT CHARGE SC SCH ×2 (19:04→21:50)
[2023-10-26] MEDS: WARFARIN SOD 10 MG TAB PO SCH ×2 (19:23→20:25)
[2023-10-26] MEDS: IPRATROPIUM BROMIDE HFA INHALER INH SCH (20:19)
[2023-10-26] MEDS ORDERED: ATORVASTATIN 40 MG TAB PO SCH (21:00)
[2023-10-26] MEDS ORDERED: PANTOprazole 40 MG TAB PO SCH (21:00)
[2023-10-26] MEDS: POTASSIUM CHLORIDE CRTAB 20 MEQ TABCR PO SCH (21:44)
[2023-10-26] MEDS: oxyCODONE HCL IR 5 MG TAB (IMMEDIATE RELEASE) PO PRN (21:45)
[2023-10-26] MEDS: PREGABALIN 150 MG CAP PO SCH (21:45)
[2023-10-26] MEDS: LANTUS PER UNIT CHARGE SQ SCH (21:50)
[2023-10-27] MEDS: oxyCODONE HCL IR 5 MG TAB (IMMEDIATE RELEASE) PO PRN ×3 (03:12→15:57)
[2023-10-27] MEDS: ACETAMINOPHEN 325 MG TAB PO PRN ×3 (03:12→15:56)
[2023-10-27 04:47] LABS: Hemoglobin 11.4 g/dl (12.0-16.0); Mean Corpuscular Hemoglobin 29.3 pg (25.0-34.0); Mean Corpuscular Hgb Conc 32.6 g/dL (32.0-36.0); Mean Platelet Volume 12.1 fL (9.4-12.4); Platelet Count 224 K/uL (130-400); RDW Coefficient of Variation 15.6 % (11.5-14.5); Red Blood Count 3.89 M/uL (4.20-5.40)
[2023-10-27 05:01] LABS: BUN Creatinine Ratio 27.2 (10-20); Calcium 8.9 mg/dl (8.6-10.3); Creatinine Clr Calc Pharmacy 96.6 ml/min; Est GFR (African American) 92.1 ml/min; Est GFR (Non-African American) 79.5 ml/min; Potassium 3.6 mmol/L (3.5-5.1)
[2023-10-27 05:10] LABS: Basophils # (auto) 0.03 K/uL (0.00-0.20); Basophils % (auto) 0.4 %; Eosinophils # (auto) 0.16 K/uL (0.00-0.50); Eosinophils % (auto) 2.2 %; Immature Granulocytes # (auto) 0.01 K/uL (0.01-0.20); Immature Granulocytes % (auto) 0.1 %; Lymphocytes # (auto) 3.68 K/uL (1.20-3.40); Lymphocytes % (auto) 50.4 %; Monocytes # (auto) 0.53 K/uL (0.11-0.59); Monocytes % (auto) 7.3 %; Neutrophils # (auto) 2.89 K/uL (1.40-6.50); Neutrophils % (auto) 39.6 %
[2023-10-27] MEDS: IPRATROPIUM BROMIDE HFA INHALER INH SCH ×2 (06:53→11:53)
[2023-10-27] MEDS: POTASSIUM CHLORIDE CRTAB 20 MEQ TABCR PO SCH (08:08)
[2023-10-27] MEDS: PREGABALIN 150 MG CAP PO SCH ×2 (08:16→13:52)
[2023-10-27] MEDS: LANTUS PER UNIT CHARGE SQ SCH (08:33)
[2023-10-27] MEDS ORDERED: ASPIRIN 81 MG ECTAB PO SCH (09:00)
[2023-10-27] MEDS ORDERED: FLUTICASONE/VILANTEROL 100/25MCG 14 PUFFS/INHALER INH SCH (09:00)
[2023-10-27] MEDS ORDERED: FUROSEMIDE 80 MG TAB PO SCH (09:00)
[2023-10-27] MEDS ORDERED: LOSARTAN POTASSIUM 25 MG TAB PO SCH (09:00)
[2023-10-27] MEDS ORDERED: DULoxetine HCL 30 MG CAP PO SCH (09:00)
[2023-10-27] MEDS ORDERED: METOPROLOL SUCC 25MG EXT REL TAB PO SCH (09:00)
[2023-10-27] MEDS: INSULIN ASPART PER UNIT CHARGE SC SCH ×3 (09:29→18:11)
--- NOTE | 2023-10-27 10:24 | XCELERA ---
[id number]
--- NOTE | 2023-10-27 12:32 | Hospitalist Progress Note ---
Date of Service October 27, 2023 Assessment & Plan (1) Chest pain: Plan: Deb is a 58-year-old female with a history of CHF, MVR, type II DM, TIA who presents with intermittent chest pain for several days which is worse when coughing. Chest pain Patient with 24-48 hours of left-sided chest pain under her breast with radiation to her left shoulder associated with sweats and shortness of breath 8/10 in quality and unremitting over the last 24 hours. This is not worsened with exertion and does not have a correlation with exercise. Pain is strongly reproducible on left breast and shoulder palpation, patient denies injury/trauma. Full range of motion of the left shoulder without pain hs-trop 8.4. repeat 8.5 EKG: Normal sinus rhythm without territorial ST segment changes, T wave inversions are present in lateral leads with no change compared to EKG 09/22/2023 Patient has a history of keloid and complicated regional pain syndrome following valve replacement, she feels that her pain is completely different in quality in a different location than prior pain. Pain is also reproducible as listed above in physical examination. Some improvement with heating pad. Patient reports that she does follow with pain clinic. Agrees to follow-up with them as this is not appear to be cardiac or pulmonary related Does not appear consistent with ACS. Low suspicion for cardiac etiology, discussed with cardiology and reasonable to get a echo. No additional cardiac testing indicated at this time. - INR 3.0 on admission. Patient is chronically anticoagulated with warfarin and follows with the Coumadin clinic. Patient has been within therapeutic range with very limited lows on past review and was actually high earlier this month. Low suspicion for VTE/PE as cause of pain Echocardiogram with no wall motion abnormalities or change compared to prior - Follow-up with the pain clinic in the next week or 2 as she is followed with them before and was most recently seen by them in early September (2) Chronic systolic (congestive) heart failure: Plan: CHF Last echo 07/2023: EF 60 to 65%. Mechanical valve with normal opening. No wall motion abnormalities. Echocardiogram unchanged Heart cath 04/2022 was with angiographically normal coronary arteries. Subsequently referred for mitral repair. Noted to have noncardiac causes of chest pain at that time Anticoagulated with warfarin due to mechanical valve replacement, therapeutic with goal 2.53.5 (3) SMITA on CPAP: Plan: SMITA Continue CPAP nightly and during the day with rest (4) DMII (diabetes mellitus, type 2): Plan: Type II DM, poor control Goal BSG [id number] Lantus 7 units twice daily Continue sliding scale Type II DM diet Home dulaglutide/metformin held -Outpatient follow-up (5) GERD (gastroesophageal reflux disease): Plan: GERD Protonix daily, no acute exacerbation and no complaints of current reflux (6) Chronic pain syndrome: Plan: Chronic low back pain/lumbar disc of radiculopathy Follows with pain management and was last seen 10/02/2023. Scheduled to see Ran marcano PA-C in Dr. Cheney's as outpatient next week No indication for acute change in management Last pain management visit 10/02/2023 noted to be stable on Lyrica, oxycodone, duloxetine, cyclobenzaprine. Pending orthospine follow-up as outpatient. - No limb weakness/sensory loss on admit. Ches tpain is not in a dermatomal/radicular distribution. EMG 09/26/2023: Consistent with diabetic neuropathy and pinched nerve Plan DVT prophylaxis: Anticoagulated Disposition: Medical telemetry for chest pain Diet: Heart healthy/DM2 CODE STATUS: Full code Patient is on Lyrica, Oxy IR, morphine, Lidoderm patch, diclofenac gel for pain. Advised patient to continue with these modalities and follow-up with pain clinic. Also advised patient's to reposition frequently and ambulate as tolerated or range of motion Will discharge patient home with anticipated follow-up with pain clinic in the next week or 2. Admission and Anticipated Discharge Date Admission Date: October 26, 2023 Subjective Attending: Dr. Oakes This is a 58-year-old female that presents with chest pain when coughing. She was admitted 10/26/2023 afternoon. EKG stable with no changes as compared to 09/22/2023. Patient with mitral valve replacement with chronic keloid and regional pain syndrome since that time. Echocardiogram with left ventricular systolic function normal. No regional wall motion abnormalities. Mild concentric left ventricular hypertrophy. Preserved left ventricular ejection fraction of 55 to 60%. Mechanical mitral valve is identified on echocardiogram. Prostatic mitral valve peak and/or mean gradients are within normal range. Echocardiogram compared to 08/17/2023 with no significant change. Pain suspected to be musculoskeletal/costochondritis pain. Hemodynamically stable with most recent vital signs reflecting a BP of 155/81. Patient is afebrile. Patient saturating 100% on room air. Review of Systems 2 Review of Systems: A total of 10 systems was reviewed and is negative other than as listed in the HPI Physical Exam 2 Physical Exam: GENERAL : No acute distress. Morbidly obese body habitus with BMI of 41.1 kg/m EYES: No icterus, gaze conjugate NOSE: No evidence of epistaxis MOUTH: No lesions or candidiasis NECK: Supple CHEST: Reproducible pain with palpation particularly on the left under the fifth and sixth ribs. Pain is also noted with deep inspiration and repositioning in the bed. No rash or open sore. No erythema. LUNGS: Good airflow. Patient does have some rhonchi. She states that this is typical for her. No conversational dyspnea. No respiratory distress. HEART: Regular, rate controlled ABDOMEN: Soft, NT, ND, BS Present EXTREMITIES: No LE edema, pedal pulses intact and equal NEURO: A&OX3 Results & Data Results & Data Vital Signs (Past 12 Hours) Vital Signs Pulse Pulse Resp BP BP Pulse Ox O2 Del Method 10/27/23 11:54 67 14 100 Room Air 10/27/23 10:00 61 15 155/81 H 95 Room Air 10/27/23 09:00 59 L 12 98 Room Air 10/27/23 08:05 12 149/64 H 93 Room Air 10/27/23 07:00 67 20 98 10/27/23 06:53 61 16 99 Room Air 10/27/23 05:52 62 20 161/77 H 100 CPAP 10/27/23 03:35 62 16 99 10/27/23 00:52 68 10/27/23 00:46 70 19 155/73 H 100 Room Air O2 Flow Rate FiO2 10/27/23 11:54 21 10/27/23 10:00 10/27/23 09:00 10/27/23 08:05 10/27/23 07:00 10/27/23 06:53 10/27/23 05:52 10/27/23 03:35 2 10/27/23 00:52 10/27/23 00:46 Laboratory Results Abnormal lab results 10/26/23 10/26/23 10/27/23 Range/Units 18:17 21:30 04:16 RBC 3.89 L (4.20-5.40) M/uL Hgb 11.4 L (12.0-16.0) g/dl Hct 35.0 L (37.0-47.0) % RDW Std Deviation 51.0 H (36.4-46.3) fL RDW Coeff of Majo 15.6 H (11.5-14.5) % Lymph # (Auto) 3.68 H (1.20-3.40) K/uL BUN/Creatinine Ratio 27.2 H (10-20) Glucose 107 H (70-99(Fasting)) mg/dl POC Glucose 194 H 145 H (70-99) mg/dl 10/27/23 Range/Units 08:26 RBC (4.20-5.40) M/uL Hgb (12.0-16.0) g/dl Hct (37.0-47.0) % RDW Std Deviation (36.4-46.3) fL RDW Coeff of Majo (11.5-14.5) % Lymph # (Auto) (1.20-3.40) K/uL BUN/Creatinine Ratio (10-20) Glucose (70-99(Fasting)) mg/dl POC Glucose 148 H (70-99) mg/dl 10/27/23 04:16 10/27/23 04:16 PG Care Time/CCT Total # of Minutes Spent Total Time Spent with Patient: Total time spent is greater than 50% in coordination of care (as documented) at patient's floor/unit and/or counseling patient: Coding Level of Care Code None Diagnoses Chest pain R07.9 Chronic systolic (congestive) heart failure I50.22 SMITA on CPAP G47.33; Z99.89 DMII (diabetes mellitus, type 2) E11.9 Gastroesophageal reflux disease, esophagitis presence not specified K21.9 Esophagitis presence: esophagitis presence not specified Chronic pain syndrome G89.4 Comment No charge for this note. Please refer to discharge summary from this date (5) GERD (gastroesophageal reflux disease) Esophagitis presence: esophagitis presence not specified Qualified Code(s): K 21.9 - Gastro-esophageal reflux disease without esophagitis
[2023-10-27] MEDS: WARFARIN SOD 10 MG TAB PO SCH (16:10)
[2023-10-27] MEDS ORDERED: Nursing to Pharmacy Communication SCH (16:15)
[2023-10-27] MEDS ORDERED: NICOTINE 21 MG/24 HR TDSY TD SCH (17:30)
--- NOTE | 2023-10-27 19:22 | Discharge Summary ---
Date of Service October 27, 2023 Admission HPI Per Admitting Provider 3-4 days ago has some nausea. 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 Endorses shortness of breath with it. Has vomited 3x as well, no blood. +having sweats last night and this morning without fever. Pain has not gone away at any point. Pain is 8/10 in intensity and has not improved since last night and is an achy to sharp pain. Much worse with cough, feels like a 'stabbing pain.'. No history of leg swelling. She is on warfarin for her mechanical valve. Goal is 2.5-3.5. INR today is 3.0. Pain is worse with coughing no other worsening factors. No worsening with exertion. Pain persists at rest. Diarrhea light brown yesterday NO pain with meals. No gallstone problems, has a history of cholecystitis without cholecystectomy. Tx with abx. Hx of PE prior to being on warfarin. She has had genetic testing at that time which was negative. Did have some type of damage around the clot at the time. This was in ebeginning of 2021, started wafarin a few months later after having her valve replaced. OPen heart surgery was Aug 26 2023. Did not take any medications this morning. EF 07/2023 with normal EF no wall motion abnormalities. Medical History: Reviewed Medications: Reviewed Surgical History: Reviewed Family history: Reviewed Allergies: Reviewed Social History: Reviewed Code Status: Full Admission Exam Per Admitting Provider Physical Exam: General: A&Ox3. NAD. Cooperative. Skin w arm and dry HEENT: Atraumatic, normocephalic.Vision/hearing intact. Thorax: Midline keloid present without overriding erythema/warmth. Patient is very tender overlying the keloid. In addition to this has focal tenderness underlying the left breast and left chest wall which is strongly reproducible on light palpation with radiation into the shoulder. No crepitus. No warmth/erythema. Pulm: CTAB A&P. -wheezes, -rales, -rhonchi. Symmetrical chest rise. No increased work of breathing. No respiratory distress. Cardiac: RRR Radial pulses intact and symmetrical. Abdominal: Nontender, nondistended, soft. BS present. Extremities: Turbinated Bone Grinder strength, elbow flexion, shoulder flexion 5/5 bilaterally. Left shoulder range of motion to flexion/abduction/internal/external rotation is intact without worsening pain. Sensation intact in fingertips bilaterally. Sensation to soft touch in feet intact bilaterally, ankle dorsiflexion/plantarflexion intact Principal Diagnosis Chest Pain Discharge Exam Physical Exam: GENERAL : No acute distress. Morbidly obese body habitus with BMI of 41.1 kg/m EYES: No icterus, gaze conjugate NOSE: No evidence of epistaxis MOUTH: No lesions or candidiasis NECK: Supple CHEST: Reproducible pain with palpation particularly on the left under the fifth and sixth ribs. Pain is also noted with deep inspiration and repositioning in the bed. No rash or open sore. No erythema. LUNGS: Good airflow. Patient does have some rhonchi. She states that this is typical for her. No conversational dyspnea. No respiratory distress. HEART: Regular, rate controlled ABDOMEN: Soft, NT, ND, BS Present EXTREMITIES: No LE edema, pedal pulses intact and equal NEURO: A&OX3 Discharge Data Allergies Allergy/AdvReac Type Severity Reaction Status Date / Time No Known Allergies Allergy Verified 10/26/23 16:22 Consultations 10/26/23 14:32 ED Decision to Admit Stat Procedures Performed ECHO Hospital Course (1) Chest pain: Deb is a 58-year-old female with a history of CHF, MVR, type II DM, TIA who presents with intermittent chest pain for several days which is worse when coughing. Chest pain Patient with 24-48 hours of left-sided chest pain under her breast with radiation to her left shoulder associated with sweats and shortness of breath 8/10 in quality and unremitting over the last 24 hours. This is not worsened with exertion and does not have a correlation with exercise. Pain is strongly reproducible on left breast and shoulder palpation, patient denies injury/trauma. Full range of motion of the left shoulder without pain hs-trop 8.4. repeat 8.5 EKG: Normal sinus rhythm without territorial ST segment changes, T wave inversions are present in lateral leads with no change compared to EKG 09/22/2023 Patient has a history of keloid and complicated regional pain syndrome following valve replacement, she feels that her pain is completely different in quality in a different location than prior pain. Pain is also reproducible as listed above in physical examination. Some improvement with heating pad. Patient reports that she does follow with pain clinic. Agrees to follow-up with them as this is not appear to be cardiac or pulmonary related Does not appear consistent with ACS. Low suspicion for cardiac etiology, discussed with cardiology and reasonable to get a echo. No additional cardiac testing indicated at this time. - INR 3.0 on admission. Patient is chronically anticoagulated with warfarin and follows with the Coumadin clinic. Patient has been within therapeutic range with very limited lows on past review and was actually high earlier this month. Low suspicion for VTE/PE as cause of pain Echocardiogram with no wall motion abnormalities or change compared to prior - Follow-up with the pain clinic in the next week or 2 as she is followed with them before and was most recently seen by them in early September -start Voltaren gel to left chest wall at site of pain (2) Chronic systolic (congestive) heart failure: CHF Last echo 07/2023: EF 60 to 65%. Mechanical valve with normal opening. No wall motion abnormalities. Echocardiogram unchanged Heart cath 04/2022 was with angiographically normal coronary arteries. Subsequently referred for mitral repair. Noted to have noncardiac causes of chest pain at that time Anticoagulated with warfarin due to mechanical valve replacement, therapeutic with goal 2.53.5 ECHO here iwth preserved EF, no WMAs (3) SMITA on CPAP: SMITA Continue CPAP nightly and during the day with rest (4) DMII (diabetes mellitus, type 2): Type II DM, poor control Goal BSG 320803 Lantus 7 units twice daily Continue sliding scale Type II DM diet Home dulaglutide/metformin held -Outpatient follow-up (5) GERD (gastroesophageal reflux disease): GERD Protonix daily, no acute exacerbation and no complaints of current reflux (6) Chronic pain syndrome: Chronic low back pain/lumbar disc of radiculopathy Follows with pain management and was last seen 10/02/2023. Scheduled to see Ran marcano PA-C in Dr. Cheney's as outpatient next week No indication for acute change in management Last pain management visit 10/02/2023 noted to be stable on Lyrica, oxycodone, duloxetine, cyclobenzaprine. Pending orthospine follow-up as outpatient. - No limb weakness/sensory loss on admit. Ches tpain is not in a dermatomal/radicular distribution. EMG 09/26/2023: Consistent with diabetic neuropathy and pinched nerve Plan DVT prophylaxis: Anticoagulated Disposition: Medical telemetry for chest pain Diet: Heart healthy/DM2 CODE STATUS: Full code Patient is on Lyrica, Oxy IR, morphine, Lidoderm patch, diclofenac gel for pain. Advised patient to continue with these modalities and follow-up with pain clinic. Also advised patient's to reposition frequently and ambulate as tolerated or range of motion Will discharge patient home with anticipated follow-up with pain clinic in the next week or 2. Total Time Total Time Spent Total Time Spent (In Minutes): 45 Discharge Plan Discharge Items Patient Disposition: Home - Self-Care Reason For Visit: Musculoskeletal Chest Pain Discharge Diagnosis: Musculoskeletal chest pain Activity: Resume your previous activity Lifting: Gradually increase as tolerated Bathing: No limitations Sexual Activity: When tolerated Exercise/Sports: Gradually increase as tolerated Weightbearing: Full weightbearing Non-emergency contact: Primary Care Provider Call non-emergency contact if: your symptoms worsen Follow-up/Referrals: Little Shepard PA-C [Physician Scroll Machine Operator] - 11/03/23 2:45 pm (Known to clinic. Follow up within one week if possible APPOINTMENT IS WITH Virgilio METZ PA-C) Sugar Weber MD [Primary Care Provider] - Diet: Carb Consistent or DM2 and Heart Healthy Addtl Attending Provider Instructions: Chest pain. Your EKG is unchanged. It shows no wall motion dysfunction of the heart your mechanical valve does appear to be functional. Chest pain is reproducible meaning that when you push on it it hurts, when he breathes deep it hurts, when you reposition it hurts. This most likely is due to the muscles and tendons of the thoracic cage including the ribs being strained. Patient continue with your medications as prescribed at home including Lidoderm patch at far as prescribed by the pain medicine clinic. Need to have you scheduled with the pain. If you do not hear from them by the middle of next week, please call them to schedule an appointment. You may use heat or cold packs at the areas where you have pain. Weight NSAIDs such as ibuprofen, Advil. Continue with as prescribed. Be sure to increase activity which is possible. Congratulations on cutting back on his smoking. You should continue to work on complete avoidance of all tobacco products. You have a nicotine patch in place. This should be removed before bedtime and you should not smoke with a nicotine patch in place. You should also continue to work on reduction of calories with minimizing calories each day. Do not eat after 7pm and avoid all sweets and alcohol. Pending Studies at Discharge: No Stand-Alone Forms: My [facility], Smoking Cessation Medications and DC Order Prescriptions: New nicotine [Nicoderm CQ] 21 mg/24 hr Patch 24 Hour 21 mg transdermal QAM Qty: 7 0RF warfarin 10 mg Tablet 10 mg PO DAILY@2100 Qty: 30 0RF Rx Instructions: Take as directed by the Coumadin Clinic warfarin 5 mg Tablet 5 mg PO SuTuThSa@2100 Qty: 30 0RF Rx Instructions: Take as directed by the Coumadin clinic Continued (DME) Hospital Bed Homecare [facility] See Rx Instructions .Route Qty: 1 0RF Rx Instructions: As directed-HOSPITAL BED, LENGTH OF NEED 99 MONTHS, DX CODE; Z98.890 albuterol sulfate 90 mcg/actuation HFA aerosol inhaler 2 puff INHALATION Q6 PRN (Reason: Shortness Of Breath Or Wheezing) Qty: 18 5RF Proctofoam HC 1-1 % foam 1 applic [place] BID PRN (Reason: hemorrhoids) Qty: 10 0RF Atrovent HFA 17 mcg/actuation HFA aerosol inhaler 2 puff INHALATION TID Qty: 12.9 5RF losartan 25 mg tablet 25 mg PO QAM 90 Days Qty: 90 5RF metoprolol succinate 25 mg tablet extended release 24 hr 25 mg PO QAM 90 Days Qty: 90 4RF atorvastatin 40 mg tablet 40 mg PO QPM 90 Days Qty: 90 2RF lidocaine [Lidoderm] 5 % adhesive patch,medicated 1 patch topical DAILY Qty: 15 1RF Rx Instructions: leave on most painful area for up to 12 hrs nitroglycerin 0.4 mg tablet, sublingual 0.4 mg sublingual Q5M PRN (Reason: Chest Pain) Qty: 30 6RF Rx Instructions: do not exceed 3 doses per episode (DME) Stair [place] See Rx Instructions .Route .MEDSUPPLY Qty: 1 0RF Rx Instructions: To be installed and used as directed to allow safe ambulation of stairs in patient home potassium chloride 10 mEq capsule, extended release 20 meq PO BID Patient Comments: PT STATES THAT SHE TAKES TWICE A DAY. 12/5 furosemide 40 mg tablet 80 mg PO QAM 90 Days Qty: 180 2RF Rx Instructions: MAY TAKE AN EXTRA 40MG DAILY, NEEDED, FOR WEIGHT GAIN. duloxetine 30 mg capsule,delayed release(DR/EC) 30 mg PO QAM 30 Days Qty: 30 3RF oxycodone 5 mg tablet 5 mg PO QID PRN (Reason: Pain, Severe) 30 Days Qty: 25 0RF cyclobenzaprine 5 mg tablet 5 mg PO BID PRN (Reason: muscle spasm) 30 Days Qty: 20 1RF (DME) Bedside Commode [facility] See Rx Instructions .Route Qty: 1 0RF Rx Instructions: As directed pregabalin 150 mg capsule 150 mg PO TID 30 Days Qty: 90 3RF Nurtec ODT 75 mg tablet,disintegrating 75 mg PO DIRECTED PRN (Reason: Migraine Headache) Qty: 8 5RF Rx Instructions: 75 mg PO take one tablet at migraine onset as directed; metformin 500 mg tablet 1,000 mg PO BID 90 Days Qty: 360 2RF (DME) blood-glucose meter [OneTouch Verio Flex meter] [facility] See Rx Instructions .Route Qty: 1 0RF Rx Instructions: Check blood sugar 1-2 times daily (DME) OneTouch Verio test strips Strip See Rx Instructions .Route Qty: 100 3RF Rx Instructions: Test blood sugar once daily and as needed (DME) lancets [OneTouch UltraSoft 2 Lancet] 30 gauge [facility] See Rx Instructions .Route Qty: 100 3RF Rx Instructions: Test blood sugar once daily and as needed aspirin [Ecotrin Low Strength] 81 mg tablet,delayed release (DR/EC) 81 mg PO QAM pantoprazole 40 mg tablet,delayed release (DR/EC) 40 mg PO PM fluticasone furoate-vilanterol [Breo Ellipta] 100-25 mcg/dose blister with device 1 inh INHALATION QAM polyethylene glycol 3350 [Miralax] 17 gram Powder In Packet 17 g PO BID Qty: 30 0RF docusate sodium 100 mg Capsule 100 mg PO BID Qty: 30 0RF acetaminophen [Tylenol Extra Strength] 500 mg Tablet 1,000 mg PO BID Qty: 60 0RF dulaglutide 4.5 mg/0.5 mL pen injector 4.5 mg subcut WK Rx Instructions: please inject 4.5mg once every MONDAY ipratropium-albuterol 0.5 mg-3 mg(2.5 mg base)/3 mL solution for nebulization 3 ml NEB Q6H nicotine 21 mg/24 hr patch 24 hour 21 mg transdermal QAM warfarin 5 mg tablet 10 mg PO [id number] Rx Instructions: 10/26/23 : TAKE 10MG EVERY MONDAY/MONDAY/MONDAY. warfarin 5 mg Tablet 15 mg PO [id number] Rx Instructions: 10/26/23 : TAKE 15MG EVERY MONDAY/MONDAY/MONDAY/MONDAY. diclofenac sodium [Arthritis Pain (diclofenac)] 1 % gel 4 g topical QID PRN (Reason: Pain) Qty: 100 0RF Discharge Orders: Discharge Order (Routine); Ordered 10/27/23 Ordered By: Marin Colindres Admission Data Admit Date/Time: 10/26/23 15:03 Attending Provider: Annemarei Oakes Admit Provider: Juanito Moise Primary Care Provider: Sugar Weber Other Providers: Juanito Moise Other Interventions: Discharge Summary Assessment (RN) Last Done: 10/27/23 17:47 Supervising Physician Co-Signing Physician Notes PA Supervision Note: I personally saw and examined the patient. I verified all duran points and agree with KVNG Colindres with the following exceptions and/or additions: S-Pt feelin gbetter, still having the left sided anterior rib pain with palpation and ndeep breaths Cardiac issues ruled out, VSS, feels ready for discharge O- Vitals reviewed Gen: [AAOx3, NAD] HEENT: [anicteric sclerae, EOMI] CV: [RRR no mgr nl S1S2, +TTP over left sixth rib anteriorly] Pulm: [CTAB no wcr] Abd: [+BS soft NT ND no masses or hernias] Ext: [no edema] Skin: [no rashes, warm/dry] Neuro: [full strength throughout] A/P-58 yo female here with MSK chest pain. Cardiac causes of CP ruled out Doing well, dc to home on Voltaren gel to affected area Coding Level of Care Code 27784 INP/OBS DISCH >30 MIN Diagnoses Chest pain R07.9 Chronic systolic (congestive) heart failure I50.22 SMITA on CPAP G47.33; Z99.89 DMII (diabetes mellitus, type 2) E11.9 Gastroesophageal reflux disease, esophagitis presence not specified K21.9 Esophagitis presence: esophagitis presence not specified Chronic pain syndrome G89.4
[2023-10-27] MEDS ORDERED: WARFARIN SOD 10 MG TAB PO SCH (21:00)
[2023-10-28] MEDS ORDERED: WARFARIN SOD 5 MG TAB PO SCH ×2 (16:00→21:00)
== END 2023-10-27 19:14 | disposition home or self-care (01) ==
LOC: ED 10:46 → EDINP 15:03 → INTOOBSV 15:03 → SUATTDRO 15:03 → 2N 17:59

== ENCOUNTER 2023-11-21 08:42 | Inpatient (IN) ==
--- NOTE | 2023-11-07 14:00 | PAT Medication Instructions ---
Medication Instructions Date of Service November 07, 2023 Home Medications Medication Instructions Recorded Bedside Commode #1 ea 08/04/22 Hospital Bed Homecare #1 ea 08/12/22 hydrocortisone 1 %-pramoxine 1 % 1 applic [place] BID PRN hemorrhoids 05/17/23 rectal foam (Proctofoam HC) #10 grams ipratropium bromide 17 2 puff inhalation TID #12.9 grams 05/17/23 mcg/actuation HFA aerosol inhaler (Atrovent HFA) losartan 25 mg tablet 25 mg PO QAM 90 days #90 tabs 05/17/23 metoprolol succinate 25 mg 25 mg PO QAM 90 days #90 tabs 05/17/23 tablet,extended release 24 hr atorvastatin 40 mg tablet 40 mg PO QPM 90 days #90 tabs 06/19/23 pregabalin 150 mg capsule 150 mg PO TID 30 days #90 caps 07/07/23 blood-glucose meter (OneTouch #1 ea 07/13/23 Verio Flex Meter) lidocaine 5 % topical patch 1 patch topical DAILY #15 ea 07/16/23 (Lidoderm) blood sugar diagnostic (OneTouch #100 ea 07/27/23 Verio test strips) lancets 30 gauge (OneTouch #100 ea 07/27/23 UltraSoft 2 Lancet) nitroglycerin 0.4 mg sublingual 0.4 mg sublingual Q5M PRN Chest 08/09/23 tablet Pain #30 tabs Stair [place] #1 ea 08/10/23 metformin 500 mg tablet 1,000 mg (2 x 500 mg) PO BID 90 09/12/23 days #360 tabs docusate sodium 100 mg capsule 100 mg PO BID #30 caps 09/25/23 polyethylene glycol 3350 17 gram 17 g PO BID #30 ea 09/25/23 oral powder packet (Miralax) cyclobenzaprine 5 mg tablet 5 mg PO BID PRN muscle spasm 30 10/26/23 days #20 tabs duloxetine 30 mg capsule,delayed 30 mg PO QAM 30 days #30 caps 10/26/23 release diclofenac sodium 1 % topical gel 4 g topical QID PRN Pain #100 grams 10/27/23 (Arthritis Pain (diclofenac)) nicotine 21 mg/24 hr daily 21 mg transdermal QAM #7 ea 10/27/23 transdermal patch (Nicoderm CQ) acetaminophen 500 mg tablet 1,000 mg (2 x 500 mg) PO BID #60 10/31/23 (Tylenol Extra Strength) tabs oxycodone 10 mg tablet,crush 10 mg PO BID 3 days #6 tabs 10/31/23 resistant,extended release 12 hr (OxyContin) oxycodone 5 mg tablet 5 mg PO QID PRN Pain, Severe 30 10/31/23 days #30 tabs pneumoc 20-derick conj-dip cr(PF) 0.5 0.5 ml IM ONCE #0.5 mL 10/31/23 mL IM syringe (Prevnar 20 (PF)) hydrocortisone 1 %-pramoxine 1 % rectal foam (Proctofoam HC) 1 applic [place] BID PRN hemorrhoids ipratropium bromide 17 mcg/actuation HFA aerosol inhaler (Atrovent HFA) 2 puff inhalation TID losartan 25 mg tablet 25 mg PO QAM metoprolol succinate 25 mg tablet,extended release 24 hr 25 mg PO QAM atorvastatin 40 mg tablet 40 mg PO QPM pregabalin 150 mg capsule 150 mg PO TID lidocaine 5 % topical patch (Lidoderm) 1 patch topical DAILY aspirin 81 mg tablet,delayed release (Ecotrin Low Strength) 81 mg PO QAM fluticasone furoate 100 mcg-vilanterol 25 mcg/dose inhalation powder (Breo Ellipta) 1 inh inhalation QAM pantoprazole 40 mg tablet,delayed release 40 mg PO QPM nitroglycerin 0.4 mg sublingual tablet 0.4 mg sublingual Q5M PRN Chest Pain metformin 500 mg tablet 1,000 mg (2 x 500 mg) PO BID docusate sodium 100 mg capsule 100 mg PO BID polyethylene glycol 3350 17 gram oral powder packet (Miralax) 17 g PO BID potassium chloride 10 mEq capsule,extended release 20 meq PO TID cyclobenzaprine 5 mg tablet 5 mg PO BID PRN muscle spasm dulaglutide 4.5 mg/0.5 mL subcutaneous pen injector 4.5 mg subcut Q7D duloxetine 30 mg capsule,delayed release 30 mg PO QAM ipratropium 0.5 mg-albuterol 3 mg (2.5 mg base)/3 mL nebulization soln 3 ml NEB Q6H diclofenac sodium 1 % topical gel (Arthritis Pain (diclofenac)) 4 g topical QID PRN Pain nicotine 21 mg/24 hr daily transdermal patch (Nicoderm CQ) 21 mg transdermal QAM acetaminophen 500 mg tablet (Tylenol Extra Strength) 1,000 mg (2 x 500 mg) PO BID oxycodone 10 mg tablet,crush resistant,extended release 12 hr (OxyContin) 10 mg PO BID oxycodone 5 mg tablet 5 mg PO QID PRN Pain, Severe albuterol sulfate 90 mcg/actuation aerosol inhaler 2 puff inhalation Q6H PRN Shortness Of Breath Or Wheezing furosemide 40 mg tablet 80 mg PO QPM rimegepant 75 mg disintegrating tablet (Nurtec ODT) 75 mg PO UD PRN Migraine Headache warfarin 5 mg tablet See Rx Instructions PO UD Continue as directed lidocaine 5 % topical patch (Lidoderm) 1 patch topical DAILY (just do not put on or near surgical site) nitroglycerin 0.4 mg sublingual tablet 0.4 mg sublingual Q5M PRN Chest Pain (if needed) ASK your prescriber and surgeon warfarin 5 mg tablet See Rx Instructions PO UD STOP taking 7 days before surgery dulaglutide 4.5 mg/0.5 mL subcutaneous pen injector 4.5 mg subcut Q7D STOP taking 24 hours before surgery hydrocortisone 1 %-pramoxine 1 % rectal foam (Proctofoam HC) 1 applic [place] BID PRN hemorrhoids diclofenac sodium 1 % topical gel (Arthritis Pain (diclofenac)) 4 g topical QID PRN Pain DO NOT take the morning of surgery losartan 25 mg tablet 25 mg PO QAM metformin 500 mg tablet 1,000 mg (2 x 500 mg) PO BID docusate sodium 100 mg capsule 100 mg PO BID polyethylene glycol 3350 17 gram oral powder packet (Miralax) 17 g PO BID potassium chloride 10 mEq capsule,extended release 20 meq PO TID Take morning of surgery With a small sip of water, OTHERWISE NOTHING TO EAT OR DRINK AFTER MIDNIGHT: ipratropium bromide 17 mcg/actuation HFA aerosol inhaler (Atrovent HFA) 2 puff inhalation TID metoprolol succinate 25 mg tablet,extended release 24 hr 25 mg PO QAM pregabalin 150 mg capsule 150 mg PO TID aspirin 81 mg tablet,delayed release (Ecotrin Low Strength) 81 mg PO QAM (unless surgeon directed otherwise) fluticasone furoate 100 mcg-vilanterol 25 mcg/dose inhalation powder (Breo Ellipta) 1 inh inhalation QAM cyclobenzaprine 5 mg tablet 5 mg PO BID PRN muscle spasm (if needed) duloxetine 30 mg capsule,delayed release 30 mg PO QAM ipratropium 0.5 mg-albuterol 3 mg (2.5 mg base)/3 mL nebulization soln 3 ml NEB Q6H (if needed) acetaminophen 500 mg tablet (Tylenol Extra Strength) 1,000 mg (2 x 500 mg) PO BID oxycodone 10 mg tablet,crush resistant,extended release 12 hr (OxyContin) 10 mg PO BID oxycodone 5 mg tablet 5 mg PO QID PRN Pain, Severe (if needed) albuterol sulfate 90 mcg/actuation aerosol inhaler 2 puff inhalation Q6H PRN Shortness Of Breath Or Wheezing (use if needed; please bring with you to hospital day of surgery if possible) rimegepant 75 mg disintegrating tablet (Nurtec ODT) 75 mg PO UD PRN Migraine Headache (if needed) nicotine 21 mg/24 hr daily transdermal patch (Nicoderm CQ) 21 mg transdermal QAM (do not smoke) Take evening before surgery ipratropium bromide 17 mcg/actuation HFA aerosol inhaler (Atrovent HFA) 2 puff inhalation TID atorvastatin 40 mg tablet 40 mg PO QPM pregabalin 150 mg capsule 150 mg PO TID pantoprazole 40 mg tablet,delayed release 40 mg PO QPM metformin 500 mg tablet 1,000 mg (2 x 500 mg) PO BID docusate sodium 100 mg capsule 100 mg PO BID polyethylene glycol 3350 17 gram oral powder packet (Miralax) 17 g PO BID potassium chloride 10 mEq capsule,extended release 20 meq PO TID cyclobenzaprine 5 mg tablet 5 mg PO BID PRN muscle spasm (if needed) ipratropium 0.5 mg-albuterol 3 mg (2.5 mg base)/3 mL nebulization soln 3 ml NEB Q6H (if needed) acetaminophen 500 mg tablet (Tylenol Extra Strength) 1,000 mg (2 x 500 mg) PO BID oxycodone 10 mg tablet,crush resistant,extended release 12 hr (OxyContin) 10 mg PO BID oxycodone 5 mg tablet 5 mg PO QID PRN Pain, Severe (if needed) albuterol sulfate 90 mcg/actuation aerosol inhaler 2 puff inhalation Q6H PRN Shortness Of Breath Or Wheezing (if needed) furosemide 40 mg tablet 80 mg PO QPM rimegepant 75 mg disintegrating tablet (Nurtec ODT) 75 mg PO UD PRN Migraine Headache (if needed) Other Notes If you have any questions please call us at [phone] or [phone] or [phone] or [phone]
--- NOTE | 2023-11-08 11:24 | Anesthesiology Consultation ---
Date of Service November 08, 2023 Assessment & Plan (1) Encounter for pre-operative examination: - Check BSG AM DOS - Check coags AM DOS (warfarin instructions per surgeon/prescriber- patient states she is to be receiving instructions from [facility]) - Infectious disease screening: Per assessment on 11/08/23: No known infectious disease contacts or current infectious disease symptoms. No noted recent Covid positive test result. - Dulaglutide instructions: Patient takes on Fridays. Patient informed at PAT visit to stop 7 days prior to surgery- voiced understanding. DOS 11/21/23. Advised last dose to be 11/10/23. - PCP visit (10/31/23): "..discharge summary from 10/2023 hospitalization reviewed in full.. As for her low back pain --> she has upcoming visit with Dr. Cheney [place] [facility] [place].. As for keloid scar pain --> she has visit later this week with [facility] to discuss possible intercostal nerve block. I recommended the following for her oral pain med regimen: Continue Tylenol 1000mg BID scheduled. Start OxyContin 10mg BID for long acting narcotic. Continue oxycodone IR 5mg prn. By adding the ER oxycodone, I am hopeful her IR usage will reduce.. I did place order for her to have a pelvic US to follow up on incidental finding noted near the left adnexa from L spine MRI in 09/2023.. A1c checked in 07/2023 above goal at 8.5.. she is on max dose Trulcity at 4.5mg/weekly. I increased her metformin use from 500mg BID to 1000mg BID at our last visit.. due for repeat a1c in 8 days. If it remains above goal, will titrate medication regimen further with initiation fo [id number].. here today for a hospital follow up visit. She was hospitalized at [facility] from 10/26/22 to 10/27/22 for chest pain. ACS was ruled out. Echo was updated and unchanged from 07/2023. Etiology thought to be from her known keloid scar. She is following with [facility] for this issue.. Additionally, she has chronic low back pain thought to be due to lumbar spinal stenosis, sacroiliac joint dysfunction of right side and lumbar facet joint syndrome. She had an updated L spine MRI on 09/25/23 which showed an inferiorly extruded and possibly sequestered disc fragment eccentric to the right at L5-S1. This impinges on the transiting right S1 nerve root. [facility] placed referral for her to be seen by Dr. Erick Cheney at [facility] [place] for consideration of surgical intervention. This visit is arranged for 11/02/22. Of note, on her L spine MRI done on 09/25/23 an incidental finding of a cystic structure was noted around her left adnexa in the pelvis -- a nonemergent pelvic US for further eval was recommended. This has not yet been ordered." - Cardiology note (11/06/23): "Low risk.. Patient is cleared for scheduled surgery" - Pending: * Patient scheduled for upcoming visit with cardiology scheduled prior to surgery- Awaiting upcoming cardiology office visit note ([facility], appt 11/14). * Awaiting surgeon-ordered PCP preop evaluation ([facility] [place], Dr. Weber). Chart Review Chart Review: Patient seen in Pre Admission Testing Teaching & Discussion Pre-Anesthesia Teaching/Discussion Notes: Instructed NPO after midnight before surgery,except medications with 15 cc of water. Medication instructions provided according to the PAT guidelines. History Surgery Operation Date: 11/21/23 07:45 Proposed Procedures p L3-S1 Decompression and Fusion Spinal Cord Monitoring - Bobo Cheney, DO Height/Weight Height: 5 ft 6 in Weight: 113.9 kg Allergies Allergy/AdvReac Type Severity Reaction Status Date / Time No Known Allergies Allergy Verified 11/07/23 12:31 Medications Home Medications Medication Instructions Recorded Confirmed Last Taken Bedside Commode #1 ea 08/04/22 11/07/23 Unknown Hospital Bed Homecare #1 ea 08/12/22 11/07/23 Unknown hydrocortisone 1 %-pramoxine 1 % 1 applic NC BID PRN hemorrhoids 05/17/23 11/07/23 Unknown rectal foam (Proctofoam HC) #10 grams ipratropium bromide 17 2 puff inhalation TID #12.9 grams 05/17/23 11/07/23 Unknown mcg/actuation HFA aerosol inhaler (Atrovent HFA) losartan 25 mg tablet 25 mg PO QAM 90 days #90 tabs 05/17/23 11/07/23 Unknown metoprolol succinate 25 mg 25 mg PO QAM 90 days #90 tabs 05/17/23 11/07/23 Unknown tablet,extended release 24 hr atorvastatin 40 mg tablet 40 mg PO QPM 90 days #90 tabs 06/19/23 11/07/23 07/31/23 20:00 pregabalin 150 mg capsule 150 mg PO TID 30 days #90 caps 07/07/23 11/07/23 Unknown blood-glucose meter (OneTouch #1 ea 07/13/23 11/07/23 Unknown Verio Flex Meter) lidocaine 5 % topical patch 1 patch topical DAILY #15 ea 07/16/23 11/07/23 Unknown (Lidoderm) aspirin 81 mg tablet,delayed 81 mg PO QAM 07/24/23 11/07/23 07/31/23 08:00 release (Ecotrin Low Strength) fluticasone furoate 100 1 inh inhalation QAM 07/24/23 11/07/23 Unknown mcg-vilanterol 25 mcg/dose inhalation powder (Breo Ellipta) pantoprazole 40 mg tablet,delayed 40 mg PO QPM 07/24/23 11/07/23 Unknown release blood sugar diagnostic (OneTouch #100 ea 07/27/23 11/07/23 Unknown Verio test strips) lancets 30 gauge (OneTouch #100 ea 07/27/23 11/07/23 Unknown UltraSoft 2 Lancet) nitroglycerin 0.4 mg sublingual 0.4 mg sublingual Q5M PRN Chest 08/09/23 11/07/23 Unknown tablet Pain #30 tabs Stair [place] #1 ea 08/10/23 11/07/23 Unknown metformin 500 mg tablet 1,000 mg (2 x 500 mg) PO BID 90 09/12/23 11/07/23 Unknown days #360 tabs docusate sodium 100 mg capsule 100 mg PO BID #30 caps 09/25/23 11/07/23 Unknown polyethylene glycol 3350 17 gram 17 g PO BID #30 ea 09/25/23 11/07/23 Unknown oral powder packet (Miralax) potassium chloride 10 mEq 20 meq PO TID 09/26/23 11/07/23 Unknown capsule,extended release cyclobenzaprine 5 mg tablet 5 mg PO BID PRN muscle spasm 30 10/26/23 11/07/23 Unknown days #20 tabs dulaglutide 4.5 mg/0.5 mL 4.5 mg subcut Q7D 10/26/23 11/07/23 Unknown subcutaneous pen injector duloxetine 30 mg capsule,delayed 30 mg PO QAM 30 days #30 caps 10/26/23 11/07/23 Unknown release ipratropium 0.5 mg-albuterol 3 mg 3 ml NEB Q6H 10/26/23 11/07/23 Unknown (2.5 mg base)/3 mL nebulization soln diclofenac sodium 1 % topical gel 4 g topical QID PRN Pain #100 grams 10/27/23 11/07/23 Unknown (Arthritis Pain (diclofenac)) nicotine 21 mg/24 hr daily 21 mg transdermal QAM #7 ea 10/27/23 11/07/23 Unknown transdermal patch (Nicoderm CQ) acetaminophen 500 mg tablet 1,000 mg (2 x 500 mg) PO BID #60 10/31/23 11/07/23 Unknown (Tylenol Extra Strength) tabs oxycodone 10 mg tablet,crush 10 mg PO BID 3 days #6 tabs 10/31/23 11/07/23 Unknown resistant,extended release 12 hr (OxyContin) oxycodone 5 mg tablet 5 mg PO QID PRN Pain, Severe 30 10/31/23 11/07/23 Unknown days #30 tabs pneumoc 20-derick conj-dip cr(PF) 0.5 0.5 ml IM ONCE #0.5 mL 10/31/23 11/07/23 Unknown mL IM syringe (Prevnar 20 (PF)) albuterol sulfate 90 mcg/actuation 2 puff inhalation Q6H PRN 11/07/23 11/07/23 Unknown aerosol inhaler Shortness Of Breath Or Wheezing furosemide 40 mg tablet 80 mg PO QPM 11/07/23 11/07/23 Unknown rimegepant 75 mg disintegrating 75 mg PO UD PRN Migraine Headache 11/07/23 11/07/23 Unknown tablet (Nurtec ODT) warfarin 5 mg tablet See Rx Instructions PO UD 11/07/23 11/07/23 Unknown Past Medical History Medical History Acute lumbar radiculopathy Asthma-COPD overlap syndrome Atrial fibrillation Chronic diastolic congestive heart failure Chronic systolic (congestive) heart failure CSF leak Remote hx > "resolved" per patient Degeneration of cervical intervertebral disc Diabetes mellitus, type 2 External hemorrhoids GERD (gastroesophageal reflux disease) Hemiplegic migraine History of COVID-19 2020- no hospitalized, "moderate symptoms" > resolved History of pulmonary embolism 2021, taking Warfarin Hx of coronary artery disease Stents x2 (2010) Hyperlipidemia Hypertension Lumbar disc herniation with radiculopathy Lumbar facet joint syndrome Lumbar spinal stenosis Mitral valve disease s/p MVR 08/2022, [facility] Obstructive sleep apnea on CPAP Postoperative keloid scar sternal Vertebral artery stenosis Exercise / Class Metabolic Activity III < 4 Walking/Shop/Light housework (uses cane, walker, wheelchair depending on level activity) Past Family History Family History Mother Breast cancer, Onset Age: 64 Type 2 diabetes mellitus Father Diabetes Coronary heart disease Type 2 diabetes mellitus Myocardial infarction, Onset Age: 52 Family/Other Hypertension sibling Grandmother (Maternal) Cancer Grandfather (Maternal) Cancer Denies family history of Ovarian cancer Past Surgical History Surgical History History of bilateral tubal ligation History of cardiac cath ~2010- stents x2 ~2014 ([place])- no stents 04/2022- no stents History of colonoscopy History of esophagogastroduodenoscopy (EGD) History of facial surgery 2014, reconstruction sx. of jaw/face>no problems opening mouth since surgery History of heart artery stent Stents x2 (2010) History of hemorrhoidectomy ~2017, [facility] History of mitral valve replacement with mechanical valve 08/2022, [facility] History of open reduction and internal fixation (ORIF) procedure Left tibia, hardware intact History of transesophageal echocardiography (GEORGETTE) 05/2022 Hx of arthroscopy of right knee S/P left knee arthroscopy Status post left foot surgery Status post right foot surgery Past Anesthesia History No Hx of Anesthesia Complications and No Family Hx of Anesthesia Complications History of PONV No Hx of PONV and No Hx of Motion Sickness Social History Smoking Status: Former smoker tobacco type: cigarettes Smoking cigarettes per day: 8-10 cigs/day Do You Dip or Chew Tobacco: No Hx Alcohol Use: No substance use type: marijuana (Remote hx) Review of Systems + KLINE. Patient denies chest pain, shortness of breath, fever, chills, cough, wheezing, palpitations. Physical Exam Vital Signs VITALS BP 101/67 P 79 TEMP 98.1 SP02 95%RA RESP 18 PHYSICAL Full cervical extension range of motion. Full TMJ range of motion. TMD 4 finger breaths Mallampati Score 1 Dentition: missing molars/side/upper front Lungs: clear throughout to auscultation Cardiac: regular rate and rhythm, no murmurs noted Spine: normal Carotid arteries: negative bruit Extremities: no LE edema Lab Results Anesthesia Preop Results Results Anesthesia Widget: WBC 7.30 K/ul (4.8-10.8) 10/27/23 Hgb 11.4 g/dl (12.0-16.0) L 10/27/23 Hct 35.0 % (37.0-47.0) L 10/27/23 Plt 224 K/uL (130-400) 10/27/23 Na 139 mmol/L (136-145) 10/27/23 K 3.6 mmol/L (3.5-5.1) 10/27/23 Cl 104 mmol/L (98-107) 10/27/23 CO2 29 mmol/L (21-32) 10/27/23 BUN 22 mg/dl (6-23) 10/27/23 Creat 0.81 mg/dl (0.6-1.2) 10/27/23 Glucose Level 107 mg/dl (70-99(Fasting)) H 10/27/23 PT 31.6 Seconds (9.0-12.0) H 11/08/23 PTT 44 Seconds (21-31) H 11/08/23 INR 3.1 (0.9-1.1) H 11/08/23 Urine Color Yellow 09/23/23 Urine Appearance Clear (Clear) 09/23/23 Urine pH 6.5 (4.5-7.5) 09/23/23 Urine Specific [place] 1.008 (1.000-1.030) 09/23/23 Urine Protein Negative (Negative) 09/23/23 Urine Glucose (UA) Negative (Negative) 09/23/23 Urine Ketones Negative (Negative) 09/23/23 Urine Blood Negative (Negative) 09/23/23 Urine Nitrite Negative (Negative) 09/23/23 Urine Bilirubin Negative (Negative) 09/23/23 Urine Urobilinogen Negative (Negative) 09/23/23 Urine Leukocyte Esterase Negative (Negative) 09/23/23 COVID-19 PCR NEGATIVE (Negative) 10/26/23 Blood Type B Positive 11/08/23 Antibody Screen NEGATIVE 11/08/23 Testing Laboratory Results *Surgeon's office made aware of elevated A1C* Electrocardiogram Date: 10/26/23 Unusual P axis, possible ectopic atrial rhythm. T wave abnormality, consider lateral ischemia. 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 *Subsequent echo 10/27/2023. Dr. Guy reviewed these EKG tracings and was also the provider who wrote note 11/06/23 giving cardiac risk assessment/clearance. Additionally preop cardiology appt scheduled 11/14/23* Chest X-Ray Date: 10/26/23 FINDINGS: An AP, portable, upright chest radiograph is compared to study dated 09/22/2023 and correlated with chest CT dated 04/18/2023. The patient is status post midline sternotomy and cardiac valve surgery. The heart is enlarged. The pulmonary vasculature is noncongested. Chronic interstitial thickening is similar to previous. There is mild bibasilar scarring/atelectasis. The lungs and pleural spaces are otherwise clear. No pneumothorax is seen. The skeletal structures are osteopenic. The bony thorax is grossly intact. IMPRESSION: Cardiomegaly with no active disease in the chest. Echocardiogram Date: 10/27/23 EF 55-60%. No regional wall motion abnormality. Mild concentric LVH. Mechanical mitral valve. Prosthetic mitral valve peak and or mean gradients are normal. No significant change compared to 08/17/2023 per report. Stress Test Date: 12/06/18 Type: DSE Normal dobutamine echocardiogram without evidence of inducible ischemia. 92% MPHR. Borderline cLVH. Grade I DD. Mild MR. EF 50-55%. Cardiac Catheterization Date: 05/11/22 Summary: Angiographically normal coronary arteries. Normal left and right- sided filling pressures. Normal pulmonary artery pressures. Normal cardiac output. Recommendations: Referral for mitral valve repair per Dr. Guy. Additional evaluation for noncardiac causes of chest pain. *Subsequent MVR 08/2022*
[~2023-11-21 08:42] MED LIST changes: +ACETAMINOPHEN 500 MG TAB PO SCH; -ASPI81TA28 PO; -ATOR-26 PO; -CLOP1TAB15 PO; +CeleBREX 200 MG CAP PO SCH; +DEXAMETHASONE SOD INJ 4 MG/ML VIAL ONE; -DICL1GEL12 TOP; +GABAPENTIN 600 MG DOSE PO SCH; -IMDSR/60 PO; -IPRA-64 INH; +LIDOCAINE 2% 2 ML VIAL/AMP(20MG/ML) INFIL ONE; -LISI-729 PO; +LR 15ML/HR IV SCH; +LR 60ML/HR IV SCH; -METF-384 PO; +MIDAZOLAM HCL 1 MG/ML 2ML VIAL ONE; -MOME200A INH; -NTRGSL/4 UT; +ONDANSETRON INJ 2 MG/ML 2 ML VIAL ONE; -PANT40TA PO; -PARO40TA3 PO; -POLY335019 PO; -PRED20TA PO; -PROM25TA9 PO; -PROP80CA PO; +PROPOFOL IV EMULSION 10 MG/ML 20 ML VIAL IV ONE; -RANI150T2 PO; +ROCURONIUM BROMIDE 10 MG/ML 5 ML VIAL IV ONE; -TRAM-10 PO; -VNTHFA/IN INH; +ceFAZolin 2000MG 2,000 MG/15 ML SYR IV SCH; +fentaNYL citrate PF 100 MCG/2 ML VIAL ONE
--- NOTE | 2023-11-21 09:38 | History & Physical Bridge Note ---
Date of Service November 21, 2023 History & Physical Bridge Note I have examined the patient, reviewed the History & Physical and in the interval since the performance of the History & Physical I have noted the following changes of clinical significance: no changes noted
--- NOTE | 2023-11-21 09:39 | History & Physical Report ---
Date of Service November 21, 2023 Assessment & Plan (1) Neurogenic claudication due to lumbar spinal stenosis: Plan: L3-S1 decompression and fusion History of Present Illness Chief Complaint: Back and bilateral leg pain Primary Care Provider: Sugar Weber MD This is a 58-year-old male female that presents with persistent back and leg pain after failing since a course of nonoperative care she is here for surgical invention. Allergies Allergy/AdvReac Type Severity Reaction Status Date / Time No Known Allergies Allergy Verified 11/14/23 09:40 Home Medications Medication Instructions Recorded Confirmed Type Bedside Commode #1 ea 08/04/22 11/20/23 Rx Hospital Bed Homecare #1 ea 08/12/22 11/20/23 Rx hydrocortisone 1 %-pramoxine 1 % 1 applic NC BID PRN hemorrhoids 05/17/23 11/20/23 Rx rectal foam (Proctofoam HC) #10 grams ipratropium bromide 17 2 puff inhalation TID #12.9 grams 05/17/23 11/21/23 Rx mcg/actuation HFA aerosol inhaler (Atrovent HFA) losartan 25 mg tablet 25 mg PO QAM 90 days #90 tabs 05/17/23 11/21/23 Rx metoprolol succinate 25 mg 25 mg PO QAM 90 days #90 tabs 05/17/23 11/21/23 Rx tablet,extended release 24 hr atorvastatin 40 mg tablet 40 mg PO QPM 90 days #90 tabs 06/19/23 11/21/23 Rx pregabalin 150 mg capsule 150 mg PO TID 30 days #90 caps 07/07/23 11/21/23 Rx blood-glucose meter (OneTouch #1 ea 07/13/23 11/20/23 Rx Verio Flex Meter) lidocaine 5 % topical patch 1 patch topical DAILY #15 ea 07/16/23 11/20/23 Rx (Lidoderm) aspirin 81 mg tablet,delayed 81 mg PO QAM 07/24/23 11/21/23 History release (Ecotrin Low Strength) fluticasone furoate 100 1 inh inhalation QAM 07/24/23 11/20/23 History mcg-vilanterol 25 mcg/dose inhalation powder (Breo Ellipta) pantoprazole 40 mg tablet,delayed 40 mg PO QPM 07/24/23 11/21/23 History release blood sugar diagnostic (OneTouch #100 ea 07/27/23 11/20/23 Rx Verio test strips) lancets 30 gauge (OneTouch #100 ea 07/27/23 11/20/23 Rx UltraSoft 2 Lancet) nitroglycerin 0.4 mg sublingual 0.4 mg sublingual Q5M PRN Chest 08/09/23 11/20/23 Rx tablet Pain #30 tabs Stair [place] #1 ea 08/10/23 11/20/23 Rx metformin 500 mg tablet 1,000 mg (2 x 500 mg) PO BID 90 09/12/23 11/21/23 Rx days #360 tabs docusate sodium 100 mg capsule 100 mg PO BID #30 caps 09/25/23 11/20/23 Rx polyethylene glycol 3350 17 gram 17 g PO BID #30 ea 09/25/23 11/20/23 Rx oral powder packet (Miralax) potassium chloride 10 mEq 20 meq PO TID 09/26/23 11/21/23 History capsule,extended release cyclobenzaprine 5 mg tablet 5 mg PO BID PRN muscle spasm 30 10/26/23 11/20/23 Rx days #20 tabs dulaglutide 4.5 mg/0.5 mL 4.5 mg subcut Q7D 10/26/23 11/21/23 History subcutaneous pen injector duloxetine 30 mg capsule,delayed 30 mg PO QAM 30 days #30 caps 10/26/23 11/21/23 Rx release ipratropium 0.5 mg-albuterol 3 mg 3 ml NEB Q6H 10/26/23 11/20/23 History (2.5 mg base)/3 mL nebulization soln diclofenac sodium 1 % topical gel 4 g topical QID PRN Pain #100 grams 10/27/23 11/20/23 Rx (Arthritis Pain (diclofenac)) nicotine 21 mg/24 hr daily 21 mg transdermal QAM #7 ea 10/27/23 11/20/23 Rx transdermal patch (Nicoderm CQ) acetaminophen 500 mg tablet 1,000 mg (2 x 500 mg) PO BID #60 10/31/23 11/20/23 Rx (Tylenol Extra Strength) tabs oxycodone 10 mg tablet,crush 10 mg PO BID 3 days #6 tabs 10/31/23 11/20/23 Rx resistant,extended release 12 hr (OxyContin) oxycodone 5 mg tablet 5 mg PO QID PRN Pain, Severe 30 10/31/23 11/20/23 Rx days #30 tabs pneumoc 20-derick conj-dip cr(PF) 0.5 0.5 ml IM ONCE #0.5 mL 10/31/23 11/20/23 Rx mL IM syringe (Prevnar 20 (PF)) albuterol sulfate 90 mcg/actuation 2 puff inhalation Q6H PRN 11/07/23 11/20/23 History aerosol inhaler Shortness Of Breath Or Wheezing furosemide 40 mg tablet 80 mg PO QPM 11/07/23 11/21/23 History rimegepant 75 mg disintegrating 75 mg PO UD PRN Migraine Headache 11/07/23 11/20/23 History tablet (Nurtec ODT) warfarin 5 mg tablet See Rx Instructions PO UD 11/07/23 11/21/23 History enoxaparin 120 mg/0.8 mL 120 mg (0.8 mL) subcut Q12H #10 11/14/23 11/20/23 Rx subcutaneous syringe syringes Past Med/Surg History Medical History Acute lumbar radiculopathy Asthma-COPD overlap syndrome Atrial fibrillation Chronic diastolic congestive heart failure Chronic systolic (congestive) heart failure CSF leak Remote hx > "resolved" per patient Degeneration of cervical intervertebral disc Diabetes mellitus, type 2 External hemorrhoids GERD (gastroesophageal reflux disease) Hemiplegic migraine History of COVID-19 2020- no hospitalized, "moderate symptoms" > resolved History of pulmonary embolism 2021, taking Warfarin Hx of coronary artery disease Stents x2 (2010) Hyperlipidemia Hypertension Lumbar disc herniation with radiculopathy Lumbar facet joint syndrome Lumbar spinal stenosis Mitral valve disease s/p MVR 08/2022, [facility] Obstructive sleep apnea on CPAP Postoperative keloid scar sternal Vertebral artery stenosis Surgical History History of bilateral tubal ligation History of cardiac cath ~2010- stents x2 ~2014 ([place])- no stents 04/2022- no stents History of colonoscopy History of esophagogastroduodenoscopy (EGD) History of facial surgery 2014, reconstruction sx. of jaw/face>no problems opening mouth since surgery History of heart artery stent Stents x2 (2010) History of hemorrhoidectomy ~2018, [facility] History of mitral valve replacement with mechanical valve 08/2022, [facility] History of open reduction and internal fixation (ORIF) procedure Left tibia, hardware intact History of transesophageal echocardiography (GEORGETTE) 05/2022 Hx of arthroscopy of right knee S/P left knee arthroscopy Status post left foot surgery Status post right foot surgery Family History Mother Breast cancer, Onset Age: 64 Type 2 diabetes mellitus Father Diabetes Coronary heart disease Type 2 diabetes mellitus Myocardial infarction, Onset Age: 52 Family/Other Hypertension sibling Grandmother (Maternal) Cancer Grandfather (Maternal) Cancer Denies family history of Ovarian cancer Social History (Updated 10/31/23 @ 09:01 by Evelyn Paredes LPN) Smoking Status: Former smoker Tobacco Type: Cigarettes Age Started Using Tobacco: 13; Age Quit Using Tobacco: 58; packs per day: 0.5; Cigarettes Per Day: 8-10 cigs/day; Second Hand Exposure: No; Do You Dip or Chew Tobacco: No; Tobacco Cessation Education Requested by Patient: No Hx Alcohol Use: No Preferred Language: Senegalese Communication Ability: Effective Visual Impairment: No Limitations Hearing Ability: Normal 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 Beliefs That Will Affect Care: None marital status: Current Living Situation: Spouse Current Living Situation Comment: Home with current occupational status: disabled How many Children do You have: 5 Other Information That Helps Us Care for You: No Feels Safe at Home: Yes Safety Concerns: Feels Safe At This Time Childhood Exposure to Second-Hand Smoke: No Diet: low salt caffeine: Yes (1/2 cup of coffee a day) during the past year weight has: remained stable Dental Care, Regularly: No Physical Activity Frequency: 1-2 Times per Week Seatbelt Use: always Sunscreen Use: No Assistive Devices: CPAP, Glasses and Wheelchair Physical Exam Physical Exam: Patient is alert and oriented Heart regular in rhythm Lungs clear
[2023-11-21 09:52] LABS: INR 0.9 (0.9-1.1); Partial Thromboplastin Ratio 0.9; Partial Thromboplastin Time 25 Seconds (21-31); Prothrombin Time 10.4 Seconds (9.0-12.0)
[2023-11-21] MEDS ORDERED: ceFAZolin 330 MG/ML 1 GM VIAL ONE (09:53)
[2023-11-21] MEDS ORDERED: BUPIVACAINE/EPINEPHRINE 0.5% MPF 1:200,000 30 ML VIAL ONE (09:54)
[2023-11-21] MEDS ORDERED: ePHEDrine sulfate 50 MG/ML AMP IV PRN (09:55)
[2023-11-21] MEDS ORDERED: fentaNYL citrate PF 100 MCG/2 ML VIAL IV PRN (09:55)
[2023-11-21] MEDS ORDERED: ONDANSETRON INJ 2 MG/ML 2 ML VIAL IV PRN ×2 (09:55→14:26)
[2023-11-21] MEDS ORDERED: ATROPINE SULFATE 0.1 MG/ML 10ML SYR IV PRN (09:55)
[2023-11-21] MEDS ORDERED: fentaNYL citrate PF 100 MCG/2 ML VIAL ONE ×2 (10:46→12:11)
[2023-11-21] MEDS ORDERED: SUGAMMADEX SODIUM 200 MG/2 ML VIAL IV ONE (11:14)
[2023-11-21] MEDS ORDERED: MoRPHine SULFATE 2 MG/ML CARP ONE (11:32)
[2023-11-21] MEDS ORDERED: PROPOFOL IV EMULSION 10 MG/ML 20 ML VIAL IV ONE (11:48)
[2023-11-21] MEDS ORDERED: FLOSEAL HEMOSTATIC MATRIX 10ML TOP ONE (12:22)
--- NOTE | 2023-11-21 12:34 | Operative Report ---
Post Operative Report Pre & Post Diagnosis Operation Date: 11/21/23 10:15 Pre-Op Diagnosis: Lumbar spinal stenosis with neurogenic claudication Lumbar spondylolisthesis Morbid obesity Post-Op Diagnosis: Same I identified the patient and participated in the time-out.: Yes Procedure Operation Date: 11/21/23 10:15 Actual Procedures #1 lumbar decompression bilateral medial facetectomies and foraminotomies L2-L3, L3-L4, L4-5 and L5-S1. #2 posterior spinal fusion L3-S1. #3 placement posterior segmental instrumentation L3-S1. #4 interbody fusion L3-L4, L4-5 and L5-S1. #5 placement Spira 13 x 26 mm L3-L4, 15 x 26 mm at L4-5 and 13 x 26 mm L5-S1. #6 placement locally harvested morselized autograft and posterior gutters. #7 placement for collagen sponge combined with Koros in the posterior lateral gutters and Morpheus bone graft in the interbody space. Surgeon Bobo Cheney, DO Insole Presser Ria Alvarenga Estimated Blood Loss 350 Findings See Below The patient is 5 foot 6 weight 115 kg with a BMI in excess of 40. The patient's body habitus did create significant technical difficulty with positioning exposure and final skin closure adding at least 50% increased operative time. Specimens None Indications This is a 58-year-old female who presents above-mentioned diagnosis after failing course of nonoperative care she is here for surgical invention. Description of Procedure Patient was met with identified informed consent obtained. Patient was then taken to the operative suite underwent intubation placed in a prone position the Louie table atop the Mathew frame. All bony promises well-padded eyes inspected to ensure no external pressure placed upon the. This point lumbar spine is prepped and draped in a sterile fashion. Sharp dissection with assistance of Bovie cautery performed down to and exposing the lamina transverse processes of L3 L4-5 and sacral ala bilaterally. Bedoya cephalad fashion complete laminectomy of L5 L4 L3 and partial laminectomy of L2 was performed including bilateral medial facetectomies and foraminotomies addressing severe spinal stenosis. Pedicle screws were then placed in L3-L4-L5 and S1 levels bilaterally with assistance of fluoroscopy in the process ayaan placed. By way the transforaminal approach on the right complete discectomy of L5-S1 was performed endplates guided to subcortically bone and a 13 x 26 mm Spira cage with Morpheus bone graft tapped in position. Then proceeded to L4-[address] the transforaminal approach on the right complete discectomy performed endplates guided to subcortical bleeding bone and a 15 x 26 mm Spira cage filled with Morpheus bone graft tapped in position. Lastly approached L3-L4 and by way the transforaminal approach and right complete discectomy performed endplates guided to subcortical bleeding bone and a 13 x 26 mm Spira cage filled with Morpheus tapped into position. The rods were then compressed locked in final position bilaterally. The transverse processes of L4 3 L4-L5 and the sacral ala burred to subcortically bone. Infuse collagen sponge combined with Koros and locally harvested morselized graft placed in the posterior gutters. 15 round JOAQUIN inserted. The incision was then closed with 1 Vicryl the fascia 2-0 Vicryl subcutaneously and 4 Monocryl for final skin closure. Steri-Strip sterile dressing placed. Patient awakened taken to PACU stable condition. Please note spinal cord monitoring was utilized at the procedure no changes noted. Lastly Ria Alvarenga was present at the entire surgery about the patient positioning complex portion of the surgery and final skin closure. I attest to the content of the Intraoperative Record and any orders documented therein. Any exceptions are noted below.
[2023-11-21] MEDS ORDERED: HYDROmorphone INJ 1 MG/ML SYRINGE ONE (12:47)
--- NOTE | 2023-11-21 12:49 | Fluoroscopy Report ---
FL lumbar spine 2-3V CLINICAL HISTORY: L3-S1 DECOMP/FUSION COMPARISON STUDY: CT lumbar spine 09/22/2023 FLUOROSCOPY TIME: 31.1 seconds FLUOROSCOPY IMAGES: 3 EXPOSURE DOSE: 31.28 mGy FINDINGS: 4 level posterior interbody ayaan and screw fusion hardware with discectomy is noted extendin g from L3-S1. The hardware appears intact. There is a linear ill-defined radiodense structure noted p osterior to the L3-L4 intervertebral disc space. Seen best on the lateral view. Note that the images were submitted following completion of the surgery. IMPRESSION: Fluoroscopic assistance as above. ACT 112: Negative or not required by law. Electronically signed by: Errol Cruz M.D. 11/21/2023 12:47 PM
[2023-11-21] MEDS ORDERED: ALBUT/IPRATROP 3MG/0.5MG NEB 3 ML VIAL NEB STA (12:56)
[2023-11-21] MEDS ORDERED: KETOROLAC TROMETHAMINE 15 MG/ML VIAL IV ONE (12:57)
[2023-11-21] MEDS ORDERED: ACETAMINOPHEN 1,000 MG/100 ML VIAL IV STA (12:57)
[2023-11-21] MEDS: HYDROmorphone INJ 2 MG/ML SYR/VIAL IV PRN ×4 (12:57→13:30)
[2023-11-21] MEDS ORDERED: KETOROLAC 30 MG/ML VIAL ONE (13:00)
[2023-11-21] MEDS ORDERED: ACETAMINOPHEN 1000 MG/100 ML IV IV ONE (13:00)
--- NOTE | 2023-11-21 13:45 | Anesthesiology Progress Note ---
Date of Service November 21, 2023 Anesthesia Post Procedure Vital Signs Vital Signs: Temp Pulse Pulse Resp BP BP Pulse Ox 11/21/23 13:35 66 12 106/51 L 100 11/21/23 13:25 66 22 102/52 L 97 11/21/23 13:15 66 22 133/79 100 11/21/23 13:05 66 13 152/81 H 100 11/21/23 12:55 71 17 148/78 H 100 11/21/23 12:46 36.0 C L 74 16 162/105 H 98 11/21/23 09:38 36.8 C 74 20 130/71 97 O2 Del Method O2 Flow Rate 11/21/23 13:35 Nasal Cannula 3 11/21/23 13:25 Nasal Cannula 3 11/21/23 13:15 Nebulizer 6 11/21/23 13:05 Nasal Cannula 3 11/21/23 12:55 Nasal Cannula 3 11/21/23 12:46 Nasal Cannula 3 11/21/23 09:38 Room Air Pain Intensity Back: Pain Intensity: 10 Transfer of Care Handoff Completed per policy Notes Mental Status: alert / awake / arousable Patient Amnestic to Procedure: Yes Nausea / Vomiting: adequately controlled Pain: adequately controlled Airway Patency, RR, SpO2: stable & adequate BP & HR: stable & adequate Hydration State: stable & adequate Anesthetic Complications: no major complications apparent and Pt Satisfied with anesthetic care
[2023-11-21] MEDS ORDERED: METOCLOPRAMIDE HCL INJ 5 MG/ML 2 ML VIAL IV PRN (14:26)
[2023-11-21] MEDS ORDERED: DO NOT ADMINISTER FLU VACCINE PRN (14:26)
[2023-11-21] MEDS ORDERED: MAGNESIUM HYDROXIDE SUSP 30 ML UDC PO PRN (14:26)
[2023-11-21] MEDS ORDERED: FAMOTIDINE 20 MG TAB PO PRN (14:26)
[2023-11-21] MEDS ORDERED: CYCLOBENZAPRINE HCL 10 MG TAB PO PRN (14:26)
[2023-11-21] MEDS ORDERED: ACETAMINOPHEN 1,000 MG/100 ML VIAL IV PRN (14:26)
[2023-11-21] MEDS ORDERED: SOD PHOSPHATE/SOD BIPHOSPHATE ENEMA 132 ML BTL PR PRN (14:26)
[2023-11-21] MEDS ORDERED: hydrOXYzine HCl 25 MG TAB PO PRN (14:26)
[2023-11-21] MEDS ORDERED: diphenhydrAMINE Capsule 25 MG CAP PO PRN (14:26)
[2023-11-21] MEDS ORDERED: SODIUM CHLORIDE 0.9% 1,000 ML IV SCH (14:26)
[2023-11-21] MEDS ORDERED: PHARMACY GLYCEMIC MGMT CONSULT PRN (14:26)
[2023-11-21] MEDS ORDERED: LORazepam 0.5 MG TAB PO PRN (14:26)
[2023-11-21] MEDS ORDERED: LORazepam 0.5 MG in SYRINGE 0.25 ML IV PRN (14:26)
[2023-11-21] MEDS ORDERED: ACETAMINOPHEN 500 MG TAB PO PRN (14:26)
[2023-11-21] MEDS ORDERED: ALUMINUM/MAGNESIUM SUSP 30 ML UDC PO PRN (14:26)
[2023-11-21] MEDS ORDERED: IPRATROPIUM BROMIDE HFA INHALER INH PRN (14:26)
[2023-11-21] MEDS ORDERED: DO NOT ADMINISTER PNEUMOCOCCAL VACCINE PRN (14:26)
[2023-11-21] MEDS ORDERED: PROMETHAZINE HCL 12.5 MG in SODIUM CHLORIDE 0.9% 50 ML IV PRN (14:26)
[2023-11-21] MEDS ORDERED: ALBUTEROL HFA 8 GM INHALER INH PRN (14:26)
[2023-11-21] MEDS ORDERED: ONDANSETRON 4 MG OD TAB PO PRN (14:26)
[2023-11-21] MEDS ORDERED: bisacodyL 10 MG SUPP PR PRN (14:26)
[2023-11-21] MEDS ORDERED: NITROGLYCERIN SL 0.4 MG/TAB TAB SL PRN (14:26)
[2023-11-21] MEDS ORDERED: NALOXONE HCL 0.4 MG/1 ML VIAL/CARP IV PRN (14:26)
--- NOTE | 2023-11-21 14:52 | Pharmacy Report ---
Pharmacy Glycemic Short Note 2 - Date of Service November 21, 2023 - Glycemic Short BSG Results (Last 24 hours): 11/21/23 11/21/23 09:08 13:54 POC Glucose 145 H 155 H OUTPATIENT ANTIDIABETIC REGIMEN: * metformin 1 gm bid, dulaglutide 4.5 mg SQ weekly ASSESSMENT: * 58 year old, POD 0 surgery - pharmacy consulted for glycemic management. Steroids pulled in OR, therefore anticipate steroid induced hyperglycemia. Will plan to give Lantus 20 units x 1 and start stress 3 dosing for novolog with overnight checks. * Dexamethasone ordered ongoing tomorrow AM PLAN FOR INPATIENT GLYCEMIC CONTROL: * Hold outpatient oral diabetes medications * Basal insulin * Lantus 20 units x 1 * Bolus insulin * NovoLog per scale ACHS or Q6hrs while NPO * Goal Range: Low 110 mg/dL - High 140 mg/dL * Correction Factor: 15 mg/dL/unit * Nutritional / Prandial insulin per carb ratio of 1 unit per 5 grams CHO consumed
[2023-11-21] MEDS ORDERED: GLUCAGON FOR INJ 1 MG VIAL IM PRN (15:15)
[2023-11-21] MEDS ORDERED: GLUCOSE 10 TAB/TUBE PO PRN (15:15)
[2023-11-21] MEDS ORDERED: CARBOHYDRATES FOR HYPOGLYCEMIA PO PRN (15:15)
[2023-11-21] MEDS ORDERED: DEXTROSE 50% 50 ML SYRINGE IV PRN (15:15)
[2023-11-21] MEDS ORDERED: GLUCOSE 40% GEL 15 GM TUBE PO PRN (15:15)
[2023-11-21] MEDS: PREGABALIN 150 MG CAP PO SCH ×2 (15:55→21:38)
[2023-11-21] MEDS: POTASSIUM CHLORIDE CRTAB 20 MEQ TABCR PO SCH ×2 (15:55→21:38)
[2023-11-21] MEDS: oxyCODONE/ACETAMINOPHEN 10-325 TAB PO PRN (16:14)
[2023-11-21] MEDS: ALBUT/IPRATROP 3MG/0.5MG NEB 3 ML VIAL NEB SCH ×2 (16:35→19:26)
[2023-11-21] MEDS ORDERED: LANTUS PER UNIT CHARGE SC SCH (17:30)
[2023-11-21] MEDS: INSULIN ASPART PER UNIT CHARGE SC SCH ×2 (17:56→21:37)
--- NOTE | 2023-11-21 18:37 | Hospitalist Consultation ---
Date of Consultation November 21, 2023 Assessment & Plan (1) S/P spinal surgery: L3-S1 lumbar decompression with Dr. Cheney on 11/21/2023 Postop lumbar spine x-ray revealed hardware intact Perioperative antibiotics, DVT PPx, fluids, and pain management per the primary team Agree with a.m. CBC, BMP; we will follow PT/INR WNL on 11/21; okay to hold warfarin for now Resume anticoagulation and aspirin at discretion of Dr. Cheney Per review of anticoagulation notes, cardiology recommended patient should not be off anticoagulant for more than 3 days after procedure PT/OT consulted (2) Hypertension: Hold losartan the morning of 11/22, then consider restarting pending a.m. BP Continue metoprolol as before (3) Chronic pain syndrome: Continue Lyrica (4) Chronic systolic (congestive) heart failure: Echo on 10/27/23 revealed LVEF at 55-60% Hold furosemide the evening of 11/21 given low BP; discontinue NSS Can resume furosemide on 11/22 pending BP (5) Diabetes mellitus, type 2: Last A1c at 8.5% on 08/10/2023 Agree with holding metformin, dulaglutide (Trulicity) Agree with Lantus 20 units x 1 SSI; with target BSG range 110-140mg/dL, CF 15, carb ratio 5 T2DM diet BSG ACHS to monitor for hypoglycemia Adjust regimen as needed (6) History of tobacco abuse: Nicotine patch (7) GERD (gastroesophageal reflux disease): Continue pantoprazole (8) History of pulmonary embolism: In 2021; on warfarin Patient was transitioned by anticoagulation clinic to Lovenox 120 mg SQ q12h and was taking it from 11/18 - 11/20 (in the morning) (9) Obstructive sleep apnea on CPAP: CPAP HS (10) Hyperlipidemia: Continue atorvastatin (11) Depression: Continue duloxetine Plan Agree with medical decision making Disposition: MedSurg T2DM diet as tolerated VTE PPx: SCDs/teds for now (will defer restarting anticoagulation to primary team) Thank you for allowing us to participate in the care of this patient, we will continue to follow. Supervising Physician Co-Signing Physician Notes I personally saw and examined the patient. I independently reviewed the labs, EKG, imaging, problem list, medication list, past medical history and family history. I verified all duran points and agree with Octaviano Smith PA-C with the following exceptions and/or additions: 58 year old female POD#0 Lumbar decompression, posterior spinal fusion. Estimated blood loss 350ml. No acute concerns or questions from the patient. Reports she hasn't yet started OxyContin but ok starting this while in hospital. Pain medication better controlled from earlier. O/E A&Ox3, HS RRR, no murmurs, Chest reduced air entry throughout, no respiratory distress, Abdo SNT A/P VTE/Pain/bowel management per primary orthopedics team HTN - losartan on hold pending serial BP measurements CHF - appear euvolemic, stop further IV fluids, will hold furosemide just for tonight and can be resumed tomorrow. Losartan on hold pending serial BP measurements. Otherwise as above History of PE - restart on anticoagulation when ok from orthopedic stand point. History of Present Illness Reason for Consultation: Medical management Requesting Physician: Bobo Cheney DO Attending Physician: Bobo Cheney DO History of Present Illness Deb is a 58-year-old female with PMH of T2DM, SMITA on CPAP, HLD, lumbar spinal stenosis, anxiety, depression, PTSD, OA, GERD, TIA, and chronic pain syndrome. Patient presented for spine surgery with Dr. Bobo Cheney on 11/21/2023. Procedures performed: "#1 lumbar decompression bilateral medial facetectomies and foraminotomies L2-L3, L3-L4, L4-5 and L5-S1. #2 posterior spinal fusion L3- S1. #3 placement posterior segmental instrumentation L3-S1. #4 interbody fusion L3-L4, L4-5 and L5-S1. #5 placement Spira 13 x 26 mm L3-L4, 15 x 26 mm at L4-5 and 13 x 26 mm L5-S1. #6 placement locally harvested morselized autograft and posterior gutters. #7 placement for collagen sponge combined with Koros in the posterior lateral gutters and Morpheus bone graft in the interbody space.". Per review of operative note, EBL was listed as 350 cc, and there was an increased operative time approximately 50%. Per review of patient's vitals postop, she has been stable on 2L NC (SpO2 100%). At time of consult (3.5 hours after recent pain medicine given), patient endorses 10/10 lower back pain. No radiation down the legs, however she notes that it does radiate to her bottom and upper back. She describes it as constant, dull achy pain; worse with movement. At home, she had been managing her pain with oxycodone 4 tablets daily, Tylenol 2 tablets daily, pregabalin, and cyclobenzaprine. She reports that she did not take any medications this morning. She is not taking insulin for her diabetes. She uses a CPAP at night. No other supplemental oxygen use at home. She reports that she has been eating and drinking well since the procedure. Thompson in place. ROS: Patient endorses lower back pain, decreased sensation in the RLE, and headache. Patient denies fever, chills, sweating, dizziness, lightheadedness, chest pain, SOB, saddle anesthesia, nausea, vomiting, urinary symptoms, burning with urination, or numbness and tingling in the LEs B/L. Allergies Allergy/AdvReac Type Severity Reaction Status Date / Time No Known Allergies Allergy Verified 11/14/23 09:40 Home Medications Medication Instructions Recorded Confirmed Type Bedside Commode #1 ea 08/04/22 11/20/23 Rx Hospital Bed Homecare #1 ea 08/12/22 11/20/23 Rx hydrocortisone 1 %-pramoxine 1 % 1 applic OR BID PRN hemorrhoids 05/17/23 11/20/23 Rx rectal foam (Proctofoam HC) #10 grams ipratropium bromide 17 2 puff inhalation TID #12.9 grams 05/17/23 11/21/23 Rx mcg/actuation HFA aerosol inhaler (Atrovent HFA) losartan 25 mg tablet 25 mg PO QAM 90 days #90 tabs 05/17/23 11/21/23 Rx metoprolol succinate 25 mg 25 mg PO QAM 90 days #90 tabs 05/17/23 11/21/23 Rx tablet,extended release 24 hr atorvastatin 40 mg tablet 40 mg PO QPM 90 days #90 tabs 06/19/23 11/21/23 Rx pregabalin 150 mg capsule 150 mg PO TID 30 days #90 caps 07/07/23 11/21/23 Rx blood-glucose meter (OneTouch #1 ea 07/13/23 11/20/23 Rx Verio Flex Meter) lidocaine 5 % topical patch 1 patch topical DAILY #15 ea 07/16/23 11/20/23 Rx (Lidoderm) aspirin 81 mg tablet,delayed 81 mg PO QAM 07/24/23 11/21/23 History release (Ecotrin Low Strength) fluticasone furoate 100 1 inh inhalation QAM 07/24/23 11/20/23 History mcg-vilanterol 25 mcg/dose inhalation powder (Breo Ellipta) pantoprazole 40 mg tablet,delayed 40 mg PO QPM 07/24/23 11/21/23 History release blood sugar diagnostic (OneTouch #100 ea 07/27/23 11/20/23 Rx Verio test strips) lancets 30 gauge (OneTouch #100 ea 07/27/23 11/20/23 Rx UltraSoft 2 Lancet) nitroglycerin 0.4 mg sublingual 0.4 mg sublingual Q5M PRN Chest 08/09/23 11/20/23 Rx tablet Pain #30 tabs Stair [place] #1 ea 08/10/23 11/20/23 Rx metformin 500 mg tablet 1,000 mg (2 x 500 mg) PO BID 90 09/12/23 11/21/23 Rx days #360 tabs docusate sodium 100 mg capsule 100 mg PO BID #30 caps 09/25/23 11/20/23 Rx polyethylene glycol 3350 17 gram 17 g PO BID #30 ea 09/25/23 11/20/23 Rx oral powder packet (Miralax) potassium chloride 10 mEq 20 meq PO TID 09/26/23 11/21/23 History capsule,extended release cyclobenzaprine 5 mg tablet 5 mg PO BID PRN muscle spasm 30 10/26/23 11/20/23 Rx days #20 tabs dulaglutide 4.5 mg/0.5 mL 4.5 mg subcut Q7D 10/26/23 11/21/23 History subcutaneous pen injector duloxetine 30 mg capsule,delayed 30 mg PO QAM 30 days #30 caps 10/26/23 11/21/23 Rx release ipratropium 0.5 mg-albuterol 3 mg 3 ml NEB Q6H 10/26/23 11/20/23 History (2.5 mg base)/3 mL nebulization soln diclofenac sodium 1 % topical gel 4 g topical QID PRN Pain #100 grams 10/27/23 11/20/23 Rx (Arthritis Pain (diclofenac)) nicotine 21 mg/24 hr daily 21 mg transdermal QAM #7 ea 10/27/23 11/20/23 Rx transdermal patch (Nicoderm CQ) acetaminophen 500 mg tablet 1,000 mg (2 x 500 mg) PO BID #60 10/31/23 11/20/23 Rx (Tylenol Extra Strength) tabs oxycodone 10 mg tablet,crush 10 mg PO BID 3 days #6 tabs 10/31/23 11/20/23 Rx resistant,extended release 12 hr (OxyContin) pneumoc 20-derick conj-dip cr(PF) 0.5 0.5 ml IM ONCE #0.5 mL 10/31/23 11/20/23 Rx mL IM syringe (Prevnar 20 (PF)) albuterol sulfate 90 mcg/actuation 2 puff inhalation Q6H PRN 11/07/23 11/20/23 History aerosol inhaler Shortness Of Breath Or Wheezing furosemide 40 mg tablet 80 mg PO QPM 11/07/23 11/21/23 History rimegepant 75 mg disintegrating 75 mg PO UD PRN Migraine Headache 11/07/23 11/20/23 History tablet (Nurtec ODT) warfarin 5 mg tablet See Rx Instructions PO UD 11/07/23 11/21/23 History enoxaparin 120 mg/0.8 mL 120 mg (0.8 mL) subcut Q12H #10 11/14/23 11/20/23 Rx subcutaneous syringe syringes oxycodone 5 mg tablet 5 mg PO QID PRN Pain, Severe 30 11/22/23 Rx days #30 tabs oxycodone 5 mg tablet 5 mg PO Q6H PRN pain #30 tabs 11/23/23 Rx Patient History Medical History (Updated 11/23/23 @ 07:21 by Booker Hall MD) Chronic systolic (congestive) heart failure Hypertension Mitral valve disease s/p MVR 08/2022, [facility] Lumbar disc herniation with radiculopathy Lumbar spinal stenosis Acute lumbar radiculopathy Lumbar facet joint syndrome Postoperative keloid scar sternal Atrial fibrillation History of COVID-19 2020- no hospitalized, "moderate symptoms" > resolved Asthma-COPD overlap syndrome History of pulmonary embolism 2021, taking Warfarin Chronic diastolic congestive heart failure GERD (gastroesophageal reflux disease) Hx of coronary artery disease Stents x2 (2010) CSF leak Remote hx > "resolved" per patient Degeneration of cervical intervertebral disc External hemorrhoids Hemiplegic migraine Obstructive sleep apnea on CPAP Diabetes mellitus, type 2 Hyperlipidemia Vertebral artery stenosis Surgical History (Updated 11/21/23 @ 18:43 by Octaviano Smith PA-C) Status post left foot surgery Hx of arthroscopy of right knee History of facial surgery 2014, reconstruction sx. of jaw/face>no problems opening mouth since surgery History of open reduction and internal fixation (ORIF) procedure Left tibia, hardware intact History of mitral valve replacement with mechanical valve 08/2022, [facility] History of transesophageal echocardiography (GEORGETTE) 05/2022 History of hemorrhoidectomy ~2017, [facility] S/P left knee arthroscopy History of bilateral tubal ligation Status post right foot surgery History of esophagogastroduodenoscopy (EGD) History of colonoscopy History of heart artery stent Stents x2 (2010) History of cardiac cath ~2010- stents x2 ~2014 ([place])- no stents 04/2022- no stents Family History Mother Breast cancer, Onset Age: 64 Type 2 diabetes mellitus Father Diabetes Coronary heart disease Type 2 diabetes mellitus Myocardial infarction, Onset Age: 52 Family/Other Hypertension sibling Grandmother (Maternal) Cancer Grandfather (Maternal) Cancer Denies family history of Ovarian cancer Social History (Updated 10/31/23 @ 09:01 by Evelyn Paredes LPN) Smoking Status: Former smoker Tobacco Type: Cigarettes Age Started Using Tobacco: 13; Age Quit Using Tobacco: 58; packs per day: 0.5; Cigarettes Per Day: 8-10 cigs/day; Second Hand Exposure: No; Do You Dip or Chew Tobacco: No; Tobacco Cessation Education Requested by Patient: No Hx Alcohol Use: No Preferred Language: Italian Communication Ability: Effective Visual Impairment: No Limitations Hearing Ability: Normal Tube Pusher Required: No Beliefs That Will Affect Care: None marital status: Current Living Situation: Spouse Current Living Situation Comment: Home with current occupational status: disabled How many Children do You have: 5 Other Information That Helps Us Care for You: No Feels Safe at Home: Yes Safety Concerns: Feels Safe At This Time Childhood Exposure to Second-Hand Smoke: No Diet: low salt caffeine: Yes (1/2 cup of coffee a day) during the past year weight has: remained stable Dental Care, Regularly: No Physical Activity Frequency: 1-2 Times per Week Seatbelt Use: always Sunscreen Use: No Assistive Devices: Cane, CPAP, Nebulizer, Walker and Wheelchair Review of Systems Review of Systems: See HPI above Physical Exam Physical Exam: General: Acute physical distress secondary to LBP; pain with any form of movement; non-toxic appearing; well-nourished; cooperative HEENT: normocephalic, atraumatic; no scleral icterus; PERRLA w/ EOMs intact; moist mucus membrane; vision and hearing grossly intact Neck: supple; no lymphadenopathy; trachea midline Skin: warm, dry without signs of tenting; no cyanosis; no rashes, bruising, lesions, or erythema noted CV: chest wall NTP; RRR; S1/S2 normal; no murmurs/rubs/gallops; pulses intact and symmetric at radial, DP, and PT Lungs: no acute respiratory distress; symmetrical chest wall expansion; clear breath sounds across all lung mohr w/o adventitious sounds; no wheezing ABD: Soft, NTP; BS present; no rebound/guarding; no distention Back: TTP; drain in place MSK: no tics or fasciculations; no edema noted in the LEs b/l (SCDs/teds in place); patient demonstrates ability to wiggle toes bilaterally; neurovascularly intact with good pulses and DP bilaterally Neuro: A&Ox3; normal mood and affect; fluent speech; no focal deficits; patient reports decreased sensation in the RLE assessed via light touch at the feet Results & Data Results & Data Vital Signs (Past 12 Hours) Vital Signs Temp Pulse Pulse Resp BP BP Pulse Ox 11/21/23 17:34 75 18 119/79 100 11/21/23 16:35 66 14 100 11/21/23 16:16 72 20 126/73 100 11/21/23 15:09 36.6 C 71 18 121/80 98 11/21/23 14:39 68 12 119/74 97 11/21/23 14:10 11/21/23 14:10 36.6 C 72 16 115/72 100 11/21/23 13:55 71 14 116/58 L 98 11/21/23 13:45 36.5 C 65 15 102/54 L 100 11/21/23 13:35 66 12 106/51 L 100 11/21/23 13:25 66 22 102/52 L 97 11/21/23 13:15 66 22 133/79 100 11/21/23 13:05 66 13 152/81 H 100 11/21/23 12:55 71 17 148/78 H 100 11/21/23 12:46 36.0 C L 74 16 162/105 H 98 11/21/23 09:38 36.8 C 74 20 130/71 97 O2 Del Method O2 Flow Rate 11/21/23 17:34 Nasal Cannula 2 11/21/23 16:35 Nasal Cannula 1 11/21/23 16:16 Nasal Cannula 11/21/23 15:09 Room Air 11/21/23 14:39 Nasal Cannula 2 11/21/23 14:10 Nasal Cannula 2 11/21/23 14:10 Nasal Cannula 11/21/23 13:55 Nasal Cannula 2 11/21/23 13:45 Nasal Cannula 3 11/21/23 13:35 Nasal Cannula 3 11/21/23 13:25 Nasal Cannula 3 11/21/23 13:15 Nebulizer 6 11/21/23 13:05 Nasal Cannula 3 11/21/23 12:55 Nasal Cannula 3 11/21/23 12:46 Nasal Cannula 3 11/21/23 09:38 Room Air Laboratory Results Abnormal lab results 11/21/23 11/21/23 11/21/23 Range/Units 09:08 13:54 17:00 POC Glucose 145 H 155 H 184 H (70-99) mg/dl Crossmatch See Detail Diagnostic Findings Lumbar Spine X-Ray 11/21/23 00:00 FL lumbar spine 2-3V CLINICAL HISTORY: L3-S1 DECOMP/FUSION COMPARISON STUDY: CT lumbar spine 09/22/2023 FLUOROSCOPY TIME: 31.1 seconds FLUOROSCOPY IMAGES: 3 EXPOSURE DOSE: 31.28 mGy FINDINGS: 4 level posterior interbody ayaan and screw fusion hardware with discectomy is noted extending from L3-S1. The hardware appears intact. There is a linear ill-defined radiodense structure noted posterior to the L3-L4 intervertebral disc space. Seen best on the lateral view. Note that the images were submitted following completion of the surgery. IMPRESSION: Fluoroscopic assistance as above. ACT 112: Negative or not required by law. Electronically signed by: Errol Cruz M.D. 11/21/2023 12:47 PM PG Care Time/CCT Total # of Minutes Spent Total Time Spent with Patient: Total time spent is greater than 50% in coordination of care (as documented) at patient's floor/unit and/or counseling patient: C[place] [address] IN/OBS CONSULT LVL 4,60M Patient Type Established Medical Decision Making Moderate Complexity Diagnoses S/P spinal surgery Z98.890 Essential hypertension I10 Hypertension type: essential hypertension Chronic pain syndrome G89.4 Chronic systolic (congestive) heart failure I50.22 Type 2 diabetes mellitus with hyperglycemia, with long-term current use of insulin E11.65; Z79.4 Diabetes mellitus complication status: with hyperglycemia Diabetes mellitus 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-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 History of tobacco abuse Z87.891 GERD (gastroesophageal reflux disease) K21.9 History of pulmonary embolism Z86.711 Obstructive sleep apnea on CPAP G47.33; Z99.89 Hyperlipidemia, unspecified hyperlipidemia type E78.5 Hyperlipidemia type: unspecified Depression, unspecified depression type F32.9 Depression Type: unspecified (2) Hypertension Hypertension type: essential hypertension Qualified Code(s): I10 - Essential (primary) hypertension (5) Diabetes mellitus, type 2 Diabetes mellitus complication status: with hyperglycemia 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
[2023-11-21] MEDS: ceFAZolin 2000MG 2,000 MG/15 ML SYR IV SCH (19:34)
[2023-11-21] MEDS: HYDROmorphone INJ 1 MG/ML SYRINGE IV PRN (19:41)
[2023-11-21] MEDS ORDERED: FUROSEMIDE 80 MG TAB PO SCH (21:00)
[2023-11-21] MEDS: DOCUSATE SODIUM 100 MG CAP PO SCH (21:38)
[2023-11-21] MEDS: PANTOprazole 40 MG TAB PO SCH (21:38)
[2023-11-21] MEDS: DOCUSATE SODIUM/SENNA 50/8.6MG TAB PO SCH (21:38)
[2023-11-21] MEDS: oxyCODONE HCL 10 MG TABCR (OxyCONTIN) PO SCH (21:38)
[2023-11-21] MEDS: ATORVASTATIN 40 MG TAB PO SCH (21:38)
[2023-11-22] MEDS: INSULIN ASPART PER UNIT CHARGE SC SCH ×6 (00:16→20:40)
[2023-11-22] MEDS: oxyCODONE/ACETAMINOPHEN 10-325 TAB PO PRN ×4 (00:17→16:50)
[2023-11-22] MEDS: ceFAZolin 2000MG 2,000 MG/15 ML SYR IV SCH (01:40)
[2023-11-22] MEDS: ALBUT/IPRATROP 3MG/0.5MG NEB 3 ML VIAL NEB SCH ×4 (01:57→19:29)
[2023-11-22] MEDS ORDERED: POLYETHYLENE (MIRALAX) 17 GM PACK ONE (05:00)
[2023-11-22] MEDS: POLYETHYLENE (MIRALAX) 17 GM PACK PO SCH ×4 (06:03→22:01)
[2023-11-22] MEDS: HYDROmorphone INJ 1 MG/ML SYRINGE IV PRN ×3 (08:08→22:02)
[2023-11-22] MEDS: METOPROLOL SUCC 25MG EXT REL TAB PO SCH (08:13)
[2023-11-22] MEDS: ASPIRIN 81 MG ECTAB PO SCH (08:13)
[2023-11-22] MEDS: DULoxetine HCL 30 MG CAP PO SCH (08:13)
[2023-11-22] MEDS: DOCUSATE SODIUM 100 MG CAP PO SCH ×2 (08:13→20:21)
[2023-11-22] MEDS: dexAMETHasone 6 MG in SYRINGE 0 ML IV SCH (08:13)
[2023-11-22] MEDS: NICOTINE 21 MG/24 HR TDSY TD SCH (08:14)
[2023-11-22] MEDS: FLUTICASONE/VILANTEROL 100/25MCG 14 PUFFS/INHALER INH SCH (08:16)
[2023-11-22] MEDS: oxyCODONE HCL 10 MG TABCR (OxyCONTIN) PO SCH ×2 (08:24→20:20)
[2023-11-22] MEDS: PREGABALIN 150 MG CAP PO SCH ×3 (08:24→20:20)
[2023-11-22] MEDS: POTASSIUM CHLORIDE CRTAB 20 MEQ TABCR PO SCH ×3 (08:24→20:20)
[2023-11-22 08:41] LABS: Basophils # (auto) 0.01 K/uL (0.00-0.20); Basophils % (auto) 0.1 %; Eosinophils # (auto) 0.11 K/uL (0.00-0.50); Hematocrit (blood only) 29.8 % (37.0-47.0); Hemoglobin 9.4 g/dl (12.0-16.0); Immature Granulocytes # (auto) 0.04 K/uL (0.01-0.20); Immature Granulocytes % (auto) 0.4 %; Lymphocytes # (auto) 2.64 K/uL (1.20-3.40); Lymphocytes % (auto) 23.8 %; Mean Corpuscular Hemoglobin 28.7 pg (25.0-34.0); Mean Corpuscular Hgb Conc 31.5 g/dL (32.0-36.0); Mean Corpuscular Volume 90.9 fL (80.0-100.0); Mean Platelet Volume 12.1 fL (9.4-12.4); Monocytes # (auto) 0.85 K/uL (0.11-0.59); Monocytes % (auto) 7.7 %; Neutrophils # (auto) 7.43 K/uL (1.40-6.50); Platelet Count 178 K/uL (130-400); RDW Coefficient of Variation 15.8 % (11.5-14.5); RDW Standard Deviation 52.2 fL (36.4-46.3); Red Blood Count 3.28 M/uL (4.20-5.40); White Blood Count 11.08 K/ul (4.8-10.8)
[2023-11-22] MEDS ORDERED: LOSARTAN POTASSIUM 25 MG TAB PO SCH (09:00)
[2023-11-22] MEDS ORDERED: LANTUS PER UNIT CHARGE SC SCH (09:00)
[2023-11-22 09:01] LABS: BUN Creatinine Ratio 16.9 (10-20); Calcium 8.7 mg/dl (8.6-10.3); Creatinine Clr Calc Pharmacy 66.1 ml/min; Est GFR (African American) 58.5 ml/min; Est GFR (Non-African American) 50.4 ml/min; Potassium 4.3 mmol/L (3.5-5.1)
--- NOTE | 2023-11-22 10:47 | Orthopedic Progress Note ---
Date of Service November 22, 2023 Assessment & Plan (1) Neurogenic claudication due to lumbar spinal stenosis: Plan: This time initiate physical therapy monitor her JOAQUIN output. She may be a candidate for rehab. Admission and Anticipated Discharge Date Admission Date: November 21, 2023 Subjective Back pain controlled leg pain improved Physical Exam Physical Exam: Patient is currently in bed. EXTR strength testing sensory intact. Results & Data Vital Signs (Past 12 Hours) Vital Signs Temp Pulse Pulse Pulse Resp BP Pulse Ox 11/22/23 08:00 36.9 C 80 18 115/73 97 11/22/23 07:37 84 16 98 11/22/23 03:00 36.9 C 83 20 112/73 100 11/22/23 01:57 84 14 98 11/22/23 01:57 84 14 98 11/21/23 23:03 37 C 73 20 117/75 94 O2 Del Method O2 Flow Rate 11/22/23 08:00 Nasal Cannula 1 11/22/23 07:37 CPAP 11/22/23 03:00 CPAP 11/22/23 01:57 CPAP 1 11/22/23 01:57 1 11/21/23 23:03 CPAP
--- NOTE | 2023-11-22 11:55 | Pharmacy Report ---
Pharmacy Glycemic Short Note 2 - Date of Service November 22, 2023 - Glycemic Short BSG Results (Last 24 hours): 11/21/23 11/21/23 11/21/23 13:54 17:00 20:20 Glucose POC Glucose 155 H 184 H 192 H 11/21/23 11/21/23 11/21/23 23:53 23:55 23:57 Glucose POC Glucose 329 H* 206 H 245 H 11/22/23 11/22/23 11/22/23 04:11 07:42 07:52 Glucose 144 H POC Glucose 205 H 156 H 11/22/23 11:46 Glucose POC Glucose 161 H OUTPATIENT ANTIDIABETIC REGIMEN: * metformin 1 gm bid, dulaglutide 4.5 mg SQ weekly ASSESSMENT: 11/22 * POD1, Type 2 DM diet. * Patient on IV dexamethasone 6mg IV Daily x3 days, will give Lantus daily with dexamethasone to cover steroid effects. * Continue CF/CR at this time, will tighten if BSG rises with meals today. 11/21 * 58 year old, POD 0 surgery - pharmacy consulted for glycemic management. Steroids pulled in OR, therefore anticipate steroid induced hyperglycemia. Will plan to give Lantus 20 units x 1 and start stress 3 dosing for novolog with overnight checks. * Dexamethasone ordered ongoing tomorrow AM PLAN FOR INPATIENT GLYCEMIC CONTROL: * Hold outpatient diabetes medications * Basal insulin * Lantus 30 units SQ DAILY with IV Dexamethasone * Bolus insulin * NovoLog per scale ACHS or Q6hrs while NPO * Goal Range: Low 110 mg/dL - High 140 mg/dL * Correction Factor: 15 mg/dL/unit * Nutritional / Prandial insulin per carb ratio of 1 unit per 5 grams CHO consumed
--- NOTE | 2023-11-22 16:53 | Hospitalist Progress Note ---
Date of Service November 22, 2023 Assessment & Plan (1) S/P spinal surgery: Plan: L3-S1 lumbar decompression by Dr. Cheney on 11/21/2023 - POD #1 defer pain management and disposition to primary team per anticoagulation clinic notes, and I confirmed this with Dr Cheney - warfarin to be resumed 3 days post-op on chronic anticoagulation for [facility] AV - INR goal 2.5 to 3.5 PT, OT evals (2) Acute on chronic heart failure with preserved ejection fraction: Plan: extensive wheezing could all be due to COPD however, does have h/o systolic CHF (EF now normalized based on echo done earlier this month) takes lasix 80mg daily cxr obtained due to wheezing -- pulm edema seen lasix 40mg IV x 1 now repeat labs am repeat exam tomorrow cont metoprolol succ 25mg qam (3) Hypertension: Plan: continue to hold losartan continue metoprolol succ (4) Chronic pain syndrome: Plan: Continue Lyrica defer pain meds to Dr Cheney for acute pain (5) Diabetes mellitus, type 2: Plan: Last A1c at 8.5% on 08/10/2023 holding metformin, dulaglutide (Trulicity) cont lantus cont novolog adjust as needed (6) History of tobacco abuse: Plan: Nicotine patch (7) GERD (gastroesophageal reflux disease): Plan: Continue pantoprazole (8) History of pulmonary embolism: Plan: In 2021; on warfarin Patient was transitioned by anticoagulation clinic to Lovenox 120 mg SQ q12h and was taking it from 11/18 - 11/20 also on warfarin for [facility] AV - INR goal 2.5 to 3.5 start warfarin 3 days post-op per cardiology & anticoagulation clinic recs (9) Obstructive sleep apnea on CPAP: Plan: CPAP HS (10) Hyperlipidemia: Plan: Continue atorvastatin (11) Depression: Plan: Continue duloxetine (12) History of mitral valve replacement with mechanical valve: Plan: see above (13) Acute blood loss anemia: Plan: 2 gram drop from pre-op labs mild, repeat H/H in am Plan will cont to follow Admission and Anticipated Discharge Date Admission Date: November 21, 2023 Subjective having back pain but no worse than pre-op denies radicular symptoms of legs coughing/wheezing - states it is near-baseline using nebs here much like at home -- uses duonebs QID no bowel movement yet but passing flatus eating/drinking ok is requiring NC O2 - is not on such at home but uses nightly CPAP Review of Systems Review of Systems: cv - mild chest tightness related to COPD pulm - cough/wheeze GI - no abd pain or N/V Physical Exam Physical Exam: gen - obese, NAD, laying relatively flat in bed neck - ?JVD mouth - MMM heart - mech valve closure sound, RRR, s1 s2 lungs - diffuse wheezing all lung segments, no discernible rales abd - soft NT ND BS+ ext - no edema, pulses 2+ b/l skin - dressings intact lower back Results & Data Results & Data Vital Signs (Past 12 Hours) Vital Signs Temp Pulse Pulse Pulse Resp BP Pulse Ox 11/22/23 16:20 36.9 C 62 18 114/66 96 11/22/23 14:04 36.4 C L 67 16 134/74 94 11/22/23 14:03 11/22/23 13:22 78 22 96 11/22/23 12:45 37.1 C 66 20 129/80 96 11/22/23 08:00 36.9 C 80 18 115/73 97 11/22/23 07:37 84 16 98 Pulse Ox Pulse Ox O2 Del Method O2 Flow Rate O2 Flow Rate O2 Flow Rate 11/22/23 16:20 Nasal Cannula 2 11/22/23 14:04 Room Air 11/22/23 14:03 95 93 0 0 11/22/23 13:22 Nasal Cannula 1 11/22/23 12:45 Nasal Cannula 2 11/22/23 08:00 Nasal Cannula 1 11/22/23 07:37 CPAP Laboratory Results Laboratory Results - last 24 hr 11/22/23 11/22/23 11/22/23 07:42 07:52 11:46 WBC 11.08 H RBC 3.28 L Hgb 9.4 L Hct 29.8 L MCV 90.9 MCH 28.7 MCHC 31.5 L RDW Std Deviation 52.2 H RDW Coeff of Majo 15.8 H Plt Count 178 MPV 12.1 Immature Gran % (Auto) 0.4 Neut % (Auto) 67.0 Lymph % (Auto) 23.8 Morrill % (Auto) 7.7 Eos % (Auto) 1.0 Baso % (Auto) 0.1 Neut # (Auto) 7.43 H Lymph # (Auto) 2.64 Morrill # (Auto) 0.85 H Eos # (Auto) 0.11 Baso # (Auto) 0.01 Immature Gran # (Auto) 0.04 Sodium 136 Potassium 4.3 Chloride 103 Carbon Dioxide 28 Anion Gap 5 BUN 20 Creatinine 1.18 Est Cr Clr Drug Dosing 66.1 Est GFR ( Amer) 58.5 Est GFR (Non-Af Amer) 50.4 BUN/Creatinine Ratio 16.9 Glucose 144 H POC Glucose 156 H 161 H Calcium 8.7 11/22/23 11/22/23 16:50 20:10 WBC RBC Hgb Hct MCV MCH MCHC RDW Std Deviation RDW Coeff of Majo Plt Count MPV Immature Gran % (Auto) Neut % (Auto) Lymph % (Auto) Morrill % (Auto) Eos % (Auto) Baso % (Auto) Neut # (Auto) Lymph # (Auto) Morrill # (Auto) Eos # (Auto) Baso # (Auto) Immature Gran # (Auto) Sodium Potassium Chloride Carbon Dioxide Anion Gap BUN Creatinine Est Cr Clr Drug Dosing Est GFR ( Amer) Est GFR (Non-Af Amer) BUN/Creatinine Ratio Glucose POC Glucose 262 H 189 H Calcium PG Care Time/CCT Total # of Minutes Spent Total Time Spent with Patient: Total time spent is greater than 50% in coordination of care (as documented) at patient's floor/unit and/or counseling patient: Coding Level of Care Code 79942 SUB INP/OBS CARE 3/50MIN Diagnoses S/P spinal surgery Z98.890 Acute on chronic heart failure with preserved ejection fraction I50.33 Essential hypertension I10 Hypertension type: essential hypertension Chronic pain syndrome G89.4 Type 2 diabetes mellitus with hyperglycemia, with long-term current use of insulin E11.65; Z79.4 Diabetes mellitus complication status: with hyperglycemia Diabetes mellitus group home insulin use: with manager long term care use History of tobacco abuse Z87.891 GERD (gastroesophageal reflux disease) K21.9 History of pulmonary embolism Z86.711 Obstructive sleep apnea on CPAP G47.33; Z99.89 Hyperlipidemia, unspecified hyperlipidemia type E78.5 Hyperlipidemia type: unspecified Depression, unspecified depression type F32.9 Depression Type: unspecified History of mitral valve replacement with mechanical valve Z95.2 Acute blood loss anemia D62 (3) Hypertension Hypertension type: essential hypertension Qualified Code(s): I10 - Essential (primary) hypertension (5) Diabetes mellitus, type 2 Diabetes mellitus complication status: with hyperglycemia Diabetes mellitus group home insulin use: with group home use Qualified Code(s): E11.65 - Type 2 diabetes mellitus with hyperglycemia; Z79.4 - manager long term care (current) use of insulin (10) Hyperlipidemia Hyperlipidemia type: unspecified Qualified Code(s): E78.5 - Hyperlipidemia, unspecified (11) Depression Depression Type: unspecified Qualified Code(s): F32.9 - Major depressive disorder, single episode, unspecified
[2023-11-22] MEDS ORDERED: FUROSEMIDE 40 MG/4 ML VIAL IV ONE (19:29)
--- NOTE | 2023-11-22 19:30 | XRay Report ---
XR chest 1V portable HISTORY: b/l wheezing; check for pulm edema COMPARISON: Chest 10/26/2023. FINDINGS: Slightly rotated study. No pneumothorax. The heart is enlarged. There are poststernotomy ch anges and a cardiac valve prosthesis again noted. There is right greater than left perihilar intersti tial/vascular thickening consistent with developing asymmetric pulmonary edema. Linear density within the left midlung zone favors subsegmental atelectasis. Suspect a trace right pleural effusion. IMPRESSION: Cardiomegaly with developing asymmetric pulmonary edema and a trace right pleural effusion. ACT 112: Negative or not required by law. Electronically signed by: Octaviano Garcia M.D. 11/22/2023 7:29 PM
[2023-11-22] MEDS: DOCUSATE SODIUM/SENNA 50/8.6MG TAB PO SCH (20:20)
[2023-11-22] MEDS: ATORVASTATIN 40 MG TAB PO SCH (20:21)
[2023-11-22] MEDS: PANTOprazole 40 MG TAB PO SCH (20:21)
[2023-11-23] MEDS: oxyCODONE/ACETAMINOPHEN 10-325 TAB PO PRN ×4 (00:43→21:29)
[2023-11-23] MEDS: ALBUT/IPRATROP 3MG/0.5MG NEB 3 ML VIAL NEB SCH ×4 (01:07→19:50)
[2023-11-23] MEDS: HYDROmorphone INJ 0.5 MG/0.5 ML SYR IV PRN ×2 (06:05→11:31)
[2023-11-23] MEDS: POLYETHYLENE (MIRALAX) 17 GM PACK PO SCH ×3 (06:05→17:11)
[2023-11-23 07:33] LABS: Hemoglobin 8.2 g/dl (12.0-16.0); Mean Corpuscular Hemoglobin 28.5 pg (25.0-34.0); Mean Corpuscular Hgb Conc 31.5 g/dL (32.0-36.0); Mean Corpuscular Volume 90.3 fL (80.0-100.0); Mean Platelet Volume 12.4 fL (9.4-12.4); Platelet Count 153 K/uL (130-400); RDW Coefficient of Variation 15.9 % (11.5-14.5); RDW Standard Deviation 51.9 fL (36.4-46.3); Red Blood Count 2.88 M/uL (4.20-5.40); White Blood Count 16.66 K/ul (4.8-10.8)
[2023-11-23 08:00] LABS: Calcium 9.2 mg/dl (8.6-10.3); Creatinine Clr Calc Pharmacy 101.3 ml/min; Est GFR (Non-African American) 84.5 ml/min; Potassium 5.2 mmol/L (3.5-5.1)
[2023-11-23] MEDS: DOCUSATE SODIUM 100 MG CAP PO SCH ×2 (08:00→21:30)
[2023-11-23] MEDS: dexAMETHasone 6 MG in SYRINGE 0 ML IV SCH (08:00)
[2023-11-23] MEDS: FLUTICASONE/VILANTEROL 100/25MCG 14 PUFFS/INHALER INH SCH (08:00)
[2023-11-23] MEDS: NICOTINE 21 MG/24 HR TDSY TD SCH (08:00)
[2023-11-23] MEDS: METOPROLOL SUCC 25MG EXT REL TAB PO SCH (08:00)
[2023-11-23] MEDS: DULoxetine HCL 30 MG CAP PO SCH (08:00)
[2023-11-23] MEDS: oxyCODONE HCL 10 MG TABCR (OxyCONTIN) PO SCH ×2 (08:01→21:30)
[2023-11-23] MEDS: POTASSIUM CHLORIDE CRTAB 20 MEQ TABCR PO SCH ×3 (08:02→21:30)
[2023-11-23] MEDS: PREGABALIN 150 MG CAP PO SCH ×3 (08:02→21:30)
[2023-11-23] MEDS: ASPIRIN 81 MG ECTAB PO SCH (08:11)
--- NOTE | 2023-11-23 08:30 | Orthopedic Progress Note ---
Date of Service November 23, 2023 Assessment & Plan (1) Neurogenic claudication due to lumbar spinal stenosis: Plan: At this time she seems to have improved over the past 24 hours. There is been some discussion regarding rehab but she would prefer to go home. This may occur tomorrow pending her progress today. Admission and Anticipated Discharge Date Admission Date: November 21, 2023 Subjective Patient's back pain is controlled leg pain markedly improved Physical Exam Physical Exam: Patient is in the chair at the bedside. She stood up and ambulate about the room without difficulty. Results & Data Vital Signs (Past 12 Hours) Vital Signs Temp Pulse Pulse Pulse Resp BP Pulse Ox 11/23/23 07:37 11/23/23 07:18 18 97 11/23/23 07:15 36.7 C 54 L 20 101/58 L 97 11/23/23 03:49 72 20 98 11/23/23 01:09 60 18 98 11/22/23 22:20 73 23 99 11/22/23 21:37 O2 Del Method O2 Flow Rate 11/23/23 07:37 CPAP 2 11/23/23 07:18 11/23/23 07:15 Room Air 11/23/23 03:49 2 11/23/23 01:09 CPAP 2 11/22/23 22:20 2 11/22/23 21:37 Room Air Queries Orthopedic Spine Acute Posthemorrhagic Anemia: Yes Obesity: Yes
[2023-11-23] MEDS: INSULIN ASPART PER UNIT CHARGE SC SCH ×4 (08:46→21:35)
[2023-11-23] MEDS ORDERED: LANTUS PER UNIT CHARGE SC SCH (09:00)
--- NOTE | 2023-11-23 13:39 | Pharmacy Report ---
Pharmacy Glycemic Short Note 2 - Date of Service November 23, 2023 - Glycemic Short BSG Results (Last 24 hours): 11/22/23 11/22/23 11/23/23 16:50 20:10 06:59 Glucose 269 H POC Glucose 262 H 189 H 11/23/23 11/23/23 07:43 11:37 Glucose POC Glucose 220 H 187 H OUTPATIENT ANTIDIABETIC REGIMEN: * metformin 1 gm bid, dulaglutide 4.5 mg SQ weekly ASSESSMENT: 11/23 * Blood sugars above goal on 93 units of insulin yesterday, 30 units basal. * Increase basal and tighten CF/CR at this time, today is day #2/3 of IV Dexamethasone. 11/22 * POD1, Type 2 DM diet. * Patient on IV dexamethasone 6mg IV Daily x3 days, will give Lantus daily with dexamethasone to cover steroid effects. * Continue CF/CR at this time, will tighten if BSG rises with meals today. 11/21 * 58 year old, POD 0 surgery - pharmacy consulted for glycemic management. Steroids pulled in OR, therefore anticipate steroid induced hyperglycemia. Will plan to give Lantus 20 units x 1 and start stress 3 dosing for novolog with overnight checks. * Dexamethasone ordered ongoing tomorrow AM PLAN FOR INPATIENT GLYCEMIC CONTROL: * Hold outpatient diabetes medications * Basal insulin * Lantus 35 units SQ DAILY with IV Dexamethasone * Bolus insulin * NovoLog per scale ACHS or Q6hrs while NPO * Goal Range: Low 110 mg/dL - High 140 mg/dL * Correction Factor: 12 mg/dL/unit * Nutritional / Prandial insulin per carb ratio of 1 unit per 4 grams CHO consumed
[2023-11-23] MEDS ORDERED: FUROSEMIDE 80 MG TAB PO ONE (17:07)
--- NOTE | 2023-11-23 20:25 | Hospitalist Progress Note ---
Date of Service November 23, 2023 Assessment & Plan (1) S/P spinal surgery: Plan: POD #2 - s/p L3-S1 lumbar decompression with Dr. Cheney (11/21/2023) Postop lumbar spine x-ray revealed hardware intact PT/INR WNL on 11/21; okay to hold warfarin for now Resume anticoagulation and aspirin at discretion of Dr. Cheney - planning to resume POD #3 PT, OT disposition - per ortho - but by report will be going home w/ family (2) Hypertension: Plan: Cont to Hold losartan - BPs controlled w/o it, and K level is mildly high at 5.2 Continue metoprolol Resuming usual po lasix of 80mg/day (3) Chronic systolic (congestive) heart failure: Plan: Echo on 10/27/23 revealed LVEF at 55-60% May have had mild decompensation post-op -- gave 40mg of IV lasix yesterday Looks compensated today -- resume usual PO lasix dose of 80mg/day BMP am (4) Acute on chronic heart failure with preserved ejection fraction: Plan: volume status improved today lung exam improved today following IV lasix yesterday will resume PO lasix today at home dosing of 80mg/day (5) Chronic pain syndrome: Plan: Continue Lyrica (6) Diabetes mellitus, type 2: Plan: Last A1c at 8.5% on 08/10/2023 Agree with holding metformin, dulaglutide (Trulicity) Cont lantus-novolog coverage T2DM diet BSG [facility] pharmacy team is providing glycemic oversight (7) History of tobacco abuse: Plan: Nicotine patch (8) GERD (gastroesophageal reflux disease): Plan: Continue pantoprazole (9) History of pulmonary embolism: Plan: In 2021; on warfarin Patient was transitioned by anticoagulation clinic to Lovenox 120 mg SQ q12h pre-operatively and was taking it from 11/18 - 11/20 resume warfarin 3 days post-op (10) Obstructive sleep apnea on CPAP: Plan: CPAP HS (11) Hyperlipidemia: Plan: Continue atorvastatin (12) Depression: Plan: Continue duloxetine (13) Acute blood loss anemia: Plan: 3 gram drop from admission repeat H/H am consider IV venofer prior to discharge (14) History of mitral valve replacement with mechanical valve: Plan: on chronic warfarin, INR goal 2.5 to 3.5 nice mech valve closure sound on examination resume warfarin POD #3 Plan will cont to follow Admission and Anticipated Discharge Date Admission Date: November 21, 2023 Subjective continues with low back pain over surgical site but radicular pains to legs MUCH improved wheezing improved denies dyspnea or KLINE during the visit was lying flat in bed comfortably eating well drinking +flatus but no stool possibly going home tomorrow ? Review of Systems Review of Systems: cv - no orthopnea pulm - used CPAP last pm for SMITA; no cough or dyspnea GI - no abd pain; no N/V Physical Exam Physical Exam: gen - obese, NAD, laying relatively flat in bed comfortably without orthopnea; able to get from supine position to standing pretty well neck - no JVD today mouth - MMM heart - [facility] valve closure sound, RRR, s1 s2 lungs - diffuse wheezing all lung segments still present but improved from yesterday; good airation; no rales abd - soft NT ND BS+ ext - no edema, pulses 2+ b/l skin - dressings intact lower back Results & Data Results & Data Vital Signs (Past 12 Hours) Vital Signs Temp Pulse Pulse Resp BP Pulse Ox O2 Del Method 11/23/23 19:50 82 16 94 Room Air 11/23/23 14:42 36.6 C 55 L 17 135/71 94 Room Air 11/23/23 12:57 18 93 Room Air Laboratory Results Laboratory Results - last 24 hr 11/23/23 11/23/23 11/23/23 06:59 07:43 11:37 WBC 16.66 H RBC 2.88 L Hgb 8.2 L Hct 26.0 L MCV 90.3 MCH 28.5 MCHC 31.5 L RDW Std Deviation 51.9 H RDW Coeff of Majo 15.9 H Plt Count 153 MPV 12.4 Sodium 135 L Potassium 5.2 H D Chloride 105 Carbon Dioxide 26 Anion Gap 4 BUN 20 Creatinine 0.77 D Est Cr Clr Drug Dosing 101.3 Est GFR ( Amer) 98.0 Est GFR (Non-Af Amer) 84.5 BUN/Creatinine Ratio 26.0 H Glucose 269 H POC Glucose 220 H 187 H Calcium 9.2 Magnesium 2.0 PG Care Time/CCT Total # of Minutes Spent Total Time Spent with Patient: Total time spent is greater than 50% in coordination of care (as documented) at patient's floor/unit and/or counseling patient: Coding Level of Care Code 17024 SUB INP/OBS CARE 2/35MIN Diagnoses S/P spinal surgery Z98.890 Essential hypertension I10 Hypertension type: essential hypertension Chronic systolic (congestive) heart failure I50.22 Acute on chronic heart failure with preserved ejection fraction I50.33 Chronic pain syndrome G89.4 Type 2 diabetes mellitus with hyperglycemia, with long-term current use of insulin E11.65; Z79.4 Diabetes mellitus complication status: with hyperglycemia Diabetes mellitus long-term insulin use: with long-term use History of tobacco abuse Z87.891 GERD (gastroesophageal reflux disease) K21.9 History of pulmonary embolism Z86.711 Obstructive sleep apnea on CPAP G47.33; Z99.89 Hyperlipidemia, unspecified hyperlipidemia type E78.5 Hyperlipidemia type: unspecified Depression, unspecified depression type F32.9 Depression Type: unspecified Acute blood loss anemia D62 History of mitral valve replacement with mechanical valve Z95.2 (2) Hypertension Hypertension type: essential hypertension Qualified Code(s): I10 - Essential (primary) hypertension (6) Diabetes mellitus, type 2 Diabetes mellitus complication status: with hyperglycemia Diabetes mellitus lobsterman insulin use: with lobsterman use Qualified Code(s): E11.65 - Type 2 diabetes mellitus with hyperglycemia; Z79.4 - [employer] (current) use of insulin (11) Hyperlipidemia Hyperlipidemia type: unspecified Qualified Code(s): E78.5 - Hyperlipidemia, unspecified (12) Depression Depression Type: unspecified Qualified Code(s): F32.9 - Major depressive disorder, single episode, unspecified
[2023-11-23] MEDS: DOCUSATE SODIUM/SENNA 50/8.6MG TAB PO SCH (21:30)
[2023-11-23] MEDS: ATORVASTATIN 40 MG TAB PO SCH (21:30)
[2023-11-23] MEDS: PANTOprazole 40 MG TAB PO SCH (21:30)
[2023-11-23] MEDS: HYDROmorphone INJ 1 MG/ML SYRINGE IV PRN (22:48)
[2023-11-24] MEDS: POLYETHYLENE (MIRALAX) 17 GM PACK PO SCH ×3 (00:20→12:05)
[2023-11-24] MEDS: ALBUT/IPRATROP 3MG/0.5MG NEB 3 ML VIAL NEB SCH ×3 (00:28→13:17)
[2023-11-24] MEDS: oxyCODONE/ACETAMINOPHEN 10-325 TAB PO PRN ×2 (04:32→12:05)
--- NOTE | 2023-11-24 07:00 | XRay Report ---
XR sacrum coccyx min 2V CLINICAL HISTORY: fall after lumbosacral fusion. Sacral pain. COMPARISON STUDY: Pelvis 08/25/2021. FINDINGS: Posterior decompression and fusion within the lower lumbar spine to the S1 level with pedic le screws and rods. The visualized hardware appears intact. Surgical drains are seen within the elissa ectomy sites. No fractures within the sacrum or coccyx. Alignment appears intact. IMPRESSION: No fractures identified within the sacrum or coccyx. ACT 112: Negative or not required by law. Electronically signed by: Octaviano Garcia M.D. 11/24/2023 6:59 AM
[2023-11-24 07:40] LABS: Hematocrit (blood only) 26.2 % (37.0-47.0); Hemoglobin 8.1 g/dl (12.0-16.0); Mean Corpuscular Hemoglobin 28.2 pg (25.0-34.0); Mean Corpuscular Hgb Conc 30.9 g/dL (32.0-36.0); Mean Corpuscular Volume 91.3 fL (80.0-100.0); Mean Platelet Volume 12.2 fL (9.4-12.4); Platelet Count 167 K/uL (130-400); RDW Coefficient of Variation 16.3 % (11.5-14.5); RDW Standard Deviation 53.6 fL (36.4-46.3); Red Blood Count 2.87 M/uL (4.20-5.40); White Blood Count 15.48 K/ul (4.8-10.8)
[2023-11-24 08:15] LABS: BUN Creatinine Ratio 27.8 (10-20); Calcium 9.2 mg/dl (8.6-10.3); Creatinine Clr Calc Pharmacy 108.3 ml/min; Est GFR (African American) 106.2 ml/min; Est GFR (Non-African American) 91.7 ml/min; Potassium 4.4 mmol/L (3.5-5.1)
[2023-11-24] MEDS ORDERED: IRON SUCROSE 300 MG in SODIUM CHLORIDE 0.9% 250 ML IV ONE (08:15)
[2023-11-24] MEDS: INSULIN ASPART PER UNIT CHARGE SC SCH ×2 (08:17→12:07)
[2023-11-24] MEDS: dexAMETHasone 6 MG in SYRINGE 0 ML IV SCH (08:18)
[2023-11-24] MEDS: ASPIRIN 81 MG ECTAB PO SCH (08:18)
[2023-11-24] MEDS: DULoxetine HCL 30 MG CAP PO SCH (08:18)
[2023-11-24] MEDS: DOCUSATE SODIUM 100 MG CAP PO SCH (08:18)
[2023-11-24] MEDS: METOPROLOL SUCC 25MG EXT REL TAB PO SCH (08:18)
--- NOTE | 2023-11-24 08:18 | Discharge Summary ---
Date of Service November 24, 2023 Admission HPI Per Admitting Provider This is a 58-year-old male female that presents with persistent back and leg pain after failing since a course of nonoperative care she is here for surgical invention. Principal Diagnosis Lumbar spinal stenosis with neurogenic claudication Discharge Data Allergies Allergy/AdvReac Type Severity Reaction Status Date / Time No Known Allergies Allergy Verified 11/14/23 09:40 Consultations 11/21/23 14:26 Consult Hospitalist Routine Procedures Performed Operation Date: 11/21/23 10:15 Actual Procedures p L3-S1 Decompression and Fusion, Spinal Cord Monitoring(Not Applicable) - Bobo Cheney DO Ordered Studies 11/21/23 [place] lumbar spine 2-3V Routine Hospital Course (1) Neurogenic claudication due to lumbar spinal stenosis: Patient underwent lumbar decompression fusion tolerated as well as taken orth opedic for postoperative. Postop that she progressed appropriately. JOAQUIN drain decreasing. Pain well-controlled. Excellent strength testing. Subsequent discharge home. Discharge orders instructions found in chart for further review. Total Time Total Time Spent Total Time Spent (In Minutes): 20 minutes Discharge Plan Discharge Items Patient Disposition: Home - Home Health Services Reason For Visit: Lumbar disc Disease, Lumbar Foraminal Stenosis Discharge Diagnosis: Lumbar spinal stenosis with neurogenic claudication Activity: As commented below Non-emergency contact: Primary Care Provider Call non-emergency contact if: you have any medication questions Follow-up/Referrals: Sugar Weber MD [Primary Care Provider] - Diet: Regular Addtl Attending Provider Instructions: ACTIVITY RECOMMENDATIONS: SELF CARE INSTRUCTIONS AFTER THORACIC/LUMBAR FUSIONS 1. You may walk to your tolerance. It is good exercise for your legs and back. Expect some back and intermittent leg aches and pains. 2. You may perform "counter-top" level activities (make a sandwich, noemi with a project, etc.). 3. No bending or lifting of more than 10 pounds or back twisting of any nature (roll like a log when turning in bed). 4. You may ride in a car for 20-30 minutes at a time. No driving until after your first visit with your doctor. 5. Frequent changes of position and restricting sitting to 30 minutes at a time will help limit the amount of back spasms and stiffness you may experience. 6. You may discontinue the use of ambulatory aids (cane, crutches, etc.) once your strength and confidence allow. 7. You may regrinder the shower and let water strike your incision when you arrive home at least once daily. Do not take a tub bath, sit in a hot tub or go into a swimming pool until after your first recheck in the office. SPECIAL CARE INSTRUCTIONS: VERY IMPORTANT TO READ AND REVIEW A. Your surgical incision has been closed with a cosmetic suture under the skin that will dissolve in about 6 weeks. In 14 days, you can use a pair of clean scissors and cut the suture that is left outside of the skin at the ends of your incision. 1. The small skin tapes can be removed 7 days after surgery if they have not fallen off by that point. 2. You may keep the wound open to air as much as possible to promote healing after post-op day number 5 unless told otherwise by your doctor. 3. If you think the wound looks like it is becoming infected (redness or worsening drainage) and/or you are experiencing fever, chill or worsening back pain and muscle spasms, contact the office so that we may evaluate you as soon as possible. B. Complications are uncommon, but please contact us if you have any signs or symptoms of: 1. wound infection (fever higher than 102.5 degrees F, redness, separation of wound, drainage, or increasing pain from the incision) 2. blood clots in legs (pain, swelling, redness and warmth in legs) 3. urinary tract infection (fever higher than 102.5 degrees F, burning upon urination or increased frequency of urination) 4. nerve problems (inability to walk on your toes or heels, numbness, loss of bowel or bladder control) 5. any other symptoms that concern you C. Please call the office at if you have any concerns or questions about your operation or recovery. D. No smoking! Smoking drastically decreases the chance of a solid fusion. E. Do not take any anti-inflammatory medications (Indocin, Advil, Motrin, Aspirin, Naprosyn, etc.) as these may inhibit the chance of a solid fusion. Tylenol is okay to take for pain. MANAGING PAIN AFTER SPINAL SURGERY 1. Narcotic medication is intended for short-term use and will be provided for surgical pain. Surgical pain usually lasts for a period of 4-6 weeks. Narcotic medication includes Percocet, Vicodin, Darvocet, Tylenol #3 or Lortab. 2. Longer-term pain is more appropriately treated with non-narcotic medication such as Tylenol ES. 3. Muscle spasm is not appropriately treated with narcotics. Muscle relaxers such as Soma, Flexeril or Skelaxin can be used along with Tylenol ES. 4. Remember that we all live with some "aches and pains". This is not unusual or uncommon after an injury or as we get older. a. Back pain is expected and may include muscle spasms for 4 to 6 weeks after surgery. The pain should gradually improve. If the pain worsens for no apparent reason, please contact the office. b. Intermittent leg pain may also be experienced and should not be concerned about unless it worsens for no apparent reason. If so, please contact the office. 5. We will provide appropriate medication within the normal guidelines of their prescribed use. We will also be very cautious and aware of potential abuse and extended duration of patients' medication needs. a. Pain medications are for your comfort and to assist with sleep and rest so that the tissue can heal. They are not provided in order to return to normal activity and should not be used through the day. To do so or worsening pain at night can result from ongoing tissue damage and development of tolerance to the prescribed medicine. 6. Please allow 2-3 days to process refills. Prescriptions will not be mailed but must be picked up at the office. FOLLOW UP VISIT: Keep your scheduled follow-up appointment. Any questions, please call the office at . Pending Studies at Discharge: No Stand-Alone Forms: [facility] [employer], Smoking Cessation Medications and DC Order Prescriptions: New oxycodone 5 mg tablet 5 mg PO Q6H PRN (Reason: pain) Qty: 30 0RF Continued warfarin 5 mg tablet See Rx Instructions PO UD Rx Instructions: 10mg q M//, 15mg x 4 days per [facility] Clinic orally use as directed; (DME) [place] [facility] [place]ructions .Route Qty: 1 0RF Rx Instructions: As directed-HOSPITAL BED, LENGTH OF NEED 99 MONTHS, DX CODE; Z98.890 Proctofoam HC 1-1 % foam 1 applic [place] BID PRN (Reason: hemorrhoids) Qty: 10 0RF Atrovent HFA 17 mcg/actuation HFA aerosol inhaler 2 puff INHALATION TID Qty: 12.9 5RF losartan 25 mg tablet 25 mg PO QAM 90 Days Qty: 90 5RF metoprolol succinate 25 mg tablet extended release 24 hr 25 mg PO QAM 90 Days Qty: 90 4RF atorvastatin 40 mg tablet 40 mg PO QPM 90 Days Qty: 90 2RF lidocaine [Lidoderm] 5 % adhesive patch,medicated 1 patch topical DAILY Qty: 15 1RF Rx Instructions: leave on most painful area for up to 12 hrs nitroglycerin 0.4 mg tablet, sublingual 0.4 mg sublingual Q5M PRN (Reason: Chest Pain) Qty: 30 6RF Rx Instructions: do not exceed 3 doses per episode (DME) St[facility] See Rx Instructions .Route .MEDSUPPLY Qty: 1 0RF Rx Instructions: To be installed and used as directed to allow safe ambulation of stairs in patient home potassium chloride 10 mEq capsule, extended release 20 meq PO TID Patient Comments: duloxetine 30 mg capsule,delayed release(DR/EC) 30 mg PO QAM 30 Days Qty: 30 3RF cyclobenzaprine 5 mg tablet 5 mg PO BID PRN (Reason: muscle spasm) 30 Days Qty: 20 1RF oxycodone 5 mg tablet 5 mg PO QID PRN (Reason: Pain, Severe) 30 Days Qty: 30 0RF (DME) Bedside Commode Misc See Rx Instructions .Route Qty: 1 0RF Rx Instructions: As directed pregabalin 150 mg capsule 150 mg PO TID 30 Days Qty: 90 3RF Prevnar 20 (PF) 0.5 mL syringe 0.5 ml IM ONCE Qty: 0.5 0RF Rx Instructions: please administer acetaminophen [Tylenol Extra Strength] 500 mg tablet 1,000 mg PO BID Qty: 60 0RF oxycodone [OxyContin] 10 mg tablet,oral only,ext.rel.12 hr 10 mg PO BID 3 Days Qty: 6 0RF metformin 500 mg tablet 1,000 mg PO BID 90 Days Qty: 360 2RF (DME) blood-glucose meter [OneTouch Verio Flex meter] Misc See Rx Instructions .Route Qty: 1 0RF Rx Instructions: Check blood sugar 1-2 times daily (DME) OneTouch Verio test strips Strip See Rx Instructions .Route Qty: 100 3RF Rx Instructions: Test blood sugar once daily and as needed (DME) lancets [OneTouch UltraSoft 2 Lancet] 30 gauge misc See Rx Instructions .Route Qty: 100 3RF Rx Instructions: Test blood sugar once daily and as needed aspirin [Ecotrin Low Strength] 81 mg tablet,delayed release (DR/EC) 81 mg PO QAM pantoprazole 40 mg tablet,delayed release (DR/EC) 40 mg PO QPM fluticasone furoate-vilanterol [Breo Ellipta] 100-25 mcg/dose blister with device 1 inh INHALATION QAM polyethylene glycol 3350 [Miralax] 17 gram Powder In Packet 17 g PO BID Qty: 30 0RF docusate sodium 100 mg Capsule 100 mg PO BID Qty: 30 0RF dulaglutide 4.5 mg/0.5 mL pen injector 4.5 mg subcut Q7D Rx Instructions: please inject 4.5mg once every MONDAY ipratropium-albuterol 0.5 mg-3 mg(2.5 mg base)/3 mL solution for nebulization 3 ml NEB Q6H nicotine [Nicoderm CQ] 21 mg/24 hr Patch 24 Hour 21 mg transdermal QAM Qty: 7 0RF diclofenac sodium [Arthritis Pain (diclofenac)] 1 % gel 4 g topical QID PRN (Reason: Pain) Qty: 100 0RF furosemide 40 mg tablet 80 mg PO QPM Patient Comments: takes 120mg daily Rx Instructions: MAY TAKE AN EXTRA 40MG DAILY, NEEDED, FOR WEIGHT GAIN. albuterol sulfate 90 mcg/actuation HFA aerosol inhaler 2 puff INHALATION Q6H PRN (Reason: Shortness Of Breath Or Wheezing) Nurtec ODT 75 mg tablet,disintegrating 75 mg PO UD PRN (Reason: Migraine Headache) Rx Instructions: 75 mg PO take one tablet at migraine onset as directed; Discontinued enoxaparin 120 mg/0.8 mL syringe 120 mg subcut Q12H Qty: 10 0RF Rx Instructions: Take on days as directed by [facility] anticoagulation clinic Discharge Orders: Discharge Order (Routine); Ordered 11/24/23 Ordered By: Bobo Cheney Admission Data Admit Date/Time: 11/21/23 12:40 Attending Provider: Bobo Cheney Admit Provider: Bobo Cheney Primary Care Provider: Sugar Weber Other Providers: Booker Hall; [facility]
[2023-11-24] MEDS: FLUTICASONE/VILANTEROL 100/25MCG 14 PUFFS/INHALER INH SCH (08:19)
[2023-11-24] MEDS: NICOTINE 21 MG/24 HR TDSY TD SCH (08:19)
[2023-11-24] MEDS: PREGABALIN 150 MG CAP PO SCH ×2 (08:24→13:44)
[2023-11-24] MEDS: POTASSIUM CHLORIDE CRTAB 20 MEQ TABCR PO SCH ×2 (08:24→13:44)
[2023-11-24] MEDS: oxyCODONE HCL 10 MG TABCR (OxyCONTIN) PO SCH (08:24)
--- NOTE | 2023-11-24 08:58 | XRay Report ---
LUMBAR SPINE 3 VIEWS CLINICAL HISTORY: Fall. Recent lumbar spinal surgery. FINDINGS: Three views of the lumbar spine are compared to study dated 08/21/2018. The skeletal struct ures are osteopenic. There is no radiographic evidence of acute fracture or malalignment. Vertebral b nancy height and alignment are maintained throughout the lumbar spine. There has been discectomy at L3- L4, L4-L5, and L5-S1 with laminectomy and posterior fusion at L3-S1. Interpedicular screws are presen t at all levels. The orthopedic hardware appears intact. Interposition bone graft material has been p laced. A surgical drain is in place. The transverse processes are grossly intact. Anterior and latera l marginal osteophytes are seen throughout. The visualized bony pelvis appears intact. There is degen erative sclerosis of the sacroiliac joints. No bowel obstruction is seen. IMPRESSION: 1. No acute bony abnormality is seen involving the lumbar spine. 2. Degenerative and postsurgical change as above. Dictated: 11/24/2023 8:02 AM Transcribed: 11/24/2023 8:30 AM José [id number] [email or web address] Electronically signed by: Marin De La Rosa M.D. 11/24/2023 8:57 AM
[2023-11-24] MEDS ORDERED: LANTUS PER UNIT CHARGE SC SCH ×2 (09:00)
--- NOTE | 2023-11-24 15:30 | Hospitalist Progress Note ---
Date of Service November 24, 2023 Assessment & Plan (1) S/P spinal surgery: Plan: POD #3 - s/p L3-S1 lumbar decompression with Dr. Cheney (11/21/2023) Postop lumbar spine x-ray revealed hardware intact repeat x-rays from last pm after a minor fall show intact hardware Dr Cheney aware of the fall and the x-rays she will have home PT, OT she will d/c home today - will f/u with Dr Cheney in about 2 weeks see below re: anticoagulation (2) Hypertension: Plan: Can resume ARB Continue metoprolol Continue usual po lasix 80mg/day (3) Chronic systolic (congestive) heart failure: Plan: Echo on 10/27/23 revealed LVEF at 55-60% Looks compensated today Continue usual cardiac meds (4) Acute on chronic heart failure with preserved ejection fraction: Plan: volume status acceptable today mild CHF flare resolved cont beta irene, ARB, and lasix PO (5) Chronic pain syndrome: Plan: Continue Lyrica (6) Diabetes mellitus, type 2: Plan: Last A1c at 8.5% on 08/10/2023 Resume metformin, dulaglutide (Trulicity) stop insulins T2DM diet BSG ACHS at home (7) History of tobacco abuse: Plan: Nicotine patch needs smoking cessation (8) GERD (gastroesophageal reflux disease): Plan: Continue pantoprazole (9) History of pulmonary embolism: Plan: In 2021; on warfarin Patient was transitioned by anticoagulation clinic to Lovenox 120 mg SQ q12h pre-operatively and was taking it from 11/18 - 11/20 resume warfarin today -- see below (10) Obstructive sleep apnea on CPAP: Plan: CPAP HS (11) Hyperlipidemia: Plan: Continue atorvastatin (12) Depression: Plan: Continue duloxetine (13) Acute blood loss anemia: Plan: 3 gram drop from admission repeat H/H stable today (low 8's hemoglobin) will give IV venofer 300mg IV x 1 today f/u with PCP for the anemia - may need additional IV iron in the future as outpatient (14) History of mitral valve replacement with mechanical valve: Plan: on chronic warfarin, INR goal 2.5 to 3.5 [facility] valve closure sound on examination spoke extensively with Dr Cheney from ortho spoke extensively with Dr Lozano from the anticoagulation clinic plan - * resume lovenox injections - 120mg BID starting TOMORROW am, 11/26/23 * I specifically discussed the lovenox with Dr Cheney; she is pod #4 tomorrow and bleeding risk is low - thus, ok to resume lovenox tomorrow * coumadin - 15mg today, 15mg on 11/25, 15mg on 11/26, and then have INR checked via home health on 11/27/23 * the INR on 11/27/23 will be forwarded to Dr Lozano for her review to determine ongoing coumadin dosing * she has scheduled f/u with the coumadin clinic on 12/05/23 all of the above recommendations were placed in the written d/c instructions today patient voiced understanding of plan of care Plan ok for d/c home from medical standpoint Thank you for allowing us to participate in Ms Thomson's care Will schedule a f/u visit with her PCP in 1 week Admission and Anticipated Discharge Date Admission Date: November 21, 2023 Subjective patient to be d/c home today she is overall feeling ok had bowel movement this am is ambulating had a fall last pm - x-rays of operative site neg for fracture she will have home PT, OT and nursing following my bedside visit I spoke with Dr Cheney regarding her anticoagulation he is ok with starting lovenox bridge TOMORROW, 11/25/23 - she will take 120mg BID until therapeutic with coumadin spoke with Dr Lozano from anticoagulation clinic -- plan for coumadin - 15mg today, 15mg on 11/25, 15mg on 11/26, then INR check on 11/27 in the am which will dictate dosing thereafter she is aware we will be bridging with therapeutic lovenox Review of Systems Review of Systems: cv - no orthopnea, no chest pain pulm - no dyspnea at rest; although she has wheezing her symptoms are at baseline GI - no N/V neuro - radicular pains in legs resolved musculo - ongoing surgical back pain Physical Exam Physical Exam: gen - obese, NAD, looks well neck - no JVD mouth - MMM heart - mech valve closure sound, RRR, s1 s2 lungs - mild diffuse wheezing all lung segments, good airation; no rales abd - soft NT ND BS+ ext - no edema, pulses 2+ b/l skin - dressings intact lower back Results & Data Results & Data Vital Signs (Past 12 Hours) Vital Signs Temp Pulse Pulse Pulse Pulse Resp BP 11/24/23 15:13 36.7 C 67 16 123/68 11/24/23 13:18 71 18 11/24/23 12:07 36.8 C 80 19 144/66 H 11/24/23 10:41 36.8 C 82 20 11/24/23 10:25 37.3 C 80 78 80 85 17 152/74 H 11/24/23 09:50 37.3 C 80 17 152/74 H 11/24/23 07:42 36.6 C 81 17 142/80 H 11/24/23 07:41 78 18 BP Pulse Ox O2 Del Method 11/24/23 15:13 97 Room Air 11/24/23 13:18 93 Room Air 11/24/23 12:07 95 Room Air 11/24/23 10:41 142/68 H 95 Room Air 11/24/23 10:25 96 11/24/23 09:50 96 Room Air 11/24/23 07:42 96 Room Air 11/24/23 07:41 94 Room Air Laboratory Results Laboratory Results 11/21/23 11/23/23 11/23/23 09:08 11:37 16:28 WBC RBC Hgb Hct MCV MCH MCHC RDW Std Deviation RDW Coeff of Majo Plt Count MPV Sodium Potassium Chloride Carbon Dioxide Anion Gap BUN Creatinine Est Cr Clr Drug Dosing Est GFR ( Amer) Est GFR (Non-Af Amer) BUN/Creatinine Ratio Glucose POC Glucose 187 H 265 H Calcium Crossmatch See Detail 11/23/23 11/24/23 11/24/23 20:23 07:04 07:34 WBC 15.48 H RBC 2.87 L Hgb 8.1 L Hct 26.2 L MCV 91.3 MCH 28.2 MCHC 30.9 L RDW Std Deviation 53.6 H RDW Coeff of Majo 16.3 H Plt Count 167 MPV 12.2 Sodium 139 Potassium 4.4 Chloride 105 Carbon Dioxide 28 Anion Gap 6 BUN 20 Creatinine 0.72 Est Cr Clr Drug Dosing 108.3 Est GFR ( Amer) 106.2 Est GFR (Non-Af Amer) 91.7 BUN/Creatinine Ratio 27.8 H Glucose 117 H POC Glucose 172 H 124 H Calcium 9.2 Crossmatch 11/24/23 11:45 WBC RBC Hgb Hct MCV MCH MCHC RDW Std Deviation RDW Coeff of Majo Plt Count MPV Sodium Potassium Chloride Carbon Dioxide Anion Gap BUN Creatinine Est Cr Clr Drug Dosing Est GFR ( Amer) Est GFR (Non-Af Amer) BUN/Creatinine Ratio Glucose POC Glucose 130 H Calcium Crossmatch PG Care Time/CCT Total # of Minutes Spent Total Time Spent with Patient: Total time spent is greater than 50% in coordination of care (as documented) at patient's floor/unit and/or counseling patient: Coding Level of Care Code 26578 SUB INP/OBS CARE 3/50MIN Diagnoses S/P spinal surgery Z98.890 Essential hypertension I10 Hypertension type: essential hypertension Chronic systolic (congestive) heart failure I50.22 Acute on chronic heart failure with preserved ejection fraction I50.33 Chronic pain syndrome G89.4 Type 2 diabetes mellitus with hyperglycemia, with long-term current use of insulin E11.65; Z79.4 Diabetes mellitus complication status: with hyperglycemia Diabetes mellitus terminal clerk insulin use: with fdc use History of tobacco abuse Z87.891 GERD (gastroesophageal reflux disease) K21.9 History of pulmonary embolism Z86.711 Obstructive sleep apnea on CPAP G47.33; Z99.89 Hyperlipidemia, unspecified hyperlipidemia type E78.5 Hyperlipidemia type: unspecified Depression, unspecified depression type F32.9 Depression Type: unspecified Acute blood loss anemia D62 History of mitral valve replacement with mechanical valve Z95.2 (2) Hypertension Hypertension type: essential hypertension Qualified Code(s): I10 - Essential (primary) hypertension (6) Diabetes mellitus, type 2 Diabetes mellitus complication status: with hyperglycemia Diabetes mellitus terminal clerk insulin use: with terminal clerk use Qualified Code(s): E11.65 - Type 2 diabetes mellitus with hyperglycemia; Z79.4 - long-term (current) use of insulin (11) Hyperlipidemia Hyperlipidemia type: unspecified Qualified Code(s): E78.5 - Hyperlipidemia, unspecified (12) Depression Depression Type: unspecified Qualified Code(s): F32.9 - Major depressive disorder, single episode, unspecified
[2023-11-24] MEDS ORDERED: WARFARIN SOD 7.5 MG TAB PO ONE (16:00)
== END 2023-11-24 16:52 | disposition home health service (06) | DRG 453 ==
LOC: ASU 08:42 → 3N 12:40

== ENCOUNTER 2023-11-28 10:50 | Inpatient (IN) ==
--- NOTE | 2023-11-28 11:14 | Emergency Department Note ---
Impression & Plan Intractable low back pain, Weakness, Elevated CPK, Neurogenic claudication due to lumbar spinal stenosis, S/P spinal surgery ED Provider Note NAME: CYRUS HALL AGE: 58 SEX: F ARRIVES VIA: Ambulance INFORMANT: Patient ED PROVIDER(S): Chino James MD CHIEF COMPLAINT: Back pain, weakness. PLAN: Disposition: Admit MEDICAL DECISION MAKING: The patient is a pleasant 58-year-old woman with a past medical history of chronic back pain who is status post lumbar decompression on 11/21 discharged on 11/24 who presents to the emergency department with ongoing low back pain and weakness in her legs which she reports has been present since her discharge. She reports she did fall once when she was in the hospital and had unremarkable follow-up x-rays. Since being home she reports she fell several more times when attempting to walk with her walker and was overcome with weakness in her legs and collapsed. She denies hitting her head or losing consciousness. On my evaluation the patient is uncomfortable intermittently tearful but no acute distress, afebrile with stable vital signs. She has reproducible pain with plantarflexion bilaterally. Reflexes within normal limits. L5 is intact bilaterally. The patient's lumbar incision site is clean dry and intact. No erythema, warmth, induration or edema. WBC and platelets within normal limits. H/H similar to prior. Chemistry without metabolic acidosis. CPK is 1022 in the setting of recent surgery and her report of several falls. TSH within normal limits. Case was discussed with ortho-spine (patient's surgeon) Dr. Cheney. Appreciate consultation and recommendations. Agrees with CT imaging to further evaluate the patient's fall. Plan will be to admit the patient for pain management and likely rehab placement which has been offered to the patient but the patient had declined. CT of the abdomen pelvis and lumbar spine was subsequently performed. Nondisplaced fractures of bilateral L3 transverse process fractures are described which may be postoperative versus recent trauma. The patient was treated with IV fluid hydration as well as IV APAP and IV morphine for pain control. Further management per admitting team/ortho-spine. Triage Nursing notes reviewed and agree them. Prior/external medical records reviewed Vital Signs: reviewed Differential diagnosis: Musculoskeletal, disc herniation, fracture, metastatic disease, cord compression, discitis, sciatica, cauda equina, infection, aortic disease, renal colic, gastrointestinal, as well as other pathologies. ER treatment provided: See below. Diagnostics interpreted by me: Cardiac Monitoring: An order for continuous cardiac monitoring was placed and demonstrated normal sinus rhythm, 76 bpm, no ectopy Laboratory studies: See below Imaging studies: See below Consultation(s): Dr. Cheney, orthopedic spine. HPI: The patient is a pleasant 58-year-old woman with a past medical history of chronic back pain who is status post lumbar decompression on 11/21 discharged on 11/24 who presents to the emergency department with ongoing low back pain and weakness in her legs which she reports has been present since her discharge. She reports she did fall once when she was in the hospital and had unremarkable follow-up x-rays. Since being home she reports she fell several more times when attempting to walk with her walker and was overcome with weakness in her legs and collapsed. She denies hitting her head or losing consciousness. ROS: See above HPI for pertinent positives & negatives. A total of 10 systems reviewed and were otherwise negative. VITALS:See Below PHYSICAL EXAMINATION: GENERAL: Awake, alert, uncomfortable-appearing, in no distress, BMI 41.3 HENT: Normocephalic, atraumatic. Oropharynx with dry mucous membranes and otherwise unremarkable. EYES: Normal conjunctiva. Sclera non-icteric. NECK: Supple. No nuchal rigidity. FROM. No JVD. RESPIRATORY: Clear to auscultation. CARDIAC: Regular rate, normal rhythm. Extremities warm and well perfused. Pulses equal. ABDOMEN: Soft, non-distended. No tenderness to palpation. No rebound or guarding. No masses. MUSCULOSKELETAL: Chest examination reveals no tenderness. There is no CVA tenderness to palpation. The patient's lumbar incision site is clean dry and intact. No erythema, warmth, induration or edema. LOWER EXTREMITIES: Calves are equal size bilaterally and non-tender. No edema. No discoloration. NEURO: Reproducible pain with plantarflexion bilaterally. Reflexes within normal limits. L5 is intact bilaterally. SKIN: No rash or jaundice noted. Chino James MD Past Med/Surg History Medical History Chronic systolic (congestive) heart failure Hypertension Mitral valve disease s/p MVR 08/2022, [place] Lumbar disc herniation with radiculopathy Lumbar spinal stenosis Acute lumbar radiculopathy Lumbar facet joint syndrome Postoperative keloid scar sternal Atrial fibrillation History of COVID-19 2020- no hospitalized, "moderate symptoms" > resolved Asthma-COPD overlap syndrome History of pulmonary embolism 2021, taking Warfarin Chronic diastolic congestive heart failure GERD (gastroesophageal reflux disease) Hx of coronary artery disease Stents x2 (2010) CSF leak Remote hx > "resolved" per patient Degeneration of cervical intervertebral disc External hemorrhoids Hemiplegic migraine Obstructive sleep apnea on CPAP Diabetes mellitus, type 2 Hyperlipidemia Vertebral artery stenosis Surgical History Status post left foot surgery Hx of arthroscopy of right knee History of facial surgery 2014, reconstruction sx. of jaw/face>no problems opening mouth since surgery History of open reduction and internal fixation (ORIF) procedure Left tibia, hardware intact History of mitral valve replacement with mechanical valve 08/2022, [facility] History of transesophageal echocardiography (GEORGETTE) 05/2022 History of hemorrhoidectomy ~2017, [facility] S/P left knee arthroscopy History of bilateral tubal ligation Status post right foot surgery History of esophagogastroduodenoscopy (EGD) History of colonoscopy History of heart artery stent Stents x2 (2010) History of cardiac cath ~2010- stents x2 ~2014 ([place])- no stents 04/2022- no stents Family History Mother Breast cancer, Onset Age: 64 Type 2 diabetes mellitus Father Diabetes Coronary heart disease Type 2 diabetes mellitus Myocardial infarction, Onset Age: 52 Family/Other Hypertension sibling Grandmother (Maternal) Cancer Grandfather (Maternal) Cancer Denies family history of Ovarian cancer Social History Smoking Status: Current every day smoker Tobacco Type: Cigarettes Age Started Using Tobacco: 13; Age Quit Using Tobacco: 58; packs per day: 0.5; Cigarettes Per Day: 8-10 cigs/day; Second Hand Exposure: No; Do You Dip or Chew Tobacco: No; Hx Alcohol Use: No Hx Substance Use: No Preferred Language: Monegasque Communication Ability: Effective Visual Impairment: No Limitations Hearing Ability: Normal Registered Public Surveyor Required: No Beliefs That Will Affect Care: None marital status: Current Living Situation: Spouse Current Living Situation Comment: Home with current occupational status: disabled How many Children do You have: 5 Other Information That Helps Us Care for You: No Feels Safe at Home: Yes Safety Concerns: Feels Safe At This Time Childhood Exposure to Second-Hand Smoke: No Diet: low salt caffeine: Yes (1/2 cup of coffee a day) during the past year weight has: remained stable Dental Care, Regularly: No Physical Activity Frequency: 1-2 Times per Week Seatbelt Use: always Sunscreen Use: No Assistive Devices: Glasses and Walker Allergies Allergies Allergy/AdvReac Type Severity Reaction Status Date / Time No Known Allergies Allergy Verified 11/14/23 09:40 Home Meds Home Medications Medication Instructions Recorded Confirmed aspirin 81 mg tablet,delayed 81 mg PO QAM 07/24/23 11/28/23 release (Ecotrin Low Strength) fluticasone furoate 100 1 inh inhalation QAM 07/24/23 11/28/23 mcg-vilanterol 25 mcg/dose inhalation powder (Breo Ellipta) pantoprazole 40 mg tablet,delayed 40 mg PO QPM 07/24/23 11/28/23 release potassium chloride 10 mEq 20 meq PO TID 09/26/23 11/28/23 capsule,extended release dulaglutide 4.5 mg/0.5 mL 4.5 mg subcut Q7D 10/26/23 11/28/23 subcutaneous pen injector (Trulicity) ipratropium 0.5 mg-albuterol 3 mg 3 ml NEB Q6H 10/26/23 11/28/23 (2.5 mg base)/3 mL nebulization soln albuterol sulfate 90 mcg/actuation 2 puff inhalation Q6H PRN 11/07/23 11/28/23 aerosol inhaler Shortness Of Breath Or Wheezing furosemide 40 mg tablet 80 mg PO QPM 11/07/23 11/28/23 rimegepant 75 mg disintegrating 75 mg PO UD PRN Migraine Headache 11/07/23 11/28/23 tablet (Nurtec ODT) Previous Rx's Medication Instructions Recorded Bedside Commode #1 ea 08/04/22 Hospital Bed Homecare #1 ea 08/12/22 hydrocortisone 1 %-pramoxine 1 % 1 applic MI BID PRN hemorrhoids 05/17/23 rectal foam (Proctofoam HC) #10 grams ipratropium bromide 17 2 puff inhalation TID #12.9 grams 05/17/23 mcg/actuation HFA aerosol inhaler (Atrovent HFA) losartan 25 mg tablet 25 mg PO QAM 90 days #90 tabs 05/17/23 metoprolol succinate 25 mg 25 mg PO QAM 90 days #90 tabs 05/17/23 tablet,extended release 24 hr atorvastatin 40 mg tablet 40 mg PO QPM 90 days #90 tabs 06/19/23 pregabalin 150 mg capsule 150 mg PO TID 30 days #90 caps 07/07/23 blood-glucose meter (OneTouch #1 ea 07/13/23 Verio Flex Meter) lidocaine 5 % topical patch 1 patch topical DAILY #15 ea 07/16/23 (Lidoderm) blood sugar diagnostic (OneTouch #100 ea 07/27/23 Verio test strips) lancets 30 gauge (OneTouch #100 ea 07/27/23 UltraSoft 2 Lancet) nitroglycerin 0.4 mg sublingual 0.4 mg sublingual Q5M PRN Chest 08/09/23 tablet Pain #30 tabs Stair [place] #1 ea 08/10/23 metformin 500 mg tablet 1,000 mg (2 x 500 mg) PO BID 90 09/12/23 days #360 tabs docusate sodium 100 mg capsule 100 mg PO BID #30 caps 09/25/23 polyethylene glycol 3350 17 gram 17 g PO BID #30 ea 09/25/23 oral powder packet (Miralax) cyclobenzaprine 5 mg tablet 5 mg PO BID PRN muscle spasm 30 10/26/23 days #20 tabs duloxetine 30 mg capsule,delayed 30 mg PO QAM 30 days #30 caps 10/26/23 release diclofenac sodium 1 % topical gel 4 g topical QID PRN Pain #100 grams 10/27/23 (Arthritis Pain (diclofenac)) nicotine 21 mg/24 hr daily 21 mg transdermal QAM #7 ea 10/27/23 transdermal patch (Nicoderm CQ) acetaminophen 500 mg tablet 1,000 mg (2 x 500 mg) PO BID #60 10/31/23 (Tylenol Extra Strength) tabs oxycodone 10 mg tablet,crush 10 mg PO BID 3 days #6 tabs 10/31/23 resistant,extended release 12 hr (OxyContin) pneumoc 20-derick conj-dip cr(PF) 0.5 0.5 ml IM ONCE #0.5 mL 10/31/23 mL IM syringe (Prevnar 20 (PF)) oxycodone 5 mg tablet 5 mg PO Q6H PRN pain #30 tabs 11/23/23 enoxaparin 120 mg/0.8 mL 120 mg (0.8 mL) subcut Q12H 7 days 11/24/23 subcutaneous syringe (Lovenox) #11.2 mL warfarin 5 mg tablet See Rx Instructions PO UD #30 tabs 11/24/23 Results & Data (ED) Vital Signs Vital Signs - 24 hr 11/28/23 10:59 11/28/23 10:59 11/28/23 11:12 Temperature 36.7 C Temperature Source Temporal Artery Scan Pulse Rate 68 78 Pulse Rate [Apical] 96 H Respiratory Rate 16 16 Blood Pressure 153/49 H Blood Pressure [Left Arm] Blood Pressure Mean 83 Blood Pressure Mean [Left Arm] Pulse Oximetry 93 93 Oxygen Delivery Method Room Air Room Air Sepsis Recent Fever Within 48 Hours No Sepsis New/Unexplained Change in Mental Status N/A Sepsis Action Taken by Nursing No Action Required 11/28/23 12:43 Temperature Temperature Source Pulse Rate Pulse Rate [Apical] 78 Respiratory Rate 16 Blood Pressure Blood Pressure [Left Arm] 141/68 H Blood Pressure Mean Blood Pressure Mean [Left Arm] 92 Pulse Oximetry 92 Oxygen Delivery Method Sepsis Recent Fever Within 48 Hours Sepsis New/Unexplained Change in Mental Status Sepsis Action Taken by Nursing Laboratory Data Attestation: I reviewed the patient's lab results. 11/28/23 12:47 11/28/23 12:47 Lab Results 11/28/23 Range/Units 12:47 WBC 10.28 (4.8-10.8) K/ul RBC 3.31 L (4.20-5.40) M/uL Hgb 9.5 L (12.0-16.0) g/dl Hct 29.2 L (37.0-47.0) % MCV 88.2 (80.0-100.0) fL MCH 28.7 (25.0-34.0) pg MCHC 32.5 (32.0-36.0) g/dL RDW Std Deviation 50.6 H (36.4-46.3) fL RDW Coeff of Majo 16.3 H (11.5-14.5) % Plt Count 254 (130-400) K/uL MPV 11.7 (9.4-12.4) fL Immature Gran % (Auto) 0.3 % Neut % (Auto) 67.7 % Lymph % (Auto) 26.8 % [place] % (Auto) 3.8 % Eos % (Auto) 1.2 % Baso % (Auto) 0.2 % Neut # (Auto) 6.97 H (1.40-6.50) K/uL Lymph # (Auto) 2.75 (1.20-3.40) K/uL [place] # (Auto) 0.39 (0.11-0.59) K/uL Eos # (Auto) 0.12 (0.00-0.50) K/uL Baso # (Auto) 0.02 (0.00-0.20) K/uL Immature Gran # (Auto) 0.03 (0.01-0.20) K/uL Absolute Nucleated RBC 0.03 (0.00-0.12) K/uL Nucleated RBC % (auto) 0.3 % PT 13.6 H (9.0-12.0) Seconds INR 1.3 H (0.9-1.1) Heparin Anti-Xa, LM Wt < 0.10 (< 0.10) IU/ML Sodium 142 (136-145) mmol/L Potassium 3.3 L (3.5-5.1) mmol/L Chloride 107 (98-107) mmol/L Carbon Dioxide 30 (21-32) mmol/L Anion Gap 5 (3-11) BUN 13 (6-23) mg/dl Creatinine 0.65 (0.6-1.2) mg/dl Est Cr Clr Drug Dosing 120.6 ml/min Est GFR ( Amer) 112.6 ml/min Est GFR (Non-Af Amer) 97.2 ml/min BUN/Creatinine Ratio 20.0 (10-20) Glucose 107 H (70-99(Fasting)) mg/dl Calcium 8.6 (8.6-10.3) mg/dl Phosphorus 3.1 (2.5-4.9) mg/dl Magnesium 1.9 (1.7-2.4) mg/dl Total Bilirubin 0.4 (0.2-1.0) mg/dl AST 31 (13-39) U/L ALT 18 (7-52) U/L Alkaline Phosphatase 102 (34-104) U/L Total Creatine Kinase 1022 H (26-192) U/L Total Protein 6.1 (6.0-8.3) gm/dl Albumin 2.9 L (3.4-5.0) gm/dl Globulin 3.2 (2.5-4.0) gm/dl Albumin/Globulin Ratio 0.9 (0.9-2) TSH 0.641 (0.300-4.500) uIu/ml Administered Medications Enoxaparin Sodium (Enoxaparin Inj 120 Mg/0.8 Ml Syr) 120 mg SQ Q12H [facility] Stop: 12/28/23 16:15 Last Admin: 11/28/23 18:19 Dose: Not Given Documented By: YVETTE Hydromorphone HCl (Hydromorphone Inj 1 Mg/Ml Syringe) 1 mg IV Q3H PRN PRN Reason: severe pain (scale 7-10) Stop: 12/12/23 16:15 Last Admin: 11/28/23 18:16 Dose: 1 mg Documented By: YVETTE Sodium Chloride (Nss) 1,000 mls @ 75 mls/hr IV .[id number] [facility] Stop: 12/28/23 16:15 Last Admin: 11/28/23 18:18 Dose: 75 mls/hr Documented By: YVETTE Insulin Aspart (Insulin Aspart Per Unit Charge) 0 units SC ACHS [facility] Stop: 12/28/23 17:14 Last Admin: 11/28/23 17:26 Dose: Not Given Documented By: OMAR Co-signed By: CON Potassium Chloride (Potassium Chloride Crtab 20 Meq Tabcr) 20 meq PO TID [facility] Stop: 12/28/23 16:15 Last Admin: 11/28/23 18:19 Dose: 20 meq Documented By: YVETTE Pregabalin (Pregabalin 150 Mg Cap) 150 mg PO TID [facility] Stop: 12/28/23 16:15 Last Admin: 11/28/23 18:21 Dose: 150 mg Documented By: YVETTE Discontinued Medications Hydromorphone HCl (Hydromorphone Inj 1 Mg/Ml Syringe) Confirm Administered Dose 1 mg .ROUTE .STK-MED ONE Stop: 11/28/23 15:43 Last Admin: 11/28/23 15:46 Dose: 1 mg Documented By: OMAR Sodium Chloride (Nss) 500 mls @ 125 mls/hr IV .Q4H [facility] Stop: 12/28/23 11:14 Last Infusion: 11/28/23 18:39 Dose: Infused Documented By: Admin: 11/28/23 15:46 Dose: 125 mls/hr Documented By: Infusion: 11/28/23 15:43 Dose: Infused Documented By: Admin: 11/28/23 11:43 Dose: 125 mls/hr Documented By: SANDIP Acetaminophen (Ofirmev) 1,000 mg in 100 mls @ 400 mls/hr IV NOW STA Stop: 11/28/23 11:48 Last Infusion: 11/28/23 12:44 Dose: Infused Documented By: Admin: 11/28/23 11:43 Dose: 400 mls/hr Documented By: SANDIP Ioversol (Optiray 320 500ml) 88 ml IV ONCE ONE Stop: 11/28/23 13:49 Last Admin: 11/28/23 13:40 Dose: 88 ml Documented By: ARCADIO Morphine Sulfate (Morphine Sulfate 10 Mg/Ml Carp/Vial) 6 mg IV NOW STA Stop: 11/28/23 11:35 Last Admin: 11/28/23 11:43 Dose: 6 mg Documented By: SANDIP Morphine Sulfate (Morphine Sulfate 10 Mg/Ml Carp/Vial) 6 mg IV NOW STA Stop: 11/28/23 13:31 Last Admin: 11/28/23 13:32 Dose: 6 mg Documented By: SANDIP Warfarin Sodium (Warfarin Sod 5 Mg Tab) 15 mg PO ONE ONE Stop: 11/28/23 16:17 Last Admin: 11/28/23 18:15 Dose: 15 mg Documented By: YVETTE Imaging Data Radiologist's Impression: Abdomen/Pelvis CT 11/28/23 13:[address] WITH IV CONTRAST HISTORY: Acute low back pain status post fall pain fall TECHNIQUE: Multiaxial CT images of the abdomen and pelvis were performed following the IV administration of 88 cc of Optiray, A dose lowering technique was utilized adhering to the principles of ALARA. COMPARISON STUDY: Lumbar spine CT of same day, CT abdomen and pelvis 09/22/2023, fluoroscopic images 11/21/2023 FINDINGS: No acute abnormality identified within the imaged lower chest. Mild subsegmental bibasilar atelectasis versus scarring. No free air. The study is mildly degraded by respiratory motion. Unremarkable spleen, pancreas and left adrenal gland. Unchanged mild nodular right adrenal gland thickening. Unremarkable liver which is mildly enlarged. Distended gallbladder. Unremarkable kidneys. No hydronephrosis. Unremarkable urinary bladder, uterus and adnexa. Atherosclerosis of the aorta without aneurysm. No lymphadenopathy. No bowel obstruction or bowel wall thickening. No ascites or mesenteric inflammation. Normal appendix. Posterior decompression and fusion at L3-S1 with pedicle screws and rods. The hardware appears intact. Nondisplaced fractures within the bilateral L3 transverse processes appear acute. No subluxation identified. Subcutaneous fluid collection within the lumbar region could be due to the postoperative change. Punctate foci of gas at the laminectomy sites is also likely due to the recent postoperative change. IMPRESSION: 1. No acute posttraumatic intra-abdominal or intrapelvic abnormality. 2. Postoperative changes of the lumbar spine as above with acute nondisplaced bilateral L3 transverse process fractures, possibly postsurgical. 3. Please refer to the CT lumbar spine study of same day for additional findings. 4. Distended gallbladder could be correlated with ultrasound if of further clinical concern. ACT 112: Negative or not required by law. The above report was generated using voice recognition software. It may contain grammatical, syntax or spelling errors. Electronically signed by: Errol Cruz M.D. 11/28/2023 2:[address] 11/28/23 13:07 CT lumbar spine w con CT DOSE: 1437.03 mGy.cm CLINICAL HISTORY: pain fall . Low back pain. TECHNIQUE: Multiaxial CT images of the lumbar spine were performed following the intravenous administration of contrast and reformatted in the sagittal and coronal planes. A dose lowering technique was utilized adhering to the principles of ALARA. COMPARISON STUDY: Lumbar spine CT 09/22/2023. FINDINGS: Posterior decompression and fusion at L3-S1 with pedicle screws and rods. The hardware appears intact. Nondisplaced fractures within the bilateral L3 transverse processes. No additional fractures within the lumbar spine. No subluxation. The sacrum is intact. Subcutaneous fluid collection within the lumbar region could be due to the postoperative change. Punctate foci of gas at the laminectomy sites is also likely due to the recent postoperative change. Paravertebral soft tissues are unremarkable. The central canal was evaluated due to the CT technique and metallic artifact. IMPRESSION: 1. Nondisplaced fractures at the bilateral L3 transverse processes. These could be due to the recent postoperative change rather than the recent trauma. 2. Postoperative changes as described above. The hardware appears intact. 3. Subcutaneous fluid within the lumbar region is likely due to to the postoperative change. ACT 112: Negative or not required by law. Electronically signed by: Octaviano Garcia M.D. 11/28/2023 2:06 PM Discharge Plan Visit Data Chief Complaint: Back Injury/Pain Stated Complaint: BACK PAIN ED Provider: Chino James Discharge Problem: Intractable low back pain, Weakness, Elevated CPK, Neurogenic claudication due to lumbar spinal stenosis, S/P spinal surgery Patient Disposition: Admitted As Inpatient Discharge Instructions Interventions: ED Discharge Assessment Last Done: 11/28/23 16:16
[2023-11-28] MEDS: SODIUM CHLORIDE 0.9% 500 ML IV SCH (11:43)
[2023-11-28] MEDS: ACETAMINOPHEN 1,000 MG/100 ML VIAL IV STA (11:43)
[2023-11-28] MEDS: MoRPHine SULFATE 10 MG/ML CARP/VIAL IV STA ×2 (11:43→13:32)
[2023-11-28 13:26] LABS: Albumin Globulin Ratio 0.9 (0.9-2); Albumin Level 2.9 gm/dl (3.4-5.0); Bilirubin,Total 0.4 mg/dl (0.2-1.0); Calcium 8.6 mg/dl (8.6-10.3); Creatinine Clr Calc Pharmacy 120.6 ml/min; Est GFR (African American) 112.6 ml/min; Est GFR (Non-African American) 97.2 ml/min; Globulin 3.2 gm/dl (2.5-4.0); Magnesium 1.9 mg/dl (1.7-2.4); Phosphorus 3.1 mg/dl (2.5-4.9); Potassium 3.3 mmol/L (3.5-5.1); Total Protein 6.1 gm/dl (6.0-8.3)
[2023-11-28 13:28] LABS: Basophils # (auto) 0.02 K/uL (0.00-0.20); Basophils % (auto) 0.2 %; Eosinophils # (auto) 0.12 K/uL (0.00-0.50); Eosinophils % (auto) 1.2 %; Hematocrit (blood only) 29.2 % (37.0-47.0); Hemoglobin 9.5 g/dl (12.0-16.0); Immature Granulocytes # (auto) 0.03 K/uL (0.01-0.20); Immature Granulocytes % (auto) 0.3 %; Lymphocytes # (auto) 2.75 K/uL (1.20-3.40); Lymphocytes % (auto) 26.8 %; Mean Corpuscular Hemoglobin 28.7 pg (25.0-34.0); Mean Corpuscular Hgb Conc 32.5 g/dL (32.0-36.0); Mean Corpuscular Volume 88.2 fL (80.0-100.0); Mean Platelet Volume 11.7 fL (9.4-12.4); Monocytes # (auto) 0.39 K/uL (0.11-0.59); Monocytes % (auto) 3.8 %; Neutrophils # (auto) 6.97 K/uL (1.40-6.50); Neutrophils % (auto) 67.7 %; Nucleated RBC # (auto) 0.03 K/uL (0.00-0.12); Nucleated RBC % (auto) 0.3 %; Platelet Count 254 K/uL (130-400); RDW Coefficient of Variation 16.3 % (11.5-14.5); RDW Standard Deviation 50.6 fL (36.4-46.3); Red Blood Count 3.31 M/uL (4.20-5.40); White Blood Count 10.28 K/ul (4.8-10.8)
[2023-11-28 13:30] LABS: INR 1.3 (0.9-1.1); Prothrombin Time 13.6 Seconds (9.0-12.0)
[2023-11-28 13:37] LABS: Thyroid Stimulating Hormone 0.641 uIu/ml (0.300-4.500)
[2023-11-28] MEDS: OPTIRAY 320 500ml IV ONE (13:40)
--- NOTE | 2023-11-28 14:08 | CT Scan Report ---
CT lumbar spine w con CT DOSE: 1437.03 mGy.cm CLINICAL HISTORY: pain fall . Low back pain. TECHNIQUE: Multiaxial CT images of the lumbar spine were performed following the intravenous administ ration of contrast and reformatted in the sagittal and coronal planes. A dose lowering technique was utilized adhering to the principles of ALARA. COMPARISON STUDY: Lumbar spine CT 09/22/2023. FINDINGS: Posterior decompression and fusion at L3-S1 with pedicle screws and rods. The hardware appe ars intact. Nondisplaced fractures within the bilateral L3 transverse processes. No additional fractu res within the lumbar spine. No subluxation. The sacrum is intact. Subcutaneous fluid collection with in the lumbar region could be due to the postoperative change. Punctate foci of gas at the laminectom y sites is also likely due to the recent postoperative change. Paravertebral soft tissues are unremar kable. The central canal was evaluated due to the CT technique and metallic artifact. IMPRESSION: 1. Nondisplaced fractures at the bilateral L3 transverse processes. These could be due to the recent postoperative change rather than the recent trauma. 2. Postoperative changes as described above. The hardware appears intact. 3. Subcutaneous fluid within the lumbar region is likely due to to the postoperative change. ACT 112: Negative or not required by law. Electronically signed by: Octaviano Garcia M.D. 11/28/2023 2:06 PM
--- NOTE | 2023-11-28 14:30 | CT Scan Report ---
ABDOMEN AND PELVIS CT WITH IV CONTRAST HISTORY: Acute low back pain status post fall pain fall TECHNIQUE: Multiaxial CT images of the abdomen and pelvis were performed following the IV administrat ion of 88 cc of Optiray, A dose lowering technique was utilized adhering to the principles of ALARA. COMPARISON STUDY: Lumbar spine CT of same day, CT abdomen and pelvis 09/22/2023, fluoroscopic images FINDINGS: No acute abnormality identified within the imaged lower chest. Mild subsegmental bibasilar atelectasis versus scarring. No free air. The study is mildly degraded by respiratory motion. Unremar kable spleen, pancreas and left adrenal gland. Unchanged mild nodular right adrenal gland thickening. Unremarkable liver which is mildly enlarged. Distended gallbladder. Unremarkable kidneys. No hydronephrosis. Unremarkable urinary bladder, uterus and adnexa. Atheroscler osis of the aorta without aneurysm. No lymphadenopathy. No bowel obstruction or bowel wall thickening . No ascites or mesenteric inflammation. Normal appendix. Posterior decompression and fusion at L3-S1 with pedicle screws and rods. The hardware appears intact . Nondisplaced fractures within the bilateral L3 transverse processes appear acute. No subluxation id entified. Subcutaneous fluid collection within the lumbar region could be due to the postoperative ch estrella. Punctate foci of gas at the laminectomy sites is also likely due to the recent postoperative ch estrella. IMPRESSION: 1. No acute posttraumatic intra-abdominal or intrapelvic abnormality. 2. Postoperative changes of the lumbar spine as above with acute nondisplaced bilateral L3 transverse process fractures, possibly postsurgical. 3. Please refer to the CT lumbar spine study of same day for additional findings. 4. Distended gallbladder could be correlated with ultrasound if of further clinical concern. ACT 112: Negative or not required by law. The above report was generated using voice recognition software. It may contain grammatical, syntax o r spelling errors. Electronically signed by: Errol Cruz M.D. 11/28/2023 2:29 PM
[2023-11-28] MEDS: HYDROmorphone INJ 1 MG/ML SYRINGE ONE (15:46)
[2023-11-28] MEDS ORDERED: PHARMACY GLYCEMIC MGMT CONSULT PRN (16:16)
[2023-11-28] MEDS ORDERED: ONDANSETRON INJ 2 MG/ML 2 ML VIAL IV PRN (16:16)
[2023-11-28] MEDS ORDERED: NALOXONE HCL 0.4 MG/1 ML VIAL/CARP IV PRN (16:16)
[2023-11-28] MEDS ORDERED: PROMETHAZINE HCL 12.5 MG in SODIUM CHLORIDE 0.9% 50 ML IV PRN (16:16)
[2023-11-28] MEDS ORDERED: METOCLOPRAMIDE HCL INJ 5 MG/ML 2 ML VIAL IV PRN (16:16)
[2023-11-28] MEDS ORDERED: ONDANSETRON 4 MG OD TAB PO PRN (16:16)
[2023-11-28] MEDS ORDERED: ACETAMINOPHEN 500 MG TAB PO PRN (16:16)
[2023-11-28] MEDS ORDERED: ACETAMINOPHEN 1,000 MG/100 ML VIAL IV PRN (16:16)
[2023-11-28] MEDS ORDERED: NITROGLYCERIN SL 0.4 MG/TAB TAB SL PRN (16:16)
[2023-11-28 16:28] LABS: ANTI-Xa, LMWH(Low Molecular Wt < 0.10 IU/ML (< 0.10)
[2023-11-28] MEDS ORDERED: GLUCOSE 40% GEL 15 GM TUBE PO PRN (17:00)
[2023-11-28] MEDS ORDERED: GLUCAGON FOR INJ 1 MG VIAL IM PRN (17:00)
[2023-11-28] MEDS ORDERED: DEXTROSE 50% 50 ML SYRINGE IV PRN (17:00)
[2023-11-28] MEDS ORDERED: GLUCOSE 10 TAB/TUBE PO PRN (17:00)
[2023-11-28] MEDS: INSULIN ASPART PER UNIT CHARGE SC SCH (17:26)
[2023-11-28] MEDS: WARFARIN SOD 5 MG TAB PO ONE (18:15)
[2023-11-28] MEDS: HYDROmorphone INJ 1 MG/ML SYRINGE IV PRN (18:16)
[2023-11-28] MEDS: SODIUM CHLORIDE 0.9% 1,000 ML IV SCH (18:18)
[2023-11-28] MEDS: POTASSIUM CHLORIDE CRTAB 20 MEQ TABCR PO SCH (18:19)
[2023-11-28] MEDS: ENOXAPARIN INJ 120 MG/0.8 ML SYR SQ SCH (18:19)
[2023-11-28] MEDS: PREGABALIN 150 MG CAP PO SCH (18:21)
--- NOTE | 2023-11-28 18:58 | Hospitalist Consultation ---
Date of Consultation November 28, 2023 Assessment & Plan (1) Type 2 diabetes mellitus with obesity: Home medications held Basal bolus, ISS Resume home regimen on discharge (2) Chronic systolic (congestive) heart failure: States taking 120mg lasix daily, typically in evening Appears euvolemic, Will hold tonight, restart AM continue metoprolol (3) History of mitral valve replacement with mechanical valve: On warfarin, INR 1.3 today Recieved 1x warfarin dose load Continue until therapeutic (4) History of TIA (transient ischemic attack): Will continue ASA On Lovenox 120mg q12h if plan for return to OR will need to be held (5) Obstructive sleep apnea on CPAP: CPAP ordered (6) GERD (gastroesophageal reflux disease): Continue protonix (7) Hypertension: Restart losartan tomorrow (8) Hyperlipidemia: CK today 1022, will hold statin Recheck CK in AM (9) COPD (chronic obstructive pulmonary disease): Continue home regimen as ordered Supervising Physician Co-Signing Physician Notes Patient seen and examined, chart reviewed, case discussed with Pilar Ch and I agree with the assessment and plan as above except as otherwise noted Labs and images reviewed When he is seen at the bedside. She reports that she feels well after receiving additional pain control, is most comfortable laying on her left side. Denies lightheadedness, dizziness, fever, chills, chest pain. Did discuss anticoagulation and however underlying mechanical heart valve extensively. Her INR is subtherapeutic at 1.3 today and patient did not take her Lovenox this morning or this afternoon. Did discuss with orthopedic spine, low bleeding risk at this time without acute concerns for bleeding on imaging. She is at high risk for complications of subtherapeutic anticoagulation due to her indwelling mechanical heart valve. Discussed with patient, who is agreeable to resuming Lovenox until her INR is at or near goal of 2.53.5. She did receive 50 mg warfarin dose today. Continue Lovenox twice daily, INR daily. Otherwise agree with assessment and management above. History of Present Illness Reason for Consultation: Medical Management Requesting Physician: Bobo Cheney DO Attending Physician: Bobo Cheney DO History of Present Illness 58 yo female consult requested for medical management. PMHx T2DM, CHF, MVR on warfarin, TIA, SMITA on CPAP, GERD, Asthma, COPD. Readmitted 2/2 to multiple falls, weakness after lumbar decompression/fusion 11/21/23. Having increased pain despite ordered pain management when pt examined. Otherwise no complaints. No CP, SOB, N/V/D, LE edema. Medical conditions and treatment reviewed with patient. Allergies Allergy/AdvReac Type Severity Reaction Status Date / Time No Known Allergies Allergy Verified 11/14/23 09:40 Home Medications Medication Instructions Recorded Confirmed Type Bedside Commode #1 ea 08/04/22 11/20/23 Rx Hospital Bed Homecare #1 ea 08/12/22 11/20/23 Rx hydrocortisone 1 %-pramoxine 1 % 1 applic [place] BID PRN hemorrhoids 05/17/23 11/28/23 Rx rectal foam (Proctofoam HC) #10 grams ipratropium bromide 17 2 puff inhalation TID #12.9 grams 05/17/23 11/28/23 Rx mcg/actuation HFA aerosol inhaler (Atrovent HFA) losartan 25 mg tablet 25 mg PO QAM 90 days #90 tabs 05/17/23 11/28/23 Rx metoprolol succinate 25 mg 25 mg PO QAM 90 days #90 tabs 05/17/23 11/28/23 Rx tablet,extended release 24 hr atorvastatin 40 mg tablet 40 mg PO QPM 90 days #90 tabs 06/19/23 11/28/23 Rx pregabalin 150 mg capsule 150 mg PO TID 30 days #90 caps 07/07/23 11/28/23 Rx blood-glucose meter (OneTouch #1 ea 07/13/23 11/20/23 Rx Verio Flex Meter) lidocaine 5 % topical patch 1 patch topical DAILY #15 ea 07/16/23 11/28/23 Rx (Lidoderm) aspirin 81 mg tablet,delayed 81 mg PO QAM 07/24/23 11/28/23 History release (Ecotrin Low Strength) fluticasone furoate 100 1 inh inhalation QAM 07/24/23 11/28/23 History mcg-vilanterol 25 mcg/dose inhalation powder (Breo Ellipta) pantoprazole 40 mg tablet,delayed 40 mg PO QPM 07/24/23 11/28/23 History release blood sugar diagnostic (OneTouch #100 ea 07/27/23 11/20/23 Rx Verio test strips) lancets 30 gauge (OneTouch #100 ea 07/27/23 11/20/23 Rx UltraSoft 2 Lancet) nitroglycerin 0.4 mg sublingual 0.4 mg sublingual Q5M PRN Chest 08/09/23 11/28/23 Rx tablet Pain #30 tabs Stair [place] #1 ea 08/10/23 11/20/23 Rx metformin 500 mg tablet 1,000 mg (2 x 500 mg) PO BID 90 09/12/23 11/28/23 Rx days #360 tabs docusate sodium 100 mg capsule 100 mg PO BID #30 caps 09/25/23 11/28/23 Rx polyethylene glycol 3350 17 gram 17 g PO BID #30 ea 09/25/23 11/28/23 Rx oral powder packet (Miralax) potassium chloride 10 mEq 20 meq PO TID 09/26/23 11/28/23 History capsule,extended release cyclobenzaprine 5 mg tablet 5 mg PO BID PRN muscle spasm 30 10/26/23 11/28/23 Rx days #20 tabs dulaglutide 4.5 mg/0.5 mL 4.5 mg subcut Q7D 10/26/23 11/28/23 History subcutaneous pen injector (Trulicity) duloxetine 30 mg capsule,delayed 30 mg PO QAM 30 days #30 caps 10/26/23 11/28/23 Rx release ipratropium 0.5 mg-albuterol 3 mg 3 ml NEB Q6H 10/26/23 11/28/23 History (2.5 mg base)/3 mL nebulization soln diclofenac sodium 1 % topical gel 4 g topical QID PRN Pain #100 grams 10/27/23 11/28/23 Rx (Arthritis Pain (diclofenac)) nicotine 21 mg/24 hr daily 21 mg transdermal QAM #7 ea 10/27/23 11/28/23 Rx transdermal patch (Nicoderm CQ) acetaminophen 500 mg tablet 1,000 mg (2 x 500 mg) PO BID #60 10/31/23 11/28/23 Rx (Tylenol Extra Strength) tabs oxycodone 10 mg tablet,crush 10 mg PO BID 3 days #6 tabs 10/31/23 11/28/23 Rx resistant,extended release 12 hr (OxyContin) pneumoc 20-derick conj-dip cr(PF) 0.5 0.5 ml IM ONCE #0.5 mL 10/31/23 11/28/23 Rx mL IM syringe (Prevnar 20 (PF)) albuterol sulfate 90 mcg/actuation 2 puff inhalation Q6H PRN 11/07/23 11/28/23 History aerosol inhaler Shortness Of Breath Or Wheezing furosemide 40 mg tablet 80 mg PO QPM 11/07/23 11/28/23 History rimegepant 75 mg disintegrating 75 mg PO UD PRN Migraine Headache 11/07/23 11/28/23 History tablet (Nurtec ODT) oxycodone 5 mg tablet 5 mg PO Q6H PRN pain #30 tabs 11/23/23 11/28/23 Rx enoxaparin 120 mg/0.8 mL 120 mg (0.8 mL) subcut Q12H 7 days 11/24/23 11/28/23 Rx subcutaneous syringe (Lovenox) #11.2 mL warfarin 5 mg tablet See Rx Instructions PO UD #30 tabs 11/24/23 11/28/23 Rx Patient History Medical History Chronic systolic (congestive) heart failure Hypertension Mitral valve disease s/p MVR 08/2022, [facility] Lumbar disc herniation with radiculopathy Lumbar spinal stenosis Acute lumbar radiculopathy Lumbar facet joint syndrome Postoperative keloid scar sternal Atrial fibrillation History of COVID-2020- no hospitalized, "moderate symptoms" > resolved Asthma-COPD overlap syndrome History of pulmonary embolism 2021, taking Warfarin Chronic diastolic congestive heart failure GERD (gastroesophageal reflux disease) Hx of coronary artery disease Stents x2 (2010) CSF leak Remote hx > "resolved" per patient Degeneration of cervical intervertebral disc External hemorrhoids Hemiplegic migraine Obstructive sleep apnea on CPAP Diabetes mellitus, type 2 Hyperlipidemia Vertebral artery stenosis Surgical History Status post left foot surgery Hx of arthroscopy of right knee History of facial surgery 2014, reconstruction sx. of jaw/face>no problems opening mouth since surgery History of open reduction and internal fixation (ORIF) procedure Left tibia, hardware intact History of mitral valve replacement with mechanical valve 08/2022, [facility] History of transesophageal echocardiography (GEORGETTE) 05/2022 History of hemorrhoidectomy ~2018, [facility] S/P left knee arthroscopy History of bilateral tubal ligation Status post right foot surgery History of esophagogastroduodenoscopy (EGD) History of colonoscopy History of heart artery stent Stents x2 (2010) History of cardiac cath ~2010- stents x2 ~2014 ([facility])- no stents 04/2022- no stents Family History Mother Breast cancer, Onset Age: 64 Type 2 diabetes mellitus Father Diabetes Coronary heart disease Type 2 diabetes mellitus Myocardial infarction, Onset Age: 52 Family/Other Hypertension sibling Grandmother (Maternal) Cancer Grandfather (Maternal) Cancer Denies family history of Ovarian cancer Social History Smoking Status: Current every day smoker Tobacco Type: Cigarettes Age Started Using Tobacco: 13; Age Quit Using Tobacco: 58; packs per day: 0.5; Cigarettes Per Day: 8-10 cigs/day; Second Hand Exposure: No; Do You Dip or Chew Tobacco: No; Hx Alcohol Use: No Hx Substance Use: No Preferred Language: Somali Communication Ability: Effective Visual Impairment: No Limitations Hearing Ability: Normal Port Engineer Required: No Beliefs That Will Affect Care: None marital status: Current Living Situation: Spouse Current Living Situation Comment: Home with current occupational status: disabled How many Children do You have: 5 Other Information That Helps Us Care for You: No Feels Safe at Home: Yes Safety Concerns: Feels Safe At This Time Childhood Exposure to Second-Hand Smoke: No Diet: low salt caffeine: Yes (1/2 cup of coffee a day) during the past year weight has: remained stable Dental Care, Regularly: No Physical Activity Frequency: 1-2 Times per Week Seatbelt Use: always Sunscreen Use: No Assistive Devices: Glasses and Walker Review of Systems Review of Systems: reviewed, per HPI Physical Exam Physical Exam: Constitutional: appears in pain, speaking in full sentences, laying on her side HEENT: NCAT, no conjunctival injection CV: regular rhythm, extremities well-perfused, no LE edema, appears euvolemic Resp: CTABL, mild wheeze, no rales/rhonchi appreciated, no increased work of breathing GI: soft, nondistended, nontender MSK: no gross deformities appreciated Skin: warm, dry, no rash appreciated, incision C/D/I Neuro: alert, oriented, no focal neurologic deficit appreciated Results & Data Results & Data Vital Signs (Past 12 Hours) Vital Signs Temp Pulse Pulse Pulse Resp BP BP 11/28/23 18:47 11/28/23 18:03 36.6 C 76 18 162/78 H 11/28/23 15:30 80 20 149/60 H 11/28/23 12:43 78 16 141/68 H 11/28/23 11:12 78 16 11/28/23 10:59 96 H 11/28/23 10:59 36.7 C 68 16 153/49 H Pulse Ox O2 Del Method 11/28/23 18:47 Room Air 11/28/23 18:03 96 Room Air 11/28/23 15:30 94 Room Air 11/28/23 12:43 92 11/28/23 11:12 93 Room Air 11/28/23 10:59 11/28/23 10:59 93 Room Air (7) Hypertension Hypertension type: essential hypertension Qualified Code(s): I10 - Essential (primary) hypertension (8) Hyperlipidemia Hyperlipidemia type: unspecified Qualified Code(s): E78.5 - Hyperlipidemia, unspecified
--- NOTE | 2023-11-28 19:08 | Billing Data ---
Date of Service November 28, 2023 Coding Level of Care Code 33291 INT INP/OBS CARE
[2023-11-28 19:11] LABS: Appearance Urine Clear (Clear); Bilirubin Urine Negative (Negative); Blood Urine Negative (Negative); Color Urine Dark Yellow; Epithelial Cell Urine Auto >30 /lpf (0-5); Glucose Urine UA Negative (Negative); Ketones Urine Negative (Negative); Leukocyte Esterase Urine 1+ (Negative); Nitrite Urine Negative (Negative); Protein Urine Trace (Negative); RBC Urine Automated 0-4 /hpf (0-4); Specific Gravity Urine > 1.045 (1.000-1.030); Urobilinogen Urine Negative (Negative); WBC Urine Automated >30 /hpf (0-5)
[2023-11-28] MEDS: HYDROmorphone INJ 1 MG/ML SYRINGE IV STA (19:18)
[2023-11-28 19:25] LABS: Bacteria Urine Automated 1+ (Negative)
[2023-11-28] MEDS: ALBUT/IPRATROP 3MG/0.5MG NEB 3 ML VIAL NEB SCH (19:27)
[2023-11-28] MEDS: IPRATROPIUM BROMIDE HFA INHALER INH SCH (20:15)
[2023-11-28] MEDS ORDERED: FUROSEMIDE 80 MG TAB PO SCH (21:00)
[2023-11-28] MEDS: DOCUSATE SODIUM 100 MG CAP PO SCH (21:05)
[2023-11-28] MEDS: ENOXAPARIN INJ 120 MG/0.8 ML SYR SQ ONE (21:05)
[2023-11-28] MEDS: PANTOprazole 40 MG TAB PO SCH (21:05)
[2023-11-28] MEDS: oxyCODONE HCL 10 MG TABCR (OxyCONTIN) PO SCH (21:05)
[2023-11-28] MEDS: ATORVASTATIN 40 MG TAB PO SCH (21:06)
[2023-11-29] MEDS: INSULIN ASPART PER UNIT CHARGE SC SCH ×2 (00:30→12:53)
[2023-11-29 07:37] LABS: INR 1.5 (0.9-1.1); Prothrombin Time 16.4 Seconds (9.0-12.0)
--- NOTE | 2023-11-29 08:15 | Hospitalist Progress Note ---
Date of Service November 29, 2023 Assessment & Plan (1) S/P spinal surgery: Plan: pt underwent L3-S1 Decompression and Fusion 11/21/23, presents with back pain, imaging shows L# Transverse process fractures and fluid in ls area consistent with post op changes pain control and pt on surgery service, pt also has some le weakness since surgery. she has had several falls at home since surgery Patient with pain medication amended on 11/29 including addition of muscle re laxants Eventual goal is to have patient go to rehab. (2) Type 2 diabetes mellitus with obesity: Plan: Home medications held Basal bolus, ISS Resume home regimen on discharge (3) Chronic systolic (congestive) heart failure: Plan: States taking 120mg lasix daily, typically in evening Appears euvolemic, patient's Lasix was inappropriately dosed in the med reconciliation. Patient typically takes 80 mg once a day. She was given 2 doses of 120 mg on 11/28. Subsequently will skip dose on 11/29 and restart her 80 mg in the morning of 11/30 discontinuing IV fluid continue metoprolol HF imporved EF (4) History of mitral valve replacement with mechanical valve: Plan: On warfarin, INR 1.5 today Recieved 1x warfarin dose load patient continues on warfarin 15 mg she typically takes 50 mg Monday and 10 mg all other days. Enoxaparin will be continued until therapeutic at least 2.5 or greater INR (5) History of TIA (transient ischemic attack): Plan: Will continue ASA On Lovenox 120mg q12h if plan for return to OR will need to be held (6) Obstructive sleep apnea on CPAP: Plan: CPAP ordered (7) GERD (gastroesophageal reflux disease): Plan: Continue protonix (8) Hypertension: Plan: Restart losartan tomorrow (9) Hyperlipidemia: Plan: CK today 1022, will hold statin Recheck CK in AM (10) COPD (chronic obstructive pulmonary disease): Plan: Continue home regimen as ordered Plan previous history of PE, is on warfarin for mitral valve replacement, low on presentation bridged with heparin Admission and Anticipated Discharge Date Admission Date: November 28, 2023 Subjective Patient is tearful as significant back pain lying on her side in a Semi-[place]'s position. Pain is nonradicular in nature. Pain is focal on her back near her operative site Physical Exam Physical Exam: Denies being tearful she is otherwise in no little physical distress. Her cardiac exam is regular lungs are clear her extremities are with sensation intact with equal bilateral lower extremity strength which is somewhat limited by pain to 4/5 Results & Data Results & Data Vital Signs (Past 12 Hours) Vital Signs Temp Pulse Pulse Pulse Resp BP Pulse Ox 11/29/23 07:43 98.6 F 80 18 103/61 98 11/29/23 07:15 81 18 98 11/29/23 07:15 81 18 98 11/29/23 02:34 93 H 20 93 11/29/23 00:58 99 H 18 96 11/28/23 22:51 91 H 22 99 11/28/23 20:52 98.6 F 83 18 145/72 H 94 11/28/23 20:45 O2 Del Method O2 Flow Rate 11/29/23 07:43 CPAP 11/29/23 07:15 CPAP 2 11/29/23 07:15 2 11/29/23 02:34 11/29/23 00:58 CPAP 2 11/28/23 22:51 11/28/23 20:52 Room Air 11/28/23 20:45 Room Air Laboratory Results Reviewed coagulation studies reviewed [id number] glucose reviewed urine analysis Spoke with pharmacist dealing with anticoagulation as patient has mechanical valve and her INR is subtherapeutic. PG Care Time/CCT Total # of Minutes Spent Total Time Spent with Patient: Total time spent is greater than 50% in coordination of care (as documented) at patient's floor/unit and/or counseling patient: updated the bedside Coding Level of Care Code 02494 SUB INP/OBS CARE 2/35MIN Diagnoses S/P spinal surgery Z98.890 Type 2 diabetes mellitus with obesity E11.69; E66.9 Chronic systolic (congestive) heart failure I50.22 History of mitral valve replacement with mechanical valve Z95.2 History of TIA (transient ischemic attack) Z86.73 Obstructive sleep apnea on CPAP G47.33; Z99.89 GERD (gastroesophageal reflux disease) K21.9 Essential hypertension I10 Hypertension type: essential hypertension Hyperlipidemia, unspecified hyperlipidemia type E78.5 Hyperlipidemia type: unspecified COPD (chronic obstructive pulmonary disease) J44.9 (8) Hypertension Hypertension type: essential hypertension Qualified Code(s): I10 - Essential (primary) hypertension (9) Hyperlipidemia Hyperlipidemia type: unspecified Qualified Code(s): E78.5 - Hyperlipidemia, unspecified
[2023-11-29] MEDS ORDERED: FUROSEMIDE 40 MG TAB PO SCH (09:00)
[2023-11-29] MEDS: DULoxetine HCL 30 MG CAP PO SCH (09:02)
[2023-11-29] MEDS: ASPIRIN 81 MG ECTAB PO SCH (09:03)
[2023-11-29] MEDS: FLUTICASONE/VILANTEROL 100/25MCG 14 PUFFS/INHALER INH SCH (09:04)
[2023-11-29] MEDS: METOPROLOL SUCC 25MG EXT REL TAB PO SCH (09:06)
[2023-11-29] MEDS: LOSARTAN POTASSIUM 25 MG TAB PO SCH (09:06)
[2023-11-29] MEDS: oxyCODONE HCL IR 5 MG TAB (IMMEDIATE RELEASE) PO PRN ×2 (10:53→14:47)
[2023-11-29] MEDS ORDERED: Nursing to Pharmacy Communication SCH (12:45)
[2023-11-29] MEDS ORDERED: oxyCODONE HCL 10 MG TABCR (OxyCONTIN) PO SCH (13:49)
--- NOTE | 2023-11-29 14:39 | History & Physical Report ---
Date of Service November 29, 2023 Assessment & Plan (1) S/P spinal surgery: Plan: Assessment status post lumbar decompression fusion with postoperative pain issues. CAT scan demonstrates instrumentation to be in place in appropriate alignment no gross fluid collection. I will initiate a course of physical therapy occupational therapy and hopefully transfer her to rehab in the next few days. Admission and Anticipated Discharge Date Admission Date: November 28, 2023 History of Present Illness Chief Complaint: Postoperative back pain Primary Care Provider: Sugar Weber MD This is a 58-year-old female known to me that presents status post multilevel lumbar decompression and fusion with continued back pain. She describes symptoms radiating down her bilateral thighs not below her knees with activity. This progressed throughout the weekend. Today she is still struggling with motion and getting to a chair. She is followed strength of the lower extremities. Allergies Allergy/AdvReac Type Severity Reaction Status Date / Time No Known Allergies Allergy Verified 11/14/23 09:40 Home Medications Medication Instructions Recorded Confirmed Type Bedside Commode #1 ea 08/04/22 11/20/23 Rx Hospital Bed Homecare #1 ea 08/12/22 11/20/23 Rx hydrocortisone 1 %-pramoxine 1 % 1 applic [place] BID PRN hemorrhoids 05/17/23 11/28/23 Rx rectal foam (Proctofoam HC) #10 grams ipratropium bromide 17 2 puff inhalation TID #12.9 grams 05/17/23 11/28/23 Rx mcg/actuation HFA aerosol inhaler (Atrovent HFA) losartan 25 mg tablet 25 mg PO QAM 90 days #90 tabs 05/17/23 11/28/23 Rx metoprolol succinate 25 mg 25 mg PO QAM 90 days #90 tabs 05/17/23 11/28/23 Rx tablet,extended release 24 hr atorvastatin 40 mg tablet 40 mg PO QPM 90 days #90 tabs 06/19/23 11/28/23 Rx pregabalin 150 mg capsule 150 mg PO TID 30 days #90 caps 07/07/23 11/28/23 Rx blood-glucose meter (OneTouch #1 ea 07/13/23 11/20/23 Rx Verio Flex Meter) lidocaine 5 % topical patch 1 patch topical DAILY #15 ea 07/16/23 11/28/23 Rx (Lidoderm) aspirin 81 mg tablet,delayed 81 mg PO QAM 10/02/23 02/06/24 History release (Ecotrin Low Strength) fluticasone furoate 100 1 inh inhalation QAM 07/24/23 11/28/23 History mcg-vilanterol 25 mcg/dose inhalation powder (Breo Ellipta) pantoprazole 40 mg tablet,delayed 40 mg PO QPM 07/24/23 11/28/23 History release blood sugar diagnostic (OneTouch #100 ea 07/27/23 11/20/23 Rx Verio test strips) lancets 30 gauge (OneTouch #100 ea 07/27/23 11/20/23 Rx UltraSoft 2 Lancet) nitroglycerin 0.4 mg sublingual 0.4 mg sublingual Q5M PRN Chest 08/09/23 11/28/23 Rx tablet Pain #30 tabs Stair [place] #1 ea 08/10/23 11/20/23 Rx metformin 500 mg tablet 1,000 mg (2 x 500 mg) PO BID 90 09/12/23 11/28/23 Rx days #360 tabs docusate sodium 100 mg capsule 100 mg PO BID #30 caps 09/25/23 11/28/23 Rx polyethylene glycol 3350 17 gram 17 g PO BID #30 ea 09/25/23 11/28/23 Rx oral powder packet (Miralax) potassium chloride 10 mEq 20 meq PO TID 09/26/23 11/28/23 History capsule,extended release cyclobenzaprine 5 mg tablet 5 mg PO BID PRN muscle spasm 30 10/26/23 11/28/23 Rx days #20 tabs dulaglutide 4.5 mg/0.5 mL 4.5 mg subcut Q7D 10/26/23 11/28/23 History subcutaneous pen injector (Trulicity) duloxetine 30 mg capsule,delayed 30 mg PO QAM 30 days #30 caps 10/26/23 11/28/23 Rx release ipratropium 0.5 mg-albuterol 3 mg 3 ml NEB Q6H 10/26/23 11/28/23 History (2.5 mg base)/3 mL nebulization soln diclofenac sodium 1 % topical gel 4 g topical QID PRN Pain #100 grams 10/27/23 11/28/23 Rx (Arthritis Pain (diclofenac)) nicotine 21 mg/24 hr daily 21 mg transdermal QAM #7 ea 10/27/23 11/28/23 Rx transdermal patch (Nicoderm CQ) acetaminophen 500 mg tablet 1,000 mg (2 x 500 mg) PO BID #60 10/31/23 11/28/23 Rx (Tylenol Extra Strength) tabs oxycodone 10 mg tablet,crush 10 mg PO BID 3 days #6 tabs 10/31/23 11/28/23 Rx resistant,extended release 12 hr (OxyContin) pneumoc 20-derick conj-dip cr(PF) 0.5 0.5 ml IM ONCE #0.5 mL 10/31/23 11/28/23 Rx mL IM syringe (Prevnar 20 (PF)) albuterol sulfate 90 mcg/actuation 2 puff inhalation Q6H PRN 11/07/23 11/28/23 History aerosol inhaler Shortness Of Breath Or Wheezing furosemide 40 mg tablet 80 mg PO QPM 11/07/23 11/28/23 History rimegepant 75 mg disintegrating 75 mg PO UD PRN Migraine Headache 11/07/23 11/28/23 History tablet (Nurtec ODT) oxycodone 5 mg tablet 5 mg PO Q6H PRN pain #30 tabs 11/23/23 11/28/23 Rx enoxaparin 120 mg/0.8 mL 120 mg (0.8 mL) subcut Q12H 7 days 11/24/23 11/28/23 Rx subcutaneous syringe (Lovenox) #11.2 mL warfarin 5 mg tablet See Rx Instructions PO UD #30 tabs 11/24/23 11/28/23 Rx Past Med/Surg History Medical History Chronic systolic (congestive) heart failure Hypertension Mitral valve disease s/p MVR 08/2022, [facility] Lumbar disc herniation with radiculopathy Lumbar spinal stenosis Acute lumbar radiculopathy Lumbar facet joint syndrome Postoperative keloid scar sternal Atrial fibrillation History of COVID-2020- no hospitalized, "moderate symptoms" > resolved Asthma-COPD overlap syndrome History of pulmonary embolism 2021, taking Warfarin Chronic diastolic congestive heart failure GERD (gastroesophageal reflux disease) Hx of coronary artery disease Stents x2 (2010) CSF leak Remote hx > "resolved" per patient Degeneration of cervical intervertebral disc External hemorrhoids Hemiplegic migraine Obstructive sleep apnea on CPAP Diabetes mellitus, type 2 Hyperlipidemia Vertebral artery stenosis Surgical History Status post left foot surgery Hx of arthroscopy of right knee History of facial surgery 2014, reconstruction sx. of jaw/face>no problems opening mouth since surgery History of open reduction and internal fixation (ORIF) procedure Left tibia, hardware intact History of mitral valve replacement with mechanical valve 08/2022, [facility] History of transesophageal echocardiography (GEORGETTE) 05/2022 History of hemorrhoidectomy ~2017, [facility] S/P left knee arthroscopy History of bilateral tubal ligation Status post right foot surgery History of esophagogastroduodenoscopy (EGD) History of colonoscopy History of heart artery stent Stents x2 (2010) History of cardiac cath ~2010- stents x2 ~2014 ([place])- no stents 04/2022- no stents Family History Mother Breast cancer, Onset Age: 64 Type 2 diabetes mellitus Father Diabetes Coronary heart disease Type 2 diabetes mellitus Myocardial infarction, Onset Age: 52 Family/Other Hypertension sibling Grandmother (Maternal) Cancer Grandfather (Maternal) Cancer Denies family history of Ovarian cancer Social History Smoking Status: Current every day smoker Tobacco Type: Cigarettes Age Started Using Tobacco: 13; Age Quit Using Tobacco: 58; packs per day: 0.5; Cigarettes Per Day: 8-10 cigs/day; Second Hand Exposure: No; Do You Dip or Chew Tobacco: No; Hx Alcohol Use: No Hx Substance Use: No Preferred Language: Maltese Communication Ability: Effective Visual Impairment: No Limitations Hearing Ability: Normal Assessment Nurse Practitioner Required: No Beliefs That Will Affect Care: None marital status: Current Living Situation: Spouse Current Living Situation Comment: Home with current occupational status: disabled How many Children do You have: 5 Other Information That Helps Us Care for You: No Feels Safe at Home: Yes Safety Concerns: Feels Safe At This Time Childhood Exposure to Second-Hand Smoke: No Diet: low salt caffeine: Yes (1/2 cup of coffee a day) during the past year weight has: remained stable Dental Care, Regularly: No Physical Activity Frequency: 1-2 Times per Week Seatbelt Use: always Sunscreen Use: No Assistive Devices: Bedside Commode, Walker and Wheelchair Physical Exam Physical Exam: Patient is currently in bed. She is exquisite tenderness palpation of the lumbar musculature and trochanteric region to her thighs. She is neurologically intact to sensory and strength detailed testing. The incision is healing appropriately. There is no erythema no drainage. Results & Data Results & Data Vital Signs (Past 12 Hours) Vital Signs Temp Pulse Pulse Pulse Resp BP Pulse Ox 11/29/23 12:29 80 18 98 11/29/23 09:30 11/29/23 09:05 80 120/67 11/29/23 07:43 37.0 C 80 18 103/61 98 11/29/23 07:15 81 18 98 11/29/23 07:15 81 18 98 O2 Del Method O2 Flow Rate 11/29/23 12:29 Room Air 11/29/23 09:30 Room Air 11/29/23 09:05 11/29/23 07:43 CPAP 11/29/23 07:15 CPAP 2 11/29/23 07:15 2 Code Status & VTE Plan VTE Prophylaxis Plan VTE Prophylaxis will be ordered: Yes
--- NOTE | 2023-11-29 14:58 | Pharmacy Report ---
Pharmacy Glycemic Short Note 2 - Date of Service November 29, 2023 - Glycemic Short BSG Results (Last 24 hours): 11/28/23 11/28/23 11/28/23 17:11 18:00 20:48 POC Glucose 134 H 139 H 213 H 11/29/23 11/29/23 11/29/23 00:27 05:46 12:09 POC Glucose 74 99 142 H OUTPATIENT ANTIDIABETIC REGIMEN: * Metformin 1000 mg BID, Trulicity 4.5 weekly * New A1c pending ASSESSMENT: * Patient admitted with post op pain, s/p spinal surgery 11/21. * BSGs 498-649-421-74-99-142 mg/dL. Patient NPO at midnight, now ordered diet with lunch * Patient previously required tighter parameters/basal insulin on previous adm ission, however patient was also on dex 6 mg IV. * Will continue current ordered parameters weight based stress of 2 novolog, holding on Lantus as fasting 99 mg/dL this morning PLAN FOR INPATIENT GLYCEMIC CONTROL: * Hold outpatient oral diabetes medications * Basal insulin * hold * Bolus insulin * NovoLog per scale ACHS or Q6hrs while NPO * Goal Range: Low 110 mg/dL - High 140 mg/dL * Correction Factor: 20 mg/dL/unit * Nutritional / Prandial insulin per carb ratio of 1 unit per 7 grams CHO consumed
[2023-11-29] MEDS: WARFARIN SOD 5 MG TAB PO SCH (15:16)
[2023-11-29] MEDS: CYCLOBENZAPRINE HCL 5 MG TAB PO PRN (15:16)
[2023-11-29] MEDS: dexAMETHasone 8 MG in SYRINGE 0 ML IV SCH (20:50)
[2023-11-29] MEDS: oxyCODONE HCL 15 MG TABCR (OxyCONTIN) PO SCH (20:50)
[2023-11-29] MEDS: POTASSIUM CHLORIDE PWD 20 MEQ PACK PO STA (22:16)
[2023-11-30 07:20] LABS: INR 2.2 (0.9-1.1); Prothrombin Time 22.5 Seconds (9.0-12.0)
[2023-11-30 07:28] LABS: Estimated Average Glucose 163 mg/dl; Hemoglobin A1C 7.3 % (4.5-5.6)
--- NOTE | 2023-11-30 08:27 | Orthopedic Progress Note ---
Date of Service November 30, 2023 Assessment & Plan (1) S/P spinal surgery: Plan: Today we will continue with physical therapy and anti-inflammatory medication. Will plan for discharge to [facility] when bed available. Admission and Anticipated Discharge Date Admission Date: November 28, 2023 Subjective Patient's back pain and leg pain are present but improving. Physical Exam Physical Exam: Patient is sitting up in bed eating. She has good strength testing. She is tender to palpation of the lumbar musculature. Incision continues to appear clean dry and intact without drainage or erythema. Results & Data Vital Signs (Past 12 Hours) Vital Signs Temp Pulse Pulse Pulse Resp BP Pulse Ox 11/30/23 07:39 36.2 C L 54 L 16 112/62 99 11/30/23 07:13 60 20 100 11/30/23 07:13 60 20 100 11/30/23 02:36 57 L 97 11/30/23 01:45 89 24 98 11/29/23 22:35 83 25 H 99 11/29/23 20:40 O2 Del Method O2 Flow Rate 11/30/23 07:39 CPAP 11/30/23 07:13 2 11/30/23 07:13 CPAP 2 11/30/23 02:36 2 11/30/23 01:45 Room Air 11/29/23 22:35 2 11/29/23 20:40 Room Air Queries Orthopedic Spine Obesity: Yes
[2023-11-30] MEDS: POTASSIUM CHLORIDE PWD 20 MEQ PACK PO SCH (09:03)
[2023-11-30] MEDS: FUROSEMIDE 80 MG TAB PO SCH (09:03)
[2023-11-30] MEDS: metFORMIN HCL 500 MG TAB PO SCH (09:04)
[2023-11-30] MEDS: LANTUS PER UNIT CHARGE SC ONE (10:27)
[2023-11-30] MEDS: HYDROmorphone INJ 0.5 MG/0.5 ML SYR IV PRN (18:30)
[2023-11-30] MEDS ORDERED: FUROSEMIDE 40 MG TAB PO SCH (20:00)
[2023-12-01 06:20] LABS: Hematocrit (blood only) 28.4 % (37.0-47.0); Hemoglobin 8.9 g/dl (12.0-16.0); Mean Corpuscular Hemoglobin 28.3 pg (25.0-34.0); Mean Corpuscular Hgb Conc 31.3 g/dL (32.0-36.0); Mean Corpuscular Volume 90.4 fL (80.0-100.0); Mean Platelet Volume 11.8 fL (9.4-12.4); Nucleated RBC # (auto) 0.02 K/uL (0.00-0.12); Nucleated RBC % (auto) 0.1 %; Platelet Count 260 K/uL (130-400); RDW Coefficient of Variation 17.2 % (11.5-14.5); RDW Standard Deviation 54.9 fL (36.4-46.3); Red Blood Count 3.14 M/uL (4.20-5.40)
[2023-12-01 06:25] LABS: INR 2.5 (0.9-1.1); Prothrombin Time 26.1 Seconds (9.0-12.0)
[2023-12-01 06:42] LABS: Creatinine Clr Calc Pharmacy 115.7 ml/min; Est GFR (Non-African American) 95.7 ml/min
[2023-12-01] MEDS: dexAMETHasone 8 MG in SYRINGE 0 ML IV SCH (08:28)
[2023-12-01] MEDS: LANTUS PER UNIT CHARGE SC ONE (09:06)
--- NOTE | 2023-12-01 10:32 | Orthopedic Progress Note ---
Date of Service December 01, 2023 Assessment & Plan (1) Neurogenic claudication due to lumbar spinal stenosis: Plan: At this time we will continue physical therapy and plan for rehab placement when bed available. Admission and Anticipated Discharge Date Admission Date: November 28, 2023 Subjective Back and leg pain markedly improved today. She is tolerating physical therapy better. Physical Exam Physical Exam: On exam she is constricted testing appears comfortable. Results & Data Vital Signs (Past 12 Hours) Vital Signs Temp Pulse Pulse Resp BP BP Pulse Ox 12/01/23 09:25 68 19 155/70 H 12/01/23 09:03 12/01/23 07:26 36.5 C 69 16 134/70 100 12/01/23 07:06 466 H 17 12/01/23 07:05 57 L 17 100 12/01/23 01:41 71 15 100 12/01/23 01:41 71 15 100 11/30/23 22:40 68 21 100 O2 Del Method O2 Flow Rate 12/01/23 09:25 12/01/23 09:03 Room Air 12/01/23 07:26 CPAP 12/01/23 07:06 2 12/01/23 07:05 CPAP 2 12/01/23 01:41 CPAP 2 12/01/23 01:41 2 11/30/23 22:40 2 Queries Orthopedic Spine Obesity: Yes
--- NOTE | 2023-12-01 13:28 | Pharmacy Report ---
Pharmacy Glycemic Short Note 2 - Date of Service December 01, 2023 - Glycemic Short BSG Results (Last 24 hours): 11/30/23 11/30/23 12/01/23 16:25 20:37 07:30 POC Glucose 215 H 246 H 230 H 12/01/23 11:29 POC Glucose 169 H OUTPATIENT ANTIDIABETIC REGIMEN: * Metformin 1000 mg PO BID * Trulicity 4.5 mg SQ weekly (on Fridays) * HbA1c: 7.3% (11/30/23) ASSESSMENT: 12/01/23 * IV steroids were initiated on pt the evening of 11/29. Pt experiencing steroid- induced hyperglycemia since then. * Lantus added yesterday and Novolog parameters were tightened. BSGs starting to resolve today. IV dexamethasone reduced from 8mg q12h to 8mg daily this morning. * Pharmacy will continue to follow and adjust regimen as indicated. Expect insulin requirements to decrease as steroids are tapered/discontinued. 11/29/23 * Patient admitted with post op pain, s/p spinal surgery 11/21. * BSGs [phone] mg/dL. Patient NPO at midnight, now ordered diet with lunch * Patient previously required tighter parameters/basal insulin on previous admission, however patient was also on dex 6 mg IV. * Will continue current ordered parameters weight based stress of 2 novolog, holding on Lantus as fasting 99 mg/dL this morning PLAN FOR INPATIENT GLYCEMIC CONTROL: * Metformin 1gm PO BID (resumed yesterday morning) * Basal insulin * Lantus 50 units SQ daily (while receiving IV DXM) * Bolus insulin * NovoLog per scale ACHS or Q6hrs while NPO * Goal Range: Low 110 mg/dL - High 140 mg/dL * Correction Factor: 15 mg/dL/unit * Nutritional / Prandial insulin per carb ratio of 1 unit per 5 grams CHO consumed
[2023-12-02 08:08] LABS: INR 3.9 (0.9-1.1); Prothrombin Time 39.2 Seconds (9.0-12.0)
--- NOTE | 2023-12-02 08:37 | Orthopedic Progress Note ---
Date of Service December 02, 2023 Assessment & Plan (1) Neurogenic claudication due to lumbar spinal stenosis: Plan: Deb is a hospital mission day for status post lumbar decompression and fusion. We are currently just waiting on discharge to [facility]. Will continue with aggressive bowel regimen. Continue with pain control. Continue physical therapy/ambulation. DVT prophylaxis is in the form teds and SCDs. Orthopedically stable for discharge Admission and Anticipated Discharge Date Admission Date: November 28, 2023 Morgan Boyd is hospital admission day 4. We are just waiting on placement. She had a bowel movement. Pain is improving. Yesterday in physical therapy ambulated 90 feet. Review of Systems Review of Systems: All systems reviewed & are unremarkable except as noted in HPI & below Physical Exam Physical Exam: She is up and ambulatory moving to the chair Incision looks great Calf soft and nontender bilaterally Strength unchanged bilateral lower extremities Alert and oriented x 3 Results & Data Vital Signs (Past 12 Hours) Vital Signs Temp Pulse Pulse Resp BP Pulse Ox O2 Del Method 12/02/23 08:04 78 16 94 Room Air 12/02/23 08:01 36.7 C 75 16 146/81 H 97 Room Air 12/02/23 02:35 18 98 12/02/23 00:53 65 18 98 CPAP 12/01/23 21:49 62 29 H 99 O2 Flow Rate 12/02/23 08:04 12/02/23 08:01 12/02/23 02:35 2 12/02/23 00:53 12/01/23 21:49 2 Queries Orthopedic Spine Obesity: Yes
[2023-12-02] MEDS: LANTUS PER UNIT CHARGE SC SCH (09:08)
--- NOTE | 2023-12-02 09:41 | Pharmacy Report ---
Pharmacy Glycemic Short Note 2 - Date of Service December 02, 2023 - Glycemic Short BSG Results (Last 24 hours): 12/01/23 12/01/23 12/01/23 11:29 16:26 20:40 POC Glucose 169 H 166 H 215 H 12/02/23 07:54 POC Glucose 95 OUTPATIENT ANTIDIABETIC REGIMEN: * Metformin 1000 mg PO BID * Trulicity 4.5 mg SC weekly (on Fridays) * HbA1c: 7.3% (11/30/23) ASSESSMENT: 12/02: * Deb received 104 units of insulin yesterday, 50 basal + 54 bolus. BSGs were: 390-825-600-215 mg/dL. * Fasting BSG below goal at 95 mg/dL this AM. Will reduce basal by 40% to prevent hypoglycemia. * Will tighten Novolog again to previous regimen which reflects weight/stress of 3. * Continues on Dexamethasone 8 mg IV daily. 12/01: * IV steroids were initiated on pt the evening of 11/29. Pt experiencing steroid- induced hyperglycemia since then. * Lantus added yesterday and Novolog parameters were tightened. BSGs starting to resolve today. IV dexamethasone reduced from 8mg q12h to 8mg daily this morning. * Pharmacy will continue to follow and adjust regimen as indicated. Expect insulin requirements to decrease as steroids are tapered/discontinued. 11/29: * Patient admitted with post op pain, s/p spinal surgery 11/21. * BSGs [phone] mg/dL. Patient NPO at midnight, now ordered diet with lunch * Patient previously required tighter parameters/basal insulin on previous admission, however patient was also on dex 6 mg IV. * Will continue current ordered parameters weight based stress of 2 novolog, holding on Lantus as fasting 99 mg/dL this morning PLAN FOR INPATIENT GLYCEMIC CONTROL: * Metformin 1000 mg PO BIDM * Basal insulin * Lantus 30 units SC daily (if steroids discontinued, hold basal dose and call pharmacy at [phone]) * Bolus insulin * NovoLog per scale ACHS or Q6hrs while NPO * Goal Range: Low 110 mg/dL - High 140 mg/dL * Correction Factor: 15 mg/dL/unit * Nutritional / Prandial insulin per carb ratio of 1 unit per 5 grams CHO consumed
[2023-12-02] MEDS: ALBUTEROL HFA 8 GM INHALER INH PRN (15:51)
[2023-12-02] MEDS: WARFARIN SOD 10 MG TAB PO ONE (18:14)
--- NOTE | 2023-12-02 20:27 | Hospitalist Progress Note ---
Date of Service December 02, 2023 Assessment & Plan (1) S/P spinal surgery: Plan: pt underwent L3-S1 Decompression and Fusion 11/21/23, presents with back pain, imaging shows L# Transverse process fractures and fluid in ls area consistent with post op changes pain control and pt on surgery service, pt also has some le weakness since surgery. she has had several falls at home since surgery Patient with pain medication amended on 11/29 including addition of muscle r elaxants Eventual goal is to have patient go to rehab. (2) Type 2 diabetes mellitus with obesity: Plan: Home medications held Basal bolus, ISS Resume home regimen on discharge (3) Chronic systolic (congestive) heart failure: Plan: States taking 120mg lasix daily, typically in evening Appears euvolemic, patient's Lasix was inappropriately dosed in the med reconciliation. Patient typically takes 80 mg once a day. She was given 2 doses of 120 mg on 11/28. Subsequently will skip dose on 11/29 and restart her 80 mg in the morning of 11/30 discontinuing IV fluid continue metoprolol HF imporved EF (4) History of mitral valve replacement with mechanical valve: Plan: On warfarin, INR 1.5 today Recieved 1x warfarin dose load patient continues on warfarin 15 mg she typically takes 50 mg Monday and 10 mg all other days. Enoxaparin will be continued until therapeutic at least 2.5 or greater INR INR is 3.9 will give 10 mg today. (5) History of TIA (transient ischemic attack): Plan: Will continue ASA ok to stop lovenox (6) Obstructive sleep apnea on CPAP: Plan: CPAP ordered (7) GERD (gastroesophageal reflux disease): Plan: Continue protonix (8) Hypertension: Plan: Restart losartan tomorrow (9) Hyperlipidemia: Plan: CK today 1022, will hold statin Recheck CK in AM (10) COPD (chronic obstructive pulmonary disease): Plan: Continue home regimen as ordered Plan previous history of PE, is on warfarin for mitral valve replacement, low on presentation bridged with heparin Admission and Anticipated Discharge Date Admission Date: November 28, 2023 Subjective Patient reports no new symptoms. Review of Systems Review of Systems: All systems reviewed & are unremarkable except as noted in HPI & below Physical Exam Physical Exam: Patient is lying in bed. In no acute distress Results & Data Results & Data Vital Signs (Past 12 Hours) Vital Signs Temp Pulse Resp BP Pulse Ox O2 Del Method 12/02/23 20:20 36.6 C 64 18 136/75 96 Room Air 12/02/23 20:08 69 18 98 Room Air 12/02/23 16:12 36.5 C 68 16 103/57 L 93 Room Air 12/02/23 15:51 73 18 93 Room Air 12/02/23 13:02 77 16 94 Room Air PG Care Time/CCT Total # of Minutes Spent Total Time Spent with Patient: Total time spent is greater than 50% in coordination of care (as documented) at patient's floor/unit and/or counseling patient: Coding Level of Care Code 73137 SUB INP/OBS CARE 2/35MIN Diagnoses S/P spinal surgery Z98.890 Type 2 diabetes mellitus with obesity E11.69; E66.9 Chronic systolic (congestive) heart failure I50.22 History of mitral valve replacement with mechanical valve Z95.2 History of TIA (transient ischemic attack) Z86.73 Obstructive sleep apnea on CPAP G47.33; Z99.89 GERD (gastroesophageal reflux disease) K21.9 Essential hypertension I10 Hypertension type: essential hypertension Hyperlipidemia, unspecified hyperlipidemia type E78.5 Hyperlipidemia type: unspecified COPD (chronic obstructive pulmonary disease) J44.9 (8) Hypertension Hypertension type: essential hypertension Qualified Code(s): I10 - Essential (primary) hypertension (9) Hyperlipidemia Hyperlipidemia type: unspecified Qualified Code(s): E78.5 - Hyperlipidemia, unspecified
[2023-12-03 08:06] LABS: INR 2.9 (0.9-1.1); Prothrombin Time 30.1 Seconds (9.0-12.0)
--- NOTE | 2023-12-03 08:26 | Orthopedic Progress Note ---
Date of Service December 03, 2023 Assessment & Plan (1) Neurogenic claudication due to lumbar spinal stenosis: Plan: Deb is day 5 of readmittance status post lumbar fusion. Will continue with physical therapy today. Continue with pain control. Just currently waiting on rehab authorization. She is orthopedically stable. Admission and Anticipated Discharge Date Admission Date: November 28, 2023 Morgan Boyd is here for readmittance status post lumbar fusion secondary to pain and weakness. This is improving. Still has back pain but leg symptoms greatly improved. She is passing flatus. Yesterday in physical therapy ambulating 100 feet. Review of Systems Review of Systems: All systems reviewed & are unremarkable except as noted in HPI & below Physical Exam Physical Exam: Sitting on the edge of the bed eating breakfast no acute distress Alert and oriented x 3 calf soft nontender bilaterally strength intact bilateral lower extremities Results & Data Vital Signs (Past 12 Hours) Vital Signs Temp Pulse Pulse Resp BP Pulse Ox O2 Del Method 12/03/23 08:14 36.8 C 65 16 120/68 93 Room Air 12/03/23 07:26 69 18 96 Room Air 12/03/23 05:10 74 22 94 12/03/23 00:33 72 18 98 CPAP 12/02/23 22:19 72 14 96 O2 Flow Rate 12/03/23 08:14 12/03/23 07:26 12/03/23 05:10 2 12/03/23 00:33 2 12/02/23 22:19 2 Queries Orthopedic Spine Obesity: Yes
[2023-12-03] MEDS: LANTUS PER UNIT CHARGE SC SCH (08:40)
[2023-12-03] MEDS: POLYETHYLENE (MIRALAX) 17 GM PACK PO SCH (11:53)
--- NOTE | 2023-12-03 22:31 | Hospitalist Progress Note ---
Date of Service December 03, 2023 Assessment & Plan (1) S/P spinal surgery: Plan: pt underwent L3-S1 Decompression and Fusion 11/21/23, presents with back pain, imaging shows L# Transverse process fractures and fluid in ls area consistent with post op changes pain control and pt on surgery service, pt also has some le weakness since surgery. she has had several falls at home since surgery Patient with pain medication amended on 11/29 including addition of muscle r elaxants Eventual goal is to have patient go to rehab. (2) Type 2 diabetes mellitus with obesity: Plan: Home medications held Basal bolus, ISS Resume home regimen on discharge (3) Chronic systolic (congestive) heart failure: Plan: States taking 120mg lasix daily, typically in evening Appears euvolemic, patient's Lasix was inappropriately dosed in the med reconciliation. Patient typically takes 80 mg once a day. She was given 2 doses of 120 mg on 11/28. Subsequently will skip dose on 11/29 and restart her 80 mg in the morning of 11/30 discontinuing IV fluid continue metoprolol HF imporved EF (4) History of mitral valve replacement with mechanical valve: Plan: On warfarin, INR 1.5 today Recieved 1x warfarin dose load patient continues on warfarin 15 mg she typically takes 50 mg Monday and 10 mg all other days. Enoxaparin will be continued until therapeutic at least 2.5 or greater INR INR is 2.5 will give 15 mg today. (5) History of TIA (transient ischemic attack): Plan: Will continue ASA ok to stop lovenox (6) Obstructive sleep apnea on CPAP: Plan: CPAP ordered (7) GERD (gastroesophageal reflux disease): Plan: Continue protonix (8) Hypertension: Plan: Restart losartan tomorrow (9) Hyperlipidemia: Plan: CK today 1022, will hold statin Recheck CK in AM (10) COPD (chronic obstructive pulmonary disease): Plan: Continue home regimen as ordered Plan previous history of PE, is on warfarin for mitral valve replacement, low on presentation bridged with heparin Admission and Anticipated Discharge Date Admission Date: November 28, 2023 Subjective Patient reports having BM yesterday. Review of Systems Review of Systems: All systems reviewed & are unremarkable except as noted in HPI & below Physical Exam Physical Exam: Patient is lying in bed. In no acute distress Results & Data Results & Data Vital Signs (Past 12 Hours) Vital Signs Temp Pulse Pulse Resp BP BP Pulse Ox 12/03/23 22:00 69 20 98 12/03/23 20:46 36.4 C L 64 18 132/72 96 12/03/23 19:43 63 16 96 12/03/23 16:00 68 20 99 12/03/23 15:59 36.8 C 68 16 115/66 100 12/03/23 12:33 69 18 95 O2 Del Method O2 Flow Rate 12/03/23 22:00 2 12/03/23 20:46 Room Air 12/03/23 19:43 Room Air 12/03/23 16:00 Room Air 12/03/23 15:59 Room Air 12/03/23 12:33 Room Air PG Care Time/CCT Total # of Minutes Spent Total Time Spent with Patient: Total time spent is greater than 50% in coordination of care (as documented) at patient's floor/unit and/or counseling patient: Coding Level of Care Code 83953 SUB INP/OBS CARE 2/35MIN Diagnoses S/P spinal surgery Z98.890 Type 2 diabetes mellitus with obesity E11.69; E66.9 Chronic systolic (congestive) heart failure I50.22 History of mitral valve replacement with mechanical valve Z95.2 History of TIA (transient ischemic attack) Z86.73 Obstructive sleep apnea on CPAP G47.33; Z99.89 GERD (gastroesophageal reflux disease) K21.9 Essential hypertension I10 Hypertension type: essential hypertension Hyperlipidemia, unspecified hyperlipidemia type E78.5 Hyperlipidemia type: unspecified COPD (chronic obstructive pulmonary disease) J44.9 (8) Hypertension Hypertension type: essential hypertension Qualified Code(s): I10 - Essential (primary) hypertension (9) Hyperlipidemia Hyperlipidemia type: unspecified Qualified Code(s): E78.5 - Hyperlipidemia, unspecified
[2023-12-04 06:28] LABS: Hematocrit (blood only) 28.9 % (37.0-47.0); Hemoglobin 8.9 g/dl (12.0-16.0); Mean Corpuscular Hemoglobin 28.5 pg (25.0-34.0); Mean Corpuscular Hgb Conc 30.8 g/dL (32.0-36.0); Mean Corpuscular Volume 92.6 fL (80.0-100.0); Mean Platelet Volume 10.9 fL (9.4-12.4); Nucleated RBC # (auto) 0.05 K/uL (0.00-0.12); Nucleated RBC % (auto) 0.3 %; Platelet Count 473 K/uL (130-400); RDW Coefficient of Variation 17.7 % (11.5-14.5); RDW Standard Deviation 57.6 fL (36.4-46.3); Red Blood Count 3.12 M/uL (4.20-5.40); White Blood Count 16.31 K/ul (4.8-10.8)
[2023-12-04 06:43] LABS: Creatinine Clr Calc Pharmacy 93.7 ml/min; Est GFR (African American) 88.2 ml/min; Est GFR (Non-African American) 76.1 ml/min
[2023-12-04 07:22] LABS: INR 3.3 (0.9-1.1); Prothrombin Time 33.1 Seconds (9.0-12.0)
[2023-12-04] MEDS: LANTUS PER UNIT CHARGE SC SCH (08:54)
--- NOTE | 2023-12-04 09:25 | Pharmacy Report ---
Pharmacy Glycemic Short Note 2 - Date of Service December 04, 2023 - Glycemic Short BSG Results (Last 24 hours): 12/03/23 12/03/23 12/03/23 11:24 16:46 20:43 POC Glucose 107 H 254 H 167 H 12/04/23 07:37 POC Glucose 123 H OUTPATIENT ANTIDIABETIC REGIMEN: * Metformin 1000 mg PO BID * Trulicity 4.5 mg SC weekly (on Fridays) * HbA1c: 7.3% (11/30/23) ASSESSMENT: 12/03: * Blood sugars remain labile, ranging 91-254 mg/dL * Received 78 units of insulin yesterday (25 units of basal and 53 units of prandial/correctional bolus) + metformin 1 g PO BIDM * Will tighten Novolog and increase basal today. * No change to IV steroids. 12/02: * Deb received 104 units of insulin yesterday, 50 basal + 54 bolus. BSGs were: [phone] mg/dL. * Fasting BSG below goal at 95 mg/dL this AM. Will reduce basal by 40% to prevent hypoglycemia. * Will tighten Novolog again to previous regimen which reflects weight/stress of 3. * Continues on Dexamethasone 8 mg IV daily. 12/01: * IV steroids were initiated on pt the evening of 11/29. Pt experiencing steroid- induced hyperglycemia since then. * Lantus added yesterday and Novolog parameters were tightened. BSGs starting to resolve today. IV dexamethasone reduced from 8mg q12h to 8mg daily this morning. * Pharmacy will continue to follow and adjust regimen as indicated. Expect insulin requirements to decrease as steroids are tapered/discontinued. 11/29: * Patient admitted with post op pain, s/p spinal surgery 11/21. * BSGs [phone] mg/dL. Patient NPO at midnight, now ordered diet with lunch * Patient previously required tighter parameters/basal insulin on previous admission, however patient was also on dex 6 mg IV. * Will continue current ordered parameters weight based stress of 2 novolog, holding on Lantus as fasting 99 mg/dL this morning PLAN FOR INPATIENT GLYCEMIC CONTROL: * Metformin 1000 mg PO BIDM * Basal insulin * Lantus 35 units SC daily (if steroids discontinued, hold basal dose and call pharmacy at [phone]) * Bolus insulin * NovoLog per scale ACHS or Q6hrs while NPO * Goal Range: Low 110 mg/dL - High 140 mg/dL * Correction Factor: 12 mg/dL/unit * Nutritional / Prandial insulin per carb ratio of 1 unit per 4 grams CHO consumed
--- NOTE | 2023-12-04 09:45 | Orthopedic Progress Note ---
Date of Service December 04, 2023 Assessment & Plan (1) Neurogenic claudication due to lumbar spinal stenosis: Plan: Patient will continue with physical therapy. Awaiting placement to rehab when bed available. Admission and Anticipated Discharge Date Admission Date: November 28, 2023 Subjective Patient complaining only of back pain leg pain markedly improved. Tolerating physical therapy. Physical Exam Physical Exam: Patient is currently in bed. She has some tenderness palpation lumbar musculature. Good strength testing lower extremities. Results & Data Vital Signs (Past 12 Hours) Vital Signs Temp Pulse Pulse Pulse Resp BP Pulse Ox 12/04/23 08:25 36.8 C 86 20 152/94 H 95 12/04/23 07:41 74 18 96 12/04/23 06:13 36.4 C L 66 16 120/76 96 12/04/23 02:56 75 14 100 12/04/23 00:39 71 12 99 12/04/23 00:37 71 12 99 12/03/23 22:00 69 20 98 O2 Del Method O2 Flow Rate 12/04/23 08:25 Room Air 12/04/23 07:41 Room Air 12/04/23 06:13 Room Air 12/04/23 02:56 2 12/04/23 00:39 CPAP 2 12/04/23 00:37 2 12/03/23 22:00 2 Queries Orthopedic Spine Obesity: Yes
[2023-12-04] MEDS: WARFARIN SOD 10 MG TAB PO ONE (16:51)
--- NOTE | 2023-12-04 22:02 | Hospitalist Progress Note ---
Date of Service December 04, 2023 Assessment & Plan (1) S/P spinal surgery: Plan: pt underwent L3-S1 Decompression and Fusion 11/21/23, presents with back pain, imaging shows L# Transverse process fractures and fluid in ls area consistent with post op changes pain control and pt on surgery service, pt also has some le weakness since surgery. she has had several falls at home since surgery Patient with pain medication amended on 11/29 including addition of muscle r elaxants Eventual goal is to have patient go to rehab. (2) Type 2 diabetes mellitus with obesity: Plan: Home medications held Basal bolus, ISS Resume home regimen on discharge (3) Chronic systolic (congestive) heart failure: Plan: States taking 120mg lasix daily, typically in evening Appears euvolemic, patient's Lasix was inappropriately dosed in the med reconciliation. Patient typically takes 80 mg once a day. She was given 2 doses of 120 mg on 11/28. Subsequently will skip dose on 11/29 and restart her 80 mg in the morning of 11/30 discontinuing IV fluid continue metoprolol HF imporved EF (4) History of mitral valve replacement with mechanical valve: Plan: On warfarin, INR 1.5 today Recieved 1x warfarin dose load patient continues on warfarin 15 mg she typically takes 50 mg Monday and 10 mg all other days. Enoxaparin will be continued until therapeutic at least 2.5 or greater INR INR is at goal will give 1o mg today. (5) History of TIA (transient ischemic attack): Plan: Will continue ASA ok to stop lovenox (6) Obstructive sleep apnea on CPAP: Plan: CPAP ordered (7) GERD (gastroesophageal reflux disease): Plan: Continue protonix (8) Hypertension: Plan: Restart losartan tomorrow (9) Hyperlipidemia: Plan: CK today 1022, will hold statin Recheck CK in AM (10) COPD (chronic obstructive pulmonary disease): Plan: Continue home regimen as ordered Plan previous history of PE, is on warfarin for mitral valve replacement, low on presentation bridged with heparin Admission and Anticipated Discharge Date Admission Date: November 28, 2023 Subjective Patient reports no new symptoms. Patient had a BM today. Review of Systems Review of Systems: All systems reviewed & are unremarkable except as noted in HPI & below Physical Exam Physical Exam: Patient is currently in bed. She has some tenderness palpation lumbar mus culature. Good strength testing lower extremities. Results & Data Results & Data Vital Signs (Past 12 Hours) Vital Signs Temp Pulse Pulse Resp BP BP Pulse Ox 12/04/23 20:31 36.4 C L 84 20 144/60 H 94 12/04/23 19:10 71 20 95 12/04/23 15:09 36.6 C 63 16 117/69 96 12/04/23 13:15 87 18 96 12/04/23 11:51 36.9 C 72 16 128/71 95 O2 Del Method 12/04/23 20:31 Room Air 12/04/23 19:10 Room Air 12/04/23 15:09 Room Air 12/04/23 13:15 Room Air 12/04/23 11:51 Room Air PG Care Time/CCT Total # of Minutes Spent Total Time Spent with Patient: Total time spent is greater than 50% in coordination of care (as documented) at patient's floor/unit and/or counseling patient: Coding Level of Care Code 82414 SUB INP/OBS CARE 2/35MIN Diagnoses S/P spinal surgery Z98.890 Type 2 diabetes mellitus with obesity E11.69; E66.9 Chronic systolic (congestive) heart failure I50.22 History of mitral valve replacement with mechanical valve Z95.2 History of TIA (transient ischemic attack) Z86.73 Obstructive sleep apnea on CPAP G47.33; Z99.89 GERD (gastroesophageal reflux disease) K21.9 Essential hypertension I10 Hypertension type: essential hypertension Hyperlipidemia, unspecified hyperlipidemia type E78.5 Hyperlipidemia type: unspecified COPD (chronic obstructive pulmonary disease) J44.9 (8) Hypertension Hypertension type: essential hypertension Qualified Code(s): I10 - Essential (primary) hypertension (9) Hyperlipidemia Hyperlipidemia type: unspecified Qualified Code(s): E78.5 - Hyperlipidemia, unspecified
[2023-12-05] MEDS: CARBOHYDRATES FOR HYPOGLYCEMIA PO PRN (11:40)
--- NOTE | 2023-12-05 11:50 | Orthopedic Progress Note ---
Date of Service December 05, 2023 Assessment & Plan (1) Neurogenic claudication due to lumbar spinal stenosis: Plan: At this time we will continue physical therapy and await rehab placement. Admission and Anticipated Discharge Date Admission Date: November 28, 2023 Subjective Patient still complaining of back pain but tolerating physical therapy. Physical Exam Physical Exam: Patient is currently in bed. Is for strength testing. Results & Data Vital Signs (Past 12 Hours) Vital Signs Temp Pulse Pulse Resp BP Pulse Ox O2 Del Method 12/05/23 11:06 81 20 91 Room Air 12/05/23 07:40 Room Air 12/05/23 07:28 74 18 96 Room Air 12/05/23 07:22 36.7 C 75 18 148/66 H 96 Room Air 12/05/23 00:35 66 20 99 12/05/23 00:34 66 20 99 CPAP O2 Flow Rate 12/05/23 11:06 12/05/23 07:40 12/05/23 07:28 12/05/23 07:22 12/05/23 00:35 2 12/05/23 00:34 2 Queries Orthopedic Spine Obesity: Yes
[2023-12-05] MEDS: INSULIN ASPART PER UNIT CHARGE SC SCH (14:10)
--- NOTE | 2023-12-05 14:10 | Pharmacy Report ---
Pharmacy Glycemic Short Note 2 - Date of Service December 05, 2023 - Glycemic Short BSG Results (Last 24 hours): 12/04/23 12/04/23 12/04/23 16:37 16:38 20:27 POC Glucose 332 H* 303 H* 120 H 12/05/23 12/05/23 12/05/23 07:40 11:37 11:54 POC Glucose 89 66 L* 56 L* 12/05/23 12/05/23 12/05/23 12:14 12:40 13:59 POC Glucose 57 L* 131 H 348 H* OUTPATIENT ANTIDIABETIC REGIMEN: * Metformin 1000 mg PO BID * Trulicity 4.5 mg SC weekly (on Fridays) * HbA1c: 7.3% (11/30/23) ASSESSMENT: 12/05: * BSGs continue to be erratic: 579-932-09-66-348mg/dL the last 24h. Received 30 units of basal and 76 units of bolus insulin yesterday. * Continues on dex 8mg IV daily. Tolerating diet. * Planned to decrease basal today as fasting is trending down, however dose was given prior to modification. Will decrease to 25 units tomorrow AM. Novolog loosened to 15/5 as BSGs have been low all morning today. 12/03: * Blood sugars remain labile, ranging 91-254 mg/dL * Received 78 units of insulin yesterday (25 units of basal and 53 units of prandial/correctional bolus) + metformin 1 g PO BIDM * Will tighten Novolog and increase basal today. * No change to IV steroids. 12/02: * Deb received 104 units of insulin yesterday, 50 basal + 54 bolus. BSGs were: 425-373-260-215 mg/dL. * Fasting BSG below goal at 95 mg/dL this AM. Will reduce basal by 40% to prevent hypoglycemia. * Will tighten Novolog again to previous regimen which reflects weight/stress of 3. * Continues on Dexamethasone 8 mg IV daily. 12/01: * IV steroids were initiated on pt the evening of 11/29. Pt experiencing steroid- induced hyperglycemia since then. * Lantus added yesterday and Novolog parameters were tightened. BSGs starting to resolve today. IV dexamethasone reduced from 8mg q12h to 8mg daily this morning. * Pharmacy will continue to follow and adjust regimen as indicated. Expect insulin requirements to decrease as steroids are tapered/discontinued. 11/29: * Patient admitted with post op pain, s/p spinal surgery 11/21. * BSGs 236-910-759-74-99-142 mg/dL. Patient NPO at midnight, now ordered diet with lunch * Patient previously required tighter parameters/basal insulin on previous admission, however patient was also on dex 6 mg IV. * Will continue current ordered parameters weight based stress of 2 novolog, holding on Lantus as fasting 99 mg/dL this morning PLAN FOR INPATIENT GLYCEMIC CONTROL: * Metformin 1000 mg PO BIDM * Basal insulin * Lantus 25 units SC daily (if steroids discontinued, hold basal dose and call pharmacy at [phone]) * Bolus insulin * NovoLog per scale ACHS or Q6hrs while NPO * Goal Range: Low 110 mg/dL - High 140 mg/dL * Correction Factor: 15 mg/dL/unit * Nutritional / Prandial insulin per carb ratio of 1 unit per 5 grams CHO consumed
[2023-12-05] MEDS: INSULIN ASPART PER UNIT CHARGE SC ONE (14:16)
[2023-12-05] MEDS: WARFARIN SOD 10 MG TAB PO ONE (23:58)
[2023-12-06 07:03] LABS: INR 2.3 (0.9-1.1); Prothrombin Time 23.6 Seconds (9.0-12.0)
[2023-12-06] MEDS: LANTUS PER UNIT CHARGE SC SCH (08:48)
--- NOTE | 2023-12-06 11:32 | Orthopedic Progress Note ---
Date of Service December 06, 2023 Assessment & Plan (1) Neurogenic claudication due to lumbar spinal stenosis: Plan: At this time we are waiting approval for rehab. Hopefully this will be as soon as tomorrow. Admission and Anticipated Discharge Date Admission Date: November 28, 2023 Subjective Patient resting comfortably. Physical Exam Physical Exam: Patient is currently asleep. She has not mask in place. She is tolerating physical therapy per the notes. Results & Data Vital Signs (Past 12 Hours) Vital Signs Temp Pulse Pulse Resp BP BP Pulse Ox 12/06/23 08:17 78 130/72 12/06/23 07:30 12/06/23 06:59 36.5 C 63 16 146/73 H 93 12/06/23 05:55 14 100 12/06/23 05:55 65 14 100 12/06/23 01:06 60 18 99 12/06/23 01:06 60 19 99 O2 Del Method O2 Flow Rate 12/06/23 08:17 12/06/23 07:30 Room Air 12/06/23 06:59 Room Air 12/06/23 05:55 CPAP 2 12/06/23 05:55 2 12/06/23 01:06 CPAP 2 12/06/23 01:06 2 Queries Orthopedic Spine Obesity: Yes
--- NOTE | 2023-12-06 12:33 | Pharmacy Report ---
Pharmacy Glycemic Short Note 2 - Date of Service December 06, 2023 - Glycemic Short BSG Results (Last 24 hours): 12/05/23 12/05/23 12/05/23 12:14 12:40 13:59 POC Glucose 57 L* 131 H 348 H* 12/05/23 12/05/23 12/06/23 16:22 20:06 07:46 POC Glucose 353 H* 208 H 142 H 12/06/23 11:37 POC Glucose 117 H OUTPATIENT ANTIDIABETIC REGIMEN: * Metformin 1000 mg PO BID * Trulicity 4.5 mg SC weekly (on Fridays) * HbA1c: 7.3% (11/30/23) ASSESSMENT: 12/06: * BSGs 015-464-179-117mg/dl the last 24h. Received 30 units of basal and 53 units of bolus insulin yesterday. * Tolerating diet- continues on dex 8mg IV daily. * Lantus decreased to 25 units this AM although within goal today. Will continue with this for now until additional fasting data available. Continue same Novolog parameters. 12/05: * BSGs continue to be erratic: 799-096-88-66-348mg/dL the last 24h. Received 30 units of basal and 76 units of bolus insulin yesterday. * Continues on dex 8mg IV daily. Tolerating diet. * Planned to decrease basal today as fasting is trending down, however dose was given prior to modification. Will decrease to 25 units tomorrow AM. Novolog loosened to 15/5 as BSGs have been low all morning today. 12/03: * Blood sugars remain labile, ranging 91-254 mg/dL * Received 78 units of insulin yesterday (25 units of basal and 53 units of prandial/correctional bolus) + metformin 1 g PO BIDM * Will tighten Novolog and increase basal today. * No change to IV steroids. 12/02: * Deb received 104 units of insulin yesterday, 50 basal + 54 bolus. BSGs were: 503-586-996-215 mg/dL. * Fasting BSG below goal at 95 mg/dL this AM. Will reduce basal by 40% to prevent hypoglycemia. * Will tighten Novolog again to previous regimen which reflects weight/stress of 3. * Continues on Dexamethasone 8 mg IV daily. 12/01: * IV steroids were initiated on pt the evening of 11/29. Pt experiencing steroid- induced hyperglycemia since then. * Lantus added yesterday and Novolog parameters were tightened. BSGs starting to resolve today. IV dexamethasone reduced from 8mg q12h to 8mg daily this morning. * Pharmacy will continue to follow and adjust regimen as indicated. Expect insulin requirements to decrease as steroids are tapered/discontinued. 11/29: * Patient admitted with post op pain, s/p spinal surgery 11/21. * BSGs [phone] mg/dL. Patient NPO at midnight, now ordered diet with lunch * Patient previously required tighter parameters/basal insulin on previous admission, however patient was also on dex 6 mg IV. * Will continue current ordered parameters weight based stress of 2 novolog, holding on Lantus as fasting 99 mg/dL this morning PLAN FOR INPATIENT GLYCEMIC CONTROL: * Metformin 1000 mg PO BIDM * Basal insulin * Lantus 25 units SC daily (if steroids discontinued, hold basal dose and call pharmacy at [phone]) * Bolus insulin * NovoLog per scale ACHS or Q6hrs while NPO * Goal Range: Low 110 mg/dL - High 140 mg/dL * Correction Factor: 15 mg/dL/unit * Nutritional / Prandial insulin per carb ratio of 1 unit per 5 grams CHO consumed
[2023-12-06] MEDS: WARFARIN SOD 10 MG TAB PO SCH (16:45)
[2023-12-06] MEDS: WARFARIN SOD 5 MG TAB PO ONE (17:30)
--- NOTE | 2023-12-06 23:38 | Hospitalist Progress Note ---
Date of Service December 06, 2023 Assessment & Plan (1) S/P spinal surgery: Plan: pt underwent L3-S1 Decompression and Fusion 11/21/23, presents with back pain, imaging shows L# Transverse process fractures and fluid in ls area consistent with post op changes pain control and pt on surgery service, pt also has some le weakness since surgery. she has had several falls at home since surgery Patient with pain medication amended on 11/29 including addition of muscle r elaxants Eventual goal is to have patient go to rehab. (2) Type 2 diabetes mellitus with obesity: Plan: Home medications resumed (3) Chronic systolic (congestive) heart failure: Plan: States taking 120mg lasix daily, typically in evening Appears euvolemic, patient's Lasix was inappropriately dosed in the med reconciliation. Patient typically takes 80 mg once a day. She was given 2 doses of 120 mg on 11/28. Subsequently will skip dose on 11/29 and restart her 80 mg in the morning of 11/30 discontinuing IV fluid continue metoprolol HF imporved EF (4) History of mitral valve replacement with mechanical valve: Plan: takes 10 mg Monday and 15 mg all other days. INR suntherapeutic (5) History of TIA (transient ischemic attack): Plan: Will continue ASA (6) Obstructive sleep apnea on CPAP: Plan: CPAP ordered (7) GERD (gastroesophageal reflux disease): Plan: Continue protonix (8) Hypertension: Plan: bp meds resumed (9) Hyperlipidemia: Plan: resumed statin (10) COPD (chronic obstructive pulmonary disease): Plan: Continue home regimen as ordered Plan previous history of PE, is on warfarin for mitral valve replacement, low on presentation bridged with heparin Medicine signed off, but will monitor INR> Admission and Anticipated Discharge Date Admission Date: November 28, 2023 Subjective Resting comfortably. Review of Systems Review of Systems: All systems reviewed & are unremarkable except as noted in HPI & below Physical Exam Physical Exam: Patient is currently in bed. She has some tenderness palpation lumbar musculature. Good strength testing lower extremities. Results & Data Results & Data Vital Signs (Past 12 Hours) Vital Signs Temp Pulse Resp BP Pulse Ox O2 Del Method 12/06/23 21:03 BiPAP 12/06/23 20:51 36.6 C 74 18 153/72 H Room Air 12/06/23 18:18 16 97 Room Air 12/06/23 14:07 36.7 C 61 16 139/71 94 Room Air 12/06/23 12:22 75 14 98 Nasal Cannula PG Care Time/CCT Total # of Minutes Spent Total Time Spent with Patient: Total time spent is greater than 50% in coordination of care (as documented) at patient's floor/unit and/or counseling patient: Coding Level of Care Code 97207 SUB INP/OBS CARE 2/35MIN Diagnoses S/P spinal surgery Z98.890 Type 2 diabetes mellitus with obesity E11.69; E66.9 Chronic systolic (congestive) heart failure I50.22 History of mitral valve replacement with mechanical valve Z95.2 History of TIA (transient ischemic attack) Z86.73 Obstructive sleep apnea on CPAP G47.33; Z99.89 GERD (gastroesophageal reflux disease) K21.9 Essential hypertension I10 Hypertension type: essential hypertension Hyperlipidemia, unspecified hyperlipidemia type E78.5 Hyperlipidemia type: unspecified COPD (chronic obstructive pulmonary disease) J44.9 (8) Hypertension Hypertension type: essential hypertension Qualified Code(s): I10 - Essential (primary) hypertension (9) Hyperlipidemia Hyperlipidemia type: unspecified Qualified Code(s): E78.5 - Hyperlipidemia, unspecified
[2023-12-07 07:25] LABS: Hematocrit (blood only) 32.3 % (37.0-47.0); Hemoglobin 9.7 g/dl (12.0-16.0); Mean Corpuscular Volume 93.4 fL (80.0-100.0); Mean Platelet Volume 10.8 fL (9.4-12.4); Platelet Count 573 K/uL (130-400); RDW Coefficient of Variation 17.9 % (11.5-14.5); RDW Standard Deviation 59.6 fL (36.4-46.3); Red Blood Count 3.46 M/uL (4.20-5.40); White Blood Count 14.84 K/ul (4.8-10.8)
[2023-12-07 07:44] LABS: Creatinine Clr Calc Pharmacy 93.7 ml/min; Est GFR (African American) 88.2 ml/min; Est GFR (Non-African American) 76.1 ml/min
--- NOTE | 2023-12-07 08:16 | Hospitalist Progress Note ---
Date of Service December 07, 2023 Assessment & Plan (1) S/P spinal surgery: Plan: pt underwent L3-S1 Decompression and Fusion 11/21/23, presents with back pain, imaging shows L3 Transverse process fractures and fluid in ls area consistent with post op changes pain control and pt on surgery service, pt also has some le weakness since surgery. she has had several falls at home since surgery Patient with pain medication amended on 11/29 including addition of muscle r elaxants Eventual goal is to have patient go to rehab. (2) Type 2 diabetes mellitus with obesity: Plan: basal bolus insulin, plus metformin, watch with use of steroids (3) Chronic systolic (congestive) heart failure: Plan: States taking 120mg lasix daily, typically in evening Appears euvolemic, patient's Lasix was inappropriately dosed in the med reconciliation. Patient typically takes 80 mg once a day. She was given 2 doses of 120 mg on 11/28. Subsequently will skip dose on 11/29 and restart her 80 mg in the morning of 11/30 discontinuing IV fluid continue metoprolol HF imporved EF (4) History of mitral valve replacement with mechanical valve: Plan: takes 10 mg Monday and 15 mg all other days. INR suntherapeutic 12/06 (5) History of TIA (transient ischemic attack): Plan: Will continue ASA (6) Obstructive sleep apnea on CPAP: Plan: CPAP ordered (7) GERD (gastroesophageal reflux disease): Plan: Continue protonix (8) Hypertension: Plan: bp meds resumed (9) Hyperlipidemia: Plan: resumed statin (10) COPD (chronic obstructive pulmonary disease): Plan: Continue home regimen as ordered Plan previous history of PE, is on warfarin for mitral valve replacement, low on presentation bridged with heparin Medicine signed off, but will monitor INR> Admission and Anticipated Discharge Date Admission Date: November 28, 2023 Results & Data Results & Data Vital Signs (Past 12 Hours) Vital Signs Temp Pulse Pulse Resp BP BP Pulse Ox 12/07/23 07:21 68 18 96 12/07/23 07:20 12/07/23 07:11 71 17 136/75 99 12/07/23 02:12 66 14 97 12/07/23 02:12 77 14 96 12/06/23 23:57 63 23 99 12/06/23 21:03 12/06/23 20:51 97.9 F 74 18 153/72 H O2 Del Method O2 Flow Rate 12/07/23 07:21 Room Air 12/07/23 07:20 Room Air 12/07/23 07:11 Room Air 12/07/23 02:12 2 12/07/23 02:12 CPAP 2 12/06/23 23:57 2 12/06/23 21:03 BiPAP 12/06/23 20:51 Room Air PG Care Time/CCT Total # of Minutes Spent Total Time Spent with Patient: Total time spent is greater than 50% in coordination of care (as documented) at patient's floor/unit and/or counseling patient: Coding Diagnoses S/P spinal surgery Z98.890 Type 2 diabetes mellitus with obesity E11.69; E66.9 Chronic systolic (congestive) heart failure I50.22 History of mitral valve replacement with mechanical valve Z95.2 History of TIA (transient ischemic attack) Z86.73 Obstructive sleep apnea on CPAP G47.33; Z99.89 GERD (gastroesophageal reflux disease) K21.9 Essential hypertension I10 Hypertension type: essential hypertension Hyperlipidemia, unspecified hyperlipidemia type E78.5 Hyperlipidemia type: unspecified COPD (chronic obstructive pulmonary disease) J44.9 (8) Hypertension Hypertension type: essential hypertension Qualified Code(s): I10 - Essential (primary) hypertension (9) Hyperlipidemia Hyperlipidemia type: unspecified Qualified Code(s): E78.5 - Hyperlipidemia, unspecified
--- NOTE | 2023-12-07 08:16 | Orthopedic Progress Note ---
Date of Service December 07, 2023 Assessment & Plan (1) Neurogenic claudication due to lumbar spinal stenosis: Plan: At this time we are waiting for rehab placement. This can occur today or tomorrow. Admission and Anticipated Discharge Date Admission Date: November 28, 2023 Subjective Back pain controlled leg pain improving tolerating physical therapy. Physical Exam Physical Exam: Patient is in the chair at the bedside. She is comfortable. Is good strength testing. Results & Data Vital Signs (Past 12 Hours) Vital Signs Temp Pulse Pulse Resp BP BP Pulse Ox 12/07/23 07:21 68 18 96 12/07/23 07:20 12/07/23 07:11 71 17 136/75 99 12/07/23 02:12 66 14 97 12/07/23 02:12 77 14 96 12/06/23 23:57 63 23 99 12/06/23 21:03 12/06/23 20:51 36.6 C 74 18 153/72 H O2 Del Method O2 Flow Rate 12/07/23 07:21 Room Air 12/07/23 07:20 Room Air 12/07/23 07:11 Room Air 12/07/23 02:12 2 12/07/23 02:12 CPAP 2 12/06/23 23:57 2 12/06/23 21:03 BiPAP 12/06/23 20:51 Room Air Queries Orthopedic Spine Obesity: Yes
[2023-12-07 10:26] LABS: INR 2.5 (0.9-1.1); Prothrombin Time 26.2 Seconds (9.0-12.0)
--- NOTE | 2023-12-07 15:00 | Pharmacy Report ---
Pharmacy Glycemic Short Note 2 - Date of Service December 07, 2023 - Glycemic Short BSG Results (Last 24 hours): 12/06/23 12/06/23 12/06/23 15:01 16:29 20:34 POC Glucose 243 H 266 H 83 12/07/23 12/07/23 12/07/23 07:54 11:41 11:42 POC Glucose 105 H 44 L* 46 L* 12/07/23 12:01 POC Glucose 78 OUTPATIENT ANTIDIABETIC REGIMEN: * Metformin 1000 mg PO BID * Trulicity 4.5 mg SC weekly (on Fridays) * HbA1c: 7.3% (11/30/23) ASSESSMENT: 12/07: * Dexamethasone IV was discontinued this morning. Patient received 25 units basal insulin and stress of 3 Novolog parameters this morning which was ord ered for the steroids. Since the Dexamethasone was discontinued, patient became hypoglycemic at lunch time with all the insulin she received this morning. * Novolog parameters loosened. Basal insulin discontinued, will re-assess new dose tomorrow AM. 12/06: * BSGs 023-654-530-117mg/dl the last 24h. Received 30 units of basal and 53 units of bolus insulin yesterday. * Tolerating diet- continues on dex 8mg IV daily. * Lantus decreased to 25 units this AM although within goal today. Will continue with this for now until additional fasting data available. Continue same Novolog parameters. 12/05: * BSGs continue to be erratic: 779-671-72-66-348mg/dL the last 24h. Received 30 units of basal and 76 units of bolus insulin yesterday. * Continues on dex 8mg IV daily. Tolerating diet. * Planned to decrease basal today as fasting is trending down, however dose was given prior to modification. Will decrease to 25 units tomorrow AM. Novolog loosened to 15/5 as BSGs have been low all morning today. 12/03: * Blood sugars remain labile, ranging 91-254 mg/dL * Received 78 units of insulin yesterday (25 units of basal and 53 units of prandial/correctional bolus) + metformin 1 g PO BIDM * Will tighten Novolog and increase basal today. * No change to IV steroids. 12/02: * Deb received 104 units of insulin yesterday, 50 basal + 54 bolus. BSGs were: 430-164-608-215 mg/dL. * Fasting BSG below goal at 95 mg/dL this AM. Will reduce basal by 40% to prevent hypoglycemia. * Will tighten Novolog again to previous regimen which reflects weight/stress of 3. * Continues on Dexamethasone 8 mg IV daily. 12/01: * IV steroids were initiated on pt the evening of 11/29. Pt experiencing steroid- induced hyperglycemia since then. * Lantus added yesterday and Novolog parameters were tightened. BSGs starting to resolve today. IV dexamethasone reduced from 8mg q12h to 8mg daily this morning. * Pharmacy will continue to follow and adjust regimen as indicated. Expect insulin requirements to decrease as steroids are tapered/discontinued. 11/29: * Patient admitted with post op pain, s/p spinal surgery 11/21. * BSGs 054-896-193-74-99-142 mg/dL. Patient NPO at midnight, now ordered diet with lunch * Patient previously required tighter parameters/basal insulin on previous admission, however patient was also on dex 6 mg IV. * Will continue current ordered parameters weight based stress of 2 novolog, holding on Lantus as fasting 99 mg/dL this morning PLAN FOR INPATIENT GLYCEMIC CONTROL: * Metformin 1000 mg PO BIDM * Basal insulin * Lantus 25 units SC this AM. Discontinued. * Bolus insulin * NovoLog per scale ACHS or Q6hrs while NPO * Goal Range: Low 110 mg/dL - High 140 mg/dL * Correction Factor: 30 mg/dL/unit * Nutritional / Prandial insulin per carb ratio of 1 unit per 10 grams CHO consumed
[2023-12-07] MEDS: WARFARIN SOD 7.5 MG TAB PO SCH (16:18)
[2023-12-08 09:03] LABS: Prothrombin Time 30.2 Seconds (9.0-12.0)
[2023-12-08] MEDS: LANTUS PER UNIT CHARGE SC SCH (09:16)
--- NOTE | 2023-12-08 09:32 | Orthopedic Progress Note ---
Date of Service December 08, 2023 Assessment & Plan (1) Lumbar spinal stenosis: Plan: At this time awaiting for long-term versus rehab placement. She is stable for discharge. Admission and Anticipated Discharge Date Admission Date: November 28, 2023 Subjective Patient continues to complain of limiting back pain. She is tolerating physical therapy. Physical Exam Physical Exam: On exam she is currently in bed. Is good strength testing. Results & Data Vital Signs (Past 12 Hours) Vital Signs Temp Pulse Pulse Resp BP Pulse Ox O2 Del Method 12/08/23 07:55 36.6 C 73 16 109/61 98 Room Air, Nebulizer 12/08/23 07:42 68 16 96 Room Air 12/08/23 03:20 17 12/08/23 00:28 62 13 97 CPAP 12/08/23 00:28 62 13 97 O2 Flow Rate 12/08/23 07:55 12/08/23 07:42 12/08/23 03:20 2 12/08/23 00:28 2 12/08/23 00:28 2 Queries Orthopedic Spine Obesity: Yes
--- NOTE | 2023-12-08 14:24 | Pharmacy Report ---
Pharmacy Glycemic Short Note 2 - Date of Service December 08, 2023 - Glycemic Short BSG Results (Last 24 hours): 12/07/23 12/07/23 12/08/23 16:43 20:24 07:47 POC Glucose 154 H 96 100 H 12/08/23 12/08/23 12/08/23 11:41 11:42 12:00 POC Glucose 53 L* 52 L* 73 12/08/23 12:37 POC Glucose 152 H OUTPATIENT ANTIDIABETIC REGIMEN: * Metformin 1000 mg PO BID * Trulicity 4.5 mg SC weekly (on Fridays) * HbA1c: 7.3% (11/30/23) ASSESSMENT: 12/08: * Fasting BSG was 100 mg/dl this AM. Reduced dose of 10 units of basal insulin given this morning. * Pre-lunch BSG was low again = 52 mg/dl. Asked nurse to not give any Novolog insulin for lunch. * Basal insulin discontinued and Novolog carb ratio loosened further. 12/07: * Dexamethasone IV was discontinued this morning. Patient received 25 units b chandrakant insulin and stress of 3 Novolog parameters this morning which was ordered for the steroids. Since the Dexamethasone was discontinued, patient became hypoglycemic at lunch time with all the insulin she received this morning. * Novolog parameters loosened. Basal insulin discontinued, will re-assess new dose tomorrow AM. 12/06: * BSGs 113-193-376-117mg/dl the last 24h. Received 30 units of basal and 53 units of bolus insulin yesterday. * Tolerating diet- continues on dex 8mg IV daily. * Lantus decreased to 25 units this AM although within goal today. Will continue with this for now until additional fasting data available. Continue same Novolog parameters. 12/05: * BSGs continue to be erratic: [id number]/dL the last 24h. Received 30 units of basal and 76 units of bolus insulin yesterday. * Continues on dex 8mg IV daily. Tolerating diet. * Planned to decrease basal today as fasting is trending down, however dose was given prior to modification. Will decrease to 25 units tomorrow AM. Novolog loosened to 15/5 as BSGs have been low all morning today. 12/03: * Blood sugars remain labile, ranging 91-254 mg/dL * Received 78 units of insulin yesterday (25 units of basal and 53 units of p randial/correctional bolus) + metformin 1 g PO BIDM * Will tighten Novolog and increase basal today. * No change to IV steroids. 12/02: * Deb received 104 units of insulin yesterday, 50 basal + 54 bolus. BSGs were: [phone] mg/dL. * Fasting BSG below goal at 95 mg/dL this AM. Will reduce basal by 40% to prevent hypoglycemia. * Will tighten Novolog again to previous regimen which reflects weight/stress of 3. * Continues on Dexamethasone 8 mg IV daily. 12/01: * IV steroids were initiated on pt the evening of 11/29. Pt experiencing steroid- induced hyperglycemia since then. * Lantus added yesterday and Novolog parameters were tightened. BSGs starting to resolve today. IV dexamethasone reduced from 8mg q12h to 8mg daily this morning. * Pharmacy will continue to follow and adjust regimen as indicated. Expect insulin requirements to decrease as steroids are tapered/discontinued. 11/29: * Patient admitted with post op pain, s/p spinal surgery 11/21. * BSGs [phone] mg/dL. Patient NPO at midnight, now ordered diet with lunch * Patient previously required tighter parameters/basal insulin on previous admission, however patient was also on dex 6 mg IV. * Will continue current ordered parameters weight based stress of 2 novolog, holding on Lantus as fasting 99 mg/dL this morning PLAN FOR INPATIENT GLYCEMIC CONTROL: * Metformin 1000 mg PO BIDM * Basal insulin * Lantus 10 units x1 in AM. Discontinued Lantus due to hypoglycemia. * Bolus insulin: Loosened carb ratio * NovoLog per scale ACHS or Q6hrs while NPO * Goal Range: Low 110 mg/dL - High 140 mg/dL * Correction Factor: 30 mg/dL/unit * Nutritional / Prandial insulin per carb ratio of 1 unit per 12 grams CHO consumed
[2023-12-09 06:57] LABS: INR 2.8 (0.9-1.1); Prothrombin Time 29.1 Seconds (9.0-12.0)
--- NOTE | 2023-12-09 10:59 | Discharge Summary ---
Date of Service December 09, 2023 Admission HPI Per Admitting Provider This is a 58-year-old female known to me that presents status post multilevel lumbar decompression and fusion with continued back pain. She describes symptoms radiating down her bilateral thighs not below her knees with activity. This progressed throughout the weekend. Today she is still struggling with motion and getting to a chair. She is followed strength of the lower extremities. Principal Diagnosis Lumbar spinal stenosis with neurogenic claudication Discharge Data Allergies Allergy/AdvReac Type Severity Reaction Status Date / Time No Known Allergies Allergy Verified 11/14/23 09:40 Consultations 11/28/23 13:28 ED Decision to Admit Stat 11/28/23 16:16 Consult Internal Medicine Routine Ordered Studies 11/28/23 13:07 CT abd pelvis IV con only Stat CT lumbar spine w con Stat Hospital Course (1) S/P spinal surgery: Patient was admitted postoperatively with significant back pain. She spent the week working with physical therapy occupational therapy improving her mobility and function. Bed was eventually available at rehab and she was discharged. Discharge orders instructions found in chart for review. Total Time Total Time Spent Total Time Spent (In Minutes): 20 minutes Discharge Plan Discharge Items Patient Disposition: Transfer Inpatient Rehab Fac Reason For Visit: SURGERY Discharge Diagnosis: Status post multilevel lumbar decompression fusion Activity: As commented below Lifting: No more than 5 pounds Bathing Comment: may shower 12/02 Exercise/Sports: None Weightbearing: Full weightbearing Non-emergency contact: Primary Care Provider Call non-emergency contact if: you have any medication questions Follow-up/Referrals: Sugar Weber MD [Primary Care Provider] - 12/15/23 11:00 am Diet: Carb Count or DM1 Addtl Attending Provider Instructions: ACTIVITY RECOMMENDATIONS: SELF CARE INSTRUCTIONS AFTER THORACIC/LUMBAR FUSIONS 1. You may walk to your tolerance. It is good exercise for your legs and back. Expect some back and intermittent leg aches and pains. 2. You may perform "counter-top" level activities (make a sandwich, noemi with a project, etc.). 3. No bending or lifting of more than 10 pounds or back twisting of any nature (roll like a log when turning in bed). 4. You may ride in a car for 20-30 minutes at a time. No driving until after your first visit with your doctor. 5. Frequent changes of position and restricting sitting to 30 minutes at a time will help limit the amount of back spasms and stiffness you may experience. 6. You may discontinue the use of ambulatory aids (cane, crutches, etc.) once your strength and confidence allow. 7. You may long wall mining machine helper the shower and let water strike your incision when you arrive home at least once daily. Do not take a tub bath, sit in a hot tub or go into a swimming pool until after your first recheck in the office. SPECIAL CARE INSTRUCTIONS: VERY IMPORTANT TO READ AND REVIEW A. Your surgical incision has been closed with a cosmetic suture under the skin that will dissolve in about 6 weeks. In 14 days, you can use a pair of clean scissors and cut the suture that is left outside of the skin at the ends of your incision. 1. The small skin tapes can be removed 7 days after surgery if they have not fallen off by that point. 2. You may keep the wound open to air as much as possible to promote healing after post-op day number 5 unless told otherwise by your doctor. 3. If you think the wound looks like it is becoming infected (redness or worsening drainage) and/or you are experiencing fever, chill or worsening back pain and muscle spasms, contact the office so that we may evaluate you as soon as possible. B. Complications are uncommon, but please contact us if you have any signs or symptoms of: 1. wound infection (fever higher than 102.5 degrees F, redness, separation of wound, drainage, or increasing pain from the incision) 2. blood clots in legs (pain, swelling, redness and warmth in legs) 3. urinary tract infection (fever higher than 102.5 degrees F, burning upon urination or increased frequency of urination) 4. nerve problems (inability to walk on your toes or heels, numbness, loss of bowel or bladder control) 5. any other symptoms that concern you C. Please call the office at if you have any concerns or questions about your operation or recovery. D. No smoking! Smoking drastically decreases the chance of a solid fusion. E. Do not take any anti-inflammatory medications (Indocin, Advil, Motrin, Aspirin, Naprosyn, etc.) as these may inhibit the chance of a solid fusion. Tylenol is okay to take for pain. MANAGING PAIN AFTER SPINAL SURGERY 1. Narcotic medication is intended for short-term use and will be provided for surgical pain. Surgical pain usually lasts for a period of 4-6 weeks. Narcotic medication includes Percocet, Vicodin, Darvocet, Tylenol #3 or Lortab. 2. Longer-term pain is more appropriately treated with non-narcotic medication such as Tylenol ES. 3. Muscle spasm is not appropriately treated with narcotics. Muscle relaxers such as Soma, Flexeril or Skelaxin can be used along with Tylenol ES. 4. Remember that we all live with some "aches and pains". This is not unusual or uncommon after an injury or as we get older. a. Back pain is expected and may include muscle spasms for 4 to 6 weeks after surgery. The pain should gradually improve. If the pain worsens for no apparent reason, please contact the office. b. Intermittent leg pain may also be experienced and should not be concerned about unless it worsens for no apparent reason. If so, please contact the office. 5. We will provide appropriate medication within the normal guidelines of their prescribed use. We will also be very cautious and aware of potential abuse and extended duration of patients' medication needs. a. Pain medications are for your comfort and to assist with sleep and rest so that the tissue can heal. They are not provided in order to return to normal activity and should not be used through the day. To do so or worsening pain at night can result from ongoing tissue damage and development of tolerance to the prescribed medicine. 6. Please allow 2-3 days to process refills. Prescriptions will not be mailed but must be picked up at the office. FOLLOW UP VISIT: Keep your scheduled follow-up appointment. Any questions, please call the office at . Pending Studies at Discharge: No Stand-Alone Forms: [facility] Skilled Items Patient informed of condition?: Yes DNR: No Discharge Level of Care: Skilled Communicable Disease: No Discharge Prognosis: Improving Lines: None Urinary Catheter: No Medications and DC Order Prescriptions: New oxycodone 5 mg tablet 5 mg PO Q6H PRN (Reason: pain) Qty: 30 0RF Continued (DME) Hospital Bed Homecare Misc See Rx Instructions .Route Qty: 1 0RF Rx Instructions: As directed-HOSPITAL BED, LENGTH OF NEED 99 MONTHS, DX CODE; Z98.890 Proctofoam HC 1-1 % foam 1 applic UT BID PRN (Reason: hemorrhoids) Qty: 10 0RF Atrovent HFA 17 mcg/actuation HFA aerosol inhaler 2 puff INHALATION TID Qty: 12.9 5RF losartan 25 mg tablet 25 mg PO QAM 90 Days Qty: 90 5RF metoprolol succinate 25 mg tablet extended release 24 hr 25 mg PO QAM 90 Days Qty: 90 4RF atorvastatin 40 mg tablet 40 mg PO QPM 90 Days Qty: 90 2RF lidocaine [Lidoderm] 5 % adhesive patch,medicated 1 patch topical DAILY Qty: 15 1RF Rx Instructions: leave on most painful area for up to 12 hrs nitroglycerin 0.4 mg tablet, sublingual 0.4 mg sublingual Q5M PRN (Reason: Chest Pain) Qty: 30 6RF Rx Instructions: do not exceed 3 doses per episode (DME) [place] See Rx Instructions .Route .MEDSUPPLY Qty: 1 0RF Rx Instructions: To be installed and used as directed to allow safe ambulation of stairs in patient home potassium chloride 10 mEq capsule, extended release 20 meq PO TID Patient Comments: duloxetine 30 mg capsule,delayed release(DR/EC) 30 mg PO QAM 30 Days Qty: 30 3RF cyclobenzaprine 5 mg tablet 5 mg PO BID PRN (Reason: muscle spasm) 30 Days Qty: 20 1RF (DME) Bedside Commode [id number] [facility] [place] See Rx Instructions .Route Qty: 1 0RF Rx Instructions: As directed pregabalin 150 mg capsule 150 mg PO TID 30 Days Qty: 90 3RF Prevnar 20 (PF) 0.5 mL syringe 0.5 ml IM ONCE Qty: 0.5 0RF Rx Instructions: please administer acetaminophen [Tylenol Extra Strength] 500 mg tablet 1,000 mg PO BID Qty: 60 0RF oxycodone [OxyContin] 10 mg tablet,oral only,ext.rel.12 hr 10 mg PO BID 3 Days Qty: 6 0RF metformin 500 mg tablet 1,000 mg PO BID 90 Days Qty: 360 2RF (DME) blood-glucose meter [[employer]Touch Verio Flex meter] [facility] [place] See Rx Instructions .Route Qty: 1 0RF Rx Instructions: Check blood sugar 1-2 times daily (DME) OneTouch Verio test strips Strip See Rx Instructions .Route Qty: 100 3RF Rx Instructions: Test blood sugar once daily and as needed (DME) lancets [OneTouch UltraSoft 2 Lancet] 30 gauge misc See Rx Instructions .Route Qty: 100 3RF Rx Instructions: Test blood sugar once daily and as needed aspirin [Ecotrin Low Strength] 81 mg tablet,delayed release (DR/EC) 81 mg PO QAM pantoprazole 40 mg tablet,delayed release (DR/EC) 40 mg PO QPM fluticasone furoate-vilanterol [Breo Ellipta] 100-25 mcg/dose blister with device 1 inh INHALATION QAM polyethylene glycol 3350 [Miralax] 17 gram Powder In Packet 17 g PO BID Qty: 30 0RF docusate sodium 100 mg Capsule 100 mg PO BID Qty: 30 0RF Trulicity 4.5 mg/0.5 mL pen injector 4.5 mg subcut Q7D Rx Instructions: please inject 4.5mg once every MONDAY ipratropium-albuterol 0.5 mg-3 mg(2.5 mg base)/3 mL solution for nebulization 3 ml NEB Q6H nicotine [Nicoderm CQ] 21 mg/24 hr Patch 24 Hour 21 mg transdermal QAM Qty: 7 0RF diclofenac sodium [Arthritis Pain (diclofenac)] 1 % gel 4 g topical QID PRN (Reason: Pain) Qty: 100 0RF furosemide 40 mg tablet 80 mg PO QPM Patient Comments: takes 120mg daily Rx Instructions: MAY TAKE AN EXTRA 40MG DAILY, NEEDED, FOR WEIGHT GAIN. albuterol sulfate 90 mcg/actuation HFA aerosol inhaler 2 puff INHALATION Q6H PRN (Reason: Shortness Of Breath Or Wheezing) Nurtec ODT 75 mg tablet,disintegrating 75 mg PO UD PRN (Reason: Migraine Headache) Rx Instructions: 75 mg PO take one tablet at migraine onset as directed; oxycodone 5 mg tablet 5 mg PO Q6H PRN (Reason: pain) Qty: 30 0RF enoxaparin [Lovenox] 120 mg/0.8 mL syringe 120 mg subcut Q12H 7 Days Qty: 11.2 0RF Rx Instructions: start AM of 11/25/23. warfarin 5 mg tablet See Rx Instructions PO UD Qty: 30 0RF Rx Instructions: 10mg q Mon, Wed, Fri, 15mg x 4 days per [facility] Discharge Orders: Discharge Order (Routine); Ordered 12/07/23 Ordered By: Bobo Stallworth/Other Patient Handouts: Managing Type 2 Diabetes Admission Data Admit Date/Time: 11/28/23 13:15 Attending Provider: Bobo Cheney Admit Provider: Bobo Cheney Primary Care Provider: Sugar Weber Other Providers: Bobo Cheney; [place]; [facility]
== END 2023-12-09 17:28 | DRG 560 ==
LOC: ED 10:50 → EDINP 13:15 → 3E 16:16

== ENCOUNTER 2024-05-25 11:18 | Inpatient (IN) ==
--- NOTE | 2024-05-25 11:31 | Emergency Department Note ---
Impression & Plan Chest pain, Dizziness, Nausea & vomiting, Vertigo ED Provider Note NAME: CYRUS HALL AGE: 58 SEX: F : 1965 ARRIVES VIA: Ambulance INFORMANT: Patient, EMS and nursing report ED PROVIDER(S): Pierre Garcia MD CHIEF COMPLAINT: Chest pain MEDICAL DECISION MAKING: Patient presents due to concern for chest pain. IV was established and blood work was obtained. Chest x-ray and CT of the head were performed. Patient was ordered small amount of IV fluids does have a known history of CHF but clinically likely volume down has been vomiting. CT of the head also obtained given the patient's vertiginous symptoms and was ordered Compazine. Below showed a normal white count hemoglobin and platelet count. The patient's kidney function mild JASON with creatinine 1.3. Sodium normal. The patient's troponin not elevated. Calcium slightly elevated 10.4. EKG with possible T wave enlargements in V2 but otherwise appears unchanged. Patient may have symptoms because of vertigo but the patient is high risk for heart disease. CT that is negative. Patient's pain is improved. I did speak with the on-call hospital service Dr. Mason and patient was admitted to the medicine service. Discussion w/ other healthcare providers: None Prior /Outside records reviewed: I reviewed part of a PCP visit from Dr. Weber from April 29, 2024. Patient was seen for annual physical exam known history of type 2 diabetes. Patient also with heart failure with reduced ejection fraction 35 to 40% mitral valve replacement on Coumadin asthma COPD overlap history of pulmonary embolism DM2 hypertension. Differential diagnosis: Cardiac ischemia, aortic dissection, pulmonary embolism, pneumothorax, pneumonia, pericarditis, myocarditis, GERD, cholecystitis, pancreatitis, musculoskeletal, as well as other pathologies were considered. Diagnostics, as interpreted by me: ECG: Normal sinus rhythm with PVC noted, rate of 82, normal axis, normal QRS duration, no obvious STEMI, more amplified T wave in V2 from comparison EKG from January 24, 2024 otherwise grossly unchanged morphology. Cardiac monitoring: An order was placed for continuous cardiac monitoring. The monitor shows a rate of 85 with sinus rhythm. Patient was placed on pulse oximetry Medical decision rules: Heart score Imaging studies: I informally interpreted the patient's chest x-ray does not show obvious pneumonia or pneumothorax with formal report to follow. HPI: Patient presents from home due to concern for chest pains and nausea vomiting as well as dizziness. The patient states that her symptoms began about 3 to 4 days ago. The patient states that she was feeling lightheaded as well as occasionally like she was having vertigo. Patient developed some chest pains yesterday while she was laying at rest. Patient did take nitro which improved her pain. The patient describes the pain as left-sided sharp and radiates to her left shoulder. The patient states that she was not doing anything did not do much today either to see whether or not she was having any exertional symptoms. The patient denies any diaphoresis. Patient does have a prior history of 2 stents as well as a mitral valve repair. The patient states that she was unable to take her medications the last several days with exception of the nitro because she was unable to keep it down. Patient chest pain was amenable to nitro yesterday and did have a bout of chest pain this morning which improved with the initial nitro but had a second episode at 910 that was 20 minutes after the first episode that was not amenable to 3 nitro's. She did receive some Zofran and route which improved her symptoms. The patient states that she did have some nausea and high blood pressure during her last stents that replaced in 2009. Patient states she did not have chest pain at that time. Patient denies any falls or trauma. Patient has any leg swelling or calf pain no recent surgeries procedures hospitalizations or recent prolonged car plane travel. PAST MEDICAL HISTORY: See Below PAST SURGICAL HISTORY: See Below SOCIAL HISTORY: See Below HOME MEDICATIONS: See Below ALLERGIES: See Below VITALS: See Below PHYSICAL EXAMINATION: GENERAL: NAD, non-toxic. EYE EXAM: Normal conjunctiva. PERRL, no anisocoria and EOM's grossly intact w/o pain. OROPHARYNX: Moist mucus membranes, missing left central incisor. NECK: Trachea midline, no stridor. No JVD. LUNGS: Clear to auscultation. Normal chest wall mechanics. HEART: NSR, no MRG. ABDOMEN: Abdomen soft, non-tender, no masses, no rebound or guarding. BACK: No CVA TTP. SKIN: No rashes and no bruising. UPPER EXTREMITIES: Upper extremities are grossly normal. LOWER EXTREMITIES: Grossly normal, no edema. Negative Homans' sign bilaterally. NEURO EXAM: A&O x3, cranial nerves II-XII grossly intact, normal speech, moves all 4 extremities. Past Med/Surg History Problem List (Updated 05/25/24 @ 16:05 by Pierre Garcia MD) Vertigo (Acute) Nausea & vomiting (Acute) Dizziness (Acute) Chest pain (Acute) COPD (chronic obstructive pulmonary disease) Acute blood loss anemia Acute on chronic heart failure with preserved ejection fraction Chronic systolic (congestive) heart failure Hypertension S/P spinal surgery Chronic pain syndrome Sacroiliac joint dysfunction of right side Knee pain, right Back pain (Acute) History of TIA (transient ischemic attack) Peripheral neuropathy Type 2 diabetes mellitus with obesity Chronic anticoagulation Congestive heart failure due to valvular disease History of mitral valve replacement with mechanical valve (Acute) Thyroid cyst 04/2022 complex low suspicion cyst on US. Repeat US ordered 1 yr GERD (gastroesophageal reflux disease) Morbid obesity due to excess calories History of tobacco abuse Encounter for pre-operative examination Osteoarthritis Post traumatic stress disorder Depression Anxiety Lumbar disc herniation with radiculopathy Lumbar spinal stenosis Hyperlipidemia Obstructive sleep apnea on CPAP Lumbar facet joint syndrome Chronic low back pain History of pulmonary embolism 2021, taking Warfarin Postoperative keloid scar sternal Medical History Neurogenic claudication due to lumbar spinal stenosis Mitral valve disease s/p MVR 08/2022, [facility] Acute lumbar radiculopathy Atrial fibrillation History of COVID-19 2020- no hospitalized, "moderate symptoms" > resolved Asthma-COPD overlap syndrome Chronic diastolic congestive heart failure GERD (gastroesophageal reflux disease) Hx of coronary artery disease Stents x2 (2010) CSF leak Remote hx > "resolved" per patient Degeneration of cervical intervertebral disc External hemorrhoids Hemiplegic migraine Vertebral artery stenosis Surgical History Status post left foot surgery Hx of arthroscopy of right knee History of facial surgery 2015, reconstruction sx. of jaw/face>no problems opening mouth since surgery History of open reduction and internal fixation (ORIF) procedure Left tibia, hardware intact History of mitral valve replacement with mechanical valve 08/2022, [facility] History of transesophageal echocardiography (GEORGETTE) 05/2022 History of hemorrhoidectomy ~2018, [facility] S/P left knee arthroscopy History of bilateral tubal ligation Status post right foot surgery History of esophagogastroduodenoscopy (EGD) History of colonoscopy History of heart artery stent Stents x2 (2010) History of cardiac cath ~2010- stents x2 ~2014 ([place])- no stents 04/2022- no stents Family History Mother Breast cancer, Onset Age: 64 Type 2 diabetes mellitus Father Diabetes Coronary heart disease Type 2 diabetes mellitus Myocardial infarction, Onset Age: 52 Family/Other Hypertension sibling Grandmother (Maternal) Cancer Grandfather (Maternal) Cancer Denies family history of Ovarian cancer Social History Smoking Status: Current every day smoker Tobacco Type: Cigarettes Age Started Using Tobacco: 13; Age Quit Using Tobacco: 58; packs per day: 0.5; Cigarettes Per Day: 8-10 cigs/day; Second Hand Exposure: No; Do You Dip or Chew Tobacco: No; Hx Alcohol Use: No Hx Substance Use: No Preferred Language: Peruvian Communication Ability: Effective Visual Impairment: No Limitations Hearing Ability: Normal Rejected Items Clerk Required: No Beliefs That Will Affect Care: None marital status: Current Living Situation: Spouse Current Living Situation Comment: Home with current occupational status: disabled How many Children do You have: 5 Feels Safe at Home: Yes Childhood Exposure to Second-Hand Smoke: No Diet: low salt caffeine: Yes (1/2 cup of coffee a day) during the past year weight has: remained stable Dental Care, Regularly: No Physical Activity Frequency: 1-2 Times per Week Seatbelt Use: always Sunscreen Use: No Assistive Devices: Bedside Commode, Walker and Wheelchair Allergies Allergies Allergy/AdvReac Type Severity Reaction Status Date / Time morphine AdvReac Mild Nausea Verified 04/29/24 07:47 Home Meds Home Medications Medication Instructions Recorded Confirmed aspirin 81 mg tablet,delayed 81 mg PO QAM 07/24/23 05/25/24 release (Ecotrin Low Strength) fluticasone furoate 100 1 inh inhalation QAM 07/24/23 05/25/24 mcg-vilanterol 25 mcg/dose inhalation powder (Breo Ellipta) ipratropium 0.5 mg-albuterol 3 mg 3 ml NEB Q6H 10/26/23 05/25/24 (2.5 mg base)/3 mL nebulization soln rimegepant 75 mg disintegrating 75 mg PO UD PRN Migraine Headache 11/07/23 05/25/24 tablet (Nurtec ODT) polyethylene glycol 3350 17 17 g PO UD PRN Constipation 02/16/24 05/25/24 gram/dose oral powder warfarin 5 mg tablet 5 mg PO UD 05/25/24 05/25/24 Previous Rx's Medication Instructions Recorded Bedside Commode #1 ea 08/04/22 Hospital Bed Homecare #1 ea 08/12/22 hydrocortisone 1 %-pramoxine 1 % 1 applic UT BID PRN hemorrhoids 05/17/23 rectal foam (Proctofoam HC) #10 grams ipratropium bromide 17 2 puff inhalation TID #12.9 grams 05/17/23 mcg/actuation HFA aerosol inhaler (Atrovent HFA) pregabalin 150 mg capsule 150 mg PO TID 30 days #90 caps 07/07/23 blood-glucose meter (OneTouch #1 ea 07/13/23 Verio Flex Meter) lidocaine 5 % topical patch 1 patch topical DAILY #15 ea 07/16/23 (Lidoderm) blood sugar diagnostic (OneTouch #100 ea 07/27/23 Verio test strips) lancets 30 gauge (OneTouch #100 ea 07/27/23 UltraSoft 2 Lancet) nitroglycerin 0.4 mg sublingual 0.4 mg sublingual Q5M PRN Chest 08/09/23 tablet Pain #30 tabs Stair [place] #1 ea 08/10/23 metformin 500 mg tablet 1,000 mg (2 x 500 mg) PO BID 90 09/12/23 days #360 tabs docusate sodium 100 mg capsule 100 mg PO BID #30 caps 09/25/23 nicotine 21 mg/24 hr daily 21 mg transdermal QAM #7 ea 10/27/23 transdermal patch (Nicoderm CQ) atorvastatin 40 mg tablet 40 mg PO QPM 90 days #90 tabs 01/23/24 losartan 25 mg tablet 25 mg PO QAM 90 days #90 tabs 01/23/24 metoprolol succinate 25 mg 25 mg PO QAM 90 days #90 tabs 01/23/24 tablet,extended release 24 hr pantoprazole 40 mg tablet,delayed 40 mg PO QPM #90 tabs 01/23/24 release furosemide 40 mg tablet 80 mg (2 x 40 mg) PO QPM #120 tabs 02/13/24 dulaglutide 4.5 mg/0.5 mL 4.5 mg (0.5 mL) subcut Q7D #2 mL 02/28/24 subcutaneous pen injector ([facility]) duloxetine 30 mg capsule,delayed 30 mg PO QAM 90 days #90 caps 04/29/24 release potassium chloride 20 mEq 20 meq PO DAILY 90 days #90 tabs 04/29/24 tablet,extended release tetanus-diphtheria toxoids-Td 2 Lf 0.5 ml IM ONCE #0.5 mL 04/29/24 unit-2 Lf unit/0.5 mL IM suspension (TDVAX) chlorhexidine gluconate 0.12 % 15 ml mucous membrane TID 30 days 05/04/24 mouthwash #120 mL acetaminophen 500 mg tablet 1,000 mg (2 x 500 mg) PO BID #60 05/07/24 (Tylenol Extra Strength) tabs cyclobenzaprine 5 mg tablet 5 mg PO BID PRN muscle spasm 30 05/07/24 days #20 tabs diclofenac sodium 1 % topical gel 4 g topical QID PRN Pain #100 grams 05/07/24 (Arthritis Pain (diclofenac)) oxycodone 10 mg tablet 10 mg PO BID PRN pain #60 tabs 05/07/24 tramadol 100 mg tablet,extended 100 mg PO DAILY 30 days #30 tabs 05/07/24 release 24hr mphase Results & Data (ED) Vital Signs Vital Signs - 24 hr 05/25/24 11:27 05/25/24 11:30 05/25/24 11:33 Temperature 36.5 C Temperature Source Oral Pulse Rate 78 79 78 Pulse Rate [Apical] Pulse Rate from SpO2 Sensor 78 Respiratory Rate 22 23 Respiratory Effort / Characteristics Non-Labored Respiratory Depth Normal Respiratory Pattern Regular Blood Pressure 141/81 H Blood Pressure [Left Arm] Blood Pressure Mean 101 Blood Pressure Mean [Left Arm] Pulse Oximetry 100 100 Oxygen Delivery Method Room Air Oxygen Flow Rate Sepsis Recent Fever Within 48 Hours No Sepsis New/Unexplained Change in Mental Status N/A Sepsis Action Taken by Nursing No Action Required 05/25/24 12:00 05/25/24 12:15 05/25/24 12:28 Temperature Temperature Source Pulse Rate 77 80 Pulse Rate [Apical] Pulse Rate from SpO2 Sensor 77 Respiratory Rate 15 14 Respiratory Effort / Characteristics Respiratory Depth Respiratory Pattern Blood Pressure 100/61 Blood Pressure [Left Arm] Blood Pressure Mean 74 Blood Pressure Mean [Left Arm] Pulse Oximetry 92 Oxygen Delivery Method Room Air Oxygen Flow Rate Sepsis Recent Fever Within 48 Hours Sepsis New/Unexplained Change in Mental Status Sepsis Action Taken by Nursing 05/25/24 12:33 05/25/24 12:38 05/25/24 12:38 Temperature Temperature Source Pulse Rate 79 77 Pulse Rate [Apical] 77 Pulse Rate from SpO2 Sensor Respiratory Rate 16 12 12 Respiratory Effort / Characteristics Respiratory Depth Respiratory Pattern Blood Pressure 121/71 Blood Pressure [Left Arm] 121/71 Blood Pressure Mean 87 Blood Pressure Mean [Left Arm] 87 Pulse Oximetry 94 96 96 Oxygen Delivery Method Nasal Cannula Nasal Cannula Oxygen Flow Rate 2 2 Sepsis Recent Fever Within 48 Hours Sepsis New/Unexplained Change in Mental Status Sepsis Action Taken by Nursing 05/25/24 12:39 05/25/24 13:12 05/25/24 14:01 Temperature Temperature Source Pulse Rate 77 71 Pulse Rate [Apical] Pulse Rate from SpO2 Sensor 63 Respiratory Rate 16 21 Respiratory Effort / Characteristics Non-Labored Spontaneous Respiratory Depth Normal Respiratory Pattern Blood Pressure 134/93 123/68 Blood Pressure [Left Arm] Blood Pressure Mean 106 82 Blood Pressure Mean [Left Arm] Pulse Oximetry 95 97 Oxygen Delivery Method Oxygen Flow Rate Sepsis Recent Fever Within 48 Hours Sepsis New/Unexplained Change in Mental Status Sepsis Action Taken by Correction Medications Current Medication List: was personally reviewed by me Laboratory Data Attestation: I reviewed the patient's lab results. 05/25/24 12:34 05/25/24 12:34 Lab Results 05/25/24 Range/Units 12:34 WBC 7.76 (4.8-10.8) K/ul RBC 4.84 (4.20-5.40) M/uL Hgb 13.3 (12.0-16.0) g/dl Hct 43.2 (37.0-47.0) % MCV 89.3 (80.0-100.0) fL MCH 27.5 (25.0-34.0) pg MCHC 30.8 L (32.0-36.0) g/dL RDW Std Deviation 50.4 H (36.4-46.3) fL RDW Coeff of Majo 15.3 H (11.5-14.5) % Plt Count 287 (130-400) K/uL MPV 11.7 (9.4-12.4) fL Immature Gran % (Auto) 0.3 % Neut % (Auto) 48.5 % Lymph % (Auto) 41.8 % Mcculloch % (Auto) 7.7 % Eos % (Auto) 1.4 % Baso % (Auto) 0.3 % Neut # (Auto) 3.77 (1.40-6.50) K/uL Lymph # (Auto) 3.24 (1.20-3.40) K/uL Mcculloch # (Auto) 0.60 H (0.11-0.59) K/uL Eos # (Auto) 0.11 (0.00-0.50) K/uL Baso # (Auto) 0.02 (0.00-0.20) K/uL Immature Gran # (Auto) 0.02 (0.01-0.20) K/uL PT 38.1 H (9.0-12.0) Seconds INR 4.0 H (0.9-1.1) APTT 41 H (21-31) Seconds PTT Ratio 1.5 Sodium 138 (136-145) mmol/L Potassium 3.6 (3.5-5.1) mmol/L Chloride 100 (98-107) mmol/L Carbon Dioxide 29 (21-32) mmol/L Anion Gap 9 (3-11) BUN 27 H (6-23) mg/dl Creatinine 1.31 H (0.6-1.2) mg/dl Est Cr Clr Drug Dosing 56.7 ml/min Est GFR ( Amer) 51.5 ml/min Est GFR (Non-Af Amer) 44.5 ml/min BUN/Creatinine Ratio 20.6 H (10-20) Glucose 88 (70-99(Fasting)) mg/dl Calcium 10.4 H (8.6-10.3) mg/dl Total Bilirubin 0.5 (0.2-1.0) mg/dl AST 20 (13-39) U/L ALT 12 (7-52) U/L Alkaline Phosphatase 113 H (34-104) U/L Troponin I High Sens 11.8 (0-14) pg/ml Total Protein 7.9 (6.0-8.3) gm/dl Albumin 4.5 (3.4-5.0) gm/dl Globulin 3.4 (2.5-4.0) gm/dl Albumin/Globulin Ratio 1.3 (0.9-2) Lipase 37 (11-82) U/L Administered Medications Potassium Chloride (K Rafael / Wtr) 10 meq in 100 mls @ 100 mls/hr IV ONE ONE Stop: 05/25/24 16:07 Last Admin: 05/25/24 15:35 Dose: 100 mls/hr Documented By: ROGE Discontinued Medications Hydromorphone HCl (Hydromorphone Inj 0.5 Mg/0.5 Ml Syr) 0.25 mg IV NOW STA Stop: 05/25/24 12:47 Last Admin: 05/25/24 12:51 Dose: 0.25 mg Documented By: SHAUN Prochlorperazine (Compazine) 1 mls @ 1 mls/min IV ONE ONE Stop: 05/25/24 11:39 Last Admin: 05/25/24 12:49 Dose: 1 mls/min Documented By: SHAUN Sodium Chloride (Nss) 250 mls @ 999 mls/hr IV .Q16M ONE Stop: 05/25/24 11:53 Last Infusion: 05/25/24 13:08 Dose: Infused Documented By: Admin: 05/25/24 12:41 Dose: 999 mls/hr Documented By: SHAUN Sodium Chloride (Nss) 500 mls @ 999 mls/hr IV .Q31M ONE Stop: 05/25/24 15:28 Last Admin: 05/25/24 15:34 Dose: 999 mls/hr Documented By: ROGE Morphine Sulfate (Morphine Sulfate 4 Mg/Ml 1 Ml Carp\\Vial) 4 mg IV NOW STA Stop: 05/25/24 11:39 Last Admin: 05/25/24 12:44 Dose: Not Given Documented By: SHAUN Nitroglycerin (Nitroglycerin 2% Ointment 30gm Tube) 0.5 inch EXT NOW STA Stop: 05/25/24 11:39 Last Admin: 05/25/24 12:52 Dose: 0.5 inch Documented By: SHAUN Imaging Data Radiologist's Impression: Chest X-Ray 05/25/24 11:38 XR chest 1V portable CLINICAL HISTORY: Chest pain, nonspecific TECHNIQUE: Single frontal radiograph of the chest was obtained. Comparison: Comparison is made to chest radiograph 11/22/2023 FINDINGS: Median sternotomy wires are unchanged. The cardiomediastinal silhouette is normal. The lungs are clear. No evidence of pleural effusion or pneumothorax. IMPRESSION: No acute chest disease. ACT 112: Negative or not required by law. Electronically signed by: Nickolas Horta M.D. 05/25/2024 12:[address] 05/25/24 11:38 CT head/brain wo con CLINICAL HISTORY: vertigo Technique: Contiguous axial CT images of the head were acquired from the base of the skull to the vertex without intravenous contrast administration. Images were viewed in brain, subdural and bone windows. Automated dose lowering techniques and/or adjustment according to patient size were utilized for this exam. Comparison: Comparison is made to CT head 02/22/2023 Findings: The ventricles, basal cisterns, and cerebral sulci are normal. There is no acute intracranial hemorrhage or evidence of acute territorial infarction. Neither mass effect, shift of the midline structures, nor abnormal extra-axial fluid collections are shown. Imaged portions of the paranasal sinuses and mastoid air cells are clear. The orbits appear normal. There are no acute fractures of the calvaria or scalp swelling. Impression: No acute intracranial hemorrhage, no evidence of acute territorial infarction or other acute intracranial disease process. ACT 112: Negative or not required by law. Electronically signed by: Nickolas Horta M.D. 05/25/2024 12:10 PM Discharge Plan Visit Data Chief Complaint: Cardiac Assessment ED Provider: Pierre Garcia Discharge Problem: Chest pain, Dizziness, Nausea & vomiting, Vertigo Patient Disposition: Admitted As Inpatient Discharge Instructions Interventions: ED Discharge Assessment Last Done: 05/25/24 16:04 Forms Stand Alone Forms: [facility] NPM Prescriptions Prescriptions: No Action (DME) Hospital Bed Homecare Misc See Rx Instructions .Route Qty: 1 0RF Rx Instructions: As directed-HOSPITAL BED, LENGTH OF NEED 99 MONTHS, DX CODE; Z98.890 Proctofoam HC 1-1 % foam 1 applic UT BID PRN (Reason: hemorrhoids) Qty: 10 0RF Atrovent HFA 17 mcg/actuation HFA aerosol inhaler 2 puff INHALATION TID Qty: 12.9 5RF lidocaine [Lidoderm] 5 % adhesive patch,medicated 1 patch topical DAILY Qty: 15 1RF Rx Instructions: leave on most painful area for up to 12 hrs nitroglycerin 0.4 mg tablet, sublingual 0.4 mg sublingual Q5M PRN (Reason: Chest Pain) Qty: 30 6RF Rx Instructions: do not exceed 3 doses per episode (DME) Stair [place] See Rx Instructions .Route .MEDSUPPLY Qty: 1 0RF Rx Instructions: To be installed and used as directed to allow safe ambulation of stairs in patient home atorvastatin 40 mg tablet 40 mg PO QPM 90 Days Qty: 90 2RF losartan 25 mg tablet 25 mg PO QAM 90 Days Qty: 90 5RF metoprolol succinate 25 mg tablet extended release 24 hr 25 mg PO QAM 90 Days Qty: 90 4RF pantoprazole 40 mg tablet,delayed release (DR/EC) 40 mg PO QPM Qty: 90 3RF furosemide 40 mg tablet 80 mg PO QPM Qty: 120 3RF Rx Instructions: MAY TAKE AN EXTRA 40MG DAILY, NEEDED, FOR WEIGHT GAIN. Trulicity 4.5 mg/0.5 mL pen injector 4.5 mg subcut Q7D Qty: 2 5RF Rx Instructions: please inject 4.5mg once every MONDAY chlorhexidine gluconate 0.12 % mouthwash 15 ml mucous membrane TID 30 Days Qty: 120 1RF Rx Instructions: Swish and spit tramadol 100 mg tablet, ER multiphase 24 hr 100 mg PO DAILY 30 Days Qty: 30 0RF oxycodone 10 mg tablet 10 mg PO BID PRN (Reason: pain) Qty: 60 0RF diclofenac sodium [Arthritis Pain (diclofenac)] 1 % gel 4 g topical QID PRN (Reason: Pain) Qty: 100 0RF cyclobenzaprine 5 mg tablet 5 mg PO BID PRN (Reason: muscle spasm) 30 Days Qty: 20 1RF acetaminophen [Tylenol Extra Strength] 500 mg tablet 1,000 mg PO BID Qty: 60 0RF (DME) Bedside Commode Misc See Rx Instructions .Route Qty: 1 0RF Rx Instructions: As directed pregabalin 150 mg capsule 150 mg PO TID 30 Days Qty: 90 3RF metformin 500 mg tablet 1,000 mg PO BID 90 Days Qty: 360 2RF (DME) blood-glucose meter [[employer] Verio Flex meter] Misc See Rx Instructions .Route Qty: 1 0RF Rx Instructions: Check blood sugar 1-2 times daily (DME) OneTouch Verio test strips Strip See Rx Instructions .Route Qty: 100 3RF Rx Instructions: Test blood sugar once daily and as needed (DME) lancets [OneTouch UltraSoft 2 Lancet] 30 gauge misc See Rx Instructions .Route Qty: 100 3RF Rx Instructions: Test blood sugar once daily and as needed potassium chloride 20 mEq tablet extended release 20 meq PO DAILY 90 Days Qty: 90 3RF duloxetine 30 mg capsule,delayed release(DR/EC) 30 mg PO QAM 90 Days Qty: 90 3RF TDVAX 2-2 Lf unit/0.5 mL suspension 0.5 ml IM ONCE Qty: 0.5 0RF aspirin [Ecotrin Low Strength] 81 mg tablet,delayed release (DR/EC) 81 mg PO QAM fluticasone furoate-vilanterol [Breo Ellipta] 100-25 mcg/dose blister with device 1 inh INHALATION QAM docusate sodium 100 mg Capsule 100 mg PO BID Qty: 30 0RF ipratropium-albuterol 0.5 mg-3 mg(2.5 mg base)/3 mL solution for nebulization 3 ml NEB Q6H nicotine [Nicoderm CQ] 21 mg/24 hr Patch 24 Hour 21 mg transdermal QAM Qty: 7 0RF Nurtec ODT 75 mg tablet,disintegrating 75 mg PO UD PRN (Reason: Migraine Headache) Rx Instructions: 75 mg PO take one tablet at migraine onset as directed; polyethylene glycol 3350 17 gram/dose powder 17 g PO UD PRN (Reason: Constipation) warfarin 5 mg tablet 5 mg PO UD Rx Instructions: 15mg q , 10mg x 6 days per [facility] orally use as directed Referrals Referrals: Sugar Weber MD [Primary Care Provider] - Discharge Problem: Chest pain Qualifiers: Chest pain type: unspecified Qualified Code(s): R07.9 - Chest pain, unspecified Nausea & vomiting Qualifiers: Vomiting type: unspecified Qualified Code(s): R11.2 - Nausea with vomiting, unspecified
--- NOTE | 2024-05-25 12:13 | CT Scan Report ---
CT head/brain wo con CLINICAL HISTORY: vertigo Technique: Contiguous axial CT images of the head were acquired from the base of the skull to the solomon marilyn without intravenous contrast administration. Images were viewed in brain, subdural and bone [facility]. Automated dose lowering techniques and/or adjustment according to patient size were utilized for this exam. Comparison: Comparison is made to CT head 02/22/2023 Findings: The ventricles, basal cisterns, and cerebral sulci are normal. There is no acute intracranial hemorrh age or evidence of acute territorial infarction. Neither mass effect, shift of the midline structures , nor abnormal extra-axial fluid collections are shown. Imaged portions of the paranasal sinuses and mastoid air cells are clear. The orbits appear normal. There are no acute fractures of the calvaria or scalp swelling. Impression: No acute intracranial hemorrhage, no evidence of acute territorial infarction or other acute intracra nial disease process. ACT 112: Negative or not required by law. Electronically signed by: Nickolas Horta M.D. 05/25/2024 12:10 PM
--- NOTE | 2024-05-25 12:14 | XRay Report ---
XR chest 1V portable CLINICAL HISTORY: Chest pain, nonspecific TECHNIQUE: Single frontal radiograph of the chest was obtained. Comparison: Comparison is made to chest radiograph 11/22/2023 FINDINGS: Median sternotomy wires are unchanged. The cardiomediastinal silhouette is normal. The lungs are aurelio r. No evidence of pleural effusion or pneumothorax. IMPRESSION: No acute chest disease. ACT 112: Negative or not required by law. Electronically signed by: Nickolas Horta M.D. 05/25/2024 12:13 PM
[2024-05-25] MEDS: SODIUM CHLORIDE 0.9% 250 ML IV ONE (12:41)
[2024-05-25] MEDS: MoRPHine SULFATE 4 MG/ML 1 ML CARP\\VIAL IV STA (12:44)
[2024-05-25] MEDS: PROCHLORPERAZINE 1 ML IV ONE (12:49)
[2024-05-25] MEDS: HYDROmorphone INJ 0.5 MG/0.5 ML SYR IV STA (12:51)
[2024-05-25] MEDS: NITROGLYCERIN 2% OINTMENT 30GM TUBE EXT STA (12:52)
[2024-05-25 12:59] LABS: Basophils # (auto) 0.02 K/uL (0.00-0.20); Basophils % (auto) 0.3 %; Eosinophils # (auto) 0.11 K/uL (0.00-0.50); Eosinophils % (auto) 1.4 %; Hematocrit (blood only) 43.2 % (37.0-47.0); Hemoglobin 13.3 g/dl (12.0-16.0); Immature Granulocytes # (auto) 0.02 K/uL (0.01-0.20); Immature Granulocytes % (auto) 0.3 %; Lymphocytes # (auto) 3.24 K/uL (1.20-3.40); Lymphocytes % (auto) 41.8 %; Mean Corpuscular Hemoglobin 27.5 pg (25.0-34.0); Mean Corpuscular Hgb Conc 30.8 g/dL (32.0-36.0); Mean Corpuscular Volume 89.3 fL (80.0-100.0); Mean Platelet Volume 11.7 fL (9.4-12.4); Monocytes % (auto) 7.7 %; Neutrophils # (auto) 3.77 K/uL (1.40-6.50); Neutrophils % (auto) 48.5 %; Platelet Count 287 K/uL (130-400); RDW Coefficient of Variation 15.3 % (11.5-14.5); RDW Standard Deviation 50.4 fL (36.4-46.3); Red Blood Count 4.84 M/uL (4.20-5.40); White Blood Count 7.76 K/ul (4.8-10.8)
[2024-05-25 13:18] LABS: Albumin Globulin Ratio 1.3 (0.9-2); Albumin Level 4.5 gm/dl (3.4-5.0); BUN Creatinine Ratio 20.6 (10-20); Bilirubin,Total 0.5 mg/dl (0.2-1.0); Calcium 10.4 mg/dl (8.6-10.3); Creatinine Clr Calc Pharmacy 56.7 ml/min; Est GFR (African American) 51.5 ml/min; Est GFR (Non-African American) 44.5 ml/min; Globulin 3.4 gm/dl (2.5-4.0); Potassium 3.6 mmol/L (3.5-5.1); Total Protein 7.9 gm/dl (6.0-8.3)
[2024-05-25 13:24] LABS: Troponin I High Sensitivity 11.8 pg/ml (0-14)
[2024-05-25 15:04] LABS: Partial Thromboplastin Ratio 1.5; Partial Thromboplastin Time 41 Seconds (21-31); Prothrombin Time 38.1 Seconds (9.0-12.0)
--- NOTE | 2024-05-25 15:10 | History & Physical Report ---
Date of Service May 25, 2024 Assessment & Plan (1) Vertigo: (2) Nausea & vomiting: (3) Dizziness: (4) Chest pain: (5) COPD (chronic obstructive pulmonary disease): (6) Chronic systolic (congestive) heart failure: (7) Hypertension: (8) Chronic pain syndrome: (9) Type 2 diabetes mellitus with obesity: (10) Chronic anticoagulation: (11) Post traumatic stress disorder: (12) Depression: (13) Anxiety: Plan Intractable vertigo/nausea, vomiting and dizziness CT scan head negative Symptoms improved somewhat with IV fluid rehydration Acute kidney injury Creatinine 1.31 with baseline 0.85 Likely secondary to nausea and vomiting Status post 750ml normal saline total in ED Can rehydration with IV fluids NSS at 80 mL/h x 1 additional liter Hold furosemide and losartan for now Repeat laboratories in a.m. Systolic CHF/status post mitral valve surgery/CAD/history of stents x 2 chronic anticoagulation/hypertension The patient will be admitted to telemetry for serial cardiac enzymes, serial EKG's, cardiac rhythm monitoring Most recent echo on 04/11/2024 with ejection fraction 55-60% Hold warfarin due to INR 4.0 Hold Nitropaste Continue metoprolol succinate Repeat PT/INR in a.m. Continue aspirin Diabetes mellitus Hold metformin and dulaglutide Placed on Accu-Cheks with NovoLog SSI COPD/SMITA on CPAP at bedtime/history of PE- Continue CPAP at bedtime Continue DuoNebs Continue anticoagulation as above Chronic pain syndrome- Tramadol extended release Oxycodone prn moderate pain History of Present Illness Chief Complaint: The patient presents to the emergency department with complaints of nausea, vomiting and dizziness that began about 4 days ago, then yesterday developed left upper chest pain that radiated to her left shoulder. Primary Care Provider: Sugar Weber MD The patient is a 58-year-old female with a past medical history including COPD chronic systolic CHF hypertension, chronic pain syndrome, sacroiliitis history of TIA, peripheral neuropathy, diabetes mellitus type 2 coagulation, history of mitral valve replacement, valve, GERD, PTSD, depression, anxiety chronic low back pain, lumbar facet joint syndrome, and history of PE. The patient presents to the emergency department with symptoms that began 4 days ago including nausea, vomiting, that she attributes to similar episode of vertigo in the. 1 day ago she started developing left upper chest discomfort, it radiated toward her left shoulder. She did have difficulty taking some of her medications early on with the nausea and vomiting, but has done better over the past 24 hours Allergies Allergy/AdvReac Type Severity Reaction Status Date / Time morphine AdvReac Mild Nausea Verified 04/29/24 07:47 Home Medications Medication Instructions Recorded Confirmed Type Bedside Commode #1 ea 08/04/22 05/07/24 Rx Hospital Bed Homecare #1 ea 08/12/22 05/07/24 Rx hydrocortisone 1 %-pramoxine 1 % 1 applic [place] BID PRN hemorrhoids 05/17/23 05/25/24 Rx rectal foam (Proctofoam HC) #10 grams ipratropium bromide 17 2 puff inhalation TID #12.9 grams 05/17/23 05/25/24 Rx mcg/actuation HFA aerosol inhaler (Atrovent HFA) pregabalin 150 mg capsule 150 mg PO TID 30 days #90 caps 07/07/23 05/25/24 Rx blood-glucose meter (OneTouch #1 ea 07/13/23 05/07/24 Rx Verio Flex Meter) lidocaine 5 % topical patch 1 patch topical DAILY #15 ea 07/16/23 05/25/24 Rx (Lidoderm) aspirin 81 mg tablet,delayed 81 mg PO QAM 07/24/23 05/25/24 History release (Ecotrin Low Strength) fluticasone furoate 100 1 inh inhalation QAM 07/24/23 05/25/24 History mcg-vilanterol 25 mcg/dose inhalation powder (Breo Ellipta) blood sugar diagnostic (OneTouch #100 ea 07/27/23 05/07/24 Rx Verio test strips) lancets 30 gauge (OneTouch #100 ea 07/27/23 05/07/24 Rx UltraSoft 2 Lancet) nitroglycerin 0.4 mg sublingual 0.4 mg sublingual Q5M PRN Chest 08/09/23 05/25/24 Rx tablet Pain #30 tabs Stair [place] #1 ea 08/10/23 05/07/24 Rx metformin 500 mg tablet 1,000 mg (2 x 500 mg) PO BID 90 09/12/23 05/25/24 Rx days #360 tabs docusate sodium 100 mg capsule 100 mg PO BID #30 caps 09/25/23 05/25/24 Rx ipratropium 0.5 mg-albuterol 3 mg 3 ml NEB Q6H 10/26/23 05/25/24 History (2.5 mg base)/3 mL nebulization soln nicotine 21 mg/24 hr daily 21 mg transdermal QAM #7 ea 10/27/23 05/25/24 Rx transdermal patch (Nicoderm CQ) rimegepant 75 mg disintegrating 75 mg PO UD PRN Migraine Headache 11/07/23 05/25/24 History tablet (Nurtec ODT) atorvastatin 40 mg tablet 40 mg PO QPM 90 days #90 tabs 01/23/24 05/25/24 Rx losartan 25 mg tablet 25 mg PO QAM 90 days #90 tabs 01/23/24 05/25/24 Rx metoprolol succinate 25 mg 25 mg PO QAM 90 days #90 tabs 01/23/24 05/25/24 Rx tablet,extended release 24 hr pantoprazole 40 mg tablet,delayed 40 mg PO QPM #90 tabs 01/23/24 05/25/24 Rx release furosemide 40 mg tablet 80 mg (2 x 40 mg) PO QPM #120 tabs 02/13/24 05/25/24 Rx polyethylene glycol 3350 17 17 g PO UD PRN Constipation 02/16/24 05/25/24 History gram/dose oral powder dulaglutide 4.5 mg/0.5 mL 4.5 mg (0.5 mL) subcut Q7D #2 mL 02/28/24 05/25/24 Rx subcutaneous pen injector (Trulicity) duloxetine 30 mg capsule,delayed 30 mg PO QAM 90 days #90 caps 04/29/24 05/25/24 Rx release potassium chloride 20 mEq 20 meq PO DAILY 90 days #90 tabs 04/29/24 05/25/24 Rx tablet,extended release tetanus-diphtheria toxoids-Td 2 Lf 0.5 ml IM ONCE #0.5 mL 04/29/24 05/25/24 Rx unit-2 Lf unit/0.5 mL IM suspension (TDVAX) chlorhexidine gluconate 0.12 % 15 ml mucous membrane TID 30 days 05/04/24 05/25/24 Rx mouthwash #120 mL acetaminophen 500 mg tablet 1,000 mg (2 x 500 mg) PO BID #60 05/07/24 05/25/24 Rx (Tylenol Extra Strength) tabs cyclobenzaprine 5 mg tablet 5 mg PO BID PRN muscle spasm 30 05/07/24 05/25/24 Rx days #20 tabs diclofenac sodium 1 % topical gel 4 g topical QID PRN Pain #100 grams 05/07/24 05/25/24 Rx (Arthritis Pain (diclofenac)) oxycodone 10 mg tablet 10 mg PO BID PRN pain #60 tabs 05/07/24 05/25/24 Rx tramadol 100 mg tablet,extended 100 mg PO DAILY 30 days #30 tabs 05/07/24 05/25/24 Rx release 24hr mphase warfarin 5 mg tablet 5 mg PO UD 05/25/24 05/25/24 History Past Med/Surg History Problem List (Updated 05/25/24 @ 16:05 by Pierre Garcia MD) Vertigo (Acute) Nausea & vomiting (Acute) Dizziness (Acute) Chest pain (Acute) COPD (chronic obstructive pulmonary disease) Acute blood loss anemia Acute on chronic heart failure with preserved ejection fraction Chronic systolic (congestive) heart failure Hypertension S/P spinal surgery Chronic pain syndrome Sacroiliac joint dysfunction of right side Knee pain, right Back pain (Acute) History of TIA (transient ischemic attack) Peripheral neuropathy Type 2 diabetes mellitus with obesity Chronic anticoagulation Congestive heart failure due to valvular disease History of mitral valve replacement with mechanical valve (Acute) Thyroid cyst 04/2022 complex low suspicion cyst on US. Repeat US ordered 1 yr GERD (gastroesophageal reflux disease) Morbid obesity due to excess calories History of tobacco abuse Encounter for pre-operative examination Osteoarthritis Post traumatic stress disorder Depression Anxiety Lumbar disc herniation with radiculopathy Lumbar spinal stenosis Hyperlipidemia Obstructive sleep apnea on CPAP Lumbar facet joint syndrome Chronic low back pain History of pulmonary embolism 2021, taking Warfarin Postoperative keloid scar sternal Medical History Neurogenic claudication due to lumbar spinal stenosis Mitral valve disease s/p MVR 08/2022, [facility] Acute lumbar radiculopathy Atrial fibrillation History of COVID-19 2020- no hospitalized, "moderate symptoms" > resolved Asthma-COPD overlap syndrome Chronic diastolic congestive heart failure GERD (gastroesophageal reflux disease) Hx of coronary artery disease Stents x2 (2010) CSF leak Remote hx > "resolved" per patient Degeneration of cervical intervertebral disc External hemorrhoids Hemiplegic migraine Vertebral artery stenosis Surgical History Status post left foot surgery Hx of arthroscopy of right knee History of facial surgery 2014, reconstruction sx. of jaw/face>no problems opening mouth since surgery History of open reduction and internal fixation (ORIF) procedure Left tibia, hardware intact History of mitral valve replacement with mechanical valve 08/2022, [facility] History of transesophageal echocardiography (GEORGETTE) 05/2022 History of hemorrhoidectomy ~2017, [facility] S/P left knee arthroscopy History of bilateral tubal ligation Status post right foot surgery History of esophagogastroduodenoscopy (EGD) History of colonoscopy History of heart artery stent Stents x2 (2010) History of cardiac cath ~2010- st[place]2 [place] ([place] no stents 04/2022- no stents Family History Mother Breast cancer, Onset Age: 64 Type 2 diabetes mellitus Father Diabetes Coronary heart disease Type 2 diabetes mellitus Myocardial infarction, Onset Age: 52 Family/Other Hypertension sibling Grandmother (Maternal) Cancer Grandfather (Maternal) Cancer Denies family history of Ovarian cancer Social History Smoking Status: Current every day smoker Tobacco Type: Cigarettes Age Started Using Tobacco: 13; Age Quit Using Tobacco: 58; packs per day: 0.5; Cigarettes Per Day: 6; Second Hand Exposure: No; Do You Dip or Chew Tobacco: No; Hx Alcohol Use: No Hx Substance Use: No Preferred Language: Bhutanese Communication Ability: Effective Visual Impairment: No Limitations Hearing Ability: Normal 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 Has caregiver come for help with ADLs current occupational status: disabled How many Children do You have: 5 Feels Safe at Home: Yes Childhood Exposure to Second-Hand Smoke: No Diet: low salt caffeine: Yes (1/2 cup of coffee a day) during the past year weight has: remained stable Dental Care, Regularly: No Physical Activity Frequency: 1-2 Times per Week Seatbelt Use: always Sunscreen Use: No Assistive Devices: Cane, CPAP, Walker and Wheelchair Review of Systems Review of Systems: The patient denies palpitations, cough, lower extremity swelling, sore throat, fevers, chills, sweats, diarrhea , constipation, abdominal pain, pelvic pain, blood in urine or stool, dysuria, urinary frequency or urgency, headache, memory loss, loss of consciousness, rash, abnormal bruising or bleeding, focal or generalized weakness, numbness or tingling in arms or legs, generalized arthralgias or myalgias, back or neck pain, or night sweats. The review of systems is otherwise negative other than for that already noted above, and at least 10 systems have been reviewed. Physical Exam Physical Exam: The patient is awake, alert and oriented 3, well developed and well nourished, normocephalic and atraumatic, lying in bed and in no acute distress. HEENT--PERRL, EOMI, mucous membranes and oropharynx mildly dry. Neck--supple. No JVD. No bruits. Thyroid normal, trachea midline, no adenopathy. Heart--normal S1 and S2. No murmurs, rubs or gallops. Lungs--clear bilaterally, no respiratory distress, no accessory muscle use. Abdomen--normal bowel sounds and soft. Nontender. Nondistended, no hernias or masses, no organomegaly. Extremities--no cyanosis or clubbing. No edema. Dermatologic--normal skin turgor, normal color, no abnormal lymph nodes, no rash. Neurologic--cranial nerves II through XII grossly intact. Rheumatologic--normal range of motion. Psychiatric--normal affect. Results & Data Results & Data Vital Signs (Past 12 Hours) Vital Signs Temp Pulse Pulse Resp BP BP Pulse Ox 05/25/24 14:01 71 21 123/68 97 05/25/24 13:12 77 16 134/93 95 05/25/24 12:38 77 12 96 05/25/24 12:38 77 12 121/71 96 05/25/24 12:33 79 16 121/71 94 05/25/24 12:28 05/25/24 12:15 80 14 05/25/24 12:00 77 15 100/61 92 05/25/24 11:33 78 23 100 05/25/24 11:30 79 05/25/24 11:27 36.5 C 78 22 141/81 H 100 O2 Del Method O2 Flow Rate 05/25/24 14:01 05/25/24 13:12 05/25/24 12:38 Nasal Cannula 2 05/25/24 12:38 Nasal Cannula 2 05/25/24 12:33 05/25/24 12:28 Room Air 05/25/24 12:15 05/25/24 12:00 05/25/24 11:33 05/25/24 11:30 05/25/24 11:27 Room Air Laboratory Results Laboratory Results WBC 7.76 K/ul (4.8-10.8) 05/25/24 12:34 RBC 4.84 M/uL (4.20-5.40) 05/25/24 12:34 Hgb 13.3 g/dl (12.0-16.0) 05/25/24 12:34 Hct 43.2 % (37.0-47.0) 05/25/24 12:34 MCV 89.3 fL (80.0-100.0) 05/25/24 12:34 MCH 27.5 pg (25.0-34.0) 05/25/24 12:34 MCHC 30.8 g/dL (32.0-36.0) L 05/25/24 12:34 RDW Std Deviation 50.4 fL (36.4-46.3) H 05/25/24 12:34 RDW Coeff of Majo 15.3 % (11.5-14.5) H 05/25/24 12:34 Plt Count 287 K/uL (130-400) 05/25/24 12:34 MPV 11.7 fL (9.4-12.4) 05/25/24 12:34 Immature Gran % (Auto) 0.3 % 05/25/24 12:34 Neut % (Auto) 48.5 % 05/25/24 12:34 Lymph % (Auto) 41.8 % 05/25/24 12:34 [place] % (Auto) 7.7 % 05/25/24 12:34 Eos % (Auto) 1.4 % 05/25/24 12:34 Baso % (Auto) 0.3 % 05/25/24 12:34 Neut # (Auto) 3.77 K/uL (1.40-6.50) 05/25/24 12:34 Lymph # (Auto) 3.24 K/uL (1.20-3.40) 05/25/24 12:34 [place] # (Auto) 0.60 K/uL (0.11-0.59) H 05/25/24 12:34 Eos # (Auto) 0.11 K/uL (0.00-0.50) 05/25/24 12:34 Baso # (Auto) 0.02 K/uL (0.00-0.20) 05/25/24 12:34 Immature Gran # (Auto) 0.02 K/uL (0.01-0.20) 05/25/24 12:34 PT 38.1 Seconds (9.0-12.0) H 05/25/24 12:34 INR 4.0 (0.9-1.1) H 05/25/24 12:34 APTT 41 Seconds (21-31) H 05/25/24 12:34 PTT Ratio 1.5 05/25/24 12:34 Sodium 138 mmol/L (136-145) 05/25/24 12:34 Potassium 3.6 mmol/L (3.5-5.1) 05/25/24 12:34 Chloride 100 mmol/L (98-107) 05/25/24 12:34 Carbon Dioxide 29 mmol/L (21-32) 05/25/24 12:34 Anion Gap 9 (3-11) 05/25/24 12:34 BUN 27 mg/dl (6-23) H 05/25/24 12:34 Creatinine 1.31 mg/dl (0.6-1.2) H 05/25/24 12:34 Est Cr Clr Drug Dosing 56.7 ml/min 05/25/24 12:34 Est GFR ( Amer) 51.5 ml/min 05/25/24 12:34 Est GFR (Non-Af Amer) 44.5 ml/min 05/25/24 12:34 BUN/Creatinine Ratio 20.6 (10-20) H 05/25/24 12:34 Glucose 88 mg/dl (70-99(Fasting)) 05/25/24 12:34 POC Glucose 120 mg/dl (70-99) H 05/25/24 16:37 Calcium 10.4 mg/dl (8.6-10.3) H 05/25/24 12:34 Magnesium TNP 05/25/24 15:34 Total Bilirubin 0.5 mg/dl (0.2-1.0) 05/25/24 12:34 AST 20 U/L (13-39) 05/25/24 12:34 ALT 12 U/L (7-52) 05/25/24 12:34 Alkaline Phosphatase 113 U/L (34-104) H 05/25/24 12:34 Troponin I High Sens 9.2 pg/ml (0-14) 05/25/24 15:34 Total Protein 7.9 gm/dl (6.0-8.3) 05/25/24 12:34 Albumin 4.5 gm/dl (3.4-5.0) 05/25/24 12:34 Globulin 3.4 gm/dl (2.5-4.0) 05/25/24 12:34 Albumin/Globulin Ratio 1.3 (0.9-2) 05/25/24 12:34 Lipase 37 U/L (11-82) 05/25/24 12:34 Impressions Chest X-Ray 05/25/24 11:38 XR chest 1V portable CLINICAL HISTORY: Chest pain, nonspecific TECHNIQUE: Single frontal radiograph of the chest was obtained. Comparison: Comparison is made to chest radiograph 11/22/2023 FINDINGS: Median sternotomy wires are unchanged. The cardiomediastinal silhouette is normal. The lungs are clear. No evidence of pleural effusion or pneumothorax. IMPRESSION: No acute chest disease. ACT 112: Negative or not required by law. Electronically signed by: Nickolas Horta M.D. 05/25/2024 12:[address] 05/25/24 11:38 CT head/brain wo con CLINICAL HISTORY: vertigo Technique: Contiguous axial CT images of the head were acquired from the base of the skull to the vertex without intravenous contrast administration. Images were viewed in brain, subdural and bone windows. Automated dose lowering techniques and/or adjustment according to patient size were utilized for this exam. Comparison: Comparison is made to CT head 02/22/2023 Findings: The ventricles, basal cisterns, and cerebral sulci are normal. There is no acute intracranial hemorrhage or evidence of acute territorial infarction. Neither mass effect, shift of the midline structures, nor abnormal extra-axial fluid collections are shown. Imaged portions of the paranasal sinuses and mastoid air cells are clear. The orbits appear normal. There are no acute fractures of the calvaria or scalp swelling. Impression: No acute intracranial hemorrhage, no evidence of acute territorial infarction or other acute intracranial disease process. ACT 112: Negative or not required by law. Electronically signed by: Nickolas Horta M.D. 05/25/2024 12:10 PM Code Status & VTE Plan VTE Prophylaxis Plan VTE Prophylaxis will be ordered: Yes PG Care Time/CCT Total # of Minutes Spent Total Time Spent with Patient: Total time spent is greater than 50% in coordination of care (as documented) at patient's floor/unit and/or counseling patient: Coding Level of Care Code 93622 INT INP/OBS CARE 3/75MIN Diagnoses Vertigo R42 Nausea & vomiting R11.2 Vomiting type: unspecified Dizziness R42 Chest pain R07.9 Chest pain type: unspecified COPD (chronic obstructive pulmonary disease) J44.9 Chronic systolic (congestive) heart failure I50.22 Essential hypertension I10 Hypertension type: essential hypertension Chronic pain syndrome G89.4 Type 2 diabetes mellitus with obesity E11.69; E66.9 Chronic anticoagulation Z79.01 Post traumatic stress disorder F43.10 Depression, unspecified depression type F32.9 Depression Type: unspecified Anxiety F41.9 (2) Nausea & vomiting Vomiting type: unspecified Qualified Code(s): R11.2 - Nausea with vomiting, unspecified (4) Chest pain Chest pain type: unspecified Qualified Code(s): R07.9 - Chest pain, unspecified (7) Hypertension Hypertension type: essential hypertension Qualified Code(s): I10 - Essential (primary) hypertension (12) Depression Depression Type: unspecified Qualified Code(s): F32.9 - Major depressive disorder, single episode, unspecified
[2024-05-25] MEDS: SODIUM CHLORIDE 0.9% 500 ML IV ONE (15:34)
[2024-05-25] MEDS: POTASSIUM CHLORIDE / WTR 10 MEQ/100 ML PLCT IV ONE (15:35)
[2024-05-25] MEDS ORDERED: POLYETHYLENE (MIRALAX) 17 GM PACK PO PRN (16:24)
[2024-05-25 16:42] LABS: Troponin I High Sensitivity 9.2 pg/ml (0-14)
[2024-05-25] MEDS: ALBUT/IPRATROP 3MG/0.5MG NEB 3 ML VIAL NEB SCH (16:54)
[2024-05-25] MEDS: metFORMIN HCL 500 MG TAB PO SCH (17:06)
[2024-05-25] MEDS: oxyCODONE HCL IR 5 MG TAB (IMMEDIATE RELEASE) PO PRN (17:06)
[2024-05-25] MEDS ORDERED: SODIUM CHLORIDE 0.9% 1,000 ML IV SCH (17:30)
[2024-05-25 17:51] LABS: Magnesium 1.6 mg/dl (1.7-2.4)
[2024-05-25 17:58] LABS: Troponin I High Sensitivity 10.1 pg/ml (0-14)
[2024-05-25] MEDS ORDERED: IPRATROPIUM BROMIDE HFA INHALER INH SCH (21:00)
[2024-05-25] MEDS: DOCUSATE SODIUM 100 MG CAP PO SCH (21:14)
[2024-05-25] MEDS: PREGABALIN 150 MG CAP PO SCH (21:14)
[2024-05-25] MEDS: CYCLOBENZAPRINE HCL 5 MG TAB PO PRN (21:14)
[2024-05-25] MEDS: ATORVASTATIN 40 MG TAB PO SCH (21:14)
[2024-05-25] MEDS: ACETAMINOPHEN 500 MG TAB PO SCH (21:15)
[2024-05-25] MEDS: PANTOprazole 40 MG TAB PO SCH (21:16)
[2024-05-26 06:08] LABS: Basophils # (auto) 0.03 K/uL (0.00-0.20); Basophils % (auto) 0.4 %; Eosinophils # (auto) 0.17 K/uL (0.00-0.50); Eosinophils % (auto) 2.1 %; Hematocrit (blood only) 39.7 % (37.0-47.0); Immature Granulocytes # (auto) 0.02 K/uL (0.01-0.20); Immature Granulocytes % (auto) 0.3 %; Lymphocytes # (auto) 3.22 K/uL (1.20-3.40); Lymphocytes % (auto) 40.3 %; Mean Corpuscular Hemoglobin 27.7 pg (25.0-34.0); Mean Corpuscular Hgb Conc 30.2 g/dL (32.0-36.0); Mean Corpuscular Volume 91.7 fL (80.0-100.0); Mean Platelet Volume 11.7 fL (9.4-12.4); Monocytes # (auto) 0.63 K/uL (0.11-0.59); Monocytes % (auto) 7.9 %; Neutrophils # (auto) 3.93 K/uL (1.40-6.50); Platelet Count 234 K/uL (130-400); RDW Coefficient of Variation 15.2 % (11.5-14.5); RDW Standard Deviation 51.2 fL (36.4-46.3); Red Blood Count 4.33 M/uL (4.20-5.40)
[2024-05-26 06:23] LABS: Albumin Level 3.9 gm/dl (3.4-5.0); BUN Creatinine Ratio 30.1 (10-20); Calcium 9.3 mg/dl (8.6-10.3); Creatinine Clr Calc Pharmacy 88.1 ml/min; Est GFR (African American) 89.5 ml/min; Est GFR (Non-African American) 77.2 ml/min; Magnesium 1.7 mg/dl (1.7-2.4); Phosphorus 4.3 mg/dl (2.5-4.9); Potassium 4.1 mmol/L (3.5-5.1)
--- NOTE | 2024-05-26 06:52 | Electrocardiogram Report ---
Test Reason : Blood Pressure : / mmHG Vent. Rate : 076 BPM Atrial Rate : 076 BPM P-R Int : 150 ms QRS Dur : 088 ms QT Int : 406 ms P-R-T Axes : 000 010 111 degrees QTc Int : 456 ms Ectopic atrial rhythm Moderate voltage criteria for LVH, may be normal variant T wave abnormality, consider lateral ischemia Abnormal ECG When compared with ECG of 25-MAY-2024 11:25, (unconfirmed) Premature ventricular complexes are no longer Present Confirmed by Kwaku Dominguez ([id number]) on 05/26/2024 6:52:11 AM Referred By: REFERRED SELF Confirmed By:Syd Dominguez
--- NOTE | 2024-05-26 06:54 | Electrocardiogram Report ---
Test Reason : Blood Pressure : / mmHG Vent. Rate : 082 BPM Atrial Rate : 082 BPM P-R Int : 150 ms QRS Dur : 084 ms QT Int : 382 ms P-R-T Axes : 000 020 111 degrees QTc Int : 446 ms Ectopic atrial rhythm with PVC Minimal voltage criteria for LVH, may be normal variant T wave abnormality, consider lateral ischemia Abnormal ECG Confirmed by Kwaku Dominguez ([id number]) on 05/26/2024 6:53:41 AM Referred By: REFERRED SELF Confirmed By:Syd Dominguez
--- NOTE | 2024-05-26 07:18 | Hospitalist Progress Note ---
Date of Service May 26, 2024 Assessment & Plan (1) Vertigo: (2) Nausea & vomiting: (3) Chest pain: (4) Morbid obesity due to excess calories: (5) History of pulmonary embolism: Plan 1) Intractable vertigo/nausea, vomiting and dizziness # patient's N/V and dizziness completely resolved by this morning CT scan head negative Symptoms improved somewhat with IV fluid rehydration 2) Acute kidney injury #resolved Cr, 0.83 <-- 1.31 (on admission/baseline 0.85) Likely secondary to nausea and vomiting Status post 750ml NSS total in ED Can rehydrate with IV fluids NSS at 80 mL/h x 1 additional liter furosemide and losartan held for now 3) Systolic CHF/status post mitral valve surgery/CAD/history of stents x 2 chronic anticoagulation/hypertension The patient admitted to telemetry for serial cardiac enzymes, serial EKG's, cardiac rhythm monitoring HSTrops, 12.1 <-- 15.1 <-- 8.3 <-- 10.1 Cardiac telemetry--> inverted P waves in lead 2, V3-V6 suggests ectopic atrial rhythm Most recent echo on 04/11/2024 with ejection fraction 55-60% Held warfarin due to INR 4.0 --> Repeat PT/INR w/ AM labs Held Nitropaste, Continued metoprolol succinate, Continued aspirin - Cardiology consulted, recommendations appreciated 4) T2DM Hold metformin and dulaglutide Placed on Accu-Cheks with NovoLog SSI 5) COPD/SMITA on CPAP at bedtime/history of PE Continue CPAP at bedtime Continue DuoNebs INR, 4.0 Continue anticoagulation as above once patient's INR returns to normal 6) Chronic pain syndrome Tramadol extended release Oxycodone prn moderate pain Code status: Full code Disposition: PCU, Observation VTE Prophylaxis: Warfarin (temporarily held due to supra-therapeutic INR) FENGI: [id number] consistent, heart-healthy Admission and Anticipated Discharge Date Admission Date: May 25, 2024 Supervising Physician Co-Signing Physician Notes Patient seen and examined, chart reviewed, case discussed with Stephane Bedoya MD and I agree with the assessment and plan as above except as otherwise noted Labs and images reviewed Deb is a 58-year-old female with past medical history of COPD, systolic CHF, chronic pain, sacroiliitis, lumbar facet joint syndrome, TIA, peripheral neuropathy, type II DM, mitral valve replacement, GERD, PTSD, anxiety, low back pain, and PE on Eliquis. Admitted for left upper chest discomfort radiating to the left shoulder with some nausea. At time of morning assessment still had some mild chest discomfort at the T4 level rating to her left shoulder which was improved from prior and now a 4/10. This is tender to palpation and directly reproducible on palpation both overlying her chest and at her back. On afternoon reassessment prior to lunch patient felt she was doing well and was nearly pain-free. Serial troponins were initially normal, had a mild elevation at 15 in the setting of normalized JASON, and then normalized at 12.1 on recheck. No acute EKG changes suggestive of ischemia, inverted P waves similar to prior were present indicative of a ectopic rhythm without WV less than 120. Addendum 1800hrs: Notified by nursing staff that patient had the sudden onset of severe high epigastric/lower chest pain with radiation into her mid back and shooting through her chest between her shoulder blades. At bedside assessment patient appeared uncomfortable, and a little short of breath noting that when she took a deep breath it caused her pain. She was not hypertensive. She was given sublingual nitro, and EKG similar to prior ?lateral ischemic changes. On exam lungs were clear, heart rate was regular. She had reproducible chest wall t enderness and tenderness to palpation at the left chest wrapping around to left back at about the T4 level without numbness/tingling. No overlying lesions were noted. Palpation did significantly worsen her pain, but she notes she had some pain that seems separate and different from this. Pain improved but did not resolve with nitro and morphine. Due to severe onset of pain and with direct radiation to her shoulder blades she was sent for CTA. This did not show evidence of dissection or PE. No evidence of fracture or PTX. Upon returning she felt improved but not resolved and received another milligram of morphine with improvement of pain to around 3-4/10. Troponin was 14.5. Cardiology contacted to review case. Reproducible pain on palpation w/ normalized repeat EKG reassuring on reassessment, and pt had on admission had several hours of pain with trop <20; however is with increased risk w/ history of both circumflex stent 2011 and mitral valve repair in 2021. She has a hx of a mechanical AV and goal INR is 2.5-3.5. NR. Previously 4.0, now 3.0. .Started on low dose heparin gtt which will cover anticoag transition, and pending further trop trend and ischemic evaluation. IContinues to have significant reproducible component on palpation overlying the chest wall. No signs of fractures or pneumothorax seen on CTA. Additional 2-hour troponin and serial EKG pending, and signed out to overnight provider. Subjective The patient is a 58 yo F w/ a PMHx of COPD, chronic systolic CHF hypertension, chronic pain syndrome, sacroiliitis, lumbar facet joint syndrome, history of TIA, peripheral neuropathy, T2DM, history of mitral valve replacement, valve, GERD, PTSD, depression, anxiety chronic low back pain, and history of PE (on anticoagulation). The patient presented to the emergency department with symptoms that began 4 days ago including nausea, vomiting, that she attributes to similar episode of vertigo in the past. 1 day ago she started developing left upper chest discomfort, it radiated toward her left shoulder. She did have difficulty taking some of her medications early on with the nausea and vomiting, but has done better over the past 24 hours. This morning the patient feels better, the N/V has completely resolved, patient no longer having any dizziness, just a little weak, and still having some mild CP (4/10). The pain radiates to her left shoulder/l. shoulder blade but no additional radiation of the pain. This pain is about the same as it was when patient admitted last night. The patient had low back surgery (spinal fusion of L4-L5-S1) 6 months ago and is still recovering. Review of Systems Constitutional: + chills, + body aches, + fatigue, + wea kness and + weight loss (lost 17 kg since November 2023); no fever Eyes: no diplopia and no worsening vision Respiratory: + dyspnea; no cough and no chest congest ion Cardiovascular: + chest pain, + radiating jaw, neck or a rm pain and + orthopnea; no palpitations, no edema and no calf pain Gastrointestinal: + constipation; no nausea, no vomiting a nd no diarrhea/loose stools Genitourinary: no dysuria, no urinary frequency and no flank pain Integumentary: no rash and no sores Physical Exam Constitutional: WD/WN, vitals as above Respiratory: normal respiratory effort, lungs clear to auscultation Cardiovascular: Rate/Rhythm: regular rate Heart Sounds: + click Patient with audible click/closing first heart sound due to past mechanical mitral valve placement. Gastrointestinal (Abdomen): normal bowel sounds, soft, nontender, no hepatosplenomegaly Musculoskeletal: left shoulder/l. should blade tenderness w/ palpation; left chest tenderness w/ palpation also Psychiatric: A+Ox3, euthymic affect Results & Data Results & Data Vital Signs (Past 12 Hours) Vital Signs Temp Pulse Pulse Resp BP Pulse Ox O2 Del Method 05/26/24 03:32 79 16 97 05/26/24 03:04 36.8 C 82 17 140/72 97 CPAP 05/26/24 00:36 78 16 97 CPAP 05/25/24 23:01 36.9 C 81 19 139/78 97 CPAP 05/25/24 23:00 84 05/25/24 21:00 Nasal Cannula, CPAP 05/25/24 21:00 79 14 92 05/25/24 19:31 71 18 97 Nasal Cannula 05/25/24 19:27 36.4 C L 71 19 105/72 97 Nasal Cannula O2 Flow Rate FiO2 05/26/24 03:32 05/26/24 03:04 05/26/24 00:36 05/25/24 23:01 05/25/24 23:00 05/25/24 21:00 2 05/25/24 21:00 21 05/25/24 19:31 2 05/25/24 19:27 2 Resident Activity Tracking Resident Involvement: Resident Care Provided Care Provided: Adult Hospital Medicine (2) Nausea & vomiting Vomiting type: unspecified Qualified Code(s): R11.2 - Nausea with vomiting, unspecified (3) Chest pain Chest pain type: unspecified Qualified Code(s): R07.9 - Chest pain, unspecified
[2024-05-26] MEDS: DULoxetine HCL 30 MG CAP PO SCH (08:20)
[2024-05-26] MEDS: METOPROLOL SUCC 25MG EXT REL TAB PO SCH (08:20)
[2024-05-26] MEDS: NICOTINE 21 MG/24 HR TDSY TD SCH (08:20)
[2024-05-26] MEDS: ASPIRIN 81 MG ECTAB PO SCH (08:20)
[2024-05-26] MEDS: FLUTICASONE/VILANTEROL 100/25MCG 14 PUFFS/INHALER INH SCH (08:21)
[2024-05-26] MEDS: POTASSIUM CHLORIDE CRTAB 20 MEQ TABCR PO SCH (08:21)
[2024-05-26] MEDS: LIDOCAINE 5% 1 PATCH TD SCH (08:21)
[2024-05-26 13:06] LABS: Influenza A virus by PCR Negative (Neg); Influenza B virus by PCR Negative (Neg); RSV by PCR Negative (Neg); SARS CoV2 RNA(COVID-19) Ceph NEGATIVE (Negative)
[2024-05-26] MEDS: NITROGLYCERIN SL 0.4 MG/TAB TAB SL PRN (17:02)
[2024-05-26] MEDS: ONDANSETRON INJ 2 MG/ML 2 ML VIAL IV ONE (17:37)
[2024-05-26] MEDS: MoRPHine SULFATE 2 MG/ML CARP IV STA ×3 (17:37→18:35)
[2024-05-26] MEDS: NITROGLYCERIN 2% OINTMENT 30GM TUBE EXT STA (17:39)
[2024-05-26] MEDS: NITROGLYCERIN 2% OINTMENT 30GM TUBE EXT ONE (17:39)
[2024-05-26] MEDS: OPTIRAY 320 125ml IV ONE (17:52)
--- NOTE | 2024-05-26 18:20 | CT Scan Report ---
CHEST CTA for AORTIC DISSECTION CT DOSE: 1996.66 mGy.cm HISTORY: Chest pain. r/o dissection TECHNIQUE: Multiaxial CT images of the chest were performed both before and after the intravenous adm inistration of contrast to evaluate the aorta. 3D/MIP images were also obtained. Sagittal and coronal reformations were also reviewed. A dose lowering technique was utilized adhering to the principles of ALARA. COMPARISON STUDY: Chest CT 04/18/2023. FINDINGS: Noncontrast imaging through the chest shows no evidence for an intramural hematoma within t he thoracic aorta. The thoracic aorta is normal in course and caliber with no evidence for a dissecti on. The heart is normal in size. No pleural or pericardial effusions. A mitral valve prosthesis is no bubba. The central pulmonary arteries are patent. A 1.7 cm left thyroid nodule again noted. Normal esop hagus. Limited views the upper abdomen demonstrate a normal liver, spleen, and adrenal left adrenal g land. Mild nodular thickening within the right adrenal gland again noted. No mediastinal or hilar lym phadenopathy. There are poststernotomy changes. No acute fractures within the chest. Mild elevation o f the left hemidiaphragm, unchanged. No pneumothorax. The central airways are patent. Small blebs are noted at the lung apices. Stable 3 mm subpleural nodule within the right upper lobe on image 63. No focal lung consolidations. Mild subpleural interstitial thickening at the lung bases. This remains un changed and is likely chronic. Subtle groundglass tree-in-bud nodular opacities within the left lower lobe persists. This favors a mild chronic bronchiolitis. No new focal lung consolidations to suggest a pneumonia. IMPRESSION: 1. No evidence for a pulmonary embolus. 2. The main pulmonary arteries are patent. 3. Stable 1.7 cm left thyroid nodule. 4. Stable groundglass tree-in-bud nodular opacities within the left lower lobe. This favors a mild ch ronic bronchiolitis. 5. No new focal lung consolidations to suggest a pneumonia. ACT 112: Negative or not required by law. Electronically signed by: Octaviano Garcia M.D. 05/26/2024 6:18 PM
[2024-05-26 18:23] LABS: Partial Thromboplastin Ratio 1.6; Partial Thromboplastin Time 42 Seconds (21-31); Prothrombin Time 29.5 Seconds (9.0-12.0)
[2024-05-26] MEDS: NITROGLYCERIN 2% OINTMENT 30GM TUBE EXT SCH (19:18)
[2024-05-26] MEDS ORDERED: Heparin IV Adult Wt-Based Low-Dose *NO* INITIAL Bolus Protocol IV STA (19:25)
[2024-05-26] MEDS: ASPIRIN 81 MG CHEW PO ONE (19:57)
[2024-05-26] MEDS: ALUMINUM/MAGNESIUM SUSP 30 ML UDC PO STA (19:58)
[2024-05-26] MEDS: HEPARIN SODIUM/DEXTROSE 25,000 UNITS/500 ML BAG IV SCH (20:37)
[2024-05-26] MEDS: MoRPHine SULFATE 4 MG/ML 1 ML CARP\\VIAL IV PRN (22:21)
[2024-05-27 03:15] LABS: Basophils # (auto) 0.02 K/uL (0.00-0.20); Basophils % (auto) 0.3 %; Eosinophils # (auto) 0.21 K/uL (0.00-0.50); Eosinophils % (auto) 3.1 %; Hematocrit (blood only) 34.1 % (37.0-47.0); Hemoglobin 10.4 g/dl (12.0-16.0); Immature Granulocytes # (auto) 0.01 K/uL (0.01-0.20); Immature Granulocytes % (auto) 0.1 %; Lymphocytes # (auto) 3.16 K/uL (1.20-3.40); Lymphocytes % (auto) 46.6 %; Mean Corpuscular Hemoglobin 27.9 pg (25.0-34.0); Mean Corpuscular Hgb Conc 30.5 g/dL (32.0-36.0); Mean Corpuscular Volume 91.4 fL (80.0-100.0); Mean Platelet Volume 11.8 fL (9.4-12.4); Monocytes # (auto) 0.55 K/uL (0.11-0.59); Monocytes % (auto) 8.1 %; Neutrophils # (auto) 2.83 K/uL (1.40-6.50); Neutrophils % (auto) 41.8 %; Platelet Count 213 K/uL (130-400); RDW Standard Deviation 50.2 fL (36.4-46.3); Red Blood Count 3.73 M/uL (4.20-5.40); White Blood Count 6.78 K/ul (4.8-10.8)
[2024-05-27 03:41] LABS: Albumin Level 3.5 gm/dl (3.4-5.0); BUN Creatinine Ratio 24.4 (10-20); Calcium 9.1 mg/dl (8.6-10.3); Creatinine Clr Calc Pharmacy 93.7 ml/min; Est GFR (African American) 96.4 ml/min; Est GFR (Non-African American) 83.2 ml/min; Magnesium 1.7 mg/dl (1.7-2.4); Phosphorus 3.2 mg/dl (2.5-4.9); Potassium 4.3 mmol/L (3.5-5.1)
[2024-05-27 03:49] LABS: ANTI-Xa, UFH(UnfractionatedHep 0.26 IU/ml (0.3-0.7); INR 2.5 (0.9-1.1); Prothrombin Time 25.1 Seconds (9.0-12.0)
--- NOTE | 2024-05-27 07:28 | Electrocardiogram Report ---
Test Reason : Blood Pressure : / mmHG Vent. Rate : 075 BPM Atrial Rate : 075 BPM P-R Int : 144 ms QRS Dur : 088 ms QT Int : 388 ms P-R-T Axes : 000 033 097 degrees QTc Int : 433 ms Ectopic atrial rhythm with occasional Premature ventricular complexes Nonspecific T wave abnormality Abnormal ECG Confirmed by Kwaku Dominguez ([id number]) on 05/27/2024 7:28:17 AM Referred By: REFERRED SELF Confirmed By:Syd Dominguez
--- NOTE | 2024-05-27 07:28 | Electrocardiogram Report ---
Test Reason : Blood Pressure : / mmHG Vent. Rate : 068 BPM Atrial Rate : 068 BPM P-R Int : 144 ms QRS Dur : 090 ms QT Int : 418 ms P-R-T Axes : -65 035 089 degrees QTc Int : 444 ms Unusual P axis, possible ectopic atrial rhythm Nonspecific ST abnormality Abnormal ECG Confirmed by Kwaku Dominguez ([id number]) on 05/27/2024 7:28:41 AM Referred By: REFERRED SELF Confirmed By:Syd Dominguez
[2024-05-27 10:24] LABS: ANTI-Xa, UFH(UnfractionatedHep 0.32 IU/ml (0.3-0.7)
[2024-05-27] MEDS: traMADol HCL 50 MG TABLET PO PRN (11:57)
--- NOTE | 2024-05-27 13:38 | Hospitalist Progress Note ---
Date of Service May 27, 2024 Assessment & Plan (1) Vertigo: (2) Nausea & vomiting: (3) Chest pain: (4) Morbid obesity due to excess calories: (5) History of pulmonary embolism: Plan 1) Intractable vertigo/nausea, vomiting and dizziness Resolved CT scan head negative Symptoms improved somewhat with IV fluid rehydration 2) Acute kidney injury Resolved Likely secondary to nausea and vomiting furosemide and losartan held for now 3) Systolic CHF/status post mitral valve surgery/CAD/history of stents x 2 chronic anticoagulation/hypertension The patient admitted to telemetry for serial cardiac enzymes, serial EKG's, cardiac rhythm monitoring Trop peak at 15 Cardiac telemetry--> inverted P waves in lead 2, V3-V6 suggests ectopic atrial rhythm Most recent echo on 04/11/2024 with ejection fraction 55-60% INR 2.5 today Continued metoprolol succinate, Continued aspirin Cardiology consulted, recommendations appreciated 4) T2DM Hold metformin and dulaglutide Placed on Accu-Cheks with NovoLog SSI 5) COPD/SMITA on CPAP at bedtime/history of PE Continue CPAP at bedtime Continue DuoNebs INR, 4.0 Continue anticoagulation as above once patient's INR returns to normal 6) Chronic pain syndrome Tramadol extended release Oxycodone prn moderate pain Code status: Full code Disposition: PCU, Observation VTE Prophylaxis: Warfarin (temporarily held due to supra-therapeutic INR) FENGI: [id number] consistent, heart-healthy Admission and Anticipated Discharge Date Admission Date: May 25, 2024 Supervising Physician Co-Signing Physician Notes I personally examined the patient and verified duran points of history and exam, discussed case, and agree with decision making and plan documented by Dr. Ch. Patient appears comfortable at rest, lungs clear b/l to anterior auscultation, regular rate and rhythm with ejection click, reproducible tenderness along left axillary line, beneath left breast (diffuse), and along sternal margin, no rash appreciated, no acute distress. Discussed at length patient's chronic pain, she does have a history of spinal stenosis and neurogenic claudication s/p extensive lumbar surgery 11/21/2023. She also notes that she has had some chronic neuropathic pain anteriorly since her MVR. Discussed at length that I do not think that increasing her opiates would be helpful for concern of increased tolerance and possible opioid induced hyperalgesia. At present, patient is maintained on tramadol 100 mg XR daily and oxycodone 10 mg twice daily by her PCP. Patient states she is not finding benefit with pregabalin 150 mg 3 times daily. She has not tried cannabinoids. We reviewed the importance of a multimodal approach, encourage patient to ambulate as tolerated, we will continue to trial topicals to see if we can improve pain control. Anticipate discharge tomorrow with clinical improvement. Subjective Patient seen and evaluated at bedside this morning. No acute events overnight. Continues to have L chest wall pain that is reproducible and positional. Review of Systems Review of Systems: reviewed, per HPI Physical Exam Physical Exam: Constitutional:no acute distress HEENT: NCAT, no conjunctival injection CV: regular rhythm, no murmur appreciated, extremities well-perfused, no LE edema Resp: CTABL, no increased work of breathing GI: nondistended MSK: no gross deformities appreciated, reproducible L chest wall pain Skin: warm, dry, no rash appreciated Neuro: alert, oriented, no focal neurologic deficit appreciated Results & Data Results & Data Vital Signs (Past 12 Hours) Vital Signs Temp Pulse Pulse Resp BP Pulse Ox O2 Del Method 05/27/24 13:26 64 16 96 Room Air 05/27/24 11:35 37.0 C 64 18 109/64 97 Room Air 05/27/24 08:00 Nasal Cannula 05/27/24 08:00 57 L 05/27/24 08:00 36.8 C 72 18 127/79 96 Room Air 05/27/24 07:10 66 16 98 Room Air 05/27/24 06:12 60 149/73 H 05/27/24 03:56 70 13 99 05/27/24 03:37 36.6 C 60 18 131/71 100 CPAP 05/27/24 01:45 66 128/71 O2 Flow Rate 05/27/24 13:26 05/27/24 11:35 05/27/24 08:00 2 05/27/24 08:00 05/27/24 08:00 05/27/24 07:10 05/27/24 06:12 05/27/24 03:56 2 05/27/24 03:37 05/27/24 01:45 Resident Activity Tracking Resident Involvement: Resident Care Provided Care Provided: Adult Hospital Medicine (2) Nausea & vomiting Vomiting type: unspecified Qualified Code(s): R11.2 - Nausea with vomiting, unspecified (3) Chest pain Chest pain type: unspecified Qualified Code(s): R07.9 - Chest pain, unspecified
[2024-05-27] MEDS: MoRPHine SULFATE 2 MG/ML CARP IV PRN (14:48)
--- NOTE | 2024-05-27 16:04 | Cardiology Consultation ---
Date of Consultation May 27, 2024 Assessment & Plan (1) Chest pain: (2) History of mitral valve replacement with mechanical valve: (3) Atrial fibrillation: (4) CAD (coronary artery disease): Plan 1. Chest pain: The nature of the chest pain is atypical. Similar to prior ep isodes which have been characterized as musculoskeletal or neurogenic. Despite severe and extended periods of symptoms no elevation of biomarkers suggesting this is noncardiac. I think a nitroglycerin can be discontinued. 2. Mitral valve disease: Status post mitral valve replacement. Normal functioning mechanical valve on echocardiography a couple months ago. On systemic anticoagulation with warfarin being adjusted at this time. 3. Atrial fibrillation: Seen in the postoperative setting. No clinical recurrence. 4. Coronary disease: She has remote history of coronary disease involving the circumflex artery. She underwent percutaneous intervention at this site previously. Angiography performed in anticipation of valve surgery did not demonstrate any additional obstructive lesions. No current symptoms suggestive of coronary insufficiency or angina. Continue aggressive secondary prevention with daily aspirin, warfarin and high-dose atorvastatin 5. Abnormal EKG: The patient did have some abnormal EKGs since admission. This primarily involved T-wave inversions. Concerning in the setting of chest pain, but her current symptoms are certainly noncardiac. A reverse record suggests that she has had similar EKGs in the past and has variable T-wave inversions. I do not think this requires further evaluation in the absence of new or worsening symptoms. History of Present Illness Reason for Consultation: Chest pain Requesting Physician: Dakota Attending Physician: Allison Pollock, History of Present Illness The patient is a 58-year-old woman with an extensive history of cardiac disease to include severe mitral regurgitation status post mitral valve replacement, postoperative atrial fibrillation, history of nonischemic cardiomyopathy and prior coronary disease requiring percutaneous intervention to left circumflex in 2011. She presents to the hospital due to dizziness, lightheadedness, vertiginous type symptoms and nausea and vomiting. He symptoms seem to have started fairly suddenly. She did not describe the symptoms as presyncopal. She did not experience syncope. She was not aware of associated heart palpitations or brown iting dyspnea. Her symptoms seemed to resolve over the course of yesterday she did develop severe chest and back discomfort yesterday afternoon. This required administration of nitroglycerin and narcotics for some relief. However, the pain persisted throughout the course of the evening and eventually resolved earlier this morning. She does report a history of extensive chest pain. Since her bypass surgery she has had nerve pain along her sternum. This is associated with a keloid scar. She has also had extensive back pain and right leg radiculopathy. She reports her current symptoms as similar episode she has had in the past. Recently she has been more ambulatory. She did not report limiting dyspnea with ambulation. No associated exertional chest pain. Her symptoms of significant dyspnea appeared to have improved significantly since her valve replacement in 2021. Allergies Allergy/AdvReac Type Severity Reaction Status Date / Time morphine AdvReac Mild Nausea Verified 04/29/24 07:47 Home Medications Medication Instructions Recorded Confirmed Type Bedside Commode #1 ea 08/04/22 05/07/24 Rx Hospital Bed Homecare #1 ea 08/12/22 05/07/24 Rx hydrocortisone 1 %-pramoxine 1 % 1 applic MI BID PRN hemorrhoids 05/17/23 05/25/24 Rx rectal foam (Proctofoam HC) #10 grams ipratropium bromide 17 2 puff inhalation TID #12.9 grams 05/17/23 05/25/24 Rx mcg/actuation HFA aerosol inhaler (Atrovent HFA) pregabalin 150 mg capsule 150 mg PO TID 30 days #90 caps 07/07/23 05/25/24 Rx blood-glucose meter (OneTouch #1 ea 07/13/23 05/07/24 Rx Verio Flex Meter) lidocaine 5 % topical patch 1 patch topical DAILY #15 ea 07/16/23 05/25/24 Rx (Lidoderm) aspirin 81 mg tablet,delayed 81 mg PO QAM 07/24/23 05/25/24 History release (Ecotrin Low Strength) fluticasone furoate 100 1 inh inhalation QAM 07/24/23 05/25/24 History mcg-vilanterol 25 mcg/dose inhalation powder (Breo Ellipta) blood sugar diagnostic (OneTouch #100 ea 07/27/23 05/07/24 Rx Verio test strips) lancets 30 gauge (OneTouch #100 ea 07/27/23 05/07/24 Rx UltraSoft 2 Lancet) nitroglycerin 0.4 mg sublingual 0.4 mg sublingual Q5M PRN Chest 08/09/23 05/25/24 Rx tablet Pain #30 tabs Stair [place] #1 ea 08/10/23 05/07/24 Rx metformin 500 mg tablet 1,000 mg (2 x 500 mg) PO BID 90 09/12/23 05/25/24 Rx days #360 tabs docusate sodium 100 mg capsule 100 mg PO BID #30 caps 09/25/23 05/25/24 Rx ipratropium 0.5 mg-albuterol 3 mg 3 ml NEB Q6H 10/26/23 05/25/24 History (2.5 mg base)/3 mL nebulization soln nicotine 21 mg/24 hr daily 21 mg transdermal QAM #7 ea 10/27/23 05/25/24 Rx transdermal patch (Nicoderm CQ) rimegepant 75 mg disintegrating 75 mg PO UD PRN Migraine Headache 11/07/23 05/25/24 History tablet (Nurtec ODT) atorvastatin 40 mg tablet 40 mg PO QPM 90 days #90 tabs 01/23/24 05/25/24 Rx losartan 25 mg tablet 25 mg PO QAM 90 days #90 tabs 01/23/24 05/25/24 Rx metoprolol succinate 25 mg 25 mg PO QAM 90 days #90 tabs 01/23/24 05/25/24 Rx tablet,extended release 24 hr pantoprazole 40 mg tablet,delayed 40 mg PO QPM #90 tabs 01/23/24 05/25/24 Rx release furosemide 40 mg tablet 80 mg (2 x 40 mg) PO QPM #120 tabs 02/13/24 05/25/24 Rx polyethylene glycol 3350 17 17 g PO UD PRN Constipation 02/16/24 05/25/24 History gram/dose oral powder dulaglutide 4.5 mg/0.5 mL 4.5 mg (0.5 mL) subcut Q7D #2 mL 02/28/24 05/25/24 Rx [facility] duloxetine 30 mg capsule,delayed 30 mg PO QAM 90 days #90 caps 04/29/24 05/25/24 Rx release potassium chloride 20 mEq 20 meq PO DAILY 90 days #90 tabs 04/29/24 05/25/24 Rx tablet,extended release tetanus-diphtheria toxoids-Td 2 Lf 0.5 ml IM ONCE #0.5 mL 04/29/24 05/25/24 Rx unit-2 Lf unit/0.5 mL IM suspension (TDVAX) chlorhexidine gluconate 0.12 % 15 ml mucous membrane TID 30 days 05/04/24 05/25/24 Rx mouthwash #120 mL acetaminophen 500 mg tablet 1,000 mg (2 x 500 mg) PO BID #60 05/07/24 05/25/24 Rx (Tylenol Extra Strength) tabs cyclobenzaprine 5 mg tablet 5 mg PO BID PRN muscle spasm 30 05/07/24 05/25/24 Rx days #20 tabs diclofenac sodium 1 % topical gel 4 g topical QID PRN Pain #100 grams 05/07/24 05/25/24 Rx (Arthritis Pain (diclofenac)) oxycodone 10 mg tablet 10 mg PO BID PRN pain #60 tabs 05/07/24 05/25/24 Rx tramadol 100 mg tablet,extended 100 mg PO DAILY 30 days #30 tabs 05/07/24 05/25/24 Rx release 24hr mphase warfarin 5 mg tablet 5 mg PO UD 05/25/24 05/25/24 History Patient History Medical History Neurogenic claudication due to lumbar spinal stenosis Mitral valve disease s/p MVR 08/2022, [facility] Acute lumbar radiculopathy Atrial fibrillation History of COVID-19 2020- no hospitalized, "moderate symptoms" > resolved Asthma-COPD overlap syndrome Chronic diastolic congestive heart failure GERD (gastroesophageal reflux disease) Hx of coronary artery disease Stents x2 (2010) CSF leak Remote hx > "resolved" per patient Degeneration of cervical intervertebral disc External hemorrhoids Hemiplegic migraine Vertebral artery stenosis Surgical History Status post left foot surgery Hx of arthroscopy of right knee History of facial surgery 2014, reconstruction sx. of jaw/face>no problems opening mouth since surgery History of open reduction and internal fixation (ORIF) procedure Left tibia, hardware intact History of mitral valve replacement with mechanical valve 08/2022, [facility] History of transesophageal echocardiography (GEORGETTE) 05/2022 History of hemorrhoidectomy ~2018, [facility] S/P left knee arthroscopy History of bilateral tubal ligation Status post right foot surgery History of esophagogastroduodenoscopy (EGD) History of colonoscopy History of heart artery stent Stents x2 (2010) History of cardiac cath ~2010- stents x2 ~2014 ([place])- no stents 04/2022- no stents Family History Mother Breast cancer, Onset Age: 64 Type 2 diabetes mellitus Father Diabetes Coronary heart disease Type 2 diabetes mellitus Myocardial infarction, Onset Age: 52 Family/Other Hypertension sibling Grandmother (Maternal) Cancer Grandfather (Maternal) Cancer Denies family history of Ovarian cancer Social History Smoking Status: Current every day smoker Tobacco Type: Cigarettes Age Started Using Tobacco: 13; Age Quit Using Tobacco: 58; packs per day: 0.5; Cigarettes Per Day: 6; Second Hand Exposure: No; Do You Dip or Chew Tobacco: No; Hx Alcohol Use: No Hx Substance Use: No Preferred Language: [place] Communication Ability: Effective Visual Impairment: No Limitations Hearing Ability: Normal Calender Inspector Required: No Beliefs That Will Affect Care: None marital status: Current Living Situation: Spouse Current Living Situation Comment: Lives at home with . Has caregiver come for help with ADLs current occupational status: disabled How many Children do You have: 5 Feels Safe at Home: Yes Childhood Exposure to Second-Hand Smoke: No Diet: low salt caffeine: Yes (1/2 cup of coffee a day) during the past year weight has: remained stable Dental Care, Regularly: No Physical Activity Frequency: 1-2 Times per Week Seatbelt Use: always Sunscreen Use: No Assistive Devices: Bedside Commode, Scooter/Electric Scooter and Walker Review of Systems Review of Systems: Per HPI. Tolerated breakfast and lunch today Physical Exam Physical Exam: She is alert and oriented x3. Mood affect appear normal. She answered all quest ions appropriately. HEENT: Sclerae are anicteric. Pupils are equal and reactive to light and accommodation. Extraocular movements were intact. Neuro: Cranial nerves intact Lungs: Lungs are clear to auscultation bilaterally. There are no rales wheezes or rhonchi. She has normal respiratory effort without use of accessory muscles. There is normal pulmonary excursion. Cardiac: The rhythm was regular. [place] S1 S1 and S2 was normal. There are no murmurs on examination. The PMI was not markedly displaced on palpation. Chest: She was notably tender in the precordial area and along the lateral rib cage. Extremities: Patient has bilateral radial pulses that are equal in intensity. There is no evidence cyanosis or clubbing. There was no evidence of significant peripheral edema bilaterally. Skin: There are no rashes noted on examination today. Results & Data Vital Signs (Past 12 Hours) Vital Signs Temp Pulse Pulse Resp BP Pulse Ox O2 Del Method 05/27/24 13:26 64 16 96 Room Air 05/27/24 11:35 37.0 C 64 18 109/64 97 Room Air 05/27/24 08:00 Nasal Cannula 05/27/24 08:00 57 L 05/27/24 08:00 36.8 C 72 18 127/79 96 Room Air 05/27/24 07:10 66 16 98 Room Air 05/27/24 06:12 60 149/73 H 05/27/24 03:56 70 13 99 O2 Flow Rate 05/27/24 13:26 05/27/24 11:35 05/27/24 08:00 2 05/27/24 08:00 05/27/24 08:00 05/27/24 07:10 05/27/24 06:12 05/27/24 03:56 2 Laboratory Results Abnormal Lab Results 05/26/24 05/26/24 05/27/24 17:41 19:58 02:56 WBC 6.78 RBC 3.73 L Hgb 10.4 L Hct 34.1 L MCV 91.4 MCH 27.9 MCHC 30.5 L RDW Std Deviation 50.2 H RDW Coeff of Majo 15.0 H Plt Count 213 MPV 11.8 Immature Gran % (Auto) 0.1 Neut % (Auto) 41.8 Lymph % (Auto) 46.6 Hendricks % (Auto) 8.1 Eos % (Auto) 3.1 Baso % (Auto) 0.3 Neut # (Auto) 2.83 Lymph # (Auto) 3.16 Hendricks # (Auto) 0.55 Eos # (Auto) 0.21 Baso # (Auto) 0.02 Immature Gran # (Auto) 0.01 PT 29.5 H 25.1 H INR 3.0 H 2.5 H APTT 42 H PTT Ratio 1.6 Heparin Anti-Xa, Unfract 0.26 L Sodium 137 Potassium 4.3 Chloride 103 Carbon Dioxide 29 Anion Gap 5 BUN 19 Creatinine 0.78 Est Cr Clr Drug Dosing 93.7 Est GFR ( Amer) 96.4 Est GFR (Non-Af Amer) 83.2 BUN/Creatinine Ratio 24.4 H Glucose 181 H Calcium 9.1 Phosphorus 3.2 D Magnesium 1.7 Troponin I High Sens 14.5 H 7.7 D 6.0 Albumin 3.5 05/27/24 09:59 WBC RBC Hgb Hct MCV MCH MCHC RDW Std Deviation RDW Coeff of Majo Plt Count MPV Immature Gran % (Auto) Neut % (Auto) Lymph % (Auto) Hendricks % (Auto) Eos % (Auto) Baso % (Auto) Neut # (Auto) Lymph # (Auto) Hendricks # (Auto) Eos # (Auto) Baso # (Auto) Immature Gran # (Auto) PT INR APTT PTT Ratio Heparin Anti-Xa, Unfract 0.32 Sodium Potassium Chloride Carbon Dioxide Anion Gap BUN Creatinine Est Cr Clr Drug Dosing Est GFR ( Amer) Est GFR (Non-Af Amer) BUN/Creatinine Ratio Glucose Calcium Phosphorus Magnesium Troponin I High Sens 6.2 Albumin Diagnostic Findings Echocardiogram 04/11/2024: Normal LV systolic function with ejection fraction of 55-60%. Mild LVH. Normally functioning prosthetic mitral valve with normal gradients. ECG Additional Comments: EKG demonstrated normal sinus rhythm with precordial T-wave inversions. PG Care Time/CCT Total # of Minutes Spent Total Time Spent with Patient: Total time spent is greater than 50% in coordination of care (as documented) at patient's floor/unit and/or counseling patient: Coding Level of Care Code 50201 IN/OBS CONSULT LVL 4,60M Diagnoses Chest pain R07.9 Chest pain type: unspecified History of mitral valve replacement with mechanical valve Z95.2 Atrial fibrillation I48.91 CAD (coronary artery disease) I25.10 (1) Chest pain Chest pain type: unspecified Qualified Code(s): R07.9 - Chest pain, unspecified
--- NOTE | 2024-05-28 10:28 | Discharge Summary ---
Date of Service May 28, 2024 Admission HPI Per Admitting Provider The patient is a 58-year-old female with a past medical history including COPD chronic systolic CHF hypertension, chronic pain syndrome, sacroiliitis history of TIA, peripheral neuropathy, diabetes mellitus type 2 coagulation, history of mitral valve replacement, valve, GERD, PTSD, depression, anxiety chronic low back pain, lumbar facet joint syndrome, and history of PE. The patient presents to the emergency department with symptoms that began 4 days ago including nausea, vomiting, that she attributes to similar episode of vertigo in the. 1 day ago she started developing left upper chest discomfort, it radiated toward her left shoulder. She did have difficulty taking some of her medications early on with the nausea and vomiting, but has done better over the past 24 hours Admission Exam Per Admitting Provider The patient is awake, alert and oriented 3, well developed and well nourished, normocephalic and atraumatic, lying in bed and in no acute distress. HEENT--PERRL, EOMI, mucous membranes and oropharynx mildly dry. Neck--supple. No JVD. No bruits. Thyroid normal, trachea midline, no adenopathy. Heart--normal S1 and S2. No murmurs, rubs or gallops. Lungs--clear bilaterally, no respiratory distress, no accessory muscle use. Abdomen--normal bowel sounds and soft. Nontender. Nondistended, no hernias or masses, no organomegaly. Extremities--no cyanosis or clubbing. No edema. Dermatologic--normal skin turgor, normal color, no abnormal lymph nodes, no rash. Neurologic--cranial nerves II through XII grossly intact. Rheumatologic--normal range of motion. Psychiatric--normal affect. Principal Diagnosis Musculoskeletal pain, fall Discharge Exam Constitutional:no acute distress HEENT: NCAT, no conjunctival injection CV: regular rhythm, no murmur appreciated, extremities well-perfused, no LE edema Resp: CTABL, no increased work of breathing GI: nondistended MSK: no gross deformities appreciated, reproducible L chest wall pain Skin: warm, dry, no rash appreciated Neuro: alert, oriented, no focal neurologic deficit appreciated Discharge Data Allergies Allergy/AdvReac Type Severity Reaction Status Date / Time morphine AdvReac Mild Nausea Verified 04/29/24 07:47 Consultations 05/25/24 13:54 ED Decision to Admit Stat 05/26/24 14:15 Consult Cardiology Routine Ordered Studies 05/25/24 11:38 CT head/brain wo con Stat 05/26/24 17:22 CTA chest dissec wo/w con [CT angio chest dissec wo/w con] Stat Hospital Course (1) Vertigo: (2) Nausea & vomiting: (3) Chest pain: (4) Morbid obesity due to excess calories: (5) History of pulmonary embolism: Plan 1) Intractable vertigo/nausea, vomiting and dizziness Resolved CT scan head negative Symptoms improved somewhat with IV fluid rehydration 2) Acute kidney injury Resolved Likely secondary to nausea and vomiting furosemide and losartan held for now 3) Systolic CHF/status post mitral valve surgery/CAD/history of stents x 2 chronic anticoagulation/hypertension The patient admitted to telemetry for serial cardiac enzymes, serial EKG's, cardiac rhythm monitoring Trop peak at 15 Cardiac telemetry--> inverted P waves in lead 2, V3-V6 suggests ectopic atrial rhythm Most recent echo on 04/11/2024 with ejection fraction 55-60% INR 2.5 today Continued metoprolol succinate, Continued aspirin 4) T2DM Hold metformin and dulaglutide Placed on Accu-Cheks with NovoLog SSI 5) COPD/SIMTA on CPAP at bedtime/history of PE Continue CPAP at bedtime Continue DuoNebs INR, 4.0 Continue anticoagulation as above once patient's INR returns to normal 6) Chronic pain syndrome Tramadol extended release Oxycodone prn moderate pain Code status: Full code Disposition: PCU, Observation VTE Prophylaxis: Warfarin (temporarily held due to supra-therapeutic INR) FENGI: [id number] consistent, heart-healthy Total Time Total Time Spent Total Time Spent (In Minutes): 35 min Total Time Includes: Examination of the Patient, Discharge Planning, Medication Reconciliation and Communication With Other Providers Discharge Plan Discharge Items Patient Disposition: Home - Self-Care Reason For Visit: JASON, CHEST PAIN, VERTIGO Discharge Diagnosis: Musculoskeletal Chest Pain Fall Activity: Resume your previous activity Non-emergency contact: Primary Care Provider Call non-emergency contact if: your symptoms worsen and your pain is not controlled Follow-up/Referrals: Sugar Weber MD [Primary Care Provider] - 06/04/24 1:00 pm Diet: Heart Healthy Addtl Attending Provider Instructions: You were admitted to the hospital for chest pain and vertigo. A thorough work up was done that did not reveal any concerns about your heart. You should resume taking your home medications as usual and follow up with your primary care physician. Prior to discharge you had a fall in she shower. You received a CT scan of your head and xrays that did not show any significant injury. A discharge summary will be sent to your primary care physician to ensure continuity of care. Please bring this discharge summary with you to your next office appointment so that your provider can review it at that time. Follow-up appointments: Make a follow-up appointment with your PCP within the next week. It is very important that you follow up with them shortly after discharge from the hospital. Keep all your follow-up appointments as already scheduled. If you cannot make an appointment, notify your provider. Medications: Your medication list has been reviewed and reconciled upon discharge to ensure accuracy and continuity of care. An updated list of all your medications is included with your hospital discharge paperwork. Please review this list closely, and make note of any changes. If you have any issues filling these prescriptions, please call [phone] and ask to leave a message for Dr. Fish Ch. Take your medications as instructed; do not skip a dose of your medicines. Make sure all of your doctors know every medicine you are taking (including owus-vgm-kvqdbka medicines, vitamins, and supplements). Call your primary care provider before taking any new medicines (including dyhx-dja-cvyylew medicines, vitamins, and supplements), because some of these may interact with your current medications, or may make your symptoms worse. Tell your primary care provider if you cannot afford your medications. CONTACT YOUR PRIMARY CARE PROVIDER if you experience any of the following: Continued chest pain that changes depending on your position Return of your vertigo Difficulty following your treatment plan, or difficulty taking medications CALL 911 OR GO TO THE EMERGENCY DEPARTMENT if you experience any of the following: Sudden, severe abdominal pain or nausea/vomiting Severe chest pain, or chest pain that radiates (moves) to your jaw or arm Sudden, severe shortness of breath or difficulty breathing Thank you for allowing us to participate in your care. Pending Studies at Discharge: No Stand-Alone Forms: [employer] Medications and DC Order Prescriptions: Continued (DME) Hospital Bed Homecare Misc See Rx Instructions .Route Qty: 1 0RF Rx Instructions: As directed-HOSPITAL BED, LENGTH OF NEED 99 MONTHS, DX CODE; Z98.890 Proctofoam HC 1-1 % foam 1 applic [place] BID PRN (Reason: hemorrhoids) Qty: 10 0RF Atrovent HFA 17 mcg/actuation HFA aerosol inhaler 2 puff INHALATION TID Qty: 12.9 5RF lidocaine [Lidoderm] 5 % adhesive patch,medicated 1 patch topical DAILY Qty: 15 1RF Rx Instructions: leave on most painful area for up to 12 hrs nitroglycerin 0.4 mg tablet, sublingual 0.4 mg sublingual Q5M PRN (Reason: Chest Pain) Qty: 30 6RF Rx Instructions: do not exceed 3 doses per episode (DME) [facility] [place] See Rx Instructions .Route .MEDSUPPLY Qty: 1 0RF Rx Instructions: To be installed and used as directed to allow safe ambulation of stairs in patient home atorvastatin 40 mg tablet 40 mg PO QPM 90 Days Qty: 90 2RF losartan 25 mg tablet 25 mg PO QAM 90 Days Qty: 90 5RF metoprolol succinate 25 mg tablet extended release 24 hr 25 mg PO QAM 90 Days Qty: 90 4RF pantoprazole 40 mg tablet,delayed release (DR/EC) 40 mg PO QPM Qty: 90 3RF furosemide 40 mg tablet 80 mg PO QPM Qty: 120 3RF Rx Instructions: MAY TAKE AN EXTRA 40MG DAILY, NEEDED, FOR WEIGHT GAIN. Trulicity 4.5 mg/0.5 mL pen injector 4.5 mg subcut Q7D Qty: 2 5RF Rx Instructions: please inject 4.5mg once every MONDAY chlorhexidine gluconate 0.12 % mouthwash 15 ml mucous membrane TID 30 Days Qty: 120 1RF Rx Instructions: Swish and spit tramadol 100 mg tablet, ER multiphase 24 hr 100 mg PO DAILY 30 Days Qty: 30 0RF oxycodone 10 mg tablet 10 mg PO BID PRN (Reason: pain) Qty: 60 0RF diclofenac sodium [Arthritis Pain (diclofenac)] 1 % gel 4 g topical QID PRN (Reason: Pain) Qty: 100 0RF cyclobenzaprine 5 mg tablet 5 mg PO BID PRN (Reason: muscle spasm) 30 Days Qty: 20 1RF acetaminophen [Tylenol Extra Strength] 500 mg tablet 1,000 mg PO BID Qty: 60 0RF (DME) Bedside Commode Misc See Rx Instructions .Route Qty: 1 0RF Rx Instructions: As directed pregabalin 150 mg capsule 150 mg PO TID 30 Days Qty: 90 3RF metformin 500 mg tablet 1,000 mg PO BID 90 Days Qty: 360 2RF (DME) blood-glucose meter [OneTouch Verio Flex meter] [facility] [place] See Rx Instructions .Route Qty: 1 0RF Rx Instructions: Check blood sugar 1-2 times daily (DME) OneTouch Verio test strips Strip See Rx Instructions .Route Qty: 100 3RF Rx Instructions: Test blood sugar once daily and as needed (DME) lancets [OneTouch UltraSoft 2 Lancet] 30 [place] [facility] [place] Rx Instructions .Route Qty: 100 3RF Rx Instructions: Test blood sugar once daily and as needed potassium chloride 20 mEq tablet extended release 20 meq PO DAILY 90 Days Qty: 90 3RF duloxetine 30 mg capsule,delayed release(DR/EC) 30 mg PO QAM 90 Days Qty: 90 3RF TDVAX 2-2 Lf unit/0.5 mL suspension 0.5 ml IM ONCE Qty: 0.5 0RF aspirin [Ecotrin Low Strength] 81 mg tablet,delayed release (DR/EC) 81 mg PO QAM fluticasone furoate-vilanterol [Breo Ellipta] 100-25 mcg/dose blister with device 1 inh INHALATION QAM docusate sodium 100 mg Capsule 100 mg PO BID Qty: 30 0RF ipratropium-albuterol 0.5 mg-3 mg(2.5 mg base)/3 mL solution for nebulization 3 ml NEB Q6H nicotine [Nicoderm CQ] 21 mg/24 hr Patch 24 Hour 21 mg transdermal QAM Qty: 7 0RF Nurtec ODT 75 mg tablet,disintegrating 75 mg PO UD PRN (Reason: Migraine Headache) Rx Instructions: 75 mg PO take one tablet at migraine onset as directed; polyethylene glycol 3350 17 gram/dose powder 17 g PO UD PRN (Reason: Constipation) warfarin 5 mg tablet 5 mg PO UD Rx Instructions: 15mg q , 10mg x 6 days per [facility] orally use as directed Discharge Orders: Discharge Order (Routine); Ordered 05/29/24 Ordered By: Fish Ch Admission Data Admit Date/Time: 05/27/24 17:18 Attending Provider: Allison Pollock Admit Provider: Fish Ch Primary Care Provider: Sugar Weber Other Providers: Haresh Jung; Lane Lafleur; Rene Whittington; Dwayne Guy; Linden Melissa; Girish Jones; Geovany Causey Jr; Mor Solis; Carolyn Aguila; Lorraine Mccauley; Kwaku Tafoya; Kwaku Dominguez; Bunny Mendoza; Nita Moon; Izaiah Chavez; Kaykay Charles; Joseph Mark; Miki Mckeon; Trae South; Tim Dior Other Interventions: Discharge Summary Assessment (RN) Last Done: 05/29/24 11:12 Supervising Physician Co-Signing Physician Notes I personally examined the patient and verified duran points of history and exam, discussed case, and agree with decision making and plan documented by Dr. Ch. Patient stable for discharge. Vertigo, nausea, vomiting have resolved. Had fall yesterday in shower prior to discharge, CT head negative, patient denies new pain or any neurological changes or residual concerns. Patient optimistic for discharge this morning. Advised her to follow-up with PCP.
[2024-05-28] MEDS: COUGH DROP (SUGAR FREE) LOZ 24 LOZ/1 BOX BUCCAL ONE (10:30)
[2024-05-28 11:33] LABS: INR 1.2 (0.9-1.1)
--- NOTE | 2024-05-28 13:30 | Communication Note ---
Date of Service: May 28, 2024 Notified by nursing at approximately 1310 that pt had a fall in the shower. Saw pt at bedside. She notes that she was taking a shower prior to getting ready for discharge. [place] lightheaded/dizzy and fell in shower. Denies LOC. Does not she hit left side of head. Complaining of right shower pain and pain in cervical spine. Notes low back pain, but states that it is chronic and uncharged from prior. On exam: in no acute distress, heart with RRR, lungs clear to auscultation B/L. Neuro exam without focal neurological deficit. CN II-XII intact. Strength 5/5 in UE and LE B/L. Some tenderness to palpation in anterior right shoulder and cervical spine. Pt in on warfarin, INR= 1.[address] of head and cervical spine. XR right shoulder. Will get repeat EKG. Upgrade to telemetry.
--- NOTE | 2024-05-28 14:59 | CT Scan Report ---
CT head/brain wo con CLINICAL HISTORY: Fall hit head Technique: Contiguous axial CT images of the head were acquired from the base of the skull to the solomon marilyn without intravenous contrast administration. Images were viewed in brain, [facility]. Automated dose lowering techniques and/or adjustment according to patient size were utilized for this exam. Comparison: Comparison is made to CT head 05/25/2024 Findings: The ventricles, basal cisterns, and cerebral sulci are normal. There is no acute intracranial hemorrh age or evidence of acute territorial infarction. Neither mass effect, shift of the midline structures , nor abnormal extra-axial fluid collections are shown. Imaged portions of the paranasal sinuses and mastoid air cells are clear. The orbits appear normal. There are no acute fractures of the calvaria or scalp swelling. Postsurgical changes are seen in the right orbit. Impression: No acute intracranial hemorrhage, no evidence of acute territorial infarction or other acute intracra nial disease process. ACT 112: Negative or not required by law. Electronically signed by: Nickolas Horta M.D. 05/28/2024 2:57 PM
--- NOTE | 2024-05-28 15:11 | CT Scan Report ---
CT SCAN OF THE CERVICAL SPINE CLINICAL HISTORY: Fall. Neck pain. COMPARISON STUDY: CT scan of the cervical spine dated 02/22/2023. TECHNIQUE: CT scan of the cervical spine is performed from the skull base to the upper thoracic spine . Images are reviewed in the axial, sagittal, and coronal planes. IV contrast was not administered fo r this examination. A dose lowering technique was utilized adhering to the principles of ALARA. CT DOSE: 1046.47 mGy.cm FINDINGS: Skeletal structures: The skeletal structures are osteopenic. There is no evidence of fracture or subl uxation involving the cervical spine. Vertebral body height and alignment are maintained. There is st raightening of the cervical lordosis. Large anterior osteophytes are seen throughout. The odontoid p rocess and lateral masses are intact. The atlantoaxial articulation is preserved noting mild producti ve degenerative change. The spinous processes appear intact. There is jqsi-ay-cvstajys multilevel cer vical spondylosis. Uncovertebral and facet arthropathy contribute to neural foraminal narrowing at se veral levels. Midline sternotomy wires are partially visualized. Intervertebral discs: There is moderate to severe disc space narrowing at all cervical levels. Central canal: Posterior disc osteophyte complexes are seen at all cervical levels between C3-C4 and C6-C7. This likely contributes to multilevel acquired compromise of the central canal. Soft tissues: The prevertebral and paraspinous soft tissues are within normal limits. The thyroid gla nd is enlarged and heterogeneous. Atherosclerotic calcification is seen in the carotid bulbs. Calvarium: The visualized calvarium at the skull base appears intact. Brain parenchyma: Partially visualized brain parenchyma at the skull base is within normal limits. Sinuses and mastoids: There is trace mucosal thickening within the maxillary antra. The mastoid air c ells are well pneumatized. Lung apices: Mild emphysematous change is noted. Apical lung parenchyma is otherwise clear as visuali zed. IMPRESSION: 1. There is no evidence of fracture or subluxation involving the cervical spine. 2. Osteopenia and spondylotic change as above. ACT 112: Negative or not required by law. Electronically signed by: Marin De La Rosa M.D. 05/28/2024 3:10 PM
--- NOTE | 2024-05-28 15:12 | XRay Report ---
RIGHT SHOULDER 3 VIEWS CLINICAL HISTORY: Fall. Right shoulder pain. FINDINGS: 3 views of the right shoulder are compared to study dated 02/16/2024. The skeletal structure s are osteopenic. There is no radiographic evidence of fracture or dislocation. Productive degenerati ve change is seen at the acromioclavicular joint. The glenohumeral articulation is maintained. There is evidence of calcific tendinopathy. The overlying soft tissues are otherwise normal as imaged. Midl ine sternotomy wires are noted and there is evidence of prior cardiac valve surgery. The heart is enl arged. The imaged lung parenchyma appears clear. IMPRESSION: 1. No acute bony abnormality is identified. 2. Calcific tendinopathy. Electronically signed by: Marin De La Rosa M.D. 05/28/2024 3:11 PM
[2024-05-28] MEDS: WARFARIN SOD 10 MG TAB PO SCH (17:39)
[2024-05-29 04:08] VITALS: RESP 18
[2024-05-29 07:40] VITALS: BP 125/53; TEMP 98.6; O2SAT 94
--- NOTE | 2024-05-29 08:26 | Electrocardiogram Report ---
Test Reason : Blood Pressure : */* mmHG Vent. Rate : 65 BPM Atrial Rate : 65 BPM P-R Int : 144 ms QRS Dur : 88 ms QT Int : 412 ms P-R-T Axes : * 23 68 degrees QTcB Int : 428 ms Ectopic atrial vs junctional rhythm Otherwise normal Confirmed by Kwaku Dominguez ([id number]) on 05/29/2024 8:26:19 AM Referred By: REFERRED SELF Confirmed By: Kwaku Dominguez
[2024-05-29 11:16] VITALS: PULSE 68
== END 2024-05-29 11:31 | disposition home or self-care (01) | DRG 149 ==
LOC: 2E 11:18 → ED 11:18 → SUATTDRO 15:09 → 2E 16:04 → 3N 05-27 22:06 → 2N 05-28 15:15
DX: E66.9 Obesity, unspecified; Z79.85 Long-term (current) use of injectable non-insulin antidiabetic drugs; F17.210 Nicotine dependence, cigarettes, uncomplicated; K21.9 Gastro-esophageal reflux disease without esophagitis; F41.9 Anxiety disorder, unspecified; R42 Dizziness and giddiness; Z95.5 Presence of coronary angioplasty implant and graft; I50.22 Chronic systolic (congestive) heart failure; Z98.1 Arthrodesis status; R11.2 Nausea with vomiting, unspecified; G47.33 Obstructive sleep apnea (adult) (pediatric); R79.1 Abnormal coagulation profile; F43.10 Post-traumatic stress disorder, unspecified; N17.9 Acute kidney failure, unspecified; Z88.5 Allergy status to narcotic agent; Z79.899 Other long term (current) drug therapy; Z86.16 Personal history of COVID-19; Z91.81 History of falling; Z79.01 Long term (current) use of anticoagulants; Z79.891 Long term (current) use of opiate analgesic; Z68.34 Body mass index [BMI] 34.0-34.9, adult; R07.89 Other chest pain; Z86.711 Personal history of pulmonary embolism; M54.50 Low back pain, unspecified; Z86.73 Personal history of transient ischemic attack (TIA), and cerebral infarction without residual deficits; I11.0 Hypertensive heart disease with heart failure; E78.5 Hyperlipidemia, unspecified; Z79.84 Long term (current) use of oral hypoglycemic drugs; J44.9 Chronic obstructive pulmonary disease, unspecified; E11.9 Type 2 diabetes mellitus without complications; Z79.82 Long term (current) use of aspirin; I25.10 Atherosclerotic heart disease of native coronary artery without angina pectoris; F32.A Depression, unspecified; G89.4 Chronic pain syndrome; Z95.2 Presence of prosthetic heart valve

== ENCOUNTER 2024-07-20 15:26 | Inpatient (IN) ==
--- NOTE | 2024-07-20 15:40 | Emergency Department Note ---
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 (Amiodarone Iv Bolus & Drip) 1 each IV NOW STA; Protocol Stop: 07/20/24 16:14 Last Admin: 07/20/24 16:29 Dose: 1 each Documented By: SRL Amiodarone HCl (Amiodarone 200 Mg Tab) 200 mg PO BIDM KARLA Stop: 08/20/24 19:59 Last Admin: 07/27/24 09:14 Dose: 200 mg Documented By: Admin: 07/26/24 17:15 Dose: 200 mg Documented By: Admin: 07/26/24 07:58 Dose: 200 mg Documented By: Admin: 07/25/24 16:39 Dose: 200 mg Documented By: Admin: 07/25/24 08:06 Dose: 200 mg Documented By: Admin: 07/24/24 16:18 Dose: 200 mg Documented By: Admin: 07/24/24 08:23 Dose: 200 mg Documented By: OSS Co-signed By: ISCA(2) Admin: 07/23/24 18:09 Dose: 200 mg Documented By: Admin: 07/23/24 09:21 Dose: 200 mg Documented By: Admin: 07/22/24 16:06 Dose: 200 mg Documented By: Admin: 07/22/24 09:18 Dose: 200 mg Documented By: Admin: 07/21/24 20:57 Dose: 200 mg Documented By: GUILLERMINA Amiodarone HCl (Amiodarone 200 Mg Tab) 200 mg PO NOW ONE Stop: 07/21/24 11:17 Last Admin: 07/21/24 14:17 Dose: 200 mg Documented By: ISAC Aspirin (Aspirin 81 Mg Ectab) [facility] [place]: 08/20/24 08:59 Last Admin: 07/27/24 09:14 Dose: 81 mg Documented By: Admin: 07/26/24 07:58 Dose: 81 mg Documented By: Admin: 07/25/24 08:06 Dose: 81 mg Documented By: Admin: 07/24/24 08:23 Dose: 81 mg Documented By: OSS Co-signed By: ISAC(2) Admin: 07/23/24 08:39 Dose: 81 mg Documented By: Admin: 07/22/24 09:19 Dose: 81 mg Documented By: Admin: 07/21/24 09:18 Dose: 81 mg Documented By: ISAC Atorvastatin Calcium (Atorvastatin 40 Mg Tab) 80 mg PO [facility] Stop: 08/26/24 08:59 Last Admin: 07/27/24 09:23 Dose: 80 mg Documented By: MEAGAN Benzocaine/Butamben/Tetracaine HCl (Benzocaine/Tetracain/Butam 50 Appln/5 Gm Can) Confirm Administered Dose 50 appln EXT .STK-MED ONE Stop: 07/22/24 07:21 Last Admin: 07/22/24 09:16 Dose: Not Given Documented By: DEBRA Cyclobenzaprine HCl (Cyclobenzaprine Hcl 5 Mg Tab) 5 mg PO NOW STA Stop: 07/21/24 00:24 Last Admin: 07/21/24 00:28 Dose: Not Given Documented By: GUILLERMINA Diclofenac Sodium (Diclofenac Sod 1% Gel 100 Gm Tube) 4 gm EXT QID PRN; Protocol PRN Reason: pain Stop: 08/21/24 20:59 Last Admin: 07/26/24 23:46 Dose: 4 gm Documented By: Admin: 07/25/24 20:54 Dose: 4 gm Documented By: Admin: 07/25/24 12:05 Dose: 4 gm Documented By: Admin: 07/25/24 00:55 Dose: 4 gm Documented By: SEShilpi Admin: 07/23/24 03:43 Dose: 4 gm Documented By: JOSE Diphenhydramine HCl (Diphenhydramine Capsule 25 Mg Cap) 25 mg PO NOW ONE Stop: 07/26/24 16:37 Last Admin: 07/26/24 17:21 Dose: 25 mg Documented By: MILAD Duloxetine HCl (Duloxetine Hcl 30 Mg Cap) 30 mg PO QAM KARLA Stop: 08/20/24 08:59 Last Admin: 07/27/24 09:21 Dose: 30 mg Documented By: Admin: 07/26/24 07:58 Dose: 30 mg Documented By: Admin: 07/25/24 08:06 Dose: 30 mg Documented By: Admin: 07/24/24 08:23 Dose: 30 mg Documented By: OSS Co-signed By: ISAC(2) Admin: 07/23/24 08:37 Dose: 30 mg Documented By: Admin: 07/22/24 09:19 Dose: 30 mg Documented By: Admin: 07/21/24 09:18 Dose: 30 mg Documented By: ISAC Empagliflozin (Empagliflozin 10 Mg Tab) 10 mg PO DAILY KARLA Stop: 08/25/24 08:59 Last Admin: 07/27/24 09:14 Dose: 10 mg Documented By: Admin: 07/26/24 07:57 Dose: 10 mg Documented By: ISAC Enoxaparin Sodium (Enoxaparin Inj 120 Mg/0.8 Ml Syr) 111 mg SQ Q12H KARLA Stop: 08/22/24 09:59 Last Admin: 07/24/24 21:14 Dose: 111 mg Documented By: Admin: 07/24/24 10:39 Dose: 111 mg Documented By: JEFF Co-signed By: JONAH Admin: 07/23/24 21:19 Dose: 111 mg Documented By: Admin: 07/23/24 10:53 Dose: 111 mg Documented By: PALOMO Etomidate (Etomidate 2 Mg/Ml 20 Ml Vial) Confirm Administered Dose 40 mg IV .STK-MED ONE Stop: 07/22/24 07:13 Last Admin: 07/22/24 09:16 Dose: Not Given Documented By: DEBRA Fentanyl Citrate (Fentanyl Citrate Pf 100 Mcg/2 Ml Vial) 50 mcg IV NOW STA Stop: 07/20/24 16:34 Last Admin: 07/20/24 16:44 Dose: 50 mcg Documented By: SRL Fentanyl Citrate (Fentanyl Citrate Pf 100 Mcg/2 Ml Vial) 50 mcg IV NOW STA Stop: 07/20/24 18:14 Last Admin: 07/20/24 18:36 Dose: 50 mcg Documented By: SRL Fluticasone/Vilanterol (Fluticasone/Vilanterol 100/25mcg 14 Puffs/Inhaler) [facility] [place]: 08/20/24 08:59 Last Admin: 07/27/24 09:15 Dose: Not Given Documented By: Admin: 07/26/24 07:59 Dose: 1 puffs Documented By: Admin: 07/25/24 08:06 Dose: 1 puffs Documented By: Admin: 07/24/24 08:24 Dose: 1 puffs Documented By: OSS Co-signed By: ISAC(2) Admin: 07/23/24 08:42 Dose: 1 puffs Documented By: Admin: 07/22/24 09:18 Dose: 1 puffs Documented By: Admin: 07/21/24 09:18 Dose: 1 puffs Documented By: ISAC Furosemide (Furosemide 40 Mg/4 Ml Vial) 40 mg IV ONE ONE Stop: 07/20/24 15:36 Last Admin: 07/20/24 16:10 Dose: 40 mg Documented By: SRL Furosemide (Furosemide 40 Mg/4 Ml Vial) 40 mg IV ONE ONE Stop: 07/21/24 10:37 Last Admin: 07/21/24 14:59 Dose: 40 mg Documented By: ISAC Furosemide (Furosemide 40 Mg Tab) 40 mg PO NOW ONE Stop: 07/24/24 13:37 Last Admin: 07/24/24 14:11 Dose: 40 mg Documented By: OSS Co-signed By: JONAH Furosemide (Furosemide 40 Mg Tab) [facility] [place]: 08/24/24 08:59 Last Admin: 07/27/24 09:15 Dose: 40 mg Documented By: Admin: 07/26/24 07:58 Dose: 40 mg Documented By: Admin: 07/25/24 08:06 Dose: 40 mg Documented By: ISAC Gadobutrol (Gadobutrol 65ml Vial) 10 ml IV ONCE ONE Stop: 07/21/24 12:54 Last Admin: 07/21/24 12:53 Dose: 10 ml Documented By: AMIRA Glycopyrrolate (Glycopyrrolate 0.2 Mg/Ml Vial) Confirm Administered Dose 0.4 mg .ROUTE .STK-MED ONE Stop: 07/22/24 07:07 Last Admin: 07/22/24 09:10 Dose: Not Given Documented By: DEBRA Heparin Sodium/Dextrose (Heparin Iv Adult Wt-Based Standard *No* Initial Bolus Protocol) 1 each IV ONE STA; Protocol Stop: 07/21/24 11:04 Last Admin: 07/21/24 14:14 Dose: 1 each Documented By: ISAC Heparin Sodium/Dextrose (Heparin Iv Adult Wt-Based Standard *No* Initial Bolus Protocol) 1 each IV ONE STA; Protocol Stop: 07/27/24 09:03 Last Admin: 07/27/24 10:19 Dose: 1 each Documented By: MEAGAN Hydromorphone HCl (Hydromorphone Inj 1 Mg/Ml Syringe) 1 mg IV NOW STA Stop: 07/21/24 00:26 Last Admin: 07/21/24 00:39 Dose: 1 mg Documented By: GUILLERMINA Hydromorphone HCl (Hydromorphone Inj 0.5 Mg/0.5 Ml Syr) 0.5 mg IV NOW STA Stop: 07/21/24 04:38 Last Admin: 07/21/24 04:45 Dose: 0.5 mg Documented By: GUILLERMINA Hydromorphone HCl (Hydromorphone Inj 0.5 Mg/0.5 Ml Syr) 0.5 mg IV NOW STA Stop: 07/21/24 09:48 Last Admin: 07/21/24 10:23 Dose: 0.5 mg Documented By: ISAC Hydromorphone HCl (Hydromorphone Inj 0.5 Mg/0.5 Ml Syr) 0.5 mg IV NOW STA Stop: 07/21/24 20:37 Last Admin: 07/21/24 20:57 Dose: 0.5 mg Documented By: GUILLERMINA Hydromorphone HCl (Hydromorphone Inj 0.5 Mg/0.5 Ml Syr) 0.5 mg IV NOW STA Stop: 07/22/24 05:38 Last Admin: 07/22/24 05:41 Dose: 0.5 mg Documented By: GUILLERMINA Hydromorphone HCl (Hydromorphone Inj 0.5 Mg/0.5 Ml Syr) 0.25 mg IV NOW STA Stop: 07/25/24 02:40 Last Admin: 07/25/24 03:27 Dose: 0.25 mg Documented By: RAFAELA Hydromorphone HCl (Hydromorphone Inj 0.5 Mg/0.5 Ml Syr) 0.5 mg IV NOW STA Stop: 07/27/24 01:07 Last Admin: 07/27/24 01:20 Dose: 0.5 mg Documented By: STEFFANIE Hydromorphone HCl (Hydromorphone Inj 0.5 Mg/0.5 Ml Syr) 0.5 mg IV NOW STA Stop: 07/27/24 01:47 Last Admin: 07/27/24 02:03 Dose: 0.5 mg Documented By: STEFFANIE Hydromorphone HCl (Hydromorphone Inj 0.5 Mg/0.5 Ml Syr) 0.5 mg IV NOW STA Stop: 07/27/24 04:57 Last Admin: 07/27/24 05:16 Dose: 0.5 mg Documented By: STEFFANIE Hydromorphone HCl (Hydromorphone Inj 0.5 Mg/0.5 Ml Syr) 0.5 mg IV NOW STA Stop: 07/27/24 10:25 Last Admin: 07/27/24 10:47 Dose: 0.5 mg Documented By: MEAGAN Magnesium Sulfate/Dextrose (Magnesium Sulfate / D5w) 1 gm in 100 mls @ 100 mls/hr IV NOW STA Stop: 07/20/24 16:43 Last Infusion: 07/20/24 16:29 Dose: Infused Documented By: Admin: 07/20/24 15:50 Dose: 100 mls/hr Documented By: GUERITA Amiodarone HCl/Dextrose (Nexterone / D5w) 150 mg in 100 mls @ 600 mls/hr IV NOW STA Stop: 07/20/24 16:22 Last Infusion: 07/20/24 16:35 Dose: Infused Documented By: GUERITA Co-signed By: JOSE Admin: 07/20/24 16:24 Dose: 600 mls/hr Documented By: GUERITA Co-signed By: JOSE Amiodarone HCl/Dextrose (Nexterone / D5w) 360 mg in 200 mls @ 33.333 mls/hr IV ONE ONE Stop: 07/20/24 22:22 Last Infusion: 07/20/24 22:19 Dose: Infused Documented By: GUILLERMINA Co-signed By: ML Admin: 07/20/24 16:40 Dose: 1 mg/min, 33.3 mls/hr Documented By: SRL Co-signed By: JOSE Amiodarone HCl/Dextrose (Nexterone / D5w) 360 mg in 200 mls @ 16.667 mls/hr IV .Q12H KARLA Stop: 08/19/24 22:14 Last Infusion: 07/21/24 11:28 Dose: Infused Documented By: AMS Co-signed By: SANDRA Infusion: 07/21/24 07:03 Dose: 0.5 mg/min, 16.7 mls/hr Documented By: AMS Co-signed By: GUILLERMINA Admin: 07/21/24 04:21 Dose: 0.5 mg/min, 16.7 mls/hr Documented By: GUILLERMINA Co-signed By: HSM Infusion: 07/21/24 04:21 Dose: Infused Documented By: GUILLERMINA Co-signed By: HSM Admin: 07/20/24 21:54 Dose: 0.5 mg/min, 16.7 mls/hr Documented By: GUILLERMINA Co-signed By: HANS Ceftriaxone Sodium (Rocephin) 2,000 mg in 50 mls @ 100 mls/hr IV NOW STA Stop: 07/20/24 17:55 Last Infusion: 07/20/24 18:00 Dose: Infused Documented By: Admin: 07/20/24 17:31 Dose: 100 mls/hr Documented By: SRL Potassium Chloride (K Rafael / Wtr) 10 meq in 100 mls @ 100 mls/hr IV Q1H KARLA Stop: 07/20/24 21:14 Last Admin: 07/20/24 20:09 Dose: Not Given Documented By: Infusion: 07/20/24 20:09 Dose: Infused Documented By: Infusion: 07/20/24 19:39 Dose: 25 mls/hr Documented By: Admin: 07/20/24 19:30 Dose: 100 mls/hr Documented By: HARESH Amiodarone HCl/Dextrose (Nexterone / D5w) 150 mg in 100 mls @ 600 mls/hr IV NOW STA Stop: 07/20/24 19:45 Last Infusion: 07/20/24 20:01 Dose: Infused Documented By: HARESH Co-signed By: SOLOMON Admin: 07/20/24 19:50 Dose: 600 mls/hr Documented By: HARESH Co-signed By: JOSE Heparin Sodium/Dextrose (Heparin Sodium/Dextrose) 25,000 units in 500 mls @ 28 mls/hr IV .[id number] KARLA; Protocol Stop: 08/20/24 11:14 Last Titration: 07/22/24 19:11 Dose: Infused Documented By: GH Co-signed By: DEBRA Titration: 07/22/24 07:07 Dose: 1,400 units/hr, 28 mls/hr Documented By: GUILLERMINA Co-signed By: DEBRA Admin: 07/22/24 05:42 Dose: 1,400 units/hr, 28 mls/hr Documented By: GUILLERMINA Co-signed By: HSM Titration: 07/22/24 05:42 Dose: Infused Documented By: GUILLERMINA Co-signed By: HSM Titration: 07/21/24 21:44 Dose: 1,400 units/hr, 28 mls/hr Documented By: GUILLERMINA Co-signed By: GH Titration: 07/21/24 19:06 Dose: 1,400 units/hr, 28 mls/hr Documented By: ISAC Co-signed By: GUILLERMINA Admin: 07/21/24 14:59 Dose: 1,400 units/hr, 28 mls/hr Documented By: AMS Co-signed By: SANDRA Ceftriaxone Sodium (Rocephin) 2,000 mg in 50 mls @ 100 mls/hr IV NOW STA Stop: 07/22/24 15:54 Last Infusion: 07/22/24 16:37 Dose: Infused Documented By: Admin: 07/22/24 16:05 Dose: 100 mls/hr Documented By: DEBRA Ceftriaxone Sodium (Rocephin) 2,000 mg in 50 mls @ 100 mls/hr IV Q24H KARLA Stop: 08/01/24 15:29 Last Infusion: 07/23/24 16:21 Dose: Infused Documented By: Admin: 07/23/24 15:42 Dose: 100 mls/hr Documented By: DLR Heparin Sodium/Dextrose (Heparin Sodium/Dextrose) 25,000 units in 500 mls @ 27 mls/hr IV .[id number] [facility]; Protocol Stop: 08/26/24 09:59 Last Admin: 07/27/24 10:15 Dose: 1,350 units/hr, 27 mls/hr Documented By: MEAGAN Co-signed By: HE Insulin Aspart (Insulin Aspart Per Unit Charge) 0 units SC ACHS [facility] Stop: 08/19/24 20:59 Last Admin: 07/27/24 09:13 Dose: 5 units Documented By: MEAGAN Co-signed By: HE Admin: 07/26/24 21:09 Dose: Not Given Documented By: Admin: 07/26/24 17:20 Dose: 6 units Documented By: MILAD Co-signed By: HE Admin: 07/26/24 11:58 Dose: 2 units Documented By: ISAC Co-signed By: XIOMARA(2) Admin: 07/26/24 08:05 Dose: 5 units Documented By: ISAC Co-signed By: XIOMARA(2) Admin: 07/25/24 21:18 Dose: 4 units Documented By: YULISA Co-signed By: JIM Admin: 07/25/24 16:42 Dose: 6 units Documented By: ISAC Co-signed By: HE Admin: 07/25/24 11:42 Dose: 7 units Documented By: ISAC Co-signed By: KJGayla Admin: 07/25/24 08:14 Dose: 8 units Documented By: AMS Co-signed By: VICENTE Admin: 07/24/24 21:27 Dose: Not Given Documented By: K Admin: 07/24/24 17:33 Dose: 6 units Documented By: DLTahir Co-signed By: MEAGAN Admin: 07/24/24 11:59 Dose: 6 units Documented By: OSS Co-signed By: ISAC(2) Admin: 07/24/24 08:38 Dose: 7 units Documented By: OSS Co-signed By: ISAC(2) Admin: 07/23/24 21:17 Dose: 1 units Documented By: GH Co-signed By: HANS Admin: 07/23/24 18:14 Dose: 8 units Documented By: DLR Co-signed By: HERLINDA Admin: 07/23/24 12:05 Dose: 8 units Documented By: DLR Co-signed By: CB Admin: 07/23/24 08:35 Dose: 8 units Documented By: JONAH Co-signed By: HERLINDA Admin: 07/22/24 19:54 Dose: 6 units Documented By: JOSE Co-signed By: SANDIP Admin: 07/22/24 16:14 Dose: 1 units Documented By: DEBRA Co-signed By: DIONE Admin: 07/22/24 12:15 Dose: Not Given Documented By: Admin: 07/22/24 09:30 Dose: Not Given Documented By: Admin: 07/21/24 20:56 Dose: 2 units Documented By: GUILLERMINA Co-signed By: JOSE Admin: 07/21/24 17:42 Dose: 6 units Documented By: ISAC Co-signed By: MILAD Admin: 07/21/24 14:28 Dose: 4 units Documented By: ISAC Co-signed By: MILAD Admin: 07/21/24 09:16 Dose: 3 units Documented By: ISAC Co-signed By: DAWOOD Admin: 07/20/24 21:52 Dose: 21 units Documented By: GUILLERMINA Co-signed By: HANS Insulin Aspart (Insulin Aspart Per Unit Charge) 0 units SC UD PRN PRN Reason: snacking Stop: 08/22/24 10:24 Last Admin: 07/23/24 10:42 Dose: 3 units Documented By: JONAH Co-signed By: HERLINDA Insulin Glargine (Lantus Per Unit Charge) 14 units SC ONE ONE Stop: 07/21/24 13:31 Last Admin: 07/21/24 14:28 Dose: 14 units Documented By: ISAC Co-signed By: MILAD Insulin Glargine (Lantus Per Unit Charge) 10 units SC DAILY KARLA; Protocol Stop: 08/21/24 08:59 Last Admin: 07/23/24 08:34 Dose: 10 units Documented By: JONAH Co-signed By: HERLINDA Admin: 07/22/24 09:40 Dose: 10 units Documented By: DEBRA Co-signed By: LA Insulin Glargine (Lantus Per Unit Charge) 8 units SC DAILY KARLA; Protocol Stop: 08/21/24 08:59 Last Admin: 07/24/24 08:37 Dose: 8 units Documented By: OSS Co-signed By: ISAC(2) Insulin Glargine (Lantus Per Unit Charge) 4 units SC DAILY KARLA; Protocol Stop: 08/21/24 08:59 Last Admin: 07/27/24 09:13 Dose: 4 units Documented By: MEAGAN Co-signed By: HE Admin: 07/26/24 08:05 Dose: 4 units Documented By: ISAC Co-signed By: XIOMARA(2) Admin: 07/25/24 08:14 Dose: 4 units Documented By: AMS Co-signed By: VICENTE Ioversol (Optiray 320 125ml) 118 ml IV ONCE ONE Stop: 07/26/24 19:02 Last Admin: 07/26/24 19:01 Dose: 118 ml Documented By: ANN Ketamine HCl (Ketamine Hcl 10mg/Ml Syr) Confirm Administered Dose 50 mg .ROUTE .STK-MED ONE Stop: 07/22/24 07:03 Last Admin: 07/22/24 09:09 Dose: Not Given Documented By: DEBRA Levalbuterol HCl (Levalbuterol 1.25 Mg/3 Ml Neb) 1.25 mg NEB NOW STA Stop: 07/20/24 15:36 Last Admin: 07/20/24 15:42 Dose: 1.25 mg Documented By: SRL Lidocaine (Lidocaine 5% 1 Patch) 2 patch TD QAM KARLA Stop: 08/23/24 13:49 Last Admin: 07/27/24 09:15 Dose: 2 patch Documented By: Admin: 07/26/24 07:59 Dose: 2 patch Documented By: Admin: 07/25/24 08:07 Dose: 2 patch Documented By: Admin: 07/24/24 14:19 Dose: 2 patch Documented By: JEFF Co-signed By: JONAH Lidocaine HCl (Lidocaine 2% 2 Ml Vial/Amp(20mg/Ml)) Confirm Administered Dose 4 ml INFIL .STK-MED ONE Stop: 07/22/24 07:07 Last Admin: 07/22/24 09:11 Dose: Not Given Documented By: DEBRA Lorazepam (Lorazepam 2 Mg/1 Ml Vial) 1 mg IV ONCE PRN PRN Reason: for MRI Stop: 08/20/24 09:21 Last Admin: 07/26/24 21:49 Dose: 1 mg Documented By: Admin: 07/21/24 10:55 Dose: 1 mg Documented By: ISAC Lorazepam (Lorazepam 2 Mg/1 Ml Vial) 1 mg IV NOW RUST Stop: 07/23/24 22:07 Last Admin: 07/23/24 22:22 Dose: 1 mg Documented By: GH Losartan Potassium (Losartan Potassium 25 Mg Tab) [facility] [place] Stop: 08/20/24 08:59 Last Admin: 07/21/24 09:17 Dose: 25 mg Documented By: ISAC Magnesium Sulfate/Dextrose (Magnesium Sulfate 1gm / D5w Bag) Confirm Administered Dose 1 gm IV .STK-MED ONE Stop: 07/20/24 15:32 Last Admin: 07/20/24 15:49 Dose: Not Given Documented By: SRL Metoprolol Succinate (Metoprolol Succ 25mg Ext Rel Tab) 25 mg PO [facility] Stop: 08/20/24 08:59 Last Admin: 07/27/24 09:14 Dose: 25 mg Documented By: Admin: 07/26/24 07:58 Dose: Not Given Documented By: Admin: 07/25/24 08:06 Dose: 25 mg Documented By: Admin: 07/24/24 08:24 Dose: 25 mg Documented By: JEFF Co-signed By: ISAC(2) Admin: 07/23/24 09:21 Dose: 25 mg Documented By: Admin: 07/22/24 09:19 Dose: 25 mg Documented By: Admin: 07/21/24 09:17 Dose: 25 mg Documented By: ISAC Miscellaneous (Stat Iv Infusion Titration Per Protocol) 1 each N/A NOW RUST Stop: 07/20/24 16:14 Last Admin: 07/20/24 16:28 Dose: Not Given Documented By: SRL Miscellaneous (Remove Lidoderm Patch) 1 each N/A DAILY@2100 [facility] Stop: 08/23/24 20:59 Last Admin: 07/26/24 21:09 Dose: 1 each Documented By: Admin: 07/25/24 20:51 Dose: 1 each Documented By: Admin: 07/24/24 22:09 Dose: 1 each Documented By: RAFAELA Multi-Ingredient Mouthwash/Gargle (First - Mouthwash Blm 5 Ml Udp) 5 ml PO ONE ONE Stop: 07/26/24 16:32 Last Admin: 07/26/24 17:42 Dose: 5 ml Documented By: MILAD Nitroglycerin (Nitroglycerin 2% Ointment 30gm Tube) 1 inch EXT NOW STA Stop: 07/20/24 15:36 Last Admin: 07/20/24 18:00 Dose: Not Given Documented By: SRL Nystatin (Nystatin Susp 500,000 U/5 Ml Udc) 10 ml PO TID KARLA Stop: 08/05/24 10:59 Last Admin: 07/27/24 09:16 Dose: 10 ml Documented By: Admin: 07/26/24 21:10 Dose: 10 ml Documented By: Admin: 07/26/24 14:19 Dose: 10 ml Documented By: Admin: 07/26/24 11:29 Dose: 10 ml Documented By: ISAC Oxycodone HCl (Oxycodone Hcl Ir 5 Mg Tab (Immediate Release)) 10 mg PO NOW STA Stop: 07/20/24 20:33 Last Admin: 07/20/24 20:41 Dose: 10 mg Documented By: HARESH Oxycodone HCl (Oxycodone Hcl Ir 5 Mg Tab (Immediate Release)) 10 mg PO BID PRN PRN Reason: pain Stop: 08/04/24 08:59 Last Admin: 07/23/24 15:18 Dose: 10 mg Documented By: Admin: 07/23/24 03:46 Dose: 10 mg Documented By: Admin: 07/22/24 12:28 Dose: 10 mg Documented By: Admin: 07/22/24 00:41 Dose: 10 mg Documented By: Admin: 07/21/24 16:40 Dose: 10 mg Documented By: ISAC Oxycodone HCl (Oxycodone Hcl Ir 5 Mg Tab (Immediate Release)) 10 mg PO Q6H PRN PRN Reason: pain Stop: 08/04/24 08:59 Last Admin: 07/27/24 09:13 Dose: 10 mg Documented By: Admin: 07/27/24 03:24 Dose: 10 mg Documented By: Admin: 07/26/24 21:04 Dose: 10 mg Documented By: Admin: 07/26/24 10:54 Dose: 10 mg Documented By: Admin: 07/26/24 04:07 Dose: 10 mg Documented By: Admin: 07/25/24 20:58 Dose: 10 mg Documented By: Admin: 07/25/24 12:05 Dose: 10 mg Documented By: Admin: 07/24/24 21:15 Dose: 10 mg Documented By: K Admin: 07/24/24 14:25 Dose: 10 mg Documented By: JEFF Co-signed By: JONAH Pantoprazole Sodium (Pantoprazole 40 Mg Tab) 40 mg PO QPM KARLA Stop: 08/19/24 21:33 Last Admin: 07/26/24 21:09 Dose: 40 mg Documented By: Admin: 07/25/24 20:49 Dose: 40 mg Documented By: Admin: 07/24/24 21:15 Dose: 40 mg Documented By: Admin: 07/23/24 21:18 Dose: 40 mg Documented By: Admin: 07/22/24 19:54 Dose: 40 mg Documented By: Admin: 07/21/24 20:57 Dose: 40 mg Documented By: Admin: 07/20/24 22:00 Dose: 40 mg Documented By: GUILLERMINA Pneumococcal 20-Valent Conj Vacc (Pneumococcal Vaccine (Pcv20) 20-Susana Conj-Dip Crm/Pf 0.5 Ml Syr) 0.5 ml IM .ONCE ONE Stop: 07/20/24 22:09 Last Admin: 07/20/24 22:38 Dose: Not Given Documented By: GUILLERMINA Polyethylene Glycol (Polyethylene (Miralax) 17 Gm Pack) 17 gm PO DAILY PRN PRN Reason: Constipation Stop: 08/20/24 16:41 Last Admin: 07/21/24 17:42 Dose: 17 gm Documented By: ISAC Potassium Chloride (Potassium Chloride Crtab 20 Meq Tabcr) 40 meq PO NOW STA Stop: 07/20/24 19:37 Last Admin: 07/20/24 19:54 Dose: 40 meq Documented By: HARESH Propofol (Propofol Iv Emulsion 10 Mg/Ml 20 Ml Vial) Confirm Administered Dose 200 mg IV .STK-MED ONE Stop: 07/22/24 07:07 Last Admin: 07/22/24 09:16 Dose: Not Given Documented By: DEBRA Sacubitril/Valsartan (Valsartan/Sacubitril 26/24mg Tab) 1 tab PO BID KARLA Stop: 08/24/24 20:59 Last Admin: 07/27/24 09:14 Dose: 1 tab Documented By: Admin: 07/26/24 21:09 Dose: 1 tab Documented By: Admin: 07/26/24 07:56 Dose: 1 tab Documented By: Admin: 07/25/24 20:50 Dose: 1 tab Documented By: YULISA Sennosides (Senna 8.6 Mg Tab) 17.2 mg PO HS [facility] Stop: 08/20/24 20:59 Last Admin: 07/26/24 21:12 Dose: 17.2 mg Documented By: Admin: 07/25/24 20:58 Dose: 17.2 mg Documented By: Admin: 07/24/24 22:08 Dose: 17.2 mg Documented By: Admin: 07/23/24 21:18 Dose: 17.2 mg Documented By: Admin: 07/22/24 20:07 Dose: Not Given Documented By: Admin: 07/21/24 20:58 Dose: Not Given Documented By: GUILLERMINA Sodium Chloride (Sodium Chloride 0.65% Na Soln 45 Ml ([place])) 2 sprays NA BID PRN PRN Reason: Congestion Stop: 08/25/24 16:32 Last Admin: 07/26/24 18:09 Dose: 2 sprays Documented By: MILAD Sodium Zirconium Cyclosilicate (Sodium Zirconium Cyclosilicate 10 Gm Packet) 10 gm PO DAILY@1100 KARLA Stop: 08/22/24 10:59 Last Admin: 07/26/24 11:28 Dose: 10 gm Documented By: Admin: 07/25/24 11:39 Dose: 10 gm Documented By: Admin: 07/24/24 10:19 Dose: 10 gm Documented By: JEFF Co-signed By: JONAH Admin: 07/23/24 13:13 Dose: 10 gm Documented By: JONAH Warfarin Sodium (Warfarin Sod 5 Mg Tab) 5 mg PO NOW ONE Stop: 07/20/24 19:39 Last Admin: 07/20/24 20:10 Dose: 5 mg Documented By: HARESH Warfarin Sodium (Warfarin Sod 5 Mg Tab) 10 mg PO [email or web address] KARLA Stop: 08/20/24 15:59 Last Admin: 07/23/24 01:48 Dose: Not Given Documented By: Admin: 07/23/24 01:47 Dose: Not Given Documented By: JOSE Warfarin Sodium (Warfarin Sod 10 Mg Tab) 10 mg PO NOW ONE Stop: 07/22/24 18:58 Last Admin: 07/22/24 19:54 Dose: 10 mg Documented By: JOSE Warfarin Sodium (Warfarin Sod 10 Mg Tab) 10 mg PO [email or web address] KARLA Stop: 08/22/24 15:59 Last Admin: 07/26/24 15:39 Dose: 10 mg Documented By: Admin: 07/24/24 16:18 Dose: 10 mg Documented By: Admin: 07/23/24 15:39 Dose: 10 mg Documented By: DLR Warfarin Sodium (Warfarin Sod 5 Mg Tab) 5 mg PO Th@1600 KARLA Stop: 08/24/24 15:59 Last Admin: 07/25/24 16:39 Dose: 5 mg Documented By: AMS Warfarin Sodium (Warfarin Sod 5 Mg Tab) 5 mg PO DAILY@1600 KARLA Stop: 07/24/24 15:59 Last Admin: 07/23/24 15:41 Dose: 5 mg Documented By: NEREYDAR Discharge Plan Visit Data Chief Complaint: Shortness of Breath/Dyspnea Stated Complaint: SOB ED Provider: Pierre Garcia Discharge Problem: Atrial flutter with rapid ventricular response, CHF (congestive heart failure), Chest pain, Shortness of breath Patient Disposition: Admitted As Inpatient Discharge Instructions Interventions: ED Discharge Assessment Last Done: 07/20/24 21:00 Discharge Problem: CHF (congestive heart failure) Qualifiers: Heart failure type: unspecified Heart failure chronicity: acute Qualified Code(s): I50.9 - Heart failure, unspecified Chest pain Qualifiers: Chest pain type: unspecified Qualified Code(s): R07.9 - Chest pain, unspecified
[2024-07-20] MEDS: ALBUT/IPRATROP 3MG/0.5MG NEB 3 ML VIAL ONE (15:42)
[2024-07-20] MEDS: LEVALBUTEROL 1.25 MG/3 ML NEB NEB STA (15:42)
[2024-07-20] MEDS: MAGNESIUM SULFATE 1GM / D5W BAG IV ONE (15:49)
[2024-07-20] MEDS: MAGNESIUM SULFATE / D5W 1 GM/100 ML BAG IV STA (15:50)
[2024-07-20 16:00] LABS: Base Excess VBG -10.6 mEq/L; HCO3 VBG 14 mmol/L; Oxygen Saturation VBG 73.1 %; PCO2 VBG 28 mmHg (38-50); PO2 VBG 41 mmHg; pH VBG 7.31 (7.36-7.41)
--- NOTE | 2024-07-20 16:04 | XRay Report ---
SINGLE VIEW CHEST CLINICAL HISTORY: Dyspnea FINDINGS: An AP, portable, upright chest radiograph is compared to study dated 05/25/2024. The patient is status post midline sternotomy and cardiac valve surgeries. The heart is enlarged. There is mild p ulmonary vascular congestion. Atelectasis is noted at the lung bases. The lungs and pleural spaces ar e otherwise clear. No pneumothorax is seen. The skeletal structures are osteopenic. The bony thorax i s grossly intact. Calcific tendinopathy is seen in the right shoulder. IMPRESSION: Cardiomegaly with mild pulmonary vascular congestion. ACT 112: Negative or not required by law. Electronically signed by: Marin De La Rosa M.D. 07/20/2024 4:02 PM
[2024-07-20] MEDS: FUROSEMIDE 40 MG/4 ML VIAL IV ONE (16:10)
[2024-07-20] MEDS ORDERED: 0.2 MICRON FILTER SET 1 EACH IV STA (16:13)
[2024-07-20 16:20] LABS: iSTAT Creatinine 0.8 mg/dl (0.6-1.3); iSTAT Hemoglobin 9.9 g/dl (12.0-16.0); iSTAT Ionized Calcium 1.14 mmol/l (1.12-1.32); iSTAT Potassium 3.9 mmol/L (3.3-5.0)
[2024-07-20] MEDS: AMIODARONE / D5W 150 MG/100 ML BAG IV STA ×2 (16:24→19:50)
[2024-07-20] MEDS: STAT IV Infusion **Titration per Protocol STA (16:28)
[2024-07-20] MEDS: AMIODARONE IV BOLUS & DRIP IV STA (16:29)
[2024-07-20] MEDS: AMIODARONE / D5W 360 MG/200 ML BAG IV ONE (16:40)
[2024-07-20] MEDS: fentaNYL citrate PF 100 MCG/2 ML VIAL IV STA ×2 (16:44→18:36)
[2024-07-20 17:01] LABS: Appearance Urine Turbid (Clear); Bacteria Urine Automated 2+ (None Seen); Bilirubin Urine 1+ (Negative); Blood Urine 1+ (Negative); Color Urine Dark Yellow; Epithelial Cell Urine Auto >20 /hpf (0-2); Glucose Urine UA Negative (Negative); Hyaline Casts Urine Present /lpf (None Presnt); Ketones Urine Trace (Negative); Leukocyte Esterase Urine 3+ (Negative); Nitrite Urine Negative (Negative); Protein Urine 1+ (Negative); RBC Urine Automated 0-2 /hpf (0-2); Specific Gravity Urine 1.026 (1.000-1.030); Urobilinogen Urine Positive (Negative); WBC Urine Automated >50 /hpf (0-5)
[2024-07-20] MEDS: cefTRIAXone SODIUM 2,000 MG/50 ML BAG IV STA (17:31)
[2024-07-20 17:35] LABS: Basophils # (auto) 0.01 K/uL (0.00-0.20); Basophils % (auto) 0.2 %; Eosinophils # (auto) 0.01 K/uL (0.00-0.50); Eosinophils % (auto) 0.2 %; Hematocrit (blood only) 32.1 % (37.0-47.0); Hemoglobin 9.8 g/dl (12.0-16.0); Immature Granulocytes # (auto) 0.02 K/uL (0.01-0.20); Immature Granulocytes % (auto) 0.3 %; Lymphocytes # (auto) 1.11 K/uL (1.20-3.40); Lymphocytes % (auto) 18.4 %; Mean Corpuscular Hemoglobin 27.2 pg (25.0-34.0); Mean Corpuscular Hgb Conc 30.5 g/dL (32.0-36.0); Mean Corpuscular Volume 89.2 fL (80.0-100.0); Mean Platelet Volume 10.4 fL (9.4-12.4); Monocytes # (auto) 0.23 K/uL (0.11-0.59); Monocytes % (auto) 3.8 %; Neutrophils # (auto) 4.66 K/uL (1.40-6.50); Neutrophils % (auto) 77.1 %; Nucleated RBC # (auto) 0.04 K/uL (0.00-0.12); Nucleated RBC % (auto) 0.7 %; Platelet Count 273 K/uL (130-400); RDW Coefficient of Variation 16.8 % (11.5-14.5); RDW Standard Deviation 54.2 fL (36.4-46.3); White Blood Count 6.04 K/ul (4.8-10.8)
[2024-07-20 17:47] LABS: Albumin Level 3.5 gm/dl (3.4-5.0); BUN Creatinine Ratio 13.2 (10-20); Bilirubin,Total 0.9 mg/dl (0.2-1.0); Creatinine Clr Calc Pharmacy 81.9 ml/min; Est GFR (Non-African American) 69.1 ml/min; Globulin 3.5 gm/dl (2.5-4.0); Potassium 3.9 mmol/L (3.5-5.1)
[2024-07-20 17:53] LABS: Troponin I High Sensitivity 29.9 pg/ml (0-14)
[2024-07-20 18:00] LABS: INR 2.3 (0.9-1.1); Partial Thromboplastin Ratio 1.2; Partial Thromboplastin Time 31 Seconds (21-31); Prothrombin Time 22.8 Seconds (9.0-12.0)
[2024-07-20] MEDS: NITROGLYCERIN 2% OINTMENT 30GM TUBE EXT STA (18:00)
[2024-07-20 18:45] LABS: iSTAT Arterial Blood Gas HCO3 19 meg/L (19-24); iSTAT Arterial Blood Gas pCO2 35 mmHg (35-46); iSTAT Arterial Blood Gas pH 7.35 (7.35-7.45); iSTAT Arterial Blood Gas pO2 40 mmHg (80-95); iSTAT Carbon Dioxide 20 mmol/L (24-31); iSTAT Hematocrit 33 % (37-47); iSTAT Hemoglobin 11.2 g/dl (12.0-16.0); iSTAT Potassium 3.2 mmol/L (3.3-5.0); iSTAT Sodium 131 mmol/L (135-144)
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
[2024-07-20] MEDS: POTASSIUM CHLORIDE / WTR 10 MEQ/100 ML PLCT IV SCH (19:30)
[2024-07-20] MEDS ORDERED: 0.2 MICRON FILTER SET 1 EACH IV ONE (19:36)
[2024-07-20] MEDS: POTASSIUM CHLORIDE CRTAB 20 MEQ TABCR PO STA (19:54)
[2024-07-20] MEDS: WARFARIN SOD 5 MG TAB PO ONE (20:10)
[2024-07-20] MEDS ORDERED: CARBOHYDRATES FOR HYPOGLYCEMIA PO PRN (20:12)
[2024-07-20] MEDS ORDERED: DEXTROSE 50% 50 ML SYRINGE IV PRN (20:12)
[2024-07-20] MEDS ORDERED: GLUCOSE 10 TAB/TUBE PO PRN (20:12)
[2024-07-20] MEDS ORDERED: GLUCOSE 40% GEL 15 GM TUBE PO PRN (20:12)
[2024-07-20] MEDS ORDERED: GLUCAGON FOR INJ 1 MG VIAL SQ PRN (20:12)
[2024-07-20 20:23] LABS: Magnesium 1.9 mg/dl (1.7-2.4)
[2024-07-20 20:31] LABS: Troponin I High Sensitivity 23.8 pg/ml (0-14)
[2024-07-20 20:34] LABS: Adenovirus PCR Not Detected (NotDetected); Bordetella parapertussis PCR Not Detected (NotDetected); Bordetella pertussis PCR Not Detected (NotDetected); Chlamydia pneumoniae PCR Not Detected (NotDetected); Coronavirus 229E PCR Not Detected (NotDetected); Coronavirus CoV-2 (COVID19)PCR Not Detected (NotDetected); Coronavirus HKU1 PCR Not Detected (NotDetected); Coronavirus NL63 PCR Not Detected (NotDetected); Coronavirus OC43PCR Not Detected (NotDetected); Human Metapneumovirus PCR Not Detected (NotDetected); Influenza A PCR Not Detected (NotDetected); Influenza B PCR Not Detected (NotDetected); Mycoplasma pneumoniae PCR Not Detected (NotDetected); Parainfluenza Virus 1 PCR Not Detected (NotDetected); Parainfluenza Virus 2 PCR Not Detected (NotDetected); Parainfluenza Virus 3 PCR Not Detected (NotDetected); Parainfluenza Virus 4 PCR Not Detected (NotDetected); Respiratory Syncytial VirusPCR Not Detected (NotDetected); Rhinovirus/Enterovirus PCR Not Detected (NotDetected)
[2024-07-20] MEDS: oxyCODONE HCL IR 5 MG TAB (IMMEDIATE RELEASE) PO STA (20:41)
[2024-07-20] MEDS: INSULIN ASPART PER UNIT CHARGE SC SCH (21:52)
[2024-07-20] MEDS: AMIODARONE / D5W 360 MG/200 ML BAG IV SCH (21:54)
[2024-07-20] MEDS: PANTOprazole 40 MG TAB PO SCH (22:00)
[2024-07-20] MEDS: PNEUMOCOCCAL VACCINE (PCV20) 20-VAL CONJ-DIP CRM/PF 0.5 ML SYR IM ONE (22:38)
--- NOTE | 2024-07-20 23:53 | Communication Note ---
Date of Service: July 20, 2024 Deb is 58F w/ hx of CHF, COPD, chronic pain syndrome, lumbar disc herniation and spinal stenosis w/ radiculopathy, prior TIA, T2DM w/ neuropathy, GERD, prior PE, SMITA on CPAP, HLD, and HTN who was admitted for A Fib/Flutter w/ RVR. Called to bedside by nursing at 2300 d/t acute left sided weakness in upper and lower extremity. Nursing noted flaccidity of the extremities and new onset cervical neck and lumbar back pain. Of note, patient had L3-S1 fusion performed 11/21/23. Patient notes acute onset of left upper and lower extremity weakness, increased from her baseline. This was significantly concerning to her. During the same time frame she also began to experience what she describes as neck and low back spasms, which is a chronic problem for which she typically takes muscle relaxants at home. She denies chest pain, dyspnea, headaches, or lightheadedness. Examination revealed: Anxious speech, PERRLA w/ EOMI, CN grossly intact, no dys arthria. Regular rate and rhythm w/ lungs CTAB. LUE strength 3/5 and LLE strength 3/5 w/ sensation grossly intact. Distal pulses 2+ bilaterally. Significant tenderness to palpation of cervical and lumbar spine. Labs at 1800 reviewed: INR 2.3, Glucose 456 from 528, Mg 1.9, AST/ALT/Alk Phos elevated, Imaging revealed: Cardiomegaly w/ pulmonary congestion Assessment/Plan: - Eval for acute stroke, obtain STAT non-contrast CT head as stroke alert, Hx concerning for acute stroke given admission for AFib/Flutter and prior Hx of TIAs and PEs - Weakness resolved w/o residual sx - Contacted [facility], review of imaging negative, hx most concerning for muscular spasm at this time, would proceed w/ MRI brain/C-spine if symptoms return - Non-contrast CT of cervical and lumbar spine obtained - CT C-spine indicative of critical stenosis, MRI ordered per recommendations - Dilaudid provided for acute back pain, would continue to hold home Flexeril given contraindication w/ conduction anomalies - Continue to follow back pain/spasms Resident Activity Tracking Resident Involvement: Resident Care Provided Care Provided: Adult [facility]
[2024-07-21] MEDS: CYCLOBENZAPRINE HCL 5 MG TAB PO STA (00:28)
[2024-07-21] MEDS: HYDROmorphone INJ 1 MG/ML SYRINGE IV STA (00:39)
--- NOTE | 2024-07-21 02:25 | CT Scan Report ---
Exam(s): CT HEAD Without Contrast EXAM: CT Head Without Intravenous Contrast CLINICAL HISTORY: Reason for exam: Acute Left Side Weakness, Stroke Alert. TECHNIQUE: Axial computed tomography images of the head/brain without intravenous contrast. CTDI is 53.89 mGy and DLP is 764.9 mGy-cm. Automated exposure control was utilized for the study. A dose lowering technique was utilized adhering to the principles of ALARA. COMPARISON: Prior head CT from May 28, 2024. FINDINGS: Brain: Unremarkable. No hemorrhage. No significant white matter disease. No edema. Ventricles: Unremarkable. No ventriculomegaly. Bones/joints: Status post ORIF of the lateral right orbit. No acute fracture. Soft tissues: Unremarkable. Sinuses: Unremarkable as visualized. No acute sinusitis. Mastoid air cells: Unremarkable as visualized. No mastoid effusion. IMPRESSION: No evidence of acute intracranial pathology. Electronically signed by: Marysol Mauro MD 07/21/24 02:24 AM
--- NOTE | 2024-07-21 02:34 | CT Scan Report ---
Exam(s): CT C SPINE EXAM: CT Cervical Spine Without Intravenous Contrast CLINICAL HISTORY: Reason for exam: Severe acute pain with weakness. TECHNIQUE: Axial computed tomography images of the cervical spine without intravenous contrast. CTDI is 39.4 mGy and DLP is 1079.83 mGy-cm. Automated exposure control was utilized for the study. A dose lowering technique was utilized adhering to the principles of ALARA. COMPARISON: Prior CT scan of the cervical spine from May 28, 2024. FINDINGS: The study is limited secondary to motion artifact. Vertebrae: Unremarkable. No acute fracture. 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 Discs/spinal canal/neural foramina: No acute findings. Critical spinal canal stenosis at C4-5 and C5-6. Soft tissues: Unremarkable. IMPRESSION: No evidence of acute cervical spine pathology. Critical spinal canal stenosis at C4-5 and C5-6. Recommend MRI of the cervical spine to evaluate for myelopathy. Electronically signed by: Marysol Mauro MD 07/21/24 02:33 AM
--- NOTE | 2024-07-21 02:40 | CT Scan Report ---
Exam(s): CT L SPINE EXAM: CT Lumbar Spine Without Intravenous Contrast CLINICAL HISTORY: Reason for exam: Acute sever pain w/ weakness. TECHNIQUE: Axial computed tomography images of the lumbar spine without intravenous contrast. CTDI is 39.4 mGy and DLP is 1079.83 mGy-cm. Automated exposure control was utilized for the study. A dose lowering technique was utilized adhering to the principles of ALARA. COMPARISON: Prior CT scan of lumbar spine from February 16, 2024. FINDINGS: Vertebrae: Status post posterior decompression of L3, L4 and L5 with interbody and posterior fusion of L3-S1 with transpedicular screws and connecting rods in place. No acute fracture. Discs/spinal canal/neural foramina: No acute findings. No spinal canal stenosis. Soft tissues: There is a fluid collection in the operative bed extending to the subcutaneous fat. IMPRESSION: No evidence of acute lumbar spine pathology. Status post posterior decompression, interbody and posterior fusion of L3- S1. There is a epidural fluid collection extending to the subcutaneous fat. If there is continued clinical concern, an MRI may be of benefit for further evaluation. Electronically signed by: Marysol Mauro MD 07/21/24 02:39 AM
[2024-07-21] MEDS: HYDROmorphone INJ 0.5 MG/0.5 ML SYR IV STA ×3 (04:45→20:57)
[2024-07-21 07:17] LABS: Hematocrit (blood only) 34.9 % (37.0-47.0); Hemoglobin 10.4 g/dl (12.0-16.0); Immature Granulocytes # (auto) 0.04 K/uL (0.01-0.20); Immature Granulocytes % (auto) 0.5 %; Lymphocytes # (auto) 1.25 K/uL (1.20-3.40); Lymphocytes % (auto) 15.8 %; Mean Corpuscular Hgb Conc 29.8 g/dL (32.0-36.0); Mean Corpuscular Volume 90.6 fL (80.0-100.0); Mean Platelet Volume 10.4 fL (9.4-12.4); Monocytes % (auto) 3.8 %; Neutrophils % (auto) 79.9 %; Nucleated RBC # (auto) 0.03 K/uL (0.00-0.12); Nucleated RBC % (auto) 0.4 %; Platelet Count 271 K/uL (130-400); RDW Coefficient of Variation 17.2 % (11.5-14.5); RDW Standard Deviation 56.7 fL (36.4-46.3); Red Blood Count 3.85 M/uL (4.20-5.40); White Blood Count 7.89 K/ul (4.8-10.8)
[2024-07-21 07:46] LABS: INR 2.5 (0.9-1.1); Prothrombin Time 24.7 Seconds (9.0-12.0)
[2024-07-21 07:53] LABS: Albumin Globulin Ratio 1.1 (0.9-2); Albumin Level 3.9 gm/dl (3.4-5.0); BUN Creatinine Ratio 16.3 (10-20); Bilirubin,Total 0.5 mg/dl (0.2-1.0); Calcium 8.9 mg/dl (8.6-10.3); Creatinine Clr Calc Pharmacy 49.9 ml/min; Est GFR (African American) 44.8 ml/min; Est GFR (Non-African American) 38.7 ml/min; Globulin 3.5 gm/dl (2.5-4.0); Magnesium 2.2 mg/dl (1.7-2.4); Potassium 5.6 mmol/L (3.5-5.1); Total Protein 7.4 gm/dl (6.0-8.3)
[2024-07-21] MEDS: METOPROLOL SUCC 25MG EXT REL TAB PO SCH (09:17)
[2024-07-21] MEDS: LOSARTAN POTASSIUM 25 MG TAB PO SCH (09:17)
[2024-07-21] MEDS: FLUTICASONE/VILANTEROL 100/25MCG 14 PUFFS/INHALER INH SCH (09:18)
[2024-07-21] MEDS: ASPIRIN 81 MG ECTAB PO SCH (09:18)
[2024-07-21] MEDS: DULoxetine HCL 30 MG CAP PO SCH (09:18)
--- NOTE | 2024-07-21 09:43 | Hospitalist Progress Note ---
Date of Service July 21, 2024 Assessment & Plan (1) Atrial flutter: (2) Acute systolic CHF (congestive heart failure): (3) Status post mitral valve replacement with metallic valve: (4) Elevated LFTs: (5) COPD (chronic obstructive pulmonary disease): (6) History of TIA (transient ischemic attack): (7) Type 2 diabetes mellitus with obesity: (8) Chronic anticoagulation: (9) Obstructive sleep apnea on CPAP: (10) History of tobacco abuse: Plan 58-year-old female with past medical history of CHF, coronary artery disease hypertension, chronic pain syndrome, TIA, type 2 diabetes mellitus, history of mitral valve replacement 2 years ago on anticoagulation with warfarin, tobacco use disorder, COPD who presents to [facility] ED via EMS on 07/20/2024 due to complaints of chest pain and shortness of breath for the past 4 days. Patient was found to be in atrial flutter and had a chest x-ray which showed cardiomegaly with pulmonary vascular congestion. ED spoke with cardiology and patient was started on amiodarone drip. #Atrial flutter #Acute congestive heart failure, presumably diastolic #Coronary artery disease #Mechanical mitral valve on anticoagulation with warfarin #Essential hypertension #Hyperlipidemia Patient is currently on amiodarone drip Check TSH Continue telemetry monitoring She is on warfarin with current INR being 2.5 with goal INR between 2.5-3.5 given mechanical mitral valve Patient received IV Lasix in ED with improvement in her shortness of breath 2D echo I/O monitoring Daily weights Hold losartan for now in light of hyperkalemia Continue aspirin Hold statin in light of elevated LFTs Continue Toprol-XL 25 mg p.o. daily Cardiology has been consulted, awaiting cardiology consult and recommendations #History of TIA #Worsening left-sided weakness #Status post L3/S1 spinal decompression and fusion by Dr. Cheney in November 2023 CT of the head showed no evidence of acute intracranial pathology CT of the cervical spine showed critical spinal canal stenosis at C4-C5 and C5- C6 CT of the L-spine shows status post decompression, interbody and posterior fusion of L3-S1. There is epidural fluid collection extending to the subcutaneous fat. MRI of the head, C-spine and L-spine pending Neurochecks every 4 hours PT/OT Neurology consulted Await neurology consult and recommendations #Abnormal LFTs Hold statin for now Hepatitis screen is pending Monitor LFTs #Mild JASON #Hypokalemia Patient states she has been in the past that she has CKD but cannot recall the stage Patient did receive IV Lasix and also potassium supplementation Hold losartan for now I suspect hyperkalemia which is mild at 5.6 is probably related to potassium supplementation on admission Monitor K for now Monitor renal function electrolytes Avoid nephrotoxic agents including NSAIDs #COPD #Tobacco use disorder Continue Breo Ellipta Patient is not currently in COPD exacerbation Smoking cessation counseling provided Patient declined nicotine replacement patch #Type 2 diabetes mellitus #Obesity with BMI of 36.6 A1c 6.30 April 2024 Check A1c Lifestyle counseling regarding diet, exercise and weight loss provided Pharmacy consulted for glycemic management CODE STATUS: DNR/DNI DVT prophylaxis: Patient on warfarin Care plan discussed with patient, nursing staff Admission and Anticipated Discharge Date Admission Date: July 20, 2024 Subjective Patient seen and examined H&P reviewed Labs and radiology reviewed Patient states she has been experiencing chest pain and shortness of breath for 4 days. Chest pain has improved but still present She is also complaining of back pain Patient states she had been experiencing nausea and vomiting for the past 3 days and last time she vomited was yesterday. No nausea or vomiting today. No diarrhea today. Patient states she actually feels constipated She denies any fever or chills Patient states she has chronic left-sided weakness but the weakness she is experiencing right now on the left side is worse than her baseline. It has improved since last night. Social history: Patient states she lives with her . She has a cane, walker and a motorized chair at home. She denies alcohol use. She smokes half pack of cigarettes a day Review of Systems Review of Systems: As per HPI Physical Exam Physical Exam: General: No acute distress Psych: Awake and alert HEENT: Anicteric sclera, moist oral mucosa CVS: Regular rate and rhythm, mechanical click noted Lungs: Bilateral air entry with decreased breath sounds at bases, mild expiratory wheezing noted Abdomen: Soft, nontender, no rebound, no guarding Ext: No lower extremity edema, no calf tenderness Neuro: Strength is 4 out of 5 in left upper extremity and 3 out of 5 in left lower extremity, she is able to move all her 4 extremities : Thompson catheter in place Results & Data Results & Data Vital Signs (Past 12 Hours) Vital Signs Temp Pulse Pulse Resp BP Pulse Ox O2 Del Method 07/21/24 09:15 67 18 128/84 98 Nasal Cannula 07/21/24 07:30 36.7 C 64 20 119/80 100 Room Air 07/21/24 03:18 77 26 H 99 07/21/24 02:38 36.6 C 80 18 134/84 96 Room Air 07/20/24 22:58 77 35 H 99 07/20/24 22:50 121 H 07/20/24 22:22 Nasal Cannula O2 Flow Rate FiO2 07/21/24 09:15 2 07/21/24 07:30 07/21/24 03:18 2 07/21/24 02:38 07/20/24 22:58 2 07/20/24 22:50 07/20/24 22:22 2 Laboratory Results Laboratory Results - last 24 hr 07/20/24 07/20/24 07/20/24 15:48 16:07 17:11 WBC Cancelled 6.04 RBC Cancelled 3.60 L Hgb Cancelled 9.8 L POC Hgb 9.9 L Hct Cancelled 32.1 L POC Hct 29 L MCV Cancelled 89.2 MCH Cancelled 27.2 MCHC Cancelled 30.5 L RDW Std Deviation Cancelled 54.2 H RDW Coeff of Majo Cancelled 16.8 H Plt Count Cancelled 273 MPV Cancelled 10.4 Immature Gran % (Auto) Cancelled 0.3 Neut % (Auto) Cancelled 77.1 Lymph % (Auto) Cancelled 18.4 Mifflin % (Auto) Cancelled 3.8 Eos % (Auto) Cancelled 0.2 Baso % (Auto) Cancelled 0.2 Neut # (Auto) Cancelled 4.66 Lymph # (Auto) Cancelled 1.11 L M[place]fl[place] # (Auto) Cancelled 0.23 Eos # (Auto) Cancelled 0.01 Baso # (Auto) Cancelled 0.01 Immature Gran # (Auto) Cancelled 0.02 Absolute Nucleated RBC Cancelled 0.04 Nucleated RBC % (auto) Cancelled 0.7 Neutrophils % (Manual) Cancelled Band Neutrophils % Cancelled Lymphocytes % (Manual) Cancelled Prolymphocyte % Cancelled Reactive Lymphs % (Man) Cancelled Monocytes % (Manual) Cancelled Eosinophils % (Manual) Cancelled Basophils % (Manual) Cancelled Metamyelocytes % (Man) Cancelled Myelocytes % (Man) Cancelled Promyelocytes % (Man) Cancelled Blast Cells % (Manual) Cancelled Plasma Cell % (Manual) Cancelled Other Cells % Cancelled Nucleated RBC % Cancelled Neutrophils # (Manual) Cancelled Band Neutrophils # Cancelled Total Absolute Neuts Cancelled Lymphocytes # (Manual) Cancelled Prolymphocyte # Cancelled Reactive Lymphs # Cancelled Total Abs Lymphocytes Cancelled Monocytes # (Manual) Cancelled Eosinophils # (Manual) Cancelled Basophils # (Manual) Cancelled Metamyelocytes # (Man) Cancelled Myelocytes # (Manual) Cancelled Promyelocytes # (Man) Cancelled Blast Cells # (Man) Cancelled Plasma Cell # (Manual) Cancelled Other Cells # Cancelled Nucleated RBCs # (Man) Cancelled Hypersegmented Neuts Cancelled Hyposegmented Neuts Cancelled Hypogranular Neuts Cancelled Large Granular Lymphs Cancelled # Lrg Granular Lymphs Cancelled Hairy Cells Cancelled Smudge Cells Cancelled Toxic Granulation Cancelled Toxic Vacuolation Cancelled Dohle Bodies Cancelled Best Rods Cancelled Platelet Estimate Cancelled Hypogranular Platelets Cancelled Giant Platelets Cancelled Platelet Satelliting Cancelled RBC Morphology Cancelled Polychromasia Cancelled Hypochromasia Cancelled Poikilocytosis Cancelled Basophilic Stippling Cancelled Anisocytosis Cancelled Microcytosis Cancelled Macrocytosis Cancelled Spherocytes Cancelled Pappenheimer Bodies Cancelled Sickle Cells Cancelled Target Cells Cancelled Tear Drop Cells Cancelled Ovalocytes Cancelled Stomatocytes Cancelled Deluna-Cor[place] Bodies Cancelled Echinocytes Cancelled Acanthocytes (Spur) Cancelled Rouleaux Cancelled RBC Agglutinates Cancelled Schistocytes Cancelled Sezary Cell Cancelled PT Cancelled 22.8 H INR Cancelled 2.3 H APTT Cancelled 31 PTT Ratio Cancelled 1.2 POC pH POC pCO2 POC pO2 POC HCO3 POC Base Excess POC ABG O2 Sat VBG pH 7.31 L VBG pCO2 28 L VBG pO2 41 VBG HCO3 14 VBG O2 Saturation 73.1 VBG Base Excess -10.6 POC Sodium 141 Sodium Cancelled 139 POC Potassium 3.9 Potassium Cancelled 3.9 POC Chloride 106 Chloride Cancelled 106 Carbon Dioxide Cancelled 23 POC Total CO2 21 L Anion Gap Cancelled 10 POC Anion Gap 18.0 POC BUN 11 BUN Cancelled 12 Creatinine Cancelled 0.91 POC Creatinine 0.8 Est Cr Clr Drug Dosing Cancelled 81.9 Est GFR ( Amer) Cancelled 80.0 Est GFR (Non-Af Amer) Cancelled 69.1 BUN/Creatinine Ratio Cancelled 13.2 Glucose Cancelled 177 H POC Glucose POC Glucose (other) 176 H Calcium Cancelled 9.0 POC Ioniz Calcium Wilfredo 1.14 Magnesium Total Bilirubin Cancelled 0.9 AST Cancelled 58 H ALT Cancelled 80 H Alkaline Phosphatase Cancelled 255 H Troponin I High Sens Cancelled 29.9 H B-Natriuretic Peptide Cancelled 1069 H Total Protein Cancelled 7.0 Albumin Cancelled 3.5 Globulin Cancelled 3.5 Albumin/Globulin Ratio Cancelled 1.0 Urine Color Urine Appearance Urine pH Ur Specific Burns Urine Protein Urine Glucose (UA) Urine Ketones Urine Blood Urine Nitrite Urine Bilirubin Urine Urobilinogen Ur Leukocyte Esterase Urine WBC (Auto) Urine RBC (Auto) U Hyaline Cast (Auto) U Epithel Cells (Auto) Urine Bacteria (Auto) Hyaline Casts Acetaminophen Adenovirus (PCR) B. pertussis DNA (PCR) B.parapertussis DNA PCR C. pneumoniae DNA (PCR) Coronavirus OC43 (PCR) Coronavirus HKU1 (PCR) Coronavirus 229E (PCR) SARS-CoV-2 (PCR) Coronavirus NL63 (PCR) Hepatitis A IgM Ab Hep Bs Antigen Hep B Core IgM Ab Hepatitis C Antibody Human Metapneumovir PCR Influenza Type A (PCR) Influenza Type B (PCR) M. pneumoniae (PCR) Parainfluenza 1 (PCR) Parainfluenza 2 (PCR) Parainfluenza 3 (PCR) Parainfluenza 4 (PCR) RSV (PCR) Entero/Rhino (PCR) Blood Parasites ID Cancelled 07/20/24 07/20/24 07/20/24 17:14 18:30 19:20 WBC RBC Hgb POC Hgb 11.2 L Hct POC Hct 33 L MCV MCH MCHC RDW Std Deviation RDW Coeff of Majo Plt Count MPV Immature Gran % (Auto) Neut % (Auto) Lymph % (Auto) [place]iffl[place] % (Auto) Eos % (Auto) Baso % (Auto) Neut # (Auto) Lymph # (Auto) [place]fl[place] # (Auto) Eos # (Auto) Baso # (Auto) Immature Gran # (Auto) Absolute Nucleated RBC Nucleated RBC % (auto) Neutrophils % (Manual) Band Neutrophils % Lymphocytes % (Manual) Prolymphocyte % Reactive Lymphs % (Man) Monocytes % (Manual) Eosinophils % (Manual) Basophils % (Manual) Metamyelocytes % (Man) Myelocytes % (Man) Promyelocytes % (Man) Blast Cells % (Manual) Plasma Cell % (Manual) Other Cells % Nucleated RBC % Neutrophils # (Manual) Band Neutrophils # Total Absolute Neuts Lymphocytes # (Manual) Prolymphocyte # Reactive Lymphs # Total Abs Lymphocytes Monocytes # (Manual) Eosinophils # (Manual) Basophils # (Manual) Metamyelocytes # (Man) Myelocytes # (Manual) Promyelocytes # (Man) Blast Cells # (Man) Plasma Cell # (Manual) Other Cells # Nucleated RBCs # (Man) Hypersegmented Neuts Hyposegmented Neuts Hypogranular Neuts Large Granular Lymphs # Lrg Granular Lymphs Hairy Cells Smudge Cells Toxic Granulation Toxic Vacuolation Dohle Bodies Best Rods Platelet Estimate Hypogranular Platelets Giant Platelets Platelet Satelliting RBC Morphology Polychromasia Hypochromasia Poikilocytosis Basophilic Stippling Anisocytosis Microcytosis Macrocytosis Spherocytes Pappenheimer Bodies Sickle Cells Target Cells Tear Drop Cells Ovalocytes Stomatocytes Deluna-Corona Bodies Echinocytes Acanthocytes (Spur) Rouleaux RBC Agglutinates Schistocytes Sezary Cell PT INR APTT PTT Ratio POC pH 7.35 POC pCO2 35 POC pO2 40 L POC HCO3 19 POC Base Excess -6.0 POC ABG O2 Sat 72.0 L VBG pH VBG pCO2 VBG pO2 VBG HCO3 VBG O2 Saturation VBG Base Excess POC Sodium 131 L Sodium POC Potassium 3.2 L Potassium POC Chloride Chloride Carbon Dioxide POC Total CO2 20 L Anion Gap POC Anion Gap POC BUN BUN Creatinine POC Creatinine Est Cr Clr Drug Dosing Est GFR ( Amer) Est GFR (Non-Af Amer) BUN/Creatinine Ratio Glucose POC Glucose POC Glucose (other) Calcium POC Ioniz Calcium Wilfredo Magnesium Total Bilirubin AST ALT Alkaline Phosphatase Troponin I High Sens B-Natriuretic Peptide Total Protein Albumin Globulin Albumin/Globulin Ratio Urine Color Urine Appearance Urine pH Ur Specific Burns Urine Protein Urine Glucose (UA) Urine Ketones Urine Blood Urine Nitrite Urine Bilirubin Urine Urobilinogen Ur Leukocyte Esterase Urine WBC (Auto) Urine RBC (Auto) U Hyaline Cast (Auto) U Epithel Cells (Auto) Urine Bacteria (Auto) Hyaline Casts Acetaminophen Adenovirus (PCR) Not Detected B. pertussis DNA (PCR) Not Detected B.parapertussis DNA PCR Not Detected C. pneumoniae DNA (PCR) Not Detected Coronavirus OC43 (PCR) Not Detected Coronavirus HKU1 (PCR) Not Detected Coronavirus 229E (PCR) Not Detected SARS-CoV-2 (PCR) Not Detected Coronavirus NL63 (PCR) Not Detected Hepatitis A IgM Ab Pending Hep Bs Antigen Hep B Core IgM Ab Pending Hepatitis C Antibody Human Metapneumovir PCR Not Detected Influenza Type A (PCR) Not Detected Influenza Type B (PCR) Not Detected M. pneumoniae (PCR) Not Detected Parainfluenza 1 (PCR) Not Detected Parainfluenza 2 (PCR) Not Detected Parainfluenza 3 (PCR) Not Detected Parainfluenza 4 (PCR) Not Detected RSV (PCR) Not Detected Entero/Rhino (PCR) Not Detected Blood Parasites ID 07/20/24 07/20/24 07/20/24 19:58 19:59 21:40 WBC RBC Hgb POC Hgb Hct POC Hct MCV MCH MCHC RDW Std Deviation RDW Coeff of Majo Plt Count MPV Immature Gran % (Auto) Neut % (Auto) Lymph % (Auto) [place]fl[place] % (Auto) Eos % (Auto) Baso % (Auto) Neut # (Auto) Lymph # (Auto) [place]iffl[place] # (Auto) Eos # (Auto) Baso # (Auto) Immature Gran # (Auto) Absolute Nucleated RBC Nucleated RBC % (auto) Neutrophils % (Manual) Band Neutrophils % Lymphocytes % (Manual) Prolymphocyte % Reactive Lymphs % (Man) Monocytes % (Manual) Eosinophils % (Manual) Basophils % (Manual) Metamyelocytes % (Man) Myelocytes % (Man) Promyelocytes % (Man) Blast Cells % (Manual) Plasma Cell % (Manual) Other Cells % Nucleated RBC % Neutrophils # (Manual) Band Neutrophils # Total Absolute Neuts Lymphocytes # (Manual) Prolymphocyte # Reactive Lymphs # Total Abs Lymphocytes Monocytes # (Manual) Eosinophils # (Manual) Basophils # (Manual) Metamyelocytes # (Man) Myelocytes # (Manual) Promyelocytes # (Man) Blast Cells # (Man) Plasma Cell # (Manual) Other Cells # Nucleated RBCs # (Man) Hypersegmented Neuts Hyposegmented Neuts Hypogranular Neuts Large Granular Lymphs # Lrg Granular Lymphs Hairy Cells Smudge Cells Toxic Granulation Toxic Vacuolation Dohle Bodies Best Rods Platelet Estimate Hypogranular Platelets Giant Platelets Platelet Satelliting RBC Morphology Polychromasia Hypochromasia Poikilocytosis Basophilic Stippling Anisocytosis Microcytosis Macrocytosis Spherocytes Pappenheimer Bodies Sickle Cells Target Cells Tear Drop Cells Ovalocytes Stomatocytes Deluna-Corona Bodies Echinocytes Acanthocytes (Spur) Rouleaux RBC Agglutinates Schistocytes Sezary Cell PT INR APTT PTT Ratio POC pH POC pCO2 POC pO2 POC HCO3 POC Base Excess POC ABG O2 Sat VBG pH VBG pCO2 VBG pO2 VBG HCO3 VBG O2 Saturation VBG Base Excess POC Sodium Sodium POC Potassium Potassium POC Chloride Chloride Carbon Dioxide POC Total CO2 Anion Gap POC Anion Gap POC BUN BUN Creatinine POC Creatinine Est Cr Clr Drug Dosing Est GFR ( Amer) Est GFR (Non-Af Amer) BUN/Creatinine Ratio Glucose POC Glucose 528 H* POC Glucose (other) Calcium POC Ioniz Calcium Wilfredo Magnesium 1.9 Total Bilirubin AST ALT Alkaline Phosphatase Troponin I High Sens 23.8 H B-Natriuretic Peptide Total Protein Albumin Globulin Albumin/Globulin Ratio Urine Color Urine Appearance Urine pH Ur Specific Burns Urine Protein Urine Glucose (UA) Urine Ketones Urine Blood Urine Nitrite Urine Bilirubin Urine Urobilinogen Ur Leukocyte Esterase Urine WBC (Auto) Urine RBC (Auto) U Hyaline Cast (Auto) U Epithel Cells (Auto) Urine Bacteria (Auto) Hyaline Casts Acetaminophen < 3 L Adenovirus (PCR) B. pertussis DNA (PCR) B.parapertussis DNA PCR C. pneumoniae DNA (PCR) Coronavirus OC43 (PCR) Coronavirus HKU1 (PCR) Coronavirus 229E (PCR) SARS-CoV-2 (PCR) Coronavirus NL63 (PCR) Hepatitis A IgM Ab Hep Bs Antigen Hep B Core IgM Ab Hepatitis C Antibody Human Metapneumovir PCR Influenza Type A (PCR) Influenza Type B (PCR) M. pneumoniae (PCR) Parainfluenza 1 (PCR) Parainfluenza 2 (PCR) Parainfluenza 3 (PCR) Parainfluenza 4 (PCR) RSV (PCR) Entero/Rhino (PCR) Blood Parasites ID 07/20/24 07/20/24 07/20/24 21:42 22:00 Unknown WBC RBC Hgb POC Hgb Hct POC Hct MCV MCH MCHC RDW Std Deviation RDW Coeff of Majo Plt Count MPV Immature Gran % (Auto) Neut % (Auto) Lymph % (Auto) [place]fl[place] % (Auto) Eos % (Auto) Baso % (Auto) Neut # (Auto) Lymph # (Auto) [place]fl[place] # (Auto) Eos # (Auto) Baso # (Auto) Immature Gran # (Auto) Absolute Nucleated RBC Nucleated RBC % (auto) Neutrophils % (Manual) Band Neutrophils % Lymphocytes % (Manual) Prolymphocyte % Reactive Lymphs % (Man) Monocytes % (Manual) Eosinophils % (Manual) Basophils % (Manual) Metamyelocytes % (Man) Myelocytes % (Man) Promyelocytes % (Man) Blast Cells % (Manual) Plasma Cell % (Manual) Other Cells % Nucleated RBC % Neutrophils # (Manual) Band Neutrophils # Total Absolute Neuts Lymphocytes # (Manual) Prolymphocyte # Reactive Lymphs # Total Abs Lymphocytes Monocytes # (Manual) Eosinophils # (Manual) Basophils # (Manual) Metamyelocytes # (Man) Myelocytes # (Manual) Promyelocytes # (Man) Blast Cells # (Man) Plasma Cell # (Manual) Other Cells # Nucleated RBCs # (Man) Hypersegmented Neuts Hyposegmented Neuts Hypogranular Neuts Large Granular Lymphs # Lrg Granular Lymphs Hairy Cells Smudge Cells Toxic Granulation Toxic Vacuolation Dohle Bodies Best Rods Platelet Estimate Hypogranular Platelets Giant Platelets Platelet Satelliting RBC Morphology Polychromasia Hypochromasia Poikilocytosis Basophilic Stippling Anisocytosis Microcytosis Macrocytosis Spherocytes Pappenheimer Bodies Sickle Cells Target Cells Tear Drop Cells Ovalocytes Stomatocytes Deluna-Corona Bodies Echinocytes Acanthocytes (Spur) Rouleaux RBC Agglutinates Schistocytes Sezary Cell PT INR APTT PTT Ratio POC pH POC pCO2 POC pO2 POC HCO3 POC Base Excess POC ABG O2 Sat VBG pH VBG pCO2 VBG pO2 VBG HCO3 VBG O2 Saturation VBG Base Excess POC Sodium Sodium POC Potassium Potassium POC Chloride Chloride Carbon Dioxide POC Total CO2 Anion Gap POC Anion Gap POC BUN BUN Creatinine POC Creatinine Est Cr Clr Drug Dosing Est GFR ( Amer) Est GFR (Non-Af Amer) BUN/Creatinine Ratio Glucose POC Glucose 465 H* POC Glucose (other) Calcium POC Ioniz Calcium Wilfredo Magnesium Total Bilirubin AST ALT Alkaline Phosphatase Troponin I High Sens B-Natriuretic Peptide Total Protein Albumin Globulin Albumin/Globulin Ratio Urine Color Dark Yellow Urine Appearance Turbid A Urine pH 6.0 Ur Specific Burns 1.026 Urine Protein 1+ H Urine Glucose (UA) Negative Urine Ketones Trace H Urine Blood 1+ H Urine Nitrite Negative Urine Bilirubin 1+ H Urine Urobilinogen Positive H Ur Leukocyte Esterase 3+ H Urine WBC (Auto) >50 H Urine RBC (Auto) 0-2 U Hyaline Cast (Auto) 6-10 H U Epithel Cells (Auto) >20 H Urine Bacteria (Auto) 2+ H Hyaline Casts Present A Acetaminophen Adenovirus (PCR) B. pertussis DNA (PCR) B.parapertussis DNA PCR C. pneumoniae DNA (PCR) Coronavirus OC43 (PCR) Coronavirus HKU1 (PCR) Coronavirus 229E (PCR) SARS-CoV-2 (PCR) Coronavirus NL63 (PCR) Hepatitis A IgM Ab Hep Bs Antigen Pending Hep B Core IgM Ab Hepatitis C Antibody Pending Human Metapneumovir PCR Influenza Type A (PCR) Influenza Type B (PCR) M. pneumoniae (PCR) Parainfluenza 1 (PCR) Parainfluenza 2 (PCR) Parainfluenza 3 (PCR) Parainfluenza 4 (PCR) RSV (PCR) Entero/Rhino (PCR) Blood Parasites ID 07/21/24 07/21/24 07/21/24 00:35 06:48 07:29 WBC 7.89 RBC 3.85 L Hgb 10.4 L POC Hgb Hct 34.9 L POC Hct MCV 90.6 MCH 27.0 MCHC 29.8 L RDW Std Deviation 56.7 H RDW Coeff of Majo 17.2 H Plt Count 271 MPV 10.4 Immature Gran % (Auto) 0.5 Neut % (Auto) 79.9 Lymph % (Auto) 15.8 Mifflin % (Auto) 3.8 Eos % (Auto) 0.0 Baso % (Auto) 0.0 Neut # (Auto) 6.30 Lymph # (Auto) 1.25 Mifflin # (Auto) 0.30 Eos # (Auto) 0.00 Baso # (Auto) 0.00 Immature Gran # (Auto) 0.04 Absolute Nucleated RBC 0.03 Nucleated RBC % (auto) 0.4 Neutrophils % (Manual) Band Neutrophils % Lymphocytes % (Manual) Prolymphocyte % Reactive Lymphs % (Man) Monocytes % (Manual) Eosinophils % (Manual) Basophils % (Manual) Metamyelocytes % (Man) Myelocytes % (Man) Promyelocytes % (Man) Blast Cells % (Manual) Plasma Cell % (Manual) Other Cells % Nucleated RBC % Neutrophils # (Manual) Band Neutrophils # Total Absolute Neuts Lymphocytes # (Manual) Prolymphocyte # Reactive Lymphs # Total Abs Lymphocytes Monocytes # (Manual) Eosinophils # (Manual) Basophils # (Manual) Metamyelocytes # (Man) Myelocytes # (Manual) Promyelocytes # (Man) Blast Cells # (Man) Plasma Cell # (Manual) Other Cells # Nucleated RBCs # (Man) Hypersegmented Neuts Hyposegmented Neuts Hypogranular Neuts Large Granular Lymphs # Lrg Granular Lymphs Hairy Cells Smudge Cells Toxic Granulation Toxic Vacuolation Dohle Bodies Best Rods Platelet Estimate Hypogranular Platelets Giant Platelets Platelet Satelliting RBC Morphology Polychromasia Hypochromasia Poikilocytosis Basophilic Stippling Anisocytosis Microcytosis Macrocytosis Spherocytes Pappenheimer Bodies Sickle Cells Target Cells Tear Drop Cells Ovalocytes Stomatocytes Deluna-Corona Bodies Echinocytes Acanthocytes (Spur) Rouleaux RBC Agglutinates Schistocytes Sezary Cell PT 24.7 H INR 2.5 H APTT PTT Ratio POC pH POC pCO2 POC pO2 POC HCO3 POC Base Excess POC ABG O2 Sat VBG pH VBG pCO2 VBG pO2 VBG HCO3 VBG O2 Saturation VBG Base Excess POC Sodium Sodium 136 POC Potassium Potassium 4.8 D 5.6 H POC Chloride Chloride 103 Carbon Dioxide 23 POC Total CO2 Anion Gap 10 POC Anion Gap POC BUN BUN 24 H Creatinine 1.47 H D POC Creatinine Est Cr Clr Drug Dosing 49.9 Est GFR ( Amer) 44.8 Est GFR (Non-Af Amer) 38.7 BUN/Creatinine Ratio 16.3 Glucose 224 H POC Glucose 268 H POC Glucose (other) Calcium 8.9 POC Ioniz Calcium Wilfredo Magnesium 2.2 Total Bilirubin 0.5 AST 70 H ALT 88 H Alkaline Phosphatase 307 H Troponin I High Sens B-Natriuretic Peptide Total Protein 7.4 Albumin 3.9 Globulin 3.5 Albumin/Globulin Ratio 1.1 Urine Color Urine Appearance Urine pH Ur Specific Burns Urine Protein Urine Glucose (UA) Urine Ketones Urine Blood Urine Nitrite Urine Bilirubin Urine Urobilinogen Ur Leukocyte Esterase Urine WBC (Auto) Urine RBC (Auto) U Hyaline Cast (Auto) U Epithel Cells (Auto) Urine Bacteria (Auto) Hyaline Casts Acetaminophen Adenovirus (PCR) B. pertussis DNA (PCR) B.parapertussis DNA PCR C. pneumoniae DNA (PCR) Coronavirus OC43 (PCR) Coronavirus HKU1 (PCR) Coronavirus 229E (PCR) SARS-CoV-2 (PCR) Coronavirus NL63 (PCR) Hepatitis A IgM Ab Hep Bs Antigen Hep B Core IgM Ab Hepatitis C Antibody Human Metapneumovir PCR Influenza Type A (PCR) Influenza Type B (PCR) M. pneumoniae (PCR) Parainfluenza 1 (PCR) Parainfluenza 2 (PCR) Parainfluenza 3 (PCR) Parainfluenza 4 (PCR) RSV (PCR) Entero/Rhino (PCR) Blood Parasites ID Diagnostic Findings Chest X-Ray 07/20/24 15:35 SINGLE VIEW CHEST CLINICAL HISTORY: Dyspnea FINDINGS: An AP, portable, upright chest radiograph is compared to study dated 05/25/2024. The patient is status post midline sternotomy and cardiac valve surgeries. The heart is enlarged. There is mild pulmonary vascular congestion. Atelectasis is noted at the lung bases. The lungs and pleural spaces are otherwise clear. No pneumothorax is seen. The skeletal structures are osteopenic. The bony thorax is grossly intact. Calcific tendinopathy is seen in the right shoulder. IMPRESSION: Cardiomegaly with mild pulmonary vascular congestion. ACT 112: Negative or not required by law. Electronically signed by: Marin De La Rosa M.D. 07/20/2024 4:[address] 07/20/24 23:19 Exam(s): CT HEAD Without Contrast EXAM: CT Head Without Intravenous Contrast CLINICAL HISTORY: Reason for exam: Acute Left Side Weakness, Stroke Alert. TECHNIQUE: Axial computed tomography images of the head/brain without intravenous contrast. CTDI is 53.89 mGy and DLP is 764.9 mGy-cm. Automated exposure control was utilized for the study. A dose lowering technique was utilized adhering to the principles of ALARA. COMPARISON: Prior head CT from May 28, 2024. FINDINGS: Brain: Unremarkable. No hemorrhage. No significant white matter disease. No edema. Ventricles: Unremarkable. No ventriculomegaly. Bones/joints: Status post ORIF of the lateral right orbit. No acute fracture. Soft tissues: Unremarkable. Sinuses: Unremarkable as visualized. No acute sinusitis. Mastoid air cells: Unremarkable as visualized. No mastoid effusion. IMPRESSION: No evidence of acute intracranial pathology. Electronically signed by: Marysol Mauro MD 07/21/24 02:[address] 07/20/24 23:34 Exam(s): CT C SPINE EXAM: CT Cervical Spine Without Intravenous Contrast CLINICAL HISTORY: Reason for exam: Severe acute pain with weakness. TECHNIQUE: Axial computed tomography images of the cervical spine without intravenous contrast. CTDI is 39.4 mGy and DLP is 1079.83 mGy-cm. Automated exposure control was utilized for the study. A dose lowering technique was utilized adhering to the principles of ALARA. COMPARISON: Prior CT scan of the cervical spine from May 28, 2024. FINDINGS: The study is limited secondary to motion artifact. Vertebrae: Unremarkable. No acute fracture. 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 Discs/spinal canal/neural foramina: No acute findings. Critical spinal canal stenosis at C4-5 and C5-6. Soft tissues: Unremarkable. IMPRESSION: No evidence of acute cervical spine pathology. Critical spinal canal stenosis at C4-5 and C5-6. Recommend MRI of the cervical spine to evaluate for myelopathy. Electronically signed by: Marysol Mauro MD 07/21/24 02:[address] 07/20/24 23:34 Exam(s): CT L SPINE EXAM: CT Lumbar Spine Without Intravenous Contrast CLINICAL HISTORY: Reason for exam: Acute sever pain w/ weakness. TECHNIQUE: Axial computed tomography images of the lumbar spine without intravenous contrast. CTDI is 39.4 mGy and DLP is 1079.83 mGy-cm. Automated exposure control was utilized for the study. A dose lowering technique was utilized adhering to the principles of ALARA. COMPARISON: Prior CT scan of lumbar spine from February 16, 2024. FINDINGS: Vertebrae: Status post posterior decompression of L3, L4 and L5 with interbody and posterior fusion of L3-S1 with transpedicular screws and connecting rods in place. No acute fracture. Discs/spinal canal/neural foramina: No acute findings. No spinal canal stenosis. Soft tissues: There is a fluid collection in the operative bed extending to the subcutaneous fat. IMPRESSION: No evidence of acute lumbar spine pathology. Status post posterior decompression, interbody and posterior fusion of L3- S1. There is a epidural fluid collection extending to the subcutaneous fat. If there is continued clinical concern, an MRI may be of benefit for further evaluation. 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
[2024-07-21] MEDS ORDERED: PHARMACY GLYCEMIC MGMT CONSULT PRN (09:50)
[2024-07-21] MEDS: LORazepam 2 MG/1 ML VIAL IV PRN (10:55)
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
[2024-07-21] MEDS: GADOBUTROL 65ML VIAL IV ONE (12:53)
--- NOTE | 2024-07-21 13:45 | Magnetic Resonance Report ---
MRI OF THE BRAIN COMBO CLINICAL HISTORY: Strokelike symptoms. Left-sided weakness. COMPARISON STUDY: CT of the brain dated 07/20/2024. TECHNIQUE: MRI of the brain was performed utilizing various T1 and T2-weighted sequences in the axial , sagittal, and coronal planes. Contrast-enhanced sequences were acquired following the administratio n of 10 cc of Gadavist. The examination is degraded by motion artifact. FINDINGS: Brain parenchyma: There is a punctate focus of restricted diffusion suggested in the right cerebellar hemisphere on image #7, which could not be corroborated on the ADC map. This could represent a punct ate acute to subacute lacunar infarct versus T2 shine through. No additional foci versus diffusion ar e seen to suggest acute ischemia. There is no hemorrhage or mass effect. There is minimal microangiop athic change. Additional punctate chronic lacunar infarcts are suggested in the right cerebellar maki sphere. There is no evidence of enhancing lesion on the postcontrast sequences. Jose-white matter dif ferentiation is preserved. No extra-axial fluid collection is seen. The cerebellar tonsils are normal in configuration. Ventricles, sulci, and cisterns: Normal in configuration. Pituitary and sella: Partially empty sella is incidentally noted. Intracranial vasculature: Normal flow voids are maintained at the skull base. Orbits: The bony orbits are grossly intact. Orbital contents are normal in appearance. Sinuses and mastoids: There is trace right mastoid effusion. The left mastoid air cells and paranasal sinuses are clear. Calvarium: Unremarkable. Soft tissues: There is a 1.5 cm lipoma of the right frontal scalp. Cervical cord: Partially visualized cervical spinal cord is normal in morphology and signal intensity . IMPRESSION: 1. There is a punctate focus of apparent restricted diffusion in the right cerebellar hemisphere whic h could not be corroborated on the ADC maps. This could represent a tiny acute to subacute lacunar in farct versus a focus of T2 shine through. Clinical correlation will be required. 2. No additional findings are suspicious for acute ischemia. 3. There is no hemorrhage or mass effect. ACT 112: Negative or not required by law. Electronically signed by: Marin De La Rosa M.D. 07/21/2024 1:43 PM
[2024-07-21] MEDS: Heparin IV Adult Wt-Based Standard *NO* INITIAL Bolus Protocol IV STA (14:14)
[2024-07-21] MEDS: AMIODARONE 200 MG TAB PO ONE (14:17)
[2024-07-21] MEDS: LANTUS PER UNIT CHARGE SC ONE (14:28)
--- NOTE | 2024-07-21 14:31 | Magnetic Resonance Report ---
MRI OF THE CERVICAL SPINE COMBO CLINICAL HISTORY: Cervical stenosis. COMPARISON STUDY: CT of the cervical spine dated 07/20/2024. MRI of the cervical spine dated 03/03/2018 . TECHNIQUE: MRI of the cervical spine was performed utilizing various T1 and T2-weighted sequences in the axial and sagittal planes. Contrast-enhanced sequences are acquired following the IV administrati on of 10 cc of Gadavist. The examination is significantly degraded by motion artifact. FINDINGS: Cervical spine: Vertebral body height and alignment are maintained throughout the cervical spine. The re is straightening of the cervical lordosis with reversal centered at C5. Anterior osteophytes are s een throughout. The atlantodental articulation is maintained. The spinous processes appear intact. No destructive bony process is seen. Mild chronic degenerative endplate changes noted at C5-C6 and C6-C 7. Intervertebral discs: Disc desiccation and loss of height is seen throughout the cervical spine. Loss of height is moderate to severe at all levels between C3-C4 and C6-C7. Cervical cord: The cervical cord is normal in morphology and signal intensity. No abnormal postcontra st enhancement is identified. C2-C3: Unremarkable. C3-C4: A posterior disc osteophyte complex minimally effaces the ventral subarachnoid space. Uncovert ebral and facet arthropathy contribute to at least mild left neural foraminal stenosis. The right wallace ral foramen appears patent. C4-C5: A posterior disc osteophyte complex abuts the ventral cord. Lateral disc bulge is seen bilater ally, left greater than right. In conjunction with facet arthropathy, there is severe left and modera te to severe right neuroforaminal stenosis. There is likely impingement on the exiting bilateral C5 n erve roots. C5-C6: A posterior disc osteophyte complex effaces the ventral subarachnoid space. There is a left la teral disc bulge. In conjunction with facet arthropathy, there is moderate to severe left neural fora mi stenosis. There is only mild neural foraminal narrowing seen on the right. There may be impinge ment on the exiting left C6 nerve root. C6-C7: A posterior disc osteophyte complex minimally effaces the ventral subarachnoid space. Lateral disc bulge is seen bilaterally, left greater than right. In conjunction with facet arthropathy, there is severe left and moderate to severe right neural foraminal stenosis. There is probable impingement on the exiting left C7 nerve root. C7-T1: Unremarkable. Soft tissues: The prevertebral soft tissues are normal as imaged. There is nonspecific interspinous e vinnie at C2-C3, C6-C7, and C7-T1. This could potentially be seen in the setting of ligamentous injury. The thyroid gland is enlarged and heterogeneous. Brain parenchyma: The imaged brain parenchyma at the skull base is within normal limits. IMPRESSION: 1. There is no MRI evidence of acute fracture. 2. There is nonspecific interspinous edema at C2-C3, C6-C7, and C7-T1. This could potentially be seen in the setting of ligamentous injury. Clinical correlation will be essential. 3. Multilevel spondylosis as above. See discussion for detailed level by level analysis. 4. The cervical cord is normal in morphology and signal intensity with no abnormal postcontrast enhan cement identified. Dictated: 07/21/2024 1:47 PM Transcribed: 07/21/2024 2:25 PM Roseanne [id number] Electronically signed by: Marin De La Rosa M.D. 07/21/2024 2:30 PM
--- NOTE | 2024-07-21 14:36 | Pharmacy Report ---
Pharmacy Glycemic Short Note 2 - Date of Service July 21, 2024 - Glycemic Short BSG Results (Last 24 hours): 07/20/24 07/20/24 07/20/24 15:48 16:07 17:11 Glucose Cancelled 177 H POC Glucose POC Glucose (other) 176 H 07/20/24 07/20/24 07/21/24 21:40 21:42 06:48 Glucose 224 H POC Glucose 528 H* 465 H* POC Glucose (other) 07/21/24 07/21/24 07:29 13:31 Glucose POC Glucose 268 H 170 H POC Glucose (other) OUTPATIENT ANTIDIABETIC REGIMEN: * metformin 1000 mg PO BID * dulaglutide 4.5 mg SQ q7d (Fridays) * A1c = 6.9% ASSESSMENT: * Deb is a 58 yo T2DM admitted with increased shortness of breath over the past few days. Started on amiodarone infusion for A.flutter and now converted to oral. Also on heparin IV infusion. Good outpatient glycemic control - A1c 6.9%. * Persistent hyperglycemia despite initiation of short acting insulin. * Will tighten Novolog CF and CR. Add conservative dose of Lantus per patient NPO at midnight. * During past admission, patient required 25-30 units of Lantus per day while on high dose IV steroids. PLAN FOR INPATIENT GLYCEMIC CONTROL: * Hold outpatient oral diabetes medications * Basal insulin * Lantus 14 units SQ x 1 * Reassess 07/22 * Bolus insulin * NovoLog per scale ACHS or Q6hrs while NPO * Goal Range: Low 110 mg/dL - High 160 mg/dL * Correction Factor: 30 mg/dL/unit * Nutritional / Prandial insulin per carb ratio of 1 unit per 10 grams CHO consumed
[2024-07-21] MEDS: HEPARIN SODIUM/DEXTROSE 25,000 UNITS/500 ML BAG IV SCH (14:59)
[2024-07-21] MEDS: FUROSEMIDE 40 MG/4 ML VIAL IV ONE (14:59)
--- NOTE | 2024-07-21 16:26 | Magnetic Resonance Report ---
MRI OF THE LUMBAR SPINE COMBO CLINICAL HISTORY: Chronic low back pain. Recent fall. COMPARISON STUDY: CT scans of the lumbar spine dated 07/20/2024 and 02/16/2024. MRI of the lumbar spine dated 02/13/2020. TECHNIQUE: MRI of the lumbar spine was performed utilizing various T1 and T2-weighted sequences the a xial and sagittal planes. Contrast enhanced sequences were acquired following the administration of 1 0 cc of Gadavist. The examination is significantly compromised by motion artifact. The examination is also degraded by susceptibility artifact from extensive metallic spinal hardware. FINDINGS: Lumbar spine: There is a minimal chronic superior endplate compression deformity of L2. Vertebral bod y height is otherwise maintained throughout the lumbar spine. Alignment is preserved. Anterior and la teral marginal osteophytes are seen throughout. There is postsurgical change from laminectomy and pos terior fusion seen at L3-S1. Interpedicular screws are present at all levels. No destructive bony les ion is seen. A hemangioma is noted in the body of L1. Chronic degenerative endplate changes noted at several levels. No significant endplate edema is seen. Intervertebral discs: There has been discectomy at L3-L4, L4-L5, and L5-S1. Mild disc desiccation is seen at the remaining levels. Spinal cord and central canal: The visualized spinal cord is normal in morphology and signal intensit y. The conus medullaris terminates at the L1-L2 interspace. The nerve roots of the cauda equina are n ormal in morphology. No abnormal postcontrast enhancement is identified. No epidural fluid collection is seen. L1-L2: Mild facet arthropathy is of no consequence. The central canal and neural foramina are patent. L2-L3: There is broad-based posterior disc bulge which abuts the transiting nerve roots. No significa nt central canal stenosis is seen. Facet arthropathy is of no consequence. The neural foramina are pa tent. L3-L4: The central canal and neural foramina are grossly patent. L4-L5: The central canal and neural foramina are grossly patent. L5-S1: The central canal appears patent. The neural foramina are not well assessed. Sacrum: The visualized sacrum is normal in morphology and signal intensity. Soft tissues: Postsurgical changes seen posterior to the thecal sac at the operative levels. There is a complex fluid collection in the subcutaneous soft tissues of lower back extending from L3 to L5. T his contains layering internal debris and measures approximately 8.5 x 2.5 x 4.5 cm. This is deep to the incision site and likely represents a seroma. There is mild fatty atrophy of the paraspinous musc ulature. The retroperitoneal structures are grossly unremarkable but incompletely evaluated. Free flu id is seen in the pelvis. IMPRESSION: 1. The examination is degraded by motion artifact, as well as by susceptibility artifact from multile shaq spinal hardware. 2. No acute bony abnormality is seen. 3. Mild spondylotic and extensive postsurgical change as above. There is no significant central canal stenosis. 4. No epidural fluid collection or abnormal enhancement is seen. 5. There is a complex fluid collection within the subcutaneous soft tissues at the operative levels a s above. This contains layering debris and likely represents a seroma. The sterility of this fluid ca nnot be assessed by imaging and clinical correlation will be essential. This fluid collection has aiden ewhat decreased in size as compared to 02/16/2024. 6. There is free fluid in the cul-de-sac. Dictated: 07/21/2024 2:06 PM Transcribed: 07/21/2024 2:40 PM Roseanne [id number] Electronically signed by: Marin De La Rosa M.D. 07/21/2024 4:25 PM
[2024-07-21] MEDS: oxyCODONE HCL IR 5 MG TAB (IMMEDIATE RELEASE) PO PRN (16:40)
--- NOTE | 2024-07-21 16:41 | Electrocardiogram Report ---
Test Reason : Blood Pressure : */* mmHG Vent. Rate : 145 BPM Atrial Rate : 290 BPM P-R Int : * ms QRS Dur : 82 ms QT Int : 342 ms P-R-T Axes : 24 8 88 degrees QTcB Int : 531 ms Atrial flutter with 2:1 A-V conduction Nonspecific ST and T wave abnormality Abnormal ECG When compared with ECG of 28-May-2024 13:52, Atrial flutter has replaced Sinus rhythm Vent. rate has increased by [address] elevation now present in Inferior leads T wave inversion now evident in Anterior leads Confirmed by Ledy Tompkins (Sudarshan) on 07/21/2024 4:41:13 PM Referred By: REFERRED SELF Confirmed By: Ledy Tompkins
--- NOTE | 2024-07-21 16:43 | Electrocardiogram Report ---
Test Reason : Blood Pressure : */* mmHG Vent. Rate : 145 BPM Atrial Rate : * BPM P-R Int : * ms QRS Dur : 110 ms QT Int : 330 ms P-R-T Axes : * 34 86 degrees QTcB Int : 512 ms Atrial flutter with 2 to 1 block Moderate voltage criteria for LVH, may be normal variant ( Sokolow-Ponce , Héctor product ) Nonspecific T wave abnormality Abnormal ECG When compared with ECG of 20-Jul-2024 15:38, (unconfirmed) Sinus rhythm has replaced Atrial flutter ST no longer elevated in Inferior leads Confirmed by Ledy Tompkins (Sudarshan) on 07/21/2024 4:42:34 PM Referred By: REFERRED SELF Confirmed By: Ledy Tompkins
--- NOTE | 2024-07-21 16:45 | Electrocardiogram Report ---
Test Reason : Blood Pressure : */* mmHG Vent. Rate : 113 BPM Atrial Rate : 278 BPM P-R Int : * ms QRS Dur : 82 ms QT Int : 378 ms P-R-T Axes : * 14 18 degrees QTcB Int : 518 ms Atrial flutter with variable A-V block Moderate voltage criteria for LVH, may be normal variant ( Sokolow-Ponce , [place] product ) Nonspecific T wave abnormality Abnormal ECG When compared with ECG of 20-Jul-2024 16:12, (unconfirmed) Atrial flutter has replaced Sinus rhythm Nonspecific T wave abnormality now evident in Inferior leads Confirmed by Ledy Tompkins (1968) on 07/21/2024 4:45:09 PM Referred By: REFERRED SELF Confirmed By: Ledy Tompkins
--- NOTE | 2024-07-21 16:46 | Electrocardiogram Report ---
Test Reason : Blood Pressure : */* mmHG Vent. Rate : 114 BPM Atrial Rate : 256 BPM P-R Int : * ms QRS Dur : 84 ms QT Int : 382 ms P-R-T Axes : * 29 78 degrees QTcB Int : 526 ms Atrial flutter with variable A-V block Nonspecific T wave abnormality Prolonged QT Abnormal ECG When compared with ECG of 20-Jul-2024 18:41, (unconfirmed) ST elevation now present in Inferior leads Nonspecific T wave abnormality no longer evident in Inferior leads Confirmed by Ledy Tompkins (Sudarshan) on 07/21/2024 4:46:37 PM Referred By: REFERRED SELF Confirmed By: Ledy Tompkins
--- NOTE | 2024-07-21 17:01 | Electrocardiogram Report ---
Test Reason : Blood Pressure : */* mmHG Vent. Rate : 67 BPM Atrial Rate : 227 BPM P-R Int : * ms QRS Dur : 118 ms QT Int : 474 ms P-R-T Axes : * 17 72 degrees QTcB Int : 500 ms Accelerated Junctional rhythm Non-specific intra-ventricular conduction delay Prolonged QT Abnormal ECG When compared with ECG of 20-Jul-2024 20:38, (unconfirmed) Junctional rhythm has replaced Atrial flutter Vent. rate has decreased by [address] no longer elevated in Inferior leads Nonspecific T wave abnormality, improved in Lateral leads Confirmed by Ledy Tompkins (Sudarshan) on 07/21/2024 5:01:02 PM Referred By: REFERRED SELF Confirmed By: Ledy Tompkins
--- NOTE | 2024-07-21 17:22 | Ultrasound Report ---
ULTRASOUND OF THE CAROTID ARTERIES CLINICAL HISTORY: Strokelike symptoms. Left-sided weakness. COMPARISON STUDY: Carotid artery ultrasound dated 12/27/2015 TECHNIQUE: Real-time, grayscale, and color Doppler sonography of the carotid arteries is performed. I mages are reviewed in the transverse and longitudinal planes. FINDINGS: The carotid arteries are patent bilaterally and demonstrate antegrade flow. There is moderate atheros clerotic plaque seen the carotid bulbs bilaterally. Normal doppler arterial waveforms are seen throug hout. Velocity measurements are listed below. Common carotid peak systolic velocity (cm/sec): RIGHT: 72 LEFT: 74 ICA proximal peak systolic velocity (cm/sec): RIGHT: 50 LEFT: 64 ICA mid/distal peak systolic velocity (cm/sec): RIGHT: 67 LEFT: 43 ICA/CC peak systolic ratio: RIGHT: 0.9 LEFT: 0.9 Antegrade flow was shown in the vertebral arteries. The external carotid arteries are patent. IMPRESSION: 1. There is no sonographic evidence of hemodynamically significant stenosis in the right or left smiley tid arterial system. 2. Antegrade flow is shown in the vertebral arteries. ACT 112: Negative or not required by law. Electronically signed by: Marin De La Rosa M.D. 07/21/2024 5:20 PM
[2024-07-21] MEDS: POLYETHYLENE (MIRALAX) 17 GM PACK PO PRN (17:42)
--- NOTE | 2024-07-21 17:55 | Communication Note ---
Date of Service: July 21, 2024 I was called by patient's nurse that patient wants to discuss her CODE STATUS. Patient's Bill at bedside Patient is awake and alert and has decision-making capacity Patient now wants to reverse her DNR and wants to be full code Discussed patient's echo findings and EF, labs and radiology After extensive discussion patient still wants to be full code and wants to revoke her DNR CODE STATUS changed to full code Nursing staff aware
[2024-07-21] MEDS: AMIODARONE 200 MG TAB PO SCH (20:57)
[2024-07-21] MEDS: SENNA 8.6 MG TAB PO SCH (20:58)
[2024-07-21 21:32] LABS: ANTI-Xa, UFH(UnfractionatedHep 0.38 IU/ml (0.3-0.7)
[2024-07-22] MEDS: HYDROmorphone INJ 0.5 MG/0.5 ML SYR IV STA (05:41)
[2024-07-22 05:48] LABS: Basophils # (auto) 0.01 K/uL (0.00-0.20); Basophils % (auto) 0.1 %; Eosinophils # (auto) 0.02 K/uL (0.00-0.50); Eosinophils % (auto) 0.2 %; Hematocrit (blood only) 30.6 % (37.0-47.0); Hemoglobin 9.4 g/dl (12.0-16.0); Immature Granulocytes # (auto) 0.03 K/uL (0.01-0.20); Immature Granulocytes % (auto) 0.3 %; Lymphocytes # (auto) 3.17 K/uL (1.20-3.40); Lymphocytes % (auto) 28.3 %; Mean Corpuscular Hemoglobin 27.2 pg (25.0-34.0); Mean Corpuscular Hgb Conc 30.7 g/dL (32.0-36.0); Mean Corpuscular Volume 88.7 fL (80.0-100.0); Mean Platelet Volume 10.6 fL (9.4-12.4); Monocytes # (auto) 0.71 K/uL (0.11-0.59); Monocytes % (auto) 6.3 %; Neutrophils # (auto) 7.28 K/uL (1.40-6.50); Neutrophils % (auto) 64.8 %; Nucleated RBC # (auto) 0.21 K/uL (0.00-0.12); Nucleated RBC % (auto) 1.9 %; Platelet Count 223 K/uL (130-400); RDW Coefficient of Variation 17.1 % (11.5-14.5); RDW Standard Deviation 55.4 fL (36.4-46.3); Red Blood Count 3.45 M/uL (4.20-5.40); White Blood Count 11.22 K/ul (4.8-10.8)
[2024-07-22 06:05] LABS: Albumin Globulin Ratio 1.1 (0.9-2); Albumin Level 3.4 gm/dl (3.4-5.0); BUN Creatinine Ratio 19.8 (10-20); Bilirubin,Total 0.5 mg/dl (0.2-1.0); Calcium 8.6 mg/dl (8.6-10.3); Creatinine Clr Calc Pharmacy 42.5 ml/min; Est GFR (African American) 35.8 ml/min; Est GFR (Non-African American) 30.9 ml/min; Globulin 3.2 gm/dl (2.5-4.0); Magnesium 2.3 mg/dl (1.7-2.4); Potassium 5.2 mmol/L (3.5-5.1); Total Protein 6.6 gm/dl (6.0-8.3)
[2024-07-22 06:15] LABS: ANTI-Xa, UFH(UnfractionatedHep 0.59 IU/ml (0.3-0.7); INR 2.9 (0.9-1.1); Prothrombin Time 28.4 Seconds (9.0-12.0)
[2024-07-22 06:20] LABS: Thyroid Stimulating Hormone 0.018 uIu/ml (0.300-4.500)
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
[2024-07-22 08:33] LABS: Estimated Average Glucose 157 mg/dl; Hemoglobin A1C 7.1 % (4.5-5.6)
[2024-07-22] MEDS: KETAMINE HCL 10MG/ML SYR ONE (09:09)
[2024-07-22] MEDS: GLYCOPYRROLATE 0.2 MG/ML VIAL ONE (09:10)
[2024-07-22] MEDS: LIDOCAINE 2% 2 ML VIAL/AMP(20MG/ML) INFIL ONE (09:11)
[2024-07-22] MEDS: PROPOFOL IV EMULSION 10 MG/ML 20 ML VIAL IV ONE (09:16)
[2024-07-22] MEDS: BENZOCAINE/TETRACAIN/BUTAM 50 APPLN/5 GM CAN EXT ONE (09:16)
[2024-07-22] MEDS: ETOMIDATE 2 MG/ML 20 ML VIAL IV ONE (09:16)
[2024-07-22] MEDS: LANTUS PER UNIT CHARGE SC SCH (09:40)
--- NOTE | 2024-07-22 09:53 | Hospitalist Progress Note ---
Date of Service July 22, 2024 Assessment & Plan (1) Atrial flutter: (2) Acute systolic CHF (congestive heart failure): (3) Status post mitral valve replacement with metallic valve: (4) Elevated LFTs: (5) COPD (chronic obstructive pulmonary disease): (6) History of TIA (transient ischemic attack): (7) Type 2 diabetes mellitus with obesity: (8) Chronic anticoagulation: (9) Obstructive sleep apnea on CPAP: (10) History of tobacco abuse: Plan 58-year-old female with past medical history of CHF, coronary artery disease hypertension, chronic pain syndrome, TIA, type 2 diabetes mellitus, history of mitral valve replacement 2 years ago on anticoagulation with warfarin, tobacco use disorder, COPD who presents to [facility] ED via EMS on 07/20/2024 due to complaints of chest pain and shortness of breath for the past 4 days. Patient was found to be in atrial flutter and had a chest x-ray which showed cardiomegaly with pulmonary vascular congestion. ED spoke with cardiology and patient was started on amiodarone drip. #Atrial flutter #Acute systolic congestive heart failure, EF of 15% #Coronary artery disease #Mechanical mitral valve on anticoagulation with warfarin #Severe tricuspid regurgitation #Essential hypertension #Hyperlipidemia Cardiology is following the patient TSH is 0.018, free T4 is 1.56: Doubt of hyperthyroidism and probably TSH suppressed in setting of acute illness: Will need repeat TSH with free T4 to be repeated outpatient in 4 to 6 weeks time as outpatient through PCP She was initially on amiodarone infusion which has been switched to amiodarone 200 mg p.o. twice daily She is currently in sinus rhythm 2D echo from 07/21/2024 showed EF of 15 to 20% with mild concentric left ventricular hypertrophy, severe global hypokinesis of the left ventricle with severe tricuspid regurgitation. Cardiology was concerned the patient may have a thrombus on her mechanical mitral valve Cardiology held Coumadin and switch patient to heparin infusion She had GEORGETTE this morning, results pending I/O monitoring Daily weights Hold losartan for now in light of hyperkalemia Continue aspirin Hold statin in light of elevated LFTs Continue Toprol-XL 25 mg p.o. daily Awaiting further cardiology recommendations post GEORGETTE #History of TIA # Acute on chronic left-sided weakness #Status post L3/S1 spinal decompression and fusion by Dr. Cheney in November 2023 CT of the head showed no evidence of acute intracranial pathology CT of the cervical spine showed critical spinal canal stenosis at C4-C5 and C5- C6 CT of the L-spine shows status post decompression, interbody and posterior fusion of L3-S1. There is epidural fluid collection extending to the subcutaneous fat. MRI of the brain showed possibility of tiny acute to subacute lacunar infarct versus artifact. I spoke with neurologist Dr. Perry regarding MRI and patient's clinical findings which do not match MRI report: Neurology reviewed the report and scans and do not feel this is a new infarct and have recommended patient follow-up with Dr. Helms from neurology as outpatient on discharge Carotid Doppler showed no sonographic evidence of hemodynamically significant stenosis in the right or left carotid arterial system MRI of the C-spine does not show acute fracture, there is multilevel spondylosis and possible ligamentous injury. MRI of the lumbar spine showed no evidence of acute lumbar spine pathology. Awaiting PT/OT consult and recommendation #Abnormal LFTs Hold statin for now LFTs are rising Check ultrasound of the abdomen Hepatitis A IgM and hep B core IgM are pending Hepatitis B surface antigen and hepatitis C antibody are negative Monitor LFTs # JASON # Hyperkalemia Nephrology consulted Hold losartan Patient did receive IV Lasix yesterday for diuresis Monitor renal function electrolytes Avoid nephrotoxic agents including NSAIDs Await nephrology consult and recommendations #COPD #Tobacco use disorder Continue Breo Ellipta Patient is not currently in COPD exacerbation Smoking cessation counseling provided Patient declined nicotine replacement patch #Type 2 diabetes mellitus #Obesity with BMI of 36.6 A1c 7.1 Lifestyle counseling regarding diet, exercise and weight loss provided Pharmacy on board for glycemic management CODE STATUS: Full code DVT prophylaxis: Patient on heparin infusion Care plan discussed with patient, nursing staff and family including son and updated at bedside Admission and Anticipated Discharge Date Admission Date: July 20, 2024 Subjective Patient seen and examined Patient's and son at bedside Labs, vital signs and radiology reviewed Patient reports feeling better today with her breathing She just got back from [place]: Report pending Denies any chest pain, nausea, vomiting, diarrhea, abdominal pain Review of Systems Review of Systems: As per HPI Physical Exam Physical Exam: General: No acute distress Psych: Awake and alert HEENT: Anicteric sclera, moist oral mucosa CVS: Regular rate and rhythm, mechanical click noted Lungs: Bilateral air entry with decreased breath sounds at bases, no wheezing noted Abdomen: Soft, nontender, no rebound, no guarding Ext: No lower extremity edema, no calf tenderness Neuro: Strength is 4 out of 5 in left upper extremity and 3 out of 5 in left lower extremity, she is able to move all her 4 extremities : Thompson catheter in place Results & Data Results & Data Vital Signs (Past 12 Hours) Vital Signs Temp Pulse Pulse Pulse Resp BP BP 07/22/24 09:17 36.4 C L 66 18 109/65 07/22/24 08:52 68 15 106/57 L 07/22/24 08:40 68 14 106/72 07/22/24 08:25 72 14 136/75 07/22/24 08:20 69 18 140/70 07/22/24 08:15 63 15 103/69 07/22/24 08:13 64 15 112/62 07/22/24 07:23 56 L 15 111/63 07/22/24 07:23 57 L 14 86/72 L 07/22/24 04:13 36.4 C L 61 18 122/84 07/21/24 23:29 56 L 07/21/24 23:06 36.3 C L 58 L 18 111/74 Pulse Ox O2 Del Method O2 Flow Rate 07/22/24 09:17 94 Nasal Cannula 07/22/24 08:52 98 Room Air 07/22/24 08:40 98 Room Air 07/22/24 08:25 98 Room Air 07/22/24 08:20 100 Oxymask 10 07/22/24 08:15 94 Oxymask 10 07/22/24 08:13 94 Oxymask 10 07/22/24 07:23 96 Room Air 07/22/24 07:23 92 Room Air 07/22/24 04:13 99 CPAP 07/21/24 23:29 07/21/24 23:06 99 Nasal Cannula 2 Laboratory Results Laboratory Results - last 24 hr 07/21/24 07/21/24 07/21/24 13:31 17:19 20:16 WBC RBC Hgb Hct MCV MCH MCHC RDW Std Deviation RDW Coeff of Majo Plt Count MPV Immature Gran % (Auto) Neut % (Auto) Lymph % (Auto) [place] % (Auto) Eos % (Auto) Baso % (Auto) Neut # (Auto) Lymph # (Auto) [place] # (Auto) Eos # (Auto) Baso # (Auto) Immature Gran # (Auto) Absolute Nucleated RBC Nucleated RBC % (auto) PT INR Heparin Anti-Xa, Unfract Sodium Potassium Chloride Carbon Dioxide Anion Gap BUN Creatinine Est Cr Clr Drug Dosing Est GFR ( Amer) Est GFR (Non-Af Amer) BUN/Creatinine Ratio Glucose POC Glucose 170 H 218 H 214 H Estimat Average Glucose Hemoglobin A1c Calcium Magnesium Total Bilirubin AST ALT Alkaline Phosphatase Total Protein Albumin Globulin Albumin/Globulin Ratio Vitamin B12 TSH Free T4 07/21/24 07/22/24 20:47 05:27 WBC 11.22 H RBC 3.45 L Hgb 9.4 L Hct 30.6 L MCV 88.7 MCH 27.2 MCHC 30.7 L RDW Std Deviation 55.4 H RDW Coeff of Majo 17.1 H Plt Count 223 MPV 10.6 Immature Gran % (Auto) 0.3 Neut % (Auto) 64.8 Lymph % (Auto) 28.3 [place] % (Auto) 6.3 Eos % (Auto) 0.2 Baso % (Auto) 0.1 Neut # (Auto) 7.28 H Lymph # (Auto) 3.17 [place] # (Auto) 0.71 H Eos # (Auto) 0.02 Baso # (Auto) 0.01 Immature Gran # (Auto) 0.03 Absolute Nucleated RBC 0.21 H Nucleated RBC % (auto) 1.9 PT 28.4 H INR 2.9 H Heparin Anti-Xa, Unfract 0.38 0.59 Sodium 136 Potassium 5.2 H Chloride 104 Carbon Dioxide 28 Anion Gap 4 BUN 35 H Creatinine 1.77 H D Est Cr Clr Drug Dosing 42.5 Est GFR ( Amer) 35.8 Est GFR (Non-Af Amer) 30.9 BUN/Creatinine Ratio 19.8 Glucose 127 H POC Glucose Estimat Average Glucose 157 Hemoglobin A1c 7.1 H Calcium 8.6 Magnesium 2.3 Total Bilirubin 0.5 AST 200 H ALT 142 H Alkaline Phosphatase 267 H Total Protein 6.6 Albumin 3.4 Globulin 3.2 Albumin/Globulin Ratio 1.1 Vitamin B12 597 TSH 0.018 L Free T4 Pending Diagnostic Findings Cervical Spine MRI 07/21/24 06:24 MRI OF THE CERVICAL SPINE COMBO CLINICAL HISTORY: Cervical stenosis. COMPARISON STUDY: CT of the cervical spine dated 07/20/2024. MRI of the cervical spine dated 03/03/2018. TECHNIQUE: MRI of the cervical spine was performed utilizing various T1 and T2- weighted sequences in the axial and sagittal planes. Contrast-enhanced sequences are acquired following the IV administration of 10 cc of Gadavist. The examination is significantly degraded by motion artifact. FINDINGS: Cervical spine: Vertebral body height and alignment are maintained throughout the cervical spine. There is straightening of the cervical lordosis with reversal centered at C5. Anterior osteophytes are seen throughout. The atlantodental articulation is maintained. The spinous processes appear intact. No destructive bony process is seen. Mild chronic degenerative endplate changes noted at C5-C6 and C6-C7. Intervertebral discs: Disc desiccation and loss of height is seen throughout the cervical spine. Loss of height is moderate to severe at all levels between C3-C4 and C6-C7. Cervical cord: The cervical cord is normal in morphology and signal intensity. No abnormal postcontrast enhancement is identified. C2-C3: Unremarkable. C3-C4: A posterior disc osteophyte complex minimally effaces the ventral subarachnoid space. Uncovertebral and facet arthropathy contribute to at least mild left neural foraminal stenosis. The right neural foramen appears patent. C4-C5: A posterior disc osteophyte complex abuts the ventral cord. Lateral disc bulge is seen bilaterally, left greater than right. In conjunction with facet arthropathy, there is severe left and moderate to severe right neuroforaminal stenosis. There is likely impingement on the exiting bilateral C5 nerve roots. C5-C6: A posterior disc osteophyte complex effaces the ventral subarachnoid space. There is a left lateral disc bulge. In conjunction with facet arthropathy, there is moderate to severe left neural foraminal stenosis. There is only mild neural foraminal narrowing seen on the right. There may be impingement on the exiting left C6 nerve root. C6-C7: A posterior disc osteophyte complex minimally effaces the ventral subarachnoid space. Lateral disc bulge is seen bilaterally, left greater than right. In conjunction with facet arthropathy, there is severe left and moderate to severe right neural foraminal stenosis. There is probable impingement on the exiting left C7 nerve root. C7-T1: Unremarkable. Soft tissues: The prevertebral soft tissues are normal as imaged. There is nonspecific interspinous edema at C2-C3, C6-C7, and C7-T1. This could potentially be seen in the setting of ligamentous injury. The thyroid gland is enlarged and heterogeneous. Brain parenchyma: The imaged brain parenchyma at the skull base is within normal limits. IMPRESSION: 1. There is no MRI evidence of acute fracture. 2. There is nonspecific interspinous edema at C2-C3, C6-C7, and C7-T1. This could potentially be seen in the setting of ligamentous injury. Clinical correlation will be essential. 3. Multilevel spondylosis as above. See discussion for detailed level by level analysis. 4. The cervical cord is normal in morphology and signal intensity with no abnormal postcontrast enhancement identified. Dictated: 07/21/2024 1:47 PM Transcribed: 07/21/2024 2:25 PM Roseanne [id number] [facility] [id number] Electronically signed by: Marin De La Rosa M.D. 07/21/2024 2:30 PM Lumbar Spine MRI 07/21/24 06:24 MRI OF THE LUMBAR SPINE COMBO CLINICAL HISTORY: Chronic low back pain. Recent fall. COMPARISON STUDY: CT scans of the lumbar spine dated 07/20/2024 and 02/16/2024. MRI of the lumbar spine dated 02/13/2020. TECHNIQUE: MRI of the lumbar spine was performed utilizing various T1 and T2- weighted sequences the axial and sagittal planes. Contrast enhanced sequences were acquired following the administration of 10 cc of Gadavist. The examination is significantly compromised by motion artifact. The examination is also degraded by susceptibility artifact from extensive metallic spinal hardware. FINDINGS: Lumbar spine: There is a minimal chronic superior endplate compression deformity of L2. Vertebral body height is otherwise maintained throughout the lumbar spine. Alignment is preserved. Anterior and lateral marginal osteophytes are seen throughout. There is postsurgical change from laminectomy and posterior fusion seen at L3-S1. Interpedicular screws are present at all levels. No destructive bony lesion is seen. A hemangioma is noted in the body of L1. Chronic degenerative endplate changes noted at several levels. No significant endplate edema is seen. Intervertebral discs: There has been discectomy at L3-L4, L4-L5, and L5-S1. Mild disc desiccation is seen at the remaining levels. Spinal cord and central canal: The visualized spinal cord is normal in morphology and signal intensity. The conus medullaris terminates at the L1-L2 interspace. The nerve roots of the cauda equina are normal in morphology. No abnormal postcontrast enhancement is identified. No epidural fluid collection is seen. L1-L2: Mild facet arthropathy is of no consequence. The central canal and neural foramina are patent. L2-L3: There is broad-based posterior disc bulge which abuts the transiting nerve roots. No significant central canal stenosis is seen. Facet arthropathy is of no consequence. The neural foramina are patent. L3-L4: The central canal and neural foramina are grossly patent. L4-L5: The central canal and neural foramina are grossly patent. L5-S1: The central canal appears patent. The neural foramina are not well assessed. Sacrum: The visualized sacrum is normal in morphology and signal intensity. Soft tissues: Postsurgical changes seen posterior to the thecal sac at the operative levels. There is a complex fluid collection in the subcutaneous soft tissues of lower back extending from L3 to L5. This contains layering internal debris and measures approximately 8.5 x 2.5 x 4.5 cm. This is deep to the incision site and likely represents a seroma. There is mild fatty atrophy of the paraspinous musculature. The retroperitoneal structures are grossly unremarkable but incompletely evaluated. Free fluid is seen in the pelvis. IMPRESSION: 1. The examination is degraded by motion artifact, as well as by susceptibility artifact from multilevel spinal hardware. 2. No acute bony abnormality is seen. 3. Mild spondylotic and extensive postsurgical change as above. There is no significant central canal stenosis. 4. No epidural fluid collection or abnormal enhancement is seen. 5. There is a complex fluid collection within the subcutaneous soft tissues at the operative levels as above. This contains layering debris and likely represents a seroma. The sterility of this fluid cannot be assessed by imaging and clinical correlation will be essential. This fluid collection has somewhat decreased in size as compared to 02/16/2024. 6. There is free fluid in the cul-de-sac. Dictated: 07/21/2024 2:06 PM Transcribed: 07/21/2024 2:40 PM Roseanne [id number] Yamini [id number] Electronically signed by: Marin De La Rosa M.D. 07/21/2024 4:25 PM Brain MRI 07/21/24 09:18 MRI OF THE BRAIN COMBO CLINICAL HISTORY: Strokelike symptoms. Left-sided weakness. COMPARISON STUDY: CT of the brain dated 07/20/2024. TECHNIQUE: MRI of the brain was performed utilizing various T1 and T2-weighted s equences in the axial, sagittal, and coronal planes. Contrast-enhanced sequences were acquired following the administration of 10 cc of Gadavist. The examination is degraded by motion artifact. FINDINGS: Brain parenchyma: There is a punctate focus of restricted diffusion suggested in the right cerebellar hemisphere on image #7, which could not be corroborated on the ADC map. This could represent a punctate acute to subacute lacunar infarct versus T2 shine through. No additional foci versus diffusion are seen to suggest acute ischemia. There is no hemorrhage or mass effect. There is minimal microangiopathic change. Additional punctate chronic lacunar infarcts are suggested in the right cerebellar hemisphere. There is no evidence of enhancing lesion on the postcontrast sequences. Jose-white matter differentiation is preserved. No extra-axial fluid collection is seen. The cerebellar tonsils are normal in configuration. Ventricles, sulci, and cisterns: Normal in configuration. Pituitary and sella: Partially empty sella is incidentally noted. Intracranial vasculature: Normal flow voids are maintained at the skull base. Orbits: The bony orbits are grossly intact. Orbital contents are normal in appearance. Sinuses and mastoids: There is trace right mastoid effusion. The left mastoid air cells and paranasal sinuses are clear. Calvarium: Unremarkable. Soft tissues: There is a 1.5 cm lipoma of the right frontal scalp. Cervical cord: Partially visualized cervical spinal cord is normal in morphology and signal intensity. IMPRESSION: 1. There is a punctate focus of apparent restricted diffusion in the right cerebellar hemisphere which could not be corroborated on the ADC maps. This could represent a tiny acute to subacute lacunar infarct versus a focus of T2 shine through. Clinical correlation will be required. 2. No additional findings are suspicious for acute ischemia. 3. There is no hemorrhage or mass effect. ACT 112: Negative or not required by law. Electronically signed by: Marin De La Rosa M.D. 07/21/2024 1:43 PM Carotid Doppler Study 07/21/24 15:15 ULTRASOUND OF THE CAROTID ARTERIES CLINICAL HISTORY: Strokelike symptoms. Left-sided weakness. COMPARISON STUDY: Carotid artery ultrasound dated 12/27/2015 TECHNIQUE: Real-time, grayscale, and color Doppler sonography of the carotid arteries is performed. Images are reviewed in the transverse and longitudinal planes. FINDINGS: The carotid arteries are patent bilaterally and demonstrate antegrade flow. There is moderate atherosclerotic plaque seen the carotid bulbs bilaterally. Normal doppler arterial waveforms are seen throughout. Velocity measurements are listed below. Common carotid peak systolic velocity (cm/sec): RIGHT: 72 LEFT: 74 ICA proximal peak systolic velocity (cm/sec): RIGHT: 50 LEFT: 64 ICA mid/distal peak systolic velocity (cm/sec): RIGHT: 67 LEFT: 43 ICA/CC peak systolic ratio: RIGHT: 0.9 LEFT: 0.9 Antegrade flow was shown in the vertebral arteries. The external carotid arteries are patent. IMPRESSION: 1. There is no sonographic evidence of hemodynamically significant stenosis in the right or left carotid arterial system. 2. Antegrade flow is shown in the vertebral arteries. ACT 112: Negative or not required by law. Electronically signed by: Marin De La Rosa M.D. 07/21/2024 5:20 PM PG Care Time/CCT Total # of Minutes Spent Total Time Spent with Patient: Total time spent is greater than 50% in coordination of care (as documented) at patient's floor/unit and/or counseling patient: Coding Level of Care Code 39627 SUB INP/OBS CARE 3/50MIN Diagnoses Atrial flutter I48.92 Acute systolic CHF (congestive heart failure) I50.21 Status post mitral valve replacement with metallic valve Z95.4 Elevated LFTs R79.89 COPD (chronic obstructive pulmonary disease) J44.9 History of TIA (transient ischemic attack) Z86.73 Type 2 diabetes mellitus with obesity E11.69; E66.9 Chronic anticoagulation Z79.01 Obstructive sleep apnea on CPAP G47.33; Z99.89 History of tobacco abuse Z87.891
[2024-07-22 10:06] LABS: T4 Free Thyroxine 1.56 ng/dl (0.61-1.60)
--- NOTE | 2024-07-22 10:12 | Anesthesiology Progress Note ---
Date of Service July 22, 2024 Anesthesia Post Procedure Vital Signs Vital Signs: Temp Pulse Pulse Pulse Resp BP BP 07/22/24 09:17 36.4 C L 66 18 109/65 07/22/24 08:52 68 15 106/57 L 07/22/24 08:40 68 14 106/72 07/22/24 08:25 72 14 136/75 07/22/24 08:20 69 18 140/70 07/22/24 08:15 63 15 103/69 07/22/24 08:13 64 15 112/62 07/22/24 07:23 56 L 15 111/63 07/22/24 07:23 57 L 14 86/72 L 07/22/24 04:13 36.4 C L 61 18 122/84 07/21/24 23:29 56 L 07/21/24 23:06 36.3 C L 58 L 18 111/74 07/21/24 21:00 66 20 07/21/24 20:14 07/21/24 19:02 36.3 C L 58 L 18 121/77 07/21/24 16:24 76 07/21/24 14:19 71 18 130/84 07/21/24 13:37 36.3 C L 70 18 147/89 H Pulse Ox O2 Del Method O2 Flow Rate 07/22/24 09:17 94 Nasal Cannula 07/22/24 08:52 98 Room Air 07/22/24 08:40 98 Room Air 07/22/24 08:25 98 Room Air 07/22/24 08:20 100 Oxymask 10 07/22/24 08:15 94 Oxymask 10 07/22/24 08:13 94 Oxymask 10 07/22/24 07:23 96 Room Air 07/22/24 07:23 92 Room Air 07/22/24 04:13 99 CPAP 07/21/24 23:29 07/21/24 23:06 99 Nasal Cannula 2 07/21/24 21:00 99 2 07/21/24 20:14 Room Air 07/21/24 19:02 100 Nasal Cannula 2 07/21/24 16:24 07/21/24 14:19 100 Nasal Cannula 2 07/21/24 13:37 96 Nasal Cannula 2 Pain Intensity Chest: Pain Intensity: 7 Back: Pain Intensity: 2 Transfer of Care Handoff Completed per policy Notes Mental Status: alert / awake / arousable Patient Amnestic to Procedure: Yes Nausea / Vomiting: adequately controlled Pain: adequately controlled Airway Patency, RR, SpO2: stable & adequate BP & HR: stable & adequate Hydration State: stable & adequate Anesthetic Complications: no major complications apparent
[2024-07-22 10:59] LABS: Hep B Surface Ag with confirm Negative (Negative)
[2024-07-22 11:03] LABS: Hep C Ab Rflx HepCQuant RNA Negative (Negative)
--- NOTE | 2024-07-22 11:15 | Pharmacy Report ---
Pharmacy Glycemic Short Note 2 - Date of Service July 22, 2024 - Glycemic Short BSG Results (Last 24 hours): 07/21/24 07/21/24 07/21/24 13:31 17:19 20:16 Glucose POC Glucose 170 H 218 H 214 H 07/22/24 07/22/24 05:27 10:55 Glucose 127 H POC Glucose 159 H OUTPATIENT ANTIDIABETIC REGIMEN: * metformin 1000 mg PO BID * dulaglutide 4.5 mg SQ q7d (Fridays) * A1c = 6.9% ASSESSMENT: 07/22 * Blood sugars at goal today, was NPO this morning, but then ordered diet. * Will give daily Lantus dose and continue to titrate to goal blood sugar. * Pt remains on heparin drip. 07/21 * Deb is a 58 yo T2DM admitted with increased shortness of breath over the past few days. Started on amiodarone infusion for A.flutter and now converted to oral. Also on heparin IV infusion. Good outpatient glycemic control - A1c 6.9%. * Persistent hyperglycemia despite initiation of short acting insulin. * Will tighten Novolog CF and CR. Add conservative dose of Lantus per patient NPO at midnight. * During past admission, patient required 25-30 units of Lantus per day while on high dose IV steroids. PLAN FOR INPATIENT GLYCEMIC CONTROL: * Hold outpatient diabetes medications * Basal insulin * Lantus 10 units SQ Daily * Bolus insulin * NovoLog per scale ACHS or Q6hrs while NPO * Goal Range: Low 110 mg/dL - High 160 mg/dL * Correction Factor: 30 mg/dL/unit * Nutritional / Prandial insulin per carb ratio of 1 unit per 10 grams CHO consumed
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
--- NOTE | 2024-07-22 14:39 | XCELERA ---
[id number]
--- NOTE | 2024-07-22 15:02 | Ultrasound Report ---
RENAL ULTRASOUND HISTORY: taylor COMPARISON: CT abdomen and pelvis 01/24/2024 FINDINGS: Right kidney: 11.5 cm. No hydronephrosis. Normal corticomedullary differentiation and cortical thickn ess. Left kidney: 10.4 cm. No hydronephrosis. Normal corticomedullary differentiation and cortical thickne ss. Bladder: Decompressed with urinary bladder catheter. IMPRESSION: Unremarkable renal ultrasound. ACT 112: Negative or not required by law. Electronically signed by: Errol Cruz M.D. 07/22/2024 3:00 PM
[2024-07-22] MEDS ORDERED: cefTRIAXone SODIUM 1,000 MG/50 ML BAG IV STA (15:13)
--- NOTE | 2024-07-22 15:27 | Cardiology Progress Note ---
Date of Service July 22, 2024 Assessment & Plan (1) Acute systolic CHF (congestive heart failure): (2) Status post mitral valve replacement with metallic valve: (3) Atrial flutter: (4) Cardiomyopathy: (5) Dizziness: (6) Junctional tachycardia: Plan 1. Acute on chronic systolic heart failure. Severely reduced LV systolic function. Her initial presentation was consistent with an element of pulmonary vascular congestion. She underwent an aggressive diuresis resulting in some mild azotemia. Lung examination not entirely consistent with pulmonary vascular congestion. At this point we will defer additional diuretics and monitor her renal function. 2. Cardiomyopathy: She has severely reduced LV systolic function. I do not suspect this is a result of an ischemic event. It is very possible she had atrial flutter for an extended duration. She generally does not take her heart rate at home. Last documented heart rate prior to admission was approximately 5 weeks prior. If this is truly a tachycardia mediated cardiomyopathy I would expect some improvement over the next few weeks. We will attempt to intensify her medical regimen once her renal function improves. Hopefully we can transition her to Entresto and an SGLT2 inhibitor. Potassium currently on the high side and she may be a poor candidate for spironolactone. I do not think there is a need for urgent angiography. No symptoms of ischemia, no significantly elevated biomarkers. I think we can certainly monitor her function over a few weeks and decide if catheterization is warranted in the setting of continued LV dysfunction. 3. Atrial flutter: This appeared to be the presenting rhythm. Very possible this resulted in high ventricular rates and reduced LV function. She certainly an individual who is likely to have atrial flutter based on her pulmonary disease. Also possibly an atypical flutter given her history of mitral valve replacement. At this point it would seem reasonable to continue amiodarone and monitor her LV function. Not a good candidate for ablation of an atypical flutter given the mechanical valve, but it is possible this represents typical right atrial flutter as well. She will continue her systemic anticoagulation. 4. Accelerated junctional rhythm: This appears to be the current rhythm. Heart rates have been normal. No overt symptoms. She does have an EKG from May which appeared to be a junctional rhythm as well. I think we will get a better understanding of her conduction when she is ambulatory. 5. Mechanical mitral valve: This appears to be functioning normally on echocardiography performed today. 6. Dizziness: She does report dizziness. However this tends to occur most of the time. Sometimes at rest, sometimes with changes in position. At times this is more consistent with vertigo. I am not convinced this is related to her current rhythm. Will get a better understanding when she is ambulatory. Admission and Anticipated Discharge Date Admission Date: July 20, 2024 Subjective This afternoon the patient continued to have symptoms of breathing difficulty. She feels better using the CPAP during the daytime. She also reports feeling better with some supplemental oxygen. She did not report any sense of fluttering. No chest pain. She does report nearly chronic dizziness. Some of this may be related to vertigo. Some appears to be positional. she has not been ambulatory since admission. Review of Systems Review of Systems: Per HPI Physical Exam Physical Exam: She is alert and oriented x3. Mood affect appear normal. She answered all questions appropriately. Using CPAP HEENT: Sclerae are anicteric. Pupils are equal and reactive to light and accommodation. Extraocular movements were intact. Neuro: Cranial nerves intact Lungs: Some increased work of breathing. Some expiratory wheezing. Occasional crackle primarily at the left base. Cardiac: The rhythm was regular. Mechanical S1. Normal S2. Soft diastolic murmur.. The PMI was not markedly displaced on palpation. Abdomen: The abdomen was soft and nontender. Extremities: Patient has bilateral radial pulses that are equal in intensity. There is no evidence cyanosis or clubbing. There was no evidence of significant peripheral edema bilaterally. Skin: There are no rashes noted on examination today. Results & Data Vital Signs (Past 12 Hours) Vital Signs Temp Pulse Pulse Pulse Resp BP BP 07/22/24 14:48 36.7 C 60 20 113/73 07/22/24 14:24 61 07/22/24 10:40 36.8 C 63 18 124/78 07/22/24 09:17 36.4 C L 66 18 109/65 07/22/24 08:52 68 15 106/57 L 07/22/24 08:40 68 14 106/72 07/22/24 08:25 72 14 136/75 07/22/24 08:20 69 18 140/70 07/22/24 08:15 63 15 103/69 07/22/24 08:13 64 15 112/62 07/22/24 07:23 56 L 15 111/63 07/22/24 07:23 57 L 14 86/72 L 07/22/24 04:13 36.4 C L 61 18 122/84 Pulse Ox O2 Del Method O2 Flow Rate 07/22/24 14:48 99 CPAP 07/22/24 14:24 07/22/24 10:40 99 CPAP 07/22/24 09:17 94 Nasal Cannula 07/22/24 08:52 98 Room Air 07/22/24 08:40 98 Room Air 07/22/24 08:25 98 Room Air 07/22/24 08:20 100 Oxymask 10 07/22/24 08:15 94 Oxymask 10 07/22/24 08:13 94 Oxymask 10 07/22/24 07:23 96 Room Air 07/22/24 07:23 92 Room Air 07/22/24 04:13 99 CPAP Laboratory Results Abnormal Lab Results 07/20/24 07/21/24 07/21/24 22:00 17:19 20:16 WBC RBC Hgb Hct MCV MCH MCHC RDW Std Deviation RDW Coeff of Majo Plt Count MPV Immature Gran % (Auto) Neut % (Auto) Lymph % (Auto) Waldo % (Auto) Eos % (Auto) Baso % (Auto) Neut # (Auto) Lymph # (Auto) Waldo # (Auto) Eos # (Auto) Baso # (Auto) Immature Gran # (Auto) Absolute Nucleated RBC Nucleated RBC % (auto) PT INR Heparin Anti-Xa, Unfract Sodium Potassium Chloride Carbon Dioxide Anion Gap BUN Creatinine Est Cr Clr Drug Dosing Est GFR ( Amer) Est GFR (Non-Af Amer) BUN/Creatinine Ratio Glucose POC Glucose 218 H 214 H Estimat Average Glucose Hemoglobin A1c Calcium Magnesium Total Bilirubin AST ALT Alkaline Phosphatase Total Protein Albumin Globulin Albumin/Globulin Ratio Vitamin B12 TSH Free T4 Hep Bs Antigen Negative Hepatitis C Antibody Negative 07/21/24 07/22/24 07/22/24 20:47 05:27 10:55 WBC 11.22 H RBC 3.45 L Hgb 9.4 L Hct 30.6 L MCV 88.7 MCH 27.2 MCHC 30.7 L RDW Std Deviation 55.4 H RDW Coeff of Majo 17.1 H Plt Count 223 MPV 10.6 Immature Gran % (Auto) 0.3 Neut % (Auto) 64.8 Lymph % (Auto) 28.3 Waldo % (Auto) 6.3 Eos % (Auto) 0.2 Baso % (Auto) 0.1 Neut # (Auto) 7.28 H Lymph # (Auto) 3.17 Waldo # (Auto) 0.71 H Eos # (Auto) 0.02 Baso # (Auto) 0.01 Immature Gran # (Auto) 0.03 Absolute Nucleated RBC 0.21 H Nucleated RBC % (auto) 1.9 PT 28.4 H INR 2.9 H Heparin Anti-Xa, Unfract 0.38 0.59 Sodium 136 Potassium 5.2 H Chloride 104 Carbon Dioxide 28 Anion Gap 4 BUN 35 H Creatinine 1.77 H D Est Cr Clr Drug Dosing 42.5 Est GFR ( Amer) 35.8 Est GFR (Non-Af Amer) 30.9 BUN/Creatinine Ratio 19.8 Glucose 127 H POC Glucose 159 H Estimat Average Glucose 157 Hemoglobin A1c 7.1 H Calcium 8.6 Magnesium 2.3 Total Bilirubin 0.5 AST 200 H ALT 142 H Alkaline Phosphatase 267 H Total Protein 6.6 Albumin 3.4 Globulin 3.2 Albumin/Globulin Ratio 1.1 Vitamin B12 597 TSH 0.018 L Free T4 1.56 Hep Bs Antigen Hepatitis C Antibody Diagnostic Findings Transesophageal echocardiogram performed today did not reveal any evidence of thrombus or dysfunction of the mitral valve. Severe left atrial dilation. Spontaneous contrast in the left atrium. No thrombus. Severely reduced LV systolic function. PG Care Time/CCT Total # of Minutes Spent Total Time Spent with Patient: Total time spent is greater than 50% in coordination of care (as documented) at patient's floor/unit and/or counseling patient: Coding Level of Care Code 66622 SUB INP/OBS CARE 2/35MIN Diagnoses Acute systolic CHF (congestive heart failure) I50.21 Status post mitral valve replacement with metallic valve Z95.4 Atrial flutter I48.92 Cardiomyopathy I42.9 Dizziness R42 Junctional tachycardia I47.19
[2024-07-22] MEDS: cefTRIAXone SODIUM 2,000 MG/50 ML BAG IV STA (16:05)
[2024-07-22 16:06] LABS: Appearance Urine Cloudy (Clear); Bilirubin Urine Negative (Negative); Blood Urine 3+ (Negative); Color Urine Dark Yellow; Epithelial Cell Urine Auto 0-2 /hpf (0-2); Glucose Urine UA Negative (Negative); Ketones Urine Negative (Negative); Leukocyte Esterase Urine 1+ (Negative); Nitrite Urine Negative (Negative); Protein Urine 2+ (Negative); RBC Urine Automated >20 /hpf (0-2); Specific Gravity Urine 1.023 (1.000-1.030); Urobilinogen Urine Negative (Negative); pH Urine 5.5 (4.5-7.5)
[2024-07-22 16:28] LABS: Bacteria Urine Automated 2+ (None Seen)
[2024-07-22] MEDS: WARFARIN SOD 10 MG TAB PO ONE (19:54)
[2024-07-23] MEDS: WARFARIN SOD 5 MG TAB PO SCH ×2 (01:47→15:41)
[2024-07-23] MEDS: DICLOFENAC SOD 1% GEL 100 GM TUBE EXT PRN (03:43)
--- NOTE | 2024-07-23 07:17 | Ultrasound Report ---
Exam(s): US LIVER EXAM: US Abdomen Limited CLINICAL HISTORY: Rising liver function tests. TECHNIQUE: Real-time ultrasound of the abdomen with image documentation. COMPARISON: Renal ultrasound 07/22/2024 FINDINGS: Liver: The liver measures 19.8 cm. Coarse echogenicity of the liver may relate to fatty infiltration and/or hepatocellular dysfunction. Common bile duct: The common bile duct is normal measuring 0.3 cm. Pancreas: The pancreatic head and body are within normal limits. The tail is not visualized due to overlying bowel gas. IMPRESSION: 1. Nonspecific hepatomegaly. 2. Coarse echogenicity of the liver may relate to fatty infiltration and/or hepatocellular dysfunction. Electronically signed by: Marina Valle MD 07/23/24 07:16 AM
[2024-07-23 08:20] LABS: Basophils # (auto) 0.02 K/uL (0.00-0.20); Basophils % (auto) 0.3 %; Eosinophils # (auto) 0.03 K/uL (0.00-0.50); Eosinophils % (auto) 0.4 %; Hematocrit (blood only) 30.2 % (37.0-47.0); Hemoglobin 9.4 g/dl (12.0-16.0); Immature Granulocytes # (auto) 0.02 K/uL (0.01-0.20); Immature Granulocytes % (auto) 0.3 %; Lymphocytes % (auto) 36.8 %; Mean Corpuscular Hemoglobin 27.6 pg (25.0-34.0); Mean Corpuscular Hgb Conc 31.1 g/dL (32.0-36.0); Mean Corpuscular Volume 88.6 fL (80.0-100.0); Mean Platelet Volume 10.1 fL (9.4-12.4); Monocytes % (auto) 8.2 %; Neutrophils # (auto) 3.97 K/uL (1.40-6.50); Nucleated RBC % (auto) 2.7 %; Platelet Count 210 K/uL (130-400); RDW Coefficient of Variation 17.1 % (11.5-14.5); RDW Standard Deviation 55.5 fL (36.4-46.3); Red Blood Count 3.41 M/uL (4.20-5.40); White Blood Count 7.34 K/ul (4.8-10.8)
[2024-07-23 08:36] LABS: Albumin Globulin Ratio 1.1 (0.9-2); Albumin Level 3.3 gm/dl (3.4-5.0); BUN Creatinine Ratio 30.8 (10-20); Bilirubin,Total 0.4 mg/dl (0.2-1.0); Calcium 8.3 mg/dl (8.6-10.3); Creatinine Clr Calc Pharmacy 72.5 ml/min; Est GFR (African American) 68.1 ml/min; Est GFR (Non-African American) 58.8 ml/min; Globulin 3.1 gm/dl (2.5-4.0); Magnesium 2.3 mg/dl (1.7-2.4); Potassium 5.7 mmol/L (3.5-5.1); Total Protein 6.4 gm/dl (6.0-8.3)
[2024-07-23 08:43] LABS: INR 2.1 (0.9-1.1)
[2024-07-23 08:54] LABS: Polychromasia 1+
[2024-07-23] MEDS ORDERED: cefTRIAXone SODIUM 1,000 MG/50 ML BAG IV SCH (09:00)
[2024-07-23] MEDS ORDERED: ENOXAPARIN 1 MG/KG SQ SCH (09:00)
[2024-07-23 09:41] LABS: Hepatitis A Antibody IgM NON-REACTIVE (NON-REACTIVE); Hepatitis B Core Antibody IgM NON-REACTIVE (NON-REACTIVE)
--- NOTE | 2024-07-23 09:41 | Nephrology Progress Note ---
Date of Service July 23, 2024 Assessment & Plan (1) JASON (acute kidney injury): Plan: Non-oliguric. JASON attributed to cardiorenal syndrome. Creatinine improved. Hyperkalemia but otherwise normal electrolytes. Volume status acceptable. There is no indication for LAST PICKER at this time. Medications are appropriate for kidney function. Losartan held. Avoid RAASi pending improvement in potassium. Diuretics PRN to encourage a slightly negative fluid balance. Document strict I/O's. Repeat metabolic profile tomorrow AM. Renal US without evidence of obstruction. Urine microscopy with hyaline but no granular casts. Multiple RBC + WBC without symptoms of UTI. (2) Hyperkalemia: Plan: Low potassium diet. Diuretics PRN to encourage urine output. Lokelma x 10 gm now. Repeat labs this afternoon. (3) Acute systolic CHF (congestive heart failure): Plan: Cardiology following. Avoid RAASi for now pending improvement in kidney function. (4) Status post mitral valve replacement with metallic valve: Plan: GEORGETTE completed yesterday reassuring. (5) Hypertension: Plan: BP acceptable. Admission and Anticipated Discharge Date Admission Date: July 20, 2024 Subjective No acute events overnight. Deb is resting comfortably in bed this morning. She denies chest pains. She denies shortness of breath at rest. She admits to significant fatigue. Review of Systems Review of Systems: All systems reviewed & are unremarkable except as noted in HPI & below Physical Exam Constitutional: well developed; no acute distress Eyes: + anicteric sclerae Neck: normal visual inspection and trachea midline Respiratory: normal respiratory effort Auscultation: + wheezes Cardiovascular: Rate/Rhythm: + bradycardic Heart Sounds: normal S1, normal S2 and + murmur Extremities: + edema (trace) Musculoskeletal: Extremities: no cyanosis and no clubbing Skin: normal turgor; no jaundice Neurologic: Motor/Sensory: no tremor and no asterixis Psychiatric: Orientation: alert and cooperative Results & Data Vital Signs (Past 12 Hours) Vital Signs Temp Pulse Pulse Resp BP Pulse Ox O2 Del Method 07/23/24 08:46 Nasal Cannula 07/23/24 07:05 36.5 C 57 L 18 113/71 100 Room Air 07/23/24 04:01 Nasal Cannula 07/23/24 03:46 65 18 99 07/23/24 03:38 36.6 C 56 L 18 143/82 H 100 BiPAP 07/22/24 23:27 58 L 07/22/24 22:44 36.9 C 56 L 18 139/83 99 CPAP O2 Flow Rate 07/23/24 08:46 3 07/23/24 07:05 07/23/24 04:01 3 07/23/24 03:46 2 07/23/24 03:38 07/22/24 23:27 07/22/24 22:44 Laboratory Results Laboratory Results - last 24 hr 07/20/24 07/20/24 07/22/24 17:14 22:00 05:27 WBC RBC Hgb Hct MCV MCH MCHC RDW Std Deviation RDW Coeff of Majo Plt Count MPV Immature Gran % (Auto) Neut % (Auto) Lymph % (Auto) [place] % (Auto) Eos % (Auto) Baso % (Auto) Neut # (Auto) Lymph # (Auto) [place] # (Auto) Eos # (Auto) Baso # (Auto) Immature Gran # (Auto) Absolute Nucleated RBC Nucleated RBC % (auto) Polychromasia PT INR Sodium Potassium Chloride Carbon Dioxide Anion Gap BUN Creatinine Est Cr Clr Drug Dosing Est GFR ( Amer) Est GFR (Non-Af Amer) BUN/Creatinine Ratio Glucose POC Glucose Calcium Magnesium Total Bilirubin AST ALT Alkaline Phosphatase Total Protein Albumin Globulin Albumin/Globulin Ratio Free T4 1.56 Urine Color Urine Appearance Urine pH Ur Specific [place] Urine Protein Urine Glucose (UA) Urine Ketones Urine Blood Urine Nitrite Urine Bilirubin Urine Urobilinogen Ur Leukocyte Esterase Urine WBC (Auto) Urine RBC (Auto) U Hyaline Cast (Auto) U Epithel Cells (Auto) Urine Bacteria (Auto) Hepatitis A IgM Ab NON-REACTIVE Hep Bs Antigen Negative Hep B Core IgM Ab NON-REACTIVE Hepatitis C Antibody Negative 07/22/24 07/22/24 07/22/24 10:55 16:02 19:41 WBC RBC Hgb Hct MCV MCH MCHC RDW Std Deviation RDW Coeff of Majo Plt Count MPV Immature Gran % (Auto) Neut % (Auto) Lymph % (Auto) [place] % (Auto) Eos % (Auto) Baso % (Auto) Neut # (Auto) Lymph # (Auto) [place] # (Auto) Eos # (Auto) Baso # (Auto) Immature Gran # (Auto) Absolute Nucleated RBC Nucleated RBC % (auto) Polychromasia PT INR Sodium Potassium Chloride Carbon Dioxide Anion Gap BUN Creatinine Est Cr Clr Drug Dosing Est GFR ( Amer) Est GFR (Non-Af Amer) BUN/Creatinine Ratio Glucose POC Glucose 159 H 179 H 312 H* Calcium Magnesium Total Bilirubin AST ALT Alkaline Phosphatase Total Protein Albumin Globulin Albumin/Globulin Ratio Free T4 Urine Color Urine Appearance Urine pH Ur Specific [place] Urine Protein Urine Glucose (UA) Urine Ketones Urine Blood Urine Nitrite Urine Bilirubin Urine Urobilinogen Ur Leukocyte Esterase Urine WBC (Auto) Urine RBC (Auto) U Hyaline Cast (Auto) U Epithel Cells (Auto) Urine Bacteria (Auto) Hepatitis A IgM Ab Hep Bs Antigen Hep B Core IgM Ab Hepatitis C Antibody 07/22/24 07/23/24 07/23/24 Unknown 07:07 07:55 WBC 7.34 RBC 3.41 L Hgb 9.4 L Hct 30.2 L MCV 88.6 MCH 27.6 MCHC 31.1 L RDW Std Deviation 55.5 H RDW Coeff of Majo 17.1 H Plt Count 210 MPV 10.1 Immature Gran % (Auto) 0.3 Neut % (Auto) 54.0 Lymph % (Auto) 36.8 [place] % (Auto) 8.2 Eos % (Auto) 0.4 Baso % (Auto) 0.3 Neut # (Auto) 3.97 Lymph # (Auto) 2.70 [place] # (Auto) 0.60 H Eos # (Auto) 0.03 Baso # (Auto) 0.02 Immature Gran # (Auto) 0.02 Absolute Nucleated RBC 0.20 H Nucleated RBC % (auto) 2.7 Polychromasia 1+ PT 21.0 H INR 2.1 H Sodium 136 Potassium 5.7 H Chloride 106 Carbon Dioxide 25 Anion Gap 5 BUN 32 H Creatinine 1.04 D Est Cr Clr Drug Dosing 72.5 Est GFR ( Amer) 68.1 Est GFR (Non-Af Amer) 58.8 BUN/Creatinine Ratio 30.8 H Glucose 153 H POC Glucose 204 H Calcium 8.3 L Magnesium 2.3 Total Bilirubin 0.4 AST 143 H ALT 149 H Alkaline Phosphatase 262 H Total Protein 6.4 Albumin 3.3 L Globulin 3.1 Albumin/Globulin Ratio 1.1 Free T4 Urine Color Dark Yellow Urine Appearance Cloudy A Urine pH 5.5 Ur Specific [place] 1.023 Urine Protein 2+ H Urine Glucose (UA) Negative Urine Ketones Negative Urine Blood 3+ H Urine Nitrite Negative Urine Bilirubin Negative Urine Urobilinogen Negative Ur Leukocyte Esterase 1+ H Urine WBC (Auto) 6-10 H Urine RBC (Auto) >20 H U Hyaline Cast (Auto) 11-20 H U Epithel Cells (Auto) 0-2 Urine Bacteria (Auto) 2+ H Hepatitis A IgM Ab Hep Bs Antigen Hep B Core IgM Ab Hepatitis C Antibody PG Care Time/CCT Total # of Minutes Spent Total Time Spent with Patient: Total time spent is greater than 50% in coordination of care (as documented) at patient's floor/unit and/or counseling patient: Coding Level of Care Code 25032 SUB INP/OBS CARE 3/50MIN Diagnoses JASON (acute kidney injury) N17.9 Hyperkalemia E87.5 Acute systolic CHF (congestive heart failure) I50.21 Status post mitral valve replacement with metallic valve Z95.4 Essential hypertension I10 Hypertension type: essential hypertension (5) Hypertension Hypertension type: essential hypertension Qualified Code(s): I10 - Essential (primary) hypertension
[2024-07-23] MEDS: INSULIN ASPART PER UNIT CHARGE SC PRN (10:42)
[2024-07-23] MEDS: ENOXAPARIN INJ 120 MG/0.8 ML SYR SQ SCH (10:53)
[2024-07-23] MEDS: SODIUM ZIRCONIUM CYCLOSILICATE 10 GM PACKET PO SCH (13:13)
--- NOTE | 2024-07-23 13:39 | Cardiology Progress Note ---
Date of Service July 23, 2024 Assessment & Plan (1) Acute systolic CHF (congestive heart failure): (2) Status post mitral valve replacement with metallic valve: (3) Atrial flutter: (4) Cardiomyopathy: (5) Dizziness: (6) Junctional tachycardia: Plan 1. Acute on chronic systolic heart failure. Severely reduced LV systolic function. Today her breathing is much improved. Lung examination is benign. She seems euvolemic. Will continue to monitor her volume status. No empiric diuretic. 2. Cardiomyopathy: She has severely reduced LV systolic function. Possibly tachycardia mediated. Etiology truly unclear. Not likely ischemic. Will continue her on her current dose of metoprolol succinate. When the opportunity arises we will try adding Entresto and Jardiance. Not a great candidate for spironolactone given her hyperkalemia. Hopefully with some time and controlled ventricular rates we will see some improvement in function. 3. Atrial flutter: This appeared to be the presenting rhythm. Possibly the etiology for her LV decompensation no recurrence. 4. Accelerated junctional rhythm: This appears to be the current rhythm. She was ambulatory today. However, it is unclear if she had a competing sinus rhythm. No overt symptoms associated with the arrhythmia. Heart rates are adequate. Perhaps exacerbated by amiodarone and metoprolol. However, I think it is important maintain her normal heart rates in sinus rhythm while we observe her ventricular function over the next several weeks. I do not think there is a pressing need for a pacemaker in the absence of symptoms. Hopefully as she becomes more active will see evidence of some sinus node function and can better assess overall conduction. 5. Mechanical mitral valve: This appears to be functioning normally on echocardiography performed today. Goal INR will be 3.0. Patient subtherapeutic today and restarted on heparin. 6. Dizziness: Not a complaint today. Admission and Anticipated Discharge Date Admission Date: July 20, 2024 Subjective This afternoon the patient claimed to be feeling better. She states that her breathing is improved since yesterday. No pain. She was able to ambulate a short distance with her walker earlier today. She did not report dizziness or limiting dyspnea. Review of Systems Review of Systems: Per HPI Physical Exam Physical Exam: She is alert and oriented x3. Mood affect appear normal. She answered all questions appropriately. Using CPAP HEENT: Sclerae are anicteric. Pupils are equal and reactive to light and accommodation. Extraocular movements were intact. Neuro: Cranial nerves intact Lungs: Some increased work of breathing. Some expiratory wheezing. Occasional crackle primarily at the left base. Cardiac: The rhythm was regular. Mechanical S1. Normal S2. Soft diastolic murmur. The PMI was not markedly displaced on palpation. Abdomen: The abdomen was soft and nontender. Extremities: Patient has bilateral radial pulses that are equal in intensity. There is no evidence cyanosis or clubbing. There was no evidence of significant peripheral edema bilaterally. Skin: There are no rashes noted on examination today. Results & Data Vital Signs (Past 12 Hours) Vital Signs Temp Pulse Pulse Resp BP Pulse Ox O2 Del Method 07/23/24 11:21 60 07/23/24 11:11 36.2 C L 59 L 18 143/82 H 99 Nasal Cannula 07/23/24 08:46 Nasal Cannula 07/23/24 07:05 36.5 C 57 L 18 113/71 100 Room Air 07/23/24 04:01 Nasal Cannula 07/23/24 03:46 65 18 99 07/23/24 03:38 36.6 C 56 L 18 143/82 H 100 BiPAP O2 Flow Rate 07/23/24 11:21 07/23/24 11:11 2 07/23/24 08:46 3 07/23/24 07:05 07/23/24 04:01 3 07/23/24 03:46 2 07/23/24 03:38 Laboratory Results Abnormal Lab Results 07/20/24 07/22/24 07/22/24 17:14 16:02 19:41 WBC RBC Hgb Hct MCV MCH MCHC RDW Std Deviation RDW Coeff of Majo Plt Count MPV Immature Gran % (Auto) Neut % (Auto) Lymph % (Auto) [place] % (Auto) Eos % (Auto) Baso % (Auto) Neut # (Auto) Lymph # (Auto) [place] # (Auto) Eos # (Auto) Baso # (Auto) Immature Gran # (Auto) Absolute Nucleated RBC Nucleated RBC % (auto) Polychromasia PT INR Sodium Potassium Chloride Carbon Dioxide Anion Gap BUN Creatinine Est Cr Clr Drug Dosing Est GFR ( Amer) Est GFR (Non-Af Amer) BUN/Creatinine Ratio Glucose POC Glucose 179 H 312 H* Calcium Magnesium Total Bilirubin AST ALT Alkaline Phosphatase Total Protein Albumin Globulin Albumin/Globulin Ratio Urine Color Urine Appearance Urine pH Ur Specific [place] Urine Protein Urine Glucose (UA) Urine Ketones Urine Blood Urine Nitrite Urine Bilirubin Urine Urobilinogen Ur Leukocyte Esterase Urine WBC (Auto) Urine RBC (Auto) U Hyaline Cast (Auto) U Epithel Cells (Auto) Urine Bacteria (Auto) Hepatitis A IgM Ab NON-REACTIVE Hep B Core IgM Ab NON-REACTIVE 07/22/24 07/23/24 07/23/24 Unknown 07:07 07:55 WBC 7.34 RBC 3.41 L Hgb 9.4 L Hct 30.2 L MCV 88.6 MCH 27.6 MCHC 31.1 L RDW Std Deviation 55.5 H RDW Coeff of Majo 17.1 H Plt Count 210 MPV 10.1 Immature Gran % (Auto) 0.3 Neut % (Auto) 54.0 Lymph % (Auto) 36.8 [place] % (Auto) 8.2 Eos % (Auto) 0.4 Baso % (Auto) 0.3 Neut # (Auto) 3.97 Lymph # (Auto) 2.70 [place] # (Auto) 0.60 H Eos # (Auto) 0.03 Baso # (Auto) 0.02 Immature Gran # (Auto) 0.02 Absolute Nucleated RBC 0.20 H Nucleated RBC % (auto) 2.7 Polychromasia 1+ PT 21.0 H INR 2.1 H Sodium 136 Potassium 5.7 H Chloride 106 Carbon Dioxide 25 Anion Gap 5 BUN 32 H Creatinine 1.04 D Est Cr Clr Drug Dosing 72.5 Est GFR ( Amer) 68.1 Est GFR (Non-Af Amer) 58.8 BUN/Creatinine Ratio 30.8 H Glucose 153 H POC Glucose 204 H Calcium 8.3 L Magnesium 2.3 Total Bilirubin 0.4 AST 143 H ALT 149 H Alkaline Phosphatase 262 H Total Protein 6.4 Albumin 3.3 L Globulin 3.1 Albumin/Globulin Ratio 1.1 Urine Color Dark Yellow Urine Appearance Cloudy A Urine pH 5.5 Ur Specific [place] 1.023 Urine Protein 2+ H Urine Glucose (UA) Negative Urine Ketones Negative Urine Blood 3+ H Urine Nitrite Negative Urine Bilirubin Negative Urine Urobilinogen Negative Ur Leukocyte Esterase 1+ H Urine WBC (Auto) 6-10 H Urine RBC (Auto) >20 H U Hyaline Cast (Auto) 11-20 H U Epithel Cells (Auto) 0-2 Urine Bacteria (Auto) 2+ H Hepatitis A IgM Ab Hep B Core IgM Ab 07/23/24 07/23/24 10:03 11:36 WBC RBC Hgb Hct MCV MCH MCHC RDW Std Deviation RDW Coeff of Majo Plt Count MPV Immature Gran % (Auto) Neut % (Auto) Lymph % (Auto) [place] % (Auto) Eos % (Auto) Baso % (Auto) Neut # (Auto) Lymph # (Auto) [place] # (Auto) Eos # (Auto) Baso # (Auto) Immature Gran # (Auto) Absolute Nucleated RBC Nucleated RBC % (auto) Polychromasia PT INR Sodium Potassium Chloride Carbon Dioxide Anion Gap BUN Creatinine Est Cr Clr Drug Dosing Est GFR ( Amer) Est GFR (Non-Af Amer) BUN/Creatinine Ratio Glucose POC Glucose 254 H 146 H Calcium Magnesium Total Bilirubin AST ALT Alkaline Phosphatase Total Protein Albumin Globulin Albumin/Globulin Ratio Urine Color Urine Appearance Urine pH Ur Specific [place] Urine Protein Urine Glucose (UA) Urine Ketones Urine Blood Urine Nitrite Urine Bilirubin Urine Urobilinogen Ur Leukocyte Esterase Urine WBC (Auto) Urine RBC (Auto) U Hyaline Cast (Auto) U Epithel Cells (Auto) Urine Bacteria (Auto) Hepatitis A IgM Ab Hep B Core IgM Ab PG Care Time/CCT Total # of Minutes Spent Total Time Spent with Patient: Total time spent is greater than 50% in coordination of care (as documented) at patient's floor/unit and/or counseling patient: Coding Level of Care Code 96861 SUB INP/OBS CARE 2/35MIN Diagnoses Acute systolic CHF (congestive heart failure) I50.21 Status post mitral valve replacement with metallic valve Z95.4 Atrial flutter I48.92 Cardiomyopathy I42.9 Dizziness R42 Junctional tachycardia I47.19
[2024-07-23] MEDS: WARFARIN SOD 10 MG TAB PO SCH (15:39)
[2024-07-23] MEDS: cefTRIAXone SODIUM 2,000 MG/50 ML BAG IV SCH (15:42)
[2024-07-23] MEDS ORDERED: WARFARIN SOD 10 MG TAB PO SCH (16:00)
--- NOTE | 2024-07-23 17:33 | Hospitalist Progress Note ---
Date of Service July 23, 2024 Assessment & Plan (1) Atrial flutter: (2) Acute systolic CHF (congestive heart failure): (3) Status post mitral valve replacement with metallic valve: (4) Elevated LFTs: (5) COPD (chronic obstructive pulmonary disease): (6) History of TIA (transient ischemic attack): (7) Type 2 diabetes mellitus with obesity: (8) Chronic anticoagulation: (9) Obstructive sleep apnea on CPAP: (10) History of tobacco abuse: Plan 58-year-old female with past medical history of CHF, coronary artery disease hypertension, chronic pain syndrome, TIA, type 2 diabetes mellitus, history of mitral valve replacement 2 years ago on anticoagulation with warfarin, tobacco use disorder, COPD who presents to [facility] ED via EMS on 07/20/2024 due to complaints of chest pain and shortness of breath for the past 4 days. Patient was found to be in atrial flutter and had a chest x-ray which showed cardiomegaly with pulmonary vascular congestion. ED spoke with cardiology and patient was started on amiodarone drip. #Atrial flutter #Acute systolic congestive heart failure, EF of 15% #Coronary artery disease #Mechanical mitral valve on anticoagulation with warfarin # Moderate tricuspid regurgitation #Essential hypertension #Hyperlipidemia Cardiology is following the patient TSH is 0.018, free T4 is 1.56: Doubt of hyperthyroidism and probably TSH suppressed in setting of acute illness: Will need repeat TSH with free T4 to be repeated outpatient in 4 to 6 weeks time as outpatient through PCP She was initially on amiodarone infusion which has been switched to amiodarone 200 mg p.o. twice daily She is currently in sinus rhythm with occasional junctional rhythm 2D echo from 07/21/2024 showed EF of 15 to 20% with mild concentric left ventricular hypertrophy, severe global hypokinesis of the left ventricle with severe tricuspid regurgitation. Cardiology was concerned the patient may have a thrombus on her mechanical mitral valve Patient had a GEORGETTE on 07/22/2024 which showed left ventricular systolic function is severely reduced, the left atrium is severely dilated, there is a mechanical mitral valve, normal mechanical valve function without evidence of thrombus. There is moderate tricuspid regurgitation. I/O monitoring Daily weights Hold losartan for now in light of hyperkalemia Continue aspirin Hold statin in light of elevated LFTs Continue Toprol-XL 25 mg p.o. daily Cardiology saw the patient in follow-up, at this point recommended no empiric diuretic as patient is euvolemic. With regards to her cardiomyopathy with severely reduced left ventricular systolic function, cardiology thinks this could be possibly tachycardia mediated although etiology is truly unclear at this point and not likely ischemic. She is not a good candidate for spironolactone/VINICIUS/ARB at present due to h yperkalemia Cardiology thinks possibly atrial flutter may be etiology for her LV decompensation. I spoke with refuse and recycling worker Dr. Dominguez via secure chat: Will start patient on Lovenox subcutaneous twice daily therapeutic dose until INR is greater than 2.5. Current INR is 2.1. Will dose warfarin 15 mg today and monitor INR #History of TIA # Acute on chronic left-sided weakness #Status post L3/S1 spinal decompression and fusion by Dr. Cheney in November 2023 CT of the head showed no evidence of acute intracranial pathology CT of the cervical spine showed critical spinal canal stenosis at C4-C5 and C5- C6 CT of the L-spine shows status post decompression, interbody and posterior fusion of L3-S1. There is epidural fluid collection extending to the subcutaneous fat. MRI of the brain showed possibility of tiny acute to subacute lacunar infarct versus artifact. I spoke with neurologist Dr. Perry regarding MRI and patient's clinical findings which do not match MRI report: Neurology reviewed the report and scans and do not feel this is a new infarct and have recommended patient follow-up with Dr. Helms from neurology as outpatient on discharge Carotid Doppler showed no sonographic evidence of hemodynamically significant stenosis in the right or left carotid arterial system MRI of the C-spine does not show acute fracture, there is multilevel spondylosis and possible ligamentous injury. MRI of the lumbar spine showed no evidence of acute lumbar spine pathology. #Abnormal LFTs #Hepatomegaly with fatty liver Hold statin for now Ultrasound of the abdomen shows hepatomegaly with fatty liver LFTs are slowly improving Hepatitis screen is negative Monitor LFTs # JASON # Hyperkalemia Nephrology following the patient Hold losartan Renal function is improved but potassium has gone up Nephrology started on Lokelma today Low potassium diet Renal ultrasound was unremarkable Avoid nephrotoxic agents including NSAIDs Await nephrology consult and recommendations #Suspected UTI Awaiting urine culture Continue IV ceftriaxone DC Thompson catheter Follow-up urine culture report #COPD #Tobacco use disorder Continue Florenceo Mundo Patient is not currently in COPD exacerbation Smoking cessation counseling provided Patient declined nicotine replacement patch #Type 2 diabetes mellitus #Obesity with BMI of 36.6 A1c 7.1 Lifestyle counseling regarding diet, exercise and weight loss provided Pharmacy on board for glycemic management CODE STATUS: Full code DVT prophylaxis: Patient on Lovenox and warfarin PT/OT recommended home with home health services Discharge planning likely in the next 24 to 48 hours based on cardiology and nephrology recommendations. She will likely need to go home with subcutaneous Lovenox injections until INR improves and is greater than 2.5 Care plan discussed with patient, nursing staff Admission and Anticipated Discharge Date Admission Date: July 20, 2024 Subjective Patient seen and examined on 07/23/2024 at 10 AM Reports feeling much better today, denies any chest pain or shortness of breath Oxygen requirements are improving She is tolerating oral diet without any issues She denies any bleeding She denies any fever or chills Labs and radiology reviewed Review of Systems Review of Systems: As per HPI Physical Exam Physical Exam: General: No acute distress Psych: Awake and alert HEENT: Anicteric sclera, moist oral mucosa CVS: Regular rate and rhythm, mechanical click noted Lungs: Bilateral air entry with decreased breath sounds at bases, no wheezing noted Abdomen: Soft, nontender, no rebound, no guarding Ext: No lower extremity edema, no calf tenderness : Thompson catheter in place Results & Data Results & Data Vital Signs (Past 12 Hours) Vital Signs Temp Pulse Pulse Resp BP Pulse Ox O2 Del Method 07/23/24 15:52 36.6 C 58 L 18 137/82 100 BiPAP 07/23/24 11:21 60 07/23/24 11:11 36.2 C L 59 L 18 143/82 H 99 Nasal Cannula 07/23/24 08:46 Nasal Cannula 07/23/24 07:05 36.5 C 57 L 18 113/71 100 Room Air O2 Flow Rate 07/23/24 15:52 07/23/24 11:21 07/23/24 11:11 2 07/23/24 08:46 3 07/23/24 07:05 Laboratory Results Laboratory Results - last 24 hr 07/20/24 07/22/24 07/23/24 17:14 19:41 07:07 WBC RBC Hgb Hct MCV MCH MCHC RDW Std Deviation RDW Coeff of Majo Plt Count MPV Immature Gran % (Auto) Neut % (Auto) Lymph % (Auto) [place] % (Auto) Eos % (Auto) Baso % (Auto) Neut # (Auto) Lymph # (Auto) [place] # (Auto) Eos # (Auto) Baso # (Auto) Immature Gran # (Auto) Absolute Nucleated RBC Nucleated RBC % (auto) Polychromasia PT INR Sodium Potassium Chloride Carbon Dioxide Anion Gap BUN Creatinine Est Cr Clr Drug Dosing Est GFR ( Amer) Est GFR (Non-Af Amer) BUN/Creatinine Ratio Glucose POC Glucose 312 H* 204 H Calcium Magnesium Total Bilirubin AST ALT Alkaline Phosphatase Total Protein Albumin Globulin Albumin/Globulin Ratio Hepatitis A IgM Ab NON-REACTIVE Hep B Core IgM Ab NON-REACTIVE 07/23/24 07/23/24 07/23/24 07:55 10:03 11:36 WBC 7.34 RBC 3.41 L Hgb 9.4 L Hct 30.2 L MCV 88.6 MCH 27.6 MCHC 31.1 L RDW Std Deviation 55.5 H RDW Coeff of Majo 17.1 H Plt Count 210 MPV 10.1 Immature Gran % (Auto) 0.3 Neut % (Auto) 54.0 Lymph % (Auto) 36.8 [place] % (Auto) 8.2 Eos % (Auto) 0.4 Baso % (Auto) 0.3 Neut # (Auto) 3.97 Lymph # (Auto) 2.70 [place] # (Auto) 0.60 H Eos # (Auto) 0.03 Baso # (Auto) 0.02 Immature Gran # (Auto) 0.02 Absolute Nucleated RBC 0.20 H Nucleated RBC % (auto) 2.7 Polychromasia 1+ PT 21.0 H INR 2.1 H Sodium 136 Potassium 5.7 H Chloride 106 Carbon Dioxide 25 Anion Gap 5 BUN 32 H Creatinine 1.04 D Est Cr Clr Drug Dosing 72.5 Est GFR ( Amer) 68.1 Est GFR (Non-Af Amer) 58.8 BUN/Creatinine Ratio 30.8 H Glucose 153 H POC Glucose 254 H 146 H Calcium 8.3 L Magnesium 2.3 Total Bilirubin 0.4 AST 143 H ALT 149 H Alkaline Phosphatase 262 H Total Protein 6.4 Albumin 3.3 L Globulin 3.1 Albumin/Globulin Ratio 1.1 Hepatitis A IgM Ab Hep B Core IgM Ab 07/23/24 07/23/24 14:57 16:02 WBC RBC Hgb Hct MCV MCH MCHC RDW Std Deviation RDW Coeff of Majo Plt Count MPV Immature Gran % (Auto) Neut % (Auto) Lymph % (Auto) [place] % (Auto) Eos % (Auto) Baso % (Auto) Neut # (Auto) Lymph # (Auto) [place] # (Auto) Eos # (Auto) Baso # (Auto) Immature Gran # (Auto) Absolute Nucleated RBC Nucleated RBC % (auto) Polychromasia PT INR Sodium Potassium 4.6 Chloride Carbon Dioxide Anion Gap BUN Creatinine Est Cr Clr Drug Dosing Est GFR ( Amer) Est GFR (Non-Af Amer) BUN/Creatinine Ratio Glucose POC Glucose 120 H Calcium Magnesium Total Bilirubin AST ALT Alkaline Phosphatase Total Protein Albumin Globulin Albumin/Globulin Ratio Hepatitis A IgM Ab Hep B Core IgM Ab Diagnostic Findings Liver Ultrasound 07/22/24 15:52 Exam(s): US LIVER EXAM: US Abdomen Limited CLINICAL HISTORY: Rising liver function tests. TECHNIQUE: Real-time ultrasound of the abdomen with image documentation. COMPARISON: Renal ultrasound 07/22/2024 FINDINGS: Liver: The liver measures 19.8 cm. Coarse echogenicity of the liver may relate to fatty infiltration and/or hepatocellular dysfunction. Common bile duct: The common bile duct is normal measuring 0.3 cm. Pancreas: The pancreatic head and body are within normal limits. The tail is not visualized due to overlying bowel gas. IMPRESSION: 1. Nonspecific hepatomegaly. 2. Coarse echogenicity of the liver may relate to fatty infiltration and/or hepatocellular dysfunction. Electronically signed by: Marina Valle MD 07/23/24 07:16 AM PG Care Time/CCT Total # of Minutes Spent Total Time Spent with Patient: Total time spent is greater than 50% in coordination of care (as documented) at patient's floor/unit and/or counseling patient: Coding Level of Care Code 52637 SUB INP/OBS CARE 3/50MIN Diagnoses Atrial flutter I48.92 Acute systolic CHF (congestive heart failure) I50.21 Status post mitral valve replacement with metallic valve Z95.4 Elevated LFTs R79.89 COPD (chronic obstructive pulmonary disease) J44.9 History of TIA (transient ischemic attack) Z86.73 Type 2 diabetes mellitus with obesity E11.69; E66.9 Chronic anticoagulation Z79.01 Obstructive sleep apnea on CPAP G47.33; Z99.89 History of tobacco abuse Z87.891
[2024-07-23] MEDS: LORazepam 2 MG/1 ML VIAL IV STA (22:22)
[2024-07-24 08:23] LABS: Basophils # (auto) 0.01 K/uL (0.00-0.20); Basophils % (auto) 0.2 %; Eosinophils # (auto) 0.05 K/uL (0.00-0.50); Eosinophils % (auto) 0.8 %; Hematocrit (blood only) 32.1 % (37.0-47.0); Hemoglobin 9.4 g/dl (12.0-16.0); Immature Granulocytes # (auto) 0.02 K/uL (0.01-0.20); Immature Granulocytes % (auto) 0.3 %; Lymphocytes # (auto) 2.62 K/uL (1.20-3.40); Lymphocytes % (auto) 40.9 %; Mean Corpuscular Hemoglobin 26.5 pg (25.0-34.0); Mean Corpuscular Hgb Conc 29.3 g/dL (32.0-36.0); Mean Corpuscular Volume 90.4 fL (80.0-100.0); Mean Platelet Volume 10.2 fL (9.4-12.4); Monocytes # (auto) 0.51 K/uL (0.11-0.59); Neutrophils # (auto) 3.19 K/uL (1.40-6.50); Neutrophils % (auto) 49.8 %; Nucleated RBC # (auto) 0.11 K/uL (0.00-0.12); Nucleated RBC % (auto) 1.7 %; Platelet Count 201 K/uL (130-400); RDW Coefficient of Variation 16.7 % (11.5-14.5); RDW Standard Deviation 55.3 fL (36.4-46.3); Red Blood Count 3.55 M/uL (4.20-5.40)
[2024-07-24] MEDS: LANTUS PER UNIT CHARGE SC SCH (08:37)
[2024-07-24 08:39] LABS: Albumin Level 3.2 gm/dl (3.4-5.0); BUN Creatinine Ratio 27.3 (10-20); Bilirubin,Total 0.4 mg/dl (0.2-1.0); Calcium 8.6 mg/dl (8.6-10.3); Creatinine Clr Calc Pharmacy 85.6 ml/min; Est GFR (African American) 83.4 ml/min; Est GFR (Non-African American) 71.9 ml/min; Globulin 3.2 gm/dl (2.5-4.0); Magnesium 2.1 mg/dl (1.7-2.4); Potassium 4.7 mmol/L (3.5-5.1); Total Protein 6.4 gm/dl (6.0-8.3)
[2024-07-24 08:46] LABS: INR 2.7 (0.9-1.1); Prothrombin Time 27.2 Seconds (9.0-12.0)
--- NOTE | 2024-07-24 09:33 | Pharmacy Report ---
Pharmacy Glycemic Short Note 2 - Date of Service July 24, 2024 - Glycemic Short BSG Results (Last 24 hours): 07/23/24 07/23/24 07/23/24 10:03 11:36 16:02 Glucose POC Glucose 254 H 146 H 120 H 07/23/24 07/24/24 07/24/24 20:22 07:18 08:03 Glucose 143 H POC Glucose 143 H 98 OUTPATIENT ANTIDIABETIC REGIMEN: * metformin 1000 mg PO BID * dulaglutide 4.5 mg SQ q7d (Fridays) * A1c = 6.9% ASSESSMENT: 07/24/24: * Blood sugars reasonably well-controlled yesterday, trending down throughout the day * Received 30 units of insulin (10 units of basal and 20 units of prandial/correctional bolus) * Per RN, patient has been drinking soda and did eat ice cream yesterday morning * prn Novolog order added to cover snacks * Fasting blood sugar of 98 mg/dL this morning, will slightly decrease basal today 07/22 * Blood sugars at goal today, was NPO this morning, but then ordered diet. * Will give daily Lantus dose and continue to titrate to goal blood sugar. * Pt remains on heparin drip. 07/21 * Deb is a 58 yo T2DM admitted with increased shortness of breath over the past few days. Started on amiodarone infusion for A.flutter and now converted to oral. Also on heparin IV infusion. Good outpatient glycemic control - A1c 6.9%. * Persistent hyperglycemia despite initiation of short acting insulin. * Will tighten Novolog CF and CR. Add conservative dose of Lantus per patient NPO at midnight. * During past admission, patient required 25-30 units of Lantus per day while on high dose IV steroids. PLAN FOR INPATIENT GLYCEMIC CONTROL: * Hold outpatient diabetes medications * Basal insulin * Lantus 8 units SQ daily * Bolus insulin * NovoLog per scale ACHS or Q6hrs while NPO + prn order to cover snacks (carb ratio only, 1 unit per 8 grams CHO consumed) * Goal Range: Low 110 mg/dL - High 160 mg/dL * Correction Factor: 30 mg/dL/unit * Nutritional / Prandial insulin per carb ratio of 1 unit per 8 grams CHO consumed
--- NOTE | 2024-07-24 13:28 | Hospitalist Progress Note ---
Date of Service July 24, 2024 Assessment & Plan (1) Atrial flutter: Plan: presented in a.flutter with RVR on 07/20 converted to accelerated junctional rhythm on 07/21 seen by cardiology, placed on amiodarone 200mg BID continued on metoprolol succinate 25mg daily remains on warfarin with INR of 2.7 today appreciate cardiology input thus far pacemaker not indicated (2) Junctional tachycardia: Plan: cardiology managing see #1 above remains hemodynamically stable despite this rhythm (3) Acute systolic CHF (congestive heart failure): Plan: EF 15-20% with grade 2 diastolic dysfunction prior echo 03/2024 with EF 55-60% new-onset systolic CHF may be 2nd to tachy-arrhythmia can't exclude ischemia but unlikely appreciate cardiology input cont meto succ 25mg daily resume lasix 40mg daily - this may need adjustment depending on clinical status pt states dry weight is 215#, but her weight has been highly variable over the last 6-9 months making her dry weight uncertain to add jardiance 10mg tomorrow, then ultimately Entresto (4) Status post mitral valve replacement with metallic valve: Plan: INR goal 2.5 to 3.5 INR today 2.7 remains on lovenox 1mg/kg BID + her usual warfarin schedule of 10mg daily except 15mg leave warfarin dosing as is leave lovenox 1 more day if INR on 07/25/24 is 2.5 to 3.5 stop lovenox of note - [facility] and NO [facility]bus (5) Elevated LFTs: Plan: suspect 2nd to hepatic congestion from her severe systolic CHF LFTs were high upon admission LFTs should improve with diuresis recheck LFTs am need to watch LFTs carefully with addition of amiodarone can't exclude lipitor causing LFTs elevation but less likely to be safe keep lipitor on hold for now (6) COPD (chronic obstructive pulmonary disease): Plan: prior PFTs not c/w COPD, but she carries this diagnosis, and is on bronchodilators & ICS/LABA at home cont Breo add back albuterol/atroven qid (does this at home) may be contributing to her dyspnea in addition to #2 (7) History of TIA (transient ischemic attack): Plan: noted cont warfarin and asa for secondary prevention (8) Type 2 diabetes mellitus with obesity: Plan: a1c 7.1% cont lantus cont novolog BSGs ac/hs (9) Chronic anticoagulation: Plan: warfarin for a.flutter but particularly her mechanical mitral valve INR goal 2.5 to 3.5 see above (10) Obstructive sleep apnea on CPAP: Plan: 12cm H20 currently has blended O2 into the CPAP on night prior to discharge would get overnight oximetry study to see if blended O2 is needed for home (currently NOT on O2 at home) (11) History of tobacco abuse: Plan: noted (12) Abnormal TSH: Plan: TSH 0.018 FT4 wnl sick euthyroid more than likely but FT4 is top-normal with newly added amiodarone will need to follow this as outpatient recheck in 1 month (13) Cardiomyopathy: Plan: tachy-arrhythmia induced? EF March 2024 - 55-60% EF this admission - 15-20% see above appreciate cardiology assistance (14) JASON (acute kidney injury): Plan: peak Cr 1.77 now Cr <1 appreciate nephrology assistance resume lasix today JASON likely on the basis of cardiorenal syndrome (15) Hyperkalemia: Plan: 2nd JASON resolved remains on Lokelma give such 1 more day and if K level tomorrow is wnl would discontinue (16) Tricuspid valve regurgitation: (17) History of pulmonary embolism: Plan: noted on warfarin chronically follows with [facility] (18) Cervical spine pain: Plan: MRI c-spine this admission -- IMPRESSION: 1. There is no MRI evidence of acute fracture. 2. There is nonspecific interspinous edema at C2-C3, C6-C7, and C7-T1. This could potentially be seen in the setting of ligamentous injury. Clinical correlation will be essential. 3. Multilevel spondylosis as above. See discussion for detailed level by level analysis. 4. The cervical cord is normal in morphology and signal intensity with no abnormal postcontrast enhancement identified. In light of ongoing pain will ask Dr Cheney, her spine surgeon, to see her in consult. Add lidoderm patches. Change oxy to q6h prn from BID dosing. (19) UTI (urinary tract infection): Plan: received 3 doses of rocephin culture grew lactobacillus + gardnerella will stop abx (20) Left-sided weakness: Plan: 07/20/24 PM --> episode of severe neck pain, radiating into the left arm, with associated cervical paraspinal and lumbar muscle spasm, followed by weakness of the left arm and leg. CT of the head was obtained, stroke alert called, Leida telestroke involved with her case. 07/20/24 event NOT felt to be TIA or acute stroke. MRI brain negative for acute stroke that would account for her symptoms. Suspect left arm weakness is due to severe c-spine disease -- see #18 above. f/u Dr Helms - [facility] neuro - post-discharge. of note --- patient is s/p L3/S1 spinal decompression and fusion by Dr. Cheney in November 2023 Plan DVT prophylaxis: Patient on Lovenox and warfarin; likely can d/c lovenox on 07/25/24 PT/OT recommended home with home health services after discharge Admission and Anticipated Discharge Date Admission Date: July 20, 2024 Subjective pt's main complaint is that of dyspnea it is at rest as well as with exertion she has baseline KLINE, but current shortness of breath is worse than baseline some cough no sputum she has posterior neck pain x 1 month radiates to the left shoulder and then down the proximal arm pain ends about the level of the left elbow she does have paresthesias that travel down the arm to the left hand has chronic low back pain - takes oxycodone prn she is NOT on supplemental NC o2 at home while here, however, she is requiring such blended into her night-time CPAP her CPAP is 12cm H20 tele - accelerated junctional rhythm; no a.flutter Review of Systems Review of Systems: cv - chest is heavy intermittently; +orthopnea; +edema pulm - ongoing dyspnea GI - no pain or N/V Physical Exam Physical Exam: gen - obese, mildly dyspneic, but able to speak in full sentences neck - no obvious JVD mouth - MMM heart - RRR, s1 s2, no obvious murmur; mechanical valve closure sound present lungs - mild wheezes scattered b/l; no rales; mild tachypnea abd - soft NT ND BS+; no HSM; negative hepatojugular reflex ext - trace edema b/l, pulses 2+ b/l psych - a/o x 3 Results & Data Results & Data Vital Signs (Past 12 Hours) Vital Signs Temp Pulse Pulse Resp BP Pulse Ox O2 Del Method 07/24/24 11:05 53 L 18 165/82 H 100 CPAP 07/24/24 09:51 51 L 07/24/24 07:14 36.5 C 60 18 160/88 H 97 Room Air 07/24/24 03:33 36.6 C 52 L 18 159/85 H 100 BiPAP 07/24/24 02:15 62 17 99 O2 Flow Rate 07/24/24 11:05 07/24/24 09:51 07/24/24 07:14 07/24/24 03:33 07/24/24 02:15 2 Laboratory Results Laboratory Results - last 24 hr 07/23/24 07/24/24 07/24/24 20:22 07:18 08:03 WBC 6.40 RBC 3.55 L Hgb 9.4 L Hct 32.1 L MCV 90.4 MCH 26.5 MCHC 29.3 L RDW Std Deviation 55.3 H RDW Coeff of Majo 16.7 H Plt Count 201 MPV 10.2 Immature Gran % (Auto) 0.3 Neut % (Auto) 49.8 Lymph % (Auto) 40.9 [place] % (Auto) 8.0 Eos % (Auto) 0.8 Baso % (Auto) 0.2 Neut # (Auto) 3.19 Lymph # (Auto) 2.62 [place] # (Auto) 0.51 Eos # (Auto) 0.05 Baso # (Auto) 0.01 Immature Gran # (Auto) 0.02 Absolute Nucleated RBC 0.11 Nucleated RBC % (auto) 1.7 PT 27.2 H INR 2.7 H Sodium 139 Potassium 4.7 Chloride 107 Carbon Dioxide 27 Anion Gap 5 BUN 24 H Creatinine 0.88 Est Cr Clr Drug Dosing 85.6 Est GFR ( Amer) 83.4 Est GFR (Non-Af Amer) 71.9 BUN/Creatinine Ratio 27.3 H Glucose 143 H POC Glucose 143 H 98 Calcium 8.6 Magnesium 2.1 Total Bilirubin 0.4 AST 98 H ALT 136 H Alkaline Phosphatase 267 H Total Protein 6.4 Albumin 3.2 L Globulin 3.2 Albumin/Globulin Ratio 1.0 07/24/24 07/24/24 07/24/24 11:04 16:05 19:54 WBC RBC Hgb Hct MCV MCH MCHC RDW Std Deviation RDW Coeff of Majo Plt Count MPV Immature Gran % (Auto) Neut % (Auto) Lymph % (Auto) [place] % (Auto) Eos % (Auto) Baso % (Auto) Neut # (Auto) Lymph # (Auto) [place] # (Auto) Eos # (Auto) Baso # (Auto) Immature Gran # (Auto) Absolute Nucleated RBC Nucleated RBC % (auto) PT INR Sodium Potassium Chloride Carbon Dioxide Anion Gap BUN Creatinine Est Cr Clr Drug Dosing Est GFR ( Amer) Est GFR (Non-Af Amer) BUN/Creatinine Ratio Glucose POC Glucose 125 H 115 H 128 H Calcium Magnesium Total Bilirubin AST ALT Alkaline Phosphatase Total Protein Albumin Globulin Albumin/Globulin Ratio PG Care Time/CCT Total # of Minutes Spent Total Time Spent with Patient: Total time spent is greater than 50% in coordination of care (as documented) at patient's floor/unit and/or counseling patient: Coding Level of Care Code 07911 SUB INP/OBS CARE 3/50MIN Diagnoses Atrial flutter I48.92 Junctional tachycardia I47.19 Acute systolic CHF (congestive heart failure) I50.21 Status post mitral valve replacement with metallic valve Z95.4 Elevated LFTs R79.89 COPD (chronic obstructive pulmonary disease) J44.9 History of TIA (transient ischemic attack) Z86.73 Type 2 diabetes mellitus with obesity E11.69; E66.9 Chronic anticoagulation Z79.01 Obstructive sleep apnea on CPAP G47.33; Z99.89 History of tobacco abuse Z87.891 Abnormal TSH R79.89 Cardiomyopathy I42.9 JASON (acute kidney injury) N17.9 Hyperkalemia E87.5 Tricuspid valve regurgitation I07.1 History of pulmonary embolism Z86.711 Cervical spine pain M54.2 UTI (urinary tract infection) N39.0 Left-sided weakness R53.1
[2024-07-24] MEDS: FUROSEMIDE 40 MG TAB PO ONE (14:11)
[2024-07-24] MEDS: LIDOCAINE 5% 1 PATCH TD SCH (14:19)
[2024-07-24] MEDS: oxyCODONE HCL IR 5 MG TAB (IMMEDIATE RELEASE) PO PRN (14:25)
[2024-07-24] MEDS: ALBUT/IPRATROP 3MG/0.5MG NEB 3 ML VIAL NEB SCH (15:13)
--- NOTE | 2024-07-24 16:37 | Nephrology Progress Note ---
Date of Service July 24, 2024 Assessment & Plan (1) JASON (acute kidney injury): Plan: Non-oliguric. JASON attributed to hemodynamic rise in creatinine in the setting of cardiorenal syndrome. Creatinine improved. Potassium also improved. Diuretics to encourage a slightly negative fluid balance. Reasonable to start SGLT2i therapy now. Document strict I/O's. Repeat metabolic profile tomorrow AM. Urine microscopy with hyaline but no granular casts. (2) Hyperkalemia: Plan: Improved. Continue low potassium diet. Diuretics PRN to encourage urine output. (3) Acute systolic CHF (congestive heart failure): Plan: Plan of care discussed with Dr. Hall and Dr. Dominguez. (4) Status post mitral valve replacement with metallic valve: (5) Hypertension: Plan: BP acceptable. Admission and Anticipated Discharge Date Admission Date: July 20, 2024 Subjective No acute events overnight. Deb reported dyspnea and chest heaviness during our evaluation. Symptoms are similar to the symptoms which brought her to the hospital. She denies palpitations. I discussed the plan of care with Dr. Dominguez and Dr. Hall. Review of Systems Review of Systems: All systems reviewed & are unremarkable except as noted in HPI & below Physical Exam Constitutional: well developed; no acute distress Eyes: + anicteric sclerae Neck: normal visual inspection Respiratory: normal respiratory effort Auscultation: + wheezes Cardiovascular: Rate/Rhythm: + bradycardic Heart Sounds: normal S1, normal S2 and + murmur Extremities: + edema (trace) Musculoskeletal: Extremities: no cyanosis and no clubbing Skin: normal turgor; no jaundice Neurologic: Motor/Sensory: no tremor and no asterixis Psychiatric: Orientation: alert and cooperative Results & Data Vital Signs (Past 12 Hours) Vital Signs Temp Pulse Pulse Resp BP Pulse Ox O2 Del Method 07/24/24 15:14 56 L 18 97 07/24/24 15:14 58 L 20 97 CPAP 07/24/24 14:59 36.5 C 61 18 160/87 H 100 BiPAP 07/24/24 14:06 57 L 07/24/24 11:05 53 L 18 165/82 H 100 CPAP 07/24/24 09:51 51 L 07/24/24 07:14 36.5 C 60 18 160/88 H 97 Room Air FiO2 07/24/24 15:14 21 07/24/24 15:14 21 07/24/24 14:59 07/24/24 14:06 07/24/24 11:05 07/24/24 09:51 07/24/24 07:14 Laboratory Results Laboratory Results - last 24 hr 07/23/24 07/24/24 07/24/24 20:22 07:18 08:03 WBC 6.40 RBC 3.55 L Hgb 9.4 L Hct 32.1 L MCV 90.4 MCH 26.5 MCHC 29.3 L RDW Std Deviation 55.3 H RDW Coeff of Majo 16.7 H Plt Count 201 MPV 10.2 Immature Gran % (Auto) 0.3 Neut % (Auto) 49.8 Lymph % (Auto) 40.9 [place] % (Auto) 8.0 Eos % (Auto) 0.8 Baso % (Auto) 0.2 Neut # (Auto) 3.19 Lymph # (Auto) 2.62 [place] # (Auto) 0.51 Eos # (Auto) 0.05 Baso # (Auto) 0.01 Immature Gran # (Auto) 0.02 Absolute Nucleated RBC 0.11 Nucleated RBC % (auto) 1.7 PT 27.2 H INR 2.7 H Sodium 139 Potassium 4.7 Chloride 107 Carbon Dioxide 27 Anion Gap 5 BUN 24 H Creatinine 0.88 Est Cr Clr Drug Dosing 85.6 Est GFR ( Amer) 83.4 Est GFR (Non-Af Amer) 71.9 BUN/Creatinine Ratio 27.3 H Glucose 143 H POC Glucose 143 H 98 Calcium 8.6 Magnesium 2.1 Total Bilirubin 0.4 AST 98 H ALT 136 H Alkaline Phosphatase 267 H Total Protein 6.4 Albumin 3.2 L Globulin 3.2 Albumin/Globulin Ratio 1.0 07/24/24 07/24/24 11:04 16:05 WBC RBC Hgb Hct MCV MCH MCHC RDW Std Deviation RDW Coeff of Majo Plt Count MPV Immature Gran % (Auto) Neut % (Auto) Lymph % (Auto) [place] % (Auto) Eos % (Auto) Baso % (Auto) Neut # (Auto) Lymph # (Auto) [place] # (Auto) Eos # (Auto) Baso # (Auto) Immature Gran # (Auto) Absolute Nucleated RBC Nucleated RBC % (auto) PT INR Sodium Potassium Chloride Carbon Dioxide Anion Gap BUN Creatinine Est Cr Clr Drug Dosing Est GFR ( Amer) Est GFR (Non-Af Amer) BUN/Creatinine Ratio Glucose POC Glucose 125 H 115 H Calcium Magnesium Total Bilirubin AST ALT Alkaline Phosphatase Total Protein Albumin Globulin Albumin/Globulin Ratio PG Care Time/CCT Total # of Minutes Spent Total Time Spent with Patient: Total time spent is greater than 50% in coordination of care (as documented) at patient's floor/unit and/or counseling patient: Coding Level of Care Code 52395 SUB INP/OBS CARE 3/50MIN Diagnoses JASON (acute kidney injury) N17.9 Hyperkalemia E87.5 Acute systolic CHF (congestive heart failure) I50.21 Status post mitral valve replacement with metallic valve Z95.4 Essential hypertension I10 Hypertension type: essential hypertension (5) Hypertension Hypertension type: essential hypertension Qualified Code(s): I10 - Essential (primary) hypertension
--- NOTE | 2024-07-24 17:48 | Cardiology Progress Note ---
Date of Service July 24, 2024 Assessment & Plan (1) Acute systolic CHF (congestive heart failure): (2) Status post mitral valve replacement with metallic valve: (3) Atrial flutter: (4) Cardiomyopathy: (5) Dizziness: (6) Junctional tachycardia: Plan 1. Acute on chronic systolic heart failure. Severely reduced LV systolic function. Volume status appears reasonable. She did report worsening breathing, lung examination is unremarkable. Renal function improved and we will restart her Lasix 40 mg daily. 2. Cardiomyopathy: She has severely reduced LV systolic function. Possibly tachycardia mediated. Etiology truly unclear. Not likely ischemic. Will continue her on her current dose of metoprolol succinate. Will add Jardiance noted her renal function has improved. Nephrology suggests adding Entresto would also be reasonable. Will consider doing this tomorrow. 3. Atrial flutter: This appeared to be the presenting rhythm. Possibly the etiology for her LV decompensation no recurrence. Now in an accelerated junctional rhythm. 4. Accelerated junctional rhythm: This appears to be the current rhythm. Still no P waves noted on telemetry. I do not think we have a good evaluation of her rhythm when she is active. Hopefully tomorrow will be able to ambulate in the halls and we can see if there is a competing sinus rhythm. No pressing indication for permanent pacemaker. 5. Mechanical mitral valve: This appears to be functioning normally on ech ocardiography performed today. Goal INR will be 3.0. INR 2.7 today.Hopefully will improve slightly tomorrow we can discontinue enoxaparin. 6. Dizziness: Not a complaint today. Admission and Anticipated Discharge Date Admission Date: July 20, 2024 Subjective This evening the patient reported some worsening breathing difficulty today versus yesterday. She reports being ambulatory around room. Some dyspnea and initially some dizziness, the dizziness appeared to have resolved. No sense of palpitation. No chest pain. She continues use of CPAP with supplemental oxygen while in bed. Review of Systems Review of Systems: Per HPI Physical Exam Physical Exam: She is alert and oriented x3. Mood affect appear normal. She answered all questions appropriately. Using CPAP HEENT: Sclerae are anicteric. Pupils are equal and reactive to light and accommodation. Extraocular movements were intact. Neuro: Cranial nerves intact Lungs: Some increased work of breathing. No wheezing. No rales. Lungs clear. Cardiac: The rhythm was regular. Mechanical S1. Normal S2. Soft diastolic murmur. The PMI was not markedly displaced on palpation. Extremities: Patient has bilateral radial pulses that are equal in intensity. There is no evidence cyanosis or clubbing. There was no evidence of significant peripheral edema bilaterally. Skin: There are no rashes noted on examination today. Results & Data Vital Signs (Past 12 Hours) Vital Signs Temp Pulse Pulse Resp BP Pulse Ox O2 Del Method 07/24/24 15:14 56 L 18 97 07/24/24 15:14 58 L 20 97 CPAP 07/24/24 14:59 36.5 C 61 18 160/87 H 100 BiPAP 07/24/24 14:06 57 L 07/24/24 11:05 53 L 18 165/82 H 100 CPAP 07/24/24 09:51 51 L 07/24/24 07:14 36.5 C 60 18 160/88 H 97 Room Air FiO2 07/24/24 15:14 21 07/24/24 15:14 21 07/24/24 14:59 07/24/24 14:06 07/24/24 11:05 07/24/24 09:51 07/24/24 07:14 Laboratory Results Abnormal Lab Results 07/23/24 07/24/24 07/24/24 20:22 07:18 08:03 WBC 6.40 RBC 3.55 L Hgb 9.4 L Hct 32.1 L MCV 90.4 MCH 26.5 MCHC 29.3 L RDW Std Deviation 55.3 H RDW Coeff of Majo 16.7 H Plt Count 201 MPV 10.2 Immature Gran % (Auto) 0.3 Neut % (Auto) 49.8 Lymph % (Auto) 40.9 [place] % (Auto) 8.0 Eos % (Auto) 0.8 Baso % (Auto) 0.2 Neut # (Auto) 3.19 Lymph # (Auto) 2.62 [place] # (Auto) 0.51 Eos # (Auto) 0.05 Baso # (Auto) 0.01 Immature Gran # (Auto) 0.02 Absolute Nucleated RBC 0.11 Nucleated RBC % (auto) 1.7 PT 27.2 H INR 2.7 H Sodium 139 Potassium 4.7 Chloride 107 Carbon Dioxide 27 Anion Gap 5 BUN 24 H Creatinine 0.88 Est Cr Clr Drug Dosing 85.6 Est GFR ( Amer) 83.4 Est GFR (Non-Af Amer) 71.9 BUN/Creatinine Ratio 27.3 H Glucose 143 H POC Glucose 143 H 98 Calcium 8.6 Magnesium 2.1 Total Bilirubin 0.4 AST 98 H ALT 136 H Alkaline Phosphatase 267 H Total Protein 6.4 Albumin 3.2 L Globulin 3.2 Albumin/Globulin Ratio 1.0 07/24/24 07/24/24 11:04 16:05 WBC RBC Hgb Hct MCV MCH MCHC RDW Std Deviation RDW Coeff of Majo Plt Count MPV Immature Gran % (Auto) Neut % (Auto) Lymph % (Auto) [place] % (Auto) Eos % (Auto) Baso % (Auto) Neut # (Auto) Lymph # (Auto) [place] # (Auto) Eos # (Auto) Baso # (Auto) Immature Gran # (Auto) Absolute Nucleated RBC Nucleated RBC % (auto) PT INR Sodium Potassium Chloride Carbon Dioxide Anion Gap BUN Creatinine Est Cr Clr Drug Dosing Est GFR ( Amer) Est GFR (Non-Af Amer) BUN/Creatinine Ratio Glucose POC Glucose 125 H 115 H Calcium Magnesium Total Bilirubin AST ALT Alkaline Phosphatase Total Protein Albumin Globulin Albumin/Globulin Ratio PG Care Time/CCT Total # of Minutes Spent Total Time Spent with Patient: Total time spent is greater than 50% in coordination of care (as documented) at patient's floor/unit and/or counseling patient: Coding Level of Care Code 70916 SUB INP/OBS CARE 2/35MIN Diagnoses Acute systolic CHF (congestive heart failure) I50.21 Status post mitral valve replacement with metallic valve Z95.4 Atrial flutter I48.92 Cardiomyopathy I42.9 Dizziness R42 Junctional tachycardia I47.19
[2024-07-25] MEDS: HYDROmorphone INJ 0.5 MG/0.5 ML SYR IV STA (03:27)
[2024-07-25 06:56] LABS: Albumin Level 3.2 gm/dl (3.4-5.0); BUN Creatinine Ratio 25.6 (10-20); Bilirubin Direct 0.1 mg/dl (0-0.2); Bilirubin,Total 0.4 mg/dl (0.2-1.0); Calcium 8.5 mg/dl (8.6-10.3); Creatinine Clr Calc Pharmacy 90.1 ml/min; Phosphorus 3.1 mg/dl (2.5-4.9); Potassium 4.5 mmol/L (3.5-5.1); Total Protein 6.2 gm/dl (6.0-8.3)
[2024-07-25 07:07] LABS: Prothrombin Time 29.8 Seconds (9.0-12.0)
[2024-07-25] MEDS: FUROSEMIDE 40 MG TAB PO SCH (08:06)
[2024-07-25] MEDS: LANTUS PER UNIT CHARGE SC SCH (08:14)
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
--- NOTE | 2024-07-25 10:45 | Nephrology Progress Note ---
Date of Service July 25, 2024 Assessment & Plan (1) JASON (acute kidney injury): Plan: Hemodynamic rise in creatinine in the setting of cardiorenal syndrome. Creatinine improved and remains stable. Potassium also improved. No additional nephrology recommendations at this time. I will defer continued management to cardiology and the hospitalist serviced. It is reasonable to restart SGLT2i therapy and, if kidney function remains relatively stable, VINICIUS/ARB with close monitoring. Diuretics to encourage a slightly negative fluid balance. I will defer diuretic management to cardiology and the hospitalist service. Document strict I/O's. (2) Acute systolic CHF (congestive heart failure): Plan: Plan of care discussed with Dr. Hall and Dr. Dominguez. Admission and Anticipated Discharge Date Admission Date: July 20, 2024 Subjective No acute events overnight. Deb feels better this AM. She is breathing more comfortably. She denies chest pains or palpitations. She denies shortness of breath. She reports robust urine output following furosemide yesterday. Review of Systems Review of Systems: All systems reviewed & are unremarkable except as noted in HPI & below Physical Exam Constitutional: well developed; no acute distress Eyes: + anicteric sclerae Neck: normal visual inspection and trachea midline Respiratory: normal respiratory effort Auscultation: lungs clear to a uscultation bilaterally and + wheezes (mild) Cardiovascular: Rate/Rhythm: + bradycardic Heart Sounds: normal S1, normal S2 and + murmur Extremities: + edema (trace) Musculoskeletal: Extremities: no cyanosis and no clubbing Skin: normal turgor; no jaundice Neurologic: Motor/Sensory: no tremor and no asterixis Psychiatric: Orientation: alert and cooperative Results & Data Vital Signs (Past 12 Hours) Vital Signs Temp Pulse Pulse Resp BP Pulse Ox O2 Del Method 07/25/24 08:04 36.8 C 60 18 152/86 H 97 Room Air 07/25/24 07:38 60 18 98 Nasal Cannula 07/25/24 07:25 52 L 07/25/24 04:55 61 07/25/24 04:55 CPAP 07/25/24 04:02 57 L 22 97 07/25/24 03:08 36.9 C 54 L 18 131/72 100 CPAP 07/24/24 23:56 36.8 C 57 L 18 126/67 98 CPAP 07/24/24 23:37 59 L 21 98 O2 Flow Rate 07/25/24 08:04 07/25/24 07:38 2 07/25/24 07:25 07/25/24 04:55 07/25/24 04:55 07/25/24 04:02 2 07/25/24 03:08 07/24/24 23:56 07/24/24 23:37 2 Laboratory Results Laboratory Results - last 24 hr 07/24/24 07/24/24 07/24/24 11:04 16:05 19:54 PT INR Sodium Potassium Chloride Carbon Dioxide Anion Gap BUN Creatinine Est Cr Clr Drug Dosing eGFR BUN/Creatinine Ratio Glucose POC Glucose 125 H 115 H 128 H Calcium Phosphorus Total Bilirubin Direct Bilirubin AST ALT Alkaline Phosphatase Total Protein Albumin 07/25/24 07/25/24 06:09 07:24 PT 29.8 H INR 3.0 H Sodium 139 Potassium 4.5 Chloride 108 H Carbon Dioxide 28 Anion Gap 3 BUN 21 Creatinine 0.82 Est Cr Clr Drug Dosing 90.1 eGFR 82.35 BUN/Creatinine Ratio 25.6 H Glucose 84 POC Glucose 119 H Calcium 8.5 L Phosphorus 3.1 Total Bilirubin 0.4 Direct Bilirubin 0.1 AST 57 H ALT 105 H Alkaline Phosphatase 250 H Total Protein 6.2 Albumin 3.2 L PG Care Time/CCT Total # of Minutes Spent Total Time Spent with Patient: Total time spent is greater than 50% in coordination of care (as documented) at patient's floor/unit and/or counseling patient: Coding Level of Care Code 92120 SUB INP/OBS CARE 2/35MIN Diagnoses JASON (acute kidney injury) N17.9 Acute systolic CHF (congestive heart failure) I50.21
[2024-07-25] MEDS ORDERED: WARFARIN SOD 5 MG TAB PO SCH (16:00)
--- NOTE | 2024-07-25 16:12 | Cardiology Progress Note ---
Date of Service July 25, 2024 Assessment & Plan (1) Acute systolic CHF (congestive heart failure): (2) Status post mitral valve replacement with metallic valve: (3) Atrial flutter: (4) Cardiomyopathy: (5) Dizziness: (6) Junctional tachycardia: Plan 1. Acute on chronic systolic heart failure. She seems well compensated. Lung examination unremarkable. No evidence of pulmonary vascular congestion. Continuing on 40 mg of Lasix daily. 2. Cardiomyopathy: She has severely reduced LV systolic function. Possibly tachycardia mediated. Etiology truly unclear. Jardiance added today. Will add Entresto tomorrow. Renal function has been stable. Blood pressure appears adequate. 3. Atrial flutter: This appeared to be the presenting rhythm. Possibly the etiology for her LV decompensation no recurrence. Now in an accelerated junctional rhythm. 4. Accelerated junctional rhythm: This appears to be the current rhythm. Still no P waves noted on telemetry. She has been ambulatory with send elevation in heart rate. Mild this is a Turi situation, I am not sure there is a defined indication for permanent pacemaker. If she were to have symptoms suggestive of bradycardia or there was evidence of significant heart block we would reconsider. 5. Mechanical mitral valve: This appears to be functioning normally. Warfarin now therapeutic. 6. Dizziness: Not a complaint today. Admission and Anticipated Discharge Date Admission Date: July 20, 2024 Subjective This afternoon the patient clearly feeling well. She was using CPAP while in bed, but reported ambulating in the hernandez a couple of times with her walker and no CPAP or oxygen. She reports some mild dyspnea, but not limiting. No dizziness or lightheadedness. No sense of palpitation. Review of Systems Review of Systems: Per HPI Physical Exam Physical Exam: She is alert and oriented x3. Mood affect appear normal. She answered all questions appropriately. Using CPAP HEENT: Sclerae are anicteric. Pupils are equal and reactive to light and accommodation. Extraocular movements were intact. Neuro: Cranial nerves intact Lungs: Some increased work of breathing. No wheezing. No rales. Lungs clear. Cardiac: The rhythm was regular. Mechanical S1. Normal S2. Soft diastolic murmur. The PMI was not markedly displaced on palpation. Extremities: Patient has bilateral radial pulses that are equal in intensity. There is no evidence cyanosis or clubbing. There was no evidence of significant peripheral edema bilaterally. Skin: There are no rashes noted on examination today. Results & Data Vital Signs (Past 12 Hours) Vital Signs Temp Pulse Pulse Resp BP Pulse Ox O2 Del Method 07/25/24 15:52 36.6 C 58 L 19 138/67 97 Room Air 07/25/24 15:13 53 L 22 100 CPAP 07/25/24 15:13 53 L 22 100 07/25/24 15:01 58 L 07/25/24 11:52 60 18 98 Room Air 07/25/24 11:10 37.0 C 64 22 146/79 H 96 Room Air 07/25/24 09:15 Room Air 07/25/24 08:04 36.8 C 60 18 152/86 H 97 Room Air 07/25/24 07:38 60 18 98 Nasal Cannula 07/25/24 07:25 52 L 07/25/24 04:55 61 07/25/24 04:55 CPAP O2 Flow Rate 07/25/24 15:52 07/25/24 15:13 2 07/25/24 15:13 2 07/25/24 15:01 07/25/24 11:52 07/25/24 11:10 07/25/24 09:15 07/25/24 08:04 07/25/24 07:38 2 07/25/24 07:25 07/25/24 04:55 07/25/24 04:55 Laboratory Results Abnormal Lab Results 07/24/24 07/24/24 07/25/24 16:05 19:54 06:09 PT 29.8 H INR 3.0 H Sodium 139 Potassium 4.5 Chloride 108 H Carbon Dioxide 28 Anion Gap 3 BUN 21 Creatinine 0.82 Est Cr Clr Drug Dosing 90.1 eGFR 82.35 BUN/Creatinine Ratio 25.6 H Glucose 84 POC Glucose 115 H 128 H Calcium 8.5 L Phosphorus 3.1 Total Bilirubin 0.4 Direct Bilirubin 0.1 AST 57 H ALT 105 H Alkaline Phosphatase 250 H Total Protein 6.2 Albumin 3.2 L 07/25/24 07/25/24 07/25/24 07:24 11:07 15:57 PT INR Sodium Potassium Chloride Carbon Dioxide Anion Gap BUN Creatinine Est Cr Clr Drug Dosing eGFR BUN/Creatinine Ratio Glucose POC Glucose 119 H 79 137 H Calcium Phosphorus Total Bilirubin Direct Bilirubin AST ALT Alkaline Phosphatase Total Protein Albumin PG Care Time/CCT Total # of Minutes Spent Total Time Spent with Patient: Total time spent is greater than 50% in coordination of care (as documented) at patient's floor/unit and/or counseling patient: Coding Level of Care Code 64954 SUB INP/OBS CARE 235MIN Diagnoses Acute systolic CHF (congestive heart failure) I50.21 Status post mitral valve replacement with metallic valve Z95.4 Atrial flutter I48.92 Cardiomyopathy I42.9 Dizziness R42 Junctional tachycardia I47.19
[2024-07-25] MEDS: WARFARIN SOD 5 MG TAB PO SCH (16:39)
--- NOTE | 2024-07-25 17:45 | Hospitalist Progress Note ---
Date of Service July 25, 2024 Assessment & Plan (1) Atrial flutter: Plan: presented in a.flutter with RVR on 07/20 converted to accelerated junctional rhythm on 07/21 seen by cardiology, placed on amiodarone 200mg BID continued on metoprolol succinate 25mg daily remains on warfarin with INR of 3.0 today appreciate cardiology input thus far pacemaker not indicated May need oxygen at home, will discuss with case managers. Patient be on jardiance and will consider entresto tomorrow. (2) Junctional tachycardia: Plan: cardiology managing see #1 above remains hemodynamically stable despite this rhythm (3) Acute systolic CHF (congestive heart failure): Plan: EF 15-20% with grade 2 diastolic dysfunction prior echo 03/2024 with EF 55-60% new-onset systolic CHF may be 2nd to tachy-arrhythmia can't exclude ischemia but unlikely appreciate cardiology input cont meto succ 25mg daily resume lasix 40mg daily - this may need adjustment depending on clinical status pt states dry weight is 215#, but her weight has been highly variable over the last 6-9 months making her dry weight uncertain to add jardiance 10mg tomorrow, then ultimately Entresto (4) Status post mitral valve replacement with metallic valve: Plan: INR goal 2.5 to 3.5 INR today 2.7 remains on lovenox 1mg/kg BID + her usual warfarin schedule of 10mg daily except 15mg leave warfarin dosing as is leave lovenox 1 more day if INR on 07/25/24 is 2.5 to 3.5 stop lovenox of note - [facility] and NO thrombus (5) Elevated LFTs: Plan: suspect 2nd to hepatic congestion from her severe systolic CHF LFTs were high upon admission LFTs should improve with diuresis recheck LFTs am need to watch LFTs carefully with addition of amiodarone can't exclude lipitor causing LFTs elevation but less likely to be safe keep lipitor on hold for now (6) COPD (chronic obstructive pulmonary disease): Plan: prior PFTs not c/w COPD, but she carries this diagnosis, and is on bronchodilators & ICS/LABA at home cont Breo add back albuterol/atroven qid (does this at home) may be contributing to her dyspnea in addition to #2 (7) History of TIA (transient ischemic attack): Plan: noted cont warfarin and asa for secondary prevention (8) Type 2 diabetes mellitus with obesity: Plan: a1c 7.1% cont lantus cont novolog BSGs ac/hs (9) Chronic anticoagulation: Plan: warfarin for a.flutter but particularly her mechanical mitral valve INR goal 2.5 to 3.5 see above (10) Obstructive sleep apnea on CPAP: Plan: 12cm H20 currently has blended O2 into the CPAP on night prior to discharge would get overnight oximetry study to see if blended O2 is needed for home (currently NOT on O2 at home) (11) History of tobacco abuse: Plan: noted (12) Abnormal TSH: Plan: TSH 0.018 FT4 wnl sick euthyroid more than likely but FT4 is top-normal with newly added amiodarone will need to follow this as outpatient recheck in 1 month (13) Cardiomyopathy: Plan: tachy-arrhythmia induced? EF March 2024 - 55-60% EF this admission - 15-20% see above appreciate cardiology assistance (14) JASON (acute kidney injury): Plan: peak Cr 1.77 now Cr <1 appreciate nephrology assistance resume lasix today JASON likely on the basis of cardiorenal syndrome (15) Hyperkalemia: Plan: 2nd JASON resolved remains on Lokelma give such 1 more day and if K level tomorrow is wnl would discontinue (16) Tricuspid valve regurgitation: (17) History of pulmonary embolism: Plan: noted on warfarin chronically follows with [facility] (18) Cervical spine pain: Plan: MRI c-spine this admission -- IMPRESSION: 1. There is no MRI evidence of acute fracture. 2. There is nonspecific interspinous edema at C2-C3, C6-C7, and C7-T1. This could potentially be seen in the setting of ligamentous injury. Clinical correlation will be essential. 3. Multilevel spondylosis as above. See discussion for detailed level by level analysis. 4. The cervical cord is normal in morphology and signal intensity with no abnormal postcontrast enhancement identified. In light of ongoing pain will ask Dr Cheney, her spine surgeon, to see her in consult. Add lidoderm patches. Change oxy to q6h prn from BID dosing. (19) UTI (urinary tract infection): Plan: received 3 doses of rocephin culture grew lactobacillus + gardnerella will stop abx (20) Left-sided weakness: Plan: 07/20/24 PM --> episode of severe neck pain, radiating into the left arm, with associated cervical paraspinal and lumbar muscle spasm, followed by weakness of the left arm and leg. CT of the head was obtained, stroke alert called, [place] [facility] involved with her case. 07/20/24 event NOT felt to be TIA or acute stroke. MRI brain negative for acute stroke that would account for her symptoms. Suspect left arm weakness is due to severe c-spine disease -- see #18 above. f/u Dr Helms - [facility] neuro - post-discharge. of note --- patient is s/p L3/S1 spinal decompression and fusion by Dr. Cheney in November 2023 Plan DVT prophylaxis: Patient on Lovenox and warfarin; likely can d/c lovenox on 07/25/24 PT/OT recommended home with home health services after discharge Admission and Anticipated Discharge Date Admission Date: July 20, 2024 Subjective Patient reports no new symptoms. Review of Systems Review of Systems: All systems reviewed & are unremarkable except as noted in HPI & below Physical Exam Physical Exam: gen - obese, no longer appears dyspneic.d neck - no obvious JVD mouth - MMM heart - RRR, s1 s2, no obvious murmur; mechanical valve closure sound present lungs - mild wheezes scattered b/l; no rales; mild tachypnea abd - soft NT ND BS+; no HSM; negative hepatojugular reflex ext - trace edema b/l, pulses 2+ b/l psych - a/o x 3 Results & Data Results & Data Vital Signs (Past 12 Hours) Vital Signs Temp Pulse Pulse Resp BP Pulse Ox O2 Del Method 07/25/24 15:52 36.6 C 58 L 19 138/67 97 Room Air 07/25/24 15:13 53 L 22 100 CPAP 07/25/24 15:13 53 L 22 100 07/25/24 15:01 58 L 07/25/24 11:52 60 18 98 Room Air 07/25/24 11:10 37.0 C 64 22 146/79 H 96 Room Air 07/25/24 09:15 Room Air 07/25/24 08:04 36.8 C 60 18 152/86 H 97 Room Air 07/25/24 07:38 60 18 98 Nasal Cannula 07/25/24 07:25 52 L O2 Flow Rate 07/25/24 15:52 07/25/24 15:13 2 07/25/24 15:13 2 07/25/24 15:01 07/25/24 11:52 07/25/24 11:10 07/25/24 09:15 07/25/24 08:04 07/25/24 07:38 2 07/25/24 07:25 PG Care Time/CCT Total # of Minutes Spent Total Time Spent with Patient: Total time spent is greater than 50% in coordination of care (as documented) at patient's floor/unit and/or counseling patient: Coding Level of Care Code 33252 SUB INP/OBS CARE 2/35MIN Diagnoses Atrial flutter I48.92 Junctional tachycardia I47.19 Acute systolic CHF (congestive heart failure) I50.21 Status post mitral valve replacement with metallic valve Z95.4 Elevated LFTs R79.89 COPD (chronic obstructive pulmonary disease) J44.9 History of TIA (transient ischemic attack) Z86.73 Type 2 diabetes mellitus with obesity E11.69; E66.9 Chronic anticoagulation Z79.01 Obstructive sleep apnea on CPAP G47.33; Z99.89 History of tobacco abuse Z87.891 Abnormal TSH R79.89 Cardiomyopathy I42.9 JASON (acute kidney injury) N17.9 Hyperkalemia E87.5 Tricuspid valve regurgitation I07.1 History of pulmonary embolism Z86.711 Cervical spine pain M54.2 UTI (urinary tract infection) N39.0 Left-sided weakness R53.1
[2024-07-25] MEDS: VALSARTAN/SACUBITRIL 26/24MG TAB PO SCH (20:50)
[2024-07-26 07:13] LABS: Hematocrit (blood only) 29.4 % (37.0-47.0); Mean Corpuscular Hemoglobin 26.8 pg (25.0-34.0); Mean Corpuscular Hgb Conc 30.6 g/dL (32.0-36.0); Mean Corpuscular Volume 87.5 fL (80.0-100.0); Mean Platelet Volume 10.9 fL (9.4-12.4); Nucleated RBC # (auto) 0.02 K/uL (0.00-0.12); Nucleated RBC % (auto) 0.3 %; Platelet Count 213 K/uL (130-400); RDW Coefficient of Variation 16.9 % (11.5-14.5); RDW Standard Deviation 54.3 fL (36.4-46.3); Red Blood Count 3.36 M/uL (4.20-5.40); White Blood Count 6.12 K/ul (4.8-10.8)
[2024-07-26 07:30] LABS: BUN Creatinine Ratio 22.1 (10-20); Calcium 8.4 mg/dl (8.6-10.3); Creatinine Clr Calc Pharmacy 97.9 ml/min; Potassium 4.3 mmol/L (3.5-5.1)
[2024-07-26 07:55] LABS: INR 2.8 (0.9-1.1); Prothrombin Time 27.4 Seconds (9.0-12.0)
[2024-07-26] MEDS: EMPAGLIFLOZIN 10 MG TAB PO SCH (07:57)
--- NOTE | 2024-07-26 10:40 | Pharmacy Report ---
Pharmacy Glycemic Short Note 2 - Date of Service July 26, 2024 - Glycemic Short BSG Results (Last 24 hours): 07/25/24 07/25/24 07/25/24 11:07 15:57 20:30 Glucose POC Glucose 79 137 H 154 H 07/26/24 07/26/24 06:45 07:38 Glucose 85 POC Glucose 109 H OUTPATIENT ANTIDIABETIC REGIMEN: * metformin 1000 mg PO BID * dulaglutide 4.5 mg SQ q7d (Fridays) HbA1c: 7.1% (07/22/24) ASSESSMENT: 07/26/24: * Blood sugars tightly controlled yesterday, ranging 79-154 mg/dL * Empagliflozin added by cardiology due to concomitant heart failure * Decreased basal by 50% yesterday, Novolog parameters loosened in response to blood sugars and addition of empagliflozin 07/24/24: * Blood sugars reasonably well-controlled yesterday, trending down throughout the day * Received 30 units of insulin (10 units of basal and 20 units of prandial/correctional bolus) * Per RN, patient has been drinking soda and did eat ice cream yesterday morning * prn Novolog order added to cover snacks * Fasting blood sugar of 98 mg/dL this morning, will slightly decrease basal today 07/22 * Blood sugars at goal today, was NPO this morning, but then ordered diet. * Will give daily Lantus dose and continue to titrate to goal blood sugar. * Pt remains on heparin drip. 07/21 * Deb is a 58 yo T2DM admitted with increased shortness of breath over the past few days. Started on amiodarone infusion for A.flutter and now converted to oral. Also on heparin IV infusion. Good outpatient glycemic control - A1c 6.9%. * Persistent hyperglycemia despite initiation of short acting insulin. * Will tighten Novolog CF and CR. Add conservative dose of Lantus per patient NPO at midnight. * During past admission, patient required 25-30 units of Lantus per day while on high dose IV steroids. PLAN FOR INPATIENT GLYCEMIC CONTROL: * Empagliflozin 10 mg PO daily * Basal insulin * Lantus 4 units SQ daily * Bolus insulin * NovoLog per scale ACHS or Q6hrs while NPO + prn order to cover snacks (carb ratio only, 1 unit per 12 grams CHO consumed) * Goal Range: Low 120 mg/dL - High 150 mg/dL * Correction Factor: 35 mg/dL/unit * Nutritional / Prandial insulin per carb ratio of 1 unit per 12 grams CHO consumed
[2024-07-26] MEDS: NYSTATIN SUSP 500,000 U/5 ML UDC PO SCH (11:29)
[2024-07-26] MEDS ORDERED: FIRST - Mouthwash BLM 119 ML PO PRN (16:31)
[2024-07-26] MEDS: ACETAMINOPHEN 325 MG TAB PO ONE (17:20)
[2024-07-26] MEDS: diphenhydrAMINE Capsule 25 MG CAP PO ONE (17:21)
[2024-07-26] MEDS: FIRST - Mouthwash BLM 5 ML UDP PO ONE (17:42)
[2024-07-26] MEDS: SODIUM CHLORIDE 0.65% NA SOLN 45 ML (OCEAN) PRN (18:09)
--- NOTE | 2024-07-26 18:20 | Cardiology Progress Note ---
Date of Service July 26, 2024 Assessment & Plan (1) Acute systolic CHF (congestive heart failure): (2) Status post mitral valve replacement with metallic valve: (3) Atrial flutter: (4) Cardiomyopathy: (5) Dizziness: (6) Junctional tachycardia: Plan 1. Acute on chronic systolic heart failure. She seems well compensated. Lung examination unremarkable. No evidence of pulmonary vascular congestion. Continuing on 40 mg of Lasix daily. 2. Cardiomyopathy: She has severely reduced LV systolic function. Possibly tachycardia mediated. Tolerating Jardiance and Entresto at the current doses. Given her junctional rhythm she is not a great candidate for metoprolol. Will continue amiodarone. 3. Atrial flutter: This appeared to be the presenting rhythm. She had some atrial flutter again today. Overall rate control appeared reasonable. I think we will continue her on her current dose of amiodarone with an intention of reducing it to 200 mg daily in the outpatient setting. If she has persistent atrial flutter with elevated heart rates we can consider adding beta-blockade. Catheter-based therapy would also be reasonable although she has a good chance of having an atypical flutter which could not necessarily be fixed at our institution. Continue systemic anticoagulation. 4. Accelerated junctional rhythm: There were actually some P waves on her EKG today before she developed atrial flutter. Will continue to monitor on telemetry. 5. Mechanical mitral valve: This appears to be functioning normally. Continue warfarin. 6. Dizziness: Not a complaint today. Admission and Anticipated Discharge Date Admission Date: July 20, 2024 Subjective This afternoon the patient clearly feeling better. Her breathing was better overall. She was ambulatory in the hernandez with a walker by her report. She states she did have some breathing difficulty but no significant dizziness or lightheadedness. She says she is aware of some palpitations at times. No chest pain. Review of Systems Review of Systems: Per HPI Physical Exam Physical Exam: She is alert and oriented x3. Mood affect appear normal. She answered all questions appropriately. HEENT: Sclerae are anicteric. Pupils are equal and reactive to light and accommodation. Extraocular movements were intact. Neuro: Cranial nerves intact Lungs: Normal respiratory effort. No wheezing. No rales. Lungs clear. Cardiac: The rhythm was irregular. Mechanical S1. Normal S2. Soft diastolic murmur. The PMI was not markedly displaced on palpation. Extremities: Patient has bilateral radial pulses that are equal in intensity. There is no evidence cyanosis or clubbing. There was no evidence of significant peripheral edema bilaterally. Skin: There are no rashes noted on examination today. Results & Data Vital Signs (Past 12 Hours) Vital Signs Temp Pulse Pulse Pulse Pulse Resp Resp 07/26/24 16:01 36.6 C 60 18 07/26/24 15:54 74 18 07/26/24 13:19 07/26/24 11:35 36.3 C L 64 18 07/26/24 11:15 71 62 22 07/26/24 11:14 71 18 07/26/24 08:10 07/26/24 08:07 36.6 C 55 L 20 07/26/24 07:30 52 L 20 07/26/24 07:21 49 L Resp BP Pulse Ox Pulse Ox Pulse Ox O2 Del Method 07/26/24 16:01 153/65 H 98 Room Air 07/26/24 15:54 94 Room Air 07/26/24 13:19 148/84 H 07/26/24 11:35 160/81 H 100 Nebulizer 07/26/24 11:15 18 96 99 07/26/24 11:14 98 Room Air 07/26/24 08:10 Room Air 07/26/24 08:07 143/75 H 94 Room Air 07/26/24 07:30 94 Room Air 07/26/24 07:21 Laboratory Results Abnormal Lab Results 07/25/24 07/26/24 07/26/24 20:30 06:45 07:38 WBC 6.12 RBC 3.36 L Hgb 9.0 L Hct 29.4 L MCV 87.5 MCH 26.8 MCHC 30.6 L RDW Std Deviation 54.3 H RDW Coeff of Majo 16.9 H Plt Count 213 MPV 10.9 Absolute Nucleated RBC 0.02 Nucleated RBC % (auto) 0.3 PT 27.4 H INR 2.8 H Sodium 141 Potassium 4.3 Chloride 108 H Carbon Dioxide 29 Anion Gap 4 BUN 17 Creatinine 0.77 Est Cr Clr Drug Dosing 97.9 eGFR 88.81 BUN/Creatinine Ratio 22.1 H Glucose 85 POC Glucose 154 H 109 H Calcium 8.4 L 07/26/24 07/26/24 11:16 16:21 WBC RBC Hgb Hct MCV MCH MCHC RDW Std Deviation RDW Coeff of Majo Plt Count MPV Absolute Nucleated RBC Nucleated RBC % (auto) PT INR Sodium Potassium Chloride Carbon Dioxide Anion Gap BUN Creatinine Est Cr Clr Drug Dosing eGFR BUN/Creatinine Ratio Glucose POC Glucose 75 190 H Calcium PG Care Time/CCT Total # of Minutes Spent Total Time Spent with Patient: Total time spent is greater than 50% in coordination of care (as documented) at patient's floor/unit and/or counseling patient: Coding Level of Care Code 79945 SUB INP/OBS CARE 2/35MIN Diagnoses Acute systolic CHF (congestive heart failure) I50.21 Status post mitral valve replacement with metallic valve Z95.4 Atrial flutter I48.92 Cardiomyopathy I42.9 Dizziness R42 Junctional tachycardia I47.19
[2024-07-26] MEDS: OPTIRAY 320 125ml IV ONE (19:01)
--- NOTE | 2024-07-26 20:04 | CT Scan Report ---
Exam(s): CT HEAD, CTA HEAD W/WO Contrast IV Amt: optiray 320 118ml EXAM: CT Head With Intravenous Contrast CLINICAL HISTORY: Reason for exam: stroke. TECHNIQUE: Axial computed tomography images of the head/brain with intravenous contrast. CTDI is 62.6 mGy and DLP is 896.03 mGy-cm. Automated exposure control was utilized for the study. A dose lowering technique was utilized adhering to the principles of ALARA. CONTRAST: Patient received optiray 320 118ml of IV contrast COMPARISON: CT brain: 07/20/2024 FINDINGS: Motion-induced image degradation limits anatomical details. Brain: There is no acute intracranial hemorrhage, mass-effect or midline shift of structures. Jose-white matter differentiation is maintained. Mild/moderate cerebral atrophy with widening of the extra-axial spaces and ventricular dilatation. A few tiny/punctate senescent basal ganglion calcifications. Bones/joints: Unremarkable. No acute fracture. Soft tissues: Unremarkable. Sinuses: Unremarkable as visualized. No acute sinusitis. Mastoid air cells: Unremarkable as visualized. No mastoid effusion.. IMPRESSION: . No acute intracranial abnormality noted. If there is continued clinical concern for acute CVA, recommend MRI brain with DWI. EXAM: CT Angiography Head Without and With Intravenous Contrast CLINICAL HISTORY: Reason for exam: stroke. TECHNIQUE: Axial computed tomographic angiography images of the head without and with intravenous contrast. CTDI is 45.67 mGy and DLP is 2284 mGy-cm. Automated exposure control was utilized for the study. A dose lowering technique was utilized adhering to the principles of ALARA. MIP reconstructed images were created and reviewed. CONTRAST: Patient received optiray 320 118ml of IV contrast COMPARISON: No relevant prior studies available. FINDINGS: VASCULATURE: Intracranial circulation is unremarkable with no vascular malformation, aneurysm or stenosis. No branch occlusion identified. Hypoplastic/absent left A1 segment.. Right and left vertebral artery: Unremarkable as visualized. Dominant left vertebral artery. Basilar artery: Unremarkable. No occlusion or significant stenosis. No aneurysm. IMPRESSION: CTA head: No large vessel occlusion, significant stenosis or aneurysm. Communications: Call Doctor Stroke Electronically signed by: Carmen Crum MD, DABR 07/26/24 20:04 PM
--- NOTE | 2024-07-26 22:17 | CT Scan Report ---
Exam(s): CTA NECK With Contrast EXAM: CT Angiography Neck With Intravenous Contrast CLINICAL HISTORY: Reason for exam: stroke. TECHNIQUE: Routine carotid CT angiography protocol was performed with intravenous contrast. NASCET criteria using the distal ICAs for comparison were used for evaluation of stenoses. CTDI is 13.88 mGy and DLP is 472.62 mGy-cm. Automated exposure control was utilized for the study. A dose lowering technique was utilized adhering to the principles of ALARA. MIP reconstructed images were created and reviewed. CONTRAST: Contrast must be dictated COMPARISON: CT brain: 07/26/2024 FINDINGS: Atherosclerotic calcifications of the aortic arch. Likely prior CABG procedure. Median sternotomy. VASCULATURE: Right common carotid artery: Distally along the carotid bulb somewhat bulky calcified atherosclerotic plaques, <50% luminal narrowing. No occlusion. No dissection. Right internal carotid artery: Proximally small calcified atherosclerotic plaques.. Extracranial segment is patent with no occlusion or significant stenosis. No dissection. Right external carotid artery: Unremarkable. No occlusion. Right vertebral artery: Proximally approximately 7 cm long segmental occlusion of the right vertebral artery (series 600 image 51). No occlusion or significant stenosis. No dissection. Left common carotid artery: A 3.5 cm long segmental calcified atherosclerosis with >50% stenosis (series 600 image 44). No occlusion. No dissection. Left carotid bulb: Calcified atherosclerosis with up to 70% stenosis (series 600 image 44) Left internal carotid artery: Unremarkable. Extracranial segment is patent with no occlusion or significant stenosis. No dissection. Left external carotid artery: Unremarkable. No occlusion. Left vertebral artery: Unremarkable. No occlusion or significant stenosis. No dissection. NECK: Bones/joints: No acute fracture. Multilevel moderately advanced degenerative spondylosis with anteriorly bridging osteophytes. Soft tissues: Unremarkable. Lung apices: Emphysematous changes. Biapical pleural parenchymal thickening/scarring. Other findings: A 2.1 x 1.5 cm complex left thyroid nodule(TR-4), series 600 image 38 . Somewhat dilated/patulous visualized upper esophagus. CAROTID STENOSIS REFERENCE USING NASCET CRITERIA: % ICA stenosis = (1 - narrowest ICA diameter/diameter of distal cervical ICA) x 100. Mild - <50% stenosis. Moderate - 50-69% stenosis. Severe - 70-94% stenosis. Near occlusion - 95-99% stenosis. Occluded - 100% stenosis. IMPRESSION: Abnormal CTA neck as described above (approximately 7 cm long segmental occlusion of the right vertebral artery up to 70% stenosis of the left carotid bulb, a 3.5 cm long segmental calcified atherosclerosis of the mid left ICA with> 50% stenosis). A 2.1 x 1.5 cm complex left thyroid nodule. Sonographic correlation recommended. Multilevel moderately advanced degenerative cervical spondylosis. . Electronically signed by: Carmen Crum MD, STEVE 07/26/24 22:17 PM
--- NOTE | 2024-07-26 23:54 | Communication Note ---
Date of Service: July 26, 2024 -Stroke alert called at approximately 6:40 PM, before start of shift. On arrival, patient appeared to have complete left hemiparesis, left facial droop, on visual exam. Daytime hospitalist present at bedside with patient. -Received sign-out at 7 PM from daytime hospitalist via [place] text as patient was transported to the ICU. Called telestroke neurologist, Dr. Kojo Smith, to discuss case. -Returned to bedside in ICU. Facial droop, left LE weakness appeared to have improved/resolved. 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 Normal capillary refill. -Patient continues to report improvement following conclusion of telestroke evaluation. -CT head negative for hemorrhage or infarct via stat rad. Patient transported back to PCU floor. Resident Activity Tracking Resident Involvement: Resident Care Provided Care Provided: Adult Hospital Medicine
[2024-07-27] MEDS: ACETAMINOPHEN 500 MG TAB PO PRN (00:14)
[2024-07-27] MEDS: HYDROmorphone INJ 0.5 MG/0.5 ML SYR IV STA ×4 (01:20→10:47)
[2024-07-27 01:28] LABS: Allen Test Pos (Pos); Base Excess ABG 7.4 mEq/L (-9-1.8); HCO3 ABG 31 mmol/L (19-24); Oxygen Saturation ABG 96.3 % (90-95); PCO2 ABG 40 mmHg (35-46); PO2 ABG 70 mmHg (80-95)
[2024-07-27 01:43] LABS: Hematocrit (blood only) 37.5 % (37.0-47.0); Hemoglobin 11.6 g/dl (12.0-16.0); Mean Corpuscular Hemoglobin 26.5 pg (25.0-34.0); Mean Corpuscular Hgb Conc 30.9 g/dL (32.0-36.0); Mean Corpuscular Volume 85.6 fL (80.0-100.0); Mean Platelet Volume 10.7 fL (9.4-12.4); Nucleated RBC # (auto) 0.03 K/uL (0.00-0.12); Nucleated RBC % (auto) 0.4 %; Platelet Count 265 K/uL (130-400); RDW Coefficient of Variation 16.6 % (11.5-14.5); RDW Standard Deviation 51.5 fL (36.4-46.3); Red Blood Count 4.38 M/uL (4.20-5.40)
[2024-07-27 02:03] LABS: Albumin Globulin Ratio 0.9 (0.9-2); Albumin Level 3.7 gm/dl (3.4-5.0); BUN Creatinine Ratio 15.5 (10-20); Bilirubin,Total 0.8 mg/dl (0.2-1.0); Calcium 9.4 mg/dl (8.6-10.3); Creatinine Clr Calc Pharmacy 77.7 ml/min; Globulin 3.9 gm/dl (2.5-4.0); Potassium 3.6 mmol/L (3.5-5.1); Total Protein 7.6 gm/dl (6.0-8.3)
[2024-07-27 02:06] LABS: INR 2.2 (0.9-1.1); Prothrombin Time 22.6 Seconds (9.0-12.0)
[2024-07-27 02:20] LABS: Troponin I High Sensitivity 204.8 pg/ml (0-14)
--- NOTE | 2024-07-27 02:47 | Communication Note ---
Date of Service: July 27, 2024 Was notified via [place] text of patient's left hand pain despite 10 mg of p.o. oxycodone. Hand pain remained refractory following p.o. Tylenol 1000 mg. At that point, proceeded to bedside, where patient was in visible distress, favoring left arm and hand. 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 Capillary refill was normal, however was unable to detect radial pulse, by hand or with a stethoscope. Immediately ordered stat arterial Doppler of left upper extremity, stat blood work (ABG, hs troponin, CBC, CMP), then notified the attending mold filler plastic dolls. Retrieved hand-held Doppler reader from ER, then returned to patient's bedside to recheck pulses in left arm left brachial pulses were strong, however, was unable to detect radial or ulnar pulse with the hand-held Doppler. Ordered IV Dilaudid 0.5 mg x 2 doses for patient's severe pain improved following second dose of Dilaudid. Reviewed arterial Doppler images per my amateur read, there appears to be minimal to no flow in the distal radial artery, and diminished flow in the mid-distal to distal ulnar artery. Reviewed with [employer] tech, then placed consult to vascular surgery. Deferred administration of Plavix, as patient already on warfarin (mechanical heart valve) and aspirin 81 mg. Ordered another spot dose of IV Dilaudid 0.5 mg. Resident Activity Tracking Resident Involvement: Resident Care Provided Care Provided: Adult Hospital Medicine
--- NOTE | 2024-07-27 02:51 | Magnetic Resonance Report ---
Exam(s): MRI HEAD Without Contrast EXAM: MR Head Without Intravenous Contrast CLINICAL HISTORY: Reason for exam: L facial droop, L UE + LE weakness. TECHNIQUE: Magnetic resonance images of the head/brain without intravenous contrast in multiple planes. COMPARISON: CT head: 07/26/2024 FINDINGS: Motion-induced image degradation limits diagnostic sensitivity of the exam. Brain: A tiny/small rounded focus with restricted diffusion is seen along the posterior right parietal gyrus, concerning for an acute infarct versus artifact (series 4 image 18). No mass. No hemorrhage or midline shift of structures. Ventricles: Unremarkable. No ventriculomegaly. FLAIR imaging demonstrated minimal periventricular white matter signal hyperintensity/normal changes of aging. Normal void signal is present within the carotid and basilar arteries. Bones/joints: Unremarkable. . Sinuses: Unremarkable as visualized. No acute sinusitis. Mastoid air cells: Unremarkable as visualized. No mastoid effusion. Orbits: Unremarkable as visualized. IMPRESSION: A small rounded focus with a restricted diffusion is seen at the posterior right parietal gyrus, concerning for an acute infarct versus artifact. No evidence of acute intracranial hemorrhage or mass. . Electronically signed by: Carmen Crum MD, DABR 07/27/24 02:49 AM
[2024-07-27 07:09] VITALS: TEMP 97.7
--- NOTE | 2024-07-27 07:56 | Cardiology Progress Note ---
Date of Service July 27, 2024 Assessment & Plan (1) Acute systolic CHF (congestive heart failure): (2) Status post mitral valve replacement with metallic valve: (3) Atrial flutter: (4) Cardiomyopathy: (5) Dizziness: (6) Junctional tachycardia: Plan 1. Acute on chronic systolic heart failure. She seems well compensated. Lung examination unremarkable. No evidence of pulmonary vascular congestion. Continuing on 40 mg of Lasix daily. 2. Cardiomyopathy: She has severely reduced LV systolic function. Possibly tachycardia mediated. Tolerating Jardiance and Entresto at the current doses. Given her junctional rhythm she is not a great candidate for metoprolol. Will continue amiodarone. 3. Atrial flutter: This appeared to be the presenting rhythm. She continues to cycle in and out of atrial flutter. Mildly elevated ventricular rates at times. When resting ventricular rates are well-controlled. I think we can temporarily increase her dose of amiodarone as she has not been on a traditional loading dose. Will need to be cautious given her history of a junctional rhythm when she converts. She will continue systemic anticoagulation. 4. Accelerated junctional rhythm: Some P waves are seen yesterday prior to conversion to atrial flutter. 5. Mechanical mitral valve: This appears to be functioning normally. Continue warfarin. 6. Dizziness: Not a complaint today. 7. Left arm pain and perfusion: There is some concern about poor perfusion of the distal left upper extremity yesterday evening. She does have diminished radial pulse in the left hand, but the overall perfusion appears to be good this morning. Duplex was performed the results are pending. She seems to have a lot of difficulty maintaining adequate anticoagulation. INR is subtherapeutic again today. He would be reasonable to restart systemic anticoagulation with enoxapar in or unfractionated heparin provided there are no neurologic contraindications. Admission and Anticipated Discharge Date Admission Date: July 20, 2024 Subjective This morning the patient relayed the events that occurred yesterday evening. Initially she seemed to have both pain and inability to use her left arm. Some associated facial paresthesias as well. Reportedly she underwent an evaluation for stroke and her symptoms eventually resolved. There are some concern about poor perfusion of the left hand. Currently the patient reports good function of the left upper extremity without pain. No current breathing difficulty. Ambulatory around the donis yesterday without notable symptoms. Sometimes aware of palpitations. No chest pain. Review of Systems Review of Systems: Per HPI Physical Exam Physical Exam: She is alert and oriented x3. Mood affect appear normal. She answered all questions appropriately. HEENT: Sclerae are anicteric. Pupils are equal and reactive to light and accommodation. Extraocular movements were intact. Neuro: Cranial nerves intact Lungs: Normal respiratory effort. No wheezing. No rales. Lungs clear. Cardiac: The rhythm was irregular. Mechanical S1. Normal S2. Soft diastolic murmur. The PMI was not markedly displaced on palpation. Extremities: Good perfusion of the left hand. There is no evidence cyanosis or clubbing. There was no evidence of significant peripheral edema bilaterally. Skin: There are no rashes noted on examination today. Results & Data Vital Signs (Past 12 Hours) Vital Signs Temp Pulse Pulse Pulse Pulse Resp BP 07/27/24 07:25 81 17 07/27/24 07:25 72 17 07/27/24 07:09 36.5 C 70 22 183/90 H 07/27/24 03:45 36.6 C 135 H 20 178/106 H 07/26/24 23:12 36.6 C 63 22 187/130 H 07/26/24 23:00 123 H 24 07/26/24 23:00 123 H 07/26/24 22:40 69 07/26/24 21:15 36.4 C L 65 20 189/81 H 07/26/24 19:52 69 14 171/80 H Pulse Ox Pulse Ox O2 Del Method O2 Del Method FiO2 07/27/24 07:25 98 21 07/27/24 07:25 98 CPAP 21 07/27/24 07:09 95 CPAP 07/27/24 03:45 97 CPAP 07/26/24 23:12 98 CPAP 07/26/24 23:00 98 07/26/24 23:00 98 CPAP 07/26/24 22:40 07/26/24 21:15 92 Room Air 07/26/24 19:52 97 Room Air Laboratory Results Abnormal Lab Results 07/26/24 07/26/24 07/26/24 06:45 11:16 16:21 WBC RBC Hgb Hct MCV MCH MCHC RDW Std Deviation RDW Coeff of Majo Plt Count MPV Absolute Nucleated RBC Nucleated RBC % (auto) PT 27.4 H INR 2.8 H ABG pH ABG pCO2 ABG pO2 ABG HCO3 ABG O2 Saturation ABG Base Excess Luis Test Oxygen Given Sodium Potassium Chloride Carbon Dioxide Anion Gap BUN Creatinine Est Cr Clr Drug Dosing eGFR BUN/Creatinine Ratio Glucose POC Glucose 75 190 H Lactate Calcium Total Bilirubin AST ALT Alkaline Phosphatase Troponin I High Sens Total Protein Albumin Globulin Albumin/Globulin Ratio 07/26/24 07/26/24 07/27/24 18:44 21:08 01:20 WBC RBC Hgb Hct MCV MCH MCHC RDW Std Deviation RDW Coeff of Majo Plt Count MPV Absolute Nucleated RBC Nucleated RBC % (auto) PT INR ABG pH 7.50 H ABG pCO2 40 ABG pO2 70 L ABG HCO3 31 H ABG O2 Saturation 96.3 H ABG Base Excess 7.4 H Luis Test Pos Oxygen Given RA Sodium Potassium Chloride Carbon Dioxide Anion Gap BUN Creatinine Est Cr Clr Drug Dosing eGFR BUN/Creatinine Ratio Glucose POC Glucose 170 H 119 H Lactate Calcium Total Bilirubin AST ALT Alkaline Phosphatase Troponin I High Sens Total Protein Albumin Globulin Albumin/Globulin Ratio 07/27/24 07/27/24 01:30 07:05 WBC 8.50 RBC 4.38 Hgb 11.6 L Hct 37.5 MCV 85.6 MCH 26.5 MCHC 30.9 L RDW Std Deviation 51.5 H RDW Coeff of Majo 16.6 H Plt Count 265 MPV 10.7 Absolute Nucleated RBC 0.03 Nucleated RBC % (auto) 0.4 PT 22.6 H INR 2.2 H ABG pH ABG pCO2 ABG pO2 ABG HCO3 ABG O2 Saturation ABG Base Excess Luis Test Oxygen Given Sodium 139 Potassium 3.6 Chloride 99 Carbon Dioxide 29 Anion Gap 11 BUN 15 Creatinine 0.97 Est Cr Clr Drug Dosing 77.7 eGFR 67.31 BUN/Creatinine Ratio 15.5 Glucose 214 H POC Glucose 163 H Lactate 1.7 Calcium 9.4 Total Bilirubin 0.8 AST 31 ALT 75 H Alkaline Phosphatase 243 H Troponin I High Sens 204.8 H* Total Protein 7.6 D Albumin 3.7 Globulin 3.9 Albumin/Globulin Ratio 0.9 PG Care Time/CCT Total # of Minutes Spent Total Time Spent with Patient: Total time spent is greater than 50% in coordination of care (as documented) at patient's floor/unit and/or counseling patient: Coding Level of Care Code 51805 SUB INP/OBS CARE 3/50MIN Diagnoses Acute systolic CHF (congestive heart failure) I50.21 Status post mitral valve replacement with metallic valve Z95.4 Atrial flutter I48.92 Cardiomyopathy I42.9 Dizziness R42 Junctional tachycardia I47.19
--- NOTE | 2024-07-27 08:57 | Hospitalist Progress Note ---
Date of Service July 26, 2024 Assessment & Plan (1) Atrial flutter: Plan: presented in a.flutter with RVR on 07/20 converted to accelerated junctional rhythm on 07/21 seen by cardiology, placed on amiodarone 200mg BID continued on metoprolol succinate 25mg daily remains on warfarin with INR of 3.0 today appreciate cardiology input thus far pacemaker not indicated May need oxygen at home, will discuss with case managers. Patient be on jardiance. holding entresto. Patient has been in and out of a. flutter. INR is therapuetic. Change in mental status Stroke like symptoms Update: stroke alert called 15 minutes after I saw patient. Patient had left sided facial droop and left sided weakness in upper and lower extremity. Stroke alert was called. CTA head and neck ordered. Signed out case to overnight resident. (2) Junctional tachycardia: Plan: cardiology managing see #1 above remains hemodynamically stable despite this rhythm (3) Acute systolic CHF (congestive heart failure): Plan: EF 15-20% with grade 2 diastolic dysfunction prior echo 03/2024 with EF 55-60% new-onset systolic CHF may be 2nd to tachy-arrhythmia can't exclude ischemia but unlikely appreciate cardiology input cont meto succ 25mg daily resume lasix 40mg daily - this may need adjustment depending on clinical status pt states dry weight is 215#, but her weight has been highly variable over the last 6-9 months making her dry weight uncertain started ardiance 10mg , then ultimately Entresto (4) Status post mitral valve replacement with metallic valve: Plan: INR goal 2.5 to 3.5 INR today 2.7 remains on lovenox 1mg/kg BID + her usual warfarin schedule of 10mg daily except 15mg leave warfarin dosing as is leave lovenox 1 more day if INR on 07/25/24 is 2.5 to 3.5 stop lovenox of note - GEORGETTE with normal [facility] valve function and NO thrombus (5) Elevated LFTs: Plan: suspect 2nd to hepatic congestion from her severe systolic CHF LFTs were high upon admission LFTs should improve with diuresis recheck LFTs am need to watch LFTs carefully with addition of amiodarone can't exclude lipitor causing LFTs elevation but less likely to be safe keep lipitor on hold for now (6) COPD (chronic obstructive pulmonary disease): Plan: prior PFTs not c/w COPD, but she carries this diagnosis, and is on bronchodilators & ICS/LABA at home cont Breo add back albuterol/atroven qid (does this at home) may be contributing to her dyspnea in addition to #2 (7) History of TIA (transient ischemic attack): Plan: noted cont warfarin and asa for secondary prevention (8) Type 2 diabetes mellitus with obesity: Plan: a1c 7.1% cont lantus cont novolog BSGs ac/hs (9) Chronic anticoagulation: Plan: warfarin for a.flutter but particularly her mechanical mitral valve INR goal 2.5 to 3.5 see above (10) Obstructive sleep apnea on CPAP: Plan: 12cm H20 currently has blended O2 into the CPAP on night prior to discharge would get overnight oximetry study to see if blended O2 is needed for home (currently NOT on O2 at home) (11) History of tobacco abuse: Plan: noted (12) Abnormal TSH: Plan: TSH 0.018 FT4 wnl sick euthyroid more than likely but FT4 is top-normal with newly added amiodarone will need to follow this as outpatient recheck in 1 month (13) Cardiomyopathy: Plan: tachy-arrhythmia induced? EF March 2024 - 55-60% EF this admission - 15-20% see above appreciate cardiology assistance (14) JASON (acute kidney injury): Plan: peak Cr 1.77 now Cr <1 appreciate nephrology assistance resume lasix today JASON likely on the basis of cardiorenal syndrome (15) Hyperkalemia: Plan: 2nd JASON resolved remains on Lokelma give such 1 more day and if K level tomorrow is wnl would discontinue (16) Tricuspid valve regurgitation: (17) History of pulmonary embolism: Plan: noted on warfarin chronically follows with [facility] (18) Cervical spine pain: Plan: MRI c-spine this admission -- IMPRESSION: 1. There is no MRI evidence of acute fracture. 2. There is nonspecific interspinous edema at C2-C3, C6-C7, and C7-T1. This could potentially be seen in the setting of ligamentous injury. Clinical correlation will be essential. 3. Multilevel spondylosis as above. See discussion for detailed level by level analysis. 4. The cervical cord is normal in morphology and signal intensity with no abnor mal postcontrast enhancement identified. In light of ongoing pain will ask Dr Cheney, her spine surgeon, to see her in consult. Add lidoderm patches. Change oxy to q6h prn from BID dosing. (19) UTI (urinary tract infection): Plan: received 3 doses of rocephin culture grew lactobacillus + gardnerella will stop abx (20) Left-sided weakness: Plan: 07/20/24 PM --> episode of severe neck pain, radiating into the left arm, with associated cervical paraspinal and lumbar muscle spasm, followed by weakness of the left arm and leg. CT of the head was obtained, stroke alert called, Leida telestroke involved with her case. 07/20/24 event NOT felt to be TIA or acute stroke. MRI brain negative for acute stroke that would account for her symptoms. Suspect left arm weakness is due to severe c-spine disease -- see #18 above. f/u Dr Helms - [facility] neuro - post-discharge. of note --- patient is s/p L3/S1 spinal decompression and fusion by Dr. Cheney in November 2023 Plan DVT prophylaxis: Patient on Lovenox and warfarin; likely can d/c lovenox on 07/25/24 PT/OT recommended home with home health services after discharge Admission and Anticipated Discharge Date Admission Date: July 20, 2024 Subjective Patient seen and examined at bedside. Patient is complaining of ear pain and a sore throat. Nurse statd she was having signs of thrush earlier in the day. Review of Systems Review of Systems: All systems reviewed & are unremarkable except as noted in HPI & below Physical Exam Physical Exam: gen - obese, no longer appears dyspneic.d neck - no obvious JVD mouth - MMM, tongue appears red. heart - RRR, s1 s2, no obvious murmur; mechanical valve closure sound present lungs - mild wheezes scattered b/l; no rales; mild tachypnea abd - soft NT ND BS+; no HSM; negative hepatojugular reflex ext - trace edema b/l, pulses 2+ b/l psych - a/o x 3 Results & Data Results & Data Vital Signs (Past 12 Hours) Vital Signs Temp Pulse Pulse Pulse Resp BP Pulse Ox 07/27/24 07:25 81 17 98 07/27/24 07:25 72 17 98 07/27/24 07:09 36.5 C 70 22 183/90 H 95 07/27/24 03:45 36.6 C 135 H 20 178/106 H 97 07/26/24 23:12 36.6 C 63 22 187/130 H 98 07/26/24 23:00 123 H 24 98 07/26/24 23:00 123 H 07/26/24 22:40 69 07/26/24 21:15 36.4 C L 65 20 189/81 H 92 Pulse Ox O2 Del Method O2 Del Method FiO2 07/27/24 07:25 21 07/27/24 07:25 CPAP 21 07/27/24 07:09 CPAP 07/27/24 03:45 CPAP 07/26/24 23:12 CPAP 07/26/24 23:00 07/26/24 23:00 98 CPAP 07/26/24 22:40 07/26/24 21:15 Room Air PG Care Time/CCT Total # of Minutes Spent Total Time Spent with Patient: Total time spent is greater than 50% in coordination of care (as documented) at patient's floor/unit and/or counseling patient: Coding Level of Care Code 21246 SUB INP/OBS CARE 3/50MIN Diagnoses Atrial flutter I48.92 Junctional tachycardia I47.19 Acute systolic CHF (congestive heart failure) I50.21 Status post mitral valve replacement with metallic valve Z95.4 Elevated LFTs R79.89 COPD (chronic obstructive pulmonary disease) J44.9 History of TIA (transient ischemic attack) Z86.73 Type 2 diabetes mellitus with obesity E11.69; E66.9 Chronic anticoagulation Z79.01 Obstructive sleep apnea on CPAP G47.33; Z99.89 History of tobacco abuse Z87.891 Abnormal TSH R79.89 Cardiomyopathy I42.9 JASON (acute kidney injury) N17.9 Hyperkalemia E87.5 Tricuspid valve regurgitation I07.1 History of pulmonary embolism Z86.711 Cervical spine pain M54.2 UTI (urinary tract infection) N39.0 Left-sided weakness R53.1
--- NOTE | 2024-07-27 09:03 | Ultrasound Report ---
LEFT UPPER EXTREMITY ARTERIAL DOPPLER ULTRASOUND CLINICAL HISTORY: left hand pain and pallor, c/f L arm embolus COMPARISON STUDY: No previous studies for comparison. TECHNIQUE: Color and duplex Doppler sonography of the arterial system of the left upper extremity was performed. FINDINGS: The proximal left vertebral artery is patent with antegrade flow. Normal waveforms within t he left subclavian, axillary and proximal brachial arteries are noted. The velocities within the dist al left brachial artery are mildly diminished. The proximal left radial artery is patent although the waveforms appears abnormal. No definite flow within the mid to distal left renal artery is present. There is dampened, monophasic flow within the proximal to mid ulnar artery with no flow identified wi thin the distal left ulnar artery. IMPRESSION: 1. Abnormal left upper extremity arterial Doppler ultrasound with no flow identified within the mid t o distal left radial and ulnar arteries. This represents age-indeterminate vessel occlusion. Vascular surgery consultation is recommended. These findings will be called/faxed to ordering provider at josé e of dictation. 2. Patent left subclavian, axillary and brachial arteries although velocities within the distal left brachial artery diminished with abnormal waveform. ACT 112: Negative or not required by law. Electronically signed by: Giuliano Juares M.D. 07/27/2024 9:00 AM
[2024-07-27] MEDS: ATORVASTATIN 40 MG TAB PO SCH (09:23)
[2024-07-27] MEDS: HEPARIN SODIUM/DEXTROSE 25,000 UNITS/500 ML BAG IV SCH (10:15)
[2024-07-27] MEDS: Heparin IV Adult Wt-Based Standard *NO* INITIAL Bolus Protocol IV STA (10:19)
[2024-07-27 10:40] VITALS: PULSE 69; RESP 16; O2SAT 95
--- NOTE | 2024-07-27 10:49 | Discharge Summary ---
Discharge Summary Date of Service July 27, 2024 Principal Dx & Hospital Course #1 = Principal Diagnosis (1) Atrial flutter: presented in a.flutter with RVR on 07/20 converted to accelerated junctional rhythm on 07/21 seen by cardiology, placed on amiodarone 200mg BID continued on metoprolol succinate 25mg daily remains on warfarin appreciate cardiology input thus far pacemaker not indicated May need oxygen at home, will discuss with case specialist. Patient be on jardiance. holding entresto. Patient has been in and out of a. flutter. INR is therapuetic. Change in mental status Stroke like symptoms Update: stroke alert called 15 minutes after I saw patient. Patient had left sided facial droop and left sided weakness in upper and lower extremity. Stroke alert was called. CTA head and neck ordered. Signed out case to overnight resident. On 07/27 Her left hemiparesis had improved as well as her facial droop. Overnight her left hand was painful. U/S doppler was ordered. showed: Abnormal left upper extremity arterial Doppler ultrasound with no flow identified within the mid to distal left radial and ulnar arteries. This represents age-indeterminate vessel occlusion. Vascular surgery consultation is recommended. Heparin was ordered as INR is now subtherapeutic Her left hand is cold to touch, but able to move her digits. 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 Called Richard Nicholas: Dr. Razo vascular surgeon. Patient will be life flighted. (2) Junctional tachycardia: cardiology managing see #1 above remains hemodynamically stable despite this rhythm (3) Acute systolic CHF (congestive heart failure): EF 15-20% with grade 2 diastolic dysfunction prior echo 03/2024 with EF 55-60% new-onset systolic CHF may be 2nd to tachy-arrhythmia can't exclude ischemia but unlikely appreciate cardiology input cont meto succ 25mg daily resume lasix 40mg daily - this may need adjustment depending on clinical status pt states dry weight is 215#, but her weight has been highly variable over the last 6-9 months making her dry weight uncertain started ardiance 10mg , then ultimately Entresto (4) Status post mitral valve replacement with metallic valve: INR goal 2.5 to 3.5 INR today 2.7 remains on lovenox 1mg/kg BID + her usual warfarin schedule of 10mg daily except 15mg leave warfarin dosing as is leave lovenox 1 more day if INR on 07/25/24 is 2.5 to 3.5 stop lovenox of note - GEORGETTE with normal mech valve function and NO thrombus (5) Elevated LFTs: suspect 2nd to hepatic congestion from her severe systolic CHF LFTs were high upon admission LFTs should improve with diuresis recheck LFTs am need to watch LFTs carefully with addition of amiodarone can't exclude lipitor causing LFTs elevation but less likely to be safe keep lipitor on hold for now (6) COPD (chronic obstructive pulmonary disease): prior PFTs not c/w COPD, but she carries this diagnosis, and is on bronchodilators & ICS/LABA at home cont Breo add back albuterol/atroven qid (does this at home) may be contributing to her dyspnea in addition to #2 (7) History of TIA (transient ischemic attack): noted cont warfarin and asa for secondary prevention (8) Type 2 diabetes mellitus with obesity: a1c 7.1% cont lantus cont novolog BSGs ac/hs (9) Chronic anticoagulation: warfarin for a.flutter but particularly her mechanical mitral valve INR goal 2.5 to 3.5 see above (10) Obstructive sleep apnea on CPAP: 12cm H20 currently has blended O2 into the CPAP on night prior to discharge would get overnight oximetry study to see if blended O2 is needed for home (currently NOT on O2 at home) (11) History of tobacco abuse: noted (12) Abnormal TSH: TSH 0.018 FT4 wnl sick euthyroid more than likely but FT4 is top-normal with newly added amiodarone will need to follow this as outpatient recheck in 1 month (13) Cardiomyopathy: tachy-arrhythmia induced? EF March 2024 - 55-60% EF this admission - 15-20% see above appreciate cardiology assistance (14) JASON (acute kidney injury): peak Cr 1.77 now Cr <1 appreciate nephrology assistance resume lasix today JASON likely on the basis of cardiorenal syndrome (15) Hyperkalemia: 2nd JASON resolved remains on Lokelma give such 1 more day and if K level tomorrow is wnl would discontinue (16) Tricuspid valve regurgitation: (17) History of pulmonary embolism: noted on warfarin chronically follows with [facility] (18) Cervical spine pain: MRI c-spine this admission -- IMPRESSION: 1. There is no MRI evidence of acute fracture. 2. There is nonspecific interspinous edema at C2-C3, C6-C7, and C7-T1. This could potentially be seen in the setting of ligamentous injury. Clinical correlation will be essential. 3. Multilevel spondylosis as above. See discussion for detailed level by level analysis. 4. The cervical cord is normal in morphology and signal intensity with no abnormal postcontrast enhancement identified. In light of ongoing pain will ask Dr Cheney, her spine surgeon, to see her in consult. Add lidoderm patches. Change oxy to q6h prn from BID dosing. (19) UTI (urinary tract infection): received 3 doses of rocephin culture grew lactobacillus + gardnerella will stop abx (20) Left-sided weakness: 07/20/24 PM --> episode of severe neck pain, radiating into the left arm, with associated cervical paraspinal and lumbar muscle spasm, followed by weakness of the left arm and leg. CT of the head was obtained, stroke alert called, Leida telestroke involved with her case. 07/20/24 event NOT felt to be TIA or acute stroke. MRI brain negative for acute stroke that would account for her symptoms. Suspect left arm weakness is due to severe c-spine disease -- see #18 above. f/u Dr Helms - [facility] neuro - post-discharge. of note --- patient is s/p L3/S1 spinal decompression and fusion by Dr. Cheney in November 2023 Plan DVT prophylaxis: Patient on Lovenox and warfarin; likely can d/c lovenox on 07/25/24 PT/OT recommended home with home health services after discharge Admission HPI Per Admitting Provider Deb is a 58-year-old female with a past medical history including COPD chronic systolic CHF hypertension, chronic pain syndrome, sacroiliitis history of TIA, peripheral neuropathy, diabetes mellitus type 2 coagulation, history of mitral valve replacement, valve, GERD, PTSD, depression, anxiety chronic low back pain, lumbar facet joint syndrome, and history of PE who presented to the [facility] ED via EMS on 07/20/2024 due to complaints of increased shortness of breath for the past 3 days without relief using her rescue inhaler. EMS gave the patient a dose of Zofran, 3 DuoNeb treatments, 1 g IV mag sulfate, 125 mg IV Solu-Medrol and route and also placed the patient on BiPAP. Was noted to be tachycardic on arrival at 145, tachypneic with heart rate in the 30s while on BiPAP at 12/5, but otherwise stable. Labs were significant for an INR of 2.3, VBG pH of 7.31 with pCO2 of 28 and pO2 of 41, AST of 58, ALT of 80, alk phos of 255, total bili within normal limits, initial high-sensitivity troponin of 29, BNP of 1069 (up from 71 as of 04/18/2023), with UA showing turbid urine, 1+ protein, trace ketones, 1+ blood and bilirubin, positive urobilinogen, 3+ leukocyte esterase, greater than 50 WBC, 610 Casts, greater than 20 epithelial cells, 2+ bacteria, with hyaline cast present. EKG on arrival showed atrial flutter with 2:1 conduction at 145, ST segment elevations in the inferior leads, and T wave inversion in the anterior leads. Chest x-ray was read as cardiomegaly with mild pulmonary vascular congestion. The patient was initially given a levalbuterol nebulizer treatment, 1 g IV mag sulfate, 40 mg IV Lasix, 2 g IV ceftriaxone, 50 mcg IV fentanyl. The ED spoke with cardiology who reviewed the patient's EKGs and believed her to be in atrial flutter as well. They recommended giving the patient a bolus of amiodarone and starting her on amiodarone drip. Patient continues to be in atrial flutter with mildly improved heart rate between the [id number]. Patient was sitting in bed in no significant distress, mildly tachypneic at times while on BiPAP at 12/5 and 30% FiO2. History is obtained from the patient and her who was sitting bedside. States that she started to develop increased shortness of breath/dyspnea on exertion with left-sided chest discomfort approximately 4 days ago. Symptoms have becoming progressively worse over this time. When asked, she states that she has been using her home nebulizer treatments including DuoNebs which have actually exacerbated her symptoms. Her only relief has been when she has been using her home CPAP mask. Left-sided chest discomfort with radiation into the left neck/left shoulder significantly exacerbated when heart rate is increased or patient is using her home DuoNeb treatments. States that she has otherwise been compliant with her home medications including her home warfarin, confirms she has not missed any doses of warfarin recently. She did not have any home medications today due to her increased respiratory symptoms and calling EMS. She is still smoking approximately 1/2 pack of cigarettes daily with the use of nicotine patches and wants to continue to wean off cigarettes. We had a long discussion regarding CODE STATUS, the patient made it clear that she wishes to be a DNR/DNI due to her chronic medical conditions and poor clinical health at baseline. Her expressed understanding of her wishes and wants to respect them. The patient would want her to make medical decisions for her if she cannot make them herself. Discharge Exam gen - obese, no longer appears dyspneic.d neck - no obvious JVD mouth - MMM, tongue appears red. heart - RRR, s1 s2, no obvious murmur; mechanical valve closure sound present lungs - mild wheezes scattered b/l; no rales; mild tachypnea abd - soft NT ND BS+; no HSM; negative hepatojugular reflex ext - trace edema b/l, pulses 2+ b/l psych - a/o x 3 Discharge Plan Discharge Items Reason For Visit: atrial flutter, KLINE, heart failure Follow-up/Referrals: Sugar Weber MD [Primary Care Provider] - Medications and DC Order Prescriptions: No Action (DME) Hospital Bed Homecare [facility] See Rx Instructions .Route Qty: 1 0RF Rx Instructions: As directed-HOSPITAL BED, LENGTH OF NEED 99 MONTHS, DX CODE; Z98.890 Proctofoam HC 1-1 % foam 1 applic OH BID PRN (Reason: hemorrhoids) Qty: 10 0RF Atrovent HFA 17 mcg/actuation HFA aerosol inhaler 2 puff INHALATION TID Qty: 12.9 5RF nitroglycerin 0.4 mg tablet, sublingual 0.4 mg sublingual Q5M PRN (Reason: Chest Pain) Qty: 30 6RF Rx Instructions: do not exceed 3 doses per episode (DME) [facility] See Rx Instructions .Route .MEDSUPPLY Qty: 1 0RF Rx Instructions: To be installed and used as directed to allow safe ambulation of stairs in patient home atorvastatin 40 mg tablet 40 mg PO QPM 90 Days Qty: 90 2RF losartan 25 mg tablet 25 mg PO QAM 90 Days Qty: 90 5RF metoprolol succinate 25 mg tablet extended release 24 hr 25 mg PO QAM 90 Days Qty: 90 4RF furosemide 40 mg tablet 80 mg PO QPM Qty: 120 3RF Rx Instructions: MAY TAKE AN EXTRA 40MG DAILY, NEEDED, FOR WEIGHT GAIN. Trulicity 4.5 mg/0.5 mL pen injector 4.5 mg subcut Q7D Qty: 2 5RF Rx Instructions: please inject 4.5mg once every KATJA chlorhexidine gluconate 0.12 % mouthwash 15 ml mucous membrane TID 30 Days Qty: 120 1RF Rx Instructions: Swish and spit diclofenac sodium [Arthritis Pain (diclofenac)] 1 % gel 4 g topical QID PRN (Reason: Pain) Qty: 100 3RF acetaminophen [Tylenol Extra Strength] 500 mg tablet 1,000 mg PO BID Qty: 60 1RF aspirin [Ecotrin Low Strength] 81 mg tablet,delayed release (DR/EC) 81 mg PO QAM 90 Days Qty: 90 4RF peg 3350-electrolytes [Golytely] 236-22.74-6.74 -5.86 gram recon soln 240 ml PO ONCE Qty: 4000 0RF Rx Instructions: TAKE DIRECTED PER SPLIT DOSE INSTRUCTIONS oxycodone 10 mg tablet 10 mg PO BID PRN (Reason: pain) Qty: 60 0RF tramadol 100 mg tablet, ER multiphase 24 hr 100 mg PO HS 90 Days Qty: 90 0RF (DME) Bedside Commode [facility] See Rx Instructions .Route Qty: 1 0RF Rx Instructions: As directed metformin 500 mg tablet 1,000 mg PO BID 90 Days Qty: 360 2RF (DME) blood-glucose meter [OneTouch Verio Flex meter] [facility] See Rx Instructions .Route Qty: 1 0RF Rx Instructions: Check blood sugar 1-2 times daily (DME) lancets [OneTouch UltraSoft 2 Lancet] 30 gauge misc See Rx Instructions .Route Qty: 100 3RF Rx Instructions: Test blood sugar once daily and as needed cyclobenzaprine 5 mg tablet 5 mg PO BID PRN (Reason: muscle spasm) 30 Days Qty: 20 1RF (DME) OneTouch Verio test strips Strip See Rx Instructions .Route Qty: 100 3RF Rx Instructions: Test blood sugar once daily and as needed fluticasone furoate-vilanterol [Breo Ellipta] 100-25 mcg/dose blister with device 1 inh INHALATION QAM docusate sodium 100 mg Capsule 100 mg PO BID Qty: 30 0RF ipratropium-albuterol 0.5 mg-3 mg(2.5 mg base)/3 mL solution for nebulization 3 ml NEB Q6H nicotine [Nicoderm CQ] 21 mg/24 hr Patch 24 Hour 21 mg transdermal QAM Qty: 7 0RF Nurtec ODT 75 mg tablet,disintegrating 75 mg PO UD PRN (Reason: Migraine Headache) Rx Instructions: 75 mg PO take one tablet at migraine onset as directed; polyethylene glycol 3350 17 gram/dose powder 17 g PO UD PRN (Reason: Constipation) pantoprazole [Protonix] 40 mg tablet,delayed release (DR/EC) 40 mg PO QPM duloxetine [Cymbalta] 30 mg capsule,delayed release(DR/EC) 30 mg PO QAM potassium chloride 20 mEq tablet extended release 20 meq PO QPM warfarin 5 mg tablet 5 mg PO UD Rx Instructions: 15mg q , 10mg x 6 days per [facility] orally use as directed Basim/Other Patient Handouts: Managing Type 2 Diabetes Admission Data Admit Date/Time: 07/20/24 19:46 Attending Provider: Link Dupont Admit Provider: Haresh Jung Primary Care Provider: Sugar Weber Other Providers: Haresh Jung; Ledy Tompkins; aJmes Helms; Afshan Martinez; Codi Calderon; Cele Call; Valery Velasquez; Kam Stovall; Norm Medeiros; Izaiah Reagan; Octaviano Cole; Tierra Cole; James Blanco; Nita Patel; Draek Robert; Delvis Tirado; Harjeet Hassan; Kolby Navarro; Amairani Olson; Tl Maldonado; Kari Maldonado; Tobin Christy; Jennifer Duarte; Howard Arboleda; Clari Ballesteros; Deepika Burrows; Laureano Torres; Eve Alexis; Janet Garcia; Ivy Gonzalez; Chery Rachel; Srini Rachel V; Jaskaran Juan; Codi Mann; John Parsons; Zahira Batista; Srini Wills; Kendell Olson; Nickolas Dillon; Elisha Wu; Srini Phillips; Juan Sanders; Louisa White; Marin García; Lee Ann Patiño; Marysol Shepard; Linden Cabral; Alex Navarro; Diana Cox; Gómez Leija; Fredy Kaur; Kwaku Cano; Kam Little Jr; Violetta Nielsen; Pily Martinez; Sumi Elkins; Laureano Oneal; Octaviano España; Tonie Law; Pily Sharp ATalha; Jeancarlos Garcias; Eamon Mccauley; Claudy Anand; Gerhard Mackenzie; Anita Hubbard; Patricia Fleming; Echo Nunez; Lissette Nicolas; Mesha Rice; Blanca Her; Juan Schmitt Jr; Estrellita Mcginnis; Hiren Cohen; Bobo Cheney; Kenney Bell Hospital Stay Data Consultations 07/20/24 18:13 ED Decision to Admit Stat 07/20/24 19:54 Consult Cardiology Routine 07/21/24 09:49 Consult Neurology Routine 07/21/24 14:17 Consult Anesthesiology Routine 07/22/24 09:53 Consult Nephrology Routine 07/24/24 13:47 Consult Orthopedic Spine Surgery Routine 07/27/24 05:26 Consult Vascular Surgery Routine Procedures Performed Operation Date: 07/22/24 07:15 Actual Procedures s Echo Color Flow - Kwaku Dominguez MD p Echo Transesophageal - Kwaku Dominguez MD s Echo Doppler Complete - Kwaku Dominguez MD Diagnostic Imagining Performed 07/20/24 23:[address] [CT head/brain wo con] Stat 07/20/24 23:34 CT cervical spine wo con Stat CT lumbar spine wo con Stat 07/21/24 06:24 MRI Cervical [MR cervical spine wo/w con] Urgent MRI Lumbar Spine [MR lumbar spine wo/w con] Urgent 07/21/24 09:18 MRI Brain [MR brain wo/w con] Stat 07/21/24 15:15 US carotid doppler BI Stat 07/22/24 12:39 US Renal Bladder [US renal/blad retro comp] Routine 07/22/24 15:52 US abdomen [US liver] Stat 07/26/24 18:48 CT angio neck with con Stat CTA head wo/w [CT angio head wo/w] Stat 07/26/24 20:51 MRI Brain [MR brain wo con] Routine 07/27/24 01:04 US arterial duplex UE LT Stat Total Time Total Time Spent Total Time Spent (In Minutes): 32 Coding Level of Care Code 86360 INP/OBS DISCH >30 MIN Diagnoses Atrial flutter I48.92 Junctional tachycardia I47.19 Acute systolic CHF (congestive heart failure) I50.21 Status post mitral valve replacement with metallic valve Z95.4 Elevated LFTs R79.89 COPD (chronic obstructive pulmonary disease) J44.9 History of TIA (transient ischemic attack) Z86.73 Type 2 diabetes mellitus with obesity E11.69; E66.9 Chronic anticoagulation Z79.01 Obstructive sleep apnea on CPAP G47.33; Z99.89 History of tobacco abuse Z87.891 Abnormal TSH R79.89 Cardiomyopathy I42.9 JASON (acute kidney injury) N17.9 Hyperkalemia E87.5 Tricuspid valve regurgitation I07.1 History of pulmonary embolism Z86.711 Cervical spine pain M54.2 UTI (urinary tract infection) N39.0 Left-sided weakness R53.1
--- NOTE | 2024-07-27 11:29 | Communication Note ---
Date of Service: July 27, 2024 Patient's amiodarone and entresto dose was sent to the pharmacy. Will recommend increasing coumadin to 10 mg daily from 10 mg for 6 days and then 5 mg on .
[2024-07-27 12:40] VITALS: BP 153/65
== END 2024-07-27 11:30 | disposition short-term general hospital (02) | DRG 308 ==
LOC: ED 15:26 → SUATTDRO 19:46 → 2S 19:46

== ENCOUNTER 2024-12-01 14:13 | Inpatient (IN) ==
[2024-12-01] MEDS: OPTIRAY 320 125ml IV ONE (14:22)
--- NOTE | 2024-12-01 14:22 | Emergency Department Note ---
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 carotid artery: Atheromatous plaquing of the carotid bulb and proximal internal carotid artery with approximately 50-60% stenosis of the proximal right internal carotid artery. Left carotid artery: Atheromatous plaquing of the carotid bulb and proximal internal carotid artery. Approximately 60-70% stenosis of the proximal left internal carotid artery. Head: Intracranial internal carotid arteries: Normal caliber without significant stenosis or aneurysm. Middle cerebral arteries: Normal caliber without significant stenosis or aneurysm. Anterior cerebral arteries: Normal caliber without significant stenosis or aneurysm. Basilar artery: Normal caliber without significant stenosis or aneurysm. Posterior cerebral arteries: Normal caliber without significant stenosis or aneurysm. Noncontrast Head: Chronic ischemic white matter changes. Basal ganglia calcifications noted. No evidence of acute intracranial hemorrhage, mass, or hydrocephalus. Degenerative changes in the spine. No acute fracture. Left thyroid lobe nodule noted. Otherwise no acute process in the soft tissues. IMPRESSION: 1. No acute intracranial process. No acute hemorrhage. 2. Proximal to mid right vertebral artery is occluded. Reconstitution of the right vertebral artery at the C4-C5 level extending into the basilar artery. Left vertebral artery is patent. 3. Approximately 50-60% stenosis of the proximal right internal carotid artery. Approximately 60-70% stenosis of the proximal left internal carotid artery. 4. Otherwise no large vessel occlusion/stenosis/dissection in the head or neck. 5. Left thyroid lobe nodule noted. Case discussed with Dr. Adair at 1157 AM PST 12/01/2024. Electronically signed by Stanley Mcgovern 12-01-2024 3:01 PM Discharge Plan Visit Data Chief Complaint: Stroke Alert Stated Complaint: STROKE ALERT ED Provider: Marin Aadir Discharge Problem: Acute left-sided weakness, Stroke-like symptoms, Anticoagulated on Coumadin Patient Disposition: Admitted As Inpatient Condition: Fair Discharge Instructions Interventions: ED Discharge Assessment Last Done: 12/01/24 17:31 Forms Stand Alone Forms: rubberit Prescriptions Prescriptions: No Action warfarin 5 mg tablet See Rx Instructions PO UD Rx Instructions: 15mg q Monday, 10mg x 6 days per [facility] orally use as directed; (DME) Hospital Bed [facility] See Rx Instructions .Route Qty: 1 0RF Rx Instructions: As directed-HOSPITAL BED, LENGTH OF NEED 99 MONTHS, DX CODE; Z98.890 Proctofoam HC 1-1 % foam 1 applic [place] BID PRN (Reason: hemorrhoids) Qty: 10 0RF Atrovent HFA 17 mcg/actuation HFA aerosol inhaler 2 puff INHALATION TID Qty: 12.9 5RF nitroglycerin 0.4 mg tablet, sublingual 0.4 mg sublingual Q5M PRN (Reason: Chest Pain) Qty: 30 6RF Rx Instructions: do not exceed 3 doses per episode (DME) [place] [place] See Rx Instructions .Route .MEDSUPPLY Qty: 1 0RF Rx Instructions: To be installed and used as directed to allow safe ambulation of stairs in patient home metoprolol succinate 25 mg tablet extended release 24 hr 25 mg PO QAM 90 Days Qty: 90 4RF aspirin [Ecotrin Low Strength] 81 mg tablet,delayed release (DR/EC) 81 mg PO QAM 90 Days Qty: 90 4RF dapagliflozin propanediol [Farxiga] 10 mg tablet 10 mg PO DAILY Qty: 30 5RF acetaminophen [Tylenol Extra Strength] 500 mg tablet 1,000 mg PO BID Qty: 60 1RF atorvastatin 40 mg tablet 40 mg PO QPM 90 Days Qty: 90 2RF tramadol 100 mg tablet, ER multiphase 24 hr 100 mg PO HS 90 Days Qty: 90 0RF oxycodone 10 mg tablet 10 mg PO BID PRN (Reason: pain) Qty: 60 0RF chlorhexidine gluconate 0.12 % mouthwash 15 ml mucous membrane TID 30 Days Qty: 120 1RF Rx Instructions: Swish and spit furosemide 40 mg tablet 40 mg PO QPM Qty: 30 5RF Rx Instructions: MAY TAKE AN EXTRA 40MG DAILY, NEEDED, FOR WEIGHT GAIN. diclofenac sodium [Arthritis Pain (diclofenac)] 1 % gel 4 g topical QID PRN (Reason: Pain) Qty: 100 3RF cyclobenzaprine 5 mg tablet 5 mg PO BID PRN (Reason: muscle spasm) 30 Days Qty: 20 1RF Trulicity 4.5 mg/0.5 mL pen injector 4.5 mg subcut Q7D Qty: 2 5RF Rx Instructions: please inject 4.5mg once every MONDAY (DME) Bedside Commode Misc See Rx Instructions .Route Qty: 1 0RF Rx Instructions: As directed metformin 500 mg tablet 1,000 mg PO BID 90 Days Qty: 360 2RF (DME) blood-glucose meter [OneTouch Verio Flex meter] [facility] See Rx Instructions .Route Qty: 1 0RF Rx Instructions: Check blood sugar 1-2 times daily (DME) lancets [OneTouch UltraSoft 2 Lancet] 30 gauge misc See Rx Instructions .Route Qty: 100 3RF Rx Instructions: Test blood sugar once daily and as needed (DME) OneTouch Verio test strips Strip See Rx Instructions .Route Qty: 100 3RF Rx Instructions: Test blood sugar once daily and as needed amiodarone 200 mg tablet 200 mg PO DAILY Qty: 30 5RF Entresto 24-26 mg tablet 1 tab PO BID Qty: 60 5RF Nurtec ODT 75 mg tablet,disintegrating 75 mg PO UD PRN (Reason: Migraine Headache) Qty: 8 5RF Rx Instructions: 75 mg PO take one tablet at migraine onset as directed; fluticasone furoate-vilanterol [Breo Ellipta] 100-25 mcg/dose blister with device 1 inh INHALATION QAM docusate sodium 100 mg Capsule 100 mg PO BID Qty: 30 0RF ipratropium-albuterol 0.5 mg-3 mg(2.5 mg base)/3 mL solution for nebulization 3 ml NEB Q6H nicotine [Nicoderm CQ] 21 mg/24 hr Patch 24 Hour 21 mg transdermal QAM Qty: 7 0RF polyethylene glycol 3350 17 gram/dose powder 17 g PO UD PRN (Reason: Constipation) pantoprazole [Protonix] 40 mg tablet,delayed release (DR/EC) 40 mg PO QPM duloxetine [Cymbalta] 30 mg capsule,delayed release(DR/EC) 30 mg PO QAM potassium chloride 20 mEq tablet extended release 20 meq PO QPM Referrals Referrals: Sugar Weber MD [Primary Care Provider] -
--- NOTE | 2024-12-01 15:02 | CT Scan Report ---
INDICATION: Left-sided weakness TECHNIQUE: Noncontrast of the CT head performed from the skull base to the vertex with coronal reformats. This was followed by contrast CT angiogram head and neck from the aortic arch through the vertex. Sagittal, coronal, axial, and rotational postprocessed maximum intensity projection reconstruction images were performed. COMPARISON: CT brain from 09/24/2019. FINDINGS: CTA: NECK: Aortic arch: Normal caliber without aneurysm, dissection, or stenosis. Vertebral arteries: Proximal to mid right vertebral artery is occluded. Reconstitution of the right vertebral artery at the C4-C5 level extending into the basilar artery. Left vertebral artery is patent. Right carotid artery: Atheromatous plaquing of the carotid bulb and proximal internal carotid artery with approximately 50-60% stenosis of the proximal right internal carotid artery. Left carotid artery: Atheromatous plaquing of the carotid bulb and proximal internal carotid artery. Approximately 60-70% stenosis of the proximal left internal carotid artery. Head: Intracranial internal carotid arteries: Normal caliber without significant stenosis or aneurysm. Middle cerebral arteries: Normal caliber without significant stenosis or aneurysm. Anterior cerebral arteries: Normal caliber without significant stenosis or aneurysm. Basilar artery: Normal caliber without significant stenosis or aneurysm. Posterior cerebral arteries: Normal caliber without significant stenosis or aneurysm. Noncontrast Head: Chronic ischemic white matter changes. Basal ganglia calcifications noted. No evidence of acute intracranial hemorrhage, mass, or hydrocephalus. Degenerative changes in the spine. No acute fracture. Left thyroid lobe nodule noted. Otherwise no acute process in the soft tissues. IMPRESSION: 1. No acute intracranial process. No acute hemorrhage. 2. Proximal to mid right vertebral artery is occluded. Reconstitution of the right vertebral artery at the C4-C5 level extending into the basilar artery. Left vertebral artery is patent. 3. Approximately 50-60% stenosis of the proximal right internal carotid artery. Approximately 60-70% stenosis of the proximal left internal carotid artery. 4. Otherwise no large vessel occlusion/stenosis/dissection in the head or neck. 5. Left thyroid lobe nodule noted. Case discussed with Dr. Adair at 1157 AM PST 12/01/2024. Electronically signed by Stanley Mcgovern 12-01-2024 3:01 PM
[2024-12-01 15:05] LABS: Basophils # (auto) 0.02 K/uL (0.00-0.20); Basophils % (auto) 0.3 %; Eosinophils # (auto) 0.14 K/uL (0.00-0.50); Eosinophils % (auto) 2.4 %; Hematocrit (blood only) 36.3 % (37.0-47.0); Hemoglobin 11.5 g/dl (12.0-16.0); Immature Granulocytes # (auto) 0.01 K/uL (0.01-0.20); Immature Granulocytes % (auto) 0.2 %; Lymphocytes # (auto) 2.46 K/uL (1.20-3.40); Lymphocytes % (auto) 42.7 %; Mean Corpuscular Hemoglobin 29.4 pg (25.0-34.0); Mean Corpuscular Hgb Conc 31.7 g/dL (32.0-36.0); Mean Corpuscular Volume 92.8 fL (80.0-100.0); Mean Platelet Volume 11.2 fL (9.4-12.4); Monocytes # (auto) 0.43 K/uL (0.11-0.59); Monocytes % (auto) 7.5 %; Neutrophils % (auto) 46.9 %; Platelet Count 204 K/uL (130-400); RDW Coefficient of Variation 15.9 % (11.5-14.5); RDW Standard Deviation 53.5 fL (36.4-46.3); Red Blood Count 3.91 M/uL (4.20-5.40); White Blood Count 5.76 K/ul (4.8-10.8)
[2024-12-01 15:19] LABS: INR 4.1 (0.9-1.1); Partial Thromboplastin Ratio 1.9; Partial Thromboplastin Time 50 Seconds (21-31); Prothrombin Time 39.3 Seconds (9.0-12.0)
--- NOTE | 2024-12-01 15:22 | XRay Report ---
INDICATION: Chest pain. TECHNIQUE: Frontal radiograph of the chest. COMPARISON: Radiograph from 08/07/2020. FINDINGS: Mild pulmonary vascular congestion. Mild cardiomegaly. No infiltrate, pleural effusion or pneumothorax. No acute osseous abnormality evident. IMPRESSION: Mild pulmonary vascular congestion. Electronically signed by Stanley Mcgovern 12-01-2024 3:22 PM
[2024-12-01 15:30] LABS: Albumin Globulin Ratio 1.2 (0.9-2); Albumin Level 3.6 gm/dl (3.4-5.0); BUN Creatinine Ratio 21.4 (10-20); Bilirubin,Total 0.3 mg/dl (0.2-1.0); Calcium 9.2 mg/dl (8.6-10.3); Creatinine Clr Calc Pharmacy 67.6 ml/min; Globulin 3.1 gm/dl (2.5-4.0); Magnesium 1.9 mg/dl (1.7-2.4); Potassium 3.5 mmol/L (3.5-5.1); Total Protein 6.7 gm/dl (6.0-8.3)
[2024-12-01 15:37] LABS: Troponin I High Sensitivity 7.5 pg/ml (0-14)
[2024-12-01 15:38] LABS: Appearance Urine Clear (Clear); Bacteria Urine Automated None Seen (None Seen); Bilirubin Urine Negative (Negative); Blood Urine Negative (Negative); Cast Urine Automated 0-2 /lpf (0-2); Color Urine Yellow; Epithelial Cell Urine Auto 0-2 /hpf (0-2); Glucose Urine UA 3+ (Negative); Ketones Urine Trace (Negative); Leukocyte Esterase Urine Negative (Negative); Nitrite Urine Negative (Negative); Protein Urine 1+ (Negative); RBC Urine Automated 0-2 /hpf (0-2); Specific Gravity Urine > 1.045 (1.000-1.030); Urobilinogen Urine Negative (Negative); WBC Urine Automated 0-5 /hpf (0-5); pH Urine 7.5 (4.5-7.5)
[2024-12-01] MEDS ORDERED: ACETAMINOPHEN 325 MG TAB PO PRN (16:04)
[2024-12-01] MEDS ORDERED: ONDANSETRON INJ 2 MG/ML 2 ML VIAL IV PRN (16:04)
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
[2024-12-01] MEDS ORDERED: LORazepam 2 MG/1 ML VIAL IV STA (16:23)
[2024-12-01] MEDS ORDERED: CYCLOBENZAPRINE HCL 5 MG TAB PO PRN (18:34)
[2024-12-01] MEDS ORDERED: POLYETHYLENE (MIRALAX) 17 GM PACK PO PRN (18:34)
[2024-12-01] MEDS ORDERED: INFLUENZA VACC TS2024-25(6m+)/PF (IIV3) 0.5mL Syr IM ONE (19:05)
[2024-12-01] MEDS: ALBUT/IPRATROP 3MG/0.5MG NEB 3 ML VIAL NEB SCH (20:46)
[2024-12-01] MEDS: LORazepam 2 MG/1 ML VIAL IV SCH (20:57)
[2024-12-01] MEDS: INSULIN ASPART PER UNIT CHARGE SC SCH (21:28)
[2024-12-01] MEDS: ATORVASTATIN 40 MG TAB PO SCH (22:00)
[2024-12-01] MEDS: PANTOprazole 40 MG TAB PO SCH (22:00)
[2024-12-01] MEDS: DOCUSATE SODIUM 100 MG CAP PO SCH (22:00)
[2024-12-01] MEDS: ACETAMINOPHEN 500 MG TAB PO SCH (22:00)
[2024-12-01] MEDS: POTASSIUM CHLORIDE CRTAB 20 MEQ TABCR PO SCH (22:01)
[2024-12-01] MEDS: traMADol HCL 50 MG TABLET PO SCH (22:01)
--- NOTE | 2024-12-01 22:13 | Magnetic Resonance Report ---
MRI BRAIN WITHOUT CONTRAST TECHNIQUE: An MRI examination of the brain was performed utilizing sagittal and axial T1-weighted images as well as axial T2-weighted, FLAIR, gradient echo and diffusion-weighted images. INDICATION: Headaches COMPARISON: CT head and CTA head and neck from the same day. MRI brain June 09, 2020 FINDINGS: The ventricular, sulcal and cisternal spaces are normal in caliber. There is no evidence of intracranial mass lesion, hydrocephalus, infarct, extra-axial fluid collection, restricted diffusion or parenchymal hemorrhage. Minimal subcortical and periventricular T2/FLAIR hyperintense foci including unchanged 4 mm right frontal white matter focus are nonspecific but are typically seen in the setting of chronic small vessel ischemic changes. Other considerations include chronic migraines, less likely atypical inflammatory process. Very tiny chronic infarct of the right cerebellum Partially empty sella and prominent optic nerve sheath complexes bilaterally with some kinking. Such findings could be seen in the setting of idiopathic intracranial hypertension. The cerebellar tonsils are normal in position. The pituitary gland is not enlarged. The major arterial vascular structures of the skull base are patent. No intraorbital soft tissue mass lesion is observed. The visualized paranasal sinuses are aerated. Mastoids are aerated. IMPRESSION: No acute intracranial process detected. Partially empty sella and prominent optic nerve sheath complexes bilaterally with some kinking. Such findings could be seen in the setting of idiopathic intracranial hypertension. Electronically signed by Stas Faria 12-01-2024 10:13 PM
[2024-12-01] MEDS: oxyCODONE HCL IR 5 MG TAB (IMMEDIATE RELEASE) PO PRN (22:47)
[2024-12-02] MEDS: DICLOFENAC SOD 1% GEL 100 GM TUBE EXT PRN (05:14)
[2024-12-02 07:20] VITALS: RESP 18
[2024-12-02] MEDS: DULoxetine HCL 30 MG CAP PO SCH (08:39)
[2024-12-02] MEDS: AMIODARONE 200 MG TAB PO SCH (08:39)
[2024-12-02] MEDS: FLUTICASONE/VILANTEROL 100/25MCG 14 PUFFS/INHALER INH SCH (08:39)
[2024-12-02] MEDS: ASPIRIN 81 MG ECTAB PO SCH (08:39)
[2024-12-02] MEDS: METOPROLOL SUCC 25MG EXT REL TAB PO SCH (08:39)
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
[2024-12-02 10:39] LABS: Hematocrit (blood only) 37.2 % (37.0-47.0); Hemoglobin 11.4 g/dl (12.0-16.0); Mean Corpuscular Hgb Conc 30.6 g/dL (32.0-36.0); Mean Corpuscular Volume 94.7 fL (80.0-100.0); Mean Platelet Volume 12.1 fL (9.4-12.4); Platelet Count 191 K/uL (130-400); RDW Coefficient of Variation 15.9 % (11.5-14.5); Red Blood Count 3.93 M/uL (4.20-5.40); White Blood Count 6.99 K/ul (4.8-10.8)
[2024-12-02 10:47] LABS: Calcium 9.4 mg/dl (8.6-10.3); Potassium 3.8 mmol/L (3.5-5.1)
[2024-12-02 10:53] LABS: BUN Creatinine Ratio 27.4 (10-20); Chol HDL Ratio 3.2 (0-5); Creatinine Clr Calc Pharmacy 78.1 ml/min
[2024-12-02 10:59] VITALS: BP 149/81; TEMP 99.3; O2SAT 97
[2024-12-02 11:03] LABS: Prothrombin Time 29.9 Seconds (9.0-12.0)
[2024-12-02 11:52] VITALS: PULSE 79
[2024-12-02] MEDS ORDERED: WARFARIN SOD 5 MG TAB PO SCH (16:00)
--- NOTE | 2024-12-02 20:27 | Discharge Summary ---
Discharge Summary Date of Service December 02, 2024 Principal Dx & Hospital Course #1 = Principal Diagnosis (1) Stroke-like symptoms: (2) Carotid stenosis, left: (3) Type 2 diabetes mellitus with obesity: (4) TIA (transient ischemic attack): Plan This is a 59 year old female with past medical history of CVA (06/2024), CHF, Atrial flutter, TIA, mitral valve replacement w/ mechanical valve on chronic Coumadin, SMITA who presented to the ED for stroke like symptoms on 12/01. Patient w/ hx of small embolic appearing right parietal infarct from 06/2024. Patient also w/ occluded right vertebral artery and 70% stenosis of left carotid bulb and moderate stenosis of mid left ICA - patient to follow up w/ vascular surgery on outpatient basis per her most recent neurology visit with Dr. Helms. On physical exam patient does appear to have left sided deficits including weakness in left arm and left leg along with decreased sensation to left side of face. No facial droop observed. Uncertain of patient's baseline left sided residual deficits from previous stroke. [facility] contacted who did recommend TNK however was then found to be contraindicated due to her INR. # TIA with transient left arm greater than left leg weakness and sensation of left facial weakness and numbness TIA versus recrudescence of old symptoms, potentially was triggered by relative hypotension since she was in a hot shower at the time of onset Head CT and Head/neck CTA: proximal-mid right vertebral artery occluded. reconstitution of right vertebral artery at C4-C5 level extending into basilar artery. Left vertebral artery patent. Approximately 50-60% stenosis of proximal right internal carotid artery. approximately 60-70% stenosis of proximal left internal carotid artery. no large vessel occlusion/dissection in head/neck. - unchanged from previous Brain MRI - no acute infarct LDL was 71 currently on atorvastatin well-controlled, blood pressure readings were quite labile in the hospital but generally adequately controlled on Entresto and metoprolol Dr Maxwell consulted - felt this was an ill-defined episode, did not recommend any medication changes she is therapeutic on warfarin with INR goal of 3.03.5 because of mechanical valve, she is already on aspirin 81 mg as well. Consider changing aspirin to Plavix, DAPT would entail very high bleeding risk, sent in basket message to her neurologist Dr. Helms she already has vascular surgery follow-up scheduled soon with Dr. Bell to consider whether she needs inventions on her carotid stenoses. the Meg however only has a 50-60% stenosis and symptoms this time were left-sided #Type 2 Diabetes On Farxiga, Metformin, and Trulicity outpatient. continue these Most recent A1c 11/29/2024 - 6.2% # chronic diastolic heart failure and atrial flutter Echo 09/05/24 - EF 50-55% On Lasix, Entresto, Metoprolol, Amiodarone continue Hold Lasix and Entresto to allow for permissive HTN - if MRI negative can likely resume continue warfarin, INR therapeutic at 3.0 today, followed by anticoagulation clinic #Chronic anticoagulation On Chronic Coumadin therapy for mechanical heart valve INR 4.1 on admission, 3.0 today Per coagulation clinic goal INR 3-3.5 Chronic conditions: Mental Health: Petra she felt well today was ambitious to leave early this morning after seeing the neurologist, independent in the room and at her baseline functional status Notes For Next Care Provider consider replacing aspirin with Plavix, deferring to her usual neurologist has follow-up scheduled with vascular surgery Medication Changes From Visit no changes Admission HPI Per Admitting Provider This is a 59 year old female with past medical history of CVA (06/2024), CHF, Atrial flutter, TIA, mitral valve replacement w/ mechanical valve on chronic Coumadin, SMITA who presented to the ED for stroke like symptoms on 12/01. The patient was seen and examined with family at bedside. Patient reports she was showering this morning and had a sudden onset of left sided weakness in her left arm and left leg. She also felt her left face was numb and droopy. She then reported to the ER for further evaluation. She denies any changes in her vision or hearing. She denies a headache. She still has left sided deficits from previous stroke in June of 2024. She was recently seen by neurology 10/2024 who is referring her to vascular surgery outpatient given her occluded right vertebral artery and 70% stenosis of left carotid bulb and moderate stenosis of mid left ICA. Patient denies CP, SOB, or abdominal pain. Denies any nausea or vomiting. She is compliant with her medications at home. While in the ED, patient underwent a Head CT, CTA and neck CTA that was unchanged from previous. Initially, plan was to initiate TNK but patient's INR was 4.1. (therapeutic range for patient is 3-3.5). Brain MRI is pending. Discharge Exam PHYSICAL EXAMINATION Last 24h vital signs reviewed, see documentation in flowsheet General: comfortable appearing, no distress, she is up ambulatory in the room and dressed in street close HEENT: Normocephalic, atraumatic, pupils round and equal, sclerae anicteric, no conjunctival injection, moist mucus membranes Lungs: Normal respiratory effort. Heart: deferred Abdomen: nondistended Extremities: Warm, dry, well-perfused. No extremity edema. Neuro: Alert and oriented x 4, face symmetric, moves 4 extremities well, wide- based gait but fairly steady, has some subtle baseline left upper extremity left lower extremity weakness she says this is back to her normal level of strength Psych: Normal affect and behavior Discharge Plan Discharge Items Patient Disposition: Home - Self-Care Reason For Visit: STROKE LIKE SYMPTOMS Discharge Diagnosis: Transient L face/arm/leg weakness - recrudescence of old stroke symptoms vs TIA, ASCVD Condition on Discharge: Fair Activity: Resume your previous activity Non-emergency contact: Primary Care Provider and Neurologist Call non-emergency contact if: you have any medication questions and your symptoms worsen Follow-up/Referrals: James Helms MD [Physician] - (The Neurology office will call you with an appointment) Kenney Bell MD [Physician] - Sugar Weber MD [Primary Care Provider] - 12/10/24 11:00 am (Hospital follow up scheduled for December 10, 2024 at 11:00am) Diet: Carb Consistent or DM2 and Heart Healthy Addtl Attending Provider Instructions: You were evaluated for left face/arm/leg weakness Brain MRI was fortunately negative for any new stroke CTA of your head and neck was unchanged from previous - you do have a lot of cerebrovascular disease - its a good idea to follow up with Dr. Bell (vascular surgeon) especially because of the left carotid stenosis. Also follow up with Dr. Helms Continue your usual medications including warfarin/coumadin and follow up with anticoagulation clinic. INR today was 3.0. Other labs were unremarkable It was a pleasure taking care of you in the hospital, Olga Leroy MD Pending Studies at Discharge: No Stand-Alone Forms: My [employer], Smoking Cessation Medications and DC Order Prescriptions: Continued warfarin 5 mg tablet See Rx Instructions PO UD Rx Instructions: 15mg q Monday, 10mg x 6 days per [facility] orally use as directed; (DME) Hospital Bed [facility] [place] See Rx Instructions .Route Qty: 1 0RF Rx Instructions: As directed-HOSPITAL BED, LENGTH OF NEED 99 MONTHS, DX CODE; Z98.890 Proctofoam HC 1-1 % foam 1 applic MS BID PRN (Reason: hemorrhoids) Qty: 10 0RF Atrovent HFA 17 mcg/actuation HFA aerosol inhaler 2 puff INHALATION TID Qty: 12.9 5RF nitroglycerin 0.4 mg tablet, sublingual 0.4 mg sublingual Q5M PRN (Reason: Chest Pain) Qty: 30 6RF Rx Instructions: do not exceed 3 doses per episode (DME) Stair [place] See Rx Instructions .Route .MEDSUPPLY Qty: 1 0RF Rx Instructions: To be installed and used as directed to allow safe ambulation of stairs in patient home metoprolol succinate 25 mg tablet extended release 24 hr 25 mg PO QAM 90 Days Qty: 90 4RF aspirin [Ecotrin Low Strength] 81 mg tablet,delayed release (DR/EC) 81 mg PO QAM 90 Days Qty: 90 4RF dapagliflozin propanediol [Farxiga] 10 mg tablet 10 mg PO DAILY Qty: 30 5RF acetaminophen [Tylenol Extra Strength] 500 mg tablet 1,000 mg PO BID Qty: 60 1RF atorvastatin 40 mg tablet 40 mg PO QPM 90 Days Qty: 90 2RF tramadol 100 mg tablet, ER multiphase 24 hr 100 mg PO HS 90 Days Qty: 90 0RF oxycodone 10 mg tablet 10 mg PO BID PRN (Reason: pain) Qty: 60 0RF chlorhexidine gluconate 0.12 % mouthwash 15 ml mucous membrane TID 30 Days Qty: 120 1RF Rx Instructions: Swish and spit furosemide 40 mg tablet 40 mg PO QPM Qty: 30 5RF Rx Instructions: MAY TAKE AN EXTRA 40MG DAILY, NEEDED, FOR WEIGHT GAIN. diclofenac sodium [Arthritis Pain (diclofenac)] 1 % gel 4 g topical QID PRN (Reason: Pain) Qty: 100 3RF cyclobenzaprine 5 mg tablet 5 mg PO BID PRN (Reason: muscle spasm) 30 Days Qty: 20 1RF Trulicity 4.5 mg/0.5 mL pen injector 4.5 mg subcut Q7D Qty: 2 5RF Rx Instructions: please inject 4.5mg once every MONDAY (DME) Bedside Commode Misc See Rx Instructions .Route Qty: 1 0RF Rx Instructions: As directed metformin 500 mg tablet 1,000 mg PO BID 90 Days Qty: 360 2RF (DME) blood-glucose meter [OneTouch Verio Flex meter] [facility] See Rx Instructions .Route Qty: 1 0RF Rx Instructions: Check blood sugar 1-2 times daily (DME) lancets [OneTouch UltraSoft 2 Lancet] [facility] See Rx Instructions .Route Qty: 100 3RF Rx Instructions: Test blood sugar once daily and as needed (DME) OneTouch Verio test strips Strip See Rx Instructions .Route Qty: 100 3RF Rx Instructions: Test blood sugar once daily and as needed amiodarone 200 mg tablet 200 mg PO DAILY Qty: 30 5RF Entresto 24-26 mg tablet 1 tab PO BID Qty: 60 5RF Nurtec ODT 75 mg tablet,disintegrating 75 mg PO UD PRN (Reason: Migraine Headache) Qty: 8 5RF Rx Instructions: 75 mg PO take one tablet at migraine onset as directed; fluticasone furoate-vilanterol [Breo Ellipta] 100-25 mcg/dose blister with device 1 inh INHALATION QAM docusate sodium 100 mg Capsule 100 mg PO BID Qty: 30 0RF ipratropium-albuterol 0.5 mg-3 mg(2.5 mg base)/3 mL solution for nebulization 3 ml NEB Q6H nicotine [Nicoderm CQ] 21 mg/24 hr Patch 24 Hour 21 mg transdermal QAM Qty: 7 0RF polyethylene glycol 3350 17 gram/dose powder 17 g PO UD PRN (Reason: Constipation) pantoprazole [Protonix] 40 mg tablet,delayed release (DR/EC) 40 mg PO QPM duloxetine [Cymbalta] 30 mg capsule,delayed release(DR/EC) 30 mg PO QAM potassium chloride 20 mEq tablet extended release 20 meq PO QPM Discharge Orders: Discharge Order (Routine); Ordered 12/02/24 Ordered By: Olga E Mariaa Admission Data Admit Date/Time: 12/01/24 16:04 Attending Provider: Olga Leroy Admit Provider: Booker Rodriguez Primary Care Provider: Sugar Weber Other Providers: Booker Rodriguez; Ángel Perry Other Interventions: Discharge Summary Assessment (RN) Last Done: 12/02/24 11:49 Hospital Stay Data Consultations 12/01/24 15:28 ED Decision to Admit Stat 12/01/24 22:21 Consult Neurology Routine Diagnostic Imagining Performed 12/01/24 14:18 CT angio head w con Stat CT angio neck with con Stat CT head/brain wo con Stat 12/01/24 16:23 MRI Brain [MR brain wo con] Stat Pending Results Patient Have Any Pending Studies at Discharge: No Discharge Instructions Given to Patient (Per Discharging Provider) You were evaluated for left face/arm/leg weakness Brain MRI was fortunately negative for any new stroke CTA of your head and neck was unchanged from previous - you do have a lot of cerebrovascular disease - its a good idea to follow up with Dr. Bell (vascular surgeon) especially because of the left carotid stenosis. Also follow up with Dr. Helms Continue your usual medications including warfarin/coumadin and follow up with anticoagulation clinic. INR today was 3.0. Other labs were unremarkable It was a pleasure taking care of you in the hospital, Olga Leroy MD Total Time Total Time Spent Total Time Spent (In Minutes): I personally spent: 40 minutes today on clinical care activities including: reviewing chart notes and vital signs reviewing labs reviewing studies reviewing neurology recommendations examining and counseling the patient discussion with bedside nurse writing orders discharge instructions documentation Coding Level of Care Code 64499 INP/OBS DISCH >30 MIN Diagnoses Stroke-like symptoms R29.90 Carotid stenosis, left I65.22 Type 2 diabetes mellitus with obesity E11.69; E66.9 TIA (transient ischemic attack) G45.9
--- NOTE | 2024-12-02 23:14 | XCELERA ---
[id number] [id number]
[2024-12-03] MEDS ORDERED: WARFARIN SOD 10 MG TAB PO SCH (16:00)
--- NOTE | 2024-12-03 22:15 | Electrocardiogram Report ---
Test Reason : Blood Pressure : */* mmHG Vent. Rate : 71 BPM Atrial Rate : 71 BPM P-R Int : 158 ms QRS Dur : 86 ms QT Int : 434 ms P-R-T Axes : -70 14 118 degrees QTcB Int : 471 ms Unusual P axis, possible ectopic atrial rhythm Minimal voltage criteria for LVH, may be normal variant T wave abnormality, consider lateral ischemia Prolonged QT Abnormal ECG When compared with ECG of 23-Aug-2024 22:29, No significant change Confirmed by Mor Solis ([id number]) on 12/03/2024 10:15:30 PM Referred By: REFERRED SELF Confirmed By: Mor Solis
== END 2024-12-02 12:29 | disposition home or self-care (01) | DRG 69 ==
LOC: ED 14:13 → 2S 16:04 → SUATTDRO 16:04 → 2S 17:31

== ENCOUNTER 2025-08-29 16:34 | Observation (INO) ==
[2025-08-29] MEDS: ALBUT/IPRATROP 3MG/0.5MG NEB 3 ML VIAL NEB STA ×3 (17:12→18:31)
[2025-08-29 17:24] LABS: Hematocrit (blood only) 33.7 % (37.0-47.0); Hemoglobin 10.5 g/dl (12.0-16.0); Immature Granulocytes # (auto) 0.04 K/uL (0.01-0.20); Immature Granulocytes % (auto) 0.4 %; Mean Corpuscular Hemoglobin 29.3 pg (25.0-34.0); Mean Corpuscular Volume 94.1 fL (80.0-100.0); Platelet Count 201 K/uL (130-400); RDW Standard Deviation 59.4 fL (36.4-46.3); Red Blood Count 3.58 M/uL (4.20-5.40); White Blood Count 11.18 K/ul (4.8-10.8)
[2025-08-29 17:41] LABS: Anion Gap 8 (3-11); Blood Urea Nitrogen 19 mg/dl (6-23); Calcium 9.5 mg/dl (8.6-10.3); Carbon Dioxide 26 mmol/L (21-32); Chloride 110 mmol/L (98-107); Glucose 189 mg/dl (70-99(Fasting)); Lipase 22 U/L (11-82); Potassium 4.3 mmol/L (3.5-5.1); Sodium 144 mmol/L (136-145)
--- NOTE | 2025-08-29 17:46 | XRay Report ---
Chest radiograph, one view History: Chest pain Comparison: None Findings: Single AP view of the chest performed. No focal consolidation or pleural effusion. No pneumothorax. The cardiomediastinal silhouette is within normal limits. Mitral valve annuloplasty in place. Median sternotomy wires. Normal pulmonary vascularity. No evidence for lymphadenopathy. No visualized bony or soft tissue abnormality. Impression: Normal chest radiograph Electronically signed by Kwaku Wilson 08-29-2025 5:45 PM
[2025-08-29 17:56] LABS: INR 0.9 (0.9-1.1); Prothrombin Time 9.9 Seconds (9.0-12.0)
[2025-08-29 18:02] LABS: Partial Thromboplastin Time < 20 Seconds (21-31)
[2025-08-29 18:17] LABS: Base Excess VBG 1.5 mEq/L; HCO3 VBG 27 mmol/L; Oxygen Saturation VBG 87.8 %; PCO2 VBG 47 mmHg (38-50); PO2 VBG 56 mmHg; pH VBG 7.37 (7.36-7.41)
[2025-08-29 18:40] LABS: Chlamydia pneumoniae PCR Not Detected (NotDetected); Coronavirus 229E PCR Not Detected (NotDetected); Coronavirus CoV-2 (COVID19)PCR Not Detected (NotDetected); Coronavirus HKU1 PCR Not Detected (NotDetected); Coronavirus NL63 PCR Not Detected (NotDetected); Coronavirus OC43PCR Not Detected (NotDetected); Human Metapneumovirus PCR Not Detected (NotDetected); Parainfluenza Virus 1 PCR Not Detected (NotDetected); Parainfluenza Virus 2 PCR Not Detected (NotDetected); Parainfluenza Virus 3 PCR Not Detected (NotDetected); Parainfluenza Virus 4 PCR Not Detected (NotDetected); Respiratory Syncytial VirusPCR Not Detected (NotDetected); Rhinovirus/Enterovirus PCR DETECTED (NotDetected)
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
[2025-08-29] MEDS ORDERED: POLYETHYLENE (MIRALAX) 17 GM PACK PO PRN (19:12)
[2025-08-29 19:44] LABS: Magnesium 2.2 mg/dl (1.7-2.4)
[2025-08-29] MEDS: AZITHROMYCIN 500 MG/255 ML BAG IV SCH (19:51)
[2025-08-29] MEDS: MAGNESIUM SULFATE / D5W 1 GM/100 ML BAG IV SCH (19:51)
[2025-08-29] MEDS: SODIUM CHLOR 7% 4 ML NEB INH SCH (20:52)
[2025-08-29] MEDS ORDERED: GLUCOSE 40% GEL 15 GM TUBE PO PRN (21:15)
[2025-08-29] MEDS ORDERED: GLUCAGON FOR INJ 1 MG VIAL SQ PRN (21:15)
[2025-08-29] MEDS ORDERED: GLUCOSE 10 TAB/TUBE PO PRN (21:15)
[2025-08-29] MEDS ORDERED: DEXTROSE 50% 50 ML SYRINGE IV PRN (21:15)
[2025-08-29] MEDS ORDERED: ACETAMINOPHEN 500 MG TAB PO PRN (21:15)
[2025-08-29] MEDS ORDERED: PHARMACY GLYCEMIC MGMT CONSULT PRN (21:15)
[2025-08-29] MEDS ORDERED: CARBOHYDRATES FOR HYPOGLYCEMIA PO PRN (21:15)
[2025-08-29] MEDS: ENOXAPARIN 100 MG/1ML SYR SQ SCH (22:03)
[2025-08-29] MEDS: VALSARTAN/SACUBITRIL 26/24MG TAB PO SCH (22:04)
[2025-08-29] MEDS: guaiFENesin 600 MG TABCR PO SCH (22:04)
[2025-08-29] MEDS: FUROSEMIDE 40 MG TAB PO SCH (22:04)
[2025-08-29] MEDS: ATORVASTATIN 40 MG TAB PO SCH (22:05)
[2025-08-29] MEDS: POTASSIUM CHLORIDE CRTAB 20 MEQ TABCR PO SCH (22:09)
[2025-08-29] MEDS: DOCUSATE SODIUM 100 MG CAP PO SCH (22:09)
[2025-08-29 22:24] LABS: Appearance Urine Clear (Clear); Glucose Urine UA 3+ (Negative)
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
[2025-08-29] MEDS: INSULIN HUMAN REGULAR PER UNIT 5 UNITS in SYRINGE 4.95 ML IV STA (22:38)
[2025-08-29] MEDS: CYCLOBENZAPRINE HCL 5 MG TAB PO PRN (22:38)
[2025-08-29] MEDS: ACETAMINOPHEN 500 MG TAB PO PRN (22:39)
[2025-08-29 23:13] LABS: Amphetamines+Metham, Urine Neg (Neg); MDMA (Ecstacy), Urine Neg (Neg); Marijuana, Urine Neg (Neg)
[2025-08-29] MEDS: LANTUS PER UNIT CHARGE SQ SCH (23:30)
[2025-08-29] MEDS: INSULIN ASPART PER UNIT CHARGE SC SCH (23:31)
[2025-08-30] MEDS: ALBUT/IPRATROP 3MG/0.5MG NEB 3 ML VIAL INH SCH (00:43)
[2025-08-30] MEDS: INSULIN ASPART PER UNIT CHARGE SC SCH (04:43)
[2025-08-30 07:27] LABS: Hematocrit (blood only) 31.6 % (37.0-47.0); Hemoglobin 9.9 g/dl (12.0-16.0); Immature Granulocytes # (auto) 0.05 K/uL (0.01-0.20); Immature Granulocytes % (auto) 0.4 %; Mean Corpuscular Hemoglobin 29.3 pg (25.0-34.0); Mean Corpuscular Volume 93.5 fL (80.0-100.0); Platelet Count 186 K/uL (130-400); RDW Standard Deviation 58.3 fL (36.4-46.3); Red Blood Count 3.38 M/uL (4.20-5.40); White Blood Count 11.15 K/ul (4.8-10.8)
[2025-08-30] MEDS: METOPROLOL SUCC 25MG EXT REL TAB PO SCH (07:41)
[2025-08-30 07:42] LABS: Anion Gap 6.0 (3-11); Blood Urea Nitrogen 16.0 mg/dl (6-23); Calcium 9.2 mg/dl (8.6-10.3); Carbon Dioxide 27.0 mmol/L (21-32); Chloride 107.0 mmol/L (98-107); Creatinine Clr Calc Pharmacy 103.9 ml/min; Glucose 168.0 mg/dl (70-99(Fasting)); Magnesium 2.3 mg/dl (1.7-2.4); Potassium 4.5 mmol/L (3.5-5.1); Sodium 140.0 mmol/L (136-145)
[2025-08-30] MEDS: ASPIRIN 81 MG ECTAB PO SCH (08:08)
[2025-08-30] MEDS: FLUTICASONE/VILANTEROL 100/25MCG 14 PUFFS/INHALER INH SCH (08:09)
[2025-08-30] MEDS: NICOTINE 21 MG/24 HR TDSY TD SCH (08:09)
[2025-08-30] MEDS: REMOVE NICODERM PATCH SCH (08:16)
[2025-08-30] MEDS: PNEUMOCOCCAL VACCINE (PCV20) 20-VAL CONJ-DIP CRM/PF 0.5 ML SYR IM ONE (10:29)
[2025-08-30] MEDS: COUGH DROP (SUGAR FREE) LOZ 24 LOZ/1 BOX BUCCAL PRN (10:58)
--- NOTE | 2025-08-30 11:40 | Hospitalist Progress Note ---
Date of Service August 30, 2025 Assessment & Plan (1) Asthma exacerbation in COPD: Plan: Acute asthmaCOPD overlap exacerbation due to viral pneumonia BioFire positive for entero-/rhinovirus Patient with diffuse wheezing throughout all lung mohr. Significant cough. 7 total days of symptoms With daily tobacco use Breo continued DuoNebs as needed Hypertonic saline continued Magnesium 2 g IV ordered for severe exacerbation Steroids continued 3 times daily, wean as clinically tolerated Azithromycin 3-day course ordered for acute exacerbation with underlying COPD No signs of lobar pneumonia on chest x-ray Continues to be diffusely wheezy, frequent cough, and slightly increased work of breathing 08/30. Will continue steroids 3 times daily, narrow to twice daily if progressing on 08/31 Cough drops added SMITA CPAP as noted Heart failure with preserved ejection fraction, MVR, A-flutter Increased BNP, no pulmonary edema on x-ray and no lower extremity edema is present. No significant JVD Weight is 90 kg, dry weight is around 89-90 kg Home diuretics continued Troponin minimally elevated, no ongoing chest pain. Suspect demand. EKG without acute territorial ischemic changes. No acute T wave/ST changes Continue metoprolol, aspirin, Entresto Anticoagulation continued for chemical valve replacement and A-flutter. Of note her INR 0.9, she has not been on Eliquis so she was pending a back injection however she has been reliably taking Lovenox. She last took Lovenox at 9 AM on 08/29. Will continue 1 mg/kg Lovenox twice daily therapy at this time D-dimer is not elevated, no evidence of DVT/PE Hypertension Intermittently hypertensive. Medications continued. Does correlate with pain, increased pain in her back from coughing and with her injection delay. P.o. options temporarily switched to scaled IV analgesics Chronic low back pain History of lumbar disc disease, s/p surgical intervention with orthopedic spine Has been evaluated for ongoing back pain with some chronic paresthesias/numbness of the left dorsal foot and intact strength but with some qualitative left leg weakness. Not recommended for surgery. No strength/sensory change recently. No urinary retention. Her back pain was felt to be due to lumbar disc disease and she is following with [facility] pain management for injections however this was canceled today due to her respiratory illness and she was referred to the ER Continue home multimodal pain control. She is also on systemic steroids for asthma exacerbation Voltaren added Type II DM Switch to basal bolus while admitted Glucose checks AC/at bedtime Goal BSG 591087 Tobacco abuse Cessation recommended. Patch continued DVT prophylaxis: Anticoagulated Disposition: PCU due to severe exacerbation CODE STATUS: Full code Diet: Heart healthy/DM2 (2) Back pain: (3) Atrial flutter with rapid ventricular response: (4) History of tobacco abuse: (5) Acute heart failure with preserved ejection fraction: (6) Type 2 diabetes mellitus with obesity: (7) Anxiety: (8) SMITA (obstructive sleep apnea): Admission and Anticipated Discharge Date Admission Date: August 29, 2025 Subjective Seen at the bedside this morning. Continues to have a vigorous cough. Shortness of breath is slightly improved, not short of breath at time of assessment but notes that she is wheezing a lot and this has not changed very much No fevers or chills Minimal sputum production, feels congestion in her chest She is worried about delaying her epidural injection. Continues to have back pain. Intermittently hypertensive which correlates with pain which is worse when coughing. Would like Nixon ordered Physical Exam Physical Exam: General: A&Ox3. NAD. Cooperative. HEENT: Atraumatic, normocephalic. Vision/hearing. PERLAA. EoM intact without nystagmus Pulm: Diffuse rhonchi and wheezing through all mohr minimal improvement compared to prior consistent cough. SpO2 95-8% at bedside Cardiac: RRR, +sm. Radial pulses intact and symmetrical. Abdominal: Nontender, nondistended, soft. BS present. Ext: warm, dry Results & Data Results & Data Vital Signs (Past 12 Hours) Vital Signs Temp Pulse Pulse Resp BP Pulse Ox O2 Del Method 08/30/25 11:26 36.8 C 71 173/76 H 95 Room Air 08/30/25 09:30 183/82 H 08/30/25 09:00 Room Air 08/30/25 08:52 61 08/30/25 07:49 36.5 C 67 20 183/81 H 99 Room Air 08/30/25 07:05 68 18 96 Room Air 08/30/25 03:47 62 154/69 H 08/30/25 03:42 60 17 97 08/30/25 02:24 36.5 C 62 16 196/83 H 100 CPAP 08/30/25 00:44 60 17 98 CPAP 08/29/25 23:50 71 PG Care Time/CCT Total # of Minutes Spent Total Time Spent with Patient: Total time spent is greater than 50% in coordination of care (as documented) at patient's floor/unit and/or counseling patient: Coding Level of Care Code 56403 SUB INP/OBS CARE 3/50MIN Diagnoses Asthma exacerbation in COPD J44.1; J45.901 Back pain M54.42; M54.41; G89.29 Back pain laterality: bilateral Back pain location: low back pain Chronicity: chronic Sciatica laterality: bilateral sciatica Sciatica presence: with sciatica Atrial flutter with rapid ventricular response I48.92 History of tobacco abuse Z87.891 Acute heart failure with preserved ejection fraction I50.31 Type 2 diabetes mellitus with obesity E11.69; E66.9 Anxiety F41.9 SMITA (obstructive sleep apnea) G47.33 (2) Back pain Back pain laterality: bilateral Back pain location: low back pain Chronicity: chronic Sciatica laterality: bilateral sciatica Sciatica presence: with sciatica Qualified Code(s): M54.42 - Lumbago with sciatica, left side; M54.41 - Lumbago with sciatica, right side; G89.29 - Other chronic pain
--- NOTE | 2025-08-30 13:58 | Pharmacy Report ---
Pharmacy Glycemic Short Note 2 - Date of Service August 30, 2025 - Glycemic Short BSG Results (Last 24 hours): 08/29/25 08/29/25 08/29/25 17:03 21:45 21:47 Glucose 189 H POC Glucose 401 H* 383 H* 08/29/25 08/30/25 08/30/25 23:15 03:46 07:08 Glucose 168 H POC Glucose 276 H 167 H 08/30/25 08/30/25 07:24 11:02 Glucose POC Glucose 143 H 154 H OUTPATIENT ANTIDIABETIC REGIMEN: * trulicity 4.5 mg SQ weekly, metformin 1 gm bid, farxiga 10 mg po daily ASSESSMENT: * 59 year old admitted for COPD exacerbation. Pharmacy consulted for glycemic management. Patient started on high dose steroids. Will trial Lantus 8 units bid to cover steroid effects and start novolog weight based stress 2 dosing. PLAN FOR INPATIENT GLYCEMIC CONTROL: * Hold outpatient oral diabetes medications * Basal insulin * Lantus 8 units SQ BID * Bolus insulin * NovoLog per scale ACHS or Q6hrs while NPO * Goal Range: Low 110 mg/dL - High 140 mg/dL * Correction Factor: 25 mg/dL/unit * Nutritional / Prandial insulin per carb ratio of 1 unit per 8 grams CHO consumed
[2025-08-30] MEDS: DICLOFENAC SOD 1% GEL 100 GM TUBE EXT PRN (16:00)
[2025-08-30] MEDS: MoRPHine SULFATE 4 MG/ML 1 ML CARP\\VIAL IV PRN (16:00)
[2025-08-30] MEDS: ENOXAPARIN 100 MG/1ML SYR SQ SCH (21:29)
[2025-08-31 06:58] LABS: Hematocrit (blood only) 36.4 % (37.0-47.0); Hemoglobin 11.2 g/dl (12.0-16.0); Immature Granulocytes # (auto) 0.08 K/uL (0.01-0.20); Immature Granulocytes % (auto) 0.6 %; Mean Corpuscular Hemoglobin 28.9 pg (25.0-34.0); Mean Corpuscular Volume 93.8 fL (80.0-100.0); Platelet Count 194 K/uL (130-400); RDW Standard Deviation 58.9 fL (36.4-46.3); Red Blood Count 3.88 M/uL (4.20-5.40); White Blood Count 14.33 K/ul (4.8-10.8)
[2025-08-31 07:22] LABS: Anion Gap 5.0 (3-11); Blood Urea Nitrogen 20.0 mg/dl (6-23); Calcium 9.2 mg/dl (8.6-10.3); Carbon Dioxide 28.0 mmol/L (21-32); Chloride 107.0 mmol/L (98-107); Creatinine Clr Calc Pharmacy 104.3 ml/min; Glucose 161.0 mg/dl (70-99(Fasting)); Potassium 4.5 mmol/L (3.5-5.1); Sodium 140.0 mmol/L (136-145)
--- NOTE | 2025-08-31 11:15 | Hospitalist Progress Note ---
Date of Service August 31, 2025 Assessment & Plan (1) Asthma exacerbation in COPD: Plan: Acute asthmaCOPD overlap exacerbation due to viral pneumonia BioFire positive for entero-/rhinovirus Patient with diffuse wheezing throughout all lung mohr. Significant cough. 7 total days of symptoms With daily tobacco use Breo continued DuoNebs as needed Hypertonic saline continued Magnesium 2 g IV given on admission with increased rate for severe exacer bation Azithromycin 3-day course ordered on admission for acute exacerbation with underlying COPD, severe exacerbation, and ongoing tobacco use all with increased risk of complications. She do not have signs of lobar pneumonia on x-ray. Wheezing is not completely resolved however patient has had dramatic clinical improvement 08/31. Remains with some scattered expiratory wheezes. Work of loi thing overall greatly improved. Will wean steroids from 3 times daily to twice daily, and if she remains stable transition to prednisone at discharge hopefully 09/01. I did attempt to call her pain clinic at [phone] Dr. Randhawa per her request to review that her exacerbation was viral and she does not show signs of bacterial infection requiring ongoing antibiotics, office was not open on 08/31. SMITA CPAP as noted Heart failure with preserved ejection fraction, MVR, A-flutter Increased BNP, no pulmonary edema on x-ray and no lower extremity edema is present. No significant JVD Weight is 90 kg, dry weight is around 89-90 kg Home diuretics continued Troponin minimally elevated, no ongoing chest pain. Suspect demand. EKG without acute territorial ischemic changes. No acute T wave/ST changes Continue metoprolol, aspirin, Entresto Anticoagulation continued for chemical valve replacement and A-flutter. Of note her INR 0.9, she has not been on Eliquis so she was pending a back injection however she has been reliably taking Lovenox. She last took Lovenox at 9 AM on 08/29. Will continue 1 mg/kg Lovenox twice daily therapy at this time. D-dimer is not elevated, no evidence of DVT/PE Hypertension Intermittently hypertensive slightly improved with addition of amlodipine. Has a secondary pain component Chronic low back pain History of lumbar disc disease, s/p surgical intervention with orthopedic spine Has been evaluated for ongoing back pain with some chronic paresthesias/numbness of the left dorsal foot and intact strength but with some qualitative left leg weakness. Not recommended for surgery. No strength/sensory change recently. No urinary retention. Her back pain was felt to be due to lumbar disc disease and she is following with [facility] pain management for injections however this was canceled today due to her respiratory illness and she was referred to the ER Continue home multimodal pain control. She is also on systemic steroids for asthma exacerbation Voltaren continued Type II DM Switch to basal bolus while admitted Glucose checks AC/at bedtime Goal BSG 288768 Tobacco abuse Cessation recommended. Patch continued DVT prophylaxis: Anticoagulated Disposition: PCU due to severe exacerbation CODE STATUS: Full code Diet: Heart healthy/DM2 (2) Back pain: (3) Atrial flutter with rapid ventricular response: (4) History of tobacco abuse: (5) Acute heart failure with preserved ejection fraction: (6) Type 2 diabetes mellitus with obesity: (7) Anxiety: (8) SMITA (obstructive sleep apnea): Admission and Anticipated Discharge Date Admission Date: August 29, 2025 Subjective Seen at bedside. Clinical appearance dramatically improved compared to prior. Wheezing not completely resolved but greatly improved about 90% better. Cough persistent but improving. Work of breathing improved. No fever/chills. Did have significant pain overnight but notes the Voltaren is helping. Remains intermittently hypertensive somewhat obscured by pain, slight downtrend with addition of amlodipine. Physical Exam Physical Exam: General: A&Ox3. NAD. Cooperative. HEENT: Atraumatic, normocephalic. Vision/hearing. PERLAA. EoM intact without nystagmus Pulm: Scattered rhonchi throughout all mohr, wheezing dramatically improved although not completely resolved. Scattered end expiratory wheezes bilaterally. Coughs periodically on exam, with reduced frequency compared to prior Cardiac: RRR, +sm. Radial pulses intact and symmetrical. Abdominal: Nontender, nondistended, soft. BS present. Ext: warm, dry. Moving extremities equally Results & Data Results & Data Vital Signs (Past 12 Hours) Vital Signs Temp Pulse Pulse Resp BP Pulse Ox O2 Del Method 08/31/25 08:00 Room Air 08/31/25 07:45 36.7 C 75 18 188/84 H 96 Room Air 08/31/25 07:06 71 18 96 Room Air 08/31/25 03:06 36.4 C L 62 18 160/79 H 97 Room Air 08/31/25 02:02 66 15 98 08/31/25 02:00 80 21 97 CPAP 08/31/25 01:04 71 PG Care Time/CCT Total # of Minutes Spent Total Time Spent with Patient: Total time spent is greater than 50% in coordination of care (as documented) at patient's floor/unit and/or counseling patient: Coding Level of Care Code 84869 SUB INP/OBS CARE 3/50MIN Diagnoses Asthma exacerbation in COPD J44.1; J45.901 Back pain M54.42; M54.41; G89.29 Back pain laterality: bilateral Back pain location: low back pain Chronicity: chronic Sciatica laterality: bilateral sciatica Sciatica presence: with sciatica Atrial flutter with rapid ventricular response I48.92 History of tobacco abuse Z87.891 Acute heart failure with preserved ejection fraction I50.31 Type 2 diabetes mellitus with obesity E11.69; E66.9 Anxiety F41.9 SMITA (obstructive sleep apnea) G47.33 (2) Back pain Back pain laterality: bilateral Back pain location: low back pain Chronicity: chronic Sciatica laterality: bilateral sciatica Sciatica presence: with sciatica Qualified Code(s): M54.42 - Lumbago with sciatica, left side; M54.41 - Lumbago with sciatica, right side; G89.29 - Other chronic pain
[2025-09-01] MEDS: LANTUS PER UNIT CHARGE SQ SCH ×2 (08:27→21:13)
[2025-09-01] MEDS: MoRPHine SULFATE 4 MG/ML 1 ML CARP\\VIAL IV PRN (08:31)
[2025-09-01] MEDS: INFLUENZA VACC TS2025-26(6m+)/PF (IIV3) 0.5mL Syr IM ONE (08:43)
--- NOTE | 2025-09-01 09:04 | Electrocardiogram Report ---
Test Reason : Blood Pressure : */* mmHG Vent. Rate : 79 BPM Atrial Rate : 79 BPM P-R Int : 138 ms QRS Dur : 68 ms QT Int : 372 ms P-R-T Axes : * 19 93 degrees QTcB Int : 426 ms Low atrial rhythm Abnormal QRS-T angle, consider primary T wave abnormality Abnormal ECG When compared with ECG of 09-Feb-2025 18:51, QT has shortened Confirmed by Girish Jones ([id number]) on 09/01/2025 9:03:56 AM Referred By: REFERRED SELF Confirmed By: Girish Jones
[2025-09-01 09:31] LABS: Hematocrit (blood only) 39.5 % (37.0-47.0); Hemoglobin 12.3 g/dl (12.0-16.0); Immature Granulocytes # (auto) 0.08 K/uL (0.01-0.20); Immature Granulocytes % (auto) 0.6 %; Mean Corpuscular Hemoglobin 29.1 pg (25.0-34.0); Mean Corpuscular Volume 93.4 fL (80.0-100.0); Platelet Count 226 K/uL (130-400); RDW Standard Deviation 58.8 fL (36.4-46.3); Red Blood Count 4.23 M/uL (4.20-5.40); White Blood Count 14.17 K/ul (4.8-10.8)
[2025-09-01 10:20] LABS: INR 1.0 (0.9-1.1); Partial Thromboplastin Time 22 Seconds (21-31); Prothrombin Time 10.3 Seconds (9.0-12.0)
[2025-09-01 10:34] LABS: Anion Gap 7.0 (3-11); Calcium 9.0 mg/dl (8.6-10.3); Carbon Dioxide 26.0 mmol/L (21-32); Chloride 106.0 mmol/L (98-107); Potassium 4.6 mmol/L (3.5-5.1); Sodium 139.0 mmol/L (136-145)
[2025-09-01 10:40] LABS: Blood Urea Nitrogen 25.0 mg/dl (6-23); Creatinine Clr Calc Pharmacy 81.2 ml/min; Glucose 230.0 mg/dl (70-99(Fasting))
[2025-09-01] MEDS: BENZONATATE 100 MG CAPSULE PO SCH (12:02)
--- NOTE | 2025-09-01 12:25 | Hospitalist Progress Note ---
Date of Service September 01, 2025 Assessment & Plan (1) Encounter for smoking cessation counseling: (2) COPD (chronic obstructive pulmonary disease): (3) Back pain: Plan Deb Thomson is a 59 Y O Female with PMH of HFpEF, Atrial Flutter with RVR, MVR, Type II DM, SMITA,Chronic Low Back Pain, Type II DM presented with worsening cough, shortness of breath and wheezing . Respiratory Biofire test is positive for Rhino/Entero Virus. She is being admitted for acute exacerbation of Chronic COPD likely 2/2 to viral infection. #Acute exacerbation of chronic COPD 2/2 to viral infection -Came in with worsening cough, wheezing and Shortness of breath -Chest XRwith no acute abnormalities -Biofire positive for Rhino/Entero Virus -IV Methylpred weaned from TID to BID. Plan to gradually taper and oral prednisone on outpatient. -Completed 3 days course of Azithromycin(Ordered for increased wendi of complication given the risk factors although chest XR was negative) -Continue Breo, Duoneb and Hypertonic Saline -For cough-Muconex and Tessalon Perle #HFpEF, MVR, A flutter with RVR -No signs/symptoms of exacerbation currently -Continue home diuretics: Furosemide 40mg qPM -Continue Entresto, Metoprolol and Farxiga -Troponin 21>22> 13/ EKG with no acute changes. Patient denies chest pain. Suspect demand ischemia on admission. - Anticoagulation continued for chemical valve replacement and A-flutter. Of note her INR 0.9, she has not been on Eliquis so she was pending a back injection however she has been reliably taking Lovenox. She last took Lovenox at 9 AM on 08/29. Will continue 1 mg/kg Lovenox twice daily therapy at this time. D-dimer is not elevated, no evidence of DVT/PE #Hypertension -BP in the range of 140 over 80 today. -Controlled with Amlodipine 5mg qAM which was added on admission -Hydralazine PRN ordered #SMITA -Continue CPAP #Chronic Low Back pain - History of lumbar disc disease, s/p surgical intervention with orthopedic spine Has been evaluated for ongoing back pain with some chronic paresthesias/numbness of the left dorsal foot and intact strength but with some qualitative left leg weakness. Not recommended for surgery. No strength/sensory change recently. No urinary retention. Her back pain was felt to be due to lumbar disc disease and she is following with [facility] pain management for injections . She has scheduled appointment on Monday for steroids injection Continue home multimodal pain control. She is also on systemic steroids for asthma exacerbation Voltaren continued #Type II DM -Switch to basal bolus while admitted Glucose checks AC/at bedtime Goal BSG 380012 #Tobacco abuse Cessation recommended. Patch continued #Anxiety -Continue Xanax #DVT Prophylaxis: Lovenox 100mg BID(Therapeutic dose) #Code:Full #Dispo:Med/Surg with Tele Admission and Anticipated Discharge Date Admission Date: August 29, 2025 Supervising Physician Co-Signing Physician Notes ATTESTATION I also saw the patient and confirmed duran portions of the history and exam. I agree with the impression and plan in the resident documentation, and as summarized below. Upon our exam this afternoon, the patient is seated in bed. Her main complaint is low back pain. She notes increased productive cough today. Per nursing at bedside, the wheezing to her was more pronounced today when compared to yesterday. EXAM Vital signs as noted She is alert and oriented. No acute distress appreciated. Lungs with diffuse expiratory wheezing in all mohr (Respiratory therapy is readying to give her a neb treatment) Cardiovascular with regular rate DATA Labs WBC 14.17, hemoglobin 12.3 BUN 25, creatinine 0.87 IMPRESSION & PLAN asthma exacerbation and COPD, positive BioFire rhino/enterovirus heart failure with preserved ejection fraction hypertension type 2 diabetes tobacco abuse I think she continues to improve. The variability in her lung exam probably depends on how recently she had a nebulizer treatment. Her main concern is not postponing her pain management injection for her low back pain. I do not think she is quite ready for discharge today, but we are getting closer. Continue current plan; reassess in a.m. Additional per resident documentation Morgan Boyd was seen and evaluated in the bedside this morning. She reports that she feels significantly better compared to when she came in. Breathing is more easy. Still has distressing cough. She has appointment for steroid injection for her back pain on Monday. She exp ressed her wish to get discharged before Monday. Review of Systems Review of Systems: As per HPI Physical Exam Physical Exam: General: A&Ox3. NAD. Cooperative. HEENT: Atraumatic, normocephalic. Vision/hearing. PERLAA. EoM intact without nystagmus Pulm: Scattered rhonchi throughout all mohr, wheezing dramatically improved although not completely resolved. Scattered end expiratory wheezes bilaterally. Coughs periodically on exam, with reduced frequency compared to prior Cardiac: RRR, +sm. Radial pulses intact and symmetrical. Abdominal: Nontender, nondistended, soft. BS present. Ext: warm, dry. Moving extremities equally Results & Data Results & Data Vital Signs (Past 12 Hours) Vital Signs Temp Pulse Pulse Resp BP Pulse Ox O2 Del Method 09/01/25 03:32 36.8 C 70 20 154/76 H 94 Room Air 09/01/25 02:28 71 16 97 Room Air 09/01/25 00:00 76 08/31/25 23:50 36.5 C 73 22 161/83 H 96 CPAP 08/31/25 22:15 80 16 99 08/31/25 21:02 Room Air 08/31/25 19:34 86 16 98 Room Air 08/31/25 19:06 36.8 C 82 20 177/84 H 96 Room Air Resident Activity Tracking Resident Involvement: Resident Care Provided Care Provided: Adult Hospital Medicine (3) Back pain Back pain laterality: midline Back pain location: low back pain Chronicity: acute
--- NOTE | 2025-09-01 15:12 | Pharmacy Report ---
Pharmacy Glycemic Short Note 2 - Date of Service September 01, 2025 - Glycemic Short BSG Results (Last 24 hours): 08/31/25 08/31/25 09/01/25 16:07 20:19 07:12 Glucose POC Glucose 199 H 281 H 140 H 09/01/25 09/01/25 09:12 11:15 Glucose 230 H POC Glucose 234 H OUTPATIENT ANTIDIABETIC REGIMEN: * trulicity 4.5 mg SQ weekly, metformin 1 gm bid, farxiga 10 mg po daily ASSESSMENT: 09/01: * Deb received a total of 46 units of insulin yesterday (16 units were basal and 30 units were bolus). BSGS were [phone]/dL. * Fasting BSG was 140mg/dL. Increased AM Lantus by ~20% since HS BSG reading have been > 200mg/dL. * Will continue bolus insulin with parameters previously ordered for now since steroid was reduced from q 8 hours to q 12 hours, so expect insulin needs will start to decrease. 08/30: * 59 year old admitted for COPD exacerbation. Pharmacy consulted for glycemic management. Patient started on high dose steroids. Will trial Lantus 8 units bid to cover steroid effects and start novolog weight based stress 2 dosing. PLAN FOR INPATIENT GLYCEMIC CONTROL: * Hold outpatient oral diabetes medications * Basal insulin * Lantus 10 units SQ Q AM and 8 units Q PM * Bolus insulin * NovoLog per scale ACHS or Q6hrs while NPO * Goal Range: Low 110 mg/dL - High 140 mg/dL * Correction Factor: 25 mg/dL/unit * Nutritional / Prandial insulin per carb ratio of 1 unit per 8 grams CHO consumed
[2025-09-02 06:06] LABS: Hematocrit (blood only) 33.9 % (37.0-47.0); Hemoglobin 10.7 g/dl (12.0-16.0); Immature Granulocytes # (auto) 0.13 K/uL (0.01-0.20); Immature Granulocytes % (auto) 0.8 %; Mean Corpuscular Hemoglobin 29.4 pg (25.0-34.0); Mean Corpuscular Volume 93.1 fL (80.0-100.0); Platelet Count 215 K/uL (130-400); RDW Standard Deviation 59.8 fL (36.4-46.3); Red Blood Count 3.64 M/uL (4.20-5.40); White Blood Count 16.05 K/ul (4.8-10.8)
[2025-09-02 06:24] LABS: Anion Gap 5.0 (3-11); Blood Urea Nitrogen 26.0 mg/dl (6-23); Calcium 8.4 mg/dl (8.6-10.3); Carbon Dioxide 27.0 mmol/L (21-32); Chloride 109.0 mmol/L (98-107); Creatinine Clr Calc Pharmacy 78.9 ml/min; Glucose 124.0 mg/dl (70-99(Fasting)); Potassium 4.3 mmol/L (3.5-5.1); Sodium 141.0 mmol/L (136-145)
--- NOTE | 2025-09-02 06:49 | Hospitalist Progress Note ---
Date of Service September 02, 2025 Assessment & Plan (1) Encounter for smoking cessation counseling: (2) COPD (chronic obstructive pulmonary disease): (3) Back pain: Plan Deb Thomson is a 59 Y O Female with PMH of HFpEF, Atrial Flutter with RVR, MVR, Type II DM, SMITA,Chronic Low Back Pain, Type II DM presented with worsening cough, shortness of breath and wheezing . Respiratory Biofire test is positive for Rhino/Entero Virus. She is being admitted for acute exacerbation of Chronic COPD likely 2/2 to viral infection. #Acute exacerbation of chronic COPD 2/2 to viral infection -Came in with worsening cough, wheezing and Shortness of breath -Chest XRwith no acute abnormalities -Biofire positive for Rhino/Entero Virus -Will switch IV Methylpred to oral and see how see does tomorrow. -Completed 3 days course of Azithromycin(Ordered for increased wendi of complication given the risk factors although chest XR was negative) -Continue Breo, Duoneb and Hypertonic Saline -For cough-Muconex and Tessalon Perle #HFpEF, MVR, A flutter with RVR -No signs/symptoms of exacerbation currently -Continue home diuretics: Furosemide 40mg qPM -Continue Entresto, Metoprolol and Farxiga -Troponin 21>22> 13/ EKG with no acute changes. Patient denies chest pain. Suspect demand ischemia on admission. - Anticoagulation continued for chemical valve replacement and A-flutter. Of note her INR 0.9, she has not been on Eliquis so she was pending a back injection however she has been reliably taking Lovenox. She last took Lovenox at 9 AM on 08/29. Will continue 1 mg/kg Lovenox twice daily therapy at this time. D-dimer is not elevated, no evidence of DVT/PE #Hypertension -BP in the range of 140 over 80 today. -Controlled with Amlodipine 5mg qAM which was added on admission -Hydralazine PRN ordered #SMITA -Continue CPAP #Chronic Low Back pain - History of lumbar disc disease, s/p surgical intervention with orthopedic spine Has been evaluated for ongoing back pain with some chronic paresthesias/numbness of the left dorsal foot and intact strength but with some qualitative left leg weakness. Not recommended for surgery. No strength/sensory change recently. No urinary retention. Her back pain was felt to be due to lumbar disc disease and she is following with [facility] pain management for injections . She has scheduled appointment on Monday for steroids injection Continue home multimodal pain control. She is also on systemic steroids for asthma exacerbation Voltaren continued -Has Scheduled Tylenol #Type II DM -Switch to basal bolus while admitted Glucose checks AC/at bedtime Goal BSG [id number] #Tobacco abuse Cessation recommended. Patch continued #Anxiety -Continue Xanax #DVT Prophylaxis: Lovenox 100mg BID(Therapeutic dose) #Code:Full #Dispo:Med/Surg with Tele Admission and Anticipated Discharge Date Admission Date: August 29, 2025 Supervising Physician Co-Signing Physician Notes ATTESTATION I also saw the patient and confirmed duran portions of the history and exam. I agree with the impression and plan in the resident documentation, and as summarized below. Upon our late morning exam, the patient is seated in bed; she has been served her lunch. 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 Patient notes feeling better today in terms of her breathing. She still complains of low back pain that was partial responsive to Tylenol provided earlier this morning. EXAM Vital signs as noted, slightly hypertensive this morning. She is alert and oriented. No acute distress appreciated. Lungs with just very end expiratory, faint wheeze. Marked improvement compared to yesterday. Cardiovascular with regular rate DATA Labs WBC 16.05, hemoglobin 10.7 BUN 26, creatinine 0.9 IMPRESSION & PLAN asthma exacerbation and COPD, positive BioFire rhino/enterovirus heart failure with preserved ejection fraction hypertension type 2 diabetes tobacco abuse Pulmonary status markedly improved today; I suspect she is at her baseline. Her main concern is not postponing her pain management injection for her low back pain. She would like to defer discharge until tomorrow; this seems reasonable as we can switch her over to p.o. prednisone in the a.m. Tylenol for pain relief. Note the patient remains on a Lovenox bridge (holding warfarin given pending pain management injection). Additional per resident documentation Subjective Deb was seen and evaluated in the bedside this morning. She reports that she feels significantly better today. Breathing is more easy. Cough is better. Review of Systems Review of Systems: As per HPI Physical Exam Physical Exam: General: A&Ox3. NAD. Cooperative. HEENT: Atraumatic, normocephalic. Vision/hearing. PERLAA. EoM intact without nystagmus Pulm: Scattered rhonchi throughout all mohr, wheezing dramatically improved although not completely resolved. Scattered end expiratory wheezes bilaterally. Coughs periodically on exam, with reduced frequency compared to prior Cardiac: RRR, +sm. Radial pulses intact and symmetrical. Abdominal: Nontender, nondistended, soft. BS present. Ext: warm, dry. Moving extremities equally Results & Data Results & Data Vital Signs (Past 12 Hours) Vital Signs Temp Pulse Pulse Resp BP BP Pulse Ox 09/02/25 02:21 36.5 C 73 18 162/78 H 95 09/02/25 02:01 82 18 95 09/01/25 23:11 74 25 H 95 09/01/25 22:14 36.7 C 83 18 173/80 H 93 09/01/25 22:04 77 09/01/25 19:39 78 18 100 09/01/25 19:24 36.5 C 82 18 136/77 97 O2 Del Method FiO2 09/02/25 02:21 Room Air 09/02/25 02:01 Room Air 09/01/25 23:11 21 09/01/25 22:14 Room Air 09/01/25 22:04 09/01/25 19:39 Room Air 09/01/25 19:24 Room Air Resident Activity Tracking Resident Involvement: Resident Care Provided Care Provided: Adult Hospital Medicine (3) Back pain Back pain laterality: midline Back pain location: low back pain Chronicity: acute
[2025-09-02] MEDS: ACETAMINOPHEN 1,000 MG/100 ML VIAL IV SCH (08:39)
[2025-09-02 11:26] LABS: Hydrocodone Urine NEGATIVE ng/mL (<50); Hydromor Urine NEGATIVE ng/mL (<50); Noroxycodone Urine 434 ng/mL (<50); Oxymorph Urine 400 ng/mL (<50)
[2025-09-02] MEDS ORDERED: ACETAMINOPHEN 500 MG TAB PO PRN (14:00)
[2025-09-02] MEDS: ONDANSETRON INJ 2 MG/ML 2 ML VIAL IV PRN (15:07)
[2025-09-03] MEDS: predniSONE 20 MG TAB PO SCH (05:33)
--- NOTE | 2025-09-03 07:36 | Hospitalist Progress Note ---
Date of Service September 03, 2025 Assessment & Plan (1) Encounter for smoking cessation counseling: (2) COPD (chronic obstructive pulmonary disease): (3) Back pain: Plan Deb Thomson is a 59 Y O Female with PMH of HFpEF, Atrial Flutter with RVR, MVR, Type II DM, SMITA,Chronic Low Back Pain, Type II DM presented with worsening cough, shortness of breath and wheezing . Respiratory Biofire test is positive for Rhino/Entero Virus. She is being admitted for acute exacerbation of Chronic COPD likely 2/2 to viral infection. #Acute exacerbation of chronic COPD 2/2 to viral infection -Came in with worsening cough, wheezing and Shortness of breath -Chest XRwith no acute abnormalities -Biofire positive for Rhino/Entero Virus -Will switch IV Methylpred to oral and see how see does tomorrow. -Completed 3 days course of Azithromycin(Ordered for increased wendi of complication given the risk factors although chest XR was negative) -Continue Breo, Duoneb and Hypertonic Saline -For cough-Muconex and Tessalon Perle #HFpEF, MVR, A flutter with RVR -No signs/symptoms of exacerbation currently -Continue home diuretics: Furosemide 40mg qPM -Continue Entresto, Metoprolol and Farxiga -Troponin 21>22> 13/ EKG with no acute changes. Patient denies chest pain. Suspect demand ischemia on admission. - Anticoagulation continued for chemical valve replacement and A-flutter. Of note her INR 0.9, she has not been on Eliquis so she was pending a back injection however she has been reliably taking Lovenox. She last took Lovenox at 9 AM on 08/29. Will continue 1 mg/kg Lovenox twice daily therapy at this time. D-dimer is not elevated, no evidence of DVT/PE #Hypertension -BP in the range of 140 over 80 today. -Controlled with Amlodipine 5mg qAM which was added on admission -Hydralazine PRN ordered #SMITA -Continue CPAP #Chronic Low Back pain - History of lumbar disc disease, s/p surgical intervention with orthopedic spine Has been evaluated for ongoing back pain with some chronic paresthesias/numbness of the left dorsal foot and intact strength but with some qualitative left leg weakness. Not recommended for surgery. No strength/sensory change recently. No urinary retention. Her back pain was felt to be due to lumbar disc disease and she is following with [facility] pain management for injections . She has scheduled appointment on Monday for steroids injection Continue home multimodal pain control. She is also on systemic steroids for asthma exacerbation Voltaren continued -Has Scheduled Tylenol #Type II DM -Switch to basal bolus while admitted Glucose checks AC/at bedtime Goal BSG [id number] #Tobacco abuse Cessation recommended. Patch continued #Anxiety -Continue Xanax #DVT Prophylaxis: Lovenox 100mg BID(Therapeutic dose) #Code:Full #Dispo:Med/Surg with Tele Admission and Anticipated Discharge Date Admission Date: August 29, 2025 Morgan Boyd was seen and evaluated in the bedside this morning. She reports that she feels significantly better today. Breathing is more easy. Cough is better. Review of Systems Review of Systems: As per HPI Physical Exam Physical Exam: General: A&Ox3. NAD. Cooperative. HEENT: Atraumatic, normocephalic. Vision/hearing. PERLAA. EoM intact without nystagmus Pulm: Scattered rhonchi throughout all mohr, wheezing dramatically improved although not completely resolved. Scattered end expiratory wheezes bilaterally. Coughs periodically on exam, with reduced frequency compared to prior Cardiac: RRR, +sm. Radial pulses intact and symmetrical. Abdominal: Nontender, nondistended, soft. BS present. Ext: warm, dry. Moving extremities equally Results & Data Results & Data Vital Signs (Past 12 Hours) Vital Signs Temp Pulse Pulse Resp BP Pulse Ox Pulse Ox 09/03/25 07:10 82 20 97 09/03/25 04:00 36.5 C 74 18 147/73 H 94 09/03/25 02:27 73 14 96 09/02/25 23:47 36.8 C 76 18 148/79 H 98 09/02/25 22:09 70 22 95 09/02/25 20:00 94 O2 Del Method O2 Del Method 09/03/25 07:10 Room Air 09/03/25 04:00 Room Air 09/03/25 02:27 09/02/25 23:47 CPAP 09/02/25 22:09 09/02/25 20:00 Room Air (3) Back pain Back pain laterality: midline Back pain location: low back pain Chronicity: acute
[2025-09-03 07:37] VITALS: RESP 18; TEMP 97.5; O2SAT 92
[2025-09-03] MEDS ORDERED: LANTUS PER UNIT CHARGE SQ SCH (12:30)
[2025-09-03] MEDS: LANTUS PER UNIT CHARGE SQ SCH (13:10)
[2025-09-03 15:38] VITALS: BP 173/80; PULSE 83
--- NOTE | 2025-09-03 15:55 | Discharge Summary ---
Date of Service September 03, 2025 Admission HPI Per Admitting Provider Deb is a 59-year-old female with a history of tobacco use, systolic CHF, asthmaCOPD overlap, atrial flutter, chronic pain, type II DM, PTSD, depression/anxiety, hyperlipidemia. At time of admission no records from [facility] are available and unable to be obtained by case management. Records request pending Since halloween +cough. Gradually worsening cough, sputum production over the last week. Now w/ chest congestion, headaches. Cough is nonproductive. Wheezing started 2 days ago. Taking her nebulizers and took some leftover prednisone 2 tablets (not sure dosage) last 2 days but didnt help +chest pain when coughing, sharp. No chest pressure. No chest pain at time of assessment. Hx heart surgery and mechanical valve. Takes warfarin, but was supposed to get an injection for her back pain but this was cancelled due to her being sick. Has been on lovenox, took this at ~9am. Was supposed to get back injections. Had sx with dr. kerns 2 years ago. Follows with [facility], disc disease in thoracic back per pt. Rods are stable and doing well, no indication for surgery but is recommended for both PT and injections with pain management. Was seeing Dr. Randhawa [facility]. Thi sis on hold until she recovers. Back pain is worse both because she missed her injections and keeps coughing. Denies strength loss. Some L dorsal toe sensation loss chronically due to her back. ~0.5ppd tobacco use No etoh use Full COde No antibiotic allergies Admission Exam Per Admitting Provider General: A&Ox3. NAD. Cooperative. HEENT: Atraumatic, normocephalic. Vision/hearing. PERLAA. EoM intact without nystagmus Pulm: Diffuse rhonchi and wheezing through all mohr. Consistent cough. SpO2 98% at bedside Cardiac: RRR, +sm -mrg. Radial pulses intact and symmetrical. Abdominal: Nontender, nondistended, soft. BS present. Ext: warm, dry. Sensation diminished to soft touch in doral L foot. Otherwise sensation to soft touch intact. 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 NAD. Cooperative. HEENT: Atraumatic, normocephalic. Vision/hearing. PERLAA. EoM intact without nystagmus Pulm: Scattered rhonchi throughout all mohr, wheezing dramatically improved although not completely resolved. Scattered end expiratory wheezes bilaterally. Coughs periodically on exam, with reduced frequency compared to prior Cardiac: RRR, +sm. Radial pulses intact and symmetrical. Abdominal: Nontender, nondistended, soft. BS present. Ext: warm, dry. Moving extremities equally Discharge Data Allergies Allergy/AdvReac Type Severity Reaction Status Date / Time morphine AdvReac Mild Nausea--IF Verified 08/22/25 00:01 GIVEN ZOFRAN PRIOR, ABLE TO TAKE MED. Consultations 08/29/25 18:18 ED Decision to Admit Stat Hospital Course (1) Encounter for smoking cessation counseling: (2) COPD (chronic obstructive pulmonary disease): (3) Back pain: (4) Dyspnea: (5) Smoking 1/2 pack a day or less: (6) Drug use disorder: (7) Anticoagulated on Coumadin: (8) Atrial flutter with rapid ventricular response: (9) Acute systolic CHF (congestive heart failure): (10) Spinal stenosis of cervical region with radiculopathy: (11) Acute heart failure with preserved ejection fraction: (12) Atrial flutter: Gamaliel Berto Deb Cotton is a 59 Y O Female with PMH of HFpEF, Atrial Flutter with RVR, MVR, Type II DM, SMITA,Chronic Low Back Pain, Type II DM presented with worsening cough, shortness of breath and wheezing . Respiratory Biofire test is positive for Rhino/Entero Virus. She was being admitted for acute exacerbation of Chronic COPD likely 2/2 to viral infection. #Acute exacerbation of chronic COPD 2/2 to viral infection -Came in with worsening cough, wheezing and Shortness of breath -Chest XRwith no acute abnormalities -Biofire positive for Rhino/Entero Virus -Continue Prednisone at home. 40mg OD for 2 days; 20mg OD for 3 days and 10mg OD for 3 days -Completed 3 days course of Azithromycin(Ordered for increased wendi of complication given the risk factors although chest XR was negative) -Continue inhalers at home -For cough-Mucinex as needed #HFpEF, MVR, A flutter with RVR -No signs/symptoms of exacerbation currently -Continue home diuretics: Furosemide 40mg qPM -Continue Entresto, Metoprolol and Farxiga - Anticoagulation continued for chemical valve replacement and A-flutter. Of note her INR 0.9, she has not been on Eliquis so she was pending a back injection however she has been reliably taking Lovenox. She last took Lovenox at 9 AM on 08/29. Continue Lovenox D-dimer is not elevated, no evidence of DVT/PE #Hypertension -BP in the range of 140 over 80 today. -Controlled with Amlodipine 5mg qAM which was added on admission -Recommend Amlodipine 5mg qAM. Amlodipine added on discharge. #SMITA -Continue CPAP #Chronic Low Back pain - History of lumbar disc disease, s/p surgical intervention with orthopedic spine Has been evaluated for ongoing back pain with some chronic paresthesias/numbness of the left dorsal foot and intact strength but with some qualitative left leg weakness. Not recommended for surgery. No strength/sensory change recently. No urinary retention. Her back pain was felt to be due to lumbar disc disease and she is following with [facility] pain management for injections . She has scheduled appointment on Monday for steroids injection Continue home multimodal pain control. She is also on systemic steroids for asthma exacerbation. Start home steroids after Prednisone taper. Continue Voltaren -Oxycodone sent to her pharmacy to take q8hr PRN until Monday #Type II DM -Continue home regimen #Tobacco abuse Cessation recommended. #Anxiety -Continue Xanax Total Time Total Time Spent Total Time Spent (In Minutes): Lester Arechiga DO, attending physician, spent 25 minutes myself seeing the patient, reviewing the chart, and documenting today. Discharge Plan Discharge Items Patient Disposition: Home - Self-Care Reason For Visit: ASTHMA/COPD EXACERBATION, RHINO/ENTEROVIRUS Discharge Diagnosis: 1. Acute Exacerbation of COPD Condition on Discharge: Fair Activity: Resume your previous activity Non-emergency contact: Primary Care Provider and Pain Management Call non-emergency contact if: you have any medication questions, your symptoms worsen, your pain is not controlled and your pain is worsening Follow-up/Referrals: Cici Kennedy MD [Primary Care Provider] - Diet: Regular Addtl Attending Provider Instructions: You were admitted to the hospital for cough and worsening shortness of breath. You were found to have Acute Exacerbation of Chronic COPD which was probably exacerbated by viral infection. You were also found to have Rhino/Entero Virus Infection. XR Chest was done which didn't reveal Pneumonia but given the risk factors antibiotics course was completed for 3 days. You were also treated with intravenous Methylprednisone which helped with your breathing. Today your lung sounds clear on exam and you feel significantly better compared to when you came in. So you are stable to go back home. Your blood pressure was also found to be slightly high when you were on hospital. So we added medication for your blood pressure and you responded well to it. We will discharge you on home medications . A discharge summary will be sent to your primary care physician to ensure continuity of care. Please bring this discharge summary with you to your next office appointment so that your provider can review it at that time. Follow-up appointments: Make a follow-up appointment with your PCP within the next week. It is very important thatyou follow up with them shortly after discharge from the hospital.] Keep all your follow-up appointments as already scheduled. If you cannot make anappointment, notify your provider. Medications: Your medication list has been reviewed and reconciled upon discharge to ensure accuracy and continuity of care. An updated list of all your medications is included with your hospital discharge paperwork. Please review this list closely, and make note of any changes. We sent a new medication called Prednisone to your pharmacy. Take Prednisone 40mg once a day for 2 days, 20mg once a day for 3 days and 10mg once a day for next 3 days We sent a new medication called Amlodipine to your pharmacy. Take Amlodipine 5mg daily. Please follow up with your PCP to determine wether this medicine needs continuation or dose needs to be adjusted. We sent Oxycodone 5mg to your pharmacy. Please take Oxycodone every 8 hour as needed for back pain until Monday. If you have any issues filling these prescriptions, please call [phone] and ask to leave a message for Dr. Juan Mercado Take your medications as instructed; do not skip a dose of your medicines. Make sure all of your doctors know every medicine you are taking (including [id number] medicines, vitamins, and supplements). Call your primary care provider before taking any new medicines (including overthe- counter medicines, vitamins, and supplements), because some of these may interact with your current medications, or may make your symptoms worse. Tell your primary care provider if you cannot afford your medications. CONTACT YOUR PRIMARY CARE PROVIDER if you experience any of the following: Worsening shortness of breath with chest pain, fever Difficulty following your treatment plan, or difficulty taking medications CALL 911 OR GO TO THE EMERGENCY DEPARTMENT if you experience any of the following: Sudden, severe abdominal pain or nausea/vomiting Severe chest pain, or chest pain that radiates (moves) to your jaw or arm Sudden, severe shortness of breath or difficulty breathing Thank you for allowing us to participate in your care. . Pending Studies at Discharge: No Stand-Alone Forms: [facility] [employer], Smoking Cessation Medications and DC Order Prescriptions: New amlodipine 5 mg Tablet 5 mg PO QAM 15 Days Qty: 15 0RF prednisone 10 mg tablet 10 mg PO DAILY Qty: 17 0RF Rx Instructions: 4 tab (40 mg) daily for 2 days; 2 tab(20mg) daily for 3 days , 1 tab (10mg) daily for 3 days oxycodone 5 mg tablet 5 mg PO Q8H PRN (Reason: pain) Qty: 12 0RF Continued alprazolam 0.5 mg tablet 0.5 mg PO DAILY PRN (Reason: anxiety) quetiapine 50 mg tablet extended release 24 hr 50 mg PO QPM (DME) Hospital Bed [facility] [place] See Rx Instructions .Route Qty: 1 0RF Rx Instructions: As directed-HOSPITAL BED, LENGTH OF NEED 99 MONTHS, DX CODE; Z98.890 Proctofoam HC 1-1 % foam 1 applic RI BID PRN (Reason: hemorrhoids) Qty: 10 0RF Atrovent HFA 17 mcg/actuation HFA aerosol inhaler 2 puff INHALATION TID Qty: 12.9 5RF nitroglycerin 0.4 mg tablet, sublingual 0.4 mg sublingual Q5M PRN (Reason: Chest Pain) Qty: 30 6RF Rx Instructions: do not exceed 3 doses per episode (DME) [facility] [place] See Rx Instructions .Route .MEDSUPPLY Qty: 1 0RF Rx Instructions: To be installed and used as directed to allow safe ambulation of stairs in patient home aspirin [Ecotrin Low Strength] 81 mg tablet,delayed release (DR/EC) 81 mg PO QAM 90 Days Qty: 90 4RF atorvastatin 40 mg tablet 40 mg PO QPM 90 Days Qty: 90 2RF furosemide 40 mg tablet 40 mg PO QPM Qty: 30 5RF Rx Instructions: MAY TAKE AN EXTRA 40MG DAILY, NEEDED, FOR WEIGHT GAIN. Trulicity 4.5 mg/0.5 mL pen injector 4.5 mg subcut Q7D Qty: 2 5RF Rx Instructions: MONDAYS metformin 500 mg tablet 1,000 mg PO BID 90 Days Qty: 360 2RF dapagliflozin propanediol [Farxiga] 10 mg tablet 10 mg PO DAILY Qty: 30 5RF diclofenac sodium [Arthritis Pain (diclofenac)] 1 % gel 4 g topical QID PRN (Reason: Pain) Qty: 100 3RF pantoprazole [Protonix] 40 mg tablet,delayed release (DR/EC) 40 mg PO QPM Qty: 90 3RF Entresto 24-26 mg tablet 1 tab PO BID Qty: 180 3RF metoprolol succinate 25 mg tablet extended release 24 hr 25 mg PO QAM 90 Days Qty: 90 4RF cyclobenzaprine 5 mg tablet 5 mg PO BID PRN (Reason: muscle spasm) 30 Days Qty: 20 1RF acetaminophen [Tylenol Extra Strength] 500 mg tablet 1,000 mg PO BID Qty: 60 1RF peg 3350-electrolytes [GaviLyte-G] 236-22.74-6.74 -5.86 gram recon soln 240 ml PO Q10M Qty: 4000 0RF Rx Instructions: PRIOR TO PROCEDURE until fecal effluent is clear (DME) Bedside Commode Misc See Rx Instructions .Route Qty: 1 0RF Rx Instructions: As directed (DME) blood-glucose meter [OneTouch Verio Flex meter] Misc See Rx Instructions .Route Qty: 1 0RF Rx Instructions: Check blood sugar 1-2 times daily (DME) lancets [OneTouch UltraSoft 2 Lancet] 30 gauge misc See Rx Instructions .Route Qty: 100 3RF Rx Instructions: Test blood sugar once daily and as needed (DME) OneTouch Verio test strips Strip See Rx Instructions .Route Qty: 100 3RF Rx Instructions: Test blood sugar once daily and as needed sodium chloride [Hyper-Gilbert] 7 % solution for nebulization 4 ml inhalation Q12H Qty: 240 0RF (DME) Flutter Valve Device See Rx Instructions .Route Qty: 1 0RF Rx Instructions: q6hrs Nurtec ODT 75 mg tablet,disintegrating 75 mg PO UD PRN (Reason: Migraine Headache) Qty: 8 5RF Rx Instructions: 75 mg PO take one tablet at migraine onset as directed; fluticasone furoate-vilanterol [Breo Ellipta] 100-25 mcg/dose blister with device 1 inh INHALATION QAM docusate sodium 100 mg Capsule 100 mg PO BID Qty: 30 0RF ipratropium-albuterol 0.5 mg-3 mg(2.5 mg base)/3 mL solution for nebulization 3 ml NEB Q6H PRN (Reason: Shortness Of Breath Or Wheezing) nicotine [Nicoderm CQ] 21 mg/24 hr Patch 24 Hour 21 mg transdermal QAM Qty: 7 0RF polyethylene glycol 3350 17 gram/dose powder 17 g PO UD PRN (Reason: Constipation) oxycodone 5 mg tablet 5 mg PO Q6 PRN (Reason: pain) Qty: 12 0RF Patient Comments: 08/29- Per pt, she has run out of her pain medication potassium chloride 20 mEq tablet extended release 20 meq PO QPM tramadol 100 mg Tablet 100 mg HS chlorhexidine gluconate 0.12 % mouthwash 15 ml mucous membrane TID PRN (Reason: NEEDED) Rx Instructions: Swish and spit enoxaparin 100 mg/mL syringe 90 mg subcut BID Rx Instructions: WILL START 08/22/25----for bridge plan- use as directed by anticoagulation clinic oxycodone 5 mg tablet 5 mg PO Q8H PRN (Reason: pain) Qty: 9 0RF Held warfarin 5 mg tablet 5 mg PO UD Hold Instructions: Hold until Sep 05. Has planned steroid injection on 09/05. So her warfarin is on hold. She is on Enoxaparin BID. Patient Comments: 08/29- Medication currently on hold. Pt doing enoxaparin shots BID up until Sep 05 Discontinued prednisone 20 mg tablet See Rx Instructions .ROUTE .COMPLEX 5 Days Qty: 7 0RF Rx Instructions: Please take 2 tablets the first day, 2 tablets the second day, 1 tablet the third day, 1 tablet the 4th day, 1/2 tablet the 5th day. Discharge Orders: Discharge Order (Routine); Ordered 09/03/25 Ordered By: Juan Stallworth/Other Patient Handouts: High Blood Sugar (Hyperglycemia), Managing Type 2 Diabetes, Special Foot Care for Diabetes Admission Data Admit Date/Time: 08/29/25 19:22 Attending Provider: Lester Kline Admit Provider: Juanito Moise Primary Care Provider: Cici Kennedy Other Providers: Juanito Moise Other Interventions: Discharge Summary Assessment (RN) Last Done: 09/03/25 15:33 Supervising Physician Co-Signing Physician Notes ATTESTATION I also saw the patient and confirmed duran portions of the history and exam. I agree with the impression and plan in the resident documentation, and as summarized below. Patient is feeling much better overall, especially with her breathing. Back pain is reasonably well-controlled. She is looking forward to discharge. EXAM Lungs with very end expiratory wheeze, but without any clear. IMPRESSION & PLAN asthma exacerbation and COPD, positive BioFire rhino/enterovirus heart failure with preserved ejection fraction hypertension type 2 diabetes tobacco abuse Discharge home today prednisone taper oxycodone 5 mg p.o. as needed pain pain management follow-up on Monday Note the patient remains on a Lovenox bridge (holding warfarin given pending pain management injection). Additional per resident documentation Resident Activity Tracking Resident Involvement: Resident Care Provided Care Provided: Adult Hospital Medicine
== END 2025-09-03 16:06 | disposition home or self-care (01) | DRG 190 ==
LOC: ED 16:34 → 2S 19:22 → INTOOBSV 19:22 → SUATTDRO 19:22 → 2S 20:47 → 2W 09-02 14:42

== ENCOUNTER 2025-09-11 17:15 | Observation (INO) ==
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
[2025-09-11] MEDS: ONDANSETRON INJ 2 MG/ML 2 ML VIAL IV STA (18:19)
[2025-09-11] MEDS: MoRPHine SULFATE 4 MG/ML 1 ML CARP\\VIAL IV STA ×2 (18:19→21:33)
[2025-09-11 18:28] LABS: Hematocrit (blood only) 33.7 % (37.0-47.0); Hemoglobin 10.3 g/dL (12.0-16.0); Immature Granulocytes # (auto) 0.04 K/uL (0.01-0.20); Immature Granulocytes % (auto) 0.3 %; Mean Corpuscular Hemoglobin 29.2 pg (25.0-34.0); Mean Corpuscular Volume 95.5 fL (80.0-100.0); Platelet Count 259 K/uL (130-400); RDW Standard Deviation 63.6 fL (36.4-46.3); Red Blood Count 3.53 M/uL (4.20-5.40); White Blood Count 11.44 K/ul (4.8-10.8)
[2025-09-11] MEDS: LORazepam 1 MG/1 ML SYR ED Inj Use IV STA (18:44)
[2025-09-11 18:45] LABS: Alanine Aminotransferase 34 U/L (7-52); Albumin Globulin Ratio 1.2 (0.9-2); Albumin Level 3.8 gm/dl (3.4-5.0); Alkaline Phosphatase 92 U/L (34-104); Anion Gap 6 (3-11); Bilirubin,Total 0.3 mg/dl (0.2-1.0); Blood Urea Nitrogen 17 mg/dl (6-23); Calcium 9.2 mg/dl (8.6-10.3); Carbon Dioxide 27 mmol/L (21-32); Chloride 106 mmol/L (98-107); Globulin 3.2 gm/dl (2.5-4.0); Glucose 137 mg/dl (70-99(Fasting)); Potassium 4.9 mmol/L (3.5-5.1); Sodium 139 mmol/L (136-145); Total Protein 7.0 gm/dl (6.0-8.3)
--- NOTE | 2025-09-11 19:47 | Magnetic Resonance Report ---
MRI LUMBAR SPINE WITHOUT CONTRAST TECHNIQUE: An MRI examination of the lumbar spine was performed. The examination consists of sagittal T1-weighted, inversion recovery and T2 weighted images as well as axial T1-weighted, T2-weighted and gradient echo images. INDICATION: Back pain COMPARISON: Lumbar spine radiographs August 27, 2025. Lumbar spine CT August 21, 2025 FINDINGS: No significant vertebral body height loss. No significant spondylolisthesis. Bone marrow signal is unremarkable. Postoperative changes of L3-S1 posterior instrumented fusion and laminectomies. Interval disc spaces are present at L3-4, L4-5 and L5-S1. The conus terminates at L1-2. There is a subcutaneous fluid collection in the soft tissues of the lower back measuring 2.5 x 2.5 x 9.5 cm (AP x TV x CC). There are multilevel degenerative changes of the lumbar spine as below: L1-2: Mild disc bulge, bilateral facet arthropathy and thickening of the ligamentum flavum. No significant spinal canal or neural foraminal narrowing. L2-3: Evidence of accelerated spondylosis at this level with a broad-based disc bulge, bilateral facet arthropathy and thickening of the ligamentum flavum resulting in severe tricompartmental spinal canal stenosis and severe right worse than left neural foraminal narrowing where the traversing and the exiting nerves are impinged. L3-4: Broad-based disc bulge and bilateral facet arthropathy resulting in moderate to severe right and moderate left neural foraminal narrowing. L4-5: Broad-based disc bulge and bilateral facet arthropathy resulting in moderate to severe right and moderate left neural foraminal narrowing. L5-S1: Broad-based disc bulge and bilateral facet arthropathy resulting in moderate to severe right and moderate left neural foraminal narrowing. IMPRESSION: Postoperative changes of L3-S1 posterior instrumented fusion and laminectomies. Evidence of accelerated spondylosis at L2-3 resulting in severe tricompartmental spinal canal stenosis and severe right worse than left neural foraminal narrowing where the traversing and the exiting nerves are impinged. Right greater than left neural foraminal stenoses at L3-S1 Posterior subcutaneous fluid collection as above. Recommend clinical correlation to exclude infection/abscess Electronically signed by Stas Faria 09-11-2025 7:47 PM
[2025-09-11] MEDS ORDERED: VANCOMYCIN CONSULT ACTIVE PRN ×2 (20:20→23:13)
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
[2025-09-11] MEDS: cefTRIAXone SODIUM 2,000 MG/50 ML BAG IV STA (21:16)
[2025-09-11] MEDS: NICOTINE 14 MG/24 HR PATCH TD STA (21:17)
[2025-09-11] MEDS: DICLOFENAC SOD 1% GEL 100 GM TUBE EXT STA (21:18)
[2025-09-11] MEDS: ACETAMINOPHEN 1,000 MG/100 ML VIAL IV STA (21:24)
[2025-09-11 21:35] LABS: INR 1.3 (0.9-1.1); Prothrombin Time 13.5 Seconds (9.0-12.0)
[2025-09-11] MEDS ORDERED: DOCUSATE SODIUM 100 MG CAP PO PRN (23:13)
[2025-09-11] MEDS ORDERED: ALBUT/IPRATROP 3MG/0.5MG NEB 3 ML VIAL NEB PRN (23:13)
[2025-09-11] MEDS ORDERED: MELATONIN 3 MG TAB PO PRN (23:13)
[2025-09-11] MEDS ORDERED: ONDANSETRON INJ 2 MG/ML 2 ML VIAL IV PRN (23:13)
[2025-09-11] MEDS ORDERED: GLUCOSE 40% GEL 15 GM TUBE PO PRN (23:13)
[2025-09-11] MEDS ORDERED: GLUCOSE 10 TAB/TUBE PO PRN (23:13)
[2025-09-11] MEDS ORDERED: DICLOFENAC SOD 1% GEL 100 GM TUBE EXT PRN (23:13)
[2025-09-11] MEDS ORDERED: DEXTROSE 50% 50 ML SYRINGE IV PRN (23:13)
[2025-09-11] MEDS ORDERED: GLUCAGON FOR INJ 1 MG VIAL SQ PRN (23:13)
[2025-09-11] MEDS ORDERED: MoRPHine SULFATE 2 MG/ML CARP IV PRN (23:13)
[2025-09-11] MEDS ORDERED: CARBOHYDRATES FOR HYPOGLYCEMIA PO PRN (23:13)
[2025-09-11] MEDS ORDERED: POLYETHYLENE (MIRALAX) 17 GM PACK PO PRN (23:13)
[2025-09-11] MEDS: VANCOMYCIN HCL 2,750 MG in SODIUM CHLORIDE 0.9% 500 ML IV ONE (23:41)
[2025-09-12] MEDS: INSULIN ASPART PER UNIT CHARGE SC SCH (00:03)
[2025-09-12] MEDS: ATORVASTATIN 40 MG TAB PO SCH (00:30)
[2025-09-12] MEDS: FUROSEMIDE 40 MG TAB PO SCH (00:30)
[2025-09-12] MEDS: IPRATROPIUM BROMIDE HFA INHALER INH SCH (00:30)
[2025-09-12] MEDS: VALSARTAN/SACUBITRIL 51/49 MG TAB PO SCH (00:31)
[2025-09-12] MEDS: POTASSIUM CHLORIDE CRTAB 20 MEQ TABCR PO SCH (00:31)
[2025-09-12] MEDS: dexAMETHasone 10 MG in SYRINGE 0 ML IV ONE (00:47)
[2025-09-12] MEDS: MoRPHine SULFATE 4 MG/ML 1 ML CARP\\VIAL IV PRN (02:32)
[2025-09-12] MEDS: ACETAMINOPHEN 500 MG TAB PO SCH (05:16)
[2025-09-12] MEDS: ACETAMINOPHEN 1,000 MG/100 ML VIAL IV STA (06:24)
[2025-09-12 06:43] LABS: Hematocrit (blood only) 31.9 % (37.0-47.0); Hemoglobin 10.0 g/dL (12.0-16.0); Immature Granulocytes # (auto) 0.03 K/uL (0.01-0.20); Immature Granulocytes % (auto) 0.3 %; Mean Corpuscular Hemoglobin 29.7 pg (25.0-34.0); Mean Corpuscular Volume 94.7 fL (80.0-100.0); Platelet Count 233 K/uL (130-400); RDW Standard Deviation 62.9 fL (36.4-46.3); Red Blood Count 3.37 M/uL (4.20-5.40); White Blood Count 9.42 K/ul (4.8-10.8)
[2025-09-12 07:06] LABS: Anion Gap 5.0 (3-11); Blood Urea Nitrogen 18.0 mg/dl (6-23); Calcium 8.9 mg/dl (8.6-10.3); Carbon Dioxide 24.0 mmol/L (21-32); Chloride 108.0 mmol/L (98-107); Creatinine Clr Calc Pharmacy 105.2 ml/min; Glucose 204.0 mg/dl (70-99(Fasting)); Potassium 5.2 mmol/L (3.5-5.1); Sodium 137.0 mmol/L (136-145)
[2025-09-12 07:36] VITALS: BP 145/55; TEMP 98.1
[2025-09-12] MEDS: FLUTICASONE/VILANTEROL 100/25MCG 14 PUFFS/INHALER INH SCH (08:46)
--- NOTE | 2025-09-12 10:47 | Pharmacy Report ---
Pharmacy PK ABX Note - Date of Service September 12, 2025 - Assessment and Plan Assessment 59 year old F receiving vancomycin and ceftriaxone for treatment of spinal infection/possible abscess s/p spinal injection (on 09/05) for pain management at outside facility. * lumbar spine MRI showed posterior subcutaneous fluid collection, + mild leukocytosis (WBC= 11.4 but improved to 9.4 today), renal function stable and at baseline, and afebrile. * Blood cultures x 2 from 09/11 are pending Day # 2 of antimicrobial therapy. Plan Vancomycin * Loading dose: 2750 mg IV x 1 * Maintenance dose: 1250 mg IV every 12 hours * Regimen is predicted to achieve target AUC/RUBÉN of 400-600 mg/L.hr * Random level ordered for: 09/13 at 0900. Rocephin 2gm iv q 24 hours Pharmacy will continue to follow and will adjust dose/frequency as necessary. Thank you. Pharmacy has transitioned to AUC monitoring for vancomycin. AUC/RUBÉN is the preferred PK/PD target and is associated with decreased risk of nephrotoxicity compared to traditional trough targets.
[2025-09-12] MEDS: NICOTINE 14 MG/24 HR PATCH TD SCH (11:16)
[2025-09-12] MEDS: CYCLOBENZAPRINE HCL 5 MG TAB PO PRN (11:16)
--- NOTE | 2025-09-12 11:33 | Discharge Summary ---
Date of Service September 12, 2025 Admission HPI Per Admitting Provider Patient is a 59-year-old female with past medical history PE, TAD AAA, SMITA on CPAP, type II DM, HFpEF, asthma/COPD overlap syndrome (just recently admitted from 08/29 to 09/03 for COPD exacerbation), GERD, HTN, HLD, chronic back pain with left LE paresthesias. Patient presented due to severe intractable back pain that radiates down her right leg which has been ongoing for several months however has acutely worsened since spinal injection with [facility] pain management 09/05. Workup in the ED revealed possible fluid collection of lower back on lumbar spine MRI, concern for infection with mild leukocytosis (however downtrending with recent prednisone use). Patient is being admitted for pain control and to have evaluation by orthospine. Patient seen at bedside. Patient stated she had a spinal surgery approximately [address] Cheney. Her pain was doing well until the past few months when she has developed progressive severe low back pain and left lower extremity numbness and weakness. Dr. Cheney reportedly referred her to physical therapy which she stated did not help and she stopped going. She then had referral to [facility] pain management who did a bilateral nerve test however she is still waiting for the results as they take 6 weeks to come back. She has chronic left lower extremity weakness and numbness at baseline which is unchanged. She now has right lower extremity symptoms such as pain however denies numbness or weakness. She denies any urinary or bowel incontinence. Patient had a spinal injection with [facility] pain management on 09/05 which made her pain significantly worse and she has had difficulty ambulating since. She is to follow-up with them again October 15. She came into the ED today because pain was uncontrollable she was unable to get into pain management. She does endorse intermittent fevers and headaches. Pain is currently 8/10 at bedside after morphine 4 mg IV in the ED, she has been taking her as needed oxycodone at home without relief. She has a hospital bed, walker, and cane for ambulatory assistance. Patient still continues to smoke cigarettes daily, less than half a pack per day. She uses CPAP at bedtime for sleep apnea. She was on Lovenox for her injections however now has transitioned back to warfarin. She wishes to be full code. Patient expressing concerns about discharge 09/12 as she has a nonrefundable event at 1630 and plans to leave by then. She did not take any home medications today - will defer antihypertensives given BP stable. She completed course of prednisone for COPD exacerbation - symptoms are resolved. Admission Exam Per Admitting Provider Physical Exam: The patient is awake, alert and oriented 3, well developed and well nourished, normocephalic and atraumatic, in no acute distress. Non-toxic appearing. HEENT- EOMI, mucous membranes moist. Hearing grossly intact. Heart-normal S1 and S2. No murmurs, rubs or gallops. Lungs-clear bilaterally, no respiratory distress, no accessory muscle use. Abdomen-normal bowel sounds and soft. No ascites noted. Non-tender. Extremities- no clubbing, cyanosis, or edema. Psychiatric-normal affect. Musculoskeletal: 5/5 strength R LE 2/5 strength L LE - ba seline Neurologic: Motor/Sensory: + sensory deficit (decreased sensation L LE (baseline)) Principal Diagnosis intractable back pain Discharge Exam VITALS: Reviewed. WEIGHT/BMI reviewed. GEN: resting in reasonable level of comfort in bed. alert, awake no acute distress. PSYCH: AOx3. CV: RRR, no murmur appreciated LUNGS: clear to auscultation bilaterally ABD: Soft, NT/ND, NBS, no masses or organomegaly. SKIN: Warm, well perfused. No skin rashes or abnormal lesions. MSK: midspinal and paraspinal tenderness to palpation over the sotft tissues of lumbar spine ; no bony tenderness to appreciated ; no obvious area of swelling or erythema. EXT: No clubbing, cyanosis, or edema. NEURO: no focal neurological deficits. decreased sensation of LLE, unchanged from baseline. 5/5 strength RLE. 2/5 strength LLE, unchanged from baseline Discharge Data Allergies Allergy/AdvReac Type Severity Reaction Status Date / Time morphine AdvReac Mild Nausea--IF Verified 09/11/25 20:21 GIVEN ZOFRAN PRIOR, ABLE TO TAKE MED. 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 Patient presented due to severe intractable back pain that radiates down her right leg which has been ongoing for several months however has acutely worsened since spinal injection with [facility] pain management 09/05. Workup in the ED revealed possible fluid collection of lower back on lumbar spine MRI, concern for infection with mild leukocytosis (however downtrending with recent prednisone use). Patient is being admitted for pain control and to have evaluation by orthospine. #Intractable back pain/spinal fluid collection - MRI showed posterior subcutaneous fluid collection (infection/abscess possible). Admission WBC 11.44 (however recent COPD exacerbation Tx with steroid use and downtrending), H&H at baseline. No new strength/sensory deficits, denies incontinence. Pain was managed with scheduled tylenol, morphine prn, and continued on home flexeril and voltaren gel. Doses of ceftriaxone and vancomycin were given in ED due to concern of possible infection. - Today, WBC continues to downtrend, now 9.42. Remains hemodynamically stable and afebrile. Not toxic-appearing or in acute distress. - Discussed imaging findings with Dr. Cheney who is not concerned for infection at this time and findings are likely consistent with recent steroid injection. Given that patient is not toxic, afebrile, and w/o other obvious signs of infection, she would be reasonably medically stable for discharge and is encouraged to f/u with Dr. Cheney within 1 week for further evaluation/monitoring of her pain and imaging findings - blood cultured ordered and pending - can d/c antibiotics at this time. - warfarin on hold due to potential of bedside procedure on admission. INR 1.3 on admission. Will continue to hold and bridge to lovenox 100 mg (1mg/kg q12h), especially as patient is traveling out of state and not able to have labs monitored. - return precautions were discussed with patient including, development of fever >100 or chills, new or worsening confusion, weakness, rapid heartbeat, signs/concerns of dehydration and/or increased pain with redness, warmth, swelling or drainage from the lumbar spine/injection site. Patient expressed understanding at time of discharge. #asthma/COPD overlap syndrome - recent exacerbation sx resolved, finished p rednisone 09/11. - continue home inhalers #HFpEF - no acute exacerbation. - continue lasix, metoprolol, Entresto, Farxiga #Hx PE/mechanical mitral valve/a.fib - on warfarin 5mg UD at home, however held on admission due to possible procedure as above. - INR 1.3 - patient traveling out of state, unable to achieve routine screening/frequent labs, therefore will continue to hold warfarin and bridge to lovenox 1mg/kg q12h. - will have close follow-up with anticoagulation clinic, which with whom she is already established, once return from travel. #T2DM - SSI during admission - continue metformin and Farxiga #tobacco use - nicotine patch ordered, encourage cessation #anxiety - continue Xanax pr #SMITA - CPAP HS #GERD - continue PPI VTE ppx: SCDs + TEDs, holding warfarin with possible procedure ; lovenox as above Dispo: reasonably medically stable for discharge with close follow-up outpatient with Dr. Cheney and anticoagulation clinic Total Time Total Time Spent Total Time Spent (In Minutes): 40 Discharge Plan Discharge Items Patient Disposition: Home - Self-Care Reason For Visit: INTRACTABLE BACK PAIN,FLUID COLLECTION LOWER SPINE Discharge Diagnosis: intractable back pain, fluid collection of lumbar spine Condition on Discharge: Fair Activity: Resume your previous activity Non-emergency contact: Primary Care Provider and Surgeon Call non-emergency contact if: you have any medication questions, your symptoms worsen and you have a fever Follow-up/Referrals: Bobo Cheney DO [Surgeon] - 09/22/25 10:30 am Cici Kennedy MD [Primary Care Provider] - (Please have patient call office for follow up appointment) Diet: Carb Consistent or DM2, Heart Healthy and Low Sodium (2gm) Addtl Attending Provider Instructions: You were admitted to [facility] for evaluation of intractable back pain. MRI lumbar spine resulted showed subcutaneous fluid collection in the soft tissues of the lower back measuring 2.5 x 2.5 x 9.5 cm. Case was discussed with Dr. Cheney, who you were following with for your previous spinal surgeries. Given findings on MRI and your lab work, there is low concern that this fluid collection is a developing abscess/infection. Likely this a post-op seroma and fluid collection consistent with recent steroid injection of lumbar spine. Lab work completed without an elevated white blood cell count. Blood cultures are ordered and are without growth as of now. Your vitals remained within normal range and were afebrile throughout admission. You also received a dose of IV antibiotics during your visit and medications to better control your pain. You will be contacted with the results of the blood cultures if they are positive and will need to go to the nearest hospital to be further assessed with possible need for IV antibiotics. On exam the morning of discharge, you are not toxic appearing and stable from a medical standpoint. Continue holding warfarin after discharge as your INR was subtherapeutic on admission and you will be traveling out of state for the next few weeks. You will be transitioned to lovenox 100mg subcutaneous injection two times a daily. Please continue taking all other medications as prescribed. Seek emergency medical evaluation in the emergency department if you experience any of the following: - fever >100.4 or chills - new or worsening confusion, disorientation, or difficulty staying awake - rapid heartbeat, feeling of your heart "racing" or palpitations - new or worsening weakness or fatigue - dizziness, lightheadedness or fainting - increased pain with redness, warmth, swelling or drainage from the lumbar spine/injection site - inability to keep down fluids, excessive nausea or vomiting or other signs of dehydration Follow-up with Dr. Cheney within 1 week from discharge for further monitoring of you pain and symptoms. Pending Studies at Discharge: Yes Studies:: blood cultures Stand-Alone Forms: My [facility], Smoking Cessation Medications and DC Order Prescriptions: New enoxaparin [Lovenox] 100 mg/mL syringe 100 mg subcut Q12H 30 Days Qty: 60 0RF Continued alprazolam 0.5 mg tablet 0.5 mg PO BID PRN (Reason: anxiety) quetiapine 50 mg tablet extended release 24 hr 50 mg PO QPM (DME) [facility] See Rx Instructions .Route Qty: 1 0RF Rx Instructions: As directed-HOSPITAL BED, LENGTH OF NEED 99 MONTHS, DX CODE; Z98.890 Proctofoam HC 1-1 % foam 1 applic VA BID PRN (Reason: hemorrhoids) Qty: 10 0RF Atrovent HFA 17 mcg/actuation HFA aerosol inhaler 2 puff INHALATION TID Qty: 12.9 5RF nitroglycerin 0.4 mg tablet, sublingual 0.4 mg sublingual Q5M PRN (Reason: Chest Pain) Qty: 30 6RF Rx Instructions: do not exceed 3 doses per episode (DME) Stair Mcfall See Rx Instructions .Route .MEDSUPPLY Qty: 1 0RF Rx Instructions: To be installed and used as directed to allow safe ambulation of stairs in patient home aspirin [Ecotrin Low Strength] 81 mg tablet,delayed release (DR/EC) 81 mg PO QAM 90 Days Qty: 90 4RF atorvastatin 40 mg tablet 40 mg PO QPM 90 Days Qty: 90 2RF furosemide 40 mg tablet 40 mg PO QPM Qty: 30 5RF Rx Instructions: MAY TAKE AN EXTRA 40MG DAILY, NEEDED, FOR WEIGHT GAIN. Trulicity 4.5 mg/0.5 mL pen injector 4.5 mg subcut Q7D Qty: 2 5RF Rx Instructions: MONDAYS metformin 500 mg tablet 1,000 mg PO BID 90 Days Qty: 360 2RF dapagliflozin propanediol [Farxiga] 10 mg tablet 10 mg PO DAILY Qty: 30 5RF diclofenac sodium [Arthritis Pain (diclofenac)] 1 % gel 4 g topical QID PRN (Reason: Pain) Qty: 100 3RF pantoprazole [Protonix] 40 mg tablet,delayed release (DR/EC) 40 mg PO QPM Qty: 90 3RF metoprolol succinate 25 mg tablet extended release 24 hr 25 mg PO QAM 90 Days Qty: 90 4RF cyclobenzaprine 5 mg tablet 5 mg PO BID PRN (Reason: muscle spasm) 30 Days Qty: 20 1RF acetaminophen [Tylenol Extra Strength] 500 mg tablet 1,000 mg PO BID Qty: 60 1RF peg 3350-electrolytes [GaviLyte-G] 236-22.74-6.74 -5.86 gram recon soln 240 ml PO Q10M Qty: 4000 0RF Rx Instructions: PRIOR TO PROCEDURE until fecal effluent is clear (DME) Bedside Commode Misc See Rx Instructions .Route Qty: 1 0RF Rx Instructions: As directed (DME) blood-glucose meter [OneTouch Verio Flex meter] Misc See Rx Instructions .Route Qty: 1 0RF Rx Instructions: Check blood sugar 1-2 times daily (DME) lancets [OneTouch UltraSoft 2 Lancet] 30 gauge misc See Rx Instructions .Route Qty: 100 3RF Rx Instructions: Test blood sugar once daily and as needed (DME) OneTouch Verio test strips Strip See Rx Instructions .Route Qty: 100 3RF Rx Instructions: Test blood sugar once daily and as needed sodium chloride [Hyper-Gilbert] 7 % solution for nebulization 4 ml inhalation Q12H Qty: 240 0RF (DME) Flutter Valve Device See Rx Instructions .Route Qty: 1 0RF Rx Instructions: q6hrs Nurtec ODT 75 mg tablet,disintegrating 75 mg PO UD PRN (Reason: Migraine Headache) Qty: 8 5RF Rx Instructions: 75 mg PO take one tablet at migraine onset as directed; fluticasone furoate-vilanterol [Breo Ellipta] 100-25 mcg/dose blister with device 1 inh INHALATION QAM docusate sodium 100 mg Capsule 100 mg PO BID Qty: 30 0RF ipratropium-albuterol 0.5 mg-3 mg(2.5 mg base)/3 mL solution for nebulization 3 ml NEB Q6H PRN (Reason: Shortness Of Breath Or Wheezing) nicotine [Nicoderm CQ] 21 mg/24 hr Patch 24 Hour 21 mg transdermal QAM Qty: 7 0RF polyethylene glycol 3350 17 gram/dose powder 17 g PO UD PRN (Reason: Constipation) doxycycline hyclate 100 mg capsule 100 mg PO BID Rx Instructions: STARTED 09/10/25 FOR 7 DAYS varenicline tartrate 0.5 mg tablet 0.5 mg PO DIRECTED Rx Instructions: STARTED 09/10/25 FOR 7 DAYS sacubitril-valsartan 49-51 mg tablet 1 tab PO BID oxycodone 5 mg tablet 5 mg PO Q8H PRN (Reason: Pain) potassium chloride 20 mEq tablet extended release 20 meq PO QPM tramadol 100 mg Tablet 100 mg HS chlorhexidine gluconate 0.12 % mouthwash 15 ml mucous membrane TID PRN (Reason: NEEDED) Rx Instructions: Swish and spit amlodipine 5 mg Tablet 5 mg PO QAM 15 Days Qty: 15 0RF Held warfarin 5 mg tablet 5 mg PO UD Hold Instructions: Hold until Sep 05. Has planned steroid injection on 09/05. So her warfarin is on hold. She is on Enoxaparin BID. Patient Comments: 08/29- Medication currently on hold. Pt doing enoxaparin shots BID up until Sep 05 Discontinued enoxaparin 100 mg/mL syringe 90 mg subcut BID Rx Instructions: WILL START 08/22/25----for bridge plan- use as directed by anticoagulation clinic Discharge Orders: Discharge Order (Routine); Ordered 09/12/25 Ordered By: Antoinette Steinberg Admission Data Admit Date/Time: 09/11/25 20:53 Attending Provider: Juanito Moise Admit Provider: Eve Livingston Primary Care Provider: Cici Kennedy Other Providers: Eve Livingston; Bobo Cheney Other Interventions: Discharge Summary Assessment (RN) Last Done: 09/12/25 13:39 Supervising Physician Co-Signing Physician Notes Patient seen and examined, chart reviewed, case discussed with Antoinette Steinberg, DO and I agree with the assessment and plan as above except as otherwise noted Labs and images reviewed Deb was seen at the bedside prior to discharge. I did review her recent hospital course and presentation. She reports she had felt a little bit feverish in the last week but has not had a temperature, she does endorse increased pain and some paresthesias in her right leg and back although reports the strength has not changed. No incontinence. Other than some back pain with movement she is clinically well, alert, engages actively with provider and team and does not appear ill/toxic. Did review her lumbar spine imaging with Dr. Cheney. Compared this to prior imaging. Suspect that this is a seroma based on imaging, and appears stable compared to prior. She did have a leukocytosis while on steroids however her leukocytosis has normalized and she has remained afebrile. Clinically she does not appear toxic or septic. On inspection her lumbar spine does not have any warmth, erythema, or redness. On review of orthospine she does have significant L1/L2 disease likely con tributing to her symptoms, and will likely need nonemergent operative intervention for this however low suspicion that the fluid collection is contributing to this and urgent surgical intervention is not recommended at this time especially given that she appears hemodynamically stable and nontoxic. Drainage/aspiration was not recommended. Can have outpatient follow-up with orthospine this coming week Deb is adamant that she will travel with family today in [place] and then [place]. Discussed that while urgent intervention not recommended and she will have close outpatient with orthospine, we cannot say with definitive certainty that there is no infectious component and she should have close monitoring and follow-up, I do recommend a CBC/BMP within 1 week to ensure stability. This would be best done by her local providers who know her well, and I did express concern for her traveling at this time. She expresses understanding of this however still intends to travel. Did review strict return precautions including fever, chills, worsening redness/erythema, hypotension, any weakness, increasing pain to which she is agreeable and will carry a copy of her records in the event of an emergency. Resident Activity Tracking Resident Involvement: Resident Care Provided Care Provided: Adult Hospital Medicine
[2025-09-12] MEDS: REMOVE NICODERM PATCH SCH (12:24)
[2025-09-12] MEDS: ENOXAPARIN 100 MG/1ML SYR SQ ONE (12:24)
[2025-09-12] MEDS: ASPIRIN 81 MG ECTAB PO SCH (12:26)
[2025-09-12] MEDS: VANCOMYCIN HCL 1,250 MG in SODIUM CHLORIDE 0.9% 250 ML IV SCH (12:33)
[2025-09-12] MEDS: METOPROLOL SUCC 25MG EXT REL TAB PO SCH (13:01)
[2025-09-12 13:19] VITALS: PULSE 66; RESP 18; O2SAT 97
[2025-09-12] MEDS ORDERED: REMOVE NICODERM PATCH SCH (20:59)
[2025-09-12] MEDS ORDERED: cefTRIAXone SODIUM 2,000 MG/50 ML BAG IV SCH (21:00)
[2025-09-13] MEDS ORDERED: VANCOMYCIN LEVEL ONE (09:00)
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
== END 2025-09-12 15:20 | disposition home or self-care (01) ==
LOC: 3N 17:15 → ED 17:15 → SUATTDRO 20:53 → 3N 21:58